=== PATIENT | male | born 1955 | race African-American/Black ===

== ENCOUNTER 2016-07-31 21:44 | Inpatient (IN) | payer OTHER, MEDICAID ==
[~2016-07-31] VITALS: Ht 175.3 cm; Wt 111.0 kg
--- NOTE | 2016-07-31 21:49 | ERA ---
ER Documentation Chief Complaint Date/Time DATE: 07/31/16 TIME: 21:49 Chief Complaint Nausea vomiting and diarrhea HPI The patient is a 60-year-old male, presenting to the ER because of nausea, vomiting, diarrhea for the last 10 days, denies abdominal pain. He denies any hematemesis or hematochezia. Denies fever, chills, neck pain, chest pain, dyspnea, abdominal pain, dyspnea, diarrhea. The EMS gave him Zofran IV for nausea then check his glucose that was only 42, he was therefore treated with glucose gel. He does not smoke, has been drinking, denies illicit drug denies recent traveling Past medical history: Hypertension, hypothyroidism Past surgical history: None ROS All systems reviewed and are negative except as per history of present illness. Allergies Allergies: Coded Allergies: No Known Drug Allergies (Verified Allergy, Unknown, 07/31/16) Physical Exam Vitals Vital Signs Date Time Temp Pulse Resp B/P Pulse Ox O2 Delivery O2 Flow Rate FiO2 08/01/16 01:29 97.4 80 18 121/60 97 Nasal Cannula 07/31/16 22:00 97.2 91 18 141/64 98 Physical Exam Const: No acute distress. Head: Atraumatic. Eyes: Normal Conjunctiva. ENT: Normal External Ears, Nose and Mouth. Neck: Full range of motion. No meningismus. Resp: Clear to auscultation bilaterally. Cardio: Regular rate and rhythm, no murmurs. Abd: Soft, non distended, normal bowel sounds, non tender. Skin: No petechiae or rashes. Back: No midline or flank tenderness. Ext: No cyanosis, or edema. Neur: Awake and alert. No focal deficit Psych: Normal Mood and Affect. Result Diagram: 07/31/16221607/31/162216 Results 24 hrs Laboratory Tests Test 07/31/16 21:50 07/31/16 22:17 07/31/16 22:22 08/01/16 00:37 Bedside Glucose 48mg/dL 142mg/dL White Blood Count 8.010^3/ul Red Blood Count 2.9910^6/ul Hemoglobin 9.9g/dl Hematocrit 31.2% Mean Corpuscular Volume 104.3fl Mean Corpuscular Hemoglobin 33.1pg Mean Corpuscular Hemoglobin Concent 31.7g/dl Red Cell Distribution Width 15.4% Platelet Count 27991^3/UL Mean Platelet Volume 10.4fl Neutrophils % 71.0% Lymphocytes % 14.7% Monocytes % 13.3% Eosinophils % 0.3% Basophils % 0.1% Nucleated Red Blood Cells % 1.3/100WBC Neutrophils # 5.710^3/ul Lymphocytes # 1.210^3/ul Monocytes # 1.110^3/ul Eosinophils # 0.010^3/ul Basophils # 0.010^3/ul Nucleated Red Blood Cells # 0.110^3/ul Prothrombin Time 15.1Sec Prothrombin Time Ratio 1.2 INR International Normalized Ratio 1.18 Activated Partial Thromboplast Time 35.1Sec Sodium Level 140mmol/L Potassium Level 3.3mmol/L Chloride Level 104mmol/L Carbon Dioxide Level < 5mmol/L Anion Gap 34 Blood Urea Nitrogen 36mg/dl Creatinine 3.56mg/dl Glucose Level 139mg/dl Calcium Level 8.3mg/dl Total Bilirubin 0.0mg/dl Direct Bilirubin 0.00mg/dl Indirect Bilirubin 0.0mg/dl Aspartate Amino Transf (AST/SGOT) 180IU/L Alanine Aminotransferase (ALT/SGPT) 61IU/L Alkaline Phosphatase 135IU/L Total Protein 9.5g/dl Albumin 4.9g/dl Globulin 4.60g/dl Albumin/Globulin Ratio 1.06 Lipase 183U/L Urine Opiates Screen NEGATIVE Urine Barbiturates NEGATIVE Urine Amphetamines Screen NEGATIVE Urine Benzodiazepines Screen NEGATIVE Urine Cocaine Screen NEGATIVE Urine Cannabinoids NEGATIVE Ethyl Alcohol Level 131.0mg/dl Bedside Urine pH (LAB) 5.0 Bedside Urine Protein (LAB) 3+ Bedside Urine Glucose (UA) Negative Bedside Urine Ketones (LAB) 1+ Bedside Urine Blood 3+ Bedside Urine Nitrite (LAB) Negative Bedside Urine Leukocyte Esterase (L Negative Test 08/01/16 01:17 Bedside Glucose 86mg/dL Current Medications Medications (Trade) Dose Ordered Sig/James Route PRN Reason Start Time Stop Time Status Last Admin Dose Admin Ondansetron HCl (Zofran Inj) 4 mg ONCE STAT IV 07/31/16 21:58 07/31/16 21:59 DC 07/31/16 22:19 Dextrose (D50w Syringe) 50 ml ONCE ONCE IV 07/31/16 22:00 07/31/16 22:01 DC 07/31/16 22:08 Acetaminophen/ Hydrocodone Bitart (Caldwell (10/325)) 1 tab ONCE ONCE PO 08/01/16 01:00 08/01/16 01:01 DC 08/01/16 01:00 Ondansetron HCl (Zofran Odt) 4 mg ONCE ONCE ODT 08/01/16 00:50 08/01/16 00:51 DC 08/01/16 01:00 Procedures/MDM EKG: Read by emergency physician Rate/Rhythm: Normal Sinus Rhythm 85 beats/min QRS, ST, T-waves: No ST elevation, no T inversion, first-degree AV block, prolonged QT, incomplete right bundle branch block, inferior ST and T abnormality Impression: Abnormal EKG MEDICAL MAKING DECISION: The patient is a 60-year-old male, presenting with acute hypoglycemia, acute vomiting diarrhea, acute hypokalemia, acute kidney injury, acute alcohol abuse . He was treated with Zofran 4 mg IV for nausea, Accu-Chek remained low in the ER at 48, he was therefore treated with 1 amp of D50 IV, Caldwell 10 mg for his discomfort with good response. The differential diagnoses considered include but are not limited to esophagitis , cholelithiasis, cholecystitis, cystitis, pancreatitis, hepatitis, gastritis, peptic ulcer disease, gastric ulcer, appendicitis, diverticulitis, cholangitis, choledocholithiasis, partial small bowel obstruction. Departure Diagnosis: Primary Impression: Hypoglycemia Additional Impressions: Vomiting and diarrhea Hypokalemia Acute kidney injury Alcohol abuse Anemia Abnormal LFTs Condition: Stable Comments I discussed the findings with the patient. I discussed the patient with the on- call hospitalist Dr. Willson at 12:40 AM who was made aware of the lab, the treatment, the patient condition. The patient is admitted to telemetry BRUCE ZUÑIGA MD July 31, 2016 21:49
[2016-07-31] MEDS ORDERED: DEXTROSE 50% 50 ML SYRINGE ONE (21:52)
[2016-07-31] MEDS ORDERED: ONDANSETRON 4 MG INJ IV STA (21:58)
[2016-07-31] MEDS ORDERED: DEXTROSE 50% 50 ML SYRINGE IV ONE (22:00)
[2016-07-31 22:31] LABS: ADD SCAN DIFF NO
[2016-07-31 22:32] LABS: BASOPHILS % 0.1 % (0.0-2.0); EOSINOPHILS % 0.3 % (0.0-7.0); HEMATOCRIT 31.2 % (42.0-52.0); HEMOGLOBIN 9.9 g/dl (14.0-18.0); LYMPHOCYTES # 1.2 10^3/ul (0.8-2.9); LYMPHOCYTES % 14.7 % (15.0-51.0); MEAN CORPUSCULAR HEMOGLOBIN 33.1 pg (29.0-33.0); MEAN CORPUSCULAR HGB CONC 31.7 g/dl (32.0-37.0); MEAN CORPUSCULAR VOLUME 104.3 fl (82.0-101.0); MEAN PLATELET VOLUME 10.4 fl (7.4-10.4); MONOCYTE # 1.1 10^3/ul (0.3-0.9); MONOCYTES % 13.3 % (0.0-11.0); NEUTROPHIL # 5.7 10^3/ul (1.6-7.5); NUCLEATED RED BLOOD CELLS # 0.1 10^3/ul (0.0-0.0); NUCLEATED RED BLOOD CELLS% 1.3 /100WBC (0.0-0.0); PLATELET COUNT 172 10^3/UL (140-415); RED BLOOD COUNT 2.99 10^6/ul (4.70-6.10); RED CELL DISTRIBUTION WIDTH 15.4 % (11.5-14.5)
[2016-07-31 22:47] LABS: INR 1.18; PROTIME 15.1 Sec (12.2-14.2); PT RATIO 1.2
[2016-07-31 22:48] LABS: PARTIAL THROMBOPLASTIN TIME 35.1 Sec (25.0-35.0)
[2016-07-31 22:57] LABS: ALBUMIN 4.9 g/dl (3.3-4.9); CHLORIDE 104 mmol/L (97-110); SODIUM 140 mmol/L (135-144)
[2016-07-31 22:58] LABS: POTASSIUM 3.3 mmol/L (3.5-5.1)
[2016-07-31 23:00] LABS: ALANINE AMINOTRANSFERASE 61 IU/L (13-69); ALBUMIN/GLOBULIN RATIO 1.06; ALKALINE PHOSPHATASE 135 IU/L (42-121); ASPARTATE AMINO TRANSFERASE 180 IU/L (15-46); BLOOD UREA NITROGEN 36 mg/dl (7-20); CREATININE 3.56 mg/dl (0.61-1.24); GLUCOSE 139 mg/dl (70-220); TOTAL PROTEIN 9.5 g/dl (6.1-8.1)
[2016-07-31 23:01] LABS: CALCIUM 8.3 mg/dl (8.4-10.2)
[2016-07-31 23:26] LABS: ANION GAP 34 (8-16)
[2016-07-31 23:28] LABS: CARBON DIOXIDE < 5 mmol/L (21-31)
[2016-08-01] VITALS (81 sets, daily range): BP systolic 67–177; BP diastolic 40–82; PULSE 44–97; RESP 14–32; TEMP 97.4; Ht 175.3 cm; Wt 111.0 kg
[2016-08-01 00:36] LABS: URINE BLOOD (Dip) POC 3+ (NEGATIVE)
[2016-08-01] MEDS ORDERED: ONDANSETRON (ODT) 4 MG TAB ODT ONE (00:50)
[2016-08-01] MEDS ORDERED: HYDROCODONE/APAP (10/325) TAB PO ONE (01:00)
[2016-08-01 01:44] LABS: BARBITURATES NEGATIVE (NEGATIVE); BENZODIAZEPINES NEGATIVE (NEGATIVE); CANNABINOIDS NEGATIVE (NEGATIVE); COCAINE NEGATIVE (NEGATIVE); OPIATES NEGATIVE (NEGATIVE)
[2016-08-01] MEDS ORDERED: ONDANSETRON 4 MG INJ IV PRN (03:00)
[2016-08-01] MEDS ORDERED: METOCLOPRAMIDE 10 MG INJ IV PRN (03:00)
[2016-08-01] MEDS ORDERED: NACL 0.9% 3 ML SYG IV SCH (03:00)
--- NOTE | 2016-08-01 03:05 | RADRPT ---
PROCEDURE: CT ABDOMEN/PELVIS WITHOUT CONTRAST CLINICAL INDICATION: 60-year-old male with abdominal pain, nausea, vomiting and diarrhea. TECHNIQUE: The study was performed utilizing a [employer]3 TV VCT 64-slice CT scanner. Direct axia l sections were obtained through the abdomen and pelvis without the use of intravenous contrast mate rial. Sagittal and coronal reformations were obtained. One or more of the following dose reduction t echniques were utilized: automated exposure control, adjustment of the mA and/or kV according to pat ient's size or use of iterative reconstruction technique. The images [facility] CTD/vol = 42.1 mGy; Total Exam DLP = 1816.3 mGy-cm. COMPARISON: None. FINDINGS: There is mild bibasilar subsegmental atelectasis. There is no evidence for significant pleural effu sheree. The liver has a normal contour with increased size having a maximal length of 29.7 cm. There is marked diffuse decreased density throughout the liver consistent with fatty infiltration but wit hout focal areas of abnormal density. No intrahepatic nor extrahepatic biliary ductal dilatation is seen. The gallbladder has diffuse increased density most likely representing sludge without evidence for calcified stones with a thickened wall measuring up to 5.8 mm but without pericholecystic fluid . The pancreas is without areas of abnormal attenuation. The spleen is identified and has a normal size without abnormal density. The adrenal glands are unremarkable. The kidneys are without abnorma l density. No hydroureteronephrosis nor nephroureterolithiasis is evident. The urinary bladder conta ins a small volume of urine with a thickened wall measuring up to 15 mm. The stomach is distended with fluid. There are mildly dilated fluid-filled loops of small bowel without transition point. T here is marked diffuse thickening of the colon without obstruction. Multiple small diverticula are seen within the descending and sigmoid colon without surrounding inflammatory changes. There is no e vidence for bowel obstruction. The appendix is visualized and is without abnormal thickening or ananya rounding inflammatory reaction. The prostate is not enlarged. There is no significant pelvic free fl uid. The aortoiliac vessels calcified but without aneurysmal dilatation. Degenerative changes are pr esent within the spine. IMPRESSION: 1. Hepatomegaly with marked fatty infiltration. 2. Sludge within the gallbladder with thickened wall. 3. Distended fluid filled stomach with mild fluid throughout the small bowel and marked thickening of the colon without obstruction suggestive of a enterocolitis. 4. Mild descending and sigmoid colon diverticulosis. 5. No CT evidence for appendicitis. 6. Vascular calcifications. 7. Degenerative changes within the spine. .Bk Krueger MD, Date Time Electronically viewed and signed by .Bk Krueger MD, on 08/01/2016 03:04 .Serjio/
[2016-08-01 03:31] LABS: ACETAMINOPHEN < 10.0 ug/ml (10.0-30.0); SALICYLATE < 1.0 mg/dl (5.0-30.0)
--- NOTE | 2016-08-01 04:02 | RADRPT ---
PROCEDURE: US Retroperitoneum. CLINICAL INDICATION: Renal failure. TECHNIQUE: Multiple sonographic images of the retroperitoneum were obtained. Evaluation of the ki dneys and bladder was performed using a curved array transducer. The images were reviewed on a PACS workstation. COMPARISON: CT from the same day FINDINGS: The right kidney measures 10 centimeters and the left kidney measures 9.7 centimeters. No hydronep hrosis or renal calculi are seen. The kidneys are normal in echogenicity. The bladder was near ly empty. IMPRESSION: Unremarkable ultrasound the kidneys and bladder.. RPTAT: HLBE Physician Klaudia Date Time Electronically viewed and signed by Physician Klaudia on 08/01/2016 04:02 KALLI/
[2016-08-01 04:10] LABS: THYROID STIMULATING HORMONE 21.7 MIU/L (0.465-4.680)
[2016-08-01 04:11] LABS: T3 UPTAKE 29.6 % (23.5-40.5)
[2016-08-01] MEDS: SOD CHLORIDE 0.9% 1,000 ML IV SCH ×2 (04:37→09:25)
--- NOTE | 2016-08-01 05:17 | HP ---
Date/Time of Note Date/Time of Note DATE: 08/01/16 TIME: 04:50 Assessment/Plan VTE Prophylaxis VTE Prophylaxis Intervention: heparin Assessment/Plan Chief Complaint/Hosp Course This is a 60-year-old male being admitted to the telemetry service for: #1 Metabolic acidosis: Gastrointestinal intestinal losses versus renal losses versus other etiology. At the current time will provide patient with IV fluid hydration with normal saline, bolus and maintenance.. Will consult nephrology for further fluid management as well as electrolyte management. Serial lactate levels. #2 acute kidney failure: Creatinine is 3.5. Patient denies any history of any kidney issues and there are no previous records available at this time. We will continue IV fluid hydration this time. We will order urine chemistry labs. Will also order renal ultrasound. Will consult nephrology. #3 hypoglycemia: Patient denies any previous history of diabetes. He was given an amp of D50 in the ER which subsequently increased his blood sugars 230. We will continue to monitor his blood sugars. Will order C-peptide and insulin levels to assess for any underlying etiology of hyper insulin secretion. In the setting of the patient having acute kidney injury as well as GI losses and not eating for the last 10 days this very well likely could be related to that. #4: Persistent diarrhea: We will continue IV fluid hydration at this time. We will check stool studies for ova and parasites and fecal occult blood. Patient denies any recent antibiotic use. However we will check a C. difficile. Fecal leukocytes: Consult GI. Consider antibiotics if indicated. #5 Macrocytic anemia: Hemoglobin right now is 9.9 with an MCV of 104. Patient does have a history of alcohol use though he states he only drinks occasionally. However on admission his alcohol level was 131. Will check a vitamin B12 and folate level. #6 Alcohol use: Patient denies that he uses excessive amounts of alcohol as he states he only drinks about 4 beers a week. On admission his blood alcohol level is 131. Right now will give patient banana bag daily. Monitor for signs of any DTs. Ativan as needed. #7 hypothyroidism: We will check a TSH level and thyroid studies. Patient currently does not recall medications he is on will confirm in the morning with the patient. #8 gout: Check uric acid level. #9 hypokalemia: Replete #10 DVT and GI prophylaxis: Heparin subcu, Protonix Problems: HPI/ROS Admit Date/Time Admit Date/Time August 01, 2016 at 00:50 Hx of Present Illness Chief complaint: Diarrhea 10 days, vomiting 1 day The patient is a 60-year-old male, presenting to the ER because of nausea, diarrhea for the last 10 days and vomiting 1 day, denies abdominal pain. He denies any hematemesis or hematochezia. Denies fever, chills, neck pain, chest pain, dyspnea, abdominal pain, dyspnea, diarrhea. The EMS gave him Zofran IV for nausea then check his glucose that was only 42, he was treated with glucose gel. He denies any recent travel or sick contacts. Allergies: NKDA Medications: Patient currently does not remember his medications. ROS Const: As per HPI Eyes : No pain discharge or redness or change in visual acuity ENT: No pain, sore throat, congestion, congestion, dysphagia or discharge Respiratory: No shortness of breath, cough, sputum, wheezing, or pleuritic pain Cardiovascular: No chest pain, palpitation, PND, or edema GI : As per HPI Genitourinary: No dysuria, hematuria, flank pain , discharge or CVA tenderness Musculoskeletal: No joint pain, back pain, neck pain, restricted range of motion in neck or joints Skin: No rash, bruising or hives Neuro: No headache, dizziness, syncope, seizure, focal weakness Endocrine: No polyuria, polydipsia, temperature intolerance Psych: No hallucination, depression, anxiety or suicidal ideation PMH/Family/Social Past Medical History Hypertension, gout, hypothyroid Past Surgical History Past Surgical Hx: no surgical history Family History Significant Family History: hypertension (Mom, dad) Social History Alcohol Use: occasionally Smoking Status: Never smoker Drug Use: none Exam/Review of Systems Vital Signs Vitals Vital Signs Date Time Temp Pulse Resp B/P Pulse Ox O2 Delivery O2 Flow Rate FiO2 08/01/16 04:33 74 19 101/62 94 08/01/16 03:26 Room Air 08/01/16 01:29 97.4 Exam Exam General: This is a 60-year-old male laying comfortably in bed he is somnolent however he is easily arousable. HEENT: Atraumatic, normocephalic. The pupils are equal, round and reactive. Extraocular motor are intact Neck: Supple with full range of motion. No rigidity or meningismus Chest: Nontender Lungs: Clear to auscultation bilaterally no crackles rales or wheezing Heart: Normal S1-S2, Regular rhythm and rate. No overt murmurs appreciated Abdomen: Soft, mild tenderness to palpation of the left upper quadrant, normal bowel sounds. Extremities: Normal to inspection, no edema no cyanosis Neurologic: Normal mental status, speech normal, cranial nerves II through XII are intact, motor and sensory are intact, no focal weakness Additional Comments EKG: Rate/Rhythm: Normal Sinus Rhythm 85 beats/min QRS, ST, T-waves: No ST elevation, no T inversion, first-degree AV block, prolonged QT, incomplete right bundle branch block, inferior ST and T abnormality As per ED physician augmentation Labs Result Diagram: 07/31/16221607/31/162216 Medications Medications Current Medications Sodium Chloride (NS) 1,000 ml @ 75 mls/hr [id number] IV Last administered on 08/01t 04:37; Admin Dose 75 MLS/HR; Start 08/01/16 at 02:41 Lorazepam (Ativan) 0.5 mg Q6H PRN IV ANXIETY; Start 08/01/16 at 03:00 Ondansetron HCl (Zofran Inj) 4 mg Q6H PRN IV NAUSEA AND/OR VOMITING; Start at 03:00 Metoclopramide HCl (Reglan) 10 mg Q6H PRN IV NAUSEA AND/OR VOMITING; Start at 03:00 Acetaminophen (Tylenol Tab) 650 mg Q6H PRN PO PAIN LEVEL 1-3 OR FEVER; Start at 03:00 Pantoprazole (Protonix Iv) 40 mg DAILY@06 IV ; Start 08/01/16 at 06:00 Heparin Sodium (Porcine) (Heparin (5000 Units/0.5 ml)) 5,000 unit Q8 SC ; Start 08/01/16 at 06:00 RIOS BERNAL August 01, 2016 05:00
--- NOTE | 2016-08-01 05:54 | EN ---
Date/Time of Note Date/Time of Note DATE: 08/01/16 TIME: 05:50 ER Progress Note CODE BLUE The patient is a 60-year-old male went to cardiac arrest. I was called to intubate the patient. His physician Dr. Willson was at the bedside On arrival, CPR was in progress. He did receive epinephrine 1 mg IV due to asystole, 1 D50 IV and 1 NaHCO3 IV with ROSC. Please see the resuscitation record for detailed information He was intubated immediately with any difficulty Endotracheal Intubation by me: Pre assessment performed. See preceding note for details. Pre-oxygenation performed with 100% oxygen RSI: Performed w/o complication or hypoxic events. Medications as ordered. Blade: [place] Scope ET Tube: 7.5 cm Depth: 23 cm at the lip Intubation confirmed by colorimetric CO2, equal breath sounds, quiet over the stomach. Chest X-ray is pending and will be reviewed by the admitting physician Dr. Willson Impression: Acute cardiac arrest Disposition: I will transfer the care back to his physician Dr. Willson who was at the bedside. BRUCE ZUÑIGA MD August 01, 2016 05:54
[2016-08-01] MEDS ORDERED: PANTOPRAZOLE 40 MG INJ IV SCH (06:00)
[2016-08-01] MEDS ORDERED: POTASSIUM CHLORIDE 250 ML IV ONE (06:30)
[2016-08-01] MEDS ORDERED: ACETAMINOPHEN 650 MG SUPP PR PRN (06:30)
--- NOTE | 2016-08-01 06:45 | RADRPT ---
PROCEDURE: XR Chest. CLINICAL INDICATION: POST INTUBATION TECHNIQUE: Single frontal view of the chest was obtained COMPARISON: None FINDINGS: An endotracheal tube and nasogastric tube are present in satisfactory position. The heart is enlarged with fullness in the superior mediastinum. This is likely exaggerated by the supine AP nature of the film. There are bilateral perihilar infiltrates. The pleural spaces are clear. IMPRESSION: 1. Endotracheal tube and nasogastric tube in satisfactory position. 2. Cardiomegaly with fullness in the superior mediastinum. This is likely exaggerated by the supin e AP nature of the film. 3. Bilateral perihilar infiltrates. RPTAT:AAJJ Physician Aiden Date Time Electronically viewed and signed by Physician Aiden on 08/01/2016 06:45 /
[2016-08-01] MEDS ORDERED: NA BICARBONATE 8.4% 50 ML SYG ONE ×2 (06:50→07:00)
[2016-08-01] MEDS: SODIUM BICARBONATE (IV ADD) 150 MEQ in DEXTROSE 5% 850 ML IV SCH ×2 (06:56→18:14)
[2016-08-01] MEDS ORDERED: ROCURONIUM 50 MG INJ ONE (07:00)
[2016-08-01] MEDS ORDERED: POTASSIUM CL ONE (07:00)
[2016-08-01] MEDS ORDERED: ETOMIDATE 20 MG INJ ONE (07:00)
[2016-08-01] MEDS ORDERED: SOD CHLORIDE 0.9% 1,000 ML IV ONE (07:00)
[2016-08-01] MEDS ORDERED: DEXTROSE 50% 50 ML SYRINGE ONE (07:00)
[2016-08-01] MEDS ORDERED: SW ONE (07:00)
[2016-08-01] MEDS ORDERED: EPINEPHrine 0.1 MG/ML SYG ONE (07:00)
[2016-08-01] MEDS ORDERED: NA BICARBONATE 8.4% 50 ML SYG IV ONE (07:00)
[2016-08-01 09:00] LABS: AADO2 Arterial 604.9 mmHg (7.0-24.0); Allen Test ACCEPTAB; Arterial Base Excess -17.6 mmol/L (-3.0-3); Arterial COHb 0.3 % (0.0-3.0); Arterial Fraction of Oxyhgb 87.8 % (93.0-99.0); Arterial MetHb 0.8 % (0.0-1.5); Arterial Total Hemglobin 10.1 g/dl (12.0-18.0); MODE VENT - AC
[2016-08-01] MEDS ORDERED: MULTIVITAMINS 10 ML, THIAMINE 100 MG, FOLIC ACID 1 MG in SOD CHLORIDE 0.9% 1,000 ML IVPB SCH (09:00)
[2016-08-01] MEDS ORDERED: NA BICARBONATE 8.4% 50 ML SYG IV STA (09:07)
[2016-08-01] MEDS: PANTOPRAZOLE 40 MG INJ IV SCH ×2 (09:18→17:36)
[2016-08-01 09:25] LABS: ADD SCAN DIFF NO
[2016-08-01 09:36] LABS: ABNORMAL IP MESSAGE 1; HEMATOCRIT 27.2 % (42.0-52.0); HEMOGLOBIN 9.1 g/dl (14.0-18.0); MEAN CORPUSCULAR HEMOGLOBIN 34.3 pg (29.0-33.0); MEAN CORPUSCULAR HGB CONC 33.5 g/dl (32.0-37.0); MEAN CORPUSCULAR VOLUME 102.6 fl (82.0-101.0); MEAN PLATELET VOLUME 10.4 fl (7.4-10.4); PLATELET COUNT 143 10^3/UL (140-415); RED BLOOD COUNT 2.65 10^6/ul (4.70-6.10); RED CELL DISTRIBUTION WIDTH 14.8 % (11.5-14.5); WHITE BLOOD COUNT 1.4 10^3/ul (4.8-10.8)
[2016-08-01 10:00] LABS: ALBUMIN 4.2 g/dl (3.3-4.9); POTASSIUM 3.3 mmol/L (3.5-5.1)
[2016-08-01] MEDS ORDERED: NORepinephrine 8MG/250 ML (PMX 250 ML IV SCH (10:00)
[2016-08-01 10:02] LABS: CREATININE 3.48 mg/dl (0.61-1.24)
[2016-08-01 10:03] LABS: ALBUMIN/GLOBULIN RATIO 1.2; BILIRUBIN,INDIRECT 0.1 mg/dl (0-1.1); BILIRUBIN,TOTAL 0.1 mg/dl (0.2-1.3); CALCIUM 7.3 mg/dl (8.4-10.2); TOTAL PROTEIN 7.7 g/dl (6.1-8.1)
[2016-08-01 10:04] LABS: CHOL/HDL RATIO 4.5 RATIO
[2016-08-01 10:05] LABS: MAGNESIUM 0.8 mg/dl (1.7-2.5)
[2016-08-01] MEDS: PROPOFOL 100 ML IV SCH ×4 (10:13→22:54)
[2016-08-01] MEDS: HEPARIN 5,000 UNIT/0.5 ML VIAL SC SCH ×3 (10:16→22:28)
--- NOTE | 2016-08-01 10:21 | OPR ---
DATE OF OPERATION: 08/01/2016 PREOPERATIVE DIAGNOSIS: Hypotension. POSTOPERATIVE DIAGNOSIS: Hypotension. OPERATION PERFORMED: Left femoral central line placement. SURGEON: Baltazar Casillas MD ANESTHESIA: Local. CONSENT: Risks, benefits, complications, alternative therapies explained to the patient and the [facility], consent obtained. OPERATIVE TECHNIQUE: The patient was placed in supine position, prepped and draped in the usual garry rile fashion. A dilator was used to dilate the subcutaneous tissues. Central line advanced over th e dilator, secured to skin using silk sutures. The patient tolerated the procedure well. Dictated By: BALTAZAR CASILLAS MD FM/NTS Conf#: [id number] DID#: [id number]
[2016-08-01] MEDS ORDERED: MAGNESIUM SULFATE 4 GM in SOD CHLORIDE 0.9% 100 ML IV ONE (10:30)
--- NOTE | 2016-08-01 10:44 | CONS ---
DATE OF ADMISSION: 08/01/2016 DATE OF CONSULTATION: 08/01/2016 TYPE OF CONSULTATION: Nephrology. REASON FOR CONSULTATION: Acute kidney injury, severe acidemia. PHYSICIAN REQUESTING CONSULT: Fco Willson MD HISTORY OF PRESENT ILLNESS: This is a 60-year-old male with a past medical history of hypertension, history of gout, hypothyroidism who presents to [facility] with nausea, vomiting and diarrhea for 10 days. The patient, in the emergency room, stated that symptoms began several da ys ago and have progressively gotten worse. The patient upon arrival in the emergency room, had ini tial laboratory data drawn, which showed sodium 140, potassium 3.3, BUN 36, creatinine 3.56. White count 8.0, hemoglobin 9.9. In the emergency room, the patient was given IV fluids, sodium bicarbona te. The patient was subsequently admitted to telemetry. However, early in the morning, the patient underwent a cardiac arrest. He was given epinephrine 1 mg with spontaneous return of circulation. The patient was subsequently intubated and transferred over to the intensive care unit. There have been no reports of hemoptysis, hematemesis or hematochezia. In terms of the patient's renal history, the patient's baseline renal function is unknown. On admis sheree, the patient had a creatinine of 3.56 mg/dL. A repeat renal panel is pending to see if there w as any significant improvement during resuscitation. The patient has minimal urinary output in his Silver catheter. There have been no reports of any rashes or frothy urine. PAST MEDICAL HISTORY: As stated above, history of hypertension, history of gout. FAMILY HISTORY: Unknown. SOCIAL HISTORY: Occasional alcohol use. ALLERGIES: NO KNOWN DRUG ALLERGIES. PAST SURGICAL HISTORY: Unknown. MEDICATIONS: None. REVIEW OF SYSTEMS: Unable to do adequate review of systems as patient is obtunded. Pertinent posit karime as obtained by reviewing medical records, speaking to hospital staff, stated in the HPI, otherw ise negative. PHYSICAL EXAMINATION: VITAL SIGNS: Blood pressure is 85/48, respirations 20, pulse 56, temperature 97.0. HEENT: Head is normocephalic. Pupils are pinpoint but reactive. NECK: Supple. HEART: Regular rate. LUNGS: Show diminished breath sounds at the bases. ABDOMEN: Soft, nontender to palpation. Positive obesity. EXTREMITIES: Negative for clubbing, cyanosis. No edema. DERMATOLOGIC: No rashes. MUSCULOSKELETAL: No joint effusions. NEUROLOGIC: The patient is obtunded. IMAGING STUDIES: Chest x-ray shows cardiomegaly with fullness superior mediastinum, perihilar infil trates. CT scan of the abdomen and pelvis shows hepatomegaly, fatty infiltration, sludge in gallbla dder, distended stomach, possible enterocolitis. Renal ultrasound shows unremarkable ultrasound of the kidneys, no hydronephrosis. LABORATORY DATA: Shows white count 8.0, hemoglobin 9.9, hematocrit 31.2, platelet count is 172. So dium 140, potassium 3.3, chloride 104, BUN 36, creatinine 3.56, bicarbonate less than 5. Urinalysis shows urine sodium less than 13, positive +3 protein. ASSESSMENT AND PLAN: This is a 60-year-old male who presents with: 1. Oliguric acute kidney injury with unknown baseline creatinine. Etiology is secondary to hemodyn amics, volume depletion, possible tubular injury. The patient's initial urinalysis showed a urine s odium of less than 13, suggestive of prerenal state. Additionally, renal ultrasound shows normal ki dneys, no evidence of obstruction. The patient did have a code arrest; therefore, tubular injury ma y also have occurred. Plan at this point is to continue the patient on aggressive IV hydration. We will continue bicarbonate drip at 125 mL/hour. We will repeat a renal panel, repeat urine electrol ytes. We will continue to monitor I's and O's closely. Otherwise, continue supportive care, renall y dose all meds, avoid nephrotoxins. No immediate need for renal replacement therapy at this time. 2. Hypokalemia. The patient is status post potassium chloride. Continue to monitor. 3. Anion gap metabolic acidosis. Etiology may be secondary to acute kidney injury. We will, [facility], check lactic acid level. Continue bicarbonate drip. We will follow up an ABG. 4. Status post code arrest, underlying etiology is unclear, if this is from electrolyte versus prim gian cardiac. We will continue current medical management. Check serial troponins, check 2D echo. Follow up with cardiology. 5. Ventilator-dependent respiratory failure. Vent settings have been reviewed. We will follow up an ABG. 6. Acute diarrhea. Etiology may be secondary to gastroenteritis. Continue to monitor. Consider G I evacuation. 7. Acute encephalopathy. Etiology is toxic metabolic. Continue to monitor. Evaluate for anoxic i njury. 8. Hypothyroidism. Follow up TSH level. Continue Synthroid. 9. History of alcohol use. Monitor closely for any signs of delirium tremens. 10. Hypoglycemia. We will continue to observe. 11. Anemia. Continue to monitor hemoglobin and hematocrit levels. 12. Mineral bone disorder. Monitor calcium and phosphorus levels. Thank you, Dr. Willson, for this interesting consultation. It will be a pleasure to follow the ezio ent with you throughout the hospital course. Dictated By: BALDOMERO TOVAR/NTS Conf#: [id number] DID#: [id number]
--- NOTE | 2016-08-01 11:39 | PN ---
Date/Time of Note Date/Time of Note DATE: 08/01/16 TIME: 11:26 Assessment/Plan VTE Prophylaxis VTE Prophylaxis Intervention: SCD's Lines/Catheters IV Catheter Type (from Nrs): Saline Lock Urinary Cath still in place: Yes Reason Cath still needed: other (indicate) Assessment/Plan Chief Complaint/Hosp Course ASSESSMENT AND PLAN: 1. Status post code arrest, underlying etiology is unclear, if this is from electrolyte versus primary cardiac. We will continue current medical management. Follow-up serial troponins, check 2D echo. Follow up with cardiology. 2. Ventilator dependent respiratory failure Likely secondary to #1, patient is intubated continue vent management cook chef been consulted 3. Acute kidney injury with unknown baseline creatinine. Likely secondary to volume depletion and possible tubular injury. The patient did have a code arrest; therefore, tubular injury may also have occurred. Continue aggressive IV hydration. Continue supportive care, renally dose all meds, avoid nephrotoxins. Nephrology has been consulted, follow-up his recommendations and follow-up renal panel in a.m. 4. Hypokalemia. Repleted with potassium chloride. Continue to monitor. 5. Anion gap metabolic acidosis. Likely secondary to acute kidney injury. Follow-up serial lactic acid level. Continue bicarbonate drip. We will follow up an ABG. Nephrology and pulmonology consulted 6. Acute diarrhea. Etiology may be secondary to gastroenteritis. Continue to monitor. Follow-up stool culture 7. Acute encephalopathy. Etiology is toxic metabolic versus alcohol intoxication. Continue to monitor. Follow-up CT of the brain when patient is more stable 8. Hypothyroidism. Follow up TSH level. Continue Synthroid. 9. History of alcohol use. Monitor closely for any signs of delirium tremens. Will start banana bag status post bicarbonate drip 10. Hypoglycemia. We will continue to observe. 11. Anemia. Continue to monitor hemoglobin and hematocrit levels. 12. Hypomagnesemia. Repleted We will continue monitor patient closely for recommendation management treatment as clinical course Condition: Guarded Second Cutter management and recommendation is appreciated Problems: Subjective 24 Hr Interval Summary Free Text/Dictation Patient is intubated and sedated Vent settin with FiO2 of 100% and PEEP of 8 Sedation of fentanyl Bilateral soft restraints Able to follow commands Exam/Review of Systems Vital Signs Vitals Vital Signs Date Time Temp Pulse Resp B/P Pulse Ox O2 Delivery O2 Flow Rate FiO2 08/01/16 10:45 76 25 120/61 91 Mechanical Ventilator 08/01/16 09:00 100 08/01/16 05:54 97.0 08/01/16 05:00 4.0 Exam General: The patient is morbidly obese, intubated HEENT: Atraumatic, normocephalic. The pupils are equal and round . Neck: Supple Chest: Normal Lungs: Decreased breath sounds bilateral lower lung field, crackles Heart: Normal S1-S2, Regular rhythm and rate. Abdomen: Soft , nontender, nondistended , bowel sounds are present. Extremities: Normal to inspection, +1 edema no cyanosis Neurologic: Sedated,The patient is awake and able to follow simple commands Results Result Diagram: 08/01/1690408/01/16904 Results 24 hrs Laboratory Tests Test 07/31/16 21:50 07/31/16 22:17 07/31/16 22:22 08/01/16 00:37 Bedside Glucose 48 *L 142 White Blood Count 8.0 Red Blood Count 2.99 L Hemoglobin 9.9 L Hematocrit 31.2 L Mean Corpuscular Volume 104.3 H Mean Corpuscular Hemoglobin 33.1 H Mean Corpuscular Hemoglobin Concent 31.7 L Red Cell Distribution Width 15.4 H Platelet Count 172 Mean Platelet Volume 10.4 Neutrophils % 71.0 Lymphocytes % 14.7 L Monocytes % 13.3 H Eosinophils % 0.3 Basophils % 0.1 Nucleated Red Blood Cells % 1.3 H Neutrophils # 5.7 Lymphocytes # 1.2 Monocytes # 1.1 H Eosinophils # 0.0 Basophils # 0.0 Nucleated Red Blood Cells # 0.1 H Prothrombin Time 15.1 H Prothrombin Time Ratio 1.2 INR International Normalized Ratio 1.18 Activated Partial Thromboplast Time 35.1 H Urine Osmolality Urine Random Sodium < 13 L Sodium Level 140 Potassium Level 3.3 L Chloride Level 104 Carbon Dioxide Level < 5 *L Anion Gap 34 H Blood Urea Nitrogen 36 H Creatinine 3.56 H Glucose Level 139 Calcium Level 8.3 L Total Bilirubin 0.0 L Direct Bilirubin 0.00 Indirect Bilirubin 0.0 Aspartate Amino Transf (AST/SGOT) 180 H Alanine Aminotransferase (ALT/SGPT) 61 Alkaline Phosphatase 135 H Total Protein 9.5 H Albumin 4.9 Globulin 4.60 H Albumin/Globulin Ratio 1.06 Lipase 183 Urine Opiates Screen NEGATIVE Urine Barbiturates NEGATIVE Urine Amphetamines Screen NEGATIVE Urine Benzodiazepines Screen NEGATIVE Urine Cocaine Screen NEGATIVE Urine Cannabinoids NEGATIVE Ethyl Alcohol Level 131.0 Bedside Urine pH (LAB) 5.0 Bedside Urine Protein (LAB) 3+ H Bedside Urine Glucose (UA) Negative Bedside Urine Ketones (LAB) 1+ H Bedside Urine Blood 3+ H Bedside Urine Nitrite (LAB) Negative Bedside Urine Leukocyte Esterase (L Negative Test 08/01/16 01:17 08/01/16 02:44 08/01/16 03:58 08/01/16 05:35 Bedside Glucose 86 81 91 Osmolality Thyroid Stimulating Hormone (TSH) 21.700 H Free Thyroxine Index 0.24 L Thyroxine (T4) 0.8 *L Triiodothyronine (T3) Uptake 29.6 Random Cortisol 41.8 Salicylates Level < 1.0 L Acetaminophen Level < 10.0 L Ethyl Alcohol Level 60.0 Test 08/01/16 08:56 08/01/16 09:05 Blood Gas Specimen Source Blood arterial Arterial Blood Date Drawn 08/01/2016 8:40:22 AM Arterial Blood pH (Temp corrected) 7.051 *L Arterial Blood pCO2 (Temp correct) 44.3 Arterial Blood pO2 (Temp corrected) 63.8 L Arterial Blood HCO3 12.0 L Arterial Blood Base Excess -17.6 L Arterial Blood Oxygen Saturation 88.8 L Stanley Test ACCEPTAB Arterial Blood Gas Puncture Site Right Radial Arterial Blood Carboxyhemoglobin 0.3 Arterial Blood Methemoglobin 0.8 Blood Gas A-a O2 Differential 604.9 H Oxyhemoglobin Percent 87.8 L Total Hemoglobin 10.1 L Blood Gas Temperature 37.0 Blood Gas Respiration Rate 20.0 Blood Gas Actual Respiration Rate 20 Blood Gas Modality VENT - AC FiO2 100.0 Blood Gas Tidal Volume 600.0 Blood Gas Low PEEP Setting 3.0 Blood Gas Critical Value Read Back E VAMSI VALDEZ Blood Gas Notified Whom YADIEL Blood Gas Notified Time 08/01/2016 9:00:28 AM White Blood Count 1.4 #L Red Blood Count 2.65 L Hemoglobin 9.1 L Hematocrit 27.2 L Mean Corpuscular Volume 102.6 H Mean Corpuscular Hemoglobin 34.3 H Mean Corpuscular Hemoglobin Concent 33.5 Red Cell Distribution Width 14.8 H Platelet Count 143 Mean Platelet Volume 10.4 Neutrophils % Lymphocytes % Monocytes % Neutrophils # Lymphocytes # Monocytes # Sodium Level 137 Potassium Level 3.3 L Chloride Level 104 Carbon Dioxide Level 12 L Anion Gap 24 #H Blood Urea Nitrogen 38 H Creatinine 3.48 H Glucose Level 196 Hemoglobin A1c 5.0 Lactic Acid Level 6.7 *H Calcium Level 7.3 L Magnesium Level 0.8 *L Total Bilirubin 0.1 L Direct Bilirubin 0.00 Indirect Bilirubin 0.1 Aspartate Amino Transf (AST/SGOT) 144 H Alanine Aminotransferase (ALT/SGPT) 62 Alkaline Phosphatase 102 Total Protein 7.7 # Albumin 4.2 Globulin 3.50 H Albumin/Globulin Ratio 1.20 Triglycerides Level 498 H Cholesterol Level 223 H LDL Cholesterol, Calculated 74 HDL Cholesterol 49 Cholesterol/HDL Ratio 4.5 Medications Medications Current Medications Lorazepam (Ativan) 0.5 mg Q6H PRN IV ANXIETY; Start 08/01/16 at 03:00 Ondansetron HCl (Zofran Inj) 4 mg Q6H PRN IV NAUSEA AND/OR VOMITING; Start at 03:00 Metoclopramide HCl (Reglan) 10 mg Q6H PRN IV NAUSEA AND/OR VOMITING; Start at 03:00 Acetaminophen (Tylenol Tab) 650 mg Q6H PRN PO PAIN LEVEL 1-3 OR FEVER; Start at 03:00 Heparin Sodium (Porcine) 5000 unit 5,000 unit Q8 SC Last administered on 10:16; Admin Dose 5,000 UNIT; Start 08/01/16 at 06:00 Sodium Bicarbonate/ Dextrose (Na Bicarb/D5W) 1,000 ml @ 100 mls/hr Q10H IV Last administered on 08/01/16 06:56; Admin Dose 100 MLS/HR; Start 08/01/16 at 07:00 Acetaminophen (Tylenol Supp) 650 mg Q4H PRN [place] PAIN LEVEL 1-3 OR FEVER; Start 08/01/16 at 06:30 Pantoprazole 40 mg 40 mg BID@06,18 IV Last administered on 08/01/16 09:18; Admin Dose 40 MG; Start 08/01/16 at 06:00 Propofol 100 ml @ 3.33 mls/hr Q12H IV Last administered on 08/01/16 10:13; Admin Dose 3.33 MLS/HR; Start 08/01/16 at 09:30 Norepinephrine 250 ml @ 1.875 mls/ hr TITRATE IV ; Start 08/01/16 at 10:00 Magnesium Sulfate (Magnesium Sulfate 4 Gm/100 ml) 100 ml @ 25 mls/hr ONCE ONCE IVPB Last administered on 08/01/16t 10:29; Admin Dose 25 MLS/HR; Start at 12:00; Stop 08/01/16 at 15:59 KAREN GOMEZ MD August 01, 2016 11:39
--- NOTE | 2016-08-01 11:54 | CONS ---
DATE OF ADMISSION: 08/01/2016 DATE OF CONSULTATION: REASON FOR CONSULT: Cardiac arrest, severe metabolic acidosis. HISTORY OF PRESENT ILLNESS: In summary, this is a 60-year-old gentleman who came into the emergency room yesterday with nausea, vomiting and diarrhea, mild abdominal discomfort, awake, alert and orie nted on admission, found to have severe metabolic acidosis, mild hypoglycemia. Following admission, patient became unresponsive, subsequently had cardiac arrest requiring resuscitation and transferre d to the intensive care unit, placed on mechanical ventilation and received aggressive volume resusc itation with intravenous bicarbonate. PAST MEDICAL HISTORY: Hypertension, hyperlipidemia, gout and hypothyroidism. MEDICATIONS: Per chart. ALLERGIES: NONE. SOCIAL HISTORY: Nonsmoker, occasional alcohol, no history of drug use. FAMILY HISTORY: Noncontributory. REVIEW SYSTEMS REVIEW: A 14-point review of systems currently unable to perform. PHYSICAL EXAMINATION: GENERAL: Moderately obese gentleman, intubated on mechanical ventilation, opening eyes, beginning t o follow commands. VITAL SIGNS: Temperature 98, pulse is 66, blood pressure 100/60, O2 sat 96%, FIO2 of 100%. NECK: Supple. No JVD or lymphadenopathy. CARDIAC: S1, S2, no added sounds or murmurs. CHEST: Diminished air entry bilaterally. ABDOMEN: Soft, nontender. No guarding, no rebound. EXTREMITIES: No cyanosis, clubbing. Edema +1. NEUROLOGIC: Generalized weakness. LABORATORY DATA: White count 1.4, hemoglobin 9.1, platelets of 143. Thyroxine level 0.8. TSH 21.7 . Arterial blood gas, pH 7.05, pCO2 of 44, pO2 of 63 and bicarb of 12. Sodium 140, potassium 3.3, BUN 33, creatinine 3.56. INR 1.8. Urinalysis unremarkable. Alcohol level was elevated at 131. IMPRESSION AND PLAN: 1. Acute renal failure with severe metabolic acidosis, etiology of which remains unclear, possible acute tubular necrosis injury versus prerenal. 2. Respiratory failure secondary to significant metabolic acidosis and subsequent cardiac arrest. Chest x-ray shows evidence of pulmonary edema, likely secondary to renal failure. 3. Severe hyperthyroidism by low TSH, slightly elevated TSH, low T4; will need endocrinology consult. 4. History of ETOH. 5. Incomplete data. PLAN: 1. Continue to correct metabolic acidosis with intravenous bicarbonate and aggressive volume resusc itation. 2. Renal consult. 3. Endocrinology consult. 4. CT head. 5. DVT and GI prophylaxis. Dictated By: NIKOLE FARFAN/CHARLES Conf#: [id number] DID#: [id number]
[2016-08-01 11:57] LABS: AADO2 Arterial 630.7 mmHg (7.0-24.0); Allen Test ACCEPTAB; Arterial Base Excess -11.2 mmol/L (-3.0-3); Arterial COHb 0.1 % (0.0-3.0); Arterial Fraction of Oxyhgb 57.7 % (93.0-99.0); Arterial HCO3 17.3 mmol/L (22.0-26.0); Arterial MetHb 0.7 % (0.0-1.5); Arterial Total Hemglobin 10.1 g/dl (12.0-18.0); MODE VENT - AC
[2016-08-01] MEDS ORDERED: MAGNESIUM SULFATE 4 GM/100 ML 100 ML IVPB ONE (12:00)
--- NOTE | 2016-08-01 12:14 | RADRPT ---
PROCEDURE: Right Upper Quadrant Ultrasound. CLINICAL INDICATION: elevated lfts, PT NPO TECHNIQUE: Multiple real-time images were acquired of the patient's right upper quadrant abdomen a nd retroperitoneum utilizing a high resolution transducer. COMPARISON: None FINDINGS: The liver measures 19.9 cm, and demonstrates increased echogenicity. The main portal vein is patent with proper directional flow. There is no intrahepatic biliary ductal dilatation. The extrahepatic c ommon bile duct measures 3 mm. There is mild ascites. There is no cholelithiasis. There is mild gallbladder wall thickening to 5 mm which is at least in part reactive to the ascites and due to underdistension. There is no pericholecystic fluid. The visualized pancreas is unremarkable. The right kidney measures 11.4 cm and demonstrates normal echotexture. There is no right renal calcu tawanda or hydronephrosis. The visualized abdominal aorta and IVC are grossly unremarkable. IMPRESSION: Hepatomegaly with moderate to severe fatty infiltration. Mild ascites. The main portal vein is patent with proper directional flow. No definite morphologic changes of cirrhosis are identified. Cholelithiasis without definite evidence of acute cholecystitis, as above. Normal CBD. RPTAT: EE Physician Ismael Date Time Electronically viewed and signed by Physician Ismael on 08/01/2016 12:13 /
--- NOTE | 2016-08-01 12:20 | RADRPT ---
PROCEDURE: XR Chest. CLINICAL INDICATION: PULMONARY EDEMA TECHNIQUE: Single frontal view of the chest was obtained. COMPARISON: None. FINDINGS: The tip of an endotracheal tube is noted 8.2 cm above the shelley. The tip of an enteric tube is noted in the stomach. The heart and mediastinum are within normal limits. There is a layering left pleural effusion and retrocardiac opacity due to atelectasis, infiltrate, a nd / or effusion. There is mild to moderate prominence of interstitial markings, likely due to pulmonary vascular mya estion. There is an opacity in the right lower lung zone which may be due to more focal congestive c hanges although an underlying infiltrate cannot be excluded. IMPRESSION: Layering left pleural effusion and retrocardiac opacity due to atelectasis, infiltrate, and / or eff usion. Mild to moderate pulmonary vascular congestion with a focal opacity in the right lower lung zone whi ch may be due to more focal congestive changes although an infiltrate cannot be excluded, possibly d ue to aspiration pneumonia. Clinical correlation is recommended. Endotracheal tube tip is at the thoracic inlet. Recommend advancement by 4 cm. An enteric tube is noted to project past the diaphragm and is likely in the stomach. These findings were discussed with the nurse taking care of the patient, Mellisa, over the phone on 07/04 at 12:19 PM. RPTAT: EE Physician Ismael Date Time Electronically viewed and signed by Physician Ismael on 08/01/2016 12:20 /
--- NOTE | 2016-08-01 13:00 | CONS ---
Date/Time of Note Date/Time of Note DATE: 08/01/16 TIME: 12:49 Assessment/Plan Assessment/Plan Chief Complaint/Hosp Course PEA cardiac arrest: secondary to severe metabolic acidosis. No VT/VF or EKG changes to suggest primary cardiac etiology at this time but the pt may have an underlying cardiomyopathy. Mg was very low but usually should cause VT/VF. QT mildly prolonged likely due to electrolyte abnormalities. Pt apparently was alert post code. Acute respiratory failure: intubated during code. Now with significant pulm edema/infiltrates worrisome for CHF and maybe even ARDS based on significant oxygenation issues Severe metabolic acidosis: pH remains very low and likely was the culprit for the arrest. Unresponsive to bicarb so will have HD Shock: ?septic +/- cardiogenic component though warm. On low dose levophed Acute renal failure: unclear etiology and will require HD Hypoglycemia Hypothyroidism Diarrhea/n/v/colitis -agree with HD for volume removal -echo -trend trops though expect to be elevated post code -vent management per pulm -HD per nephro Problems: Consultation Date/Type/Reason Admit Date/Time August 01, 2016 at 00:50 Date of Consultation: August 01, 2016 Type of Consultation: Cardiology Reason for Consultation Cardiac arrest Referring Provider: RIOS BERNAL Hx of Present Illness 60 yo M with a h/o hypothyroidism, alcohol use, who presented with 10 days of diarrhea/n/v and was found to have severe metabolic derangements including severe metabolic acidosis (bicarb <5, no PH initially) with hypoglycemia, hypothyroidism, acute renal failure. He was hydrated initially but sustained PEA arrest requiring intubation.ROSC was achieved. Post code pH was 7.0, CXR showed pulmonary edema/infiltrates. The pt's pH minimally improved on a bicarb drip but he remains oliguric and so he will be initiated on HD. Also oxygenation has been a major issue as he is currently being manually ventilated. unable to obtain Past Surgical History Past Surgical Hx: no surgical history Social History Alcohol Use: occasionally Smoking Status: Never smoker Drug Use: none Exam/Review of Systems Vital Signs Vitals Vital Signs Date Time Temp Pulse Resp B/P Pulse Ox O2 Delivery O2 Flow Rate FiO2 08/01/16 11:30 69 21 86/44 71 Mechanical Ventilator 08/01/16 09:00 100 08/01/16 05:54 97.0 08/01/16 05:00 4.0 Exam Constitutional: No alert Head: atraumatic, normocephalic ENMT: intubated Neck: No jvd (unable to assess ) Respiratory: crackles/rales, diminished breath sounds, No clear to auscultation Cardiovascular: regular rate and rhythm, No edema, No systolic murmur Gastrointestinal: soft, No distended Extremities: other (warm) Neurological: No nl mental status, No nl speech Skin: No rash or lesions Results EKG: sinus, nonspecific TW changes and nonspecific IVCD, no ST elevations Result Diagram: 08/01/1690408/01/16904 Results 24 hrs Laboratory Tests Test 07/31/16 21:50 07/31/16 22:17 07/31/16 22:22 08/01/16 00:37 Bedside Glucose 48 *L 142 White Blood Count 8.0 Red Blood Count 2.99 L Hemoglobin 9.9 L Hematocrit 31.2 L Mean Corpuscular Volume 104.3 H Mean Corpuscular Hemoglobin 33.1 H Mean Corpuscular Hemoglobin Concent 31.7 L Red Cell Distribution Width 15.4 H Platelet Count 172 Mean Platelet Volume 10.4 Neutrophils % 71.0 Lymphocytes % 14.7 L Monocytes % 13.3 H Eosinophils % 0.3 Basophils % 0.1 Nucleated Red Blood Cells % 1.3 H Neutrophils # 5.7 Lymphocytes # 1.2 Monocytes # 1.1 H Eosinophils # 0.0 Basophils # 0.0 Nucleated Red Blood Cells # 0.1 H Prothrombin Time 15.1 H Prothrombin Time Ratio 1.2 INR International Normalized Ratio 1.18 Activated Partial Thromboplast Time 35.1 H Urine Osmolality Urine Random Sodium < 13 L Sodium Level 140 Potassium Level 3.3 L Chloride Level 104 Carbon Dioxide Level < 5 *L Anion Gap 34 H Blood Urea Nitrogen 36 H Creatinine 3.56 H Glucose Level 139 Calcium Level 8.3 L Total Bilirubin 0.0 L Direct Bilirubin 0.00 Indirect Bilirubin 0.0 Aspartate Amino Transf (AST/SGOT) 180 H Alanine Aminotransferase (ALT/SGPT) 61 Alkaline Phosphatase 135 H Total Protein 9.5 H Albumin 4.9 Globulin 4.60 H Albumin/Globulin Ratio 1.06 Lipase 183 Urine Opiates Screen NEGATIVE Urine Barbiturates NEGATIVE Urine Amphetamines Screen NEGATIVE Urine Benzodiazepines Screen NEGATIVE Urine Cocaine Screen NEGATIVE Urine Cannabinoids NEGATIVE Ethyl Alcohol Level 131.0 Bedside Urine pH (LAB) 5.0 Bedside Urine Protein (LAB) 3+ H Bedside Urine Glucose (UA) Negative Bedside Urine Ketones (LAB) 1+ H Bedside Urine Blood 3+ H Bedside Urine Nitrite (LAB) Negative Bedside Urine Leukocyte Esterase (L Negative Test 08/01/16 01:17 08/01/16 02:44 08/01/16 03:58 08/01/16 05:35 Bedside Glucose 86 81 91 Osmolality Thyroid Stimulating Hormone (TSH) 21.700 H Free Thyroxine Index 0.24 L Thyroxine (T4) 0.8 *L Triiodothyronine (T3) Uptake 29.6 Random Cortisol 41.8 Salicylates Level < 1.0 L Acetaminophen Level < 10.0 L Ethyl Alcohol Level 60.0 Test 08/01/16 08:56 08/01/16 09:05 08/01/16 10:45 08/01/16 11:25 Blood Gas Specimen Source Blood arterial Blood arterial Arterial Blood Date Drawn 08/01/2016 8:40:22 AM 08/01/2016 11:40:41 AM Arterial Blood pH (Temp corrected) 7.051 *L 7.147 *L Arterial Blood pCO2 (Temp correct) 44.3 51.3 H Arterial Blood pO2 (Temp corrected) 63.8 L 31.0 *L Arterial Blood HCO3 12.0 L 17.3 L Arterial Blood Base Excess -17.6 L -11.2 L Arterial Blood Oxygen Saturation 88.8 L 58.2 L Stanley Test ACCEPTAB ACCEPTAB Arterial Blood Gas Puncture Site Right Radial Right Radial Arterial Blood Carboxyhemoglobin 0.3 0.1 Arterial Blood Methemoglobin 0.8 0.7 Blood Gas A-a O2 Differential 604.9 H 630.7 H Oxyhemoglobin Percent 87.8 L 57.7 L Total Hemoglobin 10.1 L 10.1 L Blood Gas Temperature 37.0 37.0 Blood Gas Respiration Rate 20.0 24.0 Blood Gas Actual Respiration Rate 20 25 Blood Gas Modality VENT - AC VENT - AC FiO2 100.0 100.0 Blood Gas Tidal Volume 600.0 600.0 Blood Gas Low PEEP Setting 3.0 8.0 Blood Gas Critical Value Read Back E VAMSI VALDEZ E VAMSI VALDEZ Blood Gas Notified Whom YADIEL COTTO Blood Gas Notified Time 08/01/2016 9:00:28 AM 08/01/2016 11:57:31 AM White Blood Count 1.4 #L Red Blood Count 2.65 L Hemoglobin 9.1 L Hematocrit 27.2 L Mean Corpuscular Volume 102.6 H Mean Corpuscular Hemoglobin 34.3 H Mean Corpuscular Hemoglobin Concent 33.5 Red Cell Distribution Width 14.8 H Platelet Count 143 Mean Platelet Volume 10.4 Neutrophils % Lymphocytes % Monocytes % Neutrophils # Lymphocytes # Monocytes # Sodium Level 137 Potassium Level 3.3 L Chloride Level 104 Carbon Dioxide Level 12 L Anion Gap 24 #H Blood Urea Nitrogen 38 H Creatinine 3.48 H Glucose Level 196 Hemoglobin A1c 5.0 Lactic Acid Level 6.7 *H Calcium Level 7.3 L Magnesium Level 0.8 *L Total Bilirubin 0.1 L Direct Bilirubin 0.00 Indirect Bilirubin 0.1 Aspartate Amino Transf (AST/SGOT) 144 H Alanine Aminotransferase (ALT/SGPT) 62 Alkaline Phosphatase 102 Total Protein 7.7 # Albumin 4.2 Globulin 3.50 H Albumin/Globulin Ratio 1.20 Triglycerides Level 498 H Cholesterol Level 223 H LDL Cholesterol, Calculated 74 HDL Cholesterol 49 Cholesterol/HDL Ratio 4.5 Ammonia 90 H Medications Medications Current Medications Lorazepam (Ativan) 0.5 mg Q6H PRN IV ANXIETY; Start 08/01/16 at 03:00 Ondansetron HCl (Zofran Inj) 4 mg Q6H PRN IV NAUSEA AND/OR VOMITING; Start at 03:00 Metoclopramide HCl (Reglan) 10 mg Q6H PRN IV NAUSEA AND/OR VOMITING; Start at 03:00 Acetaminophen (Tylenol Tab) 650 mg Q6H PRN PO PAIN LEVEL 1-3 OR FEVER; Start at 03:00 Heparin Sodium (Porcine) 5000 unit 5,000 unit Q8 SC Last administered on 10:16; Admin Dose 5,000 UNIT; Start 08/01/16 at 06:00 Sodium Bicarbonate/ Dextrose (Na Bicarb/D5W) 1,000 ml @ 100 mls/hr Q10H IV Last administered on 08/01/16 06:56; Admin Dose 100 MLS/HR; Start 08/01/16 at 07:00 Acetaminophen (Tylenol Supp) 650 mg Q4H PRN [place] PAIN LEVEL 1-3 OR FEVER; Start 08/01/16 at 06:30 Pantoprazole 40 mg 40 mg BID@06,18 IV Last administered on 08/01/16 09:18; Admin Dose 40 MG; Start 08/01/16 at 06:00 Propofol 100 ml @ 3.33 mls/hr Q12H IV Last administered on 08/01/16 10:13; Admin Dose 3.33 MLS/HR; Start 08/01/16 at 09:30 Norepinephrine 250 ml @ 1.875 mls/ hr TITRATE IV Last administered on 11:40; Admin Dose 9.375 MLS/HR; Start 08/01/16 at 10:00 Magnesium Sulfate (Magnesium Sulfate 4 Gm/100 ml) 100 ml @ 25 mls/hr ONCE ONCE IVPB Last administered on 08/01/16 10:29; Admin Dose 25 MLS/HR; Start at 12:00; Stop 08/01/16 at 15:59 SEPIDEH HAN August 01, 2016 13:00
--- NOTE | 2016-08-01 13:07 | RADRPT ---
PROCEDURE: XR Chest 1 View. CLINICAL INDICATION: Shortness of breath, status post intubation. TECHNIQUE: AP view of the chest was obtained. COMPARISON: August 01, 2078 11:53 a.m. FINDINGS: The cardiomediastinal silhouette is within normal limits. Endotracheal tube has been advanced. Tip is now identified approximately 6.3 cm above the shelley. Nasogastric tube has its distal end in the expected location of the stomach and appears stable. Patchy infiltrates throughout the right lung and in the left mid and lower lung are stable. Small left pleural effusion may be present. The osse ous structures are unchanged. IMPRESSION: Endotracheal tube with its tip approximately 6.3 cm above the shelley. Stable infiltrates throughout the right lung and in the left mid and lower lung, possibly combined w ith small left pleural effusion. RPTAT: AA .Pedro Ramirez MD, Date Time Electronically viewed and signed by .Pedro Ramirez MD, on 08/01/2016 13:07 .P/
[2016-08-01] MEDS ORDERED: PHENYLephrine 20MG IN 250 ML 250 ML ONE (14:03)
[2016-08-01] MEDS: PHENYLephrine 20MG IN 250 ML 250 ML IV SCH ×2 (14:18→15:54)
[2016-08-01 14:21] LABS: MONOCYTE # 0.1 10^3/ul (0.3-0.9); NEUTROPHIL # 0.3 10^3/ul (1.6-7.5)
[2016-08-01 14:22] LABS: ANISOCYTOSIS 1+; HYPOCHROMASIA 1+
[2016-08-01] MEDS ORDERED: ALBUMIN HUMAN 25% 100 ML ONE (15:19)
--- NOTE | 2016-08-01 15:22 | OPR ---
DATE OF OPERATION: 08/01/2016 PREOPERATIVE DIAGNOSIS: Renal failure. POSTOPERATIVE DIAGNOSIS: Renal failure. PROCEDURE PERFORMED: Right femoral hemodialysis catheter placement. SURGEON: Aggie Casillas MD ANESTHESIA: Local. CONSENT: Risks, benefits, complications, alternative therapies explained to the patient and the [facility] consent obtained. OPERATIVE TECHNIQUE: The patient was placed in supine position, prepped and draped in usual sterile fashion, 1% lidocaine was used throughout the operation for local anesthesia. Access was gained in the right common femoral vein. Guidewire was advanced through without any difficulty. Subcutane ous tissues were dilated. A 16 cm dialysis catheter advanced into the femoral vein, secured to skin using 2-0 silk sutures. Both ports of the catheter were aspirated and injected using saline soluti on. Patient tolerated procedure well. Dictated By: AGGIE MICHAEL/CHARLES Conf#: [id number] DID#: [id number]
[2016-08-01] MEDS ORDERED: ALBUMIN HUMAN 25% 50 ML IV PRN (15:30)
[2016-08-01] MEDS ORDERED: VANCOMYCIN IV PER PHARMACY XX SCH (16:00)
[2016-08-01 16:03] LABS: FOLATE 2.7 ng/ml (2.8-20.0)
[2016-08-01] MEDS ORDERED: NORepinephrine 8MG/250 ML (PMX 250 ML ONE (16:31)
--- NOTE | 2016-08-01 16:50 | QN ---
Documentation Comment I was called out of the emergency department to room 107 for a CODE BLUE event. The patient was receiving high-quality CPR and being bagged by respiratory therapy. I immediately took over as the CODE BLUE leader and ran the code. Please see the code sheet for full details. The patient received epinephrine 1 mg IV and 1 amp of bicarbonate. The final results of the CODE BLUE was return of spontaneous circulation. HPI: Please note the history and physical exam is limited as the patient is receiving CPR at this time. The patient is in full cardiac arrest. Physical exam: The patient is being bagged by respiratory therapy. There is no movement. GCS is 3. JOHNY LARSEN MD August 01, 2016 16:50
[2016-08-01] MEDS ORDERED: VANCOMYCIN 2 GM in SOD CHLORIDE 0.9% 500 ML IVPB SCH (17:00)
[2016-08-01] MEDS: VASOPRESSIN 60 UNIT in DEXTROSE 5% 57 ML IV SCH (17:35)
[2016-08-01] MEDS: METHYLPREDNISOLONE 125 MG INJ IV SCH (17:36)
[2016-08-01] MEDS: CEFEPIME 1GM/50 ML (PMX) 50 ML IVPB SCH (17:36)
[2016-08-01] MEDS: PHENYLephrine 40 MG in DEXTROSE 5% 496 ML IV SCH ×3 (17:50→22:27)
--- NOTE | 2016-08-01 18:49 | QN ---
Documentation Comment I was called out of the emergency department to room 107 for a second CODE BLUE event. The patient was receiving high-quality CPR and being bagged by respiratory therapy. I immediately took over as the CODE BLUE leader and ran the code. Please see the code sheet for full details. The patient received epinephrine IV. The final results of the CODE BLUE was return of spontaneous circulation. HPI: Please note the history and physical exam is limited as the patient is receiving CPR at this time. The patient is in full cardiac arrest. Physical exam: The patient is being bagged by respiratory therapy. There is no movement. GCS is 3. JOHNY LARSEN MD August 01, 2016 18:49
[2016-08-01] MEDS ORDERED: LEVOTHYROXINE 100 MCG VIAL IV ONE (19:30)
[2016-08-01] MEDS ORDERED: EPINEPHrine 4 MG in SOD CHLORIDE 0.9% 246 ML IV SCH (19:30)
--- NOTE | 2016-08-01 19:31 | CONS ---
Date/Time of Note Date/Time of Note DATE: 08/01/16 TIME: 19: Assessment/Plan Assessment/Plan Problems: (1) Hypothyroidism Status: Chronic Comment: The actual duration of his hypothyroidism is unknown. We are suffering from a deficient database. Regardless he clearly is hypothyroid and does need treatment. I will start him on IV therapy as we do not have access to his GI tract yet. Please note I do not believe that the hypothyroidism in and of itself is the cause of his systemic inflammatory response syndrome with lactic acidosis. In addition given the serum cortisol level pre-arrest while not having received steroids is suggested that his adrenal axis is intact Qualifiers: Qualified Code: E03.9 - Acquired hypothyroidism (2) Lactic acidosis Status: Acute Comment: This is a somewhat worrisome sign. Primary team is working with him. Consultation Date/Type/Reason Admit Date/Time August 01, 2016 at 00:50 Date of Consultation: August 01, 2016 Type of Consultation: Endocrinology Reason for Consultation Hypothyroidism; systemic inflammatory response syndrome with shock Referring Provider: NIKOLE KWON MD, [facility] Hx of Present Illness 60-year-old right-handed -[place] gentleman normally cared for at the [facility] system. He was admitted to the hospital but it had cardiac arrest in the hospital. Please note that his picture actually looked a bit like adrenal insufficiency except that he has a serum cortisol level of 44 prior to his arrest. He had a TSH of 21 with a low free T4 and a low T3. Patient is intubated and unable to give a history although he is able to look and follows rudimentary commands Past Medical History Possible excessive alcohol consumption's; hypothyroidism Past Surgical History Past Surgical Hx: no surgical history Family History Significant Family History: other (Not obtainable) Social History Alcohol Use: occasionally Smoking Status: Never smoker Drug Use: none Exam/Review of Systems Vital Signs Vitals Vital Signs Date Time Temp Pulse Resp B/P Pulse Ox O2 Delivery O2 Flow Rate FiO2 08/01/16 19:00 93 27 108/57 84 Mechanical Ventilator 08/01/16 17:00 100 08/01/16 15:20 96.5 08/01/16 05:00 4.0 Exam Arousable black male intubated in the intensive care unit he does look purposefully to be on either side of the bed and follows rudimentary commands such as blinking her eyes twice Head: atraumatic, normocephalic Neck: non-tender, supple Respiratory: clear to auscultation, normal air movement Cardiovascular: nl pulses, regular rate and rhythm Gastrointestinal: nl liver, spleen, non-tender, soft Results Result Diagram: 08/01/1690408/01/16904 Results 24 hrs Laboratory Tests Test 07/31/16 21:50 07/31/16 22:17 07/31/16 22:22 08/01/16 00:37 Bedside Glucose 48 *L 142 White Blood Count 8.0 Red Blood Count 2.99 L Hemoglobin 9.9 L Hematocrit 31.2 L Mean Corpuscular Volume 104.3 H Mean Corpuscular Hemoglobin 33.1 H Mean Corpuscular Hemoglobin Concent 31.7 L Red Cell Distribution Width 15.4 H Platelet Count 172 Mean Platelet Volume 10.4 Neutrophils % 71.0 Lymphocytes % 14.7 L Monocytes % 13.3 H Eosinophils % 0.3 Basophils % 0.1 Nucleated Red Blood Cells % 1.3 H Neutrophils # 5.7 Lymphocytes # 1.2 Monocytes # 1.1 H Eosinophils # 0.0 Basophils # 0.0 Nucleated Red Blood Cells # 0.1 H Prothrombin Time 15.1 H Prothrombin Time Ratio 1.2 INR International Normalized Ratio 1.18 Activated Partial Thromboplast Time 35.1 H Urine Osmolality Urine Random Sodium < 13 L Sodium Level 140 Potassium Level 3.3 L Chloride Level 104 Carbon Dioxide Level < 5 *L Anion Gap 34 H Blood Urea Nitrogen 36 H Creatinine 3.56 H Glucose Level 139 Calcium Level 8.3 L Total Bilirubin 0.0 L Direct Bilirubin 0.00 Indirect Bilirubin 0.0 Aspartate Amino Transf (AST/SGOT) 180 H Alanine Aminotransferase (ALT/SGPT) 61 Alkaline Phosphatase 135 H Total Protein 9.5 H Albumin 4.9 Globulin 4.60 H Albumin/Globulin Ratio 1.06 Lipase 183 Urine Opiates Screen NEGATIVE Urine Barbiturates NEGATIVE Urine Amphetamines Screen NEGATIVE Urine Benzodiazepines Screen NEGATIVE Urine Cocaine Screen NEGATIVE Urine Cannabinoids NEGATIVE Ethyl Alcohol Level 131.0 Bedside Urine pH (LAB) 5.0 Bedside Urine Protein (LAB) 3+ H Bedside Urine Glucose (UA) Negative Bedside Urine Ketones (LAB) 1+ H Bedside Urine Blood 3+ H Bedside Urine Nitrite (LAB) Negative Bedside Urine Leukocyte Esterase (L Negative Test 08/01/16 01:17 08/01/16 02:44 08/01/16 03:58 08/01/16 05:35 Bedside Glucose 86 81 91 Osmolality Thyroid Stimulating Hormone (TSH) 21.700 H Free Thyroxine Index 0.24 L Thyroxine (T4) 0.8 *L Triiodothyronine (T3) Uptake 29.6 Random Cortisol 41.8 Salicylates Level < 1.0 L Acetaminophen Level < 10.0 L Ethyl Alcohol Level 60.0 Test 08/01/16 08:56 08/01/16 09:05 08/01/16 10:45 08/01/16 11:25 Blood Gas Specimen Source Blood arterial Blood arterial Arterial Blood Date Drawn 08/01/2016 8:40:22 AM 08/01/2016 11:40:41 AM Arterial Blood pH (Temp corrected) 7.051 *L 7.147 *L Arterial Blood pCO2 (Temp correct) 44.3 51.3 H Arterial Blood pO2 (Temp corrected) 63.8 L 31.0 *L Arterial Blood HCO3 12.0 L 17.3 L Arterial Blood Base Excess -17.6 L -11.2 L Arterial Blood Oxygen Saturation 88.8 L 58.2 L Stanley Test ACCEPTAB ACCEPTAB Arterial Blood Gas Puncture Site Right Radial Right Radial Arterial Blood Carboxyhemoglobin 0.3 0.1 Arterial Blood Methemoglobin 0.8 0.7 Blood Gas A-a O2 Differential 604.9 H 630.7 H Oxyhemoglobin Percent 87.8 L 57.7 L Total Hemoglobin 10.1 L 10.1 L Blood Gas Temperature 37.0 37.0 Blood Gas Respiration Rate 20.0 24.0 Blood Gas Actual Respiration Rate 20 25 Blood Gas Modality VENT - AC VENT - AC FiO2 100.0 100.0 Blood Gas Tidal Volume 600.0 600.0 Blood Gas Low PEEP Setting 3.0 8.0 Blood Gas Critical Value Read Back E VAMSI RN E VAMSI VALDEZ Blood Gas Notified Whom YADIEL COTTO Blood Gas Notified Time 08/01/2016 9:00:28 AM 08/01/2016 11:57:31 AM White Blood Count 1.4 #L Red Blood Count 2.65 L Hemoglobin 9.1 L Hematocrit 27.2 L Mean Corpuscular Volume 102.6 H Mean Corpuscular Hemoglobin 34.3 H Mean Corpuscular Hemoglobin Concent 33.5 Red Cell Distribution Width 14.8 H Platelet Count 143 Mean Platelet Volume 10.4 Neutrophils % 24.0 L Lymphocytes % 70.0 H Monocytes % 6.0 Neutrophils # 0.3 L Lymphocytes # 1.0 Monocytes # 0.1 L Differential Comment Giant Platelets OCCASIONAL Hypochromasia 1+ Anisocytosis 1+ Macrocytosis 1+ Sodium Level 137 Potassium Level 3.3 L Chloride Level 104 Carbon Dioxide Level 12 L Anion Gap 24 #H Blood Urea Nitrogen 38 H Creatinine 3.48 H Glucose Level 196 Hemoglobin A1c 5.0 Lactic Acid Level 6.7 *H Calcium Level 7.3 L Magnesium Level 0.8 *L Total Bilirubin 0.1 L Direct Bilirubin 0.00 Indirect Bilirubin 0.1 Aspartate Amino Transf (AST/SGOT) 144 H Alanine Aminotransferase (ALT/SGPT) 62 Alkaline Phosphatase 102 Total Protein 7.7 # Albumin 4.2 Globulin 3.50 H Albumin/Globulin Ratio 1.20 Triglycerides Level 498 H Cholesterol Level 223 H LDL Cholesterol, Calculated 74 HDL Cholesterol 49 Cholesterol/HDL Ratio 4.5 Vitamin B12 Level 519 Folate 2.7 L Ammonia 90 H Test 08/01/16 13:48 08/01/16 16:40 08/01/16 18:10 Lactic Acid Level 7.0 *H 12.2 *H Troponin I 0.059 0.070 Bedside Glucose 166 Medications Medications Current Medications Lorazepam (Ativan) 0.5 mg Q6H PRN IV ANXIETY; Start 08/01/16 at 03:00 Ondansetron HCl (Zofran Inj) 4 mg Q6H PRN IV NAUSEA AND/OR VOMITING; Start at 03:00 Metoclopramide HCl (Reglan) 10 mg Q6H PRN IV NAUSEA AND/OR VOMITING; Start at 03:00 Acetaminophen (Tylenol Tab) 650 mg Q6H PRN PO PAIN LEVEL 1-3 OR FEVER; Start at 03:00 Heparin Sodium (Porcine) 5000 unit 5,000 unit Q8 SC Last administered on 10:16; Admin Dose 5,000 UNIT; Start 08/01/16 at 06:00 Sodium Bicarbonate/ Dextrose (Na Bicarb/D5W) 1,000 ml @ 100 mls/hr Q10H IV Last administered on 08/01/16 18:14; Admin Dose 100 MLS/HR; Start 08/01/16 at 07:00 Acetaminophen (Tylenol Supp) 650 mg Q4H PRN CA PAIN LEVEL 1-3 OR FEVER; Start 08/01/16 at 06:30 Pantoprazole 40 mg 40 mg BID@06,18 IV Last administered on 08/01/16 17:36; Admin Dose 40 MG; Start 08/01/16 at 06:00 Propofol 100 ml @ 3.33 mls/hr Q12H IV Last administered on 08/01/16 15:51; Admin Dose 33.3 MLS/HR; Start 08/01/16 at 09:30 Phenylephrine HCl 40 mg/Dextrose 500 ml @ 0 mls/hr TITRATE IV Last administered on 08/01/16 17:50; Admin Dose 225 MLS/HR; Start 08/01/16 at 16:00 Norepinephrine 16 mg/Dextrose 500 ml @ 0 mls/hr TITRATE IV ; Start 08/01/16 at 16:00 Cefepime HCl (Maxipime 1gm/50 ml (Pmx)) 50 ml @ 100 mls/hr Q24H IVPB Last administered on 08/01/16 17:36; Admin Dose 100 MLS/HR; Start 08/01/16 at 16:00 Methylprednisolone Sodium Succinate 60 mg 60 mg Q6 IV Last administered on 08/01 17:36; Admin Dose 60 MG; Start 08/01/16 at 18:00 Vancomycin HCl 2 gm/Sodium Chloride 500 ml @ 125 mls/hr ONCE IVPB Last administered on 08/01/16 18:27; Admin Dose 125 MLS/HR; Start 08/01/16 at 17:00 ; Stop 08/01/16 at 20:59 Vasopressin 60 unit/Dextrose 60 ml @ 1.2 mls/hr Q12H IV Last administered on 17:35; Admin Dose 1.2 MLS/HR; Start 08/01/16 at 17:30 Epinephrine/ Sodium Chloride (EPINEPHrine/NS) 250 ml @ 3.75 mls/hr TITRATE IV Last administered on 08/01/16 18:50; Admin Dose 3.75 MLS/HR; Start 08/01/16 at 19:30 ERIN MARTÍNEZ MD August 01, 2016 19:31
[2016-08-01 19:32] LABS: AADO2 Arterial 622.4 mmHg (7.0-24.0); Allen Test ACCEPTAB; Arterial Base Excess -12.2 mmol/L (-3.0-3); Arterial COHb 0.3 % (0.0-3.0); Arterial Fraction of Oxyhgb 83.9 % (93.0-99.0); Arterial HCO3 14.3 mmol/L (22.0-26.0); Arterial MetHb 0.8 % (0.0-1.5); Arterial Total Hemglobin 9.2 g/dl (12.0-18.0); MODE VENT - AC
[2016-08-01] MEDS ORDERED: MAGNESIUM SULFATE 2 GM/50 ML 50 ML IVPB ONE (20:30)
[2016-08-01] MEDS ORDERED: MIDAZOLAM 1 MG/ML 2 ML INJ ONE (20:39)
[2016-08-01] MEDS ORDERED: MIDAZOLAM 1 MG/ML 2 ML INJ IV ONE (21:00)
[2016-08-01 21:47] LABS: ALBUMIN 3.6 g/dl (3.3-4.9); ALBUMIN/GLOBULIN RATIO 1.16; BILIRUBIN,DIRECT 0.3 mg/dl (0.00-0.20); BILIRUBIN,INDIRECT 0.2 mg/dl (0-1.1); BILIRUBIN,TOTAL 0.5 mg/dl (0.2-1.3); CALCIUM 6.9 mg/dl (8.4-10.2); CREATININE 3.33 mg/dl (0.61-1.24); TOTAL PROTEIN 6.7 g/dl (6.1-8.1)
[2016-08-01 21:51] LABS: POTASSIUM 2.9 mmol/L (3.5-5.1)
[2016-08-01] MEDS ORDERED: POTASSIUM CHLORIDE 0 ML ONE (22:03)
[2016-08-01] MEDS: POTASSIUM CHLORIDE 250 ML IVPB SCH (22:18)
[2016-08-01] MEDS: CA CARBONATE (250 MG/ML) 5ML CUP NGT SCH (22:27)
[2016-08-02] VITALS (113 sets, daily range): BP systolic 79–178; BP diastolic 51–110; PULSE 78–98; RESP 27–30
[2016-08-02] MEDS: METHYLPREDNISOLONE 125 MG INJ IV SCH ×4 (00:18→17:06)
[2016-08-02] MEDS: PROPOFOL 100 ML IV SCH ×4 (00:49→09:30)
[2016-08-02] MEDS: PHENYLephrine 40 MG in DEXTROSE 5% 496 ML IV SCH ×2 (00:51→04:58)
[2016-08-02] MEDS ORDERED: MAGNESIUM SULFATE 2 GM/50 ML 50 ML IVPB ONE (02:30)
[2016-08-02 02:31] LABS: ADD UMIC YES; UR BILIRUBIN (Dip) 2+ (NEGATIVE); UR BLOOD (Dip) 3+ (NEGATIVE); UR CLARITY CLEAR (CLEAR); UR COLOR YELLOW (YELLOW); UR GLUCOSE (Dip) NEGATIVE (NEGATIVE); UR KETONES (Dip) TRACE (NEGATIVE); UR LEUKOCYTE ESTERASE (Dip) NEGATIVE (NEGATIVE); UR NITRITE (Dip) NEGATIVE (NEGATIVE); UR TOTAL PROTEIN (Dip) 2+ (NEGATIVE); UR UROBILINOGEN (Dip) 0.2 E.U./dL (0.1-1.0)
[2016-08-02 03:18] LABS: ICTOTEST NEGATIVE (NEGATIVE)
[2016-08-02 03:23] LABS: UR BACTERIA MANY; UR SQUAMOUS EPITHELIAL CELL FEW; URINE RBCS >200 /HPF (0)
[2016-08-02] MEDS: POTASSIUM CHLORIDE 250 ML IVPB SCH (03:28)
[2016-08-02] MEDS: SODIUM BICARBONATE (IV ADD) 150 MEQ in DEXTROSE 5% 850 ML IV SCH ×3 (04:11→15:23)
[2016-08-02] MEDS: LEVOTHYROXINE 100 MCG VIAL IV SCH (06:06)
[2016-08-02] MEDS: PANTOPRAZOLE 40 MG INJ IV SCH ×2 (06:06→17:06)
[2016-08-02] MEDS: HEPARIN 5,000 UNIT/0.5 ML VIAL SC SCH ×3 (06:10→20:51)
[2016-08-02] MEDS: VASOPRESSIN 60 UNIT in DEXTROSE 5% 57 ML IV SCH ×2 (06:13→16:30)
[2016-08-02] MEDS: CA CARBONATE (250 MG/ML) 5ML CUP NGT SCH ×3 (06:23→22:11)
[2016-08-02 06:31] LABS: ADD SCAN DIFF NO
[2016-08-02 06:42] LABS: ABNORMAL IP MESSAGE 1; HEMATOCRIT 23.9 % (42.0-52.0); HEMOGLOBIN 8.9 g/dl (14.0-18.0); MEAN CORPUSCULAR HEMOGLOBIN 36.2 pg (29.0-33.0); MEAN CORPUSCULAR HGB CONC 37.2 g/dl (32.0-37.0); MEAN CORPUSCULAR VOLUME 97.2 fl (82.0-101.0); MEAN PLATELET VOLUME 10.9 fl (7.4-10.4); PLATELET COUNT 120 10^3/UL (140-415); RED BLOOD COUNT 2.46 10^6/ul (4.70-6.10); RED CELL DISTRIBUTION WIDTH 14.6 % (11.5-14.5); WHITE BLOOD COUNT 7.5 10^3/ul (4.8-10.8)
[2016-08-02 07:06] LABS: ALBUMIN 3.5 g/dl (3.3-4.9); ALBUMIN/GLOBULIN RATIO 1.2; BILIRUBIN,DIRECT 0.2 mg/dl (0.00-0.20); BILIRUBIN,INDIRECT 0.2 mg/dl (0-1.1); BILIRUBIN,TOTAL 0.4 mg/dl (0.2-1.3); CALCIUM 6.6 mg/dl (8.4-10.2); CREATININE 3.16 mg/dl (0.61-1.24); MAGNESIUM 1.7 mg/dl (1.7-2.5); PHOSPHORUS 1.5 mg/dl (2.5-4.9); POTASSIUM 3.5 mmol/L (3.5-5.1); TOTAL PROTEIN 6.4 g/dl (6.1-8.1)
--- NOTE | 2016-08-02 07:39 | RADRPT ---
PROCEDURE: XR Chest. CLINICAL INDICATION: pna chf TECHNIQUE: Single frontal view of the chest was obtained. COMPARISON: Chest x-ray from 08/01/2016 FINDINGS: The endotracheal tube and enteric tube are unchanged in position. There is stable cardiomegaly. There is severe pulmonary vascular congestion which has increased. There is a stable small left pleural effusion and retrocardiac opacity due to atelectasis, infiltrat e, and / or effusion. IMPRESSION: Severe pulmonary vascular congestion which has increased. Stable small left pleural effusion and retrocardiac opacity. RPTAT: EE Physician Ismael Date Time Electronically viewed and signed by Ed Casiano Physician on 08/02/2016 07:39 /
--- NOTE | 2016-08-02 07:54 | CONS ---
Date/Time of Note Date/Time of Note DATE: 08/02/16 TIME: 07:51 Assessment/Plan Assessment/Plan Chief Complaint/Hosp Course PEA cardiac arrest: secondary to severe metabolic acidosis. No VT/VF or EKG changes to suggest primary cardiac etiology at this time but the pt may have an underlying cardiomyopathy.Trops unremarkable. Mg was very low but usually should cause VT/VF. QT mildly prolonged likely due to electrolyte abnormalities. Pt apparently was alert post code. Acute respiratory failure: intubated during code. Now with significant pulm edema/infiltrates worrisome for CHF and maybe even ARDS based on significant oxygenation issues Severe metabolic acidosis: likely was the culprit for the arrest. HD started Shock: ?septic +/- cardiogenic component though warm. On 4 pressors now Acute renal failure: unclear etiology and will require HD Hypoglycemia Hypothyroidism Diarrhea/n/v/colitis -wean off pressors as BP is high. Aim for SBP >90 or MAP >60 for now (wean off phenylephrine first, then epi, then vaso, then levo) -echo -vent management per pulm -HD per nephro Problems: Consultation Date/Type/Reason Admit Date/Time August 01, 2016 at 00:50 Initial Consult Date 08/01/16 Type of Consultation: Cardiology Referring Provider: NIKOLE KWON MD, [facility] 24 HR Interval Summary Free Text/Dictation Now on 4 pressors overnight. BP is 140-150s this am. On PEEP of 16, FiO2 100% Exam/Review of Systems Vital Signs Vitals Vital Signs Date Time Temp Pulse Resp B/P Pulse Ox O2 Delivery O2 Flow Rate FiO2 08/02/16 07:00 94 30 158/92 93 08/02/16 05:42 100 08/02/16 04:00 98.2 08/01/16 20:00 Mechanical Ventilator 08/01/16 05:00 4.0 Intake and Output 08/01/16 08/01/16 08/02/16 15:00 23:00 07:00 Intake Total 1250 ml 3546.90 ml 2498.85 ml Output Total 30 ml 20 ml 210 ml Balance 1220 ml 3526.90 ml 2288.85 ml Exam Constitutional: No alert Head: atraumatic, normocephalic Neck: No jvd (difficult to assess ) Respiratory: diminished breath sounds, No clear to auscultation Cardiovascular: regular rate and rhythm, No edema, No systolic murmur Gastrointestinal: soft, No distended Neurological: No nl mental status Results Result Diagram: 08/02/16 0600 08/02/16 0600 Results 24 hrs Laboratory Tests Test 08/01/16 08:56 08/01/16 09:05 08/01/16 10:45 08/01/16 11:25 Blood Gas Specimen Source Blood arterial Blood arterial Arterial Blood Date Drawn 08/01/2016 8:40:22 AM 08/01/2016 11:40:41 AM Arterial Blood pH (Temp corrected) 7.051 *L 7.147 *L Arterial Blood pCO2 (Temp correct) 44.3 51.3 H Arterial Blood pO2 (Temp corrected) 63.8 L 31.0 *L Arterial Blood HCO3 12.0 L 17.3 L Arterial Blood Base Excess -17.6 L -11.2 L Arterial Blood Oxygen Saturation 88.8 L 58.2 L Stanley Test ACCEPTAB ACCEPTAB Arterial Blood Gas Puncture Site Right Radial Right Radial Arterial Blood Carboxyhemoglobin 0.3 0.1 Arterial Blood Methemoglobin 0.8 0.7 Blood Gas A-a O2 Differential 604.9 H 630.7 H Oxyhemoglobin Percent 87.8 L 57.7 L Total Hemoglobin 10.1 L 10.1 L Blood Gas Temperature 37.0 37.0 Blood Gas Respiration Rate 20.0 24.0 Blood Gas Actual Respiration Rate 20 25 Blood Gas Modality VENT - AC VENT - AC FiO2 100.0 100.0 Blood Gas Tidal Volume 600.0 600.0 Blood Gas Low PEEP Setting 3.0 8.0 Blood Gas Critical Value Read Back E VAMSI RN E VAMSI RN Blood Gas Notified Whom YADIEL COTTO Blood Gas Notified Time 08/01/2016 9:00:28 AM 08/01/2016 11:57:31 AM White Blood Count 1.4 #L Red Blood Count 2.65 L Hemoglobin 9.1 L Hematocrit 27.2 L Mean Corpuscular Volume 102.6 H Mean Corpuscular Hemoglobin 34.3 H Mean Corpuscular Hemoglobin Concent 33.5 Red Cell Distribution Width 14.8 H Platelet Count 143 Mean Platelet Volume 10.4 Neutrophils % 24.0 L Lymphocytes % 70.0 H Monocytes % 6.0 Neutrophils # 0.3 L Lymphocytes # 1.0 Monocytes # 0.1 L Differential Comment Giant Platelets OCCASIONAL Hypochromasia 1+ Anisocytosis 1+ Macrocytosis 1+ Sodium Level 137 Potassium Level 3.3 L Chloride Level 104 Carbon Dioxide Level 12 L Anion Gap 24 #H Blood Urea Nitrogen 38 H Creatinine 3.48 H Glucose Level 196 Hemoglobin A1c 5.0 Lactic Acid Level 6.7 *H Calcium Level 7.3 L Magnesium Level 0.8 *L Total Bilirubin 0.1 L Direct Bilirubin 0.00 Indirect Bilirubin 0.1 Aspartate Amino Transf (AST/SGOT) 144 H Alanine Aminotransferase (ALT/SGPT) 62 Alkaline Phosphatase 102 Total Protein 7.7 # Albumin 4.2 Globulin 3.50 H Albumin/Globulin Ratio 1.20 Triglycerides Level 498 H Cholesterol Level 223 H LDL Cholesterol, Calculated 74 HDL Cholesterol 49 Cholesterol/HDL Ratio 4.5 Vitamin B12 Level 519 Folate 2.7 L Ammonia 90 H Test 08/01/16 13:48 08/01/16 16:40 08/01/16 18:10 08/01/16 19:20 Lactic Acid Level 7.0 *H 12.2 *H Troponin I 0.059 0.070 Bedside Glucose 166 Magnesium Level 1.5 L Blood Gas Specimen Source Blood arterial Arterial Blood Date Drawn 08/01/2016 7:20:08 PM Arterial Blood pH (Temp corrected) 7.229 *L Arterial Blood pCO2 (Temp correct) 35.1 Arterial Blood pO2 (Temp corrected) 55.5 L Arterial Blood HCO3 14.3 L Arterial Blood Base Excess -12.2 L Arterial Blood Oxygen Saturation 84.8 L Stanley Test ACCEPTAB Arterial Blood Gas Puncture Site Left Radial Arterial Blood Carboxyhemoglobin 0.3 Arterial Blood Methemoglobin 0.8 Blood Gas A-a O2 Differential 622.4 H Oxyhemoglobin Percent 83.9 L Total Hemoglobin 9.2 L Blood Gas Temperature 37.0 Blood Gas Respiration Rate 30.0 Blood Gas Actual Respiration Rate 31 Blood Gas Modality VENT - AC FiO2 100.0 Blood Gas Tidal Volume 750.0 Blood Gas Low PEEP Setting 20.0 Blood Gas Critical Value Read Back RGENTRY RN Blood Gas Notified Whom MA Blood Gas Notified Time 08/01/2016 7:30:53 PM Test 08/01/16 21:13 08/02/16 00:41 08/02/16 01:50 08/02/16 06:00 Sodium Level 138 133 L Potassium Level 2.9 *L 3.5 Chloride Level 104 99 Carbon Dioxide Level 17 L 17 L Anion Gap 20 H 21 H Blood Urea Nitrogen 30 H 30 H Creatinine 3.33 H 3.16 H Glucose Level 217 337 H Calcium Level 6.9 L 6.6 L Total Bilirubin 0.5 0.4 Direct Bilirubin 0.30 #H 0.20 Indirect Bilirubin 0.2 0.2 Aspartate Amino Transf (AST/SGOT) 229 #H 311 H Alanine Aminotransferase (ALT/SGPT) 75 H 72 H Alkaline Phosphatase 83 82 Total Protein 6.7 # 6.4 Albumin 3.6 3.5 Globulin 3.10 2.90 Albumin/Globulin Ratio 1.16 1.20 Lactic Acid Level 12.4 *H 11.4 *H Magnesium Level 1.6 L 1.7 Troponin I 0.102 Urine Color YELLOW Urine Clarity CLEAR Urine pH 5.5 Urine Specific [place] 1.020 Urine Ketones TRACE Urine Nitrite NEGATIVE Urine Bilirubin 2+ H Urine Ictotest NEGATIVE Urine Urobilinogen 0.2 E.U./dL Urine Leukocyte Esterase NEGATIVE Urine Microscopic RBC >200 Urine Microscopic WBC 0-2 Urine Squamous Epithelial Cells FEW Urine Bacteria MANY Urine Hyaline Casts FEW Urine Hemoglobin 3+ H Urine Random Creatinine 182.01 Urine Random Sodium 63 Urine Glucose NEGATIVE Urine Total Protein 112.0 H White Blood Count 7.5 # Red Blood Count 2.46 L Hemoglobin 8.9 L Hematocrit 23.9 L Mean Corpuscular Volume 97.2 Mean Corpuscular Hemoglobin 36.2 H Mean Corpuscular Hemoglobin Concent 37.2 H Red Cell Distribution Width 14.6 H Platelet Count 120 L Mean Platelet Volume 10.9 H Neutrophils % Lymphocytes % Monocytes % Eosinophils % Neutrophils # Lymphocytes # Monocytes # Eosinophils # Phosphorus Level 1.5 L Lipase 228 Medications Medications Current Medications Lorazepam (Ativan) 0.5 mg Q6H PRN IV ANXIETY; Start 08/01/16 at 03:00 Ondansetron HCl (Zofran Inj) 4 mg Q6H PRN IV NAUSEA AND/OR VOMITING; Start at 03:00 Metoclopramide HCl (Reglan) 10 mg Q6H PRN IV NAUSEA AND/OR VOMITING; Start at 03:00 Acetaminophen (Tylenol Tab) 650 mg Q6H PRN PO PAIN LEVEL 1-3 OR FEVER; Start at 03:00 Heparin Sodium (Porcine) 5000 unit 5,000 unit Q8 SC Last administered on 06:10; Admin Dose 5,000 UNIT; Start 08/01/16 at 06:00 Sodium Bicarbonate/ Dextrose (Na Bicarb/D5W) 1,000 ml @ 100 mls/hr Q10H IV Last administered on 08/02/16 04:11; Admin Dose 100 MLS/HR; Start 08/01/16 at 07 :00 Acetaminophen (Tylenol Supp) 650 mg Q4H PRN [place] PAIN LEVEL 1-3 OR FEVER; Start 08/01/16 at 06:30 Pantoprazole 40 mg 40 mg BID@06,18 IV Last administered on 08/02/16 06:06; Admin Dose 40 MG; Start 08/01/16 at 06:00 Propofol 100 ml @ 3.33 mls/hr Q12H IV Last administered on 08/02/16 06:20; Admin Dose 33.3 MLS/HR; Start 08/01/16 at 09:30 Phenylephrine HCl 40 mg/Dextrose 500 ml @ 0 mls/hr TITRATE IV Last administered on 08/02/16 04:58; Admin Dose 112.5 MLS/HR; Start 08/01/16 at 16:00 Norepinephrine 16 mg/Dextrose 500 ml @ 0 mls/hr TITRATE IV ; Start 08/01/16 at 16:00 Cefepime HCl (Maxipime 1gm/50 ml (Pmx)) 50 ml @ 100 mls/hr Q24H IVPB Last administered on 08/01/16 17:36; Admin Dose 100 MLS/HR; Start 08/01/16 at 16:00 Methylprednisolone Sodium Succinate 60 mg 60 mg Q6 IV Last administered on 06:06; Admin Dose 60 MG; Start 08/01/16 at 18:00 Vasopressin 60 unit/Dextrose 60 ml @ 1.2 mls/hr Q12H IV Last administered on 06:13; Admin Dose 2.4 MLS/HR; Start 08/01/16 at 17:30 Epinephrine/ Sodium Chloride (EPINEPHrine/NS) 250 ml @ 3.75 mls/hr TITRATE IV Last administered on 08/01/16 18:50; Admin Dose 3.75 MLS/HR; Start 08/01/16 at 19:30 Levothyroxine Sodium (Synthroid Iv) 100 mcg DAILY@06 IV Last administered on 06:06; Admin Dose 100 MCG; Start 08/02/16 at 06:00 Calcium Carbonate (Ca Carbonate) 1,250 mg Q8 NGT Last administered on 08/02/16 06:23; Admin Dose 1,250 MG; Start 08/01/16 at 22:00 Eye Lubricant (Artificial Tears Oph) 2 drop QID BOTH EYES ; Start 08/02/16 at 09: 00 SEPIDEH HAN Aug 02, 2016 07:54
[2016-08-02 07:55] LABS: AADO2 Arterial 624.4 mmHg (7.0-24.0); Allen Test ACCEPTAB; Arterial Base Excess -8.7 mmol/L (-3.0-3); Arterial COHb 0.3 % (0.0-3.0); Arterial Fraction of Oxyhgb 90.9 % (93.0-99.0); Arterial HCO3 14.7 mmol/L (22.0-26.0); Arterial MetHb 0.9 % (0.0-1.5); Arterial Total Hemglobin 9.3 g/dl (12.0-18.0); MODE VENT - AC
--- NOTE | 2016-08-02 08:29 | CONS ---
Date/Time of Note Date/Time of Note DATE: 08/02/16 TIME: 08:25 Assessment/Plan Assessment/Plan Chief Complaint/Hosp Course 60-year-old right-handed -[place] gentleman normally cared for at the [facility] system. He was admitted to the hospital but it had cardiac arrest in the hospital. Please note that his picture actually looked a bit like adrenal insufficiency except that he has a serum cortisol level of 44 prior to his arrest. He had a TSH of 21 with a low free T4 and a low T3. Patient is intubated and unable to give a history although he is able to look and follows rudimentary commands Problems: (1) Hypothyroidism Status: Chronic Comment: He is receiving the levothyroxine for this. I do not believe that this is a major player and what is going on in this gentleman. Please note he does not have adrenal insufficiency and even if he did he is on Solu-Medrol now which would be the treatment for it. Please note the Solu-Medrol is inducing hyperglycemia which will deal with Qualifiers: Hypothyroidism type: acquired Qualified Code: E03.9 - Acquired hypothyroidism (2) High anion gap metabolic acidosis Status: Acute Comment: There is a finite differential diagnosis for this. I do not believe this is consistently consistent with salicylate overdose and he has a low salicylate level. In addition while he did have alcohol intoxication I do not believe that that would be enough. There is a lactic acidosis but is not a level that would match up with the degree of metabolic acidosis or anion gap. He was not in diabetic ketoacidosis. Another consideration would be ethylene glycol poisoning which would actually fit the clinical picture. I have sent that out. Please note the treatment for this is dialysis which he is receiving. I do not believe uremia or paraldehyde intoxication would fit in this clinical picture. (3) Lactic acidosis Status: Acute Comment: Patient is on 4 pressors. Extremely critical. (4) Acute kidney injury Status: Acute Comment: As per nephrology being dialyzed. Consultation Date/Type/Reason Admit Date/Time August 01, 2016 at 00:50 Initial Consult Date 08/01/16 Type of Consultation: Endocrinology Reason for Consultation Hypothyroidism; anion gap metabolic acidosis; hypocalcemia Referring Provider: NIKOLE KWON MD, [facility] 24 HR Interval Summary Subjective hx not possible: pt non-verbal, pt critical status Exam/Review of Systems Vital Signs Vitals Vital Signs Date Time Temp Pulse Resp B/P Pulse Ox O2 Delivery O2 Flow Rate FiO2 08/02/16 08:00 100 08/02/16 07:45 97.8 93 30 144/88 93 Mechanical Ventilator 08/01/16 05:00 4.0 Intake and Output 08/01/16 08/01/16 08/02/16 15:00 23:00 07:00 Intake Total 1250 ml 3546.90 ml 2498.85 ml Output Total 30 ml 20 ml 260 ml Balance 1220 ml 3526.90 ml 2238.85 ml Exam Constitutional: non-verbal Respiratory: clear to auscultation, normal air movement Cardiovascular: nl pulses, regular rate and rhythm Gastrointestinal: nl liver, spleen, non-tender, soft Results Result Diagram: 08/02/16 0600 08/02/16 0600 Results 24 hrs Laboratory Tests Test 08/01/16 08:56 08/01/16 09:05 08/01/16 10:45 08/01/16 11:25 Blood Gas Specimen Source Blood arterial Blood arterial Arterial Blood Date Drawn 08/01/2016 8:40:22 AM 08/01/2016 11:40:41 AM Arterial Blood pH (Temp corrected) 7.051 *L 7.147 *L Arterial Blood pCO2 (Temp correct) 44.3 51.3 H Arterial Blood pO2 (Temp corrected) 63.8 L 31.0 *L Arterial Blood HCO3 12.0 L 17.3 L Arterial Blood Base Excess -17.6 L -11.2 L Arterial Blood Oxygen Saturation 88.8 L 58.2 L Stanley Test ACCEPTAB ACCEPTAB Arterial Blood Gas Puncture Site Right Radial Right Radial Arterial Blood Carboxyhemoglobin 0.3 0.1 Arterial Blood Methemoglobin 0.8 0.7 Blood Gas A-a O2 Differential 604.9 H 630.7 H Oxyhemoglobin Percent 87.8 L 57.7 L Total Hemoglobin 10.1 L 10.1 L Blood Gas Temperature 37.0 37.0 Blood Gas Respiration Rate 20.0 24.0 Blood Gas Actual Respiration Rate 20 25 Blood Gas Modality VENT - AC VENT - AC FiO2 100.0 100.0 Blood Gas Tidal Volume 600.0 600.0 Blood Gas Low PEEP Setting 3.0 8.0 Blood Gas Critical Value Read Back E VAMSI RN E VAMSI VALDEZ Blood Gas Notified Whom YADIEL COTTO Blood Gas Notified Time 08/01/2016 9:00:28 AM 08/01/2016 11:57:31 AM White Blood Count 1.4 #L Red Blood Count 2.65 L Hemoglobin 9.1 L Hematocrit 27.2 L Mean Corpuscular Volume 102.6 H Mean Corpuscular Hemoglobin 34.3 H Mean Corpuscular Hemoglobin Concent 33.5 Red Cell Distribution Width 14.8 H Platelet Count 143 Mean Platelet Volume 10.4 Neutrophils % 24.0 L Lymphocytes % 70.0 H Monocytes % 6.0 Neutrophils # 0.3 L Lymphocytes # 1.0 Monocytes # 0.1 L Differential Comment Giant Platelets OCCASIONAL Hypochromasia 1+ Anisocytosis 1+ Macrocytosis 1+ Sodium Level 137 Potassium Level 3.3 L Chloride Level 104 Carbon Dioxide Level 12 L Anion Gap 24 #H Blood Urea Nitrogen 38 H Creatinine 3.48 H Glucose Level 196 Hemoglobin A1c 5.0 Lactic Acid Level 6.7 *H Calcium Level 7.3 L Magnesium Level 0.8 *L Total Bilirubin 0.1 L Direct Bilirubin 0.00 Indirect Bilirubin 0.1 Aspartate Amino Transf (AST/SGOT) 144 H Alanine Aminotransferase (ALT/SGPT) 62 Alkaline Phosphatase 102 Total Protein 7.7 # Albumin 4.2 Globulin 3.50 H Albumin/Globulin Ratio 1.20 Triglycerides Level 498 H Cholesterol Level 223 H LDL Cholesterol, Calculated 74 HDL Cholesterol 49 Cholesterol/HDL Ratio 4.5 Vitamin B12 Level 519 Folate 2.7 L Ammonia 90 H Test 08/01/16 13:48 08/01/16 16:40 08/01/16 18:10 08/01/16 19:20 Lactic Acid Level 7.0 *H 12.2 *H Troponin I 0.059 0.070 Bedside Glucose 166 Magnesium Level 1.5 L Blood Gas Specimen Source Blood arterial Arterial Blood Date Drawn 08/01/2016 7:20:08 PM Arterial Blood pH (Temp corrected) 7.229 *L Arterial Blood pCO2 (Temp correct) 35.1 Arterial Blood pO2 (Temp corrected) 55.5 L Arterial Blood HCO3 14.3 L Arterial Blood Base Excess -12.2 L Arterial Blood Oxygen Saturation 84.8 L Stanley Test ACCEPTAB Arterial Blood Gas Puncture Site Left Radial Arterial Blood Carboxyhemoglobin 0.3 Arterial Blood Methemoglobin 0.8 Blood Gas A-a O2 Differential 622.4 H Oxyhemoglobin Percent 83.9 L Total Hemoglobin 9.2 L Blood Gas Temperature 37.0 Blood Gas Respiration Rate 30.0 Blood Gas Actual Respiration Rate 31 Blood Gas Modality VENT - AC FiO2 100.0 Blood Gas Tidal Volume 750.0 Blood Gas Low PEEP Setting 20.0 Blood Gas Critical Value Read Back RGENTRY RN Blood Gas Notified Whom JAN Blood Gas Notified Time 08/01/2016 7:30:53 PM Test 08/01/16 21:13 08/02/16 00:41 08/02/16 01:50 08/02/16 06:00 Sodium Level 138 133 L Potassium Level 2.9 *L 3.5 Chloride Level 104 99 Carbon Dioxide Level 17 L 17 L Anion Gap 20 H 21 H Blood Urea Nitrogen 30 H 30 H Creatinine 3.33 H 3.16 H Glucose Level 217 337 H Calcium Level 6.9 L 6.6 L Total Bilirubin 0.5 0.4 Direct Bilirubin 0.30 #H 0.20 Indirect Bilirubin 0.2 0.2 Aspartate Amino Transf (AST/SGOT) 229 #H 311 H Alanine Aminotransferase (ALT/SGPT) 75 H 72 H Alkaline Phosphatase 83 82 Total Protein 6.7 # 6.4 Albumin 3.6 3.5 Globulin 3.10 2.90 Albumin/Globulin Ratio 1.16 1.20 Lactic Acid Level 12.4 *H 11.4 *H Magnesium Level 1.6 L 1.7 Troponin I 0.102 Urine Color YELLOW Urine Clarity CLEAR Urine pH 5.5 Urine Specific [place] 1.020 Urine Ketones TRACE Urine Nitrite NEGATIVE Urine Bilirubin 2+ H Urine Ictotest NEGATIVE Urine Urobilinogen 0.2 E.U./dL Urine Leukocyte Esterase NEGATIVE Urine Microscopic RBC >200 Urine Microscopic WBC 0-2 Urine Squamous Epithelial Cells FEW Urine Bacteria MANY Urine Hyaline Casts FEW Urine Hemoglobin 3+ H Urine Random Creatinine 182.01 Urine Random Sodium 63 Urine Glucose NEGATIVE Urine Total Protein 112.0 H White Blood Count 7.5 # Red Blood Count 2.46 L Hemoglobin 8.9 L Hematocrit 23.9 L Mean Corpuscular Volume 97.2 Mean Corpuscular Hemoglobin 36.2 H Mean Corpuscular Hemoglobin Concent 37.2 H Red Cell Distribution Width 14.6 H Platelet Count 120 L Mean Platelet Volume 10.9 H Neutrophils % Lymphocytes % Monocytes % Eosinophils % Neutrophils # Lymphocytes # Monocytes # Eosinophils # Phosphorus Level 1.5 L Lipase 228 Test 08/02/16 07:00 Blood Gas Specimen Source Blood arterial Arterial Blood Date Drawn 08/02/2016 7:30:55 AM Arterial Blood pH (Temp corrected) 7.404 Arterial Blood pCO2 (Temp correct) 24.0 L Arterial Blood pO2 (Temp corrected) 64.6 L Arterial Blood HCO3 14.7 L Arterial Blood Base Excess -8.7 L Arterial Blood Oxygen Saturation 92.0 L Stanley Test ACCEPTAB Arterial Blood Gas Puncture Site Right Radial Arterial Blood Carboxyhemoglobin 0.3 Arterial Blood Methemoglobin 0.9 Blood Gas A-a O2 Differential 624.4 H Oxyhemoglobin Percent 90.9 L Total Hemoglobin 9.3 L Blood Gas Temperature 37.0 Blood Gas Respiration Rate 30.0 Blood Gas Actual Respiration Rate 30 Blood Gas Modality VENT - AC FiO2 100.0 Blood Gas Tidal Volume 750.0 Blood Gas Low PEEP Setting 16.0 Blood Gas Notified Whom JLD Blood Gas Notified Time 08/02/2016 7:55:42 AM Medications Medications Current Medications Lorazepam (Ativan) 0.5 mg Q6H PRN IV ANXIETY; Start 08/01/16 at 03:00 Ondansetron HCl (Zofran Inj) 4 mg Q6H PRN IV NAUSEA AND/OR VOMITING; Start at 03:00 Metoclopramide HCl (Reglan) 10 mg Q6H PRN IV NAUSEA AND/OR VOMITING; Start at 03:00 Acetaminophen (Tylenol Tab) 650 mg Q6H PRN PO PAIN LEVEL 1-3 OR FEVER; Start at 03:00 Heparin Sodium (Porcine) 5000 unit 5,000 unit Q8 SC Last administered on 06:10; Admin Dose 5,000 UNIT; Start 08/01/16 at 06:00 Sodium Bicarbonate/ Dextrose (Na Bicarb/D5W) 1,000 ml @ 100 mls/hr Q10H IV Last administered on 08/02/16 04:11; Admin Dose 100 MLS/HR; Start 08/01/16 at 07 :00 Acetaminophen (Tylenol Supp) 650 mg Q4H PRN [place] PAIN LEVEL 1-3 OR FEVER; Start 08/01/16 at 06:30 Pantoprazole 40 mg 40 mg BID@18 IV Last administered on 08/02/16 06:06; Admin Dose 40 MG; Start 08/01/16 at 06:00 Propofol 100 ml @ 3.33 mls/hr Q12H IV Last administered on 08/02/16 06:20; Admin Dose 33.3 MLS/HR; Start 08/01/16 at 09:30 Phenylephrine HCl 40 mg/Dextrose 500 ml @ 0 mls/hr TITRATE IV Last administered on 08/02/16 04:58; Admin Dose 112.5 MLS/HR; Start 08/01/16 at 16:00 Norepinephrine 16 mg/Dextrose 500 ml @ 0 mls/hr TITRATE IV Last administered on 08/02/16 08:00; Admin Dose 22.5 MLS/HR; Start 08/01/16 at 16:00 Cefepime HCl (Maxipime 1gm/50 ml (Pmx)) 50 ml @ 100 mls/hr Q24H IVPB Last administered on 08/01/16 17:36; Admin Dose 100 MLS/HR; Start 08/01/16 at 16:00 Methylprednisolone Sodium Succinate 60 mg 60 mg Q6 IV Last administered on 06:06; Admin Dose 60 MG; Start 08/01/16 at 18:00 Vasopressin 60 unit/Dextrose 60 ml @ 1.2 mls/hr Q12H IV Last administered on 06:13; Admin Dose 2.4 MLS/HR; Start 08/01/16 at 17:30 Epinephrine/ Sodium Chloride (EPINEPHrine/NS) 250 ml @ 3.75 mls/hr TITRATE IV Last administered on 08/01/16 18:50; Admin Dose 3.75 MLS/HR; Start 08/01/16 at 19:30 Levothyroxine Sodium (Synthroid Iv) 100 mcg DAILY@06 IV Last administered on 06:06; Admin Dose 100 MCG; Start 08/02/16 at 06:00 Calcium Carbonate (Ca Carbonate) 1,250 mg Q8 NGT Last administered on 08/02/16 06:23; Admin Dose 1,250 MG; Start 08/01/16 at 22:00 Eye Lubricant 2 drop 2 drop QID BOTH EYES ; Start 08/02/16 at 09:00 Potassium Phosphate/Sodium Chloride (K Phos (Meq)/NS) 254.5455 ml @ 63.636 m... ONCE ONCE IVPB ; Start 08/02/16 at 08:30; Stop 08/02/16 at 12:29; Status ERIN TILLEY MD Aug 02, 2016 08:29
[2016-08-02] MEDS ORDERED: Discontinue Glyburide, Glipizide, and/or Glimepiride prior to starting Insulin XX ONE (08:30)
[2016-08-02] MEDS ORDERED: HYPOGLYCEMIA PROTOCOL when Glucose is <70 mg/dL or symptomatic <90 mg/dL. XX ONE (08:30)
[2016-08-02] MEDS ORDERED: GLUCOSE GEL 15 GRAM TUBE PO PRN ×2 (09:00)
[2016-08-02] MEDS ORDERED: DEXTROSE 50% 50 ML SYRINGE IV PRN (09:00)
[2016-08-02] MEDS ORDERED: GLUCOSE GEL 15 GRAM TUBE BUCCAL PRN (09:00)
[2016-08-02] MEDS ORDERED: GLUCAGON 1 MG INJ IM PRN (09:00)
[2016-08-02] MEDS ORDERED: POTASSIUM PHOSPHATE 20 MEQ in SOD CHLORIDE 0.9% 250 ML IVPB ONE (09:30)
[2016-08-02 09:37] LABS: EOSINOPHILS # 0.2 10^3/ul (0.0-0.5); LYMPHOCYTES # 1.1 10^3/ul (0.8-2.9); MONOCYTE # 0.3 10^3/ul (0.3-0.9); MYELOCYTES # 0.1; NEUTROPHIL # 2.5 10^3/ul (1.6-7.5)
--- NOTE | 2016-08-02 09:41 | PN ---
DATE: 08/02/2016 SUBJECTIVE: yesterday. The patient was critically ill. Urgent hemodialysis was performed. Dialysis was complicated when the patient coded. I spoke with the dialysis nurse multiple times dur ing the course of hemodialysis. The patient further decompensated and has been placed on 4 pressors . The patient remains obtunded, on FIO2 of 100%. There have been no reports of hemoptysis, hematem esis or hematochezia. OBJECTIVE: VITAL SIGNS: Blood pressure 158/92, respirations 30, pulse 74, temperature 98.6. I's and O's: 7 liters in, 260 out. HEENT: Head is normocephalic. NECK: Supple. HEART: Regular rate. LUNGS: Showed diminished breath sounds at the base. Positive rhonchi. ABDOMEN: Soft, obese, nontender to palpation. EXTREMITIES: Negative for clubbing or cyanosis. Trace edema. DERMATOLOGIC: No rashes. MUSCULOSKELETAL: Have no joint effusion. NEUROLOGIC: The patient is obtunded. MEDICATIONS: Have been reviewed. LABORATORY DATA: Shows sodium 133, potassium 3.5, chloride 99, BUN 30, creatinine 3.16, glucose 237 . Lactic acid 11.4, phosphorus 1.5. White count 7.5, hemoglobin 8.9, hematocrit 23.9, platelet cou nt is 120. ASSESSMENT AND PLAN: 1. Anuric acute kidney injury, with an unknown baseline creatinine. Etiology is secondary to acute tubular necrosis due to shock, sepsis. The patient was initiated on urgent hemodialysis yesterday. Was unable to tolerate due to hypotension. Plan is for dialysis today for volume removal and solu te clearance, if the patient remains hemodynamically stable. Will dialyze for 3 hours, 4K bath, merry cium of 2.5. Anticipate daily dialysis for solute clearance and volume removal, as hemodynamically tolerated. 2. Hypokalemia. Improved. Continue to monitor. 3. Mixed acid base disorder. The patient has a metabolic anion gap acidosis and respiratory acidos is. The patient has a pH of 7.229, with a pCO2 of 35. The patient's pCO2 levels are inappropriatel y elevated for his level of acidemia. Plan at this point is to continue the current treatment plan, continue dialysis with a 40 bicarbonate bath, continue bicarbonate drip, and monitor serial ABGs. 4. Ventilator dependent respiratory failure. Vent settings have been reviewed. ABG has been revie wed. The patient's FIO2 levels are at 100%, with a PEEP of 16. Will continue the current vent sett ings. Follow up with pulmonary. 5. Volume overload, acute congestive heart failure, possibly diastolic and systolic. The patient i s with pulmonary congestion and is positive 7 liters. At this point will continue medical managemen t, follow up with cardiology, follow up a 2D echo. Will attempt ultrafiltration with dialysis if he modynamically stable. 6. Shock. Etiology is likely multifactorial, cardiac, possible septic. The patient currently is o n broad spectrum antibiotics, on 4 pressors. Will continue the current treatment plan, continue to wean off pressors if possible. Will follow up a 2D echo. Will continue to monitor closely. 7. Status post cardiopulmonary arrest. Etiology is likely metabolic, possible severe acidemia. Th e patient had spontaneous return of circulation. Will continue further evaluation. Cardiac workup is ongoing. Follow up with cardiology for recommendations. 8. Acute encephalopathy. Etiology is toxic metabolic, possibly anoxic injury. Continue to monitor. 9. Hypothyroidism. Continue Synthroid. 10. History of alcohol use. 11. Anemia. Continue to monitor hemoglobin and hematocrit levels. 12. Mineral bone disorder. The patient's phosphorus levels remain markedly low. Will replete with potassium phosphate. 13. Hypomagnesemia. The patient is status post magnesium sulfate. 14. Hyponatremia. Continue to monitor. 15. Lactic acidosis secondary to shock. Will continue to observe. Continue to treat underlying sh ock, as stated above. Please note, I spent over 35 minutes of critical care time with this patient. Dictated By: BALDOMERO TOVAR/CHARLES Conf#: [id number] DID#: [id number]
[2016-08-02] MEDS: INSULIN ASPART [NOVOLOG] 3 ML PEN SC SCH ×4 (09:56→20:50)
[2016-08-02] MEDS: ARTIFICIAL TEARS 15 ML OPH BOTH EYES SCH ×4 (09:57→22:17)
[2016-08-02] MEDS: MIDAZOLAM (DRIP) 50 mg/50 mL 50 ML IV SCH ×4 (09:58→23:20)
[2016-08-02] MEDS: FENTAnyl (DRIP) 1000 mcg/100mL 100 ML IV SCH ×2 (09:58→20:55)
--- NOTE | 2016-08-02 10:54 | CONS ---
Date/Time of Note Date/Time of Note DATE: 08/02/16 TIME: 10:52 Consult Date/Type/Reason Admit Date/Time August 01, 2016 at 00:50 Initial Consult Date 08/01/16 Type of Consultation: Pulmonary Ordering Provider: NIKOLE KWON MD, [facility] Subjective Patient status post cardiac arrest 2 Currently receiving hemodialysis On multiple vasopressors Objective Vital Signs Date Time Temp Pulse Resp B/P Pulse Ox O2 Delivery O2 Flow Rate FiO2 08/02/16 10:31 91 08/02/16 10:15 30 120/75 94 Mechanical Ventilator 08/02/16 08:00 100 08/02/16 07:45 97.8 08/01/16 05:00 4.0 Intake and Output 08/01/16 08/01/16 08/02/16 15:00 23:00 07:00 Intake Total 1250 ml 3546.90 ml 2498.85 ml Output Total 30 ml 20 ml 260 ml Balance 1220 ml 3526.90 ml 2238.85 ml Exam PHYSICAL EXAMINATION: GENERAL: Moderately obese gentleman, intubated on mechanical ventilation, opening eyes, VITAL SIGNS: NECK: Supple. No JVD or lymphadenopathy. CARDIAC: S1, S2, no added sounds or murmurs. CHEST: Diminished air entry bilaterally. ABDOMEN: Soft, nontender. No guarding, no rebound. EXTREMITIES: No cyanosis, clubbing. Edema +1. NEUROLOGIC: Generalized weakness. Results/Medications Result Diagram: 08/02/16 0600 08/02/16 0600 Results 24 hrs Laboratory Tests Test 08/01/16 11:25 08/01/16 13:48 08/01/16 16:40 08/01/16 18:10 Blood Gas Specimen Source Blood arterial Arterial Blood Date Drawn 08/01/2016 11:40:41 AM Arterial Blood pH (Temp corrected) 7.147 *L Arterial Blood pCO2 (Temp correct) 51.3 H Arterial Blood pO2 (Temp corrected) 31.0 *L Arterial Blood HCO3 17.3 L Arterial Blood Base Excess -11.2 L Arterial Blood Oxygen Saturation 58.2 L Stanley Test ACCEPTAB Arterial Blood Gas Puncture Site Right Radial Arterial Blood Carboxyhemoglobin 0.1 Arterial Blood Methemoglobin 0.7 Blood Gas A-a O2 Differential 630.7 H Oxyhemoglobin Percent 57.7 L Total Hemoglobin 10.1 L Blood Gas Temperature 37.0 Blood Gas Respiration Rate 24.0 Blood Gas Actual Respiration Rate 25 Blood Gas Modality VENT - AC FiO2 100.0 Blood Gas Tidal Volume 600.0 Blood Gas Low PEEP Setting 8.0 Blood Gas Critical Value Read Back Celestina AGUSTIN RN Blood Gas Notified Whom BRIGHTD Blood Gas Notified Time 08/01/2016 11:57:31 AM Lactic Acid Level 7.0 *H 12.2 *H Troponin I 0.059 0.070 Bedside Glucose 166 Magnesium Level 1.5 L Test 08/01/16 19:20 08/01/16 21:13 08/02/16 00:41 08/02/16 01:50 Blood Gas Specimen Source Blood arterial Arterial Blood Date Drawn 08/01/2016 7:20:08 PM Arterial Blood pH (Temp corrected) 7.229 *L Arterial Blood pCO2 (Temp correct) 35.1 Arterial Blood pO2 (Temp corrected) 55.5 L Arterial Blood HCO3 14.3 L Arterial Blood Base Excess -12.2 L Arterial Blood Oxygen Saturation 84.8 L Stanley Test ACCEPTAB Arterial Blood Gas Puncture Site Left Radial Arterial Blood Carboxyhemoglobin 0.3 Arterial Blood Methemoglobin 0.8 Blood Gas A-a O2 Differential 622.4 H Oxyhemoglobin Percent 83.9 L Total Hemoglobin 9.2 L Blood Gas Temperature 37.0 Blood Gas Respiration Rate 30.0 Blood Gas Actual Respiration Rate 31 Blood Gas Modality VENT - AC FiO2 100.0 Blood Gas Tidal Volume 750.0 Blood Gas Low PEEP Setting 20.0 Blood Gas Critical Value Read Back TERRIE RN Blood Gas Notified Whom JAN Blood Gas Notified Time 08/01/2016 7:30:53 PM Sodium Level 138 Potassium Level 2.9 *L Chloride Level 104 Carbon Dioxide Level 17 L Anion Gap 20 H Blood Urea Nitrogen 30 H Creatinine 3.33 H Glucose Level 217 Calcium Level 6.9 L Total Bilirubin 0.5 Direct Bilirubin 0.30 #H Indirect Bilirubin 0.2 Aspartate Amino Transf (AST/SGOT) 229 #H Alanine Aminotransferase (ALT/SGPT) 75 H Alkaline Phosphatase 83 Total Protein 6.7 # Albumin 3.6 Globulin 3.10 Albumin/Globulin Ratio 1.16 Lactic Acid Level 12.4 *H Magnesium Level 1.6 L Troponin I 0.102 Urine Color YELLOW Urine Clarity CLEAR Urine pH 5.5 Urine Specific [place] 1.020 Urine Ketones TRACE Urine Nitrite NEGATIVE Urine Bilirubin 2+ H Urine Ictotest NEGATIVE Urine Urobilinogen 0.2 E.U./dL Urine Leukocyte Esterase NEGATIVE Urine Microscopic RBC >200 Urine Microscopic WBC 0-2 Urine Squamous Epithelial Cells FEW Urine Bacteria MANY Urine Hyaline Casts FEW Urine Hemoglobin 3+ H Urine Random Creatinine 182.01 Urine Random Sodium 63 Urine Glucose NEGATIVE Urine Total Protein 112.0 H Test 08/02/16 06:00 08/02/16 07:00 08/02/16 09:53 White Blood Count 7.5 # Red Blood Count 2.46 L Hemoglobin 8.9 L Hematocrit 23.9 L Mean Corpuscular Volume 97.2 Mean Corpuscular Hemoglobin 36.2 H Mean Corpuscular Hemoglobin Concent 37.2 H Red Cell Distribution Width 14.6 H Platelet Count 120 L Mean Platelet Volume 10.9 H Neutrophils % 33.0 L Band Neutrophils % 39.0 H Lymphocytes % 14.0 L Monocytes % 4.0 Eosinophils % 3.0 Metamyelocytes % 6.0 H Myelocytes % 1.0 H Neutrophils # 2.5 Lymphocytes # 1.1 Monocytes # 0.3 Eosinophils # 0.2 Metamyelocytes # 0.5 Myelocytes # 0.1 Sodium Level 133 L Potassium Level 3.5 Chloride Level 99 Carbon Dioxide Level 17 L Anion Gap 21 H Blood Urea Nitrogen 30 H Creatinine 3.16 H Glucose Level 337 H Lactic Acid Level 11.4 *H Calcium Level 6.6 L Phosphorus Level 1.5 L Magnesium Level 1.7 Total Bilirubin 0.4 Direct Bilirubin 0.20 Indirect Bilirubin 0.2 Aspartate Amino Transf (AST/SGOT) 311 H Alanine Aminotransferase (ALT/SGPT) 72 H Alkaline Phosphatase 82 Total Protein 6.4 Albumin 3.5 Globulin 2.90 Albumin/Globulin Ratio 1.20 Lipase 228 Blood Gas Specimen Source Blood arterial Arterial Blood Date Drawn 08/02/2016 7:30:55 AM Arterial Blood pH (Temp corrected) 7.404 Arterial Blood pCO2 (Temp correct) 24.0 L Arterial Blood pO2 (Temp corrected) 64.6 L Arterial Blood HCO3 14.7 L Arterial Blood Base Excess -8.7 L Arterial Blood Oxygen Saturation 92.0 L Stanley Test ACCEPTAB Arterial Blood Gas Puncture Site Right Radial Arterial Blood Carboxyhemoglobin 0.3 Arterial Blood Methemoglobin 0.9 Blood Gas A-a O2 Differential 624.4 H Oxyhemoglobin Percent 90.9 L Total Hemoglobin 9.3 L Blood Gas Temperature 37.0 Blood Gas Respiration Rate 30.0 Blood Gas Actual Respiration Rate 30 Blood Gas Modality VENT - AC FiO2 100.0 Blood Gas Tidal Volume 750.0 Blood Gas Low PEEP Setting 16.0 Blood Gas Notified Whom JLD Blood Gas Notified Time 08/02/2016 7:55:42 AM Bedside Glucose 333 H Medications Current Medications Lorazepam (Ativan) 0.5 mg Q6H PRN IV ANXIETY; Start 08/01/16 at 03:00 Ondansetron HCl (Zofran Inj) 4 mg Q6H PRN IV NAUSEA AND/OR VOMITING; Start at 03:00 Metoclopramide HCl (Reglan) 10 mg Q6H PRN IV NAUSEA AND/OR VOMITING; Start at 03:00 Acetaminophen (Tylenol Tab) 650 mg Q6H PRN PO PAIN LEVEL 1-3 OR FEVER; Start at 03:00 Heparin Sodium (Porcine) 5000 unit 5,000 unit Q8 SC Last administered on 06:10; Admin Dose 5,000 UNIT; Start 08/01/16 at 06:00 Sodium Bicarbonate/ Dextrose (Na Bicarb/D5W) 1,000 ml @ 100 mls/hr Q10H IV Last administered on 08/02/16 04:11; Admin Dose 100 MLS/HR; Start 08/01/16 at 07 :00 Acetaminophen (Tylenol Supp) 650 mg Q4H PRN [place] PAIN LEVEL 1-3 OR FEVER; Start 08/01/16 at 06:30 Pantoprazole 40 mg 40 mg BID@06,18 IV Last administered on 08/02/16 06:06; Admin Dose 40 MG; Start 08/01/16 at 06:00 Propofol 100 ml @ 3.33 mls/hr Q12H IV Last administered on 08/02/16 09:30; Admin Dose 26.64 MLS/HR; Start 08/01/16 at 09:30 Phenylephrine HCl 40 mg/Dextrose 500 ml @ 0 mls/hr TITRATE IV Last administered on 08/02/16 04:58; Admin Dose 112.5 MLS/HR; Start 08/01/16 at 16:00 Norepinephrine 16 mg/Dextrose 500 ml @ 0 mls/hr TITRATE IV Last administered on 08/02/16 08:00; Admin Dose 22.5 MLS/HR; Start 08/01/16 at 16:00 Cefepime HCl (Maxipime 1gm/50 ml (Pmx)) 50 ml @ 100 mls/hr Q24H IVPB Last administered on 08/01/16 17:36; Admin Dose 100 MLS/HR; Start 08/01/16 at 16:00 Methylprednisolone Sodium Succinate 60 mg 60 mg Q6 IV Last administered on 06:06; Admin Dose 60 MG; Start 08/01/16 at 18:00 Vasopressin 60 unit/Dextrose 60 ml @ 1.2 mls/hr Q12H IV Last administered on 06:13; Admin Dose 2.4 MLS/HR; Start 08/01/16 at 17:30 Epinephrine/ Sodium Chloride (EPINEPHrine/NS) 250 ml @ 3.75 mls/hr TITRATE IV Last administered on 08/01/16 18:50; Admin Dose 3.75 MLS/HR; Start 08/01/16 at 19:30 Levothyroxine Sodium (Synthroid Iv) 100 mcg DAILY@06 IV Last administered on 06:06; Admin Dose 100 MCG; Start 08/02/16 at 06:00 Calcium Carbonate (Ca Carbonate) 1,250 mg Q8 NGT Last administered on 08/02/16 06:23; Admin Dose 1,250 MG; Start 08/01/16 at 22:00 Eye Lubricant 2 drop 2 drop QID BOTH EYES Last administered on 08/02/16 09:57; Admin Dose 2 DROP; Start 08/02/16 at 09:00 Potassium Phosphate/Sodium Chloride (K Phos (Meq)/NS) 254.5455 ml @ 63.636 m... ONCE ONCE IVPB Last administered on 08/02/16 09:55; Admin Dose 63.636 MLS /HR; Start 08/02/16 at 09:30; Stop 08/02/16 at 13:29 Insulin Aspart (Novolog Insulin Pen) NOVOLOG *MODERATE* ALGORI... Q4 SC Last administered on 08/02/16 09:56; Admin Dose 10 UNIT; Start 08/02/16 at 09:00 Insulin Human NPH (Humulin N) 10 unit Q6 SC ; Start 08/02/16 at 12:00 Miscellaneous Information 1 ea NOTE XX ; Start 08/02/16 at 09:00 Glucose (Glutose) 15 gm Q15M PRN PO DECREASED GLUCOSE; Start 08/02/16 at 09:00 Glucose (Glutose) 22.5 gm Q15M PRN PO DECREASED GLUCOSE; Start 08/02/16 at 09:00 Dextrose (D50w Syringe) 25 ml Q15M PRN IV DECREASED GLUCOSE; Start 08/02/16 at 09:00 Dextrose (D50w Syringe) 50 ml Q15M PRN IV DECREASED GLUCOSE; Start 08/02/16 at 09:00 Glucagon (Glucagen) 1 mg Q15M PRN IM DECREASED GLUCOSE; Start 08/02/16 at 09:00 Glucose 15 gm 15 gm Q15M PRN BUCCAL DECREASED GLUCOSE; Start 08/02/16 at 09:00 Midazolam HCl 50 ml @ 1 mls/hr TITRATE IV Last administered on 08/02/16 09:58; Admin Dose 2 MLS/HR; Start 08/02/16 at 09:30 Fentanyl (Sublimaze) 100 ml @ 2.5 mls/hr TITRATE IV Last administered on 09:58; Admin Dose 2.5 MLS/HR; Start 08/02/16 at 09:30 Assessment/Plan Chief Complaint/Hosp Course IMPRESSION AND PLAN: 1. Acute renal failure with severe metabolic acidosis, etiology of which remains unclear, possible acute tubular necrosis injury versus prerenal. 2. Respiratory failure secondary to significant metabolic acidosis and subsequent cardiac arrest. Probable ARDS 3. Severe hypothyroidism 4. History of ETOH. 5. Septic shock PLAN: 1. Continue to correct metabolic acidosis with intravenous bicarbonate and aggressive volume resuscitation. 2. Renal consult. Hemodialysis as tolerated, discussed need for CRRT 3. Endocrinology consult. Appreciated 4. Continue vasopressors decreased as tolerated 5. DVT and GI prophylaxis. 6. Continue antibiotics 7. Continue steroids Overall prognosis remains guarded Problems: NIKOLE KWON MD, [facility] Aug 02, 2016 10:54
--- NOTE | 2016-08-02 11:24 | PN ---
Date/Time of Note Date/Time of Note DATE: 08/02/16 TIME: 11:14 Assessment/Plan VTE Prophylaxis VTE Prophylaxis Intervention: SCD's Lines/Catheters IV Catheter Type (from Nrs): judd Urinary Cath still in place: Yes Reason Cath still needed: other (indicate) Assessment/Plan Chief Complaint/Hosp Course ASSESSMENT AND PLAN: 1. Status post code/cardiac arrest, underlying etiology is unclear, if this is from electrolyte versus primary cardiac. We will continue current medical management. Serial troponin mildly elevated which may be secondary to CPR, follow-up 2D echo result. Follow up with cardiology. 2. Ventilator dependent respiratory failure Likely secondary to #1, patient is intubated continue vent management criminal psychologist been consulted 3. Acute kidney injury with unknown baseline creatinine. Likely secondary to volume depletion and possible tubular injury. The patient did have a code arrest; therefore, tubular injury may also have occurred. Continue aggressive IV hydration. Continue hemodialysis as per nephrology, renally dose all meds, avoid nephrotoxins. Nephrology has been consulted, follow-up his recommendations and follow-up renal panel in a.m. 4. Hypokalemia. Repleted with potassium chloride. Continue to monitor. 5. Anion gap metabolic acidosis. Likely secondary to acute kidney injury. Follow-up serial lactic acid level. Continue bicarbonate drip. We will follow up an ABG. Nephrology and pulmonology consulted 6. Sepsis. Continue IV fluid and pressors, patient is afebrile 7. Acute encephalopathy. Etiology is toxic metabolic versus alcohol intoxication. Continue to monitor. Follow-up CT of the brain when patient is more stable 8. Hypothyroidism. Follow up TSH level. Continue Synthroid. 9. History of alcohol use. Monitor closely for any signs of delirium tremens. Will start banana bag status post bicarbonate drip 10. Hypoglycemia. At this time patient is hyperglycemic likely secondary to D5 IV fluids, continue insulin sliding scale 11. Anemia. Continue to monitor hemoglobin and hematocrit levels. 12. Hypomagnesemia. Repleted 13. Acute diarrhea. Etiology may be secondary to gastroenteritis. Continue to monitor. Follow-up stool culture We will continue monitor patient closely for recommendation management treatment as clinical course Condition: Guarded Throat Cutter management and recommendation is appreciated Problems: Subjective 24 Hr Interval Summary Free Text/Dictation Patient is status post cardiac arrest 2 Status post 1 dose of epinephrine patient regained spontaneous circulation At this time patient is on 4 pressors Intubated Sedation via propofol and fentanyl Exam/Review of Systems Vital Signs Vitals Vital Signs Date Time Temp Pulse Resp B/P Pulse Ox O2 Delivery O2 Flow Rate FiO2 08/02/16 11:11 95 08/02/16 11:00 30 114/81 96 Mechanical Ventilator 08/02/16 08:00 100 08/02/16 07:45 97.8 08/01/16 05:00 4.0 Intake and Output 08/01/16 08/01/16 08/02/16 15:00 23:00 07:00 Intake Total 1250 ml 3546.90 ml 2498.85 ml Output Total 30 ml 20 ml 260 ml Balance 1220 ml 3526.90 ml 2238.85 ml Exam General: The patient is morbidly obese, intubated HEENT: Atraumatic, normocephalic. The pupils are equal and sluggish. Neck: No JVP or lymphadenopathy Chest: Normal Lungs: Decreased breath sounds bilateral lower lung field Heart: Normal S1-S2, tachycardic Abdomen: Soft , nontender, nondistended , bowel sounds are present. Extremities: Normal to inspection, + 1 edema no cyanosis Neurologic: Normal mental status,The patient is awake, alert and oriented . Results Result Diagram: 08/02/16 0600 08/02/16 0600 Results 24 hrs Laboratory Tests Test 08/01/16 11:25 08/01/16 13:48 08/01/16 16:40 08/01/16 18:10 Blood Gas Specimen Source Blood arterial Arterial Blood Date Drawn 08/01/2016 11:40:41 AM Arterial Blood pH (Temp corrected) 7.147 *L Arterial Blood pCO2 (Temp correct) 51.3 H Arterial Blood pO2 (Temp corrected) 31.0 *L Arterial Blood HCO3 17.3 L Arterial Blood Base Excess -11.2 L Arterial Blood Oxygen Saturation 58.2 L Stanley Test ACCEPTAB Arterial Blood Gas Puncture Site Right Radial Arterial Blood Carboxyhemoglobin 0.1 Arterial Blood Methemoglobin 0.7 Blood Gas A-a O2 Differential 630.7 H Oxyhemoglobin Percent 57.7 L Total Hemoglobin 10.1 L Blood Gas Temperature 37.0 Blood Gas Respiration Rate 24.0 Blood Gas Actual Respiration Rate 25 Blood Gas Modality VENT - AC FiO2 100.0 Blood Gas Tidal Volume 600.0 Blood Gas Low PEEP Setting 8.0 Blood Gas Critical Value Read Back E VAMSI RN Blood Gas Notified Whom BRIGHTD Blood Gas Notified Time 08/01/2016 11:57:31 AM Lactic Acid Level 7.0 *H 12.2 *H Troponin I 0.059 0.070 Bedside Glucose 166 Magnesium Level 1.5 L Test 08/01/16 19:20 08/01/16 21:13 08/02/16 00:41 08/02/16 01:50 Blood Gas Specimen Source Blood arterial Arterial Blood Date Drawn 08/01/2016 7:20:08 PM Arterial Blood pH (Temp corrected) 7.229 *L Arterial Blood pCO2 (Temp correct) 35.1 Arterial Blood pO2 (Temp corrected) 55.5 L Arterial Blood HCO3 14.3 L Arterial Blood Base Excess -12.2 L Arterial Blood Oxygen Saturation 84.8 L Stanley Test ACCEPTAB Arterial Blood Gas Puncture Site Left Radial Arterial Blood Carboxyhemoglobin 0.3 Arterial Blood Methemoglobin 0.8 Blood Gas A-a O2 Differential 622.4 H Oxyhemoglobin Percent 83.9 L Total Hemoglobin 9.2 L Blood Gas Temperature 37.0 Blood Gas Respiration Rate 30.0 Blood Gas Actual Respiration Rate 31 Blood Gas Modality VENT - AC FiO2 100.0 Blood Gas Tidal Volume 750.0 Blood Gas Low PEEP Setting 20.0 Blood Gas Critical Value Read Back TERRIE RN Blood Gas Notified Whom JAN Blood Gas Notified Time 08/01/2016 7:30:53 PM Sodium Level 138 Potassium Level 2.9 *L Chloride Level 104 Carbon Dioxide Level 17 L Anion Gap 20 H Blood Urea Nitrogen 30 H Creatinine 3.33 H Glucose Level 217 Calcium Level 6.9 L Total Bilirubin 0.5 Direct Bilirubin 0.30 #H Indirect Bilirubin 0.2 Aspartate Amino Transf (AST/SGOT) 229 #H Alanine Aminotransferase (ALT/SGPT) 75 H Alkaline Phosphatase 83 Total Protein 6.7 # Albumin 3.6 Globulin 3.10 Albumin/Globulin Ratio 1.16 Lactic Acid Level 12.4 *H Magnesium Level 1.6 L Troponin I 0.102 Urine Color YELLOW Urine Clarity CLEAR Urine pH 5.5 Urine Specific [place] 1.020 Urine Ketones TRACE Urine Nitrite NEGATIVE Urine Bilirubin 2+ H Urine Ictotest NEGATIVE Urine Urobilinogen 0.2 E.U./dL Urine Leukocyte Esterase NEGATIVE Urine Microscopic RBC >200 Urine Microscopic WBC 0-2 Urine Squamous Epithelial Cells FEW Urine Bacteria MANY Urine Hyaline Casts FEW Urine Hemoglobin 3+ H Urine Random Creatinine 182.01 Urine Random Sodium 63 Urine Glucose NEGATIVE Urine Total Protein 112.0 H Test 08/02/16 06:00 08/02/16 07:00 08/02/16 09:53 White Blood Count 7.5 # Red Blood Count 2.46 L Hemoglobin 8.9 L Hematocrit 23.9 L Mean Corpuscular Volume 97.2 Mean Corpuscular Hemoglobin 36.2 H Mean Corpuscular Hemoglobin Concent 37.2 H Red Cell Distribution Width 14.6 H Platelet Count 120 L Mean Platelet Volume 10.9 H Neutrophils % 33.0 L Band Neutrophils % 39.0 H Lymphocytes % 14.0 L Monocytes % 4.0 Eosinophils % 3.0 Metamyelocytes % 6.0 H Myelocytes % 1.0 H Neutrophils # 2.5 Lymphocytes # 1.1 Monocytes # 0.3 Eosinophils # 0.2 Metamyelocytes # 0.5 Myelocytes # 0.1 Sodium Level 133 L Potassium Level 3.5 Chloride Level 99 Carbon Dioxide Level 17 L Anion Gap 21 H Blood Urea Nitrogen 30 H Creatinine 3.16 H Glucose Level 337 H Lactic Acid Level 11.4 *H Calcium Level 6.6 L Phosphorus Level 1.5 L Magnesium Level 1.7 Total Bilirubin 0.4 Direct Bilirubin 0.20 Indirect Bilirubin 0.2 Aspartate Amino Transf (AST/SGOT) 311 H Alanine Aminotransferase (ALT/SGPT) 72 H Alkaline Phosphatase 82 Total Protein 6.4 Albumin 3.5 Globulin 2.90 Albumin/Globulin Ratio 1.20 Lipase 228 Blood Gas Specimen Source Blood arterial Arterial Blood Date Drawn 08/02/2016 7:30:55 AM Arterial Blood pH (Temp corrected) 7.404 Arterial Blood pCO2 (Temp correct) 24.0 L Arterial Blood pO2 (Temp corrected) 64.6 L Arterial Blood HCO3 14.7 L Arterial Blood Base Excess -8.7 L Arterial Blood Oxygen Saturation 92.0 L Stanley Test ACCEPTAB Arterial Blood Gas Puncture Site Right Radial Arterial Blood Carboxyhemoglobin 0.3 Arterial Blood Methemoglobin 0.9 Blood Gas A-a O2 Differential 624.4 H Oxyhemoglobin Percent 90.9 L Total Hemoglobin 9.3 L Blood Gas Temperature 37.0 Blood Gas Respiration Rate 30.0 Blood Gas Actual Respiration Rate 30 Blood Gas Modality VENT - AC FiO2 100.0 Blood Gas Tidal Volume 750.0 Blood Gas Low PEEP Setting 16.0 Blood Gas Notified Whom JLD Blood Gas Notified Time 08/02/2016 7:55:42 AM Bedside Glucose 333 H Medications Medications Current Medications Lorazepam (Ativan) 0.5 mg Q6H PRN IV ANXIETY; Start 08/01/16 at 03:00 Ondansetron HCl (Zofran Inj) 4 mg Q6H PRN IV NAUSEA AND/OR VOMITING; Start at 03:00 Metoclopramide HCl (Reglan) 10 mg Q6H PRN IV NAUSEA AND/OR VOMITING; Start at 03:00 Acetaminophen (Tylenol Tab) 650 mg Q6H PRN PO PAIN LEVEL 1-3 OR FEVER; Start at 03:00 Heparin Sodium (Porcine) 5000 unit 5,000 unit Q8 SC Last administered on 06:10; Admin Dose 5,000 UNIT; Start 08/01/16 at 06:00 Sodium Bicarbonate/ Dextrose (Na Bicarb/D5W) 1,000 ml @ 100 mls/hr Q10H IV Last administered on 08/02/16 04:11; Admin Dose 100 MLS/HR; Start 08/01/16 at 07 :00 Acetaminophen (Tylenol Supp) 650 mg Q4H PRN [place] PAIN LEVEL 1-3 OR FEVER; Start 08/01/16 at 06:30 Pantoprazole 40 mg 40 mg BID@06,18 IV Last administered on 08/02/16 06:06; Admin Dose 40 MG; Start 08/01/16 at 06:00 Propofol 100 ml @ 3.33 mls/hr Q12H IV Last administered on 08/02/16 09:30; Admin Dose 26.64 MLS/HR; Start 08/01/16 at 09:30 Phenylephrine HCl 40 mg/Dextrose 500 ml @ 0 mls/hr TITRATE IV Last administered on 08/02/16 04:58; Admin Dose 112.5 MLS/HR; Start 08/01/16 at 16:00 Norepinephrine 16 mg/Dextrose 500 ml @ 0 mls/hr TITRATE IV Last administered on 08/02/16 08:00; Admin Dose 22.5 MLS/HR; Start 08/01/16 at 16:00 Cefepime HCl (Maxipime 1gm/50 ml (Pmx)) 50 ml @ 100 mls/hr Q24H IVPB Last administered on 08/01/16 17:36; Admin Dose 100 MLS/HR; Start 08/01/16 at 16:00 Methylprednisolone Sodium Succinate 60 mg 60 mg Q6 IV Last administered on 06:06; Admin Dose 60 MG; Start 08/01/16 at 18:00 Vasopressin 60 unit/Dextrose 60 ml @ 1.2 mls/hr Q12H IV Last administered on 06:13; Admin Dose 2.4 MLS/HR; Start 08/01/16 at 17:30 Epinephrine/ Sodium Chloride (EPINEPHrine/NS) 250 ml @ 3.75 mls/hr TITRATE IV Last administered on 08/01/16 18:50; Admin Dose 3.75 MLS/HR; Start 08/01/16 at 19:30 Levothyroxine Sodium (Synthroid Iv) 100 mcg DAILY@06 IV Last administered on 06:06; Admin Dose 100 MCG; Start 08/02/16 at 06:00 Calcium Carbonate (Ca Carbonate) 1,250 mg Q8 NGT Last administered on 08/02/16 06:23; Admin Dose 1,250 MG; Start 08/01/16 at 22:00 Eye Lubricant 2 drop 2 drop QID BOTH EYES Last administered on 08/02/16 09:57; Admin Dose 2 DROP; Start 08/02/16 at 09:00 Potassium Phosphate/Sodium Chloride (K Phos (Meq)/NS) 254.5455 ml @ 63.636 m... ONCE ONCE IVPB Last administered on 08/02/16 09:55; Admin Dose 63.636 MLS /HR; Start 08/02/16 at 09:30; Stop 08/02/16 at 13:29 Insulin Aspart (Novolog Insulin Pen) NOVOLOG *MODERATE* ALGORI... Q4 SC Last administered on 08/02/16 09:56; Admin Dose 10 UNIT; Start 08/02/16 at 09:00 Insulin Human NPH (Humulin N) 10 unit Q6 SC ; Start 08/02/16 at 12:00 Miscellaneous Information 1 ea NOTE XX ; Start 08/02/16 at 09:00 Glucose (Glutose) 15 gm Q15M PRN PO DECREASED GLUCOSE; Start 08/02/16 at 09:00 Glucose (Glutose) 22.5 gm Q15M PRN PO DECREASED GLUCOSE; Start 08/02/16 at 09:00 Dextrose (D50w Syringe) 25 ml Q15M PRN IV DECREASED GLUCOSE; Start 08/02/16 at 09:00 Dextrose (D50w Syringe) 50 ml Q15M PRN IV DECREASED GLUCOSE; Start 08/02/16 at 09:00 Glucagon (Glucagen) 1 mg Q15M PRN IM DECREASED GLUCOSE; Start 08/02/16 at 09:00 Glucose 15 gm 15 gm Q15M PRN BUCCAL DECREASED GLUCOSE; Start 08/02/16 at 09:00 Midazolam HCl 50 ml @ 1 mls/hr TITRATE IV Last administered on 08/02/16 09:58; Admin Dose 2 MLS/HR; Start 08/02/16 at 09:30 Fentanyl (Sublimaze) 100 ml @ 2.5 mls/hr TITRATE IV Last administered on 09:58; Admin Dose 2.5 MLS/HR; Start 08/02/16 at 09:30 KAREN GOMEZ MD Aug 02, 2016 11:24
[2016-08-02] MEDS: NPH, HUMAN INSULIN ISOPHANE 3ML VIAL SC SCH ×2 (13:13→17:07)
[2016-08-02] MEDS: CEFEPIME 1GM/50 ML (PMX) 50 ML IVPB SCH (15:29)
--- NOTE | 2016-08-02 17:12 | RADRPT ---
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 Physician: SEPIDEH PRASAD Quality: Good Procedures: Transthoracic echocardiogram with complete 2D, M-Mode, and doppler examination. Indications: Cardiac Arrest. 2D/M Mode Doppler Measurement Value Normal Ranges Measurement Value Normal Ranges LVIDd 2D 4.8 3.5 - 5.6 cm AV Peak [place] 1.5 m/sec LVIDs 2D 3.5 2.1 - 4.1 cm AV Peak PG 8.5 mmHg LVPWd 2D 1.2 0.6 - 1.1 cm LVOT Peak [place] 1.3 m/sec IVSd 2D 1.2 0.6 - 1.1 cm LVOT Peak PG 6.9 mmHg AoR Diam 2D 2.5 2.0 - 3.7 cm MV E Peak [place] 0.8 m/sec EDV 2D 106.8 cm3 MV A Peak [place] 0.5 m/sec ESV 2D 44.0 cm3 MV E/A 1.5 LA Dimen 2D 3.8 2.3 - 4.0 cm MV Decel Time 204 msec MV Decel [place] 4 MV E/A 1.5 TR Peak Charles 2.0 m/sec TR Peak PG 15.8 mmHg Findings Left Ventricle: Normal left ventricular systolic function. Normal left ventricular cavity size. Mild concentric left ventricular hypertrophy. Ejection fraction is visually estimated at 60 %. Tissue Doppler/Mitral Doppler indices are consistent with impaired relaxation (Stage I diastolic dysfunction). Right Ventricle: Normal right ventricular size. Normal right ventricular systolic function. Left Atrium: There is mild enlargement of left atrium. Right Atrium: The right atrium is normal in size. Mitral Valve: Mild mitral leaflet calcification. Trace mitral regurgitation. Aortic Valve: No significant aortic stenosis or insufficiency. Aortic valve not well visualized. Tricuspid Valve: Normal appearance and function of the tricuspid valve with trace physiologic regurgitation. Unable to obtain RVSP due to minimal presence of tricuspid regurgitation. Pulmonic Valve: Pulmonic valve not well visualized. There is trace pulmonic regurgitation. Pericardium: Normal pericardium with no significant pericardial effusion. Aorta: Normal aortic root. IVC: Inferior vena cava without respiratory collapse, however, patient on ventilator. Conclusions 1.Technically difficult study with poor endocardial visualization. 2.Normal left ventricular systolic function. Normal left ventricular cavity size. Mild concentric left ventricular hypertrophy. Ejection fraction is visually estimated at 60 %. Tissue Doppler/Mitral Doppler indices are consistent with impaired relaxation (Stage I diastolic dysfunction). 3.No significant valvular stenosis or regurgitation seen. 4.Unable to obtain RVSP due to minimal presence of tricuspid regurgitation. Inferior vena cava without respiratory collapse, however, patient on ventilator. Electronically Signed By: Sepideh Prasad 02-Aug-2016 17:11:59 -0700 Patient Name: CHARLOTTE CONTRERAS Study Date: 02-Aug-2016 [id number]
--- NOTE | 2016-08-02 17:42 | RADRPT ---
Vent Rate: 64 bpm RR Interval: 0 msec [place] Interval: 200 msec QRS Duration: 102 msec QT Interval: 520 msec QTC Interval: 536 msec P-R-T [place]: 55 - 59 - -50 degrees Sinus rhythm with occasional premature ventricular complexes Nonspecific ST and T wave abnormality Prolonged QT Abnormal ECG Electronically Signed By: Tanner Prasad [id number]
[2016-08-02] MEDS: INSULIN GLARGINE [LANtus] 3 ML PEN SC SCH (20:51)
[2016-08-03] VITALS (105 sets, daily range): BP systolic 93–155; BP diastolic 62–120; PULSE 84–99; RESP 21–31
[2016-08-03] MEDS: METHYLPREDNISOLONE 125 MG INJ IV SCH ×4 (00:31→17:19)
[2016-08-03] MEDS: INSULIN ASPART [NOVOLOG] 3 ML PEN SC SCH ×6 (00:47→20:35)
[2016-08-03] MEDS: NPH, HUMAN INSULIN ISOPHANE 3ML VIAL SC SCH ×4 (00:53→17:50)
[2016-08-03] MEDS: SODIUM BICARBONATE (IV ADD) 150 MEQ in DEXTROSE 5% 850 ML IV SCH (01:28)
[2016-08-03] MEDS ORDERED: ACCU-CHEK XX SCH (02:00)
[2016-08-03] MEDS: VASOPRESSIN 60 UNIT in DEXTROSE 5% 57 ML IV SCH ×2 (03:55→17:30)
[2016-08-03] MEDS: MIDAZOLAM (DRIP) 50 mg/50 mL 50 ML IV SCH (04:30)
[2016-08-03 05:25] LABS: ADD SCAN DIFF NO
[2016-08-03] MEDS: LEVOTHYROXINE 100 MCG VIAL IV SCH (05:41)
[2016-08-03] MEDS: PANTOPRAZOLE 40 MG INJ IV SCH ×2 (05:41→17:19)
[2016-08-03] MEDS: HEPARIN 5,000 UNIT/0.5 ML VIAL SC SCH ×3 (05:45→22:49)
[2016-08-03 05:51] LABS: ABNORMAL IP MESSAGE 1; HEMOGLOBIN 8.9 g/dl (14.0-18.0); MEAN CORPUSCULAR HEMOGLOBIN 34.8 pg (29.0-33.0); MEAN CORPUSCULAR HGB CONC 37.1 g/dl (32.0-37.0); MEAN CORPUSCULAR VOLUME 93.8 fl (82.0-101.0); MEAN PLATELET VOLUME 11.3 fl (7.4-10.4); RED BLOOD COUNT 2.56 10^6/ul (4.70-6.10); RED CELL DISTRIBUTION WIDTH 14.3 % (11.5-14.5); WHITE BLOOD COUNT 17.4 10^3/ul (4.8-10.8)
[2016-08-03 05:52] LABS: ALBUMIN 3.6 g/dl (3.3-4.9); ALBUMIN/GLOBULIN RATIO 1.12; BILIRUBIN,DIRECT 2.1 mg/dl (0.00-0.20); BILIRUBIN,INDIRECT 0.5 mg/dl (0-1.1); BILIRUBIN,TOTAL 2.6 mg/dl (0.2-1.3); CALCIUM 6.8 mg/dl (8.4-10.2); CREATININE 2.72 mg/dl (0.61-1.24); MAGNESIUM 1.3 mg/dl (1.7-2.5); PLATELET COUNT 92 10^3/UL (140-415); POTASSIUM 3.2 mmol/L (3.5-5.1); TOTAL PROTEIN 6.8 g/dl (6.1-8.1)
[2016-08-03] MEDS: CA CARBONATE (250 MG/ML) 5ML CUP NGT SCH ×5 (06:03→22:46)
[2016-08-03] MEDS ORDERED: MAGNESIUM SULFATE 2 GM/50 ML 50 ML IVPB ONE (08:00)
[2016-08-03] MEDS ORDERED: POTASSIUM CHLORIDE 250 ML IVPB ONE (08:00)
[2016-08-03] MEDS: SOD CHLORIDE 0.9% 1,000 ML IV SCH (08:08)
[2016-08-03] MEDS: ARTIFICIAL TEARS 15 ML OPH BOTH EYES SCH ×4 (08:20→20:34)
[2016-08-03] MEDS ORDERED: PIPER-TAZO 2.25 GM (PMX) 50 ML IVPB SCH (08:30)
--- NOTE | 2016-08-03 08:39 | PN ---
DATE: 08/03/2016 SUBJECTIVE: The patient remains critically ill. Remains on pressor support, although now weaned do wn from 4 to 2. The patient had hemodialysis yesterday and tolerated it well. The patient remains obtunded. No other acute events noted. No hemoptysis, hematemesis or hematochezia. OBJECTIVE: VITAL SIGNS: Blood pressure is 132/88, respirations 32, pulse 87, temperature 98.6. I's AND O'S: The patient had 4.6 liters in and 955 out, 1.8 liters out from hemodialysis. HEENT: Head is normocephalic. Pupils are reactive. NECK: Supple. HEART: Regular rate, tachycardic. LUNGS: Showed diminished breath sounds at the base. Positive rhonchi and crackles. ABDOMEN: Obese, soft, nontender to palpation. No rebound or guarding. EXTREMITIES: Negative for clubbing or cyanosis. Positive edema. DERMATOLOGIC: No rashes. MUSCULOSKELETAL: Have no joint effusion. NEUROLOGIC: No change in exam. MEDICATIONS: The patient's medications have been reviewed. LABORATORY DATA: Shows sodium 135, potassium 2.2, chloride 91, BUN 32, creatinine 2.72. Lactic aci d 11.5, calcium 6.8, ionized calcium 7.9, magnesium 1.3. White count 17.4, hemoglobin , hemat ocrit 24.0, platelet count is 92. The patient's urine cultures were positive. Blood cultures negat laquita to date. ASSESSMENT AND PLAN: 1. Nonoliguric acute kidney injury, with an unknown baseline creatinine. Etiology is secondary to acute tubular necrosis due to septic shock. The patient was initiated on urgent hemodialysis due to severe metabolic acidemia and solute clearance. The patient had hemodialysis yesterday and tolerat ed it well, with 1.5 liters removed. Anticipate daily dialysis for volume removal and solute cleara nce, as the patient tolerates. Will dialyze today for 3 hours on a 4K bath, calcium 3.0, and monito r closely. 2. Mixed acid base disorder. The patient has anion gap metabolic acidosis and metabolic alkalosis. The patient's last ABG shows a pH of 7.40 with a pCO2 of 24. Lactic acid remains elevated at 11.5 . Plan at this point is to discontinue bicarbonate drip. Will continue to monitor serial ABGs. 3. Ventilator-dependent respiratory failure. Vent settings have been reviewed. ABG has been revie wed. Continue to monitor. Follow up vent settings. Continue to titrate down FIO2 if possible. 4. Volume overload secondary to acute congestive heart failure, diastolic and systolic heart failur e. Plan is to minimize IV fluids if possible. Will continue ultrafiltration with dialysis as tolera sanju. Will follow up with cardiology, followup a 2D echo. 5. Shock. Etiology is felt to be multifactorial, cardiac and possible septic. The patient is curr ently being weaned off pressor support. Remains on broad-spectrum antibiotics. Would continue the current treatment plan, titrate off pressors if possible. Will decrease the rate of IV fluids as th e patient is markedly volume overloaded. 6. Status post cardiopulmonary arrest. Etiology may be metabolic, possibly due to severe acidemia. The patient is status post return of spontaneous circulation. Continue to monitor. Follow up wit h ongoing cardiology workup. 7. Acute encephalopathy. Etiology is toxic metabolic. Continue to monitor. 8. Hypothyroidism. Continue Synthroid. 9. Anemia. Continue to monitor hemoglobin and hematocrit levels. 10. Mineral bone disorder. The patient remains hypophosphatemic and hypocalcemic, in part due to o ngoing sepsis. Plan is to continue to replete with potassium phosphate, will continue high calcium bath with dialysis. 11. Hypomagnesemia. Replete with magnesium sulfate. 12. Hyponatremia. Resolved. 13. Lactic acidosis secondary to shock. Continue to treat underlying shock, as stated above. Please note, I spent over 35 minutes of critical care time with this patient. Dictated By: BALDOMERO TOVAR/CHARLES Conf#: [id number] DID#: [id number]
--- NOTE | 2016-08-03 08:46 | CONS ---
Date/Time of Note Date/Time of Note DATE: 08/03/16 TIME: 08:31 Assessment/Plan Assessment/Plan Chief Complaint/Hosp Course 60-year-old right-handed -[place] gentleman normally cared for at the [facility]. He was admitted to the hospital but it had cardiac arrest in the hospital. Please note that his picture actually looked a bit like adrenal insufficiency except that he has a serum cortisol level of 44 prior to his arrest. He had a TSH of 21 with a low free T4 and a low T3. Patient is intubated and unable to give a history although he is able to look and follows rudimentary commands Problems: (1) Hypocalcemia Status: Acute Comment: He has significant hypocalcemia with a low ionized calcium. We will start trying to give him his calcium through the NG tube especially given the renal dysfunction. An additional give him a dose of calcitriol and follow him along for this. I believe this is part of the sepsis picture that brought him in. Possible source for this may be the GI tract that might be C. difficile colitis. Primary team is appropriately tracing this down (2) High anion gap metabolic acidosis Status: Acute Comment: On dialysis and improving. (3) Abnormal LFTs Status: Acute Comment: Ultrasound of the abdomen showed a significantly fatty infiltration of liver. Please note given the patient's alcohol consumption this is not nonalcoholic fatty liver disease. We will have to normally watch for evidence of acute hepatitis given everything this happened but also for alcohol withdrawal (4) Alcohol abuse Status: Acute Comment: As above he has been on banana bag and has been being repleted nutritionally. He is not at the point where can start NG tube feedings given the? About the enterocolitis. C. difficile is pending. If the C. difficile is positive then that can be treated and then he can start on tube feedings. (5) Hypothyroidism Status: Chronic Comment: On treatment. Qualifiers: Hypothyroidism type: acquired Qualified Code: E03.9 - Acquired hypothyroidism Consultation Date/Type/Reason Admit Date/Time August 01, 2016 at 00:50 Initial Consult Date 08/01/16 Type of Consultation: Endocrinology Reason for Consultation Steroid-induced diabetes mellitus type 2; severe metabolic abnormalities Referring Provider: [facility]WON [facility] Interval Summary Free Text/Dictation On sedation Subjective hx not possible: pt non-verbal Exam/Review of Systems Vital Signs Vitals Vital Signs Date Time Temp Pulse Resp B/P Pulse Ox O2 Delivery O2 Flow Rate FiO2 08/03/16 06: 87 30 132/88 93 08/03/16 05:23 100 08/03/16 04:00 98.0 08/02/16 20:00 Mechanical Ventilator 08/01/16 05:00 4.0 Intake and Output 08/02/16 08/02/16 08/03/16 15:00 23:00 07:00 Intake Total 2122.23 ml 1079.20 ml 1137.2 ml Output Total 2025 ml 55 ml 165 ml Balance 97.23 ml 1024.20 ml 972.2 ml Exam Constitutional: non-verbal ENMT: intubated, other (Intubated and NG tube in place to suction) Neck: non-tender, supple Respiratory: clear to auscultation, normal air movement Cardiovascular: nl pulses, regular rate and rhythm Gastrointestinal: bowel sounds (Bowel sounds are active), nl liver, spleen, non -tender, soft Results Result Diagram: 08/03/16 0430 08/03/16 0430 Results 24 hrs Laboratory Tests Test 08/02/16 09:53 08/02/16 12:00 08/02/16 12:12 08/02/16 13:11 Bedside Glucose 333 H 293 H Stool Occult Blood POSITIVE Ionized Calcium (Measured) 0.9 L Test 08/02/16 17:06 08/02/16 20:45 08/03/16 00:40 08/03/16 04:30 Bedside Glucose 249 H 206 180 White Blood Count 17.4 #H Red Blood Count 2.56 L Hemoglobin 8.9 L Hematocrit 24.0 L Mean Corpuscular Volume 93.8 Mean Corpuscular Hemoglobin 34.8 H Mean Corpuscular Hemoglobin Concent 37.1 H Red Cell Distribution Width 14.3 Platelet Count 92 #L Mean Platelet Volume 11.3 H Neutrophils % Eosinophils % Neutrophils # Eosinophils # Sodium Level 135 Potassium Level 3.2 L Chloride Level 91 L Carbon Dioxide Level 22 Anion Gap 25 H Blood Urea Nitrogen 32 H Creatinine 2.72 H Glucose Level 197 # Lactic Acid Level 11.5 *H Calcium Level 6.8 L Phosphorus Level 1.3 L Magnesium Level 1.3 L Total Bilirubin 2.6 #H Direct Bilirubin 2.10 #H Indirect Bilirubin 0.5 Aspartate Amino Transf (AST/SGOT) 168 H Alanine Aminotransferase (ALT/SGPT) 65 Alkaline Phosphatase 87 Total Protein 6.8 Albumin 3.6 Globulin 3.20 Albumin/Globulin Ratio 1.12 Random Vancomycin Level 13.3 Test 08/03/16 05:53 08/03/16 08:24 Bedside Glucose 183 181 Medications Medications Current Medications Lorazepam (Ativan) 0.5 mg Q6H PRN IV ANXIETY; Start 08/01/16 at 03:00 Ondansetron HCl (Zofran Inj) 4 mg Q6H PRN IV NAUSEA AND/OR VOMITING; Start at 03:00 Metoclopramide HCl (Reglan) 10 mg Q6H PRN IV NAUSEA AND/OR VOMITING; Start at 03:00 Acetaminophen (Tylenol Tab) 650 mg Q6H PRN PO PAIN LEVEL 1-3 OR FEVER; Start at 03:00 Heparin Sodium (Porcine) (Heparin (5000 Units/0.5 ml)) 5,000 unit Q8 SC Last administered on 08/03/16 05:45; Admin Dose 5,000 UNIT; Start 08/01/16 at 06:00 Acetaminophen (Tylenol Supp) 650 mg Q4H PRN MI PAIN LEVEL 1-3 OR FEVER; Start 08/01/16 at 06:30 Pantoprazole 40 mg 40 mg BID@06,18 IV Last administered on 08/03/16 05:41; Admin Dose 40 MG; Start 08/01/16 at 06:00 Propofol 100 ml @ 3.33 mls/hr Q12H IV Last administered on 08/02/16 09:30; Admin Dose 26.64 MLS/HR; Start 08/01/16 at 09:30 Phenylephrine HCl 40 mg/Dextrose 500 ml @ 0 mls/hr TITRATE IV Last administered on 08/02/16 04:58; Admin Dose 112.5 MLS/HR; Start 08/01/16 at 16:00 Norepinephrine 16 mg/Dextrose 500 ml @ 0 mls/hr TITRATE IV Last administered on 08/02/16 22:17; Admin Dose 48.75 MLS/HR; Start 08/01/16 at 16:00 Cefepime HCl (Maxipime 1gm/50 ml (Pmx)) 50 ml @ 100 mls/hr Q24H IVPB Last administered on 08/02/16 15:29; Admin Dose 100 MLS/HR; Start 08/01/16 at 16:00 Methylprednisolone Sodium Succinate 60 mg 60 mg Q6 IV Last administered on 05:41; Admin Dose 60 MG; Start 08/01/16 at 18:00 Vasopressin 60 unit/Dextrose 60 ml @ 1.2 mls/hr Q12H IV Last administered on 03:55; Admin Dose 2.4 MLS/HR; Start 08/01/16 at 17:30 Epinephrine/ Sodium Chloride (EPINEPHrine/NS) 250 ml @ 3.75 mls/hr TITRATE IV Last administered on 08/01/16 18:50; Admin Dose 3.75 MLS/HR; Start 08/01/16 at 19:30 Levothyroxine Sodium (Synthroid Iv) 100 mcg DAILY@06 IV Last administered on 05:41; Admin Dose 100 MCG; Start 08/02/16 at 06:00 Calcium Carbonate (Ca Carbonate) 1,250 mg Q8 NGT Last administered on 08/03/16 06:03; Admin Dose 1,250 MG; Start 08/01/16 at 22:00 Eye Lubricant (Artificial Tears Oph) 2 drop QID BOTH EYES Last administered on 08/02/16 22:17; Admin Dose 2 DROP; Start 08/02/16 at 09:00 Insulin Aspart (Novolog Insulin Pen) NOVOLOG *MODERATE* ALGORI... Q4 SC Last administered on 08/03/16 06:01; Admin Dose 4 UNIT; Start 08/02/16 at 09:00 Insulin Human NPH (Humulin N) 10 unit Q6 SC Last administered on 08/03/16 06:06 ; Admin Dose 10 UNIT; Start 08/02/16 at 12:00 Miscellaneous Information 1 ea NOTE XX ; Start 08/02/16 at 09:00 Glucose (Glutose) 15 gm Q15M PRN PO DECREASED GLUCOSE; Start 08/02/16 at 09:00 Glucose (Glutose) 22.5 gm Q15M PRN PO DECREASED GLUCOSE; Start 08/02/16 at 09:00 Dextrose (D50w Syringe) 25 ml Q15M PRN IV DECREASED GLUCOSE; Start 08/02/16 at 09:00 Dextrose (D50w Syringe) 50 ml Q15M PRN IV DECREASED GLUCOSE; Start 08/02/16 at 09:00 Glucagon (Glucagen) 1 mg Q15M PRN IM DECREASED GLUCOSE; Start 08/02/16 at 09:00 Glucose 15 gm 15 gm Q15M PRN BUCCAL DECREASED GLUCOSE; Start 08/02/16 at 09:00 Midazolam HCl 50 ml @ 1 mls/hr TITRATE IV Last administered on 08/03/16 04:30; Admin Dose 10 MLS/HR; Start 08/02/16 at 09:30 Fentanyl (Sublimaze) 100 ml @ 2.5 mls/hr TITRATE IV Last administered on 20:55; Admin Dose 7.5 MLS/HR; Start 08/02/16 at 09:30 Insulin Glargine 5 unit 5 unit DAILY@20 SC Last administered on 08/02/16 20:51 ; Admin Dose 5 UNIT; Start 08/02/16 at 20:00 Sodium Chloride 1,000 ml @ 50 mls/hr Q20H IV Last administered on 08/03/16 08: 08; Admin Dose 50 MLS/HR; Start 08/03/16 at 08:00 Magnesium Sulfate 50 ml @ 25 mls/hr ONCE ONCE IVPB Last administered on 08:08; Admin Dose 25 MLS/HR; Start 08/03/16 at 08:00; Stop 08/03/16 at 09:59 Potassium Chloride (KCl 40 MEQ/250 ML NS) 250 ml @ 62.5 mls/hr ONCE ONCE IVPB ; Start 08/03/16 at 08:00; Stop 08/03/16 at 11:59 ERIN MARTÍNEZ MD Aug 03, 2016 08:35
[2016-08-03 08:53] LABS: AADO2 Arterial 623.1 mmHg (7.0-24.0); Arterial Base Excess -0.6 mmol/L (-3.0-3); Arterial COHb 0.2 % (0.0-3.0); Arterial Fraction of Oxyhgb 92.2 % (93.0-99.0); Arterial HCO3 20.9 mmol/L (22.0-26.0); Arterial MetHb 0.5 % (0.0-1.5); Arterial Total Hemglobin 9.8 g/dl (12.0-18.0); MODE VENT - AC
[2016-08-03] MEDS ORDERED: CALCITRIOL (1 MCG/ML PO SYG) NGT ONE (09:00)
--- NOTE | 2016-08-03 09:21 | PN ---
Date/Time of Note Date/Time of Note DATE: 08/03/16 TIME: 09:12 Assessment/Plan VTE Prophylaxis VTE Prophylaxis Intervention: SCD's Lines/Catheters IV Catheter Type (from Nrs): Deni Urinary Cath still in place: Yes Reason Cath still needed: other (indicate) Assessment/Plan Chief Complaint/Hosp Course ASSESSMENT AND PLAN: 1. Status post code/cardiac arrest, underlying etiology is unclear, if this is from electrolyte versus primary cardiac. We will continue current medical management. Serial troponin mildly elevated which may be secondary to CPR, normal ejection fraction on 2D echocardiogram. Follow up with cardiology. 2. Ventilator dependent respiratory failure Likely secondary to #1, patient is intubated continue vent management title i instructional assistant been consulted 3. Acute kidney injury with unknown baseline creatinine. Likely secondary to volume depletion and possible tubular injury. The patient did have a code arrest; therefore, tubular injury may also have occurred. Continue aggressive IV hydration. Continue hemodialysis as per nephrology, renally dose all meds, avoid nephrotoxins. Nephrology has been consulted, follow-up his recommendations and follow-up renal panel in a.m. 4. Hypokalemia. Repleted with potassium chloride. Continue to monitor. 5. Anion gap metabolic acidosis. Likely secondary to acute kidney injury. Follow-up serial lactic acid level. Continue bicarbonate drip. We will follow up an ABG. Nephrology and pulmonology consulted 6. Sepsis. Continue IV fluid and pressors, start Zosyn 7. Acute encephalopathy. Etiology is toxic metabolic versus alcohol intoxication. Continue to monitor. Follow-up CT of the brain when patient is more stable 8. Hypothyroidism. Follow up TSH level. Continue Synthroid. 9. History of alcohol use. Monitor closely for any signs of delirium tremens. Will start banana bag status post bicarbonate drip 10. Hypoglycemia. At this time patient is hyperglycemic likely secondary to D5 IV fluids, continue insulin sliding scale 11. Anemia. Continue to monitor hemoglobin and hematocrit levels. 12. Hypomagnesemia. Repleted 13. Enterocolitis. Follow-up stool culture and C. difficile, patient has been started on Flagyl We will continue monitor patient closely for recommendation management treatment as clinical course Condition: Guarded Sound Installation Worker management and recommendation is appreciated Problems: Subjective 24 Hr Interval Summary Free Text/Dictation No acute changes Intubated and sedated Sedation via fentanyl and Versed Vent settin with FiO2 of 100% and PEEP of [address] Patient's sister at the bedside all the questions were answered According to patient's sister he has had difficulty with ambulation 3-4 weeks and there may be an noncompliance with medical management Exam/Review of Systems Vital Signs Vitals Vital Signs Date Time Temp Pulse Resp B/P Pulse Ox O2 Delivery O2 Flow Rate FiO2 08/03/16 08:00 88 08/03/16 06:15 30 132/88 93 08/03/16 05:23 100 08/03/16 04:00 98.0 08/02/16 20:00 Mechanical Ventilator 08/01/16 05:00 4.0 Intake and Output 08/02/16 08/02/16 08/03/16 15:00 23:00 07:00 Intake Total 2122.23 ml 1079.20 ml 1290.85 ml Output Total 2025 ml 55 ml 165 ml Balance 97.23 ml 1024.20 ml 1125.85 ml Exam General: The patient is moderately overweight, intubated HEENT: Atraumatic, normocephalic. The pupils are equal although sluggish. NG tube in place Neck: Supple Chest: Normal Lungs: Clear to auscultation bilaterally Heart: Normal S1-S2, Regular rhythm and rate. Abdomen: Soft , nontender, nondistended , bowel sounds are present. Extremities: Normal to inspection, no edema no cyanosis Neurologic: Sedated , opens his eyes during sedation holiday, Results Result Diagram: 08/03/16 0430 08/03/16 0430 Results 24 hrs Laboratory Tests Test 08/02/16 09:53 08/02/16 12:00 08/02/16 12:12 08/02/16 13:11 Bedside Glucose 333 H 293 H Stool Occult Blood POSITIVE Ionized Calcium (Measured) 0.9 L Test 08/02/16 17:06 08/02/16 20:45 08/03/16 00:40 08/03/16 04:30 Bedside Glucose 249 H 206 180 White Blood Count 17.4 #H Red Blood Count 2.56 L Hemoglobin 8.9 L Hematocrit 24.0 L Mean Corpuscular Volume 93.8 Mean Corpuscular Hemoglobin 34.8 H Mean Corpuscular Hemoglobin Concent 37.1 H Red Cell Distribution Width 14.3 Platelet Count 92 #L Mean Platelet Volume 11.3 H Neutrophils % Eosinophils % Neutrophils # Eosinophils # Sodium Level 135 Potassium Level 3.2 L Chloride Level 91 L Carbon Dioxide Level 22 Anion Gap 25 H Blood Urea Nitrogen 32 H Creatinine 2.72 H Glucose Level 197 # Lactic Acid Level 11.5 *H Calcium Level 6.8 L Phosphorus Level 1.3 L Magnesium Level 1.3 L Total Bilirubin 2.6 #H Direct Bilirubin 2.10 #H Indirect Bilirubin 0.5 Aspartate Amino Transf (AST/SGOT) 168 H Alanine Aminotransferase (ALT/SGPT) 65 Alkaline Phosphatase 87 Total Protein 6.8 Albumin 3.6 Globulin 3.20 Albumin/Globulin Ratio 1.12 Random Vancomycin Level 13.3 Test 08/03/16 05:53 08/03/16 07:00 08/03/16 08:24 Bedside Glucose 183 181 Blood Gas Specimen Source Blood arterial Arterial Blood Date Drawn 08/03/2016 7:30:43 AM Arterial Blood pH (Temp corrected) 7.546 H Arterial Blood pCO2 (Temp correct) 24.7 L Arterial Blood pO2 (Temp corrected) 65.2 L Arterial Blood HCO3 20.9 L Arterial Blood Base Excess -0.6 Arterial Blood Oxygen Saturation 92.8 L Stanley Test N/A Arterial Blood Gas Puncture Site Right Brachial Arterial Blood Carboxyhemoglobin 0.2 Arterial Blood Methemoglobin 0.5 Blood Gas A-a O2 Differential 623.1 H Oxyhemoglobin Percent 92.2 L Total Hemoglobin 9.8 L Blood Gas Temperature 37.0 Blood Gas Respiration Rate 30.0 Blood Gas Actual Respiration Rate 30 Blood Gas Modality VENT - AC FiO2 100.0 Blood Gas Tidal Volume 750.0 Blood Gas Low PEEP Setting 13.0 Blood Gas Notified Whom [place] Blood Gas Notified Time 08/03/2016 7:50:12 AM Medications Medications Current Medications Lorazepam (Ativan) 0.5 mg Q6H PRN IV ANXIETY; Start 08/01/16 at 03:00 Ondansetron HCl (Zofran Inj) 4 mg Q6H PRN IV NAUSEA AND/OR VOMITING; Start at 03:00 Metoclopramide HCl (Reglan) 10 mg Q6H PRN IV NAUSEA AND/OR VOMITING; Start at 03:00 Acetaminophen (Tylenol Tab) 650 mg Q6H PRN PO PAIN LEVEL 1-3 OR FEVER; Start at 03:00 Heparin Sodium (Porcine) (Heparin (5000 Units/0.5 ml)) 5,000 unit Q8 SC Last administered on 08/03/16 05:45; Admin Dose 5,000 UNIT; Start 08/01/16 at 06:00 Acetaminophen (Tylenol Supp) 650 mg Q4H PRN RI PAIN LEVEL 1-3 OR FEVER; Start 08/01/16 at 06:30 Pantoprazole 40 mg 40 mg BID@06,18 IV Last administered on 08/03/16 05:41; Admin Dose 40 MG; Start 08/01/16 at 06:00 Propofol 100 ml @ 3.33 mls/hr Q12H IV Last administered on 08/02/16 09:30; Admin Dose 26.64 MLS/HR; Start 08/01/16 at 09:30 Phenylephrine HCl 40 mg/Dextrose 500 ml @ 0 mls/hr TITRATE IV Last administered on 08/02/16 04:58; Admin Dose 112.5 MLS/HR; Start 08/01/16 at 16:00 Norepinephrine 16 mg/Dextrose 500 ml @ 0 mls/hr TITRATE IV Last administered on 08/03/16 08:39; Admin Dose 26.25 MLS/HR; Start 08/01/16 at 16:00 Cefepime HCl (Maxipime 1gm/50 ml (Pmx)) 50 ml @ 100 mls/hr Q24H IVPB Last administered on 08/02/16 15:29; Admin Dose 100 MLS/HR; Start 08/01/16 at 16:00 Methylprednisolone Sodium Succinate 60 mg 60 mg Q6 IV Last administered on 05:41; Admin Dose 60 MG; Start 08/01/16 at 18:00 Vasopressin 60 unit/Dextrose 60 ml @ 1.2 mls/hr Q12H IV Last administered on 03:55; Admin Dose 2.4 MLS/HR; Start 08/01/16 at 17:30 Epinephrine/ Sodium Chloride (EPINEPHrine/NS) 250 ml @ 3.75 mls/hr TITRATE IV Last administered on 08/01/16 18:50; Admin Dose 3.75 MLS/HR; Start 08/01/16 at 19:30 Calcium Carbonate (Ca Carbonate) 1,250 mg Q8 NGT Last administered on 08/03/16 06:03; Admin Dose 1,250 MG; Start 08/01/16 at 22:00 Eye Lubricant (Artificial Tears Oph) 2 drop QID BOTH EYES Last administered on 08/03/16 08:20; Admin Dose 2 DROP; Start 08/02/16 at 09:00 Insulin Aspart (Novolog Insulin Pen) NOVOLOG *MODERATE* ALGORI... Q4 SC Last administered on 08/03/16 08:40; Admin Dose 4 UNIT; Start 08/02/16 at 09:00 Miscellaneous Information 1 ea NOTE XX ; Start 08/02/16 at 09:00 Glucose (Glutose) 15 gm Q15M PRN PO DECREASED GLUCOSE; Start 08/02/16 at 09:00 Glucose (Glutose) 22.5 gm Q15M PRN PO DECREASED GLUCOSE; Start 08/02/16 at 09:00 Dextrose (D50w Syringe) 25 ml Q15M PRN IV DECREASED GLUCOSE; Start 08/02/16 at 09:00 Dextrose (D50w Syringe) 50 ml Q15M PRN IV DECREASED GLUCOSE; Start 08/02/16 at 09:00 Glucagon (Glucagen) 1 mg Q15M PRN IM DECREASED GLUCOSE; Start 08/02/16 at 09:00 Glucose 15 gm 15 gm Q15M PRN BUCCAL DECREASED GLUCOSE; Start 08/02/16 at 09:00 Midazolam HCl 50 ml @ 1 mls/hr TITRATE IV Last administered on 08/03/16 04:30; Admin Dose 10 MLS/HR; Start 08/02/16 at 09:30 Fentanyl (Sublimaze) 100 ml @ 2.5 mls/hr TITRATE IV Last administered on 20:55; Admin Dose 7.5 MLS/HR; Start 08/02/16 at 09:30 Insulin Glargine 5 unit 5 unit DAILY@20 SC Last administered on 08/02/16 20:51 ; Admin Dose 5 UNIT; Start 08/02/16 at 20:00 Sodium Chloride 1,000 ml @ 50 mls/hr Q20H IV Last administered on 08/03/16 08: 08; Admin Dose 50 MLS/HR; Start 08/03/16 at 08:00 Magnesium Sulfate 50 ml @ 25 mls/hr ONCE ONCE IVPB Last administered on 08:08; Admin Dose 25 MLS/HR; Start 08/03/16 at 08:00; Stop 08/03/16 at 09:59 Potassium Chloride (KCl 40 MEQ/250 ML NS) 250 ml @ 62.5 mls/hr ONCE ONCE IVPB Last administered on 08/03/16 08:20; Admin Dose 62.5 MLS/HR; Start 08/03/16 at 08:00; Stop 08/03/16 at 11:59 Calcium Carbonate (Ca Carbonate) 1,250 mg Q6 NGT ; Start 08/03/16 at 12:00 Levothyroxine Sodium 100 mcg 100 mcg DAILY@06 NGT ; Start 08/04/16 at 06:00 Piperacillin Sod/ Tazobactam Sod (Zosyn 2.25gm/ 50ml (Pmx)) 50 ml @ 100 mls/hr Q6 IVPB Last administered on 08/03/16 09:06; Admin Dose 100 MLS/HR; Start at 08:30 Insulin Human NPH (Humulin N) 12 unit Q6 SC ; Start 08/03/16 at 12:00 KAREN GOMEZ MD Aug 03, 2016 09:21
[2016-08-03 09:38] LABS: EOSINOPHILS # 0.2 10^3/ul (0.0-0.5); LYMPHOCYTES # 0.2 10^3/ul (0.8-2.9); MONOCYTE # 0.5 10^3/ul (0.3-0.9); MYELOCYTES # 0.2; NEUTROPHIL # 8.2 10^3/ul (1.6-7.5)
--- NOTE | 2016-08-03 09:50 | CONS ---
Date/Time of Note Date/Time of Note DATE: 08/03/16 TIME: 09:47 Assessment/Plan Assessment/Plan Chief Complaint/Hosp Course PEA cardiac arrest: secondary to severe metabolic acidosis. No VT/VF or EKG changes to suggest primary cardiac etiology. Trops ok, EF preserved. Acute respiratory failure: intubated during code. ?ARDS as not much improvement after HD Severe metabolic acidosis: likely was the culprit for the arrest. HD started Shock: ?septic.Down to 2 pressors Acute renal failure: unclear etiology now on HD, making some urine Hypoglycemia Hypothyroidism Diarrhea/n/v/colitis -wean off pressors, goal SBP >100 or MAP >65 -vent management per pulm -HD per nephro Problems: Consultation Date/Type/Reason Admit Date/Time August 01, 2016 at 00:50 Initial Consult Date 08/01/16 Type of Consultation: Cardiology Referring Provider: NIKOLE KWON [facility] Interval Summary Free Text/Dictation Off epi and phenylephrine now. Still on 13 of PEEP and 100% FiO2. Exam/Review of Systems Vital Signs Vitals Vital Signs Date Time Temp Pulse Resp B/P Pulse Ox O2 Delivery O2 Flow Rate FiO2 08/03/16 08:00 88 08/03/16 06:15 30 132/88 93 08/03/16 05:23 100 08/03/16 04:00 98.0 08/02/16 20:00 Mechanical Ventilator 08/01/16 05:00 4.0 Intake and Output 08/02/16 08/02/16 08/03/16 15:00 23:00 07:00 Intake Total 2122.23 ml 1079.20 ml 1290.85 ml Output Total 2025 ml 55 ml 165 ml Balance 97.23 ml 1024.20 ml 1125.85 ml Exam Constitutional: No alert Head: atraumatic, normocephalic ENMT: intubated Neck: No jvd (difficult to examine ) Respiratory: diminished breath sounds, No clear to auscultation Cardiovascular: regular rate and rhythm, No edema, No systolic murmur Gastrointestinal: soft, No distended Neurological: No nl mental status, No nl speech Results Result Diagram: 08/03/16 0430 08/03/16 0430 Results 24 hrs Laboratory Tests Test 08/02/16 09:53 08/02/16 12:00 08/02/16 12:12 08/02/16 13:11 Bedside Glucose 333 H 293 H Stool Occult Blood POSITIVE Ionized Calcium (Measured) 0.9 L Test 08/02/16 17:06 08/02/16 20:45 08/03/16 00:40 08/03/16 04:30 Bedside Glucose 249 H 206 180 White Blood Count 17.4 #H Red Blood Count 2.56 L Hemoglobin 8.9 L Hematocrit 24.0 L Mean Corpuscular Volume 93.8 Mean Corpuscular Hemoglobin 34.8 H Mean Corpuscular Hemoglobin Concent 37.1 H Red Cell Distribution Width 14.3 Platelet Count 92 #L Mean Platelet Volume 11.3 H Neutrophils % 47.0 Band Neutrophils % 43.0 H Lymphocytes % 1.0 L Monocytes % 3.0 Eosinophils % 1.0 Metamyelocytes % 4.0 H Myelocytes % 1.0 H Neutrophils # 8.2 H Lymphocytes # 0.2 L Monocytes # 0.5 Eosinophils # 0.2 Metamyelocytes # 0.7 Myelocytes # 0.2 Large Platelets FEW Sodium Level 135 Potassium Level 3.2 L Chloride Level 91 L Carbon Dioxide Level 22 Anion Gap 25 H Blood Urea Nitrogen 32 H Creatinine 2.72 H Glucose Level 197 # Lactic Acid Level 11.5 *H Calcium Level 6.8 L Phosphorus Level 1.3 L Magnesium Level 1.3 L Total Bilirubin 2.6 #H Direct Bilirubin 2.10 #H Indirect Bilirubin 0.5 Aspartate Amino Transf (AST/SGOT) 168 H Alanine Aminotransferase (ALT/SGPT) 65 Alkaline Phosphatase 87 Total Protein 6.8 Albumin 3.6 Globulin 3.20 Albumin/Globulin Ratio 1.12 Random Vancomycin Level 13.3 Test 08/03/16 05:53 08/03/16 07:00 08/03/16 08:24 Bedside Glucose 183 181 Blood Gas Specimen Source Blood arterial Arterial Blood Date Drawn 08/03/2016 7:30:43 AM Arterial Blood pH (Temp corrected) 7.546 H Arterial Blood pCO2 (Temp correct) 24.7 L Arterial Blood pO2 (Temp corrected) 65.2 L Arterial Blood HCO3 20.9 L Arterial Blood Base Excess -0.6 Arterial Blood Oxygen Saturation 92.8 L Stanley Test N/A Arterial Blood Gas Puncture Site Right Brachial Arterial Blood Carboxyhemoglobin 0.2 Arterial Blood Methemoglobin 0.5 Blood Gas A-a O2 Differential 623.1 H Oxyhemoglobin Percent 92.2 L Total Hemoglobin 9.8 L Blood Gas Temperature 37.0 Blood Gas Respiration Rate 30.0 Blood Gas Actual Respiration Rate 30 Blood Gas Modality VENT - AC FiO2 100.0 Blood Gas Tidal Volume 750.0 Blood Gas Low PEEP Setting 13.0 Blood Gas Notified Whom [place] Blood Gas Notified Time 08/03/2016 7:50:12 AM Medications Medications Current Medications Lorazepam (Ativan) 0.5 mg Q6H PRN IV ANXIETY; Start 08/01/16 at 03:00 Ondansetron HCl (Zofran Inj) 4 mg Q6H PRN IV NAUSEA AND/OR VOMITING; Start at 03:00 Metoclopramide HCl (Reglan) 10 mg Q6H PRN IV NAUSEA AND/OR VOMITING; Start at 03:00 Acetaminophen (Tylenol Tab) 650 mg Q6H PRN PO PAIN LEVEL 1-3 OR FEVER; Start at 03:00 Heparin Sodium (Porcine) (Heparin (5000 Units/0.5 ml)) 5,000 unit Q8 SC Last administered on 08/03/16 05:45; Admin Dose 5,000 UNIT; Start 08/01/16 at 06:00 Acetaminophen (Tylenol Supp) 650 mg Q4H PRN [place] PAIN LEVEL 1-3 OR FEVER; Start 08/01/16 at 06:30 Pantoprazole 40 mg 40 mg BID@06,18 IV Last administered on 08/03/16 05:41; Admin Dose 40 MG; Start 08/01/16 at 06:00 Propofol 100 ml @ 3.33 mls/hr Q12H IV Last administered on 08/02/16 09:30; Admin Dose 26.64 MLS/HR; Start 08/01/16 at 09:30 Phenylephrine HCl 40 mg/Dextrose 500 ml @ 0 mls/hr TITRATE IV Last administered on 08/02/16 04:58; Admin Dose 112.5 MLS/HR; Start 08/01/16 at 16:00 Norepinephrine 16 mg/Dextrose 500 ml @ 0 mls/hr TITRATE IV Last administered on 08/03/16 08:39; Admin Dose 26.25 MLS/HR; Start 08/01/16 at 16:00 Cefepime HCl (Maxipime 1gm/50 ml (Pmx)) 50 ml @ 100 mls/hr Q24H IVPB Last administered on 08/02/16 15:29; Admin Dose 100 MLS/HR; Start 08/01/16 at 16:00 Methylprednisolone Sodium Succinate 60 mg 60 mg Q6 IV Last administered on 05:41; Admin Dose 60 MG; Start 08/01/16 at 18:00 Vasopressin 60 unit/Dextrose 60 ml @ 1.2 mls/hr Q12H IV Last administered on 03:55; Admin Dose 2.4 MLS/HR; Start 08/01/16 at 17:30 Epinephrine/ Sodium Chloride (EPINEPHrine/NS) 250 ml @ 3.75 mls/hr TITRATE IV Last administered on 08/01/16 18:50; Admin Dose 3.75 MLS/HR; Start 08/01/16 at 19:30 Calcium Carbonate (Ca Carbonate) 1,250 mg Q8 NGT Last administered on 08/03/16 06:03; Admin Dose 1,250 MG; Start 08/01/16 at 22:00 Eye Lubricant (Artificial Tears Oph) 2 drop QID BOTH EYES Last administered on 08/03/16 08:20; Admin Dose 2 DROP; Start 08/02/16 at 09:00 Insulin Aspart (Novolog Insulin Pen) NOVOLOG *MODERATE* ALGORI... Q4 SC Last administered on 08/03/16 08:40; Admin Dose 4 UNIT; Start 08/02/16 at 09:00 Miscellaneous Information 1 ea NOTE XX ; Start 08/02/16 at 09:00 Glucose (Glutose) 15 gm Q15M PRN PO DECREASED GLUCOSE; Start 08/02/16 at 09:00 Glucose (Glutose) 22.5 gm Q15M PRN PO DECREASED GLUCOSE; Start 08/02/16 at 09:00 Dextrose (D50w Syringe) 25 ml Q15M PRN IV DECREASED GLUCOSE; Start 08/02/16 at 09:00 Dextrose (D50w Syringe) 50 ml Q15M PRN IV DECREASED GLUCOSE; Start 08/02/16 at 09:00 Glucagon (Glucagen) 1 mg Q15M PRN IM DECREASED GLUCOSE; Start 08/02/16 at 09:00 Glucose 15 gm 15 gm Q15M PRN BUCCAL DECREASED GLUCOSE; Start 08/02/16 at 09:00 Midazolam HCl 50 ml @ 1 mls/hr TITRATE IV Last administered on 08/03/16 04:30; Admin Dose 10 MLS/HR; Start 08/02/16 at 09:30 Fentanyl (Sublimaze) 100 ml @ 2.5 mls/hr TITRATE IV Last administered on 20:55; Admin Dose 7.5 MLS/HR; Start 08/02/16 at 09:30 Insulin Glargine 5 unit 5 unit DAILY@20 SC Last administered on 08/02/16 20:51 ; Admin Dose 5 UNIT; Start 08/02/16 at 20:00 Sodium Chloride 1,000 ml @ 50 mls/hr Q20H IV Last administered on 08/03/16 08: 08; Admin Dose 50 MLS/HR; Start 08/03/16 at 08:00 Magnesium Sulfate 50 ml @ 25 mls/hr ONCE ONCE IVPB Last administered on 08:08; Admin Dose 25 MLS/HR; Start 08/03/16 at 08:00; Stop 08/03/16 at 09:59 Potassium Chloride (KCl 40 MEQ/250 ML NS) 250 ml @ 62.5 mls/hr ONCE ONCE IVPB Last administered on 08/03/16 08:20; Admin Dose 62.5 MLS/HR; Start 08/03/16 at 08:00; Stop 08/03/16 at 11:59 Calcium Carbonate (Ca Carbonate) 1,250 mg Q6 NGT ; Start 08/03/16 at 12:00 Levothyroxine Sodium 100 mcg 100 mcg DAILY@06 NGT ; Start 08/04/16 at 06:00 Piperacillin Sod/ Tazobactam Sod (Zosyn 2.25gm/ 50ml (Pmx)) 50 ml @ 100 mls/hr Q6 IVPB Last administered on 08/03/16 09:06; Admin Dose 100 MLS/HR; Start at 08:30 Insulin Human NPH 12 unit 12 unit Q6 SC ; Start 08/03/16 at 12:00 Metronidazole (Flagyl 500 Mg (Pmx)) 100 ml @ 100 mls/hr Q8 IVPB ; Start at 10:00 SEPIDEH HAN Aug 03, 2016 09:50
[2016-08-03] MEDS: FENTAnyl (DRIP) 1000 mcg/100mL 100 ML IV SCH ×2 (10:14→21:06)
--- NOTE | 2016-08-03 10:19 | RADRPT ---
PROCEDURE: XR Chest 1 view. CLINICAL INDICATION: Shortness of breath TECHNIQUE: AP views of the chest was obtained. COMPARISON: Yesterday FINDINGS: The heart is large. Calcified atherosclerosis is noted in the aorta. Endotracheal and nasogastric t ubes are stable and appear in grossly appropriate location. Patchy infiltrates throughout both lung s are unchanged. Elevation of the right hemidiaphragm is noted. The osseous structures are unchang ed. IMPRESSION: Cardiomegaly with calcified atherosclerosis in the aorta. Stable patchy infiltrates throughout both lungs. Stable elevation of the right hemidiaphragm. RPTAT: AA .Pedro Ramirez MD, Date Time Electronically viewed and signed by .Pedro Ramirez MD, MD on 08/03/2016 10:18 .P/
[2016-08-03] MEDS: metroNIDAZOLE 500 MG/NS (PMX) 100 ML IVPB SCH ×3 (10:29→22:45)
--- NOTE | 2016-08-03 11:26 | CONS ---
Date/Time of Note Date/Time of Note DATE: 08/03/16 TIME: 11:21 Consult Date/Type/Reason Admit Date/Time August 01, 2016 at 00:50 Initial Consult Date 08/01/16 Type of Consultation: Pulmonary ICU Ordering Provider: NIKOLE KWON MD, [facility] Subjective Patient continues with mechanical ventilation Decrease vasopressor requirements Still requiring several vasopressors Continues hemodialysis Objective Vital Signs Date Time Temp Pulse Resp B/P Pulse Ox O2 Delivery O2 Flow Rate FiO2 08/03/16 10:45 88 30 95/71 93 08/03/16 10:00 Mechanical Ventilator 08/03/16 08:00 98.3 08/03/16 05:23 100 08/01/16 05:00 4.0 Intake and Output 08/02/16 08/02/16 08/03/16 15:00 23:00 07:00 Intake Total 2122.23 ml 1079.20 ml 1290.85 ml Output Total 2025 ml 55 ml 195 ml Balance 97.23 ml 1024.20 ml 1095.85 ml Exam PHYSICAL EXAMINATION: GENERAL: Moderately obese gentleman, intubated on mechanical ventilation, VITAL SIGNS: NECK: Supple. No JVD or lymphadenopathy. CARDIAC: S1, S2, no added sounds or murmurs. CHEST: Diminished air entry bilaterally. ABDOMEN: Soft, nontender. No guarding, no rebound. EXTREMITIES: No cyanosis, clubbing. Edema +1. NEUROLOGIC: Generalized weakness. Results/Medications Result Diagram: 08/03/16 0430 08/03/16 0430 Results 24 hrs Laboratory Tests Test 08/02/16 12:00 08/02/16 12:12 08/02/16 13:11 08/02/16 17:06 Stool Occult Blood POSITIVE Ionized Calcium (Measured) 0.9 L Bedside Glucose 293 H 249 H Test 08/02/16 20:45 08/03/16 00:40 08/03/16 04:30 08/03/16 05:53 Bedside Glucose 206 180 183 White Blood Count 17.4 #H Red Blood Count 2.56 L Hemoglobin 8.9 L Hematocrit 24.0 L Mean Corpuscular Volume 93.8 Mean Corpuscular Hemoglobin 34.8 H Mean Corpuscular Hemoglobin Concent 37.1 H Red Cell Distribution Width 14.3 Platelet Count 92 #L Mean Platelet Volume 11.3 H Neutrophils % 47.0 Band Neutrophils % 43.0 H Lymphocytes % 1.0 L Monocytes % 3.0 Eosinophils % 1.0 Metamyelocytes % 4.0 H Myelocytes % 1.0 H Neutrophils # 8.2 H Lymphocytes # 0.2 L Monocytes # 0.5 Eosinophils # 0.2 Metamyelocytes # 0.7 Myelocytes # 0.2 Large Platelets FEW Sodium Level 135 Potassium Level 3.2 L Chloride Level 91 L Carbon Dioxide Level 22 Anion Gap 25 H Blood Urea Nitrogen 32 H Creatinine 2.72 H Glucose Level 197 # Lactic Acid Level 11.5 *H Calcium Level 6.8 L Phosphorus Level 1.3 L Magnesium Level 1.3 L Total Bilirubin 2.6 #H Direct Bilirubin 2.10 #H Indirect Bilirubin 0.5 Aspartate Amino Transf (AST/SGOT) 168 H Alanine Aminotransferase (ALT/SGPT) 65 Alkaline Phosphatase 87 Total Protein 6.8 Albumin 3.6 Globulin 3.20 Albumin/Globulin Ratio 1.12 Random Vancomycin Level 13.3 Test 08/03/16 07:00 08/03/16 08:24 Blood Gas Specimen Source Blood arterial Arterial Blood Date Drawn 08/03/2016 7:30:43 AM Arterial Blood pH (Temp corrected) 7.546 H Arterial Blood pCO2 (Temp correct) 24.7 L Arterial Blood pO2 (Temp corrected) 65.2 L Arterial Blood HCO3 20.9 L Arterial Blood Base Excess -0.6 Arterial Blood Oxygen Saturation 92.8 L Stanley Test N/A Arterial Blood Gas Puncture Site Right Brachial Arterial Blood Carboxyhemoglobin 0.2 Arterial Blood Methemoglobin 0.5 Blood Gas A-a O2 Differential 623.1 H Oxyhemoglobin Percent 92.2 L Total Hemoglobin 9.8 L Blood Gas Temperature 37.0 Blood Gas Respiration Rate 30.0 Blood Gas Actual Respiration Rate 30 Blood Gas Modality VENT - AC FiO2 100.0 Blood Gas Tidal Volume 750.0 Blood Gas Low PEEP Setting 13.0 Blood Gas Notified Whom [place] Blood Gas Notified Time 08/03/2016 7:50:12 AM Bedside Glucose 181 Medications Current Medications Lorazepam (Ativan) 0.5 mg Q6H PRN IV ANXIETY; Start 08/01/16 at 03:00 Ondansetron HCl (Zofran Inj) 4 mg Q6H PRN IV NAUSEA AND/OR VOMITING; Start at 03:00 Metoclopramide HCl (Reglan) 10 mg Q6H PRN IV NAUSEA AND/OR VOMITING; Start at 03:00 Acetaminophen (Tylenol Tab) 650 mg Q6H PRN PO PAIN LEVEL 1-3 OR FEVER; Start at 03:00 Heparin Sodium (Porcine) (Heparin (5000 Units/0.5 ml)) 5,000 unit Q8 SC Last administered on 08/03/16 05:45; Admin Dose 5,000 UNIT; Start 08/01/16 at 06:00 Acetaminophen (Tylenol Supp) 650 mg Q4H PRN [place] PAIN LEVEL 1-3 OR FEVER; Start 08/01/16 at 06:30 Pantoprazole 40 mg 40 mg BID@06,18 IV Last administered on 08/03/16 05:41; Admin Dose 40 MG; Start 08/01/16 at 06:00 Propofol 100 ml @ 3.33 mls/hr Q12H IV Last administered on 08/02/16 09:30; Admin Dose 26.64 MLS/HR; Start 08/01/16 at 09:30 Phenylephrine HCl 40 mg/Dextrose 500 ml @ 0 mls/hr TITRATE IV Last administered on 08/02/16 04:58; Admin Dose 112.5 MLS/HR; Start 08/01/16 at 16:00 Norepinephrine/ Dextrose (Levophed/D5W) 500 ml @ 0 mls/hr TITRATE IV Last administered on 08/03/16 08:39; Admin Dose 26.25 MLS/HR; Start 08/01/16 at 16:00 Methylprednisolone Sodium Succinate 60 mg 60 mg Q6 IV Last administered on 05:41; Admin Dose 60 MG; Start 08/01/16 at 18:00 Vasopressin 60 unit/Dextrose 60 ml @ 1.2 mls/hr Q12H IV Last administered on 03:55; Admin Dose 2.4 MLS/HR; Start 08/01/16 at 17:30 Epinephrine/ Sodium Chloride (EPINEPHrine/NS) 250 ml @ 3.75 mls/hr TITRATE IV Last administered on 08/01/16 18:50; Admin Dose 3.75 MLS/HR; Start 08/01/16 at 19:30 Calcium Carbonate (Ca Carbonate) 1,250 mg Q8 NGT Last administered on 08/03/16 06:03; Admin Dose 1,250 MG; Start 08/01/16 at 22:00 Eye Lubricant (Artificial Tears Oph) 2 drop QID BOTH EYES Last administered on 08/03/16 08:20; Admin Dose 2 DROP; Start 08/02/16 at 09:00 Insulin Aspart (Novolog Insulin Pen) NOVOLOG *MODERATE* ALGORI... Q4 SC Last administered on 08/03/16 08:40; Admin Dose 4 UNIT; Start 08/02/16 at 09:00 Miscellaneous Information 1 ea NOTE XX ; Start 08/02/16 at 09:00 Glucose (Glutose) 15 gm Q15M PRN PO DECREASED GLUCOSE; Start 08/02/16 at 09:00 Glucose (Glutose) 22.5 gm Q15M PRN PO DECREASED GLUCOSE; Start 08/02/16 at 09:00 Dextrose (D50w Syringe) 25 ml Q15M PRN IV DECREASED GLUCOSE; Start 08/02/16 at 09:00 Dextrose (D50w Syringe) 50 ml Q15M PRN IV DECREASED GLUCOSE; Start 08/02/16 at 09:00 Glucagon (Glucagen) 1 mg Q15M PRN IM DECREASED GLUCOSE; Start 08/02/16 at 09:00 Glucose 15 gm 15 gm Q15M PRN BUCCAL DECREASED GLUCOSE; Start 08/02/16 at 09:00 Midazolam HCl 50 ml @ 1 mls/hr TITRATE IV Last administered on 08/03/16 04:30; Admin Dose 10 MLS/HR; Start 08/02/16 at 09:30 Fentanyl (Sublimaze) 100 ml @ 2.5 mls/hr TITRATE IV Last administered on 10:14; Admin Dose 7.5 MLS/HR; Start 08/02/16 at 09:30 Insulin Glargine 5 unit 5 unit DAILY@20 SC Last administered on 08/02/16 20:51 ; Admin Dose 5 UNIT; Start 08/02/16 at 20:00 Sodium Chloride 1,000 ml @ 50 mls/hr Q20H IV Last administered on 08/03/16 08: 08; Admin Dose 50 MLS/HR; Start 08/03/16 at 08:00 Potassium Chloride (KCl 40 MEQ/250 ML NS) 250 ml @ 62.5 mls/hr ONCE ONCE IVPB Last administered on 08/03/16 08:20; Admin Dose 62.5 MLS/HR; Start 08/03/16 at 08:00; Stop 08/03/16 at 11:59 Calcium Carbonate (Ca Carbonate) 1,250 mg Q6 NGT ; Start 08/03/16 at 12:00 Levothyroxine Sodium 100 mcg 100 mcg DAILY@06 NGT ; Start 08/04/16 at 06:00 Piperacillin Sod/ Tazobactam Sod (Zosyn 2.25gm/ 50ml (Pmx)) 50 ml @ 100 mls/hr Q6 IVPB Last administered on 08/03/16 09:06; Admin Dose 100 MLS/HR; Start at 08:30 Insulin Human NPH 12 unit 12 unit Q6 SC ; Start 08/03/16 at 12:00 Metronidazole 100 ml @ 100 mls/hr Q8 IVPB Last administered on 08/03/16 10:29 ; Admin Dose 100 MLS/HR; Start 08/03/16 at 10:00 Vancomycin HCl/ Sodium Chloride (Vancocin/NS) 250 ml @ 83.333 mls/ hr ONCE IVPB ; Start 08/03/16 at 11:30; Stop 08/03/16 at 16:00 Assessment/Plan Chief Complaint/Hosp Course IMPRESSION 1. Acute renal failure with severe metabolic acidosis, etiology of which remains unclear, possible acute tubular necrosis injury versus prerenal. 2. Respiratory failure secondary to significant metabolic acidosis and subsequent cardiac arrest. Probable ARDS with a component of pulmonary edema 3. Severe hypothyroidism 4. History of ETOH. 5. Septic shock with severe lactic acidosis which is climbing despite improved hypotension PLAN: 1. Severe metabolic acidosis corrected with hemodialysis and bicarbonate 2. Renal consult. Continue hemodialysis as tolerated 3. Endocrinology consult. Appreciated 4. Continue vasopressors decreased as tolerated 5. DVT and GI prophylaxis. 6. Continue antibiotics 7. Continue steroids 8. Replace electrolytes Overall prognosis remains guarded Problems: NIKOLE KWON MD, [facility] Aug 03, 2016 11:26
[2016-08-03] MEDS ORDERED: VANCOMYCIN 1.5 GM in SOD CHLORIDE 0.9% 250 ML IVPB SCH (11:30)
[2016-08-03] MEDS ORDERED: PIPER-TAZO 3.375 GM IV (PMX) 100 ML IVPB SCH (14:00)
[2016-08-03] MEDS: PIPER-TAZO 3.375 GM IV (PMX) 100 ML IVPB SCH ×2 (15:01→22:45)
[2016-08-03] MEDS: INSULIN GLARGINE [LANtus] 3 ML PEN SC SCH (20:00)
[2016-08-03] MEDS: PROPOFOL 100 ML IV SCH (20:35)
[2016-08-03] MEDS: LORAZEPAM 2 MG INJ IV PRN (21:06)
[2016-08-04] VITALS (101 sets, daily range): BP systolic 72–151; BP diastolic 57–98; PULSE 82–96; RESP 23–35
[2016-08-04] MEDS: INSULIN ASPART [NOVOLOG] 3 ML PEN SC SCH ×6 (00:16→20:58)
[2016-08-04] MEDS: METHYLPREDNISOLONE 125 MG INJ IV SCH ×5 (00:28→23:48)
[2016-08-04 05:05] LABS: ADD SCAN DIFF NO
[2016-08-04] MEDS: SOD CHLORIDE 0.9% 1,000 ML IV SCH (05:06)
[2016-08-04] MEDS: PIPER-TAZO 3.375 GM IV (PMX) 100 ML IVPB SCH ×3 (05:06→23:48)
[2016-08-04] MEDS: CA CARBONATE (250 MG/ML) 5ML CUP NGT SCH ×5 (05:07→23:49)
[2016-08-04] MEDS: PANTOPRAZOLE 40 MG INJ IV SCH ×2 (05:07→18:22)
[2016-08-04] MEDS: metroNIDAZOLE 500 MG/NS (PMX) 100 ML IVPB SCH ×3 (05:07→23:48)
[2016-08-04] MEDS: HEPARIN 5,000 UNIT/0.5 ML VIAL SC SCH (05:12)
[2016-08-04 05:17] LABS: ABNORMAL IP MESSAGE 1; HEMATOCRIT 22.9 % (42.0-52.0); HEMOGLOBIN 8.4 g/dl (14.0-18.0); MEAN CORPUSCULAR HEMOGLOBIN 33.9 pg (29.0-33.0); MEAN CORPUSCULAR HGB CONC 36.7 g/dl (32.0-37.0); MEAN CORPUSCULAR VOLUME 92.3 fl (82.0-101.0); MEAN PLATELET VOLUME 11.6 fl (7.4-10.4); PLATELET COUNT 72 10^3/UL (140-415); RED BLOOD COUNT 2.48 10^6/ul (4.70-6.10); RED CELL DISTRIBUTION WIDTH 14.6 % (11.5-14.5)
[2016-08-04] MEDS: NPH, HUMAN INSULIN ISOPHANE 3ML VIAL SC SCH ×5 (05:18→23:54)
[2016-08-04] MEDS: VASOPRESSIN 60 UNIT in DEXTROSE 5% 57 ML IV SCH ×2 (05:18→17:30)
[2016-08-04 05:33] LABS: CALCIUM 7.4 mg/dl (8.4-10.2); CREATININE 2.65 mg/dl (0.61-1.24); PHOSPHORUS 2.2 mg/dl (2.5-4.9)
[2016-08-04 05:34] LABS: ALBUMIN 3.6 g/dl (3.3-4.9); BILIRUBIN,DIRECT 2.2 mg/dl (0.00-0.20); BILIRUBIN,INDIRECT 0.8 mg/dl (0-1.1); TOTAL PROTEIN 6.9 g/dl (6.1-8.1)
[2016-08-04] MEDS: LEVOTHYROXINE 100 MCG TAB NGT SCH (06:39)
[2016-08-04] MEDS: FENTAnyl (DRIP) 1000 mcg/100mL 100 ML IV SCH ×2 (06:40→18:00)
[2016-08-04 07:53] LABS: AADO2 Arterial 522.5 mmHg (7.0-24.0); Allen Test ACCEPTAB; Arterial Base Excess -5.1 mmol/L (-3.0-3); Arterial COHb 0.3 % (0.0-3.0); Arterial Fraction of Oxyhgb 98.4 % (93.0-99.0); Arterial HCO3 17.4 mmol/L (22.0-26.0); Arterial MetHb 0.3 % (0.0-1.5); Arterial Total Hemglobin 8.9 g/dl (12.0-18.0); MODE VENT-AC
[2016-08-04] MEDS: ARTIFICIAL TEARS 15 ML OPH BOTH EYES SCH ×4 (08:51→20:55)
[2016-08-04] MEDS: PROPOFOL 100 ML IV SCH ×2 (08:54→21:30)
--- NOTE | 2016-08-04 09:10 | CONS ---
Date/Time of Note Date/Time of Note DATE: 08/04/16 TIME: 09:04 Consult Date/Type/Reason Admit Date/Time August 01, 2016 at 00:50 Initial Consult Date 08/01/16 Type of Consultation: neph Ordering Provider: NIKOLE KWON MD, [facility] Subjective The patient remains critically ill. Remains on pressor support, although being weaned down. The patient is on hd today. The patient remains obtunded. No other acute events noted. No hemoptysis, hematemesis or hematochezia. poc reviewed with dr. aponte. OBJECTIVE: HEENT: Head is normocephalic. Pupils are reactive. NECK: Supple. HEART: Regular rate, tachycardic. LUNGS: Showed diminished breath sounds at the base. Positive rhonchi and crackles. ABDOMEN: Obese, soft, nontender to palpation. No rebound or guarding. EXTREMITIES: Negative for clubbing or cyanosis. Positive edema. DERMATOLOGIC: No rashes. MUSCULOSKELETAL: Have no joint effusion. NEUROLOGIC: No change in exam. MEDICATIONS: The patient's medications have been reviewed. Objective Vital Signs Date Time Temp Pulse Resp B/P Pulse Ox O2 Delivery O2 Flow Rate FiO2 08/04/16 08:08 85 08/04/16 07:00 30 119/88 97 08/04/16 05:15 100 08/04/16 04:00 98.1 08/04/16 01:15 Mechanical Ventilator 08/01/16 05:00 4.0 Intake and Output 08/03/16 08/03/16 08/04/16 15:00 23:00 07:00 Intake Total 1916.30 ml 1465.000 ml 1025.00 ml Output Total 2740 ml 125 ml 75 ml Balance -823.70 ml 1340.000 ml 950.00 ml Results/Medications Result Diagram: 08/04/16 0420 08/04/16 0420 Results 24 hrs Laboratory Tests Test 08/03/16 12:14 08/03/16 17:25 08/03/16 20:26 08/04/16 00:06 Bedside Glucose 161 107 79 99 Test 08/04/16 04:20 08/04/16 04:27 08/04/16 04:40 08/04/16 07:00 White Blood Count 18.0 H Red Blood Count 2.48 L Hemoglobin 8.4 L Hematocrit 22.9 L Mean Corpuscular Volume 92.3 Mean Corpuscular Hemoglobin 33.9 H Mean Corpuscular Hemoglobin Concent 36.7 Red Cell Distribution Width 14.6 H Platelet Count 72 #L Mean Platelet Volume 11.6 H Neutrophils % Eosinophils % Neutrophils # Eosinophils # Sodium Level 140 Potassium Level 4.0 Chloride Level 98 Carbon Dioxide Level 19 L Anion Gap 27 H Blood Urea Nitrogen 30 H Creatinine 2.65 H Glucose Level 100 # Lactic Acid Level 11.1 *H Calcium Level 7.4 L Phosphorus Level 2.2 L Total Bilirubin 3.0 H Direct Bilirubin 2.20 H Indirect Bilirubin 0.8 Aspartate Amino Transf (AST/SGOT) 116 H Alanine Aminotransferase (ALT/SGPT) 64 Alkaline Phosphatase 113 Total Protein 6.9 Albumin 3.6 Bedside Glucose 104 Magnesium Level 1.7 Blood Gas Specimen Source Blood arterial Arterial Blood Date Drawn 08/04/2016 7:40:17 AM Arterial Blood pH (Temp corrected) 7.477 H Arterial Blood pCO2 (Temp correct) 24.0 L Arterial Blood pO2 (Temp corrected) 166.5 H Arterial Blood HCO3 17.4 L Arterial Blood Base Excess -5.1 L Arterial Blood Oxygen Saturation 99.0 H Stanley Test ACCEPTAB Arterial Blood Gas Puncture Site Left Radial Arterial Blood Carboxyhemoglobin 0.3 Arterial Blood Methemoglobin 0.3 Blood Gas A-a O2 Differential 522.5 H Oxyhemoglobin Percent 98.4 Total Hemoglobin 8.9 L Blood Gas Temperature 37.0 Blood Gas Respiration Rate 30.0 Blood Gas Actual Respiration Rate 30 Blood Gas Modality VENT-AC FiO2 100.0 Blood Gas Tidal Volume 750.0 Blood Gas Low PEEP Setting 10.0 Blood Gas Inspiratory Pressure 39.0 Blood Gas Notified Whom D Blood Gas Notified Time 08/04/2016 7:53:02 AM Medications Current Medications Lorazepam (Ativan) 0.5 mg Q6H PRN IV ANXIETY Last administered on 08/03/16 21: 06; Admin Dose 0.5 MG; Start 08/01/16 at 03:00 Ondansetron HCl (Zofran Inj) 4 mg Q6H PRN IV NAUSEA AND/OR VOMITING; Start at 03:00 Metoclopramide HCl (Reglan) 10 mg Q6H PRN IV NAUSEA AND/OR VOMITING; Start at 03:00 Acetaminophen (Tylenol Tab) 650 mg Q6H PRN PO PAIN LEVEL 1-3 OR FEVER; Start at 03:00 Heparin Sodium (Porcine) (Heparin (5000 Units/0.5 ml)) 5,000 unit Q8 SC Last administered on 08/04/16 05:12; Admin Dose 5,000 UNIT; Start 08/01/16 at 06:00 Acetaminophen (Tylenol Supp) 650 mg Q4H PRN [place] PAIN LEVEL 1-3 OR FEVER; Start 08/01/16 at 06:30 Pantoprazole 40 mg 40 mg BID@06,18 IV Last administered on 08/04/16 05:07; Admin Dose 40 MG; Start 08/01/16 at 06:00 Propofol 100 ml @ 3.33 mls/hr Q12H IV Last administered on 08/02/16 09:30; Admin Dose 26.64 MLS/HR; Start 08/01/16 at 09:30 Phenylephrine HCl 40 mg/Dextrose 500 ml @ 0 mls/hr TITRATE IV Last administered on 08/02/16 04:58; Admin Dose 112.5 MLS/HR; Start 08/01/16 at 16:00 Norepinephrine/ Dextrose (Levophed/D5W) 500 ml @ 0 mls/hr TITRATE IV Last administered on 08/04/16 04:32; Admin Dose 0 MLS/HR; Start 08/01/16 at 16:00 Methylprednisolone Sodium Succinate 60 mg 60 mg Q6 IV Last administered on 05:07; Admin Dose 60 MG; Start 08/01/16 at 18:00 Vasopressin 60 unit/Dextrose 60 ml @ 1.2 mls/hr Q12H IV Last administered on 03:55; Admin Dose 2.4 MLS/HR; Start 08/01/16 at 17:30 Epinephrine/ Sodium Chloride (EPINEPHrine/NS) 250 ml @ 3.75 mls/hr TITRATE IV Last administered on 08/01/16 18:50; Admin Dose 3.75 MLS/HR; Start 08/01/16 at 19:30 Eye Lubricant (Artificial Tears Oph) 2 drop QID BOTH EYES Last administered on 08/04/16 08:51; Admin Dose 2 DROP; Start 08/02/16 at 09:00 Insulin Aspart (Novolog Insulin Pen) NOVOLOG *MODERATE* ALGORI... Q4 SC Last administered on 08/03/16 12:32; Admin Dose 2 UNIT; Start 08/02/16 at 09:00 Miscellaneous Information 1 ea NOTE XX ; Start 08/02/16 at 09:00 Glucose (Glutose) 15 gm Q15M PRN PO DECREASED GLUCOSE; Start 08/02/16 at 09:00 Glucose (Glutose) 22.5 gm Q15M PRN PO DECREASED GLUCOSE; Start 08/02/16 at 09:00 Dextrose (D50w Syringe) 25 ml Q15M PRN IV DECREASED GLUCOSE; Start 08/02/16 at 09:00 Dextrose (D50w Syringe) 50 ml Q15M PRN IV DECREASED GLUCOSE; Start 08/02/16 at 09:00 Glucagon (Glucagen) 1 mg Q15M PRN IM DECREASED GLUCOSE; Start 08/02/16 at 09:00 Glucose 15 gm 15 gm Q15M PRN BUCCAL DECREASED GLUCOSE; Start 08/02/16 at 09:00 Midazolam HCl 50 ml @ 1 mls/hr TITRATE IV Last administered on 08/03/16 04:30; Admin Dose 10 MLS/HR; Start 08/02/16 at 09:30 Fentanyl (Sublimaze) 100 ml @ 2.5 mls/hr TITRATE IV Last administered on 06:40; Admin Dose 10 MLS/HR; Start 08/02/16 at 09:30 Insulin Glargine 5 unit 5 unit DAILY@20 SC Last administered on 08/02/16 20:51 ; Admin Dose 5 UNIT; Start 08/02/16 at 20:00 Sodium Chloride (NS) 1,000 ml @ 50 mls/hr Q20H IV Last administered on 05:06; Admin Dose 50 MLS/HR; Start 08/03/16 at 08:00 Calcium Carbonate (Ca Carbonate) 1,250 mg Q6 NGT Last administered on 08/04/16 05:07; Admin Dose 1,250 MG; Start 08/03/16 at 12:00 Levothyroxine Sodium (Synthroid) 100 mcg DAILY@06 NGT Last administered on 06:39; Admin Dose 100 MCG; Start 08/04/16 at 06:00 Insulin Human NPH 12 unit 12 unit Q6 SC Last administered on 08/03/16 17:50; Admin Dose 12 UNIT; Start 08/03/16 at 12:00 Metronidazole 100 ml @ 100 mls/hr Q8 IVPB Last administered on 08/04/16 05:07 ; Admin Dose 100 MLS/HR; Start 08/03/16 at 10:00 Piperacillin Sod/ Tazobactam Sod (Zosyn 3.375gm/ 100 ml (Pmx)) 100 ml @ 200 mls /hr Q8 IVPB Last administered on 08/04/16 05:06; Admin Dose 200 MLS/HR; Start 08/03/16 at 14:00 Assessment/Plan Chief Complaint/Hosp Course 1. Nonoliguric acute kidney injury, with an unknown baseline creatinine. Etiology is secondary to acute tubular necrosis due to septic shock. The patient was initiated on urgent hemodialysis due to severe metabolic acidemia and solute clearance. The patient had hemodialysis yesterday and tolerated it well, with 1.5 liters removed. Anticipate daily dialysis for volume removal and solute clearance, as the patient tolerates. Will dialyze today for 3 hours on a 4K bath, calcium 3.0, and monitor closely. assess daily for hd needs. avoid nephrotoxins as hope for renal recovery. all meds dosed ok. 2. Mixed acid base disorder. The patient has anion gap metabolic acidosis and metabolic alkalosis. The patient's last ABG shows a pH of 7.40 with a pCO2 of 24. Lactic acid remains elevated at 11.5. Plan at this point is to discontinue bicarbonate drip. Will continue to monitor serial ABGs. 3. Ventilator-dependent respiratory failure. Vent settings have been reviewed. ABG has been reviewed. Continue to monitor. Follow up vent settings. Continue to titrate down FIO2 if possible. 4. Volume overload secondary to acute congestive heart failure, diastolic and systolic heart failure. Plan is to minimize IV fluids if possible. Will continue ultrafiltration with dialysis as tolerated. Will follow up with cardiology, followup a 2D echo. 5. Shock. Etiology is felt to be multifactorial, cardiac and possible septic. The patient is currently being weaned off pressor support. Remains on broad- spectrum antibiotics. Would continue the current treatment plan, titrate off pressors if possible. Will decrease the rate of IV fluids as the patient is markedly volume overloaded. 6. Status post cardiopulmonary arrest. Etiology may be metabolic, possibly due to severe acidemia. The patient is status post return of spontaneous circulation. Continue to monitor. Follow up with ongoing cardiology workup. 7. Acute encephalopathy. Etiology is toxic metabolic. Continue to monitor. 8. Hypothyroidism. Continue Synthroid. 9. Anemia. Continue to monitor hemoglobin and hematocrit levels. 10. Mineral bone disorder. The patient remains hypophosphatemic and hypocalcemic, in part due to ongoing sepsis. Plan is to continue to replete with potassium phosphate, will continue high calcium bath with dialysis. 11. Hypomagnesemia. Repleted with magnesium sulfate. 12. Hyponatremia. Resolved. 13. Lactic acidosis secondary to shock. Continue to treat underlying shock, as stated above. Please note, I spent over 35 minutes of critical care time with this patient. Problems: OSIEL OMALLEY MD Aug 04, 2016 09:10
[2016-08-04 09:18] LABS: BASOPHIL # 0.4 10^3/ul (0.0-0.1); LYMPHOCYTES # 0.7 10^3/ul (0.8-2.9); MONOCYTE # 0.9 10^3/ul (0.3-0.9); NEUTROPHIL # 13.9 10^3/ul (1.6-7.5)
--- NOTE | 2016-08-04 09:21 | PN ---
Date/Time of Note Date/Time of Note DATE: 08/04/16 TIME: 09:06 Assessment/Plan VTE Prophylaxis VTE Prophylaxis Intervention: SCD's VTE Contraindication Reason: thrombocytopenia Lines/Catheters IV Catheter Type (from Nrs): JOSE RAUL CATH Urinary Cath still in place: Yes Reason Cath still needed: other (indicate) Assessment/Plan Assessment/Plan This is an unfortunate 60-year-old male who presented to the emergency room with diarrhea and vomiting and was found to be in severe renal failure but suffered a cardiac arrest while in the emergency room. He is now managed as follows: 1. Status post cardiac arrest with ROSC 2/2 severe meatbolic acidosis from #4 2. Acute encephalopathy secondary to #1 [toxic metabolic] 3. Ventilator dependent respiratory failure with probable ARDS and pulmonary edema per pulmonary 4. Severe acute renal failure now on hemodialysis with unknown baseline thought to be secondary to severe ATN 5. Severe Sepsis with septic shock and lactic acidosis on multiple pressors 6. Newly diagnosed Hypothyroidism 7. Alcohol use and abuse 8. Anemia likely secondary to chronic disease but a component of malnutrition from chronic alcohol abuse 9. Enterocolitis 10. Thrombocytopenia which could be as a result of liver disease, will have to rule out heparin-induced thrombocytopenia 11. Severe fatty liver with Transaminitis and mild hyperbilirubinemia indicating a measure of chronic liver disease vs shock liver 12. Bilateral pneumonia likely aspiration 13. Coagulase neg Staph UTI 14. Hypophosphatemia 15. Steroid-induced hyperglycemia vs type 2 DM requiring low-dose Lantus and NPH 16. Positive stool occult blood on twice daily PPI PLAN: * Continue broad-spectrum antibiotics with IV vancomycin and Zosyn /. Infectious disease consult * Continue to try to wean pressors * Continue hemodialysis per nephrology * Continue vent management and weaning * Monitor and titrate insulin for good blood sugar control while on steroids * Continue serial electrolyte monitoring and replenishment * Recheck thyroid profile in 2 weeks * Continue supportive ICU care Prophylaxis : SCDS / PPI Prognosis : Guarded Subjective 24 Hr Interval Summary Free Text/Dictation Patient seen and examined. Nursing reports no acute overnight events. Intubated and sedated for comfort, still on pressor support with high vent requirements Subjective hx not possible: pt critical status Exam/Review of Systems Vital Signs Vitals Vital Signs Date Time Temp Pulse Resp B/P Pulse Ox O2 Delivery O2 Flow Rate FiO2 08/04/16 08:08 85 08/04/16 07:00 30 119/88 97 08/04/16 05:15 100 08/04/16 04:00 98.1 08/04/16 01:15 Mechanical Ventilator 08/01/16 05:00 4.0 Intake and Output 08/03/16 08/03/16 08/04/16 15:00 23:00 07:00 Intake Total 1916.30 ml 1465.000 ml 1025.00 ml Output Total 2740 ml 125 ml 75 ml Balance -823.70 ml 1340.000 ml 950.00 ml Exam General: The patient is morbidly obese, intubated HEENT: Atraumatic, normocephalic. The pupils are equal and sluggish. / Conjunctival edema Neck: No JVP or lymphadenopathy Chest: Normal Lungs: Decreased breath sounds bilateral lower lung field Heart: Normal S1-S2, Abdomen: Soft , nontender, nondistended , bowel sounds are present. Extremities: Normal to inspection, + 1 edema no cyanosis Neurologic: Results Result Diagram: 08/04/16 0420 08/04/16 0420 Results 24 hrs Laboratory Tests Test 08/03/16 12:14 08/03/16 17:25 08/03/16 20:26 08/04/16 00:06 Bedside Glucose 161 107 79 99 Test 08/04/16 04:20 08/04/16 04:27 08/04/16 04:40 08/04/16 07:00 White Blood Count 18.0 H Red Blood Count 2.48 L Hemoglobin 8.4 L Hematocrit 22.9 L Mean Corpuscular Volume 92.3 Mean Corpuscular Hemoglobin 33.9 H Mean Corpuscular Hemoglobin Concent 36.7 Red Cell Distribution Width 14.6 H Platelet Count 72 #L Mean Platelet Volume 11.6 H Neutrophils % Eosinophils % Neutrophils # Eosinophils # Sodium Level 140 Potassium Level 4.0 Chloride Level 98 Carbon Dioxide Level 19 L Anion Gap 27 H Blood Urea Nitrogen 30 H Creatinine 2.65 H Glucose Level 100 # Lactic Acid Level 11.1 *H Calcium Level 7.4 L Phosphorus Level 2.2 L Total Bilirubin 3.0 H Direct Bilirubin 2.20 H Indirect Bilirubin 0.8 Aspartate Amino Transf (AST/SGOT) 116 H Alanine Aminotransferase (ALT/SGPT) 64 Alkaline Phosphatase 113 Total Protein 6.9 Albumin 3.6 Bedside Glucose 104 Magnesium Level 1.7 Blood Gas Specimen Source Blood arterial Arterial Blood Date Drawn 08/04/2016 7:40:17 AM Arterial Blood pH (Temp corrected) 7.477 H Arterial Blood pCO2 (Temp correct) 24.0 L Arterial Blood pO2 (Temp corrected) 166.5 H Arterial Blood HCO3 17.4 L Arterial Blood Base Excess -5.1 L Arterial Blood Oxygen Saturation 99.0 H Stanley Test ACCEPTAB Arterial Blood Gas Puncture Site Left Radial Arterial Blood Carboxyhemoglobin 0.3 Arterial Blood Methemoglobin 0.3 Blood Gas A-a O2 Differential 522.5 H Oxyhemoglobin Percent 98.4 Total Hemoglobin 8.9 L Blood Gas Temperature 37.0 Blood Gas Respiration Rate 30.0 Blood Gas Actual Respiration Rate 30 Blood Gas Modality VENT-AC FiO2 100.0 Blood Gas Tidal Volume 750.0 Blood Gas Low PEEP Setting 10.0 Blood Gas Inspiratory Pressure 39.0 Blood Gas Notified Whom RAHUL Blood Gas Notified Time 08/04/2016 7:53:02 AM Medications Medications Current Medications Lorazepam (Ativan) 0.5 mg Q6H PRN IV ANXIETY Last administered on 08/03/16 21: 06; Admin Dose 0.5 MG; Start 08/01/16 at 03:00 Ondansetron HCl (Zofran Inj) 4 mg Q6H PRN IV NAUSEA AND/OR VOMITING; Start at 03:00 Metoclopramide HCl (Reglan) 10 mg Q6H PRN IV NAUSEA AND/OR VOMITING; Start at 03:00 Acetaminophen (Tylenol Tab) 650 mg Q6H PRN PO PAIN LEVEL 1-3 OR FEVER; Start at 03:00 Heparin Sodium (Porcine) (Heparin (5000 Units/0.5 ml)) 5,000 unit Q8 SC Last administered on 08/04/16 05:12; Admin Dose 5,000 UNIT; Start 08/01/16 at 06:00 Acetaminophen (Tylenol Supp) 650 mg Q4H PRN [place] PAIN LEVEL 1-3 OR FEVER; Start 08/01/16 at 06:30 Pantoprazole 40 mg 40 mg BID@06,18 IV Last administered on 08/04/16 05:07; Admin Dose 40 MG; Start 08/01/16 at 06:00 Propofol 100 ml @ 3.33 mls/hr Q12H IV Last administered on 08/02/16 09:30; Admin Dose 26.64 MLS/HR; Start 08/01/16 at 09:30 Phenylephrine HCl 40 mg/Dextrose 500 ml @ 0 mls/hr TITRATE IV Last administered on 08/02/16 04:58; Admin Dose 112.5 MLS/HR; Start 08/01/16 at 16:00 Norepinephrine/ Dextrose (Levophed/D5W) 500 ml @ 0 mls/hr TITRATE IV Last administered on 08/04/16 04:32; Admin Dose 0 MLS/HR; Start 08/01/16 at 16:00 Methylprednisolone Sodium Succinate 60 mg 60 mg Q6 IV Last administered on 05:07; Admin Dose 60 MG; Start 08/01/16 at 18:00 Vasopressin 60 unit/Dextrose 60 ml @ 1.2 mls/hr Q12H IV Last administered on 03:55; Admin Dose 2.4 MLS/HR; Start 08/01/16 at 17:30 Epinephrine/ Sodium Chloride (EPINEPHrine/NS) 250 ml @ 3.75 mls/hr TITRATE IV Last administered on 08/01/16 18:50; Admin Dose 3.75 MLS/HR; Start 08/01/16 at 19:30 Eye Lubricant (Artificial Tears Oph) 2 drop QID BOTH EYES Last administered on 08/04/16 08:51; Admin Dose 2 DROP; Start 08/02/16 at 09:00 Insulin Aspart (Novolog Insulin Pen) NOVOLOG *MODERATE* ALGORI... Q4 SC Last administered on 08/03/16 12:32; Admin Dose 2 UNIT; Start 08/02/16 at 09:00 Miscellaneous Information 1 ea NOTE XX ; Start 08/02/16 at 09:00 Glucose (Glutose) 15 gm Q15M PRN PO DECREASED GLUCOSE; Start 08/02/16 at 09:00 Glucose (Glutose) 22.5 gm Q15M PRN PO DECREASED GLUCOSE; Start 08/02/16 at 09:00 Dextrose (D50w Syringe) 25 ml Q15M PRN IV DECREASED GLUCOSE; Start 08/02/16 at 09:00 Dextrose (D50w Syringe) 50 ml Q15M PRN IV DECREASED GLUCOSE; Start 08/02/16 at 09:00 Glucagon (Glucagen) 1 mg Q15M PRN IM DECREASED GLUCOSE; Start 08/02/16 at 09:00 Glucose 15 gm 15 gm Q15M PRN BUCCAL DECREASED GLUCOSE; Start 08/02/16 at 09:00 Midazolam HCl 50 ml @ 1 mls/hr TITRATE IV Last administered on 08/03/16 04:30; Admin Dose 10 MLS/HR; Start 08/02/16 at 09:30 Fentanyl (Sublimaze) 100 ml @ 2.5 mls/hr TITRATE IV Last administered on 06:40; Admin Dose 10 MLS/HR; Start 08/02/16 at 09:30 Insulin Glargine 5 unit 5 unit DAILY@20 SC Last administered on 08/02/16 20:51 ; Admin Dose 5 UNIT; Start 08/02/16 at 20:00 Sodium Chloride (NS) 1,000 ml @ 50 mls/hr Q20H IV Last administered on 05:06; Admin Dose 50 MLS/HR; Start 08/03/16 at 08:00 Calcium Carbonate (Ca Carbonate) 1,250 mg Q6 NGT Last administered on 08/04/16 05:07; Admin Dose 1,250 MG; Start 08/03/16 at 12:00 Levothyroxine Sodium (Synthroid) 100 mcg DAILY@06 NGT Last administered on 06:39; Admin Dose 100 MCG; Start 08/04/16 at 06:00 Insulin Human NPH 12 unit 12 unit Q6 SC Last administered on 08/03/16 17:50; Admin Dose 12 UNIT; Start 08/03/16 at 12:00 Metronidazole 100 ml @ 100 mls/hr Q8 IVPB Last administered on 08/04/16 05:07 ; Admin Dose 100 MLS/HR; Start 08/03/16 at 10:00 Piperacillin Sod/ Tazobactam Sod (Zosyn 3.375gm/ 100 ml (Pmx)) 100 ml @ 200 mls /hr Q8 IVPB Last administered on 08/04/16 05:06; Admin Dose 200 MLS/HR; Start 08/03/16 at 14:00 Procedures Procedures PROCEDURE: XR Chest 1 view. CLINICAL INDICATION: Shortness of breath TECHNIQUE: AP views of the chest was obtained. COMPARISON: Yesterday FINDINGS: The heart is large. Calcified atherosclerosis is noted in the aorta. Endotracheal and nasogastric tubes are stable and appear in grossly appropriate location. Patchy infiltrates throughout both lungs are unchanged. Elevation of the right hemidiaphragm is noted. The osseous structures are unchanged. IMPRESSION: Cardiomegaly with calcified atherosclerosis in the aorta. Stable patchy infiltrates throughout both lungs. Stable elevation of the right hemidiaphragm. RPTAT: AA .Pedro Ramirez MD, MD Date Time Electronically viewed and signed by .Pedro Ramirez MD, MD on 08/03/2016 10:18 .P/ CC: NIKO[facility] KWON [facility], [facility] KOLBY ALBERT Aug 04, 2016 09:17
--- NOTE | 2016-08-04 09:28 | CONS ---
Date/Time of Note Date/Time of Note DATE: 08/04/16 TIME: 09:24 Assessment/Plan Assessment/Plan Additional Assessment/Plan Ventilator setting; AC of 30, tidal volume of 750, PEEP of 10, 100% FiO2. Patient currently on fentanyl drip 100 mics per hour, Levophed 10 mics per minute. Next Assessment recommendations; 1. Patient admitted with respiratory failure status post at least 2 CPR's. 2. Renal failure, now requiring hemodialysis. 3. Bilateral pneumonia with pulmonary edema with radiological improvement. 4. Septic shock requiring pressor support. 5. Thrombocytopenia. Likely from underlying sepsis. 6. History of diabetes and hypo-thyroidism. 7. Morbid obesity. 8. Anemia. Ventilator settings have been adjusted, tidal volume has been decreased to 575 mL and FiO2 weaned down to 50%. We will continue current antibiotics other supportive measures. Patient metabolic acidosis is improving. Degree of anoxic brain injury if any is very hard to determine at this point. Prognosis is guarded. 40 minutes of critical care time was spent evaluating the patient Consultation Date/Type/Reason Admit Date/Time August 01, 2016 at 00:50 Initial Consult Date 08/01/16 Type of Consultation: Pulmonary/critical care Referring Provider: NIKOLE KWON MD, [facility] 24 HR Interval Summary Free Text/Dictation Patient condition remains extremely critical. Still requiring full ventilator support. As well as pressor support for hypotension. Patient currently getting hemodialysis at bedside. General exam; middle-aged male, morbidly obese, orally intubated, sedated, currently in no distress. Exam/Review of Systems Vital Signs Vitals Vital Signs Date Time Temp Pulse Resp B/P Pulse Ox O2 Delivery O2 Flow Rate FiO2 08/04/16 08:08 85 08/04/16 07:00 30 119/88 97 08/04/16 05:15 100 08/04/16 04:00 98.1 08/04/16 01:15 Mechanical Ventilator 08/01/16 05:00 4.0 Intake and Output 08/03/16 08/03/16 08/04/16 15:00 23:00 07:00 Intake Total 1916.30 ml 1465.000 ml 1025.00 ml Output Total 2740 ml 125 ml 75 ml Balance -823.70 ml 1340.000 ml 950.00 ml Exam HEENT exam; orally intubated. Patient bilateral subconjunctival edema. Pupils are small bilaterally. Dentition is fair. No neck masses. No thyromegaly. Chest examination; diminished breath sounds throughout. S1-S2 audible, no murmurs. Regular rhythm. Abdomen examination; soft, protuberant. Bowel sounds audible. Umbilicus is inverted. Extremity examination; no peripheral edema. Pulses 1+ bilaterally. [employer] examination; patient is sedated. Results Result Diagram: 08/04/16 0420 08/04/16 0420 Results 24 hrs Laboratory Tests Test 08/03/16 12:14 08/03/16 17:25 08/03/16 20:26 08/04/16 00:06 Bedside Glucose 161 107 79 99 Test 08/04/16 04:20 08/04/16 04:27 08/04/16 04:40 08/04/16 07:00 White Blood Count 18.0 H Red Blood Count 2.48 L Hemoglobin 8.4 L Hematocrit 22.9 L Mean Corpuscular Volume 92.3 Mean Corpuscular Hemoglobin 33.9 H Mean Corpuscular Hemoglobin Concent 36.7 Red Cell Distribution Width 14.6 H Platelet Count 72 #L Mean Platelet Volume 11.6 H Neutrophils % 77.0 Band Neutrophils % 11.0 H Lymphocytes % 4.0 L Monocytes % 5.0 Eosinophils % Basophils % 2.0 Metamyelocytes % 1.0 H Neutrophils # 13.9 H Lymphocytes # 0.7 L Monocytes # 0.9 Eosinophils # Basophils # 0.4 H Metamyelocytes # 0.2 Differential Comment MANUAL DIFF Sodium Level 140 Potassium Level 4.0 Chloride Level 98 Carbon Dioxide Level 19 L Anion Gap 27 H Blood Urea Nitrogen 30 H Creatinine 2.65 H Glucose Level 100 # Lactic Acid Level 11.1 *H Calcium Level 7.4 L Phosphorus Level 2.2 L Total Bilirubin 3.0 H Direct Bilirubin 2.20 H Indirect Bilirubin 0.8 Aspartate Amino Transf (AST/SGOT) 116 H Alanine Aminotransferase (ALT/SGPT) 64 Alkaline Phosphatase 113 Total Protein 6.9 Albumin 3.6 Bedside Glucose 104 Magnesium Level 1.7 Blood Gas Specimen Source Blood arterial Arterial Blood Date Drawn 08/04/2016 7:40:17 AM Arterial Blood pH (Temp corrected) 7.477 H Arterial Blood pCO2 (Temp correct) 24.0 L Arterial Blood pO2 (Temp corrected) 166.5 H Arterial Blood HCO3 17.4 L Arterial Blood Base Excess -5.1 L Arterial Blood Oxygen Saturation 99.0 H Stanley Test ACCEPTAB Arterial Blood Gas Puncture Site Left Radial Arterial Blood Carboxyhemoglobin 0.3 Arterial Blood Methemoglobin 0.3 Blood Gas A-a O2 Differential 522.5 H Oxyhemoglobin Percent 98.4 Total Hemoglobin 8.9 L Blood Gas Temperature 37.0 Blood Gas Respiration Rate 30.0 Blood Gas Actual Respiration Rate 30 Blood Gas Modality VENT-AC FiO2 100.0 Blood Gas Tidal Volume 750.0 Blood Gas Low PEEP Setting 10.0 Blood Gas Inspiratory Pressure 39.0 Blood Gas Notified Whom RAHUL Blood Gas Notified Time 08/04/2016 7:53:02 AM Medications Medications Current Medications Lorazepam (Ativan) 0.5 mg Q6H PRN IV ANXIETY Last administered on 08/03/16 21: 06; Admin Dose 0.5 MG; Start 08/01/16 at 03:00 Ondansetron HCl (Zofran Inj) 4 mg Q6H PRN IV NAUSEA AND/OR VOMITING; Start at 03:00 Metoclopramide HCl (Reglan) 10 mg Q6H PRN IV NAUSEA AND/OR VOMITING; Start at 03:00 Acetaminophen (Tylenol Tab) 650 mg Q6H PRN PO PAIN LEVEL 1-3 OR FEVER; Start at 03:00 Acetaminophen (Tylenol Supp) 650 mg Q4H PRN [place] PAIN LEVEL 1-3 OR FEVER; Start 08/01/16 at 06:30 Pantoprazole 40 mg 40 mg BID@06,18 IV Last administered on 08/04/16 05:07; Admin Dose 40 MG; Start 08/01/16 at 06:00 Propofol 100 ml @ 3.33 mls/hr Q12H IV Last administered on 08/02/16 09:30; Admin Dose 26.64 MLS/HR; Start 08/01/16 at 09:30 Phenylephrine HCl 40 mg/Dextrose 500 ml @ 0 mls/hr TITRATE IV Last administered on 08/02/16 04:58; Admin Dose 112.5 MLS/HR; Start 08/01/16 at 16:00 Norepinephrine/ Dextrose (Levophed/D5W) 500 ml @ 0 mls/hr TITRATE IV Last administered on 08/04/16 04:32; Admin Dose 0 MLS/HR; Start 08/01/16 at 16:00 Methylprednisolone Sodium Succinate 60 mg 60 mg Q6 IV Last administered on 05:07; Admin Dose 60 MG; Start 08/01/16 at 18:00 Vasopressin 60 unit/Dextrose 60 ml @ 1.2 mls/hr Q12H IV Last administered on 03:55; Admin Dose 2.4 MLS/HR; Start 08/01/16 at 17:30 Epinephrine/ Sodium Chloride (EPINEPHrine/NS) 250 ml @ 3.75 mls/hr TITRATE IV Last administered on 08/01/16 18:50; Admin Dose 3.75 MLS/HR; Start 08/01/16 at 19:30 Eye Lubricant (Artificial Tears Oph) 2 drop QID BOTH EYES Last administered on 08/04/16 08:51; Admin Dose 2 DROP; Start 08/02/16 at 09:00 Insulin Aspart (Novolog Insulin Pen) NOVOLOG *MODERATE* ALGORI... Q4 SC Last administered on 08/03/16 12:32; Admin Dose 2 UNIT; Start 08/02/16 at 09:00 Miscellaneous Information 1 ea NOTE XX ; Start 08/02/16 at 09:00 Glucose (Glutose) 15 gm Q15M PRN PO DECREASED GLUCOSE; Start 08/02/16 at 09:00 Glucose (Glutose) 22.5 gm Q15M PRN PO DECREASED GLUCOSE; Start 08/02/16 at 09:00 Dextrose (D50w Syringe) 25 ml Q15M PRN IV DECREASED GLUCOSE; Start 08/02/16 at 09:00 Dextrose (D50w Syringe) 50 ml Q15M PRN IV DECREASED GLUCOSE; Start 08/02/16 at 09:00 Glucagon (Glucagen) 1 mg Q15M PRN IM DECREASED GLUCOSE; Start 08/02/16 at 09:00 Glucose 15 gm 15 gm Q15M PRN BUCCAL DECREASED GLUCOSE; Start 08/02/16 at 09:00 Midazolam HCl 50 ml @ 1 mls/hr TITRATE IV Last administered on 08/03/16 04:30; Admin Dose 10 MLS/HR; Start 08/02/16 at 09:30 Fentanyl (Sublimaze) 100 ml @ 2.5 mls/hr TITRATE IV Last administered on 06:40; Admin Dose 10 MLS/HR; Start 08/02/16 at 09:30 Insulin Glargine 5 unit 5 unit DAILY@20 SC Last administered on 08/02/16 20:51 ; Admin Dose 5 UNIT; Start 08/02/16 at 20:00 Sodium Chloride (NS) 1,000 ml @ 50 mls/hr Q20H IV Last administered on 05:06; Admin Dose 50 MLS/HR; Start 08/03/16 at 08:00 Calcium Carbonate (Ca Carbonate) 1,250 mg Q6 NGT Last administered on 08/04/16 05:07; Admin Dose 1,250 MG; Start 08/03/16 at 12:00 Levothyroxine Sodium (Synthroid) 100 mcg DAILY@06 NGT Last administered on 06:39; Admin Dose 100 MCG; Start 08/04/16 at 06:00 Insulin Human NPH 12 unit 12 unit Q6 SC Last administered on 08/03/16 17:50; Admin Dose 12 UNIT; Start 08/03/16 at 12:00 Metronidazole 100 ml @ 100 mls/hr Q8 IVPB Last administered on 08/04/16 05:07 ; Admin Dose 100 MLS/HR; Start 08/03/16 at 10:00 Piperacillin Sod/ Tazobactam Sod 100 ml @ 200 mls/hr Q8 IVPB Last administered on 08/04/16 05:06; Admin Dose 200 MLS/HR; Start 08/03/16 at 14:00 Sodium Phosphate/ Sodium Chloride (Sodium Phosphate/NS) 255 ml @ 63.75 mls/ hr ONCE ONCE IVPB ; Start 08/04/16 at 09:30; Stop 08/04/16 at 13:29; Status MIGUEL HART Aug 04, 2016 09:28
[2016-08-04] MEDS ORDERED: SODIUM PHOSPHATE 15 MMOL in SOD CHLORIDE 0.9% 250 ML IVPB ONE (10:00)
--- NOTE | 2016-08-04 12:03 | CONS ---
Date/Time of Note Date/Time of Note DATE: 08/04/16 TIME: 12:01 Assessment/Plan Assessment/Plan Chief Complaint/Hosp Course PEA cardiac arrest: secondary to severe metabolic acidosis. No VT/VF or EKG changes to suggest primary cardiac etiology. Trops ok, EF preserved. Acute respiratory failure: intubated during code. ?ARDS as not much improvement after HD. Now slowly improving Severe metabolic acidosis: likely was the culprit for the arrest. HD started Shock: ?septic.Down to 1 pressor Acute renal failure: unclear etiology now on HD, making some urine Hypoglycemia Hypothyroidism Diarrhea/n/v/colitis -wean off levophed, goal SBP >100 or MAP >65 -vent management per pulm -HD per nephro Problems: Consultation Date/Type/Reason Admit Date/Time August 01, 2016 at 00:50 Initial Consult Date 08/01/16 Type of Consultation: Cardiology Referring Provider: NIKOLE KWON MD, [facility] 24 HR Interval Summary Free Text/Dictation Down to low dose levophed. FiO2 improving. Exam/Review of Systems Vital Signs Vitals Vital Signs Date Time Temp Pulse Resp B/P Pulse Ox O2 Delivery O2 Flow Rate FiO2 08/04/16 10:21 95 08/04/16 10:20 24 08/04/16 07:00 119/88 97 08/04/16 05:15 100 08/04/16 04:00 98.1 08/04/16 01:15 Mechanical Ventilator 08/01/16 05:00 4.0 Intake and Output 08/03/16 08/03/16 08/04/16 15:00 23:00 07:00 Intake Total 1916.30 ml 1465.000 ml 1025.00 ml Output Total 2740 ml 125 ml 75 ml Balance -823.70 ml 1340.000 ml 950.00 ml Exam Constitutional: No alert, No oriented Head: atraumatic, normocephalic Neck: No jvd Respiratory: diminished breath sounds, No clear to auscultation Cardiovascular: regular rate and rhythm, No edema, No systolic murmur Gastrointestinal: non-tender, soft Neurological: No nl mental status, No nl speech Results Result Diagram: 08/04/16 0420 08/04/16 0420 Results 24 hrs Laboratory Tests Test 08/03/16 12:14 08/03/16 17:25 08/03/16 20:26 08/04/16 00:06 Bedside Glucose 161 107 79 99 Test 08/04/16 04:20 08/04/16 04:27 08/04/16 04:40 08/04/16 07:00 White Blood Count 18.0 H Red Blood Count 2.48 L Hemoglobin 8.4 L Hematocrit 22.9 L Mean Corpuscular Volume 92.3 Mean Corpuscular Hemoglobin 33.9 H Mean Corpuscular Hemoglobin Concent 36.7 Red Cell Distribution Width 14.6 H Platelet Count 72 #L Mean Platelet Volume 11.6 H Neutrophils % 77.0 Band Neutrophils % 11.0 H Lymphocytes % 4.0 L Monocytes % 5.0 Eosinophils % Basophils % 2.0 Metamyelocytes % 1.0 H Neutrophils # 13.9 H Lymphocytes # 0.7 L Monocytes # 0.9 Eosinophils # Basophils # 0.4 H Metamyelocytes # 0.2 Differential Comment MANUAL DIFF Sodium Level 140 Potassium Level 4.0 Chloride Level 98 Carbon Dioxide Level 19 L Anion Gap 27 H Blood Urea Nitrogen 30 H Creatinine 2.65 H Glucose Level 100 # Lactic Acid Level 11.1 *H Calcium Level 7.4 L Phosphorus Level 2.2 L Total Bilirubin 3.0 H Direct Bilirubin 2.20 H Indirect Bilirubin 0.8 Aspartate Amino Transf (AST/SGOT) 116 H Alanine Aminotransferase (ALT/SGPT) 64 Alkaline Phosphatase 113 Total Protein 6.9 Albumin 3.6 Bedside Glucose 104 Magnesium Level 1.7 Blood Gas Specimen Source Blood arterial Arterial Blood Date Drawn 08/04/2016 7:40:17 AM Arterial Blood pH (Temp corrected) 7.477 H Arterial Blood pCO2 (Temp correct) 24.0 L Arterial Blood pO2 (Temp corrected) 166.5 H Arterial Blood HCO3 17.4 L Arterial Blood Base Excess -5.1 L Arterial Blood Oxygen Saturation 99.0 H Stanley Test ACCEPTAB Arterial Blood Gas Puncture Site Left Radial Arterial Blood Carboxyhemoglobin 0.3 Arterial Blood Methemoglobin 0.3 Blood Gas A-a O2 Differential 522.5 H Oxyhemoglobin Percent 98.4 Total Hemoglobin 8.9 L Blood Gas Temperature 37.0 Blood Gas Respiration Rate 30.0 Blood Gas Actual Respiration Rate 30 Blood Gas Modality VENT-AC FiO2 100.0 Blood Gas Tidal Volume 750.0 Blood Gas Low PEEP Setting 10.0 Blood Gas Inspiratory Pressure 39.0 Blood Gas Notified Whom RAHUL Blood Gas Notified Time 08/04/2016 7:53:02 AM Test 08/04/16 08:53 Bedside Glucose 109 Medications Medications Current Medications Lorazepam (Ativan) 0.5 mg Q6H PRN IV ANXIETY Last administered on 08/03/16 21: 06; Admin Dose 0.5 MG; Start 08/01/16 at 03:00 Ondansetron HCl (Zofran Inj) 4 mg Q6H PRN IV NAUSEA AND/OR VOMITING; Start at 03:00 Metoclopramide HCl (Reglan) 10 mg Q6H PRN IV NAUSEA AND/OR VOMITING; Start at 03:00 Acetaminophen (Tylenol Tab) 650 mg Q6H PRN PO PAIN LEVEL 1-3 OR FEVER; Start at 03:00 Acetaminophen (Tylenol Supp) 650 mg Q4H PRN IA PAIN LEVEL 1-3 OR FEVER; Start 08/01/16 at 06:30 Pantoprazole 40 mg 40 mg BID@06,18 IV Last administered on 08/04/16 05:07; Admin Dose 40 MG; Start 08/01/16 at 06:00 Propofol 100 ml @ 3.33 mls/hr Q12H IV Last administered on 08/02/16 09:30; Admin Dose 26.64 MLS/HR; Start 08/01/16 at 09:30 Phenylephrine HCl 40 mg/Dextrose 500 ml @ 0 mls/hr TITRATE IV Last administered on 08/02/16 04:58; Admin Dose 112.5 MLS/HR; Start 08/01/16 at 16:00 Norepinephrine/ Dextrose (Levophed/D5W) 500 ml @ 0 mls/hr TITRATE IV Last administered on 08/04/16 04:32; Admin Dose 0 MLS/HR; Start 08/01/16 at 16:00 Methylprednisolone Sodium Succinate 60 mg 60 mg Q6 IV Last administered on 11:14; Admin Dose 60 MG; Start 08/01/16 at 18:00 Vasopressin 60 unit/Dextrose 60 ml @ 1.2 mls/hr Q12H IV Last administered on 03:55; Admin Dose 2.4 MLS/HR; Start 08/01/16 at 17:30 Epinephrine/ Sodium Chloride (EPINEPHrine/NS) 250 ml @ 3.75 mls/hr TITRATE IV Last administered on 08/01/16 18:50; Admin Dose 3.75 MLS/HR; Start 08/01/16 at 19:30 Eye Lubricant (Artificial Tears Oph) 2 drop QID BOTH EYES Last administered on 08/04/16 08:51; Admin Dose 2 DROP; Start 08/02/16 at 09:00 Insulin Aspart (Novolog Insulin Pen) NOVOLOG *MODERATE* ALGORI... Q4 SC Last administered on 08/03/16 12:32; Admin Dose 2 UNIT; Start 08/02/16 at 09:00 Miscellaneous Information 1 ea NOTE XX ; Start 08/02/16 at 09:00 Glucose (Glutose) 15 gm Q15M PRN PO DECREASED GLUCOSE; Start 08/02/16 at 09:00 Glucose (Glutose) 22.5 gm Q15M PRN PO DECREASED GLUCOSE; Start 08/02/16 at 09:00 Dextrose (D50w Syringe) 25 ml Q15M PRN IV DECREASED GLUCOSE; Start 08/02/16 at 09:00 Dextrose (D50w Syringe) 50 ml Q15M PRN IV DECREASED GLUCOSE; Start 08/02/16 at 09:00 Glucagon (Glucagen) 1 mg Q15M PRN IM DECREASED GLUCOSE; Start 08/02/16 at 09:00 Glucose 15 gm 15 gm Q15M PRN BUCCAL DECREASED GLUCOSE; Start 08/02/16 at 09:00 Midazolam HCl 50 ml @ 1 mls/hr TITRATE IV Last administered on 08/03/16 04:30; Admin Dose 10 MLS/HR; Start 08/02/16 at 09:30 Fentanyl (Sublimaze) 100 ml @ 2.5 mls/hr TITRATE IV Last administered on 06:40; Admin Dose 10 MLS/HR; Start 08/02/16 at 09:30 Insulin Glargine 5 unit 5 unit DAILY@20 SC Last administered on 08/02/16 20:51 ; Admin Dose 5 UNIT; Start 08/02/16 at 20:00 Sodium Chloride (NS) 1,000 ml @ 50 mls/hr Q20H IV Last administered on 05:06; Admin Dose 50 MLS/HR; Start 08/03/16 at 08:00 Calcium Carbonate (Ca Carbonate) 1,250 mg Q6 NGT Last administered on 08/04/16 11:14; Admin Dose 1,250 MG; Start 08/03/16 at 12:00 Levothyroxine Sodium (Synthroid) 100 mcg DAILY@06 NGT Last administered on 06:39; Admin Dose 100 MCG; Start 08/04/16 at 06:00 Insulin Human NPH 12 unit 12 unit Q6 SC Last administered on 08/04/16 11:16; Admin Dose 12 UNIT; Start 08/03/16 at 12:00 Metronidazole 100 ml @ 100 mls/hr Q8 IVPB Last administered on 08/04/16 05:07 ; Admin Dose 100 MLS/HR; Start 08/03/16 at 10:00 Piperacillin Sod/ Tazobactam Sod 100 ml @ 200 mls/hr Q8 IVPB Last administered on 08/04/16 05:06; Admin Dose 200 MLS/HR; Start 08/03/16 at 14:00 Sodium Phosphate/ Sodium Chloride (Sodium Phosphate/NS) 255 ml @ 63.75 mls/ hr ONCE ONCE IVPB Last administered on 08/04/16 11:13; Admin Dose 63.75 MLS/HR; Start 08/04/16 at 10:00; Stop 08/04/16 at 13:59 SEPIDEH HAN Aug 04, 2016 12:03
--- NOTE | 2016-08-04 18:59 | CONS ---
Date/Time of Note Date/Time of Note DATE: 08/04/16 TIME: 18:47 Assessment/Plan Assessment/Plan Problems: (1) Hyperglycemia Status: Acute Comment: hyperglycemia secondary to corticosteroids currently well controlled on current insulin regimen. (2) Hypocalcemia Status: Acute Comment: Receiving calcium via NGT tube. Improved levels today but still suboptimal. Will check ionized calcium in the AM. (3) Hypothyroidism Status: Chronic Comment: On thyroid replacement. Qualifiers: Hypothyroidism type: acquired Qualified Code: E03.9 - Acquired hypothyroidism (4) High anion gap metabolic acidosis Status: Acute Comment: Elevated lactic acidosis. On antibiotics. Non ketotic. Further causes being worked up. Consultation Date/Type/Reason Admit Date/Time August 01, 2016 at 00:50 Initial Consult Date 08/01/16 Type of Consultation: Endocrine Reason for Consultation Diabetes Mellitus, hypocalcemia, hypothyroidism Referring Provider: NIKOLE KWON MD, [facility] 24 HR Interval Summary Subjective hx not possible: pt non-verbal, pt critical status Exam/Review of Systems Vital Signs Vitals Vital Signs Date Time Temp Pulse Resp B/P Pulse Ox O2 Delivery O2 Flow Rate FiO2 08/04/16 18:00 85 30 105/73 92 08/04/16 17:20 65 08/04/16 17:00 Mechanical Ventilator 08/04/16 16:00 98.0 08/01/16 05:00 4.0 Intake and Output 08/03/16 08/03/16 08/04/16 15:00 23:00 07:00 Intake Total 1916.30 ml 1465.000 ml 1025.00 ml Output Total 2740 ml 125 ml 75 ml Balance -823.70 ml 1340.000 ml 950.00 ml Exam Sedated Constitutional: non-verbal ENMT: intubated Respiratory: other (coarse breath sounds) Cardiovascular: regular rate and rhythm Gastrointestinal: soft Extremities: edema (trace), normal pulses Neurological: other (non purposeful movement when off sedation) Results POC glucose and labs reviewed Result Diagram: 08/04/1641908/04/16 0420 Results 24 hrs Laboratory Tests Test 08/03/16 20:26 08/04/16 00:06 08/04/16 04:20 08/04/16 04:27 Bedside Glucose 79 99 104 White Blood Count 18.0 H Red Blood Count 2.48 L Hemoglobin 8.4 L Hematocrit 22.9 L Mean Corpuscular Volume 92.3 Mean Corpuscular Hemoglobin 33.9 H Mean Corpuscular Hemoglobin Concent 36.7 Red Cell Distribution Width 14.6 H Platelet Count 72 #L Mean Platelet Volume 11.6 H Neutrophils % 77.0 Band Neutrophils % 11.0 H Lymphocytes % 4.0 L Monocytes % 5.0 Eosinophils % Basophils % 2.0 Metamyelocytes % 1.0 H Neutrophils # 13.9 H Lymphocytes # 0.7 L Monocytes # 0.9 Eosinophils # Basophils # 0.4 H Metamyelocytes # 0.2 Differential Comment MANUAL DIFF Sodium Level 140 Potassium Level 4.0 Chloride Level 98 Carbon Dioxide Level 19 L Anion Gap 27 H Blood Urea Nitrogen 30 H Creatinine 2.65 H Glucose Level 100 # Lactic Acid Level 11.1 *H Calcium Level 7.4 L Phosphorus Level 2.2 L Total Bilirubin 3.0 H Direct Bilirubin 2.20 H Indirect Bilirubin 0.8 Aspartate Amino Transf (AST/SGOT) 116 H Alanine Aminotransferase (ALT/SGPT) 64 Alkaline Phosphatase 113 Total Protein 6.9 Albumin 3.6 Test 08/04/16 04:40 08/04/16 07:00 08/04/16 08:53 08/04/16 12:40 Magnesium Level 1.7 Blood Gas Specimen Source Blood arterial Arterial Blood Date Drawn 08/04/2016 7:40:17 AM Arterial Blood pH (Temp corrected) 7.477 H Arterial Blood pCO2 (Temp correct) 24.0 L Arterial Blood pO2 (Temp corrected) 166.5 H Arterial Blood HCO3 17.4 L Arterial Blood Base Excess -5.1 L Arterial Blood Oxygen Saturation 99.0 H Stanley Test ACCEPTAB Arterial Blood Gas Puncture Site Left Radial Arterial Blood Carboxyhemoglobin 0.3 Arterial Blood Methemoglobin 0.3 Blood Gas A-a O2 Differential 522.5 H Oxyhemoglobin Percent 98.4 Total Hemoglobin 8.9 L Blood Gas Temperature 37.0 Blood Gas Respiration Rate 30.0 Blood Gas Actual Respiration Rate 30 Blood Gas Modality VENT-AC FiO2 100.0 Blood Gas Tidal Volume 750.0 Blood Gas Low PEEP Setting 10.0 Blood Gas Inspiratory Pressure 39.0 Blood Gas Notified Whom JMD Blood Gas Notified Time 08/04/2016 7:53:02 AM Bedside Glucose 109 149 Medications Medications Current Medications Lorazepam (Ativan) 0.5 mg Q6H PRN IV ANXIETY Last administered on 08/03/16 21: 06; Admin Dose 0.5 MG; Start 08/01/16 at 03:00 Ondansetron HCl (Zofran Inj) 4 mg Q6H PRN IV NAUSEA AND/OR VOMITING; Start at 03:00 Metoclopramide HCl (Reglan) 10 mg Q6H PRN IV NAUSEA AND/OR VOMITING; Start at 03:00 Acetaminophen (Tylenol Tab) 650 mg Q6H PRN PO PAIN LEVEL 1-3 OR FEVER; Start at 03:00 Acetaminophen (Tylenol Supp) 650 mg Q4H PRN SC PAIN LEVEL 1-3 OR FEVER; Start 08/01/16 at 06:30 Pantoprazole 40 mg 40 mg BID@06,18 IV Last administered on 08/04/16 18:22; Admin Dose 40 MG; Start 08/01/16 at 06:00 Propofol 100 ml @ 3.33 mls/hr Q12H IV Last administered on 08/02/16 09:30; Admin Dose 26.64 MLS/HR; Start 08/01/16 at 09:30 Phenylephrine HCl 40 mg/Dextrose 500 ml @ 0 mls/hr TITRATE IV Last administered on 08/02/16 04:58; Admin Dose 112.5 MLS/HR; Start 08/01/16 at 16:00 Norepinephrine/ Dextrose (Levophed/D5W) 500 ml @ 0 mls/hr TITRATE IV Last administered on 08/04/16 04:32; Admin Dose 0 MLS/HR; Start 08/01/16 at 16:00 Methylprednisolone Sodium Succinate 60 mg 60 mg Q6 IV Last administered on 18:22; Admin Dose 60 MG; Start 08/01/16 at 18:00 Vasopressin 60 unit/Dextrose 60 ml @ 1.2 mls/hr Q12H IV Last administered on 03:55; Admin Dose 2.4 MLS/HR; Start 08/01/16 at 17:30 Epinephrine/ Sodium Chloride (EPINEPHrine/NS) 250 ml @ 3.75 mls/hr TITRATE IV Last administered on 08/01/16 18:50; Admin Dose 3.75 MLS/HR; Start 08/01/16 at 19:30 Eye Lubricant (Artificial Tears Oph) 2 drop QID BOTH EYES Last administered on 08/04/16 17:00; Admin Dose 2 DROP; Start 08/02/16 at 09:00 Insulin Aspart (Novolog Insulin Pen) NOVOLOG *MODERATE* ALGORI... Q4 SC Last administered on 08/04/16 13:00; Admin Dose 2 UNIT; Start 08/02/16 at 09:00 Miscellaneous Information 1 ea NOTE XX ; Start 08/02/16 at 09:00 Glucose (Glutose) 15 gm Q15M PRN PO DECREASED GLUCOSE; Start 08/02/16 at 09:00 Glucose (Glutose) 22.5 gm Q15M PRN PO DECREASED GLUCOSE; Start 08/02/16 at 09:00 Dextrose (D50w Syringe) 25 ml Q15M PRN IV DECREASED GLUCOSE; Start 08/02/16 at 09:00 Dextrose (D50w Syringe) 50 ml Q15M PRN IV DECREASED GLUCOSE; Start 08/02/16 at 09:00 Glucagon (Glucagen) 1 mg Q15M PRN IM DECREASED GLUCOSE; Start 08/02/16 at 09:00 Glucose 15 gm 15 gm Q15M PRN BUCCAL DECREASED GLUCOSE; Start 08/02/16 at 09:00 Midazolam HCl 50 ml @ 1 mls/hr TITRATE IV Last administered on 08/03/16 04:30; Admin Dose 10 MLS/HR; Start 08/02/16 at 09:30 Fentanyl 100 ml @ 2.5 mls/hr TITRATE IV Last administered on 08/04/16 06:40; Admin Dose 10 MLS/HR; Start 08/02/16 at 09:30 Sodium Chloride (NS) 1,000 ml @ 50 mls/hr Q20H IV Last administered on 05:06; Admin Dose 50 MLS/HR; Start 08/03/16 at 08:00 Calcium Carbonate (Ca Carbonate) 1,250 mg Q6 NGT Last administered on 08/04/16 18:22; Admin Dose 1,250 MG; Start 08/03/16 at 12:00 Levothyroxine Sodium (Synthroid) 100 mcg DAILY@06 NGT Last administered on 06:39; Admin Dose 100 MCG; Start 08/04/16 at 06:00 Insulin Human NPH 12 unit 12 unit Q6 SC Last administered on 08/04/16 18:38; Admin Dose 12 UNIT; Start 08/03/16 at 12:00 Metronidazole 100 ml @ 100 mls/hr Q8 IVPB Last administered on 08/04/16 14:00 ; Admin Dose 100 MLS/HR; Start 08/03/16 at 10:00 Piperacillin Sod/ Tazobactam Sod (Zosyn 3.375gm/ 100 ml (Pmx)) 100 ml @ 200 mls /hr Q8 IVPB Last administered on 08/04/16 14:00; Admin Dose 200 MLS/HR; Start 08/03/16 at 14:00 ALVAREZ VILLAFANA MD Aug 04, 2016 18:57
--- NOTE | 2016-08-04 20:51 | RADRPT ---
PROCEDURE: XR Chest. CLINICAL INDICATION: Intubated, respiratory failure TECHNIQUE: Anterior chest x-ray. COMPARISON: Chest radiograph performed the prior day. FINDINGS: There is stable and satisfactory position of the life-support lines. Bilateral perihilar interstitial and airspace opacities suggest pulmonary edema, unchanged. Retrocardiac consolidation is unchanged from previous exam. The cardiomediastinal contour is stable. There is no free air under the hemidiaphragms. The soft tissues and bony structures are unchanged. IMPRESSION: 1. Stable and satisfactory position of the life-support lines. 2. Bilateral perihilar interstitial and airspace infiltrates or pulmonary edema, unchanged. 3. Cardiomegaly. 4. Atherosclerotic calcification of the aorta. 5. Retrocardiac atelectasis versus dense infiltrate, unchanged. RPTAT: HLDM .Devang Garcia MD, Date Time Electronically viewed and signed by .Devang Garcia MD, on 08/04/2016 20:51 .M/
[2016-08-05] VITALS (108 sets, daily range): BP systolic 75–151; BP diastolic 52–118; PULSE 81–95; RESP 25–30
[2016-08-05] MEDS: SOD CHLORIDE 0.9% 1,000 ML IV SCH (00:56)
[2016-08-05] MEDS: INSULIN ASPART [NOVOLOG] 3 ML PEN SC SCH ×6 (00:58→21:08)
[2016-08-05] MEDS: FENTAnyl (DRIP) 1000 mcg/100mL 100 ML IV SCH ×3 (03:33→23:14)
[2016-08-05] MEDS: VASOPRESSIN 60 UNIT in DEXTROSE 5% 57 ML IV SCH ×2 (04:28→17:06)
[2016-08-05 04:32] LABS: ADD SCAN DIFF NO
[2016-08-05 04:37] LABS: ABNORMAL IP MESSAGE 1; BASOPHILS % 0.1 % (0.0-2.0); HEMATOCRIT 21.9 % (42.0-52.0); HEMOGLOBIN 7.9 g/dl (14.0-18.0); LYMPHOCYTES % 6.8 % (15.0-51.0); MEAN CORPUSCULAR HEMOGLOBIN 33.9 pg (29.0-33.0); MEAN CORPUSCULAR HGB CONC 36.1 g/dl (32.0-37.0); MEAN PLATELET VOLUME 11.8 fl (7.4-10.4); MONOCYTE # 0.7 10^3/ul (0.3-0.9); MONOCYTES % 4.9 % (0.0-11.0); NEUTROPHILS % 78.7 % (39.0-77.0); NUCLEATED RED BLOOD CELLS # 0.2 10^3/ul (0.0-0.0); NUCLEATED RED BLOOD CELLS% 1.6 /100WBC (0.0-0.0); PLATELET COUNT 57 10^3/UL (140-415); RED BLOOD COUNT 2.33 10^6/ul (4.70-6.10); RED CELL DISTRIBUTION WIDTH 15.7 % (11.5-14.5); WHITE BLOOD COUNT 13.9 10^3/ul (4.8-10.8)
[2016-08-05 05:03] LABS: ALBUMIN 3.5 g/dl (3.3-4.9); BILIRUBIN,DIRECT 2.5 mg/dl (0.00-0.20); BILIRUBIN,INDIRECT 0.7 mg/dl (0-1.1); BILIRUBIN,TOTAL 3.2 mg/dl (0.2-1.3); CALCIUM 7.9 mg/dl (8.4-10.2); POTASSIUM 4.1 mmol/L (3.5-5.1)
[2016-08-05 05:04] LABS: MAGNESIUM 1.8 mg/dl (1.7-2.5); PHOSPHORUS 2.7 mg/dl (2.5-4.9)
[2016-08-05] MEDS: PANTOPRAZOLE 40 MG INJ IV SCH ×2 (05:15→17:07)
[2016-08-05] MEDS: METHYLPREDNISOLONE 125 MG INJ IV SCH (05:15)
[2016-08-05] MEDS: PIPER-TAZO 3.375 GM IV (PMX) 100 ML IVPB SCH ×3 (05:15→21:03)
[2016-08-05] MEDS: CA CARBONATE (250 MG/ML) 5ML CUP NGT SCH ×3 (05:15→17:07)
[2016-08-05] MEDS: LEVOTHYROXINE 100 MCG TAB NGT SCH (05:15)
[2016-08-05 05:17] LABS: CREATININE 3.18 mg/dl (0.61-1.24)
[2016-08-05] MEDS: NPH, HUMAN INSULIN ISOPHANE 3ML VIAL SC SCH ×3 (05:24→17:08)
[2016-08-05] MEDS: metroNIDAZOLE 500 MG/NS (PMX) 100 ML IVPB SCH ×3 (05:49→21:04)
--- NOTE | 2016-08-05 06:27 | CONS ---
Date/Time of Note Date/Time of Note DATE: 08/05/16 TIME: 06:20 Consult Date/Type/Reason Admit Date/Time August 01, 2016 at 00:50 Initial Consult Date 08/01/16 Type of Consultation: neph Ordering Provider: NIKOLE KWON MD, [facility] Subjective The patient remains critically ill. Remains on pressor support, although being weaned down. The patient tolerated hd yesterday. The patient remains obtunded. No other acute events noted. No hemoptysis, hematemesis or hematochezia. poc reviewed with dr. aponte. OBJECTIVE: HEENT: Head is normocephalic. Pupils are reactive. NECK: Supple. HEART: Regular rate, tachycardic. LUNGS: Showed diminished breath sounds at the base. Positive rhonchi and crackles. ABDOMEN: Obese, soft, nontender to palpation. No rebound or guarding. EXTREMITIES: Negative for clubbing or cyanosis. Positive edema. DERMATOLOGIC: No rashes. MUSCULOSKELETAL: Have no joint effusion. NEUROLOGIC: No change in exam. MEDICATIONS: The patient's medications have been reviewed. Objective Vital Signs Date Time Temp Pulse Resp B/P Pulse Ox O2 Delivery O2 Flow Rate FiO2 08/05/16 05:16 85 30 96 60 08/05/16 04:30 80/54 Mechanical Ventilator 08/05/16 04:00 98.2 Intake and Output 08/04/16 08/04/16 08/05/16 15:00 23:00 07:00 Intake Total 710 ml 462.5 ml 698.75 ml Output Total 3500 ml Balance -2790 ml 462.5 ml 698.75 ml Results/Medications Result Diagram: 08/05/16 0400 08/05/16 0400 Results 24 hrs Laboratory Tests Test 08/04/16 07:00 08/04/16 08:53 08/04/16 12:40 08/04/16 18:27 Blood Gas Specimen Source Blood arterial Arterial Blood Date Drawn 08/04/2016 7:40:17 AM Arterial Blood pH (Temp corrected) 7.477 H Arterial Blood pCO2 (Temp correct) 24.0 L Arterial Blood pO2 (Temp corrected) 166.5 H Arterial Blood HCO3 17.4 L Arterial Blood Base Excess -5.1 L Arterial Blood Oxygen Saturation 99.0 H Stanley Test ACCEPTAB Arterial Blood Gas Puncture Site Left Radial Arterial Blood Carboxyhemoglobin 0.3 Arterial Blood Methemoglobin 0.3 Blood Gas A-a O2 Differential 522.5 H Oxyhemoglobin Percent 98.4 Total Hemoglobin 8.9 L Blood Gas Temperature 37.0 Blood Gas Respiration Rate 30.0 Blood Gas Actual Respiration Rate 30 Blood Gas Modality VENT-AC FiO2 100.0 Blood Gas Tidal Volume 750.0 Blood Gas Low PEEP Setting 10.0 Blood Gas Inspiratory Pressure 39.0 Blood Gas Notified Whom HOLLANDD Blood Gas Notified Time 08/04/2016 7:53:02 AM Bedside Glucose 109 149 145 Test 08/04/16 20:54 08/05/16 00:55 08/05/16 04:00 08/05/16 05:19 Bedside Glucose 145 154 140 White Blood Count 13.9 #H Red Blood Count 2.33 L Hemoglobin 7.9 L Hematocrit 21.9 L Mean Corpuscular Volume 94.0 Mean Corpuscular Hemoglobin 33.9 H Mean Corpuscular Hemoglobin Concent 36.1 Red Cell Distribution Width 15.7 H Platelet Count 57 #L Mean Platelet Volume 11.8 H Neutrophils % 78.7 H Lymphocytes % 6.8 L Monocytes % 4.9 Eosinophils % 0.0 Basophils % 0.1 Nucleated Red Blood Cells % 1.6 H Neutrophils # 11.0 H Lymphocytes # 1.0 Monocytes # 0.7 Eosinophils # 0.0 Basophils # 0.0 Nucleated Red Blood Cells # 0.2 H Sodium Level 142 Potassium Level 4.1 Chloride Level 102 Carbon Dioxide Level 21 Anion Gap 23 H Blood Urea Nitrogen 37 H Creatinine 3.18 H Glucose Level 128 Calcium Level 7.9 L Ionized Calcium (Measured) 1.0 L Phosphorus Level 2.7 Magnesium Level 1.8 Total Bilirubin 3.2 H Direct Bilirubin 2.50 H Indirect Bilirubin 0.7 Aspartate Amino Transf (AST/SGOT) 97 H Alanine Aminotransferase (ALT/SGPT) 66 Alkaline Phosphatase 112 Total Protein 7.0 Albumin 3.5 Globulin 3.50 H Albumin/Globulin Ratio 1.00 Medications Current Medications Lorazepam (Ativan) 0.5 mg Q6H PRN IV ANXIETY Last administered on 08/03/16 21: 06; Admin Dose 0.5 MG; Start 08/01/16 at 03:00 Ondansetron HCl (Zofran Inj) 4 mg Q6H PRN IV NAUSEA AND/OR VOMITING; Start at 03:00 Metoclopramide HCl (Reglan) 10 mg Q6H PRN IV NAUSEA AND/OR VOMITING; Start at 03:00 Acetaminophen (Tylenol Tab) 650 mg Q6H PRN PO PAIN LEVEL 1-3 OR FEVER; Start at 03:00 Acetaminophen (Tylenol Supp) 650 mg Q4H PRN CO PAIN LEVEL 1-3 OR FEVER; Start 08/01/16 at 06:30 Pantoprazole 40 mg 40 mg BID@06,18 IV Last administered on 08/05/16 05:15; Admin Dose 40 MG; Start 08/01/16 at 06:00 Propofol 100 ml @ 3.33 mls/hr Q12H IV Last administered on 08/02/16 09:30; Admin Dose 26.64 MLS/HR; Start 08/01/16 at 09:30 Phenylephrine HCl 40 mg/Dextrose 500 ml @ 0 mls/hr TITRATE IV Last administered on 08/02/16 04:58; Admin Dose 112.5 MLS/HR; Start 08/01/16 at 16:00 Norepinephrine/ Dextrose (Levophed/D5W) 500 ml @ 0 mls/hr TITRATE IV Last administered on 08/04/16 04:32; Admin Dose 0 MLS/HR; Start 08/01/16 at 16:00 Methylprednisolone Sodium Succinate 60 mg 60 mg Q6 IV Last administered on 05:15; Admin Dose 60 MG; Start 08/01/16 at 18:00 Vasopressin 60 unit/Dextrose 60 ml @ 1.2 mls/hr Q12H IV Last administered on 03:55; Admin Dose 2.4 MLS/HR; Start 08/01/16 at 17:30 Epinephrine/ Sodium Chloride (EPINEPHrine/NS) 250 ml @ 3.75 mls/hr TITRATE IV Last administered on 08/01/16 18:50; Admin Dose 3.75 MLS/HR; Start 08/01/16 at 19:30 Eye Lubricant (Artificial Tears Oph) 2 drop QID BOTH EYES Last administered on 08/04/16 20:55; Admin Dose 2 DROP; Start 08/02/16 at 09:00 Insulin Aspart (Novolog Insulin Pen) NOVOLOG *MODERATE* ALGORI... Q4 SC Last administered on 08/05/16 00:58; Admin Dose 2 UNIT; Start 08/02/16 at 09:00 Miscellaneous Information 1 ea NOTE XX ; Start 08/02/16 at 09:00 Glucose (Glutose) 15 gm Q15M PRN PO DECREASED GLUCOSE; Start 08/02/16 at 09:00 Glucose (Glutose) 22.5 gm Q15M PRN PO DECREASED GLUCOSE; Start 08/02/16 at 09:00 Dextrose (D50w Syringe) 25 ml Q15M PRN IV DECREASED GLUCOSE; Start 08/02/16 at 09:00 Dextrose (D50w Syringe) 50 ml Q15M PRN IV DECREASED GLUCOSE; Start 08/02/16 at 09:00 Glucagon (Glucagen) 1 mg Q15M PRN IM DECREASED GLUCOSE; Start 08/02/16 at 09:00 Glucose 15 gm 15 gm Q15M PRN BUCCAL DECREASED GLUCOSE; Start 08/02/16 at 09:00 Midazolam HCl 50 ml @ 1 mls/hr TITRATE IV Last administered on 08/03/16 04:30; Admin Dose 10 MLS/HR; Start 08/02/16 at 09:30 Fentanyl 100 ml @ 2.5 mls/hr TITRATE IV Last administered on 08/05/16 03:33; Admin Dose 10 MLS/HR; Start 08/02/16 at 09:30 Sodium Chloride (NS) 1,000 ml @ 50 mls/hr Q20H IV Last administered on 00:56; Admin Dose 50 MLS/HR; Start 08/03/16 at 08:00 Calcium Carbonate (Ca Carbonate) 1,250 mg Q6 NGT Last administered on 08/05/16 05:15; Admin Dose 1,250 MG; Start 08/03/16 at 12:00 Levothyroxine Sodium (Synthroid) 100 mcg DAILY@06 NGT Last administered on 05:15; Admin Dose 100 MCG; Start 08/04/16 at 06:00 Insulin Human NPH 12 unit 12 unit Q6 SC Last administered on 08/05/16 05:24; Admin Dose 12 UNIT; Start 08/03/16 at 12:00 Metronidazole 100 ml @ 100 mls/hr Q8 IVPB Last administered on 08/05/16 05:49 ; Admin Dose 100 MLS/HR; Start 08/03/16 at 10:00 Piperacillin Sod/ Tazobactam Sod (Zosyn 3.375gm/ 100 ml (Pmx)) 100 ml @ 200 mls /hr Q8 IVPB Last administered on 08/05/16 05:15; Admin Dose 200 MLS/HR; Start 08/03/16 at 14:00 Assessment/Plan Chief Complaint/Hosp Course 1. Nonoliguric acute kidney injury, with an unknown baseline creatinine. Etiology is secondary to acute tubular necrosis due to septic shock. The patient was initiated on urgent hemodialysis due to severe metabolic acidemia and solute clearance. The patient had hemodialysis yesterday and tolerated it well. No hd today. Anticipate daily dialysis for volume removal and solute clearance, as the patient tolerates. assess daily for hd needs. avoid nephrotoxins as hope for renal recovery. all meds dosed ok. 2. Mixed acid base disorder. The patient has anion gap metabolic acidosis and metabolic alkalosis. sp bicarb drip. Will continue to monitor serial ABGs. 3. Ventilator-dependent respiratory failure. Vent settings have been reviewed. ABG has been reviewed. Continue to monitor. Follow up vent settings. Continue to titrate down FIO2 if possible. 4. Volume overload secondary to acute congestive heart failure, diastolic and systolic heart failure. Plan is to minimize IV fluids if possible. Will continue ultrafiltration with dialysis as tolerated. 5. Shock. Etiology is felt to be multifactorial, cardiac and possible septic. The patient is currently being weaned off pressor support. Remains on broad- spectrum antibiotics. Would continue the current treatment plan, titrate off pressors if possible. Will decrease the rate of IV fluids as the patient is markedly volume overloaded. 6. Status post cardiopulmonary arrest. Etiology may be metabolic, possibly due to severe acidemia. The patient is status post return of spontaneous circulation. Continue to monitor. Follow up with ongoing cardiology workup. 7. Acute encephalopathy. Etiology is toxic metabolic. Continue to monitor. 8. Hypothyroidism. Continue Synthroid. 9. Anemia. Continue to monitor hemoglobin and hematocrit levels. 10. Mineral bone disorder. The patient remains hypophosphatemic and hypocalcemic, in part due to ongoing sepsis. Plan is to continue to replete with potassium phosphate, will continue high calcium bath with dialysis. 11. Hypomagnesemia. Repleted with magnesium sulfate. 12. Hyponatremia. Resolved. 13. Lactic acidosis secondary to shock. Continue to treat underlying shock, as stated above. Please note, I spent over 35 minutes of critical care time with this patient. Problems: OSIEL OMALLEY MD Aug 05, 2016 06:27
[2016-08-05] MEDS: ARTIFICIAL TEARS 15 ML OPH BOTH EYES SCH ×4 (08:57→21:03)
[2016-08-05 09:03] LABS: AADO2 Arterial 323.7 mmHg (7.0-24.0); Allen Test ACCEPTAB; Arterial Base Excess -0.7 mmol/L (-3.0-3); Arterial COHb 0.1 % (0.0-3.0); Arterial Fraction of Oxyhgb 91.5 % (93.0-99.0); Arterial MetHb 0.3 % (0.0-1.5); Arterial Total Hemglobin 8.8 g/dl (12.0-18.0); MODE VENT-AC
[2016-08-05] MEDS: PROPOFOL 100 ML IV SCH ×2 (09:30→20:47)
--- NOTE | 2016-08-05 10:31 | RADRPT ---
PROCEDURE: XR Chest. CLINICAL INDICATION: Congestive heart failure TECHNIQUE: Single frontal chest x-ray. COMPARISON: 06:21 a.m. FINDINGS: Endotracheal tube, nasogastric tube are in place unchanged. . Bilateral perihilar alveolar edema or infiltrates are unchanged.. There is stable mild cardiomegaly. Left lower lobe retrocardiac conso lidation is unchanged.. The osseous structures are intact. IMPRESSION: Tubes and lines unchanged. Bilateral perihilar alveolar edema or infiltrates and left basilar consolidation is stable.. RPTAT: QQ .Juanito Evans MD, MD Date Time Electronically viewed and signed by .Juanito Evans MD, MD on 08/05/2016 10:30 .L/
--- NOTE | 2016-08-05 10:32 | RADRPT ---
PROCEDURE: XR Chest. CLINICAL INDICATION: Congestive heart failure. Follow-up. TECHNIQUE: Single frontal chest x-ray. COMPARISON: 08/04/2016 FINDINGS: Endotracheal tube, nasogastric tube in place unchanged. Bilateral perihilar alveolar edema or infil trates with left basilar consolidation is unchanged. . Low lung volumes are present.. Cardiomegaly with calcific atherosclerosis of the aorta is seen.. The osseous structures are intact. IMPRESSION: Bilateral perihilar edema or infiltrates with left basilar consolidation are unchanged. Tubes and lines unchanged.. RPTAT: QQ .Juanito Evans MD, MD Date Time Electronically viewed and signed by .Juanito Evans MD, MD on 08/05/2016 10:31 .L/
--- NOTE | 2016-08-05 10:38 | PN ---
Date/Time of Note Date/Time of Note DATE: 08/05/16 TIME: 10:35 Assessment/Plan VTE Prophylaxis VTE Prophylaxis Intervention: SCD's VTE Contraindication Reason: thrombocytopenia Lines/Catheters IV Catheter Type (from Nrs): JOSE RAUL CATH Urinary Cath still in place: Yes Reason Cath still needed: other (indicate) Assessment/Plan Assessment/Plan This is an unfortunate 60-year-old male who presented to the emergency room with diarrhea and vomiting and was found to be in severe renal failure but suffered a cardiac arrest while in the emergency room. He is now managed as follows: 1. Status post cardiac arrest with ROSC 2/2 severe meatbolic acidosis from #4 2. Acute encephalopathy secondary to #1 [toxic metabolic] 3. Ventilator dependent respiratory failure with probable ARDS and pulmonary edema per pulmonary 4. Severe acute renal failure now on hemodialysis with unknown baseline thought to be secondary to severe ATN 5. Severe Sepsis with septic shock and lactic acidosis on pressors 6. Newly diagnosed Hypothyroidism 7. Chronic Alcohol use and abuse 8. Anemia likely secondary to chronic disease but a component of malnutrition from chronic alcohol abuse 9. Enterocolitis 10. Thrombocytopenia which could be as a result of liver disease, will have to rule out heparin-induced thrombocytopenia 11. Severe fatty liver with Transaminitis and mild hyperbilirubinemia indicating a measure of chronic liver disease vs shock liver 12. Bilateral pneumonia likely aspiration 13. Coagulase neg Staph UTI 14. Hypophosphatemia 15. Steroid-induced hyperglycemia vs type 2 DM requiring low-dose Lantus and NPH 16. Positive stool occult blood on twice daily PPI PLAN: * Continue broad-spectrum antibiotics with IV vancomycin and Zosyn /. Infectious disease consult * Continue to try to wean pressors * Continue hemodialysis per nephrology * Continue vent management and weaning * Endocrinology managing sugars and thyroid profile * Continue serial electrolyte monitoring and replenishment * Continue supportive ICU care Prophylaxis : SCDS / PPI Prognosis : Guarded Subjective 24 Hr Interval Summary Free Text/Dictation Patient seen and examined. Nursing reports no acute overnight events. Intubated and sedated for comfort, still on pressor support with high vent requirements Subjective hx not possible: pt critical status Exam/Review of Systems Vital Signs Vitals Vital Signs Date Time Temp Pulse Resp B/P Pulse Ox O2 Delivery O2 Flow Rate FiO2 08/05/16 08:08 83 08/05/16 06:45 30 120/84 91 08/05/16 06:15 Mechanical Ventilator 08/05/16 05:16 60 08/05/16 04:00 98.2 Intake and Output 08/04/16 08/04/16 08/05/16 15:00 23:00 07:00 Intake Total 710 ml 462.5 ml 975.00 ml Output Total 3500 ml Balance -2790 ml 462.5 ml 975.00 ml Exam General: The patient is morbidly obese, intubated HEENT: Atraumatic, normocephalic. The pupils are equal and sluggish. / Conjunctival edema Neck: No JVP or lymphadenopathy Chest: Normal Lungs: Decreased breath sounds bilateral lower lung field Heart: Normal S1-S2, Abdomen: Soft , nontender, nondistended , bowel sounds are present. Extremities: Normal to inspection, + 1 edema no cyanosis Neurologic: Sedated / requiring restraints Results Result Diagram: 08/05/16 0400 08/05/16 0400 Results 24 hrs Laboratory Tests Test 08/04/16 12:40 08/04/16 18:27 08/04/16 20:54 08/05/16 00:55 Bedside Glucose 149 145 145 154 Test 08/05/16 04:00 08/05/16 05:19 08/05/16 07:00 08/05/16 08:46 White Blood Count 13.9 #H Red Blood Count 2.33 L Hemoglobin 7.9 L Hematocrit 21.9 L Mean Corpuscular Volume 94.0 Mean Corpuscular Hemoglobin 33.9 H Mean Corpuscular Hemoglobin Concent 36.1 Red Cell Distribution Width 15.7 H Platelet Count 57 #L Mean Platelet Volume 11.8 H Neutrophils % 78.7 H Lymphocytes % 6.8 L Monocytes % 4.9 Eosinophils % 0.0 Basophils % 0.1 Nucleated Red Blood Cells % 1.6 H Neutrophils # 11.0 H Lymphocytes # 1.0 Monocytes # 0.7 Eosinophils # 0.0 Basophils # 0.0 Nucleated Red Blood Cells # 0.2 H Sodium Level 142 Potassium Level 4.1 Chloride Level 102 Carbon Dioxide Level 21 Anion Gap 23 H Blood Urea Nitrogen 37 H Creatinine 3.18 H Glucose Level 128 Calcium Level 7.9 L Ionized Calcium (Measured) 1.0 L Phosphorus Level 2.7 Magnesium Level 1.8 Total Bilirubin 3.2 H Direct Bilirubin 2.50 H Indirect Bilirubin 0.7 Aspartate Amino Transf (AST/SGOT) 97 H Alanine Aminotransferase (ALT/SGPT) 66 Alkaline Phosphatase 112 Total Protein 7.0 Albumin 3.5 Globulin 3.50 H Albumin/Globulin Ratio 1.00 Bedside Glucose 140 149 Blood Gas Specimen Source Blood arterial Arterial Blood Date Drawn 08/05/2016 8:50:08 AM Arterial Blood pH (Temp corrected) 7.449 Arterial Blood pCO2 (Temp correct) 34.0 L Arterial Blood pO2 (Temp corrected) 66.7 L Arterial Blood HCO3 23.0 Arterial Blood Base Excess -0.7 Arterial Blood Oxygen Saturation 91.9 L Stanley Test ACCEPTAB Arterial Blood Gas Puncture Site Right Radial Arterial Blood Carboxyhemoglobin 0.1 Arterial Blood Methemoglobin 0.3 Blood Gas A-a O2 Differential 323.7 H Oxyhemoglobin Percent 91.5 L Total Hemoglobin 8.8 L Blood Gas Temperature 37.0 Blood Gas Respiration Rate 30.0 Blood Gas Actual Respiration Rate 30 Blood Gas Modality VENT-AC FiO2 60.0 Blood Gas Inspiratory Time 0.8 Blood Gas Tidal Volume 570.0 Blood Gas Low PEEP Setting 8.0 Blood Gas Inspiratory Pressure 31.0 Blood Gas Notified Whom JMD Blood Gas Notified Time 08/05/2016 9:02:51 AM Medications Medications Current Medications Lorazepam (Ativan) 0.5 mg Q6H PRN IV ANXIETY Last administered on 08/03/16 21: 06; Admin Dose 0.5 MG; Start 08/01/16 at 03:00 Ondansetron HCl (Zofran Inj) 4 mg Q6H PRN IV NAUSEA AND/OR VOMITING; Start at 03:00 Metoclopramide HCl (Reglan) 10 mg Q6H PRN IV NAUSEA AND/OR VOMITING; Start at 03:00 Acetaminophen (Tylenol Tab) 650 mg Q6H PRN PO PAIN LEVEL 1-3 OR FEVER; Start at 03:00 Acetaminophen (Tylenol Supp) 650 mg Q4H PRN SD PAIN LEVEL 1-3 OR FEVER; Start 08/01/16 at 06:30 Pantoprazole 40 mg 40 mg BID@06,18 IV Last administered on 08/05/16 05:15; Admin Dose 40 MG; Start 08/01/16 at 06:00 Propofol 100 ml @ 3.33 mls/hr Q12H IV Last administered on 08/02/16 09:30; Admin Dose 26.64 MLS/HR; Start 08/01/16 at 09:30 Phenylephrine HCl 40 mg/Dextrose 500 ml @ 0 mls/hr TITRATE IV Last administered on 08/02/16 04:58; Admin Dose 112.5 MLS/HR; Start 08/01/16 at 16:00 Norepinephrine/ Dextrose (Levophed/D5W) 500 ml @ 0 mls/hr TITRATE IV Last administered on 08/04/16 04:32; Admin Dose 0 MLS/HR; Start 08/01/16 at 16:00 Methylprednisolone Sodium Succinate 60 mg 60 mg Q6 IV Last administered on 05:15; Admin Dose 60 MG; Start 08/01/16 at 18:00 Vasopressin 60 unit/Dextrose 60 ml @ 1.2 mls/hr Q12H IV Last administered on 03:55; Admin Dose 2.4 MLS/HR; Start 08/01/16 at 17:30 Epinephrine/ Sodium Chloride (EPINEPHrine/NS) 250 ml @ 3.75 mls/hr TITRATE IV Last administered on 08/01/16 18:50; Admin Dose 3.75 MLS/HR; Start 08/01/16 at 19:30 Eye Lubricant (Artificial Tears Oph) 2 drop QID BOTH EYES Last administered on 08/05/16 08:57; Admin Dose 2 DROP; Start 08/02/16 at 09:00 Insulin Aspart (Novolog Insulin Pen) NOVOLOG *MODERATE* ALGORI... Q4 SC Last administered on 08/05/16 09:00; Admin Dose 2 UNIT; Start 08/02/16 at 09:00 Miscellaneous Information 1 ea NOTE XX ; Start 08/02/16 at 09:00 Glucose (Glutose) 15 gm Q15M PRN PO DECREASED GLUCOSE; Start 08/02/16 at 09:00 Glucose (Glutose) 22.5 gm Q15M PRN PO DECREASED GLUCOSE; Start 08/02/16 at 09:00 Dextrose (D50w Syringe) 25 ml Q15M PRN IV DECREASED GLUCOSE; Start 08/02/16 at 09:00 Dextrose (D50w Syringe) 50 ml Q15M PRN IV DECREASED GLUCOSE; Start 08/02/16 at 09:00 Glucagon (Glucagen) 1 mg Q15M PRN IM DECREASED GLUCOSE; Start 08/02/16 at 09:00 Glucose 15 gm 15 gm Q15M PRN BUCCAL DECREASED GLUCOSE; Start 08/02/16 at 09:00 Midazolam HCl 50 ml @ 1 mls/hr TITRATE IV Last administered on 08/03/16 04:30; Admin Dose 10 MLS/HR; Start 08/02/16 at 09:30 Fentanyl (Sublimaze) 100 ml @ 2.5 mls/hr TITRATE IV Last administered on 03:33; Admin Dose 10 MLS/HR; Start 08/02/16 at 09:30 Calcium Carbonate (Ca Carbonate) 1,250 mg Q6 NGT Last administered on 08/05/16 05:15; Admin Dose 1,250 MG; Start 08/03/16 at 12:00 Levothyroxine Sodium (Synthroid) 100 mcg DAILY@06 NGT Last administered on 05:15; Admin Dose 100 MCG; Start 08/04/16 at 06:00 Insulin Human NPH 12 unit 12 unit Q6 SC Last administered on 08/05/16 05:24; Admin Dose 12 UNIT; Start 08/03/16 at 12:00 Metronidazole 100 ml @ 100 mls/hr Q8 IVPB Last administered on 08/05/16 05:49 ; Admin Dose 100 MLS/HR; Start 08/03/16 at 10:00 Piperacillin Sod/ Tazobactam Sod (Zosyn 3.375gm/ 100 ml (Pmx)) 100 ml @ 200 mls /hr Q8 IVPB Last administered on 08/05/16 05:15; Admin Dose 200 MLS/HR; Start 08/03/16 at 14:00 KOLBY ALBERT Aug 05, 2016 10:38
--- NOTE | 2016-08-05 10:49 | CONS ---
Date/Time of Note Date/Time of Note DATE: 08/05/16 TIME: 10:46 Assessment/Plan Assessment/Plan Additional Assessment/Plan Chest x-ray was reviewed from today which is again showing bilateral pneumonia without any interval improvement. Endotracheal tube is at an adequate level. Current ventilator setting; AC of 30, tidal volume 570, PEEP of 8, 60% FiO2. Patient currently on Levophed at 6 mics per minute. ABG was reviewed. Assessment recommendations; next 1. Patient admitted with respiratory failure due to bilateral pneumonia status post CPR's. 2. Persistent hypotension, although patient on a tapering dose of Levophed. 3. Renal failure, now on hemodialysis. 4. Thrombocytopenia. 5. Anemia. 6. History of diabetes and hypo-thyroidism. 7. Sepsis with hypotension. 8. Underlying morbid obesity. Continue current treatment. Increase PEEP to 10. Decrease Solu-Medrol to 40 mg IV every 8 hours. Prognosis is guarded. 35 minutes of critical care time was spent evaluating the patient. Consultation Date/Type/Reason Admit Date/Time August 01, 2016 at 00:50 Initial Consult Date 08/01/16 Type of Consultation: Pulmonary/critical care Referring Provider: NIKOLE KWON MD, [facility] 24 HR Interval Summary Free Text/Dictation Patient condition remains critical. Still requiring full ventilator support as well as pressor support for blood pressure maintenance. General exam; elderly male, morbidly obese, orally intubated, sedated. Currently in no distress. Exam/Review of Systems Vital Signs Vitals Vital Signs Date Time Temp Pulse Resp B/P Pulse Ox O2 Delivery O2 Flow Rate FiO2 08/05/16 08:08 83 08/05/16 06:45 30 120/84 91 08/05/16 06:15 Mechanical Ventilator 08/05/16 05:16 60 08/05/16 04:00 98.2 Intake and Output 08/04/16 08/04/16 08/05/16 14:59 22:59 06:59 Intake Total 778.75 ml 405.0 ml 1042.50 ml Output Total 3510 ml Balance -2731.25 ml 405.0 ml 1042.50 ml Exam HEENT exam; supple neck, JVD difficult to see because of short neck. There is bilateral subconjunctival edema. Pupils are small. Patient is orally intubated. No neck masses, no thyromegaly. No lymphadenopathy. Dentition is fair. Chest examined; diminished breath sounds bilaterally. No additional. S1-S2 audible, no murmurs. Regular rhythm. Abdomen examination; soft, protuberant. No organomegaly. Bowel sounds audible. Extremity exam; no peripheral edema. Pulses 1+ bilaterally. ACCOUNT MANAGEMENT ASSISTANT examination; patient is sedated. Results Result Diagram: 08/05/16 0400 08/05/16 0400 Results 24 hrs Laboratory Tests Test 08/04/16 12:40 08/04/16 18:27 08/04/16 20:54 08/05/16 00:55 Bedside Glucose 149 145 145 154 Test 08/05/16 04:00 08/05/16 05:19 08/05/16 07:00 08/05/16 08:46 White Blood Count 13.9 #H Red Blood Count 2.33 L Hemoglobin 7.9 L Hematocrit 21.9 L Mean Corpuscular Volume 94.0 Mean Corpuscular Hemoglobin 33.9 H Mean Corpuscular Hemoglobin Concent 36.1 Red Cell Distribution Width 15.7 H Platelet Count 57 #L Mean Platelet Volume 11.8 H Neutrophils % 78.7 H Lymphocytes % 6.8 L Monocytes % 4.9 Eosinophils % 0.0 Basophils % 0.1 Nucleated Red Blood Cells % 1.6 H Neutrophils # 11.0 H Lymphocytes # 1.0 Monocytes # 0.7 Eosinophils # 0.0 Basophils # 0.0 Nucleated Red Blood Cells # 0.2 H Sodium Level 142 Potassium Level 4.1 Chloride Level 102 Carbon Dioxide Level 21 Anion Gap 23 H Blood Urea Nitrogen 37 H Creatinine 3.18 H Glucose Level 128 Calcium Level 7.9 L Ionized Calcium (Measured) 1.0 L Phosphorus Level 2.7 Magnesium Level 1.8 Total Bilirubin 3.2 H Direct Bilirubin 2.50 H Indirect Bilirubin 0.7 Aspartate Amino Transf (AST/SGOT) 97 H Alanine Aminotransferase (ALT/SGPT) 66 Alkaline Phosphatase 112 Total Protein 7.0 Albumin 3.5 Globulin 3.50 H Albumin/Globulin Ratio 1.00 Bedside Glucose 140 149 Blood Gas Specimen Source Blood arterial Arterial Blood Date Drawn 08/05/2016 8:50:08 AM Arterial Blood pH (Temp corrected) 7.449 Arterial Blood pCO2 (Temp correct) 34.0 L Arterial Blood pO2 (Temp corrected) 66.7 L Arterial Blood HCO3 23.0 Arterial Blood Base Excess -0.7 Arterial Blood Oxygen Saturation 91.9 L Stanley Test ACCEPTAB Arterial Blood Gas Puncture Site Right Radial Arterial Blood Carboxyhemoglobin 0.1 Arterial Blood Methemoglobin 0.3 Blood Gas A-a O2 Differential 323.7 H Oxyhemoglobin Percent 91.5 L Total Hemoglobin 8.8 L Blood Gas Temperature 37.0 Blood Gas Respiration Rate 30.0 Blood Gas Actual Respiration Rate 30 Blood Gas Modality VENT-AC FiO2 60.0 Blood Gas Inspiratory Time 0.8 Blood Gas Tidal Volume 570.0 Blood Gas Low PEEP Setting 8.0 Blood Gas Inspiratory Pressure 31.0 Blood Gas Notified Whom RAHUL Blood Gas Notified Time 08/05/2016 9:02:51 AM Medications Medications Current Medications Lorazepam (Ativan) 0.5 mg Q6H PRN IV ANXIETY Last administered on 08/03/16 21: 06; Admin Dose 0.5 MG; Start 08/01/16 at 03:00 Ondansetron HCl (Zofran Inj) 4 mg Q6H PRN IV NAUSEA AND/OR VOMITING; Start at 03:00 Metoclopramide HCl (Reglan) 10 mg Q6H PRN IV NAUSEA AND/OR VOMITING; Start at 03:00 Acetaminophen (Tylenol Tab) 650 mg Q6H PRN PO PAIN LEVEL 1-3 OR FEVER; Start at 03:00 Acetaminophen (Tylenol Supp) 650 mg Q4H PRN [place] PAIN LEVEL 1-3 OR FEVER; Start 08/01/16 at 06:30 Pantoprazole 40 mg 40 mg BID@06,18 IV Last administered on 08/05/16 05:15; Admin Dose 40 MG; Start 08/01/16 at 06:00 Propofol 100 ml @ 3.33 mls/hr Q12H IV Last administered on 08/02/16 09:30; Admin Dose 26.64 MLS/HR; Start 08/01/16 at 09:30 Phenylephrine HCl 40 mg/Dextrose 500 ml @ 0 mls/hr TITRATE IV Last administered on 08/02/16 04:58; Admin Dose 112.5 MLS/HR; Start 08/01/16 at 16:00 Norepinephrine 16 mg/Dextrose 500 ml @ 0 mls/hr TITRATE IV Last administered on 08/04/16 04:32; Admin Dose 0 MLS/HR; Start 08/01/16 at 16:00 Vasopressin 60 unit/Dextrose 60 ml @ 1.2 mls/hr Q12H IV Last administered on 03:55; Admin Dose 2.4 MLS/HR; Start 08/01/16 at 17:30 Epinephrine/ Sodium Chloride (EPINEPHrine/NS) 250 ml @ 3.75 mls/hr TITRATE IV Last administered on 08/01/16 18:50; Admin Dose 3.75 MLS/HR; Start 08/01/16 at 19:30 Eye Lubricant (Artificial Tears Oph) 2 drop QID BOTH EYES Last administered on 08/05/16 08:57; Admin Dose 2 DROP; Start 08/02/16 at 09:00 Insulin Aspart (Novolog Insulin Pen) NOVOLOG *MODERATE* ALGORI... Q4 SC Last administered on 08/05/16 09:00; Admin Dose 2 UNIT; Start 08/02/16 at 09:00 Miscellaneous Information 1 ea NOTE XX ; Start 08/02/16 at 09:00 Glucose (Glutose) 15 gm Q15M PRN PO DECREASED GLUCOSE; Start 08/02/16 at 09:00 Glucose (Glutose) 22.5 gm Q15M PRN PO DECREASED GLUCOSE; Start 08/02/16 at 09:00 Dextrose (D50w Syringe) 25 ml Q15M PRN IV DECREASED GLUCOSE; Start 08/02/16 at 09:00 Dextrose (D50w Syringe) 50 ml Q15M PRN IV DECREASED GLUCOSE; Start 08/02/16 at 09:00 Glucagon (Glucagen) 1 mg Q15M PRN IM DECREASED GLUCOSE; Start 08/02/16 at 09:00 Glucose 15 gm 15 gm Q15M PRN BUCCAL DECREASED GLUCOSE; Start 08/02/16 at 09:00 Midazolam HCl 50 ml @ 1 mls/hr TITRATE IV Last administered on 08/03/16 04:30; Admin Dose 10 MLS/HR; Start 08/02/16 at 09:30 Fentanyl (Sublimaze) 100 ml @ 2.5 mls/hr TITRATE IV Last administered on 03:33; Admin Dose 10 MLS/HR; Start 08/02/16 at 09:30 Calcium Carbonate (Ca Carbonate) 1,250 mg Q6 NGT Last administered on 08/05/16 05:15; Admin Dose 1,250 MG; Start 08/03/16 at 12:00 Levothyroxine Sodium (Synthroid) 100 mcg DAILY@06 NGT Last administered on 05:15; Admin Dose 100 MCG; Start 08/04/16 at 06:00 Insulin Human NPH 12 unit 12 unit Q6 SC Last administered on 08/05/16 05:24; Admin Dose 12 UNIT; Start 08/03/16 at 12:00 Metronidazole 100 ml @ 100 mls/hr Q8 IVPB Last administered on 08/05/16 05:49 ; Admin Dose 100 MLS/HR; Start 08/03/16 at 10:00 Piperacillin Sod/ Tazobactam Sod (Zosyn 3.375gm/ 100 ml (Pmx)) 100 ml @ 200 mls /hr Q8 IVPB Last administered on 08/05/16 05:15; Admin Dose 200 MLS/HR; Start 08/03/16 at 14:00 MIGUEL CHINCHILLA Aug 05, 2016 10:49
--- NOTE | 2016-08-05 11:15 | CONS ---
Date/Time of Note Date/Time of Note DATE: 08/05/16 TIME: 11:14 Assessment/Plan Assessment/Plan Chief Complaint/Hosp Course PEA cardiac arrest: secondary to severe metabolic acidosis. No VT/VF or EKG changes to suggest primary cardiac etiology. Trops ok, EF preserved. Acute respiratory failure: intubated during code. ?ARDS as not much improvement after HD. Now slowly improving Severe metabolic acidosis: likely was the culprit for the arrest. HD started Shock: ?septic.Still on low dose levophed Acute renal failure: unclear etiology now on HD, making some urine Hypoglycemia Hypothyroidism Diarrhea/n/v/colitis -wean off levophed, goal SBP >100 or MAP >65 -vent management per pulm -HD per nephro Problems: Consultation Date/Type/Reason Admit Date/Time August 01, 2016 at 00:50 Initial Consult Date 08/01/16 Type of Consultation: Cardiology Referring Provider: NIKOLE KWON MD, [facility] 24 HR Interval Summary Free Text/Dictation Levophed is at 6mcg. FiO2 at 60%, PEEP 10. Still requiring HD. Exam/Review of Systems Vital Signs Vitals Vital Signs Date Time Temp Pulse Resp B/P Pulse Ox O2 Delivery O2 Flow Rate FiO2 08/05/16 08:08 83 08/05/16 06:45 30 120/84 91 08/05/16 06:15 Mechanical Ventilator 08/05/16 05:16 60 08/05/16 04:00 98.2 Intake and Output 08/04/16 08/04/16 08/05/16 15:00 23:00 07:00 Intake Total 710 ml 462.5 ml 975.00 ml Output Total 3500 ml Balance -2790 ml 462.5 ml 975.00 ml Exam Constitutional: No alert, No oriented Head: atraumatic, normocephalic ENMT: intubated Neck: No jvd (difficult to examine ) Respiratory: diminished breath sounds, No clear to auscultation Cardiovascular: regular rate and rhythm, No edema, No systolic murmur Gastrointestinal: non-tender, soft Neurological: No nl mental status Results Result Diagram: 08/05/16 0400 08/05/16 0400 Results 24 hrs Laboratory Tests Test 08/04/16 12:40 08/04/16 18:27 08/04/16 20:54 08/05/16 00:55 Bedside Glucose 149 145 145 154 Test 08/05/16 04:00 08/05/16 05:19 08/05/16 07:00 08/05/16 08:46 White Blood Count 13.9 #H Red Blood Count 2.33 L Hemoglobin 7.9 L Hematocrit 21.9 L Mean Corpuscular Volume 94.0 Mean Corpuscular Hemoglobin 33.9 H Mean Corpuscular Hemoglobin Concent 36.1 Red Cell Distribution Width 15.7 H Platelet Count 57 #L Mean Platelet Volume 11.8 H Neutrophils % 78.7 H Lymphocytes % 6.8 L Monocytes % 4.9 Eosinophils % 0.0 Basophils % 0.1 Nucleated Red Blood Cells % 1.6 H Neutrophils # 11.0 H Lymphocytes # 1.0 Monocytes # 0.7 Eosinophils # 0.0 Basophils # 0.0 Nucleated Red Blood Cells # 0.2 H Sodium Level 142 Potassium Level 4.1 Chloride Level 102 Carbon Dioxide Level 21 Anion Gap 23 H Blood Urea Nitrogen 37 H Creatinine 3.18 H Glucose Level 128 Calcium Level 7.9 L Ionized Calcium (Measured) 1.0 L Phosphorus Level 2.7 Magnesium Level 1.8 Total Bilirubin 3.2 H Direct Bilirubin 2.50 H Indirect Bilirubin 0.7 Aspartate Amino Transf (AST/SGOT) 97 H Alanine Aminotransferase (ALT/SGPT) 66 Alkaline Phosphatase 112 Total Protein 7.0 Albumin 3.5 Globulin 3.50 H Albumin/Globulin Ratio 1.00 Bedside Glucose 140 149 Blood Gas Specimen Source Blood arterial Arterial Blood Date Drawn 08/05/2016 8:50:08 AM Arterial Blood pH (Temp corrected) 7.449 Arterial Blood pCO2 (Temp correct) 34.0 L Arterial Blood pO2 (Temp corrected) 66.7 L Arterial Blood HCO3 23.0 Arterial Blood Base Excess -0.7 Arterial Blood Oxygen Saturation 91.9 L Stanley Test ACCEPTAB Arterial Blood Gas Puncture Site Right Radial Arterial Blood Carboxyhemoglobin 0.1 Arterial Blood Methemoglobin 0.3 Blood Gas A-a O2 Differential 323.7 H Oxyhemoglobin Percent 91.5 L Total Hemoglobin 8.8 L Blood Gas Temperature 37.0 Blood Gas Respiration Rate 30.0 Blood Gas Actual Respiration Rate 30 Blood Gas Modality VENT-AC FiO2 60.0 Blood Gas Inspiratory Time 0.8 Blood Gas Tidal Volume 570.0 Blood Gas Low PEEP Setting 8.0 Blood Gas Inspiratory Pressure 31.0 Blood Gas Notified Whom RAHUL Blood Gas Notified Time 08/05/2016 9:02:51 AM Medications Medications Current Medications Lorazepam (Ativan) 0.5 mg Q6H PRN IV ANXIETY Last administered on 08/03/16 21: 06; Admin Dose 0.5 MG; Start 08/01/16 at 03:00 Ondansetron HCl (Zofran Inj) 4 mg Q6H PRN IV NAUSEA AND/OR VOMITING; Start at 03:00 Metoclopramide HCl (Reglan) 10 mg Q6H PRN IV NAUSEA AND/OR VOMITING; Start at 03:00 Acetaminophen (Tylenol Tab) 650 mg Q6H PRN PO PAIN LEVEL 1-3 OR FEVER; Start at 03:00 Acetaminophen (Tylenol Supp) 650 mg Q4H PRN [place] PAIN LEVEL 1-3 OR FEVER; Start 08/01/16 at 06:30 Pantoprazole 40 mg 40 mg BID@06,18 IV Last administered on 08/05/16 05:15; Admin Dose 40 MG; Start 08/01/16 at 06:00 Propofol 100 ml @ 3.33 mls/hr Q12H IV Last administered on 08/02/16 09:30; Admin Dose 26.64 MLS/HR; Start 08/01/16 at 09:30 Phenylephrine HCl 40 mg/Dextrose 500 ml @ 0 mls/hr TITRATE IV Last administered on 08/02/16 04:58; Admin Dose 112.5 MLS/HR; Start 08/01/16 at 16:00 Norepinephrine 16 mg/Dextrose 500 ml @ 0 mls/hr TITRATE IV Last administered on 08/04/16 04:32; Admin Dose 0 MLS/HR; Start 08/01/16 at 16:00 Vasopressin 60 unit/Dextrose 60 ml @ 1.2 mls/hr Q12H IV Last administered on 03:55; Admin Dose 2.4 MLS/HR; Start 08/01/16 at 17:30 Epinephrine/ Sodium Chloride (EPINEPHrine/NS) 250 ml @ 3.75 mls/hr TITRATE IV Last administered on 08/01/16 18:50; Admin Dose 3.75 MLS/HR; Start 08/01/16 at 19:30 Eye Lubricant (Artificial Tears Oph) 2 drop QID BOTH EYES Last administered on 08/05/16 08:57; Admin Dose 2 DROP; Start 08/02/16 at 09:00 Insulin Aspart (Novolog Insulin Pen) NOVOLOG *MODERATE* ALGORI... Q4 SC Last administered on 08/05/16 09:00; Admin Dose 2 UNIT; Start 08/02/16 at 09:00 Miscellaneous Information 1 ea NOTE XX ; Start 08/02/16 at 09:00 Glucose (Glutose) 15 gm Q15M PRN PO DECREASED GLUCOSE; Start 08/02/16 at 09:00 Glucose (Glutose) 22.5 gm Q15M PRN PO DECREASED GLUCOSE; Start 08/02/16 at 09:00 Dextrose (D50w Syringe) 25 ml Q15M PRN IV DECREASED GLUCOSE; Start 08/02/16 at 09:00 Dextrose (D50w Syringe) 50 ml Q15M PRN IV DECREASED GLUCOSE; Start 08/02/16 at 09:00 Glucagon (Glucagen) 1 mg Q15M PRN IM DECREASED GLUCOSE; Start 08/02/16 at 09:00 Glucose 15 gm 15 gm Q15M PRN BUCCAL DECREASED GLUCOSE; Start 08/02/16 at 09:00 Midazolam HCl 50 ml @ 1 mls/hr TITRATE IV Last administered on 08/03/16 04:30; Admin Dose 10 MLS/HR; Start 08/02/16 at 09:30 Fentanyl (Sublimaze) 100 ml @ 2.5 mls/hr TITRATE IV Last administered on 03:33; Admin Dose 10 MLS/HR; Start 08/02/16 at 09:30 Calcium Carbonate (Ca Carbonate) 1,250 mg Q6 NGT Last administered on 08/05/16 05:15; Admin Dose 1,250 MG; Start 08/03/16 at 12:00 Levothyroxine Sodium (Synthroid) 100 mcg DAILY@06 NGT Last administered on 05:15; Admin Dose 100 MCG; Start 08/04/16 at 06:00 Insulin Human NPH 12 unit 12 unit Q6 SC Last administered on 08/05/16 05:24; Admin Dose 12 UNIT; Start 08/03/16 at 12:00 Metronidazole 100 ml @ 100 mls/hr Q8 IVPB Last administered on 08/05/16 05:49 ; Admin Dose 100 MLS/HR; Start 08/03/16 at 10:00 Piperacillin Sod/ Tazobactam Sod (Zosyn 3.375gm/ 100 ml (Pmx)) 100 ml @ 200 mls /hr Q8 IVPB Last administered on 08/05/16 05:15; Admin Dose 200 MLS/HR; Start 08/03/16 at 14:00 Methylprednisolone Sodium Succinate (Solu-Medrol) 40 mg Q12 IV ; Start 08/05/16 at 21:00 SEPIDEH HAN Aug 05, 2016 11:15
--- NOTE | 2016-08-05 12:48 | CONS ---
Date/Time of Note Date/Time of Note DATE: 08/05/16 TIME: 12:43 Assessment/Plan Assessment/Plan Problems: (1) Hypocalcemia Status: Acute Comment: Slow improvement of hypocalcemia. Will give 1gm IV calcium gluconate today (2) Hypothyroidism Status: Chronic Comment: Continues on replacement therapy. Qualifiers: Hypothyroidism type: acquired Qualified Code: E03.9 - Acquired hypothyroidism (3) Hyperglycemia Status: Acute Comment: Good glycemic control on current regimen. (4) High anion gap metabolic acidosis Status: Acute Comment: Ethylene glycol levels still pending Consultation Date/Type/Reason Admit Date/Time August 01, 2016 at 00:50 Initial Consult Date 08/01/16 Type of Consultation: Endocrine Reason for Consultation DM Type 2, Hypocalcemia, Hypothyroidism Referring Provider: NIKOLE KWON MD, [facility] 24 HR Interval Summary Subjective hx not possible: pt critical status Exam/Review of Systems Vital Signs Vitals Vital Signs Date Time Temp Pulse Resp B/P Pulse Ox O2 Delivery O2 Flow Rate FiO2 08/05/16 08:08 83 08/05/16 06:45 30 120/84 91 08/05/16 06:15 Mechanical Ventilator 08/05/16 05:16 60 08/05/16 04:00 98.2 Intake and Output 08/04/16 08/04/16 08/05/16 15:00 23:00 07:00 Intake Total 710 ml 462.5 ml 975.00 ml Output Total 3500 ml Balance -2790 ml 462.5 ml 975.00 ml Exam Sedated Constitutional: non-verbal ENMT: intubated Respiratory: clear to auscultation Cardiovascular: regular rate and rhythm Gastrointestinal: soft Extremities: edema Neurological: other Results POC glucose and labs reviewed Result Diagram: 08/05/16 0400 08/05/16 0400 Results 24 hrs Laboratory Tests Test 08/04/16 18:27 08/04/16 20:54 08/05/16 00:55 08/05/16 04:00 Bedside Glucose 145 145 154 White Blood Count 13.9 #H Red Blood Count 2.33 L Hemoglobin 7.9 L Hematocrit 21.9 L Mean Corpuscular Volume 94.0 Mean Corpuscular Hemoglobin 33.9 H Mean Corpuscular Hemoglobin Concent 36.1 Red Cell Distribution Width 15.7 H Platelet Count 57 #L Mean Platelet Volume 11.8 H Neutrophils % 78.7 H Lymphocytes % 6.8 L Monocytes % 4.9 Eosinophils % 0.0 Basophils % 0.1 Nucleated Red Blood Cells % 1.6 H Neutrophils # 11.0 H Lymphocytes # 1.0 Monocytes # 0.7 Eosinophils # 0.0 Basophils # 0.0 Nucleated Red Blood Cells # 0.2 H Sodium Level 142 Potassium Level 4.1 Chloride Level 102 Carbon Dioxide Level 21 Anion Gap 23 H Blood Urea Nitrogen 37 H Creatinine 3.18 H Glucose Level 128 Calcium Level 7.9 L Ionized Calcium (Measured) 1.0 L Phosphorus Level 2.7 Magnesium Level 1.8 Total Bilirubin 3.2 H Direct Bilirubin 2.50 H Indirect Bilirubin 0.7 Aspartate Amino Transf (AST/SGOT) 97 H Alanine Aminotransferase (ALT/SGPT) 66 Alkaline Phosphatase 112 Total Protein 7.0 Albumin 3.5 Globulin 3.50 H Albumin/Globulin Ratio 1.00 Test 08/05/16 05:19 08/05/16 07:00 08/05/16 08:46 08/05/16 12:05 Bedside Glucose 140 149 145 Blood Gas Specimen Source Blood arterial Arterial Blood Date Drawn 08/05/2016 8:50:08 AM Arterial Blood pH (Temp corrected) 7.449 Arterial Blood pCO2 (Temp correct) 34.0 L Arterial Blood pO2 (Temp corrected) 66.7 L Arterial Blood HCO3 23.0 Arterial Blood Base Excess -0.7 Arterial Blood Oxygen Saturation 91.9 L Stanley Test ACCEPTAB Arterial Blood Gas Puncture Site Right Radial Arterial Blood Carboxyhemoglobin 0.1 Arterial Blood Methemoglobin 0.3 Blood Gas A-a O2 Differential 323.7 H Oxyhemoglobin Percent 91.5 L Total Hemoglobin 8.8 L Blood Gas Temperature 37.0 Blood Gas Respiration Rate 30.0 Blood Gas Actual Respiration Rate 30 Blood Gas Modality VENT-AC FiO2 60.0 Blood Gas Inspiratory Time 0.8 Blood Gas Tidal Volume 570.0 Blood Gas Low PEEP Setting 8.0 Blood Gas Inspiratory Pressure 31.0 Blood Gas Notified Whom HOLLANDD Blood Gas Notified Time 08/05/2016 9:02:51 AM Medications Medications Current Medications Lorazepam (Ativan) 0.5 mg Q6H PRN IV ANXIETY Last administered on 08/03/16t 21: 06; Admin Dose 0.5 MG; Start 08/01/16 at 03:00 Ondansetron HCl (Zofran Inj) 4 mg Q6H PRN IV NAUSEA AND/OR VOMITING; Start at 03:00 Metoclopramide HCl (Reglan) 10 mg Q6H PRN IV NAUSEA AND/OR VOMITING; Start at 03:00 Acetaminophen (Tylenol Tab) 650 mg Q6H PRN PO PAIN LEVEL 1-3 OR FEVER; Start at 03:00 Acetaminophen (Tylenol Supp) 650 mg Q4H PRN [place] PAIN LEVEL 1-3 OR FEVER; Start 08/01/16 at 06:30 Pantoprazole 40 mg 40 mg BID@06,18 IV Last administered on 08/05/16 05:15; Admin Dose 40 MG; Start 08/01/16 at 06:00 Propofol 100 ml @ 3.33 mls/hr Q12H IV Last administered on 08/02/16 09:30; Admin Dose 26.64 MLS/HR; Start 08/01/16 at 09:30 Phenylephrine HCl 40 mg/Dextrose 500 ml @ 0 mls/hr TITRATE IV Last administered on 08/02/16 04:58; Admin Dose 112.5 MLS/HR; Start 08/01/16 at 16:00 Norepinephrine 16 mg/Dextrose 500 ml @ 0 mls/hr TITRATE IV Last administered on 08/04/16 04:32; Admin Dose 0 MLS/HR; Start 08/01/16 at 16:00 Vasopressin 60 unit/Dextrose 60 ml @ 1.2 mls/hr Q12H IV Last administered on 03:55; Admin Dose 2.4 MLS/HR; Start 08/01/16 at 17:30 Epinephrine/ Sodium Chloride (EPINEPHrine/NS) 250 ml @ 3.75 mls/hr TITRATE IV Last administered on 08/01/16 18:50; Admin Dose 3.75 MLS/HR; Start 08/01/16 at 19:30 Eye Lubricant (Artificial Tears Oph) 2 drop QID BOTH EYES Last administered on 08/05/16 08:57; Admin Dose 2 DROP; Start 08/02/16 at 09:00 Insulin Aspart (Novolog Insulin Pen) NOVOLOG *MODERATE* ALGORI... Q4 SC Last administered on 08/05/16 12:07; Admin Dose 2 UNIT; Start 08/02/16 at 09:00 Miscellaneous Information 1 ea NOTE XX ; Start 08/02/16 at 09:00 Glucose (Glutose) 15 gm Q15M PRN PO DECREASED GLUCOSE; Start 08/02/16 at 09:00 Glucose (Glutose) 22.5 gm Q15M PRN PO DECREASED GLUCOSE; Start 08/02/16 at 09:00 Dextrose (D50w Syringe) 25 ml Q15M PRN IV DECREASED GLUCOSE; Start 08/02/16 at 09:00 Dextrose (D50w Syringe) 50 ml Q15M PRN IV DECREASED GLUCOSE; Start 08/02/16 at 09:00 Glucagon (Glucagen) 1 mg Q15M PRN IM DECREASED GLUCOSE; Start 08/02/16 at 09:00 Glucose 15 gm 15 gm Q15M PRN BUCCAL DECREASED GLUCOSE; Start 08/02/16 at 09:00 Midazolam HCl 50 ml @ 1 mls/hr TITRATE IV Last administered on 08/03/16 04:30; Admin Dose 10 MLS/HR; Start 08/02/16 at 09:30 Fentanyl (Sublimaze) 100 ml @ 2.5 mls/hr TITRATE IV Last administered on 03:33; Admin Dose 10 MLS/HR; Start 08/02/16 at 09:30 Calcium Carbonate (Ca Carbonate) 1,250 mg Q6 NGT Last administered on 08/05/16 12:02; Admin Dose 1,250 MG; Start 08/03/16 at 12:00 Levothyroxine Sodium (Synthroid) 100 mcg DAILY@06 NGT Last administered on 05:15; Admin Dose 100 MCG; Start 08/04/16 at 06:00 Insulin Human NPH 12 unit 12 unit Q6 SC Last administered on 08/05/16 12:04; Admin Dose 12 UNIT; Start 08/03/16 at 12:00 Metronidazole 100 ml @ 100 mls/hr Q8 IVPB Last administered on 08/05/16 05:49 ; Admin Dose 100 MLS/HR; Start 08/03/16 at 10:00 Piperacillin Sod/ Tazobactam Sod (Zosyn 3.375gm/ 100 ml (Pmx)) 100 ml @ 200 mls /hr Q8 IVPB Last administered on 6/4/17at 05:15; Admin Dose 200 MLS/HR; Start 08/03/16 at 14:00 Methylprednisolone Sodium Succinate (Solu-Medrol) 40 mg Q12 IV ; Start 08/05/16 at 21:00 ALVAREZ VILLAFANA MD Aug 05, 2016 12:48
[2016-08-05] MEDS ORDERED: CALCIUM GLUCONATE 10% 1 GM in SOD CHLORIDE 0.9% 100 ML IVPB ONE (14:00)
[2016-08-05] MEDS: METHYLPREDNISOLONE 40 MG INJ IV SCH (21:03)
[2016-08-06] VITALS (97 sets, daily range): BP systolic 82–158; BP diastolic 56–108; PULSE 75–96; RESP 0–30
[2016-08-06] MEDS: NPH, HUMAN INSULIN ISOPHANE 3ML VIAL SC SCH ×4 (00:13→17:33)
[2016-08-06] MEDS: INSULIN ASPART [NOVOLOG] 3 ML PEN SC SCH ×6 (00:15→20:55)
[2016-08-06] MEDS: CA CARBONATE (250 MG/ML) 5ML CUP NGT SCH ×4 (00:15→17:31)
[2016-08-06 04:52] LABS: ADD SCAN DIFF NO
[2016-08-06 04:55] LABS: ABNORMAL IP MESSAGE 1; HEMATOCRIT 21.5 % (42.0-52.0); HEMOGLOBIN 7.8 g/dl (14.0-18.0); MEAN CORPUSCULAR HEMOGLOBIN 33.8 pg (29.0-33.0); MEAN CORPUSCULAR HGB CONC 36.3 g/dl (32.0-37.0); MEAN CORPUSCULAR VOLUME 93.1 fl (82.0-101.0); PLATELET COUNT 47 10^3/UL (140-415); RED BLOOD COUNT 2.31 10^6/ul (4.70-6.10); RED CELL DISTRIBUTION WIDTH 15.6 % (11.5-14.5); WHITE BLOOD COUNT 14.9 10^3/ul (4.8-10.8)
[2016-08-06 05:12] LABS: ALBUMIN 3.5 g/dl (3.3-4.9); ALBUMIN/GLOBULIN RATIO 1.02; BILIRUBIN,INDIRECT 0.7 mg/dl (0-1.1); BILIRUBIN,TOTAL 2.7 mg/dl (0.2-1.3); CALCIUM 8.5 mg/dl (8.4-10.2); POTASSIUM 3.7 mmol/L (3.5-5.1); TOTAL PROTEIN 6.9 g/dl (6.1-8.1)
[2016-08-06 05:17] LABS: MAGNESIUM 1.9 mg/dl (1.7-2.5); PHOSPHORUS 1.7 mg/dl (2.5-4.9)
[2016-08-06] MEDS: VASOPRESSIN 60 UNIT in DEXTROSE 5% 57 ML IV SCH ×2 (05:30→17:29)
[2016-08-06 05:42] LABS: CREATININE 3.58 mg/dl (0.61-1.24)
[2016-08-06] MEDS: PIPER-TAZO 3.375 GM IV (PMX) 100 ML IVPB SCH ×3 (05:44→21:10)
[2016-08-06] MEDS: metroNIDAZOLE 500 MG/NS (PMX) 100 ML IVPB SCH ×3 (05:44→21:10)
[2016-08-06] MEDS: PANTOPRAZOLE 40 MG INJ IV SCH ×2 (05:44→17:36)
[2016-08-06] MEDS: LEVOTHYROXINE 100 MCG TAB NGT SCH (05:45)
[2016-08-06] MEDS ORDERED: MAGNESIUM SULFATE 1 GM/D5W 100 ML IVPB ONE (08:00)
[2016-08-06] MEDS: ARTIFICIAL TEARS 15 ML OPH BOTH EYES SCH ×4 (08:01→21:11)
[2016-08-06] MEDS: METHYLPREDNISOLONE 40 MG INJ IV SCH ×2 (08:01→21:10)
[2016-08-06 08:04] LABS: AADO2 Arterial 380.3 mmHg (7.0-24.0); Allen Test ACCEPTAB; Arterial Base Excess 0.7 mmol/L (-3.0-3); Arterial COHb 0.3 % (0.0-3.0); Arterial Fraction of Oxyhgb 94.7 % (93.0-99.0); Arterial HCO3 23.8 mmol/L (22.0-26.0); Arterial MetHb 0.4 % (0.0-1.5); Arterial Total Hemglobin 8.5 g/dl (12.0-18.0); MODE VENT - AC
[2016-08-06] MEDS: PROPOFOL 100 ML IV SCH ×2 (08:10→20:31)
--- NOTE | 2016-08-06 08:11 | RADRPT ---
PROCEDURE: XR Chest. CLINICAL INDICATION: EVAL TECHNIQUE: Single frontal view of the chest was obtained. COMPARISON: Chest X-ray from 08/05/2016 FINDINGS: The endotracheal tube and enteric tube are unchanged in position. There are low lung volumes and stable cardiomegaly with increased prominence of interstitial marking s and patchy opacities consistent with worsening congestive changes and / or infiltrates. There is a stable retrocardiac opacity due to atelectasis, infiltrate, and / or effusion. The aortic arch is calcified. IMPRESSION: Increased prominence of interstitial markings and patchy opacities consistent with worsening congest laquita changes and / or infiltrates. Stable retrocardiac opacity due to atelectasis, infiltrate, and / or effusion. Stable cardiomegaly and low lung volumes. Lines and support tubes are unchanged. Aortic atherosclerosis. RPTAT: EE Physician Ismael Date Time Electronically viewed and signed by Physician Ismael on 08/06/2016 08:10 /
--- NOTE | 2016-08-06 08:35 | CONS ---
Date/Time of Note Date/Time of Note DATE: 08/06/16 TIME: 08:32 Assessment/Plan Assessment/Plan Chief Complaint/Hosp Course 60-year-old right-handed -[place] gentleman normally cared for at the [facility]. He was admitted to the hospital but it had cardiac arrest in the hospital. Please note that his picture actually looked a bit like adrenal insufficiency except that he has a serum cortisol level of 44 prior to his arrest. He had a TSH of 21 with a low free T4 and a low T3. Patient is intubated and unable to give a history although he is able to look and follows rudimentary commands. At this time many of his metabolic abnormalities have improved. Problems: (1) Alcohol abuse Status: Chronic Comment: He is past the point where we expect DTs. His sedation that was used for this can be tapered off and will see how he does. (2) Acute kidney injury Status: Acute Comment: He is going to be dialyzed today. (3) Lactic acidosis Status: Resolved Comment: Resolved. Some labs are still pending but either way the treatments that have been undertaken have been successful and effective (4) High anion gap metabolic acidosis Status: Resolved Comment: As above. (5) Hyperglycemia Status: Acute Comment: This was induced by the steroids. 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 For now continue his NPH which is linked to the Solu-Medrol. Please note of the Solu- Medrol is decreased or stopped the NPH needs to be decreased or stopped respectively. This is in the order set. (6) Hypocalcemia Status: Acute Comment: This is normalizing after enteral and parenteral supplementation. (7) Hypothyroidism Status: Chronic Comment: On replacement therapy. Qualifiers: Hypothyroidism type: acquired Qualified Code: E03.9 - Acquired hypothyroidism Consultation Date/Type/Reason Admit Date/Time August 01, 2016 at 00:50 Initial Consult Date 08/01/16 Type of Consultation: Endocrine Reason for Consultation Hypothyroidism; steroid-induced diabetes mellitus type 2; high anion gap acidosis; hypocalcemia Referring Provider: NIKOLE KWON MD, [facility] 24 HR Interval Summary Free Text/Dictation Patient remains on a fentanyl drip and is marginally responsive. Subjective hx not possible: pt non-verbal Exam/Review of Systems Vital Signs Vitals Vital Signs Date Time Temp Pulse Resp B/P Pulse Ox O2 Delivery O2 Flow Rate FiO2 6/5/17 07:38 90 30 96 70 08/06/16 06:00 113/82 Mechanical Ventilator 08/06/16 04:00 97.6 Intake and Output 08/05/16 08/05/16 08/06/16 15:00 23:00 07:00 Intake Total 308.5 ml 214.50 ml 468.75 ml Output Total 50 ml Balance 308.5 ml 214.50 ml 418.75 ml Exam Intubated Constitutional: non-verbal Head: atraumatic, normocephalic ENMT: intubated Neck: non-tender, other (Intubated), supple Respiratory: clear to auscultation, normal air movement Cardiovascular: nl pulses, regular rate and rhythm (Frequent PACs) Gastrointestinal: nl liver, spleen, non-tender, soft Results Result Diagram: 08/06/16 0400 08/06/16 0400 Results 24 hrs Laboratory Tests Test 08/05/16 08:46 08/05/16 12:05 08/05/16 13:14 08/05/16 13:17 Bedside Glucose 149 145 Lab Scanned Report REFERENCE LAB REFERENCE LAB Test 08/05/16 13:19 08/05/16 21:02 08/06/16 00:14 08/06/16 04:00 Lab Scanned Report REFERENCE LAB Bedside Glucose 142 139 White Blood Count 14.9 H Red Blood Count 2.31 L Hemoglobin 7.8 L Hematocrit 21.5 L Mean Corpuscular Volume 93.1 Mean Corpuscular Hemoglobin 33.8 H Mean Corpuscular Hemoglobin Concent 36.3 Red Cell Distribution Width 15.6 H Platelet Count 47 L Mean Platelet Volume 13.0 H Neutrophils % Lymphocytes % Monocytes % Eosinophils % Neutrophils # Lymphocytes # Monocytes # Eosinophils # Sodium Level 140 Potassium Level 3.7 Chloride Level 101 Carbon Dioxide Level 26 Anion Gap 17 H Blood Urea Nitrogen 57 H Creatinine 3.58 H Glucose Level 128 Calcium Level 8.5 Phosphorus Level 1.7 #L Magnesium Level 1.9 Total Bilirubin 2.7 H Direct Bilirubin 2.00 #H Indirect Bilirubin 0.7 Aspartate Amino Transf (AST/SGOT) 102 H Alanine Aminotransferase (ALT/SGPT) 55 Alkaline Phosphatase 173 #H Total Protein 6.9 Albumin 3.5 Globulin 3.40 H Albumin/Globulin Ratio 1.02 Vancomycin Level Trough 14.9 Test 08/06/16 05:43 08/06/16 07:00 08/06/16 08:09 Bedside Glucose 142 126 Blood Gas Specimen Source Blood arterial Arterial Blood Date Drawn 08/06/2016 7:30:54 AM Arterial Blood pH (Temp corrected) 7.492 H Arterial Blood pCO2 (Temp correct) 31.8 L Arterial Blood pO2 (Temp corrected) 84.6 Arterial Blood HCO3 23.8 Arterial Blood Base Excess 0.7 Arterial Blood Oxygen Saturation 95.4 Stanley Test ACCEPTAB Arterial Blood Gas Puncture Site Right Radial Arterial Blood Carboxyhemoglobin 0.3 Arterial Blood Methemoglobin 0.4 Blood Gas A-a O2 Differential 380.3 H Oxyhemoglobin Percent 94.7 Total Hemoglobin 8.5 L Blood Gas Temperature 37.0 Blood Gas Respiration Rate 30.0 Blood Gas Actual Respiration Rate 30 Blood Gas Modality VENT - AC FiO2 70.0 Blood Gas Tidal Volume 570.0 Blood Gas Low PEEP Setting 12.0 Blood Gas Notified Whom JLD Blood Gas Notified Time 08/06/2016 8:04:41 AM Medications Medications Current Medications Lorazepam (Ativan) 0.5 mg Q6H PRN IV ANXIETY Last administered on 08/03/16 21: 06; Admin Dose 0.5 MG; Start 08/01/16 at 03:00 Ondansetron HCl (Zofran Inj) 4 mg Q6H PRN IV NAUSEA AND/OR VOMITING; Start at 03:00 Metoclopramide HCl (Reglan) 10 mg Q6H PRN IV NAUSEA AND/OR VOMITING; Start at 03:00 Acetaminophen (Tylenol Tab) 650 mg Q6H PRN PO PAIN LEVEL 1-3 OR FEVER; Start at 03:00 Acetaminophen (Tylenol Supp) 650 mg Q4H PRN IN PAIN LEVEL 1-3 OR FEVER; Start 08/01/16 at 06:30 Pantoprazole 40 mg 40 mg BID@06,18 IV Last administered on 08/06/16 05:44; Admin Dose 40 MG; Start 08/01/16 at 06:00 Propofol 100 ml @ 3.33 mls/hr Q12H IV Last administered on 08/02/16 09:30; Admin Dose 26.64 MLS/HR; Start 08/01/16 at 09:30 Phenylephrine HCl 40 mg/Dextrose 500 ml @ 0 mls/hr TITRATE IV Last administered on 08/02/16 04:58; Admin Dose 112.5 MLS/HR; Start 08/01/16 at 16:00 Norepinephrine 16 mg/Dextrose 500 ml @ 0 mls/hr TITRATE IV Last administered on 08/06/16 00:10; Admin Dose 30 MLS/HR; Start 08/01/16 at 16:00 Vasopressin 60 unit/Dextrose 60 ml @ 1.2 mls/hr Q12H IV Last administered on 03:55; Admin Dose 2.4 MLS/HR; Start 08/01/16 at 17:30 Epinephrine/ Sodium Chloride (EPINEPHrine/NS) 250 ml @ 3.75 mls/hr TITRATE IV Last administered on 08/01/16 18:50; Admin Dose 3.75 MLS/HR; Start 08/01/16 at 19:30 Eye Lubricant (Artificial Tears Oph) 2 drop QID BOTH EYES Last administered on 08/06/16 08:01; Admin Dose 2 DROP; Start 08/02/16 at 09:00 Insulin Aspart (Novolog Insulin Pen) NOVOLOG *MODERATE* ALGORI... Q4 SC Last administered on 08/06/16 05:48; Admin Dose 2 UNIT; Start 08/02/16 at 09:00 Miscellaneous Information 1 ea NOTE XX ; Start 08/02/16 at 09:00 Glucose (Glutose) 15 gm Q15M PRN PO DECREASED GLUCOSE; Start 08/02/16 at 09:00 Glucose (Glutose) 22.5 gm Q15M PRN PO DECREASED GLUCOSE; Start 08/02/16 at 09:00 Dextrose (D50w Syringe) 25 ml Q15M PRN IV DECREASED GLUCOSE; Start 08/02/16 at 09:00 Dextrose (D50w Syringe) 50 ml Q15M PRN IV DECREASED GLUCOSE; Start 08/02/16 at 09:00 Glucagon (Glucagen) 1 mg Q15M PRN IM DECREASED GLUCOSE; Start 08/02/16 at 09:00 Glucose 15 gm 15 gm Q15M PRN BUCCAL DECREASED GLUCOSE; Start 08/02/16 at 09:00 Midazolam HCl 50 ml @ 1 mls/hr TITRATE IV Last administered on 08/03/16 04:30; Admin Dose 10 MLS/HR; Start 08/02/16 at 09:30 Fentanyl (Sublimaze) 100 ml @ 2.5 mls/hr TITRATE IV Last administered on 23:14; Admin Dose 10 MLS/HR; Start 08/02/16 at 09:30 Calcium Carbonate (Ca Carbonate) 1,250 mg Q6 NGT Last administered on 08/06/16 05:45; Admin Dose 1,250 MG; Start 08/03/16 at 12:00 Levothyroxine Sodium (Synthroid) 100 mcg DAILY@06 NGT Last administered on 05:45; Admin Dose 100 MCG; Start 08/04/16 at 06:00 Insulin Human NPH 12 unit 12 unit Q6 SC Last administered on 08/06/16 05:47; Admin Dose 12 UNIT; Start 08/03/16 at 12:00 Metronidazole 100 ml @ 100 mls/hr Q8 IVPB Last administered on 08/06/16 05:44 ; Admin Dose 100 MLS/HR; Start 08/03/16 at 10:00 Piperacillin Sod/ Tazobactam Sod (Zosyn 3.375gm/ 100 ml (Pmx)) 100 ml @ 200 mls /hr Q8 IVPB Last administered on 08/06/16 05:44; Admin Dose 200 MLS/HR; Start 08/03/16 at 14:00 Methylprednisolone Sodium Succinate 40 mg 40 mg Q12 IV Last administered on 08/06 08:01; Admin Dose 40 MG; Start 08/05/16 at 21:00 Potassium Phosphate 30 mm/ Sodium Chloride 260 ml @ 65 mls/hr ONCE ONCE IVPB ; Start 08/06/16 at 09:00; Stop 08/06/16 at 12:59 Magnesium Sulfate/ Dextrose (Magnesium Sulfate 1 Gm/D5W) 100 ml @ 100 mls/hr ONCE ONCE IVPB Last administered on 08/06/16 08:01; Admin Dose 100 MLS/HR; Start 08/06/16 at 08:00; Stop 08/06/16 at 08:59 ERIN MARTÍNEZ MD Aug 06, 2016 08:35
[2016-08-06] MEDS ORDERED: POTASSIUM PHOSPHATE 30 MM in SOD CHLORIDE 0.9% 250 ML IVPB ONE (09:00)
--- NOTE | 2016-08-06 09:12 | PN ---
DATE: 08/06/2016 SUBJECTIVE: The patient remains critically ill on pressor support. The patient's FIO2 was weaned d own. The patient remains anuric with a urine output of 5 to 10 mL an hour. No other acute events n oted. No hemoptysis, hematemesis, or hematochezia. OBJECTIVE: VITAL SIGNS: Blood pressure is ____, respirations 30, pulse 89, temperature 98.2. HEENT: Head is normocephalic. NECK: Supple. HEART: Regular rate. LUNGS: Show diminished breath sounds at the base. ABDOMEN: Soft, nontender to palpation. No rebound or guarding. EXTREMITIES: Negative for clubbing, cyanosis, positive edema. DERMATOLOGIC: No rashes. MUSCULOSKELETAL: No joint effusions. NEUROLOGIC: No change in exam. MEDICATIONS: The patient's medications have been reviewed. LABORATORY DATA: Shows sodium 140, potassium 3.7, chloride 101, BUN 57, creatinine 3.58, white coun t 14.9, hemoglobin 7.8, hematocrit 21.5, platelet count is 47. ABG shows pH 7.49, pCO2 of 34. Toxi cology was reviewed. The patient's phosphorus 1.7. IMAGING STUDIES: Reviewed. Cultures have been reviewed. ASSESSMENT AND PLAN: 1. Oliguric acute kidney injury with unknown baseline creatinine. Etiology is secondary to acute t ubular necrosis due to septic shock. The patient is currently dialysis dependent. Will continue to monitor for any signs of renal recovery. Plan for dialysis today for 3 hours on 3 K bath, calcium 2.5, will ultrafiltrate as tolerated. 2. Respiratory alkalosis. The patient's ABG is reviewed. Continue to monitor. No need for bicarb jacquie therapy. 3. Anemia. Continue to monitor hemoglobin and hematocrit levels. Will transfuse 1 unit of PRBCs w ith hemodialysis. 4. Mineral bone disorder. The patient is hypophosphatemic. We will replete with potassium phospha te 30 mEq IV x1. Continue to observe. The patient also is hypocalcemic. Will continue dialysis on a 3 calcium bath. We will follow up PTH level. 5. Volume overload secondary to acute congestive heart failure, IV fluids. Will continue ultrafilt ration with hemodialysis if hemodynamically stable. 6. Ventilator-dependent respiratory failure. Vent settings have been reviewed. ABG has been revie wed. Continue to monitor. Follow up with pulmonary. 7. Shock, etiology is likely septic. We will continue broad-spectrum antibiotics, continue pressor support. Continue to wean off as tolerated. We will monitor hemodialysis closely with ultrafiltra tion with dialysis. 8. Status post cardiopulmonary arrest. We will continue to monitor. Follow up with cardiology. C ontinue workup. 9. Acute encephalopathy, etiology is toxic metabolic. 10. Hypothyroidism. Continue Synthroid. 11. Hypomagnesemia. Continue to monitor and replete. 12. Hyponatremia, resolved. 13. Lactic acidosis secondary to shock. Will repeat a lactic acid level. Continue to treat underl kota sepsis as stated above. Please note I spent over 35 minutes of critical care time with this patient. Dictated By: BALDOMERO TOVAR/CHARLES Conf#: [id number] DID#: [id number]
--- NOTE | 2016-08-06 10:13 | CONS ---
Date/Time of Note Date/Time of Note DATE: 08/06/16 TIME: 10:12 Assessment/Plan Assessment/Plan Chief Complaint/Hosp Course PEA cardiac arrest: secondary to severe metabolic acidosis. No VT/VF or EKG changes to suggest primary cardiac etiology. Trops ok, EF preserved. Acute respiratory failure: intubated during code. ?ARDS as not much improvement after HD. Now slowly improving Severe metabolic acidosis: likely was the culprit for the arrest. HD started Shock: ?septic.Still on low dose levophed Acute renal failure: unclear etiology now on HD, making some urine Hypoglycemia Hypothyroidism Diarrhea/n/v/colitis -wean off levophed, goal SBP >100 or MAP >65 -vent management per pulm -HD per nephro Problems: Consultation Date/Type/Reason Admit Date/Time August 01, 2016 at 00:50 Initial Consult Date 08/01/16 Type of Consultation: Cardiology Referring Provider: NIKOLE KWON MD, [facility] 24 HR Interval Summary Free Text/Dictation On slightly higher O2 but levophed almost off. Exam/Review of Systems Vital Signs Vitals Vital Signs Date Time Temp Pulse Resp B/P Pulse Ox O2 Delivery O2 Flow Rate FiO2 08/06/16 10:00 87 30 119/89 93 Mechanical Ventilator 08/06/16 08:00 98.8 08/06/16 07:38 70 Intake and Output 08/05/16 08/05/16 08/06/16 15:00 23:00 07:00 Intake Total 308.5 ml 214.50 ml 478.75 ml Output Total 50 ml Balance 308.5 ml 214.50 ml 428.75 ml Exam Constitutional: No alert Head: atraumatic, normocephalic Neck: No jvd (difficult to examine ) Respiratory: diminished breath sounds, No clear to auscultation, No crackles/rales Cardiovascular: edema (1+), regular rate and rhythm Gastrointestinal: non-tender, soft Neurological: No nl mental status Results Result Diagram: 08/06/16 0400 08/06/16 0400 Results 24 hrs Laboratory Tests Test 08/05/16 12:05 08/05/16 13:14 08/05/16 13:17 08/05/16 13:19 Bedside Glucose 145 Lab Scanned Report REFERENCE LAB REFERENCE LAB REFERENCE LAB Test 08/05/16 21:02 08/06/16 00:14 08/06/16 04:00 08/06/16 05:43 Bedside Glucose 142 139 142 White Blood Count 14.9 H Red Blood Count 2.31 L Hemoglobin 7.8 L Hematocrit 21.5 L Mean Corpuscular Volume 93.1 Mean Corpuscular Hemoglobin 33.8 H Mean Corpuscular Hemoglobin Concent 36.3 Red Cell Distribution Width 15.6 H Platelet Count 47 L Mean Platelet Volume 13.0 H Neutrophils % Lymphocytes % Monocytes % Eosinophils % Neutrophils # Lymphocytes # Monocytes # Eosinophils # Sodium Level 140 Potassium Level 3.7 Chloride Level 101 Carbon Dioxide Level 26 Anion Gap 17 H Blood Urea Nitrogen 57 H Creatinine 3.58 H Glucose Level 128 Calcium Level 8.5 Phosphorus Level 1.7 #L Magnesium Level 1.9 Total Bilirubin 2.7 H Direct Bilirubin 2.00 #H Indirect Bilirubin 0.7 Aspartate Amino Transf (AST/SGOT) 102 H Alanine Aminotransferase (ALT/SGPT) 55 Alkaline Phosphatase 173 #H Total Protein 6.9 Albumin 3.5 Globulin 3.40 H Albumin/Globulin Ratio 1.02 Vancomycin Level Trough 14.9 Test 08/06/16 07:00 08/06/16 08:09 Blood Gas Specimen Source Blood arterial Arterial Blood Date Drawn 08/06/2016 7:30:54 AM Arterial Blood pH (Temp corrected) 7.492 H Arterial Blood pCO2 (Temp correct) 31.8 L Arterial Blood pO2 (Temp corrected) 84.6 Arterial Blood HCO3 23.8 Arterial Blood Base Excess 0.7 Arterial Blood Oxygen Saturation 95.4 Stanley Test ACCEPTAB Arterial Blood Gas Puncture Site Right Radial Arterial Blood Carboxyhemoglobin 0.3 Arterial Blood Methemoglobin 0.4 Blood Gas A-a O2 Differential 380.3 H Oxyhemoglobin Percent 94.7 Total Hemoglobin 8.5 L Blood Gas Temperature 37.0 Blood Gas Respiration Rate 30.0 Blood Gas Actual Respiration Rate 30 Blood Gas Modality VENT - AC FiO2 70.0 Blood Gas Tidal Volume 570.0 Blood Gas Low PEEP Setting 12.0 Blood Gas Notified Whom JLD Blood Gas Notified Time 08/06/2016 8:04:41 AM Bedside Glucose 126 Medications Medications Current Medications Lorazepam (Ativan) 0.5 mg Q6H PRN IV ANXIETY Last administered on 08/03/16t 21: 06; Admin Dose 0.5 MG; Start 08/01/16 at 03:00 Ondansetron HCl (Zofran Inj) 4 mg Q6H PRN IV NAUSEA AND/OR VOMITING; Start at 03:00 Metoclopramide HCl (Reglan) 10 mg Q6H PRN IV NAUSEA AND/OR VOMITING; Start at 03:00 Acetaminophen (Tylenol Tab) 650 mg Q6H PRN PO PAIN LEVEL 1-3 OR FEVER; Start at 03:00 Acetaminophen (Tylenol Supp) 650 mg Q4H PRN NC PAIN LEVEL 1-3 OR FEVER; Start 08/01/16 at 06:30 Pantoprazole 40 mg 40 mg BID@06,18 IV Last administered on 08/06/16 05:44; Admin Dose 40 MG; Start 08/01/16 at 06:00 Propofol 100 ml @ 3.33 mls/hr Q12H IV Last administered on 08/02/16 09:30; Admin Dose 26.64 MLS/HR; Start 08/01/16 at 09:30 Phenylephrine HCl 40 mg/Dextrose 500 ml @ 0 mls/hr TITRATE IV Last administered on 08/02/16 04:58; Admin Dose 112.5 MLS/HR; Start 08/01/16 at 16:00 Norepinephrine 16 mg/Dextrose 500 ml @ 0 mls/hr TITRATE IV Last administered on 08/06/16 00:10; Admin Dose 30 MLS/HR; Start 08/01/16 at 16:00 Vasopressin 60 unit/Dextrose 60 ml @ 1.2 mls/hr Q12H IV Last administered on 03:55; Admin Dose 2.4 MLS/HR; Start 08/01/16 at 17:30 Epinephrine/ Sodium Chloride (EPINEPHrine/NS) 250 ml @ 3.75 mls/hr TITRATE IV Last administered on 08/01/16 18:50; Admin Dose 3.75 MLS/HR; Start 08/01/16 at 19:30 Eye Lubricant (Artificial Tears Oph) 2 drop QID BOTH EYES Last administered on 08/06/16 08:01; Admin Dose 2 DROP; Start 08/02/16 at 09:00 Insulin Aspart (Novolog Insulin Pen) NOVOLOG *MODERATE* ALGORI... Q4 SC Last administered on 08/06/16 05:48; Admin Dose 2 UNIT; Start 08/02/16 at 09:00 Miscellaneous Information 1 ea NOTE XX ; Start 08/02/16 at 09:00 Glucose (Glutose) 15 gm Q15M PRN PO DECREASED GLUCOSE; Start 08/02/16 at 09:00 Glucose (Glutose) 22.5 gm Q15M PRN PO DECREASED GLUCOSE; Start 08/02/16 at 09:00 Dextrose (D50w Syringe) 25 ml Q15M PRN IV DECREASED GLUCOSE; Start 08/02/16 at 09:00 Dextrose (D50w Syringe) 50 ml Q15M PRN IV DECREASED GLUCOSE; Start 08/02/16 at 09:00 Glucagon (Glucagen) 1 mg Q15M PRN IM DECREASED GLUCOSE; Start 08/02/16 at 09:00 Glucose 15 gm 15 gm Q15M PRN BUCCAL DECREASED GLUCOSE; Start 08/02/16 at 09:00 Midazolam HCl 50 ml @ 1 mls/hr TITRATE IV Last administered on 08/03/16 04:30; Admin Dose 10 MLS/HR; Start 08/02/16 at 09:30 Fentanyl (Sublimaze) 100 ml @ 2.5 mls/hr TITRATE IV Last administered on 23:14; Admin Dose 10 MLS/HR; Start 08/02/16 at 09:30 Calcium Carbonate (Ca Carbonate) 1,250 mg Q6 NGT Last administered on 08/06/16 05:45; Admin Dose 1,250 MG; Start 08/03/16 at 12:00 Levothyroxine Sodium (Synthroid) 100 mcg DAILY@06 NGT Last administered on 05:45; Admin Dose 100 MCG; Start 08/04/16 at 06:00 Insulin Human NPH 12 unit 12 unit Q6 SC Last administered on 08/06/16 05:47; Admin Dose 12 UNIT; Start 08/03/16 at 12:00 Metronidazole 100 ml @ 100 mls/hr Q8 IVPB Last administered on 08/06/16 05:44 ; Admin Dose 100 MLS/HR; Start 08/03/16 at 10:00 Piperacillin Sod/ Tazobactam Sod (Zosyn 3.375gm/ 100 ml (Pmx)) 100 ml @ 200 mls /hr Q8 IVPB Last administered on 08/06/16 05:44; Admin Dose 200 MLS/HR; Start 08/03/16 at 14:00 Methylprednisolone Sodium Succinate 40 mg 40 mg Q12 IV Last administered on 08/06 08:01; Admin Dose 40 MG; Start 08/05/16 at 21:00 Potassium Phosphate/Sodium Chloride (K Phos (Mm)/NS) 260 ml @ 65 mls/hr ONCE ONCE IVPB Last administered on 08/06/16 09:13; Admin Dose 65 MLS/HR; Start 08/06 at 09:00; Stop 08/06/16 at 12:59 SEPIDEH HAN Aug 06, 2016 10:13
[2016-08-06 11:10] LABS: LYMPHOCYTES # 1.9 10^3/ul (0.8-2.9); MONOCYTE # 0.6 10^3/ul (0.3-0.9); NEUTROPHIL # 8.3 10^3/ul (1.6-7.5)
--- NOTE | 2016-08-06 12:45 | CONS ---
Date/Time of Note Date/Time of Note DATE: 08/06/16 TIME: 12:44 Consult Date/Type/Reason Admit Date/Time August 01, 2016 at 00:50 Initial Consult Date 08/01/16 Type of Consultation: Pulmonary Ordering Provider: NIKOLE KWON MD, [facility] Subjective Patient continues mechanical ventilation. Some spontaneous movement but not following commands off sedation. Continues vasopressor support. Continues IV fluids. Objective Vital Signs Date Time Temp Pulse Resp B/P Pulse Ox O2 Delivery O2 Flow Rate FiO2 08/06/16 12:00 87 08/06/16 10:00 30 119/89 93 Mechanical Ventilator 08/06/16 08:00 98.8 08/06/16 07:38 70 Intake and Output 08/05/16 08/05/16 08/06/16 15:00 23:00 07:00 Intake Total 308.5 ml 214.50 ml 478.75 ml Output Total 50 ml Balance 308.5 ml 214.50 ml 428.75 ml Exam PHYSICAL EXAMINATION: GENERAL: Moderately obese gentleman, intubated on mechanical ventilation, VITAL SIGNS: NECK: Supple. No JVD or lymphadenopathy. CARDIAC: S1, S2, no added sounds or murmurs. CHEST: Diminished air entry bilaterally. ABDOMEN: Soft, nontender. No guarding, no rebound. EXTREMITIES: No cyanosis, clubbing. Edema +1. NEUROLOGIC: Generalized weakness. Results/Medications Result Diagram: 08/06/16 0400 08/06/16 0400 Results 24 hrs Laboratory Tests Test 08/05/16 13:14 08/05/16 13:17 08/05/16 13:19 08/05/16 21:02 Lab Scanned Report REFERENCE LAB REFERENCE LAB REFERENCE LAB Bedside Glucose 142 Test 08/06/16 00:14 08/06/16 04:00 08/06/16 05:43 08/06/16 07:00 Bedside Glucose 139 142 White Blood Count 14.9 H Red Blood Count 2.31 L Hemoglobin 7.8 L Hematocrit 21.5 L Mean Corpuscular Volume 93.1 Mean Corpuscular Hemoglobin 33.8 H Mean Corpuscular Hemoglobin Concent 36.3 Red Cell Distribution Width 15.6 H Platelet Count 47 L Mean Platelet Volume 13.0 H Neutrophils % 56.0 Band Neutrophils % 26.0 H Lymphocytes % 13.0 L Monocytes % 4.0 Eosinophils % Metamyelocytes % 1.0 H Neutrophils # 8.3 H Lymphocytes # 1.9 Monocytes # 0.6 Eosinophils # Metamyelocytes # 0.1 Sodium Level 140 Potassium Level 3.7 Chloride Level 101 Carbon Dioxide Level 26 Anion Gap 17 H Blood Urea Nitrogen 57 H Creatinine 3.58 H Glucose Level 128 Calcium Level 8.5 Phosphorus Level 1.7 #L Magnesium Level 1.9 Total Bilirubin 2.7 H Direct Bilirubin 2.00 #H Indirect Bilirubin 0.7 Aspartate Amino Transf (AST/SGOT) 102 H Alanine Aminotransferase (ALT/SGPT) 55 Alkaline Phosphatase 173 #H Total Protein 6.9 Albumin 3.5 Globulin 3.40 H Albumin/Globulin Ratio 1.02 Vancomycin Level Trough 14.9 Blood Gas Specimen Source Blood arterial Arterial Blood Date Drawn 08/06/2016 7:30:54 AM Arterial Blood pH (Temp corrected) 7.492 H Arterial Blood pCO2 (Temp correct) 31.8 L Arterial Blood pO2 (Temp corrected) 84.6 Arterial Blood HCO3 23.8 Arterial Blood Base Excess 0.7 Arterial Blood Oxygen Saturation 95.4 Stanley Test ACCEPTAB Arterial Blood Gas Puncture Site Right Radial Arterial Blood Carboxyhemoglobin 0.3 Arterial Blood Methemoglobin 0.4 Blood Gas A-a O2 Differential 380.3 H Oxyhemoglobin Percent 94.7 Total Hemoglobin 8.5 L Blood Gas Temperature 37.0 Blood Gas Respiration Rate 30.0 Blood Gas Actual Respiration Rate 30 Blood Gas Modality VENT - AC FiO2 70.0 Blood Gas Tidal Volume 570.0 Blood Gas Low PEEP Setting 12.0 Blood Gas Notified Whom JLD Blood Gas Notified Time 08/06/2016 8:04:41 AM Test 08/06/16 08:09 08/06/16 11:43 Bedside Glucose 126 115 Medications Current Medications Lorazepam (Ativan) 0.5 mg Q6H PRN IV ANXIETY Last administered on 08/03/16t 21: 06; Admin Dose 0.5 MG; Start 08/01/16 at 03:00 Ondansetron HCl (Zofran Inj) 4 mg Q6H PRN IV NAUSEA AND/OR VOMITING; Start at 03:00 Metoclopramide HCl (Reglan) 10 mg Q6H PRN IV NAUSEA AND/OR VOMITING; Start at 03:00 Acetaminophen (Tylenol Tab) 650 mg Q6H PRN PO PAIN LEVEL 1-3 OR FEVER; Start at 03:00 Acetaminophen (Tylenol Supp) 650 mg Q4H PRN NV PAIN LEVEL 1-3 OR FEVER; Start 08/01/16 at 06:30 Pantoprazole 40 mg 40 mg BID@06,18 IV Last administered on 08/06/16 05:44; Admin Dose 40 MG; Start 08/01/16 at 06:00 Propofol 100 ml @ 3.33 mls/hr Q12H IV Last administered on 08/02/16 09:30; Admin Dose 26.64 MLS/HR; Start 08/01/16 at 09:30 Phenylephrine HCl 40 mg/Dextrose 500 ml @ 0 mls/hr TITRATE IV Last administered on 08/02/16 04:58; Admin Dose 112.5 MLS/HR; Start 08/01/16 at 16:00 Norepinephrine 16 mg/Dextrose 500 ml @ 0 mls/hr TITRATE IV Last administered on 08/06/16 00:10; Admin Dose 30 MLS/HR; Start 08/01/16 at 16:00 Vasopressin 60 unit/Dextrose 60 ml @ 1.2 mls/hr Q12H IV Last administered on 03:55; Admin Dose 2.4 MLS/HR; Start 08/01/16 at 17:30 Epinephrine/ Sodium Chloride (EPINEPHrine/NS) 250 ml @ 3.75 mls/hr TITRATE IV Last administered on 08/01/16 18:50; Admin Dose 3.75 MLS/HR; Start 08/01/16 at 19:30 Eye Lubricant (Artificial Tears Oph) 2 drop QID BOTH EYES Last administered on 08/06/16 12:00; Admin Dose 2 DROP; Start 08/02/16 at 09:00 Insulin Aspart (Novolog Insulin Pen) NOVOLOG *MODERATE* ALGORI... Q4 SC Last administered on 08/06/16 05:48; Admin Dose 2 UNIT; Start 08/02/16 at 09:00 Miscellaneous Information 1 ea NOTE XX ; Start 08/02/16 at 09:00 Glucose (Glutose) 15 gm Q15M PRN PO DECREASED GLUCOSE; Start 08/02/16 at 09:00 Glucose (Glutose) 22.5 gm Q15M PRN PO DECREASED GLUCOSE; Start 08/02/16 at 09:00 Dextrose (D50w Syringe) 25 ml Q15M PRN IV DECREASED GLUCOSE; Start 08/02/16 at 09:00 Dextrose (D50w Syringe) 50 ml Q15M PRN IV DECREASED GLUCOSE; Start 08/02/16 at 09:00 Glucagon (Glucagen) 1 mg Q15M PRN IM DECREASED GLUCOSE; Start 08/02/16 at 09:00 Glucose 15 gm 15 gm Q15M PRN BUCCAL DECREASED GLUCOSE; Start 08/02/16 at 09:00 Midazolam HCl 50 ml @ 1 mls/hr TITRATE IV Last administered on 08/03/16 04:30; Admin Dose 10 MLS/HR; Start 08/02/16 at 09:30 Fentanyl (Sublimaze) 100 ml @ 2.5 mls/hr TITRATE IV Last administered on 23:14; Admin Dose 10 MLS/HR; Start 08/02/16 at 09:30 Calcium Carbonate (Ca Carbonate) 1,250 mg Q6 NGT Last administered on 08/06/16 11:48; Admin Dose 1,250 MG; Start 08/03/16 at 12:00 Levothyroxine Sodium (Synthroid) 100 mcg DAILY@06 NGT Last administered on 05:45; Admin Dose 100 MCG; Start 08/04/16 at 06:00 Insulin Human NPH 12 unit 12 unit Q6 SC Last administered on 08/06/16 11:56; Admin Dose 12 UNIT; Start 08/03/16 at 12:00 Metronidazole 100 ml @ 100 mls/hr Q8 IVPB Last administered on 08/06/16 05:44 ; Admin Dose 100 MLS/HR; Start 08/03/16 at 10:00 Piperacillin Sod/ Tazobactam Sod (Zosyn 3.375gm/ 100 ml (Pmx)) 100 ml @ 200 mls /hr Q8 IVPB Last administered on 08/06/16 05:44; Admin Dose 200 MLS/HR; Start 08/03/16 at 14:00 Methylprednisolone Sodium Succinate 40 mg 40 mg Q12 IV Last administered on 08/06 08:01; Admin Dose 40 MG; Start 08/05/16 at 21:00 Potassium Phosphate/Sodium Chloride (K Phos (Mm)/NS) 260 ml @ 65 mls/hr ONCE ONCE IVPB Last administered on 08/06/16t 09:13; Admin Dose 65 MLS/HR; Start 08/06 at 09:00; Stop 08/06/16 at 12:59 Assessment/Plan Chief Complaint/Hosp Course IMPRESSION 1. Acute renal failure with severe metabolic acidosis, etiology of which remains unclear, possible acute tubular necrosis injury versus prerenal. 2. Respiratory failure secondary to significant metabolic acidosis and subsequent cardiac arrest. ARDS radiographically. 3. Severe hypothyroidism 4. History of ETOH. 5. Septic shock requiring vasopressors. Transfuse packed red blood cells with hemodialysis PLAN: 1. Severe metabolic acidosis corrected with hemodialysis and bicarbonate 2. Renal consult. Continue hemodialysis as tolerated 3. Endocrinology consult. Appreciated 4. Continue vasopressors decreased as tolerated 5. DVT and GI prophylaxis. 6. Continue antibiotics 7. Continue steroids 8. Packed red cell transfusion Overall prognosis remains guarded Problems: NIKOLE [facility]WON MD, [facility] Aug 06, 2016 12:45
[2016-08-06] MEDS: VANCOMYCIN 1.25 GM in SOD CHLORIDE 0.9% 250 ML IVPB SCH (16:00)
--- NOTE | 2016-08-06 16:03 | PN ---
Date/Time of Note Date/Time of Note DATE: 08/06/16 TIME: 16:01 Assessment/Plan VTE Prophylaxis VTE Prophylaxis Intervention: SCD's Assessment/Plan Chief Complaint/Hosp Course 1. Status post cardiac arrest with ROSC 2/2 severe meatbolic acidosis from #4 2. Acute encephalopathy secondary to #1 [toxic metabolic] 3. Ventilator dependent respiratory failure with probable ARDS and pulmonary edema per pulmonary 4. Severe acute renal failure now on hemodialysis with unknown baseline thought to be secondary to severe ATN 5. Severe Sepsis with septic shock and lactic acidosis on pressors 6. Newly diagnosed Hypothyroidism 7. Chronic Alcohol use and abuse 8. Anemia likely secondary to chronic disease but a component of malnutrition from chronic alcohol abuse 9. Enterocolitis 10. Thrombocytopenia which could be as a result of liver disease, will have to rule out heparin-induced thrombocytopenia 11. Severe fatty liver with Transaminitis and mild hyperbilirubinemia indicating a measure of chronic liver disease vs shock liver 12. Bilateral pneumonia likely aspiration 13. Coagulase neg Staph UTI 14. Hypophosphatemia 15. Steroid-induced hyperglycemia vs type 2 DM requiring low-dose Lantus and NPH 16. Positive stool occult blood on twice daily PPI PLAN: Continue broad-spectrum antibiotics with IV vancomycin and Zosyn, cultures are insignificant at this time Continue to wean pressors Continue hemodialysis per nephrology Continue vent management and weaning Endocrinology managing sugars and thyroid profile Continue serial electrolyte monitoring and replenishment Continue supportive ICU care Prophylaxis : SCDS / PPI Problems: Subjective 24 Hr Interval Summary Subjective hx not possible: pt non-verbal Exam/Review of Systems Vital Signs Vitals Vital Signs Date Time Temp Pulse Resp B/P Pulse Ox O2 Delivery O2 Flow Rate FiO2 08/06/16 14:00 90 22 08/06/16 13:39 96 70 08/06/16 10:00 119/89 Mechanical Ventilator 08/06/16 08:00 98.8 Intake and Output 08/05/16 08/05/16 08/06/16 15:00 23:00 07:00 Intake Total 308.5 ml 214.50 ml 478.75 ml Output Total 50 ml Balance 308.5 ml 214.50 ml 428.75 ml Exam Constitutional: non-verbal ENMT: intubated Respiratory: clear to auscultation Cardiovascular: regular rate and rhythm Gastrointestinal: soft, No distended Musculoskeletal: nl extremities to inspection Results Result Diagram: 08/06/16 0400 08/06/160 Results 24 hrs Laboratory Tests Test 08/05/16 21:02 08/06/16 00:14 08/06/16 04:00 08/06/16 05:43 Bedside Glucose 142 139 142 White Blood Count 14.9 H Red Blood Count 2.31 L Hemoglobin 7.8 L Hematocrit 21.5 L Mean Corpuscular Volume 93.1 Mean Corpuscular Hemoglobin 33.8 H Mean Corpuscular Hemoglobin Concent 36.3 Red Cell Distribution Width 15.6 H Platelet Count 47 L Mean Platelet Volume 13.0 H Neutrophils % 56.0 Band Neutrophils % 26.0 H Lymphocytes % 13.0 L Monocytes % 4.0 Eosinophils % Metamyelocytes % 1.0 H Neutrophils # 8.3 H Lymphocytes # 1.9 Monocytes # 0.6 Eosinophils # Metamyelocytes # 0.1 Sodium Level 140 Potassium Level 3.7 Chloride Level 101 Carbon Dioxide Level 26 Anion Gap 17 H Blood Urea Nitrogen 57 H Creatinine 3.58 H Glucose Level 128 Calcium Level 8.5 Phosphorus Level 1.7 #L Magnesium Level 1.9 Total Bilirubin 2.7 H Direct Bilirubin 2.00 #H Indirect Bilirubin 0.7 Aspartate Amino Transf (AST/SGOT) 102 H Alanine Aminotransferase (ALT/SGPT) 55 Alkaline Phosphatase 173 #H Total Protein 6.9 Albumin 3.5 Globulin 3.40 H Albumin/Globulin Ratio 1.02 Vancomycin Level Trough 14.9 Test 08/06/16 07:00 08/06/16 08:09 08/06/16 11:43 Blood Gas Specimen Source Blood arterial Arterial Blood Date Drawn 08/06/2016 7:30:54 AM Arterial Blood pH (Temp corrected) 7.492 H Arterial Blood pCO2 (Temp correct) 31.8 L Arterial Blood pO2 (Temp corrected) 84.6 Arterial Blood HCO3 23.8 Arterial Blood Base Excess 0.7 Arterial Blood Oxygen Saturation 95.4 Stanley Test ACCEPTAB Arterial Blood Gas Puncture Site Right Radial Arterial Blood Carboxyhemoglobin 0.3 Arterial Blood Methemoglobin 0.4 Blood Gas A-a O2 Differential 380.3 H Oxyhemoglobin Percent 94.7 Total Hemoglobin 8.5 L Blood Gas Temperature 37.0 Blood Gas Respiration Rate 30.0 Blood Gas Actual Respiration Rate 30 Blood Gas Modality VENT - AC FiO2 70.0 Blood Gas Tidal Volume 570.0 Blood Gas Low PEEP Setting 12.0 Blood Gas Notified Whom BRIGHTD Blood Gas Notified Time 08/06/2016 8:04:41 AM Bedside Glucose 126 115 Medications Medications Current Medications Lorazepam (Ativan) 0.5 mg Q6H PRN IV ANXIETY Last administered on 08/03/16 21: 06; Admin Dose 0.5 MG; Start 08/01/16 at 03:00 Ondansetron HCl (Zofran Inj) 4 mg Q6H PRN IV NAUSEA AND/OR VOMITING; Start at 03:00 Metoclopramide HCl (Reglan) 10 mg Q6H PRN IV NAUSEA AND/OR VOMITING; Start at 03:00 Acetaminophen (Tylenol Tab) 650 mg Q6H PRN PO PAIN LEVEL 1-3 OR FEVER; Start at 03:00 Acetaminophen (Tylenol Supp) [address] PAIN LEVEL 1-3 OR FEVER; Start 08/01/16 at 06:30 Pantoprazole 40 mg 40 mg BID@06,18 IV Last administered on 08/06/16 05:44; Admin Dose 40 MG; Start 08/01/16 at 06:00 Propofol 100 ml @ 3.33 mls/hr Q12H IV Last administered on 08/02/16 09:30; Admin Dose 26.64 MLS/HR; Start 08/01/16 at 09:30 Phenylephrine HCl 40 mg/Dextrose 500 ml @ 0 mls/hr TITRATE IV Last administered on 08/02/16 04:58; Admin Dose 112.5 MLS/HR; Start 08/01/16 at 16:00 Norepinephrine 16 mg/Dextrose 500 ml @ 0 mls/hr TITRATE IV Last administered on 08/06/16 00:10; Admin Dose 30 MLS/HR; Start 08/01/16 at 16:00 Vasopressin 60 unit/Dextrose 60 ml @ 1.2 mls/hr Q12H IV Last administered on 03:55; Admin Dose 2.4 MLS/HR; Start 08/01/16 at 17:30 Epinephrine/ Sodium Chloride (EPINEPHrine/NS) 250 ml @ 3.75 mls/hr TITRATE IV Last administered on 08/01/16 18:50; Admin Dose 3.75 MLS/HR; Start 08/01/16 at 19:30 Eye Lubricant (Artificial Tears Oph) 2 drop QID BOTH EYES Last administered on 08/06/16 12:00; Admin Dose 2 DROP; Start 08/02/16 at 09:00 Insulin Aspart (Novolog Insulin Pen) NOVOLOG *MODERATE* ALGORI... Q4 SC Last administered on 08/06/16 05:48; Admin Dose 2 UNIT; Start 08/02/16 at 09:00 Miscellaneous Information 1 ea NOTE XX ; Start 08/02/16 at 09:00 Glucose (Glutose) 15 gm Q15M PRN PO DECREASED GLUCOSE; Start 08/02/16 at 09:00 Glucose (Glutose) 22.5 gm Q15M PRN PO DECREASED GLUCOSE; Start 08/02/16 at 09:00 Dextrose (D50w Syringe) 25 ml Q15M PRN IV DECREASED GLUCOSE; Start 08/02/16 at 09:00 Dextrose (D50w Syringe) 50 ml Q15M PRN IV DECREASED GLUCOSE; Start 08/02/16 at 09:00 Glucagon (Glucagen) 1 mg Q15M PRN IM DECREASED GLUCOSE; Start 08/02/16 at 09:00 Glucose 15 gm 15 gm Q15M PRN BUCCAL DECREASED GLUCOSE; Start 08/02/16 at 09:00 Midazolam HCl 50 ml @ 1 mls/hr TITRATE IV Last administered on 08/03/16 04:30; Admin Dose 10 MLS/HR; Start 08/02/16 at 09:30 Fentanyl (Sublimaze) 100 ml @ 2.5 mls/hr TITRATE IV Last administered on 23:14; Admin Dose 10 MLS/HR; Start 08/02/16 at 09:30 Calcium Carbonate (Ca Carbonate) 1,250 mg Q6 NGT Last administered on 08/06/16 11:48; Admin Dose 1,250 MG; Start 08/03/16 at 12:00 Levothyroxine Sodium (Synthroid) 100 mcg DAILY@06 NGT Last administered on 05:45; Admin Dose 100 MCG; Start 08/04/16 at 06:00 Insulin Human NPH 12 unit 12 unit Q6 SC Last administered on 08/06/16 11:56; Admin Dose 12 UNIT; Start 08/03/16 at 12:00 Metronidazole 100 ml @ 100 mls/hr Q8 IVPB Last administered on 08/06/16 14:00 ; Admin Dose 100 MLS/HR; Start 08/03/16 at 10:00 Piperacillin Sod/ Tazobactam Sod (Zosyn 3.375gm/ 100 ml (Pmx)) 100 ml @ 200 mls /hr Q8 IVPB Last administered on 08/06/16 14:00; Admin Dose 200 MLS/HR; Start 08/03/16 at 14:00 Methylprednisolone Sodium Succinate 40 mg 40 mg Q12 IV Last administered on 08/06 08:01; Admin Dose 40 MG; Start 08/05/16 at 21:00 Vancomycin HCl/ Sodium Chloride (Vancocin/NS) 250 ml @ 83.333 mls/ hr Q96H IVPB ; Start 08/06/16 at 16:00 SANYA SMILEY Aug 06, 2016 16:03
[2016-08-06] MEDS: FENTAnyl (DRIP) 1000 mcg/100mL 100 ML IV SCH (20:50)
[2016-08-07] VITALS (64 sets, daily range): BP systolic 100–162; BP diastolic 75–114; PULSE 71–91; RESP 20–33
[2016-08-07] MEDS: CA CARBONATE (250 MG/ML) 5ML CUP NGT SCH ×4 (00:15→17:34)
[2016-08-07] MEDS: INSULIN ASPART [NOVOLOG] 3 ML PEN SC SCH ×6 (00:16→21:00)
[2016-08-07] MEDS: NPH, HUMAN INSULIN ISOPHANE 3ML VIAL SC SCH ×4 (00:19→17:33)
[2016-08-07] MEDS: VASOPRESSIN 60 UNIT in DEXTROSE 5% 57 ML IV SCH ×2 (04:45→16:53)
[2016-08-07] MEDS: FENTAnyl (DRIP) 1000 mcg/100mL 100 ML IV SCH (04:45)
[2016-08-07] MEDS: LEVOTHYROXINE 100 MCG TAB NGT SCH (05:08)
[2016-08-07] MEDS: PANTOPRAZOLE 40 MG INJ IV SCH ×2 (05:08→17:34)
[2016-08-07] MEDS: PIPER-TAZO 3.375 GM IV (PMX) 100 ML IVPB SCH ×3 (05:08→21:37)
[2016-08-07] MEDS: metroNIDAZOLE 500 MG/NS (PMX) 100 ML IVPB SCH ×3 (05:08→21:37)
[2016-08-07 06:06] LABS: ABNORMAL IP MESSAGE 1; ADD SCAN DIFF NO; HEMATOCRIT 25.9 % (42.0-52.0); HEMOGLOBIN 9.3 g/dl (14.0-18.0); MEAN CORPUSCULAR HGB CONC 35.9 g/dl (32.0-37.0); MEAN CORPUSCULAR VOLUME 91.8 fl (82.0-101.0); MEAN PLATELET VOLUME 11.7 fl (7.4-10.4); PLATELET COUNT 36 10^3/UL (140-415); RED BLOOD COUNT 2.82 10^6/ul (4.70-6.10); RED CELL DISTRIBUTION WIDTH 15.9 % (11.5-14.5); WHITE BLOOD COUNT 22.1 10^3/ul (4.8-10.8)
[2016-08-07 06:32] LABS: CALCIUM 9.1 mg/dl (8.4-10.2); MAGNESIUM 2.2 mg/dl (1.7-2.5); PHOSPHORUS 3.3 mg/dl (2.5-4.9); POTASSIUM 3.9 mmol/L (3.5-5.1)
[2016-08-07 07:07] LABS: CREATININE 3.37 mg/dl (0.61-1.24)
--- NOTE | 2016-08-07 07:19 | RADRPT ---
PROCEDURE: XR Chest. CLINICAL INDICATION: pain TECHNIQUE: Single portable view of the chest was obtained COMPARISON: Yesterday FINDINGS: There is mild cardiomegaly with slightly decreased pulmonary vascular congestion. There are decreas ed bilateral upper lobe and lower lobe infiltrates.. The heart, lungs and mediastinum are otherwise unchanged. There is an endotracheal tube, nasogastric tube in appropriate position.. RPTAT: AA IMPRESSION: Mild cardiomegaly with decreased pulmonary vascular congestion. Decreased bilateral upper lobe and lower lobe infiltrates. No other significant change. .Ryan Fu MD, MD Date Time Electronically viewed and signed by .Ryan Fu MD, MD on 08/07/2016 07:19 .S/
[2016-08-07 07:57] LABS: AADO2 Arterial 469.1 mmHg (7.0-24.0); Allen Test ACCEPTAB; Arterial Base Excess -4.4 mmol/L (-3.0-3); Arterial COHb 0.3 % (0.0-3.0); Arterial Fraction of Oxyhgb 91.6 % (93.0-99.0); Arterial HCO3 19.1 mmol/L (22.0-26.0); Arterial MetHb 0.2 % (0.0-1.5); Arterial Total Hemglobin 10.2 g/dl (12.0-18.0); MODE VENT - AC
[2016-08-07] MEDS: PROPOFOL 100 ML IV SCH ×2 (08:24→21:09)
--- NOTE | 2016-08-07 08:44 | PN ---
DATE: 08/07/2016 SUBJECTIVE: The patient remains critically ill on pressor support, although being weaned off. The patient remains on ventilatory support. The patient is becoming more alert, opening eyes. Urinary output is mildly improving. No other events noted. OBJECTIVE: VITAL SIGNS: Blood pressure is 128/100, respirations 30, pulse 77, temperature 98.6. HEENT: Head is normocephalic. Pupils are reactive to light. NECK: Supple. HEART: Regular rate. LUNGS: Show diminished breath sounds at base. Positive rhonchi and crackles. ABDOMEN: Soft, obese, nontender to palpation. EXTREMITIES: Negative for clubbing, cyanosis. Positive edema. DERMATOLOGIC: No rashes. MUSCULOSKELETAL: No joint effusions. NEUROLOGIC: No change in exam. MEDICATIONS: The patient's medications have been reviewed. LABORATORY DATA: Shows sodium 141, potassium , chloride 102, BUN 59, creatinine 3.37. White c ount 22, hemoglobin 9.3, hematocrit 25.9, platelet count is 36. IMAGING: Chest x-ray shows decreased pulmonary vascular congestion and decreased upper and lower lo be infiltrates, no other significant change. Cultures have been reviewed. C. diff was negative. ASSESSMENT AND PLAN: 1. Oliguric acute kidney injury with unknown baseline creatinine. Etiology secondary to acute tubu lar necrosis due to septic shock. The patient is currently dialysis dependent. Will continue to mo nitor for signs of renal recovery. Plan for dialysis today for solute clearance and volume removal. Will dialyze for 3 hours, 4K bath, calcium 2.5, ultrafiltrate as tolerated. 2. Respiratory alkalosis. The patient's ABG is reviewed. Continue to observe. No need for interv ention. 3. Anemia. Continue to monitor H and H levels. The patient is status post 2 units of PRBC with he modialysis. We will give Epogen as needed. 4. Mineral bone disorder. The patient is currently normophosphatemic. Calcium levels have also no rmalized. Continue to monitor. 5. Volume overload secondary to congestive heart failure. The patient is near euvolemic status. C ontinue ultrafiltration dialysis. 6. Respiratory failure. Vent settings have been reviewed. ABG is reviewed. The patient may have underlying ARDS. Continue to monitor. Follow up with pulmonary. 7. Septic shock. The patient remains on broad spectrum antibiotics, on pressors, is being weaned o ff slowly. Continue to monitor. Monitor ultrafiltration with dialysis closely. 8. Status post cardiopulmonary arrest. Continue medical management. 9. Acute encephalopathy, etiology is toxic metabolic. 10. Hypothyroidism. Continue Synthroid. 11. Hypomagnesemia, improved. Continue to observe and replete as needed. 12. Hyponatremia, resolved. Lactic acidosis secondary to shock, will repeat a lactic acid level. Dictated By: BALDOMERO HARRINGTON DO NR/NTS Conf#: [id number] DID#: [id number]
--- NOTE | 2016-08-07 09:46 | CONS ---
Date/Time of Note Date/Time of Note DATE: 08/07/16 TIME: 09:43 Assessment/Plan Assessment/Plan Chief Complaint/Hosp Course PEA cardiac arrest: secondary to severe metabolic acidosis. No VT/VF or EKG changes to suggest primary cardiac etiology. Trops ok, EF preserved. Acute respiratory failure: intubated during code.Likely ARDS. Not much improvement so fr Severe metabolic acidosis: likely was the culprit for the arrest. HD started Shock: ?septic.Off pressors Acute renal failure: unclear etiology now on HD, making some urine Hypoglycemia Hypothyroidism Diarrhea/n/v/colitis -vent management per pulm -HD per nephro Problems: Consultation Date/Type/Reason Admit Date/Time August 01, 2016 at 00:50 Initial Consult Date 08/01/16 Type of Consultation: Cardiology Referring Provider: NIKOLE KWON MD, [facility] 24 HR Interval Summary Free Text/Dictation Off levophed. FiO2 increased to 80%, PEEP 12. Opens eyes and follows commands Exam/Review of Systems Vital Signs Vitals Vital Signs Date Time Temp Pulse Resp B/P Pulse Ox O2 Delivery O2 Flow Rate FiO2 08/07/16 06:30 77 30 128/100 93 08/07/16 06:15 Mechanical Ventilator 08/07/16 05:18 80 08/07/16 04:00 98.0 Intake and Output 08/06/16 08/06/16 08/07/16 15:00 23:00 07:00 Intake Total 845.0 ml 797.2 ml 389.9 ml Output Total 35 ml 3610 ml 30 ml Balance 810.0 ml -2812.8 ml 359.9 ml Exam Constitutional: No alert (sedated but responsive ) Head: atraumatic, normocephalic Neck: No jvd (cant examine) Respiratory: diminished breath sounds, No clear to auscultation Cardiovascular: edema (1+), regular rate and rhythm Gastrointestinal: non-tender, soft Extremities: normal pulses Neurological: No nl mental status Results Result Diagram: 08/07/16 0400 08/07/16 0400 Results 24 hrs Laboratory Tests Test 08/06/16 11:43 08/06/16 20:50 08/07/16 00:16 08/07/16 04:00 Bedside Glucose 115 134 135 White Blood Count 22.1 #H Red Blood Count 2.82 #L Hemoglobin 9.3 L Hematocrit 25.9 #L Mean Corpuscular Volume 91.8 Mean Corpuscular Hemoglobin 33.0 Mean Corpuscular Hemoglobin Concent 35.9 Red Cell Distribution Width 15.9 H Platelet Count 36 #L Mean Platelet Volume 11.7 H Neutrophils % Lymphocytes % Monocytes % Eosinophils % Neutrophils # Lymphocytes # Monocytes # Eosinophils # Sodium Level 141 Potassium Level 3.9 Chloride Level 102 Carbon Dioxide Level 23 Anion Gap 20 H Blood Urea Nitrogen 59 H Creatinine 3.37 H Glucose Level 101 Calcium Level 9.1 Phosphorus Level 3.3 Magnesium Level 2.2 Free Thyroxine 0.34 L Test 08/07/16 04:44 08/07/16 04:59 08/07/16 07:00 08/07/16 08:13 Bedside Glucose 110 119 Lab Scanned Report BLOOD TRANSFUSION Blood Gas Specimen Source Blood arterial Arterial Blood Date Drawn 08/07/2016 7:30:33 AM Arterial Blood pH (Temp corrected) 7.426 Arterial Blood pCO2 (Temp correct) 29.7 L Arterial Blood pO2 (Temp corrected) 70.1 L Arterial Blood HCO3 19.1 L Arterial Blood Base Excess -4.4 L Arterial Blood Oxygen Saturation 92.1 L Stanley Test ACCEPTAB Arterial Blood Gas Puncture Site Right Radial Arterial Blood Carboxyhemoglobin 0.3 Arterial Blood Methemoglobin 0.2 Blood Gas A-a O2 Differential 469.1 H Oxyhemoglobin Percent 91.6 L Total Hemoglobin 10.2 L Blood Gas Temperature 37.0 Blood Gas Respiration Rate 30.0 Blood Gas Actual Respiration Rate 30 Blood Gas Modality VENT - AC FiO2 80.0 Blood Gas Tidal Volume 570.0 Blood Gas Low PEEP Setting 12.0 Blood Gas Notified Whom JLD Blood Gas Notified Time 08/07/2016 7:57:15 AM Medications Medications Current Medications Lorazepam (Ativan) 0.5 mg Q6H PRN IV ANXIETY Last administered on 08/03/16t 21: 06; Admin Dose 0.5 MG; Start 08/01/16 at 03:00 Ondansetron HCl (Zofran Inj) 4 mg Q6H PRN IV NAUSEA AND/OR VOMITING; Start at 03:00 Metoclopramide HCl (Reglan) 10 mg Q6H PRN IV NAUSEA AND/OR VOMITING; Start at 03:00 Acetaminophen (Tylenol Tab) 650 mg Q6H PRN PO PAIN LEVEL 1-3 OR FEVER; Start at 03:00 Acetaminophen (Tylenol Supp) 650 mg Q4H PRN IN PAIN LEVEL 1-3 OR FEVER; Start 08/01/16 at 06:30 Pantoprazole 40 mg 40 mg BID@06,18 IV Last administered on 08/07/16 05:08; Admin Dose 40 MG; Start 08/01/16 at 06:00 Propofol 100 ml @ 3.33 mls/hr Q12H IV Last administered on 08/02/16 09:30; Admin Dose 26.64 MLS/HR; Start 08/01/16 at 09:30 Phenylephrine HCl 40 mg/Dextrose 500 ml @ 0 mls/hr TITRATE IV Last administered on 08/02/16 04:58; Admin Dose 112.5 MLS/HR; Start 08/01/16 at 16:00 Norepinephrine 16 mg/Dextrose 500 ml @ 0 mls/hr TITRATE IV Last administered on 08/06/16 00:10; Admin Dose 30 MLS/HR; Start 08/01/16 at 16:00 Vasopressin 60 unit/Dextrose 60 ml @ 1.2 mls/hr Q12H IV Last administered on 03:55; Admin Dose 2.4 MLS/HR; Start 08/01/16 at 17:30 Epinephrine/ Sodium Chloride (EPINEPHrine/NS) 250 ml @ 3.75 mls/hr TITRATE IV Last administered on 08/01/16 18:50; Admin Dose 3.75 MLS/HR; Start 08/01/16 at 19:30 Eye Lubricant (Artificial Tears Oph) 2 drop QID BOTH EYES Last administered on 08/06/16 21:11; Admin Dose 2 DROP; Start 08/02/16 at 09:00 Insulin Aspart (Novolog Insulin Pen) NOVOLOG *MODERATE* ALGORI... Q4 SC Last administered on 08/06/16 05:48; Admin Dose 2 UNIT; Start 08/02/16 at 09:00 Miscellaneous Information 1 ea NOTE XX ; Start 08/02/16 at 09:00 Glucose (Glutose) 15 gm Q15M PRN PO DECREASED GLUCOSE; Start 08/02/16 at 09:00 Glucose (Glutose) 22.5 gm Q15M PRN PO DECREASED GLUCOSE; Start 08/02/16 at 09:00 Dextrose (D50w Syringe) 25 ml Q15M PRN IV DECREASED GLUCOSE; Start 08/02/16 at 09:00 Dextrose (D50w Syringe) 50 ml Q15M PRN IV DECREASED GLUCOSE; Start 08/02/16 at 09:00 Glucagon (Glucagen) 1 mg Q15M PRN IM DECREASED GLUCOSE; Start 08/02/16 at 09:00 Glucose 15 gm 15 gm Q15M PRN BUCCAL DECREASED GLUCOSE; Start 08/02/16 at 09:00 Midazolam HCl 50 ml @ 1 mls/hr TITRATE IV Last administered on 08/03/16 04:30; Admin Dose 10 MLS/HR; Start 08/02/16 at 09:30 Fentanyl (Sublimaze) 100 ml @ 2.5 mls/hr TITRATE IV Last administered on 04:45; Admin Dose 10 MLS/HR; Start 08/02/16 at 09:30 Calcium Carbonate (Ca Carbonate) 1,250 mg Q6 NGT Last administered on 08/07/16 05:19; Admin Dose 1,250 MG; Start 08/03/16 at 12:00 Levothyroxine Sodium (Synthroid) 100 mcg DAILY@06 NGT Last administered on 05:08; Admin Dose 100 MCG; Start 08/04/16 at 06:00 Insulin Human NPH 12 unit 12 unit Q6 SC Last administered on 08/07/16 05:12; Admin Dose 12 UNIT; Start 08/03/16 at 12:00 Metronidazole 100 ml @ 100 mls/hr Q8 IVPB Last administered on 08/07/16 05:08 ; Admin Dose 100 MLS/HR; Start 08/03/16 at 10:00 Piperacillin Sod/ Tazobactam Sod (Zosyn 3.375gm/ 100 ml (Pmx)) 100 ml @ 200 mls /hr Q8 IVPB Last administered on 08/07/16 05:08; Admin Dose 200 MLS/HR; Start 08/03/16 at 14:00 Methylprednisolone Sodium Succinate 40 mg 40 mg Q12 IV Last administered on 08/06 21:10; Admin Dose 40 MG; Start 08/05/16 at 21:00 Vancomycin HCl/ Sodium Chloride (Vancocin/NS) 250 ml @ 83.333 mls/ hr Q96H IVPB Last administered on 08/06/16t 16:00; Admin Dose 83.333 MLS/HR; Start at 16:00 SEPIDEH HAN Aug 07, 2016 09:46
--- NOTE | 2016-08-07 09:48 | CONS ---
Date/Time of Note Date/Time of Note DATE: 08/07/16 TIME: 09:43 Consult Date/Type/Reason Admit Date/Time August 01, 2016 at 00:50 Initial Consult Date 08/01/16 Type of Consultation: Pulmonary Ordering Provider: NIKOLE KWON MD, [facility] Subjective off Vasopressors Continues mechanical ventilation, FiO2 of 80% with a PEEP of 12 Pending hemodialysis Opens eyes follows simple commands. Objective Vital Signs Date Time Temp Pulse Resp B/P Pulse Ox O2 Delivery O2 Flow Rate FiO2 08/07/16 06:30 77 30 128/100 93 08/07/16 06:15 Mechanical Ventilator 08/07/16 05:18 80 08/07/16 04:00 98.0 Intake and Output 08/06/16 08/06/16 08/07/16 15:00 23:00 07:00 Intake Total 845.0 ml 797.2 ml 389.9 ml Output Total 35 ml 3610 ml 30 ml Balance 810.0 ml -2812.8 ml 359.9 ml Exam PHYSICAL EXAMINATION: GENERAL: Moderately obese gentleman, intubated on mechanical ventilation, VITAL SIGNS: NECK: Supple. No JVD or lymphadenopathy. Conjunctival edema CARDIAC: S1, S2, no added sounds or murmurs. CHEST: Diminished air entry bilaterally. ABDOMEN: Soft, nontender. No guarding, no rebound. EXTREMITIES: No cyanosis, clubbing. Edema +1. NEUROLOGIC: Generalized weakness. Periorbital edema Results/Medications Result Diagram: 08/07/16 0400 08/07/16 0400 Results 24 hrs Chest x-ray Bilateral infiltrates consistent with ARDS Laboratory Tests Test 08/06/16 11:43 08/06/16 20:50 08/07/16 00:16 08/07/16 04:00 Bedside Glucose 115 134 135 White Blood Count 22.1 #H Red Blood Count 2.82 #L Hemoglobin 9.3 L Hematocrit 25.9 #L Mean Corpuscular Volume 91.8 Mean Corpuscular Hemoglobin 33.0 Mean Corpuscular Hemoglobin Concent 35.9 Red Cell Distribution Width 15.9 H Platelet Count 36 #L Mean Platelet Volume 11.7 H Neutrophils % Lymphocytes % Monocytes % Eosinophils % Neutrophils # Lymphocytes # Monocytes # Eosinophils # Sodium Level 141 Potassium Level 3.9 Chloride Level 102 Carbon Dioxide Level 23 Anion Gap 20 H Blood Urea Nitrogen 59 H Creatinine 3.37 H Glucose Level 101 Calcium Level 9.1 Phosphorus Level 3.3 Magnesium Level 2.2 Free Thyroxine 0.34 L Test 08/07/16 04:44 08/07/16 04:59 08/07/16 07:00 08/07/16 08:13 Bedside Glucose 110 119 Lab Scanned Report BLOOD TRANSFUSION Blood Gas Specimen Source Blood arterial Arterial Blood Date Drawn 08/07/2016 7:30:33 AM Arterial Blood pH (Temp corrected) 7.426 Arterial Blood pCO2 (Temp correct) 29.7 L Arterial Blood pO2 (Temp corrected) 70.1 L Arterial Blood HCO3 19.1 L Arterial Blood Base Excess -4.4 L Arterial Blood Oxygen Saturation 92.1 L Stanley Test ACCEPTAB Arterial Blood Gas Puncture Site Right Radial Arterial Blood Carboxyhemoglobin 0.3 Arterial Blood Methemoglobin 0.2 Blood Gas A-a O2 Differential 469.1 H Oxyhemoglobin Percent 91.6 L Total Hemoglobin 10.2 L Blood Gas Temperature 37.0 Blood Gas Respiration Rate 30.0 Blood Gas Actual Respiration Rate 30 Blood Gas Modality VENT - AC FiO2 80.0 Blood Gas Tidal Volume 570.0 Blood Gas Low PEEP Setting 12.0 Blood Gas Notified Whom JLD Blood Gas Notified Time 08/07/2016 7:57:15 AM Medications Current Medications Lorazepam (Ativan) 0.5 mg Q6H PRN IV ANXIETY Last administered on 08/03/16 21: 06; Admin Dose 0.5 MG; Start 08/01/16 at 03:00 Ondansetron HCl (Zofran Inj) 4 mg Q6H PRN IV NAUSEA AND/OR VOMITING; Start at 03:00 Metoclopramide HCl (Reglan) 10 mg Q6H PRN IV NAUSEA AND/OR VOMITING; Start at 03:00 Acetaminophen (Tylenol Tab) 650 mg Q6H PRN PO PAIN LEVEL 1-3 OR FEVER; Start at 03:00 Acetaminophen (Tylenol Supp) 650 mg Q4H PRN [place] PAIN LEVEL 1-3 OR FEVER; Start 08/01/16 at 06:30 Pantoprazole 40 mg 40 mg BID@06,18 IV Last administered on 08/07/16 05:08; Admin Dose 40 MG; Start 08/01/16 at 06:00 Propofol 100 ml @ 3.33 mls/hr Q12H IV Last administered on 08/02/16 09:30; Admin Dose 26.64 MLS/HR; Start 08/01/16 at 09:30 Phenylephrine HCl 40 mg/Dextrose 500 ml @ 0 mls/hr TITRATE IV Last administered on 08/02/16 04:58; Admin Dose 112.5 MLS/HR; Start 08/01/16 at 16:00 Norepinephrine 16 mg/Dextrose 500 ml @ 0 mls/hr TITRATE IV Last administered on 08/06/16 00:10; Admin Dose 30 MLS/HR; Start 08/01/16 at 16:00 Vasopressin 60 unit/Dextrose 60 ml @ 1.2 mls/hr Q12H IV Last administered on 03:55; Admin Dose 2.4 MLS/HR; Start 08/01/16 at 17:30 Epinephrine/ Sodium Chloride (EPINEPHrine/NS) 250 ml @ 3.75 mls/hr TITRATE IV Last administered on 08/01/16 18:50; Admin Dose 3.75 MLS/HR; Start 08/01/16 at 19:30 Eye Lubricant (Artificial Tears Oph) 2 drop QID BOTH EYES Last administered on 08/06/16 21:11; Admin Dose 2 DROP; Start 08/02/16 at 09:00 Insulin Aspart (Novolog Insulin Pen) NOVOLOG *MODERATE* ALGORI... Q4 SC Last administered on 08/06/16 05:48; Admin Dose 2 UNIT; Start 08/02/16 at 09:00 Miscellaneous Information 1 ea NOTE XX ; Start 08/02/16 at 09:00 Glucose (Glutose) 15 gm Q15M PRN PO DECREASED GLUCOSE; Start 08/02/16 at 09:00 Glucose (Glutose) 22.5 gm Q15M PRN PO DECREASED GLUCOSE; Start 08/02/16 at 09:00 Dextrose (D50w Syringe) 25 ml Q15M PRN IV DECREASED GLUCOSE; Start 08/02/16 at 09:00 Dextrose (D50w Syringe) 50 ml Q15M PRN IV DECREASED GLUCOSE; Start 08/02/16 at 09:00 Glucagon (Glucagen) 1 mg Q15M PRN IM DECREASED GLUCOSE; Start 08/02/16 at 09:00 Glucose 15 gm 15 gm Q15M PRN BUCCAL DECREASED GLUCOSE; Start 08/02/16 at 09:00 Midazolam HCl 50 ml @ 1 mls/hr TITRATE IV Last administered on 08/03/16 04:30; Admin Dose 10 MLS/HR; Start 08/02/16 at 09:30 Fentanyl (Sublimaze) 100 ml @ 2.5 mls/hr TITRATE IV Last administered on 04:45; Admin Dose 10 MLS/HR; Start 08/02/16 at 09:30 Calcium Carbonate (Ca Carbonate) 1,250 mg Q6 NGT Last administered on 08/07/16 05:19; Admin Dose 1,250 MG; Start 08/03/16 at 12:00 Levothyroxine Sodium (Synthroid) 100 mcg DAILY@06 NGT Last administered on 05:08; Admin Dose 100 MCG; Start 08/04/16 at 06:00 Insulin Human NPH 12 unit 12 unit Q6 SC Last administered on 08/07/16 05:12; Admin Dose 12 UNIT; Start 08/03/16 at 12:00 Metronidazole 100 ml @ 100 mls/hr Q8 IVPB Last administered on 08/07/16 05:08 ; Admin Dose 100 MLS/HR; Start 08/03/16 at 10:00 Piperacillin Sod/ Tazobactam Sod (Zosyn 3.375gm/ 100 ml (Pmx)) 100 ml @ 200 mls /hr Q8 IVPB Last administered on 08/07/16 05:08; Admin Dose 200 MLS/HR; Start 08/03/16 at 14:00 Methylprednisolone Sodium Succinate 40 mg 40 mg Q12 IV Last administered on 08/06 21:10; Admin Dose 40 MG; Start 08/05/16 at 21:00 Vancomycin HCl/ Sodium Chloride (Vancocin/NS) 250 ml @ 83.333 mls/ hr Q96H IVPB Last administered on 08/06/16 16:00; Admin Dose 83.333 MLS/HR; Start at 16:00 Assessment/Plan Chief Complaint/Hosp Course IMPRESSION 1. Acute renal failure with severe metabolic acidosis, etiology of which remains unclear, possible acute tubular necrosis injury versus prerenal. 2. Respiratory failure secondary to significant metabolic acidosis and subsequent cardiac arrest. ARDS radiographically. 3. Severe hypothyroidism 4. History of ETOH. 5. Septic shock requiring vasopressors. Transfuse packed red blood cells with hemodialysis 6. Acute anemia possibly underlying GI bleed status post packed red cell transfusion 7. Insulin-dependent diabetes 8. Dysphagia secondary to above PLAN: 1. Severe metabolic acidosis corrected with hemodialysis and bicarbonate 2. Renal consult. Continue hemodialysis as tolerated 3. Endocrinology consult. Appreciated 4. Continue vasopressors decreased as tolerated 5. DVT and GI prophylaxis. 6. Continue antibiotics 7. Continue decreased steroids 8. Continue insulin will need adjustment given decrease in steroid dose 9. Continue nasogastric tube feeding as tolerated Overall prognosis remains guarded Problems: NIKOLE KWON MD, [facility] Aug 07, 2016 09:48
[2016-08-07 10:24] LABS: LYMPHOCYTES # 2.7 10^3/ul (0.8-2.9); MONOCYTE # 0.9 10^3/ul (0.3-0.9); MYELOCYTES # 0.2; NEUTROPHIL # 14.4 10^3/ul (1.6-7.5); PLATELET ESTIMATE PLT APPEAR DECREASED
[2016-08-07] MEDS ORDERED: HEPARIN 1000 UNITS/ML 10 ML INJ CATHETER SCH (11:00)
[2016-08-07] MEDS: ARTIFICIAL TEARS 15 ML OPH BOTH EYES SCH ×3 (13:00→21:03)
--- NOTE | 2016-08-07 14:27 | PN ---
Date/Time of Note Date/Time of Note DATE: 08/07/16 TIME: 14:26 Assessment/Plan VTE Prophylaxis VTE Prophylaxis Intervention: SCD's Assessment/Plan Chief Complaint/Hosp Course 1. Status post cardiac arrest with ROSC 2/2 severe meatbolic acidosis from #4 2. Acute encephalopathy secondary to #1 [toxic metabolic] 3. Ventilator dependent respiratory failure with probable ARDS and pulmonary edema per pulmonary 4. Severe acute renal failure now on hemodialysis with unknown baseline thought to be secondary to severe ATN 5. Severe Sepsis with septic shock and lactic acidosis on pressors 6. Newly diagnosed Hypothyroidism 7. Chronic Alcohol use and abuse 8. Anemia likely secondary to chronic disease but a component of malnutrition from chronic alcohol abuse 9. Enterocolitis 10. Thrombocytopenia which could be as a result of liver disease, will have to rule out heparin-induced thrombocytopenia 11. Severe fatty liver with Transaminitis and mild hyperbilirubinemia indicating a measure of chronic liver disease vs shock liver 12. Bilateral pneumonia likely aspiration 13. Coagulase neg Staph UTI 14. Hypophosphatemia 15. Steroid-induced hyperglycemia vs type 2 DM requiring low-dose Lantus and NPH 16. Positive stool occult blood on twice daily PPI PLAN: Continue broad-spectrum antibiotics with IV vancomycin and Zosyn, cultures are insignificant at this time Continue to wean pressors Continue hemodialysis per nephrology Continue vent management and weaning Endocrinology managing sugars and thyroid profile Continue serial electrolyte monitoring and replenishment Continue supportive ICU care Prophylaxis : SCDS / PPI Problems: Subjective 24 Hr Interval Summary Subjective hx not possible: pt non-verbal Exam/Review of Systems Vital Signs Vitals Vital Signs Date Time Temp Pulse Resp B/P Pulse Ox O2 Delivery O2 Flow Rate FiO2 08/07/16 14:00 80 30 106/81 94 Mechanical Ventilator 08/07/16 12:00 99.0 08/07/16 05:18 80 Intake and Output 08/06/16 08/06/16 08/07/16 15:00 23:00 07:00 Intake Total 845.0 ml 797.2 ml 399.9 ml Output Total 35 ml 3610 ml 30 ml Balance 810.0 ml -2812.8 ml 369.9 ml Exam Constitutional: non-verbal Respiratory: clear to auscultation Cardiovascular: regular rate and rhythm Gastrointestinal: soft, No distended Musculoskeletal: nl extremities to inspection Results Result Diagram: 08/07/16 0400 08/07/16 0400 Results 24 hrs Laboratory Tests Test 08/06/16 20:50 08/07/16 00:16 08/07/16 04:00 08/07/16 04:44 Bedside Glucose 134 135 110 White Blood Count 22.1 #H Red Blood Count 2.82 #L Hemoglobin 9.3 L Hematocrit 25.9 #L Mean Corpuscular Volume 91.8 Mean Corpuscular Hemoglobin 33.0 Mean Corpuscular Hemoglobin Concent 35.9 Red Cell Distribution Width 15.9 H Platelet Count 36 #L Mean Platelet Volume 11.7 H Neutrophils % 65.0 Band Neutrophils % 14.0 H Lymphocytes % 12.0 L Monocytes % 4.0 Eosinophils % Metamyelocytes % 4.0 H Myelocytes % 1.0 H Nucleated Red Blood Cells % 5.0 H Neutrophils # 14.4 H Lymphocytes # 2.7 Monocytes # 0.9 Eosinophils # Metamyelocytes # 0.9 Myelocytes # 0.2 Platelet Estimate PLT APPEAR DECREASED Sodium Level 141 Potassium Level 3.9 Chloride Level 102 Carbon Dioxide Level 23 Anion Gap 20 H Blood Urea Nitrogen 59 H Creatinine 3.37 H Glucose Level 101 Calcium Level 9.1 Phosphorus Level 3.3 Magnesium Level 2.2 Free Thyroxine 0.34 L Test 08/07/16 04:59 08/07/16 07:00 08/07/16 08:13 08/07/16 09:20 Lab Scanned Report BLOOD TRANSFUSION Blood Gas Specimen Source Blood arterial Arterial Blood Date Drawn 08/07/2016 7:30:33 AM Arterial Blood pH (Temp corrected) 7.426 Arterial Blood pCO2 (Temp correct) 29.7 L Arterial Blood pO2 (Temp corrected) 70.1 L Arterial Blood HCO3 19.1 L Arterial Blood Base Excess -4.4 L Arterial Blood Oxygen Saturation 92.1 L Stanley Test ACCEPTAB Arterial Blood Gas Puncture Site Right Radial Arterial Blood Carboxyhemoglobin 0.3 Arterial Blood Methemoglobin 0.2 Blood Gas A-a O2 Differential 469.1 H Oxyhemoglobin Percent 91.6 L Total Hemoglobin 10.2 L Blood Gas Temperature 37.0 Blood Gas Respiration Rate 30.0 Blood Gas Actual Respiration Rate 30 Blood Gas Modality VENT - AC FiO2 80.0 Blood Gas Tidal Volume 570.0 Blood Gas Low PEEP Setting 12.0 Blood Gas Notified Whom BRIGHTD Blood Gas Notified Time 08/07/2016 7:57:15 AM Bedside Glucose 119 Lactic Acid Level 2.4 H Medications Medications Current Medications Lorazepam (Ativan) 0.5 mg Q6H PRN IV ANXIETY Last administered on 08/03/16 21: 06; Admin Dose 0.5 MG; Start 08/01/16 at 03:00 Ondansetron HCl (Zofran Inj) 4 mg Q6H PRN IV NAUSEA AND/OR VOMITING; Start at 03:00 Metoclopramide HCl (Reglan) 10 mg Q6H PRN IV NAUSEA AND/OR VOMITING; Start at 03:00 Acetaminophen (Tylenol Tab) 650 mg Q6H PRN PO PAIN LEVEL 1-3 OR FEVER; Start at 03:00 Acetaminophen (Tylenol Supp) 650 mg Q4H PRN [place] PAIN LEVEL 1-3 OR FEVER; Start 08/01/16 at 06:30 Pantoprazole 40 mg 40 mg BID@06,18 IV Last administered on 08/07/16 05:08; Admin Dose 40 MG; Start 08/01/16 at 06:00 Propofol 100 ml @ 3.33 mls/hr Q12H IV Last administered on 08/02/16 09:30; Admin Dose 26.64 MLS/HR; Start 08/01/16 at 09:30 Phenylephrine HCl 40 mg/Dextrose 500 ml @ 0 mls/hr TITRATE IV Last administered on 08/02/16 04:58; Admin Dose 112.5 MLS/HR; Start 08/01/16 at 16:00 Norepinephrine 16 mg/Dextrose 500 ml @ 0 mls/hr TITRATE IV Last administered on 08/06/16 00:10; Admin Dose 30 MLS/HR; Start 08/01/16 at 16:00 Vasopressin 60 unit/Dextrose 60 ml @ 1.2 mls/hr Q12H IV Last administered on 03:55; Admin Dose 2.4 MLS/HR; Start 08/01/16 at 17:30 Epinephrine/ Sodium Chloride (EPINEPHrine/NS) 250 ml @ 3.75 mls/hr TITRATE IV Last administered on 08/01/16 18:50; Admin Dose 3.75 MLS/HR; Start 08/01/16 at 19:30 Eye Lubricant (Artificial Tears Oph) 2 drop QID BOTH EYES Last administered on 08/07/16 13:00; Admin Dose 2 DROP; Start 08/02/16 at 09:00 Insulin Aspart (Novolog Insulin Pen) NOVOLOG *MODERATE* ALGORI... Q4 SC Last administered on 08/06/16 05:48; Admin Dose 2 UNIT; Start 08/02/16 at 09:00 Miscellaneous Information 1 ea NOTE XX ; Start 08/02/16 at 09:00 Glucose (Glutose) 15 gm Q15M PRN PO DECREASED GLUCOSE; Start 08/02/16 at 09:00 Glucose (Glutose) 22.5 gm Q15M PRN PO DECREASED GLUCOSE; Start 08/02/16 at 09:00 Dextrose (D50w Syringe) 25 ml Q15M PRN IV DECREASED GLUCOSE; Start 08/02/16 at 09:00 Dextrose (D50w Syringe) 50 ml Q15M PRN IV DECREASED GLUCOSE; Start 08/02/16 at 09:00 Glucagon (Glucagen) 1 mg Q15M PRN IM DECREASED GLUCOSE; Start 08/02/16 at 09:00 Glucose 15 gm 15 gm Q15M PRN BUCCAL DECREASED GLUCOSE; Start 08/02/16 at 09:00 Midazolam HCl 50 ml @ 1 mls/hr TITRATE IV Last administered on 08/03/16 04:30; Admin Dose 10 MLS/HR; Start 08/02/16 at 09:30 Fentanyl (Sublimaze) 100 ml @ 2.5 mls/hr TITRATE IV Last administered on 04:45; Admin Dose 10 MLS/HR; Start 08/02/16 at 09:30 Calcium Carbonate (Ca Carbonate) 1,250 mg Q6 NGT Last administered on 08/07/16 12:00; Admin Dose 1,250 MG; Start 08/03/16 at 12:00 Levothyroxine Sodium (Synthroid) 100 mcg DAILY@06 NGT Last administered on 05:08; Admin Dose 100 MCG; Start 08/04/16 at 06:00 Insulin Human NPH 12 unit 12 unit Q6 SC Last administered on 08/07/16 14:15; Admin Dose 12 UNIT; Start 08/03/16 at 12:00 Metronidazole 100 ml @ 100 mls/hr Q8 IVPB Last administered on 08/07/16 14:16 ; Admin Dose 100 MLS/HR; Start 08/03/16 at 10:00 Piperacillin Sod/ Tazobactam Sod 100 ml @ 200 mls/hr Q8 IVPB Last administered on 08/07/16 14:16; Admin Dose 200 MLS/HR; Start 08/03/16 at 14:00 Vancomycin HCl/ Sodium Chloride (Vancocin/NS) 250 ml @ 83.333 mls/ hr Q96H IVPB Last administered on 08/06/16 16:00; Admin Dose 83.333 MLS/HR; Start at 16:00 Methylprednisolone Sodium Succinate (Solu-Medrol) 40 mg DAILY IV ; Start at 09:00 Heparin Sodium (Porcine) (Heparin (1000 Units/ml)) 4,000 unit ONCE CATHETER ; Start 08/07/16 at 11:00; Stop 08/08/16 at 10:59 SANYA SMILEY Aug 07, 2016 14:27
--- NOTE | 2016-08-07 17:03 | CONS ---
Date/Time of Note Date/Time of Note DATE: 08/07/16 TIME: 17:01 Assessment/Plan Assessment/Plan Chief Complaint/Hosp Course 60-year-old right-handed -[place] gentleman normally cared for at the [facility] system. He was admitted to the hospital but it had cardiac arrest in the hospital. Please note that his picture actually looked a bit like adrenal insufficiency except that he has a serum cortisol level of 44 prior to his arrest. He had a TSH of 21 with a low free T4 and a low T3. Patient is intubated and unable to give a history although he is able to look and follows rudimentary commands. At this time many of his metabolic abnormalities have improved. Problems: (1) Hypothyroidism Status: Chronic Comment: His free T4 is still pretty low. I do not believe this is due to a low protein state. We will increase his dosage of levothyroxine replacement therapy. Qualifiers: Hypothyroidism type: acquired Qualified Code: E03.9 - Acquired hypothyroidism (2) Hypocalcemia Status: Resolved Comment: Resolved although he remains on calcium supplementation enterally (3) Hyperglycemia Status: Acute Comment: Well-controlled with current regimen. Please see my notes from prior days (4) High anion gap metabolic acidosis Status: Resolved Comment: Resolved. (5) Acute kidney injury Status: Acute Comment: Remains on hemodialysis. Consultation Date/Type/Reason Admit Date/Time August 01, 2016 at 00:50 Initial Consult Date 08/01/16 Type of Consultation: Endocrinology Reason for Consultation Hypothyroidism; hypocalcemia; high anion gap metabolic acidosis now resolved Referring Provider: NIKOLE KWON MD, [facility] 24 HR Interval Summary Free Text/Dictation Intubated Subjective hx not possible: pt critical status Exam/Review of Systems Vital Signs Vitals Vital Signs Date Time Temp Pulse Resp B/P Pulse Ox O2 Delivery O2 Flow Rate FiO2 08/07/16 16:00 78 08/07/16 15:28 30 94 80 08/07/16 14:00 106/81 Mechanical Ventilator 08/07/16 12:00 99.0 Intake and Output 08/06/16 08/06/16 08/07/16 15:00 23:00 07:00 Intake Total 845.0 ml 797.2 ml 399.9 ml Output Total 35 ml 3610 ml 30 ml Balance 810.0 ml -2812.8 ml 369.9 ml Exam Patient responds to spoken words follows commands poorly. He however is clearly more awake than he was yesterday Respiratory: clear to auscultation, normal air movement Cardiovascular: nl pulses, regular rate and rhythm Gastrointestinal: nl liver, spleen, non-tender, soft Results Result Diagram: 08/07/16 0400 08/07/16 0400 Results 24 hrs Laboratory Tests Test 08/06/16 20:50 08/07/16 00:16 08/07/16 04:00 08/07/16 04:44 Bedside Glucose 134 135 110 White Blood Count 22.1 #H Red Blood Count 2.82 #L Hemoglobin 9.3 L Hematocrit 25.9 #L Mean Corpuscular Volume 91.8 Mean Corpuscular Hemoglobin 33.0 Mean Corpuscular Hemoglobin Concent 35.9 Red Cell Distribution Width 15.9 H Platelet Count 36 #L Mean Platelet Volume 11.7 H Neutrophils % 65.0 Band Neutrophils % 14.0 H Lymphocytes % 12.0 L Monocytes % 4.0 Eosinophils % Metamyelocytes % 4.0 H Myelocytes % 1.0 H Nucleated Red Blood Cells % 5.0 H Neutrophils # 14.4 H Lymphocytes # 2.7 Monocytes # 0.9 Eosinophils # Metamyelocytes # 0.9 Myelocytes # 0.2 Platelet Estimate PLT APPEAR DECREASED Sodium Level 141 Potassium Level 3.9 Chloride Level 102 Carbon Dioxide Level 23 Anion Gap 20 H Blood Urea Nitrogen 59 H Creatinine 3.37 H Glucose Level 101 Calcium Level 9.1 Phosphorus Level 3.3 Magnesium Level 2.2 Free Thyroxine 0.34 L Test 08/07/16 04:59 08/07/16 07:00 08/07/16 08:13 08/07/16 09:20 Lab Scanned Report BLOOD TRANSFUSION Blood Gas Specimen Source Blood arterial Arterial Blood Date Drawn 08/07/2016 7:30:33 AM Arterial Blood pH (Temp corrected) 7.426 Arterial Blood pCO2 (Temp correct) 29.7 L Arterial Blood pO2 (Temp corrected) 70.1 L Arterial Blood HCO3 19.1 L Arterial Blood Base Excess -4.4 L Arterial Blood Oxygen Saturation 92.1 L Stanley Test ACCEPTAB Arterial Blood Gas Puncture Site Right Radial Arterial Blood Carboxyhemoglobin 0.3 Arterial Blood Methemoglobin 0.2 Blood Gas A-a O2 Differential 469.1 H Oxyhemoglobin Percent 91.6 L Total Hemoglobin 10.2 L Blood Gas Temperature 37.0 Blood Gas Respiration Rate 30.0 Blood Gas Actual Respiration Rate 30 Blood Gas Modality VENT - AC FiO2 80.0 Blood Gas Tidal Volume 570.0 Blood Gas Low PEEP Setting 12.0 Blood Gas Notified Whom JLD Blood Gas Notified Time 08/07/2016 7:57:15 AM Bedside Glucose 119 Lactic Acid Level 2.4 H Medications Medications Current Medications Lorazepam (Ativan) 0.5 mg Q6H PRN IV ANXIETY Last administered on 08/03/16 21: 06; Admin Dose 0.5 MG; Start 08/01/16 at 03:00 Ondansetron HCl (Zofran Inj) 4 mg Q6H PRN IV NAUSEA AND/OR VOMITING; Start at 03:00 Metoclopramide HCl (Reglan) 10 mg Q6H PRN IV NAUSEA AND/OR VOMITING; Start at 03:00 Acetaminophen (Tylenol Tab) 650 mg Q6H PRN PO PAIN LEVEL 1-3 OR FEVER; Start at 03:00 Acetaminophen (Tylenol Supp) 650 mg Q4H PRN MA PAIN LEVEL 1-3 OR FEVER; Start 08/01/16 at 06:30 Pantoprazole 40 mg 40 mg BID@06,18 IV Last administered on 08/07/16 05:08; Admin Dose 40 MG; Start 08/01/16 at 06:00 Propofol 100 ml @ 3.33 mls/hr Q12H IV Last administered on 08/02/16 09:30; Admin Dose 26.64 MLS/HR; Start 08/01/16 at 09:30 Phenylephrine HCl 40 mg/Dextrose 500 ml @ 0 mls/hr TITRATE IV Last administered on 08/02/16 04:58; Admin Dose 112.5 MLS/HR; Start 08/01/16 at 16:00 Norepinephrine 16 mg/Dextrose 500 ml @ 0 mls/hr TITRATE IV Last administered on 08/06/16 00:10; Admin Dose 30 MLS/HR; Start 08/01/16 at 16:00 Vasopressin 60 unit/Dextrose 60 ml @ 1.2 mls/hr Q12H IV Last administered on 03:55; Admin Dose 2.4 MLS/HR; Start 08/01/16 at 17:30 Epinephrine/ Sodium Chloride (EPINEPHrine/NS) 250 ml @ 3.75 mls/hr TITRATE IV Last administered on 08/01/16 18:50; Admin Dose 3.75 MLS/HR; Start 08/01/16 at 19:30 Eye Lubricant (Artificial Tears Oph) 2 drop QID BOTH EYES Last administered on 08/07/16 13:00; Admin Dose 2 DROP; Start 08/02/16 at 09:00 Insulin Aspart (Novolog Insulin Pen) NOVOLOG *MODERATE* ALGORI... Q4 SC Last administered on 08/06/16 05:48; Admin Dose 2 UNIT; Start 08/02/16 at 09:00 Miscellaneous Information 1 ea NOTE XX ; Start 08/02/16 at 09:00 Glucose (Glutose) 15 gm Q15M PRN PO DECREASED GLUCOSE; Start 08/02/16 at 09:00 Glucose (Glutose) 22.5 gm Q15M PRN PO DECREASED GLUCOSE; Start 08/02/16 at 09:00 Dextrose (D50w Syringe) 25 ml Q15M PRN IV DECREASED GLUCOSE; Start 08/02/16 at 09:00 Dextrose (D50w Syringe) 50 ml Q15M PRN IV DECREASED GLUCOSE; Start 08/02/16 at 09:00 Glucagon (Glucagen) 1 mg Q15M PRN IM DECREASED GLUCOSE; Start 08/02/16 at 09:00 Glucose 15 gm 15 gm Q15M PRN BUCCAL DECREASED GLUCOSE; Start 08/02/16 at 09:00 Midazolam HCl 50 ml @ 1 mls/hr TITRATE IV Last administered on 08/03/16 04:30; Admin Dose 10 MLS/HR; Start 08/02/16 at 09:30 Fentanyl (Sublimaze) 100 ml @ 2.5 mls/hr TITRATE IV Last administered on 04:45; Admin Dose 10 MLS/HR; Start 08/02/16 at 09:30 Calcium Carbonate (Ca Carbonate) 1,250 mg Q6 NGT Last administered on 08/07/16 12:00; Admin Dose 1,250 MG; Start 08/03/16 at 12:00 Insulin Human NPH 12 unit 12 unit Q6 SC Last administered on 08/07/16 14:15; Admin Dose 12 UNIT; Start 08/03/16 at 12:00 Metronidazole 100 ml @ 100 mls/hr Q8 IVPB Last administered on 08/07/16 14:16 ; Admin Dose 100 MLS/HR; Start 08/03/16 at 10:00 Piperacillin Sod/ Tazobactam Sod 100 ml @ 200 mls/hr Q8 IVPB Last administered on 08/07/16 14:16; Admin Dose 200 MLS/HR; Start 08/03/16 at 14:00 Vancomycin HCl/ Sodium Chloride (Vancocin/NS) 250 ml @ 83.333 mls/ hr Q96H IVPB Last administered on 08/06/16 16:00; Admin Dose 83.333 MLS/HR; Start at 16:00 Methylprednisolone Sodium Succinate (Solu-Medrol) 40 mg DAILY IV ; Start at 09:00 Heparin Sodium (Porcine) (Heparin (1000 Units/ml)) 4,000 unit ONCE CATHETER ; Start 08/07/16 at 11:00; Stop 08/08/16 at 10:59 Levothyroxine Sodium (Synthroid) 125 mcg DAILY@06 NGT ; Start 08/08/16 at 06:00; Status ERIN TILLEY MD Aug 07, 2016 17:03
[2016-08-07] MEDS: LORAZEPAM 2 MG INJ IV PRN (23:23)
[2016-08-07 23:39] LABS: HEPARIN INDUCED PLATELET AB NEGATIVE (NEGATIVE)
[2016-08-08] VITALS (46 sets, daily range): BP systolic 97–168; BP diastolic 75–121; PULSE 68–90; RESP 14–30
[2016-08-08] MEDS: INSULIN ASPART [NOVOLOG] 3 ML PEN SC SCH ×6 (00:28→21:00)
[2016-08-08] MEDS: CA CARBONATE (250 MG/ML) 5ML CUP NGT SCH ×4 (00:29→17:58)
[2016-08-08] MEDS: FENTAnyl (DRIP) 1000 mcg/100mL 100 ML IV SCH ×3 (00:52→19:54)
[2016-08-08 03:45] LABS: ADD UMIC YES; UR BILIRUBIN (Dip) 2+ (NEGATIVE); UR BLOOD (Dip) 3+ (NEGATIVE); UR COLOR AMBER (YELLOW); UR GLUCOSE (Dip) NEGATIVE (NEGATIVE); UR KETONES (Dip) TRACE (NEGATIVE); UR LEUKOCYTE ESTERASE (Dip) TRACE (NEGATIVE); UR NITRITE (Dip) POSITIVE (NEGATIVE); UR TOTAL PROTEIN (Dip) 2+ (NEGATIVE); UR UROBILINOGEN (Dip) 1.0 E.U./dL (0.1-1.0)
[2016-08-08 03:46] LABS: UR CLARITY CLOUDY (CLEAR)
[2016-08-08 04:13] LABS: ICTOTEST NEGATIVE (NEGATIVE)
[2016-08-08 04:14] LABS: UR BACTERIA MANY; UR SQUAMOUS EPITHELIAL CELL FEW; URINE RBCS >200 /HPF (0)
[2016-08-08] MEDS: VASOPRESSIN 60 UNIT in DEXTROSE 5% 57 ML IV SCH ×2 (05:30→16:38)
[2016-08-08] MEDS: PANTOPRAZOLE 40 MG INJ IV SCH ×2 (05:38→17:58)
[2016-08-08] MEDS: PIPER-TAZO 3.375 GM IV (PMX) 100 ML IVPB SCH ×3 (05:38→21:16)
[2016-08-08] MEDS: metroNIDAZOLE 500 MG/NS (PMX) 100 ML IVPB SCH ×3 (05:39→21:17)
[2016-08-08] MEDS: LEVOTHYROXINE 125 MCG TAB NGT SCH (05:39)
[2016-08-08] MEDS: NPH, HUMAN INSULIN ISOPHANE 3ML VIAL SC SCH ×2 (06:00)
[2016-08-08 06:04] LABS: ADD SCAN DIFF NO
[2016-08-08 06:12] LABS: ABNORMAL IP MESSAGE 1; HEMOGLOBIN 9.4 g/dl (14.0-18.0); MEAN CORPUSCULAR HEMOGLOBIN 33.2 pg (29.0-33.0); MEAN CORPUSCULAR HGB CONC 36.2 g/dl (32.0-37.0); MEAN CORPUSCULAR VOLUME 91.9 fl (82.0-101.0); PLATELET COUNT 54 10^3/UL (140-415); RED BLOOD COUNT 2.83 10^6/ul (4.70-6.10); RED CELL DISTRIBUTION WIDTH 16.1 % (11.5-14.5); WHITE BLOOD COUNT 30.8 10^3/ul (4.8-10.8)
[2016-08-08 06:32] LABS: CALCIUM 9.8 mg/dl (8.4-10.2); MAGNESIUM 2.1 mg/dl (1.7-2.5); PHOSPHORUS 3.8 mg/dl (2.5-4.9); POTASSIUM 3.9 mmol/L (3.5-5.1)
[2016-08-08 06:40] LABS: CREATININE 3.56 mg/dl (0.61-1.24)
--- NOTE | 2016-08-08 07:56 | RADRPT ---
PROCEDURE: XR Chest. CLINICAL INDICATION: pna chf TECHNIQUE: Single frontal view of the chest was obtained. COMPARISON: Chest x-ray from 08/07/2016 FINDINGS: The endotracheal tube and enteric tube are unchanged in position. There is stable cardiomegaly and retrocardiac opacity due to atelectasis, infiltrate, and / or effus ion. Patchy and confluent opacities diffusely in the right lung are likely not significantly changed on a background of mildly increased pulmonary vascular congestion IMPRESSION: Patchy opacities in the right lung, likely due to multifocal pneumonia, are not significantly change d site background of mildly increased pulmonary vascular congestion. Stable retrocardiac opacity due to atelectasis, infiltrate, and / or effusion. Stable mild cardiomegaly. Lines and support tubes are unchanged. RPTAT: EE Physician Ismael Date Time Electronically viewed and signed by Ed Casiano Physician on 08/08/2016 07:55 /
[2016-08-08 08:07] LABS: LYMPHOCYTES # 1.5 10^3/ul (0.8-2.9); MONOCYTE # 2.2 10^3/ul (0.3-0.9); NEUTROPHIL # 26.5 10^3/ul (1.6-7.5)
[2016-08-08 08:08] LABS: TARGET CELLS 1+
--- NOTE | 2016-08-08 08:08 | CONS ---
Date/Time of Note Date/Time of Note DATE: 08/08/16 TIME: 08:06 Assessment/Plan Assessment/Plan Chief Complaint/Hosp Course PEA cardiac arrest: secondary to severe metabolic acidosis. No VT/VF or EKG changes to suggest primary cardiac etiology. Trops ok, EF preserved. Acute respiratory failure: intubated during code.Likely ARDS. Not much improvement so far Severe metabolic acidosis: likely was the culprit for the arrest. HD started Shock: ?septic.Off pressors Acute renal failure: unclear etiology now on HD, making some urine Hypoglycemia Hypothyroidism Diarrhea/n/v/colitis -vent management per pulm -HD per nephro (needs volume removal) Problems: Consultation Date/Type/Reason Admit Date/Time August 01, 2016 at 00:50 Initial Consult Date 08/01/16 Type of Consultation: Cardiology Referring Provider: NIKOLE KWON MD, [facility] 24 HR Interval Summary Free Text/Dictation No o/n events. Arousable and responsive. FiO2 still at 80% Exam/Review of Systems Vital Signs Vitals Vital Signs Date Time Temp Pulse Resp B/P Pulse Ox O2 Delivery O2 Flow Rate FiO2 08/08/16 06:00 90 14 165/92 98 Mechanical Ventilator 08/08/16 05:12 80 08/08/16 00:00 96.5 Intake and Output 08/07/16 08/07/16 08/08/16 15:00 23:00 07:00 Intake Total 480 ml 330 ml 270 ml Output Total 3825 ml 10 ml Balance -3345 ml 320 ml 270 ml Exam Constitutional: alert Head: atraumatic, normocephalic Neck: No jvd (difficult ) Respiratory: diminished breath sounds, No clear to auscultation Cardiovascular: edema (1+), regular rate and rhythm, No systolic murmur Gastrointestinal: non-tender, soft Results Result Diagram: 08/08/16 0530 08/08/16 0530 Results 24 hrs Laboratory Tests Test 08/07/16 08:13 08/07/16 09:20 08/07/16 17:02 08/07/16 21:02 Bedside Glucose 119 90 84 Lactic Acid Level 2.4 H Test 08/08/16 00:14 08/08/16 02:00 08/08/16 05:30 08/08/16 05:37 Bedside Glucose 89 73 Urine Color NIC Urine Clarity CLOUDY H Urine pH 5.0 Urine Specific [place] 1.025 Urine Ketones TRACE Urine Nitrite POSITIVE H Urine Bilirubin 2+ H Urine Ictotest NEGATIVE Urine Urobilinogen 1.0 E.U./dL Urine Leukocyte Esterase TRACE H Urine Microscopic RBC >200 Urine Microscopic WBC 2-5 Urine Squamous Epithelial Cells FEW Urine Bacteria MANY Urine Hemoglobin 3+ H Urine Glucose NEGATIVE Urine Total Protein 2+ H White Blood Count 30.8 #H Red Blood Count 2.83 L Hemoglobin 9.4 L Hematocrit 26.0 L Mean Corpuscular Volume 91.9 Mean Corpuscular Hemoglobin 33.2 H Mean Corpuscular Hemoglobin Concent 36.2 Red Cell Distribution Width 16.1 H Platelet Count 54 #L Mean Platelet Volume Neutrophils % Eosinophils % Neutrophils # Eosinophils # Sodium Level 141 Potassium Level 3.9 Chloride Level 101 Carbon Dioxide Level 25 Anion Gap 19 H Blood Urea Nitrogen 69 H Creatinine 3.56 H Glucose Level 73 Calcium Level 9.8 Phosphorus Level 3.8 Magnesium Level 2.1 Medications Medications Current Medications Lorazepam (Ativan) 0.5 mg Q6H PRN IV ANXIETY Last administered on 08/07/16 23: 23; Admin Dose 0.5 MG; Start 08/01/16 at 03:00 Ondansetron HCl (Zofran Inj) 4 mg Q6H PRN IV NAUSEA AND/OR VOMITING; Start at 03:00 Metoclopramide HCl (Reglan) 10 mg Q6H PRN IV NAUSEA AND/OR VOMITING; Start at 03:00 Acetaminophen (Tylenol Tab) 650 mg Q6H PRN PO PAIN LEVEL 1-3 OR FEVER; Start at 03:00 Acetaminophen (Tylenol Supp) 650 mg Q4H PRN [place] PAIN LEVEL 1-3 OR FEVER; Start 08/01/16 at 06:30 Pantoprazole 40 mg 40 mg BID@06,18 IV Last administered on 08/08/16 05:38; Admin Dose 40 MG; Start 08/01/16 at 06:00 Propofol 100 ml @ 3.33 mls/hr Q12H IV Last administered on 08/02/16 09:30; Admin Dose 26.64 MLS/HR; Start 08/01/16 at 09:30 Phenylephrine HCl 40 mg/Dextrose 500 ml @ 0 mls/hr TITRATE IV Last administered on 08/02/16 04:58; Admin Dose 112.5 MLS/HR; Start 08/01/16 at 16:00 Norepinephrine 16 mg/Dextrose 500 ml @ 0 mls/hr TITRATE IV Last administered on 08/06/16 00:10; Admin Dose 30 MLS/HR; Start 08/01/16 at 16:00 Vasopressin 60 unit/Dextrose 60 ml @ 1.2 mls/hr Q12H IV Last administered on 03:55; Admin Dose 2.4 MLS/HR; Start 08/01/16 at 17:30 Epinephrine/ Sodium Chloride (EPINEPHrine/NS) 250 ml @ 3.75 mls/hr TITRATE IV Last administered on 08/01/16 18:50; Admin Dose 3.75 MLS/HR; Start 08/01/16 at 19:30 Eye Lubricant (Artificial Tears Oph) 2 drop QID BOTH EYES Last administered on 08/07/16 21:03; Admin Dose 2 DROP; Start 08/02/16 at 09:00 Insulin Aspart (Novolog Insulin Pen) NOVOLOG *MODERATE* ALGORI... Q4 SC Last administered on 08/06/16 05:48; Admin Dose 2 UNIT; Start 08/02/16 at 09:00 Miscellaneous Information 1 ea NOTE XX ; Start 08/02/16 at 09:00 Glucose (Glutose) 15 gm Q15M PRN PO DECREASED GLUCOSE; Start 08/02/16 at 09:00 Glucose (Glutose) 22.5 gm Q15M PRN PO DECREASED GLUCOSE; Start 08/02/16 at 09:00 Dextrose (D50w Syringe) 25 ml Q15M PRN IV DECREASED GLUCOSE; Start 08/02/16 at 09:00 Dextrose (D50w Syringe) 50 ml Q15M PRN IV DECREASED GLUCOSE; Start 08/02/16 at 09:00 Glucagon (Glucagen) 1 mg Q15M PRN IM DECREASED GLUCOSE; Start 08/02/16 at 09:00 Glucose 15 gm 15 gm Q15M PRN BUCCAL DECREASED GLUCOSE; Start 08/02/16 at 09:00 Midazolam HCl 50 ml @ 1 mls/hr TITRATE IV Last administered on 08/03/16 04:30; Admin Dose 10 MLS/HR; Start 08/02/16 at 09:30 Fentanyl (Sublimaze) 100 ml @ 2.5 mls/hr TITRATE IV Last administered on 00:52; Admin Dose 10 MLS/HR; Start 08/02/16 at 09:30 Calcium Carbonate 1250 mg 1,250 mg Q6 NGT Last administered on 08/08/16 05:38; Admin Dose 1,250 MG; Start 08/03/16 at 12:00 Metronidazole 100 ml @ 100 mls/hr Q8 IVPB Last administered on 08/08/16 05:39 ; Admin Dose 100 MLS/HR; Start 08/03/16 at 10:00 Piperacillin Sod/ Tazobactam Sod 100 ml @ 200 mls/hr Q8 IVPB Last administered on 08/08/16 05:38; Admin Dose 200 MLS/HR; Start 08/03/16 at 14:00 Vancomycin HCl/ Sodium Chloride (Vancocin/NS) 250 ml @ 83.333 mls/ hr Q96H IVPB Last administered on 08/06/16 16:00; Admin Dose 83.333 MLS/HR; Start at 16:00 Methylprednisolone Sodium Succinate (Solu-Medrol) 40 mg DAILY IV ; Start at 09:00 Heparin Sodium (Porcine) (Heparin (1000 Units/ml)) 4,000 unit ONCE CATHETER ; Start 08/07/16 at 11:00; Stop 08/08/16 at 10:59 Levothyroxine Sodium (Synthroid) 125 mcg DAILY@06 NGT Last administered on 05:39; Admin Dose 125 MCG; Start 08/08/16 at 06:00 Insulin Human NPH (Humulin N) 12 unit DAILY SC ; Start 08/08/16 at 09:00 Epoetin Goran (Epogen (Non Esrd/Non Oncology)) 10,000 units MoWeFr@17 SC ; Start 08/08/16 at 17:00 SEPIDEH HAN Aug 08, 2016 08:08
[2016-08-08] MEDS: DEXTROSE 50% 50 ML SYRINGE IV PRN (08:46)
[2016-08-08] MEDS: PROPOFOL 100 ML IV SCH ×2 (08:47→21:17)
[2016-08-08] MEDS: ARTIFICIAL TEARS 15 ML OPH BOTH EYES SCH ×4 (08:47→21:16)
[2016-08-08] MEDS: MIDAZOLAM (DRIP) 50 mg/50 mL 50 ML IV SCH ×2 (08:53→16:00)
[2016-08-08] MEDS ORDERED: METHYLPREDNISOLONE 40 MG INJ IV SCH (09:00)
[2016-08-08] MEDS ORDERED: NPH, HUMAN INSULIN ISOPHANE 3ML VIAL SC SCH (09:00)
[2016-08-08 09:11] LABS: AADO2 Arterial 384.6 mmHg (7.0-24.0); Allen Test ACCEPTAB; Arterial Base Excess -4.2 mmol/L (-3.0-3); Arterial COHb 0.3 % (0.0-3.0); Arterial Fraction of Oxyhgb 93.5 % (93.0-99.0); Arterial HCO3 19.5 mmol/L (22.0-26.0); Arterial MetHb 0.3 % (0.0-1.5); Arterial Total Hemglobin 10.5 g/dl (12.0-18.0); MODE VENT - AC
--- NOTE | 2016-08-08 09:20 | PN ---
DATE: 08/08/2016 SUBJECTIVE: The patient remains critically ill, although clinically improving. Currently is being weaned off pressor support. Remains on full ventilatory support. No other acute events noted. No hemoptysis, hematemesis or hematochezia. OBJECTIVE: VITAL SIGNS: Blood pressure is 131/75, respirations 30, pulse 92, temperature 98.6. I's and O's milton ve been reviewed. The patient had 2 liters in with 3.5 removed with hemodialysis. HEENT: Head is normocephalic. Pupils are reactive to light. NECK: Supple. HEART: Regular rate. LUNGS: Show diminished breath sounds at the bases. ABDOMEN: Soft, nontender to palpation. No rebound or guarding. EXTREMITIES: Negative for clubbing, cyanosis. Positive edema +3. DERMATOLOGIC: No rashes. MUSCULOSKELETAL: No joint effusions. NEUROLOGIC: No change in exam. MEDICATIONS: The patient's medications have been reviewed. LABORATORY DATA: Shows a sodium 141, potassium 3.9, chloride 101, BUN 69, creatinine 3.56. White c ount 13.8, hemoglobin 9.4, hematocrit 26.0, platelet count 54. The patient's repeat urinalysis show s positive nitrites, greater than 200 RBCs, 2 to 5 WBCs, many bacteria. The patient's protein-creat inine ratio is approximately 800 mg per gram of creatinine and a microalbumin-creatinine ratio of 15 1 mg per gram of creatinine. ASSESSMENT AND PLAN: 1. Nonoliguric acute kidney injury with unknown baseline creatinine. Etiology is felt to be second gian to acute tubular necrosis due to septic shock. The patient is currently dialysis dependent. Th ere is no evidence yet of renal recovery. Continue daily dialysis for solute clearance and volume r emoval. Please note patient's repeat urinalysis continues to show hematuria. This is likely from F oley trauma. We will reevaluate the urine under microscopy to see if there is any evidence of dysmo rphic red blood cells. 2. Anemia. Continue to monitor hemoglobin and hematocrit levels. The patient is status post blood transfusion. Will give Epogen with hemodialysis. 3. Mineral bone disorder. Continue to monitor calcium and phosphorus levels. No need for phosphat e binders. 4. Volume overload secondary to acute kidney injury failure, congestive heart failure. The patient remains volume overload. Continue ultrafiltration with hemodialysis. 5. Ventilatory-dependent respiratory failure. Vent settings reviewed. ABG is reviewed. The patie nt may have underlying ARDS. Continue current medical management. Follow up with pulmonary. 6. Sepsis, status post shock. The patient is currently off pressor support. Continue broad-spectr um antibiotics. Repeat cultures have been reviewed. 7. Acute encephalopathy. Etiology is toxic metabolic. Continue to monitor. 8. Dysphagia. The patient is currently on tube feeding, we will continue 9. Hypothyroidism. Continue Synthroid. 10. Status post cardiopulmonary arrest. Continue medical management. 11. Lactic acidosis, improving. 12. History of ETOH abuse. We will continue to monitor. Continue supportive care. 13. Diabetes. Continue Accu-Cheks and insulin sliding scale. 14. Enterocolitis. Continue current medical management. Continue supportive care. 15. Status post hyponatremia. 16. Status post metabolic acidosis. Please note I spent over 30 minutes of critical care time with this patient. Dictated By: BALDOMERO TOVAR/CHARLES Conf#: [id number] DID#: [id number]
--- NOTE | 2016-08-08 11:15 | CONS ---
Date/Time of Note Date/Time of Note DATE: 08/08/16 TIME: 11:11 Consult Date/Type/Reason Admit Date/Time August 01, 2016 at 00:50 Initial Consult Date 08/01/16 Type of Consultation: Pulmonary ICU Ordering Provider: NIKOLE KWON MD, [facility] Subjective Patient more alert this morning opens eyes follows some commands, intermittent agitation, off vasopressors. Objective Vital Signs Date Time Temp Pulse Resp B/P Pulse Ox O2 Delivery O2 Flow Rate FiO2 08/08/16 10:40 76 22 08/08/16 08:10 70 08/08/16 06:00 165/92 98 Mechanical Ventilator 08/08/16 00:00 96.5 Intake and Output 08/07/16 08/07/16 08/08/16 14:59 22:59 06:59 Intake Total 480 ml 230 ml 380 ml Output Total 3825 ml 10 ml Balance -3345 ml 220 ml 380 ml Exam PHYSICAL EXAMINATION: GENERAL: Moderately obese gentleman, intubated on mechanical ventilation, VITAL SIGNS: NECK: Supple. No JVD or lymphadenopathy. Conjunctival edema CARDIAC: S1, S2, no added sounds or murmurs. CHEST: Diminished air entry bilaterally. ABDOMEN: Soft, nontender. No guarding, no rebound. EXTREMITIES: No cyanosis, clubbing. Edema +1. NEUROLOGIC: Generalized weakness. Periorbital edema Results/Medications Result Diagram: 08/08/16 0530 08/08/16 0530 Results 24 hrs Laboratory Tests Test 08/07/16 17:02 08/07/16 21:02 08/08/16 00:14 08/08/16 02:00 Bedside Glucose 90 84 89 Urine Color NIC Urine Clarity CLOUDY H Urine pH 5.0 Urine Specific Uvalda 1.025 Urine Ketones TRACE Urine Nitrite POSITIVE H Urine Bilirubin 2+ H Urine Ictotest NEGATIVE Urine Urobilinogen 1.0 E.U./dL Urine Leukocyte Esterase TRACE H Urine Microscopic RBC >200 Urine Microscopic WBC 2-5 Urine Squamous Epithelial Cells FEW Urine Bacteria MANY Urine Hemoglobin 3+ H Urine Glucose NEGATIVE Urine Total Protein 2+ H Test 08/08/16 05:30 08/08/16 05:37 08/08/16 07:00 08/08/16 08:40 White Blood Count 30.8 #H Red Blood Count 2.83 L Hemoglobin 9.4 L Hematocrit 26.0 L Mean Corpuscular Volume 91.9 Mean Corpuscular Hemoglobin 33.2 H Mean Corpuscular Hemoglobin Concent 36.2 Red Cell Distribution Width 16.1 H Platelet Count 54 #L Mean Platelet Volume Neutrophils % 86.0 H Band Neutrophils % 2.0 Lymphocytes % 5.0 L Monocytes % 7.0 Eosinophils % Nucleated Red Blood Cells % 8.0 H Neutrophils # 26.5 H Lymphocytes # 1.5 Monocytes # 2.2 H Eosinophils # Target Cells 1+ Sodium Level 141 Potassium Level 3.9 Chloride Level 101 Carbon Dioxide Level 25 Anion Gap 19 H Blood Urea Nitrogen 69 H Creatinine 3.56 H Glucose Level 73 Calcium Level 9.8 Phosphorus Level 3.8 Magnesium Level 2.1 Bedside Glucose 73 64 L Blood Gas Specimen Source Blood arterial Arterial Blood Date Drawn 08/08/2016 8:40:46 AM Arterial Blood pH (Temp corrected) 7.417 Arterial Blood pCO2 (Temp correct) 31.0 L Arterial Blood pO2 (Temp corrected) 81.2 Arterial Blood HCO3 19.5 L Arterial Blood Base Excess -4.2 L Arterial Blood Oxygen Saturation 94.1 L Stanley Test ACCEPTAB Arterial Blood Gas Puncture Site Left Radial Arterial Blood Carboxyhemoglobin 0.3 Arterial Blood Methemoglobin 0.3 Blood Gas A-a O2 Differential 384.6 H Oxyhemoglobin Percent 93.5 Total Hemoglobin 10.5 L Blood Gas Temperature 37.0 Blood Gas Respiration Rate 30.0 Blood Gas Actual Respiration Rate 30 Blood Gas Modality VENT - AC FiO2 70.0 Blood Gas Tidal Volume 570.0 Blood Gas Low PEEP Setting 12.0 Blood Gas Notified Whom JLD Blood Gas Notified Time 08/08/2016 9:11:43 AM Test 08/08/16 09:15 08/08/16 09:33 Bedside Glucose 95 93 Medications Current Medications Lorazepam (Ativan) 0.5 mg Q6H PRN IV ANXIETY Last administered on 08/07/16t 23: 23; Admin Dose 0.5 MG; Start 08/01/16 at 03:00 Ondansetron HCl (Zofran Inj) 4 mg Q6H PRN IV NAUSEA AND/OR VOMITING; Start at 03:00 Metoclopramide HCl (Reglan) 10 mg Q6H PRN IV NAUSEA AND/OR VOMITING; Start at 03:00 Acetaminophen (Tylenol Tab) 650 mg Q6H PRN PO PAIN LEVEL 1-3 OR FEVER; Start at 03:00 Acetaminophen (Tylenol Supp) 650 mg Q4H PRN NM PAIN LEVEL 1-3 OR FEVER; Start 08/01/16 at 06:30 Pantoprazole 40 mg 40 mg BID@06,18 IV Last administered on 08/08/16 05:38; Admin Dose 40 MG; Start 08/01/16 at 06:00 Propofol 100 ml @ 3.33 mls/hr Q12H IV Last administered on 08/02/16 09:30; Admin Dose 26.64 MLS/HR; Start 08/01/16 at 09:30 Phenylephrine HCl 40 mg/Dextrose 500 ml @ 0 mls/hr TITRATE IV Last administered on 08/02/16 04:58; Admin Dose 112.5 MLS/HR; Start 08/01/16 at 16:00 Norepinephrine 16 mg/Dextrose 500 ml @ 0 mls/hr TITRATE IV Last administered on 08/06/16 00:10; Admin Dose 30 MLS/HR; Start 08/01/16 at 16:00 Vasopressin 60 unit/Dextrose 60 ml @ 1.2 mls/hr Q12H IV Last administered on 03:55; Admin Dose 2.4 MLS/HR; Start 08/01/16 at 17:30 Epinephrine/ Sodium Chloride (EPINEPHrine/NS) 250 ml @ 3.75 mls/hr TITRATE IV Last administered on 08/01/16 18:50; Admin Dose 3.75 MLS/HR; Start 08/01/16 at 19:30 Eye Lubricant (Artificial Tears Oph) 2 drop QID BOTH EYES Last administered on 08/08/16 08:47; Admin Dose 2 DROP; Start 08/02/16 at 09:00 Insulin Aspart (Novolog Insulin Pen) NOVOLOG *MODERATE* ALGORI... Q4 SC Last administered on 08/06/16 05:48; Admin Dose 2 UNIT; Start 08/02/16 at 09:00 Miscellaneous Information 1 ea NOTE XX ; Start 08/02/16 at 09:00 Glucose (Glutose) 15 gm Q15M PRN PO DECREASED GLUCOSE; Start 08/02/16 at 09:00 Glucose (Glutose) 22.5 gm Q15M PRN PO DECREASED GLUCOSE; Start 08/02/16 at 09:00 Dextrose (D50w Syringe) 25 ml Q15M PRN IV DECREASED GLUCOSE Last administered on 08/08/16 08:46; Admin Dose 25 ML; Start 08/02/16 at 09:00 Dextrose (D50w Syringe) 50 ml Q15M PRN IV DECREASED GLUCOSE; Start 08/02/16 at 09:00 Glucagon (Glucagen) 1 mg Q15M PRN IM DECREASED GLUCOSE; Start 08/02/16 at 09:00 Glucose 15 gm 15 gm Q15M PRN BUCCAL DECREASED GLUCOSE; Start 08/02/16 at 09:00 Midazolam HCl 50 ml @ 1 mls/hr TITRATE IV Last administered on 08/08/16 08:53; Admin Dose 3 MLS/HR; Start 08/02/16 at 09:30 Fentanyl (Sublimaze) 100 ml @ 2.5 mls/hr TITRATE IV Last administered on 09:52; Admin Dose 10 MLS/HR; Start 08/02/16 at 09:30 Calcium Carbonate 1250 mg 1,250 mg Q6 NGT Last administered on 08/08/16 05:38; Admin Dose 1,250 MG; Start 08/03/16 at 12:00 Metronidazole 100 ml @ 100 mls/hr Q8 IVPB Last administered on 08/08/16 05:39 ; Admin Dose 100 MLS/HR; Start 08/03/16 at 10:00 Piperacillin Sod/ Tazobactam Sod 100 ml @ 200 mls/hr Q8 IVPB Last administered on 08/08/16 05:38; Admin Dose 200 MLS/HR; Start 08/03/16 at 14:00 Vancomycin HCl/ Sodium Chloride (Vancocin/NS) 250 ml @ 83.333 mls/ hr Q96H IVPB Last administered on 08/06/16 16:00; Admin Dose 83.333 MLS/HR; Start at 16:00 Methylprednisolone Sodium Succinate (Solu-Medrol) 40 mg DAILY IV Last administered on 08/08/16 08:46; Admin Dose 40 MG; Start 08/08/16 at 09:00 Levothyroxine Sodium (Synthroid) 125 mcg DAILY@06 NGT Last administered on 05:39; Admin Dose 125 MCG; Start 08/08/16 at 06:00 Insulin Human NPH (Humulin N) 12 unit DAILY SC ; Start 08/08/16 at 09:00 Epoetin Goran (Epogen (Non Esrd/Non Oncology)) 10,000 units MoWeFr@17 SC ; Start 08/08/16 at 17:00 Assessment/Plan Chief Complaint/Hosp Course IMPRESSION 1. Acute renal failure with severe metabolic acidosis, etiology of which remains unclear, possible acute tubular necrosis injury versus prerenal. 2. Respiratory failure secondary to significant metabolic acidosis and subsequent cardiac arrest. ARDS radiographically. 3. Severe hypothyroidism 4. History of ETOH. 5. Status post septic shock requiring vasopressors. Persistent leukocytosis despite decreasing steroids 6. Acute anemia possibly underlying GI bleed status post packed red cell transfusion 7. Insulin-dependent diabetes 8. Dysphagia secondary to above PLAN: 1. Improved metabolic acidosis DC bicarbonate 2. Renal consult. Continue hemodialysis as tolerated 3. Endocrinology consult. Appreciated 4. Vasopressors if needed 5. DVT and GI prophylaxis. 6. Continue antibiotics ID consult 7. Continue decreased steroids 8. Continue insulin will need adjustment given decrease in steroid dose 9. Continue nasogastric tube feeding as tolerated Overall prognosis remains guarded Problems: NIKOLE KWON MD, [facility] Aug 08, 2016 11:15
--- NOTE | 2016-08-08 13:58 | CONS ---
DATE OF ADMISSION: 08/01/2016 DATE OF CONSULTATION: 08/08/2016 PALLIATIVE CARE CONSULTATION HISTORY OF PRESENT ILLNESS: This is a 60-year-old gentleman who was admitted to [facility] on 08/01/2016. At that time while being worked up in the emergency room for acute abdomin al discomfort, was found to have metabolic acidosis, renal failure, fluid and electrolyte abnormalit ies. He arrested. The patient required intubation at that time and was transferred to the intensiv e care unit. The patient was admitted to telemetry. The following morning, the patient had a cardi ac arrest. He has been in the intensive care unit and has required reintubation on 3 occasions thus far. He is still critically ill at this time, still on broad-spectrum antibiotic coverage. He has failed weaning attempts, he is on 70% FIO2 with 12 of PEEP. He is being dialyzed. Multiple subspe cialty consultations are involved with his care at this point. According to nursing staff, when he undergoes sedation vacation, he does respond to simple commands appropriately. I am asked to be inv olved with his care, contact family members. This gentleman is a FULL CODE. MEDICATIONS: Please refer to reconciliation sheet. ALLERGIES: NO KNOWN DRUG ALLERGIES. MAJOR MEDICAL PROBLEMS IN THE PAST: All of this information obtained from the patient's medical rec ords on hospitalization, is only per history of present illness that is known at this time. SOCIAL HISTORY: Unknown. REVIEW OF SYSTEMS: Cannot be obtained. PHYSICAL EXAMINATION: GENERAL: Shows an intubated gentleman who is obese, sedated. VITAL SIGNS: Blood pressure 139/98, pulse is 75 and regular, respirations of 30, temperature 95.8 d egrees, 98% saturation on 70% FIO2 and 12 PEEP. HEENT: He is normocephalic and atraumatic. Anicteric, acyanotic. CHEST: Distant clear breath sounds throughout both lung virk. CORONARY: S1, S2 without S3, S4, murmur, gallop, rub. Normal rate, normal rhythm. ABDOMEN: Active bowel sounds. LABORATORY: White blood cell count of 30.8, hemoglobin 9.4, hematocrit of 26.0, MCV of 91.9, platel et count of 54,000. Chemistries: Serum sodium 141, potassium 3.9, chloride 101, bicarbonate of 25, BUN of 69, creatinine 0.56. ASSESSMENT AND PLAN: This is a critically ill 52-year-old gentleman in the intensive care unit at [facility], septic with ARDS. The patient has been reintubated 3 times already. Candelario jain still has septic laboratory tests with a white blood cell count which is extremely at this time. Other diagnoses include a metabolic acidosis, renal failure on hemodialysis, persistent fluid and el ectrolyte abnormalities, are being attended to by the patient's primary care hospitalist teams and s ubspecialists involved with his care issues. The patient is a FULL CODE, although he is young, I wi ll contact family members and introduce myself and discuss his overall clinical course. I will stay away from prognosis at this time and because he is relatively new, just being admitted on August 01, I will not address his code status and not alarm family at this time. I will explore issues with f amily members such as his background, if there is any detailed discussion in the past of whether or not he would want to continue in a prolonged state with a trach and a PEG, which is a consideration since patient has been intubated some 3 times. I want to find out their hopes, understanding of acc eptable quality of life that they feel the patient would want to have, if there are any cultural iss ues, communication issues that have occurred thus far with his care, and goals of care. Prognosis w ill not be addressed. Palliative care issues will not be addressed other than assisting with his ov erall pain or symptom management, which I do not believe there are issues with that so far, but he i s still sedated with Versed and fentanyl. Psychosocial issues will be addressed with family members , and I will explore who is the decision maker on the patient's behalf at this time, and establish s ome kind rapport with that family member. Thank you very much for this consultation. Dictated By: ARMIN ELIZABETH MD, LP/CHARLES Conf#: [id number] DID#: [id number]
[2016-08-08] MEDS: EPOETIN 10000 UNITS/ML (NON ESRD/NON ONCOLOGY) SC SCH (16:03)
--- NOTE | 2016-08-08 16:22 | CONS ---
DATE OF ADMISSION: 08/01/2016 DATE OF CONSULTATION: 08/08/2016 TYPE OF CONSULTATION: Infectious Disease. REASON FOR CONSULTATION: Antibiotic management. HISTORY OF PRESENT ILLNESS: Zev Dick is a 60-year-old black male who was admitted on 7 with nausea, diarrhea for the past 10 days and vomiting. He denies any hematemesis or hematochezi a. He denies fever or chills. His initial workup found him to have metabolic acidosis with a GI in testinal loss versus renal loss. Nephrology was consulted. He had acute renal failure with a creati nine of 3.5 and hypoglycemia. He has no past medical history of diabetes, persistent diarrhea. GI c onsult was called and a check for C. difficile leukocytes was made. Patient also had macrocytic ane nir. He has a history of alcohol use, although he states he only drinks occasionally. On admission , his alcohol level was 131. He has excessive amounts of alcohol use, though he states he only drin ks 4 beers a week. On admission, he has a history of hypertension, gout, and hypothyroidism. His w bobby count was 8000, H and H 9.9 and 31.2, platelet count 172,000. BUN and creatinine 36/3.56. The patient had coagulase negative staph in his urine on 07/31/2016, blood cultures were negative. He had coliforms in his stool. His C. difficile was negative on 08/02/2016, his urine cultures negati ve today. IMAGING: He has an ET tube, an NG tube, a Silver catheter and triple lumen catheter in the right dara in. He has patchy opacities in the right lung, likely due to multifocal pneumonia, not significantl y changed, mildly increased pulmonary vascular congestion, stable retrocardiac opacity, either atele ctasis, infiltrates and/or effusions, stable mild cardiomegaly. Lines and support tubes are unchang ed. Decreased bilateral upper lobe and lower lobe infiltrates from 07/07/2016. On 08/01/2016, look ing back, he had bilateral perihilar infiltrates. Today, patient remains critically ill, weaned off pressor support. PAST MEDICAL HISTORY: Operations as outlined. FAMILY HISTORY: Noncontributory. SOCIAL HISTORY: Does not smoke. He does drink significantly, he does not abuse drugs. ALLERGIES: NONE TO PENICILLIN, SULFA OR FOODS. MEDICATIONS: Per chart. REVIEW OF SYSTEMS: As per HPI. PHYSICAL EXAMINATION: GENERAL: The patient is a well-developed, well-nourished -Indian male who is lethargic, ba rely arousable. He has an ET tube, an NG tube, a Silver catheter and a central line in the right dara in. SKIN: Without generalized rash. HEENT: Within normal limits. NECK: Supple. LYMPH NODES: None palpable. CHEST: Decreased breath sounds at the bases. HEART: Without murmur or gallop. ABDOMEN: Soft, nontender, without organosplenomegaly or masses. EXTREMITIES: Without cyanosis or clubbing. He has 3+ edema. RECTAL AND GENITAL: Deferred. NEUROLOGIC: No focal neurological abnormalities. LABORATORY DATA: Today's BUN and creatinine 69/3.56. White count 13.8, H and H 9.4 and 26, platele t count is 54. Urinalysis shows positive nitrites, greater than 200 RBCs and 2 to 5 WBCs per high p ower field with many bacteria. IMPRESSION AND PLAN: His situation is that he has sepsis status post shock. Off pressors, source p robably from his lungs, possible aspiration. The patient is currently on methylprednisolone. He is on vancomycin and Zosyn as well as Flagyl. His Clostridium difficile was negative. I am not sure that he needs the Flagyl, but we will continue him on current therapy. I will dictate my findings t o the hospitalist and to the various consultants. Dictated By: BLANCA CORDERO MD, JD/CHARLES Conf#: [id number] DID#: [id number]
--- NOTE | 2016-08-08 17:13 | PN ---
Date/Time of Note Date/Time of Note DATE: 08/08/16 TIME: 17:11 Assessment/Plan VTE Prophylaxis VTE Prophylaxis Intervention: SCD's Assessment/Plan Chief Complaint/Hosp Course 1. Status post cardiac arrest with ROSC 2/2 severe metabolic acidosis from #4 2. Acute encephalopathy secondary to #1 [toxic metabolic] 3. Ventilator dependent respiratory failure with probable ARDS and pulmonary edema per pulmonary 4. Severe acute renal failure now on hemodialysis with unknown baseline thought to be secondary to severe ATN 5. Severe Sepsis with septic shock and lactic acidosis on pressors 6. Newly diagnosed Hypothyroidism 7. Chronic Alcohol use and abuse 8. Anemia likely secondary to chronic disease but a component of malnutrition from chronic alcohol abuse 9. Enterocolitis 10. Thrombocytopenia which could be as a result of liver disease, will have to rule out heparin-induced thrombocytopenia 11. Severe fatty liver with Transaminitis and mild hyperbilirubinemia indicating a measure of chronic liver disease vs shock liver 12. Bilateral pneumonia likely aspiration 13. Coagulase neg Staph UTI 14. Hypophosphatemia 15. Steroid-induced hyperglycemia vs type 2 DM requiring low-dose Lantus and NPH 16. Positive stool occult blood on twice daily PPI PLAN: Continue broad-spectrum antibiotics with IV vancomycin and Zosyn, cultures are insignificant at this time Continue to wean pressors Continue hemodialysis per nephrology Continue vent management and weaning Endocrinology managing sugars and thyroid profile Continue serial electrolyte monitoring and replenishment Continue supportive ICU care, palliative care is following Prophylaxis : SCDS / PPI Problems: Subjective 24 Hr Interval Summary Subjective hx not possible: pt non-verbal Exam/Review of Systems Vital Signs Vitals Vital Signs Date Time Temp Pulse Resp B/P Pulse Ox O2 Delivery O2 Flow Rate FiO2 08/08/16 16:00 80 08/08/16 15:15 30 95 60 08/08/16 12:00 95.8 139/98 Mechanical Ventilator Intake and Output 08/07/16 08/07/16 08/08/16 15:00 23:00 07:00 Intake Total 480 ml 330 ml 280 ml Output Total 3825 ml 10 ml Balance -3345 ml 320 ml 280 ml Exam Constitutional: non-verbal Respiratory: clear to auscultation Cardiovascular: regular rate and rhythm Gastrointestinal: soft, No distended Musculoskeletal: nl extremities to inspection Results Result Diagram: 08/08/16 0530 08/08/16 0530 Results 24 hrs Laboratory Tests Test 08/07/16 21:02 08/08/16 00:14 08/08/16 02:00 08/08/16 05:30 Bedside Glucose 84 89 Urine Color NIC Urine Clarity CLOUDY H Urine pH 5.0 Urine Specific [place] 1.025 Urine Ketones TRACE Urine Nitrite POSITIVE H Urine Bilirubin 2+ H Urine Ictotest NEGATIVE Urine Urobilinogen 1.0 E.U./dL Urine Leukocyte Esterase TRACE H Urine Microscopic RBC >200 Urine Microscopic WBC 2-5 Urine Squamous Epithelial Cells FEW Urine Bacteria MANY Urine Hemoglobin 3+ H Urine Glucose NEGATIVE Urine Total Protein 2+ H White Blood Count 30.8 #H Red Blood Count 2.83 L Hemoglobin 9.4 L Hematocrit 26.0 L Mean Corpuscular Volume 91.9 Mean Corpuscular Hemoglobin 33.2 H Mean Corpuscular Hemoglobin Concent 36.2 Red Cell Distribution Width 16.1 H Platelet Count 54 #L Mean Platelet Volume Neutrophils % 86.0 H Band Neutrophils % 2.0 Lymphocytes % 5.0 L Monocytes % 7.0 Eosinophils % Nucleated Red Blood Cells % 8.0 H Neutrophils # 26.5 H Lymphocytes # 1.5 Monocytes # 2.2 H Eosinophils # Target Cells 1+ Sodium Level 141 Potassium Level 3.9 Chloride Level 101 Carbon Dioxide Level 25 Anion Gap 19 H Blood Urea Nitrogen 69 H Creatinine 3.56 H Glucose Level 73 Calcium Level 9.8 Phosphorus Level 3.8 Magnesium Level 2.1 Test 08/08/16 05:37 08/08/16 07:00 08/08/16 08:40 08/08/16 09:15 Bedside Glucose 73 64 L 95 Blood Gas Specimen Source Blood arterial Arterial Blood Date Drawn 08/08/2016 8:40:46 AM Arterial Blood pH (Temp corrected) 7.417 Arterial Blood pCO2 (Temp correct) 31.0 L Arterial Blood pO2 (Temp corrected) 81.2 Arterial Blood HCO3 19.5 L Arterial Blood Base Excess -4.2 L Arterial Blood Oxygen Saturation 94.1 L Stanley Test ACCEPTAB Arterial Blood Gas Puncture Site Left Radial Arterial Blood Carboxyhemoglobin 0.3 Arterial Blood Methemoglobin 0.3 Blood Gas A-a O2 Differential 384.6 H Oxyhemoglobin Percent 93.5 Total Hemoglobin 10.5 L Blood Gas Temperature 37.0 Blood Gas Respiration Rate 30.0 Blood Gas Actual Respiration Rate 30 Blood Gas Modality VENT - AC FiO2 70.0 Blood Gas Tidal Volume 570.0 Blood Gas Low PEEP Setting 12.0 Blood Gas Notified Whom JLD Blood Gas Notified Time 08/08/2016 9:11:43 AM Test 08/08/16 09:33 08/08/16 12:00 08/08/16 16:02 Bedside Glucose 93 94 93 Medications Medications Current Medications Lorazepam (Ativan) 0.5 mg Q6H PRN IV ANXIETY Last administered on 08/07/16 23: 23; Admin Dose 0.5 MG; Start 08/01/16 at 03:00 Ondansetron HCl (Zofran Inj) 4 mg Q6H PRN IV NAUSEA AND/OR VOMITING; Start at 03:00 Metoclopramide HCl (Reglan) 10 mg Q6H PRN IV NAUSEA AND/OR VOMITING; Start at 03:00 Acetaminophen (Tylenol Tab) 650 mg Q6H PRN PO PAIN LEVEL 1-3 OR FEVER; Start at 03:00 Acetaminophen (Tylenol Supp) 650 mg Q4H PRN [place] PAIN LEVEL 1-3 OR FEVER; Start 08/01/16 at 06:30 Pantoprazole 40 mg 40 mg BID@06,18 IV Last administered on 08/08/16 05:38; Admin Dose 40 MG; Start 08/01/16 at 06:00 Propofol 100 ml @ 3.33 mls/hr Q12H IV Last administered on 08/02/16 09:30; Admin Dose 26.64 MLS/HR; Start 08/01/16 at 09:30 Phenylephrine HCl 40 mg/Dextrose 500 ml @ 0 mls/hr TITRATE IV Last administered on 08/02/16 04:58; Admin Dose 112.5 MLS/HR; Start 08/01/16 at 16:00 Norepinephrine 16 mg/Dextrose 500 ml @ 0 mls/hr TITRATE IV Last administered on 08/06/16 00:10; Admin Dose 30 MLS/HR; Start 08/01/16 at 16:00 Vasopressin 60 unit/Dextrose 60 ml @ 1.2 mls/hr Q12H IV Last administered on 03:55; Admin Dose 2.4 MLS/HR; Start 08/01/16 at 17:30 Epinephrine/ Sodium Chloride (EPINEPHrine/NS) 250 ml @ 3.75 mls/hr TITRATE IV Last administered on 08/01/16 18:50; Admin Dose 3.75 MLS/HR; Start 08/01/16 at 19:30 Eye Lubricant (Artificial Tears Oph) 2 drop QID BOTH EYES Last administered on 08/08/16 16:00; Admin Dose 2 DROP; Start 08/02/16 at 09:00 Insulin Aspart (Novolog Insulin Pen) NOVOLOG *MODERATE* ALGORI... Q4 SC Last administered on 08/06/16 05:48; Admin Dose 2 UNIT; Start 08/02/16 at 09:00 Miscellaneous Information 1 ea NOTE XX ; Start 08/02/16 at 09:00 Glucose (Glutose) 15 gm Q15M PRN PO DECREASED GLUCOSE; Start 08/02/16 at 09:00 Glucose (Glutose) 22.5 gm Q15M PRN PO DECREASED GLUCOSE; Start 08/02/16 at 09:00 Dextrose (D50w Syringe) 25 ml Q15M PRN IV DECREASED GLUCOSE Last administered on 08/08/16 08:46; Admin Dose 25 ML; Start 08/02/16 at 09:00 Dextrose (D50w Syringe) 50 ml Q15M PRN IV DECREASED GLUCOSE; Start 08/02/16 at 09:00 Glucagon (Glucagen) 1 mg Q15M PRN IM DECREASED GLUCOSE; Start 08/02/16 at 09:00 Glucose 15 gm 15 gm Q15M PRN BUCCAL DECREASED GLUCOSE; Start 08/02/16 at 09:00 Midazolam HCl 50 ml @ 1 mls/hr TITRATE IV Last administered on 08/08/16 16:00; Admin Dose 3 MLS/HR; Start 08/02/16 at 09:30 Fentanyl (Sublimaze) 100 ml @ 2.5 mls/hr TITRATE IV Last administered on 09:52; Admin Dose 10 MLS/HR; Start 08/02/16 at 09:30 Calcium Carbonate 1250 mg 1,250 mg Q6 NGT Last administered on 08/08/16 12:06; Admin Dose 1,250 MG; Start 08/03/16 at 12:00 Metronidazole 100 ml @ 100 mls/hr Q8 IVPB Last administered on 08/08/16 13:29 ; Admin Dose 100 MLS/HR; Start 08/03/16 at 10:00 Piperacillin Sod/ Tazobactam Sod 100 ml @ 200 mls/hr Q8 IVPB Last administered on 08/08/16 13:29; Admin Dose 200 MLS/HR; Start 08/03/16 at 14:00 Vancomycin HCl/ Sodium Chloride (Vancocin/NS) 250 ml @ 83.333 mls/ hr Q96H IVPB Last administered on 08/06/16 16:00; Admin Dose 83.333 MLS/HR; Start at 16:00 Methylprednisolone Sodium Succinate (Solu-Medrol) 40 mg DAILY IV Last administered on 08/08/16 08:46; Admin Dose 40 MG; Start 08/08/16 at 09:00 Levothyroxine Sodium (Synthroid) 125 mcg DAILY@06 NGT Last administered on 05:39; Admin Dose 125 MCG; Start 08/08/16 at 06:00 Insulin Human NPH (Humulin N) 12 unit DAILY SC ; Start 08/08/16 at 09:00 Epoetin Goran (Epogen (Non Esrd/Non Oncology)) 10,000 units MoWeFr@17 SC Last administered on 08/08/16 16:03; Admin Dose 10,000 UNITS; Start 08/08/16 at 17:00 SANYA SMILEY Aug 08, 2016 17:13
--- NOTE | 2016-08-08 18:50 | CONS ---
Date/Time of Note Date/Time of Note DATE: 08/08/16 TIME: 18:49 Assessment/Plan Assessment/Plan Chief Complaint/Hosp Course 60-year-old right-handed -[place] gentleman normally cared for at the [facility] system. He was admitted to the hospital but it had cardiac arrest in the hospital. Please note that his picture actually looked a bit like adrenal insufficiency except that he has a serum cortisol level of 44 prior to his arrest. He had a TSH of 21 with a low free T4 and a low T3. Patient is intubated and unable to give a history although he is able to look and follows rudimentary commands. At this time many of his metabolic abnormalities have improved. Problems: (1) Onychomycosis Status: Chronic Comment: Pulse therapy (2) Hypothyroidism Status: Chronic Comment: On replacement treatment. Qualifiers: Hypothyroidism type: acquired Qualified Code: E03.9 - Acquired hypothyroidism Consultation Date/Type/Reason Admit Date/Time August 01, 2016 at 00:50 Initial Consult Date 08/01/16 Type of Consultation: Endocrinology Reason for Consultation Hypothyroidism; multiple metabolic disturbances Referring Provider: NIKOLE KWON MD, [facility] 24 HR Interval Summary Subjective hx not possible: pt non-verbal, pt critical status Exam/Review of Systems Vital Signs Vitals Vital Signs Date Time Temp Pulse Resp B/P Pulse Ox O2 Delivery O2 Flow Rate FiO2 08/08/16 18:00 74 30 143/104 98 Mechanical Ventilator 08/08/16 17:45 60 08/08/16 16:00 97.8 Intake and Output 08/07/16 08/07/16 08/08/16 15:00 23:00 07:00 Intake Total 480 ml 330 ml 280 ml Output Total 3825 ml 10 ml Balance -3345 ml 320 ml 280 ml Exam Intubated Neck: non-tender, supple Respiratory: clear to auscultation, normal air movement Extremities: other (Onychomycosis) Results Result Diagram: 08/08/16 0530 08/08/16 0530 Results 24 hrs Laboratory Tests Test 08/07/16 21:02 08/08/16 00:14 08/08/16 02:00 08/08/16 05:30 Bedside Glucose 84 89 Urine Color NIC Urine Clarity CLOUDY H Urine pH 5.0 Urine Specific [place] 1.025 Urine Ketones TRACE Urine Nitrite POSITIVE H Urine Bilirubin 2+ H Urine Ictotest NEGATIVE Urine Urobilinogen 1.0 E.U./dL Urine Leukocyte Esterase TRACE H Urine Microscopic RBC >200 Urine Microscopic WBC 2-5 Urine Squamous Epithelial Cells FEW Urine Bacteria MANY Urine Hemoglobin 3+ H Urine Glucose NEGATIVE Urine Total Protein 2+ H White Blood Count 30.8 #H Red Blood Count 2.83 L Hemoglobin 9.4 L Hematocrit 26.0 L Mean Corpuscular Volume 91.9 Mean Corpuscular Hemoglobin 33.2 H Mean Corpuscular Hemoglobin Concent 36.2 Red Cell Distribution Width 16.1 H Platelet Count 54 #L Mean Platelet Volume Neutrophils % 86.0 H Band Neutrophils % 2.0 Lymphocytes % 5.0 L Monocytes % 7.0 Eosinophils % Nucleated Red Blood Cells % 8.0 H Neutrophils # 26.5 H Lymphocytes # 1.5 Monocytes # 2.2 H Eosinophils # Target Cells 1+ Sodium Level 141 Potassium Level 3.9 Chloride Level 101 Carbon Dioxide Level 25 Anion Gap 19 H Blood Urea Nitrogen 69 H Creatinine 3.56 H Glucose Level 73 Calcium Level 9.8 Phosphorus Level 3.8 Magnesium Level 2.1 Test 08/08/16 05:37 08/08/16 07:00 08/08/16 08:40 08/08/16 09:15 Bedside Glucose 73 64 L 95 Blood Gas Specimen Source Blood arterial Arterial Blood Date Drawn 08/08/2016 8:40:46 AM Arterial Blood pH (Temp corrected) 7.417 Arterial Blood pCO2 (Temp correct) 31.0 L Arterial Blood pO2 (Temp corrected) 81.2 Arterial Blood HCO3 19.5 L Arterial Blood Base Excess -4.2 L Arterial Blood Oxygen Saturation 94.1 L Stanley Test ACCEPTAB Arterial Blood Gas Puncture Site Left Radial Arterial Blood Carboxyhemoglobin 0.3 Arterial Blood Methemoglobin 0.3 Blood Gas A-a O2 Differential 384.6 H Oxyhemoglobin Percent 93.5 Total Hemoglobin 10.5 L Blood Gas Temperature 37.0 Blood Gas Respiration Rate 30.0 Blood Gas Actual Respiration Rate 30 Blood Gas Modality VENT - AC FiO2 70.0 Blood Gas Tidal Volume 570.0 Blood Gas Low PEEP Setting 12.0 Blood Gas Notified Whom JLD Blood Gas Notified Time 08/08/2016 9:11:43 AM Test 08/08/16 09:33 08/08/16 12:00 08/08/16 16:02 Bedside Glucose 93 94 93 Medications Medications Current Medications Lorazepam (Ativan) 0.5 mg Q6H PRN IV ANXIETY Last administered on 08/07/16 23: 23; Admin Dose 0.5 MG; Start 08/01/16 at 03:00 Ondansetron HCl (Zofran Inj) 4 mg Q6H PRN IV NAUSEA AND/OR VOMITING; Start at 03:00 Metoclopramide HCl (Reglan) 10 mg Q6H PRN IV NAUSEA AND/OR VOMITING; Start at 03:00 Acetaminophen (Tylenol Tab) 650 mg Q6H PRN PO PAIN LEVEL 1-3 OR FEVER; Start at 03:00 Acetaminophen (Tylenol Supp) 650 mg Q4H PRN [place] PAIN LEVEL 1-3 OR FEVER; Start 08/01/16 at 06:30 Pantoprazole 40 mg 40 mg BID@06,18 IV Last administered on 08/08/16 17:58; Admin Dose 40 MG; Start 08/01/16 at 06:00 Propofol 100 ml @ 3.33 mls/hr Q12H IV Last administered on 08/02/16 09:30; Admin Dose 26.64 MLS/HR; Start 08/01/16 at 09:30 Phenylephrine HCl 40 mg/Dextrose 500 ml @ 0 mls/hr TITRATE IV Last administered on 08/02/16 04:58; Admin Dose 112.5 MLS/HR; Start 08/01/16 at 16:00 Norepinephrine 16 mg/Dextrose 500 ml @ 0 mls/hr TITRATE IV Last administered on 08/06/16 00:10; Admin Dose 30 MLS/HR; Start 08/01/16 at 16:00 Vasopressin 60 unit/Dextrose 60 ml @ 1.2 mls/hr Q12H IV Last administered on 03:55; Admin Dose 2.4 MLS/HR; Start 08/01/16 at 17:30 Epinephrine/ Sodium Chloride (EPINEPHrine/NS) 250 ml @ 3.75 mls/hr TITRATE IV Last administered on 08/01/16 18:50; Admin Dose 3.75 MLS/HR; Start 08/01/16 at 19:30 Eye Lubricant (Artificial Tears Oph) 2 drop QID BOTH EYES Last administered on 08/08/16 16:00; Admin Dose 2 DROP; Start 08/02/16 at 09:00 Insulin Aspart (Novolog Insulin Pen) NOVOLOG *MODERATE* ALGORI... Q4 SC Last administered on 08/06/16 05:48; Admin Dose 2 UNIT; Start 08/02/16 at 09:00 Miscellaneous Information 1 ea NOTE XX ; Start 08/02/16 at 09:00 Glucose (Glutose) 15 gm Q15M PRN PO DECREASED GLUCOSE; Start 08/02/16 at 09:00 Glucose (Glutose) 22.5 gm Q15M PRN PO DECREASED GLUCOSE; Start 08/02/16 at 09:00 Dextrose (D50w Syringe) 25 ml Q15M PRN IV DECREASED GLUCOSE Last administered on 08/08/16 08:46; Admin Dose 25 ML; Start 08/02/16 at 09:00 Dextrose (D50w Syringe) 50 ml Q15M PRN IV DECREASED GLUCOSE; Start 08/02/16 at 09:00 Glucagon (Glucagen) 1 mg Q15M PRN IM DECREASED GLUCOSE; Start 08/02/16 at 09:00 Glucose 15 gm 15 gm Q15M PRN BUCCAL DECREASED GLUCOSE; Start 08/02/16 at 09:00 Midazolam HCl 50 ml @ 1 mls/hr TITRATE IV Last administered on 08/08/16 16:00; Admin Dose 3 MLS/HR; Start 08/02/16 at 09:30 Fentanyl (Sublimaze) 100 ml @ 2.5 mls/hr TITRATE IV Last administered on 09:52; Admin Dose 10 MLS/HR; Start 08/02/16 at 09:30 Calcium Carbonate 1250 mg 1,250 mg Q6 NGT Last administered on 08/08/16 17:58; Admin Dose 1,250 MG; Start 08/03/16 at 12:00 Metronidazole 100 ml @ 100 mls/hr Q8 IVPB Last administered on 08/08/16 13:29 ; Admin Dose 100 MLS/HR; Start 08/03/16 at 10:00 Piperacillin Sod/ Tazobactam Sod 100 ml @ 200 mls/hr Q8 IVPB Last administered on 08/08/16 13:29; Admin Dose 200 MLS/HR; Start 08/03/16 at 14:00 Vancomycin HCl/ Sodium Chloride (Vancocin/NS) 250 ml @ 83.333 mls/ hr Q96H IVPB Last administered on 08/06/16 16:00; Admin Dose 83.333 MLS/HR; Start at 16:00 Methylprednisolone Sodium Succinate (Solu-Medrol) 40 mg DAILY IV Last administered on 08/08/16 08:46; Admin Dose 40 MG; Start 08/08/16 at 09:00 Levothyroxine Sodium (Synthroid) 125 mcg DAILY@06 NGT Last administered on 05:39; Admin Dose 125 MCG; Start 08/08/16 at 06:00 Insulin Human NPH (Humulin N) 12 unit DAILY SC ; Start 08/08/16 at 09:00 Epoetin Goran (Epogen (Non Esrd/Non Oncology)) 10,000 units MoWeFr@17 SC Last administered on 08/08/16 16:03; Admin Dose 10,000 UNITS; Start 08/08/16 at 17:00 ERIN MARTÍNEZ MD Aug 08, 2016 18:50
[2016-08-08] MEDS: TERBINAFINE 250 MG TAB NGT SCH (21:16)
[2016-08-09] VITALS (43 sets, daily range): BP systolic 93–160; BP diastolic 62–109; PULSE 69–87; RESP 22–30
[2016-08-09] MEDS: CA CARBONATE (250 MG/ML) 5ML CUP NGT SCH ×4 (00:10→18:33)
[2016-08-09] MEDS: INSULIN ASPART [NOVOLOG] 3 ML PEN SC SCH ×6 (00:12→21:00)
[2016-08-09] MEDS: MIDAZOLAM (DRIP) 50 mg/50 mL 50 ML IV SCH ×3 (02:27→23:22)
[2016-08-09] MEDS: PIPER-TAZO 3.375 GM IV (PMX) 100 ML IVPB SCH ×3 (05:13→23:17)
[2016-08-09] MEDS: metroNIDAZOLE 500 MG/NS (PMX) 100 ML IVPB SCH ×3 (05:13→21:48)
[2016-08-09] MEDS: LEVOTHYROXINE 125 MCG TAB NGT SCH (05:14)
[2016-08-09] MEDS: PANTOPRAZOLE 40 MG INJ IV SCH ×2 (05:14→18:33)
[2016-08-09] MEDS: FENTAnyl (DRIP) 1000 mcg/100mL 100 ML IV SCH ×3 (05:18→23:21)
[2016-08-09] MEDS: VASOPRESSIN 60 UNIT in DEXTROSE 5% 57 ML IV SCH ×2 (05:30→17:30)
[2016-08-09 06:44] LABS: ADD SCAN DIFF NO
[2016-08-09 06:59] LABS: ABNORMAL IP MESSAGE 1; HEMATOCRIT 26.1 % (42.0-52.0); HEMOGLOBIN 9.5 g/dl (14.0-18.0); MEAN CORPUSCULAR HGB CONC 36.4 g/dl (32.0-37.0); MEAN CORPUSCULAR VOLUME 90.6 fl (82.0-101.0); PLATELET COUNT 73 10^3/UL (140-415); RED BLOOD COUNT 2.88 10^6/ul (4.70-6.10); RED CELL DISTRIBUTION WIDTH 15.8 % (11.5-14.5); WHITE BLOOD COUNT 27.6 10^3/ul (4.8-10.8)
[2016-08-09 07:24] LABS: CALCIUM 9.9 mg/dl (8.4-10.2); MAGNESIUM 2.1 mg/dl (1.7-2.5); PHOSPHORUS 3.6 mg/dl (2.5-4.9); POTASSIUM 3.6 mmol/L (3.5-5.1)
[2016-08-09 07:32] LABS: CREATININE 3.01 mg/dl (0.61-1.24)
--- NOTE | 2016-08-09 08:03 | CONS ---
Date/Time of Note Date/Time of Note DATE: 08/09/16 TIME: 07:57 Assessment/Plan Assessment/Plan Chief Complaint/Hosp Course 60-year-old right-handed -[place] gentleman normally cared for at the [facility] system. He was admitted to the hospital but it had cardiac arrest in the hospital. Please note that his picture actually looked a bit like adrenal insufficiency except that he has a serum cortisol level of 44 prior to his arrest. He had a TSH of 21 with a low free T4 and a low T3. Patient is intubated and unable to give a history although he is able to look and follows rudimentary commands. At this time many of his metabolic abnormalities have improved. Problems: (1) Diabetes mellitus type 2 in obese Status: Chronic Comment: When not on steroids as patient's sugars generally well controlled. The dosage of the steroid can be tapered down as clinically he is improving nicely. I will of course also decrease the dosage on the insulin. Continued observation. Please note the patient still critically ill (2) Onychomycosis Status: Chronic Comment: He has initiated on appropriate pulse therapy for this. It would be an appropriate consideration to consider having treatment/debridement of his nails. He would be best to do this while he is still sedated so it will be if it is most comfortable. Defer to primary team (3) High anion gap metabolic acidosis Status: Resolved Comment: This is resolved. Please note he is still being over driven by the ventilator. If pulmonary based on his oxygenation status feels that they can back off on the ventilator rate from 30 down to a more typical rate this would be appropriate at this time. For this indication (4) Hematuria of undiagnosed cause Status: Acute Comment: He has persistent hematuria without jacklyn evidence of infection. Will defer off on this to nephrology however is status post for an interesting differential diagnosis. (5) Alcohol abuse Status: Chronic Comment: He is far enough into the hospitalization that the risk of DTs has cleared. He remains on appropriate supportive nutritional therapy. Please note he is receiving NG tube feedings. (6) Hypocalcemia Status: Resolved Comment: This is resolved nicely. (7) Hypothyroidism Status: Chronic Comment: He is on replacement therapy will titrate to effect. Qualifiers: Hypothyroidism type: acquired Qualified Code: E03.9 - Acquired hypothyroidism (8) Acute kidney injury Status: Acute Comment: He is been dialyzed frequently although is trying to produce urine. As per nephrology. (9) Anemia Status: Acute Comment: In addition of the critically ill status he is also had heme positive stools. Will defer to the primary team on this but he is on proton pump inhibitor therapy. Consultation Date/Type/Reason Admit Date/Time August 01, 2016 at 00:50 Initial Consult Date 08/01/16 Type of Consultation: Endocrinology Reason for Consultation Diabetes mellitus type 2; hypothyroidism; high anion gap metabolic acidosis/ resolved; hypocalcemia resolved; Referring Provider: NIKOLE KWON MD, [facility] 24 HR Interval Summary Free Text/Dictation Remains intubated however he does open his eyes and attempts to the speaker in the room Subjective hx not possible: pt critical status Exam/Review of Systems Vital Signs Vitals Vital Signs Date Time Temp Pulse Resp B/P Pulse Ox O2 Delivery O2 Flow Rate FiO2 08/09/16 05:27 77 30 94 55 08/09/16 05:03 135/82 Mechanical Ventilator 08/09/16 04:00 96.8 Intake and Output 08/08/16 08/08/16 08/09/16 15:00 23:00 07:00 Intake Total 1041 ml 430 ml 405 ml Output Total 3570 ml 135 ml 1155 ml Balance -2529 ml 295 ml -750 ml Exam Arousable intubated nonverbal Respiratory: clear to auscultation, normal air movement Cardiovascular: nl pulses, regular rate and rhythm Gastrointestinal: nl liver, spleen, non-tender, soft Results Result Diagram: 08/09/16 0552 08/09/16 0552 Results 24 hrs Laboratory Tests Test 08/08/16 08:40 08/08/16 09:15 08/08/16 09:33 08/08/16 12:00 Bedside Glucose 64 L 95 93 94 Test 08/08/16 16:02 08/08/16 21:13 08/09/16 00:11 08/09/16 05:23 Bedside Glucose 93 75 83 80 Test 08/09/16 05:52 White Blood Count 27.6 H Red Blood Count 2.88 L Hemoglobin 9.5 L Hematocrit 26.1 L Mean Corpuscular Volume 90.6 Mean Corpuscular Hemoglobin 33.0 Mean Corpuscular Hemoglobin Concent 36.4 Red Cell Distribution Width 15.8 H Platelet Count 73 #L Mean Platelet Volume Neutrophils % Lymphocytes % Monocytes % Eosinophils % Neutrophils # Lymphocytes # Monocytes # Eosinophils # Sodium Level 142 Potassium Level 3.6 Chloride Level 106 Carbon Dioxide Level 24 Anion Gap 16 Blood Urea Nitrogen 68 H Creatinine 3.01 H Glucose Level 102 Calcium Level 9.9 Phosphorus Level 3.6 Magnesium Level 2.1 Medications Medications Current Medications Lorazepam (Ativan) 0.5 mg Q6H PRN IV ANXIETY Last administered on 08/07/16 23: 23; Admin Dose 0.5 MG; Start 08/01/16 at 03:00 Ondansetron HCl (Zofran Inj) 4 mg Q6H PRN IV NAUSEA AND/OR VOMITING; Start at 03:00 Metoclopramide HCl (Reglan) 10 mg Q6H PRN IV NAUSEA AND/OR VOMITING; Start at 03:00 Acetaminophen (Tylenol Tab) 650 mg Q6H PRN PO PAIN LEVEL 1-3 OR FEVER; Start at 03:00 Acetaminophen (Tylenol Supp) 650 mg Q4H PRN [place] PAIN LEVEL 1-3 OR FEVER; Start 08/01/16 at 06:30 Pantoprazole 40 mg 40 mg BID@06,18 IV Last administered on 08/09/16 05:14; Admin Dose 40 MG; Start 08/01/16 at 06:00 Propofol 100 ml @ 3.33 mls/hr Q12H IV Last administered on 08/02/16 09:30; Admin Dose 26.64 MLS/HR; Start 08/01/16 at 09:30 Phenylephrine HCl 40 mg/Dextrose 500 ml @ 0 mls/hr TITRATE IV Last administered on 08/02/16 04:58; Admin Dose 112.5 MLS/HR; Start 08/01/16 at 16:00 Norepinephrine 16 mg/Dextrose 500 ml @ 0 mls/hr TITRATE IV Last administered on 08/06/16 00:10; Admin Dose 30 MLS/HR; Start 08/01/16 at 16:00 Vasopressin 60 unit/Dextrose 60 ml @ 1.2 mls/hr Q12H IV Last administered on 03:55; Admin Dose 2.4 MLS/HR; Start 08/01/16 at 17:30 Epinephrine/ Sodium Chloride (EPINEPHrine/NS) 250 ml @ 3.75 mls/hr TITRATE IV Last administered on 08/01/16 18:50; Admin Dose 3.75 MLS/HR; Start 08/01/16 at 19:30 Eye Lubricant (Artificial Tears Oph) 2 drop QID BOTH EYES Last administered on 08/08/16 21:16; Admin Dose 2 DROP; Start 08/02/16 at 09:00 Insulin Aspart (Novolog Insulin Pen) NOVOLOG *MODERATE* ALGORI... Q4 SC Last administered on 08/06/16 05:48; Admin Dose 2 UNIT; Start 08/02/16 at 09:00 Miscellaneous Information 1 ea NOTE XX ; Start 08/02/16 at 09:00 Glucose (Glutose) 15 gm Q15M PRN PO DECREASED GLUCOSE; Start 08/02/16 at 09:00 Glucose (Glutose) 22.5 gm Q15M PRN PO DECREASED GLUCOSE; Start 08/02/16 at 09:00 Dextrose (D50w Syringe) 25 ml Q15M PRN IV DECREASED GLUCOSE Last administered on 08/08/16 08:46; Admin Dose 25 ML; Start 08/02/16 at 09:00 Dextrose (D50w Syringe) 50 ml Q15M PRN IV DECREASED GLUCOSE; Start 08/02/16 at 09:00 Glucagon (Glucagen) 1 mg Q15M PRN IM DECREASED GLUCOSE; Start 08/02/16 at 09:00 Glucose 15 gm 15 gm Q15M PRN BUCCAL DECREASED GLUCOSE; Start 08/02/16 at 09:00 Midazolam HCl 50 ml @ 1 mls/hr TITRATE IV Last administered on 08/09/16 02:27; Admin Dose 5 MLS/HR; Start 08/02/16 at 09:30 Fentanyl (Sublimaze) 100 ml @ 2.5 mls/hr TITRATE IV Last administered on 05:18; Admin Dose 10 MLS/HR; Start 08/02/16 at 09:30 Calcium Carbonate 1250 mg 1,250 mg Q6 NGT Last administered on 08/09/16 05:14; Admin Dose 1,250 MG; Start 08/03/16 at 12:00 Metronidazole 100 ml @ 100 mls/hr Q8 IVPB Last administered on 08/09/16 05:13 ; Admin Dose 100 MLS/HR; Start 08/03/16 at 10:00 Piperacillin Sod/ Tazobactam Sod 100 ml @ 200 mls/hr Q8 IVPB Last administered on 08/09/16 05:13; Admin Dose 200 MLS/HR; Start 08/03/16 at 14:00 Vancomycin HCl/ Sodium Chloride (Vancocin/NS) 250 ml @ 83.333 mls/ hr Q96H IVPB Last administered on 08/06/16 16:00; Admin Dose 83.333 MLS/HR; Start at 16:00 Methylprednisolone Sodium Succinate (Solu-Medrol) 40 mg DAILY IV Last administered on 08/08/16 08:46; Admin Dose 40 MG; Start 08/08/16 at 09:00 Levothyroxine Sodium (Synthroid) 125 mcg DAILY@06 NGT Last administered on 05:14; Admin Dose 125 MCG; Start 08/08/16 at 06:00 Insulin Human NPH (Humulin N) 12 unit DAILY SC ; Start 08/08/16 at 09:00 Epoetin Goran (Epogen (Non Esrd/Non Oncology)) 10,000 units MoWeFr@17 SC Last administered on 08/08/16 16:03; Admin Dose 10,000 UNITS; Start 08/08/16 at 17:00 Terbinafine HCl (Lamisil) 250 mg BID NGT Last administered on 08/08/16 21:16; Admin Dose 250 MG; Start 08/08/16 at 21:00; Stop 08/15/16 at 20:59 ERIN MARTÍNEZ MD Aug 09, 2016 08:03
--- NOTE | 2016-08-09 08:16 | CONS ---
Date/Time of Note Date/Time of Note DATE: 08/09/16 TIME: 08:14 Assessment/Plan Assessment/Plan Chief Complaint/Hosp Course PEA cardiac arrest: secondary to severe metabolic acidosis. No VT/VF or EKG changes to suggest primary cardiac etiology. Trops ok, EF preserved. Acute respiratory failure: intubated during code.Likely ARDS. Starting to improve Severe metabolic acidosis: likely was the culprit for the arrest. HD started Shock: ?septic.Off pressors Acute renal failure: unclear etiology now on HD, making some urine Hypoglycemia Hypothyroidism Diarrhea/n/v/colitis HTN: now elevated -vent management per pulm -HD per nephro -possibly will start antihypertensives tomorrow Problems: Consultation Date/Type/Reason Admit Date/Time August 01, 2016 at 00:50 Initial Consult Date 08/01/16 Type of Consultation: Cardiology Referring Provider: NIKOLE KWON MD, [facility] 24 HR Interval Summary Free Text/Dictation Oxygenation improving. Otherwise stable Exam/Review of Systems Vital Signs Vitals Vital Signs Date Time Temp Pulse Resp B/P Pulse Ox O2 Delivery O2 Flow Rate FiO2 08/09/16 08:10 87 08/09/16 05:27 30 94 55 08/09/16 05:03 135/82 Mechanical Ventilator 08/09/16 04:00 96.8 Intake and Output 08/08/16 08/08/16 08/09/16 15:00 23:00 07:00 Intake Total 1041 ml 430 ml 405 ml Output Total 3570 ml 135 ml 1155 ml Balance -2529 ml 295 ml -750 ml Exam Constitutional: alert Head: atraumatic, normocephalic Neck: No jvd (cant examine ) Respiratory: diminished breath sounds, No clear to auscultation Cardiovascular: edema (1+), regular rate and rhythm, No systolic murmur Gastrointestinal: non-tender, soft Skin: No rash or lesions Results Result Diagram: 08/09/16 0552 08/09/16 0552 Results 24 hrs Laboratory Tests Test 08/08/16 08:40 08/08/16 09:15 08/08/16 09:33 08/08/16 12:00 Bedside Glucose 64 L 95 93 94 Test 08/08/16 16:02 08/08/16 21:13 08/09/16 00:11 08/09/16 05:23 Bedside Glucose 93 75 83 80 Test 08/09/16 05:52 White Blood Count 27.6 H Red Blood Count 2.88 L Hemoglobin 9.5 L Hematocrit 26.1 L Mean Corpuscular Volume 90.6 Mean Corpuscular Hemoglobin 33.0 Mean Corpuscular Hemoglobin Concent 36.4 Red Cell Distribution Width 15.8 H Platelet Count 73 #L Mean Platelet Volume Neutrophils % Lymphocytes % Monocytes % Eosinophils % Neutrophils # Lymphocytes # Monocytes # Eosinophils # Sodium Level 142 Potassium Level 3.6 Chloride Level 106 Carbon Dioxide Level 24 Anion Gap 16 Blood Urea Nitrogen 68 H Creatinine 3.01 H Glucose Level 102 Calcium Level 9.9 Phosphorus Level 3.6 Magnesium Level 2.1 Medications Medications Current Medications Lorazepam (Ativan) 0.5 mg Q6H PRN IV ANXIETY Last administered on 08/07/16 23: 23; Admin Dose 0.5 MG; Start 08/01/16 at 03:00 Ondansetron HCl (Zofran Inj) 4 mg Q6H PRN IV NAUSEA AND/OR VOMITING; Start at 03:00 Metoclopramide HCl (Reglan) 10 mg Q6H PRN IV NAUSEA AND/OR VOMITING; Start at 03:00 Acetaminophen (Tylenol Tab) 650 mg Q6H PRN PO PAIN LEVEL 1-3 OR FEVER; Start at 03:00 Acetaminophen (Tylenol Supp) 650 mg Q4H PRN [place] PAIN LEVEL 1-3 OR FEVER; Start 08/01/16 at 06:30 Pantoprazole 40 mg 40 mg BID@06,18 IV Last administered on 08/09/16 05:14; Admin Dose 40 MG; Start 08/01/16 at 06:00 Propofol 100 ml @ 3.33 mls/hr Q12H IV Last administered on 08/02/16 09:30; Admin Dose 26.64 MLS/HR; Start 08/01/16 at 09:30 Phenylephrine HCl 40 mg/Dextrose 500 ml @ 0 mls/hr TITRATE IV Last administered on 08/02/16 04:58; Admin Dose 112.5 MLS/HR; Start 08/01/16 at 16:00 Norepinephrine 16 mg/Dextrose 500 ml @ 0 mls/hr TITRATE IV Last administered on 08/06/16 00:10; Admin Dose 30 MLS/HR; Start 08/01/16 at 16:00 Vasopressin 60 unit/Dextrose 60 ml @ 1.2 mls/hr Q12H IV Last administered on 03:55; Admin Dose 2.4 MLS/HR; Start 08/01/16 at 17:30 Epinephrine/ Sodium Chloride (EPINEPHrine/NS) 250 ml @ 3.75 mls/hr TITRATE IV Last administered on 08/01/16 18:50; Admin Dose 3.75 MLS/HR; Start 08/01/16 at 19:30 Eye Lubricant (Artificial Tears Oph) 2 drop QID BOTH EYES Last administered on 08/08/16 21:16; Admin Dose 2 DROP; Start 08/02/16 at 09:00 Insulin Aspart (Novolog Insulin Pen) NOVOLOG *MODERATE* ALGORI... Q4 SC Last administered on 08/06/16 05:48; Admin Dose 2 UNIT; Start 08/02/16 at 09:00 Miscellaneous Information 1 ea NOTE XX ; Start 08/02/16 at 09:00 Glucose (Glutose) 15 gm Q15M PRN PO DECREASED GLUCOSE; Start 08/02/16 at 09:00 Glucose (Glutose) 22.5 gm Q15M PRN PO DECREASED GLUCOSE; Start 08/02/16 at 09:00 Dextrose (D50w Syringe) 25 ml Q15M PRN IV DECREASED GLUCOSE Last administered on 08/08/16 08:46; Admin Dose 25 ML; Start 08/02/16 at 09:00 Dextrose (D50w Syringe) 50 ml Q15M PRN IV DECREASED GLUCOSE; Start 08/02/16 at 09:00 Glucagon (Glucagen) 1 mg Q15M PRN IM DECREASED GLUCOSE; Start 08/02/16 at 09:00 Glucose 15 gm 15 gm Q15M PRN BUCCAL DECREASED GLUCOSE; Start 08/02/16 at 09:00 Midazolam HCl 50 ml @ 1 mls/hr TITRATE IV Last administered on 08/09/16 02:27; Admin Dose 5 MLS/HR; Start 08/02/16 at 09:30 Fentanyl (Sublimaze) 100 ml @ 2.5 mls/hr TITRATE IV Last administered on 05:18; Admin Dose 10 MLS/HR; Start 08/02/16 at 09:30 Calcium Carbonate 1250 mg 1,250 mg Q6 NGT Last administered on 08/09/16 05:14; Admin Dose 1,250 MG; Start 08/03/16 at 12:00 Metronidazole 100 ml @ 100 mls/hr Q8 IVPB Last administered on 08/09/16 05:13 ; Admin Dose 100 MLS/HR; Start 08/03/16 at 10:00 Piperacillin Sod/ Tazobactam Sod 100 ml @ 200 mls/hr Q8 IVPB Last administered on 08/09/16 05:13; Admin Dose 200 MLS/HR; Start 08/03/16 at 14:00 Vancomycin HCl/ Sodium Chloride (Vancocin/NS) 250 ml @ 83.333 mls/ hr Q96H IVPB Last administered on 08/06/16 16:00; Admin Dose 83.333 MLS/HR; Start at 16:00 Levothyroxine Sodium (Synthroid) 125 mcg DAILY@06 NGT Last administered on 05:14; Admin Dose 125 MCG; Start 08/08/16 at 06:00 Epoetin Goran (Epogen (Non Esrd/Non Oncology)) 10,000 units MoWeFr@17 SC Last administered on 08/08/16 16:03; Admin Dose 10,000 UNITS; Start 08/08/16 at 17:00 Terbinafine HCl (Lamisil) 250 mg BID NGT Last administered on 08/08/16 21:16; Admin Dose 250 MG; Start 08/08/16 at 21:00; Stop 08/15/16 at 20:59 Methylprednisolone Sodium Succinate (Solu-Medrol) 20 mg DAILY IV ; Start at 09:00 Insulin Human NPH (Humulin N) 6 unit DAILY SC ; Start 08/09/16 at 09:00 SEPIDEH HAN Aug 09, 2016 08:16
--- NOTE | 2016-08-09 08:19 | PN ---
DATE: 08/09/2016 SUBJECTIVE: The patient remains critically ill, but stable. The patient yesterday had hemodialysis again for solute clearance and volume removal, tolerated it well. No other acute events noted. No hemoptysis, hematemesis, hematochezia. The patient's urinary output is marginally improving, curre ntly at 15 to 20 mL an hour. OBJECTIVE: VITAL SIGNS: Blood pressure 135/82, respirations 30, pulse 77, temperature 96.8. HEENT: Head is normocephalic. NECK: Supple. HEART: Regular rate. LUNGS: Show diminished breath sounds at the base. ABDOMEN: Soft, nontender to palpation. No rebound or guarding. EXTREMITIES: Negative for clubbing, cyanosis. Positive edema, improved. DERMATOLOGIC: No rashes. MUSCULOSKELETAL: No joint effusions. NEUROLOGIC: No change in exam. MEDICATIONS: The patient's medications have been reviewed. LABORATORY DATA: From August 09 is pending. IMAGING: Chest x-ray shows patchy opacities, likely multifocal pneumonia, no significant change wit h increased vascular congestion. ASSESSMENT AND PLAN: 1. Nonoliguric acute kidney injury with unknown baseline creatinine. Etiology is felt to be second gian to acute tubular necrosis due to septic shock. The patient is currently dialysis-dependent. Th ere is mild renal recovery. His urinary output has slowly been improving. We will order dialysis a gain today for solute clearance and volume removal as the patient continues to have edema and vascul ar congestion. The patient's urine was evaluated under microscopy. The patient noted to have monom orphic RBCs, no dysmorphic RBCs noted. Otherwise, continue supportive care, renally dose all medica tions, avoid nephrotoxins. 2. Anemia, status post blood transfusion. Continue to monitor hemoglobin and hematocrit levels. C ontinue Epogen. 3. Mineral bone disorder. Continue to monitor calcium and phosphorus levels. No need for phosphat e binders. 4. Volume overload secondary to acute kidney injury, congestive heart failure. The patient is clin ically improving, nearing euvolemic status. 5. Ventilator dependent respiratory failure. Vent settings have been reviewed. ABG has been revie wed. The patient has underlying adult respiratory distress syndrome. Continue medical management. 6. Sepsis, status post shock. The patient is currently off pressors. Continue antibiotic therapy. 7. Acute encephalopathy, etiology is toxic-metabolic. Continue to monitor. 8. Dysphagia, status post percutaneous endoscopic gastrostomy. Continue tube feeding. 9. Hypothyroidism. Continue Synthroid. 10. Status post cardiopulmonary arrest. 11. History of ETOH abuse, continue to monitor. Continue supportive care. 12. Diabetes. Continue Accu-Cheks and insulin sliding scale. 13. Enterocolitis. Continue medical management. 14. Status post metabolic acidosis. Please note I spent over 30 minutes of critical care time with this patient. Dictated By: BALDOMERO TOVAR/CHARLES Conf#: [id number] DID#: [id number]
--- NOTE | 2016-08-09 08:53 | RADRPT ---
PROCEDURE: Chest 1 views. CLINICAL INDICATION: Shortness of breath TECHNIQUE: AP views of the chest was obtained. COMPARISON: Yesterday FINDINGS: The heart is large. Endotracheal and nasogastric tubes are stable and appear in grossly appropriate location. Central pulmonary vascular congestion and interstitial prominence in both lungs is unchan ged. Patchy infiltrates throughout both lungs are stable. The lungs are hypoinflated. Osseous struc tures are unchanged. IMPRESSION: Cardiomegaly . Stable central pulmonary vascular congestion and interstitial prominence in both lungs. Stable patchy infiltrates throughout both lungs. Hypoinflated lungs. RPTAT: AA .Pedro Ramirez MD, MD Date Time Electronically viewed and signed by .Pedro Ramirez MD, MD on 08/09/2016 08:53 .P/
[2016-08-09 08:55] LABS: AADO2 Arterial 294.1 mmHg (7.0-24.0); Allen Test ACCEPTAB; Arterial Base Excess 0.3 mmol/L (-3.0-3); Arterial COHb 0.3 % (0.0-3.0); Arterial Fraction of Oxyhgb 90.3 % (93.0-99.0); Arterial MetHb 0.3 % (0.0-1.5); Arterial Total Hemglobin 10.3 g/dl (12.0-18.0); MODE VENT - AC
[2016-08-09] MEDS ORDERED: ALTEPLASE (CATHFLO) 2 MG INJ CATHETER PRN (09:00)
[2016-08-09] MEDS: PROPOFOL 100 ML IV SCH ×2 (09:30→21:30)
[2016-08-09] MEDS ORDERED: HEPARIN 1000 UNITS/ML 10 ML INJ CATHETER SCH (09:30)
[2016-08-09] MEDS ORDERED: LIDOCAINE 1% (MPF) 5 ML VIAL SC ONE (09:30)
[2016-08-09] MEDS: METHYLPREDNISOLONE 40 MG INJ IV SCH (10:44)
[2016-08-09] MEDS: ARTIFICIAL TEARS 15 ML OPH BOTH EYES SCH ×4 (10:44→20:59)
[2016-08-09] MEDS: NPH, HUMAN INSULIN ISOPHANE 3ML VIAL SC SCH (10:49)
[2016-08-09] MEDS: TERBINAFINE 250 MG TAB NGT SCH ×2 (10:59→20:59)
--- NOTE | 2016-08-09 11:15 | CONS ---
Date/Time of Note Date/Time of Note DATE: 08/09/16 TIME: 11:14 Consult Date/Type/Reason Admit Date/Time August 01, 2016 at 00:50 Initial Consult Date 08/01/16 Type of Consultation: Pulmonary ICU Ordering Provider: NIKOLE KWON MD, [facility] Subjective Patient opens eyes follows simple commands Remains stable off vasopressors Having hemodialysis this morning Decrease oxygen requirement FiO2 55% with a PEEP of 8. Objective Vital Signs Date Time Temp Pulse Resp B/P Pulse Ox O2 Delivery O2 Flow Rate FiO2 08/09/16 10:13 82 30 08/09/16 05:27 94 55 08/09/16 05:03 135/82 Mechanical Ventilator 08/09/16 04:00 96.8 Intake and Output 08/08/16 08/08/16 08/09/16 14:59 22:59 06:59 Intake Total 808 ml 618 ml 460 ml Output Total 3560 ml 125 ml 1175 ml Balance -2752 ml 493 ml -715 ml Exam PHYSICAL EXAMINATION: GENERAL: Well-nourished well-developed gentleman on mechanical ventilation VITAL SIGNS: HEENT: Dry mucous membranes. Pupils minimally responsive CARDIAC: S1, S2, no added sounds or murmurs. CHEST: Diminished air entry bilaterally with rales. ABDOMEN: Soft, nontender. No guarding or rebound. EXTREMITIES: No cyanosis, clubbing or edema. NEUROLOGIC: Generalized weakness. Unable to assess. Results/Medications Result Diagram: 08/09/16 0552 08/09/16 0552 Results 24 hrs Laboratory Tests Test 08/08/16 12:00 08/08/16 16:02 08/08/16 21:13 08/09/16 00:11 Bedside Glucose 94 93 75 83 Test 08/09/16 05:23 08/09/16 05:52 08/09/16 07:00 08/09/16 09:38 Bedside Glucose 80 135 White Blood Count 27.6 H Red Blood Count 2.88 L Hemoglobin 9.5 L Hematocrit 26.1 L Mean Corpuscular Volume 90.6 Mean Corpuscular Hemoglobin 33.0 Mean Corpuscular Hemoglobin Concent 36.4 Red Cell Distribution Width 15.8 H Platelet Count 73 #L Mean Platelet Volume Neutrophils % Lymphocytes % Monocytes % Eosinophils % Neutrophils # Lymphocytes # Monocytes # Eosinophils # Sodium Level 142 Potassium Level 3.6 Chloride Level 106 Carbon Dioxide Level 24 Anion Gap 16 Blood Urea Nitrogen 68 H Creatinine 3.01 H Glucose Level 102 Calcium Level 9.9 Phosphorus Level 3.6 Magnesium Level 2.1 Blood Gas Specimen Source Blood arterial Arterial Blood Date Drawn 08/09/2016 7:30:35 AM Arterial Blood pH (Temp corrected) 7.493 H Arterial Blood pCO2 (Temp correct) 30.7 L Arterial Blood pO2 (Temp corrected) 63.9 L Arterial Blood HCO3 23.0 Arterial Blood Base Excess 0.3 Arterial Blood Oxygen Saturation 90.8 L Stanley Test ACCEPTAB Arterial Blood Gas Puncture Site Left Radial Arterial Blood Carboxyhemoglobin 0.3 Arterial Blood Methemoglobin 0.3 Blood Gas A-a O2 Differential 294.1 H Oxyhemoglobin Percent 90.3 L Total Hemoglobin 10.3 L Blood Gas Temperature 37.0 Blood Gas Respiration Rate 30.0 Blood Gas Actual Respiration Rate 30 Blood Gas Modality VENT - AC FiO2 55.0 Blood Gas Tidal Volume 570.0 Blood Gas Low PEEP Setting 8.0 Blood Gas Notified Whom JLD Blood Gas Notified Time 08/09/2016 8:10:15 AM Medications Current Medications Lorazepam (Ativan) 0.5 mg Q6H PRN IV ANXIETY Last administered on 08/07/16 23: 23; Admin Dose 0.5 MG; Start 08/01/16 at 03:00 Ondansetron HCl (Zofran Inj) 4 mg Q6H PRN IV NAUSEA AND/OR VOMITING; Start at 03:00 Metoclopramide HCl (Reglan) 10 mg Q6H PRN IV NAUSEA AND/OR VOMITING; Start at 03:00 Acetaminophen (Tylenol Tab) 650 mg Q6H PRN PO PAIN LEVEL 1-3 OR FEVER; Start at 03:00 Acetaminophen (Tylenol Supp) 650 mg Q4H PRN ID PAIN LEVEL 1-3 OR FEVER; Start 08/01/16 at 06:30 Pantoprazole 40 mg 40 mg BID@06,18 IV Last administered on 08/09/16 05:14; Admin Dose 40 MG; Start 08/01/16 at 06:00 Propofol 100 ml @ 3.33 mls/hr Q12H IV Last administered on 08/02/16 09:30; Admin Dose 26.64 MLS/HR; Start 08/01/16 at 09:30 Phenylephrine HCl 40 mg/Dextrose 500 ml @ 0 mls/hr TITRATE IV Last administered on 08/02/16 04:58; Admin Dose 112.5 MLS/HR; Start 08/01/16 at 16:00 Norepinephrine 16 mg/Dextrose 500 ml @ 0 mls/hr TITRATE IV Last administered on 08/06/16 00:10; Admin Dose 30 MLS/HR; Start 08/01/16 at 16:00 Vasopressin 60 unit/Dextrose 60 ml @ 1.2 mls/hr Q12H IV Last administered on 03:55; Admin Dose 2.4 MLS/HR; Start 08/01/16 at 17:30 Epinephrine/ Sodium Chloride (EPINEPHrine/NS) 250 ml @ 3.75 mls/hr TITRATE IV Last administered on 08/01/16 18:50; Admin Dose 3.75 MLS/HR; Start 08/01/16 at 19:30 Eye Lubricant (Artificial Tears Oph) 2 drop QID BOTH EYES Last administered on 08/09/16 10:44; Admin Dose 2 DROP; Start 08/02/16 at 09:00 Insulin Aspart (Novolog Insulin Pen) NOVOLOG *MODERATE* ALGORI... Q4 SC Last administered on 08/06/16 05:48; Admin Dose 2 UNIT; Start 08/02/16 at 09:00 Miscellaneous Information 1 ea NOTE XX ; Start 08/02/16 at 09:00 Glucose (Glutose) 15 gm Q15M PRN PO DECREASED GLUCOSE; Start 08/02/16 at 09:00 Glucose (Glutose) 22.5 gm Q15M PRN PO DECREASED GLUCOSE; Start 08/02/16 at 09:00 Dextrose (D50w Syringe) 25 ml Q15M PRN IV DECREASED GLUCOSE Last administered on 08/08/16 08:46; Admin Dose 25 ML; Start 08/02/16 at 09:00 Dextrose (D50w Syringe) 50 ml Q15M PRN IV DECREASED GLUCOSE; Start 08/02/16 at 09:00 Glucagon (Glucagen) 1 mg Q15M PRN IM DECREASED GLUCOSE; Start 08/02/16 at 09:00 Glucose 15 gm 15 gm Q15M PRN BUCCAL DECREASED GLUCOSE; Start 08/02/16 at 09:00 Midazolam HCl 50 ml @ 1 mls/hr TITRATE IV Last administered on 08/09/16 02:27; Admin Dose 5 MLS/HR; Start 08/02/16 at 09:30 Fentanyl (Sublimaze) 100 ml @ 2.5 mls/hr TITRATE IV Last administered on 05:18; Admin Dose 10 MLS/HR; Start 08/02/16 at 09:30 Calcium Carbonate 1250 mg 1,250 mg Q6 NGT Last administered on 08/09/16 05:14; Admin Dose 1,250 MG; Start 08/03/16 at 12:00 Metronidazole 100 ml @ 100 mls/hr Q8 IVPB Last administered on 08/09/16 05:13 ; Admin Dose 100 MLS/HR; Start 08/03/16 at 10:00 Piperacillin Sod/ Tazobactam Sod 100 ml @ 200 mls/hr Q8 IVPB Last administered on 08/09/16 05:13; Admin Dose 200 MLS/HR; Start 08/03/16 at 14:00 Vancomycin HCl/ Sodium Chloride (Vancocin/NS) 250 ml @ 83.333 mls/ hr Q96H IVPB Last administered on 08/06/16 16:00; Admin Dose 83.333 MLS/HR; Start at 16:00 Levothyroxine Sodium (Synthroid) 125 mcg DAILY@06 NGT Last administered on 05:14; Admin Dose 125 MCG; Start 08/08/16 at 06:00 Epoetin Goran (Epogen (Non Esrd/Non Oncology)) 10,000 units MoWeFr@17 SC Last administered on 08/08/16 16:03; Admin Dose 10,000 UNITS; Start 08/08/16 at 17:00 Terbinafine HCl (Lamisil) 250 mg BID NGT Last administered on 08/09/16 10:59; Admin Dose 250 MG; Start 08/08/16 at 21:00; Stop 08/15/16 at 20:59 Methylprednisolone Sodium Succinate (Solu-Medrol) 20 mg DAILY IV Last administered on 08/09/16 10:44; Admin Dose 20 MG; Start 08/09/16 at 09:00 Insulin Human NPH (Humulin N) 6 unit DAILY SC Last administered on 6/8/17at 10: 49; Admin Dose 6 UNIT; Start 08/09/16 at 09:00 Heparin Sodium (Porcine) (Heparin (1000 Units/ml)) 4,000 unit ONCE CATHETER ; Start 08/09/16 at 09:30; Stop 08/10/16 at 09:29 Assessment/Plan Chief Complaint/Hosp Course IMPRESSION 1. Acute renal failure with severe metabolic acidosis, etiology of which remains unclear, possible acute tubular necrosis injury versus prerenal. 2. Respiratory failure secondary to significant metabolic acidosis and subsequent cardiac arrest. ARDS radiographically. Improved oxygenation 3. Severe hypothyroidism 4. History of ETOH. 5. Status post septic shock requiring vasopressors. Persistent leukocytosis despite decreasing steroids. Possible line sepsis will DC central line placed PICC line. Consider removal of Deni catheter in the groin 6. Acute anemia possibly underlying GI bleed status post packed red cell transfusion 7. Insulin-dependent diabetes 8. Dysphagia secondary to above PLAN: 1. Improved metabolic acidosis DC bicarbonate 2. Renal consult. Continue hemodialysis as tolerated 3. Endocrinology consult. Appreciated 4. Vasopressors if needed 5. DVT and GI prophylaxis. 6. Continue antibiotics ID consult, consider removal of central lines in groin 7. Continue decreased steroids 8. Continue insulin will need adjustment given decrease in steroid dose 9. Continue nasogastric tube feeding as tolerated Overall prognosis remains guarded Problems: NIKOLE KWON MD, [facility] Aug 09, 2016 11:15
[2016-08-09 11:20] LABS: LYMPHOCYTES # 1.7 10^3/ul (0.8-2.9); MONOCYTE # 1.1 10^3/ul (0.3-0.9); NEUTROPHIL # 22.9 10^3/ul (1.6-7.5); PLATELET ESTIMATE PLT APPEAR DECREASED
--- NOTE | 2016-08-09 13:36 | PN ---
Date/Time of Note Date/Time of Note DATE: 08/09/16 TIME: 13:32 Assessment/Plan VTE Prophylaxis VTE Prophylaxis Intervention: SCD's Assessment/Plan Chief Complaint/Hosp Course 1. Status post cardiac arrest with ROSC 2/2 severe metabolic acidosis from #4 2. Acute encephalopathy secondary to #1 [toxic metabolic] 3. Ventilator dependent respiratory failure with probable ARDS and pulmonary edema per pulmonary 4. Severe acute renal failure now on hemodialysis with unknown baseline thought to be secondary to severe ATN 5. Severe Sepsis with septic shock and lactic acidosis on pressors 6. Newly diagnosed Hypothyroidism 7. Chronic Alcohol use and abuse 8. Anemia likely secondary to chronic disease but a component of malnutrition from chronic alcohol abuse 9. Enterocolitis 10. Thrombocytopenia which could be as a result of liver disease, will have to rule out heparin-induced thrombocytopenia 11. Severe fatty liver with Transaminitis and mild hyperbilirubinemia indicating a measure of chronic liver disease vs shock liver 12. Bilateral pneumonia likely aspiration 13. Coagulase neg Staph UTI 14. Hypophosphatemia 15. Steroid-induced hyperglycemia vs type 2 DM requiring low-dose Lantus and NPH 16. Positive stool occult blood on twice daily PPI PLAN: Continue broad-spectrum antibiotics with IV vancomycin and Zosyn, cultures are insignificant at this time Continue to wean pressors Continue hemodialysis per nephrology Continue vent management and weaning, patient may need trach if unable to wean off vent Endocrinology managing sugars and thyroid profile Continue serial electrolyte monitoring and replenishment Continue supportive ICU care, palliative care is following Prophylaxis : SCDS / PPI Problems: Subjective 24 Hr Interval Summary Subjective hx not possible: pt non-verbal Exam/Review of Systems Vital Signs Vitals Vital Signs Date Time Temp Pulse Resp B/P Pulse Ox O2 Delivery O2 Flow Rate FiO2 08/09/16 12:00 76 08/09/16 11:20 30 98 55 08/09/16 05:03 135/82 Mechanical Ventilator 08/09/16 04:00 96.8 Intake and Output 08/08/16 08/08/16 08/09/16 15:00 23:00 07:00 Intake Total 1041 ml 430 ml 405 ml Output Total 3570 ml 135 ml 1155 ml Balance -2529 ml 295 ml -750 ml Exam Constitutional: non-verbal Respiratory: clear to auscultation Cardiovascular: regular rate and rhythm Gastrointestinal: soft, No distended Musculoskeletal: nl extremities to inspection Results Result Diagram: 08/09/16 0552 08/09/16 0552 Results 24 hrs Laboratory Tests Test 08/08/16 16:02 08/08/16 21:13 08/09/16 00:11 08/09/16 05:23 Bedside Glucose 93 75 83 80 Test 08/09/16 05:52 08/09/16 07:00 08/09/16 09:38 08/09/16 12:51 White Blood Count 27.6 H Red Blood Count 2.88 L Hemoglobin 9.5 L Hematocrit 26.1 L Mean Corpuscular Volume 90.6 Mean Corpuscular Hemoglobin 33.0 Mean Corpuscular Hemoglobin Concent 36.4 Red Cell Distribution Width 15.8 H Platelet Count 73 #L Mean Platelet Volume Neutrophils % 83.0 H Band Neutrophils % 4.0 Lymphocytes % 6.0 L Monocytes % 4.0 Eosinophils % Metamyelocytes % 2.0 H Promyelocytes % 1.0 H Nucleated Red Blood Cells % 13.0 H Neutrophils # 22.9 H Lymphocytes # 1.7 Monocytes # 1.1 H Eosinophils # Metamyelocytes # 0.6 Promyelocytes # 0.3 Platelet Estimate PLT APPEAR DECREASED Large Platelets OCCASIONAL Sodium Level 142 Potassium Level 3.6 Chloride Level 106 Carbon Dioxide Level 24 Anion Gap 16 Blood Urea Nitrogen 68 H Creatinine 3.01 H Glucose Level 102 Calcium Level 9.9 Phosphorus Level 3.6 Magnesium Level 2.1 Blood Gas Specimen Source Blood arterial Arterial Blood Date Drawn 08/09/2016 7:30:35 AM Arterial Blood pH (Temp corrected) 7.493 H Arterial Blood pCO2 (Temp correct) 30.7 L Arterial Blood pO2 (Temp corrected) 63.9 L Arterial Blood HCO3 23.0 Arterial Blood Base Excess 0.3 Arterial Blood Oxygen Saturation 90.8 L Stanley Test ACCEPTAB Arterial Blood Gas Puncture Site Left Radial Arterial Blood Carboxyhemoglobin 0.3 Arterial Blood Methemoglobin 0.3 Blood Gas A-a O2 Differential 294.1 H Oxyhemoglobin Percent 90.3 L Total Hemoglobin 10.3 L Blood Gas Temperature 37.0 Blood Gas Respiration Rate 30.0 Blood Gas Actual Respiration Rate 30 Blood Gas Modality VENT - AC FiO2 55.0 Blood Gas Tidal Volume 570.0 Blood Gas Low PEEP Setting 8.0 Blood Gas Notified Whom JLD Blood Gas Notified Time 08/09/2016 8:10:15 AM Bedside Glucose 135 123 Medications Medications Current Medications Lorazepam (Ativan) 0.5 mg Q6H PRN IV ANXIETY Last administered on 08/07/16 23: 23; Admin Dose 0.5 MG; Start 08/01/16 at 03:00 Ondansetron HCl (Zofran Inj) 4 mg Q6H PRN IV NAUSEA AND/OR VOMITING; Start at 03:00 Metoclopramide HCl (Reglan) 10 mg Q6H PRN IV NAUSEA AND/OR VOMITING; Start at 03:00 Acetaminophen (Tylenol Tab) 650 mg Q6H PRN PO PAIN LEVEL 1-3 OR FEVER; Start at 03:00 Acetaminophen (Tylenol Supp) 650 mg Q4H PRN ND PAIN LEVEL 1-3 OR FEVER; Start 08/01/16 at 06:30 Pantoprazole 40 mg 40 mg BID@06,18 IV Last administered on 08/09/16 05:14; Admin Dose 40 MG; Start 08/01/16 at 06:00 Propofol 100 ml @ 3.33 mls/hr Q12H IV Last administered on 08/02/16 09:30; Admin Dose 26.64 MLS/HR; Start 08/01/16 at 09:30 Phenylephrine HCl 40 mg/Dextrose 500 ml @ 0 mls/hr TITRATE IV Last administered on 08/02/16 04:58; Admin Dose 112.5 MLS/HR; Start 08/01/16 at 16:00 Norepinephrine 16 mg/Dextrose 500 ml @ 0 mls/hr TITRATE IV Last administered on 08/06/16 00:10; Admin Dose 30 MLS/HR; Start 08/01/16 at 16:00 Vasopressin 60 unit/Dextrose 60 ml @ 1.2 mls/hr Q12H IV Last administered on 03:55; Admin Dose 2.4 MLS/HR; Start 08/01/16 at 17:30 Epinephrine/ Sodium Chloride (EPINEPHrine/NS) 250 ml @ 3.75 mls/hr TITRATE IV Last administered on 08/01/16 18:50; Admin Dose 3.75 MLS/HR; Start 08/01/16 at 19:30 Eye Lubricant (Artificial Tears Oph) 2 drop QID BOTH EYES Last administered on 08/09/16 12:52; Admin Dose 2 DROP; Start 08/02/16 at 09:00 Insulin Aspart (Novolog Insulin Pen) NOVOLOG *MODERATE* ALGORI... Q4 SC Last administered on 08/06/16 05:48; Admin Dose 2 UNIT; Start 08/02/16 at 09:00 Miscellaneous Information 1 ea NOTE XX ; Start 08/02/16 at 09:00 Glucose (Glutose) 15 gm Q15M PRN PO DECREASED GLUCOSE; Start 08/02/16 at 09:00 Glucose (Glutose) 22.5 gm Q15M PRN PO DECREASED GLUCOSE; Start 08/02/16 at 09:00 Dextrose (D50w Syringe) 25 ml Q15M PRN IV DECREASED GLUCOSE Last administered on 08/08/16 08:46; Admin Dose 25 ML; Start 08/02/16 at 09:00 Dextrose (D50w Syringe) 50 ml Q15M PRN IV DECREASED GLUCOSE; Start 08/02/16 at 09:00 Glucagon (Glucagen) 1 mg Q15M PRN IM DECREASED GLUCOSE; Start 08/02/16 at 09:00 Glucose 15 gm 15 gm Q15M PRN BUCCAL DECREASED GLUCOSE; Start 08/02/16 at 09:00 Midazolam HCl 50 ml @ 1 mls/hr TITRATE IV Last administered on 08/09/16 02:27; Admin Dose 5 MLS/HR; Start 08/02/16 at 09:30 Fentanyl (Sublimaze) 100 ml @ 2.5 mls/hr TITRATE IV Last administered on 05:18; Admin Dose 10 MLS/HR; Start 08/02/16 at 09:30 Calcium Carbonate 1250 mg 1,250 mg Q6 NGT Last administered on 08/09/16 12:52; Admin Dose 1,250 MG; Start 08/03/16 at 12:00 Metronidazole 100 ml @ 100 mls/hr Q8 IVPB Last administered on 08/09/16 05:13 ; Admin Dose 100 MLS/HR; Start 08/03/16 at 10:00 Piperacillin Sod/ Tazobactam Sod 100 ml @ 200 mls/hr Q8 IVPB Last administered on 08/09/16 05:13; Admin Dose 200 MLS/HR; Start 08/03/16 at 14:00 Vancomycin HCl/ Sodium Chloride (Vancocin/NS) 250 ml @ 83.333 mls/ hr Q96H IVPB Last administered on 08/06/16 16:00; Admin Dose 83.333 MLS/HR; Start at 16:00 Levothyroxine Sodium (Synthroid) 125 mcg DAILY@06 NGT Last administered on 05:14; Admin Dose 125 MCG; Start 08/08/16 at 06:00 Epoetin Goran (Epogen (Non Esrd/Non Oncology)) 10,000 units MoWeFr@17 SC Last administered on 08/08/16 16:03; Admin Dose 10,000 UNITS; Start 08/08/16 at 17:00 Terbinafine HCl (Lamisil) 250 mg BID NGT Last administered on 08/09/16 10:59; Admin Dose 250 MG; Start 08/08/16 at 21:00; Stop 08/15/16 at 20:59 Methylprednisolone Sodium Succinate (Solu-Medrol) 20 mg DAILY IV Last administered on 08/09/16 10:44; Admin Dose 20 MG; Start 08/09/16 at 09:00 Insulin Human NPH (Humulin N) 6 unit DAILY SC Last administered on 08/09/16 10: 49; Admin Dose 6 UNIT; Start 08/09/16 at 09:00 Heparin Sodium (Porcine) (Heparin (1000 Units/ml)) 4,000 unit ONCE CATHETER ; Start 08/09/16 at 09:30; Stop 08/10/16 at 09:29 SANYA SMILEY Aug 09, 2016 13:36
--- NOTE | 2016-08-09 16:07 | PN ---
DATE: 08/09/2016 INFECTIOUS DISEASE PROGRESS NOTE SUBJECTIVE: No events. The patient is intubated and sedated, looks comfortable , no fevers. Actually seems more like hypothermic. VITAL SIGNS: Pulse 86, respirations 30, blood pressure 135/82, saturation 95 on FIO2 of 55: WBC 27.6, H and H 9.5 and 26.1, platelets 73, neutrophils 83, bands 4, lymphs 6, monos 4. BUN 68, creatinine 3.01. DIAGNOSTICS: Chest x-ray this morning revealed stable congestion and patchy infiltrates. INDWELLINGS: Endotracheal tube, left femoral triple lumen catheter, right femoral Dein catheter. ANTIMICROBIALS: The patient is on: 1. Vancomycin. 2. Zosyn. 3. Flagyl. 4. He is also on steroids. MICROBIOLOGY: Blood cultures have been negative. Urine culture negative. Stool for C. diff also came back negative. PHYSICAL EXAMINATION: GENERAL: Chronically ill-appearing, middle-aged man who is intubated and sedated, in no distress. HEENT: Head atraumatic, normocephalic. Sclerae anicteric. Buccal mucosa dry. NECK: Supple, trachea midline. CHEST: Rise symmetrical. Breath sounds diminished to bases. HEART: S1, S2. ABDOMEN: Distended, soft. Bowel tones hypoactive. EXTREMITIES: Bilateral edema. ASSESSMENT: 1. Sepsis with persistent leukocytosis, status post vasopressive support. So far cultures have been negative. 2. Acute respiratory failure. 3. Acute kidney injury, started on hemodialysis. 4. Status post cardiopulmonary arrest. 5. Encephalopathy. 6. History of ETOH abuse. 7. Diarrhea. PLAN: The patient remains stable off pressors. He is also on steroids that could account for his leukocytosis; however, those are being titrated down, now on 20 mg Solu-Medrol daily. We are going to repeat blood cultures today. We will send sputum for culture. Continue him on current regimen for now and follow recommendations of consultants. Dictated By: RADHA ESCALANTE OIL WINTERIZER for BLANCA SHELTON/CHARLES Conf#: [id number] DID#: [id number] JOCELYN
[2016-08-09] MEDS ORDERED: NACL 3% FOR INHALATION 15 ML NEBU NEB ONE (16:30)
[2016-08-10] VITALS (39 sets, daily range): BP systolic 85–172; BP diastolic 63–107; PULSE 70–96; RESP 21–38
[2016-08-10] MEDS: CA CARBONATE (250 MG/ML) 5ML CUP NGT SCH ×5 (00:58→23:46)
[2016-08-10] MEDS: INSULIN ASPART [NOVOLOG] 3 ML PEN SC SCH ×6 (01:00→21:00)
[2016-08-10] MEDS: LEVOTHYROXINE 125 MCG TAB NGT SCH (05:26)
[2016-08-10] MEDS: PANTOPRAZOLE 40 MG INJ IV SCH ×2 (05:26→17:32)
[2016-08-10] MEDS: PIPER-TAZO 3.375 GM IV (PMX) 100 ML IVPB SCH ×3 (05:26→21:11)
[2016-08-10] MEDS: VASOPRESSIN 60 UNIT in DEXTROSE 5% 57 ML IV SCH ×2 (05:30→17:30)
[2016-08-10] MEDS: metroNIDAZOLE 500 MG/NS (PMX) 100 ML IVPB SCH ×3 (06:00→21:11)
[2016-08-10] MEDS: MIDAZOLAM (DRIP) 50 mg/50 mL 50 ML IV SCH ×3 (06:48→23:46)
[2016-08-10 07:02] LABS: ADD SCAN DIFF NO
[2016-08-10 07:06] LABS: ABNORMAL IP MESSAGE 1; BASOPHILS % 0.2 % (0.0-2.0); EOSINOPHILS % 0.1 % (0.0-7.0); HEMATOCRIT 27.7 % (42.0-52.0); HEMOGLOBIN 9.9 g/dl (14.0-18.0); LYMPHOCYTES # 1.7 10^3/ul (0.8-2.9); MEAN CORPUSCULAR HEMOGLOBIN 32.8 pg (29.0-33.0); MEAN CORPUSCULAR HGB CONC 35.7 g/dl (32.0-37.0); MEAN CORPUSCULAR VOLUME 91.7 fl (82.0-101.0); MONOCYTE # 1.6 10^3/ul (0.3-0.9); MONOCYTES % 6.6 % (0.0-11.0); NEUTROPHIL # 18.4 10^3/ul (1.6-7.5); NEUTROPHILS % 74.8 % (39.0-77.0); NUCLEATED RED BLOOD CELLS% 8.3 /100WBC (0.0-0.0); PLATELET COUNT 73 10^3/UL (140-415); RED BLOOD COUNT 3.02 10^6/ul (4.70-6.10); RED CELL DISTRIBUTION WIDTH 15.9 % (11.5-14.5); WHITE BLOOD COUNT 24.6 10^3/ul (4.8-10.8)
--- NOTE | 2016-08-10 07:23 | PN ---
DATE: 08/10/2016 SUBJECTIVE: The patient remains critically ill, on full ventilatory support. The patient had hemod ialysis yesterday, tolerated well. No other events noted. The patient's urinary output is improvin g, about 30 mL an hour. OBJECTIVE: VITAL SIGNS: Blood pressure 129/93, respiration 30, pulse 82, temperature 98.4. HEENT: Head is normocephalic. NECK: Supple. HEART: Regular rate. LUNGS: Show diminished breath sounds at base. ABDOMEN: Soft, nontender to palpation without rebound or guarding. EXTREMITIES: Negative for clubbing, cyanosis. Positive edema. DERMATOLOGIC: No rashes. MUSCULOSKELETAL: No joint effusions. NEUROLOGIC: No change in exam. MEDICATIONS: The patient's medications have been reviewed. LABORATORY DATA: Shows sodium 142, potassium 2.6, chloride 106, BUN 68, creatinine 3.0. White coun t is 27, hemoglobin 9.5, hematocrit 26.1, platelet count is 73. The patient's cultures have been re viewed. X-ray was reviewed. ASSESSMENT AND PLAN: 1. Nonoliguric acute kidney injury with unknown baseline creatinine. Etiology secondary to acute t ubular necrosis due to septic shock. The patient is currently dialysis dependent. The patient's ur inary output has been improving. Plan is to hold dialysis today and observe renal recovery. We wou ld anticipate hemodialysis tomorrow. Otherwise, continue supportive care, renally dose all meds, av oid nephrotoxins. 2. Hematuria. Etiology is likely traumatic. The patient's urinalysis was reviewed under microscop y. No evidence of dysmorphic cells. We will continue to monitor and repeat a urinalysis. 3. Anemia, status post blood transfusion. Continue to monitor hemoglobin and hematocrit levels. C ontinue Epogen. 4. Mineral bone disorder. Continue to monitor calcium and phosphorus levels. No need for phosphat e binders. 5. Volume overload secondary to acute kidney injury on chronic kidney disease. The patient is clin ically improving. We will continue ultrafiltration with hemodialysis. We will consider starting di uretics. 6. Ventilatory dependent respiratory distress. Vent settings have been reviewed. ABG is reviewed. Continue to monitor. Follow up with pulmonary. 7. Sepsis, status post shock. The patient is currently off pressors. Continue antibiotic regimen. 8. Acute encephalopathy, etiology is toxic metabolic. Continue to monitor. 9. Dysphagia status post PEG. Continue tube feeding. 10. Hypothyroidism. Continue Synthroid. 11. History of ETOH abuse. Continue to monitor. 12. Diabetes. Continue current insulin regimen. 13. Enterocolitis. Continue medical management. 14. Status post cardiopulmonary arrest. Please note I spent over 30 minutes of critical care time with this patient. Dictated By: BALDOMERO TOVAR/CHARLES Conf#: [id number] DID#: [id number]
[2016-08-10 07:35] LABS: CALCIUM 9.7 mg/dl (8.4-10.2); CREATININE 2.48 mg/dl (0.61-1.24); MAGNESIUM 2.1 mg/dl (1.7-2.5); PHOSPHORUS 3.4 mg/dl (2.5-4.9); POTASSIUM 3.7 mmol/L (3.5-5.1)
--- NOTE | 2016-08-10 08:33 | CONS ---
Date/Time of Note Date/Time of Note DATE: 08/10/16 TIME: 08:30 Assessment/Plan Assessment/Plan Chief Complaint/Hosp Course 60-year-old right-handed -[place]iquais gentleman normally cared for at the [facility] system. He was admitted to the hospital but it had cardiac arrest in the hospital. Please note that his picture actually looked a bit like adrenal insufficiency except that he has a serum cortisol level of 44 prior to his arrest. He had a TSH of 21 with a low free T4 and a low T3. Patient is intubated and unable to give a history although he is able to look and follows rudimentary commands. At this time many of his metabolic abnormalities have improved. Problems: (1) Abnormal LFTs Status: Acute Comment: I have gone ahead and sent hepatitis serologies. Most likely this is alcoholic fatty liver disease in combination with shock liver. He is clear (2) Acute kidney injury Status: Acute Comment: This is improving steadily but slowly. Hematuria still is present (3) Hypothyroidism Status: Chronic Comment: Remains on treatment. Qualifiers: Hypothyroidism type: acquired Qualified Code: E03.9 - Acquired hypothyroidism (4) Diabetes mellitus type 2 in obese Status: Chronic Comment: Sugars well controlled. Discontinuation of the steroids as per the pulmonary team (5) Hematuria of undiagnosed cause Status: Acute Comment: As per nephrology. (6) High anion gap metabolic acidosis Status: Resolved Comment: Still do not have the formal diagnosis on the some labs are still pending. Consultation Date/Type/Reason Admit Date/Time August 01, 2016 at 00:50 Initial Consult Date 08/01/16 Type of Consultation: Endocrinology Reason for Consultation Hypothyroidism; steroid-induced hyperglycemia; acute kidney injury; acute respiratory failure; high anion gap metabolic acidosis; hypocalcemia. Referring Provider: NIKOLE KWON MD, [facility] 24 HR Interval Summary Free Text/Dictation Patient is on IV sedation is more sedated today than he was yesterday Subjective hx not possible: pt non-verbal, pt critical status Exam/Review of Systems Vital Signs Vitals Vital Signs Date Time Temp Pulse Resp B/P Pulse Ox O2 Delivery O2 Flow Rate FiO2 08/10/16 07:00 81 30 158/84 Mechanical Ventilator 08/10/16 06:00 96 08/10/16 05:08 50 08/10/16 04:00 98.4 Intake and Output 08/09/16 08/09/16 08/10/16 15:00 23:00 07:00 Intake Total 860 ml 754 ml 509 ml Output Total 2960 ml 225 ml 250 ml Balance -2100 ml 529 ml 259 ml Exam Sedated nonresponsive today Neck: non-tender, supple Respiratory: clear to auscultation, normal air movement Cardiovascular: nl pulses, regular rate and rhythm Results Result Diagram: 08/10/16 0550 08/10/16 0550 Results 24 hrs Laboratory Tests Test 08/09/16 09:38 08/09/16 12:51 08/09/16 18:31 08/09/16 21:03 Bedside Glucose 135 123 127 103 Test 08/10/16 01:02 08/10/16 05:24 08/10/16 05:50 Bedside Glucose 94 100 White Blood Count 24.6 H Red Blood Count 3.02 L Hemoglobin 9.9 L Hematocrit 27.7 L Mean Corpuscular Volume 91.7 Mean Corpuscular Hemoglobin 32.8 Mean Corpuscular Hemoglobin Concent 35.7 Red Cell Distribution Width 15.9 H Platelet Count 73 L Mean Platelet Volume Neutrophils % 74.8 Lymphocytes % 7.0 L Monocytes % 6.6 Eosinophils % 0.1 Basophils % 0.2 Nucleated Red Blood Cells % 8.3 H Neutrophils # 18.4 H Lymphocytes # 1.7 Monocytes # 1.6 H Eosinophils # 0.0 Basophils # 0.0 Nucleated Red Blood Cells # 2.0 H Sodium Level 142 Potassium Level 3.7 Chloride Level 106 Carbon Dioxide Level 29 Anion Gap 11 Blood Urea Nitrogen 62 H Creatinine 2.48 H Glucose Level 94 Calcium Level 9.7 Phosphorus Level 3.4 Magnesium Level 2.1 Medications Medications Current Medications Lorazepam (Ativan) 0.5 mg Q6H PRN IV ANXIETY Last administered on 08/07/16t 23: 23; Admin Dose 0.5 MG; Start 08/01/16 at 03:00 Ondansetron HCl (Zofran Inj) 4 mg Q6H PRN IV NAUSEA AND/OR VOMITING; Start at 03:00 Metoclopramide HCl (Reglan) 10 mg Q6H PRN IV NAUSEA AND/OR VOMITING; Start at 03:00 Acetaminophen (Tylenol Tab) 650 mg Q6H PRN PO PAIN LEVEL 1-3 OR FEVER; Start at 03:00 Acetaminophen (Tylenol Supp) 650 mg Q4H PRN [place] PAIN LEVEL 1-3 OR FEVER; Start 08/01/16 at 06:30 Pantoprazole 40 mg 40 mg BID@06,18 IV Last administered on 08/10/16 05:26; Admin Dose 40 MG; Start 08/01/16 at 06:00 Propofol 100 ml @ 3.33 mls/hr Q12H IV Last administered on 08/02/16 09:30; Admin Dose 26.64 MLS/HR; Start 08/01/16 at 09:30 Phenylephrine HCl 40 mg/Dextrose 500 ml @ 0 mls/hr TITRATE IV Last administered on 08/02/16 04:58; Admin Dose 112.5 MLS/HR; Start 08/01/16 at 16:00 Norepinephrine 16 mg/Dextrose 500 ml @ 0 mls/hr TITRATE IV Last administered on 08/06/16 00:10; Admin Dose 30 MLS/HR; Start 08/01/16 at 16:00 Vasopressin 60 unit/Dextrose 60 ml @ 1.2 mls/hr Q12H IV Last administered on 03:55; Admin Dose 2.4 MLS/HR; Start 08/01/16 at 17:30 Epinephrine/ Sodium Chloride (EPINEPHrine/NS) 250 ml @ 3.75 mls/hr TITRATE IV Last administered on 08/01/16 18:50; Admin Dose 3.75 MLS/HR; Start 08/01/16 at 19:30 Eye Lubricant (Artificial Tears Oph) 2 drop QID BOTH EYES Last administered on 08/09/16 20:59; Admin Dose 2 DROP; Start 08/02/16 at 09:00 Insulin Aspart (Novolog Insulin Pen) NOVOLOG *MODERATE* ALGORI... Q4 SC Last administered on 08/06/16 05:48; Admin Dose 2 UNIT; Start 08/02/16 at 09:00 Miscellaneous Information 1 ea NOTE XX ; Start 08/02/16 at 09:00 Glucose (Glutose) 15 gm Q15M PRN PO DECREASED GLUCOSE; Start 08/02/16 at 09:00 Glucose (Glutose) 22.5 gm Q15M PRN PO DECREASED GLUCOSE; Start 08/02/16 at 09:00 Dextrose (D50w Syringe) 25 ml Q15M PRN IV DECREASED GLUCOSE Last administered on 08/08/16 08:46; Admin Dose 25 ML; Start 08/02/16 at 09:00 Dextrose (D50w Syringe) 50 ml Q15M PRN IV DECREASED GLUCOSE; Start 08/02/16 at 09:00 Glucagon (Glucagen) 1 mg Q15M PRN IM DECREASED GLUCOSE; Start 08/02/16 at 09:00 Glucose 15 gm 15 gm Q15M PRN BUCCAL DECREASED GLUCOSE; Start 08/02/16 at 09:00 Midazolam HCl 50 ml @ 1 mls/hr TITRATE IV Last administered on 08/10/16 06:48; Admin Dose 7 MLS/HR; Start 08/02/16 at 09:30 Fentanyl (Sublimaze) 100 ml @ 2.5 mls/hr TITRATE IV Last administered on 23:21; Admin Dose 10 MLS/HR; Start 08/02/16 at 09:30 Calcium Carbonate 1250 mg 1,250 mg Q6 NGT Last administered on 08/10/16 05:26; Admin Dose 1,250 MG; Start 08/03/16 at 12:00 Metronidazole 100 ml @ 100 mls/hr Q8 IVPB Last administered on 08/10/16 06:00 ; Admin Dose 100 MLS/HR; Start 08/03/16 at 10:00 Piperacillin Sod/ Tazobactam Sod 100 ml @ 200 mls/hr Q8 IVPB Last administered on 08/10/16 05:26; Admin Dose 200 MLS/HR; Start 08/03/16 at 14:00 Vancomycin HCl/ Sodium Chloride (Vancocin/NS) 250 ml @ 83.333 mls/ hr Q96H IVPB Last administered on 08/06/16 16:00; Admin Dose 83.333 MLS/HR; Start at 16:00 Levothyroxine Sodium (Synthroid) 125 mcg DAILY@06 NGT Last administered on 05:26; Admin Dose 125 MCG; Start 08/08/16 at 06:00 Epoetin Goran (Epogen (Non Esrd/Non Oncology)) 10,000 units MoWeFr@17 SC Last administered on 08/08/16 16:03; Admin Dose 10,000 UNITS; Start 08/08/16 at 17:00 Terbinafine HCl (Lamisil) 250 mg BID NGT Last administered on 08/09/16 20:59; Admin Dose 250 MG; Start 08/08/16 at 21:00; Stop 08/15/16 at 20:59 Methylprednisolone Sodium Succinate (Solu-Medrol) 20 mg DAILY IV Last administered on 08/09/16 10:44; Admin Dose 20 MG; Start 08/09/16 at 09:00 Insulin Human NPH (Humulin N) 6 unit DAILY SC Last administered on 08/09/16 10: 49; Admin Dose 6 UNIT; Start 08/09/16 at 09:00 Heparin Sodium (Porcine) (Heparin (1000 Units/ml)) 4,000 unit ONCE CATHETER ; Start 08/09/16 at 09:30; Stop 08/10/16 at 09:29 ERIN MARTÍNEZ MD Aug 10, 2016 08:33
[2016-08-10] MEDS: ARTIFICIAL TEARS 15 ML OPH BOTH EYES SCH ×4 (08:50→21:12)
[2016-08-10] MEDS: METHYLPREDNISOLONE 40 MG INJ IV SCH (08:50)
[2016-08-10] MEDS: TERBINAFINE 250 MG TAB NGT SCH ×2 (08:50→21:11)
[2016-08-10] MEDS: NPH, HUMAN INSULIN ISOPHANE 3ML VIAL SC SCH (08:54)
[2016-08-10] MEDS: PROPOFOL 100 ML IV SCH ×2 (09:30→21:30)
[2016-08-10 10:15] LABS: PLATELET ESTIMATE PLT APPEAR DECREASED
[2016-08-10] MEDS: FENTAnyl (DRIP) 1000 mcg/100mL 100 ML IV SCH (10:25)
--- NOTE | 2016-08-10 10:28 | CONS ---
Date/Time of Note Date/Time of Note DATE: 08/10/16 TIME: 10:24 Consult Date/Type/Reason Admit Date/Time August 01, 2016 at 00:50 Initial Consult Date 08/01/16 Type of Consultation: Pulmonary ICU Ordering Provider: NIKOLE WKON MD, [facility] Subjective Awake alert on mechanical ventilation follow simple commands. FiO2 at 50%. PEEP of 6. Objective Vital Signs Date Time Temp Pulse Resp B/P Pulse Ox O2 Delivery O2 Flow Rate FiO2 08/10/16 08:40 82 08/10/16 07:00 30 158/84 Mechanical Ventilator 08/10/16 06:00 96 08/10/16 05:08 50 08/10/16 04:00 98.4 Intake and Output 08/09/16 08/09/16 08/10/16 15:00 23:00 07:00 Intake Total 860 ml 754 ml 509 ml Output Total 2960 ml 225 ml 250 ml Balance -2100 ml 529 ml 259 ml Exam PHYSICAL EXAMINATION: GENERAL: Well-nourished well-developed gentleman on mechanical ventilation VITAL SIGNS: HEENT: Dry mucous membranes. Pupils minimally responsive CARDIAC: S1, S2, no added sounds or murmurs. CHEST: Diminished air entry bilaterally with rales. ABDOMEN: Soft, nontender. No guarding or rebound. EXTREMITIES: No cyanosis, clubbing or edema. NEUROLOGIC: Generalized weakness. Unable to assess. Results/Medications Result Diagram: 08/10/16 0550 08/10/16 0550 Results 24 hrs Chest x-ray Diffuse bilateral alveolar infiltrates Laboratory Tests Test 08/09/16 12:51 08/09/16 18:31 08/09/16 21:03 08/10/16 01:02 Bedside Glucose 123 127 103 94 Test 08/10/16 05:24 08/10/16 05:50 08/10/16 08:48 Bedside Glucose 100 107 White Blood Count 24.6 H Red Blood Count 3.02 L Hemoglobin 9.9 L Hematocrit 27.7 L Mean Corpuscular Volume 91.7 Mean Corpuscular Hemoglobin 32.8 Mean Corpuscular Hemoglobin Concent 35.7 Red Cell Distribution Width 15.9 H Platelet Count 73 L Mean Platelet Volume Neutrophils % 74.8 Lymphocytes % 7.0 L Monocytes % 6.6 Eosinophils % 0.1 Basophils % 0.2 Nucleated Red Blood Cells % 8.3 H Neutrophils # 18.4 H Lymphocytes # 1.7 Monocytes # 1.6 H Eosinophils # 0.0 Basophils # 0.0 Nucleated Red Blood Cells # 2.0 H Platelet Estimate PLT APPEAR DECREASED Sodium Level 142 Potassium Level 3.7 Chloride Level 106 Carbon Dioxide Level 29 Anion Gap 11 Blood Urea Nitrogen 62 H Creatinine 2.48 H Glucose Level 94 Calcium Level 9.7 Phosphorus Level 3.4 Magnesium Level 2.1 Medications Current Medications Lorazepam (Ativan) 0.5 mg Q6H PRN IV ANXIETY Last administered on 08/07/16 23: 23; Admin Dose 0.5 MG; Start 08/01/16 at 03:00 Ondansetron HCl (Zofran Inj) 4 mg Q6H PRN IV NAUSEA AND/OR VOMITING; Start at 03:00 Metoclopramide HCl (Reglan) 10 mg Q6H PRN IV NAUSEA AND/OR VOMITING; Start at 03:00 Acetaminophen (Tylenol Tab) 650 mg Q6H PRN PO PAIN LEVEL 1-3 OR FEVER; Start at 03:00 Acetaminophen (Tylenol Supp) 650 mg Q4H PRN [place] PAIN LEVEL 1-3 OR FEVER; Start 08/01/16 at 06:30 Pantoprazole 40 mg 40 mg BID@06,18 IV Last administered on 08/10/16 05:26; Admin Dose 40 MG; Start 08/01/16 at 06:00 Propofol 100 ml @ 3.33 mls/hr Q12H IV Last administered on 08/02/16 09:30; Admin Dose 26.64 MLS/HR; Start 08/01/16 at 09:30 Phenylephrine HCl 40 mg/Dextrose 500 ml @ 0 mls/hr TITRATE IV Last administered on 08/02/16 04:58; Admin Dose 112.5 MLS/HR; Start 08/01/16 at 16:00 Norepinephrine 16 mg/Dextrose 500 ml @ 0 mls/hr TITRATE IV Last administered on 08/06/16 00:10; Admin Dose 30 MLS/HR; Start 08/01/16 at 16:00 Vasopressin 60 unit/Dextrose 60 ml @ 1.2 mls/hr Q12H IV Last administered on 03:55; Admin Dose 2.4 MLS/HR; Start 08/01/16 at 17:30 Epinephrine/ Sodium Chloride (EPINEPHrine/NS) 250 ml @ 3.75 mls/hr TITRATE IV Last administered on 08/01/16 18:50; Admin Dose 3.75 MLS/HR; Start 08/01/16 at 19:30 Eye Lubricant (Artificial Tears Oph) 2 drop QID BOTH EYES Last administered on 08/10/16 08:50; Admin Dose 2 DROP; Start 08/02/16 at 09:00 Insulin Aspart (Novolog Insulin Pen) NOVOLOG *MODERATE* ALGORI... Q4 SC Last administered on 08/06/16 05:48; Admin Dose 2 UNIT; Start 08/02/16 at 09:00 Miscellaneous Information 1 ea NOTE XX ; Start 08/02/16 at 09:00 Glucose (Glutose) 15 gm Q15M PRN PO DECREASED GLUCOSE; Start 08/02/16 at 09:00 Glucose (Glutose) 22.5 gm Q15M PRN PO DECREASED GLUCOSE; Start 08/02/16 at 09:00 Dextrose (D50w Syringe) 25 ml Q15M PRN IV DECREASED GLUCOSE Last administered on 08/08/16 08:46; Admin Dose 25 ML; Start 08/02/16 at 09:00 Dextrose (D50w Syringe) 50 ml Q15M PRN IV DECREASED GLUCOSE; Start 08/02/16 at 09:00 Glucagon (Glucagen) 1 mg Q15M PRN IM DECREASED GLUCOSE; Start 08/02/16 at 09:00 Glucose 15 gm 15 gm Q15M PRN BUCCAL DECREASED GLUCOSE; Start 08/02/16 at 09:00 Midazolam HCl 50 ml @ 1 mls/hr TITRATE IV Last administered on 08/10/16 06:48; Admin Dose 7 MLS/HR; Start 08/02/16 at 09:30 Fentanyl (Sublimaze) 100 ml @ 2.5 mls/hr TITRATE IV Last administered on 23:21; Admin Dose 10 MLS/HR; Start 08/02/16 at 09:30 Calcium Carbonate 1250 mg 1,250 mg Q6 NGT Last administered on 08/10/16 05:26; Admin Dose 1,250 MG; Start 08/03/16 at 12:00 Metronidazole 100 ml @ 100 mls/hr Q8 IVPB Last administered on 08/10/16 06:00 ; Admin Dose 100 MLS/HR; Start 08/03/16 at 10:00 Piperacillin Sod/ Tazobactam Sod 100 ml @ 200 mls/hr Q8 IVPB Last administered on 08/10/16 05:26; Admin Dose 200 MLS/HR; Start 08/03/16 at 14:00 Vancomycin HCl/ Sodium Chloride (Vancocin/NS) 250 ml @ 83.333 mls/ hr Q96H IVPB Last administered on 08/06/16 16:00; Admin Dose 83.333 MLS/HR; Start at 16:00 Levothyroxine Sodium (Synthroid) 125 mcg DAILY@06 NGT Last administered on 05:26; Admin Dose 125 MCG; Start 08/08/16 at 06:00 Epoetin Goran (Epogen (Non Esrd/Non Oncology)) 10,000 units MoWeFr@17 SC Last administered on 08/08/16 16:03; Admin Dose 10,000 UNITS; Start 08/08/16 at 17:00 Terbinafine HCl (Lamisil) 250 mg BID NGT Last administered on 08/10/16 08:50; Admin Dose 250 MG; Start 08/08/16 at 21:00; Stop 08/15/16 at 20:59 Methylprednisolone Sodium Succinate (Solu-Medrol) 20 mg DAILY IV Last administered on 08/10/16 08:50; Admin Dose 20 MG; Start 08/09/16 at 09:00 Insulin Human NPH (Humulin N) 6 unit DAILY SC Last administered on 08/10/16 08: 54; Admin Dose 6 UNIT; Start 08/09/16 at 09:00 Assessment/Plan Chief Complaint/Hosp Course IMPRESSION 1. Acute renal failure with severe metabolic acidosis, clinically improved hemodialysis 2. Respiratory failure secondary to significant metabolic acidosis and subsequent cardiac arrest. ARDS radiographically. Improved oxygenation 3. Severe hypothyroidism 4. History of ETOH. 5. Status post septic shock requiring vasopressors. Persistent leukocytosis despite decreasing steroids. Possible line sepsis. Consider removal of Deni catheter in the groin. Will discuss with nephrology 6. Acute anemia possibly underlying GI bleed status post packed red cell transfusion 7. Insulin-dependent diabetes 8. Dysphagia secondary to above PLAN: 1 renal recommendations continue hemodialysis 2. Continue endocrinology recommendations regarding hypothyroidism 3. Status post septic shock vasopressors as needed 4. CPAP weaning trial now hypoxemia improving 5. DVT GI prophylaxis 6. Possible removal of Deni catheter as a source of of infection 7. Speech therapy evaluation once extubated 9. PT eval once extubated Disposition Continue ICU care Problems: NIKOLE KWON MD, [facility] Aug 10, 2016 10:27
[2016-08-10 12:39] LABS: AADO2 Arterial 170.1 mmHg (7.0-24.0); Allen Test ACCEPTAB; Arterial Base Excess -1.1 mmol/L (-3.0-3); Arterial COHb 0.3 % (0.0-3.0); Arterial Fraction of Oxyhgb 85.3 % (93.0-99.0); Arterial HCO3 24.8 mmol/L (22.0-26.0); Arterial MetHb 0.5 % (0.0-1.5); Arterial Total Hemglobin 11.2 g/dl (12.0-18.0); Blood Gas PS 10; MODE VENT - CPAP
--- NOTE | 2016-08-10 14:05 | CONS ---
Date/Time of Note Date/Time of Note DATE: 08/10/16 TIME: 14:03 Assessment/Plan Assessment/Plan Chief Complaint/Hosp Course SUBJECTIVE: No events. The patient is intubated and sedated, looks comfortable , no fevers. INDWELLINGS: Endotracheal tube, left femoral triple lumen catheter, right femoral Deni catheter. ANTIMICROBIALS: 1. Vancomycin. 2. Zosyn. 3. Flagyl. MICROBIOLOGY: Blood cultures have been negative. Urine culture negative. Stool for C. diff also came back negative. PHYSICAL EXAMINATION: GENERAL: Chronically ill-appearing, middle-aged man who is intubated and sedated, in no distress. HEENT: Head atraumatic, normocephalic. Sclerae anicteric. Buccal mucosa dry. NECK: Supple, trachea midline. CHEST: Rise symmetrical. Breath sounds diminished to bases. HEART: S1, S2. ABDOMEN: Distended, soft. Bowel tones hypoactive. EXTREMITIES: Bilateral edema. ASSESSMENT: 1. Sepsis with persistent leukocytosis, status post shock. So far cultures have been negative. 2. Acute respiratory failure. 3. Acute kidney injury, started on hemodialysis. 4. Status post cardiopulmonary arrest. 5. Encephalopathy. 6. History of ETOH abuse. 7. Diarrhea. PLAN: The patient remains stable, continue abx, follow recommendations of consultants. DW staff Problems: Consultation Date/Type/Reason Admit Date/Time August 01, 2016 at 00:50 Initial Consult Date 08/01/16 Type of Consultation: ID Referring Provider: NIKOLE KWON MD, [facility] Exam/Review of Systems Vital Signs Vitals Vital Signs Date Time Temp Pulse Resp B/P Pulse Ox O2 Delivery O2 Flow Rate FiO2 08/10/16 13:00 85 30 92/69 92 Mechanical Ventilator 08/10/16 12:00 98.6 08/10/16 11:20 40 Intake and Output 08/09/16 08/09/16 08/10/16 15:00 23:00 07:00 Intake Total 860 ml 754 ml 509 ml Output Total 2960 ml 225 ml 250 ml Balance -2100 ml 529 ml 259 ml Results Result Diagram: 08/10/16 0550 08/10/16 0550 Results 24 hrs Laboratory Tests Test 08/09/16 18:31 08/09/16 21:03 08/10/16 01:02 08/10/16 05:24 Bedside Glucose 127 103 94 100 Test 08/10/16 05:50 08/10/16 08:48 08/10/16 12:23 08/10/16 13:20 White Blood Count 24.6 H Red Blood Count 3.02 L Hemoglobin 9.9 L Hematocrit 27.7 L Mean Corpuscular Volume 91.7 Mean Corpuscular Hemoglobin 32.8 Mean Corpuscular Hemoglobin Concent 35.7 Red Cell Distribution Width 15.9 H Platelet Count 73 L Mean Platelet Volume Neutrophils % 74.8 Lymphocytes % 7.0 L Monocytes % 6.6 Eosinophils % 0.1 Basophils % 0.2 Nucleated Red Blood Cells % 8.3 H Neutrophils # 18.4 H Lymphocytes # 1.7 Monocytes # 1.6 H Eosinophils # 0.0 Basophils # 0.0 Nucleated Red Blood Cells # 2.0 H Platelet Estimate PLT APPEAR DECREASED Sodium Level 142 Potassium Level 3.7 Chloride Level 106 Carbon Dioxide Level 29 Anion Gap 11 Blood Urea Nitrogen 62 H Creatinine 2.48 H Glucose Level 94 Calcium Level 9.7 Phosphorus Level 3.4 Magnesium Level 2.1 Hepatitis B Surface Antigen NEGATIVE Hepatitis C Antibody Pending Bedside Glucose 107 Blood Gas Specimen Source Blood arterial Arterial Blood Date Drawn 08/10/2016 12:25:00 PM Arterial Blood pH (Temp corrected) 7.347 L Arterial Blood pCO2 (Temp correct) 46.2 H Arterial Blood pO2 (Temp corrected) 62.0 L Arterial Blood HCO3 24.8 Arterial Blood Base Excess -1.1 Arterial Blood Oxygen Saturation 86.0 L Stanley Test ACCEPTAB Arterial Blood Gas Puncture Site Right Radial Arterial Blood Carboxyhemoglobin 0.3 Arterial Blood Methemoglobin 0.5 Blood Gas A-a O2 Differential 170.1 H Oxyhemoglobin Percent 85.3 L Total Hemoglobin 11.2 L Blood Gas Temperature 37.0 Blood Gas Actual Respiration Rate 38 Blood Gas Modality VENT - CPAP FiO2 40.0 Blood Gas Tidal Volume 350.0 Blood Gas Low PEEP Setting 5.0 Blood Gas Pressure Support 10 Blood Gas Critical Value Read Back Magalis WYNN RN Blood Gas Notified Whom RDIX Blood Gas Notified Time 08/10/2016 12:39:22 PM Lab Scanned Report REFERENCE LAB Test 08/10/16 13:32 Bedside Glucose 93 Medications Medications Current Medications Lorazepam (Ativan) 0.5 mg Q6H PRN IV ANXIETY Last administered on 08/07/16 23: 23; Admin Dose 0.5 MG; Start 08/01/16 at 03:00 Ondansetron HCl (Zofran Inj) 4 mg Q6H PRN IV NAUSEA AND/OR VOMITING; Start at 03:00 Metoclopramide HCl (Reglan) 10 mg Q6H PRN IV NAUSEA AND/OR VOMITING; Start at 03:00 Acetaminophen (Tylenol Tab) 650 mg Q6H PRN PO PAIN LEVEL 1-3 OR FEVER; Start at 03:00 Acetaminophen (Tylenol Supp) 650 mg Q4H PRN [place] PAIN LEVEL 1-3 OR FEVER; Start 08/01/16 at 06:30 Pantoprazole 40 mg 40 mg BID@06,18 IV Last administered on 08/10/16 05:26; Admin Dose 40 MG; Start 08/01/16 at 06:00 Propofol 100 ml @ 3.33 mls/hr Q12H IV Last administered on 08/02/16 09:30; Admin Dose 26.64 MLS/HR; Start 08/01/16 at 09:30 Phenylephrine HCl 40 mg/Dextrose 500 ml @ 0 mls/hr TITRATE IV Last administered on 08/02/16 04:58; Admin Dose 112.5 MLS/HR; Start 08/01/16 at 16:00 Norepinephrine 16 mg/Dextrose 500 ml @ 0 mls/hr TITRATE IV Last administered on 08/06/16 00:10; Admin Dose 30 MLS/HR; Start 08/01/16 at 16:00 Vasopressin 60 unit/Dextrose 60 ml @ 1.2 mls/hr Q12H IV Last administered on 03:55; Admin Dose 2.4 MLS/HR; Start 08/01/16 at 17:30 Epinephrine/ Sodium Chloride (EPINEPHrine/NS) 250 ml @ 3.75 mls/hr TITRATE IV Last administered on 08/01/16 18:50; Admin Dose 3.75 MLS/HR; Start 08/01/16 at 19:30 Eye Lubricant (Artificial Tears Oph) 2 drop QID BOTH EYES Last administered on 08/10/16 13:33; Admin Dose 2 DROP; Start 08/02/16 at 09:00 Insulin Aspart (Novolog Insulin Pen) NOVOLOG *MODERATE* ALGORI... Q4 SC Last administered on 08/06/16 05:48; Admin Dose 2 UNIT; Start 08/02/16 at 09:00 Miscellaneous Information 1 ea NOTE XX ; Start 08/02/16 at 09:00 Glucose (Glutose) 15 gm Q15M PRN PO DECREASED GLUCOSE; Start 08/02/16 at 09:00 Glucose (Glutose) 22.5 gm Q15M PRN PO DECREASED GLUCOSE; Start 08/02/16 at 09:00 Dextrose (D50w Syringe) 25 ml Q15M PRN IV DECREASED GLUCOSE Last administered on 08/08/16 08:46; Admin Dose 25 ML; Start 08/02/16 at 09:00 Dextrose (D50w Syringe) 50 ml Q15M PRN IV DECREASED GLUCOSE; Start 08/02/16 at 09:00 Glucagon (Glucagen) 1 mg Q15M PRN IM DECREASED GLUCOSE; Start 08/02/16 at 09:00 Glucose 15 gm 15 gm Q15M PRN BUCCAL DECREASED GLUCOSE; Start 08/02/16 at 09:00 Midazolam HCl 50 ml @ 1 mls/hr TITRATE IV Last administered on 08/10/16 06:48; Admin Dose 7 MLS/HR; Start 08/02/16 at 09:30 Fentanyl (Sublimaze) 100 ml @ 2.5 mls/hr TITRATE IV Last administered on 10:25; Admin Dose 10 MLS/HR; Start 08/02/16 at 09:30 Calcium Carbonate 1250 mg 1,250 mg Q6 NGT Last administered on 08/10/16 12:32; Admin Dose 1,250 MG; Start 08/03/16 at 12:00 Metronidazole 100 ml @ 100 mls/hr Q8 IVPB Last administered on 08/10/16 13:33 ; Admin Dose 100 MLS/HR; Start 08/03/16 at 10:00 Piperacillin Sod/ Tazobactam Sod 100 ml @ 200 mls/hr Q8 IVPB Last administered on 08/10/16 13:33; Admin Dose 200 MLS/HR; Start 08/03/16 at 14:00 Vancomycin HCl/ Sodium Chloride (Vancocin/NS) 250 ml @ 83.333 mls/ hr Q96H IVPB Last administered on 08/06/16 16:00; Admin Dose 83.333 MLS/HR; Start at 16:00 Levothyroxine Sodium (Synthroid) 125 mcg DAILY@06 NGT Last administered on 05:26; Admin Dose 125 MCG; Start 08/08/16 at 06:00 Epoetin Goran (Epogen (Non Esrd/Non Oncology)) 10,000 units MoWeFr@17 SC Last administered on 08/08/16 16:03; Admin Dose 10,000 UNITS; Start 08/08/16 at 17:00 Terbinafine HCl (Lamisil) 250 mg BID NGT Last administered on 08/10/16 08:50; Admin Dose 250 MG; Start 08/08/16 at 21:00; Stop 08/15/16 at 20:59 Methylprednisolone Sodium Succinate (Solu-Medrol) 20 mg DAILY IV Last administered on 08/10/16 08:50; Admin Dose 20 MG; Start 08/09/16 at 09:00 Insulin Human NPH (Humulin N) 6 unit DAILY SC Last administered on 08/10/16 08: 54; Admin Dose 6 UNIT; Start 08/09/16 at 09:00 RADHA ESCALANTE NP Aug 10, 2016 14:05
--- NOTE | 2016-08-10 15:08 | PN ---
Date/Time of Note Date/Time of Note DATE: 08/10/16 TIME: 15:05 Assessment/Plan VTE Prophylaxis VTE Prophylaxis Intervention: SCD's Lines/Catheters IV Catheter Type (from [facility], [place]): Deni Cath Assessment/Plan Chief Complaint/Hosp Course 1. Status post cardiac arrest with ROSC 2/2 severe metabolic acidosis from #4 2. Acute encephalopathy secondary to #1 [toxic metabolic] 3. Ventilator dependent respiratory failure with probable ARDS and pulmonary edema per pulmonary 4. Severe acute renal failure now on hemodialysis with unknown baseline thought to be secondary to severe ATN 5. Severe Sepsis with septic shock and lactic acidosis on pressors 6. Newly diagnosed Hypothyroidism 7. Chronic Alcohol use and abuse 8. Anemia likely secondary to chronic disease but a component of malnutrition from chronic alcohol abuse 9. Enterocolitis 10. Thrombocytopenia which could be as a result of liver disease, will have to rule out heparin-induced thrombocytopenia 11. Severe fatty liver with Transaminitis and mild hyperbilirubinemia indicating a measure of chronic liver disease vs shock liver 12. Bilateral pneumonia likely aspiration 13. Coagulase neg Staph UTI 14. Hypophosphatemia 15. Steroid-induced hyperglycemia vs type 2 DM requiring low-dose Lantus and NPH 16. Positive stool occult blood on twice daily PPI PLAN: Continue broad-spectrum antibiotics with IV vancomycin and Zosyn, cultures are insignificant at this time Continue to wean pressors Continue hemodialysis per nephrology Continue vent management and weaning, patient may need trach if unable to wean off vent, CPAP trials today Endocrinology managing sugars and thyroid profile Continue serial electrolyte monitoring and replenishment Continue supportive ICU care, palliative care is following Prophylaxis : SCDS / PPI Problems: Subjective 24 Hr Interval Summary Subjective hx not possible: pt non-verbal Exam/Review of Systems Vital Signs Vitals Vital Signs Date Time Temp Pulse Resp B/P Pulse Ox O2 Delivery O2 Flow Rate FiO2 08/10/16 13:00 85 30 92/69 92 Mechanical Ventilator 08/10/16 12:00 98.6 08/10/16 11:20 40 Intake and Output 08/09/16 08/09/16 08/10/16 15:00 23:00 07:00 Intake Total 860 ml 754 ml 509 ml Output Total 2960 ml 225 ml 250 ml Balance -2100 ml 529 ml 259 ml Exam Constitutional: non-verbal ENMT: intubated Respiratory: clear to auscultation Cardiovascular: regular rate and rhythm Gastrointestinal: soft, No distended Musculoskeletal: nl extremities to inspection Results Result Diagram: 08/10/16 0550 08/10/16 0550 Results 24 hrs Laboratory Tests Test 08/09/16 18:31 08/09/16 21:03 08/10/16 01:02 08/10/16 05:24 Bedside Glucose 127 103 94 100 Test 08/10/16 05:50 08/10/16 08:48 08/10/16 12:23 08/10/16 13:20 White Blood Count 24.6 H Red Blood Count 3.02 L Hemoglobin 9.9 L Hematocrit 27.7 L Mean Corpuscular Volume 91.7 Mean Corpuscular Hemoglobin 32.8 Mean Corpuscular Hemoglobin Concent 35.7 Red Cell Distribution Width 15.9 H Platelet Count 73 L Mean Platelet Volume Neutrophils % 74.8 Lymphocytes % 7.0 L Monocytes % 6.6 Eosinophils % 0.1 Basophils % 0.2 Nucleated Red Blood Cells % 8.3 H Neutrophils # 18.4 H Lymphocytes # 1.7 Monocytes # 1.6 H Eosinophils # 0.0 Basophils # 0.0 Nucleated Red Blood Cells # 2.0 H Platelet Estimate PLT APPEAR DECREASED Sodium Level 142 Potassium Level 3.7 Chloride Level 106 Carbon Dioxide Level 29 Anion Gap 11 Blood Urea Nitrogen 62 H Creatinine 2.48 H Glucose Level 94 Calcium Level 9.7 Phosphorus Level 3.4 Magnesium Level 2.1 Hepatitis B Surface Antigen NEGATIVE Hepatitis C Antibody Pending Bedside Glucose 107 Blood Gas Specimen Source Blood arterial Arterial Blood Date Drawn 08/10/2016 12:25:00 PM Arterial Blood pH (Temp corrected) 7.347 L Arterial Blood pCO2 (Temp correct) 46.2 H Arterial Blood pO2 (Temp corrected) 62.0 L Arterial Blood HCO3 24.8 Arterial Blood Base Excess -1.1 Arterial Blood Oxygen Saturation 86.0 L Stanley Test ACCEPTAB Arterial Blood Gas Puncture Site Right Radial Arterial Blood Carboxyhemoglobin 0.3 Arterial Blood Methemoglobin 0.5 Blood Gas A-a O2 Differential 170.1 H Oxyhemoglobin Percent 85.3 L Total Hemoglobin 11.2 L Blood Gas Temperature 37.0 Blood Gas Actual Respiration Rate 38 Blood Gas Modality VENT - CPAP FiO2 40.0 Blood Gas Tidal Volume 350.0 Blood Gas Low PEEP Setting 5.0 Blood Gas Pressure Support 10 Blood Gas Critical Value Read Back Magalis WYNN RN Blood Gas Notified Whom RDIX Blood Gas Notified Time 08/10/2016 12:39:22 PM Lab Scanned Report REFERENCE LAB Test 08/10/16 13:32 Bedside Glucose 93 Medications Medications Current Medications Lorazepam (Ativan) 0.5 mg Q6H PRN IV ANXIETY Last administered on 08/07/16 23: 23; Admin Dose 0.5 MG; Start 08/01/16 at 03:00 Ondansetron HCl (Zofran Inj) 4 mg Q6H PRN IV NAUSEA AND/OR VOMITING; Start at 03:00 Metoclopramide HCl (Reglan) 10 mg Q6H PRN IV NAUSEA AND/OR VOMITING; Start at 03:00 Acetaminophen (Tylenol Tab) 650 mg Q6H PRN PO PAIN LEVEL 1-3 OR FEVER; Start at 03:00 Acetaminophen (Tylenol Supp) 650 mg Q4H PRN ND PAIN LEVEL 1-3 OR FEVER; Start 08/01/16 at 06:30 Pantoprazole 40 mg 40 mg BID@06,18 IV Last administered on 08/10/16 05:26; Admin Dose 40 MG; Start 08/01/16 at 06:00 Propofol 100 ml @ 3.33 mls/hr Q12H IV Last administered on 08/02/16 09:30; Admin Dose 26.64 MLS/HR; Start 08/01/16 at 09:30 Phenylephrine HCl 40 mg/Dextrose 500 ml @ 0 mls/hr TITRATE IV Last administered on 08/02/16 04:58; Admin Dose 112.5 MLS/HR; Start 08/01/16 at 16:00 Norepinephrine 16 mg/Dextrose 500 ml @ 0 mls/hr TITRATE IV Last administered on 08/06/16 00:10; Admin Dose 30 MLS/HR; Start 08/01/16 at 16:00 Vasopressin 60 unit/Dextrose 60 ml @ 1.2 mls/hr Q12H IV Last administered on 03:55; Admin Dose 2.4 MLS/HR; Start 08/01/16 at 17:30 Epinephrine/ Sodium Chloride (EPINEPHrine/NS) 250 ml @ 3.75 mls/hr TITRATE IV Last administered on 08/01/16 18:50; Admin Dose 3.75 MLS/HR; Start 08/01/16 at 19:30 Eye Lubricant (Artificial Tears Oph) 2 drop QID BOTH EYES Last administered on 08/10/16 13:33; Admin Dose 2 DROP; Start 08/02/16 at 09:00 Insulin Aspart (Novolog Insulin Pen) NOVOLOG *MODERATE* ALGORI... Q4 SC Last administered on 08/06/16 05:48; Admin Dose 2 UNIT; Start 08/02/16 at 09:00 Miscellaneous Information 1 ea NOTE XX ; Start 08/02/16 at 09:00 Glucose (Glutose) 15 gm Q15M PRN PO DECREASED GLUCOSE; Start 08/02/16 at 09:00 Glucose (Glutose) 22.5 gm Q15M PRN PO DECREASED GLUCOSE; Start 08/02/16 at 09:00 Dextrose (D50w Syringe) 25 ml Q15M PRN IV DECREASED GLUCOSE Last administered on 08/08/16 08:46; Admin Dose 25 ML; Start 08/02/16 at 09:00 Dextrose (D50w Syringe) 50 ml Q15M PRN IV DECREASED GLUCOSE; Start 08/02/16 at 09:00 Glucagon (Glucagen) 1 mg Q15M PRN IM DECREASED GLUCOSE; Start 08/02/16 at 09:00 Glucose 15 gm 15 gm Q15M PRN BUCCAL DECREASED GLUCOSE; Start 08/02/16 at 09:00 Midazolam HCl 50 ml @ 1 mls/hr TITRATE IV Last administered on 08/10/16 14:23; Admin Dose 7 MLS/HR; Start 08/02/16 at 09:30 Fentanyl (Sublimaze) 100 ml @ 2.5 mls/hr TITRATE IV Last administered on 10:25; Admin Dose 10 MLS/HR; Start 08/02/16 at 09:30 Calcium Carbonate 1250 mg 1,250 mg Q6 NGT Last administered on 08/10/16 12:32; Admin Dose 1,250 MG; Start 08/03/16 at 12:00 Metronidazole 100 ml @ 100 mls/hr Q8 IVPB Last administered on 08/10/16 13:33 ; Admin Dose 100 MLS/HR; Start 08/03/16 at 10:00 Piperacillin Sod/ Tazobactam Sod 100 ml @ 200 mls/hr Q8 IVPB Last administered on 08/10/16 13:33; Admin Dose 200 MLS/HR; Start 08/03/16 at 14:00 Vancomycin HCl/ Sodium Chloride (Vancocin/NS) 250 ml @ 83.333 mls/ hr Q96H IVPB Last administered on 08/06/16 16:00; Admin Dose 83.333 MLS/HR; Start at 16:00 Levothyroxine Sodium (Synthroid) 125 mcg DAILY@06 NGT Last administered on 05:26; Admin Dose 125 MCG; Start 08/08/16 at 06:00 Epoetin Goran (Epogen (Non Esrd/Non Oncology)) 10,000 units MoWeFr@17 SC Last administered on 08/08/16 16:03; Admin Dose 10,000 UNITS; Start 08/08/16 at 17:00 Terbinafine HCl (Lamisil) 250 mg BID NGT Last administered on 08/10/16 08:50; Admin Dose 250 MG; Start 08/08/16 at 21:00; Stop 08/15/16 at 20:59 Methylprednisolone Sodium Succinate (Solu-Medrol) 20 mg DAILY IV Last administered on 08/10/16 08:50; Admin Dose 20 MG; Start 08/09/16 at 09:00 Insulin Human NPH (Humulin N) 6 unit DAILY SC Last administered on 08/10/16 08: 54; Admin Dose 6 UNIT; Start 08/09/16 at 09:00 SANYA SMILEY Aug 10, 2016 15:08
[2016-08-10] MEDS: VANCOMYCIN 1.25 GM in SOD CHLORIDE 0.9% 250 ML IVPB SCH (16:19)
[2016-08-10] MEDS: EPOETIN 10000 UNITS/ML (NON ESRD/NON ONCOLOGY) SC SCH (17:34)
[2016-08-11] VITALS (58 sets, daily range): BP systolic 105–177; BP diastolic 66–111; PULSE 73–97; RESP 13–30
[2016-08-11] MEDS: INSULIN ASPART [NOVOLOG] 3 ML PEN SC SCH ×6 (01:00→20:15)
[2016-08-11] MEDS: VASOPRESSIN 60 UNIT in DEXTROSE 5% 57 ML IV SCH ×2 (05:30→17:30)
[2016-08-11] MEDS: LEVOTHYROXINE 125 MCG TAB NGT SCH (05:58)
[2016-08-11] MEDS: CA CARBONATE (250 MG/ML) 5ML CUP NGT SCH ×3 (05:58→20:14)
[2016-08-11] MEDS: PIPER-TAZO 3.375 GM IV (PMX) 100 ML IVPB SCH ×3 (05:58→21:34)
[2016-08-11] MEDS: PANTOPRAZOLE 40 MG INJ IV SCH ×2 (05:58→17:47)
[2016-08-11] MEDS: FENTAnyl (DRIP) 1000 mcg/100mL 100 ML IV SCH ×3 (05:59→22:33)
[2016-08-11] MEDS: metroNIDAZOLE 500 MG/NS (PMX) 100 ML IVPB SCH ×3 (05:59→22:07)
[2016-08-11 06:31] LABS: ADD SCAN DIFF NO
[2016-08-11 06:34] LABS: ABNORMAL IP MESSAGE 1; BASOPHIL # 0.1 10^3/ul (0.0-0.1); BASOPHILS % 0.3 % (0.0-2.0); EOSINOPHILS % 0.1 % (0.0-7.0); HEMATOCRIT 29.4 % (42.0-52.0); HEMOGLOBIN 10.2 g/dl (14.0-18.0); LYMPHOCYTES # 1.4 10^3/ul (0.8-2.9); LYMPHOCYTES % 7.6 % (15.0-51.0); MEAN CORPUSCULAR HEMOGLOBIN 31.9 pg (29.0-33.0); MEAN CORPUSCULAR HGB CONC 34.7 g/dl (32.0-37.0); MEAN CORPUSCULAR VOLUME 91.9 fl (82.0-101.0); MONOCYTES % 5.5 % (0.0-11.0); NUCLEATED RED BLOOD CELLS # 0.5 10^3/ul (0.0-0.0); NUCLEATED RED BLOOD CELLS% 2.8 /100WBC (0.0-0.0); PLATELET COUNT 95 10^3/UL (140-415); RED CELL DISTRIBUTION WIDTH 16.4 % (11.5-14.5); WHITE BLOOD COUNT 17.9 10^3/ul (4.8-10.8)
[2016-08-11 06:58] LABS: CALCIUM 10.5 mg/dl (8.4-10.2); CREATININE 2.14 mg/dl (0.61-1.24); POTASSIUM 3.9 mmol/L (3.5-5.1)
[2016-08-11] MEDS: MIDAZOLAM (DRIP) 50 mg/50 mL 50 ML IV SCH ×3 (07:43→20:24)
[2016-08-11] MEDS: TERBINAFINE 250 MG TAB NGT SCH ×2 (08:12→20:14)
[2016-08-11] MEDS: ARTIFICIAL TEARS 15 ML OPH BOTH EYES SCH ×4 (08:12→20:14)
[2016-08-11] MEDS: FUROSEMIDE 40 MG INJ IV SCH ×2 (08:12→17:47)
--- NOTE | 2016-08-11 08:19 | CONS ---
Date/Time of Note Date/Time of Note DATE: 08/11/16 TIME: 08:16 Assessment/Plan Assessment/Plan Chief Complaint/Hosp Course 60-year-old right-handed -[place] gentleman normally cared for at the [facility]. He was admitted to the hospital but it had cardiac arrest in the hospital. Please note that his picture actually looked a bit like adrenal insufficiency except that he has a serum cortisol level of 44 prior to his arrest. He had a TSH of 21 with a low free T4 and a low T3. Patient is intubated and unable to give a history although he is able to look and follows rudimentary commands. At this time many of his metabolic abnormalities have improved. Problems: (1) Diabetes mellitus type 2 in obese Status: Chronic Comment: At this time discontinue the Solu-Medrol and the NPH insulin. There is no medical indication to continue Solu-Medrol and the insulin is unnecessary without the Solu-Medrol on board. (2) Onychomycosis Status: Chronic Comment: He is receiving pulse therapy. He should have his nails trimmed at some point. (3) Hypothyroidism Status: Chronic Comment: He is on treatment. We will be rechecking his levels in a day or 2 at which point we will make further adjustments Qualifiers: Hypothyroidism type: acquired Qualified Code: E03.9 - Acquired hypothyroidism (4) Acute kidney injury Status: Acute Comment: Clearing slowly. Please note that the patient's calcium disturbance has now gone in the opposite direction without the usage of vitamin D or calcitriol. We will decrease the oral calcium intake. Consultation Date/Type/Reason Admit Date/Time August 01, 2016 at 00:50 Initial Consult Date 08/01/16 Type of Consultation: Endocrinology Reason for Consultation Hypothyroidism; steroid-induced hyperglycemia; hypocalcemianow hypercalcemic Referring Provider: NIKOLE KWON MD, [facility] 24 HR Interval Summary Free Text/Dictation Patient remains intubated. Can follow simple commands. Exam/Review of Systems Vital Signs Vitals Vital Signs Date Time Temp Pulse Resp B/P Pulse Ox O2 Delivery O2 Flow Rate FiO2 08/11/16 07:12 81 30 172/99 96 Mechanical Ventilator 08/11/16 05:20 40 08/11/16 04:00 97.8 Intake and Output 08/10/16 08/10/16 08/11/16 15:00 23:00 07:00 Intake Total 776 ml 836.00 ml 499 ml Output Total 480 ml 330 ml 350 ml Balance 296 ml 506.00 ml 149 ml Exam No changes. Results Result Diagram: 08/11/16 0544 08/11/16 0544 Results 24 hrs Laboratory Tests Test 08/10/16 08:48 08/10/16 12:23 08/10/16 13:20 08/10/16 13:32 Bedside Glucose 107 93 Blood Gas Specimen Source Blood arterial Arterial Blood Date Drawn 08/10/2016 12:25:00 PM Arterial Blood pH (Temp corrected) 7.347 L Arterial Blood pCO2 (Temp correct) 46.2 H Arterial Blood pO2 (Temp corrected) 62.0 L Arterial Blood HCO3 24.8 Arterial Blood Base Excess -1.1 Arterial Blood Oxygen Saturation 86.0 L Stanley Test ACCEPTAB Arterial Blood Gas Puncture Site Right Radial Arterial Blood Carboxyhemoglobin 0.3 Arterial Blood Methemoglobin 0.5 Blood Gas A-a O2 Differential 170.1 H Oxyhemoglobin Percent 85.3 L Total Hemoglobin 11.2 L Blood Gas Temperature 37.0 Blood Gas Actual Respiration Rate 38 Blood Gas Modality VENT - CPAP FiO2 40.0 Blood Gas Tidal Volume 350.0 Blood Gas Low PEEP Setting 5.0 Blood Gas Pressure Support 10 Blood Gas Critical Value Read Back Magalis WYNN RN Blood Gas Notified Whom RDIX Blood Gas Notified Time 08/10/2016 12:39:22 PM Lab Scanned Report REFERENCE LAB Test 08/10/16 17:21 08/10/16 20:56 08/11/16 01:13 08/11/16 04:55 Bedside Glucose 74 100 77 79 Test 08/11/16 05:44 White Blood Count 17.9 #H Red Blood Count 3.20 L Hemoglobin 10.2 L Hematocrit 29.4 L Mean Corpuscular Volume 91.9 Mean Corpuscular Hemoglobin 31.9 Mean Corpuscular Hemoglobin Concent 34.7 Red Cell Distribution Width 16.4 H Platelet Count 95 #L Mean Platelet Volume Neutrophils % 78.0 H Lymphocytes % 7.6 L Monocytes % 5.5 Eosinophils % 0.1 Basophils % 0.3 Nucleated Red Blood Cells % 2.8 H Neutrophils # 14.0 H Lymphocytes # 1.4 Monocytes # 1.0 H Eosinophils # 0.0 Basophils # 0.1 Nucleated Red Blood Cells # 0.5 H Sodium Level 143 Potassium Level 3.9 Chloride Level 107 Carbon Dioxide Level 26 Anion Gap 14 Blood Urea Nitrogen 64 H Creatinine 2.14 H Glucose Level 93 Calcium Level 10.5 H Medications Medications Current Medications Lorazepam (Ativan) 0.5 mg Q6H PRN IV ANXIETY Last administered on 08/07/16 23: 23; Admin Dose 0.5 MG; Start 08/01/16 at 03:00 Ondansetron HCl (Zofran Inj) 4 mg Q6H PRN IV NAUSEA AND/OR VOMITING; Start at 03:00 Metoclopramide HCl (Reglan) 10 mg Q6H PRN IV NAUSEA AND/OR VOMITING; Start at 03:00 Acetaminophen (Tylenol Tab) 650 mg Q6H PRN PO PAIN LEVEL 1-3 OR FEVER; Start at 03:00 Acetaminophen (Tylenol Supp) 650 mg Q4H PRN VA PAIN LEVEL 1-3 OR FEVER; Start 08/01/16 at 06:30 Pantoprazole 40 mg 40 mg BID@06,18 IV Last administered on 08/11/16 05:58; Admin Dose 40 MG; Start 08/01/16 at 06:00 Propofol 100 ml @ 3.33 mls/hr Q12H IV Last administered on 08/02/16 09:30; Admin Dose 26.64 MLS/HR; Start 08/01/16 at 09:30 Phenylephrine HCl 40 mg/Dextrose 500 ml @ 0 mls/hr TITRATE IV Last administered on 08/02/16 04:58; Admin Dose 112.5 MLS/HR; Start 08/01/16 at 16:00 Norepinephrine 16 mg/Dextrose 500 ml @ 0 mls/hr TITRATE IV Last administered on 08/06/16 00:10; Admin Dose 30 MLS/HR; Start 08/01/16 at 16:00 Vasopressin 60 unit/Dextrose 60 ml @ 1.2 mls/hr Q12H IV Last administered on 03:55; Admin Dose 2.4 MLS/HR; Start 08/01/16 at 17:30 Epinephrine/ Sodium Chloride (EPINEPHrine/NS) 250 ml @ 3.75 mls/hr TITRATE IV Last administered on 08/01/16 18:50; Admin Dose 3.75 MLS/HR; Start 08/01/16 at 19:30 Eye Lubricant (Artificial Tears Oph) 2 drop QID BOTH EYES Last administered on 08/10/16 21:12; Admin Dose 2 DROP; Start 08/02/16 at 09:00 Insulin Aspart (Novolog Insulin Pen) NOVOLOG *MODERATE* ALGORI... Q4 SC Last administered on 08/06/16 05:48; Admin Dose 2 UNIT; Start 08/02/16 at 09:00 Miscellaneous Information 1 ea NOTE XX ; Start 08/02/16 at 09:00 Glucose (Glutose) 15 gm Q15M PRN PO DECREASED GLUCOSE; Start 08/02/16 at 09:00 Glucose (Glutose) 22.5 gm Q15M PRN PO DECREASED GLUCOSE; Start 08/02/16 at 09:00 Dextrose (D50w Syringe) 25 ml Q15M PRN IV DECREASED GLUCOSE Last administered on 08/08/16 08:46; Admin Dose 25 ML; Start 08/02/16 at 09:00 Dextrose (D50w Syringe) 50 ml Q15M PRN IV DECREASED GLUCOSE; Start 08/02/16 at 09:00 Glucagon (Glucagen) 1 mg Q15M PRN IM DECREASED GLUCOSE; Start 08/02/16 at 09:00 Glucose 15 gm 15 gm Q15M PRN BUCCAL DECREASED GLUCOSE; Start 08/02/16 at 09:00 Midazolam HCl 50 ml @ 1 mls/hr TITRATE IV Last administered on 08/11/16 07:43 ; Admin Dose 9 MLS/HR; Start 08/02/16 at 09:30 Fentanyl 100 ml @ 2.5 mls/hr TITRATE IV Last administered on 08/11/16 05:59; Admin Dose 10 MLS/HR; Start 08/02/16 at 09:30 Metronidazole 100 ml @ 100 mls/hr Q8 IVPB Last administered on 08/11/16 05:59 ; Admin Dose 100 MLS/HR; Start 08/03/16 at 10:00 Piperacillin Sod/ Tazobactam Sod 100 ml @ 200 mls/hr Q8 IVPB Last administered on 08/11/16 05:58; Admin Dose 200 MLS/HR; Start 08/03/16 at 14:00 Vancomycin HCl/ Sodium Chloride (Vancocin/NS) 250 ml @ 83.333 mls/ hr Q96H IVPB Last administered on 08/10/16 16:19; Admin Dose 83.333 MLS/HR; Start at 16:00 Levothyroxine Sodium (Synthroid) 125 mcg DAILY@06 NGT Last administered on 08/11 05:58; Admin Dose 125 MCG; Start 08/08/16 at 06:00 Epoetin Goran (Epogen (Non Esrd/Non Oncology)) 10,000 units MoWeFr@17 SC Last administered on 08/10/16 17:34; Admin Dose 10,000 UNITS; Start 08/08/16 at 17:00 Terbinafine HCl (Lamisil) 250 mg BID NGT Last administered on 08/10/16 21:11; Admin Dose 250 MG; Start 08/08/16 at 21:00; Stop 08/15/16 at 20:59 Calcium Carbonate (Ca Carbonate) 1,250 mg Q12 NGT ; Start 08/11/16 at 09:00 ERIN MARTÍNEZ MD Aug 11, 2016 08:19
[2016-08-11 08:50] LABS: AADO2 Arterial 181.3 mmHg (7.0-24.0); Allen Test ACCEPTAB; Arterial Base Excess 0.7 mmol/L (-3.0-3); Arterial COHb 0.2 % (0.0-3.0); Arterial Fraction of Oxyhgb 92.6 % (93.0-99.0); Arterial MetHb 0.4 % (0.0-1.5); Arterial Total Hemglobin 11.6 g/dl (12.0-18.0); MODE VENT - AC
[2016-08-11] MEDS: PROPOFOL 100 ML IV SCH ×2 (09:30→21:30)
--- NOTE | 2016-08-11 09:31 | PN ---
DATE: 08/11/2016 SUBJECTIVE: The patient remains critical, but stable. Urinary output has increased, approximately 30 to 35 mL an hour. No other acute events noted. OBJECTIVE: VITAL SIGNS: Blood pressure 163/103, respirations 30, pulse 84, temperature 97.6. I's AND O'S: The patient had 2 liters in, 1 liter out. HEENT: Head is normocephalic. NECK: Supple. HEART: Regular rate. LUNGS: Showed diminished breath sounds at the base. ABDOMEN: Soft, nontender to palpation. No rebound or guarding. EXTREMITIES: Negative for clubbing or cyanosis. Positive edema. DERMATOLOGIC: No rashes. MUSCULOSKELETAL: Have no joint effusion. NEUROLOGIC: No change in exam. MEDICATIONS: The patient's medications have been reviewed. LABORATORY DATA: From 08/10/2016 shows a white count of 24.6, hemoglobin 9.9, hematocrit 27.7, plat elet count of 73. Sodium 142, potassium 3.7, BUN 62, creatinine 2.48. BMP for pending. The patient's chest x-ray and cultures are reviewed. ASSESSMENT AND PLAN: 1. Nonoliguric acute kidney injury, with unknown baseline creatinine. Etiology is secondary to acu te tubular necrosis due to septic shock. The patient has been dialysis dependent. The patient's ur inary output has been improving and the patient may be showing renal recovery. At this point, will follow up a renal panel this morning. If renal function continues to improve, will hold hemodialysi s. Otherwise, would anticipate dialysis today for solute clearance and volume removal. 2. Hematuria. Likely traumatic. Will repeat a UA with microanalysis and monitor closely. 3. Anemia. Status post blood transfusion. Continue to monitor H and H levels. Will give Epogen. 4. Mineral bone disorder. Continue to monitor calcium and phos levels. No need for phos binders. 5. Volume overload secondary to acute kidney injury failure and CHF. The patient is clinically impr oving. Continue ultrafiltration dialysis, consider a diuretic challenge. 6. Ventilator-dependent respiratory failure. Vent settings have been reviewed. ABG has been revie wed. Continue to monitor. Follow up with pulmonary. 7. Sepsis. Status post shock. The patient is currently off pressors. Continue the current antibi otic regimen. 8. Acute encephalopathy. Etiology is toxic metabolic. Continue to monitor. 9. Dysphagia. Status post PEG. Continue tube feeding. 10. Hypothyroidism. Continue Synthroid. 11. History of ETOH abuse. 12. Diabetes. Continue Accu-Cheks and insulin sliding scale. 13. Enterocolitis. 14. Status post cardiopulmonary arrest. Please note, I spent over 30 minutes of critical care time with this patient. Dictated By: BALDOMERO TOVAR/CHARLES Conf#: [id number] DID#: [id number]
--- NOTE | 2016-08-11 10:31 | RADRPT ---
PROCEDURE: XR Chest. CLINICAL INDICATION: Congestive heart failure TECHNIQUE: Single frontal chest x-ray. COMPARISON: 08/09/2016 FINDINGS: Endotracheal tube, nasogastric tube in place unchanged. . There is cardiomegaly with hilar vascular congestion and mild perihilar edema improved since previous examination. Low volumes with bibasila r atelectasis is present. Small left pleural effusion cannot be excluded.. Multiple artifacts over lie the chest limit evaluation.. The osseous structures are intact. IMPRESSION: Tubes and lines unchanged. Cardiomegaly with decreased hilar congestion and perihilar edema. Low lung volumes with persistent bibasilar atelectasis and possible small left pleural effusion. RPTAT: QQ .Juanito Evans MD, MD Date Time Electronically viewed and signed by .Juanito Evans MD, on 08/11/2016 10:31 .L/
[2016-08-11] MEDS ORDERED: LIDOCAINE 1% (MPF) 5 ML VIAL SC SCH (11:00)
--- NOTE | 2016-08-11 15:20 | RADRPT ---
PROCEDURE: Ultrasound guidance for PICC line placement by PICC line nurse. CLINICAL INDICATION: Central IV access TECHNIQUE: Ultrasound guidance was provided to PICC line nurse. Limited scanning of the upper ext remity veins is performed. COMPARISON: None FINDINGS: Limited scans of the upper extremity shows patent upper extremity veins. IMPRESSION: Ultrasound guidance provided to PICC line nurse for PICC line placement. RPTAT: QQ .Juanito Evans MD, Date Time Electronically viewed and signed by .Juanito Evans MD, on 08/11/2016 15:20 .L/
--- NOTE | 2016-08-11 15:37 | CONS ---
Date/Time of Note Date/Time of Note DATE: 08/11/16 TIME: 15:34 Consult Date/Type/Reason Admit Date/Time August 01, 2016 at 00:50 Initial Consult Date 08/01/16 Type of Consultation: Pulm/CCM Ordering Provider: NIKOLE KWON [facility], [facility] Subjective Remains sedated on mech vent. s/p PICC placement and HD Objective Vital Signs Date Time Temp Pulse Resp B/P Pulse Ox O2 Delivery O2 Flow Rate FiO2 08/11/16 12:45 85 30 132/80 96 Mechanical Ventilator 08/11/16 12:00 98.0 08/11/16 08:05 40 Intake and Output 08/10/16 08/10/16 08/11/16 15:00 23:00 07:00 Intake Total 776 ml 836.00 ml 549 ml Output Total 480 ml 330 ml 370 ml Balance 296 ml 506.00 ml 179 ml Exam HEENT: Dry mucous membranes. Pupils minimally responsive CARDIAC: S1, S2, no added sounds or murmurs. CHEST: Diminished air entry bilaterally with rales. ABDOMEN: Soft, nontender. No guarding or rebound. EXTREMITIES: No cyanosis, clubbing or edema. Results/Medications Result Diagram: 08/11/16 0544 08/11/16 0544 Results 24 hrs Laboratory Tests Test 08/10/16 17:21 08/10/16 20:56 08/11/16 01:13 08/11/16 04:55 Bedside Glucose 74 100 77 79 Test 08/11/16 05:44 08/11/16 07:00 08/11/16 08:22 08/11/16 14:04 White Blood Count 17.9 #H Red Blood Count 3.20 L Hemoglobin 10.2 L Hematocrit 29.4 L Mean Corpuscular Volume 91.9 Mean Corpuscular Hemoglobin 31.9 Mean Corpuscular Hemoglobin Concent 34.7 Red Cell Distribution Width 16.4 H Platelet Count 95 #L Mean Platelet Volume Neutrophils % 78.0 H Lymphocytes % 7.6 L Monocytes % 5.5 Eosinophils % 0.1 Basophils % 0.3 Nucleated Red Blood Cells % 2.8 H Neutrophils # 14.0 H Lymphocytes # 1.4 Monocytes # 1.0 H Eosinophils # 0.0 Basophils # 0.1 Nucleated Red Blood Cells # 0.5 H Sodium Level 143 Potassium Level 3.9 Chloride Level 107 Carbon Dioxide Level 26 Anion Gap 14 Blood Urea Nitrogen 64 H Creatinine 2.14 H Glucose Level 93 Calcium Level 10.5 H Blood Gas Specimen Source Blood arterial Arterial Blood Date Drawn 08/11/2016 8:30:29 AM Arterial Blood pH (Temp corrected) 7.512 H Arterial Blood pCO2 (Temp correct) 29.3 L Arterial Blood pO2 (Temp corrected) 70.2 L Arterial Blood HCO3 23.0 Arterial Blood Base Excess 0.7 Arterial Blood Oxygen Saturation 93.2 L Stanley Test ACCEPTAB Arterial Blood Gas Puncture Site Right Radial Arterial Blood Carboxyhemoglobin 0.2 Arterial Blood Methemoglobin 0.4 Blood Gas A-a O2 Differential 181.3 H Oxyhemoglobin Percent 92.6 L Total Hemoglobin 11.6 L Blood Gas Temperature 37.0 Blood Gas Respiration Rate 30.0 Blood Gas Actual Respiration Rate 30 Blood Gas Modality VENT - AC FiO2 40.0 Blood Gas Tidal Volume 570.0 Blood Gas Low PEEP Setting 5.0 Blood Gas Notified Whom Gemma ROSS Blood Gas Notified Time 08/11/2016 8:50:12 AM Bedside Glucose 98 125 Medications Current Medications Lorazepam (Ativan) 0.5 mg Q6H PRN IV ANXIETY Last administered on 08/07/16 23: 23; Admin Dose 0.5 MG; Start 08/01/16 at 03:00 Ondansetron HCl (Zofran Inj) 4 mg Q6H PRN IV NAUSEA AND/OR VOMITING; Start at 03:00 Metoclopramide HCl (Reglan) 10 mg Q6H PRN IV NAUSEA AND/OR VOMITING; Start at 03:00 Acetaminophen (Tylenol Tab) 650 mg Q6H PRN PO PAIN LEVEL 1-3 OR FEVER; Start at 03:00 Acetaminophen (Tylenol Supp) 650 mg Q4H PRN [place] PAIN LEVEL 1-3 OR FEVER; Start 08/01/16 at 06:30 Pantoprazole 40 mg 40 mg BID@06,18 IV Last administered on 08/11/16 05:58; Admin Dose 40 MG; Start 08/01/16 at 06:00 Propofol 100 ml @ 3.33 mls/hr Q12H IV Last administered on 08/02/16 09:30; Admin Dose 26.64 MLS/HR; Start 08/01/16 at 09:30 Phenylephrine HCl 40 mg/Dextrose 500 ml @ 0 mls/hr TITRATE IV Last administered on 08/02/16 04:58; Admin Dose 112.5 MLS/HR; Start 08/01/16 at 16:00 Norepinephrine 16 mg/Dextrose 500 ml @ 0 mls/hr TITRATE IV Last administered on 08/06/16 00:10; Admin Dose 30 MLS/HR; Start 08/01/16 at 16:00 Vasopressin 60 unit/Dextrose 60 ml @ 1.2 mls/hr Q12H IV Last administered on 03:55; Admin Dose 2.4 MLS/HR; Start 08/01/16 at 17:30 Epinephrine/ Sodium Chloride (EPINEPHrine/NS) 250 ml @ 3.75 mls/hr TITRATE IV Last administered on 08/01/16 18:50; Admin Dose 3.75 MLS/HR; Start 08/01/16 at 19:30 Eye Lubricant (Artificial Tears Oph) 2 drop QID BOTH EYES Last administered on 08/11/16 14:01; Admin Dose 2 DROP; Start 08/02/16 at 09:00 Insulin Aspart (Novolog Insulin Pen) NOVOLOG *MODERATE* ALGORI... Q4 SC Last administered on 08/06/16 05:48; Admin Dose 2 UNIT; Start 08/02/16 at 09:00 Miscellaneous Information 1 ea NOTE XX ; Start 08/02/16 at 09:00 Glucose (Glutose) 15 gm Q15M PRN PO DECREASED GLUCOSE; Start 08/02/16 at 09:00 Glucose (Glutose) 22.5 gm Q15M PRN PO DECREASED GLUCOSE; Start 08/02/16 at 09:00 Dextrose (D50w Syringe) 25 ml Q15M PRN IV DECREASED GLUCOSE Last administered on 08/08/16 08:46; Admin Dose 25 ML; Start 08/02/16 at 09:00 Dextrose (D50w Syringe) 50 ml Q15M PRN IV DECREASED GLUCOSE; Start 08/02/16 at 09:00 Glucagon (Glucagen) 1 mg Q15M PRN IM DECREASED GLUCOSE; Start 08/02/16 at 09:00 Glucose 15 gm 15 gm Q15M PRN BUCCAL DECREASED GLUCOSE; Start 08/02/16 at 09:00 Midazolam HCl 50 ml @ 1 mls/hr TITRATE IV Last administered on 08/11/16 15:06 ; Admin Dose 9 MLS/HR; Start 08/02/16 at 09:30 Fentanyl 100 ml @ 2.5 mls/hr TITRATE IV Last administered on 08/11/16 14:02; Admin Dose 10 MLS/HR; Start 08/02/16 at 09:30 Metronidazole 100 ml @ 100 mls/hr Q8 IVPB Last administered on 08/11/16 14:01 ; Admin Dose 100 MLS/HR; Start 08/03/16 at 10:00 Piperacillin Sod/ Tazobactam Sod 100 ml @ 200 mls/hr Q8 IVPB Last administered on 08/11/16 14:00; Admin Dose 200 MLS/HR; Start 08/03/16 at 14:00 Vancomycin HCl/ Sodium Chloride (Vancocin/NS) 250 ml @ 83.333 mls/ hr Q96H IVPB Last administered on 08/10/16 16:19; Admin Dose 83.333 MLS/HR; Start at 16:00 Levothyroxine Sodium (Synthroid) 125 mcg DAILY@06 NGT Last administered on 08/11 05:58; Admin Dose 125 MCG; Start 08/08/16 at 06:00 Epoetin Goran (Epogen (Non Esrd/Non Oncology)) 10,000 units MoWeFr@17 SC Last administered on 08/10/16 17:34; Admin Dose 10,000 UNITS; Start 08/08/16 at 17:00 Terbinafine HCl (Lamisil) 250 mg BID NGT Last administered on 08/11/16 08:12; Admin Dose 250 MG; Start 08/08/16 at 21:00; Stop 08/15/16 at 20:59 Calcium Carbonate (Ca Carbonate) 1,250 mg Q12 NGT Last administered on 08:21; Admin Dose 1,250 MG; Start 08/11/16 at 09:00 Lidocaine (Xylocaine 1% (Mpf)) 5 ml ONCE SC ; Start 08/11/16 at 11:00; Stop 01/18 at 10:59 Assessment/Plan Additional Assessment/Plan IMPRESSION 1. Acute renal failure 2. Respiratory failure/Hypoxemic in origin 3. Severe hypothyroidism 4. History of ETOH. 5. Status post septic shock requiring vasopressors. 6. Anemia 7. Insulin-dependent diabetes 8. FEN RECS: 1 HD/UF 2. Maintain MAP > 65 mm Hg 3. May try CPAP with PS in am 4. Titrate FiO2 5. DVT GI prophylaxis 6. Speech therapy evaluation once extubated 35 min CC time RODRIGUE ASTUDILLO MD Aug 11, 2016 15:37
--- NOTE | 2016-08-11 15:40 | RADRPT ---
PROCEDURE: XR Chest. CLINICAL INDICATION: PICC line placement TECHNIQUE: PA and lateral chest x-ray. COMPARISON: 08/11/2016 08:28 a.m. FINDINGS: There is a new left arm PICC line in place with tip coiled at the superior vena cava in the level of the azygos vein.. Cardiomegaly with hilar vascular congestion and perihilar edema is unchanged. Bi lateral basilar atelectasis and small left pleural effusion is unchanged. Endotracheal tube and renata ogastric tube in place unchanged.. The osseous structures are unremarkable. IMPRESSION: 1. Left arm PICC line in place with tip coiled at the level of the azygos vein and superior vena ca va junction. Recommend repositioning. 2. Hilar congestion with perihilar edema and left pleural effusion unchanged. Call report: A call report of the findings was made to PICC line nurse on 08/11/2016 3:40:07 PM.. RPTAT: QQ .Juanito Evans MD, MD Date Time Electronically viewed and signed by .Juanito Evans MD, on 08/11/2016 15:40 .L/
--- NOTE | 2016-08-11 15:49 | RADRPT ---
PROCEDURE: XR Chest. CLINICAL INDICATION: Repositioning of PICC line TECHNIQUE: Single frontal chest x-ray. COMPARISON: 03:25 p.m. FINDINGS: The left arm PICC line has been repositioned with tip extending to the cavoatrial junction. Endotra cheal tube and nasogastric tube in place unchanged. . Bilateral perihilar infiltrates or edema and small left pleural effusion are unchanged.. The cardiomediastinal silhouette is unremarkable. The o sseous structures are intact. IMPRESSION: Repositioning of left arm PICC line with tip at the cavoatrial junction. Otherwise no change. Call report: A call report of the findings was made to PICC line nurse on 08/11/2016 345 PM. RPTAT: QQ .Juanito Evans MD, Date Time Electronically viewed and signed by .Juanito Evans MD, on 08/11/2016 15:48 .L/
--- NOTE | 2016-08-11 17:36 | PN ---
Date/Time of Note Date/Time of Note DATE: 08/11/16 TIME: 17:35 Assessment/Plan VTE Prophylaxis VTE Prophylaxis Intervention: SCD's Lines/Catheters IV [facility]ter [facility]from [facility]): JOSE RAUL CATH Assessment/Plan Chief Complaint/Hosp Course 1. Status post cardiac arrest with ROSC 2/2 severe metabolic acidosis from #4 2. Acute encephalopathy secondary to #1 [toxic metabolic] 3. Ventilator dependent respiratory failure with probable ARDS and pulmonary edema per pulmonary 4. Severe acute renal failure now on hemodialysis with unknown baseline thought to be secondary to severe ATN 5. Severe Sepsis with septic shock and lactic acidosis on pressors 6. Newly diagnosed Hypothyroidism 7. Chronic Alcohol use and abuse 8. Anemia likely secondary to chronic disease but a component of malnutrition from chronic alcohol abuse 9. Enterocolitis 10. Thrombocytopenia which could be as a result of liver disease, will have to rule out heparin-induced thrombocytopenia 11. Severe fatty liver with Transaminitis and mild hyperbilirubinemia indicating a measure of chronic liver disease vs shock liver 12. Bilateral pneumonia likely aspiration 13. Coagulase neg Staph UTI 14. Hypophosphatemia 15. Steroid-induced hyperglycemia vs type 2 DM requiring low-dose Lantus and NPH 16. Positive stool occult blood on twice daily PPI PLAN: Continue broad-spectrum antibiotics with IV vancomycin and Zosyn, cultures are insignificant at this time Continue to wean pressors Continue hemodialysis per nephrology Continue vent management and weaning, patient may need trach if unable to wean off vent, CPAP trials today Endocrinology managing sugars and thyroid profile Continue serial electrolyte monitoring and replenishment Continue supportive ICU care, palliative care is following Prophylaxis : SCDS / PPI Problems: Subjective 24 Hr Interval Summary Subjective hx not possible: pt non-verbal Exam/Review of Systems Vital Signs Vitals Vital Signs Date Time Temp Pulse Resp B/P Pulse Ox O2 Delivery O2 Flow Rate FiO2 08/11/16 16:00 84 08/11/16 15:35 30 96 40 08/11/16 15:30 113/86 Mechanical Ventilator 08/11/16 12:00 98.0 Intake and Output 08/10/16 08/10/16 08/11/16 15:00 23:00 07:00 Intake Total 776 ml 836.00 ml 549 ml Output Total 480 ml 330 ml 370 ml Balance 296 ml 506.00 ml 179 ml Exam Constitutional: non-verbal Respiratory: clear to auscultation Cardiovascular: regular rate and rhythm Gastrointestinal: soft, No distended Musculoskeletal: nl extremities to inspection Results Result Diagram: 08/11/16 0544 08/11/16 0544 Results 24 hrs Laboratory Tests Test 08/10/16 20:56 08/11/16 01:13 08/11/16 04:55 08/11/16 05:44 Bedside Glucose 100 77 79 White Blood Count 17.9 #H Red Blood Count 3.20 L Hemoglobin 10.2 L Hematocrit 29.4 L Mean Corpuscular Volume 91.9 Mean Corpuscular Hemoglobin 31.9 Mean Corpuscular Hemoglobin Concent 34.7 Red Cell Distribution Width 16.4 H Platelet Count 95 #L Mean Platelet Volume Neutrophils % 78.0 H Lymphocytes % 7.6 L Monocytes % 5.5 Eosinophils % 0.1 Basophils % 0.3 Nucleated Red Blood Cells % 2.8 H Neutrophils # 14.0 H Lymphocytes # 1.4 Monocytes # 1.0 H Eosinophils # 0.0 Basophils # 0.1 Nucleated Red Blood Cells # 0.5 H Sodium Level 143 Potassium Level 3.9 Chloride Level 107 Carbon Dioxide Level 26 Anion Gap 14 Blood Urea Nitrogen 64 H Creatinine 2.14 H Glucose Level 93 Calcium Level 10.5 H Test 08/11/16 07:00 08/11/16 08:22 08/11/16 14:04 Blood Gas Specimen Source Blood arterial Arterial Blood Date Drawn 08/11/2016 8:30:29 AM Arterial Blood pH (Temp corrected) 7.512 H Arterial Blood pCO2 (Temp correct) 29.3 L Arterial Blood pO2 (Temp corrected) 70.2 L Arterial Blood HCO3 23.0 Arterial Blood Base Excess 0.7 Arterial Blood Oxygen Saturation 93.2 L Stanley Test ACCEPTAB Arterial Blood Gas Puncture Site Right Radial Arterial Blood Carboxyhemoglobin 0.2 Arterial Blood Methemoglobin 0.4 Blood Gas A-a O2 Differential 181.3 H Oxyhemoglobin Percent 92.6 L Total Hemoglobin 11.6 L Blood Gas Temperature 37.0 Blood Gas Respiration Rate 30.0 Blood Gas Actual Respiration Rate 30 Blood Gas Modality VENT - AC FiO2 40.0 Blood Gas Tidal Volume 570.0 Blood Gas Low PEEP Setting 5.0 Blood Gas Notified Whom Gemma ROSS Blood Gas Notified Time 08/11/2016 8:50:12 AM Bedside Glucose 98 125 Medications Medications Current Medications Lorazepam (Ativan) 0.5 mg Q6H PRN IV ANXIETY Last administered on 08/07/16 23: 23; Admin Dose 0.5 MG; Start 08/01/16 at 03:00 Ondansetron HCl (Zofran Inj) 4 mg Q6H PRN IV NAUSEA AND/OR VOMITING; Start at 03:00 Metoclopramide HCl (Reglan) 10 mg Q6H PRN IV NAUSEA AND/OR VOMITING; Start at 03:00 Acetaminophen (Tylenol Tab) 650 mg Q6H PRN PO PAIN LEVEL 1-3 OR FEVER; Start at 03:00 Acetaminophen (Tylenol Supp) 650 mg Q4H PRN [place] PAIN LEVEL 1-3 OR FEVER; Start 08/01/16 at 06:30 Pantoprazole 40 mg 40 mg BID@06,18 IV Last administered on 08/11/16 05:58; Admin Dose 40 MG; Start 08/01/16 at 06:00 Propofol 100 ml @ 3.33 mls/hr Q12H IV Last administered on 08/02/16 09:30; Admin Dose 26.64 MLS/HR; Start 08/01/16 at 09:30 Phenylephrine HCl 40 mg/Dextrose 500 ml @ 0 mls/hr TITRATE IV Last administered on 08/02/16 04:58; Admin Dose 112.5 MLS/HR; Start 08/01/16 at 16:00 Norepinephrine 16 mg/Dextrose 500 ml @ 0 mls/hr TITRATE IV Last administered on 08/06/16 00:10; Admin Dose 30 MLS/HR; Start 08/01/16 at 16:00 Vasopressin 60 unit/Dextrose 60 ml @ 1.2 mls/hr Q12H IV Last administered on 03:55; Admin Dose 2.4 MLS/HR; Start 08/01/16 at 17:30 Epinephrine/ Sodium Chloride (EPINEPHrine/NS) 250 ml @ 3.75 mls/hr TITRATE IV Last administered on 08/01/16 18:50; Admin Dose 3.75 MLS/HR; Start 08/01/16 at 19:30 Eye Lubricant (Artificial Tears Oph) 2 drop QID BOTH EYES Last administered on 08/11/16 14:01; Admin Dose 2 DROP; Start 08/02/16 at 09:00 Insulin Aspart (Novolog Insulin Pen) NOVOLOG *MODERATE* ALGORI... Q4 SC Last administered on 08/06/16 05:48; Admin Dose 2 UNIT; Start 08/02/16 at 09:00 Miscellaneous Information 1 ea NOTE XX ; Start 08/02/16 at 09:00 Glucose (Glutose) 15 gm Q15M PRN PO DECREASED GLUCOSE; Start 08/02/16 at 09:00 Glucose (Glutose) 22.5 gm Q15M PRN PO DECREASED GLUCOSE; Start 08/02/16 at 09:00 Dextrose (D50w Syringe) 25 ml Q15M PRN IV DECREASED GLUCOSE Last administered on 08/08/16 08:46; Admin Dose 25 ML; Start 08/02/16 at 09:00 Dextrose (D50w Syringe) 50 ml Q15M PRN IV DECREASED GLUCOSE; Start 08/02/16 at 09:00 Glucagon (Glucagen) 1 mg Q15M PRN IM DECREASED GLUCOSE; Start 08/02/16 at 09:00 Glucose 15 gm 15 gm Q15M PRN BUCCAL DECREASED GLUCOSE; Start 08/02/16 at 09:00 Midazolam HCl 50 ml @ 1 mls/hr TITRATE IV Last administered on 08/11/16 15:06 ; Admin Dose 9 MLS/HR; Start 08/02/16 at 09:30 Fentanyl 100 ml @ 2.5 mls/hr TITRATE IV Last administered on 08/11/16 14:02; Admin Dose 10 MLS/HR; Start 08/02/16 at 09:30 Metronidazole 100 ml @ 100 mls/hr Q8 IVPB Last administered on 08/11/16 14:01 ; Admin Dose 100 MLS/HR; Start 08/03/16 at 10:00 Piperacillin Sod/ Tazobactam Sod 100 ml @ 200 mls/hr Q8 IVPB Last administered on 08/11/16 14:00; Admin Dose 200 MLS/HR; Start 08/03/16 at 14:00 Vancomycin HCl/ Sodium Chloride (Vancocin/NS) 250 ml @ 83.333 mls/ hr Q96H IVPB Last administered on 08/10/16 16:19; Admin Dose 83.333 MLS/HR; Start at 16:00 Levothyroxine Sodium (Synthroid) 125 mcg DAILY@06 NGT Last administered on 08/11 05:58; Admin Dose 125 MCG; Start 08/08/16 at 06:00 Epoetin Goran (Epogen (Non Esrd/Non Oncology)) 10,000 units MoWeFr@17 SC Last administered on 08/10/16 17:34; Admin Dose 10,000 UNITS; Start 08/08/16 at 17:00 Terbinafine HCl (Lamisil) 250 mg BID NGT Last administered on 08/11/16 08:12; Admin Dose 250 MG; Start 08/08/16 at 21:00; Stop 08/15/16 at 20:59 Calcium Carbonate (Ca Carbonate) 1,250 mg Q12 NGT Last administered on 08:21; Admin Dose 1,250 MG; Start 08/11/16 at 09:00 Lidocaine (Xylocaine 1% (Mpf)) 5 ml ONCE SC ; Start 08/11/16 at 11:00; Stop 01/18 at 10:59 SANYA SMILEY Aug 11, 2016 17:35
--- NOTE | 2016-08-11 18:45 | CONS ---
Date/Time of Note Date/Time of Note DATE: 08/11/16 TIME: 18:45 Assessment/Plan Assessment/Plan Chief Complaint/Hosp Course SUBJECTIVE: No events. The patient is intubated, more awake, looks comfortable , no fevers. INDWELLINGS: Endotracheal tube, left femoral triple lumen catheter, right femoral Deni catheter. ANTIMICROBIALS: 1. Vancomycin. 2. Zosyn. 3. Flagyl. MICROBIOLOGY: Blood cultures have been negative. Urine culture negative. Stool for C. diff also came back negative. PHYSICAL EXAMINATION: GENERAL: Chronically ill-appearing, middle-aged man who is intubated and sedated, in no distress. HEENT: Head atraumatic, normocephalic. Sclerae anicteric. Buccal mucosa dry. NECK: Supple, trachea midline. CHEST: Rise symmetrical. Breath sounds diminished to bases. HEART: S1, S2. ABDOMEN: Distended, soft. Bowel tones hypoactive. EXTREMITIES: Bilateral edema. ASSESSMENT: 1. Sepsis with persistent leukocytosis, status post shock. So far cultures have been negative. 2. Acute respiratory failure. 3. Acute kidney injury, started on hemodialysis. 4. Status post cardiopulmonary arrest. 5. Encephalopathy. 6. History of ETOH abuse. 7. Diarrhea. PLAN: The patient remains stable, wbc decreasing, continue abx, follow recommendations of consultants. DW staff Problems: Consultation Date/Type/Reason Admit Date/Time August 01, 2016 at 00:50 Initial Consult Date 08/01/16 Type of Consultation: ID Referring Provider: [facility]WON [facility] Exam/Review of Systems Vital Signs Vitals Vital Signs Date Time Temp Pulse Resp B/P Pulse Ox O2 Delivery O2 Flow Rate FiO2 08/11/16 17:05 93 30 95 40 08/11/16 15:30 113/86 Mechanical Ventilator 08/11/16 12:00 98.0 Intake and Output 08/10/16 08/10/16 08/11/16 15:00 23:00 07:00 Intake Total 776 ml 836.00 ml 549 ml Output Total 480 ml 330 ml 370 ml Balance 296 ml 506.00 ml 179 ml Results Result Diagram: 08/11/16 0544 08/11/16 0544 Results 24 hrs Laboratory Tests Test 08/10/16 20:56 08/11/16 01:13 08/11/16 04:55 08/11/16 05:44 Bedside Glucose 100 77 79 White Blood Count 17.9 #H Red Blood Count 3.20 L Hemoglobin 10.2 L Hematocrit 29.4 L Mean Corpuscular Volume 91.9 Mean Corpuscular Hemoglobin 31.9 Mean Corpuscular Hemoglobin Concent 34.7 Red Cell Distribution Width 16.4 H Platelet Count 95 #L Mean Platelet Volume Neutrophils % 78.0 H Lymphocytes % 7.6 L Monocytes % 5.5 Eosinophils % 0.1 Basophils % 0.3 Nucleated Red Blood Cells % 2.8 H Neutrophils # 14.0 H Lymphocytes # 1.4 Monocytes # 1.0 H Eosinophils # 0.0 Basophils # 0.1 Nucleated Red Blood Cells # 0.5 H Sodium Level 143 Potassium Level 3.9 Chloride Level 107 Carbon Dioxide Level 26 Anion Gap 14 Blood Urea Nitrogen 64 H Creatinine 2.14 H Glucose Level 93 Calcium Level 10.5 H Test 08/11/16 07:00 08/11/16 08:22 08/11/16 14:04 08/11/16 17:46 Blood Gas Specimen Source Blood arterial Arterial Blood Date Drawn 08/11/2016 8:30:29 AM Arterial Blood pH (Temp corrected) 7.512 H Arterial Blood pCO2 (Temp correct) 29.3 L Arterial Blood pO2 (Temp corrected) 70.2 L Arterial Blood HCO3 23.0 Arterial Blood Base Excess 0.7 Arterial Blood Oxygen Saturation 93.2 L Stanley Test ACCEPTAB Arterial Blood Gas Puncture Site Right Radial Arterial Blood Carboxyhemoglobin 0.2 Arterial Blood Methemoglobin 0.4 Blood Gas A-a O2 Differential 181.3 H Oxyhemoglobin Percent 92.6 L Total Hemoglobin 11.6 L Blood Gas Temperature 37.0 Blood Gas Respiration Rate 30.0 Blood Gas Actual Respiration Rate 30 Blood Gas Modality VENT - AC FiO2 40.0 Blood Gas Tidal Volume 570.0 Blood Gas Low PEEP Setting 5.0 Blood Gas Notified Whom Gemma ROSS Blood Gas Notified Time 08/11/2016 8:50:12 AM Bedside Glucose 98 125 104 Medications Medications Current Medications Lorazepam (Ativan) 0.5 mg Q6H PRN IV ANXIETY Last administered on 08/07/16t 23: 23; Admin Dose 0.5 MG; Start 08/01/16 at 03:00 Ondansetron HCl (Zofran Inj) 4 mg Q6H PRN IV NAUSEA AND/OR VOMITING; Start at 03:00 Metoclopramide HCl (Reglan) 10 mg Q6H PRN IV NAUSEA AND/OR VOMITING; Start at 03:00 Acetaminophen (Tylenol Tab) 650 mg Q6H PRN PO PAIN LEVEL 1-3 OR FEVER; Start at 03:00 Acetaminophen (Tylenol Supp) 650 mg Q4H PRN [place] PAIN LEVEL 1-3 OR FEVER; Start 08/01/16 at 06:30 Pantoprazole 40 mg 40 mg BID@06,18 IV Last administered on 08/11/16 17:47; Admin Dose 40 MG; Start 08/01/16 at 06:00 Propofol 100 ml @ 3.33 mls/hr Q12H IV Last administered on 08/02/16 09:30; Admin Dose 26.64 MLS/HR; Start 08/01/16 at 09:30 Phenylephrine HCl 40 mg/Dextrose 500 ml @ 0 mls/hr TITRATE IV Last administered on 08/02/16 04:58; Admin Dose 112.5 MLS/HR; Start 08/01/16 at 16:00 Norepinephrine 16 mg/Dextrose 500 ml @ 0 mls/hr TITRATE IV Last administered on 08/06/16 00:10; Admin Dose 30 MLS/HR; Start 08/01/16 at 16:00 Vasopressin 60 unit/Dextrose 60 ml @ 1.2 mls/hr Q12H IV Last administered on 03:55; Admin Dose 2.4 MLS/HR; Start 08/01/16 at 17:30 Epinephrine/ Sodium Chloride (EPINEPHrine/NS) 250 ml @ 3.75 mls/hr TITRATE IV Last administered on 08/01/16 18:50; Admin Dose 3.75 MLS/HR; Start 08/01/16 at 19:30 Eye Lubricant (Artificial Tears Oph) 2 drop QID BOTH EYES Last administered on 08/11/16 17:48; Admin Dose 2 DROP; Start 08/02/16 at 09:00 Insulin Aspart (Novolog Insulin Pen) NOVOLOG *MODERATE* ALGORI... Q4 SC Last administered on 08/06/16 05:48; Admin Dose 2 UNIT; Start 08/02/16 at 09:00 Miscellaneous Information 1 ea NOTE XX ; Start 08/02/16 at 09:00 Glucose (Glutose) 15 gm Q15M PRN PO DECREASED GLUCOSE; Start 08/02/16 at 09:00 Glucose (Glutose) 22.5 gm Q15M PRN PO DECREASED GLUCOSE; Start 08/02/16 at 09:00 Dextrose (D50w Syringe) 25 ml Q15M PRN IV DECREASED GLUCOSE Last administered on 08/08/16 08:46; Admin Dose 25 ML; Start 08/02/16 at 09:00 Dextrose (D50w Syringe) 50 ml Q15M PRN IV DECREASED GLUCOSE; Start 08/02/16 at 09:00 Glucagon (Glucagen) 1 mg Q15M PRN IM DECREASED GLUCOSE; Start 08/02/16 at 09:00 Glucose 15 gm 15 gm Q15M PRN BUCCAL DECREASED GLUCOSE; Start 08/02/16 at 09:00 Midazolam HCl 50 ml @ 1 mls/hr TITRATE IV Last administered on 08/11/16 15:06 ; Admin Dose 9 MLS/HR; Start 08/02/16 at 09:30 Fentanyl 100 ml @ 2.5 mls/hr TITRATE IV Last administered on 08/11/16 14:02; Admin Dose 10 MLS/HR; Start 08/02/16 at 09:30 Metronidazole 100 ml @ 100 mls/hr Q8 IVPB Last administered on 08/11/16 14:01 ; Admin Dose 100 MLS/HR; Start 08/03/16 at 10:00 Piperacillin Sod/ Tazobactam Sod 100 ml @ 200 mls/hr Q8 IVPB Last administered on 08/11/16 14:00; Admin Dose 200 MLS/HR; Start 08/03/16 at 14:00 Vancomycin HCl/ Sodium Chloride (Vancocin/NS) 250 ml @ 83.333 mls/ hr Q96H IVPB Last administered on 08/10/16 16:19; Admin Dose 83.333 MLS/HR; Start at 16:00 Levothyroxine Sodium (Synthroid) 125 mcg DAILY@06 NGT Last administered on 08/11 05:58; Admin Dose 125 MCG; Start 08/08/16 at 06:00 Epoetin Goran (Epogen (Non Esrd/Non Oncology)) 10,000 units MoWeFr@17 SC Last administered on 08/10/16 17:34; Admin Dose 10,000 UNITS; Start 08/08/16 at 17:00 Terbinafine HCl (Lamisil) 250 mg BID NGT Last administered on 08/11/16 08:12; Admin Dose 250 MG; Start 08/08/16 at 21:00; Stop 08/15/16 at 20:59 Calcium Carbonate (Ca Carbonate) 1,250 mg Q12 NGT Last administered on 08:21; Admin Dose 1,250 MG; Start 08/11/16 at 09:00 Lidocaine (Xylocaine 1% (Mpf)) 5 ml ONCE SC ; Start 08/11/16 at 11:00; Stop 01/18 at 10:59 RADHA ESCALANTE NP Aug 11, 2016 18:45
[2016-08-12] VITALS (39 sets, daily range): BP systolic 102–173; BP diastolic 64–157; PULSE 76–108; RESP 21–38
[2016-08-12] MEDS: INSULIN ASPART [NOVOLOG] 3 ML PEN SC SCH ×6 (00:42→20:34)
[2016-08-12] MEDS: MIDAZOLAM (DRIP) 50 mg/50 mL 50 ML IV SCH ×2 (01:23→12:06)
[2016-08-12 04:35] LABS: ADD SCAN DIFF NO
[2016-08-12 04:51] LABS: ABNORMAL IP MESSAGE 1; BASOPHILS % 0.1 % (0.0-2.0); HEMATOCRIT 29.6 % (42.0-52.0); HEMOGLOBIN 10.1 g/dl (14.0-18.0); LYMPHOCYTES # 1.3 10^3/ul (0.8-2.9); LYMPHOCYTES % 8.5 % (15.0-51.0); MEAN CORPUSCULAR HEMOGLOBIN 32.1 pg (29.0-33.0); MEAN CORPUSCULAR HGB CONC 34.1 g/dl (32.0-37.0); MONOCYTE # 0.9 10^3/ul (0.3-0.9); MONOCYTES % 5.6 % (0.0-11.0); NEUTROPHIL # 12.4 10^3/ul (1.6-7.5); NEUTROPHILS % 80.2 % (39.0-77.0); NUCLEATED RED BLOOD CELLS # 0.3 10^3/ul (0.0-0.0); NUCLEATED RED BLOOD CELLS% 1.8 /100WBC (0.0-0.0); PLATELET COUNT 92 10^3/UL (140-415); RED BLOOD COUNT 3.15 10^6/ul (4.70-6.10); RED CELL DISTRIBUTION WIDTH 17.7 % (11.5-14.5); WHITE BLOOD COUNT 15.4 10^3/ul (4.8-10.8)
[2016-08-12 05:07] LABS: CREATININE 1.79 mg/dl (0.61-1.24); MAGNESIUM 1.9 mg/dl (1.7-2.5); PHOSPHORUS 3.7 mg/dl (2.5-4.9); POTASSIUM 3.7 mmol/L (3.5-5.1)
[2016-08-12] MEDS: VASOPRESSIN 60 UNIT in DEXTROSE 5% 57 ML IV SCH ×2 (05:30→17:30)
[2016-08-12] MEDS: PIPER-TAZO 3.375 GM IV (PMX) 100 ML IVPB SCH ×3 (05:34→21:37)
[2016-08-12] MEDS: FUROSEMIDE 40 MG INJ IV SCH ×2 (05:39→17:55)
[2016-08-12] MEDS: PANTOPRAZOLE 40 MG INJ IV SCH ×2 (05:39→17:54)
[2016-08-12] MEDS: LEVOTHYROXINE 125 MCG TAB NGT SCH (05:39)
[2016-08-12] MEDS: metroNIDAZOLE 500 MG/NS (PMX) 100 ML IVPB SCH ×3 (06:14→22:14)
--- NOTE | 2016-08-12 07:04 | CONS ---
Date/Time of Note Date/Time of Note DATE: 08/12/16 TIME: 06:58 Assessment/Plan Assessment/Plan Chief Complaint/Hosp Course 60-year-old right-handed -[place] gentleman normally cared for at the [facility] system. He was admitted to the hospital but it had cardiac arrest in the hospital. Please note that his picture actually looked a bit like adrenal insufficiency except that he has a serum cortisol level of 44 prior to his arrest. He had a TSH of 21 with a low free T4 and a low T3. Patient is intubated and unable to give a history although he is able to look and follows rudimentary commands. At this time many of his metabolic abnormalities have improved. Problems: (1) Sepsis syndrome Status: Acute Comment: We never cultured a specific culprit organism. Regardless he has responded well to aggressive therapies including antibiotics. It appears that he may be turning the corner. Continue supportive care antibiotics etc. as white count is decreasing his vital signs are normalizing. (2) Hematuria of undiagnosed cause Status: Acute Comment: Resolving. (3) Alcohol abuse Status: Chronic Comment: Past the point to expect DTs (4) Hypothyroidism Status: Chronic Comment: On replacement therapy Qualifiers: Hypothyroidism type: acquired Qualified Code: E03.9 - Acquired hypothyroidism (5) Hyperglycemia Status: Acute Comment: Resolved with removal of the steroids. Please note that he does have the genetics for diabetes. He will of loss of weight which will of course correct some of these. (6) Acute kidney injury Status: Acute Comment: Resolving slowly Consultation Date/Type/Reason Admit Date/Time August 01, 2016 at 00:50 Initial Consult Date 08/01/16 Type of Consultation: Endocrinology Reason for Consultation Hypothyroidism; steroid-induced hyperglycemia; calcium disturbance; Referring Provider: NIKOLE KWON MD, [facility] 24 HR Interval Summary Free Text/Dictation Presently on midazolam and fentanyl drips those are being turned off for CPAP trial today Subjective hx not possible: pt non-verbal Exam/Review of Systems Vital Signs Vitals Vital Signs Date Time Temp Pulse Resp B/P Pulse Ox O2 Delivery O2 Flow Rate FiO2 08/12/16 06:00 85 30 130/83 99 Mechanical Ventilator 08/12/16 05:25 40 08/12/16 04:00 97.4 Intake and Output 08/11/16 08/11/16 08/12/16 15:00 23:00 07:00 Intake Total 1344 ml 725 ml 350 ml Output Total 2820 ml 1240 ml 725 ml Balance -1476 ml -515 ml -375 ml Exam Constitutional: non-verbal Neck: non-tender, supple Respiratory: clear to auscultation, normal air movement Cardiovascular: nl pulses, regular rate and rhythm Results Result Diagram: 08/12/16 0325 08/12/16 0325 Results 24 hrs Laboratory Tests Test 08/11/16 07:00 08/11/16 08:22 08/11/16 14:04 08/11/16 17:46 Blood Gas Specimen Source Blood arterial Arterial Blood Date Drawn 08/11/2016 8:30:29 AM Arterial Blood pH (Temp corrected) 7.512 H Arterial Blood pCO2 (Temp correct) 29.3 L Arterial Blood pO2 (Temp corrected) 70.2 L Arterial Blood HCO3 23.0 Arterial Blood Base Excess 0.7 Arterial Blood Oxygen Saturation 93.2 L Stanley Test ACCEPTAB Arterial Blood Gas Puncture Site Right Radial Arterial Blood Carboxyhemoglobin 0.2 Arterial Blood Methemoglobin 0.4 Blood Gas A-a O2 Differential 181.3 H Oxyhemoglobin Percent 92.6 L Total Hemoglobin 11.6 L Blood Gas Temperature 37.0 Blood Gas Respiration Rate 30.0 Blood Gas Actual Respiration Rate 30 Blood Gas Modality VENT - AC FiO2 40.0 Blood Gas Tidal Volume 570.0 Blood Gas Low PEEP Setting 5.0 Blood Gas Notified Whom Gemma ROSS Blood Gas Notified Time 08/11/2016 8:50:12 AM Bedside Glucose 98 125 104 Test 08/11/16 20:13 08/12/16 00:31 08/12/16 03:25 08/12/16 05:38 Bedside Glucose 82 99 80 White Blood Count 15.4 H Red Blood Count 3.15 L Hemoglobin 10.1 L Hematocrit 29.6 L Mean Corpuscular Volume 94.0 Mean Corpuscular Hemoglobin 32.1 Mean Corpuscular Hemoglobin Concent 34.1 Red Cell Distribution Width 17.7 H Platelet Count 92 L Mean Platelet Volume Neutrophils % 80.2 H Lymphocytes % 8.5 L Monocytes % 5.6 Eosinophils % 0.0 Basophils % 0.1 Nucleated Red Blood Cells % 1.8 H Neutrophils # 12.4 H Lymphocytes # 1.3 Monocytes # 0.9 Eosinophils # 0.0 Basophils # 0.0 Nucleated Red Blood Cells # 0.3 H Sodium Level 141 Potassium Level 3.7 Chloride Level 104 Carbon Dioxide Level 27 Anion Gap 14 Blood Urea Nitrogen 52 H Creatinine 1.79 H Glucose Level 100 Lactic Acid Level 1.1 Calcium Level 10.0 Phosphorus Level 3.7 Magnesium Level 1.9 Medications Medications Current Medications Lorazepam (Ativan) 0.5 mg Q6H PRN IV ANXIETY Last administered on 08/07/16 23: 23; Admin Dose 0.5 MG; Start 08/01/16 at 03:00 Ondansetron HCl (Zofran Inj) 4 mg Q6H PRN IV NAUSEA AND/OR VOMITING; Start at 03:00 Metoclopramide HCl (Reglan) 10 mg Q6H PRN IV NAUSEA AND/OR VOMITING; Start at 03:00 Acetaminophen (Tylenol Tab) 650 mg Q6H PRN PO PAIN LEVEL 1-3 OR FEVER; Start at 03:00 Acetaminophen (Tylenol Supp) 650 mg Q4H PRN [place] PAIN LEVEL 1-3 OR FEVER; Start 08/01/16 at 06:30 Pantoprazole 40 mg 40 mg BID@06,18 IV Last administered on 08/12/16 05:39; Admin Dose 40 MG; Start 08/01/16 at 06:00 Propofol 100 ml @ 3.33 mls/hr Q12H IV Last administered on 08/02/16 09:30; Admin Dose 26.64 MLS/HR; Start 08/01/16 at 09:30 Phenylephrine HCl 40 mg/Dextrose 500 ml @ 0 mls/hr TITRATE IV Last administered on 08/02/16 04:58; Admin Dose 112.5 MLS/HR; Start 08/01/16 at 16:00 Norepinephrine 16 mg/Dextrose 500 ml @ 0 mls/hr TITRATE IV Last administered on 08/06/16 00:10; Admin Dose 30 MLS/HR; Start 08/01/16 at 16:00 Vasopressin 60 unit/Dextrose 60 ml @ 1.2 mls/hr Q12H IV Last administered on 03:55; Admin Dose 2.4 MLS/HR; Start 08/01/16 at 17:30 Epinephrine/ Sodium Chloride (EPINEPHrine/NS) 250 ml @ 3.75 mls/hr TITRATE IV Last administered on 08/01/16 18:50; Admin Dose 3.75 MLS/HR; Start 08/01/16 at 19:30 Eye Lubricant (Artificial Tears Oph) 2 drop QID BOTH EYES Last administered on 08/11/16 20:14; Admin Dose 2 DROP; Start 08/02/16 at 09:00 Insulin Aspart (Novolog Insulin Pen) NOVOLOG *MODERATE* ALGORI... Q4 SC Last administered on 08/06/16 05:48; Admin Dose 2 UNIT; Start 08/02/16 at 09:00 Miscellaneous Information 1 ea NOTE XX ; Start 08/02/16 at 09:00 Glucose (Glutose) 15 gm Q15M PRN PO DECREASED GLUCOSE; Start 08/02/16 at 09:00 Glucose (Glutose) 22.5 gm Q15M PRN PO DECREASED GLUCOSE; Start 08/02/16 at 09:00 Dextrose (D50w Syringe) 25 ml Q15M PRN IV DECREASED GLUCOSE Last administered on 08/08/16 08:46; Admin Dose 25 ML; Start 08/02/16 at 09:00 Dextrose (D50w Syringe) 50 ml Q15M PRN IV DECREASED GLUCOSE; Start 08/02/16 at 09:00 Glucagon (Glucagen) 1 mg Q15M PRN IM DECREASED GLUCOSE; Start 08/02/16 at 09:00 Glucose 15 gm 15 gm Q15M PRN BUCCAL DECREASED GLUCOSE; Start 08/02/16 at 09:00 Midazolam HCl 50 ml @ 1 mls/hr TITRATE IV Last administered on 08/12/16 01:23 ; Admin Dose 10 MLS/HR; Start 08/02/16 at 09:30 Fentanyl 100 ml @ 2.5 mls/hr TITRATE IV Last administered on 08/11/16 22:33; Admin Dose 10 MLS/HR; Start 08/02/16 at 09:30 Metronidazole 100 ml @ 100 mls/hr Q8 IVPB Last administered on 08/12/16 06:14 ; Admin Dose 100 MLS/HR; Start 08/03/16 at 10:00 Piperacillin Sod/ Tazobactam Sod 100 ml @ 200 mls/hr Q8 IVPB Last administered on 08/12/16 05:34; Admin Dose 200 MLS/HR; Start 08/03/16 at 14:00 Vancomycin HCl/ Sodium Chloride (Vancocin/NS) 250 ml @ 83.333 mls/ hr Q96H IVPB Last administered on 08/10/16 16:19; Admin Dose 83.333 MLS/HR; Start at 16:00 Levothyroxine Sodium (Synthroid) 125 mcg DAILY@06 NGT Last administered on 08/12 05:39; Admin Dose 125 MCG; Start 08/08/16 at 06:00 Epoetin Goran (Epogen (Non Esrd/Non Oncology)) 10,000 units MoWeFr@17 SC Last administered on 08/10/16 17:34; Admin Dose 10,000 UNITS; Start 08/08/16 at 17:00 Terbinafine HCl (Lamisil) 250 mg BID NGT Last administered on 08/11/16 20:14; Admin Dose 250 MG; Start 08/08/16 at 21:00; Stop 08/15/16 at 20:59 Calcium Carbonate (Ca Carbonate) 1,250 mg Q12 NGT Last administered on 20:14; Admin Dose 1,250 MG; Start 08/11/16 at 09:00 Lidocaine (Xylocaine 1% (Mpf)) 5 ml ONCE SC ; Start 08/11/16 at 11:00; Stop 01/18 at 10:59 IV Flush (NS 10 ml) 10 ml PRN PRN IV FLUSH LINE; Start 08/11/16 at 20:00 ERIN MARTÍNEZ MD Aug 12, 2016 07:04
[2016-08-12] MEDS: TERBINAFINE 250 MG TAB NGT SCH ×2 (08:46→20:29)
[2016-08-12] MEDS: CA CARBONATE (250 MG/ML) 5ML CUP NGT SCH ×2 (08:46→20:29)
[2016-08-12] MEDS: ARTIFICIAL TEARS 15 ML OPH BOTH EYES SCH ×4 (08:46→20:29)
[2016-08-12] MEDS: PROPOFOL 100 ML IV SCH ×3 (09:30→20:36)
--- NOTE | 2016-08-12 09:36 | RADRPT ---
PROCEDURE: XR Chest. CLINICAL INDICATION: Assess ventilator patient. TECHNIQUE: Single frontal view of the chest was obtained. COMPARISON: Chest x-ray 08/11/2016. FINDINGS: An NG tube is positioned distal to the GE junction. Monitoring electrodes are draped across the maye st. PICC line catheter enters the left arm with its tip in the right atrial superior vena cava junc tion area. The endotracheal tube is well-positioned 4.8 cm superior to the shelley. The bony elemen ts are normal. The left ventricle is enlarged. The cardiomediastinal silhouette and hilar structur es are normal. The pulmonary vasculature is increase. There are atherosclerotic calcifications in t he aortic arch. There are bilateral perihilar and basilar infiltrates which are more confluent in th e left lower lobe silhouetting the left diaphragm. There are plate-like densities in the right lowe r lung field. The left pleural effusion is not excluded. The right costophrenic angle is normal. IMPRESSION: 1. Satisfactory positioning of the endotracheal tube and nasogastric tube. 2. Worsening perihilar and basilar infiltrates with plate-like atelectasis in the right lower lobe. 3. Left ventricular enlargement. RPTAT:AAJJ Physician Rubén Date Time Electronically viewed and signed by Michael Saba Physician on 08/12/2016 09:35 HOLLAND/
--- NOTE | 2016-08-12 10:30 | PN ---
Date/Time of Note Date/Time of Note DATE: 08/12/16 TIME: 10:29 Assessment/Plan VTE Prophylaxis VTE Prophylaxis Intervention: SCD's Assessment/Plan Chief Complaint/Hosp Course 1. Status post cardiac arrest with ROSC 2/2 severe metabolic acidosis from #4 2. Acute encephalopathy secondary to #1 [toxic metabolic] 3. Ventilator dependent respiratory failure with probable ARDS and pulmonary edema per pulmonary 4. Severe acute renal failure now on hemodialysis with unknown baseline thought to be secondary to severe ATN 5. Severe Sepsis with septic shock and lactic acidosis on pressors 6. Newly diagnosed Hypothyroidism 7. Chronic Alcohol use and abuse 8. Anemia likely secondary to chronic disease but a component of malnutrition from chronic alcohol abuse 9. Enterocolitis 10. Thrombocytopenia which could be as a result of liver disease, will have to rule out heparin-induced thrombocytopenia 11. Severe fatty liver with Transaminitis and mild hyperbilirubinemia indicating a measure of chronic liver disease vs shock liver 12. Bilateral pneumonia likely aspiration 13. Coagulase neg Staph UTI 14. Hypophosphatemia 15. Steroid-induced hyperglycemia vs type 2 DM requiring low-dose Lantus and NPH 16. Positive stool occult blood on twice daily PPI PLAN: Continue broad-spectrum antibiotics with IV vancomycin and Zosyn, cultures are insignificant at this time Continue to wean pressors Continue hemodialysis per nephrology Continue vent management and weaning, patient may need trach if unable to wean off vent, CPAP trials today Endocrinology managing sugars and thyroid profile Continue serial electrolyte monitoring and replenishment Continue supportive ICU care, palliative care is following Prophylaxis : SCDS / PPI Problems: Subjective 24 Hr Interval Summary Subjective hx not possible: pt non-verbal Exam/Review of Systems Vital Signs Vitals Vital Signs Date Time Temp Pulse Resp B/P Pulse Ox O2 Delivery O2 Flow Rate FiO2 08/12/16 09:00 87 30 138/90 93 Mechanical Ventilator 08/12/16 08:00 40 08/12/16 08:00 97.6 Intake and Output 08/11/16 08/11/16 08/12/16 15:00 23:00 07:00 Intake Total 1344 ml 725 ml 490 ml Output Total 2820 ml 1240 ml 975 ml Balance -1476 ml -515 ml -485 ml Exam Constitutional: non-verbal ENMT: intubated Respiratory: clear to auscultation Cardiovascular: regular rate and rhythm Gastrointestinal: soft, No distended Musculoskeletal: nl extremities to inspection Results Result Diagram: 08/12/16 0325 08/12/16 0325 Results 24 hrs Laboratory Tests Test 08/11/16 14:04 08/11/16 17:46 08/11/16 20:13 08/12/16 00:31 Bedside Glucose 125 104 82 99 Test 08/12/16 03:25 08/12/16 05:38 08/12/16 08:45 White Blood Count 15.4 H Red Blood Count 3.15 L Hemoglobin 10.1 L Hematocrit 29.6 L Mean Corpuscular Volume 94.0 Mean Corpuscular Hemoglobin 32.1 Mean Corpuscular Hemoglobin Concent 34.1 Red Cell Distribution Width 17.7 H Platelet Count 92 L Mean Platelet Volume Neutrophils % 80.2 H Lymphocytes % 8.5 L Monocytes % 5.6 Eosinophils % 0.0 Basophils % 0.1 Nucleated Red Blood Cells % 1.8 H Neutrophils # 12.4 H Lymphocytes # 1.3 Monocytes # 0.9 Eosinophils # 0.0 Basophils # 0.0 Nucleated Red Blood Cells # 0.3 H Sodium Level 141 Potassium Level 3.7 Chloride Level 104 Carbon Dioxide Level 27 Anion Gap 14 Blood Urea Nitrogen 52 H Creatinine 1.79 H Glucose Level 100 Lactic Acid Level 1.1 Calcium Level 10.0 Phosphorus Level 3.7 Magnesium Level 1.9 Bedside Glucose 80 91 Medications Medications Current Medications Lorazepam (Ativan) 0.5 mg Q6H PRN IV ANXIETY Last administered on 08/07/16 23: 23; Admin Dose 0.5 MG; Start 08/01/16 at 03:00 Ondansetron HCl (Zofran Inj) 4 mg Q6H PRN IV NAUSEA AND/OR VOMITING; Start at 03:00 Metoclopramide HCl (Reglan) 10 mg Q6H PRN IV NAUSEA AND/OR VOMITING; Start at 03:00 Acetaminophen (Tylenol Tab) 650 mg Q6H PRN PO PAIN LEVEL 1-3 OR FEVER; Start at 03:00 Acetaminophen (Tylenol Supp) 650 mg Q4H PRN [place] PAIN LEVEL 1-3 OR FEVER; Start 08/01/16 at 06:30 Pantoprazole 40 mg 40 mg BID@,18 IV Last administered on 08/12/16 05:39; Admin Dose 40 MG; Start 08/01/16 at 06:00 Propofol 100 ml @ 3.33 mls/hr Q12H IV Last administered on 08/02/16 09:30; Admin Dose 26.64 MLS/HR; Start 08/01/16 at 09:30 Phenylephrine HCl 40 mg/Dextrose 500 ml @ 0 mls/hr TITRATE IV Last administered on 08/02/16 04:58; Admin Dose 112.5 MLS/HR; Start 08/01/16 at 16:00 Norepinephrine 16 mg/Dextrose 500 ml @ 0 mls/hr TITRATE IV Last administered on 08/06/16 00:10; Admin Dose 30 MLS/HR; Start 08/01/16 at 16:00 Vasopressin 60 unit/Dextrose 60 ml @ 1.2 mls/hr Q12H IV Last administered on 03:55; Admin Dose 2.4 MLS/HR; Start 08/01/16 at 17:30 Epinephrine/ Sodium Chloride (EPINEPHrine/NS) 250 ml @ 3.75 mls/hr TITRATE IV Last administered on 08/01/16 18:50; Admin Dose 3.75 MLS/HR; Start 08/01/16 at 19:30 Eye Lubricant (Artificial Tears Oph) 2 drop QID BOTH EYES Last administered on 08/12/16 08:46; Admin Dose 2 DROP; Start 08/02/16 at 09:00 Insulin Aspart (Novolog Insulin Pen) NOVOLOG *MODERATE* ALGORI... Q4 SC Last administered on 08/06/16 05:48; Admin Dose 2 UNIT; Start 08/02/16 at 09:00 Miscellaneous Information 1 ea NOTE XX ; Start 08/02/16 at 09:00 Glucose (Glutose) 15 gm Q15M PRN PO DECREASED GLUCOSE; Start 08/02/16 at 09:00 Glucose (Glutose) 22.5 gm Q15M PRN PO DECREASED GLUCOSE; Start 08/02/16 at 09:00 Dextrose (D50w Syringe) 25 ml Q15M PRN IV DECREASED GLUCOSE Last administered on 08/08/16 08:46; Admin Dose 25 ML; Start 08/02/16 at 09:00 Dextrose (D50w Syringe) 50 ml Q15M PRN IV DECREASED GLUCOSE; Start 08/02/16 at 09:00 Glucagon (Glucagen) 1 mg Q15M PRN IM DECREASED GLUCOSE; Start 08/02/16 at 09:00 Glucose 15 gm 15 gm Q15M PRN BUCCAL DECREASED GLUCOSE; Start 08/02/16 at 09:00 Midazolam HCl 50 ml @ 1 mls/hr TITRATE IV Last administered on 08/12/16 01:23 ; Admin Dose 10 MLS/HR; Start 08/02/16 at 09:30 Fentanyl 100 ml @ 2.5 mls/hr TITRATE IV Last administered on 08/11/16 22:33; Admin Dose 10 MLS/HR; Start 08/02/16 at 09:30 Metronidazole 100 ml @ 100 mls/hr Q8 IVPB Last administered on 08/12/16 06:14 ; Admin Dose 100 MLS/HR; Start 08/03/16 at 10:00 Piperacillin Sod/ Tazobactam Sod 100 ml @ 200 mls/hr Q8 IVPB Last administered on 08/12/16 05:34; Admin Dose 200 MLS/HR; Start 08/03/16 at 14:00 Vancomycin HCl/ Sodium Chloride (Vancocin/NS) 250 ml @ 83.333 mls/ hr Q96H IVPB Last administered on 08/10/16 16:19; Admin Dose 83.333 MLS/HR; Start at 16:00 Levothyroxine Sodium (Synthroid) 125 mcg DAILY@06 NGT Last administered on 08/12 05:39; Admin Dose 125 MCG; Start 08/08/16 at 06:00 Terbinafine HCl (Lamisil) 250 mg BID NGT Last administered on 08/12/16 08:46; Admin Dose 250 MG; Start 08/08/16 at 21:00; Stop 08/15/16 at 20:59 Calcium Carbonate (Ca Carbonate) 1,250 mg Q12 NGT Last administered on 08:46; Admin Dose 1,250 MG; Start 08/11/16 at 09:00 Lidocaine (Xylocaine 1% (Mpf)) 5 ml ONCE SC ; Start 08/11/16 at 11:00; Stop 01/18 at 10:59 IV Flush (NS 10 ml) 10 ml PRN PRN IV FLUSH LINE; Start 6/10/17 at 20:00 SANYA SMILEY Aug 12, 2016 10:30
[2016-08-12] MEDS: FENTAnyl (DRIP) 1000 mcg/100mL 100 ML IV SCH (12:06)
--- NOTE | 2016-08-12 14:35 | CONS ---
Date/Time of Note Date/Time of Note DATE: 08/12/16 TIME: 14:31 Consult Date/Type/Reason Admit Date/Time August 01, 2016 at 00:50 Initial Consult Date 08/01/16 Type of Consultation: Pulm/CCM Ordering Provider: NIKOLE KWON MD, [facility] Subjective Tolerated CPAP for 1 hour, then developed increased RR and HR. Objective Vital Signs Date Time Temp Pulse Resp B/P Pulse Ox O2 Delivery O2 Flow Rate FiO2 08/12/16 12:30 94 30 131/90 99 Mechanical Ventilator 08/12/16 12:00 97.4 08/12/16 11:30 40 Intake and Output 08/11/16 08/11/16 08/12/16 15:00 23:00 07:00 Intake Total 1344 ml 725 ml 490 ml Output Total 2820 ml 1240 ml 975 ml Balance -1476 ml -515 ml -485 ml Exam HEENT: Neck supple; no JVD; no LAD; + ET Tube CVS: RRR, S1 and S2 CHEST: Coarse BS ABD: Distended, NT, + BS EXT: No c/c/ + edema Results/Medications Result Diagram: 08/12/16 0325 08/12/16 0325 Results 24 hrs Laboratory Tests Test 08/11/16 17:46 08/11/16 20:13 08/12/16 00:31 08/12/16 03:25 Bedside Glucose 104 82 99 White Blood Count 15.4 H Red Blood Count 3.15 L Hemoglobin 10.1 L Hematocrit 29.6 L Mean Corpuscular Volume 94.0 Mean Corpuscular Hemoglobin 32.1 Mean Corpuscular Hemoglobin Concent 34.1 Red Cell Distribution Width 17.7 H Platelet Count 92 L Mean Platelet Volume Neutrophils % 80.2 H Lymphocytes % 8.5 L Monocytes % 5.6 Eosinophils % 0.0 Basophils % 0.1 Nucleated Red Blood Cells % 1.8 H Neutrophils # 12.4 H Lymphocytes # 1.3 Monocytes # 0.9 Eosinophils # 0.0 Basophils # 0.0 Nucleated Red Blood Cells # 0.3 H Sodium Level 141 Potassium Level 3.7 Chloride Level 104 Carbon Dioxide Level 27 Anion Gap 14 Blood Urea Nitrogen 52 H Creatinine 1.79 H Glucose Level 100 Lactic Acid Level 1.1 Calcium Level 10.0 Phosphorus Level 3.7 Magnesium Level 1.9 Test 08/12/16 05:38 08/12/16 08:45 08/12/16 12:41 Bedside Glucose 80 91 95 Medications Current Medications Lorazepam (Ativan) 0.5 mg Q6H PRN IV ANXIETY Last administered on 08/07/16 23: 23; Admin Dose 0.5 MG; Start 08/01/16 at 03:00 Ondansetron HCl (Zofran Inj) 4 mg Q6H PRN IV NAUSEA AND/OR VOMITING; Start at 03:00 Metoclopramide HCl (Reglan) 10 mg Q6H PRN IV NAUSEA AND/OR VOMITING; Start at 03:00 Acetaminophen (Tylenol Tab) 650 mg Q6H PRN PO PAIN LEVEL 1-3 OR FEVER; Start at 03:00 Acetaminophen (Tylenol Supp) 650 mg Q4H PRN [place] PAIN LEVEL 1-3 OR FEVER; Start 08/01/16 at 06:30 Pantoprazole 40 mg 40 mg BID@06,18 IV Last administered on 08/12/16 05:39; Admin Dose 40 MG; Start 08/01/16 at 06:00 Propofol 100 ml @ 3.33 mls/hr Q12H IV Last administered on 08/02/16 09:30; Admin Dose 26.64 MLS/HR; Start 08/01/16 at 09:30 Phenylephrine HCl 40 mg/Dextrose 500 ml @ 0 mls/hr TITRATE IV Last administered on 08/02/16 04:58; Admin Dose 112.5 MLS/HR; Start 08/01/16 at 16:00 Norepinephrine 16 mg/Dextrose 500 ml @ 0 mls/hr TITRATE IV Last administered on 08/06/16 00:10; Admin Dose 30 MLS/HR; Start 08/01/16 at 16:00 Vasopressin 60 unit/Dextrose 60 ml @ 1.2 mls/hr Q12H IV Last administered on 03:55; Admin Dose 2.4 MLS/HR; Start 08/01/16 at 17:30 Epinephrine/ Sodium Chloride (EPINEPHrine/NS) 250 ml @ 3.75 mls/hr TITRATE IV Last administered on 08/01/16 18:50; Admin Dose 3.75 MLS/HR; Start 08/01/16 at 19:30 Eye Lubricant (Artificial Tears Oph) 2 drop QID BOTH EYES Last administered on 08/12/16 13:49; Admin Dose 2 DROP; Start 08/02/16 at 09:00 Insulin Aspart (Novolog Insulin Pen) NOVOLOG *MODERATE* ALGORI... Q4 SC Last administered on 08/06/16 05:48; Admin Dose 2 UNIT; Start 08/02/16 at 09:00 Miscellaneous Information 1 ea NOTE XX ; Start 08/02/16 at 09:00 Glucose (Glutose) 15 gm Q15M PRN PO DECREASED GLUCOSE; Start 08/02/16 at 09:00 Glucose (Glutose) 22.5 gm Q15M PRN PO DECREASED GLUCOSE; Start 08/02/16 at 09:00 Dextrose (D50w Syringe) 25 ml Q15M PRN IV DECREASED GLUCOSE Last administered on 08/08/16 08:46; Admin Dose 25 ML; Start 08/02/16 at 09:00 Dextrose (D50w Syringe) 50 ml Q15M PRN IV DECREASED GLUCOSE; Start 08/02/16 at 09:00 Glucagon (Glucagen) 1 mg Q15M PRN IM DECREASED GLUCOSE; Start 08/02/16 at 09:00 Glucose 15 gm 15 gm Q15M PRN BUCCAL DECREASED GLUCOSE; Start 08/02/16 at 09:00 Midazolam HCl 50 ml @ 1 mls/hr TITRATE IV Last administered on 08/12/16 12:06 ; Admin Dose 5 MLS/HR; Start 08/02/16 at 09:30 Fentanyl 100 ml @ 2.5 mls/hr TITRATE IV Last administered on 08/12/16 12:06; Admin Dose 5 MLS/HR; Start 08/02/16 at 09:30 Metronidazole 100 ml @ 100 mls/hr Q8 IVPB Last administered on 08/12/16 13:49 ; Admin Dose 100 MLS/HR; Start 08/03/16 at 10:00 Piperacillin Sod/ Tazobactam Sod 100 ml @ 200 mls/hr Q8 IVPB Last administered on 08/12/16 13:49; Admin Dose 200 MLS/HR; Start 08/03/16 at 14:00 Vancomycin HCl/ Sodium Chloride (Vancocin/NS) 250 ml @ 83.333 mls/ hr Q96H IVPB Last administered on 08/10/16 16:19; Admin Dose 83.333 MLS/HR; Start at 16:00 Levothyroxine Sodium (Synthroid) 125 mcg DAILY@06 NGT Last administered on 08/12 05:39; Admin Dose 125 MCG; Start 08/08/16 at 06:00 Terbinafine HCl (Lamisil) 250 mg BID NGT Last administered on 08/12/16 08:46; Admin Dose 250 MG; Start 08/08/16 at 21:00; Stop 08/15/16 at 20:59 Calcium Carbonate (Ca Carbonate) 1,250 mg Q12 NGT Last administered on 08:46; Admin Dose 1,250 MG; Start 08/11/16 at 09:00 IV Flush (NS 10 ml) 10 ml PRN PRN IV FLUSH LINE; Start 08/11/16 at 20:00 Assessment/Plan Additional Assessment/Plan IMPRESSION: 1. Acute renal failure 2. Respiratory failure/Hypoxemic 3. Severe hypothyroidism 4. History of ETOH 5. Status post septic shock requiring vasopressors. 6. Anemia 7. Insulin-dependent diabetes 8. FEN RECS: 1 Change vent setting to VC+ rate 24; PEEP 8; FiO2 40; Vt 550 2. Retry CPAP/PS in am 3. D/C versed gtt 4. Propofol gtt and fentanyl gtt with sedation vacations daily 5. Maintain negative I/O 35 min cc time RODRIGUE ASTUDILLO MD Aug 12, 2016 14:35
--- NOTE | 2016-08-12 20:19 | CONS ---
Date/Time of Note Date/Time of Note DATE: 08/12/16 TIME: 20:15 Assessment/Plan Assessment/Plan Chief Complaint/Hosp Course SUBJECTIVE: No events. Failed weaning. NAD, no fevers. INDWELLINGS: Endotracheal tube, PICC, right femoral Deni catheter, NGT, Silver. ANTIMICROBIALS: 1. Vancomycin. 2. Zosyn. 3. Flagyl. MICROBIOLOGY: Blood cultures have been negative. Urine culture negative. Stool for C. diff negative. PHYSICAL EXAMINATION: GENERAL: Chronically ill-appearing, middle-aged man who is intubated and sedated, in no distress. HEENT: Head atraumatic, normocephalic. Sclerae anicteric. Buccal mucosa dry. NECK: Supple, trachea midline. CHEST: Rise symmetrical. Breath sounds diminished to bases. HEART: S1, S2. ABDOMEN: Distended, soft. Bowel tones hypoactive. EXTREMITIES: Bilateral edema. ASSESSMENT: 1. S/p sepsis with shock 2. Acute respiratory failure. 3. Acute kidney injury, started on hemodialysis. 4. Status post cardiopulmonary arrest. 5. Encephalopathy. 6. History of ETOH abuse. 7. Diarrhea===> emp Flagyl 8. Leukocytosis===> resolving, off steroids PLAN: The patient remains stable, completing abx, follow recommendations of consultants. DW staff Problems: Consultation Date/Type/Reason Admit Date/Time August 01, 2016 at 00:50 Initial Consult Date 08/01/16 Type of Consultation: ID Referring Provider: NIKOLE KWON MD, [facility] Exam/Review of Systems Vital Signs Vitals Vital Signs Date Time Temp Pulse Resp B/P Pulse Ox O2 Delivery O2 Flow Rate FiO2 08/12/16 19:00 87 24 108/70 100 Mechanical Ventilator 08/12/16 17:40 40 08/12/16 16:00 97.8 Intake and Output 08/11/16 08/11/16 08/12/16 15:00 23:00 07:00 Intake Total 1344 ml 725 ml 490 ml Output Total 2820 ml 1240 ml 975 ml Balance -1476 ml -515 ml -485 ml Results Result Diagram: 08/12/16 0325 08/12/16 0325 Results 24 hrs Laboratory Tests Test 08/12/16 00:31 08/12/16 03:25 08/12/16 05:38 08/12/16 08:45 Bedside Glucose 99 80 91 White Blood Count 15.4 H Red Blood Count 3.15 L Hemoglobin 10.1 L Hematocrit 29.6 L Mean Corpuscular Volume 94.0 Mean Corpuscular Hemoglobin 32.1 Mean Corpuscular Hemoglobin Concent 34.1 Red Cell Distribution Width 17.7 H Platelet Count 92 L Mean Platelet Volume Neutrophils % 80.2 H Lymphocytes % 8.5 L Monocytes % 5.6 Eosinophils % 0.0 Basophils % 0.1 Nucleated Red Blood Cells % 1.8 H Neutrophils # 12.4 H Lymphocytes # 1.3 Monocytes # 0.9 Eosinophils # 0.0 Basophils # 0.0 Nucleated Red Blood Cells # 0.3 H Sodium Level 141 Potassium Level 3.7 Chloride Level 104 Carbon Dioxide Level 27 Anion Gap 14 Blood Urea Nitrogen 52 H Creatinine 1.79 H Glucose Level 100 Lactic Acid Level 1.1 Calcium Level 10.0 Phosphorus Level 3.7 Magnesium Level 1.9 Test 08/12/16 12:41 08/12/16 17:54 Bedside Glucose 95 105 Medications Medications Current Medications Lorazepam (Ativan) 0.5 mg Q6H PRN IV ANXIETY Last administered on 08/07/16 23: 23; Admin Dose 0.5 MG; Start 08/01/16 at 03:00 Ondansetron HCl (Zofran Inj) 4 mg Q6H PRN IV NAUSEA AND/OR VOMITING; Start at 03:00 Metoclopramide HCl (Reglan) 10 mg Q6H PRN IV NAUSEA AND/OR VOMITING; Start at 03:00 Acetaminophen (Tylenol Tab) 650 mg Q6H PRN PO PAIN LEVEL 1-3 OR FEVER; Start at 03:00 Acetaminophen (Tylenol Supp) 650 mg Q4H PRN [place] PAIN LEVEL 1-3 OR FEVER; Start 08/01/16 at 06:30 Pantoprazole 40 mg 40 mg BID@06,18 IV Last administered on 08/12/16 17:54; Admin Dose 40 MG; Start 08/01/16 at 06:00 Propofol 100 ml @ 3.33 mls/hr Q12H IV Last administered on 08/12/16 14:44; Admin Dose 3.33 MLS/HR; Start 08/01/16 at 09:30 Phenylephrine HCl 40 mg/Dextrose 500 ml @ 0 mls/hr TITRATE IV Last administered on 08/02/16 04:58; Admin Dose 112.5 MLS/HR; Start 08/01/16 at 16:00 Norepinephrine 16 mg/Dextrose 500 ml @ 0 mls/hr TITRATE IV Last administered on 08/06/16 00:10; Admin Dose 30 MLS/HR; Start 08/01/16 at 16:00 Vasopressin 60 unit/Dextrose 60 ml @ 1.2 mls/hr Q12H IV Last administered on 03:55; Admin Dose 2.4 MLS/HR; Start 08/01/16 at 17:30 Epinephrine/ Sodium Chloride (EPINEPHrine/NS) 250 ml @ 3.75 mls/hr TITRATE IV Last administered on 08/01/16 18:50; Admin Dose 3.75 MLS/HR; Start 08/01/16 at 19:30 Eye Lubricant (Artificial Tears Oph) 2 drop QID BOTH EYES Last administered on 08/12/16 17:54; Admin Dose 2 DROP; Start 08/02/16 at 09:00 Insulin Aspart (Novolog Insulin Pen) NOVOLOG *MODERATE* ALGORI... Q4 SC Last administered on 08/06/16 05:48; Admin Dose 2 UNIT; Start 08/02/16 at 09:00 Miscellaneous Information 1 ea NOTE XX ; Start 08/02/16 at 09:00 Glucose (Glutose) 15 gm Q15M PRN PO DECREASED GLUCOSE; Start 08/02/16 at 09:00 Glucose (Glutose) 22.5 gm Q15M PRN PO DECREASED GLUCOSE; Start 08/02/16 at 09:00 Dextrose (D50w Syringe) 25 ml Q15M PRN IV DECREASED GLUCOSE Last administered on 08/08/16 08:46; Admin Dose 25 ML; Start 08/02/16 at 09:00 Dextrose (D50w Syringe) 50 ml Q15M PRN IV DECREASED GLUCOSE; Start 08/02/16 at 09:00 Glucagon (Glucagen) 1 mg Q15M PRN IM DECREASED GLUCOSE; Start 08/02/16 at 09:00 Glucose 15 gm 15 gm Q15M PRN BUCCAL DECREASED GLUCOSE; Start 08/02/16 at 09:00 Midazolam HCl 50 ml @ 1 mls/hr TITRATE IV Last administered on 08/12/16 12:06 ; Admin Dose 5 MLS/HR; Start 08/02/16 at 09:30 Fentanyl 100 ml @ 2.5 mls/hr TITRATE IV Last administered on 08/12/16 12:06; Admin Dose 5 MLS/HR; Start 08/02/16 at 09:30 Metronidazole 100 ml @ 100 mls/hr Q8 IVPB Last administered on 08/12/16 13:49 ; Admin Dose 100 MLS/HR; Start 08/03/16 at 10:00 Piperacillin Sod/ Tazobactam Sod 100 ml @ 200 mls/hr Q8 IVPB Last administered on 08/12/16 13:49; Admin Dose 200 MLS/HR; Start 08/03/16 at 14:00 Vancomycin HCl/ Sodium Chloride (Vancocin/NS) 250 ml @ 83.333 mls/ hr Q96H IVPB Last administered on 08/10/16 16:19; Admin Dose 83.333 MLS/HR; Start at 16:00 Levothyroxine Sodium (Synthroid) 125 mcg DAILY@06 NGT Last administered on 08/12 05:39; Admin Dose 125 MCG; Start 08/08/16 at 06:00 Terbinafine HCl (Lamisil) 250 mg BID NGT Last administered on 08/12/16 08:46; Admin Dose 250 MG; Start 08/08/16 at 21:00; Stop 08/15/16 at 20:59 Calcium Carbonate (Ca Carbonate) 1,250 mg Q12 NGT Last administered on 08:46; Admin Dose 1,250 MG; Start 08/11/16 at 09:00 IV Flush (NS 10 ml) 10 ml PRN PRN IV FLUSH LINE; Start 08/11/16 at 20:00 RADHA ESCALANTE NP Aug 12, 2016 20:19
[2016-08-13] VITALS (46 sets, daily range): BP systolic 110–174; BP diastolic 66–95; PULSE 74–94; RESP 18–40
[2016-08-13] MEDS: INSULIN ASPART [NOVOLOG] 3 ML PEN SC SCH ×5 (01:00→21:08)
[2016-08-13] MEDS: hydrALAzine 20 MG INJ IV PRN (03:16)
[2016-08-13 04:53] LABS: ADD SCAN DIFF NO
[2016-08-13 05:09] LABS: ABNORMAL IP MESSAGE 1; BASOPHILS % 0.1 % (0.0-2.0); EOSINOPHILS % 0.3 % (0.0-7.0); HEMOGLOBIN 9.4 g/dl (14.0-18.0); LYMPHOCYTES # 1.4 10^3/ul (0.8-2.9); LYMPHOCYTES % 9.5 % (15.0-51.0); MEAN CORPUSCULAR HEMOGLOBIN 32.2 pg (29.0-33.0); MEAN CORPUSCULAR HGB CONC 33.6 g/dl (32.0-37.0); MEAN CORPUSCULAR VOLUME 95.9 fl (82.0-101.0); MONOCYTE # 0.9 10^3/ul (0.3-0.9); MONOCYTES % 6.1 % (0.0-11.0); NEUTROPHIL # 12.2 10^3/ul (1.6-7.5); NEUTROPHILS % 81.7 % (39.0-77.0); NUCLEATED RED BLOOD CELLS # 0.1 10^3/ul (0.0-0.0); NUCLEATED RED BLOOD CELLS% 0.9 /100WBC (0.0-0.0); PLATELET COUNT 101 10^3/UL (140-415); RED BLOOD COUNT 2.92 10^6/ul (4.70-6.10); RED CELL DISTRIBUTION WIDTH 17.9 % (11.5-14.5); WHITE BLOOD COUNT 14.9 10^3/ul (4.8-10.8)
[2016-08-13 05:16] LABS: MEAN PLATELET VOLUME 14.2 fl (7.4-10.4)
[2016-08-13 05:17] LABS: CALCIUM 9.1 mg/dl (8.4-10.2); CREATININE 1.97 mg/dl (0.61-1.24); PHOSPHORUS 5.1 mg/dl (2.5-4.9); POTASSIUM 3.6 mmol/L (3.5-5.1)
[2016-08-13] MEDS: PROPOFOL 100 ML IV SCH ×4 (05:23→22:29)
[2016-08-13] MEDS: VASOPRESSIN 60 UNIT in DEXTROSE 5% 57 ML IV SCH ×2 (05:30→17:11)
[2016-08-13] MEDS: PIPER-TAZO 3.375 GM IV (PMX) 100 ML IVPB SCH (05:31)
[2016-08-13] MEDS: LEVOTHYROXINE 125 MCG TAB NGT SCH (05:34)
[2016-08-13] MEDS: FUROSEMIDE 40 MG INJ IV SCH ×2 (05:34→17:32)
[2016-08-13] MEDS: PANTOPRAZOLE 40 MG INJ IV SCH ×2 (05:34→17:29)
[2016-08-13] MEDS: FENTAnyl (DRIP) 1000 mcg/100mL 100 ML IV SCH (06:08)
[2016-08-13] MEDS: metroNIDAZOLE 500 MG/NS (PMX) 100 ML IVPB SCH (06:08)
--- NOTE | 2016-08-13 07:31 | CONS ---
Date/Time of Note Date/Time of Note DATE: 08/13/16 TIME: 07:29 Assessment/Plan Assessment/Plan Chief Complaint/Hosp Course PEA cardiac arrest: secondary to severe metabolic acidosis. No VT/VF or EKG changes to suggest primary cardiac etiology. Trops ok, EF preserved. Acute respiratory failure: intubated during code.Likely ARDS and some component of fluid overload Currently being weaned Severe metabolic acidosis: likely was the culprit for the arrest. Resolved Shock: ?septic.Off pressors Acute renal failure: unclear etiology now on HD. Good UOP Hypoglycemia Hypothyroidism Diarrhea/n/v/colitis HTN: now elevated -start amlodipine 5mg -vent management per pulm -HD per nephro Problems: Consultation Date/Type/Reason Admit Date/Time August 01, 2016 at 00:50 Initial Consult Date 08/01/16 Type of Consultation: Cardiology Referring Provider: NIKOLE KWON MD, [facility] 24 HR Interval Summary Free Text/Dictation BP has been high overnight. Failed weaning yesterday. Will try again this am per notes. Exam/Review of Systems Vital Signs Vitals Vital Signs Date Time Temp Pulse Resp B/P Pulse Ox O2 Delivery O2 Flow Rate FiO2 08/13/16 06:00 87 24 125/69 100 Mechanical Ventilator 08/13/16 05:21 35 08/13/16 04:00 97.5 Intake and Output 08/12/16 08/12/16 08/13/16 15:00 23:00 07:00 Intake Total 641.5 ml 648.46 ml 441.60 ml Output Total 1180 ml 610 ml 590 ml Balance -538.5 ml 38.46 ml -148.40 ml Exam Constitutional: No alert Head: atraumatic, normocephalic Neck: No jvd (difficult to examine ) Respiratory: diminished breath sounds, No clear to auscultation Cardiovascular: edema (1+), regular rate and rhythm Gastrointestinal: non-tender, soft, No distended Neurological: No nl mental status Results Result Diagram: 08/13/16 0350 08/13/16 0350 Results 24 hrs Laboratory Tests Test 08/12/16 08:45 08/12/16 12:41 08/12/16 17:54 08/12/16 20:33 Bedside Glucose 91 95 105 93 Test 08/13/16 00:44 08/13/16 03:50 08/13/16 05:22 08/13/16 07:23 Bedside Glucose 90 102 104 White Blood Count 14.9 H Red Blood Count 2.92 L Hemoglobin 9.4 L Hematocrit 28.0 L Mean Corpuscular Volume 95.9 Mean Corpuscular Hemoglobin 32.2 Mean Corpuscular Hemoglobin Concent 33.6 Red Cell Distribution Width 17.9 H Platelet Count 101 L Mean Platelet Volume 14.2 #H Neutrophils % 81.7 H Lymphocytes % 9.5 L Monocytes % 6.1 Eosinophils % 0.3 Basophils % 0.1 Nucleated Red Blood Cells % 0.9 H Neutrophils # 12.2 H Lymphocytes # 1.4 Monocytes # 0.9 Eosinophils # 0.0 Basophils # 0.0 Nucleated Red Blood Cells # 0.1 H Sodium Level 139 Potassium Level 3.6 Chloride Level 105 Carbon Dioxide Level 28 Anion Gap 10 Blood Urea Nitrogen 57 H Creatinine 1.97 H Glucose Level 103 Calcium Level 9.1 Phosphorus Level 5.1 H Magnesium Level 2.0 Medications Medications Current Medications Lorazepam (Ativan) 0.5 mg Q6H PRN IV ANXIETY Last administered on 08/07/16 23: 23; Admin Dose 0.5 MG; Start 08/01/16 at 03:00 Ondansetron HCl (Zofran Inj) 4 mg Q6H PRN IV NAUSEA AND/OR VOMITING; Start at 03:00 Metoclopramide HCl (Reglan) 10 mg Q6H PRN IV NAUSEA AND/OR VOMITING; Start at 03:00 Acetaminophen (Tylenol Tab) 650 mg Q6H PRN PO PAIN LEVEL 1-3 OR FEVER; Start at 03:00 Acetaminophen (Tylenol Supp) 650 mg Q4H PRN [place] PAIN LEVEL 1-3 OR FEVER; Start 08/01/16 at 06:30 Pantoprazole 40 mg 40 mg BID@06,18 IV Last administered on 08/13/16 05:34; Admin Dose 40 MG; Start 08/01/16 at 06:00 Propofol 100 ml @ 3.33 mls/hr Q12H IV Last administered on 08/13/16 05:23; Admin Dose 15.984 MLS/HR; Start 08/01/16 at 09:30 Phenylephrine HCl 40 mg/Dextrose 500 ml @ 0 mls/hr TITRATE IV Last administered on 08/02/16 04:58; Admin Dose 112.5 MLS/HR; Start 08/01/16 at 16:00 Norepinephrine 16 mg/Dextrose 500 ml @ 0 mls/hr TITRATE IV Last administered on 08/06/16 00:10; Admin Dose 30 MLS/HR; Start 08/01/16 at 16:00 Vasopressin 60 unit/Dextrose 60 ml @ 1.2 mls/hr Q12H IV Last administered on 03:55; Admin Dose 2.4 MLS/HR; Start 08/01/16 at 17:30 Epinephrine/ Sodium Chloride (EPINEPHrine/NS) 250 ml @ 3.75 mls/hr TITRATE IV Last administered on 08/01/16 18:50; Admin Dose 3.75 MLS/HR; Start 08/01/16 at 19:30 Eye Lubricant (Artificial Tears Oph) 2 drop QID BOTH EYES Last administered on 08/12/16 20:29; Admin Dose 2 DROP; Start 08/02/16 at 09:00 Insulin Aspart (Novolog Insulin Pen) NOVOLOG *MODERATE* ALGORI... Q4 SC Last administered on 08/06/16 05:48; Admin Dose 2 UNIT; Start 08/02/16 at 09:00 Miscellaneous Information 1 ea NOTE XX ; Start 08/02/16 at 09:00 Glucose (Glutose) 15 gm Q15M PRN PO DECREASED GLUCOSE; Start 08/02/16 at 09:00 Glucose (Glutose) 22.5 gm Q15M PRN PO DECREASED GLUCOSE; Start 08/02/16 at 09:00 Dextrose (D50w Syringe) 25 ml Q15M PRN IV DECREASED GLUCOSE Last administered on 08/08/16 08:46; Admin Dose 25 ML; Start 08/02/16 at 09:00 Dextrose (D50w Syringe) 50 ml Q15M PRN IV DECREASED GLUCOSE; Start 08/02/16 at 09:00 Glucagon (Glucagen) 1 mg Q15M PRN IM DECREASED GLUCOSE; Start 08/02/16 at 09:00 Glucose 15 gm 15 gm Q15M PRN BUCCAL DECREASED GLUCOSE; Start 08/02/16 at 09:00 Midazolam HCl 50 ml @ 1 mls/hr TITRATE IV Last administered on 08/12/16 12:06 ; Admin Dose 5 MLS/HR; Start 08/02/16 at 09:30 Fentanyl 100 ml @ 2.5 mls/hr TITRATE IV Last administered on 08/13/16 06:08; Admin Dose 5 MLS/HR; Start 08/02/16 at 09:30 Metronidazole 100 ml @ 100 mls/hr Q8 IVPB Last administered on 08/13/16 06:08 ; Admin Dose 100 MLS/HR; Start 08/03/16 at 10:00 Piperacillin Sod/ Tazobactam Sod 100 ml @ 200 mls/hr Q8 IVPB Last administered on 08/13/16 05:31; Admin Dose 200 MLS/HR; Start 08/03/16 at 14:00 Vancomycin HCl/ Sodium Chloride (Vancocin/NS) 250 ml @ 83.333 mls/ hr Q96H IVPB Last administered on 08/10/16 16:19; Admin Dose 83.333 MLS/HR; Start at 16:00 Levothyroxine Sodium (Synthroid) 125 mcg DAILY@06 NGT Last administered on 08/13 05:34; Admin Dose 125 MCG; Start 08/08/16 at 06:00 Terbinafine HCl (Lamisil) 250 mg BID NGT Last administered on 08/12/16 20:29; Admin Dose 250 MG; Start 08/08/16 at 21:00; Stop 08/15/16 at 20:59 Calcium Carbonate (Ca Carbonate) 1,250 mg Q12 NGT Last administered on 20:29; Admin Dose 1,250 MG; Start 08/11/16 at 09:00 IV Flush (NS 10 ml) 10 ml PRN PRN IV FLUSH LINE; Start 08/11/16 at 20:00 Hydralazine HCl (Apresoline) 10 mg Q4H PRN IV SBP >160 Last administered on 03:16; Admin Dose 10 MG; Start 08/13/16 at 03:30 Amlodipine Besylate (Norvasc) 5 mg DAILY PO ; Start 08/13/16 at 09:00 SEPIDEH HAN Aug 13, 2016 07:31
[2016-08-13 07:36] LABS: AADO2 Arterial 116.7 mmHg (7.0-24.0); Allen Test ACCEPTAB; Arterial Base Excess 2.7 mmol/L (-3.0-3); Arterial COHb 0 % (0.0-3.0); Arterial Fraction of Oxyhgb 95.5 % (93.0-99.0); Arterial HCO3 26.5 mmol/L (22.0-26.0); Arterial MetHb 0.4 % (0.0-1.5); Arterial Total Hemglobin 10.6 g/dl (12.0-18.0); MODE VENT - AC
[2016-08-13] MEDS: TERBINAFINE 250 MG TAB NGT SCH ×2 (08:04→21:06)
[2016-08-13] MEDS: CA CARBONATE (250 MG/ML) 5ML CUP NGT SCH ×2 (08:04→21:06)
[2016-08-13] MEDS: ARTIFICIAL TEARS 15 ML OPH BOTH EYES SCH ×4 (08:05→21:06)
[2016-08-13] MEDS: AMLODIPINE 5 MG TAB PO SCH (08:05)
--- NOTE | 2016-08-13 08:23 | PN ---
DATE: 08/13/2016 SUBJECTIVE: The patient remains critically ill, but stable. The patient has been undergoing weanin g trials. The patient has been able to follow commands off sedation. Urinary output has been adequ ate. No other acute events noted. OBJECTIVE: VITAL SIGNS: Blood pressure 125/69, respirations 24, pulse 86, temperature 97.5. I's and O's 1.7 L in, 2.6 L out. HEENT: Head is normocephalic. Pupils are reactive to light. NECK: Supple. HEART: Regular rate. LUNGS: Show diminished breath sounds at the base. ABDOMEN: Soft, nontender to palpation, no rebound or guarding. EXTREMITIES: Negative for clubbing, cyanosis. Trace edema. DERMATOLOGIC: No rashes. MUSCULOSKELETAL: No joint effusions. NEUROLOGIC: No change in exam. MEDICATIONS: The patient's medications have been reviewed. LABORATORY DATA: Shows white count 14.9, hemoglobin 9.4, hematocrit 28.0, platelet count is 111. S odium 139, potassium 3.6, chloride 105, BUN 57, creatinine 1.97, phosphorus 5.1. IMAGING STUDIES: Reviewed. ASSESSMENT AND PLAN: 1. Nonoliguric acute kidney injury with unknown baseline creatinine. Etiology secondary to acute t ubular acute tubular necrosis due to septic shock. The patient is status post hemodialysis. Last d ialysis was 2 days ago. The patient is showing excellent renal recovery. Plan at this point is to hold hemodialysis. We will continue to monitor renal function closely. Continue supportive care, r enally dose all meds, avoid nephrotoxins. Will monitor electrolytes. 2. Anemia. Continue to monitor H and H levels. Epogen was discontinued. 3. Mineral bone disorder. The patient has mild hyperphosphatemia secondary to acute kidney injury. Continue to observe. No need for phosphate binders. 4. Volume overload secondary to acute kidney injury, congestive heart failure. The patient is clin ically improving. Continue diuretic therapy, monitor I's and O's. 5. Ventilator-dependent respiratory failure. Vent settings have been reviewed. ABG has been revie sat. Continue to monitor. Follow up with pulmonary. 6. Sepsis, status post shock, currently off pressors. Continue current antibiotic regimen. Follow up with infectious disease. Cultures have been reviewed. 7. Acute encephalopathy, etiology is toxic metabolic. The patient's mental status is improving. 8. Dysphagia. Continue tube feeding. 9. Hypothyroidism. Continue Synthroid. 10. Diabetes, continue Accu-Cheks and insulin sliding scale. 11. Enterocolitis continue to monitor. 12. History of ETOH abuse. 13. Status post cardiopulmonary arrest. Dictated By: BALDOMERO TOVAR/CHARLES Conf#: [id number] DID#: [id number]
--- NOTE | 2016-08-13 09:38 | RADRPT ---
PROCEDURE: XR Chest. CLINICAL INDICATION: Respiratory failure TECHNIQUE: An AP view of the chest was obtained. COMPARISON: Chest X-ray dated 08/12/2016 FINDINGS: The endotracheal tube tip is approximately 5.4 cm above the shelley. The tip of the enteric tube ex tends below the left diaphragm. There is a left upper extremity PICC line with tip obscured by over lying monitor leads. There is prominence of the interstitial markings bibasilar interstitial opacities and small left pl eural effusion. No pneumothorax is seen. The cardiomediastinal silhouette is mildly enlarged . C alcifications are seen within the aortic arch. The osseous structures demonstrate senescent changes . IMPRESSION: 1. Findings suggestive of interstitial edema. Lung aeration is improved when compared to the prior examination. 2. Small left pleural effusion with bibasilar interstitial opacities which may also reflect edema, atelectasis, pneumonia. This is also improved from prior examination. 3. Mild cardiomegaly and aortic atherosclerosis. 4. Tubes and lines, as described above. RPTAT: HH .Nicolle Curry MD, MD Date Time Electronically viewed and signed by .Nicolle Curry MD, MD on 08/13/2016 09:38 .G/
--- NOTE | 2016-08-13 09:54 | CONS ---
Date/Time of Note Date/Time of Note DATE: 08/13/16 TIME: 09:52 Consult Date/Type/Reason Admit Date/Time August 01, 2016 at 00:50 Initial Consult Date 08/01/16 Type of Consultation: Pulmonary ICU Ordering Provider: NIKOLE KWON MD, [facility] Subjective Patient awake alert this morning failed CPAP trial 20 minutes into weaning process. Remains hemodynamically stable FiO2 decreased to 35% Objective Vital Signs Date Time Temp Pulse Resp B/P Pulse Ox O2 Delivery O2 Flow Rate FiO2 08/13/16 09:00 35 08/13/16 09:00 94 30 173/94 100 Mechanical Ventilator 08/13/16 07:00 97.7 Intake and Output 08/12/16 08/12/16 08/13/16 14:59 22:59 06:59 Intake Total 615.0 ml 636.64 ml 540.572 ml Output Total 1350 ml 640 ml 640 ml Balance -735.0 ml -3.36 ml -99.428 ml Exam PHYSICAL EXAMINATION GENERAL: Well-nourished well-developed gentleman intubated in ventilation appears comfortable at rest VITAL SIGNS: see below. HEENT: Pupils equal, round, and reactive to light. Tracheostomy site clean and intact. CARDIAC: S1, S2, 1/6 systolic ejection murmur CHEST: Diminished air entry bilaterally. ABDOMEN: Mildly distended. Bowel sounds present no guarding or rebound EXTREMITIES: No cyanosis, clubbing edema +1 NEUROLOGIC: Generalized weakness Results/Medications Result Diagram: 08/13/16 0350 08/13/16 0350 Results 24 hrs Chest x-ray Slowly improving bilateral infiltrates Right lower lobe atelectasis Laboratory Tests Test 08/12/16 12:41 08/12/16 17:54 08/12/16 20:33 08/13/16 00:44 Bedside Glucose 95 105 93 90 Test 08/13/16 03:50 08/13/16 05:22 08/13/16 07:23 08/13/16 09:00 White Blood Count 14.9 H Red Blood Count 2.92 L Hemoglobin 9.4 L Hematocrit 28.0 L Mean Corpuscular Volume 95.9 Mean Corpuscular Hemoglobin 32.2 Mean Corpuscular Hemoglobin Concent 33.6 Red Cell Distribution Width 17.9 H Platelet Count 101 L Mean Platelet Volume 14.2 #H Neutrophils % 81.7 H Lymphocytes % 9.5 L Monocytes % 6.1 Eosinophils % 0.3 Basophils % 0.1 Nucleated Red Blood Cells % 0.9 H Neutrophils # 12.2 H Lymphocytes # 1.4 Monocytes # 0.9 Eosinophils # 0.0 Basophils # 0.0 Nucleated Red Blood Cells # 0.1 H Sodium Level 139 Potassium Level 3.6 Chloride Level 105 Carbon Dioxide Level 28 Anion Gap 10 Blood Urea Nitrogen 57 H Creatinine 1.97 H Glucose Level 103 Calcium Level 9.1 Phosphorus Level 5.1 H Magnesium Level 2.0 Bedside Glucose 102 104 Blood Gas Specimen Source Blood arterial Arterial Blood Date Drawn 08/13/2016 7:20:17 AM Arterial Blood pH (Temp corrected) 7.464 H Arterial Blood pCO2 (Temp correct) 37.8 Arterial Blood pO2 (Temp corrected) 88.9 Arterial Blood HCO3 26.5 H Arterial Blood Base Excess 2.7 Arterial Blood Oxygen Saturation 95.9 Stanley Test ACCEPTAB Arterial Blood Gas Puncture Site Left Radial Arterial Blood Carboxyhemoglobin 0 Arterial Blood Methemoglobin 0.4 Blood Gas A-a O2 Differential 116.7 H Oxyhemoglobin Percent 95.5 Total Hemoglobin 10.6 L Blood Gas Temperature 37.0 Blood Gas Respiration Rate 24.0 Blood Gas Actual Respiration Rate 24 Blood Gas Modality VENT - AC FiO2 35.0 Blood Gas Tidal Volume 500.0 Blood Gas Low PEEP Setting 8.0 Blood Gas Notified Whom JLD Blood Gas Notified Time 08/13/2016 7:36:06 AM Medications Current Medications Lorazepam (Ativan) 0.5 mg Q6H PRN IV ANXIETY Last administered on 08/07/16t 23: 23; Admin Dose 0.5 MG; Start 08/01/16 at 03:00 Ondansetron HCl (Zofran Inj) 4 mg Q6H PRN IV NAUSEA AND/OR VOMITING; Start at 03:00 Metoclopramide HCl (Reglan) 10 mg Q6H PRN IV NAUSEA AND/OR VOMITING; Start at 03:00 Acetaminophen (Tylenol Tab) 650 mg Q6H PRN PO PAIN LEVEL 1-3 OR FEVER; Start at 03:00 Acetaminophen (Tylenol Supp) 650 mg Q4H PRN [place] PAIN LEVEL 1-3 OR FEVER; Start 08/01/16 at 06:30 Pantoprazole 40 mg 40 mg BID@06,18 IV Last administered on 08/13/16 05:34; Admin Dose 40 MG; Start 08/01/16 at 06:00 Propofol 100 ml @ 3.33 mls/hr Q12H IV Last administered on 08/13/16 05:23; Admin Dose 15.984 MLS/HR; Start 08/01/16 at 09:30 Phenylephrine HCl 40 mg/Dextrose 500 ml @ 0 mls/hr TITRATE IV Last administered on 08/02/16 04:58; Admin Dose 112.5 MLS/HR; Start 08/01/16 at 16:00 Norepinephrine 16 mg/Dextrose 500 ml @ 0 mls/hr TITRATE IV Last administered on 08/06/16 00:10; Admin Dose 30 MLS/HR; Start 08/01/16 at 16:00 Vasopressin 60 unit/Dextrose 60 ml @ 1.2 mls/hr Q12H IV Last administered on 03:55; Admin Dose 2.4 MLS/HR; Start 08/01/16 at 17:30 Epinephrine/ Sodium Chloride (EPINEPHrine/NS) 250 ml @ 3.75 mls/hr TITRATE IV Last administered on 08/01/16 18:50; Admin Dose 3.75 MLS/HR; Start 08/01/16 at 19:30 Eye Lubricant (Artificial Tears Oph) 2 drop QID BOTH EYES Last administered on 08/13/16 08:05; Admin Dose 2 DROP; Start 08/02/16 at 09:00 Insulin Aspart (Novolog Insulin Pen) NOVOLOG *MODERATE* ALGORI... Q4 SC Last administered on 08/06/16 05:48; Admin Dose 2 UNIT; Start 08/02/16 at 09:00 Miscellaneous Information 1 ea NOTE XX ; Start 08/02/16 at 09:00 Glucose (Glutose) 15 gm Q15M PRN PO DECREASED GLUCOSE; Start 08/02/16 at 09:00 Glucose (Glutose) 22.5 gm Q15M PRN PO DECREASED GLUCOSE; Start 08/02/16 at 09:00 Dextrose (D50w Syringe) 25 ml Q15M PRN IV DECREASED GLUCOSE Last administered on 08/08/16 08:46; Admin Dose 25 ML; Start 08/02/16 at 09:00 Dextrose (D50w Syringe) 50 ml Q15M PRN IV DECREASED GLUCOSE; Start 08/02/16 at 09:00 Glucagon (Glucagen) 1 mg Q15M PRN IM DECREASED GLUCOSE; Start 08/02/16 at 09:00 Glucose 15 gm 15 gm Q15M PRN BUCCAL DECREASED GLUCOSE; Start 08/02/16 at 09:00 Midazolam HCl 50 ml @ 1 mls/hr TITRATE IV Last administered on 08/12/16 12:06 ; Admin Dose 5 MLS/HR; Start 08/02/16 at 09:30 Fentanyl 100 ml @ 2.5 mls/hr TITRATE IV Last administered on 08/13/16 06:08; Admin Dose 5 MLS/HR; Start 08/02/16 at 09:30 Metronidazole 100 ml @ 100 mls/hr Q8 IVPB Last administered on 08/13/16 06:08 ; Admin Dose 100 MLS/HR; Start 08/03/16 at 10:00 Piperacillin Sod/ Tazobactam Sod 100 ml @ 200 mls/hr Q8 IVPB Last administered on 08/13/16 05:31; Admin Dose 200 MLS/HR; Start 08/03/16 at 14:00 Vancomycin HCl/ Sodium Chloride (Vancocin/NS) 250 ml @ 83.333 mls/ hr Q96H IVPB Last administered on 08/10/16 16:19; Admin Dose 83.333 MLS/HR; Start at 16:00 Levothyroxine Sodium (Synthroid) 125 mcg DAILY@06 NGT Last administered on 08/13 05:34; Admin Dose 125 MCG; Start 08/08/16 at 06:00 Terbinafine HCl (Lamisil) 250 mg BID NGT Last administered on 08/13/16 08:04; Admin Dose 250 MG; Start 08/08/16 at 21:00; Stop 08/15/16 at 20:59 Calcium Carbonate (Ca Carbonate) 1,250 mg Q12 NGT Last administered on 08:04; Admin Dose 1,250 MG; Start 08/11/16 at 09:00 IV Flush (NS 10 ml) 10 ml PRN PRN IV FLUSH LINE; Start 08/11/16 at 20:00 Hydralazine HCl (Apresoline) 10 mg Q4H PRN IV SBP >160 Last administered on 03:16; Admin Dose 10 MG; Start 08/13/16 at 03:30 Amlodipine Besylate (Norvasc) 5 mg DAILY PO Last administered on 08/13/16 08: 05; Admin Dose 5 MG; Start 08/13/16 at 09:00 Assessment/Plan Chief Complaint/Hosp Course IMPRESSION: 1. Acute renal failure hemodialysis currently on hold trial of Lasix 2. Respiratory failure/Hypoxemic, slowly improving hypoxemia failed several CPAP trials 3. Severe hypothyroidism 4. History of ETOH 5. Status post septic shock requiring vasopressors. 6. Anemia 7. Insulin-dependent diabetes RECS: 1 continue current ventilator settings 2. Retry CPAP/PS in am 3. D/C versed gtt 4. Propofol gtt and fentanyl gtt with sedation vacations daily 5. Maintain negative I/O 35 min cc time Problems: NIKOLE KWON MD, [facility] Aug 13, 2016 09:54
--- NOTE | 2016-08-13 10:33 | CONS ---
Date/Time of Note Date/Time of Note DATE: 08/13/16 TIME: 10:30 Assessment/Plan Assessment/Plan Additional Assessment/Plan This is a critically ill 52-year-old gentleman in the intensive care unit at [facility], septic with ARDS. The patient has been reintubated 3 times already. He still has septic laboratory tests with a white blood cell count which is extremely at this time. Other diagnoses include a metabolic acidosis, renal failure on hemodialysis, persistent fluid and electrolyte abnormalities, are being attended to by the patient's primary care hospitalist teams and subspecialists involved with his care issues. The patient is a FULL CODE, although he is young, I will contact family members and introduce myself and discuss his overall clinical course. Mr. Dick seems to be improving per my discussion with nursing staff. Goals of care are to continue with aggressive intervention. I've had a brief conversation with family members but I'll contact patient sister. Consultation Date/Type/Reason Admit Date/Time August 01, 2016 at 00:50 Initial Consult Date 08/01/16 Type of Consultation: Pulmonary ICU Referring Provider: NIKOLE KWON MD, [facility] Exam/Review of Systems Vital Signs Vitals Vital Signs Date Time Temp Pulse Resp B/P Pulse Ox O2 Delivery O2 Flow Rate FiO2 08/13/16 09:00 35 08/13/16 09:00 94 30 173/94 100 Mechanical Ventilator 08/13/16 07:00 97.7 Intake and Output 08/12/16 08/12/16 08/13/16 15:00 23:00 07:00 Intake Total 641.5 ml 648.46 ml 503.252 ml Output Total 1180 ml 610 ml 760 ml Balance -538.5 ml 38.46 ml -256.748 ml Results Result Diagram: 08/13/16 0350 08/13/16 0350 Results 24 hrs Laboratory Tests Test 08/12/16 12:41 08/12/16 17:54 08/12/16 20:33 08/13/16 00:44 Bedside Glucose 95 105 93 90 Test 08/13/16 03:50 08/13/16 05:22 08/13/16 07:23 08/13/16 09:00 White Blood Count 14.9 H Red Blood Count 2.92 L Hemoglobin 9.4 L Hematocrit 28.0 L Mean Corpuscular Volume 95.9 Mean Corpuscular Hemoglobin 32.2 Mean Corpuscular Hemoglobin Concent 33.6 Red Cell Distribution Width 17.9 H Platelet Count 101 L Mean Platelet Volume 14.2 #H Neutrophils % 81.7 H Lymphocytes % 9.5 L Monocytes % 6.1 Eosinophils % 0.3 Basophils % 0.1 Nucleated Red Blood Cells % 0.9 H Neutrophils # 12.2 H Lymphocytes # 1.4 Monocytes # 0.9 Eosinophils # 0.0 Basophils # 0.0 Nucleated Red Blood Cells # 0.1 H Sodium Level 139 Potassium Level 3.6 Chloride Level 105 Carbon Dioxide Level 28 Anion Gap 10 Blood Urea Nitrogen 57 H Creatinine 1.97 H Glucose Level 103 Calcium Level 9.1 Phosphorus Level 5.1 H Magnesium Level 2.0 Bedside Glucose 102 104 Blood Gas Specimen Source Blood arterial Arterial Blood Date Drawn 08/13/2016 7:20:17 AM Arterial Blood pH (Temp corrected) 7.464 H Arterial Blood pCO2 (Temp correct) 37.8 Arterial Blood pO2 (Temp corrected) 88.9 Arterial Blood HCO3 26.5 H Arterial Blood Base Excess 2.7 Arterial Blood Oxygen Saturation 95.9 Stanley Test ACCEPTAB Arterial Blood Gas Puncture Site Left Radial Arterial Blood Carboxyhemoglobin 0 Arterial Blood Methemoglobin 0.4 Blood Gas A-a O2 Differential 116.7 H Oxyhemoglobin Percent 95.5 Total Hemoglobin 10.6 L Blood Gas Temperature 37.0 Blood Gas Respiration Rate 24.0 Blood Gas Actual Respiration Rate 24 Blood Gas Modality VENT - AC FiO2 35.0 Blood Gas Tidal Volume 500.0 Blood Gas Low PEEP Setting 8.0 Blood Gas Notified Whom JLD Blood Gas Notified Time 08/13/2016 7:36:06 AM Medications Medications Current Medications Lorazepam (Ativan) 0.5 mg Q6H PRN IV ANXIETY Last administered on 08/07/16t 23: 23; Admin Dose 0.5 MG; Start 08/01/16 at 03:00 Ondansetron HCl (Zofran Inj) 4 mg Q6H PRN IV NAUSEA AND/OR VOMITING; Start at 03:00 Metoclopramide HCl (Reglan) 10 mg Q6H PRN IV NAUSEA AND/OR VOMITING; Start at 03:00 Acetaminophen (Tylenol Tab) 650 mg Q6H PRN PO PAIN LEVEL 1-3 OR FEVER; Start at 03:00 Acetaminophen (Tylenol Supp) 650 mg Q4H PRN [place] PAIN LEVEL 1-3 OR FEVER; Start 08/01/16 at 06:30 Pantoprazole 40 mg 40 mg BID@06,18 IV Last administered on 08/13/16 05:34; Admin Dose 40 MG; Start 08/01/16 at 06:00 Propofol 100 ml @ 3.33 mls/hr Q12H IV Last administered on 08/13/16 05:23; Admin Dose 15.984 MLS/HR; Start 08/01/16 at 09:30 Phenylephrine HCl 40 mg/Dextrose 500 ml @ 0 mls/hr TITRATE IV Last administered on 08/02/16 04:58; Admin Dose 112.5 MLS/HR; Start 08/01/16 at 16:00 Norepinephrine 16 mg/Dextrose 500 ml @ 0 mls/hr TITRATE IV Last administered on 08/06/16 00:10; Admin Dose 30 MLS/HR; Start 08/01/16 at 16:00 Vasopressin 60 unit/Dextrose 60 ml @ 1.2 mls/hr Q12H IV Last administered on 03:55; Admin Dose 2.4 MLS/HR; Start 08/01/16 at 17:30 Epinephrine/ Sodium Chloride (EPINEPHrine/NS) 250 ml @ 3.75 mls/hr TITRATE IV Last administered on 08/01/16 18:50; Admin Dose 3.75 MLS/HR; Start 08/01/16 at 19:30 Eye Lubricant (Artificial Tears Oph) 2 drop QID BOTH EYES Last administered on 08/13/16 08:05; Admin Dose 2 DROP; Start 08/02/16 at 09:00 Insulin Aspart (Novolog Insulin Pen) NOVOLOG *MODERATE* ALGORI... Q4 SC Last administered on 08/06/16 05:48; Admin Dose 2 UNIT; Start 08/02/16 at 09:00 Miscellaneous Information 1 ea NOTE XX ; Start 08/02/16 at 09:00 Glucose (Glutose) 15 gm Q15M PRN PO DECREASED GLUCOSE; Start 08/02/16 at 09:00 Glucose (Glutose) 22.5 gm Q15M PRN PO DECREASED GLUCOSE; Start 08/02/16 at 09:00 Dextrose (D50w Syringe) 25 ml Q15M PRN IV DECREASED GLUCOSE Last administered on 08/08/16 08:46; Admin Dose 25 ML; Start 08/02/16 at 09:00 Dextrose (D50w Syringe) 50 ml Q15M PRN IV DECREASED GLUCOSE; Start 08/02/16 at 09:00 Glucagon (Glucagen) 1 mg Q15M PRN IM DECREASED GLUCOSE; Start 08/02/16 at 09:00 Glucose 15 gm 15 gm Q15M PRN BUCCAL DECREASED GLUCOSE; Start 08/02/16 at 09:00 Midazolam HCl 50 ml @ 1 mls/hr TITRATE IV Last administered on 08/12/16 12:06 ; Admin Dose 5 MLS/HR; Start 08/02/16 at 09:30 Fentanyl 100 ml @ 2.5 mls/hr TITRATE IV Last administered on 08/13/16 06:08; Admin Dose 5 MLS/HR; Start 08/02/16 at 09:30 Metronidazole 100 ml @ 100 mls/hr Q8 IVPB Last administered on 08/13/16 06:08 ; Admin Dose 100 MLS/HR; Start 08/03/16 at 10:00 Piperacillin Sod/ Tazobactam Sod 100 ml @ 200 mls/hr Q8 IVPB Last administered on 08/13/16 05:31; Admin Dose 200 MLS/HR; Start 08/03/16 at 14:00 Vancomycin HCl/ Sodium Chloride (Vancocin/NS) 250 ml @ 83.333 mls/ hr Q96H IVPB Last administered on 08/10/16 16:19; Admin Dose 83.333 MLS/HR; Start at 16:00 Levothyroxine Sodium (Synthroid) 125 mcg DAILY@06 NGT Last administered on 08/13 05:34; Admin Dose 125 MCG; Start 08/08/16 at 06:00 Terbinafine HCl (Lamisil) 250 mg BID NGT Last administered on 08/13/16 08:04; Admin Dose 250 MG; Start 08/08/16 at 21:00; Stop 08/15/16 at 20:59 Calcium Carbonate (Ca Carbonate) 1,250 mg Q12 NGT Last administered on 08:04; Admin Dose 1,250 MG; Start 08/11/16 at 09:00 IV Flush (NS 10 ml) 10 ml PRN PRN IV FLUSH LINE; Start 08/11/16 at 20:00 Hydralazine HCl (Apresoline) 10 mg Q4H PRN IV SBP >160 Last administered on 03:16; Admin Dose 10 MG; Start 08/13/16 at 03:30 Amlodipine Besylate (Norvasc) 5 mg DAILY PO Last administered on 08/13/16 08: 05; Admin Dose 5 MG; Start 08/13/16 at 09:00 ARMIN ELIZABETH Aug 13, 2016 10:33
--- NOTE | 2016-08-13 11:56 | PN ---
Date/Time of Note Date/Time of Note DATE: 08/13/16 TIME: 11:47 Assessment/Plan VTE Prophylaxis VTE Prophylaxis Intervention: heparin Lines/Catheters IV Catheter Type (from Nrs): PICC Line Central line still needed: Yes Urinary Cath still in place: Yes Reason Cath still needed: other (indicate) Assessment/Plan Chief Complaint/Hosp Course ASSESSMENT AND PLAN: 1. Status post code/cardiac arrest, underlying etiology is unclear, if this is from electrolyte versus primary cardiac. Normal sinus rhythm, we will continue current medical management. Serial troponin mildly elevated which may be secondary to CPR, normal ejection fraction on 2D echocardiogram. Cardiology recommendation appreciated 2. Ventilator dependent respiratory failure Likely secondary to #1, patient is intubated continue vent management Intubated day #12, physical aerodynamicist management and recommendation is appreciated Trial of CPAP tomorrow if tolerated 3. Acute kidney injury Likely secondary to volume depletion and possible tubular injury. Likely secondary to code arrest; Continue hemodialysis as per nephrology, renally dose all meds, avoid nephrotoxins. Nephrology has been consulted, follow-up his recommendations and follow-up renal panel in a.m. 4. Hypokalemia. Repleted with potassium chloride. Continue to monitor. 5. Anion gap metabolic acidosis. Likely secondary to acute kidney injury. Resolved Nephrology and pulmonology consulted 6. Sepsis. Status post pressors and IV antibiotics/Zosyn 7. Acute encephalopathy. Etiology is toxic metabolic versus alcohol intoxication. Continue to monitor. Follow-up CT of the brain when patient is more stable 8. Hypothyroidism. Continue Synthroid. 9. History of alcohol use. Monitor closely for any signs of delirium tremens. Continue medical management 10. Hypoglycemia. With episodes of hyperglycemia at this time patient is blood glucose is better controlled, continue insulin sliding scale 11. Anemia. Continue to monitor hemoglobin and hematocrit levels. 12. Hypomagnesemia. Repleted 13. Enterocolitis. Status post Flagyl We will continue monitor patient closely for recommendation management treatment as clinical course Condition: Guarded Front Clerk management and recommendation is appreciated Problems: Subjective 24 Hr Interval Summary Free Text/Dictation Patient was not able to tolerate CPAP During sedation holiday patient wakes up and is able to follow simple commands No other acute event Intubated and sedated Exam/Review of Systems Vital Signs Vitals Vital Signs Date Time Temp Pulse Resp B/P Pulse Ox O2 Delivery O2 Flow Rate FiO2 08/13/16 11:13 80 24 96 35 08/13/16 10:30 127/70 08/13/16 10:00 Mechanical Ventilator 08/13/16 07:00 97.7 Intake and Output 08/12/16 08/12/16 08/13/16 15:00 23:00 07:00 Intake Total 641.5 ml 648.46 ml 503.252 ml Output Total 1180 ml 610 ml 760 ml Balance -538.5 ml 38.46 ml -256.748 ml Exam General: The patient is intubated, sedated, OG tube in place HEENT: Atraumatic, normocephalic. The pupils are equal and symmetric Neck: Supple Chest: Normal Lungs: Decreased breath sounds bilateral lower lung field, rales bilaterally Heart: Normal S1-S2, Abdomen: Soft , nontender, nondistended , bowel sounds are present. Extremities: Normal to inspection, +1 edema no cyanosis Neurologic: Patient is sedated, responds to verbal stimuli Results Result Diagram: 08/13/16 0350 08/13/16 0350 Results 24 hrs Laboratory Tests Test 08/12/16 12:41 08/12/16 17:54 08/12/16 20:33 08/13/16 00:44 Bedside Glucose 95 105 93 90 Test 08/13/16 03:50 08/13/16 05:22 08/13/16 07:23 08/13/16 09:00 White Blood Count 14.9 H Red Blood Count 2.92 L Hemoglobin 9.4 L Hematocrit 28.0 L Mean Corpuscular Volume 95.9 Mean Corpuscular Hemoglobin 32.2 Mean Corpuscular Hemoglobin Concent 33.6 Red Cell Distribution Width 17.9 H Platelet Count 101 L Mean Platelet Volume 14.2 #H Neutrophils % 81.7 H Lymphocytes % 9.5 L Monocytes % 6.1 Eosinophils % 0.3 Basophils % 0.1 Nucleated Red Blood Cells % 0.9 H Neutrophils # 12.2 H Lymphocytes # 1.4 Monocytes # 0.9 Eosinophils # 0.0 Basophils # 0.0 Nucleated Red Blood Cells # 0.1 H Sodium Level 139 Potassium Level 3.6 Chloride Level 105 Carbon Dioxide Level 28 Anion Gap 10 Blood Urea Nitrogen 57 H Creatinine 1.97 H Glucose Level 103 Calcium Level 9.1 Phosphorus Level 5.1 H Magnesium Level 2.0 Bedside Glucose 102 104 Blood Gas Specimen Source Blood arterial Arterial Blood Date Drawn 08/13/2016 7:20:17 AM Arterial Blood pH (Temp corrected) 7.464 H Arterial Blood pCO2 (Temp correct) 37.8 Arterial Blood pO2 (Temp corrected) 88.9 Arterial Blood HCO3 26.5 H Arterial Blood Base Excess 2.7 Arterial Blood Oxygen Saturation 95.9 Stanley Test ACCEPTAB Arterial Blood Gas Puncture Site Left Radial Arterial Blood Carboxyhemoglobin 0 Arterial Blood Methemoglobin 0.4 Blood Gas A-a O2 Differential 116.7 H Oxyhemoglobin Percent 95.5 Total Hemoglobin 10.6 L Blood Gas Temperature 37.0 Blood Gas Respiration Rate 24.0 Blood Gas Actual Respiration Rate 24 Blood Gas Modality VENT - AC FiO2 35.0 Blood Gas Tidal Volume 500.0 Blood Gas Low PEEP Setting 8.0 Blood Gas Notified Whom JLD Blood Gas Notified Time 08/13/2016 7:36:06 AM Medications Medications Current Medications Lorazepam (Ativan) 0.5 mg Q6H PRN IV ANXIETY Last administered on 08/07/16 23: 23; Admin Dose 0.5 MG; Start 08/01/16 at 03:00 Ondansetron HCl (Zofran Inj) 4 mg Q6H PRN IV NAUSEA AND/OR VOMITING; Start at 03:00 Metoclopramide HCl (Reglan) 10 mg Q6H PRN IV NAUSEA AND/OR VOMITING; Start at 03:00 Acetaminophen (Tylenol Tab) 650 mg Q6H PRN PO PAIN LEVEL 1-3 OR FEVER; Start at 03:00 Acetaminophen (Tylenol Supp) 650 mg Q4H PRN [place] PAIN LEVEL 1-3 OR FEVER; Start 08/01/16 at 06:30 Pantoprazole 40 mg 40 mg BID@06,18 IV Last administered on 08/13/16 05:34; Admin Dose 40 MG; Start 08/01/16 at 06:00 Propofol 100 ml @ 3.33 mls/hr Q12H IV Last administered on 08/13/16 05:23; Admin Dose 15.984 MLS/HR; Start 08/01/16 at 09:30 Phenylephrine HCl 40 mg/Dextrose 500 ml @ 0 mls/hr TITRATE IV Last administered on 08/02/16 04:58; Admin Dose 112.5 MLS/HR; Start 08/01/16 at 16:00 Norepinephrine 16 mg/Dextrose 500 ml @ 0 mls/hr TITRATE IV Last administered on 08/06/16 00:10; Admin Dose 30 MLS/HR; Start 08/01/16 at 16:00 Vasopressin 60 unit/Dextrose 60 ml @ 1.2 mls/hr Q12H IV Last administered on 03:55; Admin Dose 2.4 MLS/HR; Start 08/01/16 at 17:30 Epinephrine/ Sodium Chloride (EPINEPHrine/NS) 250 ml @ 3.75 mls/hr TITRATE IV Last administered on 08/01/16 18:50; Admin Dose 3.75 MLS/HR; Start 08/01/16 at 19:30 Eye Lubricant (Artificial Tears Oph) 2 drop QID BOTH EYES Last administered on 08/13/16 08:05; Admin Dose 2 DROP; Start 08/02/16 at 09:00 Miscellaneous Information 1 ea NOTE XX ; Start 08/02/16 at 09:00 Glucose (Glutose) 15 gm Q15M PRN PO DECREASED GLUCOSE; Start 08/02/16 at 09:00 Glucose (Glutose) 22.5 gm Q15M PRN PO DECREASED GLUCOSE; Start 08/02/16 at 09:00 Dextrose (D50w Syringe) 25 ml Q15M PRN IV DECREASED GLUCOSE Last administered on 08/08/16 08:46; Admin Dose 25 ML; Start 08/02/16 at 09:00 Dextrose (D50w Syringe) 50 ml Q15M PRN IV DECREASED GLUCOSE; Start 08/02/16 at 09:00 Glucagon (Glucagen) 1 mg Q15M PRN IM DECREASED GLUCOSE; Start 08/02/16 at 09:00 Glucose 15 gm 15 gm Q15M PRN BUCCAL DECREASED GLUCOSE; Start 08/02/16 at 09:00 Midazolam HCl 50 ml @ 1 mls/hr TITRATE IV Last administered on 08/12/16 12:06 ; Admin Dose 5 MLS/HR; Start 08/02/16 at 09:30 Fentanyl 100 ml @ 2.5 mls/hr TITRATE IV Last administered on 08/13/16 06:08; Admin Dose 5 MLS/HR; Start 08/02/16 at 09:30 Metronidazole 100 ml @ 100 mls/hr Q8 IVPB Last administered on 08/13/16 06:08 ; Admin Dose 100 MLS/HR; Start 08/03/16 at 10:00 Piperacillin Sod/ Tazobactam Sod 100 ml @ 200 mls/hr Q8 IVPB Last administered on 08/13/16 05:31; Admin Dose 200 MLS/HR; Start 08/03/16 at 14:00 Vancomycin HCl/ Sodium Chloride (Vancocin/NS) 250 ml @ 83.333 mls/ hr Q96H IVPB Last administered on 08/10/16 16:19; Admin Dose 83.333 MLS/HR; Start at 16:00 Levothyroxine Sodium (Synthroid) 125 mcg DAILY@06 NGT Last administered on 08/13 05:34; Admin Dose 125 MCG; Start 08/08/16 at 06:00 Terbinafine HCl (Lamisil) 250 mg BID NGT Last administered on 08/13/16 08:04; Admin Dose 250 MG; Start 08/08/16 at 21:00; Stop 08/15/16 at 20:59 Calcium Carbonate (Ca Carbonate) 1,250 mg Q12 NGT Last administered on 08:04; Admin Dose 1,250 MG; Start 08/11/16 at 09:00 IV Flush (NS 10 ml) 10 ml PRN PRN IV FLUSH LINE; Start 08/11/16 at 20:00 Hydralazine HCl (Apresoline) 10 mg Q4H PRN IV SBP >160 Last administered on 03:16; Admin Dose 10 MG; Start 08/13/16 at 03:30 Amlodipine Besylate (Norvasc) 5 mg DAILY PO Last administered on 08/13/16 08: 05; Admin Dose 5 MG; Start 08/13/16 at 09:00 Insulin Aspart (Novolog Insulin Pen) NOVOLOG *MODERATE* ALGORI... Q8 SC ; Start 08/13/16 at 14:00 KAREN GOMEZ MD Aug 13, 2016 11:56
--- NOTE | 2016-08-13 13:13 | CONS ---
Date/Time of Note Date/Time of Note DATE: 08/13/16 TIME: 13:12 Assessment/Plan Assessment/Plan Chief Complaint/Hosp Course SUBJECTIVE: No events. NAD, no fevers. INDWELLINGS: Endotracheal tube, PICC, right femoral Deni catheter, NGT, Silver. ANTIMICROBIALS: 1. Vancomycin. 2. Zosyn. 3. Flagyl. MICROBIOLOGY: Blood cultures have been negative. Urine culture negative. Stool for C. diff negative. PHYSICAL EXAMINATION: GENERAL: Chronically ill-appearing, middle-aged man who is intubated and sedated, in no distress. HEENT: Head atraumatic, normocephalic. Sclerae anicteric. Buccal mucosa dry. NECK: Supple, trachea midline. CHEST: Rise symmetrical. Breath sounds diminished to bases. HEART: S1, S2. ABDOMEN: Distended, soft. Bowel tones hypoactive. EXTREMITIES: Bilateral edema. ASSESSMENT: 1. S/p sepsis with shock 2. Acute respiratory failure. 3. Acute kidney injury, started on hemodialysis. 4. Status post cardiopulmonary arrest. 5. Encephalopathy. 6. History of ETOH abuse. 7. Diarrhea===> emp Flagyl 8. Leukocytosis===> resolving, off steroids PLAN: The patient remains stable, will continue Flagyl, dc other abx, follow recommendations of consultants and reculture prn. DW staff Problems: Consultation Date/Type/Reason Admit Date/Time August 01, 2016 at 00:50 Initial Consult Date 08/01/16 Type of Consultation: ID Referring Provider: NIKOLE KWON MD, [facility] Exam/Review of Systems Vital Signs Vitals Vital Signs Date Time Temp Pulse Resp B/P Pulse Ox O2 Delivery O2 Flow Rate FiO2 08/13/16 11:30 97.9 79 24 134/71 100 08/13/16 11:13 35 08/13/16 11:00 Mechanical Ventilator Intake and Output 08/12/16 08/12/16 08/13/16 15:00 23:00 07:00 Intake Total 641.5 ml 648.46 ml 503.252 ml Output Total 1180 ml 610 ml 760 ml Balance -538.5 ml 38.46 ml -256.748 ml Results Result Diagram: 08/13/16 0350 08/13/16 0350 Results 24 hrs Laboratory Tests Test 08/12/16 17:54 08/12/16 20:33 08/13/16 00:44 08/13/16 03:50 Bedside Glucose 105 93 90 White Blood Count 14.9 H Red Blood Count 2.92 L Hemoglobin 9.4 L Hematocrit 28.0 L Mean Corpuscular Volume 95.9 Mean Corpuscular Hemoglobin 32.2 Mean Corpuscular Hemoglobin Concent 33.6 Red Cell Distribution Width 17.9 H Platelet Count 101 L Mean Platelet Volume 14.2 #H Neutrophils % 81.7 H Lymphocytes % 9.5 L Monocytes % 6.1 Eosinophils % 0.3 Basophils % 0.1 Nucleated Red Blood Cells % 0.9 H Neutrophils # 12.2 H Lymphocytes # 1.4 Monocytes # 0.9 Eosinophils # 0.0 Basophils # 0.0 Nucleated Red Blood Cells # 0.1 H Sodium Level 139 Potassium Level 3.6 Chloride Level 105 Carbon Dioxide Level 28 Anion Gap 10 Blood Urea Nitrogen 57 H Creatinine 1.97 H Glucose Level 103 Calcium Level 9.1 Phosphorus Level 5.1 H Magnesium Level 2.0 Test 08/13/16 05:22 08/13/16 07:23 08/13/16 09:00 08/13/16 12:26 Bedside Glucose 102 104 Blood Gas Specimen Source Blood arterial Arterial Blood Date Drawn 08/13/2016 7:20:17 AM Arterial Blood pH (Temp corrected) 7.464 H Arterial Blood pCO2 (Temp correct) 37.8 Arterial Blood pO2 (Temp corrected) 88.9 Arterial Blood HCO3 26.5 H Arterial Blood Base Excess 2.7 Arterial Blood Oxygen Saturation 95.9 Stanley Test ACCEPTAB Arterial Blood Gas Puncture Site Left Radial Arterial Blood Carboxyhemoglobin 0 Arterial Blood Methemoglobin 0.4 Blood Gas A-a O2 Differential 116.7 H Oxyhemoglobin Percent 95.5 Total Hemoglobin 10.6 L Blood Gas Temperature 37.0 Blood Gas Respiration Rate 24.0 Blood Gas Actual Respiration Rate 24 Blood Gas Modality VENT - AC FiO2 35.0 Blood Gas Tidal Volume 500.0 Blood Gas Low PEEP Setting 8.0 Blood Gas Notified Whom JLD Blood Gas Notified Time 08/13/2016 7:36:06 AM Lab Scanned Report REFERENCE LAB Medications Medications Current Medications Lorazepam (Ativan) 0.5 mg Q6H PRN IV ANXIETY Last administered on 08/07/16t 23: 23; Admin Dose 0.5 MG; Start 08/01/16 at 03:00 Ondansetron HCl (Zofran Inj) 4 mg Q6H PRN IV NAUSEA AND/OR VOMITING; Start at 03:00 Metoclopramide HCl (Reglan) 10 mg Q6H PRN IV NAUSEA AND/OR VOMITING; Start at 03:00 Acetaminophen (Tylenol Tab) 650 mg Q6H PRN PO PAIN LEVEL 1-3 OR FEVER; Start at 03:00 Acetaminophen (Tylenol Supp) 650 mg Q4H PRN [place] PAIN LEVEL 1-3 OR FEVER; Start 08/01/16 at 06:30 Pantoprazole 40 mg 40 mg BID@06,18 IV Last administered on 08/13/16 05:34; Admin Dose 40 MG; Start 08/01/16 at 06:00 Propofol 100 ml @ 3.33 mls/hr Q12H IV Last administered on 08/13/16 12:37; Admin Dose 13.32 MLS/HR; Start 08/01/16 at 09:30 Phenylephrine HCl 40 mg/Dextrose 500 ml @ 0 mls/hr TITRATE IV Last administered on 08/02/16 04:58; Admin Dose 112.5 MLS/HR; Start 08/01/16 at 16:00 Norepinephrine 16 mg/Dextrose 500 ml @ 0 mls/hr TITRATE IV Last administered on 08/06/16 00:10; Admin Dose 30 MLS/HR; Start 08/01/16 at 16:00 Vasopressin 60 unit/Dextrose 60 ml @ 1.2 mls/hr Q12H IV Last administered on 03:55; Admin Dose 2.4 MLS/HR; Start 08/01/16 at 17:30 Epinephrine/ Sodium Chloride (EPINEPHrine/NS) 250 ml @ 3.75 mls/hr TITRATE IV Last administered on 08/01/16 18:50; Admin Dose 3.75 MLS/HR; Start 08/01/16 at 19:30 Eye Lubricant (Artificial Tears Oph) 2 drop QID BOTH EYES Last administered on 08/13/16 12:37; Admin Dose 2 DROP; Start 08/02/16 at 09:00 Miscellaneous Information 1 ea NOTE XX ; Start 08/02/16 at 09:00 Glucose (Glutose) 15 gm Q15M PRN PO DECREASED GLUCOSE; Start 08/02/16 at 09:00 Glucose (Glutose) 22.5 gm Q15M PRN PO DECREASED GLUCOSE; Start 08/02/16 at 09:00 Dextrose (D50w Syringe) 25 ml Q15M PRN IV DECREASED GLUCOSE Last administered on 08/08/16 08:46; Admin Dose 25 ML; Start 08/02/16 at 09:00 Dextrose (D50w Syringe) 50 ml Q15M PRN IV DECREASED GLUCOSE; Start 08/02/16 at 09:00 Glucagon (Glucagen) 1 mg Q15M PRN IM DECREASED GLUCOSE; Start 08/02/16 at 09:00 Glucose 15 gm 15 gm Q15M PRN BUCCAL DECREASED GLUCOSE; Start 08/02/16 at 09:00 Midazolam HCl 50 ml @ 1 mls/hr TITRATE IV Last administered on 08/12/16 12:06 ; Admin Dose 5 MLS/HR; Start 08/02/16 at 09:30 Fentanyl 100 ml @ 2.5 mls/hr TITRATE IV Last administered on 08/13/16 06:08; Admin Dose 5 MLS/HR; Start 08/02/16 at 09:30 Metronidazole 100 ml @ 100 mls/hr Q8 IVPB Last administered on 08/13/16 06:08 ; Admin Dose 100 MLS/HR; Start 08/03/16 at 10:00 Piperacillin Sod/ Tazobactam Sod 100 ml @ 200 mls/hr Q8 IVPB Last administered on 08/13/16 05:31; Admin Dose 200 MLS/HR; Start 08/03/16 at 14:00 Vancomycin HCl/ Sodium Chloride (Vancocin/NS) 250 ml @ 83.333 mls/ hr Q96H IVPB Last administered on 08/10/16 16:19; Admin Dose 83.333 MLS/HR; Start at 16:00 Levothyroxine Sodium (Synthroid) 125 mcg DAILY@06 NGT Last administered on 08/13 05:34; Admin Dose 125 MCG; Start 08/08/16 at 06:00 Terbinafine HCl (Lamisil) 250 mg BID NGT Last administered on 08/13/16 08:04; Admin Dose 250 MG; Start 08/08/16 at 21:00; Stop 08/15/16 at 20:59 Calcium Carbonate (Ca Carbonate) 1,250 mg Q12 NGT Last administered on 08:04; Admin Dose 1,250 MG; Start 08/11/16 at 09:00 IV Flush (NS 10 ml) 10 ml PRN PRN IV FLUSH LINE; Start 08/11/16 at 20:00 Hydralazine HCl (Apresoline) 10 mg Q4H PRN IV SBP >160 Last administered on 03:16; Admin Dose 10 MG; Start 08/13/16 at 03:30 Amlodipine Besylate (Norvasc) 5 mg DAILY PO Last administered on 08/13/16 08: 05; Admin Dose 5 MG; Start 08/13/16 at 09:00 Insulin Aspart (Novolog Insulin Pen) NOVOLOG *MODERATE* ALGORI... Q8 SC ; Start 08/13/16 at 14:00 RADHA ESCALANTE NP Aug 13, 2016 13:13
[2016-08-13] MEDS: metroNIDAZOLE 500 MG TAB NGT SCH ×2 (14:51→21:06)
--- NOTE | 2016-08-13 18:57 | CONS ---
Date/Time of Note Date/Time of Note DATE: 08/13/16 TIME: 18:54 Assessment/Plan Assessment/Plan Chief Complaint/Hosp Course 60-year-old right-handed -[place] gentleman normally cared for at the [facility]. He was admitted to the hospital but it had cardiac arrest in the hospital. Please note that his picture actually looked a bit like adrenal insufficiency except that he has a serum cortisol level of 44 prior to his arrest. He had a TSH of 21 with a low free T4 and a low T3. Patient is intubated and unable to give a history although he is able to look and follows rudimentary commands. At this time many of his metabolic abnormalities have improved. Problems: (1) Respiratory failure requiring intubation Status: Acute Comment: Ventilator day #12. Pulmonary is working with the patient and her trying to find a way to get him well enough for extubation. Is my opinion that he has a component of adult respiratory distress syndrome. With any luck this should clear up enough that he can survive the CPAP trial however we may end up being forced to do a trach. If we need a trach then we are definitely going to need a PEG tube. (2) Onychomycosis Status: Chronic Comment: On pulse therapy (3) Hyperglycemia Status: Acute Comment: Resolved with discontinuation of the steroids (4) Hypothyroidism Status: Chronic Comment: On levothyroxine. Will check labs in the next few days and titrate to effect Qualifiers: Hypothyroidism type: acquired Qualified Code: E03.9 - Acquired hypothyroidism (5) Acute kidney injury Status: Acute Comment: He is improving and looks like where the a and a post ATN diuresis phase (6) Sepsis syndrome Status: Acute Comment: Improved. We never had a specific organism. C. difficile study was sent out on August 02 which may have been after he got treated. Regardless the C. difficile studies have a specific high false negative rate. It would be consistent with the entire picture if this was a C. difficile colitis that he gotten out of hand. Regardless he is improved nicely Consultation Date/Type/Reason Admit Date/Time August 01, 2016 at 00:50 Initial Consult Date 08/01/16 Type of Consultation: Endocrinology Reason for Consultation Hypothyroidism; steroid-induced hyperglycemia; multiple medical problems Referring Provider: NIKOLE KWON MD, [facility] HR Interval Summary Subjective hx not possible: pt non-verbal, pt critical status Exam/Review of Systems Vital Signs Vitals Vital Signs Date Time Temp Pulse Resp B/P Pulse Ox O2 Delivery O2 Flow Rate FiO2 08/13/16 18:00 82 24 118/68 99 Mechanical Ventilator 08/13/16 17:10 35 08/13/16 15:30 97.9 Intake and Output 08/12/16 08/12/16 08/13/16 15:00 23:00 07:00 Intake Total 641.5 ml 648.46 ml 503.252 ml Output Total 1180 ml 610 ml 760 ml Balance -538.5 ml 38.46 ml -256.748 ml Exam Sedated on propofol and midazolam ENMT: intubated Neck: non-tender, supple Respiratory: clear to auscultation, normal air movement Cardiovascular: nl pulses, regular rate and rhythm Gastrointestinal: nl liver, spleen, non-tender, soft Extremities: other (Onychomycosis) Results Result Diagram: 08/13/16 0350 08/13/16 0350 Results 24 hrs Laboratory Tests Test 08/12/16 20:33 08/13/16 00:44 08/13/16 03:50 08/13/16 05:22 Bedside Glucose 93 90 102 White Blood Count 14.9 H Red Blood Count 2.92 L Hemoglobin 9.4 L Hematocrit 28.0 L Mean Corpuscular Volume 95.9 Mean Corpuscular Hemoglobin 32.2 Mean Corpuscular Hemoglobin Concent 33.6 Red Cell Distribution Width 17.9 H Platelet Count 101 L Mean Platelet Volume 14.2 #H Neutrophils % 81.7 H Lymphocytes % 9.5 L Monocytes % 6.1 Eosinophils % 0.3 Basophils % 0.1 Nucleated Red Blood Cells % 0.9 H Neutrophils # 12.2 H Lymphocytes # 1.4 Monocytes # 0.9 Eosinophils # 0.0 Basophils # 0.0 Nucleated Red Blood Cells # 0.1 H Sodium Level 139 Potassium Level 3.6 Chloride Level 105 Carbon Dioxide Level 28 Anion Gap 10 Blood Urea Nitrogen 57 H Creatinine 1.97 H Glucose Level 103 Calcium Level 9.1 Phosphorus Level 5.1 H Magnesium Level 2.0 Test 08/13/16 07:23 08/13/16 09:00 08/13/16 12:26 08/13/16 14:56 Bedside Glucose 104 102 Blood Gas Specimen Source Blood arterial Arterial Blood Date Drawn 08/13/2016 7:20:17 AM Arterial Blood pH (Temp corrected) 7.464 H Arterial Blood pCO2 (Temp correct) 37.8 Arterial Blood pO2 (Temp corrected) 88.9 Arterial Blood HCO3 26.5 H Arterial Blood Base Excess 2.7 Arterial Blood Oxygen Saturation 95.9 Stanley Test ACCEPTAB Arterial Blood Gas Puncture Site Left Radial Arterial Blood Carboxyhemoglobin 0 Arterial Blood Methemoglobin 0.4 Blood Gas A-a O2 Differential 116.7 H Oxyhemoglobin Percent 95.5 Total Hemoglobin 10.6 L Blood Gas Temperature 37.0 Blood Gas Respiration Rate 24.0 Blood Gas Actual Respiration Rate 24 Blood Gas Modality VENT - AC FiO2 35.0 Blood Gas Tidal Volume 500.0 Blood Gas Low PEEP Setting 8.0 Blood Gas Notified Whom JLD Blood Gas Notified Time 08/13/2016 7:36:06 AM Lab Scanned Report REFERENCE LAB Medications Medications Current Medications Lorazepam (Ativan) 0.5 mg Q6H PRN IV ANXIETY Last administered on 08/07/16 23: 23; Admin Dose 0.5 MG; Start 08/01/16 at 03:00 Ondansetron HCl (Zofran Inj) 4 mg Q6H PRN IV NAUSEA AND/OR VOMITING; Start at 03:00 Metoclopramide HCl (Reglan) 10 mg Q6H PRN IV NAUSEA AND/OR VOMITING; Start at 03:00 Acetaminophen (Tylenol Tab) 650 mg Q6H PRN PO PAIN LEVEL 1-3 OR FEVER; Start at 03:00 Acetaminophen (Tylenol Supp) 650 mg Q4H PRN SD PAIN LEVEL 1-3 OR FEVER; Start 08/01/16 at 06:30 Pantoprazole 40 mg 40 mg BID@06,18 IV Last administered on 08/13/16 17:29; Admin Dose 40 MG; Start 08/01/16 at 06:00 Propofol 100 ml @ 3.33 mls/hr Q12H IV Last administered on 08/13/16 17:28; Admin Dose 16.65 MLS/HR; Start 08/01/16 at 09:30 Phenylephrine HCl 40 mg/Dextrose 500 ml @ 0 mls/hr TITRATE IV Last administered on 08/02/16 04:58; Admin Dose 112.5 MLS/HR; Start 08/01/16 at 16:00 Norepinephrine 16 mg/Dextrose 500 ml @ 0 mls/hr TITRATE IV Last administered on 08/06/16 00:10; Admin Dose 30 MLS/HR; Start 08/01/16 at 16:00 Vasopressin 60 unit/Dextrose 60 ml @ 1.2 mls/hr Q12H IV Last administered on 03:55; Admin Dose 2.4 MLS/HR; Start 08/01/16 at 17:30 Epinephrine/ Sodium Chloride (EPINEPHrine/NS) 250 ml @ 3.75 mls/hr TITRATE IV Last administered on 08/01/16 18:50; Admin Dose 3.75 MLS/HR; Start 08/01/16 at 19:30 Eye Lubricant (Artificial Tears Oph) 2 drop QID BOTH EYES Last administered on 08/13/16 17:12; Admin Dose 2 DROP; Start 08/02/16 at 09:00 Miscellaneous Information 1 ea NOTE XX ; Start 08/02/16 at 09:00 Glucose (Glutose) 15 gm Q15M PRN PO DECREASED GLUCOSE; Start 08/02/16 at 09:00 Glucose (Glutose) 22.5 gm Q15M PRN PO DECREASED GLUCOSE; Start 08/02/16 at 09:00 Dextrose (D50w Syringe) 25 ml Q15M PRN IV DECREASED GLUCOSE Last administered on 08/08/16 08:46; Admin Dose 25 ML; Start 08/02/16 at 09:00 Dextrose (D50w Syringe) 50 ml Q15M PRN IV DECREASED GLUCOSE; Start 08/02/16 at 09:00 Glucagon (Glucagen) 1 mg Q15M PRN IM DECREASED GLUCOSE; Start 08/02/16 at 09:00 Glucose 15 gm 15 gm Q15M PRN BUCCAL DECREASED GLUCOSE; Start 08/02/16 at 09:00 Midazolam HCl 50 ml @ 1 mls/hr TITRATE IV Last administered on 08/12/16 12:06 ; Admin Dose 5 MLS/HR; Start 08/02/16 at 09:30 Fentanyl (Sublimaze) 100 ml @ 2.5 mls/hr TITRATE IV Last administered on 06:08; Admin Dose 5 MLS/HR; Start 08/02/16 at 09:30 Levothyroxine Sodium (Synthroid) 125 mcg DAILY@06 NGT Last administered on 08/13 05:34; Admin Dose 125 MCG; Start 08/08/16 at 06:00 Terbinafine HCl (Lamisil) 250 mg BID NGT Last administered on 08/13/16 08:04; Admin Dose 250 MG; Start 08/08/16 at 21:00; Stop 08/15/16 at 20:59 Calcium Carbonate (Ca Carbonate) 1,250 mg Q12 NGT Last administered on 08:04; Admin Dose 1,250 MG; Start 08/11/16 at 09:00 IV Flush (NS 10 ml) 10 ml PRN PRN IV FLUSH LINE; Start 08/11/16 at 20:00 Hydralazine HCl (Apresoline) 10 mg Q4H PRN IV SBP >160 Last administered on 03:16; Admin Dose 10 MG; Start 08/13/16 at 03:30 Amlodipine Besylate (Norvasc) 5 mg DAILY PO Last administered on 08/13/16 08: 05; Admin Dose 5 MG; Start 08/13/16 at 09:00 Insulin Aspart (Novolog Insulin Pen) NOVOLOG *MODERATE* ALGORI... Q8 SC ; Start 08/13/16 at 14:00 Metronidazole (Flagyl) 500 mg Q8 NGT Last administered on 08/13/16 14:51; Admin Dose 500 MG; Start 08/13/16 at 14:00 ERIN MARTÍNEZ MD Aug 13, 2016 18:57
[2016-08-14] VITALS (56 sets, daily range): BP systolic 104–167; BP diastolic 58–99; PULSE 68–93; RESP 21–36
[2016-08-14] MEDS: FENTAnyl (DRIP) 1000 mcg/100mL 100 ML IV SCH ×2 (03:13→18:01)
[2016-08-14] MEDS: PROPOFOL 100 ML IV SCH ×5 (03:14→22:14)
[2016-08-14] MEDS: VASOPRESSIN 60 UNIT in DEXTROSE 5% 57 ML IV SCH ×3 (05:30→23:42)
[2016-08-14] MEDS: INSULIN ASPART [NOVOLOG] 3 ML PEN SC SCH ×3 (05:32→21:33)
[2016-08-14] MEDS: PANTOPRAZOLE 40 MG INJ IV SCH ×2 (06:25→17:20)
[2016-08-14] MEDS: LEVOTHYROXINE 125 MCG TAB NGT SCH (06:26)
[2016-08-14] MEDS: FUROSEMIDE 40 MG INJ IV SCH ×2 (06:26→17:20)
[2016-08-14] MEDS: metroNIDAZOLE 500 MG TAB NGT SCH ×3 (06:26→21:31)
[2016-08-14 06:41] LABS: ADD SCAN DIFF NO
[2016-08-14 06:54] LABS: ABNORMAL IP MESSAGE 1; BASOPHILS % 0.1 % (0.0-2.0); EOSINOPHILS % 0.2 % (0.0-7.0); HEMATOCRIT 27.2 % (42.0-52.0); HEMOGLOBIN 9.1 g/dl (14.0-18.0); LYMPHOCYTES # 1.3 10^3/ul (0.8-2.9); LYMPHOCYTES % 9.7 % (15.0-51.0); MEAN CORPUSCULAR HEMOGLOBIN 32.3 pg (29.0-33.0); MEAN CORPUSCULAR HGB CONC 33.5 g/dl (32.0-37.0); MEAN CORPUSCULAR VOLUME 96.5 fl (82.0-101.0); MEAN PLATELET VOLUME 13.9 fl (7.4-10.4); MONOCYTE # 0.9 10^3/ul (0.3-0.9); MONOCYTES % 6.7 % (0.0-11.0); NEUTROPHIL # 10.8 10^3/ul (1.6-7.5); NEUTROPHILS % 81.7 % (39.0-77.0); NUCLEATED RED BLOOD CELLS% 0.2 /100WBC (0.0-0.0); PLATELET COUNT 116 10^3/UL (140-415); RED BLOOD COUNT 2.82 10^6/ul (4.70-6.10); RED CELL DISTRIBUTION WIDTH 18.2 % (11.5-14.5); WHITE BLOOD COUNT 13.2 10^3/ul (4.8-10.8)
[2016-08-14 07:19] LABS: CALCIUM 8.8 mg/dl (8.4-10.2); CREATININE 1.85 mg/dl (0.61-1.24); MAGNESIUM 1.9 mg/dl (1.7-2.5); POTASSIUM 3.5 mmol/L (3.5-5.1)
--- NOTE | 2016-08-14 08:16 | RADRPT ---
PROCEDURE: Chest Radiograph. CLINICAL INDICATION: Pneumonia. CHF. TECHNIQUE: Single frontal chest radiograph. COMPARISON: Chest radiograph 08/13/2016 FINDINGS: Study is mildly under penetrated. An endotracheal tube, nasogastric tube, left upper extremity PICC remain in stable and radiographically appropriate position. Heart size is poorly evaluated but elba ears mildly enlarged. Atherosclerotic calcifications are present. There is a stable small left ple ural effusion with adjacent atelectasis/infiltrate. Interstitial opacities are grossly unchanged in distribution and extent. Patchy areas of atelectasis are stable. The bones are intact. IMPRESSION: 1. Stable radiographic appearance of chest compared to 08/13/2016. RPTAT: KK .Gonsalo Dunne MD, MD Date Time Electronically viewed and signed by .Gonsalo Dunne MD, MD on 08/14/2016 08:15 .B/
[2016-08-14] MEDS ORDERED: MAGNESIUM SULFATE 2 GM/50 ML 50 ML IVPB ONE (08:30)
[2016-08-14] MEDS ORDERED: POTASSIUM CHLORIDE 20 MEQ POWDER FOR ORAL SOLN PO ONE (08:30)
[2016-08-14] MEDS: ARTIFICIAL TEARS 15 ML OPH BOTH EYES SCH ×4 (08:46→21:31)
[2016-08-14] MEDS: AMLODIPINE 5 MG TAB PO SCH (08:46)
[2016-08-14] MEDS: TERBINAFINE 250 MG TAB NGT SCH ×2 (08:46→21:31)
[2016-08-14] MEDS: CA CARBONATE (250 MG/ML) 5ML CUP NGT SCH ×2 (08:46→21:31)
--- NOTE | 2016-08-14 09:22 | CONS ---
Date/Time of Note Date/Time of Note DATE: 08/14/16 TIME: 09:20 Assessment/Plan Assessment/Plan Chief Complaint/Hosp Course PEA cardiac arrest: secondary to severe metabolic acidosis. No VT/VF or EKG changes to suggest primary cardiac etiology. Trops ok, EF preserved. Acute respiratory failure: intubated during code.Likely ARDS and some component of fluid overload Currently being weaned Severe metabolic acidosis: likely was the culprit for the arrest. Resolved Shock: ?septic.Off pressors Acute renal failure: unclear etiology now on intermittent HD. Good UOP so may not need further HD Hypoglycemia Hypothyroidism Diarrhea/n/v/colitis HTN: now elevated -amlodipine 5mg -vent management per pulm Problems: Consultation Date/Type/Reason Admit Date/Time August 01, 2016 at 00:50 Initial Consult Date 08/01/16 Type of Consultation: Cardiology Referring Provider: NIKOLE KWON MD, [facility] 24 HR Interval Summary Free Text/Dictation No o/n events. Awake and responsive. Weaning in process. Good UOP. Exam/Review of Systems Vital Signs Vitals Vital Signs Date Time Temp Pulse Resp B/P Pulse Ox O2 Delivery O2 Flow Rate FiO2 08/14/16 08:00 30 08/14/16 08:00 97.7 86 24 153/79 100 Mechanical Ventilator Intake and Output 08/13/16 08/13/16 08/14/16 15:00 23:00 07:00 Intake Total 740.65 ml 573.35 ml 587 ml Output Total 845 ml 880 ml 905 ml Balance -104.35 ml -306.65 ml -318 ml Exam Constitutional: alert Head: atraumatic, normocephalic ENMT: intubated Neck: No jvd Respiratory: crackles/rales, No clear to auscultation Cardiovascular: edema (1+), regular rate and rhythm, No systolic murmur Gastrointestinal: non-tender, soft Results Result Diagram: 08/14/16 0530 08/14/16 0530 Results 24 hrs Laboratory Tests Test 08/13/16 12:26 08/13/16 14:56 08/13/16 21:08 08/14/16 05:20 Lab Scanned Report REFERENCE LAB Bedside Glucose 102 96 120 Test 08/14/16 05:30 White Blood Count 13.2 H Red Blood Count 2.82 L Hemoglobin 9.1 L Hematocrit 27.2 L Mean Corpuscular Volume 96.5 Mean Corpuscular Hemoglobin 32.3 Mean Corpuscular Hemoglobin Concent 33.5 Red Cell Distribution Width 18.2 H Platelet Count 116 L Mean Platelet Volume 13.9 H Neutrophils % 81.7 H Lymphocytes % 9.7 L Monocytes % 6.7 Eosinophils % 0.2 Basophils % 0.1 Nucleated Red Blood Cells % 0.2 H Neutrophils # 10.8 H Lymphocytes # 1.3 Monocytes # 0.9 Eosinophils # 0.0 Basophils # 0.0 Nucleated Red Blood Cells # 0.0 Sodium Level 140 Potassium Level 3.5 Chloride Level 104 Carbon Dioxide Level 28 Anion Gap 12 Blood Urea Nitrogen 58 H Creatinine 1.85 H Glucose Level 121 Calcium Level 8.8 Phosphorus Level 5.0 H Magnesium Level 1.9 Medications Medications Current Medications Lorazepam (Ativan) 0.5 mg Q6H PRN IV ANXIETY Last administered on 08/07/16 23: 23; Admin Dose 0.5 MG; Start 08/01/16 at 03:00 Ondansetron HCl (Zofran Inj) 4 mg Q6H PRN IV NAUSEA AND/OR VOMITING; Start at 03:00 Metoclopramide HCl (Reglan) 10 mg Q6H PRN IV NAUSEA AND/OR VOMITING; Start at 03:00 Acetaminophen (Tylenol Tab) 650 mg Q6H PRN PO PAIN LEVEL 1-3 OR FEVER; Start at 03:00 Acetaminophen (Tylenol Supp) 650 mg Q4H PRN [place] PAIN LEVEL 1-3 OR FEVER; Start 08/01/16 at 06:30 Pantoprazole 40 mg 40 mg BID@06,18 IV Last administered on 08/14/16 06:25; Admin Dose 40 MG; Start 08/01/16 at 06:00 Propofol 100 ml @ 3.33 mls/hr Q12H IV Last administered on 08/14/16 03:14; Admin Dose 16.65 MLS/HR; Start 08/01/16 at 09:30 Phenylephrine HCl 40 mg/Dextrose 500 ml @ 0 mls/hr TITRATE IV Last administered on 08/02/16 04:58; Admin Dose 112.5 MLS/HR; Start 08/01/16 at 16:00 Norepinephrine 16 mg/Dextrose 500 ml @ 0 mls/hr TITRATE IV Last administered on 08/06/16 00:10; Admin Dose 30 MLS/HR; Start 08/01/16 at 16:00 Vasopressin 60 unit/Dextrose 60 ml @ 1.2 mls/hr Q12H IV Last administered on 03:55; Admin Dose 2.4 MLS/HR; Start 08/01/16 at 17:30 Epinephrine/ Sodium Chloride (EPINEPHrine/NS) 250 ml @ 3.75 mls/hr TITRATE IV Last administered on 08/01/16 18:50; Admin Dose 3.75 MLS/HR; Start 08/01/16 at 19:30 Eye Lubricant (Artificial Tears Oph) 2 drop QID BOTH EYES Last administered on 08/14/16 08:46; Admin Dose 2 DROP; Start 08/02/16 at 09:00 Miscellaneous Information 1 ea NOTE XX ; Start 08/02/16 at 09:00 Glucose (Glutose) 15 gm Q15M PRN PO DECREASED GLUCOSE; Start 08/02/16 at 09:00 Glucose (Glutose) 22.5 gm Q15M PRN PO DECREASED GLUCOSE; Start 08/02/16 at 09:00 Dextrose (D50w Syringe) 25 ml Q15M PRN IV DECREASED GLUCOSE Last administered on 08/08/16 08:46; Admin Dose 25 ML; Start 08/02/16 at 09:00 Dextrose (D50w Syringe) 50 ml Q15M PRN IV DECREASED GLUCOSE; Start 08/02/16 at 09:00 Glucagon (Glucagen) 1 mg Q15M PRN IM DECREASED GLUCOSE; Start 08/02/16 at 09:00 Glucose 15 gm 15 gm Q15M PRN BUCCAL DECREASED GLUCOSE; Start 08/02/16 at 09:00 Midazolam HCl 50 ml @ 1 mls/hr TITRATE IV Last administered on 08/12/16 12:06 ; Admin Dose 5 MLS/HR; Start 08/02/16 at 09:30 Fentanyl (Sublimaze) 100 ml @ 2.5 mls/hr TITRATE IV Last administered on 03:13; Admin Dose 5 MLS/HR; Start 08/02/16 at 09:30 Levothyroxine Sodium (Synthroid) 125 mcg DAILY@06 NGT Last administered on 08/14 06:26; Admin Dose 125 MCG; Start 08/08/16 at 06:00 Terbinafine HCl (Lamisil) 250 mg BID NGT Last administered on 08/14/16 08:46; Admin Dose 250 MG; Start 08/08/16 at 21:00; Stop 08/15/16 at 20:59 Calcium Carbonate (Ca Carbonate) 1,250 mg Q12 NGT Last administered on 08:46; Admin Dose 1,250 MG; Start 08/11/16 at 09:00 IV Flush (NS 10 ml) 10 ml PRN PRN IV FLUSH LINE; Start 08/11/16 at 20:00 Hydralazine HCl (Apresoline) 10 mg Q4H PRN IV SBP >160 Last administered on 03:16; Admin Dose 10 MG; Start 08/13/16 at 03:30 Amlodipine Besylate (Norvasc) 5 mg DAILY PO Last administered on 08/14/16 08: 46; Admin Dose 5 MG; Start 08/13/16 at 09:00 Insulin Aspart (Novolog Insulin Pen) NOVOLOG *MODERATE* ALGORI... Q8 SC ; Start 08/13/16 at 14:00 Metronidazole 500 mg 500 mg Q8 NGT Last administered on 08/14/16 06:26; Admin Dose 500 MG; Start 08/13/16 at 14:00 Magnesium Sulfate (Magnesium Sulfate 2 Gm/50 ml) 50 ml @ 25 mls/hr ONCE ONCE IVPB Last administered on 08/14/16 08:46; Admin Dose 25 MLS/HR; Start at 08:30; Stop 08/14/16 at 10:29 SEPIDEH HAN Aug 14, 2016 09:22
--- NOTE | 2016-08-14 09:34 | PN ---
DATE: 08/14/2016 SUBJECTIVE: The patient remains critically ill, but stable. No acute events overnight. No hemoptysis, hematemesis or hematochezia. OBJECTIVE: VITAL SIGNS: Blood pressure is 128/92, respirations 24, pulse 75, temperature 98.6 INTAKE AND OUTPUT: 1.9 liters in, 2.5 liters out. HEENT: Head is normocephalic. NECK: Supple. HEART: Regular rate. LUNGS: Show diminished breath sounds at the base. ABDOMEN: Soft, nontender to palpation without rebound or guarding. EXTREMITIES: Negative for clubbing, cyanosis, no edema. DERMATOLOGIC: No rashes. MUSCULOSKELETAL: No joint effusion. NEUROLOGIC: No change in exam. MEDICATIONS: The patient's medication reviewed. LABORATORY DATA: Shows sodium 140, potassium 3.5, chloride 104,phosphorus 5.0, white count 13.2, hemoglobin 9 hematocrit 27.2, platelet count is 115. ASSESSMENT AND PLAN: 1. non-oliguric acute kidney injury with unknown baseline creatinine. Etiology is secondary to acute tubular necrosis due to septic shock. The patient is status post hemodialysis. The patient is showing signs of renal recovery. Urinary output has been excellent. At this point continue current treatment plan, supportive care, renally dose all medications. s/p removing Deni catheter. 2. Anemia. Continue to monitor H and H levels. 3. Mineral bone disorder. Continue to monitor calcium and phosphorous levels. 4. Volume overload secondary to acute kidney injury and congestive heart failure. The patient is clinically improving. Continue diuretic therapy. Anticipate deescalating in the next 1 to 2 days. 5. Ventilator dependent respiratory failure. Vent settings have been reviewed. ABG is reviewed. Continue to monitor. Follow up with pulmonary. 6. Sepsis, status post shock, currently off pressors. Continue current antibiotic regimen. Follow up with infectious disease. 7. Acute encephalopathy, etiology is toxic metabolic. Continue to monitor. 8. Dysphagia. Status post PEG, continue tube feeding. 9. Hypothyroidism. Continue Synthroid. 10. Diabetes. Continue Accu-Cheks and sliding scale. 11. History of ethyl alcohol abuse. 12. Status post cardiopulmonary arrest. Dictated By: BALDOMERO TOVAR/CHARLES Conf#: [id number] DID#: [id number]
[2016-08-14 10:00] LABS: AADO2 Arterial 100.1 mmHg (7.0-24.0); Allen Test ACCEPTAB; Arterial Base Excess -2.4 mmol/L (-3.0-3); Arterial COHb 0.3 % (0.0-3.0); Arterial Fraction of Oxyhgb 92.3 % (93.0-99.0); Arterial HCO3 21.3 mmol/L (22.0-26.0); Arterial MetHb 0.4 % (0.0-1.5); Arterial Total Hemglobin 10.6 g/dl (12.0-18.0); Blood Gas PS 10; MODE VENT - CPAP
--- NOTE | 2016-08-14 10:03 | PN ---
Date/Time of Note Date/Time of Note DATE: 08/14/16 TIME: 09:50 Assessment/Plan VTE Prophylaxis VTE Prophylaxis Intervention: SCD's Lines/Catheters IV [facility]ter Type (from [facility]): PICC Line Central line still needed: Yes Urinary Cath still in place: Yes Reason Cath still needed: other (indicate) Assessment/Plan Chief Complaint/Hosp Course ASSESSMENT AND PLAN: 1. Status post code/cardiac arrest, Normal sinus rhythm, we will continue current medical management. Serial troponin mildly elevated which may be secondary to CPR, normal ejection fraction on 2D echocardiogram. Cardiology recommendation appreciated 2. Ventilator dependent respiratory failure Likely secondary to #1, patient is intubated continue vent management Intubated day #12, plant operator helper management and recommendation is appreciated Trial of CPAP today and if tolerated proceed with extubation recommended by plant operator helper 3. Acute kidney injury Likely secondary to volume depletion and possible tubular injury. Likely secondary to code arrest; Continue hemodialysis as per nephrology, renally dose all meds, avoid nephrotoxins. Nephrology has been consulted, follow-up his recommendations and follow-up renal panel in a.m. 4. Hypokalemia. Repleted with potassium chloride. Continue to monitor. 5. Anion gap metabolic acidosis. Likely secondary to acute kidney injury. Resolved Nephrology and pulmonology consulted 6. Sepsis. Status post pressors and IV antibiotics/Zosyn 7. Acute encephalopathy. Etiology is toxic metabolic versus alcohol intoxication. Continue to monitor. Follow-up CT of the brain when patient is more stable 8. Hypothyroidism. Continue Synthroid. 9. History of alcohol use. Monitor closely for any signs of delirium tremens. Continue medical management 10. Hypoglycemia. With episodes of hyperglycemia at this time patient is blood glucose is better controlled, continue insulin sliding scale 11. Anemia. Continue to monitor hemoglobin and hematocrit levels. 12. Hypomagnesemia. Repleted 13. Enterocolitis. Status post Flagyl We will continue monitor patient closely for recommendation management treatment as clinical course Condition: Guarded Emotional Disabilities Teacher management and recommendation is appreciated Problems: Subjective 24 Hr Interval Summary Free Text/Dictation Patient is off sedation, he is awake alert able to follow simple commands Vent setting has been transitioned to CPAP and patient has been able to tolerate this setting Vent settin FiO2 of 30% with PEEP of 5 Tolerating tube feeding Exam/Review of Systems Vital Signs Vitals Vital Signs Date Time Temp Pulse Resp B/P Pulse Ox O2 Delivery O2 Flow Rate FiO2 08/14/16 09:15 90 34 152/94 100 08/14/16 09:00 Mechanical Ventilator 08/14/16 08:00 30 08/14/16 08:00 97.7 Intake and Output 08/13/16 08/13/16 08/14/16 15:00 23:00 07:00 Intake Total 740.65 ml 573.35 ml 587 ml Output Total 845 ml 880 ml 905 ml Balance -104.35 ml -306.65 ml -318 ml Exam General: Morbidly obese, the patient is intubated, Not in acute distress. HEENT: Atraumatic, normocephalic. The pupils are equal and symmetric Neck: Supple Chest: Normal expansion of the thorax during inspiration Lungs: Decreased breath sounds bilateral lower lung field, positive crackles Heart: Normal S1-S2, Regular rhythm and rate. Abdomen: Soft , nontender, nondistended , bowel sounds are present. Extremities: Normal to inspection, +1 edema no cyanosis Neurologic: The patient is awake, alert able to follow simple commands Results Result Diagram: 08/14/16 0530 08/14/16 0530 Results 24 hrs Laboratory Tests Test 08/13/16 12:26 08/13/16 14:56 08/13/16 21:08 08/14/16 05:20 Lab Scanned Report REFERENCE LAB Bedside Glucose 102 96 120 Test 08/14/16 05:30 White Blood Count 13.2 H Red Blood Count 2.82 L Hemoglobin 9.1 L Hematocrit 27.2 L Mean Corpuscular Volume 96.5 Mean Corpuscular Hemoglobin 32.3 Mean Corpuscular Hemoglobin Concent 33.5 Red Cell Distribution Width 18.2 H Platelet Count 116 L Mean Platelet Volume 13.9 H Neutrophils % 81.7 H Lymphocytes % 9.7 L Monocytes % 6.7 Eosinophils % 0.2 Basophils % 0.1 Nucleated Red Blood Cells % 0.2 H Neutrophils # 10.8 H Lymphocytes # 1.3 Monocytes # 0.9 Eosinophils # 0.0 Basophils # 0.0 Nucleated Red Blood Cells # 0.0 Sodium Level 140 Potassium Level 3.5 Chloride Level 104 Carbon Dioxide Level 28 Anion Gap 12 Blood Urea Nitrogen 58 H Creatinine 1.85 H Glucose Level 121 Calcium Level 8.8 Phosphorus Level 5.0 H Magnesium Level 1.9 Medications Medications Current Medications Lorazepam (Ativan) 0.5 mg Q6H PRN IV ANXIETY Last administered on 08/07/16 23: 23; Admin Dose 0.5 MG; Start 08/01/16 at 03:00 Ondansetron HCl (Zofran Inj) 4 mg Q6H PRN IV NAUSEA AND/OR VOMITING; Start at 03:00 Metoclopramide HCl (Reglan) 10 mg Q6H PRN IV NAUSEA AND/OR VOMITING; Start at 03:00 Acetaminophen (Tylenol Tab) 650 mg Q6H PRN PO PAIN LEVEL 1-3 OR FEVER; Start at 03:00 Acetaminophen (Tylenol Supp) 650 mg Q4H PRN [place] PAIN LEVEL 1-3 OR FEVER; Start 08/01/16 at 06:30 Pantoprazole 40 mg 40 mg BID@06,18 IV Last administered on 08/14/16 06:25; Admin Dose 40 MG; Start 08/01/16 at 06:00 Propofol 100 ml @ 3.33 mls/hr Q12H IV Last administered on 08/14/16 03:14; Admin Dose 16.65 MLS/HR; Start 08/01/16 at 09:30 Phenylephrine HCl 40 mg/Dextrose 500 ml @ 0 mls/hr TITRATE IV Last administered on 08/02/16 04:58; Admin Dose 112.5 MLS/HR; Start 08/01/16 at 16:00 Norepinephrine 16 mg/Dextrose 500 ml @ 0 mls/hr TITRATE IV Last administered on 08/06/16 00:10; Admin Dose 30 MLS/HR; Start 08/01/16 at 16:00 Vasopressin 60 unit/Dextrose 60 ml @ 1.2 mls/hr Q12H IV Last administered on 03:55; Admin Dose 2.4 MLS/HR; Start 08/01/16 at 17:30 Epinephrine/ Sodium Chloride (EPINEPHrine/NS) 250 ml @ 3.75 mls/hr TITRATE IV Last administered on 08/01/16 18:50; Admin Dose 3.75 MLS/HR; Start 08/01/16 at 19:30 Eye Lubricant (Artificial Tears Oph) 2 drop QID BOTH EYES Last administered on 08/14/16 08:46; Admin Dose 2 DROP; Start 08/02/16 at 09:00 Miscellaneous Information 1 ea NOTE XX ; Start 08/02/16 at 09:00 Glucose (Glutose) 15 gm Q15M PRN PO DECREASED GLUCOSE; Start 08/02/16 at 09:00 Glucose (Glutose) 22.5 gm Q15M PRN PO DECREASED GLUCOSE; Start 08/02/16 at 09:00 Dextrose (D50w Syringe) 25 ml Q15M PRN IV DECREASED GLUCOSE Last administered on 08/08/16 08:46; Admin Dose 25 ML; Start 08/02/16 at 09:00 Dextrose (D50w Syringe) 50 ml Q15M PRN IV DECREASED GLUCOSE; Start 08/02/16 at 09:00 Glucagon (Glucagen) 1 mg Q15M PRN IM DECREASED GLUCOSE; Start 08/02/16 at 09:00 Glucose 15 gm 15 gm Q15M PRN BUCCAL DECREASED GLUCOSE; Start 08/02/16 at 09:00 Midazolam HCl 50 ml @ 1 mls/hr TITRATE IV Last administered on 08/12/16 12:06 ; Admin Dose 5 MLS/HR; Start 08/02/16 at 09:30 Fentanyl (Sublimaze) 100 ml @ 2.5 mls/hr TITRATE IV Last administered on 03:13; Admin Dose 5 MLS/HR; Start 08/02/16 at 09:30 Levothyroxine Sodium (Synthroid) 125 mcg DAILY@06 NGT Last administered on 08/14 06:26; Admin Dose 125 MCG; Start 08/08/16 at 06:00 Terbinafine HCl (Lamisil) 250 mg BID NGT Last administered on 08/14/16 08:46; Admin Dose 250 MG; Start 08/08/16 at 21:00; Stop 08/15/16 at 20:59 Calcium Carbonate (Ca Carbonate) 1,250 mg Q12 NGT Last administered on 08:46; Admin Dose 1,250 MG; Start 08/11/16 at 09:00 IV Flush (NS 10 ml) 10 ml PRN PRN IV FLUSH LINE; Start 08/11/16 at 20:00 Hydralazine HCl (Apresoline) 10 mg Q4H PRN IV SBP >160 Last administered on 03:16; Admin Dose 10 MG; Start 08/13/16 at 03:30 Amlodipine Besylate (Norvasc) 5 mg DAILY PO Last administered on 08/14/16 08: 46; Admin Dose 5 MG; Start 08/13/16 at 09:00 Insulin Aspart (Novolog Insulin Pen) NOVOLOG *MODERATE* ALGORI... Q8 SC ; Start 08/13/16 at 14:00 Metronidazole 500 mg 500 mg Q8 NGT Last administered on 08/14/16 06:26; Admin Dose 500 MG; Start 08/13/16 at 14:00 Magnesium Sulfate (Magnesium Sulfate 2 Gm/50 ml) 50 ml @ 25 mls/hr ONCE ONCE IVPB Last administered on 08/14/16 08:46; Admin Dose 25 MLS/HR; Start at 08:30; Stop 08/14/16 at 10:29 KAREN GOMEZ MD Aug 14, 2016 09:59
--- NOTE | 2016-08-14 11:05 | CONS ---
Date/Time of Note Date/Time of Note DATE: 08/14/16 TIME: 11:03 Consultation Date/Type/Reason Admit Date/Time August 01, 2016 at 00:50 Initial Consult Date 08/01/16 Type of Consultation: Pulmonary/critical care Referring Provider: NIKOLE KWON MD, [facility] 24 HR Interval Summary Free Text/Dictation Patient condition remains critical. Failed a weaning trial from ventilator yesterday. Patient also is failing another weaning trial on CPAP mode this morning. Becoming extremely tachypneic. Patient however has remained hemodynamically stable. Remains awake and alert. General exam; middle-aged male, morbidly obese, currently in no distress. Awake. Orally intubated. Exam/Review of Systems Vital Signs Vitals Vital Signs Date Time Temp Pulse Resp B/P Pulse Ox O2 Delivery O2 Flow Rate FiO2 08/14/16 10:45 88 24 131/79 100 08/14/16 10:00 Mechanical Ventilator 08/14/16 08:00 30 08/14/16 08:00 97.7 Intake and Output 08/13/16 08/13/16 08/14/16 15:00 23:00 07:00 Intake Total 740.65 ml 573.35 ml 587 ml Output Total 845 ml 880 ml 905 ml Balance -104.35 ml -306.65 ml -318 ml Exam HEENT exam; supple neck, JVD difficult to see because of short neck. Orally intubated. No neck masses. Bilateral subconjunctival edema is present. Pupils are small bilaterally. No neck masses. No lymphadenopathy. No thyromegaly. Dentition is fair. Pupils are reactive to light bilaterally and equally. Chest examination; diminished but clear vessel. S1-S2 audible, no murmurs. Regular rhythm. Abdomen examination; soft, no organomegaly. Protuberant. Bowel sounds audible. Extremity exam; no peripheral edema. RESEARCH STUDY ASSISTANT examination; patient is awake follows commands and moves all 4 extremities. Results Result Diagram: 08/14/16 0530 08/14/16 0530 Results 24 hrs Laboratory Tests Test 08/13/16 12:26 08/13/16 14:56 08/13/16 21:08 08/14/16 05:20 Lab Scanned Report REFERENCE LAB Bedside Glucose 102 96 120 Test 08/14/16 05:30 08/14/16 10:00 White Blood Count 13.2 H Red Blood Count 2.82 L Hemoglobin 9.1 L Hematocrit 27.2 L Mean Corpuscular Volume 96.5 Mean Corpuscular Hemoglobin 32.3 Mean Corpuscular Hemoglobin Concent 33.5 Red Cell Distribution Width 18.2 H Platelet Count 116 L Mean Platelet Volume 13.9 H Neutrophils % 81.7 H Lymphocytes % 9.7 L Monocytes % 6.7 Eosinophils % 0.2 Basophils % 0.1 Nucleated Red Blood Cells % 0.2 H Neutrophils # 10.8 H Lymphocytes # 1.3 Monocytes # 0.9 Eosinophils # 0.0 Basophils # 0.0 Nucleated Red Blood Cells # 0.0 Sodium Level 140 Potassium Level 3.5 Chloride Level 104 Carbon Dioxide Level 28 Anion Gap 12 Blood Urea Nitrogen 58 H Creatinine 1.85 H Glucose Level 121 Calcium Level 8.8 Phosphorus Level 5.0 H Magnesium Level 1.9 Blood Gas Specimen Source Blood arterial Arterial Blood Date Drawn 08/14/2016 9:50:58 AM Arterial Blood pH (Temp corrected) 7.426 Arterial Blood pCO2 (Temp correct) 33.2 L Arterial Blood pO2 (Temp corrected) 74.8 L Arterial Blood HCO3 21.3 L Arterial Blood Base Excess -2.4 Arterial Blood Oxygen Saturation 93.0 L Stanley Test ACCEPTAB Arterial Blood Gas Puncture Site Left Radial Arterial Blood Carboxyhemoglobin 0.3 Arterial Blood Methemoglobin 0.4 Blood Gas A-a O2 Differential 100.1 H Oxyhemoglobin Percent 92.3 L Total Hemoglobin 10.6 L Blood Gas Temperature 37.0 Blood Gas Actual Respiration Rate 36 Blood Gas Modality VENT - CPAP FiO2 30.0 Blood Gas Low PEEP Setting 5.0 Blood Gas Pressure Support 10 Blood Gas Notified Whom JLD Blood Gas Notified Time 08/14/2016 9:58:39 AM Medications Medications Current Medications Lorazepam (Ativan) 0.5 mg Q6H PRN IV ANXIETY Last administered on 08/07/16t 23: 23; Admin Dose 0.5 MG; Start 08/01/16 at 03:00 Ondansetron HCl (Zofran Inj) 4 mg Q6H PRN IV NAUSEA AND/OR VOMITING; Start at 03:00 Metoclopramide HCl (Reglan) 10 mg Q6H PRN IV NAUSEA AND/OR VOMITING; Start at 03:00 Acetaminophen (Tylenol Tab) 650 mg Q6H PRN PO PAIN LEVEL 1-3 OR FEVER; Start at 03:00 Acetaminophen (Tylenol Supp) 650 mg Q4H PRN [place] PAIN LEVEL 1-3 OR FEVER; Start 08/01/16 at 06:30 Pantoprazole 40 mg 40 mg BID@06,18 IV Last administered on 08/14/16 06:25; Admin Dose 40 MG; Start 08/01/16 at 06:00 Propofol 100 ml @ 3.33 mls/hr Q12H IV Last administered on 08/14/16 10:11; Admin Dose 13.32 MLS/HR; Start 08/01/16 at 09:30 Phenylephrine HCl 40 mg/Dextrose 500 ml @ 0 mls/hr TITRATE IV Last administered on 08/02/16 04:58; Admin Dose 112.5 MLS/HR; Start 08/01/16 at 16:00 Norepinephrine 16 mg/Dextrose 500 ml @ 0 mls/hr TITRATE IV Last administered on 08/06/16 00:10; Admin Dose 30 MLS/HR; Start 08/01/16 at 16:00 Vasopressin 60 unit/Dextrose 60 ml @ 1.2 mls/hr Q12H IV Last administered on 03:55; Admin Dose 2.4 MLS/HR; Start 08/01/16 at 17:30 Epinephrine/ Sodium Chloride (EPINEPHrine/NS) 250 ml @ 3.75 mls/hr TITRATE IV Last administered on 08/01/16 18:50; Admin Dose 3.75 MLS/HR; Start 08/01/16 at 19:30 Eye Lubricant (Artificial Tears Oph) 2 drop QID BOTH EYES Last administered on 08/14/16 08:46; Admin Dose 2 DROP; Start 08/02/16 at 09:00 Miscellaneous Information 1 ea NOTE XX ; Start 08/02/16 at 09:00 Glucose (Glutose) 15 gm Q15M PRN PO DECREASED GLUCOSE; Start 08/02/16 at 09:00 Glucose (Glutose) 22.5 gm Q15M PRN PO DECREASED GLUCOSE; Start 08/02/16 at 09:00 Dextrose (D50w Syringe) 25 ml Q15M PRN IV DECREASED GLUCOSE Last administered on 08/08/16 08:46; Admin Dose 25 ML; Start 08/02/16 at 09:00 Dextrose (D50w Syringe) 50 ml Q15M PRN IV DECREASED GLUCOSE; Start 08/02/16 at 09:00 Glucagon (Glucagen) 1 mg Q15M PRN IM DECREASED GLUCOSE; Start 08/02/16 at 09:00 Glucose 15 gm 15 gm Q15M PRN BUCCAL DECREASED GLUCOSE; Start 08/02/16 at 09:00 Midazolam HCl 50 ml @ 1 mls/hr TITRATE IV Last administered on 08/12/16 12:06 ; Admin Dose 5 MLS/HR; Start 08/02/16 at 09:30 Fentanyl (Sublimaze) 100 ml @ 2.5 mls/hr TITRATE IV Last administered on 03:13; Admin Dose 5 MLS/HR; Start 08/02/16 at 09:30 Levothyroxine Sodium (Synthroid) 125 mcg DAILY@06 NGT Last administered on 08/14 06:26; Admin Dose 125 MCG; Start 08/08/16 at 06:00 Terbinafine HCl (Lamisil) 250 mg BID NGT Last administered on 08/14/16 08:46; Admin Dose 250 MG; Start 08/08/16 at 21:00; Stop 08/15/16 at 20:59 Calcium Carbonate (Ca Carbonate) 1,250 mg Q12 NGT Last administered on 08:46; Admin Dose 1,250 MG; Start 08/11/16 at 09:00 IV Flush (NS 10 ml) 10 ml PRN PRN IV FLUSH LINE; Start 08/11/16 at 20:00 Hydralazine HCl (Apresoline) 10 mg Q4H PRN IV SBP >160 Last administered on 03:16; Admin Dose 10 MG; Start 08/13/16 at 03:30 Amlodipine Besylate (Norvasc) 5 mg DAILY PO Last administered on 08/14/16 08: 46; Admin Dose 5 MG; Start 08/13/16 at 09:00 Insulin Aspart (Novolog Insulin Pen) NOVOLOG *MODERATE* ALGORI... Q8 SC ; Start 08/13/16 at 14:00 Metronidazole (Flagyl) 500 mg Q8 NGT Last administered on 08/14/16 06:26; Admin Dose 500 MG; Start 08/13/16 at 14:00 MIGUEL CHINCHILLA Aug 14, 2016 11:05
--- NOTE | 2016-08-14 12:03 | CONS ---
Date/Time of Note Date/Time of Note DATE: 08/14/16 TIME: 12:01 Assessment/Plan Assessment/Plan Chief Complaint/Hosp Course SUBJECTIVE: No events. On Cpap, awake, looks comfortable, no fevers. INDWELLINGS: Endotracheal tube, PICC, right femoral Deni catheter, NGT, Silver. ANTIMICROBIALS: Flagyl. MICROBIOLOGY: Blood cultures have been negative. Urine culture negative. Stool for C. diff negative. PHYSICAL EXAMINATION: GENERAL: Chronically ill-appearing, middle-aged man who is intubated and sedated, in no distress. HEENT: Head atraumatic, normocephalic. Sclerae anicteric. Buccal mucosa dry. NECK: Supple, trachea midline. CHEST: Rise symmetrical. Breath sounds diminished to bases. HEART: S1, S2. ABDOMEN: Distended, soft. Bowel tones hypoactive. EXTREMITIES: Bilateral edema. ASSESSMENT: 1. S/p sepsis with shock 2. Acute respiratory failure. 3. Acute kidney injury, started on hemodialysis. 4. Status post cardiopulmonary arrest. 5. Encephalopathy. 6. History of ETOH abuse. 7. Diarrhea===> emp Flagyl 8. Leukocytosis===> resolving, off steroids PLAN: The patient remains stable, still with loos stools, continue Flagyl, follow recommendations of consultants and reculture prn. DW staff Problems: Consultation Date/Type/Reason Admit Date/Time August 01, 2016 at 00:50 Initial Consult Date 08/01/16 Type of Consultation: id Referring Provider: NIKOLE KWON [facility], [facility] Exam/Review of Systems Vital Signs Vitals Vital Signs Date Time Temp Pulse Resp B/P Pulse Ox O2 Delivery O2 Flow Rate FiO2 08/14/16 11:30 97.6 84 24 117/85 100 08/14/16 11:00 Mechanical Ventilator 08/14/16 10:00 30 Intake and Output 08/13/16 08/13/16 08/14/16 15:00 23:00 07:00 Intake Total 740.65 ml 573.35 ml 587 ml Output Total 845 ml 880 ml 905 ml Balance -104.35 ml -306.65 ml -318 ml Results Result Diagram: 08/14/16 0530 08/14/16 0530 Results 24 hrs Laboratory Tests Test 08/13/16 12:26 08/13/16 14:56 08/13/16 21:08 08/14/16 05:20 Lab Scanned Report REFERENCE LAB Bedside Glucose 102 96 120 Test 08/14/16 05:30 08/14/16 10:00 White Blood Count 13.2 H Red Blood Count 2.82 L Hemoglobin 9.1 L Hematocrit 27.2 L Mean Corpuscular Volume 96.5 Mean Corpuscular Hemoglobin 32.3 Mean Corpuscular Hemoglobin Concent 33.5 Red Cell Distribution Width 18.2 H Platelet Count 116 L Mean Platelet Volume 13.9 H Neutrophils % 81.7 H Lymphocytes % 9.7 L Monocytes % 6.7 Eosinophils % 0.2 Basophils % 0.1 Nucleated Red Blood Cells % 0.2 H Neutrophils # 10.8 H Lymphocytes # 1.3 Monocytes # 0.9 Eosinophils # 0.0 Basophils # 0.0 Nucleated Red Blood Cells # 0.0 Sodium Level 140 Potassium Level 3.5 Chloride Level 104 Carbon Dioxide Level 28 Anion Gap 12 Blood Urea Nitrogen 58 H Creatinine 1.85 H Glucose Level 121 Calcium Level 8.8 Phosphorus Level 5.0 H Magnesium Level 1.9 Blood Gas Specimen Source Blood arterial Arterial Blood Date Drawn 08/14/2016 9:50:58 AM Arterial Blood pH (Temp corrected) 7.426 Arterial Blood pCO2 (Temp correct) 33.2 L Arterial Blood pO2 (Temp corrected) 74.8 L Arterial Blood HCO3 21.3 L Arterial Blood Base Excess -2.4 Arterial Blood Oxygen Saturation 93.0 L Stanley Test ACCEPTAB Arterial Blood Gas Puncture Site Left Radial Arterial Blood Carboxyhemoglobin 0.3 Arterial Blood Methemoglobin 0.4 Blood Gas A-a O2 Differential 100.1 H Oxyhemoglobin Percent 92.3 L Total Hemoglobin 10.6 L Blood Gas Temperature 37.0 Blood Gas Actual Respiration Rate 36 Blood Gas Modality VENT - CPAP FiO2 30.0 Blood Gas Low PEEP Setting 5.0 Blood Gas Pressure Support 10 Blood Gas Notified Whom JLD Blood Gas Notified Time 08/14/2016 9:58:39 AM Medications Medications Current Medications Lorazepam (Ativan) 0.5 mg Q6H PRN IV ANXIETY Last administered on 08/07/16t 23: 23; Admin Dose 0.5 MG; Start 08/01/16 at 03:00 Ondansetron HCl (Zofran Inj) 4 mg Q6H PRN IV NAUSEA AND/OR VOMITING; Start at 03:00 Metoclopramide HCl (Reglan) 10 mg Q6H PRN IV NAUSEA AND/OR VOMITING; Start at 03:00 Acetaminophen (Tylenol Tab) 650 mg Q6H PRN PO PAIN LEVEL 1-3 OR FEVER; Start at 03:00 Acetaminophen (Tylenol Supp) 650 mg Q4H PRN [place] PAIN LEVEL 1-3 OR FEVER; Start 08/01/16 at 06:30 Pantoprazole 40 mg 40 mg BID@06,18 IV Last administered on 08/14/16 06:25; Admin Dose 40 MG; Start 08/01/16 at 06:00 Propofol 100 ml @ 3.33 mls/hr Q12H IV Last administered on 08/14/16 10:11; Admin Dose 13.32 MLS/HR; Start 08/01/16 at 09:30 Phenylephrine HCl 40 mg/Dextrose 500 ml @ 0 mls/hr TITRATE IV Last administered on 08/02/16 04:58; Admin Dose 112.5 MLS/HR; Start 08/01/16 at 16:00 Norepinephrine 16 mg/Dextrose 500 ml @ 0 mls/hr TITRATE IV Last administered on 08/06/16 00:10; Admin Dose 30 MLS/HR; Start 08/01/16 at 16:00 Vasopressin 60 unit/Dextrose 60 ml @ 1.2 mls/hr Q12H IV Last administered on 03:55; Admin Dose 2.4 MLS/HR; Start 08/01/16 at 17:30 Epinephrine/ Sodium Chloride (EPINEPHrine/NS) 250 ml @ 3.75 mls/hr TITRATE IV Last administered on 08/01/16 18:50; Admin Dose 3.75 MLS/HR; Start 08/01/16 at 19:30 Eye Lubricant (Artificial Tears Oph) 2 drop QID BOTH EYES Last administered on 08/14/16 08:46; Admin Dose 2 DROP; Start 08/02/16 at 09:00 Miscellaneous Information 1 ea NOTE XX ; Start 08/02/16 at 09:00 Glucose (Glutose) 15 gm Q15M PRN PO DECREASED GLUCOSE; Start 08/02/16 at 09:00 Glucose (Glutose) 22.5 gm Q15M PRN PO DECREASED GLUCOSE; Start 08/02/16 at 09:00 Dextrose (D50w Syringe) 25 ml Q15M PRN IV DECREASED GLUCOSE Last administered on 08/08/16 08:46; Admin Dose 25 ML; Start 08/02/16 at 09:00 Dextrose (D50w Syringe) 50 ml Q15M PRN IV DECREASED GLUCOSE; Start 08/02/16 at 09:00 Glucagon (Glucagen) 1 mg Q15M PRN IM DECREASED GLUCOSE; Start 08/02/16 at 09:00 Glucose 15 gm 15 gm Q15M PRN BUCCAL DECREASED GLUCOSE; Start 08/02/16 at 09:00 Midazolam HCl 50 ml @ 1 mls/hr TITRATE IV Last administered on 08/12/16 12:06 ; Admin Dose 5 MLS/HR; Start 08/02/16 at 09:30 Fentanyl (Sublimaze) 100 ml @ 2.5 mls/hr TITRATE IV Last administered on 03:13; Admin Dose 5 MLS/HR; Start 08/02/16 at 09:30 Levothyroxine Sodium (Synthroid) 125 mcg DAILY@06 NGT Last administered on 08/14 06:26; Admin Dose 125 MCG; Start 08/08/16 at 06:00 Terbinafine HCl (Lamisil) 250 mg BID NGT Last administered on 08/14/16 08:46; Admin Dose 250 MG; Start 08/08/16 at 21:00; Stop 08/15/16 at 20:59 Calcium Carbonate (Ca Carbonate) 1,250 mg Q12 NGT Last administered on 08:46; Admin Dose 1,250 MG; Start 08/11/16 at 09:00 IV Flush (NS 10 ml) 10 ml PRN PRN IV FLUSH LINE; Start 08/11/16 at 20:00 Hydralazine HCl (Apresoline) 10 mg Q4H PRN IV SBP >160 Last administered on 03:16; Admin Dose 10 MG; Start 08/13/16 at 03:30 Amlodipine Besylate (Norvasc) 5 mg DAILY PO Last administered on 08/14/16 08: 46; Admin Dose 5 MG; Start 08/13/16 at 09:00 Insulin Aspart (Novolog Insulin Pen) NOVOLOG *MODERATE* ALGORI... Q8 SC ; Start 08/13/16 at 14:00 Metronidazole (Flagyl) 500 mg Q8 NGT Last administered on 08/14/16t 06:26; Admin Dose 500 MG; Start 08/13/16 at 14:00 RADHA ESCALANTE NP Aug 14, 2016 12:02
--- NOTE | 2016-08-14 13:00 | CONS ---
Date/Time of Note Date/Time of Note DATE: 08/14/16 TIME: 12:59 Assessment/Plan Assessment/Plan Chief Complaint/Hosp Course 60-year-old right-handed -[place] gentleman normally cared for at the [facility]. He was admitted to the hospital but it had cardiac arrest in the hospital. Please note that his picture actually looked a bit like adrenal insufficiency except that he has a serum cortisol level of 44 prior to his arrest. He had a TSH of 21 with a low free T4 and a low T3. Patient is intubated and unable to give a history although he is able to look and follows rudimentary commands. At this time many of his metabolic abnormalities have improved. Problems: (1) Hypothyroidism Status: Chronic Comment: On replacement dosing labs tomorrow Qualifiers: Hypothyroidism type: acquired Qualified Code: E03.9 - Acquired hypothyroidism (2) Hyperglycemia Status: Acute Comment: Resolved. Continue observation. (3) Vomiting and diarrhea Status: Acute Comment: As per infectious disease. Consultation Date/Type/Reason Admit Date/Time August 01, 2016 at 00:50 Initial Consult Date 08/01/16 Type of Consultation: Endocrinology Reason for Consultation Hypothyroidism; steroid-induced hyperglycemia; severe sepsis; calcium disturbance Referring Provider: NIKOLE KWON MD, [facility] 24 HR Interval Summary Free Text/Dictation Patient is sedated after CPAP trial earlier today. Subjective hx not possible: pt non-verbal Exam/Review of Systems Vital Signs Vitals Vital Signs Date Time Temp Pulse Resp B/P Pulse Ox O2 Delivery O2 Flow Rate FiO2 08/14/16 12:00 82 08/14/16 11:30 97.6 24 117/85 100 08/14/16 11:20 30 08/14/16 11:00 Mechanical Ventilator Intake and Output 08/13/16 08/13/16 08/14/16 15:00 23:00 07:00 Intake Total 740.65 ml 573.35 ml 587 ml Output Total 845 ml 880 ml 905 ml Balance -104.35 ml -306.65 ml -318 ml Exam Constitutional: non-verbal ENMT: intubated Neck: non-tender, supple Respiratory: clear to auscultation, normal air movement Cardiovascular: nl pulses, regular rate and rhythm Results Result Diagram: 08/14/1630 08/14/1630 Results 24 hrs Laboratory Tests Test 08/13/16 14:56 08/13/16 21:08 08/14/16 05:20 08/14/16 05:30 Bedside Glucose 102 96 120 White Blood Count 13.2 H Red Blood Count 2.82 L Hemoglobin 9.1 L Hematocrit 27.2 L Mean Corpuscular Volume 96.5 Mean Corpuscular Hemoglobin 32.3 Mean Corpuscular Hemoglobin Concent 33.5 Red Cell Distribution Width 18.2 H Platelet Count 116 L Mean Platelet Volume 13.9 H Neutrophils % 81.7 H Lymphocytes % 9.7 L Monocytes % 6.7 Eosinophils % 0.2 Basophils % 0.1 Nucleated Red Blood Cells % 0.2 H Neutrophils # 10.8 H Lymphocytes # 1.3 Monocytes # 0.9 Eosinophils # 0.0 Basophils # 0.0 Nucleated Red Blood Cells # 0.0 Sodium Level 140 Potassium Level 3.5 Chloride Level 104 Carbon Dioxide Level 28 Anion Gap 12 Blood Urea Nitrogen 58 H Creatinine 1.85 H Glucose Level 121 Calcium Level 8.8 Phosphorus Level 5.0 H Magnesium Level 1.9 Test 08/14/16 10:00 Blood Gas Specimen Source Blood arterial Arterial Blood Date Drawn 08/14/2016 9:50:58 AM Arterial Blood pH (Temp corrected) 7.426 Arterial Blood pCO2 (Temp correct) 33.2 L Arterial Blood pO2 (Temp corrected) 74.8 L Arterial Blood HCO3 21.3 L Arterial Blood Base Excess -2.4 Arterial Blood Oxygen Saturation 93.0 L Stanley Test ACCEPTAB Arterial Blood Gas Puncture Site Left Radial Arterial Blood Carboxyhemoglobin 0.3 Arterial Blood Methemoglobin 0.4 Blood Gas A-a O2 Differential 100.1 H Oxyhemoglobin Percent 92.3 L Total Hemoglobin 10.6 L Blood Gas Temperature 37.0 Blood Gas Actual Respiration Rate 36 Blood Gas Modality VENT - CPAP FiO2 30.0 Blood Gas Low PEEP Setting 5.0 Blood Gas Pressure Support 10 Blood Gas Notified Whom JLD Blood Gas Notified Time 08/14/2016 9:58:39 AM Medications Medications Current Medications Lorazepam (Ativan) 0.5 mg Q6H PRN IV ANXIETY Last administered on 08/07/16t 23: 23; Admin Dose 0.5 MG; Start 08/01/16 at 03:00 Ondansetron HCl (Zofran Inj) 4 mg Q6H PRN IV NAUSEA AND/OR VOMITING; Start at 03:00 Metoclopramide HCl (Reglan) 10 mg Q6H PRN IV NAUSEA AND/OR VOMITING; Start at 03:00 Acetaminophen (Tylenol Tab) 650 mg Q6H PRN PO PAIN LEVEL 1-3 OR FEVER; Start at 03:00 Acetaminophen (Tylenol Supp) 650 mg Q4H PRN [place] PAIN LEVEL 1-3 OR FEVER; Start 08/01/16 at 06:30 Pantoprazole 40 mg 40 mg BID@06,18 IV Last administered on 08/14/16 06:25; Admin Dose 40 MG; Start 08/01/16 at 06:00 Propofol 100 ml @ 3.33 mls/hr Q12H IV Last administered on 08/14/16 10:11; Admin Dose 13.32 MLS/HR; Start 08/01/16 at 09:30 Phenylephrine HCl 40 mg/Dextrose 500 ml @ 0 mls/hr TITRATE IV Last administered on 08/02/16 04:58; Admin Dose 112.5 MLS/HR; Start 08/01/16 at 16:00 Norepinephrine 16 mg/Dextrose 500 ml @ 0 mls/hr TITRATE IV Last administered on 08/06/16 00:10; Admin Dose 30 MLS/HR; Start 08/01/16 at 16:00 Vasopressin 60 unit/Dextrose 60 ml @ 1.2 mls/hr Q12H IV Last administered on 03:55; Admin Dose 2.4 MLS/HR; Start 08/01/16 at 17:30 Epinephrine/ Sodium Chloride (EPINEPHrine/NS) 250 ml @ 3.75 mls/hr TITRATE IV Last administered on 08/01/16 18:50; Admin Dose 3.75 MLS/HR; Start 08/01/16 at 19:30 Eye Lubricant (Artificial Tears Oph) 2 drop QID BOTH EYES Last administered on 08/14/16 08:46; Admin Dose 2 DROP; Start 08/02/16 at 09:00 Miscellaneous Information 1 ea NOTE XX ; Start 08/02/16 at 09:00 Glucose (Glutose) 15 gm Q15M PRN PO DECREASED GLUCOSE; Start 08/02/16 at 09:00 Glucose (Glutose) 22.5 gm Q15M PRN PO DECREASED GLUCOSE; Start 08/02/16 at 09:00 Dextrose (D50w Syringe) 25 ml Q15M PRN IV DECREASED GLUCOSE Last administered on 08/08/16 08:46; Admin Dose 25 ML; Start 08/02/16 at 09:00 Dextrose (D50w Syringe) 50 ml Q15M PRN IV DECREASED GLUCOSE; Start 08/02/16 at 09:00 Glucagon (Glucagen) 1 mg Q15M PRN IM DECREASED GLUCOSE; Start 08/02/16 at 09:00 Glucose 15 gm 15 gm Q15M PRN BUCCAL DECREASED GLUCOSE; Start 08/02/16 at 09:00 Midazolam HCl 50 ml @ 1 mls/hr TITRATE IV Last administered on 08/12/16 12:06 ; Admin Dose 5 MLS/HR; Start 08/02/16 at 09:30 Fentanyl (Sublimaze) 100 ml @ 2.5 mls/hr TITRATE IV Last administered on 03:13; Admin Dose 5 MLS/HR; Start 08/02/16 at 09:30 Levothyroxine Sodium (Synthroid) 125 mcg DAILY@06 NGT Last administered on 08/14 06:26; Admin Dose 125 MCG; Start 08/08/16 at 06:00 Terbinafine HCl (Lamisil) 250 mg BID NGT Last administered on 08/14/16 08:46; Admin Dose 250 MG; Start 08/08/16 at 21:00; Stop 08/15/16 at 20:59 Calcium Carbonate (Ca Carbonate) 1,250 mg Q12 NGT Last administered on 08:46; Admin Dose 1,250 MG; Start 08/11/16 at 09:00 IV Flush (NS 10 ml) 10 ml PRN PRN IV FLUSH LINE; Start 08/11/16 at 20:00 Hydralazine HCl (Apresoline) 10 mg Q4H PRN IV SBP >160 Last administered on 03:16; Admin Dose 10 MG; Start 08/13/16 at 03:30 Amlodipine Besylate (Norvasc) 5 mg DAILY PO Last administered on 08/14/16 08: 46; Admin Dose 5 MG; Start 08/13/16 at 09:00 Insulin Aspart (Novolog Insulin Pen) NOVOLOG *MODERATE* ALGORI... Q8 SC ; Start 08/13/16 at 14:00 Metronidazole (Flagyl) 500 mg Q8 NGT Last administered on 08/14/16t 06:26; Admin Dose 500 MG; Start 08/13/16 at 14:00 ERIN MARTÍNEZ MD Aug 14, 2016 13:00
[2016-08-15] VITALS (39 sets, daily range): BP systolic 116–168; BP diastolic 66–106; PULSE 55–93; RESP 16–39
[2016-08-15] MEDS: PROPOFOL 100 ML IV SCH ×2 (02:34→05:57)
[2016-08-15] MEDS: LEVOTHYROXINE 125 MCG TAB NGT SCH (05:34)
[2016-08-15] MEDS: metroNIDAZOLE 500 MG TAB NGT SCH ×2 (05:34→13:05)
[2016-08-15] MEDS: FUROSEMIDE 40 MG INJ IV SCH ×2 (05:34→17:07)
[2016-08-15] MEDS: PANTOPRAZOLE 40 MG INJ IV SCH (05:34)
[2016-08-15] MEDS: INSULIN ASPART [NOVOLOG] 3 ML PEN SC SCH ×3 (05:41→22:00)
[2016-08-15 06:16] LABS: ADD SCAN DIFF NO
[2016-08-15] MEDS: FENTAnyl (DRIP) 1000 mcg/100mL 100 ML IV SCH (06:26)
[2016-08-15 06:31] LABS: ABNORMAL IP MESSAGE 1; BASOPHILS % 0.1 % (0.0-2.0); EOSINOPHILS % 0.2 % (0.0-7.0); HEMATOCRIT 27.8 % (42.0-52.0); HEMOGLOBIN 9.2 g/dl (14.0-18.0); LYMPHOCYTES # 1.4 10^3/ul (0.8-2.9); LYMPHOCYTES % 12.5 % (15.0-51.0); MEAN CORPUSCULAR HEMOGLOBIN 32.1 pg (29.0-33.0); MEAN CORPUSCULAR HGB CONC 33.1 g/dl (32.0-37.0); MEAN CORPUSCULAR VOLUME 96.9 fl (82.0-101.0); MEAN PLATELET VOLUME 13.4 fl (7.4-10.4); MONOCYTE # 0.9 10^3/ul (0.3-0.9); MONOCYTES % 7.8 % (0.0-11.0); NEUTROPHILS % 78.2 % (39.0-77.0); NUCLEATED RED BLOOD CELLS% 0.2 /100WBC (0.0-0.0); PLATELET COUNT 138 10^3/UL (140-415); RED BLOOD COUNT 2.87 10^6/ul (4.70-6.10); WHITE BLOOD COUNT 11.5 10^3/ul (4.8-10.8)
[2016-08-15 07:22] LABS: CALCIUM 9.3 mg/dl (8.4-10.2); CREATININE 1.73 mg/dl (0.61-1.24); MAGNESIUM 2.3 mg/dl (1.7-2.5); PHOSPHORUS 4.9 mg/dl (2.5-4.9); POTASSIUM 3.7 mmol/L (3.5-5.1)
[2016-08-15] MEDS: CA CARBONATE (250 MG/ML) 5ML CUP NGT SCH ×2 (08:26→21:05)
[2016-08-15] MEDS: TERBINAFINE 250 MG TAB NGT SCH (08:26)
[2016-08-15] MEDS: AMLODIPINE 5 MG TAB PO SCH (08:27)
--- NOTE | 2016-08-15 08:27 | CONS ---
Date/Time of Note Date/Time of Note DATE: 08/15/16 TIME: 08:25 Assessment/Plan Assessment/Plan Chief Complaint/Hosp Course PEA cardiac arrest: secondary to severe metabolic acidosis. No VT/VF or EKG changes to suggest primary cardiac etiology. Trops ok, EF preserved. Acute respiratory failure: intubated during code.Likely ARDS and some component of fluid overload Currently being weaned Severe metabolic acidosis: likely was the culprit for the arrest. Resolved Shock: ?septic.Off pressors Acute renal failure: unclear etiology. Was on intermittent HD. Good UOP. HD stopped Hypoglycemia Hypothyroidism Diarrhea/n/v/colitis HTN: resolved -amlodipine 5mg -vent management per pulm Problems: Consultation Date/Type/Reason Admit Date/Time August 01, 2016 at 00:50 Initial Consult Date 08/01/16 Type of Consultation: Cardiology Referring Provider: NIKOLE KWON MD, [facility] 24 HR Interval Summary Free Text/Dictation Failed weaning again. Will retry today. Good UOP. Cr improving. HD stopped. Exam/Review of Systems Vital Signs Vitals Vital Signs Date Time Temp Pulse Resp B/P Pulse Ox O2 Delivery O2 Flow Rate FiO2 08/15/16 08:00 97.7 70 24 134/80 96 Mechanical Ventilator 08/15/16 08:00 30 Intake and Output 08/14/16 08/14/16 08/15/16 15:00 23:00 07:00 Intake Total 606.00 ml 655.5 ml 520.52 ml Output Total 1210 ml 750 ml 600 ml Balance -604.00 ml -94.5 ml -79.48 ml Exam Constitutional: No alert (sedated) Head: atraumatic, normocephalic ENMT: intubated Neck: No jvd (difficult ) Respiratory: diminished breath sounds, No clear to auscultation Cardiovascular: edema (1+), regular rate and rhythm, No systolic murmur Gastrointestinal: non-tender, soft Neurological: No nl mental status Results Result Diagram: 08/15/16 0400 08/15/16 0400 Results 24 hrs Laboratory Tests Test 08/14/16 10:00 08/14/16 13:19 08/14/16 21:32 08/15/16 04:00 Blood Gas Specimen Source Blood arterial Arterial Blood Date Drawn 08/14/2016 9:50:58 AM Arterial Blood pH (Temp corrected) 7.426 Arterial Blood pCO2 (Temp correct) 33.2 L Arterial Blood pO2 (Temp corrected) 74.8 L Arterial Blood HCO3 21.3 L Arterial Blood Base Excess -2.4 Arterial Blood Oxygen Saturation 93.0 L Stanley Test ACCEPTAB Arterial Blood Gas Puncture Site Left Radial Arterial Blood Carboxyhemoglobin 0.3 Arterial Blood Methemoglobin 0.4 Blood Gas A-a O2 Differential 100.1 H Oxyhemoglobin Percent 92.3 L Total Hemoglobin 10.6 L Blood Gas Temperature 37.0 Blood Gas Actual Respiration Rate 36 Blood Gas Modality VENT - CPAP FiO2 30.0 Blood Gas Low PEEP Setting 5.0 Blood Gas Pressure Support 10 Blood Gas Notified Whom JLD Blood Gas Notified Time 08/14/2016 9:58:39 AM Bedside Glucose 88 96 White Blood Count 11.5 H Red Blood Count 2.87 L Hemoglobin 9.2 L Hematocrit 27.8 L Mean Corpuscular Volume 96.9 Mean Corpuscular Hemoglobin 32.1 Mean Corpuscular Hemoglobin Concent 33.1 Red Cell Distribution Width 18.0 H Platelet Count 138 L Mean Platelet Volume 13.4 H Neutrophils % 78.2 H Lymphocytes % 12.5 L Monocytes % 7.8 Eosinophils % 0.2 Basophils % 0.1 Nucleated Red Blood Cells % 0.2 H Neutrophils # 9.0 H Lymphocytes # 1.4 Monocytes # 0.9 Eosinophils # 0.0 Basophils # 0.0 Nucleated Red Blood Cells # 0.0 Sodium Level 141 Potassium Level 3.7 Chloride Level 105 Carbon Dioxide Level 29 Anion Gap 11 Blood Urea Nitrogen 52 H Creatinine 1.73 H Glucose Level 92 Calcium Level 9.3 Phosphorus Level 4.9 Magnesium Level 2.3 Test 08/15/16 05:37 Bedside Glucose 104 Medications Medications Current Medications Lorazepam (Ativan) 0.5 mg Q6H PRN IV ANXIETY Last administered on 08/07/16t 23: 23; Admin Dose 0.5 MG; Start 08/01/16 at 03:00 Ondansetron HCl (Zofran Inj) 4 mg Q6H PRN IV NAUSEA AND/OR VOMITING; Start at 03:00 Metoclopramide HCl (Reglan) 10 mg Q6H PRN IV NAUSEA AND/OR VOMITING; Start at 03:00 Acetaminophen (Tylenol Tab) 650 mg Q6H PRN PO PAIN LEVEL 1-3 OR FEVER; Start at 03:00 Acetaminophen (Tylenol Supp) 650 mg Q4H PRN [place] PAIN LEVEL 1-3 OR FEVER; Start 08/01/16 at 06:30 Pantoprazole 40 mg 40 mg BID@06,18 IV Last administered on 08/15/16 05:34; Admin Dose 40 MG; Start 08/01/16 at 06:00 Propofol 100 ml @ 3.33 mls/hr Q12H IV Last administered on 08/15/16 05:57; Admin Dose 23.31 MLS/HR; Start 08/01/16 at 09:30 Phenylephrine HCl 40 mg/Dextrose 500 ml @ 0 mls/hr TITRATE IV Last administered on 08/02/16 04:58; Admin Dose 112.5 MLS/HR; Start 08/01/16 at 16:00 Norepinephrine 16 mg/Dextrose 500 ml @ 0 mls/hr TITRATE IV Last administered on 08/06/16 00:10; Admin Dose 30 MLS/HR; Start 08/01/16 at 16:00 Vasopressin 60 unit/Dextrose 60 ml @ 1.2 mls/hr Q12H IV Last administered on 03:55; Admin Dose 2.4 MLS/HR; Start 08/01/16 at 17:30 Epinephrine/ Sodium Chloride (EPINEPHrine/NS) 250 ml @ 3.75 mls/hr TITRATE IV Last administered on 08/01/16 18:50; Admin Dose 3.75 MLS/HR; Start 08/01/16 at 19:30 Eye Lubricant (Artificial Tears Oph) 2 drop QID BOTH EYES Last administered on 08/14/16 21:31; Admin Dose 2 DROP; Start 08/02/16 at 09:00 Miscellaneous Information 1 ea NOTE XX ; Start 08/02/16 at 09:00 Glucose (Glutose) 15 gm Q15M PRN PO DECREASED GLUCOSE; Start 08/02/16 at 09:00 Glucose (Glutose) 22.5 gm Q15M PRN PO DECREASED GLUCOSE; Start 08/02/16 at 09:00 Dextrose (D50w Syringe) 25 ml Q15M PRN IV DECREASED GLUCOSE Last administered on 08/08/16 08:46; Admin Dose 25 ML; Start 08/02/16 at 09:00 Dextrose (D50w Syringe) 50 ml Q15M PRN IV DECREASED GLUCOSE; Start 08/02/16 at 09:00 Glucagon (Glucagen) 1 mg Q15M PRN IM DECREASED GLUCOSE; Start 08/02/16 at 09:00 Glucose 15 gm 15 gm Q15M PRN BUCCAL DECREASED GLUCOSE; Start 08/02/16 at 09:00 Midazolam HCl 50 ml @ 1 mls/hr TITRATE IV Last administered on 08/12/16 12:06 ; Admin Dose 5 MLS/HR; Start 08/02/16 at 09:30 Fentanyl (Sublimaze) 100 ml @ 2.5 mls/hr TITRATE IV Last administered on 06:26; Admin Dose 7.5 MLS/HR; Start 08/02/16 at 09:30 Levothyroxine Sodium (Synthroid) 125 mcg DAILY@06 NGT Last administered on 08/15 05:34; Admin Dose 125 MCG; Start 08/08/16 at 06:00 Terbinafine HCl (Lamisil) 250 mg BID NGT Last administered on 08/14/16 21:31; Admin Dose 250 MG; Start 08/08/16 at 21:00; Stop 08/15/16 at 20:59 Calcium Carbonate (Ca Carbonate) 1,250 mg Q12 NGT Last administered on 21:31; Admin Dose 1,250 MG; Start 08/11/16 at 09:00 IV Flush (NS 10 ml) 10 ml PRN PRN IV FLUSH LINE; Start 08/11/16 at 20:00 Hydralazine HCl (Apresoline) 10 mg Q4H PRN IV SBP >160 Last administered on 03:16; Admin Dose 10 MG; Start 08/13/16 at 03:30 Amlodipine Besylate (Norvasc) 5 mg DAILY PO Last administered on 08/14/16 08: 46; Admin Dose 5 MG; Start 08/13/16 at 09:00 Insulin Aspart (Novolog Insulin Pen) NOVOLOG *MODERATE* ALGORI... Q8 SC ; Start 08/13/16 at 14:00 Metronidazole (Flagyl) 500 mg Q8 NGT Last administered on 08/15/16 05:34; Admin Dose 500 MG; Start 08/13/16 at 14:00 SEPIDEH HAN Aug 15, 2016 08:27
[2016-08-15] MEDS: ARTIFICIAL TEARS 15 ML OPH BOTH EYES SCH ×4 (08:58→21:05)
--- NOTE | 2016-08-15 09:53 | PN ---
Date/Time of Note Date/Time of Note DATE: 08/15/16 TIME: 09:41 Assessment/Plan VTE Prophylaxis VTE Prophylaxis Intervention: heparin Lines/Catheters IV [facility] PICC Line Central line still needed: Yes Urinary Cath still in place: Yes Reason Cath still needed: other (indicate) Assessment/Plan Assessment/Plan 60-year-old male who had presented to the emergency room with diarrhea and vomiting and was found to be in severe renal failure but suffered a cardiac arrest while in the emergency room. He is now managed as follows: 1. Status post cardiac arrest with ROSC 2/2 severe metabolic acidosis from #4 2. Acute encephalopathy secondary to #1 [toxic metabolic]: improved 3. Ventilator dependent respiratory failure with probable ARDS and pulmonary edema per pulmonary: improving 4. Severe acute renal failure that required HD / now off HD with good UOP > Stable CKD 5. S/p Severe Sepsis with septic shock and lactic acidosis now off pressors 6. Newly diagnosed Hypothyroidism 7. Chronic Alcohol use and abuse 8. Anemia likely secondary to chronic disease but a component of malnutrition from chronic alcohol abuse 9. Enterocolitis: resolved 10. Thrombocytopenia 2/2 Sepsis: resolved 11. Severe fatty liver: transaminitis ahd hyperbilirubinemia resolved 12. s/p Bilateral pneumonia likely aspiration 13. S/p Oagulase neg Staph UTI 14. Positive stool occult blood on twice daily PPI 15. S/p Steroid-induced hyperglycemia: resolved ? 16. Hypertension: still with suboptimal control PLAN: * Possible extubation today * Continue tube feeds * Resume Heparin and hold for platelet count 100 or less * Continue all other current supportive care / serial lab monitoring Prophylaxis : Heparin / PPI Prognosis : Guarded CC time : 40mins Subjective 24 Hr Interval Summary Free Text/Dictation Patient unless and lethargic. Seems communicative. Currently on CPAP and is doing well per respiratory therapy report. Staff hopeful for extubation today. No overnight issues. Exam/Review of Systems Vital Signs Vitals Vital Signs Date Time Temp Pulse Resp B/P Pulse Ox O2 Delivery O2 Flow Rate FiO2 08/15/16 09:00 75 24 158/86 100 Mechanical Ventilator 08/15/16 08:53 30 08/15/16 08:00 97.7 Intake and Output 08/14/16 08/14/16 08/15/16 15:00 23:00 07:00 Intake Total 606.00 ml 655.5 ml 520.52 ml Output Total 1210 ml 750 ml 600 ml Balance -604.00 ml -94.5 ml -79.48 ml Exam General: Morbidly obese, the patient is intubated, Not in acute distress. alert off sedation, moves all extremities per report HEENT: Atraumatic, normocephalic. The pupils are equal and symmetric Neck: Supple Chest: Normal expansion of the thorax during inspiration Lungs: Decreased breath sounds bilateral lower lung field, positive crackles Heart: Normal S1-S2, Regular rhythm and rate. Abdomen: Soft , nontender, nondistended , bowel sounds are present. Extremities: Normal to inspection, +1 edema no cyanosis, poor foot and nail condition Neurologic: The patient is awake, alert able to follow simple commands Results Result Diagram: 08/15/16 0400 08/15/16 0400 Results 24 hrs Laboratory Tests Test 08/14/16 10:00 08/14/16 13:19 08/14/16 21:32 08/15/16 04:00 Blood Gas Specimen Source Blood arterial Arterial Blood Date Drawn 08/14/2016 9:50:58 AM Arterial Blood pH (Temp corrected) 7.426 Arterial Blood pCO2 (Temp correct) 33.2 L Arterial Blood pO2 (Temp corrected) 74.8 L Arterial Blood HCO3 21.3 L Arterial Blood Base Excess -2.4 Arterial Blood Oxygen Saturation 93.0 L Stanley Test ACCEPTAB Arterial Blood Gas Puncture Site Left Radial Arterial Blood Carboxyhemoglobin 0.3 Arterial Blood Methemoglobin 0.4 Blood Gas A-a O2 Differential 100.1 H Oxyhemoglobin Percent 92.3 L Total Hemoglobin 10.6 L Blood Gas Temperature 37.0 Blood Gas Actual Respiration Rate 36 Blood Gas Modality VENT - CPAP FiO2 30.0 Blood Gas Low PEEP Setting 5.0 Blood Gas Pressure Support 10 Blood Gas Notified Whom JLD Blood Gas Notified Time 08/14/2016 9:58:39 AM Bedside Glucose 88 96 White Blood Count 11.5 H Red Blood Count 2.87 L Hemoglobin 9.2 L Hematocrit 27.8 L Mean Corpuscular Volume 96.9 Mean Corpuscular Hemoglobin 32.1 Mean Corpuscular Hemoglobin Concent 33.1 Red Cell Distribution Width 18.0 H Platelet Count 138 L Mean Platelet Volume 13.4 H Neutrophils % 78.2 H Lymphocytes % 12.5 L Monocytes % 7.8 Eosinophils % 0.2 Basophils % 0.1 Nucleated Red Blood Cells % 0.2 H Neutrophils # 9.0 H Lymphocytes # 1.4 Monocytes # 0.9 Eosinophils # 0.0 Basophils # 0.0 Nucleated Red Blood Cells # 0.0 Sodium Level 141 Potassium Level 3.7 Chloride Level 105 Carbon Dioxide Level 29 Anion Gap 11 Blood Urea Nitrogen 52 H Creatinine 1.73 H Glucose Level 92 Calcium Level 9.3 Phosphorus Level 4.9 Magnesium Level 2.3 Test 08/15/16 05:37 Bedside Glucose 104 Medications Medications Current Medications Lorazepam (Ativan) 0.5 mg Q6H PRN IV ANXIETY Last administered on 08/07/16 23: 23; Admin Dose 0.5 MG; Start 08/01/16 at 03:00 Ondansetron HCl (Zofran Inj) 4 mg Q6H PRN IV NAUSEA AND/OR VOMITING; Start at 03:00 Metoclopramide HCl (Reglan) 10 mg Q6H PRN IV NAUSEA AND/OR VOMITING; Start at 03:00 Acetaminophen (Tylenol Tab) 650 mg Q6H PRN PO PAIN LEVEL 1-3 OR FEVER; Start at 03:00 Acetaminophen (Tylenol Supp) 650 mg Q4H PRN [place] PAIN LEVEL 1-3 OR FEVER; Start 08/01/16 at 06:30 Pantoprazole 40 mg 40 mg BID@06,18 IV Last administered on 08/15/16 05:34; Admin Dose 40 MG; Start 08/01/16 at 06:00 Propofol 100 ml @ 3.33 mls/hr Q12H IV Last administered on 08/15/16 05:57; Admin Dose 23.31 MLS/HR; Start 08/01/16 at 09:30 Phenylephrine HCl 40 mg/Dextrose 500 ml @ 0 mls/hr TITRATE IV Last administered on 08/02/16 04:58; Admin Dose 112.5 MLS/HR; Start 08/01/16 at 16:00 Norepinephrine 16 mg/Dextrose 500 ml @ 0 mls/hr TITRATE IV Last administered on 08/06/16 00:10; Admin Dose 30 MLS/HR; Start 08/01/16 at 16:00 Vasopressin 60 unit/Dextrose 60 ml @ 1.2 mls/hr Q12H IV Last administered on 03:55; Admin Dose 2.4 MLS/HR; Start 08/01/16 at 17:30 Epinephrine/ Sodium Chloride (EPINEPHrine/NS) 250 ml @ 3.75 mls/hr TITRATE IV Last administered on 08/01/16 18:50; Admin Dose 3.75 MLS/HR; Start 08/01/16 at 19:30 Eye Lubricant (Artificial Tears Oph) 2 drop QID BOTH EYES Last administered on 08/15/16 08:58; Admin Dose 2 DROP; Start 08/02/16 at 09:00 Miscellaneous Information 1 ea NOTE XX ; Start 08/02/16 at 09:00 Glucose (Glutose) 15 gm Q15M PRN PO DECREASED GLUCOSE; Start 08/02/16 at 09:00 Glucose (Glutose) 22.5 gm Q15M PRN PO DECREASED GLUCOSE; Start 08/02/16 at 09:00 Dextrose (D50w Syringe) 25 ml Q15M PRN IV DECREASED GLUCOSE Last administered on 08/08/16 08:46; Admin Dose 25 ML; Start 08/02/16 at 09:00 Dextrose (D50w Syringe) 50 ml Q15M PRN IV DECREASED GLUCOSE; Start 08/02/16 at 09:00 Glucagon (Glucagen) 1 mg Q15M PRN IM DECREASED GLUCOSE; Start 08/02/16 at 09:00 Glucose 15 gm 15 gm Q15M PRN BUCCAL DECREASED GLUCOSE; Start 08/02/16 at 09:00 Midazolam HCl 50 ml @ 1 mls/hr TITRATE IV Last administered on 08/12/16 12:06 ; Admin Dose 5 MLS/HR; Start 08/02/16 at 09:30 Fentanyl (Sublimaze) 100 ml @ 2.5 mls/hr TITRATE IV Last administered on 06:26; Admin Dose 7.5 MLS/HR; Start 08/02/16 at 09:30 Levothyroxine Sodium (Synthroid) 125 mcg DAILY@06 NGT Last administered on 08/15 05:34; Admin Dose 125 MCG; Start 08/08/16 at 06:00 Terbinafine HCl (Lamisil) 250 mg BID NGT Last administered on 08/15/16 08:26; Admin Dose 250 MG; Start 08/08/16 at 21:00; Stop 08/15/16 at 20:59 Calcium Carbonate (Ca Carbonate) 1,250 mg Q12 NGT Last administered on 08:26; Admin Dose 1,250 MG; Start 08/11/16 at 09:00 IV Flush (NS 10 ml) 10 ml PRN PRN IV FLUSH LINE; Start 08/11/16 at 20:00 Hydralazine HCl (Apresoline) 10 mg Q4H PRN IV SBP >160 Last administered on 03:16; Admin Dose 10 MG; Start 08/13/16 at 03:30 Amlodipine Besylate (Norvasc) 5 mg DAILY PO Last administered on 08/15/16 08: 27; Admin Dose 5 MG; Start 08/13/16 at 09:00 Insulin Aspart (Novolog Insulin Pen) NOVOLOG *MODERATE* ALGORI... Q8 SC ; Start 08/13/16 at 14:00 Metronidazole (Flagyl) 500 mg Q8 NGT Last administered on 08/15/16 05:34; Admin Dose 500 MG; Start 08/13/16 at 14:00 Heparin Sodium (Porcine) (Heparin (5000 Units/0.5 ml)) 5,000 unit BID SC ; Start 08/15/16 at 09:00; Status UNV Procedures Procedures PROCEDURE: Chest Radiograph. CLINICAL INDICATION: Pneumonia. CHF. TECHNIQUE: Single frontal chest radiograph. COMPARISON: Chest radiograph 08/13/2016 FINDINGS: Study is mildly under penetrated. An endotracheal tube, nasogastric tube, left upper extremity PICC remain in stable and radiographically appropriate position. Heart size is poorly evaluated but appears mildly enlarged. Atherosclerotic calcifications are present. There is a stable small left pleural effusion with adjacent atelectasis/infiltrate. Interstitial opacities are grossly unchanged in distribution and extent. Patchy areas of atelectasis are stable. The bones are intact. IMPRESSION: 1. Stable radiographic appearance of chest compared to 08/13/2016. RPTAT: KK .Gonsalo Dunne MD, MD Date Time Electronically viewed and signed by .Gonsalo Dunne MD, MD on 2016 08:15 .B/ CC: [facility]WON [facility], [facility] KOLBY ALBERT Aug 15, 2016 09:52
--- NOTE | 2016-08-15 10:02 | PN ---
DATE: 08/15/2016 SUBJECTIVE: The patient remains critical, but stable on ventilatory support. CPAP trials. N o other acute events noted. No hemoptysis, hematemesis or hematochezia. OBJECTIVE: VITAL SIGNS: Blood pressure is 123/73, respirations . I's and O's reviewed. The patient had 1.8 L in, 2.6 L out. HEENT: Head is normocephalic. NECK: Supple. HEART: Regular rate. LUNGS: Show diminished breath sounds at the bases.. ABDOMEN: Soft, nontender to palpation. No rebound or guarding. EXTREMITIES: Negative for clubbing, cyanosis. Trace edema. DERMATOLOGIC: No rashes. MUSCULOSKELETAL: No joint effusions. NEUROLOGIC: No change in exam. MEDICATIONS: The patient's medications have been reviewed. LABORATORY DATA: Shows a white count of 11.5, hemoglobin 9.2, hematocrit 27.8, platelet count is 13 8. Sodium 141, potassium 3.7, chloride 105, BUN 52, creatinine 0.73. ASSESSMENT AND PLAN: 1. Nonoliguric acute kidney injury with unknown baseline creatinine. Etiology secondary to acute t ubular necrosis due to septic shock, ischemic hypoperfusion. The patient is status post hemodialysi s. The patient showing excellent renal recovery. The patient's Deni catheter was discontinued y . At this point, continue current treatment plan, supportive care, renally dose all meds. 2. Anemia. Continue to monitor hemoglobin and hematocrit levels. 3. Mineral bone disease. Continue to monitor calcium and phosphorus levels. No need for phosphate binders. 4. Volume overload secondary to acute kidney injury and congestive heart failure. The patient is n ear euvolemic status. Continue current diuretic regimen, anticipate deescalating. 5. Ventilator-dependent respiratory failure. Vent settings have been reviewed. ABG has been revie wed. Continue to monitor. Follow up with pulmonary. 6. Sepsis, status post shock, currently on pressors. Continue current antibiotic regimen. Follow up with infectious disease. 7. Acute encephalopathy. Etiology is toxic metabolic. Continue to monitor. 8. Dysphagia, status post percutaneous endoscopic gastrostomy. Continue tube feeding. 9. Hypothyroidism. Continue Synthroid. 10. Diabetes. Continue Accu-Cheks with insulin sliding scale. 11. History of alcohol abuse. 12. Status post cardiopulmonary arrest. Dictated By: BALDOMERO TOVAR/CHARLES Conf#: [id number] DID#: [id number]
[2016-08-15] MEDS: HEPARIN 5,000 UNIT/0.5 ML VIAL SC SCH ×2 (10:30→21:09)
[2016-08-15 11:11] LABS: AADO2 Arterial 93.4 mmHg (7.0-24.0); Allen Test ACCEPTAB; Arterial Base Excess -1.5 mmol/L (-3.0-3); Arterial COHb 0.3 % (0.0-3.0); Arterial Fraction of Oxyhgb 93.2 % (93.0-99.0); Arterial HCO3 22.7 mmol/L (22.0-26.0); Arterial MetHb 0.4 % (0.0-1.5); Blood Gas PS 10; MODE VENT - CPAP
--- NOTE | 2016-08-15 11:27 | CONS ---
Date/Time of Note Date/Time of Note DATE: 08/15/16 TIME: 11:22 Assessment/Plan Assessment/Plan Additional Assessment/Plan This is a 60-year-old gentleman who was admitted to [facility] on 08/01/2016. At that time while being worked up in the emergency room for acute abdominal discomfort, was found to have metabolic acidosis, renal failure, fluid and electrolyte abnormalities. He arrested. The patient required intubation at that time and was transferred to the intensive care unit. The patient was admitted to telemetry. The following morning, the patient had a cardiac arrest. He has been in the intensive care unit and has required reintubation on 3 occasions thus far. He is still critically ill at this time, still on broad-spectrum antibiotic coverage. He has failed weaning attempts, he is on 70% FIO2 with 12 of PEEP. He is being dialyzed. Multiple subspecialty consultations are involved with his care at this point. According to nursing staff, when he undergoes sedation vacation, he does respond to simple commands appropriately. I am asked to be involved with his care, contact family members. This gentleman is a FULL CODE. Will contact pts sister today.... Issues to be discussed include If sister is the only member of the family making decisions and patient's behalf Acceptable quality of life Realistic expectations for recovery Past experiences with his mental illness Caregiver concerns Goals of care Estimated prognosis There are no obvious pain issues Social spiritual and psychological issues will be addressed with sister CODE STATUS Consultation Date/Type/Reason Admit Date/Time August 01, 2016 at 00:50 Initial Consult Date 08/01/16 Type of Consultation: Cardiology Referring Provider: NIKOLE KWON [facility] Exam/Review of Systems Vital Signs Vitals Vital Signs Date Time Temp Pulse Resp B/P Pulse Ox O2 Delivery O2 Flow Rate FiO2 08/15/16 11:18 84 17 97 30 08/15/16 11:00 158/93 Mechanical Ventilator 08/15/16 08:00 97.7 Intake and Output 08/14/16 08/14/16 08/15/16 15:00 23:00 07:00 Intake Total 606.00 ml 655.5 ml 520.52 ml Output Total 1210 ml 750 ml 600 ml Balance -604.00 ml -94.5 ml -79.48 ml Exam Respiratory: crackles/rales, diminished breath sounds Cardiovascular: nl pulses, regular rate and rhythm Results Result Diagram: 08/15/16 0400 08/15/16 0400 Results 24 hrs Laboratory Tests Test 08/14/16 13:19 08/14/16 21:32 08/15/16 04:00 08/15/16 05:37 Bedside Glucose 88 96 104 White Blood Count 11.5 H Red Blood Count 2.87 L Hemoglobin 9.2 L Hematocrit 27.8 L Mean Corpuscular Volume 96.9 Mean Corpuscular Hemoglobin 32.1 Mean Corpuscular Hemoglobin Concent 33.1 Red Cell Distribution Width 18.0 H Platelet Count 138 L Mean Platelet Volume 13.4 H Neutrophils % 78.2 H Lymphocytes % 12.5 L Monocytes % 7.8 Eosinophils % 0.2 Basophils % 0.1 Nucleated Red Blood Cells % 0.2 H Neutrophils # 9.0 H Lymphocytes # 1.4 Monocytes # 0.9 Eosinophils # 0.0 Basophils # 0.0 Nucleated Red Blood Cells # 0.0 Sodium Level 141 Potassium Level 3.7 Chloride Level 105 Carbon Dioxide Level 29 Anion Gap 11 Blood Urea Nitrogen 52 H Creatinine 1.73 H Glucose Level 92 Calcium Level 9.3 Phosphorus Level 4.9 Magnesium Level 2.3 Test 08/15/16 11:00 Blood Gas Specimen Source Blood arterial Arterial Blood Date Drawn 08/15/2016 10:55:21 AM Arterial Blood pH (Temp corrected) 7.412 Arterial Blood pCO2 (Temp correct) 36.5 Arterial Blood pO2 (Temp corrected) 77.6 L Arterial Blood HCO3 22.7 Arterial Blood Base Excess -1.5 Arterial Blood Oxygen Saturation 93.9 L Stanley Test ACCEPTAB Arterial Blood Gas Puncture Site Right Radial Arterial Blood Carboxyhemoglobin 0.3 Arterial Blood Methemoglobin 0.4 Blood Gas A-a O2 Differential 93.4 H Oxyhemoglobin Percent 93.2 Total Hemoglobin 11.0 L Blood Gas Temperature 37.0 Blood Gas Actual Respiration Rate 28 Blood Gas Modality VENT - CPAP FiO2 30.0 Blood Gas Low PEEP Setting 5.0 Blood Gas Pressure Support 10 Blood Gas Notified Whom JLD Blood Gas Notified Time 08/15/2016 11:10:59 AM Medications Medications Current Medications Lorazepam (Ativan) 0.5 mg Q6H PRN IV ANXIETY Last administered on 08/07/16t 23: 23; Admin Dose 0.5 MG; Start 08/01/16 at 03:00 Ondansetron HCl (Zofran Inj) 4 mg Q6H PRN IV NAUSEA AND/OR VOMITING; Start at 03:00 Metoclopramide HCl (Reglan) 10 mg Q6H PRN IV NAUSEA AND/OR VOMITING; Start at 03:00 Acetaminophen (Tylenol Tab) 650 mg Q6H PRN PO PAIN LEVEL 1-3 OR FEVER; Start at 03:00 Acetaminophen 650 mg 650 mg Q4H PRN [place] PAIN LEVEL 1-3 OR FEVER; Start 08/01/16 at 06:30 Propofol 100 ml @ 3.33 mls/hr Q12H IV Last administered on 08/15/16 05:57; Admin Dose 23.31 MLS/HR; Start 08/01/16 at 09:30 Phenylephrine HCl 40 mg/Dextrose 500 ml @ 0 mls/hr TITRATE IV Last administered on 08/02/16 04:58; Admin Dose 112.5 MLS/HR; Start 08/01/16 at 16:00 Norepinephrine 16 mg/Dextrose 500 ml @ 0 mls/hr TITRATE IV Last administered on 08/06/16 00:10; Admin Dose 30 MLS/HR; Start 08/01/16 at 16:00 Vasopressin 60 unit/Dextrose 60 ml @ 1.2 mls/hr Q12H IV Last administered on 03:55; Admin Dose 2.4 MLS/HR; Start 08/01/16 at 17:30 Epinephrine/ Sodium Chloride (EPINEPHrine/NS) 250 ml @ 3.75 mls/hr TITRATE IV Last administered on 08/01/16 18:50; Admin Dose 3.75 MLS/HR; Start 08/01/16 at 19:30 Eye Lubricant (Artificial Tears Oph) 2 drop QID BOTH EYES Last administered on 08/15/16 08:58; Admin Dose 2 DROP; Start 08/02/16 at 09:00 Miscellaneous Information 1 ea NOTE XX ; Start 08/02/16 at 09:00 Glucose (Glutose) 15 gm Q15M PRN PO DECREASED GLUCOSE; Start 08/02/16 at 09:00 Glucose (Glutose) 22.5 gm Q15M PRN PO DECREASED GLUCOSE; Start 08/02/16 at 09:00 Dextrose (D50w Syringe) 25 ml Q15M PRN IV DECREASED GLUCOSE Last administered on 08/08/16 08:46; Admin Dose 25 ML; Start 08/02/16 at 09:00 Dextrose (D50w Syringe) 50 ml Q15M PRN IV DECREASED GLUCOSE; Start 08/02/16 at 09:00 Glucagon (Glucagen) 1 mg Q15M PRN IM DECREASED GLUCOSE; Start 08/02/16 at 09:00 Glucose 15 gm 15 gm Q15M PRN BUCCAL DECREASED GLUCOSE; Start 08/02/16 at 09:00 Midazolam HCl 50 ml @ 1 mls/hr TITRATE IV Last administered on 08/12/16 12:06 ; Admin Dose 5 MLS/HR; Start 08/02/16 at 09:30 Fentanyl (Sublimaze) 100 ml @ 2.5 mls/hr TITRATE IV Last administered on 06:26; Admin Dose 7.5 MLS/HR; Start 08/02/16 at 09:30 Levothyroxine Sodium (Synthroid) 125 mcg DAILY@06 NGT Last administered on 08/15 05:34; Admin Dose 125 MCG; Start 08/08/16 at 06:00 Terbinafine HCl (Lamisil) 250 mg BID NGT Last administered on 08/15/16 08:26; Admin Dose 250 MG; Start 08/08/16 at 21:00; Stop 08/15/16 at 20:59 Calcium Carbonate (Ca Carbonate) 1,250 mg Q12 NGT Last administered on 08:26; Admin Dose 1,250 MG; Start 08/11/16 at 09:00 IV Flush (NS 10 ml) 10 ml PRN PRN IV FLUSH LINE; Start 08/11/16 at 20:00 Hydralazine HCl (Apresoline) 10 mg Q4H PRN IV SBP >160 Last administered on 03:16; Admin Dose 10 MG; Start 08/13/16 at 03:30 Amlodipine Besylate (Norvasc) 5 mg DAILY PO Last administered on 08/15/16 08: 27; Admin Dose 5 MG; Start 08/13/16 at 09:00 Insulin Aspart (Novolog Insulin Pen) NOVOLOG *MODERATE* ALGORI... Q8 SC ; Start 08/13/16 at 14:00 Metronidazole (Flagyl) 500 mg Q8 NGT Last administered on 08/15/16 05:34; Admin Dose 500 MG; Start 08/13/16 at 14:00 Heparin Sodium (Porcine) (Heparin (5000 Units/0.5 ml)) 5,000 unit BID SC Last administered on 08/15/16 10:30; Admin Dose 5,000 UNIT; Start 08/15/16 at 09:00 Pantoprazole (Protonix Iv) 40 mg DAILY IV ; Start 08/16/16 at 09:00 ARMIN ELIZABETH Aug 15, 2016 11:27
--- NOTE | 2016-08-15 11:39 | PN ---
DATE: 08/15/2016 SUBJECTIVE: The patient, Zev Dick, remains on mechanical ventilation. Eyes open, follows simp le commands. Currently hemodynamically stable. Will be placed on CPAP weaning trial this morning PHYSICAL EXAMINATION: VITAL SIGNS: Temperature 98, pulse 84, blood pressure 158/93, O2 sat 96 on FIO2 of 30%, orally intu bated. HEENT: Dry mucous membranes. Pupils equal and reactive to light. Cardiac exam S1, S2. No added s ounds or murmurs. CHEST: Diminished air entry bilaterally. ABDOMEN: Soft, nontender, no guarding or rebound. EXTREMITIES: No cyanosis, clubbing, edema. NEUROLOGIC: Generalized weakness. LABORATORY DATA: White count 11.5, hemoglobin 9.2, platelets of 138, BUN 52, creatinine 1.73. ABG: pH 7.41, pCO2 of 36, pO2 of 77 on CPAP trial. Chest x-ray was reviewed, shows patchy bilateral infiltrates, small left pleural effusions. ASSESSMENT AND PLAN: 1. Status post hypoxemic respiratory failure with ARDS clinically improving. Will hopefully be ext ubated today. 2. Normal oliguric renal failure, now improving in the absence of hemodialysis. 3. Anemia, likely a combination of severe sepsis and chronic disease, currently stable. 4. Status post cardiopulmonary arrest with now return of circulation, underlying probable coronary artery disease. 5. History of chronic ETOH abuse. PLAN 1. CPAP trial, hopefully extubate. 2. Continue tube feedings. 3. Speech therapy evaluated in the a.m. 4. Physical therapy evaluation. 5. Deep vein thrombosis and GI prophylaxis. Dictated By: DAYA ROSE/CHARLES Conf#: [id number] DID#: [id number]
--- NOTE | 2016-08-15 12:34 | CONS ---
Date/Time of Note Date/Time of Note DATE: 08/15/16 TIME: 12:32 Assessment/Plan Assessment/Plan Chief Complaint/Hosp Course 60-year-old right-handed -[place] gentleman normally cared for at the [facility]. He was admitted to the hospital but it had cardiac arrest in the hospital. Please note that his picture actually looked a bit like adrenal insufficiency except that he has a serum cortisol level of 44 prior to his arrest. He had a TSH of 21 with a low free T4 and a low T3. Patient is intubated and unable to give a history although he is able to look and follows rudimentary commands. At this time many of his metabolic abnormalities have improved. Problems: (1) Hypothyroidism Status: Chronic Comment: Patient reports he did not fact have a long history of hypothyroidism and was off of his pills in the recent past. He was on an orange tablet. Please note this is actually rather strong dose of levothyroxine if he is correct. It is a plus minus at this point about whether he remembers clearly. Will titrate to effect with his medicine Qualifiers: Hypothyroidism type: acquired Qualified Code: E03.9 - Acquired hypothyroidism (2) Hyperglycemia Status: Acute Comment: Holding well off of steroids (3) Acute kidney injury Status: Acute Comment: He is slowly but steadily improving in serum creatinine. (4) Onychomycosis Status: Chronic Comment: Consider treating this Consultation Date/Type/Reason Admit Date/Time August 01, 2016 at 00:50 Initial Consult Date 08/01/16 Type of Consultation: Endocrinology Reason for Consultation Primary hypothyroidism; multiple metabolic abnormalities. Referring Provider: NIKOLE KWON MD, [facility] 24 HR Interval Summary Free Text/Dictation Patient was extubated successfully this morning. He is able to interact with me and has barely a voice to speak but was able to communicate Exam/Review of Systems Vital Signs Vitals Vital Signs Date Time Temp Pulse Resp B/P Pulse Ox O2 Delivery O2 Flow Rate FiO2 08/15/16 12:00 Nasal Cannula 6.0 08/15/16 12:00 97.8 86 26 159/95 99 08/15/16 11:18 30 Intake and Output 08/14/16 08/14/16 08/15/16 15:00 23:00 07:00 Intake Total 606.00 ml 655.5 ml 520.52 ml Output Total 1210 ml 750 ml 600 ml Balance -604.00 ml -94.5 ml -79.48 ml Exam Constitutional: alert, oriented Respiratory: clear to auscultation, normal air movement Results Result Diagram: 08/15/16 0400 08/15/16 0400 Results 24 hrs Laboratory Tests Test 08/14/16 13:19 08/14/16 21:32 08/15/16 04:00 08/15/16 05:37 Bedside Glucose 88 96 104 White Blood Count 11.5 H Red Blood Count 2.87 L Hemoglobin 9.2 L Hematocrit 27.8 L Mean Corpuscular Volume 96.9 Mean Corpuscular Hemoglobin 32.1 Mean Corpuscular Hemoglobin Concent 33.1 Red Cell Distribution Width 18.0 H Platelet Count 138 L Mean Platelet Volume 13.4 H Neutrophils % 78.2 H Lymphocytes % 12.5 L Monocytes % 7.8 Eosinophils % 0.2 Basophils % 0.1 Nucleated Red Blood Cells % 0.2 H Neutrophils # 9.0 H Lymphocytes # 1.4 Monocytes # 0.9 Eosinophils # 0.0 Basophils # 0.0 Nucleated Red Blood Cells # 0.0 Sodium Level 141 Potassium Level 3.7 Chloride Level 105 Carbon Dioxide Level 29 Anion Gap 11 Blood Urea Nitrogen 52 H Creatinine 1.73 H Glucose Level 92 Calcium Level 9.3 Phosphorus Level 4.9 Magnesium Level 2.3 Test 08/15/16 11:00 Blood Gas Specimen Source Blood arterial Arterial Blood Date Drawn 08/15/2016 10:55:21 AM Arterial Blood pH (Temp corrected) 7.412 Arterial Blood pCO2 (Temp correct) 36.5 Arterial Blood pO2 (Temp corrected) 77.6 L Arterial Blood HCO3 22.7 Arterial Blood Base Excess -1.5 Arterial Blood Oxygen Saturation 93.9 L Stanley Test ACCEPTAB Arterial Blood Gas Puncture Site Right Radial Arterial Blood Carboxyhemoglobin 0.3 Arterial Blood Methemoglobin 0.4 Blood Gas A-a O2 Differential 93.4 H Oxyhemoglobin Percent 93.2 Total Hemoglobin 11.0 L Blood Gas Temperature 37.0 Blood Gas Actual Respiration Rate 28 Blood Gas Modality VENT - CPAP FiO2 30.0 Blood Gas Low PEEP Setting 5.0 Blood Gas Pressure Support 10 Blood Gas Notified Whom JLD Blood Gas Notified Time 08/15/2016 11:10:59 AM Medications Medications Current Medications Lorazepam (Ativan) 0.5 mg Q6H PRN IV ANXIETY Last administered on 08/07/16 23: 23; Admin Dose 0.5 MG; Start 08/01/16 at 03:00 Ondansetron HCl (Zofran Inj) 4 mg Q6H PRN IV NAUSEA AND/OR VOMITING; Start at 03:00 Metoclopramide HCl (Reglan) 10 mg Q6H PRN IV NAUSEA AND/OR VOMITING; Start at 03:00 Acetaminophen (Tylenol Tab) 650 mg Q6H PRN PO PAIN LEVEL 1-3 OR FEVER; Start at 03:00 Acetaminophen 650 mg 650 mg Q4H PRN [place] PAIN LEVEL 1-3 OR FEVER; Start 08/01/16 at 06:30 Propofol 100 ml @ 3.33 mls/hr Q12H IV Last administered on 08/15/16 05:57; Admin Dose 23.31 MLS/HR; Start 08/01/16 at 09:30 Phenylephrine HCl 40 mg/Dextrose 500 ml @ 0 mls/hr TITRATE IV Last administered on 08/02/16 04:58; Admin Dose 112.5 MLS/HR; Start 08/01/16 at 16:00 Norepinephrine 16 mg/Dextrose 500 ml @ 0 mls/hr TITRATE IV Last administered on 08/06/16 00:10; Admin Dose 30 MLS/HR; Start 08/01/16 at 16:00 Vasopressin 60 unit/Dextrose 60 ml @ 1.2 mls/hr Q12H IV Last administered on 03:55; Admin Dose 2.4 MLS/HR; Start 08/01/16 at 17:30 Epinephrine/ Sodium Chloride (EPINEPHrine/NS) 250 ml @ 3.75 mls/hr TITRATE IV Last administered on 08/01/16 18:50; Admin Dose 3.75 MLS/HR; Start 08/01/16 at 19:30 Eye Lubricant (Artificial Tears Oph) 2 drop QID BOTH EYES Last administered on 08/15/16 08:58; Admin Dose 2 DROP; Start 08/02/16 at 09:00 Miscellaneous Information 1 ea NOTE XX ; Start 08/02/16 at 09:00 Glucose (Glutose) 15 gm Q15M PRN PO DECREASED GLUCOSE; Start 08/02/16 at 09:00 Glucose (Glutose) 22.5 gm Q15M PRN PO DECREASED GLUCOSE; Start 08/02/16 at 09:00 Dextrose (D50w Syringe) 25 ml Q15M PRN IV DECREASED GLUCOSE Last administered on 08/08/16 08:46; Admin Dose 25 ML; Start 08/02/16 at 09:00 Dextrose (D50w Syringe) 50 ml Q15M PRN IV DECREASED GLUCOSE; Start 08/02/16 at 09:00 Glucagon (Glucagen) 1 mg Q15M PRN IM DECREASED GLUCOSE; Start 08/02/16 at 09:00 Glucose 15 gm 15 gm Q15M PRN BUCCAL DECREASED GLUCOSE; Start 08/02/16 at 09:00 Midazolam HCl 50 ml @ 1 mls/hr TITRATE IV Last administered on 08/12/16 12:06 ; Admin Dose 5 MLS/HR; Start 08/02/16 at 09:30 Fentanyl (Sublimaze) 100 ml @ 2.5 mls/hr TITRATE IV Last administered on 06:26; Admin Dose 7.5 MLS/HR; Start 08/02/16 at 09:30 Levothyroxine Sodium (Synthroid) 125 mcg DAILY@06 NGT Last administered on 08/15 05:34; Admin Dose 125 MCG; Start 08/08/16 at 06:00 Terbinafine HCl (Lamisil) 250 mg BID NGT Last administered on 08/15/16 08:26; Admin Dose 250 MG; Start 08/08/16 at 21:00; Stop 08/15/16 at 20:59 Calcium Carbonate (Ca Carbonate) 1,250 mg Q12 NGT Last administered on 08:26; Admin Dose 1,250 MG; Start 08/11/16 at 09:00 IV Flush (NS 10 ml) 10 ml PRN PRN IV FLUSH LINE; Start 08/11/16 at 20:00 Hydralazine HCl (Apresoline) 10 mg Q4H PRN IV SBP >160 Last administered on 03:16; Admin Dose 10 MG; Start 08/13/16 at 03:30 Amlodipine Besylate (Norvasc) 5 mg DAILY PO Last administered on 08/15/16 08: 27; Admin Dose 5 MG; Start 08/13/16 at 09:00 Insulin Aspart (Novolog Insulin Pen) NOVOLOG *MODERATE* ALGORI... Q8 SC ; Start 08/13/16 at 14:00 Metronidazole (Flagyl) 500 mg Q8 NGT Last administered on 08/15/16 05:34; Admin Dose 500 MG; Start 08/13/16 at 14:00 Heparin Sodium (Porcine) (Heparin (5000 Units/0.5 ml)) 5,000 unit BID SC Last administered on 08/15/16 10:30; Admin Dose 5,000 UNIT; Start 08/15/16 at 09:00 Pantoprazole (Protonix Iv) 40 mg DAILY IV ; Start 08/16/16 at 09:00 ERIN MARTÍNEZ MD Aug 15, 2016 12:34
[2016-08-15] MEDS: hydrALAzine 20 MG INJ IV PRN (13:06)
--- NOTE | 2016-08-15 13:46 | CONS ---
Date/Time of Note Date/Time of Note DATE: 08/15/16 TIME: 13:45 Assessment/Plan Assessment/Plan Chief Complaint/Hosp Course SUBJECTIVE: No events. On Cpap, awake, looks comfortable, no fevers. INDWELLINGS: Endotracheal tube, PICC, right femoral Deni catheter, NGT, Silver. ANTIMICROBIALS: Flagyl. MICROBIOLOGY: Blood cultures have been negative. Urine culture negative. Stool for C. diff negative. PHYSICAL EXAMINATION: GENERAL: Chronically ill-appearing, middle-aged man who is intubated and sedated, in no distress. HEENT: Head atraumatic, normocephalic. Sclerae anicteric. Buccal mucosa dry. NECK: Supple, trachea midline. CHEST: Rise symmetrical. Breath sounds diminished to bases. HEART: S1, S2. ABDOMEN: Distended, soft. Bowel tones hypoactive. EXTREMITIES: Bilateral edema. ASSESSMENT: 1. S/p sepsis with shock 2. Acute respiratory failure. 3. Acute kidney injury, started on hemodialysis. 4. Status post cardiopulmonary arrest. 5. Encephalopathy. 6. History of ETOH abuse. 7. Diarrhea===> emp Flagyl 8. Leukocytosis===> resolving, off steroids PLAN: The patient remains stable, repeat stool neg for C dif, will dc Flagyl and reculture prn. DW staff Problems: Consultation Date/Type/Reason Admit Date/Time August 01, 2016 at 00:50 Initial Consult Date 08/01/16 Type of Consultation: id Referring Provider: NIKOLE KWON MD, [facility] Exam/Review of Systems Vital Signs Vitals Vital Signs Date Time Temp Pulse Resp B/P Pulse Ox O2 Delivery O2 Flow Rate FiO2 08/15/16 12:00 Nasal Cannula 6.0 08/15/16 12:00 97.8 86 26 159/95 99 08/15/16 11:18 30 Intake and Output 08/14/16 08/14/16 08/15/16 15:00 23:00 07:00 Intake Total 606.00 ml 655.5 ml 520.52 ml Output Total 1210 ml 750 ml 600 ml Balance -604.00 ml -94.5 ml -79.48 ml Results Result Diagram: 08/15/16 0400 08/15/16 0400 Results 24 hrs Laboratory Tests Test 08/14/16 21:32 08/15/16 04:00 08/15/16 05:37 08/15/16 11:00 Bedside Glucose 96 104 White Blood Count 11.5 H Red Blood Count 2.87 L Hemoglobin 9.2 L Hematocrit 27.8 L Mean Corpuscular Volume 96.9 Mean Corpuscular Hemoglobin 32.1 Mean Corpuscular Hemoglobin Concent 33.1 Red Cell Distribution Width 18.0 H Platelet Count 138 L Mean Platelet Volume 13.4 H Neutrophils % 78.2 H Lymphocytes % 12.5 L Monocytes % 7.8 Eosinophils % 0.2 Basophils % 0.1 Nucleated Red Blood Cells % 0.2 H Neutrophils # 9.0 H Lymphocytes # 1.4 Monocytes # 0.9 Eosinophils # 0.0 Basophils # 0.0 Nucleated Red Blood Cells # 0.0 Sodium Level 141 Potassium Level 3.7 Chloride Level 105 Carbon Dioxide Level 29 Anion Gap 11 Blood Urea Nitrogen 52 H Creatinine 1.73 H Glucose Level 92 Calcium Level 9.3 Phosphorus Level 4.9 Magnesium Level 2.3 Blood Gas Specimen Source Blood arterial Arterial Blood Date Drawn 08/15/2016 10:55:21 AM Arterial Blood pH (Temp corrected) 7.412 Arterial Blood pCO2 (Temp correct) 36.5 Arterial Blood pO2 (Temp corrected) 77.6 L Arterial Blood HCO3 22.7 Arterial Blood Base Excess -1.5 Arterial Blood Oxygen Saturation 93.9 L Stanley Test ACCEPTAB Arterial Blood Gas Puncture Site Right Radial Arterial Blood Carboxyhemoglobin 0.3 Arterial Blood Methemoglobin 0.4 Blood Gas A-a O2 Differential 93.4 H Oxyhemoglobin Percent 93.2 Total Hemoglobin 11.0 L Blood Gas Temperature 37.0 Blood Gas Actual Respiration Rate 28 Blood Gas Modality VENT - CPAP FiO2 30.0 Blood Gas Low PEEP Setting 5.0 Blood Gas Pressure Support 10 Blood Gas Notified Whom JLD Blood Gas Notified Time 08/15/2016 11:10:59 AM Test 08/15/16 13:17 Bedside Glucose 72 Medications Medications Current Medications Lorazepam (Ativan) 0.5 mg Q6H PRN IV ANXIETY Last administered on 08/07/16t 23: 23; Admin Dose 0.5 MG; Start 08/01/16 at 03:00 Ondansetron HCl (Zofran Inj) 4 mg Q6H PRN IV NAUSEA AND/OR VOMITING; Start at 03:00 Metoclopramide HCl (Reglan) 10 mg Q6H PRN IV NAUSEA AND/OR VOMITING; Start at 03:00 Acetaminophen (Tylenol Tab) 650 mg Q6H PRN PO PAIN LEVEL 1-3 OR FEVER; Start at 03:00 Acetaminophen 650 mg 650 mg Q4H PRN NE PAIN LEVEL 1-3 OR FEVER; Start 08/01/16 at 06:30 Propofol 100 ml @ 3.33 mls/hr Q12H IV Last administered on 08/15/16 05:57; Admin Dose 23.31 MLS/HR; Start 08/01/16 at 09:30 Phenylephrine HCl 40 mg/Dextrose 500 ml @ 0 mls/hr TITRATE IV Last administered on 08/02/16 04:58; Admin Dose 112.5 MLS/HR; Start 08/01/16 at 16:00 Norepinephrine 16 mg/Dextrose 500 ml @ 0 mls/hr TITRATE IV Last administered on 08/06/16 00:10; Admin Dose 30 MLS/HR; Start 08/01/16 at 16:00 Vasopressin 60 unit/Dextrose 60 ml @ 1.2 mls/hr Q12H IV Last administered on 03:55; Admin Dose 2.4 MLS/HR; Start 08/01/16 at 17:30 Epinephrine/ Sodium Chloride (EPINEPHrine/NS) 250 ml @ 3.75 mls/hr TITRATE IV Last administered on 08/01/16 18:50; Admin Dose 3.75 MLS/HR; Start 08/01/16 at 19:30 Eye Lubricant (Artificial Tears Oph) 2 drop QID BOTH EYES Last administered on 08/15/16 08:58; Admin Dose 2 DROP; Start 08/02/16 at 09:00 Miscellaneous Information 1 ea NOTE XX ; Start 08/02/16 at 09:00 Glucose (Glutose) 15 gm Q15M PRN PO DECREASED GLUCOSE; Start 08/02/16 at 09:00 Glucose (Glutose) 22.5 gm Q15M PRN PO DECREASED GLUCOSE; Start 08/02/16 at 09:00 Dextrose (D50w Syringe) 25 ml Q15M PRN IV DECREASED GLUCOSE Last administered on 08/08/16 08:46; Admin Dose 25 ML; Start 08/02/16 at 09:00 Dextrose (D50w Syringe) 50 ml Q15M PRN IV DECREASED GLUCOSE; Start 08/02/16 at 09:00 Glucagon (Glucagen) 1 mg Q15M PRN IM DECREASED GLUCOSE; Start 08/02/16 at 09:00 Glucose 15 gm 15 gm Q15M PRN BUCCAL DECREASED GLUCOSE; Start 08/02/16 at 09:00 Midazolam HCl 50 ml @ 1 mls/hr TITRATE IV Last administered on 08/12/16 12:06 ; Admin Dose 5 MLS/HR; Start 08/02/16 at 09:30 Fentanyl (Sublimaze) 100 ml @ 2.5 mls/hr TITRATE IV Last administered on 06:26; Admin Dose 7.5 MLS/HR; Start 08/02/16 at 09:30 Levothyroxine Sodium (Synthroid) 125 mcg DAILY@06 NGT Last administered on 08/15 05:34; Admin Dose 125 MCG; Start 08/08/16 at 06:00 Terbinafine HCl (Lamisil) 250 mg BID NGT Last administered on 08/15/16 08:26; Admin Dose 250 MG; Start 08/08/16 at 21:00; Stop 08/15/16 at 20:59 Calcium Carbonate (Ca Carbonate) 1,250 mg Q12 NGT Last administered on 08:26; Admin Dose 1,250 MG; Start 08/11/16 at 09:00 IV Flush (NS 10 ml) 10 ml PRN PRN IV FLUSH LINE; Start 08/11/16 at 20:00 Hydralazine HCl (Apresoline) 10 mg Q4H PRN IV SBP >160 Last administered on 13:06; Admin Dose 10 MG; Start 08/13/16 at 03:30 Amlodipine Besylate (Norvasc) 5 mg DAILY PO Last administered on 08/15/16 08: 27; Admin Dose 5 MG; Start 08/13/16 at 09:00 Insulin Aspart (Novolog Insulin Pen) NOVOLOG *MODERATE* ALGORI... Q8 SC ; Start 08/13/16 at 14:00 Metronidazole (Flagyl) 500 mg Q8 NGT Last administered on 08/15/16 13:05; Admin Dose 500 MG; Start 08/13/16 at 14:00 Heparin Sodium (Porcine) (Heparin (5000 Units/0.5 ml)) 5,000 unit BID SC Last administered on 08/15/16t 10:30; Admin Dose 5,000 UNIT; Start 08/15/16 at 09:00 Pantoprazole (Protonix Iv) 40 mg DAILY IV ; Start 08/16/16 at 09:00 RADHA ESCALANTE NP Aug 15, 2016 13:46
--- NOTE | 2016-08-15 14:16 | RADRPT ---
PROCEDURE: XR Chest. CLINICAL INDICATION: Respiratory failure. TECHNIQUE: Chest x-ray, single view. COMPARISON: 08/14/2016. FINDINGS: The cardiac silhouette is magnified and unchanged in size and configuration. Aortic arch atheroscle rotic calcification is present. The endotracheal tube terminates within the mid trachea. The enter ic tube enters the stomach. Low lung volumes are observed. Patchy parenchymal opacification is see n bilaterally and is unchanged. There is no evidence of pneumothorax or pneumomediastinum. A left u pper extremity PICC terminates at the SVC/right atrial junction. IMPRESSION: Low lung volumes with patchy parenchymal opacification, unchanged. RPTAT: HLST .Diana Escalera MD, MD Date Time Electronically viewed and signed by .Diana Escalera MD, on 08/15/2016 14:15 .T/
[2016-08-15] MEDS: ALBUTEROL/IPRATROPIUM (NEB) 3 ML AMP HHN SCH ×2 (14:30→20:05)
[2016-08-15] MEDS: VASOPRESSIN 60 UNIT in DEXTROSE 5% 57 ML IV SCH (17:08)
[2016-08-15] MEDS: ACETAMINOPHEN 325 MG TAB PO PRN (21:05)
[2016-08-16] VITALS (24 sets, daily range): BP systolic 132–175; BP diastolic 73–109; PULSE 77–95; RESP 17–42
[2016-08-16] MEDS: VASOPRESSIN 60 UNIT in DEXTROSE 5% 57 ML IV SCH (05:30)
[2016-08-16] MEDS: INSULIN ASPART [NOVOLOG] 3 ML PEN SC SCH ×3 (06:00→20:24)
[2016-08-16] MEDS: LEVOTHYROXINE 125 MCG TAB NGT SCH (06:13)
[2016-08-16] MEDS: FUROSEMIDE 40 MG INJ IV SCH ×2 (06:13→17:43)
[2016-08-16 06:27] LABS: ADD SCAN DIFF NO
[2016-08-16] MEDS: DEXTROSE 50% 50 ML SYRINGE IV PRN (06:30)
[2016-08-16 06:38] LABS: BASOPHILS % 0.2 % (0.0-2.0); EOSINOPHILS % 0.2 % (0.0-7.0); HEMATOCRIT 30.2 % (42.0-52.0); HEMOGLOBIN 9.7 g/dl (14.0-18.0); LYMPHOCYTES # 1.5 10^3/ul (0.8-2.9); LYMPHOCYTES % 12.8 % (15.0-51.0); MEAN CORPUSCULAR HEMOGLOBIN 31.6 pg (29.0-33.0); MEAN CORPUSCULAR HGB CONC 32.1 g/dl (32.0-37.0); MEAN CORPUSCULAR VOLUME 98.4 fl (82.0-101.0); MEAN PLATELET VOLUME 12.9 fl (7.4-10.4); MONOCYTE # 1.1 10^3/ul (0.3-0.9); MONOCYTES % 9.2 % (0.0-11.0); NEUTROPHILS % 76.7 % (39.0-77.0); NUCLEATED RED BLOOD CELLS% 0.2 /100WBC (0.0-0.0); PLATELET COUNT 177 10^3/UL (140-415); RED BLOOD COUNT 3.07 10^6/ul (4.70-6.10); RED CELL DISTRIBUTION WIDTH 17.7 % (11.5-14.5); WHITE BLOOD COUNT 11.7 10^3/ul (4.8-10.8)
[2016-08-16 07:21] LABS: CALCIUM 9.8 mg/dl (8.4-10.2); CREATININE 1.55 mg/dl (0.61-1.24); MAGNESIUM 2.2 mg/dl (1.7-2.5); PHOSPHORUS 5.6 mg/dl (2.5-4.9)
[2016-08-16] MEDS: ALBUTEROL/IPRATROPIUM (NEB) 3 ML AMP HHN SCH ×3 (07:43→20:49)
--- NOTE | 2016-08-16 07:43 | PN ---
DATE: 08/16/2016 SUBJECTIVE: The patient was extubated yesterday and is clinically improved, able to answer some que stions, in no acute distress. No other events noted. OBJECTIVE: VITAL SIGNS: Blood pressure 154/76, respirations 26, pulse 78, temperature 98.3. HEENT: Head is normocephalic. Pupils are reactive to light. NECK: Supple. HEART: Regular rate. LUNGS: Showed diminished breath sounds at the base. ABDOMEN: Soft, nontender to palpation. No rebound or guarding. EXTREMITIES: Negative for clubbing or cyanosis. No edema. DERMATOLOGIC: No rashes. MUSCULOSKELETAL: Have no joint effusion. NEUROLOGIC: No change in exam. MEDICATION: The patient's medications were reviewed. LABORATORY DATA: Shows white count 11.7, hemoglobin 9.7, hematocrit 38.2, platelet count is 177. B MP is currently pending. X-ray was reviewed. ASSESSMENT AND PLAN: 1. Nonoliguric acute kidney injury, with unknown baseline creatinine. Etiology is secondary to acu te tubular necrosis due to septic shock and ischemic hypoperfusion. The patient is status post hemo dialysis, has shown excellent renal recovery. At this point, will continue the current treatment pl an, supportive care, renally dose all meds. 2. Anemia. Continue to monitor H and H levels. 3. Mineral bone disorder. Continue to monitor calcium and phosphorus levels. No need for phosphat e binders. 4. Volume overload secondary to acute kidney injury and CHF. The patient is near euvolemic status. Will deescalate Lasix 20 mg daily and monitor. 5. Respiratory failure. The patient is status post extubation. Currently stable. Continue supplem ental oxygen and nebulizers. 6. Sepsis. Status post shock. Continue the current antibiotic regimen. 7. Dysphagia. The patient is on tube feedings. Consider a modified diet, speech therapy. 8. Hypothyroidism. Will continue Synthroid. 9. Diabetes. Continue Accu-Cheks and insulin sliding scale. 10. History of alcohol abuse. 11. Status post cardiopulmonary arrest. Dictated By: BALDOMERO TOVAR/CHARLES Conf#: [id number] DID#: [id number]
--- NOTE | 2016-08-16 08:08 | CONS ---
Date/Time of Note Date/Time of Note DATE: 08/16/16 TIME: 08:05 Assessment/Plan Assessment/Plan Chief Complaint/Hosp Course PEA cardiac arrest: secondary to severe metabolic acidosis. No VT/VF or EKG changes to suggest primary cardiac etiology. Trops ok, EF preserved. Acute respiratory failure: intubated during code.Likely ARDS and some component of fluid overload. Now extubated 08/15 Severe metabolic acidosis: likely was the culprit for the arrest. Resolved Shock: ?septic.Off pressors Acute renal failure: unclear etiology. Was on intermittent HD. Good UOP. HD stopped Hypoglycemia Hypothyroidism Diarrhea/n/v/colitis HTN: high again -increase to amlodipine 10mg -agree with decreasing lasix Problems: Consultation Date/Type/Reason Admit Date/Time August 01, 2016 at 00:50 Initial Consult Date 08/01/16 Type of Consultation: Cardiology Referring Provider: NIKOLE KWON MD, [facility] 24 HR Interval Summary Free Text/Dictation Extubated yesterday. Doing well overall. able to communicate without issues. BP running high Exam/Review of Systems Vital Signs Vitals Vital Signs Date Time Temp Pulse Resp B/P Pulse Ox O2 Delivery O2 Flow Rate FiO2 08/16/16 07:44 95 6.0 08/16/16 07:44 84 30 Nasal Cannula 08/16/16 06:00 154/76 08/16/16 05:00 98.3 08/15/16 11:18 30 Intake and Output 08/15/16 08/15/16 08/16/16 15:00 23:00 07:00 Intake Total 151.62 ml 80 ml 80 ml Output Total 710 ml 1800 ml 685 ml Balance -558.38 ml -1720 ml -605 ml Exam Constitutional: alert, oriented Psych: no complaints Head: normocephalic Neck: jvd (7cm) Respiratory: diminished breath sounds, No clear to auscultation Cardiovascular: edema (trce), regular rate and rhythm, No systolic murmur Gastrointestinal: non-tender, soft Neurological: nl mental status, nl speech Results Result Diagram: 08/16/16 0500 08/16/16 0500 Results 24 hrs Laboratory Tests Test 08/15/16 11:00 08/15/16 13:17 08/15/16 22:04 08/16/16 05:00 Blood Gas Specimen Source Blood arterial Arterial Blood Date Drawn 08/15/2016 10:55:21 AM Arterial Blood pH (Temp corrected) 7.412 Arterial Blood pCO2 (Temp correct) 36.5 Arterial Blood pO2 (Temp corrected) 77.6 L Arterial Blood HCO3 22.7 Arterial Blood Base Excess -1.5 Arterial Blood Oxygen Saturation 93.9 L Stanley Test ACCEPTAB Arterial Blood Gas Puncture Site Right Radial Arterial Blood Carboxyhemoglobin 0.3 Arterial Blood Methemoglobin 0.4 Blood Gas A-a O2 Differential 93.4 H Oxyhemoglobin Percent 93.2 Total Hemoglobin 11.0 L Blood Gas Temperature 37.0 Blood Gas Actual Respiration Rate 28 Blood Gas Modality VENT - CPAP FiO2 30.0 Blood Gas Low PEEP Setting 5.0 Blood Gas Pressure Support 10 Blood Gas Notified Whom BRIGHTD Blood Gas Notified Time 08/15/2016 11:10:59 AM Bedside Glucose 72 81 White Blood Count 11.7 H Red Blood Count 3.07 L Hemoglobin 9.7 L Hematocrit 30.2 L Mean Corpuscular Volume 98.4 Mean Corpuscular Hemoglobin 31.6 Mean Corpuscular Hemoglobin Concent 32.1 Red Cell Distribution Width 17.7 H Platelet Count 177 # Mean Platelet Volume 12.9 H Neutrophils % 76.7 Lymphocytes % 12.8 L Monocytes % 9.2 Eosinophils % 0.2 Basophils % 0.2 Nucleated Red Blood Cells % 0.2 H Neutrophils # 9.0 H Lymphocytes # 1.5 Monocytes # 1.1 H Eosinophils # 0.0 Basophils # 0.0 Nucleated Red Blood Cells # 0.0 Sodium Level 143 Potassium Level 4.0 Chloride Level 107 Carbon Dioxide Level 28 Anion Gap 12 Blood Urea Nitrogen 42 H Creatinine 1.55 H Glucose Level 70 Calcium Level 9.8 Phosphorus Level 5.6 H Magnesium Level 2.2 Test 08/16/16 06:14 08/16/16 06:44 Bedside Glucose 64 L 91 Medications Medications Current Medications Lorazepam (Ativan) 0.5 mg Q6H PRN IV ANXIETY Last administered on 08/07/16t 23: 23; Admin Dose 0.5 MG; Start 08/01/16 at 03:00 Ondansetron HCl (Zofran Inj) 4 mg Q6H PRN IV NAUSEA AND/OR VOMITING; Start at 03:00 Metoclopramide HCl (Reglan) 10 mg Q6H PRN IV NAUSEA AND/OR VOMITING; Start at 03:00 Acetaminophen (Tylenol Tab) 650 mg Q6H PRN PO PAIN LEVEL 1-3 OR FEVER Last administered on 08/15/16 21:05; Admin Dose 650 MG; Start 08/01/16 at 03:00 Acetaminophen 650 mg 650 mg Q4H PRN [place] PAIN LEVEL 1-3 OR FEVER; Start 08/01/16 at 06:30 Propofol 100 ml @ 3.33 mls/hr Q12H IV Last administered on 08/15/16 05:57; Admin Dose 23.31 MLS/HR; Start 08/01/16 at 09:30 Phenylephrine HCl 40 mg/Dextrose 500 ml @ 0 mls/hr TITRATE IV Last administered on 08/02/16 04:58; Admin Dose 112.5 MLS/HR; Start 08/01/16 at 16:00 Norepinephrine 16 mg/Dextrose 500 ml @ 0 mls/hr TITRATE IV Last administered on 08/06/16 00:10; Admin Dose 30 MLS/HR; Start 08/01/16 at 16:00 Vasopressin 60 unit/Dextrose 60 ml @ 1.2 mls/hr Q12H IV Last administered on 03:55; Admin Dose 2.4 MLS/HR; Start 08/01/16 at 17:30 Epinephrine/ Sodium Chloride (EPINEPHrine/NS) 250 ml @ 3.75 mls/hr TITRATE IV Last administered on 08/01/16 18:50; Admin Dose 3.75 MLS/HR; Start 08/01/16 at 19:30 Eye Lubricant (Artificial Tears Oph) 2 drop QID BOTH EYES Last administered on 08/15/16 21:05; Admin Dose 2 DROP; Start 08/02/16 at 09:00 Miscellaneous Information 1 ea NOTE XX ; Start 08/02/16 at 09:00 Glucose (Glutose) 15 gm Q15M PRN PO DECREASED GLUCOSE; Start 08/02/16 at 09:00 Glucose (Glutose) 22.5 gm Q15M PRN PO DECREASED GLUCOSE; Start 08/02/16 at 09:00 Dextrose (D50w Syringe) 25 ml Q15M PRN IV DECREASED GLUCOSE Last administered on 08/16/16 06:30; Admin Dose 25 ML; Start 08/02/16 at 09:00 Dextrose (D50w Syringe) 50 ml Q15M PRN IV DECREASED GLUCOSE; Start 08/02/16 at 09:00 Glucagon (Glucagen) 1 mg Q15M PRN IM DECREASED GLUCOSE; Start 08/02/16 at 09:00 Glucose 15 gm 15 gm Q15M PRN BUCCAL DECREASED GLUCOSE; Start 08/02/16 at 09:00 Midazolam HCl 50 ml @ 1 mls/hr TITRATE IV Last administered on 08/12/16 12:06 ; Admin Dose 5 MLS/HR; Start 08/02/16 at 09:30 Fentanyl (Sublimaze) 100 ml @ 2.5 mls/hr TITRATE IV Last administered on 06:26; Admin Dose 7.5 MLS/HR; Start 08/02/16 at 09:30 Levothyroxine Sodium (Synthroid) 125 mcg DAILY@06 NGT Last administered on 08/16 06:13; Admin Dose 125 MCG; Start 08/08/16 at 06:00 Calcium Carbonate (Ca Carbonate) 1,250 mg Q12 NGT Last administered on 21:05; Admin Dose 1,250 MG; Start 08/11/16 at 09:00 IV Flush (NS 10 ml) 10 ml PRN PRN IV FLUSH LINE; Start 08/11/16 at 20:00 Hydralazine HCl (Apresoline) 10 mg Q4H PRN IV SBP >160 Last administered on 13:06; Admin Dose 10 MG; Start 08/13/16 at 03:30 Insulin Aspart (Novolog Insulin Pen) NOVOLOG *MODERATE* ALGORI... Q8 SC ; Start 08/13/16 at 14:00 Heparin Sodium (Porcine) (Heparin (5000 Units/0.5 ml)) 5,000 unit BID SC Last administered on 08/15/16 21:09; Admin Dose 5,000 UNIT; Start 08/15/16 at 09:00 Pantoprazole (Protonix Iv) 40 mg DAILY IV ; Start 08/16/16 at 09:00 Furosemide (Lasix) 20 mg DAILY IV ; Start 08/17/16 at 09:00 Amlodipine Besylate (Norvasc) 10 mg DAILY PO ; Start 08/16/16 at 09:00 SEPIDEH HAN Aug 16, 2016 08:08
[2016-08-16] MEDS: CA CARBONATE (250 MG/ML) 5ML CUP NGT SCH ×2 (08:28→20:25)
[2016-08-16] MEDS: HYDROmorphONE 1 MG/ML SYG IV PRN ×2 (08:29→20:26)
[2016-08-16] MEDS: PANTOPRAZOLE 40 MG INJ IV SCH (08:29)
[2016-08-16] MEDS: AMLODIPINE 10 MG TAB PO SCH (08:29)
[2016-08-16] MEDS: ARTIFICIAL TEARS 15 ML OPH BOTH EYES SCH (08:30)
[2016-08-16 08:32] LABS: AADO2 Arterial 159.5 mmHg (7.0-24.0); Allen Test ACCEPTAB; Arterial Base Excess 1.8 mmol/L (-3.0-3); Arterial COHb 0.5 % (0.0-3.0); Arterial Fraction of Oxyhgb 93.4 % (93.0-99.0); Arterial HCO3 25.6 mmol/L (22.0-26.0); Arterial MetHb 0.4 % (0.0-1.5); Arterial Total Hemglobin 11.6 g/dl (12.0-18.0); MODE NASAL CANNULA
[2016-08-16] MEDS: HEPARIN 5,000 UNIT/0.5 ML VIAL SC SCH (08:32)
[2016-08-16] MEDS: ACETAMINOPHEN 325 MG TAB PO PRN (08:33)
--- NOTE | 2016-08-16 08:55 | CONS ---
Date/Time of Note Date/Time of Note DATE: 08/16/16 TIME: 08:52 Assessment/Plan Assessment/Plan Chief Complaint/Hosp Course 60-year-old right-handed -[place] gentleman normally cared for at the [facility] system. He was admitted to the hospital but it had cardiac arrest in the hospital. Please note that his picture actually looked a bit like adrenal insufficiency except that he has a serum cortisol level of 44 prior to his arrest. He had a TSH of 21 with a low free T4 and a low T3. Patient is intubated and unable to give a history although he is able to look and follows rudimentary commands. At this time many of his metabolic abnormalities have improved. Problems: (1) Hypothyroidism Status: Chronic Comment: Continue replacement and I will get the labs to check. At this time patient is stable for transfer out of the ICU and possibly transfer over to the facility where he is normally treated Qualifiers: Hypothyroidism type: acquired Qualified Code: E03.9 - Acquired hypothyroidism Consultation Date/Type/Reason Admit Date/Time August 01, 2016 at 00:50 Initial Consult Date 08/01/16 Type of Consultation: Endocrinology Reason for Consultation Hypothyroidism; multiple metabolic disturbances. Referring Provider: NIKOLE KWON MD, [facility] 24 HR Interval Summary Free Text/Dictation Patient is able to converse minimally. Exam/Review of Systems Vital Signs Vitals Vital Signs Date Time Temp Pulse Resp B/P Pulse Ox O2 Delivery O2 Flow Rate FiO2 08/16/16 07:44 95 6.0 08/16/16 07:44 84 30 Nasal Cannula 08/16/16 06:00 154/76 08/16/16 05:00 98.3 08/15/16 11:18 30 Intake and Output 08/15/16 08/15/16 08/16/16 14:59 22:59 06:59 Intake Total 151.62 ml 80 ml 80 ml Output Total 860 ml 1725 ml 510 ml Balance -708.38 ml -1645 ml -430 ml Exam Constitutional: alert Neck: non-tender, supple Respiratory: clear to auscultation, normal air movement Cardiovascular: nl pulses, regular rate and rhythm Gastrointestinal: nl liver, spleen, non-tender, soft Results Result Diagram: 08/16/16 0500 08/16/16 0500 Results 24 hrs Laboratory Tests Test 08/15/16 11:00 08/15/16 13:17 08/15/16 22:04 08/16/16 05:00 Blood Gas Specimen Source Blood arterial Arterial Blood Date Drawn 08/15/2016 10:55:21 AM Arterial Blood pH (Temp corrected) 7.412 Arterial Blood pCO2 (Temp correct) 36.5 Arterial Blood pO2 (Temp corrected) 77.6 L Arterial Blood HCO3 22.7 Arterial Blood Base Excess -1.5 Arterial Blood Oxygen Saturation 93.9 L Stanley Test ACCEPTAB Arterial Blood Gas Puncture Site Right Radial Arterial Blood Carboxyhemoglobin 0.3 Arterial Blood Methemoglobin 0.4 Blood Gas A-a O2 Differential 93.4 H Oxyhemoglobin Percent 93.2 Total Hemoglobin 11.0 L Blood Gas Temperature 37.0 Blood Gas Actual Respiration Rate 28 Blood Gas Modality VENT - CPAP FiO2 30.0 Blood Gas Low PEEP Setting 5.0 Blood Gas Pressure Support 10 Blood Gas Notified Whom JLD Blood Gas Notified Time 08/15/2016 11:10:59 AM Bedside Glucose 72 81 White Blood Count 11.7 H Red Blood Count 3.07 L Hemoglobin 9.7 L Hematocrit 30.2 L Mean Corpuscular Volume 98.4 Mean Corpuscular Hemoglobin 31.6 Mean Corpuscular Hemoglobin Concent 32.1 Red Cell Distribution Width 17.7 H Platelet Count 177 # Mean Platelet Volume 12.9 H Neutrophils % 76.7 Lymphocytes % 12.8 L Monocytes % 9.2 Eosinophils % 0.2 Basophils % 0.2 Nucleated Red Blood Cells % 0.2 H Neutrophils # 9.0 H Lymphocytes # 1.5 Monocytes # 1.1 H Eosinophils # 0.0 Basophils # 0.0 Nucleated Red Blood Cells # 0.0 Sodium Level 143 Potassium Level 4.0 Chloride Level 107 Carbon Dioxide Level 28 Anion Gap 12 Blood Urea Nitrogen 42 H Creatinine 1.55 H Glucose Level 70 Calcium Level 9.8 Phosphorus Level 5.6 H Magnesium Level 2.2 Test 08/16/16 06:14 08/16/16 06:44 08/16/16 07:00 Bedside Glucose 64 L 91 Blood Gas Specimen Source Blood arterial Arterial Blood Date Drawn 08/16/2016 7:42:09 AM Arterial Blood pH (Temp corrected) 7.454 H Arterial Blood pCO2 (Temp correct) 37.4 Arterial Blood pO2 (Temp corrected) 75.5 L Arterial Blood HCO3 25.6 Arterial Blood Base Excess 1.8 Arterial Blood Oxygen Saturation 94.2 L Stanley Test ACCEPTAB Arterial Blood Gas Puncture Site Right Radial Arterial Blood Carboxyhemoglobin 0.5 Arterial Blood Methemoglobin 0.4 Blood Gas A-a O2 Differential 159.5 H Oxyhemoglobin Percent 93.4 Total Hemoglobin 11.6 L Blood Gas Temperature 37.0 Blood Gas Modality NASAL CANNULA FiO2 39.0 Blood Gas Notified Whom JLD Blood Gas Notified Time 08/16/2016 8:31:53 AM Medications Medications Current Medications Lorazepam (Ativan) 0.5 mg Q6H PRN IV ANXIETY Last administered on 08/07/16 23: 23; Admin Dose 0.5 MG; Start 08/01/16 at 03:00 Ondansetron HCl (Zofran Inj) 4 mg Q6H PRN IV NAUSEA AND/OR VOMITING; Start at 03:00 Metoclopramide HCl (Reglan) 10 mg Q6H PRN IV NAUSEA AND/OR VOMITING; Start at 03:00 Acetaminophen (Tylenol Tab) 650 mg Q6H PRN PO PAIN LEVEL 1-3 OR FEVER Last administered on 08/16/16 08:33; Admin Dose 650 MG; Start 08/01/16 at 03:00 Acetaminophen 650 mg 650 mg Q4H PRN PA PAIN LEVEL 1-3 OR FEVER; Start 08/01/16 at 06:30 Propofol 100 ml @ 3.33 mls/hr Q12H IV Last administered on 08/15/16 05:57; Admin Dose 23.31 MLS/HR; Start 08/01/16 at 09:30 Phenylephrine HCl 40 mg/Dextrose 500 ml @ 0 mls/hr TITRATE IV Last administered on 08/02/16 04:58; Admin Dose 112.5 MLS/HR; Start 08/01/16 at 16:00 Norepinephrine 16 mg/Dextrose 500 ml @ 0 mls/hr TITRATE IV Last administered on 08/06/16 00:10; Admin Dose 30 MLS/HR; Start 08/01/16 at 16:00 Vasopressin 60 unit/Dextrose 60 ml @ 1.2 mls/hr Q12H IV Last administered on 03:55; Admin Dose 2.4 MLS/HR; Start 08/01/16 at 17:30 Epinephrine/ Sodium Chloride (EPINEPHrine/NS) 250 ml @ 3.75 mls/hr TITRATE IV Last administered on 08/01/16 18:50; Admin Dose 3.75 MLS/HR; Start 08/01/16 at 19:30 Eye Lubricant (Artificial Tears Oph) 2 drop QID BOTH EYES Last administered on 08/16/16 08:30; Admin Dose 2 DROP; Start 08/02/16 at 09:00 Miscellaneous Information 1 ea NOTE XX ; Start 08/02/16 at 09:00 Glucose (Glutose) 15 gm Q15M PRN PO DECREASED GLUCOSE; Start 08/02/16 at 09:00 Glucose (Glutose) 22.5 gm Q15M PRN PO DECREASED GLUCOSE; Start 08/02/16 at 09:00 Dextrose (D50w Syringe) 25 ml Q15M PRN IV DECREASED GLUCOSE Last administered on 08/16/16 06:30; Admin Dose 25 ML; Start 08/02/16 at 09:00 Dextrose (D50w Syringe) 50 ml Q15M PRN IV DECREASED GLUCOSE; Start 08/02/16 at 09:00 Glucagon (Glucagen) 1 mg Q15M PRN IM DECREASED GLUCOSE; Start 08/02/16 at 09:00 Glucose 15 gm 15 gm Q15M PRN BUCCAL DECREASED GLUCOSE; Start 08/02/16 at 09:00 Midazolam HCl 50 ml @ 1 mls/hr TITRATE IV Last administered on 08/12/16 12:06 ; Admin Dose 5 MLS/HR; Start 08/02/16 at 09:30 Fentanyl (Sublimaze) 100 ml @ 2.5 mls/hr TITRATE IV Last administered on 06:26; Admin Dose 7.5 MLS/HR; Start 08/02/16 at 09:30 Levothyroxine Sodium (Synthroid) 125 mcg DAILY@06 NGT Last administered on 08/16 06:13; Admin Dose 125 MCG; Start 08/08/16 at 06:00 Calcium Carbonate (Ca Carbonate) 1,250 mg Q12 NGT Last administered on 08:28; Admin Dose 1,250 MG; Start 08/11/16 at 09:00 IV Flush (NS 10 ml) 10 ml PRN PRN IV FLUSH LINE; Start 6/10/17 at 20:00 Hydralazine HCl (Apresoline) 10 mg Q4H PRN IV SBP >160 Last administered on 13:06; Admin Dose 10 MG; Start 08/13/16 at 03:30 Insulin Aspart (Novolog Insulin Pen) NOVOLOG *MODERATE* ALGORI... Q8 SC ; Start 08/13/16 at 14:00 Heparin Sodium (Porcine) (Heparin (5000 Units/0.5 ml)) 5,000 unit BID SC Last administered on 08/16/16 08:32; Admin Dose 5,000 UNIT; Start 08/15/16 at 09:00 Pantoprazole (Protonix Iv) 40 mg DAILY IV Last administered on 08/16/16 08:29 ; Admin Dose 40 MG; Start 08/16/16 at 09:00 Furosemide (Lasix) 20 mg DAILY IV ; Start 08/17/16 at 09:00 Amlodipine Besylate (Norvasc) 10 mg DAILY PO Last administered on 08/16/16 08: 29; Admin Dose 10 MG; Start 08/16/16 at 09:00 Hydromorphone HCl (Dilaudid) 1 mg Q4H PRN IV PAIN Last administered on 08:29; Admin Dose 1 MG; Start 08/16/16 at 08:30 ERIN MARTÍNEZ MD Aug 16, 2016 08:55
[2016-08-16] MEDS: PROPOFOL 100 ML IV SCH (09:30)
--- NOTE | 2016-08-16 10:12 | RADRPT ---
PROCEDURE: US upper extremity Venous. CLINICAL INDICATION: Left arm swelling TECHNIQUE: Multiple sonographic images of the left upper extremity venous system was obtained util izing grayscale, color-flow, compressive sonography and doppler imaging with augmentation. The imag es were reviewed on a PACS workstation. COMPARISON: None. FINDINGS: There is no flow and abnormal compressibility of the left cephalic vein in the upper arm consistent with occlusive thrombosis. There is normal compressibility and flow within the left internal jugular vein, subclavian vein, axi llary vein, brachial, basilic, radial and ulnar veins. RPTAT: AA IMPRESSION: No DVT in the left upper extremity. Occlusive thrombosis of the left cephalic vein in the upper arm. Physician Ismael Date Time Electronically viewed and signed by Physician Ismael on 08/16/2016 10:12 RA/
--- NOTE | 2016-08-16 10:13 | RADRPT ---
PROCEDURE: XR Chest. CLINICAL INDICATION: pna chf TECHNIQUE: Single frontal view of the chest was obtained. COMPARISON: Chest x-ray from 08/15/2016 FINDINGS: There has been interval extubation. An enteric tube is again noted in the stomach. There is stable mild cardiomegaly with moderate to severe pulmonary vascular congestion which has in creased. There is a stable retrocardiac opacity due to atelectasis, infiltrate, and / or effusion. A left-sided PICC line is unchanged in position. IMPRESSION: Moderate to severe pulmonary vascular congestion which has increased. Underlying infiltrates cannot be excluded. Interval extubation. Stable retrocardiac opacity due to atelectasis, infiltrate, and / or effusion. Left-sided PICC line. RPTAT: EE Physician Ismael Date Time Electronically viewed and signed by Ed Casiano Physician on 08/16/2016 10:13 /
--- NOTE | 2016-08-16 10:46 | PN ---
DATE: 08/16/2016 PULMONARY FOLLOWUP SUBJECTIVE: The patient Kapil was extubated yesterday. He is awake, alert, and oriented this morn ing. Nasogastric tube in place. Remains hemodynamically stable. PHYSICAL EXAMINATION: VITAL SIGNS: Temperature 98, pulse 78, blood pressure 154/76, O2 saturation 96%, FIO2 of 6 liters. NECK: Supple. No JVD or lymphadenopathy. CARDIAC: S1, S2, no added sounds or murmurs. CHEST: Diminished air entry bilaterally. ABDOMEN: Soft, nontender. No guarding or rebound. EXTREMITIES: No cyanosis, clubbing, edema. NEUROLOGIC: Generalized weakness, but no focal deficits. LABORATORY DATA: White count 11.7, hemoglobin 9.7, platelets 177. BUN 42, creatinine 1.55. ABG: pH of 7.45, pCO2 of 37, PaO2 of 75 on 35% FIO2. IMPRESSION: 1. Acute hypoxemic respiratory failure with ARDS and volume overload, now improving with extubation yesterday. 2. Acute kidney injury with now resolving BUN and creatinine, off hemodialysis for the past few day s. 3. Hypothyroidism. Continue thyroid replacement. 4. History of cardiopulmonary arrest with return of circulation. 5. History of ETOH abuse. PLAN: 1. Continue supplemental O2. 2. Continue pulmonary toilet. 3. I would consider increasing diuresis as there is evidence of worsening pulmonary edema and hypox emia. 4. Continue DVT and GI prophylaxis. 5. Speech therapy evaluation. 6. PT evaluation, encourage ambulation. Dictated By: NIKOLE FARFAN/CHARLES Conf#: [id number] DID#: [id number]
--- NOTE | 2016-08-16 11:16 | PN ---
Date/Time of Note Date/Time of Note DATE: 08/16/16 TIME: 11:14 Assessment/Plan VTE Prophylaxis VTE Prophylaxis Intervention: heparin Lines/Catheters IV Catheter Type (from Nrs): PICC Line Central line still needed: Yes Urinary Cath still in place: Yes Reason Cath still needed: other (indicate) Assessment/Plan Assessment/Plan 60-year-old male who had presented to the emergency room with diarrhea and vomiting and was found to be in severe renal failure but suffered a cardiac arrest while in the emergency room. He is now managed as follows: 1. Status post cardiac arrest with ROSC 2/2 severe metabolic acidosis from #4 2. Acute encephalopathy secondary to #1 [toxic metabolic]: improved 3. Acute Respiratory failure with probable ARDS and pulmonary edema per pulmonary: improving / now off vent 4. Severe acute renal failure that required HD / now off HD with good UOP > Stable CKD 5. S/p Severe Sepsis with septic shock and lactic acidosis now off pressors 6. Newly diagnosed Hypothyroidism 7. Chronic Alcohol use and abuse 8. Anemia likely secondary to chronic disease but a component of malnutrition from chronic alcohol abuse 9. Enterocolitis: resolved 10. Thrombocytopenia 2/2 Sepsis: resolved 11. Severe fatty liver: transaminitis ahd hyperbilirubinemia resolved 12. s/p Bilateral pneumonia likely aspiration 13. S/p Coagulase neg Staph UTI 14. Positive stool occult blood on twice daily PPI 15. S/p Steroid-induced hyperglycemia: resolved ? 16. Hypertension: still with suboptimal control 17. LUE DVT PLAN: * Swallow eval * Tele transfer if ok with pulm * Patient stable for Transfer to [place] * PT eval * We will maintain PICC for now as it's still functioning and not infected / commence treatment dose anticoagulation and monitor closely * Continue all other current supportive care / serial lab monitoring Prophylaxis : Heparin / PPI CC time : 40mins Subjective 24 Hr Interval Summary Free Text/Dictation Patient remains stable after extubation. Plan for swallow eval today. Patient seems somewhat confused but he still able to respond appropriately. Complains of left upper extremity pain in the hands and wrists. Exam/Review of Systems Vital Signs Vitals Vital Signs Date Time Temp Pulse Resp B/P Pulse Ox O2 Delivery O2 Flow Rate FiO2 08/16/16 10:00 94 36 136/89 95 Nasal Cannula 08/16/16 08:00 98.6 08/16/16 07:44 6.0 6/14/17 11:18 30 Intake and Output 08/15/16 08/15/16 08/16/16 15:00 23:00 07:00 Intake Total 151.62 ml 80 ml 80 ml Output Total 710 ml 1800 ml 685 ml Balance -558.38 ml -1720 ml -605 ml Exam Constitutional: alert, obese, oriented (To self and place), No distress Psych: other Head: atraumatic, normocephalic Eyes: PERRL, No nl conjunctiva (Mild bilateral) ENMT: No mucosa pink and moist (Dry) Respiratory: diminished breath sounds, No crackles/rales, No wheezing Cardiovascular: regular rate and rhythm, No murmurs/extra sounds Gastrointestinal: bowel sounds, non-tender, soft Extremities: other (Left upper extremity swollen at the hand and proximal one third of the forearm) Neurological: confused (Mildly), lethargic Results Result Diagram: 08/16/16 0500 08/16/16 0500 Results 24 hrs Laboratory Tests Test 08/15/16 13:17 08/15/16 22:04 08/16/16 05:00 08/16/16 06:14 Bedside Glucose 72 81 64 L White Blood Count 11.7 H Red Blood Count 3.07 L Hemoglobin 9.7 L Hematocrit 30.2 L Mean Corpuscular Volume 98.4 Mean Corpuscular Hemoglobin 31.6 Mean Corpuscular Hemoglobin Concent 32.1 Red Cell Distribution Width 17.7 H Platelet Count 177 # Mean Platelet Volume 12.9 H Neutrophils % 76.7 Lymphocytes % 12.8 L Monocytes % 9.2 Eosinophils % 0.2 Basophils % 0.2 Nucleated Red Blood Cells % 0.2 H Neutrophils # 9.0 H Lymphocytes # 1.5 Monocytes # 1.1 H Eosinophils # 0.0 Basophils # 0.0 Nucleated Red Blood Cells # 0.0 Sodium Level 143 Potassium Level 4.0 Chloride Level 107 Carbon Dioxide Level 28 Anion Gap 12 Blood Urea Nitrogen 42 H Creatinine 1.55 H Glucose Level 70 Calcium Level 9.8 Phosphorus Level 5.6 H Magnesium Level 2.2 Test 08/16/16 06:44 08/16/16 07:00 Bedside Glucose 91 Blood Gas Specimen Source Blood arterial Arterial Blood Date Drawn 08/16/2016 7:42:09 AM Arterial Blood pH (Temp corrected) 7.454 H Arterial Blood pCO2 (Temp correct) 37.4 Arterial Blood pO2 (Temp corrected) 75.5 L Arterial Blood HCO3 25.6 Arterial Blood Base Excess 1.8 Arterial Blood Oxygen Saturation 94.2 L Stanley Test ACCEPTAB Arterial Blood Gas Puncture Site Right Radial Arterial Blood Carboxyhemoglobin 0.5 Arterial Blood Methemoglobin 0.4 Blood Gas A-a O2 Differential 159.5 H Oxyhemoglobin Percent 93.4 Total Hemoglobin 11.6 L Blood Gas Temperature 37.0 Blood Gas Modality NASAL CANNULA FiO2 39.0 Blood Gas Notified Whom JLD Blood Gas Notified Time 08/16/2016 8:31:53 AM Medications Medications Current Medications Lorazepam (Ativan) 0.5 mg Q6H PRN IV ANXIETY Last administered on 08/07/16 23: 23; Admin Dose 0.5 MG; Start 08/01/16 at 03:00 Ondansetron HCl (Zofran Inj) 4 mg Q6H PRN IV NAUSEA AND/OR VOMITING; Start at 03:00 Metoclopramide HCl (Reglan) 10 mg Q6H PRN IV NAUSEA AND/OR VOMITING; Start at 03:00 Acetaminophen (Tylenol Tab) 650 mg Q6H PRN PO PAIN LEVEL 1-3 OR FEVER Last administered on 08/16/16 08:33; Admin Dose 650 MG; Start 08/01/16 at 03:00 Acetaminophen 650 mg 650 mg Q4H PRN OR PAIN LEVEL 1-3 OR FEVER; Start 08/01/16 at 06:30 Propofol 100 ml @ 3.33 mls/hr Q12H IV Last administered on 08/15/16 05:57; Admin Dose 23.31 MLS/HR; Start 08/01/16 at 09:30 Phenylephrine HCl 40 mg/Dextrose 500 ml @ 0 mls/hr TITRATE IV Last administered on 08/02/16 04:58; Admin Dose 112.5 MLS/HR; Start 08/01/16 at 16:00 Norepinephrine 16 mg/Dextrose 500 ml @ 0 mls/hr TITRATE IV Last administered on 08/06/16 00:10; Admin Dose 30 MLS/HR; Start 08/01/16 at 16:00 Vasopressin 60 unit/Dextrose 60 ml @ 1.2 mls/hr Q12H IV Last administered on 03:55; Admin Dose 2.4 MLS/HR; Start 08/01/16 at 17:30 Epinephrine/ Sodium Chloride (EPINEPHrine/NS) 250 ml @ 3.75 mls/hr TITRATE IV Last administered on 08/01/16 18:50; Admin Dose 3.75 MLS/HR; Start 08/01/16 at 19:30 Eye Lubricant (Artificial Tears Oph) 2 drop QID BOTH EYES Last administered on 08/16/16 08:30; Admin Dose 2 DROP; Start 08/02/16 at 09:00 Miscellaneous Information 1 ea NOTE XX ; Start 08/02/16 at 09:00 Glucose (Glutose) 15 gm Q15M PRN PO DECREASED GLUCOSE; Start 08/02/16 at 09:00 Glucose (Glutose) 22.5 gm Q15M PRN PO DECREASED GLUCOSE; Start 08/02/16 at 09:00 Dextrose (D50w Syringe) 25 ml Q15M PRN IV DECREASED GLUCOSE Last administered on 08/16/16 06:30; Admin Dose 25 ML; Start 08/02/16 at 09:00 Dextrose (D50w Syringe) 50 ml Q15M PRN IV DECREASED GLUCOSE; Start 08/02/16 at 09:00 Glucagon (Glucagen) 1 mg Q15M PRN IM DECREASED GLUCOSE; Start 08/02/16 at 09:00 Glucose 15 gm 15 gm Q15M PRN BUCCAL DECREASED GLUCOSE; Start 08/02/16 at 09:00 Midazolam HCl 50 ml @ 1 mls/hr TITRATE IV Last administered on 08/12/16 12:06 ; Admin Dose 5 MLS/HR; Start 08/02/16 at 09:30 Fentanyl (Sublimaze) 100 ml @ 2.5 mls/hr TITRATE IV Last administered on 06:26; Admin Dose 7.5 MLS/HR; Start 08/02/16 at 09:30 Levothyroxine Sodium (Synthroid) 125 mcg DAILY@06 NGT Last administered on 08/16 06:13; Admin Dose 125 MCG; Start 08/08/16 at 06:00 Calcium Carbonate (Ca Carbonate) 1,250 mg Q12 NGT Last administered on 08:28; Admin Dose 1,250 MG; Start 08/11/16 at 09:00 IV Flush (NS 10 ml) 10 ml PRN PRN IV FLUSH LINE; Start 08/11/16 at 20:00 Hydralazine HCl (Apresoline) 10 mg Q4H PRN IV SBP >160 Last administered on 13:06; Admin Dose 10 MG; Start 08/13/16 at 03:30 Insulin Aspart (Novolog Insulin Pen) NOVOLOG *MODERATE* ALGORI... Q8 SC ; Start 08/13/16 at 14:00 Pantoprazole (Protonix Iv) 40 mg DAILY IV Last administered on 08/16/16 08:29 ; Admin Dose 40 MG; Start 08/16/16 at 09:00 Amlodipine Besylate (Norvasc) 10 mg DAILY PO Last administered on 08/16/16 08: 29; Admin Dose 10 MG; Start 08/16/16 at 09:00 Hydromorphone HCl (Dilaudid) 1 mg Q4H PRN IV PAIN Last administered on 08:29; Admin Dose 1 MG; Start 08/16/16 at 08:30 Enoxaparin Sodium (Lovenox) 110 mg Q12 SC ; Start 08/16/16 at 13:00 Procedures Procedures PROCEDURE: US upper extremity Venous. CLINICAL INDICATION: Left arm swelling TECHNIQUE: Multiple sonographic images of the left upper extremity venous system was obtained utilizing grayscale, color-flow, compressive sonography and doppler imaging with augmentation. The images were reviewed on a PACS workstation. COMPARISON: None. FINDINGS: There is no flow and abnormal compressibility of the left cephalic vein in the upper arm consistent with occlusive thrombosis. There is normal compressibility and flow within the left internal jugular vein, subclavian vein, axillary vein, brachial, basilic, radial and ulnar veins. RPTAT: AA IMPRESSION: No DVT in the left upper extremity. Occlusive thrombosis of the left cephalic vein in the upper arm. Ed Casiano Physician Date Time Electronically viewed and signed by Ed Casiano Physician on 08/16/2016 10:12 RA/ CC: KOLBY ALBERT BOLATITO M. Aug 16, 2016 11:16
--- NOTE | 2016-08-16 12:55 | CONS ---
Date/Time of Note Date/Time of Note DATE: 08/16/16 TIME: 12:54 Assessment/Plan Assessment/Plan Chief Complaint/Hosp Course SUBJECTIVE: S/p extubated, awake, looks comfortable, no fevers. INDWELLINGS: PICC, right femoral Deni catheter, Silver. MICROBIOLOGY: Blood cultures have been negative. Urine culture negative. Stool for C. diff negative. PHYSICAL EXAMINATION: GENERAL: Chronically ill-appearing, middle-aged man who is intubated and sedated, in no distress. HEENT: Head atraumatic, normocephalic. Sclerae anicteric. Buccal mucosa dry. NECK: Supple, trachea midline. CHEST: Rise symmetrical. Breath sounds diminished to bases. HEART: S1, S2. ABDOMEN: Distended, soft. Bowel tones hypoactive. EXTREMITIES: Bilateral edema. ASSESSMENT: 1. S/p sepsis with shock 2. Acute respiratory failure. 3. Acute kidney injury, started on hemodialysis. 4. Status post cardiopulmonary arrest. 5. Encephalopathy. 6. History of ETOH abuse. 7. Diarrhea===> neg C dif 8. Leukocytosis===> resolving, off steroids PLAN: The patient remains stable post extubation, completed abx, continue present care and reculture prn. DW staff Problems: Consultation Date/Type/Reason Admit Date/Time August 01, 2016 at 00:50 Initial Consult Date 08/01/16 Type of Consultation: ID Referring Provider: NIKOLE KWON MD, [facility] Exam/Review of Systems Vital Signs Vitals Vital Signs Date Time Temp Pulse Resp B/P Pulse Ox O2 Delivery O2 Flow Rate FiO2 08/16/16 12:04 Nasal Cannula 5.0 08/16/16 12:00 81 32 139/80 96 08/16/16 08:00 98.6 08/15/16 11:18 30 Intake and Output 08/15/16 08/15/16 08/16/16 15:00 23:00 07:00 Intake Total 151.62 ml 80 ml 80 ml Output Total 710 ml 1800 ml 685 ml Balance -558.38 ml -1720 ml -605 ml Results Result Diagram: 08/16/16 0500 08/16/16 0500 Results 24 hrs Laboratory Tests Test 08/15/16 13:17 08/15/16 22:04 08/16/16 05:00 08/16/16 06:14 Bedside Glucose 72 81 64 L White Blood Count 11.7 H Red Blood Count 3.07 L Hemoglobin 9.7 L Hematocrit 30.2 L Mean Corpuscular Volume 98.4 Mean Corpuscular Hemoglobin 31.6 Mean Corpuscular Hemoglobin Concent 32.1 Red Cell Distribution Width 17.7 H Platelet Count 177 # Mean Platelet Volume 12.9 H Neutrophils % 76.7 Lymphocytes % 12.8 L Monocytes % 9.2 Eosinophils % 0.2 Basophils % 0.2 Nucleated Red Blood Cells % 0.2 H Neutrophils # 9.0 H Lymphocytes # 1.5 Monocytes # 1.1 H Eosinophils # 0.0 Basophils # 0.0 Nucleated Red Blood Cells # 0.0 Sodium Level 143 Potassium Level 4.0 Chloride Level 107 Carbon Dioxide Level 28 Anion Gap 12 Blood Urea Nitrogen 42 H Creatinine 1.55 H Glucose Level 70 Calcium Level 9.8 Phosphorus Level 5.6 H Magnesium Level 2.2 Test 08/16/16 06:44 08/16/16 07:00 Bedside Glucose 91 Blood Gas Specimen Source Blood arterial Arterial Blood Date Drawn 08/16/2016 7:42:09 AM Arterial Blood pH (Temp corrected) 7.454 H Arterial Blood pCO2 (Temp correct) 37.4 Arterial Blood pO2 (Temp corrected) 75.5 L Arterial Blood HCO3 25.6 Arterial Blood Base Excess 1.8 Arterial Blood Oxygen Saturation 94.2 L Stanley Test ACCEPTAB Arterial Blood Gas Puncture Site Right Radial Arterial Blood Carboxyhemoglobin 0.5 Arterial Blood Methemoglobin 0.4 Blood Gas A-a O2 Differential 159.5 H Oxyhemoglobin Percent 93.4 Total Hemoglobin 11.6 L Blood Gas Temperature 37.0 Blood Gas Modality NASAL CANNULA FiO2 39.0 Blood Gas Notified Whom JLD Blood Gas Notified Time 08/16/2016 8:31:53 AM Medications Medications Current Medications Lorazepam (Ativan) 0.5 mg Q6H PRN IV ANXIETY Last administered on 08/07/16t 23: 23; Admin Dose 0.5 MG; Start 08/01/16 at 03:00 Ondansetron HCl (Zofran Inj) 4 mg Q6H PRN IV NAUSEA AND/OR VOMITING; Start at 03:00 Metoclopramide HCl (Reglan) 10 mg Q6H PRN IV NAUSEA AND/OR VOMITING; Start at 03:00 Acetaminophen (Tylenol Tab) 650 mg Q6H PRN PO PAIN LEVEL 1-3 OR FEVER Last administered on 08/16/16 08:33; Admin Dose 650 MG; Start 08/01/16 at 03:00 Acetaminophen 650 mg 650 mg Q4H PRN PA PAIN LEVEL 1-3 OR FEVER; Start 08/01/16 at 06:30 Propofol 100 ml @ 3.33 mls/hr Q12H IV Last administered on 08/15/16 05:57; Admin Dose 23.31 MLS/HR; Start 08/01/16 at 09:30 Phenylephrine HCl 40 mg/Dextrose 500 ml @ 0 mls/hr TITRATE IV Last administered on 08/02/16 04:58; Admin Dose 112.5 MLS/HR; Start 08/01/16 at 16:00 Norepinephrine 16 mg/Dextrose 500 ml @ 0 mls/hr TITRATE IV Last administered on 08/06/16 00:10; Admin Dose 30 MLS/HR; Start 08/01/16 at 16:00 Vasopressin 60 unit/Dextrose 60 ml @ 1.2 mls/hr Q12H IV Last administered on 03:55; Admin Dose 2.4 MLS/HR; Start 08/01/16 at 17:30 Epinephrine/ Sodium Chloride (EPINEPHrine/NS) 250 ml @ 3.75 mls/hr TITRATE IV Last administered on 08/01/16 18:50; Admin Dose 3.75 MLS/HR; Start 08/01/16 at 19:30 Eye Lubricant (Artificial Tears Oph) 2 drop QID BOTH EYES Last administered on 08/16/16 08:30; Admin Dose 2 DROP; Start 08/02/16 at 09:00 Miscellaneous Information 1 ea NOTE XX ; Start 08/02/16 at 09:00 Glucose (Glutose) 15 gm Q15M PRN PO DECREASED GLUCOSE; Start 08/02/16 at 09:00 Glucose (Glutose) 22.5 gm Q15M PRN PO DECREASED GLUCOSE; Start 08/02/16 at 09:00 Dextrose (D50w Syringe) 25 ml Q15M PRN IV DECREASED GLUCOSE Last administered on 08/16/16 06:30; Admin Dose 25 ML; Start 08/02/16 at 09:00 Dextrose (D50w Syringe) 50 ml Q15M PRN IV DECREASED GLUCOSE; Start 08/02/16 at 09:00 Glucagon (Glucagen) 1 mg Q15M PRN IM DECREASED GLUCOSE; Start 08/02/16 at 09:00 Glucose 15 gm 15 gm Q15M PRN BUCCAL DECREASED GLUCOSE; Start 08/02/16 at 09:00 Midazolam HCl 50 ml @ 1 mls/hr TITRATE IV Last administered on 08/12/16 12:06 ; Admin Dose 5 MLS/HR; Start 08/02/16 at 09:30 Fentanyl (Sublimaze) 100 ml @ 2.5 mls/hr TITRATE IV Last administered on 06:26; Admin Dose 7.5 MLS/HR; Start 08/02/16 at 09:30 Levothyroxine Sodium (Synthroid) 125 mcg DAILY@06 NGT Last administered on 08/16 06:13; Admin Dose 125 MCG; Start 08/08/16 at 06:00 Calcium Carbonate (Ca Carbonate) 1,250 mg Q12 NGT Last administered on 08:28; Admin Dose 1,250 MG; Start 08/11/16 at 09:00 IV Flush (NS 10 ml) 10 ml PRN PRN IV FLUSH LINE; Start 08/11/16 at 20:00 Hydralazine HCl (Apresoline) 10 mg Q4H PRN IV SBP >160 Last administered on 13:06; Admin Dose 10 MG; Start 08/13/16 at 03:30 Insulin Aspart (Novolog Insulin Pen) NOVOLOG *MODERATE* ALGORI... Q8 SC ; Start 08/13/16 at 14:00 Pantoprazole (Protonix Iv) 40 mg DAILY IV Last administered on 08/16/16 08:29 ; Admin Dose 40 MG; Start 08/16/16 at 09:00 Amlodipine Besylate (Norvasc) 10 mg DAILY PO Last administered on 08/16/16 08: 29; Admin Dose 10 MG; Start 08/16/16 at 09:00 Hydromorphone HCl (Dilaudid) 1 mg Q4H PRN IV PAIN Last administered on 08:29; Admin Dose 1 MG; Start 08/16/16 at 08:30 Enoxaparin Sodium (Lovenox) 110 mg Q12 SC ; Start 08/16/16 at 13:00 RADHA ESCALANTE NP Aug 16, 2016 12:55
[2016-08-16 13:00] LABS: T3 UPTAKE 37.3 % (23.5-40.5)
[2016-08-16] MEDS: ENOXAPARIN 100 MG/ML SYG SC SCH ×2 (13:13→20:32)
[2016-08-16 13:18] LABS: THYROID STIMULATING HORMONE 24.5 MIU/L (0.465-4.680)
[2016-08-16] MEDS: hydrALAzine 20 MG INJ IV PRN (18:43)
[2016-08-17] VITALS (12 sets, daily range): BP systolic 124–175; BP diastolic 72–89; PULSE 89–101; RESP 17–18
[2016-08-17] MEDS: ACCU-CHEK XX SCH (01:22)
[2016-08-17] MEDS: LEVOTHYROXINE 125 MCG TAB NGT SCH (05:32)
[2016-08-17] MEDS: FUROSEMIDE 40 MG INJ IV SCH ×2 (05:32→17:28)
--- NOTE | 2016-08-17 07:47 | CONS ---
Date/Time of Note Date/Time of Note DATE: 08/17/16 TIME: 07:46 Assessment/Plan Assessment/Plan Chief Complaint/Hosp Course PEA cardiac arrest: secondary to severe metabolic acidosis. No VT/VF or EKG changes to suggest primary cardiac etiology. Trops ok, EF preserved. Acute respiratory failure: intubated during code.Likely ARDS and some component of fluid overload. Now extubated 08/15 Severe metabolic acidosis: likely was the culprit for the arrest. Resolved Shock: ?septic.Off pressors Acute renal failure: unclear etiology. Was on intermittent HD. Good UOP. HD stopped Hypoglycemia Hypothyroidism Diarrhea/n/v/colitis HTN: high again -amlodipine 10mg -add hydralazine 25mg TID, if renal function ok can switch to ACEI/ARB -lasix has been increased Problems: Consultation Date/Type/Reason Admit Date/Time August 01, 2016 at 00:50 Initial Consult Date 08/01/16 Type of Consultation: Cardiology Referring Provider: NIKOLE KWON MD, [facility] 24 HR Interval Summary Free Text/Dictation No o/n events. BP remains elevated. Exam/Review of Systems Vital Signs Vitals Vital Signs Date Time Temp Pulse Resp B/P Pulse Ox O2 Delivery O2 Flow Rate FiO2 08/17/16 04:48 97 08/17/16 04:23 98.4 17 162/89 08/17/16 00:29 5.0 08/17/16 00:00 98 08/16/16 20:50 Nasal Cannula 08/15/16 11:18 30 Intake and Output 08/16/16 08/16/16 08/17/16 15:00 23:00 07:00 Intake Total 100 ml 480 ml 650 ml Output Total 1050 ml 400 ml 1850 ml Balance -950 ml 80 ml -1200 ml Exam Constitutional: alert, oriented Neck: No jvd (difficult to examine ) Respiratory: diminished breath sounds, No clear to auscultation Cardiovascular: regular rate and rhythm, No edema Gastrointestinal: non-tender, soft Neurological: nl mental status, nl speech Results Result Diagram: 08/16/16 0500 08/16/16 0500 Results 24 hrs Laboratory Tests Test 08/16/16 17:11 08/16/16 20:23 Bedside Glucose 95 79 Medications Medications Current Medications Lorazepam (Ativan) 0.5 mg Q6H PRN IV ANXIETY Last administered on 08/07/16 23: 23; Admin Dose 0.5 MG; Start 08/01/16 at 03:00 Ondansetron HCl (Zofran Inj) 4 mg Q6H PRN IV NAUSEA AND/OR VOMITING; Start at 03:00 Metoclopramide HCl (Reglan) 10 mg Q6H PRN IV NAUSEA AND/OR VOMITING; Start at 03:00 Acetaminophen (Tylenol Tab) 650 mg Q6H PRN PO PAIN LEVEL 1-3 OR FEVER Last administered on 08/16/16 08:33; Admin Dose 650 MG; Start 08/01/16 at 03:00 Acetaminophen (Tylenol Supp) 650 mg Q4H PRN RI PAIN LEVEL 1-3 OR FEVER; Start 08/01/16 at 06:30 Miscellaneous Information 1 ea NOTE XX ; Start 08/02/16 at 09:00 Glucose (Glutose) 15 gm Q15M PRN PO DECREASED GLUCOSE; Start 08/02/16 at 09:00 Glucose (Glutose) 22.5 gm Q15M PRN PO DECREASED GLUCOSE; Start 08/02/16 at 09:00 Dextrose (D50w Syringe) 25 ml Q15M PRN IV DECREASED GLUCOSE Last administered on 08/16/16 06:30; Admin Dose 25 ML; Start 08/02/16 at 09:00 Dextrose (D50w Syringe) 50 ml Q15M PRN IV DECREASED GLUCOSE; Start 08/02/16 at 09:00 Glucagon (Glucagen) 1 mg Q15M PRN IM DECREASED GLUCOSE; Start 08/02/16 at 09:00 Glucose (Glutose) 15 gm Q15M PRN BUCCAL DECREASED GLUCOSE; Start 08/02/16 at 09: 00 Levothyroxine Sodium (Synthroid) 125 mcg DAILY@06 NGT Last administered on 08/17 05:32; Admin Dose 125 MCG; Start 08/08/16 at 06:00 Calcium Carbonate (Ca Carbonate) 1,250 mg Q12 NGT Last administered on 20:25; Admin Dose 1,250 MG; Start 08/11/16 at 09:00 IV Flush (NS 10 ml) 10 ml PRN PRN IV FLUSH LINE; Start 08/11/16 at 20:00 Hydralazine HCl (Apresoline) 10 mg Q4H PRN IV SBP >160 Last administered on 18:43; Admin Dose 10 MG; Start 08/13/16 at 03:30 Pantoprazole (Protonix Iv) 40 mg DAILY IV Last administered on 08/16/16 08:29 ; Admin Dose 40 MG; Start 08/16/16 at 09:00 Amlodipine Besylate (Norvasc) 10 mg DAILY PO Last administered on 08/16/16 08: 29; Admin Dose 10 MG; Start 08/16/16 at 09:00 Hydromorphone HCl (Dilaudid) 1 mg Q4H PRN IV PAIN Last administered on 20:26; Admin Dose 1 MG; Start 08/16/16 at 08:30 Enoxaparin Sodium (Lovenox) 110 mg Q12 SC Last administered on 08/16/16 20:32 ; Admin Dose 110 MG; Start 08/16/16 at 13:00 Diagnostic Test (Pha) (Accu-Chek) 1 ea 02 XX ; Start 08/17/16 at 02:00 Hydralazine HCl (Apresoline) 25 mg TID PO ; Start 08/17/16 at 09:00 SEPIDEH HAN Aug 17, 2016 07:47
[2016-08-17] MEDS: INSULIN ASPART [NOVOLOG] 3 ML PEN SC SCH ×4 (08:00→20:39)
[2016-08-17] MEDS: ALBUTEROL/IPRATROPIUM (NEB) 3 ML AMP HHN SCH ×3 (08:00→19:55)
[2016-08-17] MEDS: PANTOPRAZOLE 40 MG INJ IV SCH (08:19)
[2016-08-17] MEDS: CA CARBONATE (250 MG/ML) 5ML CUP NGT SCH ×2 (08:20→20:34)
[2016-08-17] MEDS: AMLODIPINE 10 MG TAB PO SCH (08:20)
[2016-08-17] MEDS: ENOXAPARIN 100 MG/ML SYG SC SCH (08:23)
[2016-08-17 08:32] LABS: CALCIUM 10.5 mg/dl (8.4-10.2); CREATININE 1.44 mg/dl (0.61-1.24); MAGNESIUM 2.1 mg/dl (1.7-2.5); PHOSPHORUS 4.8 mg/dl (2.5-4.9)
[2016-08-17] MEDS ORDERED: FUROSEMIDE 20 MG INJ IV SCH (09:00)
--- NOTE | 2016-08-17 10:34 | PN ---
DATE: 08/17/2016 SUBJECTIVE: The patient was transferred from intensive care unit to telemetry. The patient current ly is on 4 liters nasal cannula, but stable. No other events noted. OBJECTIVE: VITAL SIGNS: Blood pressure 162/80, respirations 18, pulse 87, temperature 98.0. HEENT: Head is normocephalic. NECK: Supple. HEART: Regular rate. LUNGS: Show diminished breath sounds at the bases. ABDOMEN: Soft, nontender to palpation. No rebound or guarding. EXTREMITIES: Negative for clubbing, cyanosis. No edema. DERMATOLOGIC: No rashes. MUSCULOSKELETAL: No joint effusions. NEUROLOGIC: No change in exam. MEDICATIONS: The patient's medications have been reviewed. LABORATORY DATA: Shows sodium 141, potassium 4.4, BUN 37, creatinine 1.44. White count 11.7, hemog lobin 9.7, platelet count is 177. ASSESSMENT AND PLAN: 1. Nonoliguric acute kidney injury with unknown baseline creatinine. Etiology is secondary to acut e tubular necrosis due to septic shock, ischemic hypoperfusion. The patient is status post hemodial ysis. The patient has shown excellent recovery. Continue current treatment plan, supportive care, renally dose all meds. 2. Volume overload secondary to acute kidney disease, congestive heart failure. The patient's last chest x-ray shows worsening congestion. Continue Lasix at 40 mg IV b.i.d. Repeat x-ray shows impr ovement. Continue to monitor. 3. Mineral bone disease. Continue to monitor calcium and phosphorus levels. 4. Anemia. Continue to monitor hemoglobin and hematocrit levels. 5. Respiratory failure, status post extubation. Currently stable on 4 liters nasal cannula, contin ue. Follow up with pulmonary. 6. Sepsis, status post shock. Continue current antibiotic regimen. 7. Dysphagia, tolerating modified diet, continue. 8. Hypothyroidism. Continue Synthroid. 9. Diabetes. Continue Accu-Cheks and insulin sliding scale. 10. History of ETOH abuse. 11. History of cardiopulmonary arrest. Dictated By: BALDOMERO TOVAR/CHARLES Conf#: [id number] DID#: [id number]
--- NOTE | 2016-08-17 10:49 | PN ---
Date/Time of Note Date/Time of Note DATE: 08/17/16 TIME: 10:42 Assessment/Plan VTE Prophylaxis VTE Prophylaxis Intervention: LMWH Lines/Catheters IV Catheter Type (from Nrs): PICC Line Central line still needed: Yes Urinary Cath still in place: Yes Reason Cath still needed: other (indicate) Assessment/Plan Assessment/Plan 60-year-old male who had presented to the emergency room with diarrhea and vomiting and was found to be in severe renal failure but suffered a cardiac arrest while in the emergency room. He is now managed as follows: 1. Status post cardiac arrest with ROSC 2/2 severe metabolic acidosis from #4 2. Acute encephalopathy secondary to #1 [toxic metabolic]: improved 3. Acute Respiratory failure with probable ARDS and pulmonary edema per pulmonary: improving / now off vent 4. Severe acute renal failure that required HD / now off HD with good UOP > Stable CKD 5. S/p Severe Sepsis with septic shock and lactic acidosis now off pressors 6. Newly diagnosed Hypothyroidism 7. Chronic Alcohol use and abuse 8. Anemia likely secondary to chronic disease but a component of malnutrition from chronic alcohol abuse 9. Enterocolitis: resolved 10. Thrombocytopenia 2/2 Sepsis: resolved 11. Severe fatty liver: transaminitis ahd hyperbilirubinemia resolved 12. s/p Bilateral pneumonia likely aspiration 13. S/p Coagulase neg Staph UTI 14. Positive stool occult blood on twice daily PPI 15. S/p Steroid-induced hyperglycemia: resolved ? 16. Hypertension: still with suboptimal control 17. LUE DVT PLAN: * Patient still requiring 5L O2 with vasc congestion on CXR / continue IV lasix 40BID / Abx / Serial CXR / Continue Tele * Swallow eval done per ST : cleared for diet * PT eval pending / encourage as much ambulation as tolerated * Patient stable for Transfer to DC * We will maintain PICC for now as it's still functioning and not infected / commence treatment dose anticoagulation and monitor closely * Continue all other current supportive care / serial lab monitoring Prophylaxis : Heparin / PPI Exam/Review of Systems Vital Signs Vitals Vital Signs Date Time Temp Pulse Resp B/P Pulse Ox O2 Delivery O2 Flow Rate FiO2 08/17/16 08:03 90 08/17/16 08:02 98.0 18 162/80 98 08/17/16 00:29 5.0 08/16/16 20:50 Nasal Cannula 08/15/16 11:18 30 Intake and Output 08/16/16 08/16/16 08/17/16 15:00 23:00 07:00 Intake Total 100 ml 480 ml 650 ml Output Total 1050 ml 400 ml 1850 ml Balance -950 ml 80 ml -1200 ml Exam Constitutional: alert, obese, oriented (To self and place), No distress Psych: other Head: atraumatic, normocephalic Eyes: PERRL, No nl conjunctiva (Mild bilateral) ENMT: No mucosa pink and moist (Dry) Respiratory: diminished breath sounds, No crackles/rales, No wheezing Cardiovascular: regular rate and rhythm, No murmurs/extra sounds Gastrointestinal: bowel sounds, non-tender, soft Extremities: other (Left upper extremity swollen at the hand and proximal one third of the forearm) Neurological: confused (Mildly), lethargic Results Result Diagram: 08/16/16 0500 08/17/16 0701 Results 24 hrs Laboratory Tests Test 08/16/16 17:11 08/16/16 20:23 08/17/16 07:01 08/17/16 08:10 Bedside Glucose 95 79 81 Sodium Level 141 Potassium Level 4.0 Chloride Level 102 Carbon Dioxide Level 29 Anion Gap 14 Blood Urea Nitrogen 37 H Creatinine 1.44 H Glucose Level 95 Calcium Level 10.5 H Phosphorus Level 4.8 Magnesium Level 2.1 Medications Medications Current Medications Lorazepam (Ativan) 0.5 mg Q6H PRN IV ANXIETY Last administered on 08/07/16 23: 23; Admin Dose 0.5 MG; Start 08/01/16 at 03:00 Ondansetron HCl (Zofran Inj) 4 mg Q6H PRN IV NAUSEA AND/OR VOMITING; Start at 03:00 Metoclopramide HCl (Reglan) 10 mg Q6H PRN IV NAUSEA AND/OR VOMITING; Start at 03:00 Acetaminophen (Tylenol Tab) 650 mg Q6H PRN PO PAIN LEVEL 1-3 OR FEVER Last administered on 08/16/16 08:33; Admin Dose 650 MG; Start 08/01/16 at 03:00 Acetaminophen (Tylenol Supp) 650 mg Q4H PRN MS PAIN LEVEL 1-3 OR FEVER; Start 08/01/16 at 06:30 Miscellaneous Information 1 ea NOTE XX ; Start 08/02/16 at 09:00 Glucose (Glutose) 15 gm Q15M PRN PO DECREASED GLUCOSE; Start 08/02/16 at 09:00 Glucose (Glutose) 22.5 gm Q15M PRN PO DECREASED GLUCOSE; Start 08/02/16 at 09:00 Dextrose (D50w Syringe) 25 ml Q15M PRN IV DECREASED GLUCOSE Last administered on 08/16/16 06:30; Admin Dose 25 ML; Start 08/02/16 at 09:00 Dextrose (D50w Syringe) 50 ml Q15M PRN IV DECREASED GLUCOSE; Start 08/02/16 at 09:00 Glucagon (Glucagen) 1 mg Q15M PRN IM DECREASED GLUCOSE; Start 08/02/16 at 09:00 Glucose (Glutose) 15 gm Q15M PRN BUCCAL DECREASED GLUCOSE; Start 08/02/16 at 09: 00 Levothyroxine Sodium (Synthroid) 125 mcg DAILY@06 NGT Last administered on 08/17 05:32; Admin Dose 125 MCG; Start 08/08/16 at 06:00 Calcium Carbonate (Ca Carbonate) 1,250 mg Q12 NGT Last administered on 08:20; Admin Dose 1,250 MG; Start 08/11/16 at 09:00 IV Flush (NS 10 ml) 10 ml PRN PRN IV FLUSH LINE; Start 08/11/16 at 20:00 Hydralazine HCl (Apresoline) 10 mg Q4H PRN IV SBP >160 Last administered on 18:43; Admin Dose 10 MG; Start 08/13/16 at 03:30 Pantoprazole (Protonix Iv) 40 mg DAILY IV Last administered on 08/17/16 08:19 ; Admin Dose 40 MG; Start 08/16/16 at 09:00 Amlodipine Besylate (Norvasc) 10 mg DAILY PO Last administered on 08/17/16 08: 20; Admin Dose 10 MG; Start 08/16/16 at 09:00 Hydromorphone HCl (Dilaudid) 1 mg Q4H PRN IV PAIN Last administered on 20:26; Admin Dose 1 MG; Start 08/16/16 at 08:30 Enoxaparin Sodium (Lovenox) 110 mg Q12 SC Last administered on 08/17/16 08:23 ; Admin Dose 110 MG; Start 08/16/16 at 13:00 Diagnostic Test (Pha) (Accu-Chek) XX ; Start 08/17/16 at 02:00 Hydralazine HCl (Apresoline) 25 mg TID PO Last administered on 08/17/16 08:21 ; Admin Dose 25 MG; Start 08/17/16 at 09:00 KOLBY ALBERT Aug 17, 2016 10:49
--- NOTE | 2016-08-17 11:19 | CONS ---
Date/Time of Note Date/Time of Note DATE: 08/17/16 TIME: 11:16 Consultation Date/Type/Reason Admit Date/Time August 01, 2016 at 00:50 Initial Consult Date 08/01/16 Type of Consultation: Palliative Care Referring Provider: NIKOLE KWON MD, [facility] 24 HR Interval Summary Free Text/Dictation Post dated note for visit 08/16..Awake alert and extubated , he has given me permission to contact his sister. Subjective hx not possible: pt critical Constitutional: improved Exam/Review of Systems Vital Signs Vitals Vital Signs Date Time Temp Pulse Resp B/P Pulse Ox O2 Delivery O2 Flow Rate FiO2 08/17/16 08:21 Nasal Cannula 5.0 08/17/16 08:03 90 08/17/16 08:02 98.0 18 162/80 98 08/15/16 11:18 30 Intake and Output 08/16/16 08/16/16 08/17/16 15:00 23:00 07:00 Intake Total 100 ml 480 ml 650 ml Output Total 1050 ml 400 ml 1850 ml Balance -950 ml 80 ml -1200 ml Results Result Diagram: 08/16/16 0500 08/17/16 0701 Results 24 hrs Laboratory Tests Test 08/16/16 17:11 08/16/16 20:23 08/17/16 07:01 08/17/16 08:10 Bedside Glucose 95 79 81 Sodium Level 141 Potassium Level 4.0 Chloride Level 102 Carbon Dioxide Level 29 Anion Gap 14 Blood Urea Nitrogen 37 H Creatinine 1.44 H Glucose Level 95 Calcium Level 10.5 H Phosphorus Level 4.8 Magnesium Level 2.1 Medications Medications Current Medications Lorazepam (Ativan) 0.5 mg Q6H PRN IV ANXIETY Last administered on 08/07/16 23: 23; Admin Dose 0.5 MG; Start 08/01/16 at 03:00 Ondansetron HCl (Zofran Inj) 4 mg Q6H PRN IV NAUSEA AND/OR VOMITING; Start at 03:00 Metoclopramide HCl (Reglan) 10 mg Q6H PRN IV NAUSEA AND/OR VOMITING; Start at 03:00 Acetaminophen (Tylenol Tab) 650 mg Q6H PRN PO PAIN LEVEL 1-3 OR FEVER Last administered on 08/16/16 08:33; Admin Dose 650 MG; Start 08/01/16 at 03:00 Acetaminophen (Tylenol Supp) 650 mg Q4H PRN OR PAIN LEVEL 1-3 OR FEVER; Start 08/01/16 at 06:30 Miscellaneous Information 1 ea NOTE XX ; Start 08/02/16 at 09:00 Glucose (Glutose) 15 gm Q15M PRN PO DECREASED GLUCOSE; Start 08/02/16 at 09:00 Glucose (Glutose) 22.5 gm Q15M PRN PO DECREASED GLUCOSE; Start 08/02/16 at 09:00 Dextrose (D50w Syringe) 25 ml Q15M PRN IV DECREASED GLUCOSE Last administered on 08/16/16 06:30; Admin Dose 25 ML; Start 08/02/16 at 09:00 Dextrose (D50w Syringe) 50 ml Q15M PRN IV DECREASED GLUCOSE; Start 08/02/16 at 09:00 Glucagon (Glucagen) 1 mg Q15M PRN IM DECREASED GLUCOSE; Start 08/02/16 at 09:00 Glucose (Glutose) 15 gm Q15M PRN BUCCAL DECREASED GLUCOSE; Start 08/02/16 at 09: 00 Levothyroxine Sodium (Synthroid) 125 mcg DAILY@06 NGT Last administered on 08/17 05:32; Admin Dose 125 MCG; Start 08/08/16 at 06:00 Calcium Carbonate (Ca Carbonate) 1,250 mg Q12 NGT Last administered on 08:20; Admin Dose 1,250 MG; Start 08/11/16 at 09:00 IV Flush (NS 10 ml) 10 ml PRN PRN IV FLUSH LINE; Start 08/11/16 at 20:00 Hydralazine HCl (Apresoline) 10 mg Q4H PRN IV SBP >160 Last administered on 18:43; Admin Dose 10 MG; Start 08/13/16 at 03:30 Pantoprazole (Protonix Iv) 40 mg DAILY IV Last administered on 08/17/16 08:19 ; Admin Dose 40 MG; Start 08/16/16 at 09:00 Amlodipine Besylate (Norvasc) 10 mg DAILY PO Last administered on 08/17/16 08: 20; Admin Dose 10 MG; Start 08/16/16 at 09:00 Hydromorphone HCl (Dilaudid) 1 mg Q4H PRN IV PAIN Last administered on 20:26; Admin Dose 1 MG; Start 08/16/16 at 08:30 Enoxaparin Sodium (Lovenox) 110 mg Q12 SC Last administered on 08/17/16 08:23 ; Admin Dose 110 MG; Start 08/16/16 at 13:00 Diagnostic Test (Pha) (Accu-Chek) 1 XX ; Start 08/17/16 at 02:00 Hydralazine HCl (Apresoline) 25 mg TID PO Last administered on 08/17/16 08:21 ; Admin Dose 25 MG; Start 08/17/16 at 09:00 ARMIN ELIZABETH Aug 17, 2016 11:19
--- NOTE | 2016-08-17 11:21 | RADRPT ---
PROCEDURE: XR Chest 1 view. CLINICAL INDICATION: Shortness of breath TECHNIQUE: AP views of the chest was obtained. COMPARISON: Yesterday FINDINGS: The heart is large. Calcified atherosclerosis is noted in the aorta. Left-sided PICC line is stable . Nasogastric tube has been removed. Central pulmonary vascular congestion and interstitial promine nce continues to be identified in both lungs. Perihilar infiltrates in both lungs have mildly decre ased. Retrocardiac opacity is stable. The osseous structures are unchanged. IMPRESSION: Cardiomegaly with calcified atherosclerosis in the aorta. Central pulmonary vascular congestion and interstitial prominence in both lungs. Mild interval decrease in perihilar infiltrates in both lungs. Significant residual remains. Stable retrocardiac opacity that may reflect left lower lobe atelectasis or infiltrate combined with small pleural effusion. RPTAT: AA .Pedro Ramirez MD, Date Time Electronically viewed and signed by .Pedro Ramirez MD, MD on 08/17/2016 11:21 .P/
--- NOTE | 2016-08-17 11:49 | CONS ---
Date/Time of Note Date/Time of Note DATE: 08/17/16 TIME: 11:47 Assessment/Plan Assessment/Plan Additional Assessment/Plan Chest x-ray was reviewed from today which is essentially unremarkable. Assessment recommendations; 1. Patient admitted for sepsis and pneumonia with respiratory failure, successfully extubated 2 days ago and transferred to medical floor with continually improving clinical status. 2. Underlying obesity. 3. Likely underlying sleep apnea. 4. Acute renal failure, patient off hemodialysis now. Continue current supportive care. Patient will need to have a sleep study done on outpatient basis. Consultation Date/Type/Reason Admit Date/Time August 01, 2016 at 00:50 Initial Consult Date 08/01/16 Type of Consultation: Pulmonary Referring Provider: NIKOLE KWON MD, [facility] 24 HR Interval Summary Free Text/Dictation Patient condition is stable. Denies any shortness of breath, chest pain, wheezing, cough or sputum production. General exam; middle-aged male, morbidly obese, awake alert currently in no distress. Exam/Review of Systems Vital Signs Vitals Vital Signs Date Time Temp Pulse Resp B/P Pulse Ox O2 Delivery O2 Flow Rate FiO2 08/17/16 08:21 Nasal Cannula 5.0 08/17/16 08:03 90 08/17/16 08:02 98.0 18 162/80 98 08/15/16 11:18 30 Intake and Output 08/16/16 08/16/16 08/17/16 15:00 23:00 07:00 Intake Total 100 ml 480 ml 650 ml Output Total 1050 ml 400 ml 1850 ml Balance -950 ml 80 ml -1200 ml Exam HEENT exam is; supple neck, JVD difficult to see because of short neck. Patient has fair dentition. Pupils are midsize and reactive to light. No thyromegaly. No lymphadenopathy. Chest examination; diminished but clear vessel. S1-S2 audible, no murmurs. Regular rhythm. Abdomen examination; soft, no distention. Bowel sounds audible. Extremity exam; no peripheral edema. Pulses 1+ bilaterally. No clubbing. CLINIC ADMINISTRATOR examination; no focal deficit. Results Result Diagram: 08/16/16 0500 08/17/16 0701 Results 24 hrs Laboratory Tests Test 08/16/16 17:11 08/16/16 20:23 08/17/16 07:01 08/17/16 08:10 Bedside Glucose 95 79 81 Sodium Level 141 Potassium Level 4.0 Chloride Level 102 Carbon Dioxide Level 29 Anion Gap 14 Blood Urea Nitrogen 37 H Creatinine 1.44 H Glucose Level 95 Calcium Level 10.5 H Phosphorus Level 4.8 Magnesium Level 2.1 Test 08/17/16 11:17 Bedside Glucose 175 Medications Medications Current Medications Lorazepam (Ativan) 0.5 mg Q6H PRN IV ANXIETY Last administered on 08/07/16 23: 23; Admin Dose 0.5 MG; Start 08/01/16 at 03:00 Ondansetron HCl (Zofran Inj) 4 mg Q6H PRN IV NAUSEA AND/OR VOMITING; Start at 03:00 Metoclopramide HCl (Reglan) 10 mg Q6H PRN IV NAUSEA AND/OR VOMITING; Start at 03:00 Acetaminophen (Tylenol Tab) 650 mg Q6H PRN PO PAIN LEVEL 1-3 OR FEVER Last administered on 08/16/16 08:33; Admin Dose 650 MG; Start 08/01/16 at 03:00 Acetaminophen (Tylenol Supp) 650 mg Q4H PRN [place] PAIN LEVEL 1-3 OR FEVER; Start 08/01/16 at 06:30 Miscellaneous Information 1 ea NOTE XX ; Start 08/02/16 at 09:00 Glucose (Glutose) 15 gm Q15M PRN PO DECREASED GLUCOSE; Start 08/02/16 at 09:00 Glucose (Glutose) 22.5 gm Q15M PRN PO DECREASED GLUCOSE; Start 08/02/16 at 09:00 Dextrose (D50w Syringe) 25 ml Q15M PRN IV DECREASED GLUCOSE Last administered on 08/16/16 06:30; Admin Dose 25 ML; Start 08/02/16 at 09:00 Dextrose (D50w Syringe) 50 ml Q15M PRN IV DECREASED GLUCOSE; Start 08/02/16 at 09:00 Glucagon (Glucagen) 1 mg Q15M PRN IM DECREASED GLUCOSE; Start 08/02/16 at 09:00 Glucose (Glutose) 15 gm Q15M PRN BUCCAL DECREASED GLUCOSE; Start 08/02/16 at 09: 00 Levothyroxine Sodium (Synthroid) 125 mcg DAILY@06 NGT Last administered on 08/17 05:32; Admin Dose 125 MCG; Start 08/08/16 at 06:00 Calcium Carbonate (Ca Carbonate) 1,250 mg Q12 NGT Last administered on 08:20; Admin Dose 1,250 MG; Start 08/11/16 at 09:00 IV Flush (NS 10 ml) 10 ml PRN PRN IV FLUSH LINE; Start 08/11/16 at 20:00 Hydralazine HCl (Apresoline) 10 mg Q4H PRN IV SBP >160 Last administered on 18:43; Admin Dose 10 MG; Start 08/13/16 at 03:30 Pantoprazole (Protonix Iv) 40 mg DAILY IV Last administered on 08/17/16 08:19 ; Admin Dose 40 MG; Start 08/16/16 at 09:00 Amlodipine Besylate (Norvasc) 10 mg DAILY PO Last administered on 08/17/16 08: 20; Admin Dose 10 MG; Start 08/16/16 at 09:00 Hydromorphone HCl (Dilaudid) 1 mg Q4H PRN IV PAIN Last administered on 20:26; Admin Dose 1 MG; Start 08/16/16 at 08:30 Enoxaparin Sodium (Lovenox) 110 mg Q12 SC Last administered on 08/17/16 08:23 ; Admin Dose 110 MG; Start 08/16/16 at 13:00 Diagnostic Test (Pha) (Accu-Chek) 1 ea 02 XX ; Start 08/17/16 at 02:00 Hydralazine HCl (Apresoline) 25 mg TID PO Last administered on 08/17/16 08:21 ; Admin Dose 25 MG; Start 08/17/16 at 09:00 MIGUEL CHINCHILLA Aug 17, 2016 11:49
--- NOTE | 2016-08-17 13:45 | CONS ---
Date/Time of Note Date/Time of Note DATE: 08/17/16 TIME: 13:43 Assessment/Plan Assessment/Plan Chief Complaint/Hosp Course 60-year-old right-handed -[place] Citizen gentleman normally cared for at the [facility] system. He was admitted to the hospital but it had cardiac arrest in the hospital. Please note that his picture actually looked a bit like adrenal insufficiency except that he has a serum cortisol level of 44 prior to his arrest. He had a TSH of 21 with a low free T4 and a low T3. Patient is intubated and unable to give a history although he is able to look and follows rudimentary commands. At this time many of his metabolic abnormalities have improved. Problems: (1) Hypothyroidism Status: Chronic Comment: The present dosage of levothyroxine is not what his outpatient dosage was. Now we have some ability to get that information I am increasing his dosage from 125 mcg a day to 175 mcg a day. He will need his thyroid function tests repeated in roughly 5 weeks. As he is stable from an endocrine standpoint at this point time I will sign off the case. Thank you very much for the opportunity work with you. Qualifiers: Hypothyroidism type: acquired Qualified Code: E03.9 - Acquired hypothyroidism Consultation Date/Type/Reason Admit Date/Time August 01, 2016 at 00:50 Initial Consult Date 08/01/16 Type of Consultation: Endocrinology Reason for Consultation Chronic primary hypothyroidism; metabolic syndrome Referring Provider: NIKOLE KWON MD, [facility] 24 HR Interval Summary Free Text/Dictation Patient steadily more conversant. He has been on thyroid at home but he has been off of it for some time it turns out. Exam/Review of Systems Vital Signs Vitals Vital Signs Date Time Temp Pulse Resp B/P Pulse Ox O2 Delivery O2 Flow Rate FiO2 08/17/16 12:10 98.0 87 18 124/75 98 08/17/16 08:21 Nasal Cannula 5.0 08/15/16 11:18 30 Intake and Output 08/16/16 08/16/16 08/17/16 14:59 22:59 06:59 Intake Total 100 ml 480 ml 650 ml Output Total 1300 ml 400 ml 1850 ml Balance -1200 ml 80 ml -1200 ml Exam No changes Results Result Diagram: 08/16/16 0500 08/17/16 0701 Results 24 hrs Laboratory Tests Test 08/16/16 17:11 6/15/17 20:23 08/17/16 07:01 08/17/16 08:10 Bedside Glucose 95 79 81 Sodium Level 141 Potassium Level 4.0 Chloride Level 102 Carbon Dioxide Level 29 Anion Gap 14 Blood Urea Nitrogen 37 H Creatinine 1.44 H Glucose Level 95 Calcium Level 10.5 H Phosphorus Level 4.8 Magnesium Level 2.1 Test 08/17/16 11:17 Bedside Glucose 175 Medications Medications Current Medications Lorazepam (Ativan) 0.5 mg Q6H PRN IV ANXIETY Last administered on 08/07/16 23: 23; Admin Dose 0.5 MG; Start 08/01/16 at 03:00 Ondansetron HCl (Zofran Inj) 4 mg Q6H PRN IV NAUSEA AND/OR VOMITING; Start at 03:00 Metoclopramide HCl (Reglan) 10 mg Q6H PRN IV NAUSEA AND/OR VOMITING; Start at 03:00 Acetaminophen (Tylenol Tab) 650 mg Q6H PRN PO PAIN LEVEL 1-3 OR FEVER Last administered on 08/16/16 08:33; Admin Dose 650 MG; Start 08/01/16 at 03:00 Acetaminophen (Tylenol Supp) 650 mg Q4H PRN [place] PAIN LEVEL 1-3 OR FEVER; Start 08/01/16 at 06:30 Miscellaneous Information 1 ea NOTE XX ; Start 08/02/16 at 09:00 Glucose (Glutose) 15 gm Q15M PRN PO DECREASED GLUCOSE; Start 08/02/16 at 09:00 Glucose (Glutose) 22.5 gm Q15M PRN PO DECREASED GLUCOSE; Start 08/02/16 at 09:00 Dextrose (D50w Syringe) 25 ml Q15M PRN IV DECREASED GLUCOSE Last administered on 08/16/16 06:30; Admin Dose 25 ML; Start 08/02/16 at 09:00 Dextrose (D50w Syringe) 50 ml Q15M PRN IV DECREASED GLUCOSE; Start 08/02/16 at 09:00 Glucagon (Glucagen) 1 mg Q15M PRN IM DECREASED GLUCOSE; Start 08/02/16 at 09:00 Glucose (Glutose) 15 gm Q15M PRN BUCCAL DECREASED GLUCOSE; Start 08/02/16 at 09: 00 Levothyroxine Sodium (Synthroid) 125 mcg DAILY@06 NGT Last administered on 08/17 05:32; Admin Dose 125 MCG; Start 08/08/16 at 06:00 Calcium Carbonate (Ca Carbonate) 1,250 mg Q12 NGT Last administered on 08:20; Admin Dose 1,250 MG; Start 08/11/16 at 09:00 IV Flush (NS 10 ml) 10 ml PRN PRN IV FLUSH LINE; Start 08/11/16 at 20:00 Hydralazine HCl (Apresoline) 10 mg Q4H PRN IV SBP >160 Last administered on 18:43; Admin Dose 10 MG; Start 08/13/16 at 03:30 Pantoprazole (Protonix Iv) 40 mg DAILY IV Last administered on 08/17/16 08:19 ; Admin Dose 40 MG; Start 08/16/16 at 09:00 Amlodipine Besylate (Norvasc) 10 mg DAILY PO Last administered on 08/17/16 08: 20; Admin Dose 10 MG; Start 08/16/16 at 09:00 Hydromorphone HCl (Dilaudid) 1 mg Q4H PRN IV PAIN Last administered on 20:26; Admin Dose 1 MG; Start 08/16/16 at 08:30 Enoxaparin Sodium (Lovenox) 110 mg Q12 SC Last administered on 08/17/16 08:23 ; Admin Dose 110 MG; Start 08/16/16 at 13:00 Diagnostic Test (Pha) (Accu-Chek) 1 ea 02 XX ; Start 08/17/16 at 02:00 Hydralazine HCl (Apresoline) 25 mg TID PO Last administered on 08/17/16 13:28 ; Admin Dose 25 MG; Start 08/17/16 at 09:00 ERIN MARTÍNEZ MD Aug 17, 2016 13:45
[2016-08-17] MEDS: hydrALAzine 20 MG INJ IV PRN (17:21)
[2016-08-17] MEDS: ENOXAPARIN 60 MG/0.6 ML SYG SC SCH (20:47)
--- NOTE | 2016-08-17 21:41 | CONS ---
Date/Time of Note Date/Time of Note DATE: 08/17/16 TIME: 21:39 Assessment/Plan Assessment/Plan Chief Complaint/Hosp Course SUBJECTIVE: Tx to tele, awake, looks comfortable, no fevers. INDWELLINGS: PICC, right femoral Deni catheter, Silver. MICROBIOLOGY: Blood cultures have been negative. Urine culture negative. Stool for C. diff negative. PHYSICAL EXAMINATION: GENERAL: Chronically ill-appearing, middle-aged man who is intubated and sedated, in no distress. HEENT: Head atraumatic, normocephalic. Sclerae anicteric. Buccal mucosa dry. NECK: Supple, trachea midline. CHEST: Rise symmetrical. Breath sounds diminished to bases. HEART: S1, S2. ABDOMEN: Distended, soft. Bowel tones hypoactive. EXTREMITIES: Bilateral edema. ASSESSMENT: 1. S/p sepsis with shock 2. S/p acute respiratory failure. 3. Acute kidney injury 4. Status post cardiopulmonary arrest. 5. Encephalopathy===> resolving. 6. History of ETOH abuse. 7. Diarrhea===> neg C dif 8. Leukocytosis===> resolving, off steroids PLAN: The patient remains stable, completed abx, continue present care and reculture prn. DW staff Problems: Consultation Date/Type/Reason Admit Date/Time August 01, 2016 at 00:50 Initial Consult Date 08/01/16 Type of Consultation: id Referring Provider: NIKOLE KWON MD, [facility] Exam/Review of Systems Vital Signs Vitals Vital Signs Date Time Temp Pulse Resp B/P Pulse Ox O2 Delivery O2 Flow Rate FiO2 08/17/16 20:55 101 08/17/16 19:59 98.4 18 144/72 96 08/17/16 19:55 5.0 08/17/16 19:55 Nasal Cannula 08/15/16 11:18 30 Intake and Output 08/16/16 08/16/16 08/17/16 15:00 23:00 07:00 Intake Total 100 ml 480 ml 650 ml Output Total 1050 ml 400 ml 1850 ml Balance -950 ml 80 ml -1200 ml Results Result Diagram: 08/16/16 0500 08/17/16 0701 Results 24 hrs Laboratory Tests Test 08/17/16 07:01 08/17/16 08:10 08/17/16 11:17 08/17/16 17:28 Sodium Level 141 Potassium Level 4.0 Chloride Level 102 Carbon Dioxide Level 29 Anion Gap 14 Blood Urea Nitrogen 37 H Creatinine 1.44 H Glucose Level 95 Calcium Level 10.5 H Phosphorus Level 4.8 Magnesium Level 2.1 Bedside Glucose 81 175 85 Test 08/17/16 20:36 Bedside Glucose 95 Medications Medications Current Medications Lorazepam (Ativan) 0.5 mg Q6H PRN IV ANXIETY Last administered on 08/07/16 23: 23; Admin Dose 0.5 MG; Start 08/01/16 at 03:00 Ondansetron HCl (Zofran Inj) 4 mg Q6H PRN IV NAUSEA AND/OR VOMITING; Start at 03:00 Metoclopramide HCl (Reglan) 10 mg Q6H PRN IV NAUSEA AND/OR VOMITING; Start at 03:00 Acetaminophen (Tylenol Tab) 650 mg Q6H PRN PO PAIN LEVEL 1-3 OR FEVER Last administered on 08/16/16 08:33; Admin Dose 650 MG; Start 08/01/16 at 03:00 Acetaminophen (Tylenol Supp) 650 mg Q4H PRN [place] PAIN LEVEL 1-3 OR FEVER; Start 08/01/16 at 06:30 Miscellaneous Information 1 ea NOTE XX ; Start 08/02/16 at 09:00 Glucose (Glutose) 15 gm Q15M PRN PO DECREASED GLUCOSE; Start 08/02/16 at 09:00 Glucose (Glutose) 22.5 gm Q15M PRN PO DECREASED GLUCOSE; Start 08/02/16 at 09:00 Dextrose (D50w Syringe) 25 ml Q15M PRN IV DECREASED GLUCOSE Last administered on 08/16/16 06:30; Admin Dose 25 ML; Start 08/02/16 at 09:00 Dextrose (D50w Syringe) 50 ml Q15M PRN IV DECREASED GLUCOSE; Start 08/02/16 at 09:00 Glucagon (Glucagen) 1 mg Q15M PRN IM DECREASED GLUCOSE; Start 08/02/16 at 09:00 Glucose (Glutose) 15 gm Q15M PRN BUCCAL DECREASED GLUCOSE; Start 08/02/16 at 09: 00 Calcium Carbonate (Ca Carbonate) 1,250 mg Q12 NGT Last administered on 20:34; Admin Dose 1,250 MG; Start 08/11/16 at 09:00 IV Flush (NS 10 ml) 10 ml PRN PRN IV FLUSH LINE; Start 08/11/16 at 20:00 Hydralazine HCl (Apresoline) 10 mg Q4H PRN IV SBP >160 Last administered on 17:21; Admin Dose 10 MG; Start 08/13/16 at 03:30 Amlodipine Besylate (Norvasc) 10 mg DAILY PO Last administered on 08/17/16 08: 20; Admin Dose 10 MG; Start 08/16/16 at 09:00 Hydromorphone HCl (Dilaudid) 1 mg Q4H PRN IV PAIN Last administered on 20:26; Admin Dose 1 MG; Start 08/16/16 at 08:30 Diagnostic Test (Pha) (Accu-Chek) 1 ea 02 XX ; Start 08/17/16 at 02:00 Hydralazine HCl (Apresoline) 25 mg TID PO Last administered on 08/17/16 20:34 ; Admin Dose 25 MG; Start 08/17/16 at 09:00 Levothyroxine Sodium (Synthroid) 175 mcg DAILY@06 PO ; Start 08/18/16 at 06:00 Pantoprazole (Protonix Tab) 40 mg DAILY@06 PO ; Start 08/18/16 at 06:00 Enoxaparin Sodium (Lovenox) 110 mg Q12 SC Last administered on 08/17/16 20:47 ; Admin Dose 110 MG; Start 08/17/16 at 21:00 RADHA ESCALANTE NP Aug 17, 2016 21:41
[2016-08-18] VITALS (12 sets, daily range): BP systolic 136–162; BP diastolic 73–90; PULSE 91–102; RESP 18–20
[2016-08-18] MEDS: ACCU-CHEK XX SCH (01:31)
[2016-08-18] MEDS: PANTOPRAZOLE (EC) 40 MG TAB PO SCH (05:06)
[2016-08-18] MEDS: FUROSEMIDE 40 MG INJ IV SCH ×2 (05:06→17:35)
[2016-08-18] MEDS: LEVOTHYROXINE 175 MCG TAB PO SCH (05:06)
[2016-08-18] MEDS: ALBUTEROL/IPRATROPIUM (NEB) 3 ML AMP HHN SCH ×3 (07:23→19:21)
[2016-08-18] MEDS: INSULIN ASPART [NOVOLOG] 3 ML PEN SC SCH ×4 (08:00→20:22)
[2016-08-18 08:03] LABS: ADD SCAN DIFF NO
[2016-08-18 08:12] LABS: ABNORMAL IP MESSAGE 1; BASOPHILS % 0.2 % (0.0-2.0); EOSINOPHILS # 0.1 10^3/ul (0.0-0.5); EOSINOPHILS % 0.5 % (0.0-7.0); HEMATOCRIT 31.2 % (42.0-52.0); HEMOGLOBIN 10.2 g/dl (14.0-18.0); LYMPHOCYTES # 1.9 10^3/ul (0.8-2.9); LYMPHOCYTES % 14.8 % (15.0-51.0); MEAN CORPUSCULAR HEMOGLOBIN 32.3 pg (29.0-33.0); MEAN CORPUSCULAR HGB CONC 32.7 g/dl (32.0-37.0); MEAN CORPUSCULAR VOLUME 98.7 fl (82.0-101.0); MONOCYTE # 1.8 10^3/ul (0.3-0.9); MONOCYTES % 14.3 % (0.0-11.0); NEUTROPHIL # 8.8 10^3/ul (1.6-7.5); NEUTROPHILS % 69.5 % (39.0-77.0); PLATELET COUNT 194 10^3/UL (140-415); RED BLOOD COUNT 3.16 10^6/ul (4.70-6.10); WHITE BLOOD COUNT 12.6 10^3/ul (4.8-10.8)
--- NOTE | 2016-08-18 08:42 | CONS ---
Date/Time of Note Date/Time of Note DATE: 08/18/16 TIME: 08:31 Consult Date/Type/Reason Admit Date/Time August 01, 2016 at 00:50 Initial Consult Date 08/01/16 Type of Consultation: med Ordering Provider: NIKOLE KWON [facility], [facility] Subjective The patient was transferred from intensive care unit to telemetry. The patient currently is on 4 liters nasal cannula, but stable. No other events noted. OBJECTIVE: HEENT: Head is normocephalic. NECK: Supple. HEART: Regular rate. LUNGS: Show diminished breath sounds at the bases. ABDOMEN: Soft, nontender to palpation. No rebound or guarding. EXTREMITIES: Negative for clubbing, cyanosis. No edema. DERMATOLOGIC: No rashes. MUSCULOSKELETAL: No joint effusions. NEUROLOGIC: No change in exam. Objective Vital Signs Date Time Temp Pulse Resp B/P Pulse Ox O2 Delivery O2 Flow Rate FiO2 08/18/16 08:08 91 08/18/16 07:26 20 97 Nasal Cannula 5.0 08/18/16 07:25 98.8 162/80 08/15/16 11:18 30 Intake and Output 08/17/16 08/17/16 08/18/16 15:00 23:00 07:00 Intake Total 700 ml 600 ml Output Total 1200 ml 1300 ml Balance -500 ml -700 ml Results/Medications Result Diagram: 08/18/16 0705 08/17/16 0701 Results 24 hrs Laboratory Tests Test 08/17/16 11:17 08/17/16 17:28 08/17/16 20:36 08/18/16 07:05 Bedside Glucose 175 85 95 White Blood Count 12.6 H Red Blood Count 3.16 L Hemoglobin 10.2 L Hematocrit 31.2 L Mean Corpuscular Volume 98.7 Mean Corpuscular Hemoglobin 32.3 Mean Corpuscular Hemoglobin Concent 32.7 Red Cell Distribution Width 17.0 H Platelet Count 194 Mean Platelet Volume 12.0 H Neutrophils % 69.5 Lymphocytes % 14.8 L Monocytes % 14.3 H Eosinophils % 0.5 Basophils % 0.2 Nucleated Red Blood Cells % 0.0 Neutrophils # 8.8 H Lymphocytes # 1.9 Monocytes # 1.8 H Eosinophils # 0.1 Basophils # 0.0 Nucleated Red Blood Cells # 0.0 Test 08/18/16 08:21 Bedside Glucose 78 Medications Current Medications Lorazepam (Ativan) 0.5 mg Q6H PRN IV ANXIETY Last administered on 08/07/16 23: 23; Admin Dose 0.5 MG; Start 08/01/16 at 03:00 Ondansetron HCl (Zofran Inj) 4 mg Q6H PRN IV NAUSEA AND/OR VOMITING; Start at 03:00 Metoclopramide HCl (Reglan) 10 mg Q6H PRN IV NAUSEA AND/OR VOMITING; Start at 03:00 Acetaminophen (Tylenol Tab) 650 mg Q6H PRN PO PAIN LEVEL 1-3 OR FEVER Last administered on 08/16/16 08:33; Admin Dose 650 MG; Start 08/01/16 at 03:00 Acetaminophen (Tylenol Supp) 650 mg Q4H PRN [place] PAIN LEVEL 1-3 OR FEVER; Start 08/01/16 at 06:30 Miscellaneous Information 1 ea NOTE XX ; Start 08/02/16 at 09:00 Glucose (Glutose) 15 gm Q15M PRN PO DECREASED GLUCOSE; Start 08/02/16 at 09:00 Glucose (Glutose) 22.5 gm Q15M PRN PO DECREASED GLUCOSE; Start 08/02/16 at 09:00 Dextrose (D50w Syringe) 25 ml Q15M PRN IV DECREASED GLUCOSE Last administered on 08/16/16 06:30; Admin Dose 25 ML; Start 08/02/16 at 09:00 Dextrose (D50w Syringe) 50 ml Q15M PRN IV DECREASED GLUCOSE; Start 08/02/16 at 09:00 Glucagon (Glucagen) 1 mg Q15M PRN IM DECREASED GLUCOSE; Start 08/02/16 at 09:00 Glucose (Glutose) 15 gm Q15M PRN BUCCAL DECREASED GLUCOSE; Start 08/02/16 at 09: 00 Calcium Carbonate (Ca Carbonate) 1,250 mg Q12 NGT Last administered on 20:34; Admin Dose 1,250 MG; Start 08/11/16 at 09:00 IV Flush (NS 10 ml) 10 ml PRN PRN IV FLUSH LINE; Start 08/11/16 at 20:00 Hydralazine HCl (Apresoline) 10 mg Q4H PRN IV SBP >160 Last administered on 17:21; Admin Dose 10 MG; Start 08/13/16 at 03:30 Amlodipine Besylate (Norvasc) 10 mg DAILY PO Last administered on 08/17/16 08: 20; Admin Dose 10 MG; Start 08/16/16 at 09:00 Hydromorphone HCl (Dilaudid) 1 mg Q4H PRN IV PAIN Last administered on 20:26; Admin Dose 1 MG; Start 08/16/16 at 08:30 Diagnostic Test (Pha) (Accu-Chek) 1 ea 02 XX ; Start 08/17/16 at 02:00 Hydralazine HCl (Apresoline) 25 mg TID PO Last administered on 08/17/16 20:34 ; Admin Dose 25 MG; Start 08/17/16 at 09:00 Levothyroxine Sodium (Synthroid) 175 mcg DAILY@06 PO Last administered on 05:06; Admin Dose 175 MCG; Start 08/18/16 at 06:00 Pantoprazole (Protonix Tab) 40 mg DAILY@06 PO Last administered on 08/18/16 05 :06; Admin Dose 40 MG; Start 08/18/16 at 06:00 Enoxaparin Sodium (Lovenox) 110 mg Q12 SC Last administered on 08/17/16 20:47 ; Admin Dose 110 MG; Start 08/17/16 at 21:00 Assessment/Plan Chief Complaint/Hosp Course 1. Nonoliguric acute kidney injury with unknown baseline creatinine. Etiology is secondary to acute tubular necrosis due to septic shock, ischemic hypoperfusion. The patient is status post hemodialysis. The patient has shown excellent recovery. Continue current treatment plan, supportive care, renally dose all meds. monitor labs. avoid nephrotoxins. 2. Volume overload secondary to acute kidney disease, congestive heart failure. The patient's last chest x-ray shows worsening congestion. Continue Lasix at 40 mg IV b.i.d. Repeat x-ray shows improvement. Continue to monitor. 3. Mineral bone disease. Continue to monitor calcium and phosphorus levels. 4. Anemia. Continue to monitor hemoglobin and hematocrit levels. 5. Respiratory failure, status post extubation. Currently stable on 4 liters nasal cannula, continue. Follow up with pulmonary. 6. Sepsis, status post shock. Continue current antibiotic regimen. 7. Dysphagia, tolerating modified diet, continue. 8. Hypothyroidism. Continue Synthroid. 9. Diabetes. Continue Accu-Cheks and insulin sliding scale. 10. History of ETOH abuse. 11. History of cardiopulmonary arrest. Problems: OSIEL OMALLEY MD Aug 18, 2016 08:41
[2016-08-18] MEDS: AMLODIPINE 10 MG TAB PO SCH (09:13)
[2016-08-18] MEDS: CA CARBONATE (250 MG/ML) 5ML CUP NGT SCH ×2 (09:13→20:23)
[2016-08-18] MEDS: ENOXAPARIN 60 MG/0.6 ML SYG SC SCH ×2 (09:15→20:30)
--- NOTE | 2016-08-18 09:34 | CONS ---
Date/Time of Note Date/Time of Note DATE: 08/18/16 TIME: 09:32 Assessment/Plan Assessment/Plan Additional Assessment/Plan Assessment and recommendations; 1. Patient admitted for respiratory failure due to severe sepsis no extubated several days ago with continually improving clinical status. Etiology of sepsis unclear. 2. Acute renal failure, patient required 2 hemodialysis sessions. 3. Obesity. 4. Likely underlying sleep apnea. 5. Mild CHF. Continue current treatment. Consultation Date/Type/Reason Admit Date/Time August 01, 2016 at 00:50 Initial Consult Date 08/01/16 Type of Consultation: Pulmonary Referring Provider: NIKOLE KWON MD, [facility] 24 HR Interval Summary Free Text/Dictation Patient condition is stable. Remains awake alert. Denies any shortness of breath, chest pain, wheezing cough or sputum production. General examination; middle-aged male, morbidly obese, awake alert. Currently in no distress. Exam/Review of Systems Vital Signs Vitals Vital Signs Date Time Temp Pulse Resp B/P Pulse Ox O2 Delivery O2 Flow Rate FiO2 08/18/16 08:08 91 08/18/16 07:26 20 97 Nasal Cannula 5.0 08/18/16 07:25 98.8 162/80 08/15/16 11:18 30 Intake and Output 08/17/16 08/17/16 08/18/16 15:00 23:00 07:00 Intake Total 700 ml 600 ml Output Total 1200 ml 1300 ml Balance -500 ml -700 ml Exam HEENT examination; supple neck, JVD difficult to see because of thick neck. Pharynx is clear. Patient has fair dentition. Pupils are midsize and reactive to light. Chest examination; diminished but clear vessel. S1-S2 audible, no murmurs. Regular rhythm. Abdomen examination; soft, no organomegaly. Nontender. Protuberant. Bowel sounds audible. Extremity examination; no peripheral edema. 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 Results Result Diagram: 08/18/16 0705 08/17/16 07 Results 24 hrs Laboratory Tests Test 08/17/16 11:17 08/17/16 17:28 08/17/16 20:36 08/18/16 07:05 Bedside Glucose 175 85 95 White Blood Count 12.6 H Red Blood Count 3.16 L Hemoglobin 10.2 L Hematocrit 31.2 L Mean Corpuscular Volume 98.7 Mean Corpuscular Hemoglobin 32.3 Mean Corpuscular Hemoglobin Concent 32.7 Red Cell Distribution Width 17.0 H Platelet Count 194 Mean Platelet Volume 12.0 H Neutrophils % 69.5 Lymphocytes % 14.8 L Monocytes % 14.3 H Eosinophils % 0.5 Basophils % 0.2 Nucleated Red Blood Cells % 0.0 Neutrophils # 8.8 H Lymphocytes # 1.9 Monocytes # 1.8 H Eosinophils # 0.1 Basophils # 0.0 Nucleated Red Blood Cells # 0.0 Test 08/18/16 08:21 Bedside Glucose 78 Medications Medications Current Medications Lorazepam (Ativan) 0.5 mg Q6H PRN IV ANXIETY Last administered on 08/07/16 23: 23; Admin Dose 0.5 MG; Start 08/01/16 at 03:00 Ondansetron HCl (Zofran Inj) 4 mg Q6H PRN IV NAUSEA AND/OR VOMITING; Start at 03:00 Metoclopramide HCl (Reglan) 10 mg Q6H PRN IV NAUSEA AND/OR VOMITING; Start at 03:00 Acetaminophen (Tylenol Tab) 650 mg Q6H PRN PO PAIN LEVEL 1-3 OR FEVER Last administered on 08/16/16 08:33; Admin Dose 650 MG; Start 08/01/16 at 03:00 Acetaminophen (Tylenol Supp) 650 mg Q4H PRN DC PAIN LEVEL 1-3 OR FEVER; Start 08/01/16 at 06:30 Miscellaneous Information 1 ea NOTE XX ; Start 08/02/16 at 09:00 Glucose (Glutose) 15 gm Q15M PRN PO DECREASED GLUCOSE; Start 08/02/16 at 09:00 Glucose (Glutose) 22.5 gm Q15M PRN PO DECREASED GLUCOSE; Start 08/02/16 at 09:00 Dextrose (D50w Syringe) 25 ml Q15M PRN IV DECREASED GLUCOSE Last administered on 08/16/16 06:30; Admin Dose 25 ML; Start 08/02/16 at 09:00 Dextrose (D50w Syringe) 50 ml Q15M PRN IV DECREASED GLUCOSE; Start 08/02/16 at 09:00 Glucagon (Glucagen) 1 mg Q15M PRN IM DECREASED GLUCOSE; Start 08/02/16 at 09:00 Glucose (Glutose) 15 gm Q15M PRN BUCCAL DECREASED GLUCOSE; Start 08/02/16 at 09: 00 Calcium Carbonate (Ca Carbonate) 1,250 mg Q12 NGT Last administered on 09:13; Admin Dose 1,250 MG; Start 08/11/16 at 09:00 IV Flush (NS 10 ml) 10 ml PRN PRN IV FLUSH LINE; Start 08/11/16 at 20:00 Hydralazine HCl (Apresoline) 10 mg Q4H PRN IV SBP >160 Last administered on 17:21; Admin Dose 10 MG; Start 08/13/16 at 03:30 Amlodipine Besylate (Norvasc) 10 mg DAILY PO Last administered on 08/18/16 09: 13; Admin Dose 10 MG; Start 08/16/16 at 09:00 Hydromorphone HCl (Dilaudid) 1 mg Q4H PRN IV PAIN Last administered on 20:26; Admin Dose 1 MG; Start 08/16/16 at 08:30 Diagnostic Test (Pha) (Accu-Chek) 1 ea 02 XX ; Start 08/17/16 at 02:00 Hydralazine HCl (Apresoline) 25 mg TID PO Last administered on 08/18/16 09:13 ; Admin Dose 25 MG; Start 08/17/16 at 09:00 Levothyroxine Sodium (Synthroid) 175 mcg DAILY@06 PO Last administered on 05:06; Admin Dose 175 MCG; Start 08/18/16 at 06:00 Pantoprazole (Protonix Tab) 40 mg DAILY@06 PO Last administered on 08/18/16 05 :06; Admin Dose 40 MG; Start 08/18/16 at 06:00 Enoxaparin Sodium (Lovenox) 110 mg Q12 SC Last administered on 08/18/16 09:15 ; Admin Dose 110 MG; Start 08/17/16 at 21:00 MIGUEL CHINCHILLA 17, 2017 09:34
[2016-08-18 09:47] LABS: ALBUMIN 3.5 g/dl (3.3-4.9); ALBUMIN/GLOBULIN RATIO 0.74; BILIRUBIN,INDIRECT 0.3 mg/dl (0-1.1); BILIRUBIN,TOTAL 0.3 mg/dl (0.2-1.3); CALCIUM 10.1 mg/dl (8.4-10.2); CREATININE 1.48 mg/dl (0.61-1.24); MAGNESIUM 1.9 mg/dl (1.7-2.5); POTASSIUM 3.7 mmol/L (3.5-5.1); TOTAL PROTEIN 8.2 g/dl (6.1-8.1)
--- NOTE | 2016-08-18 10:30 | RADRPT ---
PROCEDURE: XR, Chest. CLINICAL INDICATION: Follow up for respiratory distress. TECHNIQUE: AP chest. COMPARISON: Chest, 08/17/2016. FINDINGS: There is partial atelectasis of the left lower lobe. There is mild left pleural effusion. The hear t is somewhat enlarged with mild pulmonary venous congestion. IMPRESSION: 1. Partial atelectasis of the left lower lobe, unchanged. Mild left pleural effusion, unchanged. 2. Cardiomegaly with mild mild pulmonary venous congestion, unchanged. RPTAT: GG .Jimmy David MD, MD Date Time Electronically viewed and signed by .Jimmy David MD, MD on 08/18/2016 10:29 .Y/
--- NOTE | 2016-08-18 13:12 | PN ---
Date/Time of Note Date/Time of Note DATE: 08/18/16 TIME: 13:08 Assessment/Plan VTE Prophylaxis VTE Prophylaxis Intervention: LMWH Lines/Catheters IV [facility]ter Type (from [facility]): PICC Line Central line still needed: No Urinary Cath still in place: Yes Reason Cath still needed: other (indicate) (Initiating bladder retraining.) Assessment/Plan Chief Complaint/Hosp Course 60-year-old right-handed -[place] gentleman normally cared for at the [facility] system. He was admitted to the hospital but it had cardiac arrest in the hospital. Problems: (1) Hyperglycemia Status: Acute Comment: Resolved with discontinuation of the steroids. He has insulin resistance syndrome as such I will need to be respected. (2) Hypothyroidism Status: Chronic Comment: Continues on replacement therapy. He is at a dose more consistent what he was taking as an outpatient when he had access to his medications. Qualifiers: Hypothyroidism type: acquired Qualified Code: E03.9 - Acquired hypothyroidism (3) Acute kidney injury Status: Acute Comment: This is steadily improving. After careful not to make him intravascularly depleted which will also reflect on that. For now however he is improving. Please note with indwelling Silver we do not have a concern for an obstructive uropathy from an overgrown prostate. However we will need to begin bladder retraining and watch for evidence of BPH. (4) Onychomycosis Status: Chronic Comment: He has had pulse therapy. (5) Alcohol abuse Status: Chronic Comment: He is past the point where he would worry about DTs or withdrawal. (6) Sepsis syndrome Status: Resolved Comment: This is fully resolved. (7) Respiratory failure requiring intubation Status: Resolved Comment: Resolved. He still has need for supplemental oxygenation. However as this improves we can look at transferring him off of telemetry to regular floor bed. At that point he would be stable transfer to the MD system Subjective 24 Hr Interval Summary Free Text/Dictation Patient is steadily more awake and alert. He reports he does not recall the sequence of events that led to the hospitalization. Constitutional: no complaints Respiratory: no complaints Cardiovascular: no complaints Gastrointestinal: no complaints Genitourinary: other (Has indwelling catheter) Exam/Review of Systems Vital Signs Vitals Vital Signs Date Time Temp Pulse Resp B/P Pulse Ox O2 Delivery O2 Flow Rate FiO2 08/18/16 12:08 95 08/18/16 11:26 99.1 20 136/79 98 08/18/16 08:20 Nasal Cannula 5.0 08/15/16 11:18 30 Intake and Output 08/17/16 08/17/16 08/18/16 15:00 23:00 07:00 Intake Total 700 ml 600 ml Output Total 1200 ml 1300 ml Balance -500 ml -700 ml Exam Constitutional: alert, oriented Neck: non-tender, supple Respiratory: clear to auscultation, normal air movement Cardiovascular: nl pulses, regular rate and rhythm Gastrointestinal: nl liver, spleen, non-tender, soft Results Result Diagram: 08/18/16 0705 08/18/16 0706 Results 24 hrs Laboratory Tests Test 08/17/16 17:28 08/17/16 20:36 08/18/16 07:05 08/18/16 07:06 Bedside Glucose 85 95 White Blood Count 12.6 H Red Blood Count 3.16 L Hemoglobin 10.2 L Hematocrit 31.2 L Mean Corpuscular Volume 98.7 Mean Corpuscular Hemoglobin 32.3 Mean Corpuscular Hemoglobin Concent 32.7 Red Cell Distribution Width 17.0 H Platelet Count 194 Mean Platelet Volume 12.0 H Neutrophils % 69.5 Lymphocytes % 14.8 L Monocytes % 14.3 H Eosinophils % 0.5 Basophils % 0.2 Nucleated Red Blood Cells % 0.0 Neutrophils # 8.8 H Lymphocytes # 1.9 Monocytes # 1.8 H Eosinophils # 0.1 Basophils # 0.0 Nucleated Red Blood Cells # 0.0 Sodium Level 137 Potassium Level 3.7 Chloride Level 101 Carbon Dioxide Level 28 Anion Gap 12 Blood Urea Nitrogen 34 H Creatinine 1.48 H Glucose Level 86 Calcium Level 10.1 Magnesium Level 1.9 Total Bilirubin 0.3 Direct Bilirubin 0.00 Indirect Bilirubin 0.3 Aspartate Amino Transf (AST/SGOT) 37 Alanine Aminotransferase (ALT/SGPT) 22 Alkaline Phosphatase 197 H Total Protein 8.2 H Albumin 3.5 Globulin 4.70 H Albumin/Globulin Ratio 0.74 Test 08/18/16 08:21 08/18/16 12:15 Bedside Glucose 78 96 Medications Medications Current Medications Lorazepam (Ativan) 0.5 mg Q6H PRN IV ANXIETY Last administered on 08/07/16t 23: 23; Admin Dose 0.5 MG; Start 08/01/16 at 03:00 Ondansetron HCl (Zofran Inj) 4 mg Q6H PRN IV NAUSEA AND/OR VOMITING; Start at 03:00 Metoclopramide HCl (Reglan) 10 mg Q6H PRN IV NAUSEA AND/OR VOMITING; Start at 03:00 Acetaminophen (Tylenol Tab) 650 mg Q6H PRN PO PAIN LEVEL 1-3 OR FEVER Last administered on 08/16/16 08:33; Admin Dose 650 MG; Start 08/01/16 at 03:00 Acetaminophen (Tylenol Supp) 650 mg Q4H PRN DC PAIN LEVEL 1-3 OR FEVER; Start 08/01/16 at 06:30 Miscellaneous Information 1 ea NOTE XX ; Start 08/02/16 at 09:00 Glucose (Glutose) 15 gm Q15M PRN PO DECREASED GLUCOSE; Start 08/02/16 at 09:00 Glucose (Glutose) 22.5 gm Q15M PRN PO DECREASED GLUCOSE; Start 08/02/16 at 09:00 Dextrose (D50w Syringe) 25 ml Q15M PRN IV DECREASED GLUCOSE Last administered on 08/16/16 06:30; Admin Dose 25 ML; Start 08/02/16 at 09:00 Dextrose (D50w Syringe) 50 ml Q15M PRN IV DECREASED GLUCOSE; Start 08/02/16 at 09:00 Glucagon (Glucagen) 1 mg Q15M PRN IM DECREASED GLUCOSE; Start 08/02/16 at 09:00 Glucose (Glutose) 15 gm Q15M PRN BUCCAL DECREASED GLUCOSE; Start 08/02/16 at 09: 00 Calcium Carbonate (Ca Carbonate) 1,250 mg Q12 NGT Last administered on 09:13; Admin Dose 1,250 MG; Start 08/11/16 at 09:00 IV Flush (NS 10 ml) 10 ml PRN PRN IV FLUSH LINE; Start 08/11/16 at 20:00 Hydralazine HCl (Apresoline) 10 mg Q4H PRN IV SBP >160 Last administered on 17:21; Admin Dose 10 MG; Start 08/13/16 at 03:30 Amlodipine Besylate (Norvasc) 10 mg DAILY PO Last administered on 08/18/16 09: 13; Admin Dose 10 MG; Start 08/16/16 at 09:00 Hydromorphone HCl (Dilaudid) 1 mg Q4H PRN IV PAIN Last administered on 20:26; Admin Dose 1 MG; Start 08/16/16 at 08:30 Diagnostic Test (Pha) (Accu-Chek) 1 ea 02 XX ; Start 08/17/16 at 02:00 Levothyroxine Sodium (Synthroid) 175 mcg DAILY@06 PO Last administered on 05:06; Admin Dose 175 MCG; Start 08/18/16 at 06:00 Pantoprazole (Protonix Tab) 40 mg DAILY@06 PO Last administered on 08/18/16 05 :06; Admin Dose 40 MG; Start 08/18/16 at 06:00 Enoxaparin Sodium (Lovenox) 110 mg Q12 SC Last administered on 08/18/16 09:15 ; Admin Dose 110 MG; Start 08/17/16 at 21:00 Doxazosin Mesylate (Cardura) 2 mg HS PO ; Start 08/18/16 at 21:00; Status ERIN TILLEY MD Aug 18, 2016 13:11
[2016-08-18] MEDS ORDERED: LORAZEPAM 0.5 MG TAB PO PRN (14:30)
[2016-08-18] MEDS ORDERED: DOXAZOSIN 2 MG TAB PO SCH (21:00)
[2016-08-19] VITALS (11 sets, daily range): BP systolic 126–163; BP diastolic 63–87; PULSE 72–92; RESP 19–22
[2016-08-19] MEDS: ACCU-CHEK XX SCH (01:21)
[2016-08-19] MEDS: PANTOPRAZOLE (EC) 40 MG TAB PO SCH (05:31)
[2016-08-19] MEDS: LEVOTHYROXINE 175 MCG TAB PO SCH (05:31)
[2016-08-19] MEDS: FUROSEMIDE 40 MG INJ IV SCH (05:32)
[2016-08-19 06:42] LABS: ADD SCAN DIFF NO
[2016-08-19 07:02] LABS: ABNORMAL IP MESSAGE 1; BASOPHILS % 0.2 % (0.0-2.0); EOSINOPHILS # 0.1 10^3/ul (0.0-0.5); EOSINOPHILS % 0.8 % (0.0-7.0); HEMATOCRIT 27.7 % (42.0-52.0); HEMOGLOBIN 9.3 g/dl (14.0-18.0); LYMPHOCYTES % 18.8 % (15.0-51.0); MEAN CORPUSCULAR HGB CONC 33.6 g/dl (32.0-37.0); MEAN CORPUSCULAR VOLUME 98.2 fl (82.0-101.0); MONOCYTE # 1.6 10^3/ul (0.3-0.9); MONOCYTES % 14.7 % (0.0-11.0); NEUTROPHIL # 7.1 10^3/ul (1.6-7.5); NEUTROPHILS % 64.8 % (39.0-77.0); PLATELET COUNT 205 10^3/UL (140-415); RED BLOOD COUNT 2.82 10^6/ul (4.70-6.10); RED CELL DISTRIBUTION WIDTH 16.6 % (11.5-14.5); WHITE BLOOD COUNT 10.9 10^3/ul (4.8-10.8)
[2016-08-19 07:14] LABS: ALBUMIN 3.4 g/dl (3.3-4.9); ALBUMIN/GLOBULIN RATIO 0.77; BILIRUBIN,INDIRECT 0.3 mg/dl (0-1.1); BILIRUBIN,TOTAL 0.3 mg/dl (0.2-1.3); CALCIUM 9.5 mg/dl (8.4-10.2); CREATININE 1.47 mg/dl (0.61-1.24); POTASSIUM 3.6 mmol/L (3.5-5.1); TOTAL PROTEIN 7.8 g/dl (6.1-8.1)
[2016-08-19 07:25] LABS: MAGNESIUM 1.8 mg/dl (1.7-2.5); PHOSPHORUS 4.8 mg/dl (2.5-4.9)
--- NOTE | 2016-08-19 07:54 | CONS ---
Date/Time of Note Date/Time of Note DATE: 08/19/16 TIME: 07:52 Assessment/Plan Assessment/Plan Chief Complaint/Hosp Course PEA cardiac arrest: secondary to severe metabolic acidosis. No VT/VF or EKG changes to suggest primary cardiac etiology. Trops ok, EF preserved. Consider stress testing prior to d/c Acute respiratory failure: intubated during code.Likely ARDS and some component of fluid overload. Now extubated 08/15 Acute diastolic heart failure: improving with diuresis. CXR better Severe metabolic acidosis: likely was the culprit for the arrest. Resolved Shock: ?septic.Off pressors Acute renal failure: unclear etiology. Was on intermittent HD. Good UOP. HD stopped Hypoglycemia Hypothyroidism Diarrhea/n/v/colitis HTN: uncontrolled at times -amlodipine 10mg -add cozaar 25mg -decrease lasix to 20mg IV BID Problems: Consultation Date/Type/Reason Admit Date/Time August 01, 2016 at 00:50 Initial Consult Date 08/01/16 Type of Consultation: Cardiology Referring Provider: NIKOLE KWON [facility], [facility] HR Interval Summary Free Text/Dictation No o/n events. Breathing ok. Exam/Review of Systems Vital Signs Vitals Vital Signs Date Time Temp Pulse Resp B/P Pulse Ox O2 Delivery O2 Flow Rate FiO2 08/19/16 04:55 80 08/19/16 03:44 98.8 20 148/78 96 08/18/16 19:35 Nasal Cannula 4.0 08/15/16 11:18 30 Intake and Output 08/18/16 08/18/16 08/19/16 15:00 23:00 07:00 Intake Total 720 ml 650 ml Output Total 900 ml 800 ml Balance -180 ml -150 ml Exam Constitutional: alert, oriented Head: atraumatic, normocephalic Neck: No jvd (difficult) Respiratory: diminished breath sounds, No clear to auscultation Cardiovascular: regular rate and rhythm, No edema, No systolic murmur Gastrointestinal: non-tender, soft Neurological: nl mental status, nl speech Results Result Diagram: 08/19/16 0540 08/19/16 0540 Results 24 hrs Laboratory Tests Test 08/18/16 08:21 08/18/16 12:15 08/18/16 20:22 08/19/16 05:40 Bedside Glucose 78 96 142 White Blood Count 10.9 H Red Blood Count 2.82 L Hemoglobin 9.3 L Hematocrit 27.7 L Mean Corpuscular Volume 98.2 Mean Corpuscular Hemoglobin 33.0 Mean Corpuscular Hemoglobin Concent 33.6 Red Cell Distribution Width 16.6 H Platelet Count 205 Mean Platelet Volume 12.0 H Neutrophils % 64.8 Lymphocytes % 18.8 Monocytes % 14.7 H Eosinophils % 0.8 Basophils % 0.2 Nucleated Red Blood Cells % 0.0 Neutrophils # 7.1 Lymphocytes # 2.0 Monocytes # 1.6 H Eosinophils # 0.1 Basophils # 0.0 Nucleated Red Blood Cells # 0.0 Sodium Level 136 Potassium Level 3.6 Chloride Level 99 Carbon Dioxide Level 31 Anion Gap 10 Blood Urea Nitrogen 31 H Creatinine 1.47 H Glucose Level 78 Calcium Level 9.5 Phosphorus Level 4.8 Magnesium Level 1.8 Total Bilirubin 0.3 Direct Bilirubin 0.00 Indirect Bilirubin 0.3 Aspartate Amino Transf (AST/SGOT) 25 Alanine Aminotransferase (ALT/SGPT) 26 Alkaline Phosphatase 171 H Total Protein 7.8 Albumin 3.4 Globulin 4.40 H Albumin/Globulin Ratio 0.77 Medications Medications Current Medications Ondansetron HCl (Zofran Inj) 4 mg Q6H PRN IV NAUSEA AND/OR VOMITING; Start at 03:00 Metoclopramide HCl (Reglan) 10 mg Q6H PRN IV NAUSEA AND/OR VOMITING; Start at 03:00 Acetaminophen (Tylenol Tab) 650 mg Q6H PRN PO PAIN LEVEL 1-3 OR FEVER Last administered on 08/16/16 08:33; Admin Dose 650 MG; Start 08/01/16 at 03:00 Acetaminophen (Tylenol Supp) 650 mg Q4H PRN [place] PAIN LEVEL 1-3 OR FEVER; Start 08/01/16 at 06:30 Miscellaneous Information 1 ea NOTE XX ; Start 08/02/16 at 09:00 Glucose (Glutose) 15 gm Q15M PRN PO DECREASED GLUCOSE; Start 08/02/16 at 09:00 Glucose (Glutose) 22.5 gm Q15M PRN PO DECREASED GLUCOSE; Start 08/02/16 at 09:00 Dextrose (D50w Syringe) 25 ml Q15M PRN IV DECREASED GLUCOSE Last administered on 6/15/17at 06:30; Admin Dose 25 ML; Start 08/02/16 at 09:00 Dextrose (D50w Syringe) 50 ml Q15M PRN IV DECREASED GLUCOSE; Start 08/02/16 at 09:00 Glucagon (Glucagen) 1 mg Q15M PRN IM DECREASED GLUCOSE; Start 08/02/16 at 09:00 Glucose (Glutose) 15 gm Q15M PRN BUCCAL DECREASED GLUCOSE; Start 08/02/16 at 09: 00 Calcium Carbonate (Ca Carbonate) 1,250 mg Q12 NGT Last administered on 20:23; Admin Dose 1,250 MG; Start 08/11/16 at 09:00 IV Flush (NS 10 ml) 10 ml PRN PRN IV FLUSH LINE; Start 08/11/16 at 20:00 Hydralazine HCl (Apresoline) 10 mg Q4H PRN IV SBP >160 Last administered on 17:21; Admin Dose 10 MG; Start 08/13/16 at 03:30 Amlodipine Besylate (Norvasc) 10 mg DAILY PO Last administered on 08/18/16 09: 13; Admin Dose 10 MG; Start 08/16/16 at 09:00 Hydromorphone HCl (Dilaudid) 1 mg Q4H PRN IV PAIN Last administered on 20:26; Admin Dose 1 MG; Start 08/16/16 at 08:30 Diagnostic Test (Pha) (Accu-Chek) 1 ea 02 XX ; Start 08/17/16 at 02:00 Levothyroxine Sodium (Synthroid) 175 mcg DAILY@06 PO Last administered on 05:31; Admin Dose 175 MCG; Start 08/18/16 at 06:00 Pantoprazole (Protonix Tab) 40 mg DAILY@06 PO Last administered on 08/19/16 05 :31; Admin Dose 40 MG; Start 08/18/16 at 06:00 Enoxaparin Sodium (Lovenox) 110 mg Q12 SC Last administered on 08/18/16 20:30 ; Admin Dose 110 MG; Start 08/17/16 at 21:00 Doxazosin Mesylate (Cardura) 2 mg HS PO Last administered on 08/18/16 20:23; Admin Dose 2 MG; Start 08/18/16 at 21:00 Lorazepam (Ativan) 0.5 mg Q6H PRN PO ANXIETY; Start 08/18/16 at 14:30 SEPIDEH HAN Aug 19, 2016 07:54
--- NOTE | 2016-08-19 07:59 | CONS ---
Date/Time of Note Date/Time of Note DATE: 08/19/16 TIME: 07:57 Consult Date/Type/Reason Admit Date/Time August 01, 2016 at 00:50 Initial Consult Date 08/01/16 Type of Consultation: neph Ordering Provider: [facility]WON [facility], [facility] Subjective The patient was transferred from intensive care unit to telemetry. The patient currently is on nasal cannula, but stable. No other events noted. continues good uo. poc reviewed with dr. aponte OBJECTIVE: HEENT: Head is normocephalic. NECK: Supple. HEART: Regular rate. LUNGS: Show diminished breath sounds at the bases. ABDOMEN: Soft, nontender to palpation. No rebound or guarding. EXTREMITIES: Negative for clubbing, cyanosis. No edema. DERMATOLOGIC: No rashes. MUSCULOSKELETAL: No joint effusions. NEUROLOGIC: No change in exam. Objective Vital Signs Date Time Temp Pulse Resp B/P Pulse Ox O2 Delivery O2 Flow Rate FiO2 08/19/16 04:55 80 08/19/16 03:44 98.8 20 148/78 96 08/18/16 19:35 Nasal Cannula 4.0 08/15/16 11:18 30 Intake and Output 08/18/16 08/18/16 08/19/16 15:00 23:00 07:00 Intake Total 720 ml 650 ml Output Total 900 ml 800 ml Balance -180 ml -150 ml Results/Medications Result Diagram: 08/19/16 0540 08/19/16 0540 Results 24 hrs Laboratory Tests Test 08/18/16 08:21 08/18/16 12:15 08/18/16 20:22 08/19/16 05:40 Bedside Glucose 78 96 142 White Blood Count 10.9 H Red Blood Count 2.82 L Hemoglobin 9.3 L Hematocrit 27.7 L Mean Corpuscular Volume 98.2 Mean Corpuscular Hemoglobin 33.0 Mean Corpuscular Hemoglobin Concent 33.6 Red Cell Distribution Width 16.6 H Platelet Count 205 Mean Platelet Volume 12.0 H Neutrophils % 64.8 Lymphocytes % 18.8 Monocytes % 14.7 H Eosinophils % 0.8 Basophils % 0.2 Nucleated Red Blood Cells % 0.0 Neutrophils # 7.1 Lymphocytes # 2.0 Monocytes # 1.6 H Eosinophils # 0.1 Basophils # 0.0 Nucleated Red Blood Cells # 0.0 Sodium Level 136 Potassium Level 3.6 Chloride Level 99 Carbon Dioxide Level 31 Anion Gap 10 Blood Urea Nitrogen 31 H Creatinine 1.47 H Glucose Level 78 Calcium Level 9.5 Phosphorus Level 4.8 Magnesium Level 1.8 Total Bilirubin 0.3 Direct Bilirubin 0.00 Indirect Bilirubin 0.3 Aspartate Amino Transf (AST/SGOT) 25 Alanine Aminotransferase (ALT/SGPT) 26 Alkaline Phosphatase 171 H Total Protein 7.8 Albumin 3.4 Globulin 4.40 H Albumin/Globulin Ratio 0.77 Medications Current Medications Ondansetron HCl (Zofran Inj) 4 mg Q6H PRN IV NAUSEA AND/OR VOMITING; Start at 03:00 Metoclopramide HCl (Reglan) 10 mg Q6H PRN IV NAUSEA AND/OR VOMITING; Start at 03:00 Acetaminophen (Tylenol Tab) 650 mg Q6H PRN PO PAIN LEVEL 1-3 OR FEVER Last administered on 08/16/16 08:33; Admin Dose 650 MG; Start 08/01/16 at 03:00 Acetaminophen (Tylenol Supp) 650 mg Q4H PRN [place] PAIN LEVEL 1-3 OR FEVER; Start 08/01/16 at 06:30 Miscellaneous Information 1 ea NOTE XX ; Start 08/02/16 at 09:00 Glucose (Glutose) 15 gm Q15M PRN PO DECREASED GLUCOSE; Start 08/02/16 at 09:00 Glucose (Glutose) 22.5 gm Q15M PRN PO DECREASED GLUCOSE; Start 08/02/16 at 09:00 Dextrose (D50w Syringe) 25 ml Q15M PRN IV DECREASED GLUCOSE Last administered on 08/16/16 06:30; Admin Dose 25 ML; Start 08/02/16 at 09:00 Dextrose (D50w Syringe) 50 ml Q15M PRN IV DECREASED GLUCOSE; Start 08/02/16 at 09:00 Glucagon (Glucagen) 1 mg Q15M PRN IM DECREASED GLUCOSE; Start 08/02/16 at 09:00 Glucose (Glutose) 15 gm Q15M PRN BUCCAL DECREASED GLUCOSE; Start 08/02/16 at 09: 00 Calcium Carbonate (Ca Carbonate) 1,250 mg Q12 NGT Last administered on 20:23; Admin Dose 1,250 MG; Start 08/11/16 at 09:00 IV Flush (NS 10 ml) 10 ml PRN PRN IV FLUSH LINE; Start 08/11/16 at 20:00 Hydralazine HCl (Apresoline) 10 mg Q4H PRN IV SBP >160 Last administered on 17:21; Admin Dose 10 MG; Start 08/13/16 at 03:30 Amlodipine Besylate (Norvasc) 10 mg DAILY PO Last administered on 08/18/16 09: 13; Admin Dose 10 MG; Start 08/16/16 at 09:00 Hydromorphone HCl (Dilaudid) 1 mg Q4H PRN IV PAIN Last administered on 20:26; Admin Dose 1 MG; Start 08/16/16 at 08:30 Diagnostic Test (Pha) (Accu-Chek) 1 ea 02 XX ; Start 08/17/16 at 02:00 Levothyroxine Sodium (Synthroid) 175 mcg DAILY@06 PO Last administered on 05:31; Admin Dose 175 MCG; Start 08/18/16 at 06:00 Pantoprazole (Protonix Tab) 40 mg DAILY@06 PO Last administered on 08/19/16 05 :31; Admin Dose 40 MG; Start 08/18/16 at 06:00 Enoxaparin Sodium (Lovenox) 110 mg Q12 SC Last administered on 08/18/16 20:30 ; Admin Dose 110 MG; Start 08/17/16 at 21:00 Doxazosin Mesylate (Cardura) 2 mg HS PO Last administered on 08/18/16 20:23; Admin Dose 2 MG; Start 08/18/16 at 21:00 Lorazepam (Ativan) 0.5 mg Q6H PRN PO ANXIETY; Start 08/18/16 at 14:30 Assessment/Plan Chief Complaint/Hosp Course 1. Nonoliguric acute kidney injury with unknown baseline creatinine. Etiology is secondary to acute tubular necrosis due to septic shock, ischemic hypoperfusion. The patient is status post hemodialysis. The patient has shown excellent recovery. Continue current treatment plan, supportive care, renally dose all meds. monitor labs. avoid nephrotoxins. 2. Volume overload secondary to acute kidney disease, congestive heart failure. The patient's last chest x-ray shows worsening congestion. Continue Lasix at 40 mg IV b.i.d. Repeat x-ray shows improvement. Continue to monitor. 3. Mineral bone disease. Continue to monitor calcium and phosphorus levels. 4. Anemia. Continue to monitor hemoglobin and hematocrit levels. 5. Respiratory failure, status post extubation. Currently stable on 4 liters nasal cannula, continue. Follow up with pulmonary. 6. Sepsis, status post shock. Continue current antibiotic regimen. 7. Dysphagia, tolerating modified diet, continue. 8. Hypothyroidism. Continue Synthroid. 9. Diabetes. Continue Accu-Cheks and insulin sliding scale. 10. History of ETOH abuse. 11. History of cardiopulmonary arrest. Problems: OSIEL OMALLEY MD Aug 19, 2016 07:59
[2016-08-19] MEDS: INSULIN ASPART [NOVOLOG] 3 ML PEN SC SCH ×4 (08:00→22:19)
[2016-08-19] MEDS: ALBUTEROL/IPRATROPIUM (NEB) 3 ML AMP HHN SCH ×3 (08:34→22:28)
[2016-08-19] MEDS ORDERED: LOSARTAN 25 MG TAB PO SCH (09:00)
[2016-08-19] MEDS: AMLODIPINE 10 MG TAB PO SCH (09:06)
[2016-08-19] MEDS: CA CARBONATE (250 MG/ML) 5ML CUP NGT SCH ×2 (09:06→22:17)
[2016-08-19] MEDS: ENOXAPARIN 60 MG/0.6 ML SYG SC SCH ×2 (09:08→22:17)
--- NOTE | 2016-08-19 11:51 | PN ---
Date/Time of Note Date/Time of Note DATE: 08/19/16 TIME: 11:47 Assessment/Plan VTE Prophylaxis VTE Prophylaxis Intervention: heparin Lines/Catheters IV [facility] Type (from [facility]): PICC Line Central line still needed: Yes Urinary Cath still in place: Yes Reason Cath still needed: urinary retention (Undergoing bladder retraining at this time. Goal to DC Silver in the next 48 hours) Assessment/Plan Chief Complaint/Hosp Course 60-year-old right-handed -Chinese gentleman normally cared for at the [facility]. He was admitted to the hospital but it had cardiac arrest in the hospital. Problems: (1) Metabolic syndrome Status: Chronic Comment: He has had this for some time. When he was on steroids at unmask this. Off the steroids his sugars are perfectly normal. (2) Acute kidney injury Status: Acute Comment: This is improved significantly in nicely. We have no idea what his baseline is due to his charts being at the [facility]. However is improved and well (3) Vomiting and diarrhea Status: Resolved Comment: He has improved. Is quite likely that he had some type of significant enteritis that brought him in the hospital combined with his alcoholism. This led to the high anion gap state which then caused due to the acidosis the aggressive cardiac dysrhythmia. He is now stabilized (4) Hypothyroidism Status: Chronic Comment: He is on medication and will be titrated to effect. Qualifiers: Hypothyroidism type: acquired Qualified Code: E03.9 - Acquired hypothyroidism (5) Hyperglycemia Status: Resolved Comment: Resolved (6) Lactic acidosis Status: Resolved Comment: Resolved early in hospital course. (7) Alcohol abuse Status: Chronic Comment: We are well past the point of DTs or formalized withdrawal. He has his care through the [place] [facility] where he can be referred for rehabilitative care for this. He however needs physical therapy rehabilitative care for approximately 1 month recover from this episode (8) Onychomycosis Status: Chronic Comment: He has received pulse therapy (9) High anion gap metabolic acidosis Status: Resolved (10) Hematuria of undiagnosed cause Status: Acute Assessment/Plan Overall after the cardiac arrest shortly after admission he has done quite nicely. He will need placement into a facility for long-term rehabilitative care. At this time he can be downgraded from telemetry to regular [facility] floor beds and probably to an outpatient or correction to an ECF in the next 24- 48 hours Subjective 24 Hr Interval Summary Free Text/Dictation Patient much more awake and alert and able answer questions. Constitutional: no complaints Respiratory: no complaints Cardiovascular: no complaints Gastrointestinal: no complaints Genitourinary: no complaints Musculoskeletal: no complaints Exam/Review of Systems Vital Signs Vitals Vital Signs Date Time Temp Pulse Resp B/P Pulse Ox O2 Delivery O2 Flow Rate FiO2 08/19/16 08:36 84 22 96 Nasal Cannula 4.0 08/19/16 08:04 98.5 138/63 08/15/16 11:18 30 Intake and Output 08/18/16 08/18/16 08/19/16 15:00 23:00 07:00 Intake Total 720 ml 650 ml Output Total 900 ml 800 ml Balance -180 ml -150 ml Exam Constitutional: alert, oriented Neck: non-tender, supple Respiratory: clear to auscultation, normal air movement Cardiovascular: nl pulses, regular rate and rhythm Gastrointestinal: nl liver, spleen, non-tender, soft Results Result Diagram: 08/19/16 0540 08/19/16 0540 Results 24 hrs Laboratory Tests Test 08/18/16 12:15 08/18/16 20:22 08/19/16 05:40 08/19/16 07:56 Bedside Glucose 96 142 77 White Blood Count 10.9 H Red Blood Count 2.82 L Hemoglobin 9.3 L Hematocrit 27.7 L Mean Corpuscular Volume 98.2 Mean Corpuscular Hemoglobin 33.0 Mean Corpuscular Hemoglobin Concent 33.6 Red Cell Distribution Width 16.6 H Platelet Count 205 Mean Platelet Volume 12.0 H Neutrophils % 64.8 Lymphocytes % 18.8 Monocytes % 14.7 H Eosinophils % 0.8 Basophils % 0.2 Nucleated Red Blood Cells % 0.0 Neutrophils # 7.1 Lymphocytes # 2.0 Monocytes # 1.6 H Eosinophils # 0.1 Basophils # 0.0 Nucleated Red Blood Cells # 0.0 Sodium Level 136 Potassium Level 3.6 Chloride Level 99 Carbon Dioxide Level 31 Anion Gap 10 Blood Urea Nitrogen 31 H Creatinine 1.47 H Glucose Level 78 Calcium Level 9.5 Phosphorus Level 4.8 Magnesium Level 1.8 Total Bilirubin 0.3 Direct Bilirubin 0.00 Indirect Bilirubin 0.3 Aspartate Amino Transf (AST/SGOT) 25 Alanine Aminotransferase (ALT/SGPT) 26 Alkaline Phosphatase 171 H Total Protein 7.8 Albumin 3.4 Globulin 4.40 H Albumin/Globulin Ratio 0.77 Medications Medications Current Medications Ondansetron HCl (Zofran Inj) 4 mg Q6H PRN IV NAUSEA AND/OR VOMITING; Start at 03:00 Metoclopramide HCl (Reglan) 10 mg Q6H PRN IV NAUSEA AND/OR VOMITING; Start at 03:00 Acetaminophen (Tylenol Tab) 650 mg Q6H PRN PO PAIN LEVEL 1-3 OR FEVER Last administered on 08/16/16 08:33; Admin Dose 650 MG; Start 08/01/16 at 03:00 Acetaminophen (Tylenol Supp) 650 mg Q4H PRN [place] PAIN LEVEL 1-3 OR FEVER; Start 08/01/16 at 06:30 Miscellaneous Information 1 ea NOTE XX ; Start 08/02/16 at 09:00 Glucose (Glutose) 15 gm Q15M PRN PO DECREASED GLUCOSE; Start 08/02/16 at 09:00 Glucose (Glutose) 22.5 gm Q15M PRN PO DECREASED GLUCOSE; Start 08/02/16 at 09:00 Dextrose (D50w Syringe) 25 ml Q15M PRN IV DECREASED GLUCOSE Last administered on 08/16/16 06:30; Admin Dose 25 ML; Start 08/02/16 at 09:00 Dextrose (D50w Syringe) 50 ml Q15M PRN IV DECREASED GLUCOSE; Start 08/02/16 at 09:00 Glucagon (Glucagen) 1 mg Q15M PRN IM DECREASED GLUCOSE; Start 08/02/16 at 09:00 Glucose (Glutose) 15 gm Q15M PRN BUCCAL DECREASED GLUCOSE; Start 08/02/16 at 09: 00 Calcium Carbonate (Ca Carbonate) 1,250 mg Q12 NGT Last administered on 09:06; Admin Dose 1,250 MG; Start 08/11/16 at 09:00 IV Flush (NS 10 ml) 10 ml PRN PRN IV FLUSH LINE; Start 08/11/16 at 20:00 Hydralazine HCl (Apresoline) 10 mg Q4H PRN IV SBP >160 Last administered on 17:21; Admin Dose 10 MG; Start 08/13/16 at 03:30 Amlodipine Besylate (Norvasc) 10 mg DAILY PO Last administered on 08/19/16 09: 06; Admin Dose 10 MG; Start 08/16/16 at 09:00 Hydromorphone HCl (Dilaudid) 1 mg Q4H PRN IV PAIN Last administered on 20:26; Admin Dose 1 MG; Start 08/16/16 at 08:30 Diagnostic Test (Pha) (Accu-Chek) 1 ea 02 XX ; Start 08/17/16 at 02:00 Levothyroxine Sodium (Synthroid) 175 mcg DAILY@06 PO Last administered on 05:31; Admin Dose 175 MCG; Start 08/18/16 at 06:00 Pantoprazole (Protonix Tab) 40 mg DAILY@06 PO Last administered on 08/19/16 05 :31; Admin Dose 40 MG; Start 08/18/16 at 06:00 Enoxaparin Sodium (Lovenox) 110 mg Q12 SC Last administered on 08/19/16 09:08 ; Admin Dose 110 MG; Start 08/17/16 at 21:00 Doxazosin Mesylate (Cardura) 2 mg HS PO Last administered on 08/18/16 20:23; Admin Dose 2 MG; Start 08/18/16 at 21:00 Lorazepam (Ativan) 0.5 mg Q6H PRN PO ANXIETY; Start 08/18/16 at 14:30 Losartan Potassium (Cozaar) 25 mg DAILY PO Last administered on 08/19/16 09:06 ; Admin Dose 25 MG; Start 08/19/16 at 09:00 ERIN MARTÍNEZ MD Aug 19, 2016 11:51
--- NOTE | 2016-08-19 12:24 | CONS ---
Date/Time of Note Date/Time of Note DATE: 08/19/16 TIME: 12:23 Assessment/Plan Assessment/Plan Chief Complaint/Hosp Course SUBJECTIVE: No acute changed, awake, looks comfortable, no fevers. INDWELLINGS: PICC, right femoral Deni catheter, Silver. PHYSICAL EXAMINATION: GENERAL: Chronically ill-appearing, middle-aged man in no distress. HEENT: Head atraumatic, normocephalic. Sclerae anicteric. Buccal mucosa dry. NECK: Supple, trachea midline. CHEST: Rise symmetrical. Breath sounds diminished to bases. HEART: S1, S2. ABDOMEN: Distended, soft. Bowel tones hypoactive. EXTREMITIES: Bilateral edema. ASSESSMENT: 1. S/p sepsis with shock 2. S/p acute respiratory failure. 3. Acute kidney injury 4. Status post cardiopulmonary arrest. 5. Encephalopathy===> resolving. 6. History of ETOH abuse. 7. Diarrhea===> neg C dif 8. Leukocytosis===> resolving, off steroids PLAN: The patient remains stable, completed abx, continue present care and reculture prn. DW staff Problems: Consultation Date/Type/Reason Admit Date/Time August 01, 2016 at 00:50 Initial Consult Date 08/01/16 Type of Consultation: id Referring Provider: NIKOLE KWON MD, [facility] Exam/Review of Systems Vital Signs Vitals Vital Signs Date Time Temp Pulse Resp B/P Pulse Ox O2 Delivery O2 Flow Rate FiO2 08/19/16 12:03 85 08/19/16 11:59 98.3 20 163/77 98 08/19/16 08:36 Nasal Cannula 4.0 08/15/16 11:18 30 Intake and Output 08/18/16 08/18/16 08/19/16 15:00 23:00 07:00 Intake Total 720 ml 650 ml Output Total 900 ml 800 ml Balance -180 ml -150 ml Results Result Diagram: 08/19/16 0540 08/19/16 0540 Results 24 hrs Laboratory Tests Test 08/18/16 20:22 08/19/16 05:40 08/19/16 07:56 08/19/16 11:59 Bedside Glucose 142 77 93 White Blood Count 10.9 H Red Blood Count 2.82 L Hemoglobin 9.3 L Hematocrit 27.7 L Mean Corpuscular Volume 98.2 Mean Corpuscular Hemoglobin 33.0 Mean Corpuscular Hemoglobin Concent 33.6 Red Cell Distribution Width 16.6 H Platelet Count 205 Mean Platelet Volume 12.0 H Neutrophils % 64.8 Lymphocytes % 18.8 Monocytes % 14.7 H Eosinophils % 0.8 Basophils % 0.2 Nucleated Red Blood Cells % 0.0 Neutrophils # 7.1 Lymphocytes # 2.0 Monocytes # 1.6 H Eosinophils # 0.1 Basophils # 0.0 Nucleated Red Blood Cells # 0.0 Sodium Level 136 Potassium Level 3.6 Chloride Level 99 Carbon Dioxide Level 31 Anion Gap 10 Blood Urea Nitrogen 31 H Creatinine 1.47 H Glucose Level 78 Calcium Level 9.5 Phosphorus Level 4.8 Magnesium Level 1.8 Total Bilirubin 0.3 Direct Bilirubin 0.00 Indirect Bilirubin 0.3 Aspartate Amino Transf (AST/SGOT) 25 Alanine Aminotransferase (ALT/SGPT) 26 Alkaline Phosphatase 171 H Total Protein 7.8 Albumin 3.4 Globulin 4.40 H Albumin/Globulin Ratio 0.77 Medications Medications Current Medications Ondansetron HCl (Zofran Inj) 4 mg Q6H PRN IV NAUSEA AND/OR VOMITING; Start at 03:00 Metoclopramide HCl (Reglan) 10 mg Q6H PRN IV NAUSEA AND/OR VOMITING; Start at 03:00 Acetaminophen (Tylenol Tab) 650 mg Q6H PRN PO PAIN LEVEL 1-3 OR FEVER Last administered on 08/16/16 08:33; Admin Dose 650 MG; Start 08/01/16 at 03:00 Acetaminophen (Tylenol Supp) [address] PAIN LEVEL 1-3 OR FEVER; Start 08/01/16 at 06:30 Miscellaneous Information 1 ea NOTE XX ; Start 08/02/16 at 09:00 Glucose (Glutose) 15 gm Q15M PRN PO DECREASED GLUCOSE; Start 08/02/16 at 09:00 Glucose (Glutose) 22.5 gm Q15M PRN PO DECREASED GLUCOSE; Start 08/02/16 at 09:00 Dextrose (D50w Syringe) 25 ml Q15M PRN IV DECREASED GLUCOSE Last administered on 08/16/16 06:30; Admin Dose 25 ML; Start 08/02/16 at 09:00 Dextrose (D50w Syringe) 50 ml Q15M PRN IV DECREASED GLUCOSE; Start 08/02/16 at 09:00 Glucagon (Glucagen) 1 mg Q15M PRN IM DECREASED GLUCOSE; Start 08/02/16 at 09:00 Glucose (Glutose) 15 gm Q15M PRN BUCCAL DECREASED GLUCOSE; Start 08/02/16 at 09: 00 Calcium Carbonate (Ca Carbonate) 1,250 mg Q12 NGT Last administered on 09:06; Admin Dose 1,250 MG; Start 08/11/16 at 09:00 IV Flush (NS 10 ml) 10 ml PRN PRN IV FLUSH LINE; Start 08/11/16 at 20:00 Hydralazine HCl (Apresoline) 10 mg Q4H PRN IV SBP >160 Last administered on 17:21; Admin Dose 10 MG; Start 08/13/16 at 03:30 Hydromorphone HCl (Dilaudid) 1 mg Q4H PRN IV PAIN Last administered on 20:26; Admin Dose 1 MG; Start 08/16/16 at 08:30 Levothyroxine Sodium (Synthroid) 175 mcg DAILY@06 PO Last administered on 05:31; Admin Dose 175 MCG; Start 08/18/16 at 06:00 Pantoprazole (Protonix Tab) 40 mg DAILY@06 PO Last administered on 08/19/16 05 :31; Admin Dose 40 MG; Start 08/18/16 at 06:00 Enoxaparin Sodium (Lovenox) 110 mg Q12 SC Last administered on 08/19/16 09:08 ; Admin Dose 110 MG; Start 08/17/16 at 21:00 Amlodipine Besylate (Norvasc) 5 mg DAILY PO ; Start 08/20/16 at 09:00 Doxazosin Mesylate (Cardura) 4 mg HS PO ; Start 08/19/16 at 21:00 Lorazepam (Ativan) 0.5 mg Q8H PRN PO ANXIETY; Start 08/19/16 at 14:00 Losartan Potassium (Cozaar) 50 mg DAILY PO ; Start 08/20/16 at 09:00 RADHA ESCALANTE NP Aug 19, 2016 12:24
--- NOTE | 2016-08-19 13:20 | CONS ---
Date/Time of Note Date/Time of Note DATE: 08/19/16 TIME: 13:18 Assessment/Plan Assessment/Plan Additional Assessment/Plan Assessment and recommendations; 1. Patient admitted with septic shock and respiratory failure with marked overall clinical improvement. Off antibiotics now. 2. Acute renal failure, patient required only 2 hemodialysis sessions. 3. Generalized deconditioning. 4. Morbid obesity, likely underlying sleep apnea as well. Continue current supportive care. Initiate physical therapy. Consultation Date/Type/Reason Admit Date/Time August 01, 2016 at 00:50 Initial Consult Date 08/01/16 Type of Consultation: Pulmonary Referring Provider: NIKOLE KWON MD, [facility] 24 HR Interval Summary Free Text/Dictation Patient condition stable. Denies any shortness breath, chest pain, wheezing cough or sputum production. She complains of mild generalized weakness. Don; middle-aged male, morbidly obese, awake and alert. Currently in no distress. Exam/Review of Systems Vital Signs Vitals Vital Signs Date Time Temp Pulse Resp B/P Pulse Ox O2 Delivery O2 Flow Rate FiO2 08/19/16 13:14 72 148/72 08/19/16 11:59 98.3 20 98 08/19/16 08:36 Nasal Cannula 4.0 08/15/16 11:18 30 Intake and Output 08/18/16 08/18/16 08/19/16 15:00 23:00 07:00 Intake Total 720 ml 650 ml Output Total 900 ml 800 ml Balance -180 ml -150 ml Exam HEENT exam is; supple neck, no JVD. No lymphadenopathy midline trachea. No thyromegaly. Patient has fair dentition. Pupils are midsize and reactive to light bilaterally. Chest examination; diminished but clear vessel. S1-S2 audible, no murmurs. Regular rhythm. Abdomen examination; soft, protuberant. No organomegaly. Bowel sounds audible. Extremity exam; no peripheral edema. Pulses 1+ bilaterally. CROWN BUFFER examination; no focal deficit. Results Result Diagram: 08/19/16 0540 08/19/16 0540 Results 24 hrs Laboratory Tests Test 08/18/16 20:22 08/19/16 05:40 08/19/16 07:56 08/19/16 11:59 Bedside Glucose 142 77 93 White Blood Count 10.9 H Red Blood Count 2.82 L Hemoglobin 9.3 L Hematocrit 27.7 L Mean Corpuscular Volume 98.2 Mean Corpuscular Hemoglobin 33.0 Mean Corpuscular Hemoglobin Concent 33.6 Red Cell Distribution Width 16.6 H Platelet Count 205 Mean Platelet Volume 12.0 H Neutrophils % 64.8 Lymphocytes % 18.8 Monocytes % 14.7 H Eosinophils % 0.8 Basophils % 0.2 Nucleated Red Blood Cells % 0.0 Neutrophils # 7.1 Lymphocytes # 2.0 Monocytes # 1.6 H Eosinophils # 0.1 Basophils # 0.0 Nucleated Red Blood Cells # 0.0 Sodium Level 136 Potassium Level 3.6 Chloride Level 99 Carbon Dioxide Level 31 Anion Gap 10 Blood Urea Nitrogen 31 H Creatinine 1.47 H Glucose Level 78 Calcium Level 9.5 Phosphorus Level 4.8 Magnesium Level 1.8 Total Bilirubin 0.3 Direct Bilirubin 0.00 Indirect Bilirubin 0.3 Aspartate Amino Transf (AST/SGOT) 25 Alanine Aminotransferase (ALT/SGPT) 26 Alkaline Phosphatase 171 H Total Protein 7.8 Albumin 3.4 Globulin 4.40 H Albumin/Globulin Ratio 0.77 Medications Medications Current Medications Ondansetron HCl (Zofran Inj) 4 mg Q6H PRN IV NAUSEA AND/OR VOMITING; Start at 03:00 Metoclopramide HCl (Reglan) 10 mg Q6H PRN IV NAUSEA AND/OR VOMITING; Start at 03:00 Acetaminophen (Tylenol Tab) 650 mg Q6H PRN PO PAIN LEVEL 1-3 OR FEVER Last administered on 08/16/16 08:33; Admin Dose 650 MG; Start 08/01/16 at 03:00 Acetaminophen (Tylenol Supp) 650 mg Q4H PRN [place] PAIN LEVEL 1-3 OR FEVER; Start 08/01/16 at 06:30 Miscellaneous Information 1 ea NOTE XX ; Start 08/02/16 at 09:00 Glucose (Glutose) 15 gm Q15M PRN PO DECREASED GLUCOSE; Start 08/02/16 at 09:00 Glucose (Glutose) 22.5 gm Q15M PRN PO DECREASED GLUCOSE; Start 08/02/16 at 09:00 Dextrose (D50w Syringe) 25 ml Q15M PRN IV DECREASED GLUCOSE Last administered on 08/16/16 06:30; Admin Dose 25 ML; Start 08/02/16 at 09:00 Dextrose (D50w Syringe) 50 ml Q15M PRN IV DECREASED GLUCOSE; Start 08/02/16 at 09:00 Glucagon (Glucagen) 1 mg Q15M PRN IM DECREASED GLUCOSE; Start 08/02/16 at 09:00 Glucose (Glutose) 15 gm Q15M PRN BUCCAL DECREASED GLUCOSE; Start 08/02/16 at 09: 00 Calcium Carbonate (Ca Carbonate) 1,250 mg Q12 NGT Last administered on 09:06; Admin Dose 1,250 MG; Start 08/11/16 at 09:00 IV Flush (NS 10 ml) 10 ml PRN PRN IV FLUSH LINE; Start 08/11/16 at 20:00 Hydralazine HCl (Apresoline) 10 mg Q4H PRN IV SBP >160 Last administered on 17:21; Admin Dose 10 MG; Start 08/13/16 at 03:30 Hydromorphone HCl (Dilaudid) 1 mg Q4H PRN IV PAIN Last administered on 20:26; Admin Dose 1 MG; Start 08/16/16 at 08:30 Levothyroxine Sodium (Synthroid) 175 mcg DAILY@06 PO Last administered on 05:31; Admin Dose 175 MCG; Start 08/18/16 at 06:00 Pantoprazole (Protonix Tab) 40 mg DAILY@06 PO Last administered on 08/19/16 05 :31; Admin Dose 40 MG; Start 08/18/16 at 06:00 Enoxaparin Sodium (Lovenox) 110 mg Q12 SC Last administered on 08/19/16 09:08 ; Admin Dose 110 MG; Start 08/17/16 at 21:00 Amlodipine Besylate (Norvasc) 5 mg DAILY PO ; Start 08/20/16 at 09:00 Doxazosin Mesylate (Cardura) 4 mg HS PO ; Start 08/19/16 at 21:00 Lorazepam (Ativan) 0.5 mg Q8H PRN PO ANXIETY; Start 08/19/16 at 14:00 Losartan Potassium (Cozaar) 50 mg DAILY PO ; Start 08/20/16 at 09:00 MIGUEL CHINCHILLA Aug 19, 2016 13:20
[2016-08-19] MEDS ORDERED: LORAZEPAM 0.5 MG TAB PO PRN (14:00)
[2016-08-19] MEDS: FUROSEMIDE 20 MG INJ IV SCH (18:04)
[2016-08-19] MEDS: DOXAZOSIN 4 MG TAB PO SCH (22:19)
[2016-08-20 06:37] LABS: ADD SCAN DIFF NO
[2016-08-20 06:41] LABS: BASOPHILS % 0.3 % (0.0-2.0); EOSINOPHILS # 0.1 10^3/ul (0.0-0.5); EOSINOPHILS % 1.3 % (0.0-7.0); HEMATOCRIT 31.2 % (42.0-52.0); HEMOGLOBIN 10.3 g/dl (14.0-18.0); LYMPHOCYTES # 1.5 10^3/ul (0.8-2.9); LYMPHOCYTES % 14.2 % (15.0-51.0); MEAN CORPUSCULAR HEMOGLOBIN 33.2 pg (29.0-33.0); MEAN CORPUSCULAR VOLUME 100.6 fl (82.0-101.0); MEAN PLATELET VOLUME 12.4 fl (7.4-10.4); MONOCYTE # 1.2 10^3/ul (0.3-0.9); MONOCYTES % 11.5 % (0.0-11.0); NEUTROPHIL # 7.8 10^3/ul (1.6-7.5); NEUTROPHILS % 72.1 % (39.0-77.0); RED CELL DISTRIBUTION WIDTH 16.5 % (11.5-14.5); WHITE BLOOD COUNT 10.7 10^3/ul (4.8-10.8)
[2016-08-20] MEDS: FUROSEMIDE 20 MG INJ IV SCH (06:45)
[2016-08-20] MEDS: LEVOTHYROXINE 175 MCG TAB PO SCH (06:46)
[2016-08-20] MEDS: PANTOPRAZOLE (EC) 40 MG TAB PO SCH (06:46)
[2016-08-20 06:51] LABS: PLATELET COUNT 251 10^3/UL (140-415)
[2016-08-20 07:35] LABS: CALCIUM 9.6 mg/dl (8.4-10.2); CREATININE 1.17 mg/dl (0.61-1.24); MAGNESIUM 1.8 mg/dl (1.7-2.5); PHOSPHORUS 4.5 mg/dl (2.5-4.9); POTASSIUM 4.5 mmol/L (3.5-5.1)
[2016-08-20 07:37] VITALS: BP 157/82; RESP 20
[2016-08-20] MEDS: INSULIN ASPART [NOVOLOG] 3 ML PEN SC SCH ×4 (08:15→21:00)
[2016-08-20] MEDS: AMLODIPINE 5 MG TAB PO SCH (08:36)
[2016-08-20] MEDS: CA CARBONATE (250 MG/ML) 5ML CUP NGT SCH ×2 (08:36→20:37)
[2016-08-20] MEDS: LOSARTAN 50 MG TAB PO SCH (08:36)
[2016-08-20] MEDS: ENOXAPARIN 60 MG/0.6 ML SYG SC SCH ×2 (08:47→20:47)
[2016-08-20] MEDS: ALBUTEROL/IPRATROPIUM (NEB) 3 ML AMP HHN SCH ×3 (09:00→20:21)
--- NOTE | 2016-08-20 12:20 | CONS ---
Date/Time of Note Date/Time of Note DATE: 08/20/16 TIME: 12:18 Assessment/Plan Assessment/Plan Chief Complaint/Hosp Course PEA cardiac arrest: secondary to severe metabolic acidosis. No VT/VF or EKG changes to suggest primary cardiac etiology. Trops ok, EF preserved. Consider stress testing prior to d/c or as outpt Acute respiratory failure: intubated during code.Likely ARDS and some component of fluid overload. Now extubated 08/15 Acute diastolic heart failure: improving with diuresis. CXR improving Severe metabolic acidosis: likely was the culprit for the arrest. Resolved Shock: ?septic.Off pressors Acute renal failure: unclear etiology. Was on intermittent HD. Good UOP. HD stopped. Now resolved Hypoglycemia Hypothyroidism Diarrhea/n/v/colitis HTN: uncontrolled at times but better -amlodipine 5mg -agree with cozaar 50mg -decrease to lasix 20mg daily Problems: Consultation Date/Type/Reason Admit Date/Time August 01, 2016 at 00:50 Initial Consult Date 08/01/16 Type of Consultation: Cardiology Referring Provider: NIKOLE KWON MD, [facility] 24 HR Interval Summary Free Text/Dictation No o/n events. BP better Exam/Review of Systems Vital Signs Vitals Vital Signs Date Time Temp Pulse Resp B/P Pulse Ox O2 Delivery O2 Flow Rate FiO2 08/20/16 09:00 3.0 08/20/16 09:00 80 22 97 Nasal Cannula 08/20/16 07:37 98.9 157/82 Intake and Output 08/19/16 08/19/16 08/20/16 15:00 23:00 07:00 Intake Total 800 ml 520 ml Output Total 1200 ml 900 ml Balance -400 ml -380 ml Exam Constitutional: alert, oriented Psych: no complaints Head: atraumatic, normocephalic Neck: No jvd Respiratory: clear to auscultation, No crackles/rales Cardiovascular: regular rate and rhythm, No edema Gastrointestinal: non-tender, soft Neurological: nl mental status, nl speech Results Result Diagram: 08/20/1628 08/20/1628 Results 24 hrs Laboratory Tests Test 08/19/16 17:58 08/19/16 22:16 08/20/16 05:28 08/20/16 07:58 Bedside Glucose 74 98 74 White Blood Count 10.7 Red Blood Count 3.10 L Hemoglobin 10.3 L Hematocrit 31.2 L Mean Corpuscular Volume 100.6 Mean Corpuscular Hemoglobin 33.2 H Mean Corpuscular Hemoglobin Concent 33.0 Red Cell Distribution Width 16.5 H Platelet Count 251 # Mean Platelet Volume 12.4 H Neutrophils % 72.1 Lymphocytes % 14.2 L Monocytes % 11.5 H Eosinophils % 1.3 Basophils % 0.3 Nucleated Red Blood Cells % 0.0 Neutrophils # 7.8 H Lymphocytes # 1.5 Monocytes # 1.2 H Eosinophils # 0.1 Basophils # 0.0 Nucleated Red Blood Cells # 0.0 Sodium Level 134 L Potassium Level 4.5 Chloride Level 99 Carbon Dioxide Level 29 Anion Gap 11 Blood Urea Nitrogen 32 H Creatinine 1.17 Glucose Level 73 Calcium Level 9.6 Phosphorus Level 4.5 Magnesium Level 1.8 Test 08/20/16 11:53 Bedside Glucose 115 Medications Medications Current Medications Ondansetron HCl (Zofran Inj) 4 mg Q6H PRN IV NAUSEA AND/OR VOMITING; Start at 03:00 Metoclopramide HCl (Reglan) 10 mg Q6H PRN IV NAUSEA AND/OR VOMITING; Start at 03:00 Acetaminophen (Tylenol Tab) 650 mg Q6H PRN PO PAIN LEVEL 1-3 OR FEVER Last administered on 08/16/16 08:33; Admin Dose 650 MG; Start 08/01/16 at 03:00 Acetaminophen (Tylenol Supp) 650 mg Q4H PRN [place] PAIN LEVEL 1-3 OR FEVER; Start 08/01/16 at 06:30 Miscellaneous Information 1 ea NOTE XX ; Start 08/02/16 at 09:00 Glucose (Glutose) 15 gm Q15M PRN PO DECREASED GLUCOSE; Start 08/02/16 at 09:00 Glucose (Glutose) 22.5 gm Q15M PRN PO DECREASED GLUCOSE; Start 08/02/16 at 09:00 Dextrose (D50w Syringe) 25 ml Q15M PRN IV DECREASED GLUCOSE Last administered on 08/16/16 06:30; Admin Dose 25 ML; Start 08/02/16 at 09:00 Dextrose (D50w Syringe) 50 ml Q15M PRN IV DECREASED GLUCOSE; Start 08/02/16 at 09:00 Glucagon (Glucagen) 1 mg Q15M PRN IM DECREASED GLUCOSE; Start 08/02/16 at 09:00 Glucose (Glutose) 15 gm Q15M PRN BUCCAL DECREASED GLUCOSE; Start 08/02/16 at 09: 00 Calcium Carbonate (Ca Carbonate) 1,250 mg Q12 NGT Last administered on 08:36; Admin Dose 1,250 MG; Start 08/11/16 at 09:00 IV Flush (NS 10 ml) 10 ml PRN PRN IV FLUSH LINE; Start 08/11/16 at 20:00 Hydralazine HCl (Apresoline) 10 mg Q4H PRN IV SBP >160 Last administered on 17:21; Admin Dose 10 MG; Start 08/13/16 at 03:30 Hydromorphone HCl (Dilaudid) 1 mg Q4H PRN IV PAIN Last administered on 20:26; Admin Dose 1 MG; Start 08/16/16 at 08:30 Levothyroxine Sodium (Synthroid) 175 mcg DAILY@06 PO Last administered on 06:46; Admin Dose 175 MCG; Start 08/18/16 at 06:00 Pantoprazole (Protonix Tab) 40 mg DAILY@06 PO Last administered on 08/20/16 06 :46; Admin Dose 40 MG; Start 08/18/16 at 06:00 Enoxaparin Sodium (Lovenox) 110 mg Q12 SC Last administered on 08/20/16 08:47 ; Admin Dose 110 MG; Start 08/17/16 at 21:00 Amlodipine Besylate (Norvasc) 5 mg DAILY PO Last administered on 08/20/16 08: 36; Admin Dose 5 MG; Start 08/20/16 at 09:00 Doxazosin Mesylate (Cardura) 4 mg HS PO Last administered on 08/19/16 22:19; Admin Dose 4 MG; Start 08/19/16 at 21:00 Lorazepam (Ativan) 0.5 mg Q8H PRN PO ANXIETY; Start 08/19/16 at 14:00 Losartan Potassium (Cozaar) 50 mg DAILY PO Last administered on 08/20/16 08:36 ; Admin Dose 50 MG; Start 08/20/16 at 09:00 SEPIDEH HAN Aug 20, 2016 12:20
--- NOTE | 2016-08-20 13:17 | PN ---
DATE: 08/20/2016 SUBJECTIVE: The patient is stable, no acute events overnight. The patient is stable on nasal cannu la. OBJECTIVE: VITAL SIGNS: Blood pressure 157/82, respirations 20, pulse 86, temperature 98.9. I'S AND O'S: Reviewed. HEENT: Head is normocephalic. NECK: Supple. HEART: Regular rate. LUNGS: Show diminished breath sounds at the base. Positive rhonchi and crackles. ABDOMEN: Soft, nontender to palpation. No rebound or guarding. EXTREMITIES: Negative for clubbing, cyanosis, no edema. DERMATOLOGIC: No rashes. MUSCULOSKELETAL: No joint effusions. NEUROLOGIC: No change in exam. MEDICATIONS: The patient's medications have been reviewed. LABORATORY DATA: Shows sodium 134, potassium 4.5, chloride 99, BUN 32, creatinine 1.17. White coun t 10.7, hemoglobin 10.3, hematocrit 31.2, platelet count is 251. ASSESSMENT AND PLAN: 1. Nonoliguric acute kidney injury with unknown baseline creatinine. Etiology secondary to acute t ubular necrosis due to septic shock. The patient is status post hemodialysis. The patient has show n excellent renal recovery. At this point, continue current treatment plan, supportive care, renall y dose all meds. 2. Volume overload secondary to acute kidney injury and congestive heart failure. The patient's ch est x-ray continues to show pulmonary congestion. Continue current diuretic regimen. utility repairer eat x-ray. Adjust diuretics as needed. 3. Mineral bone disorder. Continue to monitor calcium and phosphorus levels. 4. Anemia. Continue to monitor hemoglobin and hematocrit levels. 5. Respiratory failure, status post extubation. The patient is currently stable on 3 L nasal cannu la. Continue current medical management. Follow up with pulmonary. 6. Sepsis, status post shock. Continue current antibiotic regimen. 7. Dysphagia. The patient is tolerating p.o.'s, continue. 8. Hypothyroidism. Continue Synthroid. 9. Diabetes, continue Accu-Cheks and insulin sliding scale. 10. History of ETOH abuse. 11. Status post cardiopulmonary arrest. Dictated By: BALDOMERO HARRINGTON DO NR/NTS Conf#: [id number] DID#: [id number]
--- NOTE | 2016-08-20 14:20 | CONS ---
Date/Time of Note Date/Time of Note DATE: 08/20/16 TIME: 14:18 Assessment/Plan Assessment/Plan Additional Assessment/Plan Assessment recommendations; next 1. Patient admitted with septic shock with significant clinical improvement. 2. Generalized deconditioning. 3. Acute renal failure, patient required 2 hemodialysis sessions. 4. Likely underlying sleep apnea. Continue current supportive care. Patient will benefit from transfer to a rehab center. Consultation Date/Type/Reason Admit Date/Time August 01, 2016 at 00:50 Initial Consult Date 08/01/16 Type of Consultation: Pulmonary Referring Provider: NIKOLE KWON MD, [facility] 24 HR Interval Summary Free Text/Dictation Patient condition is stable. Denies any shortness breath, chest pain, wheezing. Denies any abdominal pain, nausea vomiting. Patient is eating well. Still complains of generalized weakness though. More pronounced in lower extremities. General exam; middle-aged male, awake alert currently in no distress. Exam/Review of Systems Vital Signs Vitals Vital Signs Date Time Temp Pulse Resp B/P Pulse Ox O2 Delivery O2 Flow Rate FiO2 08/20/16 13:21 77 20 98 Nasal Cannula 3.0 08/20/16 07:37 98.9 157/82 Intake and Output 08/19/16 08/19/16 08/20/16 15:00 23:00 07:00 Intake Total 800 ml 520 ml Output Total 1200 ml 900 ml Balance -400 ml -380 ml Exam HEENT examination; supple neck, no JVD. No lymphadenopathy. Midline trachea. No thyromegaly. Patient has fair dentition. Chest examination; clear to ulceration. S1-S2 audible, no murmurs. Regular rhythm. Abdomen examination; soft, protuberant. Nontender. Bowel sounds audible. Extremity examination; no peripheral edema. Pulses 1+ bilaterally. CURRICULUM AND ASSESSMENT COORDINATOR exam is; patient is awake alert follows commands with all 4 extremities has significant weakness in both lower extremities. Results Result Diagram: 08/20/1628 08/20/16527 Results 24 hrs Laboratory Tests Test 08/19/16 17:58 08/19/16 22:16 08/20/16 05:28 08/20/16 07:58 Bedside Glucose 74 98 74 White Blood Count 10.7 Red Blood Count 3.10 L Hemoglobin 10.3 L Hematocrit 31.2 L Mean Corpuscular Volume 100.6 Mean Corpuscular Hemoglobin 33.2 H Mean Corpuscular Hemoglobin Concent 33.0 Red Cell Distribution Width 16.5 H Platelet Count 251 # Mean Platelet Volume 12.4 H Neutrophils % 72.1 Lymphocytes % 14.2 L Monocytes % 11.5 H Eosinophils % 1.3 Basophils % 0.3 Nucleated Red Blood Cells % 0.0 Neutrophils # 7.8 H Lymphocytes # 1.5 Monocytes # 1.2 H Eosinophils # 0.1 Basophils # 0.0 Nucleated Red Blood Cells # 0.0 Sodium Level 134 L Potassium Level 4.5 Chloride Level 99 Carbon Dioxide Level 29 Anion Gap 11 Blood Urea Nitrogen 32 H Creatinine 1.17 Glucose Level 73 Calcium Level 9.6 Phosphorus Level 4.5 Magnesium Level 1.8 Test 08/20/16 11:53 Bedside Glucose 115 Medications Medications Current Medications Ondansetron HCl (Zofran Inj) 4 mg Q6H PRN IV NAUSEA AND/OR VOMITING; Start at 03:00 Metoclopramide HCl (Reglan) 10 mg Q6H PRN IV NAUSEA AND/OR VOMITING; Start at 03:00 Acetaminophen (Tylenol Tab) 650 mg Q6H PRN PO PAIN LEVEL 1-3 OR FEVER Last administered on 08/16/16 08:33; Admin Dose 650 MG; Start 08/01/16 at 03:00 Acetaminophen (Tylenol Supp) 650 mg Q4H PRN [place] PAIN LEVEL 1-3 OR FEVER; Start 08/01/16 at 06:30 Miscellaneous Information 1 ea NOTE XX ; Start 08/02/16 at 09:00 Glucose (Glutose) 15 gm Q15M PRN PO DECREASED GLUCOSE; Start 08/02/16 at 09:00 Glucose (Glutose) 22.5 gm Q15M PRN PO DECREASED GLUCOSE; Start 08/02/16 at 09:00 Dextrose (D50w Syringe) 25 ml Q15M PRN IV DECREASED GLUCOSE Last administered on 08/16/16 06:30; Admin Dose 25 ML; Start 08/02/16 at 09:00 Dextrose (D50w Syringe) 50 ml Q15M PRN IV DECREASED GLUCOSE; Start 08/02/16 at 09:00 Glucagon (Glucagen) 1 mg Q15M PRN IM DECREASED GLUCOSE; Start 08/02/16 at 09:00 Glucose (Glutose) 15 gm Q15M PRN BUCCAL DECREASED GLUCOSE; Start 08/02/16 at 09: 00 Calcium Carbonate (Ca Carbonate) 1,250 mg Q12 NGT Last administered on 08:36; Admin Dose 1,250 MG; Start 08/11/16 at 09:00 IV Flush (NS 10 ml) 10 ml PRN PRN IV FLUSH LINE; Start 08/11/16 at 20:00 Hydralazine HCl (Apresoline) 10 mg Q4H PRN IV SBP >160 Last administered on 17:21; Admin Dose 10 MG; Start 08/13/16 at 03:30 Hydromorphone HCl (Dilaudid) 1 mg Q4H PRN IV PAIN Last administered on 20:26; Admin Dose 1 MG; Start 08/16/16 at 08:30 Levothyroxine Sodium (Synthroid) 175 mcg DAILY@06 PO Last administered on 06:46; Admin Dose 175 MCG; Start 08/18/16 at 06:00 Pantoprazole (Protonix Tab) 40 mg DAILY@06 PO Last administered on 08/20/16 06 :46; Admin Dose 40 MG; Start 08/18/16 at 06:00 Enoxaparin Sodium (Lovenox) 110 mg Q12 SC Last administered on 08/20/16 08:47 ; Admin Dose 110 MG; Start 08/17/16 at 21:00 Amlodipine Besylate (Norvasc) 5 mg DAILY PO Last administered on 08/20/16 08: 36; Admin Dose 5 MG; Start 08/20/16 at 09:00 Doxazosin Mesylate (Cardura) 4 mg HS PO Last administered on 08/19/16 22:19; Admin Dose 4 MG; Start 08/19/16 at 21:00 Lorazepam (Ativan) 0.5 mg Q8H PRN PO ANXIETY; Start 08/19/16 at 14:00 Losartan Potassium (Cozaar) 50 mg DAILY PO Last administered on 08/20/16 08:36 ; Admin Dose 50 MG; Start 08/20/16 at 09:00 Furosemide (Lasix) 20 mg DAILY PO ; Start 08/21/16 at 09:00 MIGUEL CHINCHILLA 19, 2017 14:20
--- NOTE | 2016-08-20 16:10 | PN ---
Date/Time of Note Date/Time of Note DATE: 08/20/16 TIME: 16:05 Assessment/Plan VTE Prophylaxis VTE Prophylaxis Intervention: LMWH Lines/Catheters IV Catheter Type (from Nrs): PICC Line Central line still needed: Yes Urinary Cath still in place: Yes Reason Cath still needed: other (indicate) (monitor I&O) Assessment/Plan Chief Complaint/Hosp Course Assessment and plan 1. Status post cardiac arrest with return of spontaneous circulation from severe metabolic acidosis. Improved at this time. Horticultural Farm Manager following. Continue the recommendations. Patient noted with preserved EF. 2. Acute encephalopathy secondary to 1. Improved at present. Will monitor. 3. Acute respiratory failure with suspected ARDS and pulmonary edema. Patient has been off ventilator. Titrate off O2 as tolerated. Continue with teacher ballet recommendations 4. Severe acute renal failure status post HD. Monitor renal function. Stable at present. Continue with duck operator recommendations 5. Status post severe sepsis likely from bilateral pneumonia (likely aspiration ) as well as staph UTI. Off vasopressors. Continue with ID recommendations. No antibiotics on at this time 6. Reported history of alcohol use and abuse. Patient was educated about cessation of this 7. Essential hypertension. Continue antihypertensives and adjust needed 8. Diabetes. Continue insulin regimen. To be adjusted as needed 9. Hypothyroidism. Continue Synthroid Disposition and plan: We will get physical therapy to evaluate the patient. Titrate off O2 as tolerated. [facility] Discussed plan of care with Dr. Markham Problems: Subjective 24 Hr Interval Summary Free Text/Dictation Resting at this time. No apparent distress seen at this time Exam/Review of Systems Vital Signs Vitals Vital Signs Date Time Temp Pulse Resp B/P Pulse Ox O2 Delivery O2 Flow Rate FiO2 08/20/16 13:21 77 20 98 Nasal Cannula 3.0 08/20/16 07:37 98.9 157/82 Intake and Output 08/19/16 08/19/16 08/20/16 15:00 23:00 07:00 Intake Total 800 ml 520 ml Output Total 1200 ml 900 ml Balance -400 ml -380 ml Exam Constitutional: alert, oriented Psych: nl mood/affect Head: normocephalic Neck: No jvd Respiratory: normal air movement Cardiovascular: other (Regular rate) Gastrointestinal: non-tender, soft Musculoskeletal: swelling (Bilateral lower extremity) Neurological: INSURANCE SALES SUPERVISOR II-XII intact, nl mental status, nl speech Results Result Diagram: 08/20/16 0528 08/20/16 0528 Results 24 hrs Laboratory Tests Test 08/19/16 17:58 08/19/16 22:16 08/20/16 05:28 08/20/16 07:58 Bedside Glucose 74 98 74 White Blood Count 10.7 Red Blood Count 3.10 L Hemoglobin 10.3 L Hematocrit 31.2 L Mean Corpuscular Volume 100.6 Mean Corpuscular Hemoglobin 33.2 H Mean Corpuscular Hemoglobin Concent 33.0 Red Cell Distribution Width 16.5 H Platelet Count 251 # Mean Platelet Volume 12.4 H Neutrophils % 72.1 Lymphocytes % 14.2 L Monocytes % 11.5 H Eosinophils % 1.3 Basophils % 0.3 Nucleated Red Blood Cells % 0.0 Neutrophils # 7.8 H Lymphocytes # 1.5 Monocytes # 1.2 H Eosinophils # 0.1 Basophils # 0.0 Nucleated Red Blood Cells # 0.0 Sodium Level 134 L Potassium Level 4.5 Chloride Level 99 Carbon Dioxide Level 29 Anion Gap 11 Blood Urea Nitrogen 32 H Creatinine 1.17 Glucose Level 73 Calcium Level 9.6 Phosphorus Level 4.5 Magnesium Level 1.8 Test 08/20/16 11:53 Bedside Glucose 115 Medications Medications Current Medications Ondansetron HCl (Zofran Inj) 4 mg Q6H PRN IV NAUSEA AND/OR VOMITING; Start at 03:00 Metoclopramide HCl (Reglan) 10 mg Q6H PRN IV NAUSEA AND/OR VOMITING; Start at 03:00 Acetaminophen (Tylenol Tab) 650 mg Q6H PRN PO PAIN LEVEL 1-3 OR FEVER Last administered on 08/16/16t 08:33; Admin Dose 650 MG; Start 08/01/16 at 03:00 Acetaminophen (Tylenol Supp) 650 mg Q4H PRN [place] PAIN LEVEL 1-3 OR FEVER; Start 08/01/16 at 06:30 Miscellaneous Information 1 ea NOTE XX ; Start 08/02/16 at 09:00 Glucose (Glutose) 15 gm Q15M PRN PO DECREASED GLUCOSE; Start 08/02/16 at 09:00 Glucose (Glutose) 22.5 gm Q15M PRN PO DECREASED GLUCOSE; Start 08/02/16 at 09:00 Dextrose (D50w Syringe) 25 ml Q15M PRN IV DECREASED GLUCOSE Last administered on 08/16/16 06:30; Admin Dose 25 ML; Start 08/02/16 at 09:00 Dextrose (D50w Syringe) 50 ml Q15M PRN IV DECREASED GLUCOSE; Start 08/02/16 at 09:00 Glucagon (Glucagen) 1 mg Q15M PRN IM DECREASED GLUCOSE; Start 08/02/16 at 09:00 Glucose (Glutose) 15 gm Q15M PRN BUCCAL DECREASED GLUCOSE; Start 08/02/16 at 09: 00 Calcium Carbonate (Ca Carbonate) 1,250 mg Q12 NGT Last administered on 08:36; Admin Dose 1,250 MG; Start 08/11/16 at 09:00 IV Flush (NS 10 ml) 10 ml PRN PRN IV FLUSH LINE; Start 08/11/16 at 20:00 Hydralazine HCl (Apresoline) 10 mg Q4H PRN IV SBP >160 Last administered on 17:21; Admin Dose 10 MG; Start 08/13/16 at 03:30 Hydromorphone HCl (Dilaudid) 1 mg Q4H PRN IV PAIN Last administered on 20:26; Admin Dose 1 MG; Start 08/16/16 at 08:30 Levothyroxine Sodium (Synthroid) 175 mcg DAILY@06 PO Last administered on 06:46; Admin Dose 175 MCG; Start 08/18/16 at 06:00 Pantoprazole (Protonix Tab) 40 mg DAILY@06 PO Last administered on 08/20/16 06 :46; Admin Dose 40 MG; Start 08/18/16 at 06:00 Enoxaparin Sodium (Lovenox) 110 mg Q12 SC Last administered on 08/20/16 08:47 ; Admin Dose 110 MG; Start 08/17/16 at 21:00 Amlodipine Besylate (Norvasc) 5 mg DAILY PO Last administered on 08/20/16 08: 36; Admin Dose 5 MG; Start 08/20/16 at 09:00 Doxazosin Mesylate (Cardura) 4 mg HS PO Last administered on 08/19/16 22:19; Admin Dose 4 MG; Start 08/19/16 at 21:00 Lorazepam (Ativan) 0.5 mg Q8H PRN PO ANXIETY; Start 08/19/16 at 14:00 Losartan Potassium (Cozaar) 50 mg DAILY PO Last administered on 08/20/16t 08:36 ; Admin Dose 50 MG; Start 08/20/16 at 09:00 Furosemide (Lasix) 20 mg DAILY PO ; Start 08/21/16 at 09:00 TIMOTHY MEADOWS Aug 20, 2016 16:10
[2016-08-20 19:20] VITALS: BP_SYST 132; BP_SYST 166; BP_DIAS 75; BP_DIAS 80; RESP 20
[2016-08-20] MEDS: DOXAZOSIN 4 MG TAB PO SCH (20:37)
[2016-08-21] MEDS: LEVOTHYROXINE 175 MCG TAB PO SCH (06:02)
[2016-08-21] MEDS: PANTOPRAZOLE (EC) 40 MG TAB PO SCH (06:02)
[2016-08-21 06:16] LABS: ADD SCAN DIFF NO
[2016-08-21 06:31] LABS: BASOPHILS % 0.3 % (0.0-2.0); EOSINOPHILS # 0.2 10^3/ul (0.0-0.5); EOSINOPHILS % 1.7 % (0.0-7.0); HEMATOCRIT 27.3 % (42.0-52.0); HEMOGLOBIN 9.2 g/dl (14.0-18.0); LYMPHOCYTES # 1.8 10^3/ul (0.8-2.9); LYMPHOCYTES % 17.4 % (15.0-51.0); MEAN CORPUSCULAR HEMOGLOBIN 33.3 pg (29.0-33.0); MEAN CORPUSCULAR HGB CONC 33.7 g/dl (32.0-37.0); MEAN CORPUSCULAR VOLUME 98.9 fl (82.0-101.0); MEAN PLATELET VOLUME 11.3 fl (7.4-10.4); MONOCYTES % 9.5 % (0.0-11.0); NEUTROPHIL # 7.5 10^3/ul (1.6-7.5); NEUTROPHILS % 70.6 % (39.0-77.0); PLATELET COUNT 230 10^3/UL (140-415); RED BLOOD COUNT 2.76 10^6/ul (4.70-6.10); RED CELL DISTRIBUTION WIDTH 15.9 % (11.5-14.5); WHITE BLOOD COUNT 10.6 10^3/ul (4.8-10.8)
[2016-08-21 06:59] LABS: CALCIUM 9.9 mg/dl (8.4-10.2); CREATININE 1.18 mg/dl (0.61-1.24); MAGNESIUM 1.9 mg/dl (1.7-2.5); PHOSPHORUS 4.2 mg/dl (2.5-4.9); POTASSIUM 3.8 mmol/L (3.5-5.1)
[2016-08-21 07:34] VITALS: BP 131/75; RESP 20
[2016-08-21] MEDS: ALBUTEROL/IPRATROPIUM (NEB) 3 ML AMP HHN SCH ×3 (07:39→20:32)
[2016-08-21] MEDS: INSULIN ASPART [NOVOLOG] 3 ML PEN SC SCH ×4 (08:15→20:22)
[2016-08-21] MEDS: CA CARBONATE (250 MG/ML) 5ML CUP NGT SCH ×2 (08:23→20:09)
[2016-08-21] MEDS: FUROSEMIDE 20 MG TAB PO SCH (08:24)
[2016-08-21] MEDS: AMLODIPINE 5 MG TAB PO SCH (08:25)
[2016-08-21] MEDS: LOSARTAN 50 MG TAB PO SCH (08:25)
[2016-08-21] MEDS: ENOXAPARIN 60 MG/0.6 ML SYG SC SCH ×2 (08:29→20:09)
--- NOTE | 2016-08-21 10:56 | PN ---
DATE: 08/21/2016 SUBJECTIVE: The patient is stable, no acute events overnight. No fevers, chills, nausea, vomiting. No other events noted. OBJECTIVE: VITAL SIGNS: Blood pressure 131/75, respirations 20, pulse 95, temperature 98.7. HEENT: Head is normocephalic. NECK: Supple. HEART: Regular rate. LUNGS: Show diminished breath sounds at the bases. ABDOMEN: Soft, nontender to palpation. No rebound or guarding. EXTREMITIES: Negative for clubbing, cyanosis. No edema. DERMATOLOGIC: No rashes. MUSCULOSKELETAL: No joint effusions. NEUROLOGIC: No change in exam. MEDICATIONS: The patient's medications have been reviewed. LABORATORY DATA: Shows white count 10.6, hemoglobin 9.2, hematocrit 27.3, platelet count is 230. S odium 136, potassium 3.8, chloride 101, BUN 28 creatinine 1.18. ASSESSMENT AND PLAN: 1. Nonoliguric acute kidney injury with unknown baseline creatinine. Etiology secondary to acute t ubular necrosis, septic shock. The patient is status post hemodialysis. The patient has shown exce llent renal recovery. At this point, continue current treatment plan, supportive care, renally dose all meds. 2. Volume overload secondary to acute kidney injury, congestive heart failure. The patient current ly on diuretic therapy, tolerating well. We will continue to monitor. Follow up repeat x-ray. 3. Mineral bone disorder. Continue to monitor calcium and phosphorus levels. 4. Anemia. Continue to monitor hemoglobin and hematocrit levels. 5. Hypoxemic respiratory failure secondary to pneumonia, congestive heart failure. The patient is clinically improving. Continue current medical management. Follow up with pulmonary. 6. Sepsis, status post shock. The patient is completing antibiotic course. 7. Dysphagia, tolerating p.o. 8. Hypothyroidism. Continue Synthroid. 9. Diabetes. Continue Accu-Cheks and insulin sliding scale. 10. History of ETOH abuse. 11. Status post cardiopulmonary arrest. Dictated By: BALDOMERO TOVAR/CHARLES Conf#: [id number] DID#: [id number]
--- NOTE | 2016-08-21 12:01 | CONS ---
Date/Time of Note Date/Time of Note DATE: 08/21/16 TIME: 11:59 Assessment/Plan Assessment/Plan Additional Assessment/Plan Assessment recommendations; 1. Patient admitted for septic shock and respiratory failure with marked interval improvement. 2. CHF. 3. Likely underlying sleep apnea. 4. Generalized deconditioning. 5. Diabetes. 6. Acute renal failure, however patient only required 2 hemodialysis sessions with normalization of serum creatinine. Continue current treatment. Patient may benefit from transfer to a rehab center. Consultation Date/Type/Reason Admit Date/Time August 01, 2016 at 00:50 Initial Consult Date 08/01/16 Type of Consultation: Pulmonary Referring Provider: NIKOLE KWON MD, [facility] 24 HR Interval Summary Free Text/Dictation Patient condition is stable. Denies any shortness of breath, chest pain, wheezing or sputum production. She complains of weakness. Patient however has been getting out of bed. General exam; middle-aged male, morbidly abuse, awake alert currently in no distress. Exam/Review of Systems Vital Signs Vitals Vital Signs Date Time Temp Pulse Resp B/P Pulse Ox O2 Delivery O2 Flow Rate FiO2 08/21/16 07:39 90 22 97 Nasal Cannula 21 08/21/16 07:34 98.7 131/75 08/20/16 20:32 3.0 Intake and Output 08/20/16 08/20/16 08/21/16 15:00 23:00 07:00 Intake Total 1000 ml 900 ml Output Total 900 ml 700 ml Balance 100 ml 200 ml Exam HEENT examination; supple neck, no JVD. No lymphadenopathy. Midline trachea. No thyromegaly. Patient has fair dentition. Chest examination; diminished but clear breath sounds. S1-S2 audible, no murmurs. Regular rhythm. Abdomen examination; soft, protuberant. Nontender. No organomegaly. Bowel sounds audible. Extremity exam; no peripheral edema. Pulses 2+ bilaterally. STERILE PROCESS COORDINATOR exam is; patient is awake alert follows commands moves all 4 extremities but has lower extremity weakness. Results Result Diagram: 08/21/16 0558 08/21/16 0558 Results 24 hrs Laboratory Tests Test 08/20/16 17:21 08/20/16 21:12 08/21/16 05:58 08/21/16 08:22 Bedside Glucose 75 105 77 White Blood Count 10.6 Red Blood Count 2.76 L Hemoglobin 9.2 L Hematocrit 27.3 L Mean Corpuscular Volume 98.9 Mean Corpuscular Hemoglobin 33.3 H Mean Corpuscular Hemoglobin Concent 33.7 Red Cell Distribution Width 15.9 H Platelet Count 230 Mean Platelet Volume 11.3 H Neutrophils % 70.6 Lymphocytes % 17.4 Monocytes % 9.5 Eosinophils % 1.7 Basophils % 0.3 Nucleated Red Blood Cells % 0.0 Neutrophils # 7.5 Lymphocytes # 1.8 Monocytes # 1.0 H Eosinophils # 0.2 Basophils # 0.0 Nucleated Red Blood Cells # 0.0 Sodium Level 136 Potassium Level 3.8 Chloride Level 101 Carbon Dioxide Level 29 Anion Gap 10 Blood Urea Nitrogen 28 H Creatinine 1.18 Glucose Level 82 Calcium Level 9.9 Phosphorus Level 4.2 Magnesium Level 1.9 Medications Medications Current Medications Ondansetron HCl (Zofran Inj) 4 mg Q6H PRN IV NAUSEA AND/OR VOMITING; Start at 03:00 Metoclopramide HCl (Reglan) 10 mg Q6H PRN IV NAUSEA AND/OR VOMITING; Start at 03:00 Acetaminophen (Tylenol Tab) 650 mg Q6H PRN PO PAIN LEVEL 1-3 OR FEVER Last administered on 08/16/16 08:33; Admin Dose 650 MG; Start 08/01/16 at 03:00 Acetaminophen (Tylenol Supp) 650 mg Q4H PRN [place] PAIN LEVEL 1-3 OR FEVER; Start 08/01/16 at 06:30 Miscellaneous Information 1 ea NOTE XX ; Start 08/02/16 at 09:00 Glucose (Glutose) 15 gm Q15M PRN PO DECREASED GLUCOSE; Start 08/02/16 at 09:00 Glucose (Glutose) 22.5 gm Q15M PRN PO DECREASED GLUCOSE; Start 08/02/16 at 09:00 Dextrose (D50w Syringe) 25 ml Q15M PRN IV DECREASED GLUCOSE Last administered on 08/16/16 06:30; Admin Dose 25 ML; Start 08/02/16 at 09:00 Dextrose (D50w Syringe) 50 ml Q15M PRN IV DECREASED GLUCOSE; Start 08/02/16 at 09:00 Glucagon (Glucagen) 1 mg Q15M PRN IM DECREASED GLUCOSE; Start 08/02/16 at 09:00 Glucose (Glutose) 15 gm Q15M PRN BUCCAL DECREASED GLUCOSE; Start 08/02/16 at 09: 00 Calcium Carbonate (Ca Carbonate) 1,250 mg Q12 NGT Last administered on 08:23; Admin Dose 1,250 MG; Start 08/11/16 at 09:00 IV Flush (NS 10 ml) 10 ml PRN PRN IV FLUSH LINE; Start 08/11/16 at 20:00 Hydralazine HCl (Apresoline) 10 mg Q4H PRN IV SBP >160 Last administered on 17:21; Admin Dose 10 MG; Start 08/13/16 at 03:30 Hydromorphone HCl (Dilaudid) 1 mg Q4H PRN IV PAIN Last administered on 20:26; Admin Dose 1 MG; Start 08/16/16 at 08:30 Levothyroxine Sodium (Synthroid) 175 mcg DAILY@06 PO Last administered on 06:02; Admin Dose 175 MCG; Start 08/18/16 at 06:00 Pantoprazole (Protonix Tab) 40 mg DAILY@06 PO Last administered on 08/21/16 06 :02; Admin Dose 40 MG; Start 08/18/16 at 06:00 Enoxaparin Sodium (Lovenox) 110 mg Q12 SC Last administered on 08/21/16 08:29 ; Admin Dose 110 MG; Start 08/17/16 at 21:00 Amlodipine Besylate (Norvasc) 5 mg DAILY PO Last administered on 08/21/16 08: 25; Admin Dose 5 MG; Start 08/20/16 at 09:00 Doxazosin Mesylate (Cardura) 4 mg HS PO Last administered on 08/20/16 20:37; Admin Dose 4 MG; Start 08/19/16 at 21:00 Lorazepam (Ativan) 0.5 mg Q8H PRN PO ANXIETY; Start 08/19/16 at 14:00 Losartan Potassium (Cozaar) 50 mg DAILY PO Last administered on 08/21/16 08:25 ; Admin Dose 50 MG; Start 08/20/16 at 09:00 Furosemide (Lasix) 20 mg DAILY PO Last administered on 08/21/16 08:24; Admin Dose 20 MG; Start 08/21/16 at 09:00 MIGUEL CHINCHILLA Aug 21, 2016 12:01
--- NOTE | 2016-08-21 15:30 | PN ---
Date/Time of Note Date/Time of Note DATE: 08/21/16 TIME: 15:24 Assessment/Plan VTE Prophylaxis VTE Prophylaxis Intervention: LMWH Lines/Catheters IV Catheter Type (from Nrs): PICC Line Central line still needed: Yes Urinary Cath still in place: Yes Reason Cath still needed: other (indicate) (montior I&O) Assessment/Plan Chief Complaint/Hosp Course Assessment and plan 1. Status post cardiac arrest with return of spontaneous circulation from severe metabolic acidosis. Improved at this time. Wedding Designer following. Continue the recommendations. Patient noted with preserved EF. 2. Acute encephalopathy secondary to 1. Improved at present. Will monitor. 3. Acute respiratory failure with suspected ARDS and pulmonary edema. Patient has been off ventilator. Continue to titrate down O2 as tolerated. Continue with string winding machine operator recommendations 4. Severe acute renal failure status post HD. Monitor renal function. Stable at present. Continue with activity aide recommendations 5. Status post severe sepsis likely from bilateral pneumonia (likely aspiration ) as well as staph UTI. Off vasopressors. Continue with ID recommendations. No antibiotics on at this time 6. Reported history of alcohol use and abuse. Patient was educated about cessation of this 7. Essential hypertension. Continue antihypertensives and adjust needed 8. Diabetes. Continue insulin regimen. To be adjusted as needed 9. Hypothyroidism. Continue Synthroid Disposition and plan: Continue with physical therapy. Awaiting bed availability at [place] facility Discussed plan of care with Dr. Markham Problems: Subjective 24 Hr Interval Summary Free Text/Dictation Comfortable at present. No apparent distress. No specific complaints Exam/Review of Systems Vital Signs Vitals Vital Signs Date Time Temp Pulse Resp B/P Pulse Ox O2 Delivery O2 Flow Rate FiO2 08/21/16 13:36 3.0 08/21/16 13:34 88 20 98 Nasal Cannula 28 08/21/16 07:34 98.7 131/75 Intake and Output 08/20/16 08/20/16 08/21/16 15:00 23:00 07:00 Intake Total 1000 ml 900 ml Output Total 900 ml 700 ml Balance 100 ml 200 ml Exam Constitutional: alert, oriented, comfortable at present Psych: nl mood/affect Head: normocephalic Neck: No jvd Respiratory: normal air movement Cardiovascular: other (Regular rate) Gastrointestinal: non-tender, soft Musculoskeletal: swelling (Bilateral lower extremity) Neurological: WOMEN NURSE II-XII intact, nl mental status, nl speech Results Result Diagram: 08/21/16 0558 08/21/16 0558 Results 24 hrs Laboratory Tests Test 08/20/16 17:21 08/20/16 21:12 08/21/16 05:58 08/21/16 08:22 Bedside Glucose 75 105 77 White Blood Count 10.6 Red Blood Count 2.76 L Hemoglobin 9.2 L Hematocrit 27.3 L Mean Corpuscular Volume 98.9 Mean Corpuscular Hemoglobin 33.3 H Mean Corpuscular Hemoglobin Concent 33.7 Red Cell Distribution Width 15.9 H Platelet Count 230 Mean Platelet Volume 11.3 H Neutrophils % 70.6 Lymphocytes % 17.4 Monocytes % 9.5 Eosinophils % 1.7 Basophils % 0.3 Nucleated Red Blood Cells % 0.0 Neutrophils # 7.5 Lymphocytes # 1.8 Monocytes # 1.0 H Eosinophils # 0.2 Basophils # 0.0 Nucleated Red Blood Cells # 0.0 Sodium Level 136 Potassium Level 3.8 Chloride Level 101 Carbon Dioxide Level 29 Anion Gap 10 Blood Urea Nitrogen 28 H Creatinine 1.18 Glucose Level 82 Calcium Level 9.9 Phosphorus Level 4.2 Magnesium Level 1.9 Test 08/21/16 11:59 Bedside Glucose 111 Medications Medications Current Medications Ondansetron HCl (Zofran Inj) 4 mg Q6H PRN IV NAUSEA AND/OR VOMITING; Start at 03:00 Metoclopramide HCl (Reglan) 10 mg Q6H PRN IV NAUSEA AND/OR VOMITING; Start at 03:00 Acetaminophen (Tylenol Tab) 650 mg Q6H PRN PO PAIN LEVEL 1-3 OR FEVER Last administered on 08/16/16t 08:33; Admin Dose 650 MG; Start 08/01/16 at 03:00 Acetaminophen (Tylenol Supp) 650 mg Q4H PRN [place] PAIN LEVEL 1-3 OR FEVER; Start 08/01/16 at 06:30 Miscellaneous Information 1 ea NOTE XX ; Start 08/02/16 at 09:00 Glucose (Glutose) 15 gm Q15M PRN PO DECREASED GLUCOSE; Start 08/02/16 at 09:00 Glucose (Glutose) 22.5 gm Q15M PRN PO DECREASED GLUCOSE; Start 08/02/16 at 09:00 Dextrose (D50w Syringe) 25 ml Q15M PRN IV DECREASED GLUCOSE Last administered on 08/16/16 06:30; Admin Dose 25 ML; Start 08/02/16 at 09:00 Dextrose (D50w Syringe) 50 ml Q15M PRN IV DECREASED GLUCOSE; Start 08/02/16 at 09:00 Glucagon (Glucagen) 1 mg Q15M PRN IM DECREASED GLUCOSE; Start 08/02/16 at 09:00 Glucose (Glutose) 15 gm Q15M PRN BUCCAL DECREASED GLUCOSE; Start 08/02/16 at 09: 00 Calcium Carbonate (Ca Carbonate) 1,250 mg Q12 NGT Last administered on 08:23; Admin Dose 1,250 MG; Start 08/11/16 at 09:00 IV Flush (NS 10 ml) 10 ml PRN PRN IV FLUSH LINE; Start 08/11/16 at 20:00 Hydralazine HCl (Apresoline) 10 mg Q4H PRN IV SBP >160 Last administered on 17:21; Admin Dose 10 MG; Start 08/13/16 at 03:30 Hydromorphone HCl (Dilaudid) 1 mg Q4H PRN IV PAIN Last administered on 20:26; Admin Dose 1 MG; Start 08/16/16 at 08:30 Levothyroxine Sodium (Synthroid) 175 mcg DAILY@06 PO Last administered on 06:02; Admin Dose 175 MCG; Start 08/18/16 at 06:00 Pantoprazole (Protonix Tab) 40 mg DAILY@06 PO Last administered on 08/21/16 06 :02; Admin Dose 40 MG; Start 08/18/16 at 06:00 Enoxaparin Sodium (Lovenox) 110 mg Q12 SC Last administered on 08/21/16 08:29 ; Admin Dose 110 MG; Start 08/17/16 at 21:00 Amlodipine Besylate (Norvasc) 5 mg DAILY PO Last administered on 08/21/16 08: 25; Admin Dose 5 MG; Start 08/20/16 at 09:00 Doxazosin Mesylate (Cardura) 4 mg HS PO Last administered on 08/20/16 20:37; Admin Dose 4 MG; Start 08/19/16 at 21:00 Lorazepam (Ativan) 0.5 mg Q8H PRN PO ANXIETY; Start 08/19/16 at 14:00 Losartan Potassium (Cozaar) 50 mg DAILY PO Last administered on 08/21/16 08:25 ; Admin Dose 50 MG; Start 08/20/16 at 09:00 Furosemide (Lasix) 20 mg DAILY PO Last administered on 08/21/16 08:24; Admin Dose 20 MG; Start 08/21/16 at 09:00 TIMOTHY MEADOWS Aug 21, 2016 15:30
--- NOTE | 2016-08-21 19:20 | CONS ---
Date/Time of Note Date/Time of Note DATE: 08/21/16 TIME: : Assessment/Plan Assessment/Plan Chief Complaint/Hosp Course Status post PEA cardiac arrest: secondary to severe metabolic acidosis. No VT/ VF or EKG changes to suggest primary cardiac etiology. Trops ok, EF preserved. Consider stress testing as outpatient Status post acute respiratory failure: intubated during code. Likely ARDS and some component of fluid overload. Now extubated 08/15 Acute diastolic heart failure: improved with diuresis Severe metabolic acidosis: likely was the culprit for the arrest. Resolved Status post septic shock: Off pressors Acute renal failure: unclear etiology. Was on intermittent HD. Good UOP. HD stopped. Now resolved Hypoglycemia Hypothyroidism Diarrhea/n/v/colitis HTN -continue amlodipine 5mg daily and losartan 50mg daily -continue Lasix 20mg PO daily Problems: Consultation Date/Type/Reason Admit Date/Time August 01, 2016 at 00:50 Initial Consult Date 08/01/16 Type of Consultation: Cardiology 24 HR Interval Summary Free Text/Dictation No acute events. Denies chest pain or shortness of breath. Detailed Summary Additional Comments 14 point review of systems without changes. Exam/Review of Systems Vital Signs Vitals Vital Signs Date Time Temp Pulse Resp B/P Pulse Ox O2 Delivery O2 Flow Rate FiO2 08/21/16 13:36 3.0 08/21/16 13:34 88 20 98 Nasal Cannula 28 08/21/16 07:34 98.7 131/75 Intake and Output 08/20/16 08/20/16 08/21/16 15:00 23:00 07:00 Intake Total 1000 ml 900 ml Output Total 900 ml 700 ml Balance 100 ml 200 ml Exam Constitutional: alert, oriented Psych: no complaints Head: atraumatic, normocephalic Neck: No jvd Respiratory: clear to auscultation, No crackles/rales Cardiovascular: regular rate and rhythm, No edema Gastrointestinal: non-tender, soft Neurological: nl mental status, nl speech Results Result Diagram: 08/21/16 0558 08/21/16 0558 Results 24 hrs Laboratory Tests Test 08/20/16 21:12 08/21/16 05:58 08/21/16 08:22 08/21/16 11:59 Bedside Glucose 105 77 111 White Blood Count 10.6 Red Blood Count 2.76 L Hemoglobin 9.2 L Hematocrit 27.3 L Mean Corpuscular Volume 98.9 Mean Corpuscular Hemoglobin 33.3 H Mean Corpuscular Hemoglobin Concent 33.7 Red Cell Distribution Width 15.9 H Platelet Count 230 Mean Platelet Volume 11.3 H Neutrophils % 70.6 Lymphocytes % 17.4 Monocytes % 9.5 Eosinophils % 1.7 Basophils % 0.3 Nucleated Red Blood Cells % 0.0 Neutrophils # 7.5 Lymphocytes # 1.8 Monocytes # 1.0 H Eosinophils # 0.2 Basophils # 0.0 Nucleated Red Blood Cells # 0.0 Sodium Level 136 Potassium Level 3.8 Chloride Level 101 Carbon Dioxide Level 29 Anion Gap 10 Blood Urea Nitrogen 28 H Creatinine 1.18 Glucose Level 82 Calcium Level 9.9 Phosphorus Level 4.2 Magnesium Level 1.9 Test 08/21/16 17:22 Bedside Glucose 90 Medications Medications Current Medications Ondansetron HCl (Zofran Inj) 4 mg Q6H PRN IV NAUSEA AND/OR VOMITING; Start at 03:00 Metoclopramide HCl (Reglan) 10 mg Q6H PRN IV NAUSEA AND/OR VOMITING; Start at 03:00 Acetaminophen (Tylenol Tab) 650 mg Q6H PRN PO PAIN LEVEL 1-3 OR FEVER Last administered on 08/16/16 08:33; Admin Dose 650 MG; Start 08/01/16 at 03:00 Acetaminophen (Tylenol Supp) 650 mg Q4H PRN [place] PAIN LEVEL 1-3 OR FEVER; Start 08/01/16 at 06:30 Miscellaneous Information 1 ea NOTE XX ; Start 08/02/16 at 09:00 Glucose (Glutose) 15 gm Q15M PRN PO DECREASED GLUCOSE; Start 08/02/16 at 09:00 Glucose (Glutose) 22.5 gm Q15M PRN PO DECREASED GLUCOSE; Start 08/02/16 at 09:00 Dextrose (D50w Syringe) 25 ml Q15M PRN IV DECREASED GLUCOSE Last administered on 08/16/16 06:30; Admin Dose 25 ML; Start 08/02/16 at 09:00 Dextrose (D50w Syringe) 50 ml Q15M PRN IV DECREASED GLUCOSE; Start 08/02/16 at 09:00 Glucagon (Glucagen) 1 mg Q15M PRN IM DECREASED GLUCOSE; Start 08/02/16 at 09:00 Glucose (Glutose) 15 gm Q15M PRN BUCCAL DECREASED GLUCOSE; Start 08/02/16 at 09: 00 Calcium Carbonate (Ca Carbonate) 1,250 mg Q12 NGT Last administered on 08:23; Admin Dose 1,250 MG; Start 08/11/16 at 09:00 IV Flush (NS 10 ml) 10 ml PRN PRN IV FLUSH LINE; Start 08/11/16 at 20:00 Hydralazine HCl (Apresoline) 10 mg Q4H PRN IV SBP >160 Last administered on 17:21; Admin Dose 10 MG; Start 08/13/16 at 03:30 Hydromorphone HCl (Dilaudid) 1 mg Q4H PRN IV PAIN Last administered on 20:26; Admin Dose 1 MG; Start 08/16/16 at 08:30 Levothyroxine Sodium (Synthroid) 175 mcg DAILY@06 PO Last administered on 06:02; Admin Dose 175 MCG; Start 08/18/16 at 06:00 Pantoprazole (Protonix Tab) 40 mg DAILY@06 PO Last administered on 08/21/16 06 :02; Admin Dose 40 MG; Start 08/18/16 at 06:00 Enoxaparin Sodium (Lovenox) 110 mg Q12 SC Last administered on 08/21/16 08:29 ; Admin Dose 110 MG; Start 08/17/16 at 21:00 Amlodipine Besylate (Norvasc) 5 mg DAILY PO Last administered on 08/21/16 08: 25; Admin Dose 5 MG; Start 08/20/16 at 09:00 Doxazosin Mesylate (Cardura) 4 mg HS PO Last administered on 08/20/16 20:37; Admin Dose 4 MG; Start 08/19/16 at 21:00 Lorazepam (Ativan) 0.5 mg Q8H PRN PO ANXIETY; Start 08/19/16 at 14:00 Losartan Potassium (Cozaar) 50 mg DAILY PO Last administered on 08/21/16 08:25 ; Admin Dose 50 MG; Start 08/20/16 at 09:00 Furosemide (Lasix) 20 mg DAILY PO Last administered on 08/21/16 08:24; Admin Dose 20 MG; Start 08/21/16 at 09:00 SHEYLA HDZ MD Aug 21, 2016 19:20
[2016-08-21 19:43] VITALS: BP 169/77; RESP 18
[2016-08-21] MEDS: DOXAZOSIN 4 MG TAB PO SCH (20:10)
[2016-08-21 21:15] VITALS: BP 141/75; PULSE 83
[2016-08-22 03:30] VITALS: BP 128/68; PULSE 96
[2016-08-22] MEDS: PANTOPRAZOLE (EC) 40 MG TAB PO SCH (06:02)
[2016-08-22] MEDS: LEVOTHYROXINE 175 MCG TAB PO SCH (06:02)
[2016-08-22 06:39] LABS: CALCIUM 9.7 mg/dl (8.4-10.2); CREATININE 1.12 mg/dl (0.61-1.24); MAGNESIUM 1.9 mg/dl (1.7-2.5); PHOSPHORUS 4.4 mg/dl (2.5-4.9)
[2016-08-22] MEDS: ALBUTEROL/IPRATROPIUM (NEB) 3 ML AMP HHN SCH ×3 (08:01→21:48)
[2016-08-22] MEDS: INSULIN ASPART [NOVOLOG] 3 ML PEN SC SCH ×4 (08:10→20:33)
[2016-08-22 08:20] VITALS: BP 132/64; RESP 18
[2016-08-22] MEDS: LOSARTAN 50 MG TAB PO SCH (09:19)
[2016-08-22] MEDS: CA CARBONATE (250 MG/ML) 5ML CUP NGT SCH ×2 (09:19→20:32)
[2016-08-22] MEDS: AMLODIPINE 5 MG TAB PO SCH (09:20)
[2016-08-22] MEDS: FUROSEMIDE 20 MG TAB PO SCH (09:20)
[2016-08-22] MEDS: ENOXAPARIN 60 MG/0.6 ML SYG SC SCH ×2 (09:33→20:42)
--- NOTE | 2016-08-22 10:05 | PN ---
DATE: 08/22/2016 SUBJECTIVE: The patient is stable, no acute events overnight. No fevers, chills, nausea, vomiting. OBJECTIVE: VITAL SIGNS: Blood pressure 132/64, respiration 18, pulse 87, temperature 98.5. I's AND O'S: The patient had 2 liters in, 1.9 liters out. HEENT: Head is normocephalic. NECK: Supple. HEART: Regular rate. LUNGS: Show diminished breath sounds at the base. ABDOMEN: Soft, nontender to palpation. No rebound or guarding. EXTREMITIES: Negative for clubbing, cyanosis, no edema. DERMATOLOGIC: No rashes. MUSCULOSKELETAL: No joint effusions. NEUROLOGIC: No change in exam. MEDICATIONS: The patient's medications have been reviewed. LABORATORY DATA: Shows a sodium 137, potassium 4.0, BUN 26, creatinine 1.12. ASSESSMENT AND PLAN: 1. Nonoliguric acute kidney injury with unknown baseline creatinine. Etiology secondary to acute t ubular necrosis. the patient is status post hemodialysis. The patient has had excellent renal michael very. At this point, continue current treatment plan, supportive care, renally dose all meds. 2. Volume overload secondary to acute kidney injury, congestive heart failure. The patient is clin ically improving. Continue current diuretic regimen. Follow up with Cardiology for recommendations . 3. Mineral bone disorder. Continue to monitor calcium and phosphorus levels. 4. Anemia. Continue to monitor hemoglobin and hematocrit levels. 5. Hypoxemic respiratory failure secondary to pneumonia, congestive heart failure. The patient is clinically improving. Continue current medical management. 6. Sepsis, status post shock. The patient is completing antibiotic course. 7. Hypothyroidism. Continue Synthroid. 8. Diabetes. Continue Accu-Cheks, insulin sliding scale. 9. History of ETOH abuse. 10. Status post cardiopulmonary arrest. Dictated By: BALDOMERO TOVAR/CHARLES Conf#: [id number] DID#: [id number]
--- NOTE | 2016-08-22 15:19 | PN ---
Date/Time of Note Date/Time of Note DATE: 08/22/16 TIME: 15:14 Assessment/Plan VTE Prophylaxis VTE Prophylaxis Intervention: LMWH Lines/Catheters IV [facility] Type (from [facility] Saline Lock Urinary Cath still in place: Yes Reason Cath still needed: other (indicate) (montior I&O) Assessment/Plan Chief Complaint/Hosp Course Assessment and plan 1. Status post cardiac arrest with return of spontaneous circulation from severe metabolic acidosis. Improved at this time. Mat Maker following. Continue the recommendations. Patient noted with preserved EF. 2. Acute encephalopathy secondary to 1. Improved at present. Will monitor. 3. Acute respiratory failure with suspected ARDS and pulmonary edema. Patient has been off ventilator. Continue to titrate down O2 as tolerated. Continue with visual aid expert recommendations. stable 4. Severe acute renal failure status post HD. Monitor renal function. Stable at present. Continue with jointer machine operator recommendations 5. Status post severe sepsis likely from bilateral pneumonia (likely aspiration ) as well as staph UTI. Off vasopressors. Continue with ID recommendations. No antibiotics on at this time 6. Reported history of alcohol use and abuse. Patient was educated about cessation of this 7. Essential hypertension. Continue antihypertensives and adjust needed 8. Diabetes. Continue insulin regimen. To be adjusted as needed 9. Hypothyroidism. Continue Synthroid Disposition and plan: Continue with physical therapy. Awaiting bed availability at [place] facility. titrate off o2 Discussed plan of care with Dr. Markham Problems: Subjective 24 Hr Interval Summary Free Text/Dictation No apparent distress seen at this time. Reports better breathing. Physical therapy at bedside Exam/Review of Systems Vital Signs Vitals Vital Signs Date Time Temp Pulse Resp B/P Pulse Ox O2 Delivery O2 Flow Rate FiO2 08/22/16 08:20 98.5 87 18 132/64 95 08/22/16 08:04 3.0 08/22/16 08:02 Nasal Cannula 32 Intake and Output 08/21/16 08/21/16 08/22/16 15:00 23:00 07:00 Intake Total 1440 ml 600 ml Output Total 1050 ml 850 ml Balance 390 ml -250 ml Exam Constitutional: alert, oriented Psych: nl mood/affect Head: normocephalic Eyes: nl conjunctiva Neck: supple, No jvd Respiratory: diminished breath sounds (Minimal bilateral lower lung bases) Cardiovascular: other (regular rate) Gastrointestinal: soft Extremities: edema Neurological: CHAIR PAD MAKER II-XII intact, nl mental status, nl speech Results Result Diagram: 08/21/16 0558 08/22/16 0519 Results 24 hrs Laboratory Tests Test 08/21/16 17:22 08/21/16 20:21 08/22/16 05:19 08/22/16 08:09 Bedside Glucose 90 114 78 Sodium Level 137 Potassium Level 4.0 Chloride Level 102 Carbon Dioxide Level 28 Anion Gap 11 Blood Urea Nitrogen 26 H Creatinine 1.12 Glucose Level 79 Calcium Level 9.7 Phosphorus Level 4.4 Magnesium Level 1.9 Test 08/22/16 12:12 Bedside Glucose 113 Medications Medications Current Medications Ondansetron HCl (Zofran Inj) 4 mg Q6H PRN IV NAUSEA AND/OR VOMITING; Start at 03:00 Metoclopramide HCl (Reglan) 10 mg Q6H PRN IV NAUSEA AND/OR VOMITING; Start at 03:00 Acetaminophen (Tylenol Tab) 650 mg Q6H PRN PO PAIN LEVEL 1-3 OR FEVER Last administered on 08/16/16 08:33; Admin Dose 650 MG; Start 08/01/16 at 03:00 Acetaminophen (Tylenol Supp) 650 mg Q4H PRN [place] PAIN LEVEL 1-3 OR FEVER; Start 08/01/16 at 06:30 Miscellaneous Information 1 ea NOTE XX ; Start 08/02/16 at 09:00 Glucose (Glutose) 15 gm Q15M PRN PO DECREASED GLUCOSE; Start 08/02/16 at 09:00 Glucose (Glutose) 22.5 gm Q15M PRN PO DECREASED GLUCOSE; Start 08/02/16 at 09:00 Dextrose (D50w Syringe) 25 ml Q15M PRN IV DECREASED GLUCOSE Last administered on 08/16/16 06:30; Admin Dose 25 ML; Start 08/02/16 at 09:00 Dextrose (D50w Syringe) 50 ml Q15M PRN IV DECREASED GLUCOSE; Start 08/02/16 at 09:00 Glucagon (Glucagen) 1 mg Q15M PRN IM DECREASED GLUCOSE; Start 08/02/16 at 09:00 Glucose (Glutose) 15 gm Q15M PRN BUCCAL DECREASED GLUCOSE; Start 08/02/16 at 09: 00 Calcium Carbonate (Ca Carbonate) 1,250 mg Q12 NGT Last administered on 09:19; Admin Dose 1,250 MG; Start 08/11/16 at 09:00 IV Flush (NS 10 ml) 10 ml PRN PRN IV FLUSH LINE; Start 08/11/16 at 20:00 Hydralazine HCl (Apresoline) 10 mg Q4H PRN IV SBP >160 Last administered on 17:21; Admin Dose 10 MG; Start 08/13/16 at 03:30 Hydromorphone HCl (Dilaudid) 1 mg Q4H PRN IV PAIN Last administered on 20:26; Admin Dose 1 MG; Start 08/16/16 at 08:30 Levothyroxine Sodium (Synthroid) 175 mcg DAILY@06 PO Last administered on 06:02; Admin Dose 175 MCG; Start 08/18/16 at 06:00 Pantoprazole (Protonix Tab) 40 mg DAILY@06 PO Last administered on 08/22/16 06 :02; Admin Dose 40 MG; Start 08/18/16 at 06:00 Enoxaparin Sodium (Lovenox) 110 mg Q12 SC Last administered on 08/22/16 09:33 ; Admin Dose 110 MG; Start 08/17/16 at 21:00 Amlodipine Besylate (Norvasc) 5 mg DAILY PO Last administered on 08/22/16 09: 20; Admin Dose 5 MG; Start 08/20/16 at 09:00 Doxazosin Mesylate (Cardura) 4 mg HS PO Last administered on 08/21/16 20:10; Admin Dose 4 MG; Start 08/19/16 at 21:00 Lorazepam (Ativan) 0.5 mg Q8H PRN PO ANXIETY; Start 08/19/16 at 14:00 Losartan Potassium (Cozaar) 50 mg DAILY PO Last administered on 08/22/16 09:19 ; Admin Dose 50 MG; Start 08/20/16 at 09:00 Furosemide (Lasix) 20 mg DAILY PO Last administered on 08/22/16 09:20; Admin Dose 20 MG; Start 08/21/16 at 09:00 TIMOTHY MEADOWS Aug 22, 2016 15:19
[2016-08-22 19:53] VITALS: BP 169/82; RESP 18
[2016-08-22] MEDS: DOXAZOSIN 4 MG TAB PO SCH (20:32)
[2016-08-22 20:59] VITALS: BP 122/65; PULSE 89
[2016-08-23] MEDS: LEVOTHYROXINE 175 MCG TAB PO SCH (05:57)
[2016-08-23] MEDS: PANTOPRAZOLE (EC) 40 MG TAB PO SCH (05:57)
[2016-08-23] MEDS: ALBUTEROL/IPRATROPIUM (NEB) 3 ML AMP HHN SCH ×3 (07:55→19:31)
[2016-08-23] MEDS: INSULIN ASPART [NOVOLOG] 3 ML PEN SC SCH ×4 (08:03→21:00)
[2016-08-23 08:11] VITALS: BP 156/84; RESP 20
[2016-08-23] MEDS: CA CARBONATE (250 MG/ML) 5ML CUP NGT SCH ×2 (08:53→20:26)
[2016-08-23] MEDS: AMLODIPINE 5 MG TAB PO SCH ×2 (08:54→20:27)
[2016-08-23] MEDS: FUROSEMIDE 20 MG TAB PO SCH (08:54)
[2016-08-23] MEDS: LOSARTAN 50 MG TAB PO SCH (08:54)
[2016-08-23] MEDS: ENOXAPARIN 60 MG/0.6 ML SYG SC SCH ×2 (09:23→20:30)
--- NOTE | 2016-08-23 09:48 | PN ---
DATE: 08/23/2016 SUBJECTIVE: The patient is stable, no acute events overnight. No fevers, chills, nausea, vomiting. OBJECTIVE: VITAL SIGNS: Blood pressure is 156/84, respirations 20, pulse 99, temperature is 98.8. HEENT: Head is normocephalic. NECK: Supple. HEART: Regular rate. LUNGS: Show diminished breath sounds at the bases. ABDOMEN: Soft, nontender to palpation. No rebound or guarding. EXTREMITIES: Negative for clubbing, cyanosis. No edema. DERMATOLOGIC: No rashes. MUSCULOSKELETAL: No joint effusions. NEUROLOGIC: No change in exam. MEDICATIONS: The patient's medications have been reviewed. LABORATORY DATA: Has been reviewed. No new labs. ASSESSMENT AND PLAN: 1. Nonoliguric acute kidney injury with unknown baseline creatinine. Etiology is secondary to acut e tubular necrosis. The patient is status post hemodialysis. The patient has had excellent renal r ecovery. At this point, continue current treatment plan, supportive care, renally dose all meds. 2. Volume overload secondary to acute kidney injury, congestive heart failure. The patient is clin ically improving. Continue current medical management. 3. Mineral bone disorder. Continue to monitor calcium and phosphorus levels. 4. Anemia. Continue to monitor hemoglobin and hematocrit levels. 5. Hypoxemic respiratory failure secondary to pneumonia and congestive heart failure, clinically im proving. Continue current treatment plan. 6. Sepsis, status post shock. The patient completing antibiotic course. 7. Hypothyroidism. Continue Synthroid. 8. Diabetes. Continue Accu-Cheks and insulin sliding scale. 9. History of ETOH abuse. 10. Status post cardiopulmonary arrest. Dictated By: BALDOMERO TOVAR/CHARLES Conf#: [id number] DID#: [id number]
--- NOTE | 2016-08-23 14:51 | CONS ---
Date/Time of Note Date/Time of Note DATE: 08/23/16 TIME: 14:51 Assessment/Plan Assessment/Plan Chief Complaint/Hosp Course Status post PEA cardiac arrest: secondary to severe metabolic acidosis. No VT/ VF or EKG changes to suggest primary cardiac etiology. Trops ok, EF preserved. Consider stress testing as outpatient Status post acute respiratory failure: intubated during code. Likely ARDS and some component of fluid overload. Now extubated 08/15 Acute diastolic heart failure: improved with diuresis Severe metabolic acidosis: likely was the culprit for the arrest. Resolved Status post septic shock: Off pressors Acute renal failure: unclear etiology. Was on intermittent HD. Good UOP. HD stopped. Now resolved Hypoglycemia Hypothyroidism Diarrhea/n/v/colitis HTN -increase amlodipine to 5mg BID -continue losartan 50mg daily -continue Lasix 20mg PO daily Problems: Consultation Date/Type/Reason Admit Date/Time August 01, 2016 at 00:50 Initial Consult Date 08/01/16 Type of Consultation: Cardiology 24 HR Interval Summary Free Text/Dictation No acute events. Blood pressures elevated. Detailed Summary Additional Comments 14 point review of systems without changes. Exam/Review of Systems Vital Signs Vitals Vital Signs Date Time Temp Pulse Resp B/P Pulse Ox O2 Delivery O2 Flow Rate FiO2 08/23/16 14:26 63 18 96 Nasal Cannula 3.0 08/23/16 08:11 98.8 156/84 08/22/16 21:49 32 Intake and Output 08/22/16 08/22/16 08/23/16 15:00 23:00 07:00 Intake Total 1080 ml Output Total 950 ml Balance 130 ml Exam Constitutional: alert, oriented Psych: no complaints Head: atraumatic, normocephalic Neck: No jvd Respiratory: clear to auscultation, No crackles/rales Cardiovascular: regular rate and rhythm, No edema Gastrointestinal: non-tender, soft Neurological: nl mental status, nl speech Results Result Diagram: 08/21/16 0558 08/22/16 0519 Results 24 hrs Laboratory Tests Test 08/22/16 17:32 08/22/16 20:29 08/23/16 08:01 08/23/16 11:57 Bedside Glucose 98 121 81 95 Medications Medications Current Medications Ondansetron HCl (Zofran Inj) 4 mg Q6H PRN IV NAUSEA AND/OR VOMITING; Start 5/ 31/17 at 03:00 Metoclopramide HCl (Reglan) 10 mg Q6H PRN IV NAUSEA AND/OR VOMITING; Start at 03:00 Acetaminophen (Tylenol Tab) 650 mg Q6H PRN PO PAIN LEVEL 1-3 OR FEVER Last administered on 08/16/16 08:33; Admin Dose 650 MG; Start 08/01/16 at 03:00 Acetaminophen (Tylenol Supp) 650 mg Q4H PRN IN PAIN LEVEL 1-3 OR FEVER; Start 08/01/16 at 06:30 Miscellaneous Information 1 ea NOTE XX ; Start 08/02/16 at 09:00 Glucose (Glutose) 15 gm Q15M PRN PO DECREASED GLUCOSE; Start 08/02/16 at 09:00 Glucose (Glutose) 22.5 gm Q15M PRN PO DECREASED GLUCOSE; Start 08/02/16 at 09:00 Dextrose (D50w Syringe) 25 ml Q15M PRN IV DECREASED GLUCOSE Last administered on 08/16/16 06:30; Admin Dose 25 ML; Start 08/02/16 at 09:00 Dextrose (D50w Syringe) 50 ml Q15M PRN IV DECREASED GLUCOSE; Start 08/02/16 at 09:00 Glucagon (Glucagen) 1 mg Q15M PRN IM DECREASED GLUCOSE; Start 08/02/16 at 09:00 Glucose (Glutose) 15 gm Q15M PRN BUCCAL DECREASED GLUCOSE; Start 08/02/16 at 09: 00 Calcium Carbonate (Ca Carbonate) 1,250 mg Q12 NGT Last administered on 08:53; Admin Dose 1,250 MG; Start 08/11/16 at 09:00 IV Flush (NS 10 ml) 10 ml PRN PRN IV FLUSH LINE; Start 08/11/16 at 20:00 Hydralazine HCl (Apresoline) 10 mg Q4H PRN IV SBP >160 Last administered on 17:21; Admin Dose 10 MG; Start 08/13/16 at 03:30 Hydromorphone HCl (Dilaudid) 1 mg Q4H PRN IV PAIN Last administered on 20:26; Admin Dose 1 MG; Start 08/16/16 at 08:30 Levothyroxine Sodium (Synthroid) 175 mcg DAILY@06 PO Last administered on 05:57; Admin Dose 175 MCG; Start 08/18/16 at 06:00 Pantoprazole (Protonix Tab) 40 mg DAILY@06 PO Last administered on 08/23/16 05 :57; Admin Dose 40 MG; Start 08/18/16 at 06:00 Enoxaparin Sodium (Lovenox) 110 mg Q12 SC Last administered on 08/23/16 09:23 ; Admin Dose 110 MG; Start 08/17/16 at 21:00 Amlodipine Besylate (Norvasc) 5 mg DAILY PO Last administered on 08/23/16 08: 54; Admin Dose 5 MG; Start 08/20/16 at 09:00 Doxazosin Mesylate (Cardura) 4 mg HS PO Last administered on 08/22/16 20:32; Admin Dose 4 MG; Start 08/19/16 at 21:00 Lorazepam (Ativan) 0.5 mg Q8H PRN PO ANXIETY; Start 08/19/16 at 14:00 Losartan Potassium (Cozaar) 50 mg DAILY PO Last administered on 08/23/16 08:54 ; Admin Dose 50 MG; Start 08/20/16 at 09:00 Furosemide (Lasix) 20 mg DAILY PO Last administered on 08/23/16 08:54; Admin Dose 20 MG; Start 08/21/16 at 09:00 SHEYLA HDZ MD Aug 23, 2016 14:51
--- NOTE | 2016-08-23 16:23 | PN ---
Date/Time of Note Date/Time of Note DATE: 08/23/16 TIME: 16:22 Assessment/Plan VTE Prophylaxis VTE Prophylaxis Intervention: LMWH Lines/Catheters IV Catheter Type (from [facility]): Saline Lock Urinary Cath still in place: Yes Reason Cath still needed: other (indicate) (montior I&O) Assessment/Plan Chief Complaint/Hosp Course Assessment and plan 1. Status post cardiac arrest with return of spontaneous circulation from severe metabolic acidosis. Improved at this time. Pet Counselor following. Continue the recommendations. Patient noted with preserved EF. Stable. 2. Acute encephalopathy secondary to 1. Improved at present. Will monitor. Stable 3. Acute respiratory failure with suspected ARDS and pulmonary edema. Patient has been off ventilator. Continue to titrate down O2 as tolerated. Continue with senior program planner recommendations. stable 4. Severe acute renal failure status post HD. Monitor renal function. Stable at present. Continue with medical information specialist recommendations 5. Status post severe sepsis likely from bilateral pneumonia (likely aspiration ) as well as staph UTI. Off vasopressors. Continue with ID recommendations. No antibiotics on at this time stable 6. Reported history of alcohol use and abuse. Patient was educated about cessation of this 7. Essential hypertension. Continue antihypertensives and adjust needed 8. Diabetes. Continue insulin regimen. To be adjusted as needed 9. Hypothyroidism. Continue Synthroid Disposition and plan: Continue with physical therapy. Still awaiting bed availability. Not able to tolerate titration off O2 at this time. Continue trials. Discussed plan of care with Dr. Markham Problems: Subjective 24 Hr Interval Summary Free Text/Dictation Comfortable at present. No specific complaint Exam/Review of Systems Vital Signs Vitals Vital Signs Date Time Temp Pulse Resp B/P Pulse Ox O2 Delivery O2 Flow Rate FiO2 08/23/16 14:26 63 18 96 Nasal Cannula 3.0 08/23/16 08:11 98.8 156/84 08/22/16 21:49 32 Intake and Output 08/22/16 08/22/16 08/23/16 14:59 22:59 06:59 Intake Total 1080 ml Output Total 950 ml Balance 130 ml Exam Constitutional: alert, oriented Psych: nl mood/affect Head: normocephalic Eyes: nl conjunctiva Neck: supple, No jvd Respiratory: diminished breath sounds (Minimal bilateral lower lung bases) Cardiovascular: other (regular rate) Gastrointestinal: soft Extremities: edema Neurological: BLASTING ENTRYMAN II-XII intact, nl mental status, nl speech Results Result Diagram: 08/21/16 0558 08/22/16 0519 Results 24 hrs Laboratory Tests Test 08/22/16 17:32 08/22/16 20:29 08/23/16 08:01 08/23/16 11:57 Bedside Glucose 98 121 81 95 Medications Medications Current Medications Ondansetron HCl (Zofran Inj) 4 mg Q6H PRN IV NAUSEA AND/OR VOMITING; Start at 03:00 Metoclopramide HCl (Reglan) 10 mg Q6H PRN IV NAUSEA AND/OR VOMITING; Start at 03:00 Acetaminophen (Tylenol Tab) 650 mg Q6H PRN PO PAIN LEVEL 1-3 OR FEVER Last administered on 08/16/16 08:33; Admin Dose 650 MG; Start 08/01/16 at 03:00 Acetaminophen (Tylenol Supp) 650 mg Q4H PRN [place] PAIN LEVEL 1-3 OR FEVER; Start 08/01/16 at 06:30 Miscellaneous Information 1 ea NOTE XX ; Start 08/02/16 at 09:00 Glucose (Glutose) 15 gm Q15M PRN PO DECREASED GLUCOSE; Start 08/02/16 at 09:00 Glucose (Glutose) 22.5 gm Q15M PRN PO DECREASED GLUCOSE; Start 08/02/16 at 09:00 Dextrose (D50w Syringe) 25 ml Q15M PRN IV DECREASED GLUCOSE Last administered on 08/16/16 06:30; Admin Dose 25 ML; Start 08/02/16 at 09:00 Dextrose (D50w Syringe) 50 ml Q15M PRN IV DECREASED GLUCOSE; Start 08/02/16 at 09:00 Glucagon (Glucagen) 1 mg Q15M PRN IM DECREASED GLUCOSE; Start 08/02/16 at 09:00 Glucose (Glutose) 15 gm Q15M PRN BUCCAL DECREASED GLUCOSE; Start 08/02/16 at 09: 00 Calcium Carbonate (Ca Carbonate) 1,250 mg Q12 NGT Last administered on 08:53; Admin Dose 1,250 MG; Start 08/11/16 at 09:00 IV Flush (NS 10 ml) 10 ml PRN PRN IV FLUSH LINE; Start 08/11/16 at 20:00 Hydralazine HCl (Apresoline) 10 mg Q4H PRN IV SBP >160 Last administered on 17:21; Admin Dose 10 MG; Start 08/13/16 at 03:30 Hydromorphone HCl (Dilaudid) 1 mg Q4H PRN IV PAIN Last administered on 20:26; Admin Dose 1 MG; Start 08/16/16 at 08:30 Levothyroxine Sodium (Synthroid) 175 mcg DAILY@06 PO Last administered on 05:57; Admin Dose 175 MCG; Start 08/18/16 at 06:00 Pantoprazole (Protonix Tab) 40 mg DAILY@06 PO Last administered on 08/23/16 05 :57; Admin Dose 40 MG; Start 08/18/16 at 06:00 Enoxaparin Sodium (Lovenox) 110 mg Q12 SC Last administered on 08/23/16 09:23 ; Admin Dose 110 MG; Start 08/17/16 at 21:00 Doxazosin Mesylate (Cardura) 4 mg HS PO Last administered on 08/22/16 20:32; Admin Dose 4 MG; Start 08/19/16 at 21:00 Lorazepam (Ativan) 0.5 mg Q8H PRN PO ANXIETY; Start 08/19/16 at 14:00 Losartan Potassium (Cozaar) 50 mg DAILY PO Last administered on 08/23/16 08:54 ; Admin Dose 50 MG; Start 08/20/16 at 09:00 Furosemide (Lasix) 20 mg DAILY PO Last administered on 08/23/16 08:54; Admin Dose 20 MG; Start 08/21/16 at 09:00 Amlodipine Besylate (Norvasc) 5 mg BID PO ; Start 08/23/16 at 21:00 TIMOTHY MEADOWS Aug 23, 2016 16:23
--- NOTE | 2016-08-23 17:46 | CONS ---
Date/Time of Note Date/Time of Note DATE: 08/23/16 TIME: 17:45 Consultation Date/Type/Reason Admit Date/Time August 01, 2016 at 00:50 Initial Consult Date 08/01/16 Type of Consultation: palliative 24 HR Interval Summary Free Text/Dictation Has been moved out of the intensive care unit and is doing very well. I will sign off for now Exam/Review of Systems Vital Signs Vitals Vital Signs Date Time Temp Pulse Resp B/P Pulse Ox O2 Delivery O2 Flow Rate FiO2 08/23/16 14:26 63 18 96 Nasal Cannula 3.0 08/23/16 08:11 98.8 156/84 08/22/16 21:49 32 Intake and Output 08/22/16 08/22/16 08/23/16 15:00 23:00 07:00 Intake Total 1080 ml Output Total 950 ml Balance 130 ml Results Result Diagram: 08/21/16 0558 08/22/16 0519 Results 24 hrs Laboratory Tests Test 08/22/16 20:29 08/23/16 08:01 08/23/16 11:57 08/23/16 17:20 Bedside Glucose 121 81 95 90 Medications Medications Current Medications Ondansetron HCl (Zofran Inj) 4 mg Q6H PRN IV NAUSEA AND/OR VOMITING; Start at 03:00 Metoclopramide HCl (Reglan) 10 mg Q6H PRN IV NAUSEA AND/OR VOMITING; Start at 03:00 Acetaminophen (Tylenol Tab) 650 mg Q6H PRN PO PAIN LEVEL 1-3 OR FEVER Last administered on 08/16/16 08:33; Admin Dose 650 MG; Start 08/01/16 at 03:00 Acetaminophen (Tylenol Supp) 650 mg Q4H PRN [place] PAIN LEVEL 1-3 OR FEVER; Start 08/01/16 at 06:30 Miscellaneous Information 1 ea NOTE XX ; Start 08/02/16 at 09:00 Glucose (Glutose) 15 gm Q15M PRN PO DECREASED GLUCOSE; Start 08/02/16 at 09:00 Glucose (Glutose) 22.5 gm Q15M PRN PO DECREASED GLUCOSE; Start 08/02/16 at 09:00 Dextrose (D50w Syringe) 25 ml Q15M PRN IV DECREASED GLUCOSE Last administered on 08/16/16 06:30; Admin Dose 25 ML; Start 08/02/16 at 09:00 Dextrose (D50w Syringe) 50 ml Q15M PRN IV DECREASED GLUCOSE; Start 08/02/16 at 09:00 Glucagon (Glucagen) 1 mg Q15M PRN IM DECREASED GLUCOSE; Start 08/02/16 at 09:00 Glucose (Glutose) 15 gm Q15M PRN BUCCAL DECREASED GLUCOSE; Start 08/02/16 at 09: 00 Calcium Carbonate (Ca Carbonate) 1,250 mg Q12 NGT Last administered on 08:53; Admin Dose 1,250 MG; Start 08/11/16 at 09:00 IV Flush (NS 10 ml) 10 ml PRN PRN IV FLUSH LINE; Start 08/11/16 at 20:00 Hydralazine HCl (Apresoline) 10 mg Q4H PRN IV SBP >160 Last administered on 17:21; Admin Dose 10 MG; Start 08/13/16 at 03:30 Hydromorphone HCl (Dilaudid) 1 mg Q4H PRN IV PAIN Last administered on 20:26; Admin Dose 1 MG; Start 08/16/16 at 08:30 Levothyroxine Sodium (Synthroid) 175 mcg DAILY@06 PO Last administered on 05:57; Admin Dose 175 MCG; Start 08/18/16 at 06:00 Pantoprazole (Protonix Tab) 40 mg DAILY@06 PO Last administered on 08/23/16 05 :57; Admin Dose 40 MG; Start 08/18/16 at 06:00 Enoxaparin Sodium (Lovenox) 110 mg Q12 SC Last administered on 08/23/16 09:23 ; Admin Dose 110 MG; Start 08/17/16 at 21:00 Doxazosin Mesylate (Cardura) 4 mg HS PO Last administered on 08/22/16 20:32; Admin Dose 4 MG; Start 08/19/16 at 21:00 Lorazepam (Ativan) 0.5 mg Q8H PRN PO ANXIETY; Start 08/19/16 at 14:00 Losartan Potassium (Cozaar) 50 mg DAILY PO Last administered on 08/23/16 08:54 ; Admin Dose 50 MG; Start 08/20/16 at 09:00 Furosemide (Lasix) 20 mg DAILY PO Last administered on 08/23/16t 08:54; Admin Dose 20 MG; Start 08/21/16 at 09:00 Amlodipine Besylate (Norvasc) 5 mg BID PO ; Start 08/23/16 at 21:00 ARMIN ELIZABETH Aug 23, 2016 17:46
[2016-08-23 19:58] VITALS: BP 175/90; RESP 20
[2016-08-23] MEDS: DOXAZOSIN 4 MG TAB PO SCH (20:29)
[2016-08-24] VITALS (8 sets, daily range): BP systolic 145–186; BP diastolic 65–94; PULSE 78–82; RESP 18–28
[2016-08-24] MEDS: LEVOTHYROXINE 175 MCG TAB PO SCH (05:43)
[2016-08-24] MEDS: PANTOPRAZOLE (EC) 40 MG TAB PO SCH (05:43)
[2016-08-24 06:57] LABS: CALCIUM 9.4 mg/dl (8.4-10.2); CREATININE 1.01 mg/dl (0.61-1.24); PHOSPHORUS 4.4 mg/dl (2.5-4.9)
[2016-08-24] MEDS: INSULIN ASPART [NOVOLOG] 3 ML PEN SC SCH ×4 (08:15→20:12)
[2016-08-24] MEDS: HYDROmorphONE 1 MG/ML SYG IV PRN ×4 (08:15→18:47)
[2016-08-24] MEDS: ALBUTEROL/IPRATROPIUM (NEB) 3 ML AMP HHN SCH ×3 (08:37→20:02)
[2016-08-24] MEDS: LOSARTAN 50 MG TAB PO SCH (09:14)
[2016-08-24] MEDS: FUROSEMIDE 20 MG TAB PO SCH (09:14)
[2016-08-24] MEDS: AMLODIPINE 5 MG TAB PO SCH ×2 (09:15→20:08)
[2016-08-24] MEDS: ENOXAPARIN 60 MG/0.6 ML SYG SC SCH ×2 (09:18→20:10)
--- NOTE | 2016-08-24 10:45 | PN ---
DATE: 08/24/2016 SUBJECTIVE: The patient is stable. No acute events overnight. No hemoptysis, hematemesis or hemat ochezia. The patient remains on supplemental oxygen. No other events noted. OBJECTIVE: VITAL SIGNS: Blood pressure 162/88, respirations 28, pulse 86, temperature 98.6. HEENT: Head is normocephalic. NECK: Supple. HEART: Regular rate. LUNGS: Show diminished breath sounds at the base. ABDOMEN: Soft, nontender to palpation. No rebound or guarding. EXTREMITIES: Negative for clubbing or cyanosis. No edema. DERMATOLOGIC: No rashes. MUSCULOSKELETAL: Have no joint effusion. NEUROLOGIC: No change in exam. MEDICATIONS: The patient's medications were reviewed. LABORATORY DATA: Shows sodium 134, potassium 4.0, chloride 102, BUN 21, creatinine 1.01. ASSESSMENT AND PLAN: 1. Nonoliguric acute kidney injury, with unknown baseline creatinine. Etiology is secondary to acu te tubular necrosis. The patient is status post hemodialysis. The patient's renal function has rec overed. Continue the current treatment plan, supportive care, renally dose all meds. 2. Volume overload secondary to acute kidney injury and congestive heart failure. The patient is c linically improving. Continue the current medical management. 3. Mineral bone disorder. Continue to monitor calcium and phosphorus levels. 4. Anemia. Continue to monitor hemoglobin and hematocrit levels. 5. Hypoxemic respiratory failure secondary to pneumonia and congestive heart failure. The patient is clinically improving. Continue the current medical management. 6. Sepsis, status post shock. The patient is completing an antibiotic course. 7. Hypothyroidism. Continue Synthroid. 8. Diabetes. Continue Accu-Cheks and insulin sliding scale. 9. History of ETOH abuse. 10. Status post cardiopulmonary arrest. Dictated By: BALDOMEOR TOVAR/NTS Conf#: [id number] DID#: [id number]
[2016-08-24] MEDS: CA CARBONATE (250 MG/ML) 5ML CUP NGT SCH ×2 (10:55→20:08)
--- NOTE | 2016-08-24 11:36 | RADRPT ---
PROCEDURE: XR Chest. CLINICAL INDICATION: Shortness of breath. TECHNIQUE: Single frontal view. COMPARISON: 08/18/2016. FINDINGS: There is left basilar atelectasis, unchanged. Mild pulmonary edema is slightly worse than seen prev iously. The heart is mildly enlarged. There is calcification in the aorta consistent with atherosclerosis. There is no pleural effusion. There is no pneumothorax. IMPRESSION: 1. Slightly worse pulmonary edema. 2. No other change from 08/18/2016. RPTAT: QQ .Chalo Tapia MD, MD Date Time Electronically viewed and signed by .Chalo Tapia MD, MD on 08/24/2016 11:35 .R/
--- NOTE | 2016-08-24 11:43 | CONS ---
Date/Time of Note Date/Time of Note DATE: 08/24/16 TIME: 11:40 Assessment/Plan Assessment/Plan Additional Assessment/Plan Chest x-ray was reviewed from today which is essentially clear. Assessment recommendations; 1. Patient admitted with septic shock and respiratory failure with marked overall clinical improvement. 2. Likely critical illness myopathy. 3. Acute renal failure status post hemodialysis 2 with normalization of renal function. Patient not requiring any further hemodialysis. 4. Likely underlying sleep apnea. 5. Hypertension. Continue current treatment. Patient will benefit from transfer to rehab center. Consultation Date/Type/Reason Admit Date/Time August 01, 2016 at 00:50 Initial Consult Date 08/01/16 Type of Consultation: Pulmonary 24 HR Interval Summary Free Text/Dictation Patient condition is stable. Denies any shortness or, chest pain, patient eating well. She complains of mild generalized weakness. More pronounced in lower extremities. Patient has remained hemodynamically stable. General exam; elderly male, awake alert currently in no distress. Exam/Review of Systems Vital Signs Vitals Vital Signs Date Time Temp Pulse Resp B/P Pulse Ox O2 Delivery O2 Flow Rate FiO2 08/24/16 08:37 95 2.0 08/24/16 08:37 90 26 Nasal Cannula 08/24/16 08:07 162/88 08/24/16 08:06 98.6 08/22/16 21:49 32 Intake and Output 08/23/16 08/23/16 08/24/16 15:00 23:00 07:00 Intake Total 920 ml 840 ml Output Total 1000 ml 900 ml Balance -80 ml -60 ml Exam HEENT exam; supple neck, no JVD. No lymphadenopathy. Midline trachea. No thyromegaly. Pharynx is clear. Patient has good dentition. Pupils are midsize and reactive to light. Chest examination; clear to ulceration. S1-S2 audible, no murmurs. Regular rhythm. Abdomen examination; soft, protuberant. Nontender. No organomegaly. Bowel sounds audible. Extremity examination; no peripheral edema. Pulses 2+ bilaterally. No clubbing. DIRECTOR OF ONLINE MERCHANDISING examination; no focal motor deficit. Patient still has generalized weakness more pronounced in lower extremities bilaterally. Results Result Diagram: 08/21/16 0558 08/24/16 0530 Results 24 hrs Laboratory Tests Test 08/23/16 11:57 08/23/16 17:20 08/23/16 21:20 08/24/16 05:30 Bedside Glucose 95 90 95 Sodium Level 134 L Potassium Level 4.0 Chloride Level 102 Carbon Dioxide Level 27 Anion Gap 9 Blood Urea Nitrogen 21 H Creatinine 1.01 Glucose Level 72 Calcium Level 9.4 Phosphorus Level 4.4 Magnesium Level 2.0 Test 08/24/16 08:14 Bedside Glucose 79 Medications Medications Current Medications Ondansetron HCl (Zofran Inj) 4 mg Q6H PRN IV NAUSEA AND/OR VOMITING; Start at 03:00 Metoclopramide HCl (Reglan) 10 mg Q6H PRN IV NAUSEA AND/OR VOMITING; Start at 03:00 Acetaminophen (Tylenol Tab) 650 mg Q6H PRN PO PAIN LEVEL 1-3 OR FEVER Last administered on 08/16/16 08:33; Admin Dose 650 MG; Start 08/01/16 at 03:00 Acetaminophen (Tylenol Supp) 650 mg Q4H PRN [place] PAIN LEVEL 1-3 OR FEVER; Start 08/01/16 at 06:30 Miscellaneous Information 1 ea NOTE XX ; Start 08/02/16 at 09:00 Glucose (Glutose) 15 gm Q15M PRN PO DECREASED GLUCOSE; Start 08/02/16 at 09:00 Glucose (Glutose) 22.5 gm Q15M PRN PO DECREASED GLUCOSE; Start 08/02/16 at 09:00 Dextrose (D50w Syringe) 25 ml Q15M PRN IV DECREASED GLUCOSE Last administered on 08/16/16 06:30; Admin Dose 25 ML; Start 08/02/16 at 09:00 Dextrose (D50w Syringe) 50 ml Q15M PRN IV DECREASED GLUCOSE; Start 08/02/16 at 09:00 Glucagon (Glucagen) 1 mg Q15M PRN IM DECREASED GLUCOSE; Start 08/02/16 at 09:00 Glucose (Glutose) 15 gm Q15M PRN BUCCAL DECREASED GLUCOSE; Start 08/02/16 at 09: 00 Calcium Carbonate (Ca Carbonate) 1,250 mg Q12 NGT Last administered on 10:55; Admin Dose 1,250 MG; Start 08/11/16 at 09:00 IV Flush (NS 10 ml) 10 ml PRN PRN IV FLUSH LINE; Start 08/11/16 at 20:00 Hydralazine HCl (Apresoline) 10 mg Q4H PRN IV SBP >160 Last administered on 17:21; Admin Dose 10 MG; Start 08/13/16 at 03:30 Hydromorphone HCl (Dilaudid) 1 mg Q4H PRN IV PAIN Last administered on 10:53; Admin Dose 1 MG; Start 08/16/16 at 08:30 Levothyroxine Sodium (Synthroid) 175 mcg DAILY@06 PO Last administered on 05:43; Admin Dose 175 MCG; Start 08/18/16 at 06:00 Pantoprazole (Protonix Tab) 40 mg DAILY@06 PO Last administered on 08/24/16 05 :43; Admin Dose 40 MG; Start 08/18/16 at 06:00 Enoxaparin Sodium (Lovenox) 110 mg Q12 SC Last administered on 08/24/16 09:18 ; Admin Dose 110 MG; Start 08/17/16 at 21:00 Doxazosin Mesylate (Cardura) 4 mg HS PO Last administered on 08/23/16 20:29; Admin Dose 4 MG; Start 08/19/16 at 21:00 Lorazepam (Ativan) 0.5 mg Q8H PRN PO ANXIETY; Start 08/19/16 at 14:00 Losartan Potassium (Cozaar) 50 mg DAILY PO Last administered on 08/24/16 09:14 ; Admin Dose 50 MG; Start 08/20/16 at 09:00 Furosemide (Lasix) 20 mg DAILY PO Last administered on 08/24/16 09:14; Admin Dose 20 MG; Start 08/21/16 at 09:00 Amlodipine Besylate (Norvasc) 5 mg BID PO Last administered on 08/24/16 09:15 ; Admin Dose 5 MG; Start 08/23/16 at 21:00 MIGUEL CHINCHILLA Aug 24, 2016 11:42
--- NOTE | 2016-08-24 15:01 | CONS ---
Date/Time of Note Date/Time of Note DATE: 08/24/16 TIME: 14:56 Assessment/Plan Assessment/Plan Chief Complaint/Hosp Course Assessment: Status post PEA cardiac arrest - secondary to severe metabolic acidosis, no ventricular arrhythmia or EKG changes to suggest primary cardiac etiology Acute on chronic diastolic heart failure - improved with diuresis Acute hypoxic respiratory failure - improved and extubated 08/15/2016 Status post septic shock - resolved Status post cute kidney injury - status post intermittent hemodialysis, renal function now back to normal Hypertension Hypothyroidism Recommendations: -echocardiogram showed LVEF 60%, grade 1 diastolic dysfunction -continue amlodipine 5mg BID and losartan 50mg daily -continue Lasix 20mg PO daily -consider cardiac stress testing as outpatient Problems: Consultation Date/Type/Reason Admit Date/Time August 01, 2016 at 00:50 Initial Consult Date 08/01/16 Type of Consultation: Cardiology 24 HR Interval Summary Free Text/Dictation No acute events. Detailed Summary Additional Comments 14 point review of systems without changes. Exam/Review of Systems Vital Signs Vitals Vital Signs Date Time Temp Pulse Resp B/P Pulse Ox O2 Delivery O2 Flow Rate FiO2 08/24/16 08:37 95 2.0 08/24/16 08:37 90 26 Nasal Cannula 08/24/16 08:07 162/88 08/24/16 08:06 98.6 08/22/16 21:49 32 Intake and Output 08/23/16 08/23/16 08/24/16 15:00 23:00 07:00 Intake Total 920 ml 840 ml Output Total 1000 ml 900 ml Balance -80 ml -60 ml Exam Constitutional: alert, oriented Psych: no complaints Head: atraumatic, normocephalic Neck: No jvd Respiratory: clear to auscultation, No crackles/rales Cardiovascular: regular rate and rhythm, No edema Gastrointestinal: non-tender, soft Neurological: nl mental status, nl speech Results Result Diagram: 08/21/16 0558 08/24/16 0530 Results 24 hrs Laboratory Tests Test 08/23/16 17:20 08/23/16 21:20 08/24/16 05:30 08/24/16 08:14 Bedside Glucose 90 95 79 Sodium Level 134 L Potassium Level 4.0 Chloride Level 102 Carbon Dioxide Level 27 Anion Gap 9 Blood Urea Nitrogen 21 H Creatinine 1.01 Glucose Level 72 Calcium Level 9.4 Phosphorus Level 4.4 Magnesium Level 2.0 Test 08/24/16 12:10 Bedside Glucose 101 Medications Medications Current Medications Ondansetron HCl (Zofran Inj) 4 mg Q6H PRN IV NAUSEA AND/OR VOMITING; Start at 03:00 Metoclopramide HCl (Reglan) 10 mg Q6H PRN IV NAUSEA AND/OR VOMITING; Start at 03:00 Acetaminophen (Tylenol Tab) 650 mg Q6H PRN PO PAIN LEVEL 1-3 OR FEVER Last administered on 08/16/16 08:33; Admin Dose 650 MG; Start 08/01/16 at 03:00 Acetaminophen (Tylenol Supp) 650 mg Q4H PRN [place] PAIN LEVEL 1-3 OR FEVER; Start 08/01/16 at 06:30 Miscellaneous Information 1 ea NOTE XX ; Start 08/02/16 at 09:00 Glucose (Glutose) 15 gm Q15M PRN PO DECREASED GLUCOSE; Start 08/02/16 at 09:00 Glucose (Glutose) 22.5 gm Q15M PRN PO DECREASED GLUCOSE; Start 08/02/16 at 09:00 Dextrose (D50w Syringe) 25 ml Q15M PRN IV DECREASED GLUCOSE Last administered on 08/16/16 06:30; Admin Dose 25 ML; Start 08/02/16 at 09:00 Dextrose (D50w Syringe) 50 ml Q15M PRN IV DECREASED GLUCOSE; Start 08/02/16 at 09:00 Glucagon (Glucagen) 1 mg Q15M PRN IM DECREASED GLUCOSE; Start 08/02/16 at 09:00 Glucose (Glutose) 15 gm Q15M PRN BUCCAL DECREASED GLUCOSE; Start 08/02/16 at 09: 00 Calcium Carbonate (Ca Carbonate) 1,250 mg Q12 NGT Last administered on 10:55; Admin Dose 1,250 MG; Start 08/11/16 at 09:00 IV Flush (NS 10 ml) 10 ml PRN PRN IV FLUSH LINE; Start 08/11/16 at 20:00 Hydralazine HCl (Apresoline) 10 mg Q4H PRN IV SBP >160 Last administered on 17:21; Admin Dose 10 MG; Start 08/13/16 at 03:30 Hydromorphone HCl (Dilaudid) 1 mg Q4H PRN IV PAIN Last administered on 10:53; Admin Dose 1 MG; Start 08/16/16 at 08:30 Levothyroxine Sodium (Synthroid) 175 mcg DAILY@06 PO Last administered on 05:43; Admin Dose 175 MCG; Start 08/18/16 at 06:00 Pantoprazole (Protonix Tab) 40 mg DAILY@06 PO Last administered on 08/24/16 05 :43; Admin Dose 40 MG; Start 08/18/16 at 06:00 Enoxaparin Sodium (Lovenox) 110 mg Q12 SC Last administered on 08/24/16 09:18 ; Admin Dose 110 MG; Start 08/17/16 at 21:00 Doxazosin Mesylate (Cardura) 4 mg HS PO Last administered on 08/23/16 20:29; Admin Dose 4 MG; Start 08/19/16 at 21:00 Lorazepam (Ativan) 0.5 mg Q8H PRN PO ANXIETY; Start 08/19/16 at 14:00 Losartan Potassium (Cozaar) 50 mg DAILY PO Last administered on 08/24/16 09:14 ; Admin Dose 50 MG; Start 08/20/16 at 09:00 Furosemide (Lasix) 20 mg DAILY PO Last administered on 08/24/16 09:14; Admin Dose 20 MG; Start 08/21/16 at 09:00 Amlodipine Besylate (Norvasc) 5 mg BID PO Last administered on 08/24/16 09:15 ; Admin Dose 5 MG; Start 08/23/16 at 21:00 SHEYLA HDZ MD Aug 24, 2016 15:01
--- NOTE | 2016-08-24 16:33 | PN ---
Date/Time of Note Date/Time of Note DATE: 08/24/16 TIME: 16:30 Assessment/Plan VTE Prophylaxis VTE Prophylaxis Intervention: LMWH Lines/Catheters IV Catheter Type (from Nrs): Saline Lock Urinary Cath still in place: Yes Reason Cath still needed: other (indicate) (montior I&O) Assessment/Plan Chief Complaint/Hosp Course Assessment and plan 1. Status post cardiac arrest with return of spontaneous circulation from severe metabolic acidosis. Improved at this time. Imaging Engineer following. Continue the recommendations. Patient noted with preserved EF. Stable. 2. Acute encephalopathy secondary to 1. Improved at present. Will monitor. Stable 3. Acute respiratory failure with suspected ARDS and pulmonary edema. Patient has been off ventilator. Continue to titrate down O2 as tolerated. Continue with warranty administrator recommendations. stable 4. Severe acute renal failure status post HD. Monitor renal function. Stable at present. Continue with vp human resources recommendations 5. Status post severe sepsis likely from bilateral pneumonia (likely aspiration ) as well as staph UTI. Off vasopressors. Continue with ID recommendations. No antibiotics on at this time stable 6. Reported history of alcohol use and abuse. Patient was educated about cessation of this 7. Essential hypertension. Continue antihypertensives and adjust needed 8. Diabetes. Continue insulin regimen. To be adjusted as needed 9. Hypothyroidism. Continue Synthroid Disposition and plan: with some shortness of breath, but overall stable chest xray with some pulm edema. cont on diuretic. awaiting bed placement at [facility] Discussed plan of care with Dr. Markham Problems: Subjective 24 Hr Interval Summary Free Text/Dictation resting at this time. no s/s of distress Exam/Review of Systems Vital Signs Vitals Vital Signs Date Time Temp Pulse Resp B/P Pulse Ox O2 Delivery O2 Flow Rate FiO2 08/24/16 08:37 95 2.0 08/24/16 08:37 90 26 Nasal Cannula 08/24/16 08:07 162/88 08/24/16 08:06 98.6 08/22/16 21:49 32 Intake and Output 08/23/16 08/23/16 08/24/16 15:00 23:00 07:00 Intake Total 920 ml 840 ml Output Total 1000 ml 900 ml Balance -80 ml -60 ml Exam Constitutional: alert, oriented Psych: nl mood/affect Head: normocephalic Neck: supple, No jvd Respiratory: clear to auscultation, normal air movement Cardiovascular: regular rate and rhythm Gastrointestinal: non-tender, soft Musculoskeletal: nl extremities to inspection Extremities: normal pulses Neurological: SENIOR NET PROGRAMMER II-XII intact, nl mental status, nl speech Skin: nl turgor Results Result Diagram: 08/21/16 0558 08/24/16 0530 Results 24 hrs Laboratory Tests Test 08/23/16 17:20 08/23/16 21:20 08/24/16 05:30 08/24/16 08:14 Bedside Glucose 90 95 79 Sodium Level 134 L Potassium Level 4.0 Chloride Level 102 Carbon Dioxide Level 27 Anion Gap 9 Blood Urea Nitrogen 21 H Creatinine 1.01 Glucose Level 72 Calcium Level 9.4 Phosphorus Level 4.4 Magnesium Level 2.0 Test 08/24/16 12:10 Bedside Glucose 101 Medications Medications Current Medications Ondansetron HCl (Zofran Inj) 4 mg Q6H PRN IV NAUSEA AND/OR VOMITING; Start at 03:00 Metoclopramide HCl (Reglan) 10 mg Q6H PRN IV NAUSEA AND/OR VOMITING; Start at 03:00 Acetaminophen (Tylenol Tab) 650 mg Q6H PRN PO PAIN LEVEL 1-3 OR FEVER Last administered on 08/16/16 08:33; Admin Dose 650 MG; Start 08/01/16 at 03:00 Acetaminophen (Tylenol Supp) 650 mg Q4H PRN [place] PAIN LEVEL 1-3 OR FEVER; Start 08/01/16 at 06:30 Miscellaneous Information 1 ea NOTE XX ; Start 08/02/16 at 09:00 Glucose (Glutose) 15 gm Q15M PRN PO DECREASED GLUCOSE; Start 08/02/16 at 09:00 Glucose (Glutose) 22.5 gm Q15M PRN PO DECREASED GLUCOSE; Start 08/02/16 at 09:00 Dextrose (D50w Syringe) 25 ml Q15M PRN IV DECREASED GLUCOSE Last administered on 08/16/16 06:30; Admin Dose 25 ML; Start 08/02/16 at 09:00 Dextrose (D50w Syringe) 50 ml Q15M PRN IV DECREASED GLUCOSE; Start 08/02/16 at 09:00 Glucagon (Glucagen) 1 mg Q15M PRN IM DECREASED GLUCOSE; Start 08/02/16 at 09:00 Glucose (Glutose) 15 gm Q15M PRN BUCCAL DECREASED GLUCOSE; Start 08/02/16 at 09: 00 Calcium Carbonate (Ca Carbonate) 1,250 mg Q12 NGT Last administered on 10:55; Admin Dose 1,250 MG; Start 08/11/16 at 09:00 IV Flush (NS 10 ml) 10 ml PRN PRN IV FLUSH LINE; Start 08/11/16 at 20:00 Hydralazine HCl (Apresoline) 10 mg Q4H PRN IV SBP >160 Last administered on 17:21; Admin Dose 10 MG; Start 08/13/16 at 03:30 Hydromorphone HCl (Dilaudid) 1 mg Q4H PRN IV PAIN Last administered on 15:28; Admin Dose 1 MG; Start 08/16/16 at 08:30 Levothyroxine Sodium (Synthroid) 175 mcg DAILY@06 PO Last administered on 05:43; Admin Dose 175 MCG; Start 08/18/16 at 06:00 Pantoprazole (Protonix Tab) 40 mg DAILY@06 PO Last administered on 08/24/16 05 :43; Admin Dose 40 MG; Start 08/18/16 at 06:00 Enoxaparin Sodium (Lovenox) 110 mg Q12 SC Last administered on 08/24/16 09:18 ; Admin Dose 110 MG; Start 08/17/16 at 21:00 Doxazosin Mesylate (Cardura) 4 mg HS PO Last administered on 08/23/16 20:29; Admin Dose 4 MG; Start 08/19/16 at 21:00 Lorazepam (Ativan) 0.5 mg Q8H PRN PO ANXIETY; Start 08/19/16 at 14:00 Losartan Potassium (Cozaar) 50 mg DAILY PO Last administered on 08/24/16 09:14 ; Admin Dose 50 MG; Start 08/20/16 at 09:00 Furosemide (Lasix) 20 mg DAILY PO Last administered on 08/24/16 09:14; Admin Dose 20 MG; Start 08/21/16 at 09:00 Amlodipine Besylate (Norvasc) 5 mg BID PO Last administered on 08/24/16 09:15 ; Admin Dose 5 MG; Start 08/23/16 at 21:00 TIMOTHY MEADOWS Aug 24, 2016 16:33
[2016-08-24] MEDS: DOXAZOSIN 4 MG TAB PO SCH (20:07)
[2016-08-24] MEDS: hydrALAzine 20 MG INJ IV PRN (23:33)
[2016-08-25 00:40] VITALS: BP 126/69; PULSE 80
[2016-08-25] MEDS: PANTOPRAZOLE (EC) 40 MG TAB PO SCH (06:16)
[2016-08-25] MEDS: LEVOTHYROXINE 175 MCG TAB PO SCH (06:16)
[2016-08-25] MEDS: INSULIN ASPART [NOVOLOG] 3 ML PEN SC SCH ×4 (07:54→20:48)
[2016-08-25 08:07] VITALS: BP 143/85; RESP 20
[2016-08-25] MEDS: LOSARTAN 50 MG TAB PO SCH (08:48)
[2016-08-25] MEDS: CA CARBONATE (250 MG/ML) 5ML CUP NGT SCH ×2 (08:48→20:39)
[2016-08-25] MEDS: AMLODIPINE 5 MG TAB PO SCH ×2 (08:49→20:39)
[2016-08-25] MEDS: FUROSEMIDE 40 MG TAB PO SCH ×2 (09:00→20:39)
[2016-08-25] MEDS: ENOXAPARIN 60 MG/0.6 ML SYG SC SCH ×2 (09:05→20:45)
[2016-08-25] MEDS: ALBUTEROL/IPRATROPIUM (NEB) 3 ML AMP HHN SCH ×3 (09:40→19:49)
--- NOTE | 2016-08-25 10:49 | PN ---
DATE: 08/25/2016 SUBJECTIVE: Chart reviewed. The patient is lying in bed comfortably, on 2 liters nasal cannula, sa turating 98% and does not appear in acute distress. Continues to have some lower extremity weakness , otherwise no shortness of breath. PHYSICAL EXAMINATION: VITAL SIGNS: Blood pressure 143/85, pulse 91, respiration 20, temperature 99.2. HEENT: Pupils are equal and react to light. NECK: Supple, no JVD noted, no cervical adenopathy, no carotid bruits heard. LUNGS: Fair breath sounds bilaterally. CARDIOVASCULAR: S1, S2 normal. ABDOMEN: Soft, nontender. No organomegaly or masses noted. EXTREMITIES: No clubbing or cyanosis noted. NEUROLOGIC: Lower extremity weakness. LABORATORY DATA: No labs today. IMPRESSION: 1. Status post septic shock. 2. Status post respiratory failure. 3. Critical illness myopathy. 4. Status post acute renal failure requiring hemodialysis briefly; however, now no longer on hemodi alysis. 5. Likely underlying sleep apnea. 6. History of hypertension. RECOMMENDATIONS: 1. Continue current treatment. 2. Will need acute rehabilitation. 3. Complete antibiotics. Dictated By: REAL COTTON MD, MA/CHARLES Conf#: [id number] DID#: [id number]
--- NOTE | 2016-08-25 15:55 | PN ---
Date/Time of Note Date/Time of Note DATE: 08/25/16 TIME: 15:52 Assessment/Plan VTE Prophylaxis VTE Prophylaxis Intervention: LMWH Lines/Catheters [facility]from [facility] Saline Lock Urinary Cath still in place: Yes Reason Cath still needed: other (indicate) (montior I&O) Assessment/Plan Chief Complaint/Hosp Course Assessment and plan 1. Status post cardiac arrest with return of spontaneous circulation from severe metabolic acidosis. Improved at this time. Head Housekeeper following. Continue the recommendations. Patient noted with preserved EF. Stable. 2. Acute encephalopathy secondary to 1. Improved at present. Will monitor. Stable 3. Acute respiratory failure with suspected ARDS and pulmonary edema. Patient has been off ventilator. Continue to titrate down O2 as tolerated. Continue with interventional radiology tech recommendations. stable 4. Severe acute renal failure status post HD. Monitor renal function. Stable at present. Continue with sailmaker recommendations 5. Status post severe sepsis likely from bilateral pneumonia (likely aspiration ) as well as staph UTI. Off vasopressors. Continue with ID recommendations. No antibiotics on at this time stable 6. Reported history of alcohol use and abuse. Patient was educated about cessation of this 7. Essential hypertension. Continue antihypertensives and adjust needed 8. Diabetes. Continue insulin regimen. To be adjusted as needed 9. Hypothyroidism. Continue Synthroid Disposition and plan: continue on diuretic. no s/s of distress. [facility] Discussed plan of care with Dr. Markham Problems: Subjective 24 Hr Interval Summary Free Text/Dictation Comfortable at present. No specific complaints Exam/Review of Systems Vital Signs Vitals Vital Signs Date Time Temp Pulse Resp B/P Pulse Ox O2 Delivery O2 Flow Rate FiO2 08/25/16 14:55 88 20 97 Nasal Cannula 2.0 08/25/16 08:07 99.2 143/85 08/22/16 21:49 32 Intake and Output 08/24/16 08/24/16 08/25/16 15:00 23:00 07:00 Intake Total 480 ml 400 ml Output Total 500 ml 1100 ml Balance -20 ml -700 ml Exam Constitutional: alert, oriented Psych: nl mood/affect Head: normocephalic Neck: supple, No jvd Respiratory: clear to auscultation, normal air movement Cardiovascular: regular rate and rhythm Gastrointestinal: non-tender, soft Musculoskeletal: nl extremities to inspection Extremities: normal pulses Neurological: TRUCKING SUPERVISOR II-XII intact, nl mental status, nl speech Skin: nl turgor Results Result Diagram: 08/21/16 0558 08/24/16 0530 Results 24 hrs Laboratory Tests Test 08/24/16 17:37 08/24/16 20:03 08/25/16 07:48 08/25/16 11:59 Bedside Glucose 91 128 74 105 Medications Medications Current Medications Ondansetron HCl (Zofran Inj) 4 mg Q6H PRN IV NAUSEA AND/OR VOMITING; Start at 03:00 Metoclopramide HCl (Reglan) 10 mg Q6H PRN IV NAUSEA AND/OR VOMITING; Start at 03:00 Acetaminophen (Tylenol Tab) 650 mg Q6H PRN PO PAIN LEVEL 1-3 OR FEVER Last administered on 08/16/16 08:33; Admin Dose 650 MG; Start 08/01/16 at 03:00 Acetaminophen (Tylenol Supp) 650 mg Q4H PRN [place] PAIN LEVEL 1-3 OR FEVER; Start 08/01/16 at 06:30 Miscellaneous Information 1 ea NOTE XX ; Start 08/02/16 at 09:00 Glucose (Glutose) 15 gm Q15M PRN PO DECREASED GLUCOSE; Start 08/02/16 at 09:00 Glucose (Glutose) 22.5 gm Q15M PRN PO DECREASED GLUCOSE; Start 08/02/16 at 09:00 Dextrose (D50w Syringe) 25 ml Q15M PRN IV DECREASED GLUCOSE Last administered on 08/16/16 06:30; Admin Dose 25 ML; Start 08/02/16 at 09:00 Dextrose (D50w Syringe) 50 ml Q15M PRN IV DECREASED GLUCOSE; Start 08/02/16 at 09:00 Glucagon (Glucagen) 1 mg Q15M PRN IM DECREASED GLUCOSE; Start 08/02/16 at 09:00 Glucose (Glutose) 15 gm Q15M PRN BUCCAL DECREASED GLUCOSE; Start 08/02/16 at 09: 00 Calcium Carbonate (Ca Carbonate) 1,250 mg Q12 NGT Last administered on 08:48; Admin Dose 1,250 MG; Start 08/11/16 at 09:00 IV Flush (NS 10 ml) 10 ml PRN PRN IV FLUSH LINE; Start 08/11/16 at 20:00 Hydralazine HCl (Apresoline) 10 mg Q4H PRN IV SBP >160 Last administered on 23:33; Admin Dose 10 MG; Start 08/13/16 at 03:30 Hydromorphone HCl (Dilaudid) 1 mg Q4H PRN IV PAIN Last administered on 18:47; Admin Dose 1 MG; Start 08/16/16 at 08:30 Levothyroxine Sodium (Synthroid) 175 mcg DAILY@06 PO Last administered on 06:16; Admin Dose 175 MCG; Start 08/18/16 at 06:00 Pantoprazole (Protonix Tab) 40 mg DAILY@06 PO Last administered on 08/25/16 06 :16; Admin Dose 40 MG; Start 08/18/16 at 06:00 Enoxaparin Sodium (Lovenox) 110 mg Q12 SC Last administered on 08/25/16 09:05 ; Admin Dose 110 MG; Start 08/17/16 at 21:00 Doxazosin Mesylate (Cardura) 4 mg HS PO Last administered on 08/24/16 20:07; Admin Dose 4 MG; Start 08/19/16 at 21:00 Lorazepam (Ativan) 0.5 mg Q8H PRN PO ANXIETY; Start 08/19/16 at 14:00 Losartan Potassium (Cozaar) 50 mg DAILY PO Last administered on 08/25/16 08:48 ; Admin Dose 50 MG; Start 08/20/16 at 09:00 Amlodipine Besylate (Norvasc) 5 mg BID PO Last administered on 08/25/16 08:49 ; Admin Dose 5 MG; Start 08/23/16 at 21:00 Furosemide (Lasix) 40 mg BID PO ; Start 08/25/16 at 09:00 TIMOTHY MEADOWS Aug 25, 2016 15:55
[2016-08-25 19:33] VITALS: BP 152/84; RESP 20
[2016-08-25] MEDS: DOXAZOSIN 4 MG TAB PO SCH (20:40)
[2016-08-26] MEDS: PANTOPRAZOLE (EC) 40 MG TAB PO SCH (05:20)
[2016-08-26] MEDS: LEVOTHYROXINE 175 MCG TAB PO SCH (05:21)
[2016-08-26 05:41] LABS: ADD SCAN DIFF NO
[2016-08-26 05:55] LABS: BASOPHILS % 0.4 % (0.0-2.0); EOSINOPHILS # 0.7 10^3/ul (0.0-0.5); EOSINOPHILS % 8.3 % (0.0-7.0); HEMATOCRIT 26.6 % (42.0-52.0); HEMOGLOBIN 8.5 g/dl (14.0-18.0); LYMPHOCYTES # 1.8 10^3/ul (0.8-2.9); LYMPHOCYTES % 21.9 % (15.0-51.0); MEAN CORPUSCULAR HEMOGLOBIN 31.8 pg (29.0-33.0); MEAN CORPUSCULAR VOLUME 99.6 fl (82.0-101.0); MONOCYTE # 0.9 10^3/ul (0.3-0.9); MONOCYTES % 11.1 % (0.0-11.0); NEUTROPHIL # 4.7 10^3/ul (1.6-7.5); NEUTROPHILS % 57.9 % (39.0-77.0); PLATELET COUNT 377 10^3/UL (140-415); RED BLOOD COUNT 2.67 10^6/ul (4.70-6.10); RED CELL DISTRIBUTION WIDTH 14.9 % (11.5-14.5); WHITE BLOOD COUNT 8.1 10^3/ul (4.8-10.8)
[2016-08-26 06:29] LABS: CALCIUM 10.1 mg/dl (8.4-10.2); CREATININE 1.08 mg/dl (0.61-1.24); MAGNESIUM 1.8 mg/dl (1.7-2.5); PHOSPHORUS 4.6 mg/dl (2.5-4.9); POTASSIUM 3.8 mmol/L (3.5-5.1)
[2016-08-26 07:51] VITALS: BP 132/79; RESP 21
[2016-08-26] MEDS: ALBUTEROL/IPRATROPIUM (NEB) 3 ML AMP HHN SCH ×3 (07:57→19:45)
[2016-08-26] MEDS ORDERED: BISACODYL (EC) 5 MG TAB PO PRN (08:00)
[2016-08-26] MEDS: INSULIN ASPART [NOVOLOG] 3 ML PEN SC SCH ×4 (08:15→21:00)
[2016-08-26] MEDS: CA CARBONATE (250 MG/ML) 5ML CUP NGT SCH ×2 (08:31→22:00)
[2016-08-26] MEDS: LOSARTAN 50 MG TAB PO SCH (08:32)
[2016-08-26] MEDS: FUROSEMIDE 40 MG TAB PO SCH ×2 (08:32→22:01)
[2016-08-26] MEDS: POLYETHYLENE GLYCOL 17 GM PACKET PO SCH ×2 (08:32→22:01)
[2016-08-26] MEDS: AMLODIPINE 5 MG TAB PO SCH ×2 (08:33→22:01)
[2016-08-26] MEDS: ENOXAPARIN 60 MG/0.6 ML SYG SC SCH ×2 (08:35→22:09)
--- NOTE | 2016-08-26 13:10 | PN ---
DATE: 08/26/2016 SUBJECTIVE DATA: The patient's vital signs remains stable. OBJECTIVE DATA: VITAL SIGNS: Temperature 98.1, pulse rate 82, respiratory rate 16, blood pressure 132/70, oxygen saturation 98% on low flow O2. GENERAL: This is an obese male lying in bed in no apparent distress. HEENT: Head normocephalic and atraumatic. Eyes: Anicteric sclerae. Conjunctivae clear. ENT: Nasal septum is midline. Oral mucosa is dry. NECK: Supple. No JVD noticed. RESPIRATORY: Bilaterally diminished breath sounds. No adventitious breath sounds. No use of accessory muscles of respiration. CARDIAC: Regular rate and rhythm. S1 and S2 heard. ABDOMEN: Soft, nontender and nondistended. Bowel sounds positive in all 4 quadrants. GENITOURINARY: Deferred. EXTREMITIES: No cyanosis, no clubbing. Bilateral lower extremity 1 to 2+ pitting edema. Peripheral pulses are diminished. NEUROLOGIC: The patient is awake and alert, and oriented . LABORATORY AND DIAGNOSTIC DATA: WBC 8.1, hemoglobin 8.5, hematocrit 26.6, platelet count 377. Sodium 136, potassium 3.9, chloride 102, carbon dioxide 30 , anion gap 8, BUN 19, creatinine 1.0, glucose 80, calcium 10.1, phosphorus 4.6 , magnesium 1.8. ASSESSMENT AND PLAN: 1. Status post PEA cardiac arrest secondary to severe metabolic acidosis. The patient is being followed by Cardiology. As per Cardiology, there is no cardiac etiology to suggest the cardiac arrest. 2. Acute on chronic diastolic heart faded. Improving with diuresis. 3. Acute kidney injury that required temporary hemodialysis. Currently, off hemodialysis. Being followed by Nephrology. 4. Essential hypertension. Continue antihypertensives. 5. Acute encephalopathy secondary to #1, improving. 6. Acute respiratory failure with ARDS and pulmonary edema, status post mechanical ventilation. Currently extubated. 7. Status post sepsis, probably secondary to underlying aspiration pneumonia. 8. Hypothyroidism, severe. Continue Synthroid. 9. Debility. Status post evaluation by physical therapy. Physical therapy is recommending fdc facility versus acute rehabilitation unit for further rehabilitation. 10. Normocytic normochromic anemia. Continue to monitor H and H closely. 11. Diabetes mellitus. Hemoglobin A1c 5.0. Continue sliding scale insulin. 12. Occlusive thrombosis of the left cephalic vein, on therapeutic anticoagulation. 13. Fluid, electrolytes, and nutrition. Mechanical soft diet. 14. DVT prophylaxis. Subcutaneous Lovenox. 15. Gastrointestinal prophylaxis. Proton pump inhibitors. PLAN: Await placement to a fdc facility. The case was discussed with Dr. Brooke. SRINIVASA BROOKE MD, AM/CHARLES Conf#: [id number] DID#: [id number] MTDD
--- NOTE | 2016-08-26 13:54 | PN ---
DATE: 08/26/2016 SUBJECTIVE: The patient is clinically stable, remains on 3 liters nasal cannula. No other events n oted. OBJECTIVE: VITAL SIGNS: Blood pressure 132/79, respiration 21, pulse 86, temperature 98.1. HEENT: Head is normocephalic. NECK: Supple. HEART: Regular rate. LUNGS: Show diminished breath sounds at base. ABDOMEN: Soft, nontender to palpation without rebound or guarding. EXTREMITIES: Negative for clubbing, cyanosis, no edema. DERMATOLOGIC: No rashes. MUSCULOSKELETAL: No joint effusions. NEUROLOGIC: No change in exam. MEDICATIONS: The patient's medications have been reviewed. LABORATORY DATA: BMP within normal limits. White count 8.1, hemoglobin 8.5, hematocrit 26.6, plate let count is 377. ASSESSMENT AND PLAN: 1. Nonoliguric acute kidney injury with unknown baseline creatinine. Etiology is secondary to acut e tubular necrosis. The patient is status post hemodialysis. Renal function is improved. Continue current treatment plan, supportive care, renally dose all medicines. 2. Volume overload secondary to acute kidney injury, congestive heart failure. The patient's chest x-ray shows increased pulmonary edema. The patient's diuretic therapy was escalated to 40 mg b.i.d . We will continue. We will monitor electrolytes and renal function closely. 3. Mineral bone disorder. Continue to monitor calcium and phosphorus levels. 4. Anemia. Continue to monitor hemoglobin and hematocrit levels. 5. Hypoxemic respiratory failure secondary to pneumonia and congestive heart failure. The patient is clinically improving. Continue to monitor. 6. Sepsis, status post shock. The patient is completing antibiotic course. 7. Hypothyroidism. Continue Synthroid. 8. Diabetes. Continue Accu-Cheks and sliding scale. 9. History of ETOH abuse. 10. Status post cardiopulmonary arrest. Dictated By: BALDOMERO TOVAR/CHARLES Conf#: [id number] DID#: [id number]
--- NOTE | 2016-08-26 15:27 | PN ---
DATE: 08/26/2016 SUBJECTIVE: Chart reviewed. No significant events noted. The patient on 3 liters O2 nasal cannula , saturating 98%. OBJECTIVE: VITAL SIGNS: Blood pressure 132/79, pulse 86, respirations 21, temperature 98.1. HEENT: Pupils are equal and react to light. NECK: Supple, no JVD noted, no cervical adenopathy, no carotid bruits heard. LUNGS: Fair breath sounds bilaterally. CARDIOVASCULAR: S1, S2 normal. ABDOMEN: Soft, nontender. No organomegaly or masses noted. EXTREMITIES: No clubbing or cyanosis noted. NEUROLOGICAL: Awake. LABORATORY DATA: WBC 8.1, hemoglobin 8.5, hematocrit 26.6, platelets 377. Sodium 136, potassium 3. 8, chloride 102, CO2 of 30, BUN 19, creatinine 1.08, glucose 80. IMPRESSION: 1. Status post septic shock. 2. Status post respiratory failure. 3. Critical illness myopathy. 4. Status post acute renal failure requiring hemodialysis; however, now off of hemodialysis. 5. Likely underlying sleep apnea. 6. History of hypertension. RECOMMENDATIONS: 1. Continue current treatment. 2. Continue physical therapy, continue. Dictated By: REAL COTTON MD, MA/CHARLES Conf#: [id number] DID#: [id number]
[2016-08-26] MEDS: ACETAMINOPHEN 325 MG TAB PO PRN (16:27)
--- NOTE | 2016-08-26 17:46 | CONS ---
Date/Time of Note Date/Time of Note DATE: 08/26/16 TIME: 17:45 Assessment/Plan Assessment/Plan Chief Complaint/Hosp Course Assessment: Status post PEA cardiac arrest - secondary to severe metabolic acidosis, no ventricular arrhythmia or EKG changes to suggest primary cardiac etiology Acute on chronic diastolic heart failure - improved with diuresis Acute hypoxic respiratory failure - improved and extubated 08/15/2016 Status post septic shock - resolved Status post cute kidney injury - status post intermittent hemodialysis, renal function now back to normal Hypertension Hypothyroidism Recommendations: -echocardiogram showed LVEF 60%, grade 1 diastolic dysfunction -continue amlodipine 5mg BID and losartan 50mg daily -continue Lasix 40mg PO BID -consider cardiac stress testing as outpatient Problems: Consultation Date/Type/Reason Admit Date/Time August 01, 2016 at 00:50 Initial Consult Date 08/01/16 Type of Consultation: Cardiology 24 HR Interval Summary Free Text/Dictation No acute events. Denies chest pain or shortness of breath. Detailed Summary Additional Comments 14 point review of systems without changes. Exam/Review of Systems Vital Signs Vitals Vital Signs Date Time Temp Pulse Resp B/P Pulse Ox O2 Delivery O2 Flow Rate FiO2 08/26/16 14:46 87 18 98 Nasal Cannula 2.0 08/26/16 07:51 98.1 132/79 08/22/16 21:49 32 Intake and Output 08/25/16 08/25/16 08/26/16 15:00 23:00 07:00 Intake Total 1320 ml 600 ml Output Total 1100 ml 2100 ml Balance 220 ml -1500 ml Exam Constitutional: alert, oriented Psych: no complaints Head: atraumatic, normocephalic Neck: No jvd Respiratory: clear to auscultation, No crackles/rales Cardiovascular: regular rate and rhythm, No edema Gastrointestinal: non-tender, soft Neurological: nl mental status, nl speech Results Result Diagram: 08/26/16 0510 08/26/16 0510 Results 24 hrs Laboratory Tests Test 08/25/16 20:43 08/26/16 05:10 08/26/16 08:27 08/26/16 12:49 Bedside Glucose 91 85 97 White Blood Count 8.1 # Red Blood Count 2.67 L Hemoglobin 8.5 L Hematocrit 26.6 L Mean Corpuscular Volume 99.6 Mean Corpuscular Hemoglobin 31.8 Mean Corpuscular Hemoglobin Concent 32.0 Red Cell Distribution Width 14.9 H Platelet Count 377 # Mean Platelet Volume 11.0 H Neutrophils % 57.9 Lymphocytes % 21.9 Monocytes % 11.1 H Eosinophils % 8.3 H Basophils % 0.4 Nucleated Red Blood Cells % 0.0 Neutrophils # 4.7 Lymphocytes # 1.8 Monocytes # 0.9 Eosinophils # 0.7 H Basophils # 0.0 Nucleated Red Blood Cells # 0.0 Sodium Level 136 Potassium Level 3.8 Chloride Level 102 Carbon Dioxide Level 30 Anion Gap 8 Blood Urea Nitrogen 19 Creatinine 1.08 Glucose Level 80 Calcium Level 10.1 Phosphorus Level 4.6 Magnesium Level 1.8 Medications Medications Current Medications Ondansetron HCl (Zofran Inj) 4 mg Q6H PRN IV NAUSEA AND/OR VOMITING; Start at 03:00 Metoclopramide HCl (Reglan) 10 mg Q6H PRN IV NAUSEA AND/OR VOMITING; Start at 03:00 Acetaminophen (Tylenol Tab) 650 mg Q6H PRN PO PAIN LEVEL 1-3 OR FEVER Last administered on 08/26/16 16:27; Admin Dose 650 MG; Start 08/01/16 at 03:00 Acetaminophen (Tylenol Supp) 650 mg Q4H PRN [place] PAIN LEVEL 1-3 OR FEVER; Start 08/01/16 at 06:30 Miscellaneous Information 1 ea NOTE XX ; Start 08/02/16 at 09:00 Glucose (Glutose) 15 gm Q15M PRN PO DECREASED GLUCOSE; Start 08/02/16 at 09:00 Glucose (Glutose) 22.5 gm Q15M PRN PO DECREASED GLUCOSE; Start 08/02/16 at 09:00 Dextrose (D50w Syringe) 25 ml Q15M PRN IV DECREASED GLUCOSE Last administered on 08/16/16 06:30; Admin Dose 25 ML; Start 08/02/16 at 09:00 Dextrose (D50w Syringe) 50 ml Q15M PRN IV DECREASED GLUCOSE; Start 08/02/16 at 09:00 Glucagon (Glucagen) 1 mg Q15M PRN IM DECREASED GLUCOSE; Start 08/02/16 at 09:00 Glucose (Glutose) 15 gm Q15M PRN BUCCAL DECREASED GLUCOSE; Start 08/02/16 at 09: 00 Calcium Carbonate (Ca Carbonate) 1,250 mg Q12 NGT Last administered on 08:31; Admin Dose 1,250 MG; Start 08/11/16 at 09:00 IV Flush (NS 10 ml) 10 ml PRN PRN IV FLUSH LINE; Start 08/11/16 at 20:00 Hydralazine HCl (Apresoline) 10 mg Q4H PRN IV SBP >160 Last administered on 23:33; Admin Dose 10 MG; Start 08/13/16 at 03:30 Hydromorphone HCl (Dilaudid) 1 mg Q4H PRN IV PAIN Last administered on 18:47; Admin Dose 1 MG; Start 08/16/16 at 08:30 Levothyroxine Sodium (Synthroid) 175 mcg DAILY@06 PO Last administered on 05:21; Admin Dose 175 MCG; Start 08/18/16 at 06:00 Pantoprazole (Protonix Tab) 40 mg DAILY@06 PO Last administered on 08/26/16 05 :20; Admin Dose 40 MG; Start 08/18/16 at 06:00 Enoxaparin Sodium (Lovenox) 110 mg Q12 SC Last administered on 08/26/16 08:35 ; Admin Dose 110 MG; Start 08/17/16 at 21:00 Doxazosin Mesylate (Cardura) 4 mg HS PO Last administered on 08/25/16 20:40; Admin Dose 4 MG; Start 08/19/16 at 21:00 Lorazepam (Ativan) 0.5 mg Q8H PRN PO ANXIETY; Start 08/19/16 at 14:00 Losartan Potassium (Cozaar) 50 mg DAILY PO Last administered on 08/26/16 08:32 ; Admin Dose 50 MG; Start 08/20/16 at 09:00 Amlodipine Besylate (Norvasc) 5 mg BID PO Last administered on 08/26/16 08:33 ; Admin Dose 5 MG; Start 08/23/16 at 21:00 Furosemide (Lasix) 40 mg BID PO Last administered on 08/26/16 08:32; Admin Dose 40 MG; Start 08/25/16 at 09:00 Polyethylene Glycol (Miralax) 17 gm BID PO Last administered on 08/26/16 08:32 ; Admin Dose 17 GM; Start 08/26/16 at 09:00 Bisacodyl (Dulcolax) 10 mg DAILY PRN PO CONSTIPATION Last administered on t 16:27; Admin Dose 10 MG; Start 08/26/16 at 08:00 SHEYLA HDZ MD Aug 26, 2016 17:46
[2016-08-26 19:48] VITALS: BP 131/67; RESP 18
[2016-08-26] MEDS: DOXAZOSIN 4 MG TAB PO SCH (22:01)
[2016-08-27] MEDS: PANTOPRAZOLE (EC) 40 MG TAB PO SCH (06:00)
[2016-08-27] MEDS: LEVOTHYROXINE 175 MCG TAB PO SCH (06:00)
[2016-08-27 06:34] LABS: CALCIUM 10.4 mg/dl (8.4-10.2); CREATININE 1.05 mg/dl (0.61-1.24); MAGNESIUM 1.8 mg/dl (1.7-2.5); PHOSPHORUS 4.3 mg/dl (2.5-4.9)
[2016-08-27 07:43] VITALS: BP 155/91; RESP 18
[2016-08-27] MEDS: INSULIN ASPART [NOVOLOG] 3 ML PEN SC SCH ×4 (08:15→21:00)
[2016-08-27] MEDS: CA CARBONATE (250 MG/ML) 5ML CUP NGT SCH ×2 (08:15→21:29)
[2016-08-27] MEDS: POLYETHYLENE GLYCOL 17 GM PACKET PO SCH ×2 (08:16→21:29)
[2016-08-27] MEDS: FUROSEMIDE 40 MG TAB PO SCH ×2 (08:16→21:30)
[2016-08-27] MEDS: LOSARTAN 50 MG TAB PO SCH (08:17)
[2016-08-27] MEDS: AMLODIPINE 5 MG TAB PO SCH ×2 (08:17→21:30)
[2016-08-27] MEDS: ENOXAPARIN 60 MG/0.6 ML SYG SC SCH ×2 (08:21→21:36)
--- NOTE | 2016-08-27 08:21 | PN ---
DATE: 08/25/2016 SUBJECTIVE: The patient is stable. No acute events overnight. No fevers, chills, nausea or vomiti ng. No shortness of breath. The patient remains on 2 liters nasal cannula. No other events noted. OBJECTIVE: VITAL SIGNS: Blood pressure 143/85, respirations 20, pulse 91, temperature 99.2. HEENT: Head is normocephalic. NECK: Supple. HEART: Regular rate. LUNGS: Showed diminished breath sounds at the base. ABDOMEN: Soft, nontender to palpation. No rebound or guarding. EXTREMITIES: Negative for clubbing or cyanosis. No edema. DERMATOLOGIC: No rashes. MUSCULOSKELETAL: Have no joint effusion. NEUROLOGIC: No change in exam. MEDICATIONS: The patient's medications have been reviewed. LABORATORY DATA: Currently pending. IMAGING: Chest x-ray on 08/24/2016 shows slightly worse pulmonary edema. ASSESSMENT AND PLAN: 1. Nonoliguric acute kidney injury, with unknown baseline creatinine. Etiology is secondary to acu te tubular necrosis. The patient is status post hemodialysis. Renal function is improved. Continu e the current treatment plan, supportive care, renally dose all medications. 2. Acute congestive heart failure exacerbation. The patient's repeat chest x-ray shows worsening p ulmonary edema. Will increase Lasix to 40 mg b.i.d. and monitor renal function closely. 3. Mineral bone disorder. Continue to monitor calcium and phos levels. 4. Anemia. Continue to monitor H and H levels. 5. Acute hypoxemic respiratory failure secondary to pneumonia and congestive heart failure. The pa tient is clinically improving. Continue medical management. 6. Sepsis. Status post shock. The patient is completing an antibiotic course. 7. Hypothyroidism. Continue Synthroid. 8. Diabetes. Continue Accu-Cheks and insulin sliding scale. 9. History of ETOH abuse. 10. Status post cardiopulmonary arrest. Dictated By: BALDOMERO TOVAR/NTS Conf#: [id number] DID#: [id number]
[2016-08-27] MEDS: ALBUTEROL/IPRATROPIUM (NEB) 3 ML AMP HHN SCH ×3 (08:25→20:00)
--- NOTE | 2016-08-27 08:28 | CONS ---
Date/Time of Note Date/Time of Note DATE: 08/27/16 TIME: 08:26 Consultation Date/Type/Reason Admit Date/Time August 01, 2016 at 00:50 Initial Consult Date 08/01/16 Type of Consultation: Pain control 24 HR Interval Summary Free Text/Dictation Postdated note for August 25 . Doing well out of the intensive care unit very good support system from family and friends. Constitutional: improved, no complaints Exam/Review of Systems Vital Signs Vitals Vital Signs Date Time Temp Pulse Resp B/P Pulse Ox O2 Delivery O2 Flow Rate FiO2 08/27/16 07:43 98.8 79 18 155/91 98 08/27/16 02:00 2.0 08/26/16 21:00 Nasal Cannula Intake and Output 08/26/16 08/26/16 08/27/16 15:00 23:00 07:00 Intake Total 300 ml 400 ml Output Total 800 ml 1100 ml Balance -500 ml -700 ml Results Result Diagram: 08/26/16 0510 08/27/16 0512 Results 24 hrs Laboratory Tests Test 08/26/16 08:27 08/26/16 12:49 08/26/16 17:51 08/26/16 22:06 Bedside Glucose 85 97 90 93 Test 08/27/16 05:12 Sodium Level 138 Potassium Level 4.0 Chloride Level 103 Carbon Dioxide Level 27 Anion Gap 12 Blood Urea Nitrogen 19 Creatinine 1.05 Glucose Level 79 Calcium Level 10.4 H Phosphorus Level 4.3 Magnesium Level 1.8 Medications Medications Current Medications Ondansetron HCl (Zofran Inj) 4 mg Q6H PRN IV NAUSEA AND/OR VOMITING; Start at 03:00 Metoclopramide HCl (Reglan) 10 mg Q6H PRN IV NAUSEA AND/OR VOMITING; Start at 03:00 Acetaminophen (Tylenol Tab) 650 mg Q6H PRN PO PAIN LEVEL 1-3 OR FEVER Last administered on 08/26/16t 16:27; Admin Dose 650 MG; Start 08/01/16 at 03:00 Acetaminophen (Tylenol Supp) 650 mg Q4H PRN [place] PAIN LEVEL 1-3 OR FEVER; Start 08/01/16 at 06:30 Miscellaneous Information 1 ea NOTE XX ; Start 08/02/16 at 09:00 Glucose (Glutose) 15 gm Q15M PRN PO DECREASED GLUCOSE; Start 08/02/16 at 09:00 Glucose (Glutose) 22.5 gm Q15M PRN PO DECREASED GLUCOSE; Start 08/02/16 at 09:00 Dextrose (D50w Syringe) 25 ml Q15M PRN IV DECREASED GLUCOSE Last administered on 08/16/16 06:30; Admin Dose 25 ML; Start 08/02/16 at 09:00 Dextrose (D50w Syringe) 50 ml Q15M PRN IV DECREASED GLUCOSE; Start 08/02/16 at 09:00 Glucagon (Glucagen) 1 mg Q15M PRN IM DECREASED GLUCOSE; Start 08/02/16 at 09:00 Glucose (Glutose) 15 gm Q15M PRN BUCCAL DECREASED GLUCOSE; Start 08/02/16 at 09: 00 Calcium Carbonate (Ca Carbonate) 1,250 mg Q12 NGT Last administered on 08:15; Admin Dose 1,250 MG; Start 08/11/16 at 09:00 IV Flush (NS 10 ml) 10 ml PRN PRN IV FLUSH LINE; Start 08/11/16 at 20:00 Hydralazine HCl (Apresoline) 10 mg Q4H PRN IV SBP >160 Last administered on 23:33; Admin Dose 10 MG; Start 08/13/16 at 03:30 Hydromorphone HCl (Dilaudid) 1 mg Q4H PRN IV PAIN Last administered on 18:47; Admin Dose 1 MG; Start 08/16/16 at 08:30 Levothyroxine Sodium (Synthroid) 175 mcg DAILY@06 PO Last administered on 06:00; Admin Dose 175 MCG; Start 08/18/16 at 06:00 Pantoprazole (Protonix Tab) 40 mg DAILY@06 PO Last administered on 08/27/16 06 :00; Admin Dose 40 MG; Start 08/18/16 at 06:00 Enoxaparin Sodium (Lovenox) 110 mg Q12 SC Last administered on 08/27/16 08:21 ; Admin Dose 110 MG; Start 08/17/16 at 21:00 Doxazosin Mesylate (Cardura) 4 mg HS PO Last administered on 08/26/16 22:01; Admin Dose 4 MG; Start 08/19/16 at 21:00 Lorazepam (Ativan) 0.5 mg Q8H PRN PO ANXIETY; Start 08/19/16 at 14:00 Losartan Potassium (Cozaar) 50 mg DAILY PO Last administered on 08/27/16 08:17 ; Admin Dose 50 MG; Start 08/20/16 at 09:00 Amlodipine Besylate (Norvasc) 5 mg BID PO Last administered on 08/27/16 08:17 ; Admin Dose 5 MG; Start 08/23/16 at 21:00 Furosemide (Lasix) 40 mg BID PO Last administered on 08/27/16 08:16; Admin Dose 40 MG; Start 08/25/16 at 09:00 Polyethylene Glycol (Miralax) 17 gm BID PO Last administered on 08/27/16 08:16 ; Admin Dose 17 GM; Start 08/26/16 at 09:00 Bisacodyl (Dulcolax) 10 mg DAILY PRN PO CONSTIPATION Last administered on 16:27; Admin Dose 10 MG; Start 08/26/16 at 08:00 ARMIN ELIZABETH Aug 27, 2016 08:28
--- NOTE | 2016-08-27 10:10 | PN ---
Date/Time of Note Date/Time of Note DATE: 08/27/16 TIME: 10:10 Assessment/Plan VTE Prophylaxis VTE Prophylaxis Intervention: LMWH Lines/Catheters IV [facility] Type [facility]from [facility] Urinary Cath still in place: Yes Reason Cath still needed: other (indicate) Assessment/Plan Chief Complaint/Hosp Course 1. Status post PEA cardiac arrest secondary to severe metabolic acidosis. The patient is being followed by Cardiology. As per Cardiology, there is no cardiac etiology to suggest the cardiac arrest. 2. Acute on chronic diastolic heart faded. Improving with diuresis. 3. Acute kidney injury that required temporary hemodialysis. Currently, off hemodialysis. Being followed by Nephrology. 4. Essential hypertension. Continue antihypertensives. 5. Acute encephalopathy secondary to #1, improving. 6. Acute respiratory failure with ARDS and pulmonary edema, status post mechanical ventilation, currently extubated. 7. Status post sepsis, probably secondary to underlying aspiration pneumonia. 8. Hypothyroidism, severe. Continue Synthroid. 9. Debility. Status post evaluation by physical therapy. Physical therapy is recommending [facility] facility versus acute rehabilitation unit for further rehabilitation. 10. Normocytic normochromic anemia. Continue to monitor H and H closely. 11. Diabetes mellitus. Hemoglobin A1c 5.0. Continue sliding scale insulin. 12. Occlusive thrombosis of the left cephalic vein. On therapeutic anticoagulation. 13. Fluid, electrolytes, and nutrition. Mechanical soft diet. Aspiration precautions. 14. DVT prophylaxis. Subcutaneous Lovenox. 15. Gastrointestinal prophylaxis. Proton pump inhibitors. Plan. Await placement. Continue current management. Case discussed with Dr. Tello. Problems: Subjective 24 Hr Interval Summary Free Text/Dictation Denies any pain. Exam/Review of Systems Vital Signs Vitals Vital Signs Date Time Temp Pulse Resp B/P Pulse Ox O2 Delivery O2 Flow Rate FiO2 08/27/16 08:26 92 17 93 Nasal Cannula 2.0 08/27/16 07:43 98.8 155/91 Intake and Output 08/26/16 08/26/16 08/27/16 15:00 23:00 07:00 Intake Total 300 ml 400 ml Output Total 800 ml 1100 ml Balance -500 ml -700 ml Exam GENERAL: This is an obese male lying in bed in no apparent distress. HEENT: Head normocephalic and atraumatic. Eyes: Anicteric sclerae. Conjunctivae clear. ENT: Nasal septum is midline. Oral mucosa is dry. NECK: Supple. No JVD noticed. RESPIRATORY: Bilaterally diminished breath sounds. No adventitious breath sounds. No use of accessory muscles of respiration. CARDIAC: Regular rate and rhythm. S1 and S2 heard. ABDOMEN: Soft, nontender and nondistended. Bowel sounds positive in all 4 quadrants. GENITOURINARY: Deferred. EXTREMITIES: No cyanosis, no clubbing. Bilateral lower extremity 1 to 2+ pitting edema. Peripheral pulses are diminished. NEUROLOGIC: The patient is awake, alert, and oriented. Results Result Diagram: 08/26/16 0510 08/27/16 0512 Results 24 hrs Laboratory Tests Test 08/26/16 12:49 08/26/16 17:51 08/26/16 22:06 08/27/16 05:12 Bedside Glucose 97 90 93 Sodium Level 138 Potassium Level 4.0 Chloride Level 103 Carbon Dioxide Level 27 Anion Gap 12 Blood Urea Nitrogen 19 Creatinine 1.05 Glucose Level 79 Calcium Level 10.4 H Phosphorus Level 4.3 Magnesium Level 1.8 Test 08/27/16 08:27 Bedside Glucose 79 Medications Medications Current Medications Ondansetron HCl (Zofran Inj) 4 mg Q6H PRN IV NAUSEA AND/OR VOMITING; Start at 03:00 Metoclopramide HCl (Reglan) 10 mg Q6H PRN IV NAUSEA AND/OR VOMITING; Start at 03:00 Acetaminophen (Tylenol Tab) 650 mg Q6H PRN PO PAIN LEVEL 1-3 OR FEVER Last administered on 08/26/16 16:27; Admin Dose 650 MG; Start 08/01/16 at 03:00 Acetaminophen (Tylenol Supp) 650 mg Q4H PRN [place] PAIN LEVEL 1-3 OR FEVER; Start 08/01/16 at 06:30 Miscellaneous Information 1 ea NOTE XX ; Start 08/02/16 at 09:00 Glucose (Glutose) 15 gm Q15M PRN PO DECREASED GLUCOSE; Start 08/02/16 at 09:00 Glucose (Glutose) 22.5 gm Q15M PRN PO DECREASED GLUCOSE; Start 08/02/16 at 09:00 Dextrose (D50w Syringe) 25 ml Q15M PRN IV DECREASED GLUCOSE Last administered on 08/16/16 06:30; Admin Dose 25 ML; Start 08/02/16 at 09:00 Dextrose (D50w Syringe) 50 ml Q15M PRN IV DECREASED GLUCOSE; Start 08/02/16 at 09:00 Glucagon (Glucagen) 1 mg Q15M PRN IM DECREASED GLUCOSE; Start 08/02/16 at 09:00 Glucose (Glutose) 15 gm Q15M PRN BUCCAL DECREASED GLUCOSE; Start 08/02/16 at 09: 00 Calcium Carbonate (Ca Carbonate) 1,250 mg Q12 NGT Last administered on 08:15; Admin Dose 1,250 MG; Start 08/11/16 at 09:00 IV Flush (NS 10 ml) 10 ml PRN PRN IV FLUSH LINE; Start 08/11/16 at 20:00 Hydralazine HCl (Apresoline) 10 mg Q4H PRN IV SBP >160 Last administered on 23:33; Admin Dose 10 MG; Start 08/13/16 at 03:30 Hydromorphone HCl (Dilaudid) 1 mg Q4H PRN IV PAIN Last administered on 18:47; Admin Dose 1 MG; Start 08/16/16 at 08:30 Levothyroxine Sodium (Synthroid) 175 mcg DAILY@06 PO Last administered on 06:00; Admin Dose 175 MCG; Start 08/18/16 at 06:00 Pantoprazole (Protonix Tab) 40 mg DAILY@06 PO Last administered on 08/27/16 06 :00; Admin Dose 40 MG; Start 08/18/16 at 06:00 Enoxaparin Sodium (Lovenox) 110 mg Q12 SC Last administered on 08/27/16 08:21 ; Admin Dose 110 MG; Start 08/17/16 at 21:00 Doxazosin Mesylate (Cardura) 4 mg HS PO Last administered on 08/26/16 22:01; Admin Dose 4 MG; Start 08/19/16 at 21:00 Lorazepam (Ativan) 0.5 mg Q8H PRN PO ANXIETY; Start 08/19/16 at 14:00 Losartan Potassium (Cozaar) 50 mg DAILY PO Last administered on 08/27/16 08:17 ; Admin Dose 50 MG; Start 08/20/16 at 09:00 Amlodipine Besylate (Norvasc) 5 mg BID PO Last administered on 08/27/16 08:17 ; Admin Dose 5 MG; Start 08/23/16 at 21:00 Furosemide (Lasix) 40 mg BID PO Last administered on 08/27/16 08:16; Admin Dose 40 MG; Start 08/25/16 at 09:00 Polyethylene Glycol (Miralax) 17 gm BID PO Last administered on 08/27/16 08:16 ; Admin Dose 17 GM; Start 08/26/16 at 09:00 Bisacodyl (Dulcolax) 10 mg DAILY PRN PO CONSTIPATION Last administered on 16:27; Admin Dose 10 MG; Start 08/26/16 at 08:00 SRINIVASA HUNT NP Aug 27, 2016 10:10
--- NOTE | 2016-08-27 13:09 | PN ---
DATE: 08/27/2016 SUBJECTIVE: The patient is stable. No events overnight. No fevers, chills, nausea, vomiting, no s hortness of breath. OBJECTIVE: VITAL SIGNS: Blood pressure is 155/91, respirations 18, pulse 79, temperature 98.8. HEENT: Head is normocephalic. NECK: Supple. HEART: Regular rate. LUNGS: Show diminished breath sounds at base. ABDOMEN: Soft, nontender to palpation. No rebound or guarding. EXTREMITIES: Negative for clubbing, cyanosis, no edema. DERMATOLOGIC: No rashes. MUSCULOSKELETAL: No joint effusions. NEUROLOGIC: No change in exam. MEDICATIONS: The patient's medications have been reviewed. LABORATORY DATA: Shows a BMP within normal limits. Calcium 10.5. White count 8.1, hemoglobin 8.5, hematocrit 26.6, platelet count 377. ASSESSMENT AND PLAN: 1. Nonoliguric acute kidney injury with unknown baseline creatinine. Etiology secondary to acute t ubular necrosis. The patient is status post hemodialysis. Patient's renal function has improved. Continue current treatment plan, supportive care, renally dose medications. 2. Acute congestive heart failure exacerbation. The patient is clinically improving. Continue cur rent diuretic regimen. Follow up with cardiology. 3. Mineral bone disorder. Continue to monitor calcium and phosphorus levels. 4. Anemia. Continue to monitor hemoglobin and hematocrit levels. 5. Acute hypoxemic respiratory failure secondary to pneumonia and congestive heart failure. The pa tient clinically improving. Continue medical management. Continue supplemental oxygen. 6. Sepsis, status post shock. Continue current antibiotic course. 7. Hypothyroidism. Continue Synthroid. 8. Diabetes, continue Accu-Cheks and sliding scale. 9. History of ETOH abuse. 10. Status post cardiopulmonary arrest. Dictated By: BALDOMERO TOVAR/NTS Conf#: [id number] DID#: [id number]
--- NOTE | 2016-08-27 17:00 | CONS ---
Date/Time of Note Date/Time of Note DATE: 08/27/16 TIME: 16:59 Assessment/Plan Assessment/Plan Chief Complaint/Hosp Course Assessment: Status post PEA cardiac arrest - secondary to severe metabolic acidosis, no ventricular arrhythmia or EKG changes to suggest primary cardiac etiology Acute on chronic diastolic heart failure - improved with diuresis Acute hypoxic respiratory failure - improved and extubated 08/15/2016 Status post septic shock - resolved Status post cute kidney injury - status post intermittent hemodialysis, renal function now back to normal Hypertension Hypothyroidism Recommendations: -echocardiogram showed LVEF 60%, grade 1 diastolic dysfunction -continue amlodipine 5mg BID and losartan 50mg daily -continue Lasix 40mg PO BID -consider cardiac stress testing as outpatient Problems: Consultation Date/Type/Reason Admit Date/Time August 01, 2016 at 00:50 Initial Consult Date 08/01/16 Type of Consultation: Cardiology 24 HR Interval Summary Free Text/Dictation No acute events. Denies chest pain or shortness of breath. Detailed Summary Additional Comments 14 point review of systems without changes. Exam/Review of Systems Vital Signs Vitals Vital Signs Date Time Temp Pulse Resp B/P Pulse Ox O2 Delivery O2 Flow Rate FiO2 08/27/16 14:12 9 18 94 Nasal Cannula 2.0 08/27/16 07:43 98.8 155/91 Intake and Output 08/26/16 08/26/16 08/27/16 15:00 23:00 07:00 Intake Total 300 ml 400 ml Output Total 800 ml 1100 ml Balance -500 ml -700 ml Exam Constitutional: alert, oriented Psych: no complaints Head: atraumatic, normocephalic Neck: No jvd Respiratory: clear to auscultation, No crackles/rales Cardiovascular: regular rate and rhythm, No edema Gastrointestinal: non-tender, soft Neurological: nl mental status, nl speech Results Result Diagram: 08/26/16 0510 08/27/16 0512 Results 24 hrs Laboratory Tests Test 08/26/16 17:51 08/26/16 22:06 08/27/16 05:12 08/27/16 08:27 Bedside Glucose 90 93 79 Sodium Level 138 Potassium Level 4.0 Chloride Level 103 Carbon Dioxide Level 27 Anion Gap 12 Blood Urea Nitrogen 19 Creatinine 1.05 Glucose Level 79 Calcium Level 10.4 H Phosphorus Level 4.3 Magnesium Level 1.8 Test 08/27/16 12:34 Bedside Glucose 91 Medications Medications Current Medications Ondansetron HCl (Zofran Inj) 4 mg Q6H PRN IV NAUSEA AND/OR VOMITING; Start at 03:00 Metoclopramide HCl (Reglan) 10 mg Q6H PRN IV NAUSEA AND/OR VOMITING; Start at 03:00 Acetaminophen (Tylenol Tab) 650 mg Q6H PRN PO PAIN LEVEL 1-3 OR FEVER Last administered on 08/26/16 16:27; Admin Dose 650 MG; Start 08/01/16 at 03:00 Acetaminophen (Tylenol Supp) 650 mg Q4H PRN [place] PAIN LEVEL 1-3 OR FEVER; Start 08/01/16 at 06:30 Miscellaneous Information 1 ea NOTE XX ; Start 08/02/16 at 09:00 Glucose (Glutose) 15 gm Q15M PRN PO DECREASED GLUCOSE; Start 08/02/16 at 09:00 Glucose (Glutose) 22.5 gm Q15M PRN PO DECREASED GLUCOSE; Start 08/02/16 at 09:00 Dextrose (D50w Syringe) 25 ml Q15M PRN IV DECREASED GLUCOSE Last administered on 08/16/16 06:30; Admin Dose 25 ML; Start 08/02/16 at 09:00 Dextrose (D50w Syringe) 50 ml Q15M PRN IV DECREASED GLUCOSE; Start 08/02/16 at 09:00 Glucagon (Glucagen) 1 mg Q15M PRN IM DECREASED GLUCOSE; Start 08/02/16 at 09:00 Glucose (Glutose) 15 gm Q15M PRN BUCCAL DECREASED GLUCOSE; Start 08/02/16 at 09: 00 Calcium Carbonate (Ca Carbonate) 1,250 mg Q12 NGT Last administered on 08:15; Admin Dose 1,250 MG; Start 08/11/16 at 09:00 IV Flush (NS 10 ml) 10 ml PRN PRN IV FLUSH LINE; Start 08/11/16 at 20:00 Hydralazine HCl (Apresoline) 10 mg Q4H PRN IV SBP >160 Last administered on 23:33; Admin Dose 10 MG; Start 08/13/16 at 03:30 Hydromorphone HCl (Dilaudid) 1 mg Q4H PRN IV PAIN Last administered on 18:47; Admin Dose 1 MG; Start 08/16/16 at 08:30 Levothyroxine Sodium (Synthroid) 175 mcg DAILY@06 PO Last administered on 06:00; Admin Dose 175 MCG; Start 08/18/16 at 06:00 Pantoprazole (Protonix Tab) 40 mg DAILY@06 PO Last administered on 08/27/16 06 :00; Admin Dose 40 MG; Start 08/18/16 at 06:00 Enoxaparin Sodium (Lovenox) 110 mg Q12 SC Last administered on 08/27/16 08:21 ; Admin Dose 110 MG; Start 08/17/16 at 21:00 Doxazosin Mesylate (Cardura) 4 mg HS PO Last administered on 08/26/16 22:01; Admin Dose 4 MG; Start 08/19/16 at 21:00 Lorazepam (Ativan) 0.5 mg Q8H PRN PO ANXIETY; Start 08/19/16 at 14:00 Losartan Potassium (Cozaar) 50 mg DAILY PO Last administered on 08/27/16 08:17 ; Admin Dose 50 MG; Start 08/20/16 at 09:00 Amlodipine Besylate (Norvasc) 5 mg BID PO Last administered on 08/27/16 08:17 ; Admin Dose 5 MG; Start 08/23/16 at 21:00 Furosemide (Lasix) 40 mg BID PO Last administered on 08/27/16 08:16; Admin Dose 40 MG; Start 08/25/16 at 09:00 Polyethylene Glycol (Miralax) 17 gm BID PO Last administered on 08/27/16 08:16 ; Admin Dose 17 GM; Start 08/26/16 at 09:00 Bisacodyl (Dulcolax) 10 mg DAILY PRN PO CONSTIPATION Last administered on 16:27; Admin Dose 10 MG; Start 08/26/16 at 08:00 SHEYLA HDZ MD Aug 27, 2016 16:59
[2016-08-27 19:51] VITALS: BP 145/82; RESP 18
[2016-08-27] MEDS: DOXAZOSIN 4 MG TAB PO SCH (21:31)
[2016-08-28 05:20] LABS: ADD SCAN DIFF NO
[2016-08-28 05:24] LABS: BASOPHILS % 0.4 % (0.0-2.0); EOSINOPHILS # 0.6 10^3/ul (0.0-0.5); HEMOGLOBIN 8.5 g/dl (14.0-18.0); LYMPHOCYTES # 2.1 10^3/ul (0.8-2.9); LYMPHOCYTES % 27.1 % (15.0-51.0); MEAN CORPUSCULAR HEMOGLOBIN 32.2 pg (29.0-33.0); MEAN CORPUSCULAR HGB CONC 32.7 g/dl (32.0-37.0); MEAN CORPUSCULAR VOLUME 98.5 fl (82.0-101.0); MEAN PLATELET VOLUME 10.3 fl (7.4-10.4); MONOCYTES % 13.2 % (0.0-11.0); NEUTROPHIL # 3.9 10^3/ul (1.6-7.5); NEUTROPHILS % 50.8 % (39.0-77.0); PLATELET COUNT 474 10^3/UL (140-415); RED BLOOD COUNT 2.64 10^6/ul (4.70-6.10); RED CELL DISTRIBUTION WIDTH 14.9 % (11.5-14.5); WHITE BLOOD COUNT 7.6 10^3/ul (4.8-10.8)
[2016-08-28] MEDS: LEVOTHYROXINE 175 MCG TAB PO SCH (05:38)
[2016-08-28] MEDS: PANTOPRAZOLE (EC) 40 MG TAB PO SCH (05:38)
[2016-08-28 05:56] LABS: CALCIUM 10.1 mg/dl (8.4-10.2); CREATININE 1.05 mg/dl (0.61-1.24); POTASSIUM 4.1 mmol/L (3.5-5.1)
--- NOTE | 2016-08-28 07:27 | PN ---
Date/Time of Note Date/Time of Note DATE: 08/28/16 TIME: 07:26 Assessment/Plan VTE Prophylaxis VTE Prophylaxis Intervention: LMWH Lines/Catheters [facility] Saline Lock Urinary Cath still in place: Yes Reason Cath still needed: other (indicate) Assessment/Plan Chief Complaint/Hosp Course 1. Status post PEA cardiac arrest secondary to severe metabolic acidosis. The patient is being followed by Cardiology. As per Cardiology, there is no cardiac etiology to suggest the cardiac arrest. 2. Acute on chronic diastolic heart faded. Improving with diuresis. 3. Acute kidney injury that required temporary hemodialysis. Currently, off hemodialysis. Being followed by Nephrology. 4. Essential hypertension. Continue antihypertensives. 5. Acute encephalopathy secondary to #1, improving. 6. Acute respiratory failure with ARDS and pulmonary edema, status post mechanical ventilation, currently extubated. 7. Status post sepsis, probably secondary to underlying aspiration pneumonia. 8. Hypothyroidism, severe. Continue Synthroid. 9. Debility. Status post evaluation by physical therapy. Physical therapy is [facility] versus acute rehabilitation unit for further rehabilitation. 10. Normocytic normochromic anemia. Continue to monitor H and H closely. 11. Diabetes mellitus. Hemoglobin A1c 5.0. Continue sliding scale insulin. 12. Occlusive thrombosis of the left cephalic vein. On therapeutic anticoagulation. 13. Fluid, electrolytes, and nutrition. Mechanical soft diet. Aspiration precautions. 14. DVT prophylaxis. Subcutaneous Lovenox. 15. Gastrointestinal prophylaxis. Proton pump inhibitors. Plan. Await placement. Continue current management. Case discussed with Dr. Tello. Problems: Subjective 24 Hr Interval Summary Free Text/Dictation Vital signs stable. Exam/Review of Systems Vital Signs Vitals Vital Signs Date Time Temp Pulse Resp B/P Pulse Ox O2 Delivery O2 Flow Rate FiO2 08/28/16 02:21 99 2.0 08/27/16 23:47 Nasal Cannula 08/27/16 22:26 85 17 08/27/16 19:51 99.0 145/82 Intake and Output 08/27/16 08/27/16 08/28/16 15:00 23:00 07:00 Intake Total 1080 ml Output Total 1300 ml Balance -220 ml Exam GENERAL: This is an obese male lying in bed in no apparent distress. HEENT: Head normocephalic and atraumatic. Eyes: Anicteric sclerae. Conjunctivae clear. ENT: Nasal septum is midline. Oral mucosa is dry. NECK: Supple. No JVD noticed. RESPIRATORY: Bilaterally diminished breath sounds. No adventitious breath sounds. No use of accessory muscles of respiration. CARDIAC: Regular rate and rhythm. S1 and S2 heard. ABDOMEN: Soft, nontender and nondistended. Bowel sounds positive in all 4 quadrants. GENITOURINARY: Deferred. EXTREMITIES: No cyanosis, no clubbing. Bilateral lower extremity 1 to 2+ pitting edema. Peripheral pulses are diminished. NEUROLOGIC: The patient is awake, alert, and oriented. Results Result Diagram: 08/28/16 0505 08/28/16 0500 Results 24 hrs Laboratory Tests Test 08/27/16 08:27 08/27/16 12:34 08/27/16 17:35 08/27/16 21:20 Bedside Glucose 79 91 81 87 Test 08/28/16 05:00 08/28/16 05:05 Sodium Level 134 L Potassium Level 4.1 Chloride Level 100 Carbon Dioxide Level 29 Anion Gap 9 Blood Urea Nitrogen 17 Creatinine 1.05 Glucose Level 83 Calcium Level 10.1 White Blood Count 7.6 Red Blood Count 2.64 L Hemoglobin 8.5 L Hematocrit 26.0 L Mean Corpuscular Volume 98.5 Mean Corpuscular Hemoglobin 32.2 Mean Corpuscular Hemoglobin Concent 32.7 Red Cell Distribution Width 14.9 H Platelet Count 474 #H Mean Platelet Volume 10.3 Neutrophils % 50.8 Lymphocytes % 27.1 Monocytes % 13.2 H Eosinophils % 8.0 H Basophils % 0.4 Nucleated Red Blood Cells % 0.0 Neutrophils # 3.9 Lymphocytes # 2.1 Monocytes # 1.0 H Eosinophils # 0.6 H Basophils # 0.0 Nucleated Red Blood Cells # 0.0 Medications Medications Current Medications Ondansetron HCl (Zofran Inj) 4 mg Q6H PRN IV NAUSEA AND/OR VOMITING; Start at 03:00 Metoclopramide HCl (Reglan) 10 mg Q6H PRN IV NAUSEA AND/OR VOMITING; Start at 03:00 Acetaminophen (Tylenol Tab) 650 mg Q6H PRN PO PAIN LEVEL 1-3 OR FEVER Last administered on 08/26/16t 16:27; Admin Dose 650 MG; Start 08/01/16 at 03:00 Acetaminophen (Tylenol Supp) 650 mg Q4H PRN [place] PAIN LEVEL 1-3 OR FEVER; Start 08/01/16 at 06:30 Miscellaneous Information 1 ea NOTE XX ; Start 08/02/16 at 09:00 Glucose (Glutose) 15 gm Q15M PRN PO DECREASED GLUCOSE; Start 08/02/16 at 09:00 Glucose (Glutose) 22.5 gm Q15M PRN PO DECREASED GLUCOSE; Start 08/02/16 at 09:00 Dextrose (D50w Syringe) 25 ml Q15M PRN IV DECREASED GLUCOSE Last administered on 08/16/16 06:30; Admin Dose 25 ML; Start 08/02/16 at 09:00 Dextrose (D50w Syringe) 50 ml Q15M PRN IV DECREASED GLUCOSE; Start 08/02/16 at 09:00 Glucagon (Glucagen) 1 mg Q15M PRN IM DECREASED GLUCOSE; Start 08/02/16 at 09:00 Glucose (Glutose) 15 gm Q15M PRN BUCCAL DECREASED GLUCOSE; Start 08/02/16 at 09: 00 Calcium Carbonate (Ca Carbonate) 1,250 mg Q12 NGT Last administered on 21:29; Admin Dose 1,250 MG; Start 08/11/16 at 09:00 IV Flush (NS 10 ml) 10 ml PRN PRN IV FLUSH LINE; Start 08/11/16 at 20:00 Hydralazine HCl (Apresoline) 10 mg Q4H PRN IV SBP >160 Last administered on 23:33; Admin Dose 10 MG; Start 08/13/16 at 03:30 Hydromorphone HCl (Dilaudid) 1 mg Q4H PRN IV PAIN Last administered on 18:47; Admin Dose 1 MG; Start 08/16/16 at 08:30 Levothyroxine Sodium (Synthroid) 175 mcg DAILY@06 PO Last administered on 05:38; Admin Dose 175 MCG; Start 08/18/16 at 06:00 Pantoprazole (Protonix Tab) 40 mg DAILY@06 PO Last administered on 08/28/16 05 :38; Admin Dose 40 MG; Start 08/18/16 at 06:00 Enoxaparin Sodium (Lovenox) 110 mg Q12 SC Last administered on 08/27/16 21:36 ; Admin Dose 110 MG; Start 08/17/16 at 21:00 Doxazosin Mesylate (Cardura) 4 mg HS PO Last administered on 08/27/16 21:31; Admin Dose 4 MG; Start 08/19/16 at 21:00 Lorazepam (Ativan) 0.5 mg Q8H PRN PO ANXIETY; Start 08/19/16 at 14:00 Losartan Potassium (Cozaar) 50 mg DAILY PO Last administered on 08/27/16 08:17 ; Admin Dose 50 MG; Start 08/20/16 at 09:00 Amlodipine Besylate (Norvasc) 5 mg BID PO Last administered on 08/27/16 21:30 ; Admin Dose 5 MG; Start 08/23/16 at 21:00 Furosemide (Lasix) 40 mg BID PO Last administered on 08/27/16 21:30; Admin Dose 40 MG; Start 08/25/16 at 09:00 Polyethylene Glycol (Miralax) 17 gm BID PO Last administered on 08/27/16 21:29 ; Admin Dose 17 GM; Start 08/26/16 at 09:00 Bisacodyl (Dulcolax) 10 mg DAILY PRN PO CONSTIPATION Last administered on 16:27; Admin Dose 10 MG; Start 08/26/16 at 08:00 SRINIVASA HUNT NP Aug 28, 2016 07:27
[2016-08-28 07:47] LABS: MAGNESIUM 1.8 mg/dl (1.7-2.5); PHOSPHORUS 4.1 mg/dl (2.5-4.9)
[2016-08-28 08:02] VITALS: BP 127/83; RESP 18
[2016-08-28] MEDS: INSULIN ASPART [NOVOLOG] 3 ML PEN SC SCH ×4 (08:15→20:53)
[2016-08-28] MEDS: LOSARTAN 50 MG TAB PO SCH (08:17)
[2016-08-28] MEDS: CA CARBONATE (250 MG/ML) 5ML CUP NGT SCH ×2 (08:17→20:52)
[2016-08-28] MEDS: FUROSEMIDE 40 MG TAB PO SCH ×2 (08:17→20:53)
[2016-08-28] MEDS: POLYETHYLENE GLYCOL 17 GM PACKET PO SCH ×2 (08:17→20:52)
[2016-08-28] MEDS: AMLODIPINE 5 MG TAB PO SCH ×2 (08:17→20:53)
[2016-08-28] MEDS: ENOXAPARIN 60 MG/0.6 ML SYG SC SCH ×2 (08:34→20:57)
[2016-08-28] MEDS: ALBUTEROL/IPRATROPIUM (NEB) 3 ML AMP HHN SCH ×3 (08:57→20:05)
--- NOTE | 2016-08-28 14:09 | RADRPT ---
PROCEDURE: XR Chest. CLINICAL INDICATION: CHF TECHNIQUE: An AP view of the chest was obtained. COMPARISON: Chest x-ray dated 08/24/2016 FINDINGS: Lung volumes are low. There is prominence of the interstitial and central pulmonary vascular andrez ngs with small left pleural effusion. No focal airspace opacification or pneumothorax is seen. Th e cardiomediastinal silhouette is mildly enlarged . Calcifications are seen within the aortic arch. The osseous structures demonstrate senescent changes. IMPRESSION: 1. Findings suggestive of pulmonary vascular congestion/interstitial edema with small left pleural effusion. No significant interval change. 2. Mild cardiomegaly and aortic atherosclerosis. RPTAT: HH .Nicolle Curry MD, MD Date Time Electronically viewed and signed by .Nicolle Curry MD, on 08/28/2016 14:09 .G/
--- NOTE | 2016-08-28 16:05 | PN ---
Date/Time of Note Date/Time of Note DATE: 08/28/16 TIME: 16:03 Assessment/Plan VTE Prophylaxis VTE Prophylaxis Intervention: ambulation Lines/Catheters IV [facility]from [facility] Saline Lock Urinary Cath still in place: Yes Reason Cath still needed: urinary retention Assessment/Plan Assessment/Plan 1. Nonoliguric acute kidney injury with unknown baseline creatinine. Etiology secondary to acute tubular necrosis. The patient is status post hemodialysis. Patient's renal function has improved. Continue current treatment plan, supportive care, renally dose medications. 2. Acute congestive heart failure exacerbation. The patient is clinically improving. Continue current diuretic regimen. Follow up with cardiology. 3. Mineral bone disorder. Continue to monitor calcium and phosphorus levels. 4. Anemia. Continue to monitor hemoglobin and hematocrit levels. 5. Acute hypoxemic respiratory failure secondary to pneumonia and congestive heart failure. The patient clinically improving. Continue medical management. Continue supplemental oxygen. 6. Sepsis, status post shock. Continue current antibiotic course. 7. Hypothyroidism. Continue Synthroid. 8. Diabetes, continue Accu-Cheks and sliding scale. 9. History of ETOH abuse. 10. Status post cardiopulmonary arrest. Subjective 24 Hr Interval Summary Free Text/Dictation Patient stable no acute events overnight Exam/Review of Systems Vital Signs Vitals Vital Signs Date Time Temp Pulse Resp B/P Pulse Ox O2 Delivery O2 Flow Rate FiO2 08/28/16 13:16 90 16 96 Nasal Cannula 2.0 08/28/16 08:02 99.0 127/83 Intake and Output 08/27/16 08/27/16 08/28/16 15:00 23:00 07:00 Intake Total 1080 ml 580 ml Output Total 1300 ml 800 ml Balance -220 ml -220 ml Exam HEENT: Head is normocephalic. NECK: Supple. HEART: Regular rate. LUNGS: Show diminished breath sounds at base. ABDOMEN: Soft, nontender to palpation. No rebound or guarding. EXTREMITIES: Negative for clubbing, cyanosis, no edema. DERMATOLOGIC: No rashes. MUSCULOSKELETAL: No joint effusions. NEUROLOGIC: No change in exam. Results Result Diagram: 08/28/16 0505 08/28/16 0500 Results 24 hrs Laboratory Tests Test 08/27/16 17:35 08/27/16 21:20 08/28/16 05:00 08/28/16 05:05 Bedside Glucose 81 87 Sodium Level 134 L Potassium Level 4.1 Chloride Level 100 Carbon Dioxide Level 29 Anion Gap 9 Blood Urea Nitrogen 17 Creatinine 1.05 Glucose Level 83 Calcium Level 10.1 Phosphorus Level 4.1 Magnesium Level 1.8 White Blood Count 7.6 Red Blood Count 2.64 L Hemoglobin 8.5 L Hematocrit 26.0 L Mean Corpuscular Volume 98.5 Mean Corpuscular Hemoglobin 32.2 Mean Corpuscular Hemoglobin Concent 32.7 Red Cell Distribution Width 14.9 H Platelet Count 474 #H Mean Platelet Volume 10.3 Neutrophils % 50.8 Lymphocytes % 27.1 Monocytes % 13.2 H Eosinophils % 8.0 H Basophils % 0.4 Nucleated Red Blood Cells % 0.0 Neutrophils # 3.9 Lymphocytes # 2.1 Monocytes # 1.0 H Eosinophils # 0.6 H Basophils # 0.0 Nucleated Red Blood Cells # 0.0 Test 08/28/16 08:14 08/28/16 12:24 Bedside Glucose 85 95 Medications Medications Current Medications Ondansetron HCl (Zofran Inj) 4 mg Q6H PRN IV NAUSEA AND/OR VOMITING; Start at 03:00 Metoclopramide HCl (Reglan) 10 mg Q6H PRN IV NAUSEA AND/OR VOMITING; Start at 03:00 Acetaminophen (Tylenol Tab) 650 mg Q6H PRN PO PAIN LEVEL 1-3 OR FEVER Last administered on 08/26/16 16:27; Admin Dose 650 MG; Start 08/01/16 at 03:00 Acetaminophen (Tylenol Supp) 650 mg Q4H PRN [place] PAIN LEVEL 1-3 OR FEVER; Start 08/01/16 at 06:30 Miscellaneous Information 1 ea NOTE XX ; Start 08/02/16 at 09:00 Glucose (Glutose) 15 gm Q15M PRN PO DECREASED GLUCOSE; Start 08/02/16 at 09:00 Glucose (Glutose) 22.5 gm Q15M PRN PO DECREASED GLUCOSE; Start 08/02/16 at 09:00 Dextrose (D50w Syringe) 25 ml Q15M PRN IV DECREASED GLUCOSE Last administered on 08/16/16 06:30; Admin Dose 25 ML; Start 08/02/16 at 09:00 Dextrose (D50w Syringe) 50 ml Q15M PRN IV DECREASED GLUCOSE; Start 08/02/16 at 09:00 Glucagon (Glucagen) 1 mg Q15M PRN IM DECREASED GLUCOSE; Start 08/02/16 at 09:00 Glucose (Glutose) 15 gm Q15M PRN BUCCAL DECREASED GLUCOSE; Start 08/02/16 at 09: 00 Calcium Carbonate (Ca Carbonate) 1,250 mg Q12 NGT Last administered on 08:17; Admin Dose 1,250 MG; Start 08/11/16 at 09:00 IV Flush (NS 10 ml) 10 ml PRN PRN IV FLUSH LINE; Start 08/11/16 at 20:00 Hydralazine HCl (Apresoline) 10 mg Q4H PRN IV SBP >160 Last administered on 23:33; Admin Dose 10 MG; Start 08/13/16 at 03:30 Hydromorphone HCl (Dilaudid) 1 mg Q4H PRN IV PAIN Last administered on 18:47; Admin Dose 1 MG; Start 08/16/16 at 08:30 Levothyroxine Sodium (Synthroid) 175 mcg DAILY@06 PO Last administered on 05:38; Admin Dose 175 MCG; Start 08/18/16 at 06:00 Pantoprazole (Protonix Tab) 40 mg DAILY@06 PO Last administered on 08/28/16 05 :38; Admin Dose 40 MG; Start 08/18/16 at 06:00 Enoxaparin Sodium (Lovenox) 110 mg Q12 SC Last administered on 08/28/16 08:34 ; Admin Dose 110 MG; Start 08/17/16 at 21:00 Doxazosin Mesylate (Cardura) 4 mg HS PO Last administered on 08/27/16 21:31; Admin Dose 4 MG; Start 08/19/16 at 21:00 Lorazepam (Ativan) 0.5 mg Q8H PRN PO ANXIETY; Start 08/19/16 at 14:00 Losartan Potassium (Cozaar) 50 mg DAILY PO Last administered on 08/28/16 08:17 ; Admin Dose 50 MG; Start 08/20/16 at 09:00 Amlodipine Besylate (Norvasc) 5 mg BID PO Last administered on 08/28/16 08:17 ; Admin Dose 5 MG; Start 08/23/16 at 21:00 Furosemide (Lasix) 40 mg BID PO Last administered on 08/28/16 08:17; Admin Dose 40 MG; Start 08/25/16 at 09:00 Polyethylene Glycol (Miralax) 17 gm BID PO Last administered on 08/28/16 08:17 ; Admin Dose 17 GM; Start 08/26/16 at 09:00 Bisacodyl (Dulcolax) 10 mg DAILY PRN PO CONSTIPATION Last administered on 16:27; Admin Dose 10 MG; Start 08/26/16 at 08:00 BALDOMERO HARRINGTON DO Aug 28, 2016 16:05
[2016-08-28 19:34] VITALS: BP 129/82; RESP 18
[2016-08-28] MEDS: DOXAZOSIN 4 MG TAB PO SCH (20:52)
[2016-08-29] MEDS: PANTOPRAZOLE (EC) 40 MG TAB PO SCH (05:50)
[2016-08-29] MEDS: LEVOTHYROXINE 175 MCG TAB PO SCH (05:50)
[2016-08-29 07:13] LABS: CALCIUM 10.6 mg/dl (8.4-10.2); CREATININE 1.16 mg/dl (0.61-1.24); MAGNESIUM 1.8 mg/dl (1.7-2.5); PHOSPHORUS 4.4 mg/dl (2.5-4.9)
[2016-08-29 07:51] VITALS: BP 131/72; RESP 20
[2016-08-29] MEDS: INSULIN ASPART [NOVOLOG] 3 ML PEN SC SCH ×4 (08:15→21:00)
[2016-08-29] MEDS: ALBUTEROL/IPRATROPIUM (NEB) 3 ML AMP HHN SCH ×3 (08:35→20:30)
[2016-08-29] MEDS: AMLODIPINE 5 MG TAB PO SCH ×2 (08:43→21:14)
[2016-08-29] MEDS: POLYETHYLENE GLYCOL 17 GM PACKET PO SCH ×2 (08:43→21:13)
[2016-08-29] MEDS: CA CARBONATE (250 MG/ML) 5ML CUP NGT SCH ×2 (08:43→21:13)
[2016-08-29] MEDS: FUROSEMIDE 40 MG TAB PO SCH ×2 (08:44→21:14)
[2016-08-29] MEDS: LOSARTAN 50 MG TAB PO SCH (08:44)
[2016-08-29] MEDS: ENOXAPARIN 60 MG/0.6 ML SYG SC SCH ×2 (08:49→21:23)
--- NOTE | 2016-08-29 09:39 | PN ---
Date/Time of Note Date/Time of Note DATE: 08/29/16 TIME: 09:37 Assessment/Plan VTE Prophylaxis VTE Prophylaxis Intervention: ambulation Lines/Catheters IV [facility] Type [facility] Saline Lock Urinary Cath still in place: Yes Reason Cath still needed: other (indicate) Assessment/Plan Chief Complaint/Hosp Course 1. Nonoliguric acute kidney injury with unknown baseline creatinine. Etiology secondary to acute tubular necrosis. The patient is status post hemodialysis. Patient's renal function has improved. Continue current treatment plan, supportive care, renally dose medications. 2. Acute congestive heart failure exacerbation. The patient is clinically improving. Continue current diuretic regimen. Follow up with cardiology. 3. Mineral bone disorder. Continue to monitor calcium and phosphorus levels. 4. Anemia. Continue to monitor hemoglobin and hematocrit levels. 5. Acute hypoxemic respiratory failure secondary to pneumonia and congestive heart failure. The patient clinically improving. Continue medical management. Continue supplemental oxygen. 6. Sepsis, status post shock. Continue current antibiotic course. 7. Hypothyroidism. Continue Synthroid. 8. Diabetes, continue Accu-Cheks and sliding scale. 9. History of ETOH abuse. 10. Status post cardiopulmonary arrest. Problems: Subjective 24 Hr Interval Summary Free Text/Dictation Patient stable no acute events overnight Exam/Review of Systems Vital Signs Vitals Vital Signs Date Time Temp Pulse Resp B/P Pulse Ox O2 Delivery O2 Flow Rate FiO2 08/29/16 08:35 101 18 94 Nasal Cannula 2.0 08/29/16 07:51 98.2 131/72 Intake and Output 08/28/16 08/28/16 08/29/16 15:00 23:00 07:00 Intake Total 840 ml Output Total 1350 ml Balance -510 ml Exam HEENT: Head is normocephalic. NECK: Supple. HEART: Regular rate. LUNGS: Show diminished breath sounds at base. ABDOMEN: Soft, nontender to palpation. No rebound or guarding. EXTREMITIES: Negative for clubbing, cyanosis, no edema. DERMATOLOGIC: No rashes. MUSCULOSKELETAL: No joint effusions. NEUROLOGIC: No change in exam. Results Result Diagram: 08/28/16 0505 08/29/16 0052 Results 24 hrs Laboratory Tests Test 08/28/16 12:24 08/28/16 17:43 08/28/16 20:52 08/29/16 00:52 Bedside Glucose 95 97 105 Sodium Level 137 Potassium Level 4.0 Chloride Level 102 Carbon Dioxide Level 28 Anion Gap 11 Blood Urea Nitrogen 18 Creatinine 1.16 Glucose Level 81 Calcium Level 10.6 H Phosphorus Level 4.4 Magnesium Level 1.8 Test 08/29/16 08:02 Bedside Glucose 77 Medications Medications Current Medications Ondansetron HCl (Zofran Inj) 4 mg Q6H PRN IV NAUSEA AND/OR VOMITING; Start at 03:00 Metoclopramide HCl (Reglan) 10 mg Q6H PRN IV NAUSEA AND/OR VOMITING; Start at 03:00 Acetaminophen (Tylenol Tab) 650 mg Q6H PRN PO PAIN LEVEL 1-3 OR FEVER Last administered on 08/26/16 16:27; Admin Dose 650 MG; Start 08/01/16 at 03:00 Acetaminophen (Tylenol Supp) 650 mg Q4H PRN [place] PAIN LEVEL 1-3 OR FEVER; Start 08/01/16 at 06:30 Miscellaneous Information 1 ea NOTE XX ; Start 08/02/16 at 09:00 Glucose (Glutose) 15 gm Q15M PRN PO DECREASED GLUCOSE; Start 08/02/16 at 09:00 Glucose (Glutose) 22.5 gm Q15M PRN PO DECREASED GLUCOSE; Start 08/02/16 at 09:00 Dextrose (D50w Syringe) 25 ml Q15M PRN IV DECREASED GLUCOSE Last administered on 08/16/16 06:30; Admin Dose 25 ML; Start 08/02/16 at 09:00 Dextrose (D50w Syringe) 50 ml Q15M PRN IV DECREASED GLUCOSE; Start 08/02/16 at 09:00 Glucagon (Glucagen) 1 mg Q15M PRN IM DECREASED GLUCOSE; Start 08/02/16 at 09:00 Glucose (Glutose) 15 gm Q15M PRN BUCCAL DECREASED GLUCOSE; Start 08/02/16 at 09: 00 Calcium Carbonate (Ca Carbonate) 1,250 mg Q12 NGT Last administered on 08:43; Admin Dose 1,250 MG; Start 08/11/16 at 09:00 IV Flush (NS 10 ml) 10 ml PRN PRN IV FLUSH LINE; Start 08/11/16 at 20:00 Hydralazine HCl (Apresoline) 10 mg Q4H PRN IV SBP >160 Last administered on 23:33; Admin Dose 10 MG; Start 08/13/16 at 03:30 Hydromorphone HCl (Dilaudid) 1 mg Q4H PRN IV PAIN Last administered on 18:47; Admin Dose 1 MG; Start 08/16/16 at 08:30 Levothyroxine Sodium (Synthroid) 175 mcg DAILY@06 PO Last administered on 05:50; Admin Dose 175 MCG; Start 08/18/16 at 06:00 Pantoprazole (Protonix Tab) 40 mg DAILY@06 PO Last administered on 08/29/16 05 :50; Admin Dose 40 MG; Start 08/18/16 at 06:00 Enoxaparin Sodium (Lovenox) 110 mg Q12 SC Last administered on 08/29/16 08:49 ; Admin Dose 110 MG; Start 08/17/16 at 21:00 Doxazosin Mesylate (Cardura) 4 mg HS PO Last administered on 08/28/16 20:52; Admin Dose 4 MG; Start 08/19/16 at 21:00 Lorazepam (Ativan) 0.5 mg Q8H PRN PO ANXIETY; Start 08/19/16 at 14:00 Losartan Potassium (Cozaar) 50 mg DAILY PO Last administered on 08/29/16 08:44 ; Admin Dose 50 MG; Start 08/20/16 at 09:00 Amlodipine Besylate (Norvasc) 5 mg BID PO Last administered on 08/29/16 08:43 ; Admin Dose 5 MG; Start 08/23/16 at 21:00 Furosemide (Lasix) 40 mg BID PO Last administered on 08/29/16 08:44; Admin Dose 40 MG; Start 08/25/16 at 09:00 Polyethylene Glycol (Miralax) 17 gm BID PO Last administered on 08/29/16 08:43 ; Admin Dose 17 GM; Start 08/26/16 at 09:00 Bisacodyl (Dulcolax) 10 mg DAILY PRN PO CONSTIPATION Last administered on 16:27; Admin Dose 10 MG; Start 08/26/16 at 08:00 BALDOMERO HARRINGTON DO Aug 29, 2016 09:39
--- NOTE | 2016-08-29 14:05 | CONS ---
Date/Time of Note Date/Time of Note DATE: 08/29/16 TIME: 14:04 Assessment/Plan Assessment/Plan Chief Complaint/Hosp Course Assessment: Status post PEA cardiac arrest - secondary to severe metabolic acidosis, no ventricular arrhythmia or EKG changes to suggest primary cardiac etiology Acute on chronic diastolic heart failure - improved with diuresis Acute hypoxic respiratory failure - improved and extubated 08/15/2016 Status post septic shock - resolved Status post cute kidney injury - status post intermittent hemodialysis, renal function now back to normal Hypertension Hypothyroidism Recommendations: -echocardiogram showed LVEF 60%, grade 1 diastolic dysfunction -continue amlodipine 5mg BID and losartan 50mg daily -continue Lasix 40mg PO BID -consider cardiac stress testing as outpatient Problems: Consultation Date/Type/Reason Admit Date/Time August 01, 2016 at 00:50 Initial Consult Date 08/01/16 Type of Consultation: Cardiology 24 HR Interval Summary Free Text/Dictation No acute events. Detailed Summary Additional Comments 14 point review of systems without changes. Exam/Review of Systems Vital Signs Vitals Vital Signs Date Time Temp Pulse Resp B/P Pulse Ox O2 Delivery O2 Flow Rate FiO2 08/29/16 13:21 2.0 08/29/16 13:21 99 20 95 Nasal Cannula 08/29/16 07:51 98.2 131/72 Intake and Output 08/28/16 08/28/16 08/29/16 15:00 23:00 07:00 Intake Total 840 ml Output Total 1350 ml Balance -510 ml Exam Constitutional: alert, oriented Psych: no complaints Head: atraumatic, normocephalic Neck: No jvd Respiratory: clear to auscultation, No crackles/rales Cardiovascular: regular rate and rhythm, No edema Gastrointestinal: non-tender, soft Neurological: nl mental status, nl speech Results Result Diagram: 08/28/16 0505 08/29/16 0052 Results 24 hrs Laboratory Tests Test 08/28/16 17:43 08/28/16 20:52 08/29/16 00:52 08/29/16 08:02 Bedside Glucose 97 105 77 Sodium Level 137 Potassium Level 4.0 Chloride Level 102 Carbon Dioxide Level 28 Anion Gap 11 Blood Urea Nitrogen 18 Creatinine 1.16 Glucose Level 81 Calcium Level 10.6 H Phosphorus Level 4.4 Magnesium Level 1.8 Test 08/29/16 12:04 Bedside Glucose 97 Medications Medications Current Medications Ondansetron HCl (Zofran Inj) 4 mg Q6H PRN IV NAUSEA AND/OR VOMITING; Start at 03:00 Metoclopramide HCl (Reglan) 10 mg Q6H PRN IV NAUSEA AND/OR VOMITING; Start at 03:00 Acetaminophen (Tylenol Tab) 650 mg Q6H PRN PO PAIN LEVEL 1-3 OR FEVER Last administered on 08/26/16 16:27; Admin Dose 650 MG; Start 08/01/16 at 03:00 Acetaminophen (Tylenol Supp) 650 mg Q4H PRN [place] PAIN LEVEL 1-3 OR FEVER; Start 08/01/16 at 06:30 Miscellaneous Information 1 ea NOTE XX ; Start 08/02/16 at 09:00 Glucose (Glutose) 15 gm Q15M PRN PO DECREASED GLUCOSE; Start 08/02/16 at 09:00 Glucose (Glutose) 22.5 gm Q15M PRN PO DECREASED GLUCOSE; Start 08/02/16 at 09:00 Dextrose (D50w Syringe) 25 ml Q15M PRN IV DECREASED GLUCOSE Last administered on 08/16/16 06:30; Admin Dose 25 ML; Start 08/02/16 at 09:00 Dextrose (D50w Syringe) 50 ml Q15M PRN IV DECREASED GLUCOSE; Start 08/02/16 at 09:00 Glucagon (Glucagen) 1 mg Q15M PRN IM DECREASED GLUCOSE; Start 08/02/16 at 09:00 Glucose (Glutose) 15 gm Q15M PRN BUCCAL DECREASED GLUCOSE; Start 08/02/16 at 09: 00 Calcium Carbonate (Ca Carbonate) 1,250 mg Q12 NGT Last administered on 08:43; Admin Dose 1,250 MG; Start 08/11/16 at 09:00 IV Flush (NS 10 ml) 10 ml PRN PRN IV FLUSH LINE; Start 08/11/16 at 20:00 Hydralazine HCl (Apresoline) 10 mg Q4H PRN IV SBP >160 Last administered on 23:33; Admin Dose 10 MG; Start 08/13/16 at 03:30 Hydromorphone HCl (Dilaudid) 1 mg Q4H PRN IV PAIN Last administered on 18:47; Admin Dose 1 MG; Start 08/16/16 at 08:30 Levothyroxine Sodium (Synthroid) 175 mcg DAILY@06 PO Last administered on 05:50; Admin Dose 175 MCG; Start 08/18/16 at 06:00 Pantoprazole (Protonix Tab) 40 mg DAILY@06 PO Last administered on 08/29/16 05 :50; Admin Dose 40 MG; Start 08/18/16 at 06:00 Enoxaparin Sodium (Lovenox) 110 mg Q12 SC Last administered on 08/29/16 08:49 ; Admin Dose 110 MG; Start 08/17/16 at 21:00 Doxazosin Mesylate (Cardura) 4 mg HS PO Last administered on 08/28/16 20:52; Admin Dose 4 MG; Start 08/19/16 at 21:00 Lorazepam (Ativan) 0.5 mg Q8H PRN PO ANXIETY; Start 08/19/16 at 14:00 Losartan Potassium (Cozaar) 50 mg DAILY PO Last administered on 08/29/16 08:44 ; Admin Dose 50 MG; Start 08/20/16 at 09:00 Amlodipine Besylate (Norvasc) 5 mg BID PO Last administered on 08/29/16 08:43 ; Admin Dose 5 MG; Start 08/23/16 at 21:00 Furosemide (Lasix) 40 mg BID PO Last administered on 08/29/16 08:44; Admin Dose 40 MG; Start 08/25/16 at 09:00 Polyethylene Glycol (Miralax) 17 gm BID PO Last administered on 08/29/16 08:43 ; Admin Dose 17 GM; Start 08/26/16 at 09:00 Bisacodyl (Dulcolax) 10 mg DAILY PRN PO CONSTIPATION Last administered on 16:27; Admin Dose 10 MG; Start 08/26/16 at 08:00 SHEYLA HDZ MD Aug 29, 2016 14:05
--- NOTE | 2016-08-29 14:57 | PN ---
Date/Time of Note Date/Time of Note DATE: 08/29/16 TIME: 14:55 Assessment/Plan VTE Prophylaxis VTE Prophylaxis Intervention: LMWH Lines/Catheters [facility] Saline Lock Urinary Cath still in place: Yes Reason Cath still needed: other (indicate) Assessment/Plan Chief Complaint/Hosp Course 1. Status post PEA cardiac arrest secondary to severe metabolic acidosis. The patient is being followed by Cardiology. As per Cardiology, there is no cardiac etiology to suggest the cardiac arrest. 2. Acute on chronic diastolic heart faded. Improving with diuresis. 3. Acute kidney injury that required temporary hemodialysis. Currently, off hemodialysis. Being followed by Nephrology. 4. Essential hypertension. Continue antihypertensives. 5. Acute encephalopathy secondary to #1, improving. 6. Acute respiratory failure with ARDS and pulmonary edema, status post mechanical ventilation, currently extubated. 7. Status post sepsis, probably secondary to underlying aspiration pneumonia. 8. Hypothyroidism, severe. Continue Synthroid. 9. Debility. Status post evaluation by physical therapy. Physical therapy is recommending [facility] facility versus acute rehabilitation unit for further rehabilitation. 10. Normocytic normochromic anemia. Continue to monitor H and H closely. 11. Diabetes mellitus. Hemoglobin A1c 5.0. Continue sliding scale insulin. 12. Occlusive thrombosis of the left cephalic vein. On therapeutic anticoagulation. 13. Fluid, electrolytes, and nutrition. Mechanical soft diet. Aspiration precautions. 14. DVT prophylaxis. Subcutaneous Lovenox. 15. Gastrointestinal prophylaxis. Proton pump inhibitors. Plan. Await placement. Continue current management. Case discussed with Dr. Tello. Problems: Subjective 24 Hr Interval Summary Free Text/Dictation Vital signs stable. Exam/Review of Systems Vital Signs Vitals Vital Signs Date Time Temp Pulse Resp B/P Pulse Ox O2 Delivery O2 Flow Rate FiO2 08/29/16 13:21 2.0 08/29/16 13:21 99 20 95 Nasal Cannula 08/29/16 07:51 98.2 131/72 Intake and Output 08/28/16 08/28/16 08/29/16 14:59 22:59 06:59 Intake Total 840 ml Output Total 1350 ml Balance -510 ml Exam GENERAL: This is an obese male lying in bed in no apparent distress. HEENT: Head normocephalic and atraumatic. Eyes: Anicteric sclerae. Conjunctivae clear. ENT: Nasal septum is midline. Oral mucosa is dry. NECK: Supple. No JVD noticed. RESPIRATORY: Bilaterally diminished breath sounds. No adventitious breath sounds. No use of accessory muscles of respiration. CARDIAC: Regular rate and rhythm. S1 and S2 heard. ABDOMEN: Soft, nontender and nondistended. Bowel sounds positive in all 4 quadrants. GENITOURINARY: Deferred. EXTREMITIES: No cyanosis, no clubbing. Bilateral lower extremity 1 to 2+ pitting edema. Peripheral pulses are diminished. NEUROLOGIC: The patient is awake, alert, and oriented. Results Result Diagram: 08/28/16 0505 08/29/16 0052 Results 24 hrs Laboratory Tests Test 08/28/16 17:43 08/28/16 20:52 08/29/16 00:52 08/29/16 08:02 Bedside Glucose 97 105 77 Sodium Level 137 Potassium Level 4.0 Chloride Level 102 Carbon Dioxide Level 28 Anion Gap 11 Blood Urea Nitrogen 18 Creatinine 1.16 Glucose Level 81 Calcium Level 10.6 H Phosphorus Level 4.4 Magnesium Level 1.8 Test 08/29/16 12:04 Bedside Glucose 97 Medications Medications Current Medications Ondansetron HCl (Zofran Inj) 4 mg Q6H PRN IV NAUSEA AND/OR VOMITING; Start at 03:00 Metoclopramide HCl (Reglan) 10 mg Q6H PRN IV NAUSEA AND/OR VOMITING; Start at 03:00 Acetaminophen (Tylenol Tab) 650 mg Q6H PRN PO PAIN LEVEL 1-3 OR FEVER Last administered on 08/26/16 16:27; Admin Dose 650 MG; Start 08/01/16 at 03:00 Acetaminophen (Tylenol Supp) 650 mg Q4H PRN [place] PAIN LEVEL 1-3 OR FEVER; Start 08/01/16 at 06:30 Miscellaneous Information 1 ea NOTE XX ; Start 08/02/16 at 09:00 Glucose (Glutose) 15 gm Q15M PRN PO DECREASED GLUCOSE; Start 08/02/16 at 09:00 Glucose (Glutose) 22.5 gm Q15M PRN PO DECREASED GLUCOSE; Start 08/02/16 at 09:00 Dextrose (D50w Syringe) 25 ml Q15M PRN IV DECREASED GLUCOSE Last administered on 08/16/16 06:30; Admin Dose 25 ML; Start 08/02/16 at 09:00 Dextrose (D50w Syringe) 50 ml Q15M PRN IV DECREASED GLUCOSE; Start 08/02/16 at 09:00 Glucagon (Glucagen) 1 mg Q15M PRN IM DECREASED GLUCOSE; Start 08/02/16 at 09:00 Glucose (Glutose) 15 gm Q15M PRN BUCCAL DECREASED GLUCOSE; Start 08/02/16 at 09: 00 Calcium Carbonate (Ca Carbonate) 1,250 mg Q12 NGT Last administered on 08:43; Admin Dose 1,250 MG; Start 08/11/16 at 09:00 IV Flush (NS 10 ml) 10 ml PRN PRN IV FLUSH LINE; Start 08/11/16 at 20:00 Hydralazine HCl (Apresoline) 10 mg Q4H PRN IV SBP >160 Last administered on 23:33; Admin Dose 10 MG; Start 08/13/16 at 03:30 Hydromorphone HCl (Dilaudid) 1 mg Q4H PRN IV PAIN Last administered on 18:47; Admin Dose 1 MG; Start 08/16/16 at 08:30 Levothyroxine Sodium (Synthroid) 175 mcg DAILY@06 PO Last administered on 05:50; Admin Dose 175 MCG; Start 08/18/16 at 06:00 Pantoprazole (Protonix Tab) 40 mg DAILY@06 PO Last administered on 08/29/16 05 :50; Admin Dose 40 MG; Start 08/18/16 at 06:00 Enoxaparin Sodium (Lovenox) 110 mg Q12 SC Last administered on 08/29/16 08:49 ; Admin Dose 110 MG; Start 08/17/16 at 21:00 Doxazosin Mesylate (Cardura) 4 mg HS PO Last administered on 08/28/16 20:52; Admin Dose 4 MG; Start 08/19/16 at 21:00 Lorazepam (Ativan) 0.5 mg Q8H PRN PO ANXIETY; Start 08/19/16 at 14:00 Losartan Potassium (Cozaar) 50 mg DAILY PO Last administered on 08/29/16 08:44 ; Admin Dose 50 MG; Start 08/20/16 at 09:00 Amlodipine Besylate (Norvasc) 5 mg BID PO Last administered on 08/29/16 08:43 ; Admin Dose 5 MG; Start 08/23/16 at 21:00 Furosemide (Lasix) 40 mg BID PO Last administered on 08/29/16 08:44; Admin Dose 40 MG; Start 08/25/16 at 09:00 Polyethylene Glycol (Miralax) 17 gm BID PO Last administered on 08/29/16 08:43 ; Admin Dose 17 GM; Start 08/26/16 at 09:00 Bisacodyl (Dulcolax) 10 mg DAILY PRN PO CONSTIPATION Last administered on 16:27; Admin Dose 10 MG; Start 08/26/16 at 08:00 SRINIVASA HUNT NP Aug 29, 2016 14:56
[2016-08-29 19:32] VITALS: BP 132/76; RESP 20
[2016-08-29] MEDS: DOXAZOSIN 4 MG TAB PO SCH (21:14)
[2016-08-30] MEDS: LEVOTHYROXINE 175 MCG TAB PO SCH (05:34)
[2016-08-30] MEDS: PANTOPRAZOLE (EC) 40 MG TAB PO SCH (05:34)
[2016-08-30 07:38] VITALS: BP 133/82; RESP 18
[2016-08-30] MEDS: INSULIN ASPART [NOVOLOG] 3 ML PEN SC SCH ×4 (08:15→21:00)
[2016-08-30] MEDS: ALBUTEROL/IPRATROPIUM (NEB) 3 ML AMP HHN SCH ×3 (08:37→20:25)
[2016-08-30] MEDS: POLYETHYLENE GLYCOL 17 GM PACKET PO SCH ×2 (08:49→21:12)
[2016-08-30] MEDS: AMLODIPINE 5 MG TAB PO SCH ×2 (08:49→21:13)
[2016-08-30] MEDS: CA CARBONATE (250 MG/ML) 5ML CUP NGT SCH ×2 (08:49→21:12)
[2016-08-30] MEDS: LOSARTAN 50 MG TAB PO SCH (08:50)
[2016-08-30] MEDS: FUROSEMIDE 40 MG TAB PO SCH ×2 (08:50→21:13)
[2016-08-30] MEDS: ENOXAPARIN 60 MG/0.6 ML SYG SC SCH (08:56)
--- NOTE | 2016-08-30 10:22 | PN ---
Date/Time of Note Date/Time of Note DATE: 08/30/16 TIME: 10:21 Assessment/Plan VTE Prophylaxis VTE Prophylaxis Intervention: LMWH Lines/Catheters [facility] Saline Lock Urinary Cath still in place: Yes Reason Cath still needed: other (indicate) Assessment/Plan Chief Complaint/Hosp Course 1. Status post PEA cardiac arrest secondary to severe metabolic acidosis. The patient is being followed by Cardiology. As per Cardiology, there is no cardiac etiology to suggest the cardiac arrest. 2. Acute on chronic diastolic heart faded. Improving with diuresis. 3. Acute kidney injury that required temporary hemodialysis. Currently, off hemodialysis. Being followed by Nephrology. 4. Essential hypertension. Continue antihypertensives. 5. Acute encephalopathy secondary to #1, improving. 6. Acute respiratory failure with ARDS and pulmonary edema, status post mechanical ventilation, currently extubated. 7. Status post sepsis, probably secondary to underlying aspiration pneumonia. 8. Hypothyroidism, severe. Continue Synthroid. 9. Debility. Status post evaluation by physical therapy. Physical therapy is recommending [facility] facility versus acute rehabilitation unit for further rehabilitation. 10. Normocytic normochromic anemia. Continue to monitor H and H closely. 11. Diabetes mellitus. Hemoglobin A1c 5.0. Continue sliding scale insulin. 12. Occlusive thrombosis of the left cephalic vein. On therapeutic anticoagulation. Will discontinue therapeutic anticoagulation since the cephalic vein is a superficial vein. 13. Fluid, electrolytes, and nutrition. Mechanical soft diet. Aspiration precautions. 14. DVT prophylaxis. Subcutaneous Lovenox. 15. Gastrointestinal prophylaxis. Proton pump inhibitors. Plan. Await placement. Continue current management. Obtain bilateral lower extremity venous Doppler. Case discussed with Dr. Tello. Problems: Subjective 24 Hr Interval Summary Free Text/Dictation Awaiting placement. Complains of right lower extremity pain. Exam/Review of Systems Vital Signs Vitals Vital Signs Date Time Temp Pulse Resp B/P Pulse Ox O2 Delivery O2 Flow Rate FiO2 08/30/16 08:37 106 18 96 Nasal Cannula 1.5 08/30/16 07:38 99.3 133/82 Intake and Output 08/29/16 08/29/16 08/30/16 15:00 23:00 07:00 Intake Total 360 ml 920 ml 600 ml Output Total 700 ml 600 ml 1200 ml Balance -340 ml 320 ml -600 ml Exam GENERAL: This is an obese male lying in bed in no apparent distress. HEENT: Head normocephalic and atraumatic. Eyes: Anicteric sclerae. Conjunctivae clear. ENT: Nasal septum is midline. Oral mucosa is dry. NECK: Supple. No JVD noticed. RESPIRATORY: Bilaterally diminished breath sounds. No adventitious breath sounds. No use of accessory muscles of respiration. CARDIAC: Regular rate and rhythm. S1 and S2 heard. ABDOMEN: Soft, nontender and nondistended. Bowel sounds positive in all 4 quadrants. GENITOURINARY: Deferred. EXTREMITIES: No cyanosis, no clubbing. Bilateral lower extremity 1 to 2+ pitting edema. Peripheral pulses are diminished. NEUROLOGIC: The patient is awake, alert, and oriented. Results Result Diagram: 08/28/16 0505 08/29/16 0052 Results 24 hrs Laboratory Tests Test 08/29/16 12:04 08/29/16 21:12 08/30/16 08:15 Bedside Glucose 97 108 81 Medications Medications Current Medications Ondansetron HCl (Zofran Inj) 4 mg Q6H PRN IV NAUSEA AND/OR VOMITING; Start at 03:00 Metoclopramide HCl (Reglan) 10 mg Q6H PRN IV NAUSEA AND/OR VOMITING; Start at 03:00 Acetaminophen (Tylenol Tab) 650 mg Q6H PRN PO PAIN LEVEL 1-3 OR FEVER Last administered on 08/26/16 16:27; Admin Dose 650 MG; Start 08/01/16 at 03:00 Acetaminophen (Tylenol Supp) 650 mg Q4H PRN [place] PAIN LEVEL 1-3 OR FEVER; Start 08/01/16 at 06:30 Miscellaneous Information 1 ea NOTE XX ; Start 08/02/16 at 09:00 Glucose (Glutose) 15 gm Q15M PRN PO DECREASED GLUCOSE; Start 08/02/16 at 09:00 Glucose (Glutose) 22.5 gm Q15M PRN PO DECREASED GLUCOSE; Start 08/02/16 at 09:00 Dextrose (D50w Syringe) 25 ml Q15M PRN IV DECREASED GLUCOSE Last administered on 08/16/16 06:30; Admin Dose 25 ML; Start 08/02/16 at 09:00 Dextrose (D50w Syringe) 50 ml Q15M PRN IV DECREASED GLUCOSE; Start 08/02/16 at 09:00 Glucagon (Glucagen) 1 mg Q15M PRN IM DECREASED GLUCOSE; Start 08/02/16 at 09:00 Glucose (Glutose) 15 gm Q15M PRN BUCCAL DECREASED GLUCOSE; Start 08/02/16 at 09: 00 Calcium Carbonate (Ca Carbonate) 1,250 mg Q12 NGT Last administered on 08:49; Admin Dose 1,250 MG; Start 08/11/16 at 09:00 IV Flush (NS 10 ml) 10 ml PRN PRN IV FLUSH LINE; Start 08/11/16 at 20:00 Hydralazine HCl (Apresoline) 10 mg Q4H PRN IV SBP >160 Last administered on 23:33; Admin Dose 10 MG; Start 08/13/16 at 03:30 Hydromorphone HCl (Dilaudid) 1 mg Q4H PRN IV PAIN Last administered on 18:47; Admin Dose 1 MG; Start 08/16/16 at 08:30 Levothyroxine Sodium (Synthroid) 175 mcg DAILY@06 PO Last administered on 05:34; Admin Dose 175 MCG; Start 08/18/16 at 06:00 Pantoprazole (Protonix Tab) 40 mg DAILY@06 PO Last administered on 08/30/16 05 :34; Admin Dose 40 MG; Start 08/18/16 at 06:00 Enoxaparin Sodium (Lovenox) 110 mg Q12 SC Last administered on 08/30/16 08:56 ; Admin Dose 110 MG; Start 08/17/16 at 21:00 Doxazosin Mesylate (Cardura) 4 mg HS PO Last administered on 08/29/16 21:14; Admin Dose 4 MG; Start 08/19/16 at 21:00 Lorazepam (Ativan) 0.5 mg Q8H PRN PO ANXIETY; Start 08/19/16 at 14:00 Losartan Potassium (Cozaar) 50 mg DAILY PO Last administered on 08/30/16 08:50 ; Admin Dose 50 MG; Start 08/20/16 at 09:00 Amlodipine Besylate (Norvasc) 5 mg BID PO Last administered on 08/30/16 08:49 ; Admin Dose 5 MG; Start 08/23/16 at 21:00 Furosemide (Lasix) 40 mg BID PO Last administered on 08/30/16 08:50; Admin Dose 40 MG; Start 08/25/16 at 09:00 Polyethylene Glycol (Miralax) 17 gm BID PO Last administered on 08/30/16 08:49 ; Admin Dose 17 GM; Start 08/26/16 at 09:00 Bisacodyl (Dulcolax) 10 mg DAILY PRN PO CONSTIPATION Last administered on 16:27; Admin Dose 10 MG; Start 08/26/16 at 08:00 SRINIVASA HUNT NP Aug 30, 2016 10:22
--- NOTE | 2016-08-30 10:54 | PN ---
Date/Time of Note Date/Time of Note DATE: 08/30/16 TIME: 10:52 Assessment/Plan VTE Prophylaxis VTE Prophylaxis Intervention: ambulation Lines/Catheters IV [facility] Type (from [facility] Saline Lock Urinary Cath still in place: Yes Reason Cath still needed: urinary retention Assessment/Plan Chief Complaint/Hosp Course 1. Nonoliguric acute kidney injury with unknown baseline creatinine. Etiology secondary to acute tubular necrosis. The patient is status post hemodialysis. Patient's renal function has improved. Continue current treatment plan, supportive care, renally dose medications. 2. Acute congestive heart failure exacerbation. The patient is clinically improving. Continue current diuretic regimen. Follow up with cardiology. 3. Mineral bone disorder. Continue to monitor calcium and phosphorus levels. 4. Anemia. Continue to monitor hemoglobin and hematocrit levels. 5. Acute hypoxemic respiratory failure secondary to pneumonia and congestive heart failure. The patient clinically improving. Continue medical management. Continue supplemental oxygen. 6. Sepsis, status post shock. Continue current antibiotic course. 7. Hypothyroidism. Continue Synthroid. 8. Diabetes, continue Accu-Cheks and sliding scale. 9. History of ETOH abuse. 10. Status post cardiopulmonary arrest. Problems: Subjective 24 Hr Interval Summary Free Text/Dictation Patient stable no acute events overnight Exam/Review of Systems Vital Signs Vitals Vital Signs Date Time Temp Pulse Resp B/P Pulse Ox O2 Delivery O2 Flow Rate FiO2 08/30/16 08:37 106 18 96 Nasal Cannula 1.5 08/30/16 07:38 99.3 133/82 Intake and Output 08/29/16 08/29/16 08/30/16 15:00 23:00 07:00 Intake Total 360 ml 920 ml 600 ml Output Total 700 ml 600 ml 1200 ml Balance -340 ml 320 ml -600 ml Exam HEENT: Head is normocephalic. NECK: Supple. HEART: Regular rate. LUNGS: Show diminished breath sounds at base. ABDOMEN: Soft, nontender to palpation. No rebound or guarding. EXTREMITIES: Negative for clubbing, cyanosis, no edema. DERMATOLOGIC: No rashes. MUSCULOSKELETAL: No joint effusions. NEUROLOGIC: No change in exam. Results Result Diagram: 08/28/16 0505 08/29/16 0052 Results 24 hrs Laboratory Tests Test 08/29/16 12:04 08/29/16 21:12 08/30/16 08:15 Bedside Glucose 97 108 81 Medications Medications Current Medications Ondansetron HCl (Zofran Inj) 4 mg Q6H PRN IV NAUSEA AND/OR VOMITING; Start at 03:00 Metoclopramide HCl (Reglan) 10 mg Q6H PRN IV NAUSEA AND/OR VOMITING; Start at 03:00 Acetaminophen (Tylenol Tab) 650 mg Q6H PRN PO PAIN LEVEL 1-3 OR FEVER Last administered on 08/26/16 16:27; Admin Dose 650 MG; Start 08/01/16 at 03:00 Acetaminophen (Tylenol Supp) 650 mg Q4H PRN [place] PAIN LEVEL 1-3 OR FEVER; Start 08/01/16 at 06:30 Miscellaneous Information 1 ea NOTE XX ; Start 08/02/16 at 09:00 Glucose (Glutose) 15 gm Q15M PRN PO DECREASED GLUCOSE; Start 08/02/16 at 09:00 Glucose (Glutose) 22.5 gm Q15M PRN PO DECREASED GLUCOSE; Start 08/02/16 at 09:00 Dextrose (D50w Syringe) 25 ml Q15M PRN IV DECREASED GLUCOSE Last administered on 08/16/16 06:30; Admin Dose 25 ML; Start 08/02/16 at 09:00 Dextrose (D50w Syringe) 50 ml Q15M PRN IV DECREASED GLUCOSE; Start 08/02/16 at 09:00 Glucagon (Glucagen) 1 mg Q15M PRN IM DECREASED GLUCOSE; Start 08/02/16 at 09:00 Glucose (Glutose) 15 gm Q15M PRN BUCCAL DECREASED GLUCOSE; Start 08/02/16 at 09: 00 Calcium Carbonate (Ca Carbonate) 1,250 mg Q12 NGT Last administered on 08:49; Admin Dose 1,250 MG; Start 08/11/16 at 09:00 IV Flush (NS 10 ml) 10 ml PRN PRN IV FLUSH LINE; Start 08/11/16 at 20:00 Hydralazine HCl (Apresoline) 10 mg Q4H PRN IV SBP >160 Last administered on 23:33; Admin Dose 10 MG; Start 08/13/16 at 03:30 Hydromorphone HCl (Dilaudid) 1 mg Q4H PRN IV PAIN Last administered on 18:47; Admin Dose 1 MG; Start 08/16/16 at 08:30 Levothyroxine Sodium (Synthroid) 175 mcg DAILY@06 PO Last administered on 05:34; Admin Dose 175 MCG; Start 08/18/16 at 06:00 Pantoprazole (Protonix Tab) 40 mg DAILY@06 PO Last administered on 08/30/16 05 :34; Admin Dose 40 MG; Start 08/18/16 at 06:00 Enoxaparin Sodium (Lovenox) 110 mg Q12 SC Last administered on 08/30/16 08:56 ; Admin Dose 110 MG; Start 08/17/16 at 21:00 Doxazosin Mesylate (Cardura) 4 mg HS PO Last administered on 08/29/16 21:14; Admin Dose 4 MG; Start 08/19/16 at 21:00 Lorazepam (Ativan) 0.5 mg Q8H PRN PO ANXIETY; Start 08/19/16 at 14:00 Losartan Potassium (Cozaar) 50 mg DAILY PO Last administered on 08/30/16 08:50 ; Admin Dose 50 MG; Start 08/20/16 at 09:00 Amlodipine Besylate (Norvasc) 5 mg BID PO Last administered on 08/30/16 08:49 ; Admin Dose 5 MG; Start 08/23/16 at 21:00 Furosemide (Lasix) 40 mg BID PO Last administered on 08/30/16 08:50; Admin Dose 40 MG; Start 08/25/16 at 09:00 Polyethylene Glycol (Miralax) 17 gm BID PO Last administered on 08/30/16 08:49 ; Admin Dose 17 GM; Start 08/26/16 at 09:00 Bisacodyl (Dulcolax) 10 mg DAILY PRN PO CONSTIPATION Last administered on 16:27; Admin Dose 10 MG; Start 08/26/16 at 08:00 BALDOMERO HARRINGTON DO Aug 30, 2016 10:53
--- NOTE | 2016-08-30 12:11 | RADRPT ---
PROCEDURE: US bilateral lower extremity veins. CLINICAL INDICATION: Bilateral leg pain and swelling. TECHNIQUE: Multiple longitudinal and transverse images of the bilateral lower extremity veins were obtained with nascimento scale and color Doppler imaging. The common femoral vein, femoral vein, and popl iteal vein were evaluated. 2D grayscale measurements with compression sonography, color Doppler, and pulsed Doppler with augmentation. COMPARISON: No prior studies are available for comparison. FINDINGS: The bilateral common femoral, femoral and popliteal veins are normally compressible throughout. Col or flow demonstrates normal filling of the vessels. Normal waveforms are visualized and there is no rmal response to augmentation. There is a right popliteal fossa Valdez's cyst measuring 2.7 x 1.5 x 3.0 cm. IMPRESSION: 1. No evidence of deep vein thrombosis involving either lower extremity. 2. Right popliteal fossa Valdez's cyst measuring 2.7 x 1.5 x 3.0 cm. RPTAT: QQ .Chalo Tapia MD, MD Date Time Electronically viewed and signed by .Chalo Tapia MD, on 08/30/2016 12:10 .R/
[2016-08-30 20:41] VITALS: BP 146/83; RESP 20
[2016-08-30] MEDS: DOXAZOSIN 4 MG TAB PO SCH (21:13)
[2016-08-31] MEDS: PANTOPRAZOLE (EC) 40 MG TAB PO SCH (05:29)
[2016-08-31] MEDS: LEVOTHYROXINE 175 MCG TAB PO SCH (05:29)
[2016-08-31 07:45] VITALS: BP 134/78; RESP 20
[2016-08-31] MEDS: ALBUTEROL/IPRATROPIUM (NEB) 3 ML AMP HHN SCH ×3 (07:49→20:20)
[2016-08-31] MEDS: INSULIN ASPART [NOVOLOG] 3 ML PEN SC SCH ×4 (08:15→20:39)
[2016-08-31] MEDS: POLYETHYLENE GLYCOL 17 GM PACKET PO SCH ×2 (09:08→20:38)
[2016-08-31] MEDS: CA CARBONATE (250 MG/ML) 5ML CUP NGT SCH ×2 (09:08→20:38)
[2016-08-31] MEDS: FUROSEMIDE 40 MG TAB PO SCH ×2 (09:09→20:39)
[2016-08-31] MEDS: AMLODIPINE 5 MG TAB PO SCH ×2 (09:09→20:39)
[2016-08-31] MEDS: LOSARTAN 50 MG TAB PO SCH (09:09)
--- NOTE | 2016-08-31 09:17 | PN ---
Date/Time of Note Date/Time of Note DATE: 08/31/16 TIME: 09:16 Assessment/Plan VTE Prophylaxis VTE Prophylaxis Intervention: other Lines/Catheters IV [facility] Type (from [facility]): Saline Lock Urinary Cath still in place: Yes Reason Cath still needed: other (indicate) Assessment/Plan Chief Complaint/Hosp Course 1. Nonoliguric acute kidney injury with unknown baseline creatinine. Etiology secondary to acute tubular necrosis. The patient is status post hemodialysis. Patient's renal function has improved. Continue current treatment plan, supportive care, renally dose medications. 2. Acute congestive heart failure exacerbation. The patient is clinically improving. Continue current diuretic regimen. Follow up with cardiology. 3. Mineral bone disorder. Continue to monitor calcium and phosphorus levels. 4. Anemia. Continue to monitor hemoglobin and hematocrit levels. 5. Acute hypoxemic respiratory failure secondary to pneumonia and congestive heart failure. The patient clinically improving. Continue medical management. Continue supplemental oxygen. 6. Sepsis, status post shock. Continue current antibiotic course. 7. Hypothyroidism. Continue Synthroid. 8. Diabetes, continue Accu-Cheks and sliding scale. 9. History of ETOH abuse. 10. Status post cardiopulmonary arrest. Problems: Subjective 24 Hr Interval Summary Free Text/Dictation Patient clinically stable no acute overnight Exam/Review of Systems Vital Signs Vitals Vital Signs Date Time Temp Pulse Resp B/P Pulse Ox O2 Delivery O2 Flow Rate FiO2 08/31/16 07:51 95 20 98 21 08/31/16 07:45 98.0 134/78 08/30/16 08:37 Nasal Cannula 1.5 Intake and Output 08/30/16 08/30/16 08/31/16 15:00 23:00 07:00 Intake Total 1080 ml 500 ml Output Total 1000 ml 1100 ml Balance 80 ml -600 ml Exam HEENT: Head is normocephalic. NECK: Supple. HEART: Regular rate. LUNGS: Show diminished breath sounds at base. ABDOMEN: Soft, nontender to palpation. No rebound or guarding. EXTREMITIES: Negative for clubbing, cyanosis, no edema. DERMATOLOGIC: No rashes. MUSCULOSKELETAL: No joint effusions. NEUROLOGIC: No change in exam. Results Result Diagram: 08/28/16 0505 08/29/16 0052 Results 24 hrs Laboratory Tests Test 08/30/16 12:15 08/30/16 17:36 08/30/16 21:18 08/31/16 05:05 Bedside Glucose 95 111 101 Thyroid Stimulating Hormone (TSH) 19.200 H Test 08/31/16 08:13 Bedside Glucose 82 Medications Medications Current Medications Ondansetron HCl (Zofran Inj) 4 mg Q6H PRN IV NAUSEA AND/OR VOMITING; Start at 03:00 Metoclopramide HCl (Reglan) 10 mg Q6H PRN IV NAUSEA AND/OR VOMITING; Start at 03:00 Acetaminophen (Tylenol Tab) 650 mg Q6H PRN PO PAIN LEVEL 1-3 OR FEVER Last administered on 08/26/16 16:27; Admin Dose 650 MG; Start 08/01/16 at 03:00 Acetaminophen (Tylenol Supp) 650 mg Q4H PRN [place] PAIN LEVEL 1-3 OR FEVER; Start 08/01/16 at 06:30 Miscellaneous Information 1 ea NOTE XX ; Start 08/02/16 at 09:00 Glucose (Glutose) 15 gm Q15M PRN PO DECREASED GLUCOSE; Start 08/02/16 at 09:00 Glucose (Glutose) 22.5 gm Q15M PRN PO DECREASED GLUCOSE; Start 08/02/16 at 09:00 Dextrose (D50w Syringe) 25 ml Q15M PRN IV DECREASED GLUCOSE Last administered on 08/16/16 06:30; Admin Dose 25 ML; Start 08/02/16 at 09:00 Dextrose (D50w Syringe) 50 ml Q15M PRN IV DECREASED GLUCOSE; Start 08/02/16 at 09:00 Glucagon (Glucagen) 1 mg Q15M PRN IM DECREASED GLUCOSE; Start 08/02/16 at 09:00 Glucose (Glutose) 15 gm Q15M PRN BUCCAL DECREASED GLUCOSE; Start 08/02/16 at 09: 00 Calcium Carbonate (Ca Carbonate) 1,250 mg Q12 NGT Last administered on 21:12; Admin Dose 1,250 MG; Start 08/11/16 at 09:00 IV Flush (NS 10 ml) 10 ml PRN PRN IV FLUSH LINE; Start 08/11/16 at 20:00 Hydralazine HCl (Apresoline) 10 mg Q4H PRN IV SBP >160 Last administered on 23:33; Admin Dose 10 MG; Start 08/13/16 at 03:30 Hydromorphone HCl (Dilaudid) 1 mg Q4H PRN IV PAIN Last administered on 18:47; Admin Dose 1 MG; Start 08/16/16 at 08:30 Levothyroxine Sodium (Synthroid) 175 mcg DAILY@06 PO Last administered on 05:29; Admin Dose 175 MCG; Start 08/18/16 at 06:00 Pantoprazole (Protonix Tab) 40 mg DAILY@06 PO Last administered on 08/31/16 05 :29; Admin Dose 40 MG; Start 08/18/16 at 06:00 Doxazosin Mesylate (Cardura) 4 mg HS PO Last administered on 08/30/16 21:13; Admin Dose 4 MG; Start 08/19/16 at 21:00 Lorazepam (Ativan) 0.5 mg Q8H PRN PO ANXIETY; Start 08/19/16 at 14:00 Losartan Potassium (Cozaar) 50 mg DAILY PO Last administered on 08/30/16 08:50 ; Admin Dose 50 MG; Start 08/20/16 at 09:00 Amlodipine Besylate (Norvasc) 5 mg BID PO Last administered on 08/30/16 21:13 ; Admin Dose 5 MG; Start 08/23/16 at 21:00 Furosemide (Lasix) 40 mg BID PO Last administered on 08/30/16 21:13; Admin Dose 40 MG; Start 08/25/16 at 09:00 Polyethylene Glycol (Miralax) 17 gm BID PO Last administered on 08/30/16 21:12 ; Admin Dose 17 GM; Start 08/26/16 at 09:00 Bisacodyl (Dulcolax) 10 mg DAILY PRN PO CONSTIPATION Last administered on 16:27; Admin Dose 10 MG; Start 08/26/16 at 08:00 Enoxaparin Sodium (Lovenox) 40 mg DAILY SC ; Start 08/31/16 at 09:00 BALDOMERO HARRINGTON DO Aug 31, 2016 09:17
[2016-08-31] MEDS: ENOXAPARIN 40 MG/0.4 ML SYG SC SCH (09:45)
--- NOTE | 2016-08-31 10:08 | PN ---
Date/Time of Note Date/Time of Note DATE: 08/31/16 TIME: 10:04 Assessment/Plan VTE Prophylaxis VTE Prophylaxis Intervention: LMWH Lines/Catheters IV C[facility] Type (from [facility]): Saline Lock Urinary Cath still in place: Yes Reason Cath still needed: urinary retention Assessment/Plan Chief Complaint/Hosp Course A/P: 60 M with: 1. Status post PEA cardiac arrest secondary to severe metabolic acidosis. The patient is being followed by Cardiology. As per Cardiology, there is no cardiac etiology to suggest the cardiac arrest. - monitor 2. Acute on chronic diastolic heart faded. Improving with diuresis. 3. Acute kidney injury that required temporary hemodialysis. Currently, off hemodialysis. Being followed by Nephrology. 4. Essential hypertension. Continue antihypertensives. 5. Acute encephalopathy secondary to #1, improving. 6. Acute respiratory failure with ARDS and pulmonary edema, status post mechanical ventilation, currently extubated. 7. Status post sepsis, probably secondary to underlying aspiration pneumonia. 8. Hypothyroidism, severe. Continue Synthroid. 9. Debility. Status post evaluation by physical therapy. Physical therapy is recommending shelter facility versus acute rehabilitation unit for further rehabilitation. 10. Normocytic normochromic anemia. Continue to monitor H and H closely. 11. Diabetes mellitus. Hemoglobin A1c 5.0. Continue sliding scale insulin. 12. Occlusive thrombosis of the left cephalic vein - off anticoagulation for DVT tx - monitor, warm compresses prn 13. Fluid, electrolytes, and nutrition. Mechanical soft diet. Aspiration precautions. 14. DVT prophylaxis. Subcutaneous Lovenox. 15. Gastrointestinal prophylaxis. Proton pump inhibitors. Plan. Await placement. Continue current management. Problems: Subjective 24 Hr Interval Summary Free Text/Dictation No acute events overnight. Seen by renal team this AM. Exam/Review of Systems Vital Signs Vitals Vital Signs Date Time Temp Pulse Resp B/P Pulse Ox O2 Delivery O2 Flow Rate FiO2 08/31/16 07:51 95 20 98 21 08/31/16 07:45 98.0 134/78 08/30/16 08:37 Nasal Cannula 1.5 Intake and Output 08/30/16 08/30/16 08/31/16 15:00 23:00 07:00 Intake Total 1080 ml 500 ml Output Total 1000 ml 1100 ml Balance 80 ml -600 ml Exam GENERAL: obese male lying in bed in no apparent distress. HEENT: Head normocephalic and atraumatic. Eyes: Anicteric sclerae. Conjunctivae clear. ENT: Nasal septum is midline. Oral mucosa is dry. NECK: Supple. No JVD noticed. RESPIRATORY: less bilaterally diminished breath sounds. No use of accessory muscles of respiration. CARDIAC: Regular rate and rhythm. S1 and S2 heard. ABDOMEN: Soft, nontender and nondistended. Bowel sounds positive in all 4 quadrants. EXTREMITIES: No cyanosis, no clubbing. Bilateral lower extremity 1 + pitting edema. Peripheral pulses are diminished. NEUROLOGIC: The patient is awake, alert, and oriented. Results Result Diagram: 08/28/16 0505 08/29/16 0052 Results 24 hrs Laboratory Tests Test 08/30/16 12:15 08/30/16 17:36 08/30/16 21:18 08/31/16 05:05 Bedside Glucose 95 111 101 Thyroid Stimulating Hormone (TSH) 19.200 H Test 08/31/16 08:13 Bedside Glucose 82 Medications Medications Current Medications Ondansetron HCl (Zofran Inj) 4 mg Q6H PRN IV NAUSEA AND/OR VOMITING; Start at 03:00 Metoclopramide HCl (Reglan) 10 mg Q6H PRN IV NAUSEA AND/OR VOMITING; Start at 03:00 Acetaminophen (Tylenol Tab) 650 mg Q6H PRN PO PAIN LEVEL 1-3 OR FEVER Last administered on 08/26/16 16:27; Admin Dose 650 MG; Start 08/01/16 at 03:00 Acetaminophen (Tylenol Supp) 650 mg Q4H PRN [place] PAIN LEVEL 1-3 OR FEVER; Start 08/01/16 at 06:30 Miscellaneous Information 1 ea NOTE XX ; Start 08/02/16 at 09:00 Glucose (Glutose) 15 gm Q15M PRN PO DECREASED GLUCOSE; Start 08/02/16 at 09:00 Glucose (Glutose) 22.5 gm Q15M PRN PO DECREASED GLUCOSE; Start 08/02/16 at 09:00 Dextrose (D50w Syringe) 25 ml Q15M PRN IV DECREASED GLUCOSE Last administered on 08/16/16 06:30; Admin Dose 25 ML; Start 08/02/16 at 09:00 Dextrose (D50w Syringe) 50 ml Q15M PRN IV DECREASED GLUCOSE; Start 08/02/16 at 09:00 Glucagon (Glucagen) 1 mg Q15M PRN IM DECREASED GLUCOSE; Start 08/02/16 at 09:00 Glucose (Glutose) 15 gm Q15M PRN BUCCAL DECREASED GLUCOSE; Start 08/02/16 at 09: 00 Calcium Carbonate (Ca Carbonate) 1,250 mg Q12 NGT Last administered on 09:08; Admin Dose 1,250 MG; Start 08/11/16 at 09:00 IV Flush (NS 10 ml) 10 ml PRN PRN IV FLUSH LINE; Start 08/11/16 at 20:00 Hydralazine HCl (Apresoline) 10 mg Q4H PRN IV SBP >160 Last administered on 23:33; Admin Dose 10 MG; Start 08/13/16 at 03:30 Hydromorphone HCl (Dilaudid) 1 mg Q4H PRN IV PAIN Last administered on 18:47; Admin Dose 1 MG; Start 08/16/16 at 08:30 Levothyroxine Sodium (Synthroid) 175 mcg DAILY@06 PO Last administered on 05:29; Admin Dose 175 MCG; Start 08/18/16 at 06:00 Pantoprazole (Protonix Tab) 40 mg DAILY@06 PO Last administered on 08/31/16 05 :29; Admin Dose 40 MG; Start 08/18/16 at 06:00 Doxazosin Mesylate (Cardura) 4 mg HS PO Last administered on 08/30/16 21:13; Admin Dose 4 MG; Start 08/19/16 at 21:00 Lorazepam (Ativan) 0.5 mg Q8H PRN PO ANXIETY; Start 08/19/16 at 14:00 Losartan Potassium (Cozaar) 50 mg DAILY PO Last administered on 08/31/16 09:09 ; Admin Dose 50 MG; Start 08/20/16 at 09:00 Amlodipine Besylate (Norvasc) 5 mg BID PO Last administered on 08/31/16 09:09 ; Admin Dose 5 MG; Start 08/23/16 at 21:00 Furosemide (Lasix) 40 mg BID PO Last administered on 08/31/16 09:09; Admin Dose 40 MG; Start 08/25/16 at 09:00 Polyethylene Glycol (Miralax) 17 gm BID PO Last administered on 08/31/16 09:08 ; Admin Dose 17 GM; Start 08/26/16 at 09:00 Bisacodyl (Dulcolax) 10 mg DAILY PRN PO CONSTIPATION Last administered on 16:27; Admin Dose 10 MG; Start 08/26/16 at 08:00 Enoxaparin Sodium (Lovenox) 40 mg DAILY SC Last administered on 08/31/16 09:45 ; Admin Dose 40 MG; Start 08/31/16 at 09:00 CAM CLOON Aug 31, 2016 10:08
[2016-08-31 19:51] VITALS: BP 125/70; RESP 20
[2016-08-31] MEDS: DOXAZOSIN 4 MG TAB PO SCH (20:39)
[2016-09-01] MEDS: PANTOPRAZOLE (EC) 40 MG TAB PO SCH (06:07)
[2016-09-01] MEDS: LEVOTHYROXINE 175 MCG TAB PO SCH (06:07)
[2016-09-01 07:28] VITALS: BP 151/77; RESP 20
[2016-09-01] MEDS: ALBUTEROL/IPRATROPIUM (NEB) 3 ML AMP HHN SCH ×3 (07:31→20:24)
[2016-09-01] MEDS: INSULIN ASPART [NOVOLOG] 3 ML PEN SC SCH ×4 (08:15→20:53)
[2016-09-01] MEDS: FUROSEMIDE 40 MG TAB PO SCH ×2 (08:47→20:49)
[2016-09-01] MEDS: CA CARBONATE (250 MG/ML) 5ML CUP NGT SCH ×2 (08:47→20:48)
[2016-09-01] MEDS: LOSARTAN 50 MG TAB PO SCH (08:47)
[2016-09-01] MEDS: AMLODIPINE 5 MG TAB PO SCH ×2 (08:47→20:49)
[2016-09-01] MEDS: POLYETHYLENE GLYCOL 17 GM PACKET PO SCH ×2 (08:50→20:48)
[2016-09-01] MEDS: ENOXAPARIN 40 MG/0.4 ML SYG SC SCH (09:00)
--- NOTE | 2016-09-01 09:04 | PN ---
Date/Time of Note Date/Time of Note DATE: 09/01/16 TIME: 09:03 Assessment/Plan VTE Prophylaxis VTE Prophylaxis Intervention: ambulation Lines/Catheters IV [facility] Type [facility]from [facility] Saline Lock Urinary Cath still in place: Yes Reason Cath still needed: urinary retention Assessment/Plan Chief Complaint/Hosp Course 1. Nonoliguric acute kidney injury with unknown baseline creatinine. Etiology secondary to acute tubular necrosis. The patient is status post hemodialysis. Patient's renal function has improved. Continue current treatment plan, supportive care, renally dose medications. 2. Acute congestive heart failure exacerbation. The patient is clinically improving. Continue current diuretic regimen. Follow up with cardiology. 3. Mineral bone disorder. Continue to monitor calcium and phosphorus levels. 4. Anemia. Continue to monitor hemoglobin and hematocrit levels. 5. Acute hypoxemic respiratory failure secondary to pneumonia and congestive heart failure. The patient clinically improving. Continue medical management. Continue supplemental oxygen. 6. Sepsis, status post shock. Continue current antibiotic course. 7. Hypothyroidism. Continue Synthroid. 8. Diabetes, continue Accu-Cheks and sliding scale. 9. History of ETOH abuse. 10. Status post cardiopulmonary arrest. Problems: Subjective 24 Hr Interval Summary Free Text/Dictation Patient stable no acute events Exam/Review of Systems Vital Signs Vitals Vital Signs Date Time Temp Pulse Resp B/P Pulse Ox O2 Delivery O2 Flow Rate FiO2 09/01/16 07:31 96 21 09/01/16 07:31 16 09/01/16 07:28 98.1 86 151/77 09/01/16 01:54 1.0 08/30/16 08:37 Nasal Cannula Intake and Output 08/31/16 08/31/16 09/01/16 15:00 23:00 07:00 Intake Total 720 ml 300 ml Output Total 700 ml 1000 ml Balance 20 ml -700 ml Exam HEENT: Head is normocephalic. NECK: Supple. HEART: Regular rate. LUNGS: Show diminished breath sounds at base. ABDOMEN: Soft, nontender to palpation. No rebound or guarding. EXTREMITIES: Negative for clubbing, cyanosis, no edema. DERMATOLOGIC: No rashes. MUSCULOSKELETAL: No joint effusions. NEUROLOGIC: No change in exam. Results Result Diagram: 08/28/16 0505 08/29/16 0052 Results 24 hrs Laboratory Tests Test 08/31/16 12:14 08/31/16 18:05 08/31/16 20:36 09/01/16 07:55 Bedside Glucose 113 107 118 92 Medications Medications Current Medications Ondansetron HCl (Zofran Inj) 4 mg Q6H PRN IV NAUSEA AND/OR VOMITING; Start at 03:00 Metoclopramide HCl (Reglan) 10 mg Q6H PRN IV NAUSEA AND/OR VOMITING; Start at 03:00 Acetaminophen (Tylenol Tab) 650 mg Q6H PRN PO PAIN LEVEL 1-3 OR FEVER Last administered on 08/26/16 16:27; Admin Dose 650 MG; Start 08/01/16 at 03:00 Acetaminophen (Tylenol Supp) 650 mg Q4H PRN [place] PAIN LEVEL 1-3 OR FEVER; Start 08/01/16 at 06:30 Miscellaneous Information 1 ea NOTE XX ; Start 08/02/16 at 09:00 Glucose (Glutose) 15 gm Q15M PRN PO DECREASED GLUCOSE; Start 08/02/16 at 09:00 Glucose (Glutose) 22.5 gm Q15M PRN PO DECREASED GLUCOSE; Start 08/02/16 at 09:00 Dextrose (D50w Syringe) 25 ml Q15M PRN IV DECREASED GLUCOSE Last administered on 08/16/16 06:30; Admin Dose 25 ML; Start 08/02/16 at 09:00 Dextrose (D50w Syringe) 50 ml Q15M PRN IV DECREASED GLUCOSE; Start 08/02/16 at 09:00 Glucagon (Glucagen) 1 mg Q15M PRN IM DECREASED GLUCOSE; Start 08/02/16 at 09:00 Glucose (Glutose) 15 gm Q15M PRN BUCCAL DECREASED GLUCOSE; Start 08/02/16 at 09: 00 Calcium Carbonate (Ca Carbonate) 1,250 mg Q12 NGT Last administered on 08:47; Admin Dose 1,250 MG; Start 08/11/16 at 09:00 IV Flush (NS 10 ml) 10 ml PRN PRN IV FLUSH LINE; Start 08/11/16 at 20:00 Hydralazine HCl (Apresoline) 10 mg Q4H PRN IV SBP >160 Last administered on 23:33; Admin Dose 10 MG; Start 08/13/16 at 03:30 Hydromorphone HCl (Dilaudid) 1 mg Q4H PRN IV PAIN Last administered on 18:47; Admin Dose 1 MG; Start 08/16/16 at 08:30 Levothyroxine Sodium (Synthroid) 175 mcg DAILY@06 PO Last administered on 06:07; Admin Dose 175 MCG; Start 08/18/16 at 06:00 Pantoprazole (Protonix Tab) 40 mg DAILY@06 PO Last administered on 09/01/16 06: 07; Admin Dose 40 MG; Start 08/18/16 at 06:00 Doxazosin Mesylate (Cardura) 4 mg HS PO Last administered on 08/31/16 20:39; Admin Dose 4 MG; Start 08/19/16 at 21:00 Lorazepam (Ativan) 0.5 mg Q8H PRN PO ANXIETY; Start 08/19/16 at 14:00 Losartan Potassium (Cozaar) 50 mg DAILY PO Last administered on 09/01/16 08:47 ; Admin Dose 50 MG; Start 08/20/16 at 09:00 Amlodipine Besylate (Norvasc) 5 mg BID PO Last administered on 09/01/16 08:47; Admin Dose 5 MG; Start 08/23/16 at 21:00 Furosemide (Lasix) 40 mg BID PO Last administered on 09/01/16 08:47; Admin Dose 40 MG; Start 08/25/16 at 09:00 Polyethylene Glycol (Miralax) 17 gm BID PO Last administered on 09/01/16 08:50 ; Admin Dose 17 GM; Start 08/26/16 at 09:00 Bisacodyl (Dulcolax) 10 mg DAILY PRN PO CONSTIPATION Last administered on 16:27; Admin Dose 10 MG; Start 08/26/16 at 08:00 Enoxaparin Sodium (Lovenox) 40 mg DAILY SC Last administered on 09/01/16 09:00 ; Admin Dose 40 MG; Start 08/31/16 at 09:00 BALDOMERO HARRINGTON DO Sep 01, 2016 09:04
--- NOTE | 2016-09-01 14:28 | PN ---
Date/Time of Note Date/Time of Note DATE: 09/01/16 TIME: 14:26 Assessment/Plan VTE Prophylaxis VTE Prophylaxis Intervention: LMWH Lines/Catheters IV Catheter Type (from [facility]): Saline Lock Urinary Cath still in place: Yes Reason Cath still needed: other (indicate) Assessment/Plan Chief Complaint/Hosp Course 1. Status post PEA cardiac arrest secondary to severe metabolic acidosis. The patient is being followed by Cardiology. As per Cardiology, there is no cardiac etiology to suggest the cardiac arrest. 2. Acute on chronic diastolic heart faded. Improving with diuresis. 3. Acute kidney injury that required temporary hemodialysis. Currently, off hemodialysis. Being followed by Nephrology. 4. Essential hypertension. Continue antihypertensives. 5. Acute encephalopathy secondary to #1, improving. 6. Acute respiratory failure with ARDS and pulmonary edema, status post mechanical ventilation, currently extubated. 7. Status post sepsis, probably secondary to underlying aspiration pneumonia. 8. Hypothyroidism, severe. Continue Synthroid. 9. Debility. Status post evaluation by physical therapy. Physical therapy is recommending [facility] versus acute rehabilitation unit for further rehabilitation. 10. Normocytic normochromic anemia. Continue to monitor H and H closely. 11. Diabetes mellitus. Hemoglobin A1c 5.0. Continue sliding scale insulin. 12. Occlusive thrombosis of the left cephalic vein. Continue routine anticoagulation. 13. Fluid, electrolytes, and nutrition. Mechanical soft diet. Aspiration precautions. 14. DVT prophylaxis. Subcutaneous Lovenox. 15. Gastrointestinal prophylaxis. Proton pump inhibitors. Plan. Await placement. Continue current management. Case discussed with Dr. Tello. Problems: Subjective 24 Hr Interval Summary Free Text/Dictation No changes in status. Awaiting placement. Exam/Review of Systems Vital Signs Vitals Vital Signs Date Time Temp Pulse Resp B/P Pulse Ox O2 Delivery O2 Flow Rate FiO2 09/01/16 13:38 99 16 95 21 09/01/16 07:28 98.1 151/77 09/01/16 01:54 1.0 08/30/16 08:37 Nasal Cannula Intake and Output 08/31/16 08/31/16 09/01/16 15:00 23:00 07:00 Intake Total 720 ml 300 ml Output Total 700 ml 1000 ml Balance 20 ml -700 ml Exam GENERAL: This is an obese male lying in bed in no apparent distress. HEENT: Head normocephalic and atraumatic. Eyes: Anicteric sclerae. Conjunctivae clear. ENT: Nasal septum is midline. Oral mucosa is dry. NECK: Supple. No JVD noticed. RESPIRATORY: Bilaterally diminished breath sounds. No adventitious breath sounds. No use of accessory muscles of respiration. CARDIAC: Regular rate and rhythm. S1 and S2 heard. ABDOMEN: Soft, nontender and nondistended. Bowel sounds positive in all 4 quadrants. GENITOURINARY: Deferred. EXTREMITIES: No cyanosis, no clubbing. Bilateral lower extremity 1 to 2+ pitting edema. Peripheral pulses are diminished. NEUROLOGIC: The patient is awake, alert, and oriented. Results Result Diagram: 08/28/16 0505 08/29/16 0052 Results 24 hrs Laboratory Tests Test 08/31/16 18:05 08/31/16 20:36 09/01/16 07:55 09/01/16 11:51 Bedside Glucose 107 118 92 108 Medications Medications Current Medications Ondansetron HCl (Zofran Inj) 4 mg Q6H PRN IV NAUSEA AND/OR VOMITING; Start at 03:00 Metoclopramide HCl (Reglan) 10 mg Q6H PRN IV NAUSEA AND/OR VOMITING; Start at 03:00 Acetaminophen (Tylenol Tab) 650 mg Q6H PRN PO PAIN LEVEL 1-3 OR FEVER Last administered on 08/26/16 16:27; Admin Dose 650 MG; Start 08/01/16 at 03:00 Acetaminophen (Tylenol Supp) 650 mg Q4H PRN [place] PAIN LEVEL 1-3 OR FEVER; Start 08/01/16 at 06:30 Miscellaneous Information 1 ea NOTE XX ; Start 08/02/16 at 09:00 Glucose (Glutose) 15 gm Q15M PRN PO DECREASED GLUCOSE; Start 08/02/16 at 09:00 Glucose (Glutose) 22.5 gm Q15M PRN PO DECREASED GLUCOSE; Start 08/02/16 at 09:00 Dextrose (D50w Syringe) 25 ml Q15M PRN IV DECREASED GLUCOSE Last administered on 08/16/16 06:30; Admin Dose 25 ML; Start 08/02/16 at 09:00 Dextrose (D50w Syringe) 50 ml Q15M PRN IV DECREASED GLUCOSE; Start 08/02/16 at 09:00 Glucagon (Glucagen) 1 mg Q15M PRN IM DECREASED GLUCOSE; Start 08/02/16 at 09:00 Glucose (Glutose) 15 gm Q15M PRN BUCCAL DECREASED GLUCOSE; Start 08/02/16 at 09: 00 Calcium Carbonate (Ca Carbonate) 1,250 mg Q12 NGT Last administered on 08:47; Admin Dose 1,250 MG; Start 08/11/16 at 09:00 IV Flush (NS 10 ml) 10 ml PRN PRN IV FLUSH LINE; Start 08/11/16 at 20:00 Hydralazine HCl (Apresoline) 10 mg Q4H PRN IV SBP >160 Last administered on 23:33; Admin Dose 10 MG; Start 08/13/16 at 03:30 Hydromorphone HCl (Dilaudid) 1 mg Q4H PRN IV PAIN Last administered on 18:47; Admin Dose 1 MG; Start 08/16/16 at 08:30 Levothyroxine Sodium (Synthroid) 175 mcg DAILY@06 PO Last administered on 06:07; Admin Dose 175 MCG; Start 08/18/16 at 06:00 Pantoprazole (Protonix Tab) 40 mg DAILY@06 PO Last administered on 09/01/16 06: 07; Admin Dose 40 MG; Start 08/18/16 at 06:00 Doxazosin Mesylate (Cardura) 4 mg HS PO Last administered on 08/31/16 20:39; Admin Dose 4 MG; Start 08/19/16 at 21:00 Lorazepam (Ativan) 0.5 mg Q8H PRN PO ANXIETY; Start 08/19/16 at 14:00 Losartan Potassium (Cozaar) 50 mg DAILY PO Last administered on 09/01/16 08:47 ; Admin Dose 50 MG; Start 08/20/16 at 09:00 Amlodipine Besylate (Norvasc) 5 mg BID PO Last administered on 09/01/16 08:47; Admin Dose 5 MG; Start 08/23/16 at 21:00 Furosemide (Lasix) 40 mg BID PO Last administered on 09/01/16 08:47; Admin Dose 40 MG; Start 08/25/16 at 09:00 Polyethylene Glycol (Miralax) 17 gm BID PO Last administered on 09/01/16 08:50 ; Admin Dose 17 GM; Start 08/26/16 at 09:00 Bisacodyl (Dulcolax) 10 mg DAILY PRN PO CONSTIPATION Last administered on 16:27; Admin Dose 10 MG; Start 08/26/16 at 08:00 Enoxaparin Sodium (Lovenox) 40 mg DAILY SC Last administered on 09/01/16 09:00 ; Admin Dose 40 MG; Start 08/31/16 at 09:00 SRINIVASA HUNT NP Sep 01, 2016 14:27
[2016-09-01 19:18] VITALS: BP 132/73; RESP 18
[2016-09-01] MEDS: DOXAZOSIN 4 MG TAB PO SCH (20:48)
[2016-09-02] MEDS: LEVOTHYROXINE 175 MCG TAB PO SCH (06:05)
[2016-09-02] MEDS: PANTOPRAZOLE (EC) 40 MG TAB PO SCH (06:05)
[2016-09-02 07:44] VITALS: BP 131/80; RESP 16
[2016-09-02] MEDS: INSULIN ASPART [NOVOLOG] 3 ML PEN SC SCH ×4 (08:15→20:47)
[2016-09-02] MEDS: CA CARBONATE (250 MG/ML) 5ML CUP NGT SCH ×2 (08:34→20:43)
[2016-09-02] MEDS: FUROSEMIDE 40 MG TAB PO SCH ×2 (08:34→21:03)
[2016-09-02] MEDS: POLYETHYLENE GLYCOL 17 GM PACKET PO SCH ×2 (08:35→21:03)
[2016-09-02] MEDS: AMLODIPINE 5 MG TAB PO SCH ×2 (08:35→21:03)
[2016-09-02] MEDS: LOSARTAN 50 MG TAB PO SCH (08:35)
[2016-09-02] MEDS: ENOXAPARIN 40 MG/0.4 ML SYG SC SCH (08:38)
[2016-09-02] MEDS: ALBUTEROL/IPRATROPIUM (NEB) 3 ML AMP HHN SCH ×3 (08:40→20:34)
--- NOTE | 2016-09-02 09:25 | PN ---
Date/Time of Note Date/Time of Note DATE: 09/02/16 TIME: 09:24 Assessment/Plan VTE Prophylaxis VTE Prophylaxis Intervention: other Lines/Catheters [facility] Saline Lock Urinary Cath still in place: Yes Reason Cath still needed: other (indicate) Assessment/Plan Chief Complaint/Hosp Course 1. Nonoliguric acute kidney injury with unknown baseline creatinine. Etiology secondary to acute tubular necrosis. The patient is status post hemodialysis. Patient's renal function has improved. Continue current treatment plan, supportive care, renally dose medications. 2. Acute congestive heart failure exacerbation. The patient is clinically improving. Continue current diuretic regimen. Follow up with cardiology. 3. Mineral bone disorder. Continue to monitor calcium and phosphorus levels. 4. Anemia. Continue to monitor hemoglobin and hematocrit levels. 5. Acute hypoxemic respiratory failure secondary to pneumonia and congestive heart failure. The patient clinically improving. Continue medical management. Continue supplemental oxygen. 6. Sepsis, status post shock. Continue current antibiotic course. 7. Hypothyroidism. Continue Synthroid. 8. Diabetes, continue Accu-Cheks and sliding scale. 9. History of ETOH abuse. 10. Status post cardiopulmonary arrest. Problems: Subjective 24 Hr Interval Summary Free Text/Dictation Patient stable no events overnight Exam/Review of Systems Vital Signs Vitals Vital Signs Date Time Temp Pulse Resp B/P Pulse Ox O2 Delivery O2 Flow Rate FiO2 09/02/16 08:41 101 18 96 21 09/02/16 07:44 98.7 131/80 09/01/16 01:54 1.0 08/30/16 08:37 Nasal Cannula Intake and Output 09/01/16 09/01/16 09/02/16 15:00 23:00 07:00 Intake Total 880 ml 480 ml Output Total 600 ml 1000 ml Balance 280 ml -520 ml Exam HEENT: Head is normocephalic. NECK: Supple. HEART: Regular rate. LUNGS: Show diminished breath sounds at base. ABDOMEN: Soft, nontender to palpation. No rebound or guarding. EXTREMITIES: Negative for clubbing, cyanosis, no edema. DERMATOLOGIC: No rashes. MUSCULOSKELETAL: No joint effusions. NEUROLOGIC: No change in exam. Results Result Diagram: 08/29/16 0052 Results 24 hrs Laboratory Tests Test 09/01/16 11:51 09/01/16 17:36 09/01/16 20:52 09/02/16 08:21 Bedside Glucose 108 96 115 79 Medications Medications Current Medications Ondansetron HCl (Zofran Inj) 4 mg Q6H PRN IV NAUSEA AND/OR VOMITING; Start at 03:00 Metoclopramide HCl (Reglan) 10 mg Q6H PRN IV NAUSEA AND/OR VOMITING; Start at 03:00 Acetaminophen (Tylenol Tab) 650 mg Q6H PRN PO PAIN LEVEL 1-3 OR FEVER Last administered on 08/26/16 16:27; Admin Dose 650 MG; Start 08/01/16 at 03:00 Acetaminophen (Tylenol Supp) 650 mg Q4H PRN [place] PAIN LEVEL 1-3 OR FEVER; Start 08/01/16 at 06:30 Miscellaneous Information 1 ea NOTE XX ; Start 08/02/16 at 09:00 Glucose (Glutose) 15 gm Q15M PRN PO DECREASED GLUCOSE; Start 08/02/16 at 09:00 Glucose (Glutose) 22.5 gm Q15M PRN PO DECREASED GLUCOSE; Start 08/02/16 at 09:00 Dextrose (D50w Syringe) 25 ml Q15M PRN IV DECREASED GLUCOSE Last administered on 08/16/16 06:30; Admin Dose 25 ML; Start 08/02/16 at 09:00 Dextrose (D50w Syringe) 50 ml Q15M PRN IV DECREASED GLUCOSE; Start 08/02/16 at 09:00 Glucagon (Glucagen) 1 mg Q15M PRN IM DECREASED GLUCOSE; Start 08/02/16 at 09:00 Glucose (Glutose) 15 gm Q15M PRN BUCCAL DECREASED GLUCOSE; Start 08/02/16 at 09: 00 Calcium Carbonate (Ca Carbonate) 1,250 mg Q12 NGT Last administered on 08:34; Admin Dose 1,250 MG; Start 08/11/16 at 09:00 IV Flush (NS 10 ml) 10 ml PRN PRN IV FLUSH LINE; Start 08/11/16 at 20:00 Hydralazine HCl (Apresoline) 10 mg Q4H PRN IV SBP >160 Last administered on 23:33; Admin Dose 10 MG; Start 08/13/16 at 03:30 Hydromorphone HCl (Dilaudid) 1 mg Q4H PRN IV PAIN Last administered on 18:47; Admin Dose 1 MG; Start 08/16/16 at 08:30 Levothyroxine Sodium (Synthroid) 175 mcg DAILY@06 PO Last administered on 06:05; Admin Dose 175 MCG; Start 08/18/16 at 06:00 Pantoprazole (Protonix Tab) 40 mg DAILY@06 PO Last administered on 09/02/16 06: 05; Admin Dose 40 MG; Start 08/18/16 at 06:00 Doxazosin Mesylate (Cardura) 4 mg HS PO Last administered on 09/01/16 20:48; Admin Dose 4 MG; Start 08/19/16 at 21:00 Lorazepam (Ativan) 0.5 mg Q8H PRN PO ANXIETY; Start 08/19/16 at 14:00 Losartan Potassium (Cozaar) 50 mg DAILY PO Last administered on 09/02/16 08:35 ; Admin Dose 50 MG; Start 08/20/16 at 09:00 Amlodipine Besylate (Norvasc) 5 mg BID PO Last administered on 09/02/16 08:35; Admin Dose 5 MG; Start 08/23/16 at 21:00 Furosemide (Lasix) 40 mg BID PO Last administered on 09/02/16 08:34; Admin Dose 40 MG; Start 08/25/16 at 09:00 Polyethylene Glycol (Miralax) 17 gm BID PO Last administered on 09/01/16 20:48 ; Admin Dose 17 GM; Start 08/26/16 at 09:00 Bisacodyl (Dulcolax) 10 mg DAILY PRN PO CONSTIPATION Last administered on 16:27; Admin Dose 10 MG; Start 08/26/16 at 08:00 Enoxaparin Sodium (Lovenox) 40 mg DAILY SC Last administered on 09/02/16 08:38 ; Admin Dose 40 MG; Start 08/31/16 at 09:00 BALDOMERO HARRINGTON DO Sep 02, 2016 09:25
--- NOTE | 2016-09-02 11:28 | PN ---
Date/Time of Note Date/Time of Note DATE: 09/02/16 TIME: 11:27 Assessment/Plan VTE Prophylaxis VTE Prophylaxis Intervention: LMWH Lines/Catheters IV Catheter Type (from [facility]): Saline Lock Urinary Cath still in place: Yes Reason Cath still needed: other (indicate) Assessment/Plan Chief Complaint/Hosp Course 1. Status post PEA cardiac arrest secondary to severe metabolic acidosis. The patient is being followed by Cardiology. As per Cardiology, there is no cardiac etiology to suggest the cardiac arrest. 2. Acute on chronic diastolic heart faded. Improving with diuresis. 3. Acute kidney injury that required temporary hemodialysis. Currently, off hemodialysis. Being followed by Nephrology. 4. Essential hypertension. Continue antihypertensives. 5. Acute encephalopathy secondary to #1, improving. 6. Acute respiratory failure with ARDS and pulmonary edema, status post mechanical ventilation, currently extubated. 7. Status post sepsis, probably secondary to underlying aspiration pneumonia. 8. Hypothyroidism, severe. Continue Synthroid. 9. Debility. Status post evaluation by physical therapy. Physical therapy is recommending [facility] versus acute rehabilitation unit for further rehabilitation. 10. Normocytic normochromic anemia. Continue to monitor H and H closely. 11. Diabetes mellitus. Hemoglobin A1c 5.0. Continue sliding scale insulin. 12. Occlusive thrombosis of the left cephalic vein. Continue routine anticoagulation. 13. Fluid, electrolytes, and nutrition. Mechanical soft diet. Aspiration precautions. 14. DVT prophylaxis. Subcutaneous Lovenox. 15. Gastrointestinal prophylaxis. Proton pump inhibitors. Plan. Await placement. Continue current management. Case discussed with Dr. Tello. Problems: Subjective 24 Hr Interval Summary Free Text/Dictation Vital signs stable. Await placement. Exam/Review of Systems Vital Signs Vitals Vital Signs Date Time Temp Pulse Resp B/P Pulse Ox O2 Delivery O2 Flow Rate FiO2 09/02/16 08:41 101 18 96 21 09/02/16 07:44 98.7 131/80 09/01/16 01:54 1.0 08/30/16 08:37 Nasal Cannula Intake and Output 09/01/16 09/01/16 09/02/16 15:00 23:00 07:00 Intake Total 880 ml 480 ml Output Total 600 ml 1000 ml Balance 280 ml -520 ml Exam GENERAL: This is an obese male lying in bed in no apparent distress. HEENT: Head normocephalic and atraumatic. Eyes: Anicteric sclerae. Conjunctivae clear. ENT: Nasal septum is midline. Oral mucosa is dry. NECK: Supple. No JVD noticed. RESPIRATORY: Bilaterally diminished breath sounds. No adventitious breath sounds. No use of accessory muscles of respiration. CARDIAC: Regular rate and rhythm. S1 and S2 heard. ABDOMEN: Soft, nontender and nondistended. Bowel sounds positive in all 4 quadrants. GENITOURINARY: Deferred. EXTREMITIES: No cyanosis, no clubbing. Bilateral lower extremity 1 to 2+ pitting edema. Peripheral pulses are diminished. NEUROLOGIC: The patient is awake, alert, and oriented. Results Result Diagram: 08/29/16 0052 Results 24 hrs Laboratory Tests Test 09/01/16 11:51 09/01/16 17:36 09/01/16 20:52 09/02/16 08:21 Bedside Glucose 108 96 115 79 Medications Medications Current Medications Ondansetron HCl (Zofran Inj) 4 mg Q6H PRN IV NAUSEA AND/OR VOMITING; Start at 03:00 Metoclopramide HCl (Reglan) 10 mg Q6H PRN IV NAUSEA AND/OR VOMITING; Start at 03:00 Acetaminophen (Tylenol Tab) 650 mg Q6H PRN PO PAIN LEVEL 1-3 OR FEVER Last administered on 08/26/16 16:27; Admin Dose 650 MG; Start 08/01/16 at 03:00 Acetaminophen (Tylenol Supp) 650 mg Q4H PRN [place] PAIN LEVEL 1-3 OR FEVER; Start 08/01/16 at 06:30 Miscellaneous Information 1 ea NOTE XX ; Start 08/02/16 at 09:00 Glucose (Glutose) 15 gm Q15M PRN PO DECREASED GLUCOSE; Start 08/02/16 at 09:00 Glucose (Glutose) 22.5 gm Q15M PRN PO DECREASED GLUCOSE; Start 08/02/16 at 09:00 Dextrose (D50w Syringe) 25 ml Q15M PRN IV DECREASED GLUCOSE Last administered on 08/16/16 06:30; Admin Dose 25 ML; Start 08/02/16 at 09:00 Dextrose (D50w Syringe) 50 ml Q15M PRN IV DECREASED GLUCOSE; Start 08/02/16 at 09:00 Glucagon (Glucagen) 1 mg Q15M PRN IM DECREASED GLUCOSE; Start 08/02/16 at 09:00 Glucose (Glutose) 15 gm Q15M PRN BUCCAL DECREASED GLUCOSE; Start 08/02/16 at 09: 00 Calcium Carbonate (Ca Carbonate) 1,250 mg Q12 NGT Last administered on 08:34; Admin Dose 1,250 MG; Start 08/11/16 at 09:00 IV Flush (NS 10 ml) 10 ml PRN PRN IV FLUSH LINE; Start 08/11/16 at 20:00 Hydralazine HCl (Apresoline) 10 mg Q4H PRN IV SBP >160 Last administered on 23:33; Admin Dose 10 MG; Start 08/13/16 at 03:30 Hydromorphone HCl (Dilaudid) 1 mg Q4H PRN IV PAIN Last administered on 18:47; Admin Dose 1 MG; Start 08/16/16 at 08:30 Levothyroxine Sodium (Synthroid) 175 mcg DAILY@06 PO Last administered on 06:05; Admin Dose 175 MCG; Start 08/18/16 at 06:00 Pantoprazole (Protonix Tab) 40 mg DAILY@06 PO Last administered on 09/02/16 06: 05; Admin Dose 40 MG; Start 08/18/16 at 06:00 Doxazosin Mesylate (Cardura) 4 mg HS PO Last administered on 09/01/16 20:48; Admin Dose 4 MG; Start 08/19/16 at 21:00 Lorazepam (Ativan) 0.5 mg Q8H PRN PO ANXIETY; Start 08/19/16 at 14:00 Losartan Potassium (Cozaar) 50 mg DAILY PO Last administered on 09/02/16 08:35 ; Admin Dose 50 MG; Start 08/20/16 at 09:00 Amlodipine Besylate (Norvasc) 5 mg BID PO Last administered on 09/02/16 08:35; Admin Dose 5 MG; Start 08/23/16 at 21:00 Furosemide (Lasix) 40 mg BID PO Last administered on 09/02/16 08:34; Admin Dose 40 MG; Start 08/25/16 at 09:00 Polyethylene Glycol (Miralax) 17 gm BID PO Last administered on 09/01/16 20:48 ; Admin Dose 17 GM; Start 08/26/16 at 09:00 Bisacodyl (Dulcolax) 10 mg DAILY PRN PO CONSTIPATION Last administered on 16:27; Admin Dose 10 MG; Start 08/26/16 at 08:00 Enoxaparin Sodium (Lovenox) 40 mg DAILY SC Last administered on 09/02/16 08:38 ; Admin Dose 40 MG; Start 08/31/16 at 09:00 SRINIVASA HUNT NP Sep 02, 2016 11:28
[2016-09-02 20:51] VITALS: BP 126/77; RESP 18
[2016-09-02] MEDS: DOXAZOSIN 4 MG TAB PO SCH (21:03)
[2016-09-03] MEDS: LEVOTHYROXINE 175 MCG TAB PO SCH (05:33)
[2016-09-03] MEDS: PANTOPRAZOLE (EC) 40 MG TAB PO SCH (05:33)
[2016-09-03 08:09] VITALS: BP 127/83; RESP 16
[2016-09-03] MEDS: ALBUTEROL/IPRATROPIUM (NEB) 3 ML AMP HHN SCH ×3 (08:11→20:26)
[2016-09-03] MEDS: INSULIN ASPART [NOVOLOG] 3 ML PEN SC SCH ×4 (08:14→21:00)
--- NOTE | 2016-09-03 09:30 | PN ---
Date/Time of Note Date/Time of Note DATE: 09/03/16 TIME: 09:28 Assessment/Plan VTE Prophylaxis VTE Prophylaxis Intervention: other Lines/Catheters IV Catheter Type (from [facility]): Saline Lock Urinary Cath still in place: Yes Reason Cath still needed: urinary retention Assessment/Plan Chief Complaint/Hosp Course 1. Nonoliguric acute kidney injury with unknown baseline creatinine. Etiology secondary to acute tubular necrosis. The patient is status post hemodialysis. Patient's renal function has improved. Continue current treatment plan, supportive care, renally dose medications. 2. Acute congestive heart failure exacerbation. The patient is clinically improving. Continue current diuretic regimen. Follow up with cardiology. 3. Mineral bone disorder. Continue to monitor calcium and phosphorus levels. 4. Anemia. Continue to monitor hemoglobin and hematocrit levels. 5. Acute hypoxemic respiratory failure secondary to pneumonia and congestive heart failure. The patient clinically improving. Continue medical management. Continue supplemental oxygen. 6. Sepsis, status post shock. Continue current antibiotic course. 7. Hypothyroidism. Continue Synthroid. 8. Diabetes, continue Accu-Cheks and sliding scale. 9. History of ETOH abuse. 10. Status post cardiopulmonary arrest. Problems: Subjective 24 Hr Interval Summary Free Text/Dictation Patient stable no events overnight Exam/Review of Systems Vital Signs Vitals Vital Signs Date Time Temp Pulse Resp B/P Pulse Ox O2 Delivery O2 Flow Rate FiO2 09/03/16 08:10 101 16 93 21 09/03/16 08:09 98.7 127/83 09/01/16 01:54 1.0 08/30/16 08:37 Nasal Cannula Intake and Output 09/02/16 09/02/16 09/03/16 15:00 23:00 07:00 Intake Total 1080 ml 480 ml Output Total 500 ml 700 ml Balance 580 ml -220 ml Exam HEENT: Head is normocephalic. NECK: Supple. HEART: Regular rate. LUNGS: Show diminished breath sounds at base. ABDOMEN: Soft, nontender to palpation. No rebound or guarding. EXTREMITIES: Negative for clubbing, cyanosis, no edema. DERMATOLOGIC: No rashes. MUSCULOSKELETAL: No joint effusions. NEUROLOGIC: No change in exam. Results Results 24 hrs Laboratory Tests Test 09/02/16 12:08 09/02/16 17:18 09/02/16 20:42 09/03/16 05:00 Bedside Glucose 97 98 110 Thyroid Stimulating Hormone (TSH) 17.000 H Free Thyroxine Index 2.16 Thyroxine (T4) 6.0 Triiodothyronine (T3) Uptake 36.0 Test 09/03/16 08:13 Bedside Glucose 96 Medications Medications Current Medications Ondansetron HCl (Zofran Inj) 4 mg Q6H PRN IV NAUSEA AND/OR VOMITING; Start at 03:00 Metoclopramide HCl (Reglan) 10 mg Q6H PRN IV NAUSEA AND/OR VOMITING; Start at 03:00 Acetaminophen (Tylenol Tab) 650 mg Q6H PRN PO PAIN LEVEL 1-3 OR FEVER Last administered on 08/26/16 16:27; Admin Dose 650 MG; Start 08/01/16 at 03:00 Acetaminophen (Tylenol Supp) 650 mg Q4H PRN [place] PAIN LEVEL 1-3 OR FEVER; Start 08/01/16 at 06:30 Miscellaneous Information 1 ea NOTE XX ; Start 08/02/16 at 09:00 Glucose (Glutose) 15 gm Q15M PRN PO DECREASED GLUCOSE; Start 08/02/16 at 09:00 Glucose (Glutose) 22.5 gm Q15M PRN PO DECREASED GLUCOSE; Start 08/02/16 at 09:00 Dextrose (D50w Syringe) 25 ml Q15M PRN IV DECREASED GLUCOSE Last administered on 08/16/16 06:30; Admin Dose 25 ML; Start 08/02/16 at 09:00 Dextrose (D50w Syringe) 50 ml Q15M PRN IV DECREASED GLUCOSE; Start 08/02/16 at 09:00 Glucagon (Glucagen) 1 mg Q15M PRN IM DECREASED GLUCOSE; Start 08/02/16 at 09:00 Glucose (Glutose) 15 gm Q15M PRN BUCCAL DECREASED GLUCOSE; Start 08/02/16 at 09: 00 Calcium Carbonate (Ca Carbonate) 1,250 mg Q12 NGT Last administered on 20:43; Admin Dose 1,250 MG; Start 08/11/16 at 09:00 IV Flush (NS 10 ml) 10 ml PRN PRN IV FLUSH LINE; Start 08/11/16 at 20:00 Hydralazine HCl (Apresoline) 10 mg Q4H PRN IV SBP >160 Last administered on 23:33; Admin Dose 10 MG; Start 08/13/16 at 03:30 Hydromorphone HCl (Dilaudid) 1 mg Q4H PRN IV PAIN Last administered on 18:47; Admin Dose 1 MG; Start 08/16/16 at 08:30 Levothyroxine Sodium (Synthroid) 175 mcg DAILY@06 PO Last administered on 05:33; Admin Dose 175 MCG; Start 08/18/16 at 06:00 Pantoprazole (Protonix Tab) 40 mg DAILY@06 PO Last administered on 09/03/16 05: 33; Admin Dose 40 MG; Start 08/18/16 at 06:00 Doxazosin Mesylate (Cardura) 4 mg HS PO Last administered on 09/02/16 21:03; Admin Dose 4 MG; Start 08/19/16 at 21:00 Lorazepam (Ativan) 0.5 mg Q8H PRN PO ANXIETY; Start 08/19/16 at 14:00 Losartan Potassium (Cozaar) 50 mg DAILY PO Last administered on 09/02/16 08:35 ; Admin Dose 50 MG; Start 08/20/16 at 09:00 Amlodipine Besylate (Norvasc) 5 mg BID PO Last administered on 09/02/16 21:03; Admin Dose 5 MG; Start 08/23/16 at 21:00 Furosemide (Lasix) 40 mg BID PO Last administered on 09/02/16 21:03; Admin Dose 40 MG; Start 08/25/16 at 09:00 Polyethylene Glycol (Miralax) 17 gm BID PO Last administered on 09/02/16 21:03 ; Admin Dose 17 GM; Start 08/26/16 at 09:00 Bisacodyl (Dulcolax) 10 mg DAILY PRN PO CONSTIPATION Last administered on 16:27; Admin Dose 10 MG; Start 08/26/16 at 08:00 Enoxaparin Sodium (Lovenox) 40 mg DAILY SC Last administered on 09/02/16 08:38 ; Admin Dose 40 MG; Start 08/31/16 at 09:00 BALDOMERO HARRINGTON DO Sep 03, 2016 09:30
[2016-09-03] MEDS: POLYETHYLENE GLYCOL 17 GM PACKET PO SCH ×2 (09:37→21:00)
[2016-09-03] MEDS: CA CARBONATE (250 MG/ML) 5ML CUP NGT SCH ×2 (09:38→21:06)
[2016-09-03] MEDS: LOSARTAN 50 MG TAB PO SCH (09:39)
[2016-09-03] MEDS: FUROSEMIDE 40 MG TAB PO SCH ×2 (09:39→21:06)
[2016-09-03] MEDS: AMLODIPINE 5 MG TAB PO SCH ×2 (09:39→21:06)
[2016-09-03] MEDS: ENOXAPARIN 40 MG/0.4 ML SYG SC SCH (09:43)
--- NOTE | 2016-09-03 13:39 | PN ---
Date/Time of Note Date/Time of Note DATE: 09/03/16 TIME: 13:37 Assessment/Plan VTE Prophylaxis VTE Prophylaxis Intervention: LMWH Lines/Catheters IV C[facility]ter Type (from [facility]): Saline Lock Urinary Cath still in place: Yes Reason Cath still needed: urinary retention Assessment/Plan Chief Complaint/Hosp Course A/P: 60 M with: 1. Status post PEA cardiac arrest secondary to severe metabolic acidosis. The patient is being followed by Cardiology. As per Cardiology, there is no cardiac etiology to suggest the cardiac arrest. - monitor 2. Acute on chronic diastolic heart faded. Improving with diuresis. 3. Acute kidney injury that required temporary hemodialysis. Currently, off hemodialysis. Being followed by Nephrology. 4. Essential hypertension. Continue antihypertensives. 5. Acute encephalopathy secondary to #1, improving. 6. Acute respiratory failure with ARDS and pulmonary edema, status post mechanical ventilation, currently extubated. 7. Status post sepsis, probably secondary to underlying aspiration pneumonia. 8. Hypothyroidism, severe. Continue Synthroid. 9. Debility. Status post evaluation by physical therapy. Physical therapy is [facility] acute rehabilitation unit for further rehabilitation. 10. Normocytic normochromic anemia. Continue to monitor H and H closely. 11. Diabetes mellitus. Hemoglobin A1c 5.0. Continue sliding scale insulin. 12. Occlusive thrombosis of the left cephalic vein - off anticoagulation for DVT tx - monitor, warm compresses prn 13. Fluid, electrolytes, and nutrition. Mechanical soft diet. Aspiration precautions. 14. DVT prophylaxis. Subcutaneous Lovenox. 15. Gastrointestinal prophylaxis. Proton pump inhibitors. Plan. Await placement. Continue current management. Problems: Subjective 24 Hr Interval Summary Free Text/Dictation No acute events overnight. Exam/Review of Systems Vital Signs Vitals Vital Signs Date Time Temp Pulse Resp B/P Pulse Ox O2 Delivery O2 Flow Rate FiO2 09/03/16 08:10 101 16 93 21 09/03/16 08:09 98.7 127/83 09/01/16 01:54 1.0 08/30/16 08:37 Nasal Cannula Intake and Output 09/02/16 09/02/16 09/03/16 14:59 22:59 06:59 Intake Total 1080 ml 480 ml Output Total 500 ml 700 ml Balance 580 ml -220 ml Exam GENERAL: This is an obese male lying in bed in no apparent distress. HEENT: Head normocephalic and atraumatic. Eyes: Anicteric sclerae. Conjunctivae clear. ENT: Nasal septum is midline. Oral mucosa is dry. NECK: Supple. No JVD noticed. RESPIRATORY: less bilaterally diminished breath sounds. No adventitious breath sounds. No use of accessory muscles of respiration. CARDIAC: Regular rate and rhythm. S1 and S2 heard. ABDOMEN: Soft, nontender and nondistended. Bowel sounds positive in all 4 quadrants. EXTREMITIES: No cyanosis, no clubbing. Bilateral lower extremity 1 to 2+ pitting edema. Peripheral pulses are diminished. NEUROLOGIC: The patient is awake, alert, and oriented. Results Results 24 hrs Laboratory Tests Test 09/02/16 17:18 09/02/16 20:42 09/03/16 05:00 09/03/16 08:13 Bedside Glucose 98 110 96 Thyroid Stimulating Hormone (TSH) 17.000 H Free Thyroxine Index 2.16 Thyroxine (T4) 6.0 Triiodothyronine (T3) Uptake 36.0 Test 09/03/16 12:09 Bedside Glucose 95 Medications Medications Current Medications Ondansetron HCl (Zofran Inj) 4 mg Q6H PRN IV NAUSEA AND/OR VOMITING; Start at 03:00 Metoclopramide HCl (Reglan) 10 mg Q6H PRN IV NAUSEA AND/OR VOMITING; Start at 03:00 Acetaminophen (Tylenol Tab) 650 mg Q6H PRN PO PAIN LEVEL 1-3 OR FEVER Last administered on 08/26/16 16:27; Admin Dose 650 MG; Start 08/01/16 at 03:00 Acetaminophen (Tylenol Supp) 650 mg Q4H PRN [place] PAIN LEVEL 1-3 OR FEVER; Start 08/01/16 at 06:30 Miscellaneous Information 1 ea NOTE XX ; Start 08/02/16 at 09:00 Glucose (Glutose) 15 gm Q15M PRN PO DECREASED GLUCOSE; Start 08/02/16 at 09:00 Glucose (Glutose) 22.5 gm Q15M PRN PO DECREASED GLUCOSE; Start 08/02/16 at 09:00 Dextrose (D50w Syringe) 25 ml Q15M PRN IV DECREASED GLUCOSE Last administered on 08/16/16 06:30; Admin Dose 25 ML; Start 08/02/16 at 09:00 Dextrose (D50w Syringe) 50 ml Q15M PRN IV DECREASED GLUCOSE; Start 08/02/16 at 09:00 Glucagon (Glucagen) 1 mg Q15M PRN IM DECREASED GLUCOSE; Start 08/02/16 at 09:00 Glucose (Glutose) 15 gm Q15M PRN BUCCAL DECREASED GLUCOSE; Start 08/02/16 at 09: 00 Calcium Carbonate (Ca Carbonate) 1,250 mg Q12 NGT Last administered on 09:38; Admin Dose 1,250 MG; Start 08/11/16 at 09:00 IV Flush (NS 10 ml) 10 ml PRN PRN IV FLUSH LINE; Start 08/11/16 at 20:00 Hydralazine HCl (Apresoline) 10 mg Q4H PRN IV SBP >160 Last administered on 23:33; Admin Dose 10 MG; Start 08/13/16 at 03:30 Hydromorphone HCl (Dilaudid) 1 mg Q4H PRN IV PAIN Last administered on 18:47; Admin Dose 1 MG; Start 08/16/16 at 08:30 Levothyroxine Sodium (Synthroid) 175 mcg DAILY@06 PO Last administered on 05:33; Admin Dose 175 MCG; Start 08/18/16 at 06:00 Pantoprazole (Protonix Tab) 40 mg DAILY@06 PO Last administered on 09/03/16 05: 33; Admin Dose 40 MG; Start 08/18/16 at 06:00 Doxazosin Mesylate (Cardura) 4 mg HS PO Last administered on 09/02/16 21:03; Admin Dose 4 MG; Start 08/19/16 at 21:00 Lorazepam (Ativan) 0.5 mg Q8H PRN PO ANXIETY; Start 08/19/16 at 14:00 Losartan Potassium (Cozaar) 50 mg DAILY PO Last administered on 09/03/16 09:39 ; Admin Dose 50 MG; Start 08/20/16 at 09:00 Amlodipine Besylate (Norvasc) 5 mg BID PO Last administered on 09/03/16 09:39; Admin Dose 5 MG; Start 08/23/16 at 21:00 Furosemide (Lasix) 40 mg BID PO Last administered on 09/03/16 09:39; Admin Dose 40 MG; Start 08/25/16 at 09:00 Polyethylene Glycol (Miralax) 17 gm BID PO Last administered on 09/03/16 09:37 ; Admin Dose 17 GM; Start 08/26/16 at 09:00 Bisacodyl (Dulcolax) 10 mg DAILY PRN PO CONSTIPATION Last administered on 16:27; Admin Dose 10 MG; Start 08/26/16 at 08:00 Enoxaparin Sodium (Lovenox) 40 mg DAILY SC Last administered on 09/03/16 09:43 ; Admin Dose 40 MG; Start 08/31/16 at 09:00 CAM COLON Sep 03, 2016 13:38
[2016-09-03 19:58] VITALS: BP 165/83; RESP 16
[2016-09-03] MEDS: DOXAZOSIN 4 MG TAB PO SCH (21:06)
[2016-09-04] MEDS: PANTOPRAZOLE (EC) 40 MG TAB PO SCH (06:14)
[2016-09-04] MEDS: LEVOTHYROXINE 175 MCG TAB PO SCH (06:14)
[2016-09-04 06:41] LABS: CALCIUM 10.7 mg/dl (8.4-10.2); CREATININE 1.13 mg/dl (0.61-1.24); MAGNESIUM 1.7 mg/dl (1.7-2.5); PHOSPHORUS 4.8 mg/dl (2.5-4.9); POTASSIUM 3.9 mmol/L (3.5-5.1)
[2016-09-04] MEDS: INSULIN ASPART [NOVOLOG] 3 ML PEN SC SCH ×4 (08:04→20:43)
[2016-09-04 08:05] VITALS: BP 119/79; RESP 16
--- NOTE | 2016-09-04 09:11 | PN ---
Date/Time of Note Date/Time of Note DATE: 09/04/16 TIME: 09:10 Assessment/Plan VTE Prophylaxis VTE Prophylaxis Intervention: other Lines/Catheters IV Catheter Type (from [facility]): Saline Lock Urinary Cath still in place: Yes Reason Cath still needed: other (indicate) Assessment/Plan Chief Complaint/Hosp Course 1. Nonoliguric acute kidney injury with unknown baseline creatinine. Etiology secondary to acute tubular necrosis. The patient is status post hemodialysis. Patient's renal function has improved. Continue current treatment plan, supportive care, renally dose medications. 2. Acute congestive heart failure exacerbation. The patient is clinically improving. Continue current diuretic regimen. Follow up with cardiology. 3. Mineral bone disorder. Continue to monitor calcium and phosphorus levels. 4. Anemia. Continue to monitor hemoglobin and hematocrit levels. 5. Acute hypoxemic respiratory failure secondary to pneumonia and congestive heart failure. The patient clinically improving. Continue medical management. Continue supplemental oxygen. 6. Sepsis, status post shock. Continue current antibiotic course. 7. Hypothyroidism. Continue Synthroid. 8. Diabetes, continue Accu-Cheks and sliding scale. 9. History of ETOH abuse. 10. Status post cardiopulmonary arrest. Problems: Subjective 24 Hr Interval Summary Free Text/Dictation Patient stable no event Exam/Review of Systems Vital Signs Vitals Vital Signs Date Time Temp Pulse Resp B/P Pulse Ox O2 Delivery O2 Flow Rate FiO2 09/04/16 08:05 98.8 110 16 119/79 95 09/03/16 20:27 21 09/01/16 01:54 1.0 Intake and Output 09/03/16 09/03/16 09/04/16 15:00 23:00 07:00 Intake Total 1420 ml 480 ml Output Total 700 ml 1200 ml Balance 720 ml -720 ml Exam HEENT: Head is normocephalic. NECK: Supple. HEART: Regular rate. LUNGS: Show diminished breath sounds at base. ABDOMEN: Soft, nontender to palpation without rebound or guarding. EXTREMITIES: Negative for clubbing, cyanosis. Positive edema, improving. DERMATOLOGIC: No rashes. MUSCULOSKELETAL: No joint effusions. NEUROLOGIC: No change in exam. Results Result Diagram: 09/04/16 0535 Results 24 hrs Laboratory Tests Test 09/03/16 12:09 09/03/16 17:39 09/03/16 21:05 09/04/16 05:35 Bedside Glucose 95 92 107 Sodium Level 140 Potassium Level 3.9 Chloride Level 100 Carbon Dioxide Level 27 Anion Gap 17 H Blood Urea Nitrogen 23 H Creatinine 1.13 Glucose Level 86 Calcium Level 10.7 H Phosphorus Level 4.8 Magnesium Level 1.7 Test 09/04/16 07:47 Bedside Glucose 83 Medications Medications Current Medications Ondansetron HCl (Zofran Inj) 4 mg Q6H PRN IV NAUSEA AND/OR VOMITING; Start at 03:00 Metoclopramide HCl (Reglan) 10 mg Q6H PRN IV NAUSEA AND/OR VOMITING; Start at 03:00 Acetaminophen (Tylenol Tab) 650 mg Q6H PRN PO PAIN LEVEL 1-3 OR FEVER Last administered on 08/26/16 16:27; Admin Dose 650 MG; Start 08/01/16 at 03:00 Acetaminophen (Tylenol Supp) 650 mg Q4H PRN [place] PAIN LEVEL 1-3 OR FEVER; Start 08/01/16 at 06:30 Miscellaneous Information 1 ea NOTE XX ; Start 08/02/16 at 09:00 Glucose (Glutose) 15 gm Q15M PRN PO DECREASED GLUCOSE; Start 08/02/16 at 09:00 Glucose (Glutose) 22.5 gm Q15M PRN PO DECREASED GLUCOSE; Start 08/02/16 at 09:00 Dextrose (D50w Syringe) 25 ml Q15M PRN IV DECREASED GLUCOSE Last administered on 08/16/16 06:30; Admin Dose 25 ML; Start 08/02/16 at 09:00 Dextrose (D50w Syringe) 50 ml Q15M PRN IV DECREASED GLUCOSE; Start 08/02/16 at 09:00 Glucagon (Glucagen) 1 mg Q15M PRN IM DECREASED GLUCOSE; Start 08/02/16 at 09:00 Glucose (Glutose) 15 gm Q15M PRN BUCCAL DECREASED GLUCOSE; Start 08/02/16 at 09: 00 Calcium Carbonate (Ca Carbonate) 1,250 mg Q12 NGT Last administered on 21:06; Admin Dose 1,250 MG; Start 08/11/16 at 09:00 IV Flush (NS 10 ml) 10 ml PRN PRN IV FLUSH LINE; Start 08/11/16 at 20:00 Hydralazine HCl (Apresoline) 10 mg Q4H PRN IV SBP >160 Last administered on 23:33; Admin Dose 10 MG; Start 08/13/16 at 03:30 Hydromorphone HCl (Dilaudid) 1 mg Q4H PRN IV PAIN Last administered on 18:47; Admin Dose 1 MG; Start 08/16/16 at 08:30 Levothyroxine Sodium (Synthroid) 175 mcg DAILY@06 PO Last administered on 06:14; Admin Dose 175 MCG; Start 08/18/16 at 06:00 Pantoprazole (Protonix Tab) 40 mg DAILY@06 PO Last administered on 09/04/16 06: 14; Admin Dose 40 MG; Start 08/18/16 at 06:00 Doxazosin Mesylate (Cardura) 4 mg HS PO Last administered on 09/03/16 21:06; Admin Dose 4 MG; Start 08/19/16 at 21:00 Lorazepam (Ativan) 0.5 mg Q8H PRN PO ANXIETY; Start 08/19/16 at 14:00 Losartan Potassium (Cozaar) 50 mg DAILY PO Last administered on 09/03/16 09:39 ; Admin Dose 50 MG; Start 08/20/16 at 09:00 Amlodipine Besylate (Norvasc) 5 mg BID PO Last administered on 09/03/16 21:06; Admin Dose 5 MG; Start 08/23/16 at 21:00 Furosemide (Lasix) 40 mg BID PO Last administered on 09/03/16 21:06; Admin Dose 40 MG; Start 08/25/16 at 09:00 Polyethylene Glycol (Miralax) 17 gm BID PO Last administered on 09/03/16 09:37 ; Admin Dose 17 GM; Start 08/26/16 at 09:00 Bisacodyl (Dulcolax) 10 mg DAILY PRN PO CONSTIPATION Last administered on 16:27; Admin Dose 10 MG; Start 08/26/16 at 08:00 Enoxaparin Sodium (Lovenox) 40 mg DAILY SC Last administered on 09/03/16 09:43 ; Admin Dose 40 MG; Start 08/31/16 at 09:00 BALDOMERO HARRINGTON DO Sep 04, 2016 09:10
[2016-09-04] MEDS: ALBUTEROL/IPRATROPIUM (NEB) 3 ML AMP HHN SCH ×3 (09:22→21:20)
[2016-09-04] MEDS: ENOXAPARIN 40 MG/0.4 ML SYG SC SCH (10:12)
[2016-09-04] MEDS: CA CARBONATE (250 MG/ML) 5ML CUP NGT SCH ×2 (10:12→20:40)
[2016-09-04] MEDS: AMLODIPINE 5 MG TAB PO SCH ×2 (10:13→20:39)
[2016-09-04] MEDS: FUROSEMIDE 40 MG TAB PO SCH ×2 (10:13→20:39)
[2016-09-04] MEDS: POLYETHYLENE GLYCOL 17 GM PACKET PO SCH ×2 (10:14→20:36)
[2016-09-04] MEDS: LOSARTAN 50 MG TAB PO SCH (10:14)
--- NOTE | 2016-09-04 11:34 | PN ---
Date/Time of Note Date/Time of Note DATE: 09/04/16 TIME: 11:32 Assessment/Plan VTE Prophylaxis VTE Prophylaxis Intervention: LMWH Lines/Catheters IV C[facility]ter Type (from [facility]): Saline Lock Urinary Cath still in place: Yes Reason Cath still needed: urinary retention Assessment/Plan Chief Complaint/Hosp Course A/P: 60 M with: 1. Status post PEA cardiac arrest secondary to severe metabolic acidosis. The patient is being followed by Cardiology. As per Cardiology, there is no cardiac etiology to suggest the cardiac arrest. - monitor 2. Acute on chronic diastolic heart faded. Improving with diuresis. 3. Acute kidney injury that required temporary hemodialysis. Currently, off hemodialysis. Being followed by Nephrology. 4. Essential hypertension. Continue antihypertensives. 5. Acute encephalopathy secondary to #1, improving. 6. Acute respiratory failure with ARDS and pulmonary edema, status post mechanical ventilation, currently extubated. 7. Status post sepsis, probably secondary to underlying aspiration pneumonia. 8. Hypothyroidism, severe. Continue Synthroid. 9. Debility. Status post evaluation by physical therapy. Physical therapy is recommending snf facility versus acute rehabilitation unit for further rehabilitation. 10. Normocytic normochromic anemia. Continue to monitor H and H closely. 11. Diabetes mellitus. Hemoglobin A1c 5.0. Continue sliding scale insulin. 12. Occlusive thrombosis of the left cephalic vein - off anticoagulation for DVT tx - monitor, warm compresses prn 13. Fluid, electrolytes, and nutrition. Mechanical soft diet. Aspiration precautions. 14. DVT prophylaxis. Subcutaneous Lovenox. 15. Gastrointestinal prophylaxis. Proton pump inhibitors. Plan. Await placement. Continue current management. Problems: Subjective 24 Hr Interval Summary Free Text/Dictation Pt had no acute events overnight. Exam/Review of Systems Vital Signs Vitals Vital Signs Date Time Temp Pulse Resp B/P Pulse Ox O2 Delivery O2 Flow Rate FiO2 09/04/16 09:23 96 18 95 21 09/04/16 08:05 98.8 119/79 09/01/16 01:54 1.0 Intake and Output 09/03/16 09/03/16 09/04/16 15:00 23:00 07:00 Intake Total 1420 ml 480 ml Output Total 700 ml 1200 ml Balance 720 ml -720 ml Exam GENERAL: This is an obese male lying in bed in no apparent distress. HEENT: Head normocephalic and atraumatic. Eyes: Anicteric sclerae. Conjunctivae clear. ENT: Nasal septum is midline. Oral mucosa is dry. NECK: Supple. No JVD noticed. RESPIRATORY: less bilaterally diminished breath sounds. No adventitious breath sounds. No use of accessory muscles of respiration. CARDIAC: Regular rate and rhythm. S1 and S2 heard. ABDOMEN: Soft, nontender and nondistended. Bowel sounds positive in all 4 quadrants. EXTREMITIES: No cyanosis, no clubbing. Bilateral lower extremity 1 to 2+ pitting edema. Peripheral pulses are diminished. NEUROLOGIC: The patient is awake, alert, and oriented. Results Result Diagram: 09/04/16 0535 Results 24 hrs Laboratory Tests Test 09/03/16 12:09 09/03/16 17:39 09/03/16 21:05 09/04/16 05:35 Bedside Glucose 95 92 107 Sodium Level 140 Potassium Level 3.9 Chloride Level 100 Carbon Dioxide Level 27 Anion Gap 17 H Blood Urea Nitrogen 23 H Creatinine 1.13 Glucose Level 86 Calcium Level 10.7 H Phosphorus Level 4.8 Magnesium Level 1.7 Test 09/04/16 07:47 Bedside Glucose 83 Medications Medications Current Medications Ondansetron HCl (Zofran Inj) 4 mg Q6H PRN IV NAUSEA AND/OR VOMITING; Start at 03:00 Metoclopramide HCl (Reglan) 10 mg Q6H PRN IV NAUSEA AND/OR VOMITING; Start at 03:00 Acetaminophen (Tylenol Tab) 650 mg Q6H PRN PO PAIN LEVEL 1-3 OR FEVER Last administered on 08/26/16 16:27; Admin Dose 650 MG; Start 08/01/16 at 03:00 Acetaminophen (Tylenol Supp) 650 mg Q4H PRN [place] PAIN LEVEL 1-3 OR FEVER; Start 08/01/16 at 06:30 Miscellaneous Information 1 ea NOTE XX ; Start 08/02/16 at 09:00 Glucose (Glutose) 15 gm Q15M PRN PO DECREASED GLUCOSE; Start 08/02/16 at 09:00 Glucose (Glutose) 22.5 gm Q15M PRN PO DECREASED GLUCOSE; Start 08/02/16 at 09:00 Dextrose (D50w Syringe) 25 ml Q15M PRN IV DECREASED GLUCOSE Last administered on 08/16/16 06:30; Admin Dose 25 ML; Start 08/02/16 at 09:00 Dextrose (D50w Syringe) 50 ml Q15M PRN IV DECREASED GLUCOSE; Start 08/02/16 at 09:00 Glucagon (Glucagen) 1 mg Q15M PRN IM DECREASED GLUCOSE; Start 08/02/16 at 09:00 Glucose (Glutose) 15 gm Q15M PRN BUCCAL DECREASED GLUCOSE; Start 08/02/16 at 09: 00 Calcium Carbonate (Ca Carbonate) 1,250 mg Q12 NGT Last administered on 10:12; Admin Dose 1,250 MG; Start 08/11/16 at 09:00 IV Flush (NS 10 ml) 10 ml PRN PRN IV FLUSH LINE; Start 08/11/16 at 20:00 Hydralazine HCl (Apresoline) 10 mg Q4H PRN IV SBP >160 Last administered on 23:33; Admin Dose 10 MG; Start 08/13/16 at 03:30 Hydromorphone HCl (Dilaudid) 1 mg Q4H PRN IV PAIN Last administered on 18:47; Admin Dose 1 MG; Start 08/16/16 at 08:30 Levothyroxine Sodium (Synthroid) 175 mcg DAILY@06 PO Last administered on 06:14; Admin Dose 175 MCG; Start 08/18/16 at 06:00 Pantoprazole (Protonix Tab) 40 mg DAILY@06 PO Last administered on 09/04/16 06: 14; Admin Dose 40 MG; Start 08/18/16 at 06:00 Doxazosin Mesylate (Cardura) 4 mg HS PO Last administered on 09/03/16 21:06; Admin Dose 4 MG; Start 08/19/16 at 21:00 Lorazepam (Ativan) 0.5 mg Q8H PRN PO ANXIETY; Start 08/19/16 at 14:00 Losartan Potassium (Cozaar) 50 mg DAILY PO Last administered on 09/04/16 10:14 ; Admin Dose 50 MG; Start 08/20/16 at 09:00 Amlodipine Besylate (Norvasc) 5 mg BID PO Last administered on 09/04/16 10:13; Admin Dose 5 MG; Start 08/23/16 at 21:00 Furosemide (Lasix) 40 mg BID PO Last administered on 09/04/16 10:13; Admin Dose 40 MG; Start 08/25/16 at 09:00 Polyethylene Glycol (Miralax) 17 gm BID PO Last administered on 09/04/16 10:14 ; Admin Dose 17 GM; Start 08/26/16 at 09:00 Bisacodyl (Dulcolax) 10 mg DAILY PRN PO CONSTIPATION Last administered on 16:27; Admin Dose 10 MG; Start 08/26/16 at 08:00 Enoxaparin Sodium (Lovenox) 40 mg DAILY SC Last administered on 09/04/16 10:12 ; Admin Dose 40 MG; Start 08/31/16 at 09:00 CAM COLON Sep 04, 2016 11:33
[2016-09-04 19:20] VITALS: BP 131/79; RESP 18
[2016-09-04 20:35] VITALS: BP 139/89; PULSE 89
[2016-09-04] MEDS: DOXAZOSIN 4 MG TAB PO SCH (20:38)
[2016-09-05] MEDS: LEVOTHYROXINE 175 MCG TAB PO SCH (06:11)
[2016-09-05] MEDS: PANTOPRAZOLE (EC) 40 MG TAB PO SCH (06:11)
[2016-09-05 07:36] VITALS: BP 132/75; RESP 20
[2016-09-05] MEDS: INSULIN ASPART [NOVOLOG] 3 ML PEN SC SCH ×4 (07:53→21:00)
[2016-09-05] MEDS: ALBUTEROL/IPRATROPIUM (NEB) 3 ML AMP HHN SCH ×3 (07:57→19:29)
[2016-09-05] MEDS: CA CARBONATE (250 MG/ML) 5ML CUP NGT SCH ×2 (08:38→21:26)
[2016-09-05] MEDS: LOSARTAN 50 MG TAB PO SCH (08:39)
[2016-09-05] MEDS: AMLODIPINE 5 MG TAB PO SCH ×2 (08:39→21:27)
[2016-09-05] MEDS: FUROSEMIDE 40 MG TAB PO SCH ×2 (08:40→21:29)
[2016-09-05] MEDS: ENOXAPARIN 40 MG/0.4 ML SYG SC SCH (08:44)
[2016-09-05] MEDS: POLYETHYLENE GLYCOL 17 GM PACKET PO SCH ×2 (08:45→21:00)
--- NOTE | 2016-09-05 09:23 | PN ---
Date/Time of Note Date/Time of Note DATE: 09/05/16 TIME: 09:22 Assessment/Plan VTE Prophylaxis VTE Prophylaxis Intervention: other Lines/Catheters IV Catheter Type (from [facility]): Saline Lock Urinary Cath still in place: Yes Reason Cath still needed: other (indicate) Assessment/Plan Chief Complaint/Hosp Course 1. Nonoliguric acute kidney injury with unknown baseline creatinine. Etiology secondary to acute tubular necrosis. The patient is status post hemodialysis. Patient's renal function has improved. Continue current treatment plan, supportive care, renally dose medications. 2. Acute congestive heart failure exacerbation. The patient is clinically improving. Continue current diuretic regimen. Follow up with cardiology. 3. Mineral bone disorder. Continue to monitor calcium and phosphorus levels. 4. Anemia. Continue to monitor hemoglobin and hematocrit levels. 5. Acute hypoxemic respiratory failure secondary to pneumonia and congestive heart failure. The patient clinically improving. Continue medical management. Continue supplemental oxygen. 6. Sepsis, status post shock. Continue current antibiotic course. 7. Hypothyroidism. Continue Synthroid. 8. Diabetes, continue Accu-Cheks and sliding scale. 9. History of ETOH abuse. 10. Status post cardiopulmonary arrest. Problems: Subjective 24 Hr Interval Summary Free Text/Dictation Patient seen and examined no events overnight Exam/Review of Systems Vital Signs Vitals Vital Signs Date Time Temp Pulse Resp B/P Pulse Ox O2 Delivery O2 Flow Rate FiO2 09/05/16 07:57 99 18 97 21 09/05/16 07:36 98.7 132/75 Intake and Output 09/04/16 09/04/16 09/05/16 15:00 23:00 07:00 Intake Total 1240 ml 480 ml Output Total 1200 ml 1000 ml Balance 40 ml -520 ml Exam HEENT: Head is normocephalic. NECK: Supple. HEART: Regular rate. LUNGS: Show diminished breath sounds at base. ABDOMEN: Soft, nontender to palpation without rebound or guarding. EXTREMITIES: Negative for clubbing, cyanosis, edema. DERMATOLOGIC: No rashes. MUSCULOSKELETAL: The patient has no joint effusions. NEUROLOGIC: No change in exam. Results Result Diagram: 09/04/16 0535 Results 24 hrs Laboratory Tests Test 09/04/16 12:08 09/04/16 17:06 09/04/16 20:42 09/05/16 07:52 Bedside Glucose 89 89 101 84 Medications Medications Current Medications Ondansetron HCl (Zofran Inj) 4 mg Q6H PRN IV NAUSEA AND/OR VOMITING; Start at 03:00 Metoclopramide HCl (Reglan) 10 mg Q6H PRN IV NAUSEA AND/OR VOMITING; Start at 03:00 Acetaminophen (Tylenol Tab) 650 mg Q6H PRN PO PAIN LEVEL 1-3 OR FEVER Last administered on 08/26/16 16:27; Admin Dose 650 MG; Start 08/01/16 at 03:00 Acetaminophen (Tylenol Supp) 650 mg Q4H PRN [place] PAIN LEVEL 1-3 OR FEVER; Start 08/01/16 at 06:30 Miscellaneous Information 1 ea NOTE XX ; Start 08/02/16 at 09:00 Glucose (Glutose) 15 gm Q15M PRN PO DECREASED GLUCOSE; Start 08/02/16 at 09:00 Glucose (Glutose) 22.5 gm Q15M PRN PO DECREASED GLUCOSE; Start 08/02/16 at 09:00 Dextrose (D50w Syringe) 25 ml Q15M PRN IV DECREASED GLUCOSE Last administered on 08/16/16 06:30; Admin Dose 25 ML; Start 08/02/16 at 09:00 Dextrose (D50w Syringe) 50 ml Q15M PRN IV DECREASED GLUCOSE; Start 08/02/16 at 09:00 Glucagon (Glucagen) 1 mg Q15M PRN IM DECREASED GLUCOSE; Start 08/02/16 at 09:00 Glucose (Glutose) 15 gm Q15M PRN BUCCAL DECREASED GLUCOSE; Start 08/02/16 at 09: 00 Calcium Carbonate (Ca Carbonate) 1,250 mg Q12 NGT Last administered on 08:38; Admin Dose 1,250 MG; Start 08/11/16 at 09:00 IV Flush (NS 10 ml) 10 ml PRN PRN IV FLUSH LINE; Start 08/11/16 at 20:00 Hydralazine HCl (Apresoline) 10 mg Q4H PRN IV SBP >160 Last administered on 23:33; Admin Dose 10 MG; Start 08/13/16 at 03:30 Hydromorphone HCl (Dilaudid) 1 mg Q4H PRN IV PAIN Last administered on 18:47; Admin Dose 1 MG; Start 08/16/16 at 08:30 Levothyroxine Sodium (Synthroid) 175 mcg DAILY@06 PO Last administered on 06:11; Admin Dose 175 MCG; Start 08/18/16 at 06:00 Pantoprazole (Protonix Tab) 40 mg DAILY@06 PO Last administered on 09/05/16 06: 11; Admin Dose 40 MG; Start 08/18/16 at 06:00 Doxazosin Mesylate (Cardura) 4 mg HS PO Last administered on 09/04/16 20:38; Admin Dose 4 MG; Start 08/19/16 at 21:00 Lorazepam (Ativan) 0.5 mg Q8H PRN PO ANXIETY; Start 08/19/16 at 14:00 Losartan Potassium (Cozaar) 50 mg DAILY PO Last administered on 09/05/16 08:39 ; Admin Dose 50 MG; Start 08/20/16 at 09:00 Amlodipine Besylate (Norvasc) 5 mg BID PO Last administered on 09/05/16 08:39; Admin Dose 5 MG; Start 08/23/16 at 21:00 Furosemide (Lasix) 40 mg BID PO Last administered on 09/05/16 08:40; Admin Dose 40 MG; Start 08/25/16 at 09:00 Polyethylene Glycol (Miralax) 17 gm BID PO Last administered on 09/04/16 20:36 ; Admin Dose 17 GM; Start 08/26/16 at 09:00 Bisacodyl (Dulcolax) 10 mg DAILY PRN PO CONSTIPATION Last administered on 16:27; Admin Dose 10 MG; Start 08/26/16 at 08:00 Enoxaparin Sodium (Lovenox) 40 mg DAILY SC Last administered on 09/05/16 08:44 ; Admin Dose 40 MG; Start 08/31/16 at 09:00 BALDOMERO HARRINGTON DO Sep 05, 2016 09:23
--- NOTE | 2016-09-05 11:06 | PN ---
Date/Time of Note Date/Time of Note DATE: 09/05/16 TIME: 11:04 Assessment/Plan VTE Prophylaxis VTE Prophylaxis Intervention: LMWH Lines/Catheters IV Catheter Type (from [facility]): Saline Lock Urinary Cath still in place: Yes Reason Cath still needed: urinary retention Assessment/Plan Chief Complaint/Hosp Course A/P: 60 M with: 1. Status post PEA cardiac arrest secondary to severe metabolic acidosis. The patient is being followed by Cardiology. As per Cardiology, there is no cardiac etiology to suggest the cardiac arrest. - monitor 2. Acute on chronic diastolic heart faded. Improving with diuresis. 3. Acute kidney injury that required temporary hemodialysis. Currently, off hemodialysis. Being followed by Nephrology. 4. Essential hypertension. Continue antihypertensives. 5. Acute encephalopathy secondary to #1, improving. 6. Acute respiratory failure with ARDS and pulmonary edema, status post mechanical ventilation, currently extubated. 7. Status post sepsis, probably secondary to underlying aspiration pneumonia. 8. Hypothyroidism, severe. Continue Synthroid. 9. Debility. Status post evaluation by physical therapy. Physical therapy is recommending nursing home facility versus acute rehabilitation unit for further rehabilitation. 10. Normocytic normochromic anemia. Continue to monitor H and H closely. 11. Diabetes mellitus. Hemoglobin A1c 5.0. Continue sliding scale insulin. 12. Occlusive thrombosis of the left cephalic vein - off anticoagulation for DVT tx - monitor, warm compresses prn 13. Fluid, electrolytes, and nutrition. Mechanical soft diet. Aspiration precautions. 14. DVT prophylaxis. Subcutaneous Lovenox. 15. Gastrointestinal prophylaxis. Proton pump inhibitors. Plan. Await placement - f/u with CM. Continue current management. Problems: Subjective 24 Hr Interval Summary Free Text/Dictation Pt has no acute events overnight. Exam/Review of Systems Vital Signs Vitals Vital Signs Date Time Temp Pulse Resp B/P Pulse Ox O2 Delivery O2 Flow Rate FiO2 09/05/16 07:57 99 18 97 21 09/05/16 07:36 98.7 132/75 Intake and Output 09/04/16 09/04/16 09/05/16 15:00 23:00 07:00 Intake Total 1240 ml 480 ml Output Total 1200 ml 1000 ml Balance 40 ml -520 ml Exam GENERAL: This is an obese male lying in bed in no apparent distress, more alert today HEENT: Head normocephalic and atraumatic. Eyes: Anicteric sclerae. Conjunctivae clear. ENT: Nasal septum is midline. Oral mucosa is dry. NECK: Supple. No JVD noticed. RESPIRATORY: less bilaterally diminished breath sounds. No adventitious breath sounds. No use of accessory muscles of respiration. CARDIAC: Regular rate and rhythm. S1 and S2 heard. ABDOMEN: Soft, nontender and nondistended. Bowel sounds positive in all 4 quadrants. EXTREMITIES: No cyanosis, no clubbing. Bilateral lower extremity 1 to 2+ pitting edema. NEUROLOGIC: The patient is awake, alert, and oriented. Results Result Diagram: 09/04/16 0535 Results 24 hrs Laboratory Tests Test 09/04/16 12:08 09/04/16 17:06 09/04/16 20:42 09/05/16 07:52 Bedside Glucose 89 89 101 84 Medications Medications Current Medications Ondansetron HCl (Zofran Inj) 4 mg Q6H PRN IV NAUSEA AND/OR VOMITING; Start at 03:00 Metoclopramide HCl (Reglan) 10 mg Q6H PRN IV NAUSEA AND/OR VOMITING; Start at 03:00 Acetaminophen (Tylenol Tab) 650 mg Q6H PRN PO PAIN LEVEL 1-3 OR FEVER Last administered on 08/26/16 16:27; Admin Dose 650 MG; Start 08/01/16 at 03:00 Acetaminophen (Tylenol Supp) 650 mg Q4H PRN [place] PAIN LEVEL 1-3 OR FEVER; Start 08/01/16 at 06:30 Miscellaneous Information 1 ea NOTE XX ; Start 08/02/16 at 09:00 Glucose (Glutose) 15 gm Q15M PRN PO DECREASED GLUCOSE; Start 08/02/16 at 09:00 Glucose (Glutose) 22.5 gm Q15M PRN PO DECREASED GLUCOSE; Start 08/02/16 at 09:00 Dextrose (D50w Syringe) 25 ml Q15M PRN IV DECREASED GLUCOSE Last administered on 08/16/16 06:30; Admin Dose 25 ML; Start 08/02/16 at 09:00 Dextrose (D50w Syringe) 50 ml Q15M PRN IV DECREASED GLUCOSE; Start 08/02/16 at 09:00 Glucagon (Glucagen) 1 mg Q15M PRN IM DECREASED GLUCOSE; Start 08/02/16 at 09:00 Glucose (Glutose) 15 gm Q15M PRN BUCCAL DECREASED GLUCOSE; Start 08/02/16 at 09: 00 Calcium Carbonate (Ca Carbonate) 1,250 mg Q12 NGT Last administered on 08:38; Admin Dose 1,250 MG; Start 08/11/16 at 09:00 IV Flush (NS 10 ml) 10 ml PRN PRN IV FLUSH LINE; Start 08/11/16 at 20:00 Hydralazine HCl (Apresoline) 10 mg Q4H PRN IV SBP >160 Last administered on 23:33; Admin Dose 10 MG; Start 08/13/16 at 03:30 Hydromorphone HCl (Dilaudid) 1 mg Q4H PRN IV PAIN Last administered on 18:47; Admin Dose 1 MG; Start 08/16/16 at 08:30 Levothyroxine Sodium (Synthroid) 175 mcg DAILY@06 PO Last administered on 06:11; Admin Dose 175 MCG; Start 08/18/16 at 06:00 Pantoprazole (Protonix Tab) 40 mg DAILY@06 PO Last administered on 09/05/16 06: 11; Admin Dose 40 MG; Start 08/18/16 at 06:00 Doxazosin Mesylate (Cardura) 4 mg HS PO Last administered on 09/04/16 20:38; Admin Dose 4 MG; Start 08/19/16 at 21:00 Lorazepam (Ativan) 0.5 mg Q8H PRN PO ANXIETY; Start 08/19/16 at 14:00 Losartan Potassium (Cozaar) 50 mg DAILY PO Last administered on 09/05/16 08:39 ; Admin Dose 50 MG; Start 08/20/16 at 09:00 Amlodipine Besylate (Norvasc) 5 mg BID PO Last administered on 09/05/16 08:39; Admin Dose 5 MG; Start 08/23/16 at 21:00 Furosemide (Lasix) 40 mg BID PO Last administered on 09/05/16 08:40; Admin Dose 40 MG; Start 08/25/16 at 09:00 Polyethylene Glycol (Miralax) 17 gm BID PO Last administered on 09/04/16 20:36 ; Admin Dose 17 GM; Start 08/26/16 at 09:00 Bisacodyl (Dulcolax) 10 mg DAILY PRN PO CONSTIPATION Last administered on 16:27; Admin Dose 10 MG; Start 08/26/16 at 08:00 Enoxaparin Sodium (Lovenox) 40 mg DAILY SC Last administered on 09/05/16 08:44 ; Admin Dose 40 MG; Start 08/31/16 at 09:00 CAM COLON Sep 05, 2016 11:05
[2016-09-05 19:28] VITALS: BP 120/79; RESP 20
[2016-09-05] MEDS: DOXAZOSIN 4 MG TAB PO SCH (21:27)
[2016-09-06] MEDS: PANTOPRAZOLE (EC) 40 MG TAB PO SCH (05:54)
[2016-09-06] MEDS: LEVOTHYROXINE 175 MCG TAB PO SCH (05:54)
[2016-09-06 07:49] VITALS: BP 122/77; RESP 20
[2016-09-06] MEDS: INSULIN ASPART [NOVOLOG] 3 ML PEN SC SCH ×4 (07:57→21:00)
[2016-09-06] MEDS: ALBUTEROL/IPRATROPIUM (NEB) 3 ML AMP HHN SCH ×3 (08:18→19:40)
[2016-09-06] MEDS: CA CARBONATE (250 MG/ML) 5ML CUP NGT SCH ×2 (08:38→21:20)
[2016-09-06] MEDS: POLYETHYLENE GLYCOL 17 GM PACKET PO SCH ×2 (08:38→21:00)
[2016-09-06] MEDS: AMLODIPINE 5 MG TAB PO SCH ×2 (08:38→21:20)
[2016-09-06] MEDS: LOSARTAN 50 MG TAB PO SCH (08:39)
[2016-09-06] MEDS: FUROSEMIDE 40 MG TAB PO SCH ×2 (08:39→21:20)
[2016-09-06] MEDS: ENOXAPARIN 40 MG/0.4 ML SYG SC SCH (08:46)
--- NOTE | 2016-09-06 10:56 | PN ---
Date/Time of Note Date/Time of Note DATE: 09/06/16 TIME: 10:55 Assessment/Plan VTE Prophylaxis VTE Prophylaxis Intervention: LMWH Lines/Catheters [facility] Urinary Cath still in place: Yes Reason Cath still needed: urinary retention Assessment/Plan Chief Complaint/Hosp Course A/P: 60 M with: 1. Status post PEA cardiac arrest secondary to severe metabolic acidosis. The patient is being followed by Cardiology. As per Cardiology, there is no cardiac etiology to suggest the cardiac arrest. - monitor 2. Acute on chronic diastolic heart faded. Improving with diuresis. 3. Acute kidney injury that required temporary hemodialysis. Currently, off hemodialysis. Being followed by Nephrology. 4. Essential hypertension. Continue antihypertensives. 5. Acute encephalopathy secondary to #1, improving. 6. Acute respiratory failure with ARDS and pulmonary edema, status post mechanical ventilation, currently extubated. 7. Status post sepsis, probably secondary to underlying aspiration pneumonia. 8. Hypothyroidism, severe. Continue Synthroid. 9. Debility. Status post evaluation by physical therapy. Physical therapy is recommending [facility] facility versus acute rehabilitation unit for further rehabilitation. 10. Normocytic normochromic anemia. Continue to monitor H and H closely. 11. Diabetes mellitus. Hemoglobin A1c 5.0. Continue sliding scale insulin. 12. Occlusive thrombosis of the left cephalic vein - off anticoagulation for DVT tx - monitor, warm compresses prn 13. Fluid, electrolytes, and nutrition. Mechanical soft diet. Aspiration precautions. 14. DVT prophylaxis. Subcutaneous Lovenox. 15. Gastrointestinal prophylaxis. Proton pump inhibitors. Plan. Await placement - f/u with CM -they are actively looking for placement; continue current management. Problems: Subjective 24 Hr Interval Summary Free Text/Dictation No acute events overnight. Exam/Review of Systems Vital Signs Vitals Vital Signs Date Time Temp Pulse Resp B/P Pulse Ox O2 Delivery O2 Flow Rate FiO2 09/06/16 08:19 100 18 93 21 09/06/16 07:49 97.9 122/77 Intake and Output 09/05/16 09/05/16 09/06/16 15:00 23:00 07:00 Intake Total 1260 ml 800 ml Output Total 1200 ml 1500 ml Balance 60 ml -700 ml Exam GENERAL: This is an obese male lying in bed in no apparent distress, more alert today HEENT: Head normocephalic and atraumatic. Eyes: Anicteric sclerae. Conjunctivae clear. ENT: Nasal septum is midline. Oral mucosa is dry. NECK: Supple. No JVD noticed. RESPIRATORY: less bilaterally diminished breath sounds. No adventitious breath sounds. No use of accessory muscles of respiration. CARDIAC: Regular rate and rhythm. S1 and S2 heard. ABDOMEN: Soft, nontender and nondistended. Bowel sounds positive in all 4 quadrants. EXTREMITIES: No cyanosis, no clubbing. Bilateral lower extremity 1 to 2+ pitting edema. NEUROLOGIC: The patient is awake, alert, and oriented. Results Result Diagram: 09/04/16 0535 Results 24 hrs Laboratory Tests Test 09/05/16 11:51 09/05/16 17:07 09/05/16 21:22 09/06/16 07:56 Bedside Glucose 91 96 97 88 Medications Medications Current Medications Ondansetron HCl (Zofran Inj) 4 mg Q6H PRN IV NAUSEA AND/OR VOMITING; Start at 03:00 Metoclopramide HCl (Reglan) 10 mg Q6H PRN IV NAUSEA AND/OR VOMITING; Start at 03:00 Acetaminophen (Tylenol Tab) 650 mg Q6H PRN PO PAIN LEVEL 1-3 OR FEVER Last administered on 08/26/16 16:27; Admin Dose 650 MG; Start 08/01/16 at 03:00 Acetaminophen (Tylenol Supp) 650 mg Q4H PRN [place] PAIN LEVEL 1-3 OR FEVER; Start 08/01/16 at 06:30 Miscellaneous Information 1 ea NOTE XX ; Start 08/02/16 at 09:00 Glucose (Glutose) 15 gm Q15M PRN PO DECREASED GLUCOSE; Start 08/02/16 at 09:00 Glucose (Glutose) 22.5 gm Q15M PRN PO DECREASED GLUCOSE; Start 08/02/16 at 09:00 Dextrose (D50w Syringe) 25 ml Q15M PRN IV DECREASED GLUCOSE Last administered on 08/16/16 06:30; Admin Dose 25 ML; Start 08/02/16 at 09:00 Dextrose (D50w Syringe) 50 ml Q15M PRN IV DECREASED GLUCOSE; Start 08/02/16 at 09:00 Glucagon (Glucagen) 1 mg Q15M PRN IM DECREASED GLUCOSE; Start 08/02/16 at 09:00 Glucose (Glutose) 15 gm Q15M PRN BUCCAL DECREASED GLUCOSE; Start 08/02/16 at 09: 00 Calcium Carbonate (Ca Carbonate) 1,250 mg Q12 NGT Last administered on 08:38; Admin Dose 1,250 MG; Start 08/11/16 at 09:00 IV Flush (NS 10 ml) 10 ml PRN PRN IV FLUSH LINE; Start 08/11/16 at 20:00 Hydralazine HCl (Apresoline) 10 mg Q4H PRN IV SBP >160 Last administered on 23:33; Admin Dose 10 MG; Start 08/13/16 at 03:30 Hydromorphone HCl (Dilaudid) 1 mg Q4H PRN IV PAIN Last administered on 18:47; Admin Dose 1 MG; Start 08/16/16 at 08:30 Levothyroxine Sodium (Synthroid) 175 mcg DAILY@06 PO Last administered on 05:54; Admin Dose 175 MCG; Start 08/18/16 at 06:00 Pantoprazole (Protonix Tab) 40 mg DAILY@06 PO Last administered on 09/06/16 05: 54; Admin Dose 40 MG; Start 08/18/16 at 06:00 Doxazosin Mesylate (Cardura) 4 mg HS PO Last administered on 09/05/16 21:27; Admin Dose 4 MG; Start 08/19/16 at 21:00 Lorazepam (Ativan) 0.5 mg Q8H PRN PO ANXIETY; Start 08/19/16 at 14:00 Losartan Potassium (Cozaar) 50 mg DAILY PO Last administered on 09/06/16 08:39 ; Admin Dose 50 MG; Start 08/20/16 at 09:00 Amlodipine Besylate (Norvasc) 5 mg BID PO Last administered on 09/06/16 08:38; Admin Dose 5 MG; Start 08/23/16 at 21:00 Furosemide (Lasix) 40 mg BID PO Last administered on 09/06/16 08:39; Admin Dose 40 MG; Start 08/25/16 at 09:00 Polyethylene Glycol (Miralax) 17 gm BID PO Last administered on 09/06/16 08:38 ; Admin Dose 17 GM; Start 08/26/16 at 09:00 Bisacodyl (Dulcolax) 10 mg DAILY PRN PO CONSTIPATION Last administered on 16:27; Admin Dose 10 MG; Start 08/26/16 at 08:00 Enoxaparin Sodium (Lovenox) 40 mg DAILY SC Last administered on 09/06/16 08:46 ; Admin Dose 40 MG; Start 08/31/16 at 09:00 CAM COLON Sep 06, 2016 10:56
[2016-09-06 19:48] VITALS: BP 122/75; RESP 20
[2016-09-06] MEDS: DOXAZOSIN 4 MG TAB PO SCH (21:20)
[2016-09-07 02:00] VITALS: BP 121/75; RESP 20
[2016-09-07] MEDS: PANTOPRAZOLE (EC) 40 MG TAB PO SCH (06:04)
[2016-09-07] MEDS: LEVOTHYROXINE 175 MCG TAB PO SCH (06:04)
[2016-09-07 07:23] VITALS: BP 131/66; RESP 18
[2016-09-07] MEDS: INSULIN ASPART [NOVOLOG] 3 ML PEN SC SCH ×4 (07:53→20:36)
[2016-09-07] MEDS: LOSARTAN 50 MG TAB PO SCH (08:25)
[2016-09-07] MEDS: POLYETHYLENE GLYCOL 17 GM PACKET PO SCH ×2 (08:25→20:51)
[2016-09-07] MEDS: CA CARBONATE (250 MG/ML) 5ML CUP NGT SCH ×2 (08:25→20:51)
[2016-09-07] MEDS: AMLODIPINE 5 MG TAB PO SCH ×2 (08:26→20:52)
[2016-09-07] MEDS: FUROSEMIDE 40 MG TAB PO SCH ×2 (08:26→20:52)
[2016-09-07] MEDS: ENOXAPARIN 40 MG/0.4 ML SYG SC SCH (08:34)
[2016-09-07] MEDS: ALBUTEROL/IPRATROPIUM (NEB) 3 ML AMP HHN SCH ×3 (08:43→19:55)
--- NOTE | 2016-09-07 09:52 | PN ---
Date/Time of Note Date/Time of Note DATE: 09/07/16 TIME: 09:49 Assessment/Plan VTE Prophylaxis VTE Prophylaxis Intervention: other Lines/Catheters [facility] Type [facility] Saline Lock Urinary Cath still in place: Yes Reason Cath still needed: other (indicate) Assessment/Plan Chief Complaint/Hosp Course 1. Nonoliguric acute kidney injury with unknown baseline creatinine. Etiology secondary to acute tubular necrosis. The patient is status post hemodialysis. Patient's renal function has improved. Continue current treatment plan, supportive care, renally dose medications. 2. Acute congestive heart failure exacerbation. The patient is clinically improving. Continue current diuretic regimen. Follow up with cardiology. 3. Mineral bone disorder. Continue to monitor calcium and phosphorus levels. 4. Anemia. Continue to monitor hemoglobin and hematocrit levels. 5. Acute hypoxemic respiratory failure secondary to pneumonia and congestive heart failure. The patient clinically improving. Continue medical management. Continue supplemental oxygen. 6. Sepsis, status post shock. Continue current antibiotic course. 7. Hypothyroidism. Continue Synthroid. 8. Diabetes, continue Accu-Cheks and sliding scale. Disposition. Patient awaiting placed 9. History of ETOH abuse. 10. Status post cardiopulmonary arrest. Disposition patient is waiting placement Problems: Subjective 24 Hr Interval Summary Free Text/Dictation Patient stable no acute distress Exam/Review of Systems Vital Signs Vitals Vital Signs Date Time Temp Pulse Resp B/P Pulse Ox O2 Delivery O2 Flow Rate FiO2 09/07/16 08:46 101 20 92 21 09/07/16 07:23 98.7 131/66 Intake and Output 09/06/16 09/06/16 09/07/16 15:00 23:00 07:00 Intake Total 1040 ml 600 ml Output Total 350 ml 750 ml Balance 690 ml -150 ml Exam HEENT: Head is normocephalic. Pupils are reactive to light. NECK: Supple. HEART: Regular rate. LUNGS: Show diminished breath sounds at base. ABDOMEN: Soft, nontender to palpation. No rebound or guarding. EXTREMITIES: Negative for clubbing, cyanosis, no edema. DERMATOLOGIC: No rashes. MUSCULOSKELETAL: No joint effusions. NEUROLOGIC: No change in exam. Results Result Diagram: 09/04/16 0535 Results 24 hrs Laboratory Tests Test 09/06/16 11:53 09/06/16 16:58 09/06/16 21:19 09/07/16 07:43 Bedside Glucose 97 93 124 83 Medications Medications Current Medications Ondansetron HCl (Zofran Inj) 4 mg Q6H PRN IV NAUSEA AND/OR VOMITING; Start at 03:00 Metoclopramide HCl (Reglan) 10 mg Q6H PRN IV NAUSEA AND/OR VOMITING; Start at 03:00 Acetaminophen (Tylenol Tab) 650 mg Q6H PRN PO PAIN LEVEL 1-3 OR FEVER Last administered on 08/26/16 16:27; Admin Dose 650 MG; Start 08/01/16 at 03:00 Acetaminophen (Tylenol Supp) 650 mg Q4H PRN [place] PAIN LEVEL 1-3 OR FEVER; Start 08/01/16 at 06:30 Miscellaneous Information 1 ea NOTE XX ; Start 08/02/16 at 09:00 Glucose (Glutose) 15 gm Q15M PRN PO DECREASED GLUCOSE; Start 08/02/16 at 09:00 Glucose (Glutose) 22.5 gm Q15M PRN PO DECREASED GLUCOSE; Start 08/02/16 at 09:00 Dextrose (D50w Syringe) 25 ml Q15M PRN IV DECREASED GLUCOSE Last administered on 08/16/16 06:30; Admin Dose 25 ML; Start 08/02/16 at 09:00 Dextrose (D50w Syringe) 50 ml Q15M PRN IV DECREASED GLUCOSE; Start 08/02/16 at 09:00 Glucagon (Glucagen) 1 mg Q15M PRN IM DECREASED GLUCOSE; Start 08/02/16 at 09:00 Glucose (Glutose) 15 gm Q15M PRN BUCCAL DECREASED GLUCOSE; Start 08/02/16 at 09: 00 Calcium Carbonate (Ca Carbonate) 1,250 mg Q12 NGT Last administered on 08:25; Admin Dose 1,250 MG; Start 08/11/16 at 09:00 IV Flush (NS 10 ml) 10 ml PRN PRN IV FLUSH LINE; Start 08/11/16 at 20:00 Hydralazine HCl (Apresoline) 10 mg Q4H PRN IV SBP >160 Last administered on 23:33; Admin Dose 10 MG; Start 08/13/16 at 03:30 Hydromorphone HCl (Dilaudid) 1 mg Q4H PRN IV PAIN Last administered on 18:47; Admin Dose 1 MG; Start 08/16/16 at 08:30 Levothyroxine Sodium (Synthroid) 175 mcg DAILY@06 PO Last administered on 06:04; Admin Dose 175 MCG; Start 08/18/16 at 06:00 Pantoprazole (Protonix Tab) 40 mg DAILY@06 PO Last administered on 09/07/16 06: 04; Admin Dose 40 MG; Start 08/18/16 at 06:00 Doxazosin Mesylate (Cardura) 4 mg HS PO Last administered on 09/06/16 21:20; Admin Dose 4 MG; Start 08/19/16 at 21:00 Lorazepam (Ativan) 0.5 mg Q8H PRN PO ANXIETY; Start 08/19/16 at 14:00 Losartan Potassium (Cozaar) 50 mg DAILY PO Last administered on 09/07/16 08:25 ; Admin Dose 50 MG; Start 08/20/16 at 09:00 Amlodipine Besylate (Norvasc) 5 mg BID PO Last administered on 09/07/16 08:26; Admin Dose 5 MG; Start 08/23/16 at 21:00 Furosemide (Lasix) 40 mg BID PO Last administered on 09/07/16 08:26; Admin Dose 40 MG; Start 08/25/16 at 09:00 Polyethylene Glycol (Miralax) 17 gm BID PO Last administered on 09/06/16 08:38 ; Admin Dose 17 GM; Start 08/26/16 at 09:00 Bisacodyl (Dulcolax) 10 mg DAILY PRN PO CONSTIPATION Last administered on 16:27; Admin Dose 10 MG; Start 08/26/16 at 08:00 Enoxaparin Sodium (Lovenox) 40 mg DAILY SC Last administered on 09/07/16 08:34 ; Admin Dose 40 MG; Start 08/31/16 at 09:00 BALDOMERO HARRINGTON DO Sep 07, 2016 09:52
--- NOTE | 2016-09-07 10:36 | PN ---
Date/Time of Note Date/Time of Note DATE: 09/07/16 TIME: 10:36 Assessment/Plan VTE Prophylaxis VTE Prophylaxis Intervention: LMWH Lines/Catheters [facility]from [facility] Saline Lock Urinary Cath still in place: Yes Reason Cath still needed: urinary retention Assessment/Plan Chief Complaint/Hosp Course A/P: 60 M with: 1. Status post PEA cardiac arrest secondary to severe metabolic acidosis. The patient is being followed by Cardiology. As per Cardiology, there is no cardiac etiology to suggest the cardiac arrest. - monitor 2. Acute on chronic diastolic heart faded. Improving with diuresis. 3. Acute kidney injury that required temporary hemodialysis. Currently, off hemodialysis. Being followed by Nephrology. 4. Essential hypertension. Continue antihypertensives. 5. Acute encephalopathy secondary to #1, improving. 6. Acute respiratory failure with ARDS and pulmonary edema, status post mechanical ventilation, currently extubated. 7. Status post sepsis, probably secondary to underlying aspiration pneumonia. 8. Hypothyroidism, severe. Continue Synthroid. 9. Debility. Status post evaluation by physical therapy. Physical therapy is recommending longterm facility versus acute rehabilitation unit for further rehabilitation. 10. Normocytic normochromic anemia. Continue to monitor H and H closely. 11. Diabetes mellitus. Hemoglobin A1c 5.0. Continue sliding scale insulin. 12. Occlusive thrombosis of the left cephalic vein - off anticoagulation for DVT tx - monitor, warm compresses prn 13. Fluid, electrolytes, and nutrition. Mechanical soft diet. Aspiration precautions. 14. DVT prophylaxis. Subcutaneous Lovenox. 15. Gastrointestinal prophylaxis. Proton pump inhibitors. Plan. Await placement - f/u with [facility] -they are actively looking for placement; continue current management. Problems: Subjective 24 Hr Interval Summary Free Text/Dictation No acute events overnight. Seen by renal team this morning. Awaiting PT. Exam/Review of Systems Vital Signs Vitals Vital Signs Date Time Temp Pulse Resp B/P Pulse Ox O2 Delivery O2 Flow Rate FiO2 09/07/16 08:46 101 20 92 21 09/07/16 07:23 98.7 131/66 Intake and Output 09/06/16 09/06/16 09/07/16 15:00 23:00 07:00 Intake Total 1040 ml 600 ml Output Total 350 ml 750 ml Balance 690 ml -150 ml Exam GENERAL: This is an obese male lying in bed in no apparent distress, more alert today HEENT: Head normocephalic and atraumatic. Eyes: Anicteric sclerae. Conjunctivae clear. ENT: Nasal septum is midline. Oral mucosa is dry. NECK: Supple. No JVD noticed. RESPIRATORY: less bilaterally diminished breath sounds. No adventitious breath sounds. No use of accessory muscles of respiration. CARDIAC: Regular rate and rhythm. S1 and S2 heard. ABDOMEN: Soft, nontender and nondistended. Bowel sounds positive in all 4 quadrants. EXTREMITIES: No cyanosis, no clubbing. Bilateral lower extremity 1 to 2+ pitting edema. NEUROLOGIC: The patient is awake, alert, and oriented. Results Result Diagram: 09/04/16 0535 Results 24 hrs Laboratory Tests Test 09/06/16 11:53 09/06/16 16:58 09/06/16 21:19 09/07/16 07:43 Bedside Glucose 97 93 124 83 Medications Medications Current Medications Ondansetron HCl (Zofran Inj) 4 mg Q6H PRN IV NAUSEA AND/OR VOMITING; Start at 03:00 Metoclopramide HCl (Reglan) 10 mg Q6H PRN IV NAUSEA AND/OR VOMITING; Start at 03:00 Acetaminophen (Tylenol Tab) 650 mg Q6H PRN PO PAIN LEVEL 1-3 OR FEVER Last administered on 08/26/16 16:27; Admin Dose 650 MG; Start 08/01/16 at 03:00 Acetaminophen (Tylenol Supp) 650 mg Q4H PRN [place] PAIN LEVEL 1-3 OR FEVER; Start 08/01/16 at 06:30 Miscellaneous Information 1 ea NOTE XX ; Start 08/02/16 at 09:00 Glucose (Glutose) 15 gm Q15M PRN PO DECREASED GLUCOSE; Start 08/02/16 at 09:00 Glucose (Glutose) 22.5 gm Q15M PRN PO DECREASED GLUCOSE; Start 08/02/16 at 09:00 Dextrose (D50w Syringe) 25 ml Q15M PRN IV DECREASED GLUCOSE Last administered on 08/16/16 06:30; Admin Dose 25 ML; Start 08/02/16 at 09:00 Dextrose (D50w Syringe) 50 ml Q15M PRN IV DECREASED GLUCOSE; Start 08/02/16 at 09:00 Glucagon (Glucagen) 1 mg Q15M PRN IM DECREASED GLUCOSE; Start 08/02/16 at 09:00 Glucose (Glutose) 15 gm Q15M PRN BUCCAL DECREASED GLUCOSE; Start 08/02/16 at 09: 00 Calcium Carbonate (Ca Carbonate) 1,250 mg Q12 NGT Last administered on 08:25; Admin Dose 1,250 MG; Start 08/11/16 at 09:00 IV Flush (NS 10 ml) 10 ml PRN PRN IV FLUSH LINE; Start 08/11/16 at 20:00 Hydralazine HCl (Apresoline) 10 mg Q4H PRN IV SBP >160 Last administered on 23:33; Admin Dose 10 MG; Start 08/13/16 at 03:30 Hydromorphone HCl (Dilaudid) 1 mg Q4H PRN IV PAIN Last administered on 18:47; Admin Dose 1 MG; Start 08/16/16 at 08:30 Levothyroxine Sodium (Synthroid) 175 mcg DAILY@06 PO Last administered on 06:04; Admin Dose 175 MCG; Start 08/18/16 at 06:00 Pantoprazole (Protonix Tab) 40 mg DAILY@06 PO Last administered on 09/07/16 06: 04; Admin Dose 40 MG; Start 08/18/16 at 06:00 Doxazosin Mesylate (Cardura) 4 mg HS PO Last administered on 09/06/16 21:20; Admin Dose 4 MG; Start 08/19/16 at 21:00 Lorazepam (Ativan) 0.5 mg Q8H PRN PO ANXIETY; Start 08/19/16 at 14:00 Losartan Potassium (Cozaar) 50 mg DAILY PO Last administered on 09/07/16 08:25 ; Admin Dose 50 MG; Start 08/20/16 at 09:00 Amlodipine Besylate (Norvasc) 5 mg BID PO Last administered on 09/07/16 08:26; Admin Dose 5 MG; Start 08/23/16 at 21:00 Furosemide (Lasix) 40 mg BID PO Last administered on 09/07/16 08:26; Admin Dose 40 MG; Start 08/25/16 at 09:00 Polyethylene Glycol (Miralax) 17 gm BID PO Last administered on 09/06/16 08:38 ; Admin Dose 17 GM; Start 08/26/16 at 09:00 Bisacodyl (Dulcolax) 10 mg DAILY PRN PO CONSTIPATION Last administered on 16:27; Admin Dose 10 MG; Start 08/26/16 at 08:00 Enoxaparin Sodium (Lovenox) 40 mg DAILY SC Last administered on 09/07/16 08:34 ; Admin Dose 40 MG; Start 08/31/16 at 09:00 CAM COLON Sep 07, 2016 10:36
[2016-09-07 19:23] VITALS: BP 140/73; RESP 20
[2016-09-07] MEDS: DOXAZOSIN 4 MG TAB PO SCH (20:52)
[2016-09-08 01:45] VITALS: BP 135/78; RESP 20
[2016-09-08] MEDS: LEVOTHYROXINE 175 MCG TAB PO SCH (05:43)
[2016-09-08] MEDS: PANTOPRAZOLE (EC) 40 MG TAB PO SCH (05:43)
[2016-09-08 06:24] LABS: ADD SCAN DIFF NO
[2016-09-08 06:43] LABS: BASOPHIL # 0.1 10^3/ul (0.0-0.1); BASOPHILS % 0.6 % (0.0-2.0); EOSINOPHILS # 0.5 10^3/ul (0.0-0.5); EOSINOPHILS % 3.7 % (0.0-7.0); HEMATOCRIT 26.5 % (42.0-52.0); HEMOGLOBIN 8.6 g/dl (14.0-18.0); LYMPHOCYTES # 3.2 10^3/ul (0.8-2.9); LYMPHOCYTES % 24.8 % (15.0-51.0); MEAN CORPUSCULAR HEMOGLOBIN 31.5 pg (29.0-33.0); MEAN CORPUSCULAR HGB CONC 32.5 g/dl (32.0-37.0); MEAN CORPUSCULAR VOLUME 97.1 fl (82.0-101.0); MEAN PLATELET VOLUME 10.4 fl (7.4-10.4); MONOCYTE # 1.5 10^3/ul (0.3-0.9); MONOCYTES % 11.7 % (0.0-11.0); NEUTROPHIL # 7.5 10^3/ul (1.6-7.5); NEUTROPHILS % 58.7 % (39.0-77.0); PLATELET COUNT 516 10^3/UL (140-415); RED BLOOD COUNT 2.73 10^6/ul (4.70-6.10); RED CELL DISTRIBUTION WIDTH 14.9 % (11.5-14.5); WHITE BLOOD COUNT 12.8 10^3/ul (4.8-10.8)
[2016-09-08 07:14] LABS: CREATININE 1.25 mg/dl (0.61-1.24)
[2016-09-08] MEDS: INSULIN ASPART [NOVOLOG] 3 ML PEN SC SCH ×4 (07:54→20:13)
[2016-09-08 07:59] VITALS: BP 134/79; RESP 18
[2016-09-08] MEDS: ALBUTEROL/IPRATROPIUM (NEB) 3 ML AMP HHN SCH ×3 (08:36→20:25)
[2016-09-08] MEDS: LOSARTAN 50 MG TAB PO SCH (08:41)
[2016-09-08] MEDS: CA CARBONATE (250 MG/ML) 5ML CUP NGT SCH ×2 (08:42→20:51)
[2016-09-08] MEDS: POLYETHYLENE GLYCOL 17 GM PACKET PO SCH ×2 (08:42→20:51)
[2016-09-08] MEDS: AMLODIPINE 5 MG TAB PO SCH ×2 (08:42→20:52)
[2016-09-08] MEDS: FUROSEMIDE 40 MG TAB PO SCH ×2 (08:42→20:52)
[2016-09-08] MEDS: ENOXAPARIN 40 MG/0.4 ML SYG SC SCH (09:23)
--- NOTE | 2016-09-08 10:10 | CONS ---
Date/Time of Note Date/Time of Note DATE: 09/08/16 TIME: 10:08 Consult Date/Type/Reason Admit Date/Time August 01, 2016 at 00:50 Initial Consult Date 08/01/16 Type of Consultation: neph Subjective continues good uo. poc reviewed with dr. aponte. Exam HEENT: Head is normocephalic. Pupils are reactive to light. NECK: Supple. HEART: Regular rate. LUNGS: Show diminished breath sounds at base. ABDOMEN: Soft, nontender to palpation. No rebound or guarding. EXTREMITIES: Negative for clubbing, cyanosis, no edema. DERMATOLOGIC: No rashes. MUSCULOSKELETAL: No joint effusions. NEUROLOGIC: No change in exam. Objective Vital Signs Date Time Temp Pulse Resp B/P Pulse Ox O2 Delivery O2 Flow Rate FiO2 09/08/16 08:36 99 20 94 21 09/08/16 07:59 98.0 134/79 Intake and Output 09/07/16 09/07/16 09/08/16 15:00 23:00 07:00 Intake Total 1080 ml 480 ml Output Total 1100 ml 1000 ml Balance -20 ml -520 ml Results/Medications Result Diagram: 09/08/16 0527 09/08/16 0527 Results 24 hrs Laboratory Tests Test 09/07/16 11:54 09/07/16 17:46 09/07/16 20:36 09/08/16 05:27 Bedside Glucose 96 81 115 White Blood Count 12.8 #H Red Blood Count 2.73 L Hemoglobin 8.6 L Hematocrit 26.5 L Mean Corpuscular Volume 97.1 Mean Corpuscular Hemoglobin 31.5 Mean Corpuscular Hemoglobin Concent 32.5 Red Cell Distribution Width 14.9 H Platelet Count 516 H Mean Platelet Volume 10.4 Neutrophils % 58.7 Lymphocytes % 24.8 Monocytes % 11.7 H Eosinophils % 3.7 Basophils % 0.6 Nucleated Red Blood Cells % 0.0 Neutrophils # 7.5 Lymphocytes # 3.2 H Monocytes # 1.5 H Eosinophils # 0.5 Basophils # 0.1 Nucleated Red Blood Cells # 0.0 Blood Urea Nitrogen 29 H Creatinine 1.25 H Test 09/08/16 07:53 Bedside Glucose 83 Medications Current Medications Ondansetron HCl (Zofran Inj) 4 mg Q6H PRN IV NAUSEA AND/OR VOMITING; Start at 03:00 Metoclopramide HCl (Reglan) 10 mg Q6H PRN IV NAUSEA AND/OR VOMITING; Start at 03:00 Acetaminophen (Tylenol Tab) 650 mg Q6H PRN PO PAIN LEVEL 1-3 OR FEVER Last administered on 08/26/16 16:27; Admin Dose 650 MG; Start 08/01/16 at 03:00 Acetaminophen (Tylenol Supp) 650 mg Q4H PRN [place] PAIN LEVEL 1-3 OR FEVER; Start 08/01/16 at 06:30 Miscellaneous Information 1 ea NOTE XX ; Start 08/02/16 at 09:00 Glucose (Glutose) 15 gm Q15M PRN PO DECREASED GLUCOSE; Start 08/02/16 at 09:00 Glucose (Glutose) 22.5 gm Q15M PRN PO DECREASED GLUCOSE; Start 08/02/16 at 09:00 Dextrose (D50w Syringe) 25 ml Q15M PRN IV DECREASED GLUCOSE Last administered on 08/16/16 06:30; Admin Dose 25 ML; Start 08/02/16 at 09:00 Dextrose (D50w Syringe) 50 ml Q15M PRN IV DECREASED GLUCOSE; Start 08/02/16 at 09:00 Glucagon (Glucagen) 1 mg Q15M PRN IM DECREASED GLUCOSE; Start 08/02/16 at 09:00 Glucose (Glutose) 15 gm Q15M PRN BUCCAL DECREASED GLUCOSE; Start 08/02/16 at 09: 00 Calcium Carbonate (Ca Carbonate) 1,250 mg Q12 NGT Last administered on 08:42; Admin Dose 1,250 MG; Start 08/11/16 at 09:00 IV Flush (NS 10 ml) 10 ml PRN PRN IV FLUSH LINE; Start 08/11/16 at 20:00 Hydralazine HCl (Apresoline) 10 mg Q4H PRN IV SBP >160 Last administered on 23:33; Admin Dose 10 MG; Start 08/13/16 at 03:30 Hydromorphone HCl (Dilaudid) 1 mg Q4H PRN IV PAIN Last administered on 18:47; Admin Dose 1 MG; Start 08/16/16 at 08:30 Pantoprazole (Protonix Tab) 40 mg DAILY@06 PO Last administered on 09/08/16 05: 43; Admin Dose 40 MG; Start 08/18/16 at 06:00 Doxazosin Mesylate (Cardura) 4 mg HS PO Last administered on 09/07/16 20:52; Admin Dose 4 MG; Start 08/19/16 at 21:00 Lorazepam (Ativan) 0.5 mg Q8H PRN PO ANXIETY; Start 08/19/16 at 14:00 Losartan Potassium (Cozaar) 50 mg DAILY PO Last administered on 09/08/16 08:41 ; Admin Dose 50 MG; Start 08/20/16 at 09:00 Amlodipine Besylate (Norvasc) 5 mg BID PO Last administered on 09/08/16 08:42; Admin Dose 5 MG; Start 08/23/16 at 21:00 Furosemide (Lasix) 40 mg BID PO Last administered on 09/08/16 08:42; Admin Dose 40 MG; Start 08/25/16 at 09:00 Polyethylene Glycol (Miralax) 17 gm BID PO Last administered on 09/08/16 08:42 ; Admin Dose 17 GM; Start 08/26/16 at 09:00 Bisacodyl (Dulcolax) 10 mg DAILY PRN PO CONSTIPATION Last administered on 16:27; Admin Dose 10 MG; Start 08/26/16 at 08:00 Enoxaparin Sodium (Lovenox) 40 mg DAILY SC Last administered on 09/08/16 09:23 ; Admin Dose 40 MG; Start 08/31/16 at 09:00 Levothyroxine Sodium (Synthroid) 200 mcg DAILY@06 PO ; Start 09/09/16 at 06:00 Liothyronine Sodium (Cytomel) 5 mcg DAILY PO ; Start 09/08/16 at 09:00 Assessment/Plan Chief Complaint/Hosp Course 1. Nonoliguric acute kidney injury with unknown baseline creatinine. Etiology secondary to acute tubular necrosis. The patient is status post hemodialysis. Patient's renal function has improved. Continue current treatment plan, supportive care, renally dose medications. 2. Acute congestive heart failure exacerbation. The patient is clinically improving. Continue current diuretic regimen. Follow up with cardiology. 3. Mineral bone disorder. Continue to monitor calcium and phosphorus levels. 4. Anemia. Continue to monitor hemoglobin and hematocrit levels. 5. Acute hypoxemic respiratory failure secondary to pneumonia and congestive heart failure. The patient clinically improving. Continue medical management. Continue supplemental oxygen. 6. Sepsis, status post shock. Continue current antibiotic course. 7. Hypothyroidism. Continue Synthroid. 8. Diabetes, continue Accu-Cheks and sliding scale. Disposition. Patient awaiting placed 9. History of ETOH abuse. 10. Status post cardiopulmonary arrest. Disposition patient is waiting placement will see prn. thanks. Problems: OSIEL OMALLEY MD Sep 08, 2016 10:10
--- NOTE | 2016-09-08 12:03 | PN ---
Date/Time of Note Date/Time of Note DATE: 09/08/16 TIME: 12:00 Assessment/Plan VTE Prophylaxis VTE Prophylaxis Intervention: LMWH Lines/Catheters [facility]from [facility] Saline Lock Urinary Cath still in place: Yes Assessment/Plan Chief Complaint/Hosp Course A/P: 60 M with: 1. Status post PEA cardiac arrest secondary to severe metabolic acidosis. The patient is being followed by Cardiology. As per Cardiology, there is no cardiac etiology to suggest the cardiac arrest. - monitor 2. Acute on chronic diastolic heart faded. Improving with diuresis. 3. Acute kidney injury that required temporary hemodialysis. Currently, off hemodialysis. Being followed by Nephrology. 4. Essential hypertension. Continue antihypertensives. 5. Acute encephalopathy secondary to #1, improving. 6. Acute respiratory failure with ARDS and pulmonary edema, status post mechanical ventilation, currently extubated. 7. Status post sepsis, probably secondary to underlying aspiration pneumonia. 8. Hypothyroidism, severe. Continue Synthroid. 9. Debility. Status post evaluation by physical therapy. Physical therapy is recommending [facility] facility versus acute rehabilitation unit for further rehabilitation. 10. Normocytic normochromic anemia. Continue to monitor H and H closely. 11. Diabetes mellitus. Hemoglobin A1c 5.0. Continue sliding scale insulin. 12. Occlusive thrombosis of the left cephalic vein - off anticoagulation for DVT tx - monitor, warm compresses prn 13. Fluid, electrolytes, and nutrition. Mechanical soft diet. Aspiration precautions. 14. DVT prophylaxis. Subcutaneous Lovenox. 15. Gastrointestinal prophylaxis. Proton pump inhibitors. Plan. Await placement - f/u with CM -they are actively looking for placement; continue current management. Problems: Subjective 24 Hr Interval Summary Free Text/Dictation No acute events overnight. Exam/Review of Systems Vital Signs Vitals Vital Signs Date Time Temp Pulse Resp B/P Pulse Ox O2 Delivery O2 Flow Rate FiO2 09/08/16 08:36 99 20 94 21 09/08/16 07:59 98.0 134/79 Intake and Output 09/07/16 09/07/16 09/08/16 15:00 23:00 07:00 Intake Total 1080 ml 480 ml Output Total 1100 ml 1000 ml Balance -20 ml -520 ml Results Result Diagram: 09/08/16 0527 09/08/16 0527 Results 24 hrs Laboratory Tests Test 09/07/16 17:46 09/07/16 20:36 09/08/16 05:27 09/08/16 07:53 Bedside Glucose 81 115 83 White Blood Count 12.8 #H Red Blood Count 2.73 L Hemoglobin 8.6 L Hematocrit 26.5 L Mean Corpuscular Volume 97.1 Mean Corpuscular Hemoglobin 31.5 Mean Corpuscular Hemoglobin Concent 32.5 Red Cell Distribution Width 14.9 H Platelet Count 516 H Mean Platelet Volume 10.4 Neutrophils % 58.7 Lymphocytes % 24.8 Monocytes % 11.7 H Eosinophils % 3.7 Basophils % 0.6 Nucleated Red Blood Cells % 0.0 Neutrophils # 7.5 Lymphocytes # 3.2 H Monocytes # 1.5 H Eosinophils # 0.5 Basophils # 0.1 Nucleated Red Blood Cells # 0.0 Blood Urea Nitrogen 29 H Creatinine 1.25 H Medications Medications Current Medications Ondansetron HCl (Zofran Inj) 4 mg Q6H PRN IV NAUSEA AND/OR VOMITING; Start at 03:00 Metoclopramide HCl (Reglan) 10 mg Q6H PRN IV NAUSEA AND/OR VOMITING; Start at 03:00 Acetaminophen (Tylenol Tab) 650 mg Q6H PRN PO PAIN LEVEL 1-3 OR FEVER Last administered on 08/26/16 16:27; Admin Dose 650 MG; Start 08/01/16 at 03:00 Acetaminophen (Tylenol Supp) 650 mg Q4H PRN [place] PAIN LEVEL 1-3 OR FEVER; Start 08/01/16 at 06:30 Miscellaneous Information 1 ea NOTE XX ; Start 08/02/16 at 09:00 Glucose (Glutose) 15 gm Q15M PRN PO DECREASED GLUCOSE; Start 08/02/16 at 09:00 Glucose (Glutose) 22.5 gm Q15M PRN PO DECREASED GLUCOSE; Start 08/02/16 at 09:00 Dextrose (D50w Syringe) 25 ml Q15M PRN IV DECREASED GLUCOSE Last administered on 08/16/16 06:30; Admin Dose 25 ML; Start 08/02/16 at 09:00 Dextrose (D50w Syringe) 50 ml Q15M PRN IV DECREASED GLUCOSE; Start 08/02/16 at 09:00 Glucagon (Glucagen) 1 mg Q15M PRN IM DECREASED GLUCOSE; Start 08/02/16 at 09:00 Glucose (Glutose) 15 gm Q15M PRN BUCCAL DECREASED GLUCOSE; Start 08/02/16 at 09: 00 Calcium Carbonate (Ca Carbonate) 1,250 mg Q12 NGT Last administered on 08:42; Admin Dose 1,250 MG; Start 08/11/16 at 09:00 IV Flush (NS 10 ml) 10 ml PRN PRN IV FLUSH LINE; Start 08/11/16 at 20:00 Hydralazine HCl (Apresoline) 10 mg Q4H PRN IV SBP >160 Last administered on 23:33; Admin Dose 10 MG; Start 08/13/16 at 03:30 Hydromorphone HCl (Dilaudid) 1 mg Q4H PRN IV PAIN Last administered on 18:47; Admin Dose 1 MG; Start 08/16/16 at 08:30 Pantoprazole (Protonix Tab) 40 mg DAILY@06 PO Last administered on 09/08/16 05: 43; Admin Dose 40 MG; Start 08/18/16 at 06:00 Doxazosin Mesylate (Cardura) 4 mg HS PO Last administered on 09/07/16 20:52; Admin Dose 4 MG; Start 08/19/16 at 21:00 Lorazepam (Ativan) 0.5 mg Q8H PRN PO ANXIETY; Start 08/19/16 at 14:00 Losartan Potassium (Cozaar) 50 mg DAILY PO Last administered on 09/08/16 08:41 ; Admin Dose 50 MG; Start 08/20/16 at 09:00 Amlodipine Besylate (Norvasc) 5 mg BID PO Last administered on 09/08/16 08:42; Admin Dose 5 MG; Start 08/23/16 at 21:00 Furosemide (Lasix) 40 mg BID PO Last administered on 09/08/16 08:42; Admin Dose 40 MG; Start 08/25/16 at 09:00 Polyethylene Glycol (Miralax) 17 gm BID PO Last administered on 09/08/16 08:42 ; Admin Dose 17 GM; Start 08/26/16 at 09:00 Bisacodyl (Dulcolax) 10 mg DAILY PRN PO CONSTIPATION Last administered on 16:27; Admin Dose 10 MG; Start 08/26/16 at 08:00 Enoxaparin Sodium (Lovenox) 40 mg DAILY SC Last administered on 09/08/16 09:23 ; Admin Dose 40 MG; Start 08/31/16 at 09:00 Levothyroxine Sodium (Synthroid) 200 mcg DAILY@06 PO ; Start 09/09/16 at 06:00 Liothyronine Sodium (Cytomel) 5 mcg DAILY PO ; Start 09/08/16 at 09:00 CAM COLON Sep 08, 2016 12:03
[2016-09-08] MEDS: LIOTHYRONINE 5 MCG TAB PO SCH (12:25)
[2016-09-08 19:17] VITALS: BP 130/83; RESP 20
[2016-09-08] MEDS: DOXAZOSIN 4 MG TAB PO SCH (20:52)
[2016-09-09 02:00] VITALS: BP 109/73; RESP 20
[2016-09-09] MEDS: PANTOPRAZOLE (EC) 40 MG TAB PO SCH (06:36)
[2016-09-09] MEDS: LEVOTHYROXINE 100 MCG TAB PO SCH (06:36)
[2016-09-09] MEDS: ALBUTEROL/IPRATROPIUM (NEB) 3 ML AMP HHN SCH ×3 (08:00→20:29)
[2016-09-09 08:12] VITALS: BP 109/62; RESP 18
[2016-09-09] MEDS: LIOTHYRONINE 5 MCG TAB PO SCH (08:15)
[2016-09-09] MEDS: AMLODIPINE 5 MG TAB PO SCH ×2 (08:15→21:40)
[2016-09-09] MEDS: FUROSEMIDE 40 MG TAB PO SCH ×2 (08:15→21:39)
[2016-09-09] MEDS: POLYETHYLENE GLYCOL 17 GM PACKET PO SCH ×2 (08:15→21:39)
[2016-09-09] MEDS: CA CARBONATE (250 MG/ML) 5ML CUP NGT SCH ×2 (08:15→21:39)
[2016-09-09] MEDS: INSULIN ASPART [NOVOLOG] 3 ML PEN SC SCH ×4 (08:15→21:00)
[2016-09-09] MEDS: LOSARTAN 50 MG TAB PO SCH (08:16)
[2016-09-09] MEDS: ENOXAPARIN 40 MG/0.4 ML SYG SC SCH (08:21)
--- NOTE | 2016-09-09 10:01 | PN ---
Date/Time of Note Date/Time of Note DATE: 09/09/16 TIME: 10:00 Assessment/Plan VTE Prophylaxis VTE Prophylaxis Intervention: LMWH Lines/Catheters IV [facility] Type (from [facility] Saline Lock Urinary Cath still in place: Yes Reason Cath still needed: urinary retention Assessment/Plan Chief Complaint/Hosp Course A/P: 60 M with: 1. Status post PEA cardiac arrest secondary to severe metabolic acidosis. The patient is being followed by Cardiology. As per Cardiology, there is no cardiac etiology to suggest the cardiac arrest. - monitor 2. Acute on chronic diastolic heart faded. Improving with diuresis. 3. Acute kidney injury that required temporary hemodialysis. Currently, off hemodialysis. Being followed by Nephrology. 4. Essential hypertension. Continue antihypertensives. 5. Acute encephalopathy secondary to #1, improving. 6. Acute respiratory failure with ARDS and pulmonary edema, status post mechanical ventilation, currently extubated. 7. Status post sepsis, probably secondary to underlying aspiration pneumonia. 8. Hypothyroidism, severe. Continue Synthroid. 9. Debility. Status post evaluation by physical therapy. [facility] for further rehabilitation. 10. Normocytic normochromic anemia. Continue to monitor H and H closely. 11. Diabetes mellitus. Hemoglobin A1c 5.0. Continue sliding scale insulin. 12. Occlusive thrombosis of the left cephalic vein - off anticoagulation for DVT tx - monitor, warm compresses prn 13. Fluid, electrolytes, and nutrition. Mechanical soft diet. Aspiration precautions. 14. DVT prophylaxis. Subcutaneous Lovenox. 15. Gastrointestinal prophylaxis. Proton pump inhibitors. Plan. Await placement - f/u with CM -they are actively looking for placement; continue current management. Problems: Subjective 24 Hr Interval Summary Free Text/Dictation No acute events overnight. Exam/Review of Systems Vital Signs Vitals Vital Signs Date Time Temp Pulse Resp B/P Pulse Ox O2 Delivery O2 Flow Rate FiO2 09/09/16 08:12 98.8 103 18 109/62 93 09/08/16 20:28 21 Intake and Output 09/08/16 09/08/16 09/09/16 15:00 23:00 07:00 Intake Total 1080 ml Output Total 800 ml Balance 280 ml Exam GENERAL: This is an obese male lying in bed in no apparent distress, more alert today HEENT: Head normocephalic and atraumatic. Eyes: Anicteric sclerae. Conjunctivae clear. ENT: Nasal septum is midline. Oral mucosa is dry. NECK: Supple. No JVD noticed. RESPIRATORY: less bilaterally diminished breath sounds. No adventitious breath sounds. No use of accessory muscles of respiration. CARDIAC: Regular rate and rhythm. S1 and S2 heard. ABDOMEN: Soft, nontender and nondistended. Bowel sounds positive in all 4 quadrants. EXTREMITIES: No cyanosis, no clubbing. Bilateral lower extremity 1 to 2+ pitting edema. NEUROLOGIC: The patient is awake, alert, and oriented. Results Result Diagram: 09/08/1652609/08/16526 Results 24 hrs Laboratory Tests Test 09/08/16 12:01 09/08/16 17:23 09/08/16 20:12 09/09/16 08:17 Bedside Glucose 96 134 105 116 Medications Medications Current Medications Ondansetron HCl (Zofran Inj) 4 mg Q6H PRN IV NAUSEA AND/OR VOMITING; Start at 03:00 Metoclopramide HCl (Reglan) 10 mg Q6H PRN IV NAUSEA AND/OR VOMITING; Start at 03:00 Acetaminophen (Tylenol Tab) 650 mg Q6H PRN PO PAIN LEVEL 1-3 OR FEVER Last administered on 08/26/16 16:27; Admin Dose 650 MG; Start 08/01/16 at 03:00 Acetaminophen (Tylenol Supp) 650 mg Q4H PRN [place] PAIN LEVEL 1-3 OR FEVER; Start 08/01/16 at 06:30 Miscellaneous Information 1 ea NOTE XX ; Start 08/02/16 at 09:00 Glucose (Glutose) 15 gm Q15M PRN PO DECREASED GLUCOSE; Start 08/02/16 at 09:00 Glucose (Glutose) 22.5 gm Q15M PRN PO DECREASED GLUCOSE; Start 08/02/16 at 09:00 Dextrose (D50w Syringe) 25 ml Q15M PRN IV DECREASED GLUCOSE Last administered on 08/16/16 06:30; Admin Dose 25 ML; Start 08/02/16 at 09:00 Dextrose (D50w Syringe) 50 ml Q15M PRN IV DECREASED GLUCOSE; Start 08/02/16 at 09:00 Glucagon (Glucagen) 1 mg Q15M PRN IM DECREASED GLUCOSE; Start 08/02/16 at 09:00 Glucose (Glutose) 15 gm Q15M PRN BUCCAL DECREASED GLUCOSE; Start 08/02/16 at 09: 00 Calcium Carbonate (Ca Carbonate) 1,250 mg Q12 NGT Last administered on 08:15; Admin Dose 1,250 MG; Start 08/11/16 at 09:00 IV Flush (NS 10 ml) 10 ml PRN PRN IV FLUSH LINE; Start 08/11/16 at 20:00 Hydralazine HCl (Apresoline) 10 mg Q4H PRN IV SBP >160 Last administered on 23:33; Admin Dose 10 MG; Start 08/13/16 at 03:30 Hydromorphone HCl (Dilaudid) 1 mg Q4H PRN IV PAIN Last administered on 18:47; Admin Dose 1 MG; Start 08/16/16 at 08:30 Pantoprazole (Protonix Tab) 40 mg DAILY@06 PO Last administered on 09/09/16 06: 36; Admin Dose 40 MG; Start 08/18/16 at 06:00 Doxazosin Mesylate (Cardura) 4 mg HS PO Last administered on 09/08/16 20:52; Admin Dose 4 MG; Start 08/19/16 at 21:00 Lorazepam (Ativan) 0.5 mg Q8H PRN PO ANXIETY; Start 08/19/16 at 14:00 Losartan Potassium (Cozaar) 50 mg DAILY PO Last administered on 09/09/16 08:16 ; Admin Dose 50 MG; Start 08/20/16 at 09:00 Amlodipine Besylate (Norvasc) 5 mg BID PO Last administered on 09/09/16 08:15; Admin Dose 5 MG; Start 08/23/16 at 21:00 Furosemide (Lasix) 40 mg BID PO Last administered on 09/09/16 08:15; Admin Dose 40 MG; Start 08/25/16 at 09:00 Polyethylene Glycol (Miralax) 17 gm BID PO Last administered on 09/09/16 08:15 ; Admin Dose 17 GM; Start 08/26/16 at 09:00 Bisacodyl (Dulcolax) 10 mg DAILY PRN PO CONSTIPATION Last administered on 16:27; Admin Dose 10 MG; Start 08/26/16 at 08:00 Enoxaparin Sodium (Lovenox) 40 mg DAILY SC Last administered on 09/09/16 08:21 ; Admin Dose 40 MG; Start 08/31/16 at 09:00 Levothyroxine Sodium (Synthroid) 200 mcg DAILY@06 PO Last administered on 06:36; Admin Dose 200 MCG; Start 09/09/16 at 06:00 Liothyronine Sodium (Cytomel) 5 mcg DAILY PO Last administered on 09/09/16 08: 15; Admin Dose 5 MCG; Start 09/08/16 at 09:00 CAM COLON Sep 09, 2016 10:01
[2016-09-09 20:00] VITALS: BP 128/72; RESP 20
[2016-09-09] MEDS: DOXAZOSIN 4 MG TAB PO SCH (21:40)
[2016-09-10 02:00] VITALS: BP 109/60; RESP 18
[2016-09-10] MEDS: LEVOTHYROXINE 100 MCG TAB PO SCH (05:41)
[2016-09-10] MEDS: PANTOPRAZOLE (EC) 40 MG TAB PO SCH (05:41)
[2016-09-10] MEDS: INSULIN ASPART [NOVOLOG] 3 ML PEN SC SCH ×4 (08:10→21:00)
[2016-09-10 08:13] VITALS: BP 116/72; RESP 20
[2016-09-10] MEDS: POLYETHYLENE GLYCOL 17 GM PACKET PO SCH ×2 (09:00→21:09)
[2016-09-10] MEDS: AMLODIPINE 5 MG TAB PO SCH ×2 (09:05→21:00)
[2016-09-10] MEDS: LIOTHYRONINE 5 MCG TAB PO SCH (09:06)
[2016-09-10] MEDS: CA CARBONATE (250 MG/ML) 5ML CUP NGT SCH ×2 (09:06→21:09)
[2016-09-10] MEDS: FUROSEMIDE 40 MG TAB PO SCH ×2 (09:06→21:00)
[2016-09-10] MEDS: ENOXAPARIN 40 MG/0.4 ML SYG SC SCH (09:11)
[2016-09-10] MEDS: ALBUTEROL/IPRATROPIUM (NEB) 3 ML AMP HHN SCH ×3 (09:16→19:39)
[2016-09-10 10:06] VITALS: BP 104/66; PULSE 106
[2016-09-10] MEDS: LOSARTAN 50 MG TAB PO SCH (10:06)
--- NOTE | 2016-09-10 13:34 | PN ---
Date/Time of Note Date/Time of Note DATE: 09/10/16 TIME: 13:33 Assessment/Plan VTE Prophylaxis VTE Prophylaxis Intervention: SCD's Lines/Catheters [facility] Saline Lock Urinary Cath still in place: Yes Reason Cath still needed: other (indicate) (will dc) Assessment/Plan Assessment/Plan 60 M admitted in PEA arrest 2/2 severe metabolic acidosis with ROSC following CPR. Etiology of metabolic acidosis possibly from septic shock/lactic acidosis? Metabolic acidosis resolved following temporary HD. 1. Status post PEA cardiac arrest secondary to severe metabolic acidosis. The patient is being followed by Cardiology. As per Cardiology, there is no cardiac etiology to suggest the cardiac arrest. - monitor 2. Acute on chronic diastolic heart faded. Improving with diuresis. 3. Acute kidney injury that required temporary hemodialysis. Currently, off hemodialysis. Being followed by Nephrology. 4. Essential hypertension. Continue antihypertensives. 5. Acute encephalopathy secondary to #1, RESOLVED 6. Acute respiratory failure with ARDS and pulmonary edema, status post mechanical ventilation, SP EXTUBATION 7. Status post sepsis, probably secondary to underlying aspiration pneumonia. RESOLVED 8. Hypothyroidism, severe. Continue Synthroid. 9. Debility. Physical therapy is recommending [facility] facility versus acute rehabilitation unit for further rehabilitation. 10. Normocytic normochromic anemia. Continue to monitor H and H closely. 11. Elevated BGs. Hemoglobin A1c 5.0. Continue sliding scale insulin. 12. Occlusive thrombosis of the left cephalic vein - off anticoagulation for DVT tx - monitor, warm compresses prn 13. Fluid, electrolytes, and nutrition. Mechanical soft diet. Aspiration precautions. 14. DVT prophylaxis. Subcutaneous Lovenox. Plan. Await placement - f/u with CM -they are actively looking for placement; continue current management. Subjective 24 Hr Interval Summary Free Text/Dictation No complaints. Wants to know when he'll get to go home. Exam/Review of Systems Vital Signs Vitals Vital Signs Date Time Temp Pulse Resp B/P Pulse Ox O2 Delivery O2 Flow Rate FiO2 09/10/16 10:06 106 104/66 09/10/16 09:17 20 93 21 09/10/16 08:13 98.6 Intake and Output 09/09/16 09/09/16 09/10/16 15:00 23:00 07:00 Intake Total 800 ml 480 ml 840 ml Output Total 900 ml 700 ml 1400 ml Balance -100 ml -220 ml -560 ml Exam nad, laying in bed no mrg lungs clear abd soft no rashes Results Result Diagram: 09/08/1652609/08/16526 Results 24 hrs Laboratory Tests Test 09/09/16 17:18 09/09/16 21:08 09/10/16 08:09 09/10/16 12:22 Bedside Glucose 106 104 84 98 Medications Medications Current Medications Ondansetron HCl (Zofran Inj) 4 mg Q6H PRN IV NAUSEA AND/OR VOMITING; Start at 03:00 Metoclopramide HCl (Reglan) 10 mg Q6H PRN IV NAUSEA AND/OR VOMITING; Start at 03:00 Acetaminophen (Tylenol Tab) 650 mg Q6H PRN PO PAIN LEVEL 1-3 OR FEVER Last administered on 08/26/16 16:27; Admin Dose 650 MG; Start 08/01/16 at 03:00 Acetaminophen (Tylenol Supp) 650 mg Q4H PRN [place] PAIN LEVEL 1-3 OR FEVER; Start 08/01/16 at 06:30 Miscellaneous Information 1 ea NOTE XX ; Start 08/02/16 at 09:00 Glucose (Glutose) 15 gm Q15M PRN PO DECREASED GLUCOSE; Start 08/02/16 at 09:00 Glucose (Glutose) 22.5 gm Q15M PRN PO DECREASED GLUCOSE; Start 08/02/16 at 09:00 Dextrose (D50w Syringe) 25 ml Q15M PRN IV DECREASED GLUCOSE Last administered on 08/16/16 06:30; Admin Dose 25 ML; Start 08/02/16 at 09:00 Dextrose (D50w Syringe) 50 ml Q15M PRN IV DECREASED GLUCOSE; Start 08/02/16 at 09:00 Glucagon (Glucagen) 1 mg Q15M PRN IM DECREASED GLUCOSE; Start 08/02/16 at 09:00 Glucose (Glutose) 15 gm Q15M PRN BUCCAL DECREASED GLUCOSE; Start 08/02/16 at 09: 00 Calcium Carbonate (Ca Carbonate) 1,250 mg Q12 NGT Last administered on 09:06; Admin Dose 1,250 MG; Start 08/11/16 at 09:00 IV Flush (NS 10 ml) 10 ml PRN PRN IV FLUSH LINE; Start 08/11/16 at 20:00 Pantoprazole (Protonix Tab) 40 mg DAILY@06 PO Last administered on 09/10/16 05 :41; Admin Dose 40 MG; Start 08/18/16 at 06:00 Doxazosin Mesylate (Cardura) 4 mg HS PO Last administered on 09/09/16 21:40; Admin Dose 4 MG; Start 08/19/16 at 21:00 Lorazepam (Ativan) 0.5 mg Q8H PRN PO ANXIETY; Start 08/19/16 at 14:00 Losartan Potassium (Cozaar) 50 mg DAILY PO Last administered on 09/10/16 10:06 ; Admin Dose 50 MG; Start 08/20/16 at 09:00 Amlodipine Besylate (Norvasc) 5 mg BID PO Last administered on 09/10/16 09:05 ; Admin Dose 5 MG; Start 08/23/16 at 21:00 Furosemide (Lasix) 40 mg BID PO Last administered on 09/10/16 09:06; Admin Dose 40 MG; Start 08/25/16 at 09:00 Polyethylene Glycol (Miralax) 17 gm BID PO Last administered on 09/09/16 21:39 ; Admin Dose 17 GM; Start 08/26/16 at 09:00 Bisacodyl (Dulcolax) 10 mg DAILY PRN PO CONSTIPATION Last administered on 16:27; Admin Dose 10 MG; Start 08/26/16 at 08:00 Enoxaparin Sodium (Lovenox) 40 mg DAILY SC Last administered on 09/10/16 09:11 ; Admin Dose 40 MG; Start 08/31/16 at 09:00 Levothyroxine Sodium (Synthroid) 200 mcg DAILY@06 PO Last administered on 05:41; Admin Dose 200 MCG; Start 09/09/16 at 06:00 Liothyronine Sodium (Cytomel) 5 mcg DAILY PO Last administered on 09/10/16 09: 06; Admin Dose 5 MCG; Start 09/08/16 at 09:00 GABRIELA GONZALEZ MD Sep 10, 2016 13:34
[2016-09-10 14:48] VITALS: BP 136/72; PULSE 91; RESP 18
[2016-09-10 20:35] VITALS: BP 105/57; RESP 20
[2016-09-10] MEDS: DOXAZOSIN 4 MG TAB PO SCH (21:00)
[2016-09-11 02:41] VITALS: BP 119/72; RESP 18
[2016-09-11] MEDS: PANTOPRAZOLE (EC) 40 MG TAB PO SCH (05:24)
[2016-09-11] MEDS: LEVOTHYROXINE 100 MCG TAB PO SCH (05:24)
[2016-09-11] MEDS: ALBUTEROL/IPRATROPIUM (NEB) 3 ML AMP HHN SCH ×3 (07:17→20:05)
[2016-09-11] MEDS: INSULIN ASPART [NOVOLOG] 3 ML PEN SC SCH ×4 (07:55→20:16)
[2016-09-11 08:03] VITALS: BP 133/74; RESP 18
[2016-09-11] MEDS: CA CARBONATE (250 MG/ML) 5ML CUP NGT SCH ×2 (08:41→20:13)
[2016-09-11] MEDS: FUROSEMIDE 40 MG TAB PO SCH ×2 (08:41→20:20)
[2016-09-11] MEDS: LIOTHYRONINE 5 MCG TAB PO SCH (08:42)
[2016-09-11] MEDS: AMLODIPINE 5 MG TAB PO SCH ×2 (08:42→20:13)
[2016-09-11] MEDS: LOSARTAN 50 MG TAB PO SCH (08:42)
[2016-09-11] MEDS: POLYETHYLENE GLYCOL 17 GM PACKET PO SCH ×2 (08:43→20:05)
[2016-09-11] MEDS: ENOXAPARIN 40 MG/0.4 ML SYG SC SCH (08:45)
--- NOTE | 2016-09-11 15:40 | PN ---
Date/Time of Note Date/Time of Note DATE: 09/11/16 TIME: 15:39 Assessment/Plan VTE Prophylaxis VTE Prophylaxis Intervention: SCD's Lines/Catheters IV C[facility]ter Type (from [facility]): Saline Lock Urinary Cath still in place: No Assessment/Plan Assessment/Plan 60 M admitted in PEA arrest 2/2 severe metabolic acidosis with ROSC following CPR. Etiology of metabolic acidosis possibly from septic shock/lactic acidosis? from aspiration pna? Metabolic acidosis resolved following temporary HD. 1. Status post PEA cardiac arrest secondary to severe metabolic acidosis. The patient is being followed by Cardiology. As per Cardiology, there is no cardiac etiology to suggest the cardiac arrest. - monitor 2. Acute on chronic diastolic heart failure. Improving with diuresis. 3. Acute kidney injury that required temporary hemodialysis. sp HD 4. Essential hypertension. Continue antihypertensives. 5. Acute encephalopathy secondary to #1, RESOLVED 6. Acute respiratory failure with ARDS and pulmonary edema, status post mechanical ventilation, SP EXTUBATION 7. Status post sepsis, probably secondary to underlying aspiration pneumonia. RESOLVED 8. Hypothyroidism, severe. Continue Synthroid. 9. Debility. Physical therapy is recommending [facility] facility versus acute rehabilitation unit for further rehabilitation. 10. Normocytic normochromic anemia. Continue to monitor H and H closely. 11. Elevated BGs. Hemoglobin A1c 5.0. Continue sliding scale insulin. 12. Occlusive thrombosis of the left cephalic vein - off anticoagulation for DVT tx - monitor, warm compresses prn 13. Fluid, electrolytes, and nutrition. regular diet 14. DVT prophylaxis. Subcutaneous Lovenox. Plan. Await placement - f/u with CM -they are actively looking for placement; continue current management. Subjective 24 Hr Interval Summary Free Text/Dictation Pt feeling well. Anxious to finally leave the hospital. Exam/Review of Systems Vital Signs Vitals Vital Signs Date Time Temp Pulse Resp B/P Pulse Ox O2 Delivery O2 Flow Rate FiO2 09/11/16 13:20 80 21 93 21 09/11/16 08:03 98.3 133/74 09/10/16 14:48 Room Air 09/10/16 14:20 1.0 Intake and Output 09/10/16 09/10/16 09/11/16 15:00 23:00 07:00 Intake Total 1560 ml 940 ml Output Total 800 ml 1150 ml 1140 ml Balance -800 ml 410 ml -200 ml Exam nad, laying in bed no mrg lungs clear abd soft no rashes Results Result Diagram: 09/08/1627 09/08/16526 Results 24 hrs Laboratory Tests Test 09/10/16 17:26 09/10/16 21:12 09/11/16 07:54 09/11/16 11:59 Bedside Glucose 97 110 92 109 Medications Medications Current Medications Ondansetron HCl (Zofran Inj) 4 mg Q6H PRN IV NAUSEA AND/OR VOMITING; Start at 03:00 Metoclopramide HCl (Reglan) 10 mg Q6H PRN IV NAUSEA AND/OR VOMITING; Start at 03:00 Acetaminophen (Tylenol Tab) 650 mg Q6H PRN PO PAIN LEVEL 1-3 OR FEVER Last administered on 08/26/16 16:27; Admin Dose 650 MG; Start 08/01/16 at 03:00 Acetaminophen (Tylenol Supp) 650 mg Q4H PRN [place] PAIN LEVEL 1-3 OR FEVER; Start 08/01/16 at 06:30 Miscellaneous Information 1 ea NOTE XX ; Start 08/02/16 at 09:00 Glucose (Glutose) 15 gm Q15M PRN PO DECREASED GLUCOSE; Start 08/02/16 at 09:00 Glucose (Glutose) 22.5 gm Q15M PRN PO DECREASED GLUCOSE; Start 08/02/16 at 09:00 Dextrose (D50w Syringe) 25 ml Q15M PRN IV DECREASED GLUCOSE Last administered on 08/16/16 06:30; Admin Dose 25 ML; Start 08/02/16 at 09:00 Dextrose (D50w Syringe) 50 ml Q15M PRN IV DECREASED GLUCOSE; Start 08/02/16 at 09:00 Glucagon (Glucagen) 1 mg Q15M PRN IM DECREASED GLUCOSE; Start 08/02/16 at 09:00 Glucose (Glutose) 15 gm Q15M PRN BUCCAL DECREASED GLUCOSE; Start 08/02/16 at 09: 00 Calcium Carbonate (Ca Carbonate) 1,250 mg Q12 NGT Last administered on 08:41; Admin Dose 1,250 MG; Start 08/11/16 at 09:00 IV Flush (NS 10 ml) 10 ml PRN PRN IV FLUSH LINE; Start 08/11/16 at 20:00 Pantoprazole (Protonix Tab) 40 mg DAILY@06 PO Last administered on 09/11/16 05 :24; Admin Dose 40 MG; Start 08/18/16 at 06:00 Doxazosin Mesylate (Cardura) 4 mg HS PO Last administered on 09/09/16 21:40; Admin Dose 4 MG; Start 08/19/16 at 21:00 Lorazepam (Ativan) 0.5 mg Q8H PRN PO ANXIETY; Start 08/19/16 at 14:00 Losartan Potassium (Cozaar) 50 mg DAILY PO Last administered on 09/11/16 08:42 ; Admin Dose 50 MG; Start 08/20/16 at 09:00 Amlodipine Besylate (Norvasc) 5 mg BID PO Last administered on 09/11/16 08:42 ; Admin Dose 5 MG; Start 08/23/16 at 21:00 Furosemide (Lasix) 40 mg BID PO Last administered on 09/11/16 08:41; Admin Dose 40 MG; Start 08/25/16 at 09:00 Polyethylene Glycol (Miralax) 17 gm BID PO Last administered on 09/10/16 21:09 ; Admin Dose 17 GM; Start 08/26/16 at 09:00 Bisacodyl (Dulcolax) 10 mg DAILY PRN PO CONSTIPATION Last administered on 16:27; Admin Dose 10 MG; Start 08/26/16 at 08:00 Enoxaparin Sodium (Lovenox) 40 mg DAILY SC Last administered on 09/11/16 08:45 ; Admin Dose 40 MG; Start 08/31/16 at 09:00 Levothyroxine Sodium (Synthroid) 200 mcg DAILY@06 PO Last administered on 05:24; Admin Dose 200 MCG; Start 09/09/16 at 06:00 Liothyronine Sodium (Cytomel) 5 mcg DAILY PO Last administered on 09/11/16 08: 42; Admin Dose 5 MCG; Start 09/08/16 at 09:00 GABRIELA GONZALEZ MD Sep 11, 2016 15:40
[2016-09-11 19:36] VITALS: BP 129/79; RESP 18
[2016-09-11] MEDS: DOXAZOSIN 4 MG TAB PO SCH (20:14)
[2016-09-12] MEDS: PANTOPRAZOLE (EC) 40 MG TAB PO SCH (05:28)
[2016-09-12] MEDS: LEVOTHYROXINE 100 MCG TAB PO SCH (05:28)
[2016-09-12 07:41] VITALS: BP 130/73; RESP 18
[2016-09-12] MEDS: INSULIN ASPART [NOVOLOG] 3 ML PEN SC SCH ×4 (08:06→21:00)
[2016-09-12] MEDS: LIOTHYRONINE 5 MCG TAB PO SCH (08:41)
[2016-09-12] MEDS: CA CARBONATE (250 MG/ML) 5ML CUP NGT SCH ×2 (08:42→21:52)
[2016-09-12] MEDS: FUROSEMIDE 40 MG TAB PO SCH ×2 (08:42→21:52)
[2016-09-12] MEDS: LOSARTAN 50 MG TAB PO SCH (08:42)
[2016-09-12] MEDS: POLYETHYLENE GLYCOL 17 GM PACKET PO SCH ×2 (08:42→21:00)
[2016-09-12] MEDS: AMLODIPINE 5 MG TAB PO SCH ×2 (08:42→21:00)
[2016-09-12] MEDS: ENOXAPARIN 40 MG/0.4 ML SYG SC SCH (09:19)
[2016-09-12] MEDS: ALBUTEROL/IPRATROPIUM (NEB) 3 ML AMP HHN SCH ×3 (09:22→19:09)
--- NOTE | 2016-09-12 13:32 | PN ---
Date/Time of Note Date/Time of Note DATE: 09/12/16 TIME: 13:30 Assessment/Plan VTE Prophylaxis VTE Prophylaxis Intervention: SCD's Lines/Catheters IV [facility]ter [facility]from [facility] [place] [facility] Urinary Cath still in place: No Assessment/Plan Assessment/Plan 60 M admitted in PEA arrest 2/2 severe metabolic acidosis with ROSC following CPR. Etiology of metabolic acidosis possibly from septic shock/lactic acidosis? from aspiration pna? Metabolic acidosis resolved following temporary HD. 1. Status post PEA cardiac arrest secondary to severe metabolic acidosis. The patient is being followed by Cardiology. As per Cardiology, there is no cardiac etiology to suggest the cardiac arrest. - monitor 2. Acute on chronic diastolic heart failure. Improving with diuresis. 3. Acute kidney injury that required temporary hemodialysis. sp HD 4. Essential hypertension. Continue antihypertensives. 5. Acute encephalopathy secondary to #1, RESOLVED 6. Acute respiratory failure with ARDS and pulmonary edema, status post mechanical ventilation, SP EXTUBATION 7. Status post sepsis, probably secondary to underlying aspiration pneumonia. RESOLVED 8. Hypothyroidism, severe. Continue Synthroid. 9. Debility. Physical therapy is recommending nursing home facility versus acute rehabilitation unit for further rehabilitation. 10. Normocytic normochromic anemia. Continue to monitor H and H closely. 11. Elevated BGs. Hemoglobin A1c 5.0. Continue sliding scale insulin. 12. Occlusive thrombosis of the left cephalic vein - off anticoagulation for DVT tx - monitor, warm compresses prn 13. Fluid, electrolytes, and nutrition. regular diet 14. DVT prophylaxis. Subcutaneous Lovenox. Plan. Await placement - f/u with CM -they are actively looking for placement; continue current management. Subjective 24 Hr Interval Summary Free Text/Dictation receiving a bed bath at time of my attempted evaluation Exam/Review of Systems Vital Signs Vitals Vital Signs Date Time Temp Pulse Resp B/P Pulse Ox O2 Delivery O2 Flow Rate FiO2 09/12/16 09:23 106 20 96 21 09/12/16 07:41 98.8 130/73 09/10/16 14:48 Room Air 09/10/16 14:20 1.0 Intake and Output 09/11/16 09/11/16 09/12/16 15:00 23:00 07:00 Intake Total 1060 ml 600 ml Output Total 400 ml 300 ml Balance 660 ml 300 ml Exam nad resp nonlabored no rashes no le edema appropriately interactive with care team Results Result Diagram: 09/08/16 0527 09/08/16 0527 Results 24 hrs Laboratory Tests Test 09/11/16 17:21 09/11/16 20:15 09/12/16 07:50 09/12/16 11:45 Bedside Glucose 112 111 90 128 Medications Medications Current Medications Ondansetron HCl (Zofran Inj) 4 mg Q6H PRN IV NAUSEA AND/OR VOMITING; Start at 03:00 Metoclopramide HCl (Reglan) 10 mg Q6H PRN IV NAUSEA AND/OR VOMITING; Start at 03:00 Acetaminophen (Tylenol Tab) 650 mg Q6H PRN PO PAIN LEVEL 1-3 OR FEVER Last administered on 08/26/16 16:27; Admin Dose 650 MG; Start 08/01/16 at 03:00 Acetaminophen (Tylenol Supp) 650 mg Q4H PRN [place] PAIN LEVEL 1-3 OR FEVER; Start 08/01/16 at 06:30 Miscellaneous Information 1 ea NOTE XX ; Start 08/02/16 at 09:00 Glucose (Glutose) 15 gm Q15M PRN PO DECREASED GLUCOSE; Start 08/02/16 at 09:00 Glucose (Glutose) 22.5 gm Q15M PRN PO DECREASED GLUCOSE; Start 08/02/16 at 09:00 Dextrose (D50w Syringe) 25 ml Q15M PRN IV DECREASED GLUCOSE Last administered on 08/16/16 06:30; Admin Dose 25 ML; Start 08/02/16 at 09:00 Dextrose (D50w Syringe) 50 ml Q15M PRN IV DECREASED GLUCOSE; Start 08/02/16 at 09:00 Glucagon (Glucagen) 1 mg Q15M PRN IM DECREASED GLUCOSE; Start 08/02/16 at 09:00 Glucose (Glutose) 15 gm Q15M PRN BUCCAL DECREASED GLUCOSE; Start 08/02/16 at 09: 00 Calcium Carbonate (Ca Carbonate) 1,250 mg Q12 NGT Last administered on 08:42; Admin Dose 1,250 MG; Start 08/11/16 at 09:00 IV Flush (NS 10 ml) 10 ml PRN PRN IV FLUSH LINE; Start 08/11/16 at 20:00 Pantoprazole (Protonix Tab) 40 mg DAILY@06 PO Last administered on 09/12/16 05 :28; Admin Dose 40 MG; Start 08/18/16 at 06:00 Doxazosin Mesylate (Cardura) 4 mg HS PO Last administered on 09/11/16 20:14; Admin Dose 4 MG; Start 08/19/16 at 21:00 Lorazepam (Ativan) 0.5 mg Q8H PRN PO ANXIETY; Start 08/19/16 at 14:00 Losartan Potassium (Cozaar) 50 mg DAILY PO Last administered on 09/12/16 08:42 ; Admin Dose 50 MG; Start 08/20/16 at 09:00 Amlodipine Besylate (Norvasc) 5 mg BID PO Last administered on 09/12/16 08:42 ; Admin Dose 5 MG; Start 08/23/16 at 21:00 Furosemide (Lasix) 40 mg BID PO Last administered on 09/12/16 08:42; Admin Dose 40 MG; Start 08/25/16 at 09:00 Polyethylene Glycol (Miralax) 17 gm BID PO Last administered on 09/12/16 08:42 ; Admin Dose 17 GM; Start 08/26/16 at 09:00 Bisacodyl (Dulcolax) 10 mg DAILY PRN PO CONSTIPATION Last administered on 16:27; Admin Dose 10 MG; Start 08/26/16 at 08:00 Enoxaparin Sodium (Lovenox) 40 mg DAILY SC Last administered on 09/12/16 09:19 ; Admin Dose 40 MG; Start 08/31/16 at 09:00 Levothyroxine Sodium (Synthroid) 200 mcg DAILY@06 PO Last administered on 05:28; Admin Dose 200 MCG; Start 09/09/16 at 06:00 Liothyronine Sodium (Cytomel) 5 mcg DAILY PO Last administered on 09/12/16 08: 41; Admin Dose 5 MCG; Start 09/08/16 at 09:00 GABRIELA GONZALEZ MD Sep 12, 2016 13:31
[2016-09-12 20:16] VITALS: BP 135/67; PULSE 137; RESP 18
[2016-09-12] MEDS: ACETAMINOPHEN 325 MG TAB PO PRN (20:26)
[2016-09-12] MEDS ORDERED: SOD CHLORIDE 0.9% 500 ML IV ONE (20:30)
[2016-09-12 20:39] LABS: ADD SCAN DIFF NO
[2016-09-12 20:40] LABS: ABNORMAL IP MESSAGE 1; HEMATOCRIT 27.5 % (42.0-52.0); HEMOGLOBIN 8.6 g/dl (14.0-18.0); MEAN CORPUSCULAR HEMOGLOBIN 30.5 pg (29.0-33.0); MEAN CORPUSCULAR HGB CONC 31.3 g/dl (32.0-37.0); MEAN CORPUSCULAR VOLUME 97.5 fl (82.0-101.0); PLATELET COUNT 460 10^3/UL (140-415); RED BLOOD COUNT 2.82 10^6/ul (4.70-6.10); RED CELL DISTRIBUTION WIDTH 15.3 % (11.5-14.5); WHITE BLOOD COUNT 17.1 10^3/ul (4.8-10.8)
[2016-09-12 20:59] LABS: CALCIUM 10.7 mg/dl (8.4-10.2); CREATININE 1.23 mg/dl (0.61-1.24); POTASSIUM 3.9 mmol/L (3.5-5.1)
[2016-09-12] MEDS: DOXAZOSIN 4 MG TAB PO SCH (21:00)
[2016-09-12 21:06] LABS: BASOPHIL # 0.2 10^3/ul (0.0-0.1); EOSINOPHILS # 0.2 10^3/ul (0.0-0.5); LYMPHOCYTES # 0.5 10^3/ul (0.8-2.9); NEUTROPHIL # 15.6 10^3/ul (1.6-7.5); PLATELET ESTIMATE PLT APPEAR INCREASED
[2016-09-12 21:49] VITALS: BP 114/59; PULSE 136; RESP 20
--- NOTE | 2016-09-12 22:02 | RADRPT ---
PROCEDURE: Chest. CLINICAL INDICATION: Fever. TECHNIQUE: Single frontal view of the chest was obtained. COMPARISON: 08/28/2016. FINDINGS: The cardiac silhouette is magnified. The aortic arch is calcified. There are increased interstitia l markings bilaterally. There is no focal consolidation or pleural effusion. There is no pneumotho rax. IMPRESSION: Bilateral increased interstitial markings could represent interstitial edema or chronic lung changes , decreased compared with the prior study. Aortic atherosclerosis. .Mikel Weiner MD, Date Time Electronically viewed and signed by .Mikel Weiner MD, on 09/12/2016 22:02 .T/
[2016-09-12 22:35] VITALS: BP 113/65; PULSE 126
[2016-09-13] VITALS: BP 102/60; PULSE 114; RESP 20
[2016-09-13 00:10] LABS: ADD UMIC YES; UR AMORPHOUS CRYSTAL FEW /HPF (NONE SEEN); UR ASCORBIC ACID NEGATIVE (NEGATIVE); UR BACTERIA MODERATE /HPF (NONE SEEN); UR BILIRUBIN (Dip) NEGATIVE (NEGATIVE); UR BLOOD (Dip) 3+ mg/dL (NEGATIVE); UR CLARITY SLIGHTLY CLOUDY (CLEAR); UR COLOR YELLOW (YELLOW); UR GLUCOSE (Dip) NEGATIVE (NEGATIVE); UR KETONES (Dip) NEGATIVE (NEGATIVE); UR LEUKOCYTE ESTERASE (Dip) 3+ Leu/ul (NEGATIVE); UR NITRITE (Dip) POSITIVE (NEGATIVE); UR RBC 19 /HPF (0-5); UR SPECIFIC GRAVITY (Dip) 1.015 (1.003-1.030); UR TOTAL PROTEIN (Dip) 1+ mg/dl (NEGATIVE); UR UROBILINOGEN (Dip) NEGATIVE (NEGATIVE)
[2016-09-13] MEDS ORDERED: SOD CHLORIDE 0.9% 500 ML IV ONE (01:00)
[2016-09-13] MEDS: CEFTRIAXONE 1 GM/50 ML (PMX) 50 ML IVPB SCH (01:21)
[2016-09-13 02:59] VITALS: BP 113/62; RESP 18
[2016-09-13] MEDS: LEVOTHYROXINE 100 MCG TAB PO SCH (05:44)
[2016-09-13] MEDS: PANTOPRAZOLE (EC) 40 MG TAB PO SCH (05:44)
[2016-09-13 08:02] VITALS: BP 121/68; RESP 18
[2016-09-13] MEDS: INSULIN ASPART [NOVOLOG] 3 ML PEN SC SCH ×4 (08:15→21:00)
[2016-09-13] MEDS: ALBUTEROL/IPRATROPIUM (NEB) 3 ML AMP HHN SCH ×3 (08:17→20:39)
[2016-09-13] MEDS: ENOXAPARIN 40 MG/0.4 ML SYG SC SCH (08:31)
[2016-09-13] MEDS: LIOTHYRONINE 5 MCG TAB PO SCH (08:32)
[2016-09-13] MEDS: CA CARBONATE (250 MG/ML) 5ML CUP NGT SCH ×2 (08:33→21:14)
[2016-09-13] MEDS: AMLODIPINE 5 MG TAB PO SCH ×2 (08:33→21:15)
[2016-09-13] MEDS: LOSARTAN 50 MG TAB PO SCH (08:33)
[2016-09-13] MEDS: FUROSEMIDE 40 MG TAB PO SCH ×2 (08:33→21:15)
[2016-09-13] MEDS: POLYETHYLENE GLYCOL 17 GM PACKET PO SCH ×2 (09:00→21:00)
--- NOTE | 2016-09-13 11:03 | PN ---
Date/Time of Note Date/Time of Note DATE: 09/13/16 TIME: 11:01 Assessment/Plan VTE Prophylaxis VTE Prophylaxis Intervention: SCD's Lines/Catheters IV Catheter Type (from [facility]rs): Peripheral IV Urinary Cath still in place: No Assessment/Plan Assessment/Plan 60 M admitted in PEA arrest 2/2 severe metabolic acidosis with ROSC following CPR. Etiology of metabolic acidosis possibly from septic shock/lactic acidosis? from aspiration pna? Metabolic acidosis resolved following temporary HD. had fever overnight 7.12, suspect 2/2 UTI given UA with pyuria and + LE. 0. fever, likely UTI: cont empiric ceftriaxone pending further culture data. anticipate 7 days of abx 1. sp PEA cardiac arrest 2/2 severe metabolic acidosis. The patient is being followed by Cardiology. As per Cardiology, there is no cardiac etiology to suggest the cardiac arrest. - monitor 2. Acute on chronic diastolic heart failure. Improved with diuresis. 3. Acute kidney injury that required temporary hemodialysis. sp HD 4. Essential hypertension. Continue antihypertensives. 5. Acute encephalopathy secondary to #1, RESOLVED 6. Acute respiratory failure with ARDS and pulmonary edema, status post mechanical ventilation, SP EXTUBATION 7. Status post sepsis, probably secondary to underlying aspiration pneumonia. RESOLVED 8. Hypothyroidism, severe. Continue Synthroid. 9. Debility. Physical therapy is recommending [facility] facility versus acute rehabilitation unit for further rehabilitation. 10. Normocytic normochromic anemia. monitor 11. Elevated BGs. Hemoglobin A1c 5.0. Continue sliding scale insulin. 12. Occlusive thrombosis of the left cephalic vein - off anticoagulation for DVT tx - monitor, warm compresses prn regular diet DVT prophylaxis. Subcutaneous Lovenox. Plan. Await placement - f/u with CM -they are actively looking for placement; continue current management. Disability paperwork also completed Subjective 24 Hr Interval Summary Free Text/Dictation Pt with fever overnight. Sleeping this AM Exam/Review of Systems Vital Signs Vitals Vital Signs Date Time Temp Pulse Resp B/P Pulse Ox O2 Delivery O2 Flow Rate FiO2 09/13/16 08:18 104 20 97 21 09/13/16 08:02 98.7 121/68 09/13/16 00:00 Nasal Cannula 3.0 Intake and Output 09/12/16 09/12/16 09/13/16 15:00 23:00 07:00 Intake Total 2020 ml 1050 ml Output Total 750 ml 600 ml Balance 1270 ml 450 ml Exam NAD, laying in bed no mrg lungs clear abd soft no rashes UA from overnight noted Results Result Diagram: 09/12/16201909/12/162019 Results 24 hrs Laboratory Tests Test 09/12/16 11:45 09/12/16 17:11 09/12/16 20:20 09/12/16 22:33 Bedside Glucose 128 98 119 White Blood Count 17.1 #H Red Blood Count 2.82 L Hemoglobin 8.6 L Hematocrit 27.5 L Mean Corpuscular Volume 97.5 Mean Corpuscular Hemoglobin 30.5 Mean Corpuscular Hemoglobin Concent 31.3 L Red Cell Distribution Width 15.3 H Platelet Count 460 H Mean Platelet Volume 10.0 Neutrophils % 91.0 H Band Neutrophils % 4.0 Lymphocytes % 3.0 L Eosinophils % 1.0 Basophils % 1.0 Neutrophils # 15.6 H Lymphocytes # 0.5 L Eosinophils # 0.2 Basophils # 0.2 H Platelet Estimate PLT APPEAR INCREASED Sodium Level 134 L Potassium Level 3.9 Chloride Level 104 Carbon Dioxide Level 22 Anion Gap 12 Blood Urea Nitrogen 38 H Creatinine 1.23 Glucose Level 107 Lactic Acid Level 1.7 Calcium Level 10.7 H Test 09/12/16 22:40 09/13/16 07:51 Urine Color YELLOW Urine Clarity SLIGHTLY CLOUDY A Urine pH 8.0 Urine Specific [place] 1.015 Urine Ketones NEGATIVE Urine Nitrite POSITIVE A Urine Bilirubin NEGATIVE Urine Urobilinogen NEGATIVE Urine Leukocyte Esterase 3+ H Urine Microscopic RBC 19 H Urine Microscopic WBC 116 H Urine Amorphous Crystals FEW A Urine Bacteria MODERATE Urine Hemoglobin 3+ H Urine Glucose NEGATIVE Urine Total Protein 1+ H Bedside Glucose 86 Medications Medications Current Medications Ondansetron HCl (Zofran Inj) 4 mg Q6H PRN IV NAUSEA AND/OR VOMITING; Start at 03:00 Metoclopramide HCl (Reglan) 10 mg Q6H PRN IV NAUSEA AND/OR VOMITING; Start at 03:00 Acetaminophen (Tylenol Tab) 650 mg Q6H PRN PO PAIN LEVEL 1-3 OR FEVER Last administered on 09/12/16t 20:26; Admin Dose 650 MG; Start 08/01/16 at 03:00 Acetaminophen (Tylenol Supp) 650 mg Q4H PRN [place] PAIN LEVEL 1-3 OR FEVER; Start 08/01/16 at 06:30 Miscellaneous Information 1 ea NOTE XX ; Start 08/02/16 at 09:00 Glucose (Glutose) 15 gm Q15M PRN PO DECREASED GLUCOSE; Start 08/02/16 at 09:00 Glucose (Glutose) 22.5 gm Q15M PRN PO DECREASED GLUCOSE; Start 08/02/16 at 09:00 Dextrose (D50w Syringe) 25 ml Q15M PRN IV DECREASED GLUCOSE Last administered on 08/16/16 06:30; Admin Dose 25 ML; Start 08/02/16 at 09:00 Dextrose (D50w Syringe) 50 ml Q15M PRN IV DECREASED GLUCOSE; Start 08/02/16 at 09:00 Glucagon (Glucagen) 1 mg Q15M PRN IM DECREASED GLUCOSE; Start 08/02/16 at 09:00 Glucose (Glutose) 15 gm Q15M PRN BUCCAL DECREASED GLUCOSE; Start 08/02/16 at 09: 00 Calcium Carbonate (Ca Carbonate) 1,250 mg Q12 NGT Last administered on 08:33; Admin Dose 1,250 MG; Start 08/11/16 at 09:00 IV Flush (NS 10 ml) 10 ml PRN PRN IV FLUSH LINE; Start 08/11/16 at 20:00 Pantoprazole (Protonix Tab) 40 mg DAILY@06 PO Last administered on 09/13/16 05 :44; Admin Dose 40 MG; Start 08/18/16 at 06:00 Doxazosin Mesylate (Cardura) 4 mg HS PO Last administered on 09/11/16 20:14; Admin Dose 4 MG; Start 08/19/16 at 21:00 Lorazepam (Ativan) 0.5 mg Q8H PRN PO ANXIETY; Start 08/19/16 at 14:00 Losartan Potassium (Cozaar) 50 mg DAILY PO Last administered on 09/13/16 08:33 ; Admin Dose 50 MG; Start 08/20/16 at 09:00 Amlodipine Besylate (Norvasc) 5 mg BID PO Last administered on 09/13/16 08:33 ; Admin Dose 5 MG; Start 08/23/16 at 21:00 Furosemide (Lasix) 40 mg BID PO Last administered on 09/13/16 08:33; Admin Dose 40 MG; Start 08/25/16 at 09:00 Polyethylene Glycol (Miralax) 17 gm BID PO Last administered on 09/12/16 08:42 ; Admin Dose 17 GM; Start 08/26/16 at 09:00 Bisacodyl (Dulcolax) 10 mg DAILY PRN PO CONSTIPATION Last administered on 16:27; Admin Dose 10 MG; Start 08/26/16 at 08:00 Enoxaparin Sodium (Lovenox) 40 mg DAILY SC Last administered on 09/13/16 08:31 ; Admin Dose 40 MG; Start 08/31/16 at 09:00 Levothyroxine Sodium (Synthroid) 200 mcg DAILY@06 PO Last administered on 05:44; Admin Dose 200 MCG; Start 09/09/16 at 06:00 Liothyronine Sodium 5 mcg 5 mcg DAILY PO Last administered on 09/13/16 08:32; Admin Dose 5 MCG; Start 09/08/16 at 09:00 Ceftriaxone Sodium (Rocephin) 50 ml @ 100 mls/hr Q24H IVPB Last administered on 09/13/16 01:21; Admin Dose 100 MLS/HR; Start 09/13/16 at 01:00 GABRIELA GONZALEZ MD Sep 13, 2016 11:02
[2016-09-13] MEDS: ACETAMINOPHEN 325 MG TAB PO PRN ×2 (11:28→22:22)
--- NOTE | 2016-09-13 12:56 | PN ---
PROGRESS NOTE DATE: 09/07/2016 SUBJECTIVE DATA: The patient is stable. No events at night. No fevers, chills, nausea, or vomiting. OBJECTIVE DATA: VITAL SIGNS: Blood pressure 122/77, respirations 20, pulse 97, temperature 97.9. HEENT: Head is normocephalic. Pupils are reactive to light. NECK: Supple. HEART: Regular rate. LUNGS: Diminished breath sounds at the base. ABDOMEN: Soft, nontender to palpation, no guarding. EXTREMITIES: No clubbing or cyanosis, no edema. DERMATOLOGIC: No rashes. MUSCULOSKELETAL: No joint effusion. NEUROLOGIC: No change in exam. MEDICATIONS: Patient's medications were reviewed. LABORATORY DATA: Laboratory data is reviewed. ASSESSMENT AND PLAN: 1. Nonoliguric acute kidney injury with unknown baseline creatinine, etiology secondary to acute tubular necrosis. Patient is status post hemodialysis. Currently off dialysis. Renal function has been stable. Continue supportive care and , avoid nephrotoxins. 2. Acute congestive heart failure exacerbation. Patient clinically improving. Continue current medical management. 3. Mineral bone disorder. Continue to monitor calcium and phosphorus levels. 4. Anemia. Continue to monitor H and H levels. 5. Sepsis status post shock. Patient completed antibiotic course. 6. Hypothyroidism. Treat with Synthroid. 7. Diabetes. Continue Accu-Chek and sliding scale. 8. History of cardiopulmonary arrest and cyanosis with status post respiratory failure. Dictated By: Carl Baxter DO /destin/silverio /Document#: [id number] Conf#:[id number] DID#: [id number]
[2016-09-13 14:08] VITALS: BP 119/72; RESP 20
[2016-09-13 19:53] VITALS: BP 127/68; RESP 18
[2016-09-13] MEDS: DOXAZOSIN 4 MG TAB PO SCH (21:14)
[2016-09-14] MEDS: CEFTRIAXONE 1 GM/50 ML (PMX) 50 ML IVPB SCH (00:15)
[2016-09-14 02:00] VITALS: BP 117/65; RESP 18
[2016-09-14] MEDS: LEVOTHYROXINE 100 MCG TAB PO SCH (06:05)
[2016-09-14] MEDS: PANTOPRAZOLE (EC) 40 MG TAB PO SCH (06:05)
[2016-09-14 07:51] VITALS: BP 134/79; RESP 18
[2016-09-14] MEDS: INSULIN ASPART [NOVOLOG] 3 ML PEN SC SCH ×4 (08:15→20:25)
[2016-09-14] MEDS: ALBUTEROL/IPRATROPIUM (NEB) 3 ML AMP HHN SCH ×3 (08:29→19:33)
[2016-09-14] MEDS: POLYETHYLENE GLYCOL 17 GM PACKET PO SCH ×2 (09:00→20:25)
[2016-09-14] MEDS: LIOTHYRONINE 5 MCG TAB PO SCH (09:03)
[2016-09-14] MEDS: AMLODIPINE 5 MG TAB PO SCH ×2 (09:03→21:52)
[2016-09-14] MEDS: FUROSEMIDE 40 MG TAB PO SCH ×2 (09:04→20:18)
[2016-09-14] MEDS: CA CARBONATE (250 MG/ML) 5ML CUP NGT SCH ×2 (09:04→20:17)
[2016-09-14] MEDS: LOSARTAN 50 MG TAB PO SCH (09:04)
[2016-09-14] MEDS: ENOXAPARIN 40 MG/0.4 ML SYG SC SCH (09:20)
--- NOTE | 2016-09-14 13:37 | PN ---
Date/Time of Note Date/Time of Note DATE: 09/14/16 TIME: 13:35 Assessment/Plan VTE Prophylaxis VTE Prophylaxis Intervention: SCD's Lines/Catheters IV C[facility]ter Type (from [facility]): Peripheral IV Urinary Cath still in place: No Assessment/Plan Assessment/Plan 60 M admitted in PEA arrest 2/2 severe metabolic acidosis with ROSC following CPR. Etiology of metabolic acidosis possibly from septic shock/lactic acidosis? from aspiration pna? Metabolic acidosis resolved following temporary HD. had fever overnight 7.12, suspect 2/2 UTI with hematologic spread. 0. bacteremia: likely source. await blood/urine culture data. cont empiric ceftriaxone. plan on 14 total days of abx 1. sp PEA cardiac arrest 2/2 severe metabolic acidosis. The patient is being followed by Cardiology. As per Cardiology, there is no cardiac etiology to suggest the cardiac arrest. - monitor 2. Acute on chronic diastolic heart failure. Improved with diuresis. 3. Acute kidney injury that required temporary hemodialysis. sp HD 4. Essential hypertension. Continue antihypertensives. 5. Acute encephalopathy secondary to #1, RESOLVED 6. Acute respiratory failure with ARDS and pulmonary edema, status post mechanical ventilation, SP EXTUBATION 7. Status post sepsis, probably secondary to underlying aspiration pneumonia. RESOLVED 8. Hypothyroidism, severe. Continue Synthroid. 9. Debility. Physical therapy is recommending correction facility versus acute rehabilitation unit for further rehabilitation. 10. Normocytic normochromic anemia. monitor 11. Elevated BGs. Hemoglobin A1c 5.0. Continue sliding scale insulin. 12. Occlusive thrombosis of the left cephalic vein - off anticoagulation for DVT tx - monitor, warm compresses prn regular diet DVT prophylaxis. Subcutaneous Lovenox. Plan. Await placement - f/u with [facility] -they are actively looking for placement; continue current management. Disability paperwork also completed Subjective 24 Hr Interval Summary Free Text/Dictation Bored, Would very much like to be discharged to SNF Exam/Review of Systems Vital Signs Vitals Vital Signs Date Time Temp Pulse Resp B/P Pulse Ox O2 Delivery O2 Flow Rate FiO2 09/14/16 08:30 104 18 93 21 09/14/16 07:51 98.3 134/79 09/13/16 12:48 1.0 09/13/16 00:00 Nasal Cannula Intake and Output 09/13/16 09/13/16 09/14/16 15:00 23:00 07:00 Intake Total 840 ml 460 ml Output Total 550 ml 620 ml Balance 290 ml -160 ml Exam nad laying flat no mrg lungs clear abd soft no rashes blood and urine cultures 09/12 still only read as GNRs Results Result Diagram: 09/12/16201909/12/162019 Results 24 hrs Laboratory Tests Test 09/13/16 17:09 09/13/16 21:13 09/14/16 05:26 09/14/16 08:08 Bedside Glucose 106 112 90 Thyroid Stimulating Hormone (TSH) 12.300 H Test 09/14/16 11:50 Bedside Glucose 99 Medications Medications Current Medications Ondansetron HCl (Zofran Inj) 4 mg Q6H PRN IV NAUSEA AND/OR VOMITING; Start at 03:00 Metoclopramide HCl (Reglan) 10 mg Q6H PRN IV NAUSEA AND/OR VOMITING; Start at 03:00 Acetaminophen (Tylenol Tab) 650 mg Q6H PRN PO PAIN LEVEL 1-3 OR FEVER Last administered on 09/13/16 22:22; Admin Dose 650 MG; Start 08/01/16 at 03:00 Acetaminophen (Tylenol Supp) 650 mg Q4H PRN [place] PAIN LEVEL 1-3 OR FEVER; Start 08/01/16 at 06:30 Miscellaneous Information 1 ea NOTE XX ; Start 08/02/16 at 09:00 Glucose (Glutose) 15 gm Q15M PRN PO DECREASED GLUCOSE; Start 08/02/16 at 09:00 Glucose (Glutose) 22.5 gm Q15M PRN PO DECREASED GLUCOSE; Start 08/02/16 at 09:00 Dextrose (D50w Syringe) 25 ml Q15M PRN IV DECREASED GLUCOSE Last administered on 08/16/16 06:30; Admin Dose 25 ML; Start 08/02/16 at 09:00 Dextrose (D50w Syringe) 50 ml Q15M PRN IV DECREASED GLUCOSE; Start 08/02/16 at 09:00 Glucagon (Glucagen) 1 mg Q15M PRN IM DECREASED GLUCOSE; Start 08/02/16 at 09:00 Glucose (Glutose) 15 gm Q15M PRN BUCCAL DECREASED GLUCOSE; Start 08/02/16 at 09: 00 Calcium Carbonate (Ca Carbonate) 1,250 mg Q12 NGT Last administered on 09:04; Admin Dose 1,250 MG; Start 08/11/16 at 09:00 IV Flush (NS 10 ml) 10 ml PRN PRN IV FLUSH LINE; Start 08/11/16 at 20:00 Pantoprazole (Protonix Tab) 40 mg DAILY@06 PO Last administered on 09/14/16 06 :05; Admin Dose 40 MG; Start 08/18/16 at 06:00 Doxazosin Mesylate (Cardura) 4 mg HS PO Last administered on 09/13/16 21:14; Admin Dose 4 MG; Start 08/19/16 at 21:00 Lorazepam (Ativan) 0.5 mg Q8H PRN PO ANXIETY; Start 08/19/16 at 14:00 Losartan Potassium (Cozaar) 50 mg DAILY PO Last administered on 09/14/16 09:04 ; Admin Dose 50 MG; Start 08/20/16 at 09:00 Amlodipine Besylate (Norvasc) 5 mg BID PO Last administered on 09/14/16 09:03 ; Admin Dose 5 MG; Start 08/23/16 at 21:00 Furosemide (Lasix) 40 mg BID PO Last administered on 09/14/16 09:04; Admin Dose 40 MG; Start 08/25/16 at 09:00 Polyethylene Glycol (Miralax) 17 gm BID PO Last administered on 09/12/16 08:42 ; Admin Dose 17 GM; Start 08/26/16 at 09:00 Bisacodyl (Dulcolax) 10 mg DAILY PRN PO CONSTIPATION Last administered on 16:27; Admin Dose 10 MG; Start 08/26/16 at 08:00 Enoxaparin Sodium (Lovenox) 40 mg DAILY SC Last administered on 09/14/16 09:20 ; Admin Dose 40 MG; Start 08/31/16 at 09:00 Levothyroxine Sodium (Synthroid) 200 mcg DAILY@06 PO Last administered on 06:05; Admin Dose 200 MCG; Start 09/09/16 at 06:00 Liothyronine Sodium 5 mcg 5 mcg DAILY PO Last administered on 09/14/16 09:03; Admin Dose 5 MCG; Start 09/08/16 at 09:00 Ceftriaxone Sodium (Rocephin) 50 ml @ 100 mls/hr Q24H IVPB Last administered on 09/14/16t 00:15; Admin Dose 100 MLS/HR; Start 09/13/16 at 01:00 GABRIELA GONZALEZ MD Sep 14, 2016 13:37
[2016-09-14 14:06] VITALS: BP 123/71; RESP 18
--- NOTE | 2016-09-14 14:58 | CONS ---
Date/Time of Note Date/Time of Note DATE: 09/14/16 TIME: 14:55 Assessment/Plan Assessment/Plan Chief Complaint/Hosp Course No acute changes, patient is alert, looks comfortable, denies pain discomfort no fevers WBC on September 12 17.1 platelets 460 neutrophils 91 bands 4 BUN 38 creatinine 1.23 Antimicrobials: Rocephin started yesterday Diagnostics: Chest x-ray on September 12 revealed increased interstitial markings. Microbiology: Blood and urine culture on September 12 growing gram-negative rods PHYSICAL EXAMINATION: GENERAL: Obese, well-developed middle-aged man in no distress. HEENT: Head atraumatic, normocephalic. Sclerae anicteric. Buccal mucosa dry. NECK: Supple, trachea midline. CHEST: Rise symmetrical. Breath sounds diminished to bases. HEART: S1, S2. ABDOMEN: Soft. Bowel tones active EXTREMITIES: Bilateral edema. ASSESSMENT: 1. Gram-negative fanta UTI with bacteremia 2. S/p acute respiratory failure and septic shock. 3. Acute kidney injury 4. Status post cardiopulmonary arrest. 5. History of ETOH abuse. 7. Morbid obesity PLAN: The patient remains stable, pending final cultures, will repeat blood cultures today, follow labs in a.m., continue antibiotics [facility] staff Problems: Consultation Date/Type/Reason Admit Date/Time August 01, 2016 at 00:50 Initial Consult Date 08/01/16 Type of Consultation: ID Exam/Review of Systems Vital Signs Vitals Vital Signs Date Time Temp Pulse Resp B/P Pulse Ox O2 Delivery O2 Flow Rate FiO2 09/14/16 14:06 98.1 102 18 123/71 96 09/14/16 08:30 21 09/13/16 12:48 1.0 09/13/16 00:00 Nasal Cannula Intake and Output 09/13/16 09/13/16 09/14/16 15:00 23:00 07:00 Intake Total 840 ml 460 ml Output Total 550 ml 620 ml Balance 290 ml -160 ml Results Result Diagram: 09/12/16201909/12/162019 Results 24 hrs Laboratory Tests Test 09/13/16 17:09 09/13/16 21:13 09/14/16 05:26 09/14/16 08:08 Bedside Glucose 106 112 90 Thyroid Stimulating Hormone (TSH) 12.300 H Test 09/14/16 11:50 Bedside Glucose 99 Medications Medications Current Medications Ondansetron HCl (Zofran Inj) 4 mg Q6H PRN IV NAUSEA AND/OR VOMITING; Start at 03:00 Metoclopramide HCl (Reglan) 10 mg Q6H PRN IV NAUSEA AND/OR VOMITING; Start at 03:00 Acetaminophen (Tylenol Tab) 650 mg Q6H PRN PO PAIN LEVEL 1-3 OR FEVER Last administered on 09/13/16 22:22; Admin Dose 650 MG; Start 08/01/16 at 03:00 Acetaminophen (Tylenol Supp) 650 mg Q4H PRN [place] PAIN LEVEL 1-3 OR FEVER; Start 08/01/16 at 06:30 Miscellaneous Information 1 ea NOTE XX ; Start 08/02/16 at 09:00 Glucose (Glutose) 15 gm Q15M PRN PO DECREASED GLUCOSE; Start 08/02/16 at 09:00 Glucose (Glutose) 22.5 gm Q15M PRN PO DECREASED GLUCOSE; Start 08/02/16 at 09:00 Dextrose (D50w Syringe) 25 ml Q15M PRN IV DECREASED GLUCOSE Last administered on 08/16/16 06:30; Admin Dose 25 ML; Start 08/02/16 at 09:00 Dextrose (D50w Syringe) 50 ml Q15M PRN IV DECREASED GLUCOSE; Start 08/02/16 at 09:00 Glucagon (Glucagen) 1 mg Q15M PRN IM DECREASED GLUCOSE; Start 08/02/16 at 09:00 Glucose (Glutose) 15 gm Q15M PRN BUCCAL DECREASED GLUCOSE; Start 08/02/16 at 09: 00 Calcium Carbonate (Ca Carbonate) 1,250 mg Q12 NGT Last administered on 09:04; Admin Dose 1,250 MG; Start 08/11/16 at 09:00 IV Flush (NS 10 ml) 10 ml PRN PRN IV FLUSH LINE; Start 08/11/16 at 20:00 Pantoprazole (Protonix Tab) 40 mg DAILY@06 PO Last administered on 09/14/16 06 :05; Admin Dose 40 MG; Start 08/18/16 at 06:00 Doxazosin Mesylate (Cardura) 4 mg HS PO Last administered on 09/13/16 21:14; Admin Dose 4 MG; Start 08/19/16 at 21:00 Lorazepam (Ativan) 0.5 mg Q8H PRN PO ANXIETY; Start 08/19/16 at 14:00 Losartan Potassium (Cozaar) 50 mg DAILY PO Last administered on 09/14/16 09:04 ; Admin Dose 50 MG; Start 08/20/16 at 09:00 Amlodipine Besylate (Norvasc) 5 mg BID PO Last administered on 09/14/16 09:03 ; Admin Dose 5 MG; Start 08/23/16 at 21:00 Furosemide (Lasix) 40 mg BID PO Last administered on 09/14/16 09:04; Admin Dose 40 MG; Start 08/25/16 at 09:00 Polyethylene Glycol (Miralax) 17 gm BID PO Last administered on 09/12/16 08:42 ; Admin Dose 17 GM; Start 08/26/16 at 09:00 Bisacodyl (Dulcolax) 10 mg DAILY PRN PO CONSTIPATION Last administered on 16:27; Admin Dose 10 MG; Start 08/26/16 at 08:00 Enoxaparin Sodium (Lovenox) 40 mg DAILY SC Last administered on 09/14/16 09:20 ; Admin Dose 40 MG; Start 08/31/16 at 09:00 Levothyroxine Sodium (Synthroid) 200 mcg DAILY@06 PO Last administered on 06:05; Admin Dose 200 MCG; Start 09/09/16 at 06:00 Liothyronine Sodium 5 mcg 5 mcg DAILY PO Last administered on 09/14/16 09:03; Admin Dose 5 MCG; Start 09/08/16 at 09:00 Ceftriaxone Sodium (Rocephin) 50 ml @ 100 mls/hr Q24H IVPB Last administered on 09/14/16 00:15; Admin Dose 100 MLS/HR; Start 09/13/16 at 01:00 RADHA ESCALANTE NP Sep 14, 2016 14:58
[2016-09-14] MEDS: DOXAZOSIN 4 MG TAB PO SCH (20:17)
[2016-09-14 20:43] VITALS: BP 123/69; RESP 18
[2016-09-15] MEDS: CEFTRIAXONE 1 GM/50 ML (PMX) 50 ML IVPB SCH (01:23)
[2016-09-15 02:02] VITALS: BP 119/69; RESP 18
[2016-09-15] MEDS: LEVOTHYROXINE 100 MCG TAB PO SCH (05:31)
[2016-09-15] MEDS: PANTOPRAZOLE (EC) 40 MG TAB PO SCH (05:31)
[2016-09-15 05:50] LABS: ADD SCAN DIFF NO
[2016-09-15 05:55] LABS: BASOPHIL # 0.1 10^3/ul (0.0-0.1); BASOPHILS % 0.7 % (0.0-2.0); EOSINOPHILS # 0.9 10^3/ul (0.0-0.5); EOSINOPHILS % 7.7 % (0.0-7.0); HEMATOCRIT 26.3 % (42.0-52.0); HEMOGLOBIN 8.3 g/dl (14.0-18.0); LYMPHOCYTES # 2.8 10^3/ul (0.8-2.9); LYMPHOCYTES % 25.4 % (15.0-51.0); MEAN CORPUSCULAR HEMOGLOBIN 30.4 pg (29.0-33.0); MEAN CORPUSCULAR HGB CONC 31.6 g/dl (32.0-37.0); MEAN CORPUSCULAR VOLUME 96.3 fl (82.0-101.0); MEAN PLATELET VOLUME 10.6 fl (7.4-10.4); MONOCYTE # 1.2 10^3/ul (0.3-0.9); NEUTROPHIL # 6.1 10^3/ul (1.6-7.5); NEUTROPHILS % 54.8 % (39.0-77.0); PLATELET COUNT 395 10^3/UL (140-415); RED BLOOD COUNT 2.73 10^6/ul (4.70-6.10); RED CELL DISTRIBUTION WIDTH 15.2 % (11.5-14.5); WHITE BLOOD COUNT 11.1 10^3/ul (4.8-10.8)
[2016-09-15] MEDS: INSULIN ASPART [NOVOLOG] 3 ML PEN SC SCH ×4 (08:02→21:00)
[2016-09-15] MEDS: ENOXAPARIN 40 MG/0.4 ML SYG SC SCH (08:05)
[2016-09-15 08:16] VITALS: BP 114/83; RESP 18
[2016-09-15] MEDS: CA CARBONATE (250 MG/ML) 5ML CUP NGT SCH ×2 (08:19→22:01)
[2016-09-15] MEDS: POLYETHYLENE GLYCOL 17 GM PACKET PO SCH ×2 (08:19→21:00)
[2016-09-15] MEDS: LIOTHYRONINE 5 MCG TAB PO SCH (08:19)
[2016-09-15] MEDS: AMLODIPINE 5 MG TAB PO SCH ×2 (08:20→22:02)
[2016-09-15] MEDS: FUROSEMIDE 40 MG TAB PO SCH ×2 (08:20→22:02)
[2016-09-15] MEDS: LOSARTAN 50 MG TAB PO SCH (08:20)
[2016-09-15] MEDS: ALBUTEROL/IPRATROPIUM (NEB) 3 ML AMP HHN SCH ×3 (08:36→20:32)
--- NOTE | 2016-09-15 12:11 | CONS ---
Date/Time of Note Date/Time of Note DATE: 09/15/16 TIME: 12:11 Assessment/Plan Assessment/Plan Chief Complaint/Hosp Course ID PROGRESS NOTE TOTAL ABX DAY #3 => Ceftriaxone 24H INTERVAL SUMMARY * Patient is sleeping - arousable w/no complaints offered, VSS, no fevers, voiding OK urinal, chart reviewed * MICRO: (+)GNR UTI w/(+)BCx = urosepsis Organism 1 PROTEUS MIRABILIs P. MIRAB M.I.C. RX --------- --- AMPICILLIN <=2 S CEFAZOLIN <=4 S CEFEPIME <=1 S CEFOTAXIME S CIPROFLOXACIN <=0.25 S GENTAMICIN <=1 S LEVOFLOXACIN <=0.12 S TOBRAMYCIN <=1 S TRIMETHOPRIM/SULFAMETHOXAZOLE <=20 S PHYSICAL EXAMINATION: GENERAL: VSS, NAD, no fevers HEENT: Unremarkable, NECK: Supple, CHEST: Equal chest rise bilaterally, without dyspnea on observation HEART: Pulse RRR ABDOMEN: Soft EXTREMITIES: Warm SKIN: Warm, dry ID ASSESSMENT: 61 yo M admitted with: 1. Gram-negative fanta UTI with bacteremia = urosepsis Organism 1 PROTEUS MIRABILIS P. MIRAB M.I.C. RX --------- --- AMPICILLIN <=2 S CEFAZOLIN <=4 S CEFEPIME <=1 S CEFOTAXIME S CIPROFLOXACIN <=0.25 S GENTAMICIN <=1 S LEVOFLOXACIN <=0.12 S TOBRAMYCIN <=1 S TRIMETHOPRIM/SULFAMETHOXAZOLE <=20 S 2. S/p acute respiratory failure and septic shock. 3. Acute kidney injury 4. Status post cardiopulmonary arrest. 5. History of ETOH abuse. 7. Morbid obesity INVASIVES: * PIV ABX ALLERGIES: AZITH CURRENT ABX: DAY #3 => Ceftriaxone ID RECOMMENDATIONS: 1. Ceftriaxone 2GM IV prefer 5 days total IV (last day Saturday) prior to PO Switch to Cipro 500mg PO BID to complete 14 day course to cover (+)GNR Bacteremia 2. Cipro 500mg po Q12H on order for Saturday #6 to complete 14 days. 3. TNS to SNF vs DC on PO ABX approved from [facility] [employer] when cleared by primary . . . . Problems: Consultation Date/Type/Reason Admit Date/Time August 01, 2016 at 00:50 Initial Consult Date 08/01/16 Type of Consultation: ID Exam/Review of Systems Vital Signs Vitals Vital Signs Date Time Temp Pulse Resp B/P Pulse Ox O2 Delivery O2 Flow Rate FiO2 09/15/16 08:37 92 18 97 21 09/15/16 08:16 98.0 114/83 09/13/16 12:48 1.0 09/13/16 00:00 Nasal Cannula Intake and Output 09/14/16 09/14/16 09/15/16 15:00 23:00 07:00 Intake Total 1080 ml 470 ml Output Total 700 ml 950 ml Balance 380 ml -480 ml Results Result Diagram: 09/15/1651509/12/162019 Results 24 hrs Laboratory Tests Test 09/14/16 17:28 09/14/16 20:20 09/15/16 05:16 09/15/16 08:00 Bedside Glucose 93 126 85 White Blood Count 11.1 #H Red Blood Count 2.73 L Hemoglobin 8.3 L Hematocrit 26.3 L Mean Corpuscular Volume 96.3 Mean Corpuscular Hemoglobin 30.4 Mean Corpuscular Hemoglobin Concent 31.6 L Red Cell Distribution Width 15.2 H Platelet Count 395 Mean Platelet Volume 10.6 H Neutrophils % 54.8 Lymphocytes % 25.4 Monocytes % 11.0 Eosinophils % 7.7 H Basophils % 0.7 Nucleated Red Blood Cells % 0.0 Neutrophils # 6.1 Lymphocytes # 2.8 Monocytes # 1.2 H Eosinophils # 0.9 H Basophils # 0.1 Nucleated Red Blood Cells # 0.0 Medications Medications Current Medications Ondansetron HCl (Zofran Inj) 4 mg Q6H PRN IV NAUSEA AND/OR VOMITING; Start at 03:00 Metoclopramide HCl (Reglan) 10 mg Q6H PRN IV NAUSEA AND/OR VOMITING; Start at 03:00 Acetaminophen (Tylenol Tab) 650 mg Q6H PRN PO PAIN LEVEL 1-3 OR FEVER Last administered on 09/13/16 22:22; Admin Dose 650 MG; Start 08/01/16 at 03:00 Acetaminophen (Tylenol Supp) 650 mg Q4H PRN [place] PAIN LEVEL 1-3 OR FEVER; Start 08/01/16 at 06:30 Miscellaneous Information 1 ea NOTE XX ; Start 08/02/16 at 09:00 Glucose (Glutose) 15 gm Q15M PRN PO DECREASED GLUCOSE; Start 08/02/16 at 09:00 Glucose (Glutose) 22.5 gm Q15M PRN PO DECREASED GLUCOSE; Start 08/02/16 at 09:00 Dextrose (D50w Syringe) 25 ml Q15M PRN IV DECREASED GLUCOSE Last administered on 08/16/16 06:30; Admin Dose 25 ML; Start 08/02/16 at 09:00 Dextrose (D50w Syringe) 50 ml Q15M PRN IV DECREASED GLUCOSE; Start 08/02/16 at 09:00 Glucagon (Glucagen) 1 mg Q15M PRN IM DECREASED GLUCOSE; Start 08/02/16 at 09:00 Glucose (Glutose) 15 gm Q15M PRN BUCCAL DECREASED GLUCOSE; Start 08/02/16 at 09: 00 Calcium Carbonate (Ca Carbonate) 1,250 mg Q12 NGT Last administered on 08:19; Admin Dose 1,250 MG; Start 08/11/16 at 09:00 IV Flush (NS 10 ml) 10 ml PRN PRN IV FLUSH LINE; Start 08/11/16 at 20:00 Pantoprazole (Protonix Tab) 40 mg DAILY@06 PO Last administered on 09/15/16 05 :31; Admin Dose 40 MG; Start 08/18/16 at 06:00 Lorazepam (Ativan) 0.5 mg Q8H PRN PO ANXIETY; Start 08/19/16 at 14:00 Losartan Potassium (Cozaar) 50 mg DAILY PO Last administered on 09/15/16 08:20 ; Admin Dose 50 MG; Start 08/20/16 at 09:00 Amlodipine Besylate (Norvasc) 5 mg BID PO Last administered on 09/15/16 08:20 ; Admin Dose 5 MG; Start 08/23/16 at 21:00 Furosemide (Lasix) 40 mg BID PO Last administered on 09/15/16 08:20; Admin Dose 40 MG; Start 08/25/16 at 09:00 Polyethylene Glycol (Miralax) 17 gm BID PO Last administered on 09/15/16 08:19 ; Admin Dose 17 GM; Start 08/26/16 at 09:00 Bisacodyl (Dulcolax) 10 mg DAILY PRN PO CONSTIPATION Last administered on 16:27; Admin Dose 10 MG; Start 08/26/16 at 08:00 Enoxaparin Sodium (Lovenox) 40 mg DAILY SC Last administered on 09/15/16 08:05 ; Admin Dose 40 MG; Start 08/31/16 at 09:00 Levothyroxine Sodium (Synthroid) 200 mcg DAILY@06 PO Last administered on 05:31; Admin Dose 200 MCG; Start 09/09/16 at 06:00 Liothyronine Sodium 5 mcg 5 mcg DAILY PO Last administered on 09/15/16 08:19; Admin Dose 5 MCG; Start 09/08/16 at 09:00 Ceftriaxone Sodium (Rocephin) 50 ml @ 100 mls/hr Q24H IVPB Last administered on 09/15/16 01:23; Admin Dose 100 MLS/HR; Start 09/13/16 at 01:00 LUCY BRANDON NP Sep 15, 2016 12:11
--- NOTE | 2016-09-15 13:35 | PN ---
Date/Time of Note Date/Time of Note DATE: 09/15/16 TIME: 13:33 Assessment/Plan VTE Prophylaxis VTE Prophylaxis Intervention: SCD's Lines/Catheters IV Catheter Type (from Nrs): Peripheral IV Urinary Cath still in place: No Assessment/Plan Assessment/Plan 60 M admitted in PEA arrest 2/2 severe metabolic acidosis with ROSC following CPR. Etiology of metabolic acidosis possibly from septic shock/lactic acidosis? from aspiration pna? Metabolic acidosis resolved following temporary HD. had fever overnight 7.12, suspect 2/2 proteus UTI with hematologic spread. 0. proteus bacteremia: likely source. await blood/urine culture data. change ceftriaxone to ampicillin. plan on 7-14 days of abx. ID following 1. sp PEA cardiac arrest 2/2 severe metabolic acidosis. The patient is being followed by Cardiology. As per Cardiology, there is no cardiac etiology to suggest the cardiac arrest. - monitor 2. Acute on chronic diastolic heart failure. Improved with diuresis. 3. Acute kidney injury that required temporary hemodialysis. sp HD 4. Essential hypertension. Continue antihypertensives. 5. Acute encephalopathy secondary to #1, RESOLVED 6. Acute respiratory failure with ARDS and pulmonary edema, status post mechanical ventilation, SP EXTUBATION 7. Status post sepsis, probably secondary to underlying aspiration pneumonia. RESOLVED 8. Hypothyroidism, severe. Continue Synthroid. 9. Debility. Physical therapy is recommending senior care facility versus acute rehabilitation unit for further rehabilitation. 10. Normocytic normochromic anemia. monitor 11. Elevated BGs. Hemoglobin A1c 5.0. Continue sliding scale insulin. 12. Occlusive thrombosis of the left cephalic vein - off anticoagulation for DVT tx - monitor, warm compresses prn regular diet DVT prophylaxis. Subcutaneous Lovenox. Plan. Await placement - f/u with CM -they are actively looking for placement; continue current management. Disability paperwork also completed Talked to pt's sister on the phone. She wants to know if CM can call the [place] and see if they'll pay for pt to be transferred to [facility]. CM cs placed Subjective 24 Hr Interval Summary Free Text/Dictation pt sleeping at time of my eval this AM. Exam/Review of Systems Vital Signs Vitals Vital Signs Date Time Temp Pulse Resp B/P Pulse Ox O2 Delivery O2 Flow Rate FiO2 09/15/16 08:37 92 18 97 21 09/15/16 08:16 98.0 114/83 09/13/16 12:48 1.0 09/13/16 00:00 Nasal Cannula Intake and Output 09/14/16 09/14/16 09/15/16 15:00 23:00 07:00 Intake Total 1080 ml 470 ml Output Total 700 ml 950 ml Balance 380 ml -480 ml Exam nad, laying flat no mrg lungs clear abd soft no rashes urine and blood cultures with proteus S to ampicillin Results Result Diagram: 09/15/16 0516 09/12/16 2020 Results 24 hrs Laboratory Tests Test 09/14/16 17:28 09/14/16 20:20 09/15/16 05:16 09/15/16 08:00 Bedside Glucose 93 126 85 White Blood Count 11.1 #H Red Blood Count 2.73 L Hemoglobin 8.3 L Hematocrit 26.3 L Mean Corpuscular Volume 96.3 Mean Corpuscular Hemoglobin 30.4 Mean Corpuscular Hemoglobin Concent 31.6 L Red Cell Distribution Width 15.2 H Platelet Count 395 Mean Platelet Volume 10.6 H Neutrophils % 54.8 Lymphocytes % 25.4 Monocytes % 11.0 Eosinophils % 7.7 H Basophils % 0.7 Nucleated Red Blood Cells % 0.0 Neutrophils # 6.1 Lymphocytes # 2.8 Monocytes # 1.2 H Eosinophils # 0.9 H Basophils # 0.1 Nucleated Red Blood Cells # 0.0 Test 09/15/16 12:11 Bedside Glucose 112 Medications Medications Current Medications Ondansetron HCl (Zofran Inj) 4 mg Q6H PRN IV NAUSEA AND/OR VOMITING; Start at 03:00 Metoclopramide HCl (Reglan) 10 mg Q6H PRN IV NAUSEA AND/OR VOMITING; Start at 03:00 Acetaminophen (Tylenol Tab) 650 mg Q6H PRN PO PAIN LEVEL 1-3 OR FEVER Last administered on 09/13/16t 22:22; Admin Dose 650 MG; Start 08/01/16 at 03:00 Acetaminophen (Tylenol Supp) 650 mg Q4H PRN [place] PAIN LEVEL 1-3 OR FEVER; Start 08/01/16 at 06:30 Miscellaneous Information 1 ea NOTE XX ; Start 08/02/16 at 09:00 Glucose (Glutose) 15 gm Q15M PRN PO DECREASED GLUCOSE; Start 08/02/16 at 09:00 Glucose (Glutose) 22.5 gm Q15M PRN PO DECREASED GLUCOSE; Start 08/02/16 at 09:00 Dextrose (D50w Syringe) 25 ml Q15M PRN IV DECREASED GLUCOSE Last administered on 08/16/16 06:30; Admin Dose 25 ML; Start 08/02/16 at 09:00 Dextrose (D50w Syringe) 50 ml Q15M PRN IV DECREASED GLUCOSE; Start 08/02/16 at 09:00 Glucagon (Glucagen) 1 mg Q15M PRN IM DECREASED GLUCOSE; Start 08/02/16 at 09:00 Glucose (Glutose) 15 gm Q15M PRN BUCCAL DECREASED GLUCOSE; Start 08/02/16 at 09: 00 Calcium Carbonate (Ca Carbonate) 1,250 mg Q12 NGT Last administered on 08:19; Admin Dose 1,250 MG; Start 08/11/16 at 09:00 IV Flush (NS 10 ml) 10 ml PRN PRN IV FLUSH LINE; Start 08/11/16 at 20:00 Pantoprazole (Protonix Tab) 40 mg DAILY@06 PO Last administered on 09/15/16 05 :31; Admin Dose 40 MG; Start 08/18/16 at 06:00 Lorazepam (Ativan) 0.5 mg Q8H PRN PO ANXIETY; Start 08/19/16 at 14:00 Losartan Potassium (Cozaar) 50 mg DAILY PO Last administered on 09/15/16 08:20 ; Admin Dose 50 MG; Start 08/20/16 at 09:00 Amlodipine Besylate (Norvasc) 5 mg BID PO Last administered on 09/15/16 08:20 ; Admin Dose 5 MG; Start 08/23/16 at 21:00 Furosemide (Lasix) 40 mg BID PO Last administered on 09/15/16 08:20; Admin Dose 40 MG; Start 08/25/16 at 09:00 Polyethylene Glycol (Miralax) 17 gm BID PO Last administered on 09/15/16 08:19 ; Admin Dose 17 GM; Start 08/26/16 at 09:00 Bisacodyl (Dulcolax) 10 mg DAILY PRN PO CONSTIPATION Last administered on 16:27; Admin Dose 10 MG; Start 08/26/16 at 08:00 Enoxaparin Sodium (Lovenox) 40 mg DAILY SC Last administered on 09/15/16 08:05 ; Admin Dose 40 MG; Start 08/31/16 at 09:00 Levothyroxine Sodium (Synthroid) 200 mcg DAILY@06 PO Last administered on 05:31; Admin Dose 200 MCG; Start 09/09/16 at 06:00 Liothyronine Sodium 5 mcg 5 mcg DAILY PO Last administered on 09/15/16 08:19; Admin Dose 5 MCG; Start 09/08/16 at 09:00 Ceftriaxone Sodium (Rocephin) 50 ml @ 100 mls/hr Q24H IVPB Last administered on 09/15/16 01:23; Admin Dose 100 MLS/HR; Start 09/13/16 at 01:00 GABRIELA GONZALEZ MD Sep 15, 2016 13:35
[2016-09-15] MEDS ORDERED: CEFTRIAXONE 1 GM/50 ML (PMX) 50 ML IVPB ONE (14:30)
[2016-09-15] MEDS ORDERED: AMPICILLIN 500 MG CAP PO SCH (18:00)
[2016-09-15 19:50] VITALS: BP 134/78; RESP 20
[2016-09-15 22:06] VITALS: BP 130/75; PULSE 100
[2016-09-16 02:00] VITALS: BP 129/82; RESP 20
[2016-09-16] MEDS: LEVOTHYROXINE 100 MCG TAB PO SCH (06:17)
[2016-09-16] MEDS: PANTOPRAZOLE (EC) 40 MG TAB PO SCH (06:18)
[2016-09-16 07:51] VITALS: BP 134/75; RESP 19
[2016-09-16] MEDS: INSULIN ASPART [NOVOLOG] 3 ML PEN SC SCH ×4 (08:15→20:46)
[2016-09-16] MEDS: ALBUTEROL/IPRATROPIUM (NEB) 3 ML AMP HHN SCH ×3 (08:34→19:46)
[2016-09-16] MEDS: CA CARBONATE (250 MG/ML) 5ML CUP NGT SCH ×2 (08:50→20:45)
[2016-09-16] MEDS: LIOTHYRONINE 5 MCG TAB PO SCH ×2 (08:50→20:45)
[2016-09-16] MEDS: POLYETHYLENE GLYCOL 17 GM PACKET PO SCH ×2 (08:50→20:46)
[2016-09-16] MEDS: AMLODIPINE 5 MG TAB PO SCH ×2 (08:51→20:45)
[2016-09-16] MEDS: LOSARTAN 50 MG TAB PO SCH (08:51)
[2016-09-16] MEDS: FUROSEMIDE 40 MG TAB PO SCH ×2 (08:51→20:46)
[2016-09-16] MEDS: ENOXAPARIN 40 MG/0.4 ML SYG SC SCH (08:55)
--- NOTE | 2016-09-16 14:04 | CONS ---
Date/Time of Note Date/Time of Note DATE: 09/16/16 TIME: 13:59 Assessment/Plan Assessment/Plan Chief Complaint/Hosp Course Assessment/Plan Chief Complaint/Hosp Course ID PROGRESS NOTE TOTAL ABX DAY #3 => Ceftriaxone 24H INTERVAL SUMMARY 1. Awake. Alert. Denies Pain. No Acute Distress. 2. MICRO: (+)GNR UTI w/(+)BCx = urosepsis Organism 1 PROTEUS MIRABILIs P. MIRAB M.I.C. RX --------- --- AMPICILLIN <=2 S CEFAZOLIN <=4 S CEFEPIME <=1 S CEFOTAXIME S CIPROFLOXACIN <=0.25 S GENTAMICIN <=1 S LEVOFLOXACIN <=0.12 S TOBRAMYCIN <=1 S TRIMETHOPRIM/SULFAMETHOXAZOLE <=20 S PHYSICAL EXAMINATION: GENERAL: VSS, NAD, no fevers HEENT: Unremarkable, NECK: Supple, CHEST: Equal chest rise bilaterally, without dyspnea on observation HEART: Pulse RRR ABDOMEN: Soft EXTREMITIES: Warm SKIN: Warm, dry ID ASSESSMENT: 61 yo M admitted with: 1. Gram-negative fanta UTI with bacteremia = urosepsis Organism 1 PROTEUS MIRABILIS P. MIRAB M.I.C. RX --------- --- AMPICILLIN <=2 S CEFAZOLIN <=4 S CEFEPIME <=1 S CEFOTAXIME S CIPROFLOXACIN <=0.25 S GENTAMICIN <=1 S LEVOFLOXACIN <=0.12 S TOBRAMYCIN <=1 S TRIMETHOPRIM/SULFAMETHOXAZOLE <=20 S 2. S/p acute respiratory failure and septic shock. 3. Acute kidney injury 4. Status post cardiopulmonary arrest. 5. History of ETOH abuse. 7. Morbid obesity 8. Dry Skin of Bilateral Feet INVASIVES: * PIV ABX ALLERGIES: AZITH CURRENT ABX: DAY #3 => Ceftriaxone ID RECOMMENDATIONS: 1. Ceftriaxone 2GM IV prefer 5 days total IV (last day Saturday) prior to PO Switch to Cipro 500mg PO BID to complete 14 day course to cover (+)GNR Bacteremia 2. Cipro 500mg po Q12H on order for Saturday Day #6 to complete 14 days. 3. TNS to SNF vs DC on PO ABX approved from [facility] [employer] when cleared by primary 4. Skin Care of Bilateral Feet. Monitor Labs. D/W Staff. Problems: Consultation Date/Type/Reason Admit Date/Time August 01, 2016 at 00:50 Initial Consult Date 08/01/16 Type of Consultation: ID Exam/Review of Systems Vital Signs Vitals Vital Signs Date Time Temp Pulse Resp B/P Pulse Ox O2 Delivery O2 Flow Rate FiO2 09/16/16 08:34 99 18 95 21 09/16/16 07:51 98.6 134/75 09/13/16 12:48 1.0 09/13/16 00:00 Nasal Cannula Intake and Output 09/15/16 09/15/16 09/16/16 15:00 23:00 07:00 Intake Total 50 ml Balance 50 ml Results Result Diagram: 09/15/16 0516 09/12/162019 Results 24 hrs Laboratory Tests Test 09/15/16 17:23 09/15/16 21:54 09/16/16 08:06 09/16/16 11:58 Bedside Glucose 131 132 84 97 Medications Medications Current Medications Ondansetron HCl (Zofran Inj) 4 mg Q6H PRN IV NAUSEA AND/OR VOMITING; Start at 03:00 Metoclopramide HCl (Reglan) 10 mg Q6H PRN IV NAUSEA AND/OR VOMITING; Start at 03:00 Acetaminophen (Tylenol Tab) 650 mg Q6H PRN PO PAIN LEVEL 1-3 OR FEVER Last administered on 09/13/16t 22:22; Admin Dose 650 MG; Start 08/01/16 at 03:00 Acetaminophen (Tylenol Supp) 650 mg Q4H PRN [place] PAIN LEVEL 1-3 OR FEVER; Start 08/01/16 at 06:30 Miscellaneous Information 1 ea NOTE XX ; Start 08/02/16 at 09:00 Glucose (Glutose) 15 gm Q15M PRN PO DECREASED GLUCOSE; Start 08/02/16 at 09:00 Glucose (Glutose) 22.5 gm Q15M PRN PO DECREASED GLUCOSE; Start 08/02/16 at 09:00 Dextrose (D50w Syringe) 25 ml Q15M PRN IV DECREASED GLUCOSE Last administered on 08/16/16 06:30; Admin Dose 25 ML; Start 08/02/16 at 09:00 Dextrose (D50w Syringe) 50 ml Q15M PRN IV DECREASED GLUCOSE; Start 08/02/16 at 09:00 Glucagon (Glucagen) 1 mg Q15M PRN IM DECREASED GLUCOSE; Start 08/02/16 at 09:00 Glucose (Glutose) 15 gm Q15M PRN BUCCAL DECREASED GLUCOSE; Start 08/02/16 at 09: 00 Calcium Carbonate (Ca Carbonate) 1,250 mg Q12 NGT Last administered on 08:50; Admin Dose 1,250 MG; Start 08/11/16 at 09:00 IV Flush (NS 10 ml) 10 ml PRN PRN IV FLUSH LINE; Start 08/11/16 at 20:00 Pantoprazole (Protonix Tab) 40 mg DAILY@06 PO Last administered on 09/16/16 06 :18; Admin Dose 40 MG; Start 08/18/16 at 06:00 Lorazepam (Ativan) 0.5 mg Q8H PRN PO ANXIETY; Start 08/19/16 at 14:00 Losartan Potassium (Cozaar) 50 mg DAILY PO Last administered on 09/16/16 08:51 ; Admin Dose 50 MG; Start 08/20/16 at 09:00 Amlodipine Besylate (Norvasc) 5 mg BID PO Last administered on 09/16/16 08:51 ; Admin Dose 5 MG; Start 08/23/16 at 21:00 Furosemide (Lasix) 40 mg BID PO Last administered on 09/16/16 08:51; Admin Dose 40 MG; Start 08/25/16 at 09:00 Polyethylene Glycol (Miralax) 17 gm BID PO Last administered on 09/16/16 08:50 ; Admin Dose 17 GM; Start 08/26/16 at 09:00 Bisacodyl (Dulcolax) 10 mg DAILY PRN PO CONSTIPATION Last administered on 16:27; Admin Dose 10 MG; Start 08/26/16 at 08:00 Enoxaparin Sodium (Lovenox) 40 mg DAILY SC Last administered on 09/16/16 08:55 ; Admin Dose 40 MG; Start 6/30/17 at 09:00 Levothyroxine Sodium 200 mcg 200 mcg DAILY@06 PO Last administered on 06:17; Admin Dose 200 MCG; Start 09/09/16 at 06:00 Ceftriaxone Sodium (Rocephin) 50 ml @ 100 mls/hr Q24H IVPB ; Start 09/16/16 at 14:30; Stop 09/17/16 at 23:00 Ciprofloxacin (Cipro) 500 mg BID@06,18 PO ; Start 09/18/16 at 06:00; Stop at 23:00 Liothyronine Sodium (Cytomel) 5 mcg BID PO Last administered on 09/16/16 08:50 ; Admin Dose 5 MCG; Start 09/16/16 at 09:00 REILLY ALBERT NP Sep 16, 2016 14:04
[2016-09-16 14:07] VITALS: BP 132/73; RESP 19
[2016-09-16] MEDS ORDERED: CEFTRIAXONE 2 GM/50 ML (PMX) 50 ML IVPB SCH (14:30)
--- NOTE | 2016-09-16 15:36 | PN ---
Date/Time of Note Date/Time of Note DATE: 09/16/16 TIME: 15:34 Assessment/Plan VTE Prophylaxis VTE Prophylaxis Intervention: SCD's Lines/Catheters IV Catheter Type (from Nrs): Peripheral IV Urinary Cath still in place: No Assessment/Plan Assessment/Plan 60 M admitted in PEA arrest 2/2 severe metabolic acidosis with ROSC following CPR. Etiology of metabolic acidosis possibly from septic shock/lactic acidosis? from aspiration pna? Metabolic acidosis resolved following temporary HD. had fever 7.12, suspect 2/2 proteus UTI with hematologic spread. 0. proteus bacteremia: likely source.abx as per ID. currently rocephin, to be coverted to cipro for 14 days of total abx 1. sp PEA cardiac arrest 2/2 severe metabolic acidosis. The patient is being followed by Cardiology. As per Cardiology, there is no cardiac etiology to suggest the cardiac arrest. - monitor 2. Acute on chronic diastolic heart failure. Improved with diuresis. 3. Acute kidney injury that required temporary hemodialysis. sp HD 4. Essential hypertension. Continue antihypertensives. 5. Acute encephalopathy secondary to #1, RESOLVED 6. Acute respiratory failure with ARDS and pulmonary edema, status post mechanical ventilation, SP EXTUBATION 7. Status post sepsis, probably secondary to underlying aspiration pneumonia. RESOLVED 8. Hypothyroidism, severe. Continue Synthroid. 9. Debility. Physical therapy is recommending custodial facility versus acute rehabilitation unit for further rehabilitation. 10. Normocytic normochromic anemia. monitor 11. Elevated BGs. Hemoglobin A1c 5.0. Continue sliding scale insulin. 12. Occlusive thrombosis of the left cephalic vein - off anticoagulation for DVT tx - monitor, warm compresses prn regular diet DVT prophylaxis. Subcutaneous Lovenox. Plan. Await placement - f/u with [facility] -they are actively looking for placement; continue current management. Disability paperwork also completed pt's sister has come from [place] hopes to take him home. Subjective 24 Hr Interval Summary Free Text/Dictation Pt seen with sister at bedside. Pt has not yet tried to get out of bed today. Dw pt that the only way he is going to feel better is if he gets out of bed and starts moving Exam/Review of Systems Vital Signs Vitals Vital Signs Date Time Temp Pulse Resp B/P Pulse Ox O2 Delivery O2 Flow Rate FiO2 09/16/16 14:07 98.5 98 19 132/73 94 09/16/16 08:34 21 7/13/17 12:48 1.0 09/13/16 00:00 Nasal Cannula Intake and Output 09/15/16 09/15/16 09/16/16 15:00 23:00 07:00 Intake Total 50 ml Balance 50 ml Exam nad no mrg lungs clear abd soft no rashes Results Result Diagram: 09/15/16 0516 09/12/16 2020 Results 24 hrs Laboratory Tests Test 09/15/16 17:23 09/15/16 21:54 09/16/16 08:06 09/16/16 11:58 Bedside Glucose 131 132 84 97 Medications Medications Current Medications Ondansetron HCl (Zofran Inj) 4 mg Q6H PRN IV NAUSEA AND/OR VOMITING; Start at 03:00 Metoclopramide HCl (Reglan) 10 mg Q6H PRN IV NAUSEA AND/OR VOMITING; Start at 03:00 Acetaminophen (Tylenol Tab) 650 mg Q6H PRN PO PAIN LEVEL 1-3 OR FEVER Last administered on 09/13/16 22:22; Admin Dose 650 MG; Start 08/01/16 at 03:00 Acetaminophen (Tylenol Supp) 650 mg Q4H PRN [place] PAIN LEVEL 1-3 OR FEVER; Start 08/01/16 at 06:30 Miscellaneous Information 1 ea NOTE XX ; Start 08/02/16 at 09:00 Glucose (Glutose) 15 gm Q15M PRN PO DECREASED GLUCOSE; Start 08/02/16 at 09:00 Glucose (Glutose) 22.5 gm Q15M PRN PO DECREASED GLUCOSE; Start 08/02/16 at 09:00 Dextrose (D50w Syringe) 25 ml Q15M PRN IV DECREASED GLUCOSE Last administered on 08/16/16 06:30; Admin Dose 25 ML; Start 08/02/16 at 09:00 Dextrose (D50w Syringe) 50 ml Q15M PRN IV DECREASED GLUCOSE; Start 08/02/16 at 09:00 Glucagon (Glucagen) 1 mg Q15M PRN IM DECREASED GLUCOSE; Start 08/02/16 at 09:00 Glucose (Glutose) 15 gm Q15M PRN BUCCAL DECREASED GLUCOSE; Start 08/02/16 at 09: 00 Calcium Carbonate (Ca Carbonate) 1,250 mg Q12 NGT Last administered on 08:50; Admin Dose 1,250 MG; Start 08/11/16 at 09:00 IV Flush (NS 10 ml) 10 ml PRN PRN IV FLUSH LINE; Start 08/11/16 at 20:00 Pantoprazole (Protonix Tab) 40 mg DAILY@06 PO Last administered on 09/16/16 06 :18; Admin Dose 40 MG; Start 08/18/16 at 06:00 Lorazepam (Ativan) 0.5 mg Q8H PRN PO ANXIETY; Start 08/19/16 at 14:00 Losartan Potassium (Cozaar) 50 mg DAILY PO Last administered on 09/16/16 08:51 ; Admin Dose 50 MG; Start 08/20/16 at 09:00 Amlodipine Besylate (Norvasc) 5 mg BID PO Last administered on 09/16/16 08:51 ; Admin Dose 5 MG; Start 08/23/16 at 21:00 Furosemide (Lasix) 40 mg BID PO Last administered on 09/16/16 08:51; Admin Dose 40 MG; Start 08/25/16 at 09:00 Polyethylene Glycol (Miralax) 17 gm BID PO Last administered on 09/16/16 08:50 ; Admin Dose 17 GM; Start 08/26/16 at 09:00 Bisacodyl (Dulcolax) 10 mg DAILY PRN PO CONSTIPATION Last administered on 16:27; Admin Dose 10 MG; Start 08/26/16 at 08:00 Enoxaparin Sodium (Lovenox) 40 mg DAILY SC Last administered on 09/16/16 08:55 ; Admin Dose 40 MG; Start 08/31/16 at 09:00 Levothyroxine Sodium 200 mcg 200 mcg DAILY@06 PO Last administered on 06:17; Admin Dose 200 MCG; Start 09/09/16 at 06:00 Ceftriaxone Sodium (Rocephin) 50 ml @ 100 mls/hr Q24H IVPB ; Start 09/16/16 at 14:30; Stop 09/17/16 at 23:00 Ciprofloxacin (Cipro) 500 mg BID@,18 PO ; Start 09/18/16 at 06:00; Stop at 23:00 Liothyronine Sodium (Cytomel) 5 mcg BID PO Last administered on 09/16/16t 08:50 ; Admin Dose 5 MCG; Start 09/16/16 at 09:00 GABRIELA GONZALEZ MD Sep 16, 2016 15:35
[2016-09-16] MEDS ORDERED: VITAMIN A & D 5 GM OINT PACKET TOP ONE (18:39)
[2016-09-16 19:35] VITALS: BP 133/90; RESP 18
[2016-09-16] MEDS: VITAMIN A & D 5 GM OINT PACKET TOP SCH (20:46)
[2016-09-17 02:42] VITALS: BP 125/75; RESP 18
[2016-09-17] MEDS: PANTOPRAZOLE (EC) 40 MG TAB PO SCH (05:34)
[2016-09-17] MEDS: LEVOTHYROXINE 100 MCG TAB PO SCH (05:34)
[2016-09-17 07:46] VITALS: BP 134/91; RESP 18
[2016-09-17] MEDS: INSULIN ASPART [NOVOLOG] 3 ML PEN SC SCH ×5 (07:50→20:32)
[2016-09-17] MEDS: ALBUTEROL/IPRATROPIUM (NEB) 3 ML AMP HHN SCH ×3 (08:17→21:41)
[2016-09-17] MEDS: FUROSEMIDE 40 MG TAB PO SCH ×2 (08:25→20:31)
[2016-09-17] MEDS: LIOTHYRONINE 5 MCG TAB PO SCH ×2 (08:25→20:32)
[2016-09-17] MEDS: LOSARTAN 50 MG TAB PO SCH (08:25)
[2016-09-17] MEDS: VITAMIN A & D 5 GM OINT PACKET TOP SCH ×2 (08:25→20:32)
[2016-09-17] MEDS: AMLODIPINE 5 MG TAB PO SCH ×2 (08:25→20:32)
[2016-09-17] MEDS: CA CARBONATE (250 MG/ML) 5ML CUP NGT SCH ×2 (08:26→20:31)
[2016-09-17] MEDS: POLYETHYLENE GLYCOL 17 GM PACKET PO SCH ×2 (08:26→20:32)
[2016-09-17] MEDS: ENOXAPARIN 40 MG/0.4 ML SYG SC SCH (08:30)
--- NOTE | 2016-09-17 11:10 | PN ---
Date/Time of Note Date/Time of Note DATE: 09/17/16 TIME: 11:08 Assessment/Plan VTE Prophylaxis VTE Prophylaxis Intervention: LMWH Lines/Catheters IV Catheter Type (from Nrs): Peripheral IV Urinary Cath still in place: No Assessment/Plan Chief Complaint/Hosp Course Assessment/Plan: 60 M admitted in PEA arrest 2/2 severe metabolic acidosis with ROSC following CPR. Etiology of metabolic acidosis possibly from septic shock/ lactic acidosis? from aspiration pna? Metabolic acidosis resolved following temporary HD; had fever 7.12, suspect 2/2 proteus UTI with hematologic spread, on antibiotics now 0. proteus bacteremia: likely source.abx as per ID. currently rocephin, to be coverted to cipro for 14 days of total abx 1. sp PEA cardiac arrest 2/2 severe metabolic acidosis. The patient is being followed by Cardiology. As per Cardiology, there is no cardiac etiology to suggest the cardiac arrest. - monitor 2. Acute on chronic diastolic heart failure. Improved with diuresis. 3. Acute kidney injury that required temporary hemodialysis. sp HD 4. Essential hypertension. Continue antihypertensives. 5. Acute encephalopathy secondary to #1, RESOLVED 6. Acute respiratory failure with ARDS and pulmonary edema, status post mechanical ventilation, SP EXTUBATION 7. Status post sepsis, probably secondary to underlying aspiration pneumonia. RESOLVED 8. Hypothyroidism, severe. Continue Synthroid. 9. Debility. Physical therapy is recommending alf facility versus acute rehabilitation unit for further rehabilitation. 10. Normocytic normochromic anemia. monitor 11. Elevated BGs. Hemoglobin A1c 5.0. Continue sliding scale insulin. 12. Occlusive thrombosis of the left cephalic vein - off anticoagulation for DVT tx - monitor, warm compresses prn regular diet DVT prophylaxis. Subcutaneous Lovenox. Plan. Await placement - f/u with [facility] -they are actively looking for placement; continue current management. Disability paperwork also completed pt's sister has come from [facility] to take him home, will reconsult physical therapy as well to see if patient qualifies for wheelchair or other medical equipment, sister willing to take patient back home to [place] once medically cleared Problems: Subjective 24 Hr Interval Summary Free Text/Dictation Patient with some left lower extremity swelling, otherwise no acute events overnight. Exam/Review of Systems Vital Signs Vitals Vital Signs Date Time Temp Pulse Resp B/P Pulse Ox O2 Delivery O2 Flow Rate FiO2 09/17/16 08:19 94 18 98 21 09/17/16 07:46 97.9 134/91 09/13/16 12:48 1.0 Intake and Output 09/16/16 09/16/16 09/17/16 15:00 23:00 07:00 Intake Total 650 ml Output Total 500 ml Balance 150 ml Exam Lying in bed, Nad PERRLA, EOMI no mrg lungs clear abd soft no rashes Results Result Diagram: 09/15/16 0516 Results 24 hrs Laboratory Tests Test 09/16/16 11:58 09/16/16 17:05 09/16/16 20:42 09/17/16 07:43 Bedside Glucose 97 89 96 82 Medications Medications Current Medications Ondansetron HCl (Zofran Inj) 4 mg Q6H PRN IV NAUSEA AND/OR VOMITING; Start at 03:00 Metoclopramide HCl (Reglan) 10 mg Q6H PRN IV NAUSEA AND/OR VOMITING; Start at 03:00 Acetaminophen (Tylenol Tab) 650 mg Q6H PRN PO PAIN LEVEL 1-3 OR FEVER Last administered on 09/13/16 22:22; Admin Dose 650 MG; Start 08/01/16 at 03:00 Acetaminophen (Tylenol Supp) 650 mg Q4H PRN [place] PAIN LEVEL 1-3 OR FEVER; Start 08/01/16 at 06:30 Miscellaneous Information 1 ea NOTE XX ; Start 08/02/16 at 09:00 Glucose (Glutose) 15 gm Q15M PRN PO DECREASED GLUCOSE; Start 08/02/16 at 09:00 Glucose (Glutose) 22.5 gm Q15M PRN PO DECREASED GLUCOSE; Start 08/02/16 at 09:00 Dextrose (D50w Syringe) 25 ml Q15M PRN IV DECREASED GLUCOSE Last administered on 08/16/16 06:30; Admin Dose 25 ML; Start 08/02/16 at 09:00 Dextrose (D50w Syringe) 50 ml Q15M PRN IV DECREASED GLUCOSE; Start 08/02/16 at 09:00 Glucagon (Glucagen) 1 mg Q15M PRN IM DECREASED GLUCOSE; Start 08/02/16 at 09:00 Glucose (Glutose) 15 gm Q15M PRN BUCCAL DECREASED GLUCOSE; Start 08/02/16 at 09: 00 Calcium Carbonate (Ca Carbonate) 1,250 mg Q12 NGT Last administered on 08:26; Admin Dose 1,250 MG; Start 08/11/16 at 09:00 IV Flush (NS 10 ml) 10 ml PRN PRN IV FLUSH LINE; Start 08/11/16 at 20:00 Pantoprazole (Protonix Tab) 40 mg DAILY@06 PO Last administered on 09/17/16 05 :34; Admin Dose 40 MG; Start 08/18/16 at 06:00 Lorazepam (Ativan) 0.5 mg Q8H PRN PO ANXIETY; Start 08/19/16 at 14:00 Losartan Potassium (Cozaar) 50 mg DAILY PO Last administered on 09/17/16 08:25 ; Admin Dose 50 MG; Start 08/20/16 at 09:00 Amlodipine Besylate (Norvasc) 5 mg BID PO Last administered on 09/17/16 08:25 ; Admin Dose 5 MG; Start 08/23/16 at 21:00 Furosemide (Lasix) 40 mg BID PO Last administered on 09/17/16 08:25; Admin Dose 40 MG; Start 08/25/16 at 09:00 Polyethylene Glycol (Miralax) 17 gm BID PO Last administered on 09/17/16 08:26 ; Admin Dose 17 GM; Start 08/26/16 at 09:00 Bisacodyl (Dulcolax) 10 mg DAILY PRN PO CONSTIPATION Last administered on 16:27; Admin Dose 10 MG; Start 08/26/16 at 08:00 Enoxaparin Sodium (Lovenox) 40 mg DAILY SC Last administered on 09/17/16 08:30 ; Admin Dose 40 MG; Start 08/31/16 at 09:00 Levothyroxine Sodium 200 mcg 200 mcg DAILY@06 PO Last administered on 05:34; Admin Dose 200 MCG; Start 09/09/16 at 06:00 Ceftriaxone Sodium (Rocephin) 50 ml @ 100 mls/hr Q24H IVPB Last administered on 09/16/16 16:12; Admin Dose 100 MLS/HR; Start 09/16/16 at 14:30; Stop at 23:00 Ciprofloxacin (Cipro) 500 mg BID@18 PO ; Start 09/18/16 at 06:00; Stop at 23:00 Liothyronine Sodium (Cytomel) 5 mcg BID PO Last administered on 09/17/16 08:25 ; Admin Dose 5 MCG; Start 09/16/16 at 09:00 Vitamin A/Vitamin D (Vitamin A & D Oint) 1 applic BID TOP Last administered on 09/17/16 08:25; Admin Dose 1 APPLIC; Start 09/16/16 at 21:00 CAM COLON Sep 17, 2016 11:10
--- NOTE | 2016-09-17 13:20 | CONS ---
Date/Time of Note Date/Time of Note DATE: 09/17/16 TIME: 13:18 Assessment/Plan Assessment/Plan Chief Complaint/Hosp Course No acute changes, c looks comfortable, no fevers Antimicrobials: Rocephin Microbiology: Blood and urine culture on September 12 growing Proteus PHYSICAL EXAMINATION: GENERAL: Obese, well-developed middle-aged man in no distress. HEENT: Head atraumatic, normocephalic. Sclerae anicteric. Buccal mucosa dry. NECK: Supple, trachea midline. CHEST: Rise symmetrical. Breath sounds diminished to bases. HEART: S1, S2. ABDOMEN: Soft. Bowel tones active EXTREMITIES: Bilateral edema. ASSESSMENT: 1. Proteus mirabilis UTI with bacteremia 2. S/p acute respiratory failure and septic shock. 3. Acute kidney injury 4. Status post cardiopulmonary arrest. 5. History of ETOH abuse. 7. Morbid obesity PLAN: The patient remains stable, will change abx to oral Levaquin to complete 2 weeks course DW staff Problems: Consultation Date/Type/Reason Admit Date/Time August 01, 2016 at 00:50 Initial Consult Date 08/01/16 Type of Consultation: ID Exam/Review of Systems Vital Signs Vitals Vital Signs Date Time Temp Pulse Resp B/P Pulse Ox O2 Delivery O2 Flow Rate FiO2 09/17/16 08:19 94 18 98 21 09/17/16 07:46 97.9 134/91 09/13/16 12:48 1.0 Intake and Output 09/16/16 09/16/16 09/17/16 15:00 23:00 07:00 Intake Total 650 ml Output Total 500 ml Balance 150 ml Results Result Diagram: 09/15/16 0516 Results 24 hrs Laboratory Tests Test 09/16/16 17:05 09/16/16 20:42 09/17/16 07:43 Bedside Glucose 89 96 82 Medications Medications Current Medications Ondansetron HCl (Zofran Inj) 4 mg Q6H PRN IV NAUSEA AND/OR VOMITING; Start at 03:00 Metoclopramide HCl (Reglan) 10 mg Q6H PRN IV NAUSEA AND/OR VOMITING; Start at 03:00 Acetaminophen (Tylenol Tab) 650 mg Q6H PRN PO PAIN LEVEL 1-3 OR FEVER Last administered on 09/13/16t 22:22; Admin Dose 650 MG; Start 08/01/16 at 03:00 Acetaminophen (Tylenol Supp) 650 mg Q4H PRN [place] PAIN LEVEL 1-3 OR FEVER; Start 08/01/16 at 06:30 Miscellaneous Information 1 ea NOTE XX ; Start 08/02/16 at 09:00 Glucose (Glutose) 15 gm Q15M PRN PO DECREASED GLUCOSE; Start 08/02/16 at 09:00 Glucose (Glutose) 22.5 gm Q15M PRN PO DECREASED GLUCOSE; Start 08/02/16 at 09:00 Dextrose (D50w Syringe) 25 ml Q15M PRN IV DECREASED GLUCOSE Last administered on 08/16/16 06:30; Admin Dose 25 ML; Start 08/02/16 at 09:00 Dextrose (D50w Syringe) 50 ml Q15M PRN IV DECREASED GLUCOSE; Start 08/02/16 at 09:00 Glucagon (Glucagen) 1 mg Q15M PRN IM DECREASED GLUCOSE; Start 08/02/16 at 09:00 Glucose (Glutose) 15 gm Q15M PRN BUCCAL DECREASED GLUCOSE; Start 08/02/16 at 09: 00 Calcium Carbonate (Ca Carbonate) 1,250 mg Q12 NGT Last administered on 08:26; Admin Dose 1,250 MG; Start 08/11/16 at 09:00 IV Flush (NS 10 ml) 10 ml PRN PRN IV FLUSH LINE; Start 08/11/16 at 20:00 Pantoprazole (Protonix Tab) 40 mg DAILY@06 PO Last administered on 09/17/16 05 :34; Admin Dose 40 MG; Start 08/18/16 at 06:00 Lorazepam (Ativan) 0.5 mg Q8H PRN PO ANXIETY; Start 08/19/16 at 14:00 Losartan Potassium (Cozaar) 50 mg DAILY PO Last administered on 09/17/16 08:25 ; Admin Dose 50 MG; Start 08/20/16 at 09:00 Amlodipine Besylate (Norvasc) 5 mg BID PO Last administered on 09/17/16 08:25 ; Admin Dose 5 MG; Start 08/23/16 at 21:00 Furosemide (Lasix) 40 mg BID PO Last administered on 09/17/16 08:25; Admin Dose 40 MG; Start 08/25/16 at 09:00 Polyethylene Glycol (Miralax) 17 gm BID PO Last administered on 09/17/16 08:26 ; Admin Dose 17 GM; Start 08/26/16 at 09:00 Bisacodyl (Dulcolax) 10 mg DAILY PRN PO CONSTIPATION Last administered on 16:27; Admin Dose 10 MG; Start 08/26/16 at 08:00 Enoxaparin Sodium (Lovenox) 40 mg DAILY SC Last administered on 09/17/16 08:30 ; Admin Dose 40 MG; Start 08/31/16 at 09:00 Levothyroxine Sodium 200 mcg 200 mcg DAILY@06 PO Last administered on 05:34; Admin Dose 200 MCG; Start 09/09/16 at 06:00 Ceftriaxone Sodium (Rocephin) 50 ml @ 100 mls/hr Q24H IVPB Last administered on 09/16/16 16:12; Admin Dose 100 MLS/HR; Start 09/16/16 at 14:30; Stop at 23:00 Ciprofloxacin (Cipro) 500 mg BID@06,18 PO ; Start 09/18/16 at 06:00; Stop at 23:00 Liothyronine Sodium (Cytomel) 5 mcg BID PO Last administered on 09/17/16 08:25 ; Admin Dose 5 MCG; Start 09/16/16 at 09:00 Vitamin A/Vitamin D (Vitamin A & D Oint) 1 applic BID TOP Last administered on 09/17/16 08:25; Admin Dose 1 APPLIC; Start 09/16/16 at 21:00 RADHA ESCALANTE NP Sep 17, 2016 13:20
[2016-09-17 13:39] VITALS: BP 128/83; RESP 20
--- NOTE | 2016-09-17 14:06 | RADRPT ---
PROCEDURE: US bilateral lower extremity veins. CLINICAL INDICATION: Bilateral leg pain and swelling. TECHNIQUE: Multiple longitudinal and transverse images of the bilateral lower extremity veins were obtained with nascimento scale and color Doppler imaging. The common femoral vein, femoral vein, and popl iteal vein were evaluated. 2D grayscale measurements with compression sonography, color Doppler, and pulsed Doppler with augmentation. COMPARISON: No prior studies are available for comparison. FINDINGS: The bilateral common femoral, femoral and popliteal veins are normally compressible throughout. Col or flow demonstrates normal filling of the vessels. Normal waveforms are visualized and there is no rmal response to augmentation. There is thrombus bilaterally in the posterior tibial veins and perineal veins which are calf veins. IMPRESSION: 1. Bilateral calf vein thrombosis. 2. The common femoral, femoral, and popliteal veins are normal bilaterally. RPTAT: QQ .Chalo Tapia MD, MD Date Time Electronically viewed and signed by .Chalo Tapia MD, on 09/17/2016 14:06 .R/
[2016-09-17 20:03] VITALS: BP 123/79; RESP 20
[2016-09-18 02:13] VITALS: BP 128/68; RESP 20
[2016-09-18] MEDS: LEVOTHYROXINE 100 MCG TAB PO SCH (05:37)
[2016-09-18] MEDS: PANTOPRAZOLE (EC) 40 MG TAB PO SCH (05:37)
[2016-09-18] MEDS: LEVOFLOXACIN 500 MG TAB PO SCH (05:37)
[2016-09-18] MEDS ORDERED: CIPROFLOXACIN 500 MG TAB PO SCH (06:00)
[2016-09-18] MEDS: ALBUTEROL/IPRATROPIUM (NEB) 3 ML AMP HHN SCH ×3 (07:21→20:29)
[2016-09-18 07:48] VITALS: BP 117/73; RESP 20
[2016-09-18] MEDS: INSULIN ASPART [NOVOLOG] 3 ML PEN SC SCH ×4 (07:56→20:39)
[2016-09-18] MEDS: FUROSEMIDE 40 MG TAB PO SCH ×2 (08:18→20:35)
[2016-09-18] MEDS: CA CARBONATE (250 MG/ML) 5ML CUP NGT SCH ×2 (08:18→20:35)
[2016-09-18] MEDS: LIOTHYRONINE 5 MCG TAB PO SCH ×2 (08:18→20:35)
[2016-09-18] MEDS: LOSARTAN 50 MG TAB PO SCH (08:18)
[2016-09-18] MEDS: POLYETHYLENE GLYCOL 17 GM PACKET PO SCH ×2 (08:18→20:36)
[2016-09-18] MEDS: AMLODIPINE 5 MG TAB PO SCH ×2 (08:18→20:35)
[2016-09-18] MEDS: VITAMIN A & D 5 GM OINT PACKET TOP SCH ×2 (08:18→20:37)
[2016-09-18] MEDS: ENOXAPARIN 40 MG/0.4 ML SYG SC SCH (08:48)
--- NOTE | 2016-09-18 10:05 | PN ---
Date/Time of Note Date/Time of Note DATE: 09/18/16 TIME: 10:01 Assessment/Plan VTE Prophylaxis VTE Prophylaxis Intervention: other (Xarelto) Lines/Catheters IV Catheter Type (from Nrs): Peripheral IV Urinary Cath still in place: No Assessment/Plan Chief Complaint/Hosp Course Assessment/Plan: 60 M admitted in PEA arrest 2/2 severe metabolic acidosis with ROSC following CPR. Etiology of metabolic acidosis possibly from septic shock/ lactic acidosis? from aspiration pna? Metabolic acidosis resolved following temporary HD; had fever 7.12, suspect 2/2 proteus UTI with hematologic spread, on antibiotics now 0. proteus bacteremia: likely source.abx as per ID. currently rocephin, to be converted to cipro for 14 days of total abx 1. sp PEA cardiac arrest 2/2 severe metabolic acidosis. The patient is being followed by Cardiology. As per Cardiology, there is no cardiac etiology to suggest the cardiac arrest. - monitor 2. Acute on chronic diastolic heart failure. Improved with diuresis. 3. Acute kidney injury that required temporary hemodialysis. sp HD 4. Essential hypertension. Continue antihypertensives. 5. Acute encephalopathy secondary to #1, RESOLVED 6. Acute respiratory failure with ARDS and pulmonary edema, status post mechanical ventilation, SP EXTUBATION 7. Status post sepsis, probably secondary to underlying aspiration pneumonia. RESOLVED 8. Hypothyroidism, severe. Continue Synthroid. 9. Debility. Physical therapy is recommending [facility] facility versus acute rehabilitation unit for further rehabilitation. 10. Normocytic normochromic anemia. monitor 11. Elevated BGs. Hemoglobin A1c 5.0. Continue sliding scale insulin. 12. Occlusive thrombosis of the left cephalic vein, and now positive lower extremity DVTs-we will start Xarelto today regular diet DVT prophylaxis. Subcutaneous Lovenox. Plan-f/u with CM -we are waiting for physical therapy to make the recommendations regarding any equipment patient may need. Sister willing to take patient back to the [facility] in [place] once patient is able to be discharged and is medically cleared. Continue current management. Disability paperwork also completed. Problems: Subjective 24 Hr Interval Summary Free Text/Dictation Patient found with bilateral DVTs on ultrasound. No acute events overnight. Still waiting to be seen by physical therapy. Exam/Review of Systems Vital Signs Vitals Vital Signs Date Time Temp Pulse Resp B/P Pulse Ox O2 Delivery O2 Flow Rate FiO2 09/18/16 07:48 97.6 104 20 117/73 95 09/18/16 07:21 21 Intake and Output 09/17/16 09/17/16 09/18/16 15:00 23:00 07:00 Intake Total 840 ml Output Total 300 ml Balance 540 ml Exam Lying in bed, Jaskaran PERRLA, EOMI no mrg lungs clear abd soft no rashes Positive lower extremity edema left greater than right Results Result Diagram: 09/15/16 0516 Results 24 hrs Laboratory Tests Test 09/17/16 13:31 09/17/16 17:04 09/17/16 20:30 09/18/16 07:54 Bedside Glucose 107 102 108 86 Medications Medications Current Medications Ondansetron HCl (Zofran Inj) 4 mg Q6H PRN IV NAUSEA AND/OR VOMITING; Start at 03:00 Metoclopramide HCl (Reglan) 10 mg Q6H PRN IV NAUSEA AND/OR VOMITING; Start at 03:00 Acetaminophen (Tylenol Tab) 650 mg Q6H PRN PO PAIN LEVEL 1-3 OR FEVER Last administered on 09/13/16 22:22; Admin Dose 650 MG; Start 08/01/16 at 03:00 Acetaminophen (Tylenol Supp) 650 mg Q4H PRN [place] PAIN LEVEL 1-3 OR FEVER; Start 08/01/16 at 06:30 Miscellaneous Information 1 ea NOTE XX ; Start 08/02/16 at 09:00 Glucose (Glutose) 15 gm Q15M PRN PO DECREASED GLUCOSE; Start 08/02/16 at 09:00 Glucose (Glutose) 22.5 gm Q15M PRN PO DECREASED GLUCOSE; Start 08/02/16 at 09:00 Dextrose (D50w Syringe) 25 ml Q15M PRN IV DECREASED GLUCOSE Last administered on 08/16/16 06:30; Admin Dose 25 ML; Start 08/02/16 at 09:00 Dextrose (D50w Syringe) 50 ml Q15M PRN IV DECREASED GLUCOSE; Start 08/02/16 at 09:00 Glucagon (Glucagen) 1 mg Q15M PRN IM DECREASED GLUCOSE; Start 08/02/16 at 09:00 Glucose (Glutose) 15 gm Q15M PRN BUCCAL DECREASED GLUCOSE; Start 08/02/16 at 09: 00 Calcium Carbonate (Ca Carbonate) 1,250 mg Q12 NGT Last administered on 08:18; Admin Dose 1,250 MG; Start 08/11/16 at 09:00 IV Flush (NS 10 ml) 10 ml PRN PRN IV FLUSH LINE; Start 08/11/16 at 20:00 Pantoprazole (Protonix Tab) 40 mg DAILY@06 PO Last administered on 09/18/16 05 :37; Admin Dose 40 MG; Start 08/18/16 at 06:00 Lorazepam (Ativan) 0.5 mg Q8H PRN PO ANXIETY; Start 08/19/16 at 14:00 Losartan Potassium (Cozaar) 50 mg DAILY PO Last administered on 09/18/16 08:18 ; Admin Dose 50 MG; Start 08/20/16 at 09:00 Amlodipine Besylate (Norvasc) 5 mg BID PO Last administered on 09/18/16 08:18 ; Admin Dose 5 MG; Start 08/23/16 at 21:00 Furosemide (Lasix) 40 mg BID PO Last administered on 09/18/16 08:18; Admin Dose 40 MG; Start 08/25/16 at 09:00 Polyethylene Glycol (Miralax) 17 gm BID PO Last administered on 09/18/16 08:18 ; Admin Dose 17 GM; Start 08/26/16 at 09:00 Bisacodyl (Dulcolax) 10 mg DAILY PRN PO CONSTIPATION Last administered on 16:27; Admin Dose 10 MG; Start 08/26/16 at 08:00 Levothyroxine Sodium (Synthroid) 200 mcg DAILY@06 PO Last administered on 05:37; Admin Dose 200 MCG; Start 09/09/16 at 06:00 Liothyronine Sodium (Cytomel) 5 mcg BID PO Last administered on 09/18/16 08:18 ; Admin Dose 5 MCG; Start 09/16/16 at 09:00 Vitamin A/Vitamin D (Vitamin A & D Oint) 1 applic BID TOP Last administered on 09/18/16 08:18; Admin Dose 1 APPLIC; Start 09/16/16 at 21:00 Levofloxacin (Levaquin) 500 mg DAILY@06 PO Last administered on 09/18/16 05:37 ; Admin Dose 500 MG; Start 09/18/16 at 06:00 CAM COLON Sep 18, 2016 10:05
[2016-09-18] MEDS: RIVAROXABAN 15 MG TABLET PO SCH ×2 (11:59→17:42)
[2016-09-18 14:06] VITALS: BP 137/73; RESP 20
[2016-09-18] MEDS ORDERED: IOHEXOL 350MG/ML 50 ML BTL ONE (16:34)
[2016-09-18] MEDS ORDERED: IOHEXOL 100 ML ONE (16:34)
[2016-09-18] MEDS ORDERED: SOD CHLORIDE 0.9% 100 ML ONE (16:34)
--- NOTE | 2016-09-18 17:31 | CONS ---
Date/Time of Note Date/Time of Note DATE: 09/18/16 TIME: 17:30 Assessment/Plan Assessment/Plan Chief Complaint/Hosp Course No acute changes, sleeping looks comfortable, no fevers Antimicrobials: Levaquin PHYSICAL EXAMINATION: GENERAL: Obese, well-developed middle-aged man in no distress. HEENT: Head atraumatic, normocephalic. Sclerae anicteric. Buccal mucosa dry. NECK: Supple, trachea midline. CHEST: Rise symmetrical. Breath sounds diminished to bases. HEART: S1, S2. ABDOMEN: Soft. Bowel tones active EXTREMITIES: Bilateral edema. ASSESSMENT: 1. Proteus mirabilis UTI with bacteremia 2. S/p acute respiratory failure and septic shock. 3. Acute kidney injury 4. Status post cardiopulmonary arrest. 5. History of ETOH abuse. 7. Morbid obesity PLAN: The patient remains stable, repeat blood cultures negative, continue Levaquin to complete 2 weeks course [facility] staff Problems: Consultation Date/Type/Reason Admit Date/Time August 01, 2016 at 00:50 Initial Consult Date 08/01/16 Type of Consultation: ID Exam/Review of Systems Vital Signs Vitals Vital Signs Date Time Temp Pulse Resp B/P Pulse Ox O2 Delivery O2 Flow Rate FiO2 09/18/16 14:06 98.0 101 20 137/73 98 09/18/16 13:13 21 Intake and Output 09/17/16 09/17/16 09/18/16 15:00 23:00 07:00 Intake Total 840 ml Output Total 300 ml Balance 540 ml Results Result Diagram: 09/15/16 0516 Results 24 hrs Laboratory Tests Test 09/17/16 20:30 09/18/16 07:54 09/18/16 12:02 Bedside Glucose 108 86 87 Medications Medications Current Medications Ondansetron HCl (Zofran Inj) 4 mg Q6H PRN IV NAUSEA AND/OR VOMITING; Start at 03:00 Metoclopramide HCl (Reglan) 10 mg Q6H PRN IV NAUSEA AND/OR VOMITING; Start at 03:00 Acetaminophen (Tylenol Tab) 650 mg Q6H PRN PO PAIN LEVEL 1-3 OR FEVER Last administered on 09/13/16t 22:22; Admin Dose 650 MG; Start 08/01/16 at 03:00 Acetaminophen (Tylenol Supp) 650 mg Q4H PRN [place] PAIN LEVEL 1-3 OR FEVER; Start 08/01/16 at 06:30 Miscellaneous Information 1 ea NOTE XX ; Start 08/02/16 at 09:00 Glucose (Glutose) 15 gm Q15M PRN PO DECREASED GLUCOSE; Start 08/02/16 at 09:00 Glucose (Glutose) 22.5 gm Q15M PRN PO DECREASED GLUCOSE; Start 08/02/16 at 09:00 Dextrose (D50w Syringe) 25 ml Q15M PRN IV DECREASED GLUCOSE Last administered on 08/16/16 06:30; Admin Dose 25 ML; Start 08/02/16 at 09:00 Dextrose (D50w Syringe) 50 ml Q15M PRN IV DECREASED GLUCOSE; Start 08/02/16 at 09:00 Glucagon (Glucagen) 1 mg Q15M PRN IM DECREASED GLUCOSE; Start 08/02/16 at 09:00 Glucose (Glutose) 15 gm Q15M PRN BUCCAL DECREASED GLUCOSE; Start 08/02/16 at 09: 00 Calcium Carbonate (Ca Carbonate) 1,250 mg Q12 NGT Last administered on 08:18; Admin Dose 1,250 MG; Start 08/11/16 at 09:00 IV Flush (NS 10 ml) 10 ml PRN PRN IV FLUSH LINE; Start 08/11/16 at 20:00 Pantoprazole (Protonix Tab) 40 mg DAILY@06 PO Last administered on 09/18/16 05 :37; Admin Dose 40 MG; Start 08/18/16 at 06:00 Lorazepam (Ativan) 0.5 mg Q8H PRN PO ANXIETY; Start 08/19/16 at 14:00 Losartan Potassium (Cozaar) 50 mg DAILY PO Last administered on 09/18/16 08:18 ; Admin Dose 50 MG; Start 08/20/16 at 09:00 Amlodipine Besylate (Norvasc) 5 mg BID PO Last administered on 09/18/16 08:18 ; Admin Dose 5 MG; Start 08/23/16 at 21:00 Furosemide (Lasix) 40 mg BID PO Last administered on 09/18/16 08:18; Admin Dose 40 MG; Start 08/25/16 at 09:00 Polyethylene Glycol (Miralax) 17 gm BID PO Last administered on 09/18/16 08:18 ; Admin Dose 17 GM; Start 08/26/16 at 09:00 Bisacodyl (Dulcolax) 10 mg DAILY PRN PO CONSTIPATION Last administered on 16:27; Admin Dose 10 MG; Start 08/26/16 at 08:00 Levothyroxine Sodium (Synthroid) 200 mcg DAILY@06 PO Last administered on 05:37; Admin Dose 200 MCG; Start 09/09/16 at 06:00 Liothyronine Sodium (Cytomel) 5 mcg BID PO Last administered on 09/18/16 08:18 ; Admin Dose 5 MCG; Start 09/16/16 at 09:00 Vitamin A/Vitamin D (Vitamin A & D Oint) 1 applic BID TOP Last administered on 09/18/16 08:18; Admin Dose 1 APPLIC; Start 09/16/16 at 21:00 Levofloxacin (Levaquin) 500 mg DAILY@06 PO Last administered on 09/18/16 05:37 ; Admin Dose 500 MG; Start 09/18/16 at 06:00 RADHA ESCALANTE NP Sep 18, 2016 17:31
--- NOTE | 2016-09-18 17:48 | RADRPT ---
PROCEDURE: CT Pulmonary Angiogram. CLINICAL INDICATION: Chest pain and shortness of breath. TECHNIQUE: CT pulmonary angiogram and a CT scan of the chest with contrast was performed. The pat ient was scanned following the uncomplicated intravenous administration of 115 cc of Omnipaque-350 i ntravenous contrast. 2-D coronal reformatted images were obtained from the axial source images. In addition, 3-D post processing was performed. Total exam DLP is 776.40 mGy-cm. CTDIvol is 63.38 mG y. One or more of the following dose reduction techniques were used: Automated exposure control, ad justment of the mA and/or kV according to patient size, use of iterative reconstruction technique. COMPARISON: Bilateral lower extremity venous Doppler dated 09/17/2016 which demonstrated bilateral calf vein thrombosis. FINDINGS: The pulmonary arteries are normal with no filling defect or lack of enhancement to suggest pulmonary artery embolism. There is mild patchy air space disease in the right upper lobe consistent with pneumonia. Mild atel ectasis is present at the right lung base posteriorly. Small benign air cysts are present at the le ft lung base posteriorly. The lungs are otherwise clear with no other airspace or interstitial dise ase. There is no pulmonary nodule or mass lesion. There is no pneumothorax. There is no mediastinal or hilar lymphadenopathy or mass. There is no pleural effusion. There is no pericardial effusion. There is calcification in the aorta consistent with atherosclerosis. The thoracic aorta is otherwis e normal with no aneurysm or dissection. The heart size is normal. There is coronary artery calcification. Images through the upper abdomen demonstrate normal visualized portions of the liver, spleen, and ad renals. There are mild degenerative changes of the spine. There is no fracture or lytic lesion. IMPRESSION: 1. Normal CT pulmonary angiogram with no evidence of pulmonary artery embolism. 2. Mild patchy right upper lobe pneumonia. 3. Mild atelectasis at the right lung base posteriorly. 4. Small benign air cysts at the left lung base posteriorly. 5. Atherosclerosis. 6. Coronary artery calcification. 7. Mild degenerative changes of the spine. RPTAT: QQ .Chalo Tapia MD, MD Date Time Electronically viewed and signed by .Chalo Tapia MD, MD on 09/18/2016 17:48 .R/
[2016-09-18 19:25] VITALS: BP 144/77; RESP 20
[2016-09-19 01:29] VITALS: BP 139/79; RESP 20
[2016-09-19] MEDS: LEVOFLOXACIN 500 MG TAB PO SCH (05:38)
[2016-09-19] MEDS: PANTOPRAZOLE (EC) 40 MG TAB PO SCH (05:39)
[2016-09-19] MEDS: LEVOTHYROXINE 100 MCG TAB PO SCH (05:39)
[2016-09-19 07:29] VITALS: BP 132/72; RESP 19
[2016-09-19] MEDS: ALBUTEROL/IPRATROPIUM (NEB) 3 ML AMP HHN SCH ×3 (07:54→21:50)
[2016-09-19] MEDS: INSULIN ASPART [NOVOLOG] 3 ML PEN SC SCH ×4 (08:15→20:11)
[2016-09-19] MEDS: CA CARBONATE (250 MG/ML) 5ML CUP NGT SCH ×2 (08:50→20:10)
[2016-09-19] MEDS: RIVAROXABAN 15 MG TABLET PO SCH ×2 (08:50→17:24)
[2016-09-19] MEDS: AMLODIPINE 5 MG TAB PO SCH ×2 (08:51→20:10)
[2016-09-19] MEDS: LIOTHYRONINE 5 MCG TAB PO SCH ×2 (08:51→20:10)
[2016-09-19] MEDS: VITAMIN A & D 5 GM OINT PACKET TOP SCH ×2 (08:51→20:10)
[2016-09-19] MEDS: FUROSEMIDE 40 MG TAB PO SCH ×2 (08:52→20:09)
[2016-09-19] MEDS: LOSARTAN 50 MG TAB PO SCH (08:52)
[2016-09-19] MEDS: POLYETHYLENE GLYCOL 17 GM PACKET PO SCH ×2 (08:52→20:10)
--- NOTE | 2016-09-19 09:47 | PN ---
Date/Time of Note Date/Time of Note DATE: 09/19/16 TIME: 09:43 Assessment/Plan VTE Prophylaxis VTE Prophylaxis Intervention: other (Xarelto) Lines/Catheters IV [facility]ter [facility]from [facility]): Saline Lock Urinary Cath still in place: No Assessment/Plan Chief Complaint/Hosp Course Assessment/Plan: 60 M admitted in PEA arrest 2/2 severe metabolic acidosis with ROSC following CPR. Etiology of metabolic acidosis possibly from septic shock/ lactic acidosis? from aspiration pna? Metabolic acidosis resolved following temporary HD; had fever 7.12, suspect 2/2 proteus UTI with hematologic spread, on antibiotics 0. proteus bacteremia: likely source.abx as per ID. currently rocephin, to be converted to cipro for 14 days of total abx 1. sp PEA cardiac arrest 2/2 severe metabolic acidosis. The patient is being followed by Cardiology. As per Cardiology, there is no cardiac etiology to suggest the cardiac arrest. Patient however having positive orthostatic hypotension the last few days, especially when working with physical therapy. Also some slight desaturations. - monitor, will also reconsult cardiology today. 2. Acute on chronic diastolic heart failure. Improved with diuresis -Monitor, reconsulting cardiology as well.. 3. Acute kidney injury that required temporary hemodialysis. sp HD 4. Essential hypertension. Continue antihypertensives. 5. Acute encephalopathy secondary to #1, RESOLVED 6. Acute respiratory failure with ARDS and pulmonary edema, status post mechanical ventilation, SP EXTUBATION 7. Status post sepsis, probably secondary to underlying aspiration pneumonia. RESOLVED 8. Hypothyroidism, severe. Continue Synthroid. 9. Debility. Physical therapy is recommending fdc facility versus acute rehabilitation unit for further rehabilitation. 10. Normocytic normochromic anemia. monitor 11. Elevated BGs. Hemoglobin A1c 5.0. Continue sliding scale insulin. 12. Occlusive thrombosis of the left cephalic vein, and now positive lower extremity DVTs-we will start Xarelto today regular diet DVT prophylaxis. + DVT -Xarelto Plan-f/u with CM -per physical therapy, patient apparently not safe for discharge home at this point. We are going to have to re-evaluate for fdc facility placement. Sister otherwise has been willing to [place] once patient is able to be discharged and is medically cleared. Continue current management. Disability paperwork also completed. Problems: Subjective 24 Hr Interval Summary Free Text/Dictation Patient found with lower extremity DVTs, started on Xarelto. CTA negative for PE. Still having low blood pressure when ambulating with physical therapy, orthostatics positive. No acute events overnight otherwise. Exam/Review of Systems Vital Signs Vitals Vital Signs Date Time Temp Pulse Resp B/P Pulse Ox O2 Delivery O2 Flow Rate FiO2 09/19/16 07:53 88 16 93 21 09/19/16 07:29 98.1 132/72 Intake and Output 09/18/16 09/18/16 09/19/16 15:00 23:00 07:00 Intake Total 800 ml 720 ml 360 ml Output Total 500 ml 400 ml 600 ml Balance 300 ml 320 ml -240 ml Exam Lying in bed, Nad PERRLA, EOMI no mrg lungs clear abd soft no rashes Positive lower extremity edema left greater than right Results Result Diagram: 09/15/16 0516 Results 24 hrs Laboratory Tests Test 09/18/16 12:02 09/18/16 17:33 09/18/16 20:39 09/19/16 07:59 Bedside Glucose 87 92 106 82 Medications Medications Current Medications Ondansetron HCl (Zofran Inj) 4 mg Q6H PRN IV NAUSEA AND/OR VOMITING; Start at 03:00 Metoclopramide HCl (Reglan) 10 mg Q6H PRN IV NAUSEA AND/OR VOMITING; Start at 03:00 Acetaminophen (Tylenol Tab) 650 mg Q6H PRN PO PAIN LEVEL 1-3 OR FEVER Last administered on 09/13/16 22:22; Admin Dose 650 MG; Start 08/01/16 at 03:00 Acetaminophen (Tylenol Supp) 650 mg Q4H PRN [place] PAIN LEVEL 1-3 OR FEVER; Start 08/01/16 at 06:30 Miscellaneous Information 1 ea NOTE XX ; Start 08/02/16 at 09:00 Glucose (Glutose) 15 gm Q15M PRN PO DECREASED GLUCOSE; Start 08/02/16 at 09:00 Glucose (Glutose) 22.5 gm Q15M PRN PO DECREASED GLUCOSE; Start 08/02/16 at 09:00 Dextrose (D50w Syringe) 25 ml Q15M PRN IV DECREASED GLUCOSE Last administered on 08/16/16 06:30; Admin Dose 25 ML; Start 08/02/16 at 09:00 Dextrose (D50w Syringe) 50 ml Q15M PRN IV DECREASED GLUCOSE; Start 08/02/16 at 09:00 Glucagon (Glucagen) 1 mg Q15M PRN IM DECREASED GLUCOSE; Start 08/02/16 at 09:00 Glucose (Glutose) 15 gm Q15M PRN BUCCAL DECREASED GLUCOSE; Start 08/02/16 at 09: 00 Calcium Carbonate (Ca Carbonate) 1,250 mg Q12 NGT Last administered on 08:50; Admin Dose 1,250 MG; Start 08/11/16 at 09:00 IV Flush (NS 10 ml) 10 ml PRN PRN IV FLUSH LINE; Start 08/11/16 at 20:00 Pantoprazole (Protonix Tab) 40 mg DAILY@06 PO Last administered on 09/19/16 05 :39; Admin Dose 40 MG; Start 08/18/16 at 06:00 Lorazepam (Ativan) 0.5 mg Q8H PRN PO ANXIETY; Start 08/19/16 at 14:00 Losartan Potassium (Cozaar) 50 mg DAILY PO Last administered on 09/19/16 08:52 ; Admin Dose 50 MG; Start 08/20/16 at 09:00 Amlodipine Besylate (Norvasc) 5 mg BID PO Last administered on 09/19/16 08:51 ; Admin Dose 5 MG; Start 08/23/16 at 21:00 Furosemide (Lasix) 40 mg BID PO Last administered on 09/19/16 08:52; Admin Dose 40 MG; Start 08/25/16 at 09:00 Polyethylene Glycol (Miralax) 17 gm BID PO Last administered on 09/19/16 08:52 ; Admin Dose 17 GM; Start 08/26/16 at 09:00 Bisacodyl (Dulcolax) 10 mg DAILY PRN PO CONSTIPATION Last administered on 16:27; Admin Dose 10 MG; Start 08/26/16 at 08:00 Levothyroxine Sodium (Synthroid) 200 mcg DAILY@06 PO Last administered on 05:39; Admin Dose 200 MCG; Start 09/09/16 at 06:00 Liothyronine Sodium (Cytomel) 5 mcg BID PO Last administered on 09/19/16 08:51 ; Admin Dose 5 MCG; Start 09/16/16 at 09:00 Vitamin A/Vitamin D (Vitamin A & D Oint) 1 applic BID TOP Last administered on 09/19/16 08:51; Admin Dose 1 APPLIC; Start 09/16/16 at 21:00 Levofloxacin (Levaquin) 500 mg DAILY@06 PO Last administered on 09/19/16 05:38 ; Admin Dose 500 MG; Start 09/18/16 at 06:00 CAM COLON Sep 19, 2016 09:46
[2016-09-19 13:01] VITALS: BP 119/73; RESP 18
--- NOTE | 2016-09-19 13:13 | CONS ---
Date/Time of Note Date/Time of Note DATE: 09/19/16 TIME: 13:12 Assessment/Plan Assessment/Plan Chief Complaint/Hosp Course No acute changes, sleeping looks comfortable, no fevers Antimicrobials: Levaquin PHYSICAL EXAMINATION: GENERAL: Obese, well-developed middle-aged man in no distress. HEENT: Head atraumatic, normocephalic. Sclerae anicteric. Buccal mucosa dry. NECK: Supple, trachea midline. CHEST: Rise symmetrical. Breath sounds diminished to bases. HEART: S1, S2. ABDOMEN: Soft. Bowel tones active EXTREMITIES: Bilateral edema. ASSESSMENT: 1. Proteus mirabilis UTI with bacteremia 2. S/p acute respiratory failure and septic shock. 3. Acute kidney injury status post hemodialysis, now off 4. Right upper lobe pneumonia 4. Status post cardiopulmonary arrest. 5. History of ETOH abuse. 7. Morbid obesity PLAN: The patient remains stable, repeat blood cultures negative, continue Levaquin to complete 2 weeks course aspiration precautions, follow recommendations of storage consultant [facility] staff Problems: Consultation Date/Type/Reason Admit Date/Time August 01, 2016 at 00:50 Initial Consult Date 08/01/16 Type of Consultation: ID Exam/Review of Systems Vital Signs Vitals Vital Signs Date Time Temp Pulse Resp B/P Pulse Ox O2 Delivery O2 Flow Rate FiO2 09/19/16 13:01 98.4 18 119/73 95 09/19/16 07:53 88 21 Intake and Output 09/18/16 09/18/16 09/19/16 15:00 23:00 07:00 Intake Total 800 ml 720 ml 360 ml Output Total 500 ml 400 ml 600 ml Balance 300 ml 320 ml -240 ml Results Result Diagram: 09/15/16 0516 Results 24 hrs Laboratory Tests Test 09/18/16 17:33 09/18/16 20:39 09/19/16 07:59 09/19/16 12:01 Bedside Glucose 92 106 82 98 Medications Medications Current Medications Ondansetron HCl (Zofran Inj) 4 mg Q6H PRN IV NAUSEA AND/OR VOMITING; Start at 03:00 Metoclopramide HCl (Reglan) 10 mg Q6H PRN IV NAUSEA AND/OR VOMITING; Start at 03:00 Acetaminophen (Tylenol Tab) 650 mg Q6H PRN PO PAIN LEVEL 1-3 OR FEVER Last administered on 09/13/16 22:22; Admin Dose 650 MG; Start 08/01/16 at 03:00 Acetaminophen (Tylenol Supp) 650 mg Q4H PRN [place] PAIN LEVEL 1-3 OR FEVER; Start 08/01/16 at 06:30 Miscellaneous Information 1 ea NOTE XX ; Start 08/02/16 at 09:00 Glucose (Glutose) 15 gm Q15M PRN PO DECREASED GLUCOSE; Start 08/02/16 at 09:00 Glucose (Glutose) 22.5 gm Q15M PRN PO DECREASED GLUCOSE; Start 08/02/16 at 09:00 Dextrose (D50w Syringe) 25 ml Q15M PRN IV DECREASED GLUCOSE Last administered on 08/16/16 06:30; Admin Dose 25 ML; Start 08/02/16 at 09:00 Dextrose (D50w Syringe) 50 ml Q15M PRN IV DECREASED GLUCOSE; Start 08/02/16 at 09:00 Glucagon (Glucagen) 1 mg Q15M PRN IM DECREASED GLUCOSE; Start 08/02/16 at 09:00 Glucose (Glutose) 15 gm Q15M PRN BUCCAL DECREASED GLUCOSE; Start 08/02/16 at 09: 00 Calcium Carbonate (Ca Carbonate) 1,250 mg Q12 NGT Last administered on 08:50; Admin Dose 1,250 MG; Start 08/11/16 at 09:00 IV Flush (NS 10 ml) 10 ml PRN PRN IV FLUSH LINE; Start 08/11/16 at 20:00 Pantoprazole (Protonix Tab) 40 mg DAILY@06 PO Last administered on 09/19/16 05 :39; Admin Dose 40 MG; Start 08/18/16 at 06:00 Lorazepam (Ativan) 0.5 mg Q8H PRN PO ANXIETY; Start 08/19/16 at 14:00 Losartan Potassium (Cozaar) 50 mg DAILY PO Last administered on 09/19/16 08:52 ; Admin Dose 50 MG; Start 08/20/16 at 09:00 Amlodipine Besylate (Norvasc) 5 mg BID PO Last administered on 09/19/16 08:51 ; Admin Dose 5 MG; Start 08/23/16 at 21:00 Furosemide (Lasix) 40 mg BID PO Last administered on 09/19/16 08:52; Admin Dose 40 MG; Start 08/25/16 at 09:00 Polyethylene Glycol (Miralax) 17 gm BID PO Last administered on 09/19/16 08:52 ; Admin Dose 17 GM; Start 08/26/16 at 09:00 Bisacodyl (Dulcolax) 10 mg DAILY PRN PO CONSTIPATION Last administered on 16:27; Admin Dose 10 MG; Start 08/26/16 at 08:00 Levothyroxine Sodium (Synthroid) 200 mcg DAILY@06 PO Last administered on 05:39; Admin Dose 200 MCG; Start 09/09/16 at 06:00 Liothyronine Sodium (Cytomel) 5 mcg BID PO Last administered on 09/19/16 08:51 ; Admin Dose 5 MCG; Start 09/16/16 at 09:00 Vitamin A/Vitamin D (Vitamin A & D Oint) 1 applic BID TOP Last administered on 09/19/16 08:51; Admin Dose 1 APPLIC; Start 09/16/16 at 21:00 Levofloxacin (Levaquin) 500 mg DAILY@06 PO Last administered on 09/19/16 05:38 ; Admin Dose 500 MG; Start 09/18/16 at 06:00 RADHA ESCALANTE NP Sep 19, 2016 13:12
[2016-09-19 19:47] VITALS: BP 147/82; RESP 18
[2016-09-20 02:35] VITALS: BP 116/69; RESP 18
[2016-09-20] MEDS: PANTOPRAZOLE (EC) 40 MG TAB PO SCH (05:32)
[2016-09-20] MEDS: LEVOFLOXACIN 500 MG TAB PO SCH (05:32)
[2016-09-20] MEDS: LEVOTHYROXINE 100 MCG TAB PO SCH (05:32)
[2016-09-20 07:53] VITALS: BP 129/77; RESP 18
[2016-09-20] MEDS: ALBUTEROL/IPRATROPIUM (NEB) 3 ML AMP HHN SCH ×3 (07:55→20:05)
[2016-09-20] MEDS: INSULIN ASPART [NOVOLOG] 3 ML PEN SC SCH ×4 (08:15→20:53)
--- NOTE | 2016-09-20 08:16 | CONS ---
Date/Time of Note Date/Time of Note DATE: 09/20/16 TIME: 08:11 Assessment/Plan Assessment/Plan Chief Complaint/Hosp Course Orthostatic hypotension: suspect from volume depletion due to ongoing diuretics. Hold lasix and check labs PEA cardiac arrest: secondary to severe metabolic acidosis. No VT/VF or EKG changes to suggest primary cardiac etiology. Trops ok, EF preserved. Acute respiratory failure: intubated during code.Likely ARDS and some component of fluid overload. Now extubated 08/15 Acute diastolic heart failure: resolved with diuresis Severe metabolic acidosis: likely was the culprit for the arrest. Resolved Shock: septic.Off pressors. Resolved Acute renal failure: unclear etiology. Was on intermittent HD. Good UOP. HD stopped. Now resolved Hypoglycemia Hypothyroidism HTN -d/c lasix -check labs -may need IVF but will wait for labs -amlodipine 5mg BID -cozaar 50mg Problems: Consultation Date/Type/Reason Admit Date/Time August 01, 2016 at 00:50 Initial Consult Date 08/01/16 Type of Consultation: Cardiology 24 HR Interval Summary Free Text/Dictation Asked to see pt due to orthostatic hypotension when walking with PT., Review of chart shows that the pt has been maintained on lasix 40mg PO BID. Last labs were from one week ago. The pt has been having dizziness upon standing while working with PT. SBP drops to the 80s apparently. Resting BP has been normal or high. Exam/Review of Systems Vital Signs Vitals Vital Signs Date Time Temp Pulse Resp B/P Pulse Ox O2 Delivery O2 Flow Rate FiO2 09/20/16 07:55 89 20 98 21 09/20/16 07:53 98.2 129/77 Intake and Output 09/19/16 09/19/16 09/20/16 15:00 23:00 07:00 Intake Total 720 ml 480 ml Output Total 300 ml 850 ml Balance 420 ml -370 ml Exam Constitutional: alert, oriented Psych: no complaints Head: atraumatic, normocephalic Neck: No jvd Respiratory: clear to auscultation, No crackles/rales Cardiovascular: regular rate and rhythm, systolic murmur (2/6 MIKAL), No edema Gastrointestinal: non-tender, soft Neurological: nl mental status, nl speech Results Results 24 hrs Laboratory Tests Test 09/19/16 12:01 09/19/16 17:19 09/19/16 20:08 Bedside Glucose 98 113 133 Medications Medications Current Medications Ondansetron HCl (Zofran Inj) 4 mg Q6H PRN IV NAUSEA AND/OR VOMITING; Start at 03:00 Metoclopramide HCl (Reglan) 10 mg Q6H PRN IV NAUSEA AND/OR VOMITING; Start at 03:00 Acetaminophen (Tylenol Tab) 650 mg Q6H PRN PO PAIN LEVEL 1-3 OR FEVER Last administered on 09/13/16 22:22; Admin Dose 650 MG; Start 08/01/16 at 03:00 Acetaminophen (Tylenol Supp) 650 mg Q4H PRN [place] PAIN LEVEL 1-3 OR FEVER; Start 08/01/16 at 06:30 Miscellaneous Information 1 ea NOTE XX ; Start 08/02/16 at 09:00 Glucose (Glutose) 15 gm Q15M PRN PO DECREASED GLUCOSE; Start 08/02/16 at 09:00 Glucose (Glutose) 22.5 gm Q15M PRN PO DECREASED GLUCOSE; Start 08/02/16 at 09:00 Dextrose (D50w Syringe) 25 ml Q15M PRN IV DECREASED GLUCOSE Last administered on 08/16/16 06:30; Admin Dose 25 ML; Start 08/02/16 at 09:00 Dextrose (D50w Syringe) 50 ml Q15M PRN IV DECREASED GLUCOSE; Start 08/02/16 at 09:00 Glucagon (Glucagen) 1 mg Q15M PRN IM DECREASED GLUCOSE; Start 08/02/16 at 09:00 Glucose (Glutose) 15 gm Q15M PRN BUCCAL DECREASED GLUCOSE; Start 08/02/16 at 09: 00 Calcium Carbonate (Ca Carbonate) 1,250 mg Q12 NGT Last administered on 20:10; Admin Dose 1,250 MG; Start 08/11/16 at 09:00 IV Flush (NS 10 ml) 10 ml PRN PRN IV FLUSH LINE; Start 08/11/16 at 20:00 Pantoprazole (Protonix Tab) 40 mg DAILY@06 PO Last administered on 09/20/16 05 :32; Admin Dose 40 MG; Start 08/18/16 at 06:00 Lorazepam (Ativan) 0.5 mg Q8H PRN PO ANXIETY; Start 08/19/16 at 14:00 Losartan Potassium (Cozaar) 50 mg DAILY PO Last administered on 09/19/16 08:52 ; Admin Dose 50 MG; Start 08/20/16 at 09:00 Amlodipine Besylate (Norvasc) 5 mg BID PO Last administered on 09/19/16 20:10 ; Admin Dose 5 MG; Start 08/23/16 at 21:00 Furosemide (Lasix) 40 mg BID PO Last administered on 09/19/16 20:09; Admin Dose 40 MG; Start 08/25/16 at 09:00 Polyethylene Glycol (Miralax) 17 gm BID PO Last administered on 09/19/16 08:52 ; Admin Dose 17 GM; Start 08/26/16 at 09:00 Bisacodyl (Dulcolax) 10 mg DAILY PRN PO CONSTIPATION Last administered on 16:27; Admin Dose 10 MG; Start 08/26/16 at 08:00 Levothyroxine Sodium (Synthroid) 200 mcg DAILY@06 PO Last administered on 05:32; Admin Dose 200 MCG; Start 09/09/16 at 06:00 Liothyronine Sodium (Cytomel) 5 mcg BID PO Last administered on 09/19/16 20:10 ; Admin Dose 5 MCG; Start 09/16/16 at 09:00 Vitamin A/Vitamin D (Vitamin A & D Oint) 1 applic BID TOP Last administered on 09/19/16 20:10; Admin Dose 1 APPLIC; Start 09/16/16 at 21:00 Levofloxacin (Levaquin) 500 mg DAILY@06 PO Last administered on 09/20/16 05:32 ; Admin Dose 500 MG; Start 09/18/16 at 06:00 SEPIDEH HAN Sep 20, 2016 08:16
[2016-09-20] MEDS: RIVAROXABAN 15 MG TABLET PO SCH ×2 (08:21→17:14)
[2016-09-20] MEDS: POLYETHYLENE GLYCOL 17 GM PACKET PO SCH ×2 (08:21→20:53)
[2016-09-20] MEDS: VITAMIN A & D 5 GM OINT PACKET TOP SCH ×2 (08:21→20:53)
[2016-09-20] MEDS: LIOTHYRONINE 5 MCG TAB PO SCH ×2 (08:21→20:53)
[2016-09-20] MEDS: LOSARTAN 50 MG TAB PO SCH (08:21)
[2016-09-20] MEDS: CA CARBONATE (250 MG/ML) 5ML CUP NGT SCH ×2 (08:21→20:51)
[2016-09-20] MEDS: AMLODIPINE 5 MG TAB PO SCH ×2 (08:22→20:51)
[2016-09-20 08:56] LABS: ADD SCAN DIFF NO
[2016-09-20 09:01] LABS: BASOPHIL # 0.1 10^3/ul (0.0-0.1); BASOPHILS % 0.6 % (0.0-2.0); EOSINOPHILS # 0.8 10^3/ul (0.0-0.5); EOSINOPHILS % 5.8 % (0.0-7.0); HEMATOCRIT 28.7 % (42.0-52.0); HEMOGLOBIN 8.9 g/dl (14.0-18.0); LYMPHOCYTES # 4.7 10^3/ul (0.8-2.9); LYMPHOCYTES % 35.1 % (15.0-51.0); MEAN CORPUSCULAR HEMOGLOBIN 29.8 pg (29.0-33.0); MEAN PLATELET VOLUME 10.5 fl (7.4-10.4); MONOCYTE # 0.9 10^3/ul (0.3-0.9); MONOCYTES % 6.5 % (0.0-11.0); NEUTROPHIL # 6.9 10^3/ul (1.6-7.5); PLATELET COUNT 432 10^3/UL (140-415); RED BLOOD COUNT 2.99 10^6/ul (4.70-6.10); RED CELL DISTRIBUTION WIDTH 15.8 % (11.5-14.5); WHITE BLOOD COUNT 13.4 10^3/ul (4.8-10.8)
[2016-09-20 09:21] LABS: CREATININE 1.17 mg/dl (0.61-1.24)
--- NOTE | 2016-09-20 10:15 | PN ---
Date/Time of Note Date/Time of Note DATE: 09/20/16 TIME: 10:12 Assessment/Plan VTE Prophylaxis VTE Prophylaxis Intervention: other Lines/Catheters IV Catheter Type (from [facility]): Saline Lock Urinary Cath still in place: No Assessment/Plan Chief Complaint/Hosp Course Assessment/Plan: 60 M admitted in PEA arrest 2/2 severe metabolic acidosis with ROSC following CPR. Etiology of metabolic acidosis possibly from septic shock/ lactic acidosis? from aspiration pna? Metabolic acidosis resolved following temporary HD; had fever 7.12, suspect 2/2 proteus UTI with hematologic spread, on antibiotics 0. proteus bacteremia: likely source.abx as per ID. currently rocephin, to be converted to cipro for 14 days of total abx 1. sp PEA cardiac arrest 2/2 severe metabolic acidosis. The patient is being followed by Cardiology. As per Cardiology, there is no cardiac etiology to suggest the cardiac arrest. Patient however having positive orthostatic hypotension the last few days, especially when working with physical therapy. Lasix has been stopped now. - monitor, continue current cardiac medications, follow-up cardiology recommendations -Continue physical therapy 2. Acute on chronic diastolic heart failure. Improved with diuresis, again, because of hypotension, now off Lasix for -Monitor, follow-up cardiology recommendation as well. 3. Acute kidney injury that required temporary hemodialysis. sp HD 4. Essential hypertension. Continue antihypertensives. 5. Acute encephalopathy secondary to #1, RESOLVED 6. Acute respiratory failure with ARDS and pulmonary edema, status post mechanical ventilation, SP EXTUBATION 7. Status post sepsis, probably secondary to underlying aspiration pneumonia. RESOLVED 8. Hypothyroidism, severe. Continue Synthroid. 9. Debility. Physical therapy is recommending [facility] acute rehabilitation unit for further rehabilitation. 10. Normocytic normochromic anemia. monitor 11. Elevated BGs. Hemoglobin A1c 5.0. Continue sliding scale insulin. 12. Occlusive thrombosis of the left cephalic vein, and now positive lower extremity DVT-continue Xarelto (likely will need 6 months of treatment with this medicine) regular diet DVT prophylaxis. + DVT -Xarelto Plan-f/u with CM -per physical therapy, patient apparently not safe for discharge home at this point. We are going to have to re-evaluate for [facility] placement-case management working on placement. Sister otherwise has been willing to take patient back to the [facility] in [place] once patient is able to be discharged and is medically cleared. Continue current management. Disability paperwork also completed. Problems: Subjective 24 Hr Interval Summary Free Text/Dictation Patient is seen by cardiology team yesterday. No acute events overnight. Exam/Review of Systems Vital Signs Vitals Vital Signs Date Time Temp Pulse Resp B/P Pulse Ox O2 Delivery O2 Flow Rate FiO2 09/20/16 07:55 89 20 98 21 09/20/16 07:53 98.2 129/77 Intake and Output 09/19/16 09/19/16 09/20/16 15:00 23:00 07:00 Intake Total 720 ml 480 ml Output Total 300 ml 850 ml Balance 420 ml -370 ml Exam Lying in bed, Nad PERRLA, EOMI no mrg lungs clear abd soft no rashes Positive lower extremity edema left greater than right Results Result Diagram: 09/20/16 0835 09/20/16 0835 Results 24 hrs Laboratory Tests Test 09/19/16 12:01 09/19/16 17:19 09/19/16 20:08 09/20/16 08:20 Bedside Glucose 98 113 133 101 Test 09/20/16 08:35 White Blood Count 13.4 #H Red Blood Count 2.99 L Hemoglobin 8.9 L Hematocrit 28.7 L Mean Corpuscular Volume 96.0 Mean Corpuscular Hemoglobin 29.8 Mean Corpuscular Hemoglobin Concent 31.0 L Red Cell Distribution Width 15.8 H Platelet Count 432 H Mean Platelet Volume 10.5 H Neutrophils % 51.0 Lymphocytes % 35.1 Monocytes % 6.5 Eosinophils % 5.8 Basophils % 0.6 Nucleated Red Blood Cells % 0.0 Neutrophils # 6.9 Lymphocytes # 4.7 H Monocytes # 0.9 Eosinophils # 0.8 H Basophils # 0.1 Nucleated Red Blood Cells # 0.0 Sodium Level 144 Potassium Level 4.0 Chloride Level 106 Carbon Dioxide Level 23 Anion Gap 19 H Blood Urea Nitrogen 37 H Creatinine 1.17 Glucose Level 98 Calcium Level 11.0 H Medications Medications Current Medications Ondansetron HCl (Zofran Inj) 4 mg Q6H PRN IV NAUSEA AND/OR VOMITING; Start at 03:00 Metoclopramide HCl (Reglan) 10 mg Q6H PRN IV NAUSEA AND/OR VOMITING; Start at 03:00 Acetaminophen (Tylenol Tab) 650 mg Q6H PRN PO PAIN LEVEL 1-3 OR FEVER Last administered on 09/13/16 22:22; Admin Dose 650 MG; Start 08/01/16 at 03:00 Acetaminophen (Tylenol Supp) 650 mg Q4H PRN [place] PAIN LEVEL 1-3 OR FEVER; Start 08/01/16 at 06:30 Miscellaneous Information 1 ea NOTE XX ; Start 08/02/16 at 09:00 Glucose (Glutose) 15 gm Q15M PRN PO DECREASED GLUCOSE; Start 08/02/16 at 09:00 Glucose (Glutose) 22.5 gm Q15M PRN PO DECREASED GLUCOSE; Start 08/02/16 at 09:00 Dextrose (D50w Syringe) 25 ml Q15M PRN IV DECREASED GLUCOSE Last administered on 08/16/16 06:30; Admin Dose 25 ML; Start 08/02/16 at 09:00 Dextrose (D50w Syringe) 50 ml Q15M PRN IV DECREASED GLUCOSE; Start 08/02/16 at 09:00 Glucagon (Glucagen) 1 mg Q15M PRN IM DECREASED GLUCOSE; Start 08/02/16 at 09:00 Glucose (Glutose) 15 gm Q15M PRN BUCCAL DECREASED GLUCOSE; Start 08/02/16 at 09: 00 Calcium Carbonate (Ca Carbonate) 1,250 mg Q12 NGT Last administered on 08:21; Admin Dose 1,250 MG; Start 08/11/16 at 09:00 IV Flush (NS 10 ml) 10 ml PRN PRN IV FLUSH LINE; Start 08/11/16 at 20:00 Pantoprazole (Protonix Tab) 40 mg DAILY@06 PO Last administered on 09/20/16 05 :32; Admin Dose 40 MG; Start 08/18/16 at 06:00 Lorazepam (Ativan) 0.5 mg Q8H PRN PO ANXIETY; Start 08/19/16 at 14:00 Losartan Potassium (Cozaar) 50 mg DAILY PO Last administered on 09/20/16 08:21 ; Admin Dose 50 MG; Start 08/20/16 at 09:00 Amlodipine Besylate (Norvasc) 5 mg BID PO Last administered on 09/20/16 08:22 ; Admin Dose 5 MG; Start 08/23/16 at 21:00 Polyethylene Glycol (Miralax) 17 gm BID PO Last administered on 09/20/16 08:21 ; Admin Dose 17 GM; Start 08/26/16 at 09:00 Bisacodyl (Dulcolax) 10 mg DAILY PRN PO CONSTIPATION Last administered on 16:27; Admin Dose 10 MG; Start 08/26/16 at 08:00 Levothyroxine Sodium (Synthroid) 200 mcg DAILY@06 PO Last administered on 05:32; Admin Dose 200 MCG; Start 09/09/16 at 06:00 Liothyronine Sodium (Cytomel) 5 mcg BID PO Last administered on 09/20/16 08:21 ; Admin Dose 5 MCG; Start 09/16/16 at 09:00 Vitamin A/Vitamin D (Vitamin A & D Oint) 1 applic BID TOP Last administered on 09/20/16 08:21; Admin Dose 1 APPLIC; Start 09/16/16 at 21:00 Levofloxacin (Levaquin) 500 mg DAILY@06 PO Last administered on 09/20/16 05:32 ; Admin Dose 500 MG; Start 09/18/16 at 06:00 CAM COLON Sep 20, 2016 10:15
[2016-09-20 13:07] VITALS: BP 120/66; RESP 18
--- NOTE | 2016-09-20 14:41 | CONS ---
Date/Time of Note Date/Time of Note DATE: 09/20/16 TIME: 14:39 Assessment/Plan Assessment/Plan Chief Complaint/Hosp Course No acute changes, alert, eating lunch, denies pain discomfort, no fevers Antimicrobials: Levaquin PHYSICAL EXAMINATION: GENERAL: Obese, well-developed middle-aged man in no distress. HEENT: Head atraumatic, normocephalic. Sclerae anicteric. Buccal mucosa dry. NECK: Supple, trachea midline. CHEST: Rise symmetrical. Breath sounds diminished to bases. HEART: S1, S2. ABDOMEN: Soft. Bowel tones active EXTREMITIES: Bilateral edema. ASSESSMENT: 1. Proteus mirabilis UTI with bacteremia 2. S/p acute respiratory failure and septic shock. 3. Acute kidney injury status post hemodialysis, now off 4. Right upper lobe pneumonia 4. Status post cardiopulmonary arrest. 5. History of ETOH abuse. 7. Morbid obesity PLAN: The patient remains stable, repeat blood cultures negative, will change Levaquin to Zosyn for healthcare associated pneumonia repeat chest x-ray in a.m. , encourage incentive spirometry use DW patient Problems: Consultation Date/Type/Reason Admit Date/Time August 01, 2016 at 00:50 Initial Consult Date 08/01/16 Type of Consultation: ID Exam/Review of Systems Vital Signs Vitals Vital Signs Date Time Temp Pulse Resp B/P Pulse Ox O2 Delivery O2 Flow Rate FiO2 09/20/16 13:28 92 18 97 21 09/20/16 13:07 98.0 120/66 Intake and Output 09/19/16 09/19/16 09/20/16 15:00 23:00 07:00 Intake Total 720 ml 480 ml Output Total 300 ml 850 ml Balance 420 ml -370 ml Results Result Diagram: 09/20/16 0835 09/20/16 0835 Results 24 hrs Laboratory Tests Test 09/19/16 17:19 09/19/16 20:08 09/20/16 08:20 09/20/16 08:35 Bedside Glucose 113 133 101 White Blood Count 13.4 #H Red Blood Count 2.99 L Hemoglobin 8.9 L Hematocrit 28.7 L Mean Corpuscular Volume 96.0 Mean Corpuscular Hemoglobin 29.8 Mean Corpuscular Hemoglobin Concent 31.0 L Red Cell Distribution Width 15.8 H Platelet Count 432 H Mean Platelet Volume 10.5 H Neutrophils % 51.0 Lymphocytes % 35.1 Monocytes % 6.5 Eosinophils % 5.8 Basophils % 0.6 Nucleated Red Blood Cells % 0.0 Neutrophils # 6.9 Lymphocytes # 4.7 H Monocytes # 0.9 Eosinophils # 0.8 H Basophils # 0.1 Nucleated Red Blood Cells # 0.0 Sodium Level 144 Potassium Level 4.0 Chloride Level 106 Carbon Dioxide Level 23 Anion Gap 19 H Blood Urea Nitrogen 37 H Creatinine 1.17 Glucose Level 98 Calcium Level 11.0 H Test 09/20/16 11:53 Bedside Glucose 101 Medications Medications Current Medications Ondansetron HCl (Zofran Inj) 4 mg Q6H PRN IV NAUSEA AND/OR VOMITING; Start at 03:00 Metoclopramide HCl (Reglan) 10 mg Q6H PRN IV NAUSEA AND/OR VOMITING; Start at 03:00 Acetaminophen (Tylenol Tab) 650 mg Q6H PRN PO PAIN LEVEL 1-3 OR FEVER Last administered on 09/13/16 22:22; Admin Dose 650 MG; Start 08/01/16 at 03:00 Acetaminophen (Tylenol Supp) 650 mg Q4H PRN [place] PAIN LEVEL 1-3 OR FEVER; Start 08/01/16 at 06:30 Miscellaneous Information 1 ea NOTE XX ; Start 08/02/16 at 09:00 Glucose (Glutose) 15 gm Q15M PRN PO DECREASED GLUCOSE; Start 08/02/16 at 09:00 Glucose (Glutose) 22.5 gm Q15M PRN PO DECREASED GLUCOSE; Start 08/02/16 at 09:00 Dextrose (D50w Syringe) 25 ml Q15M PRN IV DECREASED GLUCOSE Last administered on 08/16/16 06:30; Admin Dose 25 ML; Start 08/02/16 at 09:00 Dextrose (D50w Syringe) 50 ml Q15M PRN IV DECREASED GLUCOSE; Start 08/02/16 at 09:00 Glucagon (Glucagen) 1 mg Q15M PRN IM DECREASED GLUCOSE; Start 08/02/16 at 09:00 Glucose (Glutose) 15 gm Q15M PRN BUCCAL DECREASED GLUCOSE; Start 08/02/16 at 09: 00 Calcium Carbonate (Ca Carbonate) 1,250 mg Q12 NGT Last administered on 08:21; Admin Dose 1,250 MG; Start 08/11/16 at 09:00 IV Flush (NS 10 ml) 10 ml PRN PRN IV FLUSH LINE; Start 08/11/16 at 20:00 Pantoprazole (Protonix Tab) 40 mg DAILY@06 PO Last administered on 09/20/16 05 :32; Admin Dose 40 MG; Start 08/18/16 at 06:00 Lorazepam (Ativan) 0.5 mg Q8H PRN PO ANXIETY; Start 08/19/16 at 14:00 Losartan Potassium (Cozaar) 50 mg DAILY PO Last administered on 09/20/16 08:21 ; Admin Dose 50 MG; Start 08/20/16 at 09:00 Amlodipine Besylate (Norvasc) 5 mg BID PO Last administered on 09/20/16 08:22 ; Admin Dose 5 MG; Start 08/23/16 at 21:00 Polyethylene Glycol (Miralax) 17 gm BID PO Last administered on 09/20/16 08:21 ; Admin Dose 17 GM; Start 08/26/16 at 09:00 Bisacodyl (Dulcolax) 10 mg DAILY PRN PO CONSTIPATION Last administered on 16:27; Admin Dose 10 MG; Start 08/26/16 at 08:00 Levothyroxine Sodium (Synthroid) 200 mcg DAILY@06 PO Last administered on 05:32; Admin Dose 200 MCG; Start 09/09/16 at 06:00 Liothyronine Sodium (Cytomel) 5 mcg BID PO Last administered on 09/20/16 08:21 ; Admin Dose 5 MCG; Start 09/16/16 at 09:00 Vitamin A/Vitamin D (Vitamin A & D Oint) 1 applic BID TOP Last administered on 09/20/16 08:21; Admin Dose 1 APPLIC; Start 09/16/16 at 21:00 Levofloxacin (Levaquin) 500 mg DAILY@06 PO Last administered on 09/20/16 05:32 ; Admin Dose 500 MG; Start 09/18/16 at 06:00 RADHA ESCALANTE NP Sep 20, 2016 14:40
[2016-09-20 20:25] VITALS: BP 134/80; RESP 18
[2016-09-20] MEDS: PIPER-TAZO 3.375 GM IV (PMX) 100 ML IVPB SCH (22:23)
[2016-09-21 03:12] VITALS: BP 125/76; RESP 18
[2016-09-21] MEDS: PANTOPRAZOLE (EC) 40 MG TAB PO SCH (05:33)
[2016-09-21] MEDS: LEVOTHYROXINE 100 MCG TAB PO SCH (05:33)
[2016-09-21] MEDS: PIPER-TAZO 3.375 GM IV (PMX) 100 ML IVPB SCH ×3 (05:33→22:19)
[2016-09-21 07:49] VITALS: BP 137/77; RESP 18
[2016-09-21] MEDS: INSULIN ASPART [NOVOLOG] 3 ML PEN SC SCH ×4 (07:52→21:00)
[2016-09-21] MEDS: LOSARTAN 50 MG TAB PO SCH (08:52)
--- NOTE | 2016-09-21 08:52 | RADRPT ---
PROCEDURE: XR Chest. CLINICAL INDICATION: r/o pna TECHNIQUE: Single frontal view of the chest was obtained COMPARISON: Chest x-ray 09/12/2016 FINDINGS: The cardiomediastinal silhouette is within normal limits. There are atherosclerotic calcifications of the thoracic aorta. Biapical pleural parenchymal scarring is noted. No pneumothorax, significant pleural effusion, or new parenchymal consolidation is identified. Mild diffuse prominence of interstitial markings bilaterally is stable and likely represents chronic interstitial lung disease. There is no evidence of pulmonary vascular congestion. There are degenerative changes of the visualized spine. IMPRESSION: Overall, no significant interval change as compared to prior chest x-ray of 09/12/2016. There is sta ble diffuse mild prominence of interstitial markings, possibly representing a component of chronic i nterstitial lung disease. RPTAT: PP Physician Barbie Date Time Electronically viewed and signed by Physician Barbie on 09/21/2016 08:52 MARICARMEN/
[2016-09-21] MEDS: AMLODIPINE 5 MG TAB PO SCH ×2 (08:53→21:13)
[2016-09-21] MEDS: RIVAROXABAN 15 MG TABLET PO SCH ×3 (08:53→19:46)
[2016-09-21] MEDS: LIOTHYRONINE 5 MCG TAB PO SCH ×2 (08:53→21:13)
[2016-09-21] MEDS: VITAMIN A & D 5 GM OINT PACKET TOP SCH ×2 (08:54→21:14)
[2016-09-21] MEDS: ALBUTEROL/IPRATROPIUM (NEB) 3 ML AMP HHN SCH ×3 (08:58→20:01)
[2016-09-21] MEDS: CA CARBONATE (250 MG/ML) 5ML CUP NGT SCH ×2 (08:58→21:13)
[2016-09-21] MEDS: POLYETHYLENE GLYCOL 17 GM PACKET PO SCH ×2 (08:58→21:00)
--- NOTE | 2016-09-21 09:52 | PN ---
Date/Time of Note Date/Time of Note DATE: 09/21/16 TIME: 09:49 Assessment/Plan VTE Prophylaxis VTE Prophylaxis Intervention: other (Xarelto) Lines/Catheters [facility] (from [facility] Saline Lock Urinary Cath still in place: No Assessment/Plan Chief Complaint/Hosp Course Assessment/Plan: 60 M admitted in PEA arrest 2/2 severe metabolic acidosis with ROSC following CPR. Etiology of metabolic acidosis possibly from septic shock/ lactic acidosis? from aspiration pna? Metabolic acidosis resolved following temporary HD; had fever 7.12, suspect 2/2 proteus UTI with hematologic spread, on antibiotics. 0. proteus bacteremia: likely source.abx as per ID. currently now on Zosyn, continue for now, follow-up infectious disease recommendations, this is also helping to treat upper respiratory infection 1. sp PEA cardiac arrest 2/2 severe metabolic acidosis. The patient is being followed by Cardiology. As per Cardiology, there is no cardiac etiology to suggest the cardiac arrest. Patient however having positive orthostatic hypotension the last few days, especially when working with physical therapy. Lasix has been stopped now. - monitor, continue current cardiac medications, follow-up cardiology recommendations -Continue physical therapy 2. Acute on chronic diastolic heart failure. Improved with diuresis, again, because of hypotension, now off Lasix for -Monitor, follow-up cardiology recommendation as well. 3. Acute kidney injury that required temporary hemodialysis 4. Essential hypertension. Continue antihypertensives. 5. Acute encephalopathy secondary to #1, RESOLVED 6. Acute respiratory failure with ARDS and pulmonary edema, status post mechanical ventilation, SP EXTUBATION 7. Status post sepsis, probably secondary to underlying aspiration pneumonia. RESOLVED 8. Hypothyroidism, severe. Continue Synthroid. 9. Debility. Physical therapy is recommending [facility] facility versus acute rehabilitation unit for further rehabilitation. 10. Normocytic normochromic anemia. monitor 11. Elevated BGs. Hemoglobin A1c 5.0. Continue sliding scale insulin. 12. Occlusive thrombosis of the left cephalic vein, and now positive lower extremity DVT-continue Xarelto (likely will need 6 months of treatment with this medicine) regular diet DVT prophylaxis. + DVT -Xarelto Plan-f/u with CM -per physical therapy, patient apparently not safe for discharge home at this point. Being reevaluated for [facility] facility placement-case management working on placement. Sister otherwise has been willing to take patient back to the [facility] in [place] once patient is able to be discharged and is medically cleared. Continue current management. Disability paperwork also completed. Problems: Subjective 24 Hr Interval Summary Free Text/Dictation Patient seen by cardiology team and physical therapy team yesterday. No acute events overnight. Exam/Review of Systems Vital Signs Vitals Vital Signs Date Time Temp Pulse Resp B/P Pulse Ox O2 Delivery O2 Flow Rate FiO2 09/21/16 08:58 96 18 93 21 09/21/16 07:49 98.1 137/77 Intake and Output 09/20/16 09/20/16 09/21/16 15:00 23:00 07:00 Intake Total 1220 ml Output Total 600 ml Balance 620 ml Exam Lying in bed, talking on the telephone, no acute distress PERRLA, EOMI no mrg lungs clear abd soft no rashes Positive lower extremity edema left greater than right Results Result Diagram: 09/20/16 0835 09/20/16 0835 Results 24 hrs Laboratory Tests Test 09/20/16 11:53 09/20/16 17:14 09/20/16 20:48 09/21/16 07:52 Bedside Glucose 101 99 124 83 Medications Medications Current Medications Ondansetron HCl (Zofran Inj) 4 mg Q6H PRN IV NAUSEA AND/OR VOMITING; Start at 03:00 Metoclopramide HCl (Reglan) 10 mg Q6H PRN IV NAUSEA AND/OR VOMITING; Start at 03:00 Acetaminophen (Tylenol Tab) 650 mg Q6H PRN PO PAIN LEVEL 1-3 OR FEVER Last administered on 09/13/16 22:22; Admin Dose 650 MG; Start 08/01/16 at 03:00 Acetaminophen (Tylenol Supp) 650 mg Q4H PRN [place] PAIN LEVEL 1-3 OR FEVER; Start 08/01/16 at 06:30 Miscellaneous Information 1 ea NOTE XX ; Start 08/02/16 at 09:00 Glucose (Glutose) 15 gm Q15M PRN PO DECREASED GLUCOSE; Start 08/02/16 at 09:00 Glucose (Glutose) 22.5 gm Q15M PRN PO DECREASED GLUCOSE; Start 08/02/16 at 09:00 Dextrose (D50w Syringe) 25 ml Q15M PRN IV DECREASED GLUCOSE Last administered on 08/16/16 06:30; Admin Dose 25 ML; Start 08/02/16 at 09:00 Dextrose (D50w Syringe) 50 ml Q15M PRN IV DECREASED GLUCOSE; Start 08/02/16 at 09:00 Glucagon (Glucagen) 1 mg Q15M PRN IM DECREASED GLUCOSE; Start 08/02/16 at 09:00 Glucose (Glutose) 15 gm Q15M PRN BUCCAL DECREASED GLUCOSE; Start 08/02/16 at 09: 00 Calcium Carbonate (Ca Carbonate) 1,250 mg Q12 NGT Last administered on 08:58; Admin Dose 1,250 MG; Start 08/11/16 at 09:00 IV Flush (NS 10 ml) 10 ml PRN PRN IV FLUSH LINE; Start 08/11/16 at 20:00 Pantoprazole (Protonix Tab) 40 mg DAILY@06 PO Last administered on 09/21/16 05 :33; Admin Dose 40 MG; Start 08/18/16 at 06:00 Lorazepam (Ativan) 0.5 mg Q8H PRN PO ANXIETY; Start 08/19/16 at 14:00 Losartan Potassium (Cozaar) 50 mg DAILY PO Last administered on 09/21/16 08:52 ; Admin Dose 50 MG; Start 08/20/16 at 09:00 Amlodipine Besylate (Norvasc) 5 mg BID PO Last administered on 09/21/16 08:53 ; Admin Dose 5 MG; Start 08/23/16 at 21:00 Polyethylene Glycol (Miralax) 17 gm BID PO Last administered on 09/20/16 08:21 ; Admin Dose 17 GM; Start 08/26/16 at 09:00 Bisacodyl (Dulcolax) 10 mg DAILY PRN PO CONSTIPATION Last administered on 16:27; Admin Dose 10 MG; Start 08/26/16 at 08:00 Levothyroxine Sodium (Synthroid) 200 mcg DAILY@06 PO Last administered on 05:33; Admin Dose 200 MCG; Start 09/09/16 at 06:00 Liothyronine Sodium (Cytomel) 5 mcg BID PO Last administered on 09/21/16 08:53 ; Admin Dose 5 MCG; Start 09/16/16 at 09:00 Vitamin A/Vitamin D 1 applic 1 applic BID TOP Last administered on 09/21/16 08 :54; Admin Dose 1 APPLIC; Start 09/16/16 at 21:00 Piperacillin Sod/ Tazobactam Sod (Zosyn 3.375gm/ 100 ml (Pmx)) 100 ml @ 200 mls /hr Q8 IVPB Last administered on 09/21/16 05:33; Admin Dose 200 MLS/HR; Start 09/20/16 at 22:00 CAM COLON Sep 21, 2016 09:52
--- NOTE | 2016-09-21 11:41 | CONS ---
Date/Time of Note Date/Time of Note DATE: 09/21/16 TIME: 11:40 Assessment/Plan Assessment/Plan Chief Complaint/Hosp Course Orthostatic hypotension: suspect from volume depletion due to ongoing diuretics. Resolved after holding diuretics PEA cardiac arrest: secondary to severe metabolic acidosis. No VT/VF or EKG changes to suggest primary cardiac etiology. Trops ok, EF preserved. Acute respiratory failure: intubated during code.Likely ARDS and some component of fluid overload. Now extubated 08/15 Acute diastolic heart failure: resolved with diuresis Severe metabolic acidosis: likely was the culprit for the arrest. Resolved Shock: septic.Off pressors. Resolved Acute renal failure: unclear etiology. Was on intermittent HD. Good UOP. HD stopped. Now resolved Hypoglycemia Hypothyroidism HTN -continue to hold lasix unless shows signs of volume overload -amlodipine 5mg BID -cozaar 50mg Problems: Consultation Date/Type/Reason Admit Date/Time August 01, 2016 at 00:50 Initial Consult Date 08/01/16 Type of Consultation: Cardiology 24 HR Interval Summary Free Text/Dictation Worked with PT this am. No hypotension or dizziness. Exam/Review of Systems Vital Signs Vitals Vital Signs Date Time Temp Pulse Resp B/P Pulse Ox O2 Delivery O2 Flow Rate FiO2 09/21/16 08:58 96 18 93 21 09/21/16 07:49 98.1 137/77 Intake and Output 09/20/16 09/20/16 09/21/16 15:00 23:00 07:00 Intake Total 1220 ml Output Total 600 ml Balance 620 ml Exam Constitutional: alert, oriented Psych: no complaints Head: atraumatic, normocephalic Neck: No jvd Respiratory: clear to auscultation, No crackles/rales Cardiovascular: regular rate and rhythm, No edema Gastrointestinal: non-tender, soft Neurological: nl mental status, nl speech Results Result Diagram: 09/20/16 0835 09/20/16 0835 Results 24 hrs Laboratory Tests Test 09/20/16 11:53 09/20/16 17:14 09/20/16 20:48 09/21/16 07:52 Bedside Glucose 101 99 124 83 Medications Medications Current Medications Ondansetron HCl (Zofran Inj) 4 mg Q6H PRN IV NAUSEA AND/OR VOMITING; Start at 03:00 Metoclopramide HCl (Reglan) 10 mg Q6H PRN IV NAUSEA AND/OR VOMITING; Start at 03:00 Acetaminophen (Tylenol Tab) 650 mg Q6H PRN PO PAIN LEVEL 1-3 OR FEVER Last administered on 09/13/16 22:22; Admin Dose 650 MG; Start 08/01/16 at 03:00 Acetaminophen (Tylenol Supp) 650 mg Q4H PRN [place] PAIN LEVEL 1-3 OR FEVER; Start 08/01/16 at 06:30 Miscellaneous Information 1 ea NOTE XX ; Start 08/02/16 at 09:00 Glucose (Glutose) 15 gm Q15M PRN PO DECREASED GLUCOSE; Start 08/02/16 at 09:00 Glucose (Glutose) 22.5 gm Q15M PRN PO DECREASED GLUCOSE; Start 08/02/16 at 09:00 Dextrose (D50w Syringe) 25 ml Q15M PRN IV DECREASED GLUCOSE Last administered on 08/16/16 06:30; Admin Dose 25 ML; Start 08/02/16 at 09:00 Dextrose (D50w Syringe) 50 ml Q15M PRN IV DECREASED GLUCOSE; Start 08/02/16 at 09:00 Glucagon (Glucagen) 1 mg Q15M PRN IM DECREASED GLUCOSE; Start 08/02/16 at 09:00 Glucose (Glutose) 15 gm Q15M PRN BUCCAL DECREASED GLUCOSE; Start 08/02/16 at 09: 00 Calcium Carbonate (Ca Carbonate) 1,250 mg Q12 NGT Last administered on 08:58; Admin Dose 1,250 MG; Start 08/11/16 at 09:00 IV Flush (NS 10 ml) 10 ml PRN PRN IV FLUSH LINE; Start 08/11/16 at 20:00 Pantoprazole (Protonix Tab) 40 mg DAILY@06 PO Last administered on 09/21/16 05 :33; Admin Dose 40 MG; Start 08/18/16 at 06:00 Lorazepam (Ativan) 0.5 mg Q8H PRN PO ANXIETY; Start 08/19/16 at 14:00 Losartan Potassium (Cozaar) 50 mg DAILY PO Last administered on 09/21/16 08:52 ; Admin Dose 50 MG; Start 08/20/16 at 09:00 Amlodipine Besylate (Norvasc) 5 mg BID PO Last administered on 09/21/16 08:53 ; Admin Dose 5 MG; Start 08/23/16 at 21:00 Polyethylene Glycol (Miralax) 17 gm BID PO Last administered on 09/20/16 08:21 ; Admin Dose 17 GM; Start 08/26/16 at 09:00 Bisacodyl (Dulcolax) 10 mg DAILY PRN PO CONSTIPATION Last administered on 16:27; Admin Dose 10 MG; Start 08/26/16 at 08:00 Levothyroxine Sodium (Synthroid) 200 mcg DAILY@06 PO Last administered on 05:33; Admin Dose 200 MCG; Start 09/09/16 at 06:00 Liothyronine Sodium (Cytomel) 5 mcg BID PO Last administered on 09/21/16 08:53 ; Admin Dose 5 MCG; Start 09/16/16 at 09:00 Vitamin A/Vitamin D 1 applic 1 applic BID TOP Last administered on 09/21/16 08 :54; Admin Dose 1 APPLIC; Start 09/16/16 at 21:00 Piperacillin Sod/ Tazobactam Sod (Zosyn 3.375gm/ 100 ml (Pmx)) 100 ml @ 200 mls /hr Q8 IVPB Last administered on 09/21/16 05:33; Admin Dose 200 MLS/HR; Start 09/20/16 at 22:00 SEPIDEH HAN Sep 21, 2016 11:41
[2016-09-21 14:11] VITALS: BP 121/72; RESP 18
--- NOTE | 2016-09-21 15:21 | CONS ---
Date/Time of Note Date/Time of Note DATE: 09/21/16 TIME: 15:19 Assessment/Plan Assessment/Plan Chief Complaint/Hosp Course Alert, getting respiratory treatment, family at bedside, no fevers Antimicrobials: Zosyn PHYSICAL EXAMINATION: GENERAL: Obese, well-developed middle-aged man in no distress. HEENT: Head atraumatic, normocephalic. Sclerae anicteric. Buccal mucosa dry. NECK: Supple, trachea midline. CHEST: Rise symmetrical. Breath sounds diminished to bases. HEART: S1, S2. ABDOMEN: Soft. Bowel tones active EXTREMITIES: Bilateral edema. ASSESSMENT: 1. Proteus mirabilis UTI with bacteremia 2. S/p acute respiratory failure and septic shock. 3. Acute kidney injury status post hemodialysis, now off 4. Right upper lobe pneumonia 4. Status post cardiopulmonary arrest. 5. History of ETOH abuse. 7. Morbid obesity PLAN: The patient remains stable, continue Zosyn for healthcare associated pneumonia, follow chest x-ray, encourage incentive spirometry use, pulmonary, cardiology recommendations DW patient and family at bedside Problems: Consultation Date/Type/Reason Admit Date/Time August 01, 2016 at 00:50 Initial Consult Date 08/01/16 Type of Consultation: id Exam/Review of Systems Vital Signs Vitals Vital Signs Date Time Temp Pulse Resp B/P Pulse Ox O2 Delivery O2 Flow Rate FiO2 09/21/16 14:11 98.5 91 18 121/72 93 09/21/16 08:58 21 Intake and Output 09/20/16 09/20/16 09/21/16 15:00 23:00 07:00 Intake Total 1220 ml Output Total 600 ml Balance 620 ml Results Result Diagram: 09/20/16 0835 09/20/16 0835 Results 24 hrs Laboratory Tests Test 09/20/16 17:14 09/20/16 20:48 09/21/16 07:52 09/21/16 11:52 Bedside Glucose 99 124 83 97 Medications Medications Current Medications Ondansetron HCl (Zofran Inj) 4 mg Q6H PRN IV NAUSEA AND/OR VOMITING; Start at 03:00 Metoclopramide HCl (Reglan) 10 mg Q6H PRN IV NAUSEA AND/OR VOMITING; Start at 03:00 Acetaminophen (Tylenol Tab) 650 mg Q6H PRN PO PAIN LEVEL 1-3 OR FEVER Last administered on 09/13/16 22:22; Admin Dose 650 MG; Start 08/01/16 at 03:00 Acetaminophen (Tylenol Supp) 650 mg Q4H PRN [place] PAIN LEVEL 1-3 OR FEVER; Start 08/01/16 at 06:30 Miscellaneous Information 1 ea NOTE XX ; Start 08/02/16 at 09:00 Glucose (Glutose) 15 gm Q15M PRN PO DECREASED GLUCOSE; Start 08/02/16 at 09:00 Glucose (Glutose) 22.5 gm Q15M PRN PO DECREASED GLUCOSE; Start 08/02/16 at 09:00 Dextrose (D50w Syringe) 25 ml Q15M PRN IV DECREASED GLUCOSE Last administered on 08/16/16 06:30; Admin Dose 25 ML; Start 08/02/16 at 09:00 Dextrose (D50w Syringe) 50 ml Q15M PRN IV DECREASED GLUCOSE; Start 08/02/16 at 09:00 Glucagon (Glucagen) 1 mg Q15M PRN IM DECREASED GLUCOSE; Start 08/02/16 at 09:00 Glucose (Glutose) 15 gm Q15M PRN BUCCAL DECREASED GLUCOSE; Start 08/02/16 at 09: 00 Calcium Carbonate (Ca Carbonate) 1,250 mg Q12 NGT Last administered on 08:58; Admin Dose 1,250 MG; Start 08/11/16 at 09:00 IV Flush (NS 10 ml) 10 ml PRN PRN IV FLUSH LINE; Start 08/11/16 at 20:00 Pantoprazole (Protonix Tab) 40 mg DAILY@06 PO Last administered on 09/21/16 05 :33; Admin Dose 40 MG; Start 08/18/16 at 06:00 Lorazepam (Ativan) 0.5 mg Q8H PRN PO ANXIETY; Start 08/19/16 at 14:00 Losartan Potassium (Cozaar) 50 mg DAILY PO Last administered on 09/21/16 08:52 ; Admin Dose 50 MG; Start 08/20/16 at 09:00 Amlodipine Besylate (Norvasc) 5 mg BID PO Last administered on 09/21/16 08:53 ; Admin Dose 5 MG; Start 08/23/16 at 21:00 Polyethylene Glycol (Miralax) 17 gm BID PO Last administered on 09/20/16 08:21 ; Admin Dose 17 GM; Start 08/26/16 at 09:00 Bisacodyl (Dulcolax) 10 mg DAILY PRN PO CONSTIPATION Last administered on 16:27; Admin Dose 10 MG; Start 08/26/16 at 08:00 Levothyroxine Sodium (Synthroid) 200 mcg DAILY@06 PO Last administered on 05:33; Admin Dose 200 MCG; Start 09/09/16 at 06:00 Liothyronine Sodium (Cytomel) 5 mcg BID PO Last administered on 09/21/16 08:53 ; Admin Dose 5 MCG; Start 09/16/16 at 09:00 Vitamin A/Vitamin D 1 applic 1 applic BID TOP Last administered on 09/21/16 08 :54; Admin Dose 1 APPLIC; Start 09/16/16 at 21:00 Piperacillin Sod/ Tazobactam Sod (Zosyn 3.375gm/ 100 ml (Pmx)) 100 ml @ 200 mls /hr Q8 IVPB Last administered on 09/21/16 13:36; Admin Dose 200 MLS/HR; Start 09/20/16 at 22:00 RADHA ESCALANTE NP Sep 21, 2016 15:21
[2016-09-21 20:04] VITALS: BP 130/76; RESP 18
[2016-09-22 02:08] VITALS: BP 118/73; RESP 16
[2016-09-22] MEDS: LEVOTHYROXINE 100 MCG TAB PO SCH (06:23)
[2016-09-22] MEDS: PIPER-TAZO 3.375 GM IV (PMX) 100 ML IVPB SCH ×3 (06:23→22:14)
[2016-09-22] MEDS: PANTOPRAZOLE (EC) 40 MG TAB PO SCH (06:23)
[2016-09-22 06:40] LABS: CALCIUM 10.6 mg/dl (8.4-10.2); CREATININE 1.14 mg/dl (0.61-1.24); POTASSIUM 4.6 mmol/L (3.5-5.1)
[2016-09-22 07:46] VITALS: BP 133/75; RESP 18
[2016-09-22] MEDS: INSULIN ASPART [NOVOLOG] 3 ML PEN SC SCH ×4 (07:58→21:00)
[2016-09-22] MEDS: POLYETHYLENE GLYCOL 17 GM PACKET PO SCH ×2 (09:00→21:00)
[2016-09-22] MEDS: ALBUTEROL/IPRATROPIUM (NEB) 3 ML AMP HHN SCH ×3 (09:02→20:22)
[2016-09-22] MEDS: LIOTHYRONINE 5 MCG TAB PO SCH ×2 (09:19→21:11)
[2016-09-22] MEDS: LOSARTAN 50 MG TAB PO SCH (09:19)
[2016-09-22] MEDS: RIVAROXABAN 15 MG TABLET PO SCH ×2 (09:20→18:40)
[2016-09-22] MEDS: AMLODIPINE 5 MG TAB PO SCH ×2 (09:20→21:12)
[2016-09-22] MEDS: CA CARBONATE (250 MG/ML) 5ML CUP NGT SCH ×2 (09:20→21:11)
[2016-09-22] MEDS: VITAMIN A & D 5 GM OINT PACKET TOP SCH ×2 (09:21→21:11)
--- NOTE | 2016-09-22 13:02 | PN ---
Date/Time of Note Date/Time of Note DATE: 09/22/16 TIME: 13:00 Assessment/Plan VTE Prophylaxis VTE Prophylaxis Intervention: other (Xarelto) Lines/Catheters IV [facility] ([facility] Saline Lock Urinary Cath still in place: No Assessment/Plan Chief Complaint/Hosp Course Assessment/Plan: 60 M admitted in PEA arrest 2/2 severe metabolic acidosis with ROSC following CPR. Etiology of metabolic acidosis possibly from septic shock/ lactic acidosis? from aspiration pna? Metabolic acidosis resolved following temporary HD; had fever 7.12, suspect 2/2 proteus UTI with hematologic spread, on antibiotics. 0. proteus bacteremia: likely source.abx as per ID. currently now on Zosyn, continue for now, follow-up infectious disease recommendations, this is also helping to treat upper respiratory infection 1. sp PEA cardiac arrest 2/2 severe metabolic acidosis. The patient is being followed by Cardiology. As per Cardiology, there is no cardiac etiology to suggest the cardiac arrest. Patient however having positive orthostatic hypotension the last few days, especially when working with physical therapy. Lasix has been stopped, less orthostatic smpts now. - monitor, continue current cardiac medications, follow-up cardiology recommendations -Continue physical therapy 2. Acute on chronic diastolic heart failure. Improved with diuresis, again, because of hypotension, now off Lasix for -Monitor, follow-up cardiology recommendation as well. 3. Acute kidney injury that required temporary hemodialysis 4. Essential hypertension. Continue antihypertensives. 5. Acute encephalopathy secondary to #1, RESOLVED 6. Acute respiratory failure with ARDS and pulmonary edema, status post mechanical ventilation, SP EXTUBATION 7. Status post sepsis, probably secondary to underlying aspiration pneumonia. RESOLVED 8. Hypothyroidism, severe. Continue Synthroid. 9. Debility. Physical therapy is recommending nursing home facility versus acute rehabilitation unit for further rehabilitation. 10. Normocytic normochromic anemia. monitor 11. Elevated BGs. Hemoglobin A1c 5.0. Continue sliding scale insulin. 12. Occlusive thrombosis of the left cephalic vein, and now positive lower extremity DVT-continue Xarelto (likely will need 6 months of treatment with this medicine) regular diet DVT prophylaxis. + DVT -Xarelto Plan-f/u with CM -per physical therapy, patient apparently not safe for discharge home at this point. Being reevaluated for nursing home facility placement-case management working on placement. Sister otherwise has been willing to take patient back to the [facility] in [place] once patient is able to be discharged and is medically cleared. Continue current management. Disability paperwork also completed. Problems: Subjective 24 Hr Interval Summary Free Text/Dictation No acute events overnight. Exam/Review of Systems Vital Signs Vitals Vital Signs Date Time Temp Pulse Resp B/P Pulse Ox O2 Delivery O2 Flow Rate FiO2 09/22/16 09:02 100 18 97 21 09/22/16 07:46 98.4 133/75 Intake and Output 09/21/16 09/21/16 09/22/16 15:00 23:00 07:00 Intake Total 100 ml 1700 ml 300 ml Output Total 800 ml 1000 ml Balance 100 ml 900 ml -700 ml Exam Lying in bed, talking on the telephone, no acute distress PERRLA, EOMI no mrg lungs clear abd soft no rashes Positive lower extremity edema left greater than right Results Result Diagram: 09/20/16 0835 09/22/16 0523 Results 24 hrs Laboratory Tests Test 09/21/16 17:06 09/21/16 21:12 09/22/16 05:23 09/22/16 07:54 Bedside Glucose 98 110 82 Sodium Level 144 Potassium Level 4.6 Chloride Level 106 Carbon Dioxide Level 24 Anion Gap 19 H Blood Urea Nitrogen 33 H Creatinine 1.14 Glucose Level 87 Calcium Level 10.6 H Test 09/22/16 12:04 Bedside Glucose 99 Medications Medications Current Medications Ondansetron HCl (Zofran Inj) 4 mg Q6H PRN IV NAUSEA AND/OR VOMITING; Start at 03:00 Metoclopramide HCl (Reglan) 10 mg Q6H PRN IV NAUSEA AND/OR VOMITING; Start at 03:00 Acetaminophen (Tylenol Tab) 650 mg Q6H PRN PO PAIN LEVEL 1-3 OR FEVER Last administered on 09/13/16t 22:22; Admin Dose 650 MG; Start 08/01/16 at 03:00 Acetaminophen (Tylenol Supp) 650 mg Q4H PRN [place] PAIN LEVEL 1-3 OR FEVER; Start 08/01/16 at 06:30 Miscellaneous Information 1 ea NOTE XX ; Start 08/02/16 at 09:00 Glucose (Glutose) 15 gm Q15M PRN PO DECREASED GLUCOSE; Start 08/02/16 at 09:00 Glucose (Glutose) 22.5 gm Q15M PRN PO DECREASED GLUCOSE; Start 08/02/16 at 09:00 Dextrose (D50w Syringe) 25 ml Q15M PRN IV DECREASED GLUCOSE Last administered on 08/16/16 06:30; Admin Dose 25 ML; Start 08/02/16 at 09:00 Dextrose (D50w Syringe) 50 ml Q15M PRN IV DECREASED GLUCOSE; Start 08/02/16 at 09:00 Glucagon (Glucagen) 1 mg Q15M PRN IM DECREASED GLUCOSE; Start 08/02/16 at 09:00 Glucose (Glutose) 15 gm Q15M PRN BUCCAL DECREASED GLUCOSE; Start 08/02/16 at 09: 00 Calcium Carbonate (Ca Carbonate) 1,250 mg Q12 NGT Last administered on 09:20; Admin Dose 1,250 MG; Start 08/11/16 at 09:00 IV Flush (NS 10 ml) 10 ml PRN PRN IV FLUSH LINE; Start 08/11/16 at 20:00 Pantoprazole (Protonix Tab) 40 mg DAILY@06 PO Last administered on 09/22/16 06 :23; Admin Dose 40 MG; Start 08/18/16 at 06:00 Lorazepam (Ativan) 0.5 mg Q8H PRN PO ANXIETY; Start 08/19/16 at 14:00 Losartan Potassium (Cozaar) 50 mg DAILY PO Last administered on 09/22/16 09:19 ; Admin Dose 50 MG; Start 08/20/16 at 09:00 Amlodipine Besylate (Norvasc) 5 mg BID PO Last administered on 09/22/16 09:20 ; Admin Dose 5 MG; Start 08/23/16 at 21:00 Polyethylene Glycol (Miralax) 17 gm BID PO Last administered on 09/20/16 08:21 ; Admin Dose 17 GM; Start 08/26/16 at 09:00 Bisacodyl (Dulcolax) 10 mg DAILY PRN PO CONSTIPATION Last administered on 16:27; Admin Dose 10 MG; Start 08/26/16 at 08:00 Levothyroxine Sodium (Synthroid) 200 mcg DAILY@06 PO Last administered on 06:23; Admin Dose 200 MCG; Start 09/09/16 at 06:00 Liothyronine Sodium (Cytomel) 5 mcg BID PO Last administered on 09/22/16 09:19 ; Admin Dose 5 MCG; Start 09/16/16 at 09:00 Vitamin A/Vitamin D 1 applic 1 applic BID TOP Last administered on 09/22/16 09 :21; Admin Dose 1 APPLIC; Start 09/16/16 at 21:00 Piperacillin Sod/ Tazobactam Sod (Zosyn 3.375gm/ 100 ml (Pmx)) 100 ml @ 200 mls /hr Q8 IVPB Last administered on 09/22/16 06:23; Admin Dose 200 MLS/HR; Start 09/20/16 at 22:00 CAM COLON Sep 22, 2016 13:02
--- NOTE | 2016-09-22 14:07 | CONS ---
Date/Time of Note Date/Time of Note DATE: 09/22/16 TIME: 14:07 Assessment/Plan Assessment/Plan Chief Complaint/Hosp Course Alert, looks comfortable, family at bedside, no fevers Antimicrobials: Zosyn PHYSICAL EXAMINATION: GENERAL: Obese, well-developed middle-aged man in no distress. HEENT: Head atraumatic, normocephalic. Sclerae anicteric. Buccal mucosa dry. NECK: Supple, trachea midline. CHEST: Rise symmetrical. Breath sounds diminished to bases. HEART: S1, S2. ABDOMEN: Soft. Bowel tones active EXTREMITIES: Bilateral edema. ASSESSMENT: 1. Proteus mirabilis UTI with bacteremia 2. S/p acute respiratory failure and septic shock. 3. Acute kidney injury status post hemodialysis, now off 4. Right upper lobe pneumonia 4. Status post cardiopulmonary arrest. 5. History of ETOH abuse. 7. Morbid obesity PLAN: The patient remains stable, continue Zosyn for healthcare associated pneumonia, follow chest x-ray, encourage incentive spirometry use, pulmonary, cardiology recommendations DW patient and family at bedside Problems: Consultation Date/Type/Reason Admit Date/Time August 01, 2016 at 00:50 Initial Consult Date 08/01/16 Type of Consultation: id Exam/Review of Systems Vital Signs Vitals Vital Signs Date Time Temp Pulse Resp B/P Pulse Ox O2 Delivery O2 Flow Rate FiO2 09/22/16 09:02 100 18 97 21 09/22/16 07:46 98.4 133/75 Intake and Output 09/21/16 09/21/16 09/22/16 15:00 23:00 07:00 Intake Total 100 ml 1700 ml 300 ml Output Total 800 ml 1000 ml Balance 100 ml 900 ml -700 ml Results Result Diagram: 09/20/16 0835 09/22/16 0523 Results 24 hrs Laboratory Tests Test 09/21/16 17:06 09/21/16 21:12 09/22/16 05:23 09/22/16 07:54 Bedside Glucose 98 110 82 Sodium Level 144 Potassium Level 4.6 Chloride Level 106 Carbon Dioxide Level 24 Anion Gap 19 H Blood Urea Nitrogen 33 H Creatinine 1.14 Glucose Level 87 Calcium Level 10.6 H Test 09/22/16 12:04 Bedside Glucose 99 Medications Medications Current Medications Ondansetron HCl (Zofran Inj) 4 mg Q6H PRN IV NAUSEA AND/OR VOMITING; Start at 03:00 Metoclopramide HCl (Reglan) 10 mg Q6H PRN IV NAUSEA AND/OR VOMITING; Start at 03:00 Acetaminophen (Tylenol Tab) 650 mg Q6H PRN PO PAIN LEVEL 1-3 OR FEVER Last administered on 09/13/16 22:22; Admin Dose 650 MG; Start 08/01/16 at 03:00 Acetaminophen (Tylenol Supp) 650 mg Q4H PRN [place] PAIN LEVEL 1-3 OR FEVER; Start 08/01/16 at 06:30 Miscellaneous Information 1 ea NOTE XX ; Start 08/02/16 at 09:00 Glucose (Glutose) 15 gm Q15M PRN PO DECREASED GLUCOSE; Start 08/02/16 at 09:00 Glucose (Glutose) 22.5 gm Q15M PRN PO DECREASED GLUCOSE; Start 08/02/16 at 09:00 Dextrose (D50w Syringe) 25 ml Q15M PRN IV DECREASED GLUCOSE Last administered on 08/16/16 06:30; Admin Dose 25 ML; Start 08/02/16 at 09:00 Dextrose (D50w Syringe) 50 ml Q15M PRN IV DECREASED GLUCOSE; Start 08/02/16 at 09:00 Glucagon (Glucagen) 1 mg Q15M PRN IM DECREASED GLUCOSE; Start 08/02/16 at 09:00 Glucose (Glutose) 15 gm Q15M PRN BUCCAL DECREASED GLUCOSE; Start 08/02/16 at 09: 00 Calcium Carbonate (Ca Carbonate) 1,250 mg Q12 NGT Last administered on 09:20; Admin Dose 1,250 MG; Start 08/11/16 at 09:00 IV Flush (NS 10 ml) 10 ml PRN PRN IV FLUSH LINE; Start 08/11/16 at 20:00 Pantoprazole (Protonix Tab) 40 mg DAILY@06 PO Last administered on 09/22/16 06 :23; Admin Dose 40 MG; Start 08/18/16 at 06:00 Lorazepam (Ativan) 0.5 mg Q8H PRN PO ANXIETY; Start 08/19/16 at 14:00 Losartan Potassium (Cozaar) 50 mg DAILY PO Last administered on 09/22/16 09:19 ; Admin Dose 50 MG; Start 08/20/16 at 09:00 Amlodipine Besylate (Norvasc) 5 mg BID PO Last administered on 09/22/16 09:20 ; Admin Dose 5 MG; Start 08/23/16 at 21:00 Polyethylene Glycol (Miralax) 17 gm BID PO Last administered on 09/20/16 08:21 ; Admin Dose 17 GM; Start 08/26/16 at 09:00 Bisacodyl (Dulcolax) 10 mg DAILY PRN PO CONSTIPATION Last administered on 16:27; Admin Dose 10 MG; Start 08/26/16 at 08:00 Levothyroxine Sodium (Synthroid) 200 mcg DAILY@06 PO Last administered on 06:23; Admin Dose 200 MCG; Start 09/09/16 at 06:00 Liothyronine Sodium (Cytomel) 5 mcg BID PO Last administered on 09/22/16 09:19 ; Admin Dose 5 MCG; Start 09/16/16 at 09:00 Vitamin A/Vitamin D 1 applic 1 applic BID TOP Last administered on 09/22/16 09 :21; Admin Dose 1 APPLIC; Start 09/16/16 at 21:00 Piperacillin Sod/ Tazobactam Sod (Zosyn 3.375gm/ 100 ml (Pmx)) 100 ml @ 200 mls /hr Q8 IVPB Last administered on 09/22/16 06:23; Admin Dose 200 MLS/HR; Start 09/20/16 at 22:00 RADHA ESCALANTE NP Sep 22, 2016 14:07
[2016-09-22 14:28] VITALS: BP 132/80; RESP 18
[2016-09-22 19:57] VITALS: BP 147/71; RESP 20
[2016-09-23 01:43] VITALS: BP 157/88; RESP 20
[2016-09-23] MEDS: PANTOPRAZOLE (EC) 40 MG TAB PO SCH (06:23)
[2016-09-23] MEDS: PIPER-TAZO 3.375 GM IV (PMX) 100 ML IVPB SCH ×3 (06:23→22:11)
[2016-09-23] MEDS: LEVOTHYROXINE 100 MCG TAB PO SCH (06:23)
[2016-09-23 07:37] LABS: CALCIUM 11.2 mg/dl (8.4-10.2); CREATININE 0.98 mg/dl (0.61-1.24); POTASSIUM 4.5 mmol/L (3.5-5.1)
[2016-09-23 07:50] VITALS: BP 128/74; RESP 19
[2016-09-23] MEDS: INSULIN ASPART [NOVOLOG] 3 ML PEN SC SCH ×4 (07:58→21:00)
[2016-09-23] MEDS: ALBUTEROL/IPRATROPIUM (NEB) 3 ML AMP HHN SCH ×3 (08:33→19:50)
[2016-09-23] MEDS: LIOTHYRONINE 5 MCG TAB PO SCH ×2 (08:40→21:00)
[2016-09-23] MEDS: LOSARTAN 50 MG TAB PO SCH (08:42)
[2016-09-23] MEDS: CA CARBONATE (250 MG/ML) 5ML CUP NGT SCH ×2 (08:44→21:01)
[2016-09-23] MEDS: RIVAROXABAN 15 MG TABLET PO SCH ×2 (08:44→17:42)
[2016-09-23] MEDS: AMLODIPINE 5 MG TAB PO SCH ×2 (08:44→21:00)
[2016-09-23] MEDS: VITAMIN A & D 5 GM OINT PACKET TOP SCH ×2 (08:47→21:01)
[2016-09-23] MEDS: POLYETHYLENE GLYCOL 17 GM PACKET PO SCH ×2 (08:48→21:00)
--- NOTE | 2016-09-23 10:09 | PN ---
Date/Time of Note Date/Time of Note DATE: 09/23/16 TIME: 10:03 Assessment/Plan VTE Prophylaxis VTE Prophylaxis Intervention: other (Xarelto) Lines/Catheters IV C[facility] Type (from [facility] Saline Lock Urinary Cath still in place: No Assessment/Plan Chief Complaint/Hosp Course Assessment/Plan: 60 M admitted in PEA arrest 2/2 severe metabolic acidosis with ROSC following CPR. Etiology of metabolic acidosis possibly from septic shock/ lactic acidosis? from aspiration pna? Metabolic acidosis resolved following temporary HD; had fever 7.12, suspect 2/2 proteus UTI with hematologic spread, on antibiotics. 0. proteus bacteremia: likely source.abx as per ID. currently now on Zosyn, continue for now, follow-up infectious disease recommendations regarding length of treatment, this is also helping to treat upper respiratory infection 1. sp PEA cardiac arrest 2/2 severe metabolic acidosis. The patient is being followed by Cardiology. As per Cardiology, there is no cardiac etiology to suggest the cardiac arrest. Patient however having positive orthostatic hypotension the last few days, especially when working with physical therapy. Lasix has been stopped, less orthostatic smpts now. - monitor, continue current cardiac medications, follow-up cardiology recommendations -Continue physical therapy 2. Acute on chronic diastolic heart failure. Improved with diuresis earlier this admission but, again, because of hypotension, now off Lasix medications. -Monitor, follow-up cardiology recommendation as well. 3. Acute kidney injury that required temporary hemodialysis 4. Essential hypertension. Continue antihypertensives. 5. Acute encephalopathy secondary to #1, RESOLVED 6. Acute respiratory failure with ARDS and pulmonary edema, status post mechanical ventilation, SP EXTUBATION 7. Status post sepsis, probably secondary to underlying aspiration pneumonia. RESOLVED 8. Hypothyroidism, severe. Continue Synthroid. 9. Debility. Physical therapy is recommending correction facility versus acute rehabilitation unit for further rehabilitation. 10. Normocytic normochromic anemia. monitor 11. Elevated BGs. Hemoglobin A1c 5.0. Continue sliding scale insulin. 12. Occlusive thrombosis of the left cephalic vein, and now positive lower extremity DVT-continue Xarelto (likely will need 6 months of treatment with this medicine) regular diet DVT prophylaxis. + DVT -Xarelto Plan-f/u with CM -per physical therapy, patient apparently not safe for discharge home at this point given orthostatic hypotension problems, although again this is been improving the last couple of days. Being reevaluated for correction facility placement-case management who is working on placement. Sister otherwise has been willing to take patient back to the [facility] in [place] once patient is able to be discharged and is medically cleared. Continue current management. Disability paperwork also completed. Problems: Subjective 24 Hr Interval Summary Free Text/Dictation Seen by infectious disease team yesterday, no acute events overnight. Exam/Review of Systems Vital Signs Vitals Vital Signs Date Time Temp Pulse Resp B/P Pulse Ox O2 Delivery O2 Flow Rate FiO2 09/23/16 08:34 84 18 97 21 09/23/16 07:50 97.8 128/74 Intake and Output 09/22/16 09/22/16 09/23/16 15:00 23:00 07:00 Intake Total 320 ml Output Total 550 ml Balance -230 ml Exam Lying in bed, talking on the telephone, no acute distress PERRLA, EOMI no mrg lungs clear abd soft no rashes Positive lower extremity edema left greater than right Results Result Diagram: 09/20/16 0835 09/23/16 0555 Results 24 hrs Laboratory Tests Test 09/22/16 12:04 09/22/16 17:12 09/22/16 21:11 09/23/16 05:55 Bedside Glucose 99 105 112 Sodium Level 143 Potassium Level 4.5 Chloride Level 104 Carbon Dioxide Level 25 Anion Gap 19 H Blood Urea Nitrogen 29 H Creatinine 0.98 Glucose Level 84 Calcium Level 11.2 H Test 09/23/16 07:57 Bedside Glucose 82 Medications Medications Current Medications Ondansetron HCl (Zofran Inj) 4 mg Q6H PRN IV NAUSEA AND/OR VOMITING; Start at 03:00 Metoclopramide HCl (Reglan) 10 mg Q6H PRN IV NAUSEA AND/OR VOMITING; Start at 03:00 Acetaminophen (Tylenol Tab) 650 mg Q6H PRN PO PAIN LEVEL 1-3 OR FEVER Last administered on 09/13/16 22:22; Admin Dose 650 MG; Start 08/01/16 at 03:00 Acetaminophen (Tylenol Supp) 650 mg Q4H PRN [place] PAIN LEVEL 1-3 OR FEVER; Start 08/01/16 at 06:30 Miscellaneous Information 1 ea NOTE XX ; Start 08/02/16 at 09:00 Glucose (Glutose) 15 gm Q15M PRN PO DECREASED GLUCOSE; Start 08/02/16 at 09:00 Glucose (Glutose) 22.5 gm Q15M PRN PO DECREASED GLUCOSE; Start 08/02/16 at 09:00 Dextrose (D50w Syringe) 25 ml Q15M PRN IV DECREASED GLUCOSE Last administered on 08/16/16 06:30; Admin Dose 25 ML; Start 08/02/16 at 09:00 Dextrose (D50w Syringe) 50 ml Q15M PRN IV DECREASED GLUCOSE; Start 08/02/16 at 09:00 Glucagon (Glucagen) 1 mg Q15M PRN IM DECREASED GLUCOSE; Start 08/02/16 at 09:00 Glucose (Glutose) 15 gm Q15M PRN BUCCAL DECREASED GLUCOSE; Start 08/02/16 at 09: 00 Calcium Carbonate (Ca Carbonate) 1,250 mg Q12 NGT Last administered on 08:44; Admin Dose 1,250 MG; Start 08/11/16 at 09:00 IV Flush (NS 10 ml) 10 ml PRN PRN IV FLUSH LINE; Start 08/11/16 at 20:00 Pantoprazole (Protonix Tab) 40 mg DAILY@06 PO Last administered on 09/23/16 06 :23; Admin Dose 40 MG; Start 08/18/16 at 06:00 Lorazepam (Ativan) 0.5 mg Q8H PRN PO ANXIETY; Start 08/19/16 at 14:00 Losartan Potassium (Cozaar) 50 mg DAILY PO Last administered on 09/23/16 08:42 ; Admin Dose 50 MG; Start 08/20/16 at 09:00 Amlodipine Besylate (Norvasc) 5 mg BID PO Last administered on 09/23/16 08:44 ; Admin Dose 5 MG; Start 08/23/16 at 21:00 Polyethylene Glycol (Miralax) 17 gm BID PO Last administered on 09/23/16 08:48 ; Admin Dose 17 GM; Start 08/26/16 at 09:00 Bisacodyl (Dulcolax) 10 mg DAILY PRN PO CONSTIPATION Last administered on 16:27; Admin Dose 10 MG; Start 08/26/16 at 08:00 Levothyroxine Sodium (Synthroid) 200 mcg DAILY@06 PO Last administered on 06:23; Admin Dose 200 MCG; Start 09/09/16 at 06:00 Liothyronine Sodium (Cytomel) 5 mcg BID PO Last administered on 09/23/16 08:40 ; Admin Dose 5 MCG; Start 09/16/16 at 09:00 Vitamin A/Vitamin D 1 applic 1 applic BID TOP Last administered on 09/23/16 08 :47; Admin Dose 1 APPLIC; Start 09/16/16 at 21:00 Piperacillin Sod/ Tazobactam Sod (Zosyn 3.375gm/ 100 ml (Pmx)) 100 ml @ 200 mls /hr Q8 IVPB Last administered on 09/23/16 06:23; Admin Dose 200 MLS/HR; Start 09/20/16 at 22:00 CAM COLON Sep 23, 2016 10:09
[2016-09-23 13:51] VITALS: BP 131/68; RESP 19
[2016-09-23 14:22] LABS: BASOPHIL # 0.1 10^3/ul (0.0-0.1); BASOPHILS % 0.6 % (0.0-2.0); EOSINOPHILS # 0.8 10^3/ul (0.0-0.5); EOSINOPHILS % 7.1 % (0.0-7.0); HEMATOCRIT 27.8 % (42.0-52.0); HEMOGLOBIN 8.8 g/dl (14.0-18.0); LYMPHOCYTES # 3.1 10^3/ul (0.8-2.9); LYMPHOCYTES % 27.6 % (15.0-51.0); MEAN CORPUSCULAR HEMOGLOBIN 30.7 pg (29.0-33.0); MEAN CORPUSCULAR HGB CONC 31.7 g/dl (32.0-37.0); MEAN CORPUSCULAR VOLUME 96.9 fl (82.0-101.0); MEAN PLATELET VOLUME 10.4 fl (7.4-10.4); MONOCYTE # 0.9 10^3/ul (0.3-0.9); MONOCYTES % 8.1 % (0.0-11.0); NEUTROPHIL # 6.2 10^3/ul (1.6-7.5); NEUTROPHILS % 56.1 % (39.0-77.0); PLATELET COUNT 406 10^3/UL (140-415); RED BLOOD COUNT 2.87 10^6/ul (4.70-6.10); RED CELL DISTRIBUTION WIDTH 15.6 % (11.5-14.5); WHITE BLOOD COUNT 11.1 10^3/ul (4.8-10.8)
--- NOTE | 2016-09-23 15:13 | CONS ---
Date/Time of Note Date/Time of Note DATE: 09/23/16 TIME: 15:13 Assessment/Plan Assessment/Plan Chief Complaint/Hosp Course No acute changes sleeping looks comfortable no fevers WBC 11.1 platelets 406 no shift no balance BN 29 creatinine 0.98 Antimicrobials: Zosyn PHYSICAL EXAMINATION: GENERAL: Obese, well-developed middle-aged man in no distress. HEENT: Head atraumatic, normocephalic. Sclerae anicteric. Buccal mucosa dry. NECK: Supple, trachea midline. CHEST: Rise symmetrical. Breath sounds diminished to bases. HEART: S1, S2. ABDOMEN: Soft. Bowel tones active EXTREMITIES: Bilateral edema. ASSESSMENT: 1. Proteus mirabilis UTI with bacteremia 2. S/p acute respiratory failure and septic shock. 3. Acute kidney injury status post hemodialysis, now off 4. Right upper lobe pneumonia 4. Status post cardiopulmonary arrest. 5. History of ETOH abuse. 7. Morbid obesity PLAN: The patient remains stable, continue Zosyn for healthcare associated pneumonia, follow chest x-ray in a.m., encourage incentive spirometry use, pulmonary, cardiology recommendations DAX RN Problems: Consultation Date/Type/Reason Admit Date/Time August 01, 2016 at 00:50 Initial Consult Date 08/01/16 Type of Consultation: id Exam/Review of Systems Vital Signs Vitals Vital Signs Date Time Temp Pulse Resp B/P Pulse Ox O2 Delivery O2 Flow Rate FiO2 09/23/16 14:43 91 20 95 21 09/23/16 13:51 98.1 131/68 Intake and Output 09/22/16 09/22/16 09/23/16 15:00 23:00 07:00 Intake Total 320 ml Output Total 550 ml Balance -230 ml Results Result Diagram: 09/23/16 1330 09/23/16 0555 Results 24 hrs Laboratory Tests Test 09/22/16 17:12 09/22/16 21:11 09/23/16 05:55 09/23/16 07:57 Bedside Glucose 105 112 82 Sodium Level 143 Potassium Level 4.5 Chloride Level 104 Carbon Dioxide Level 25 Anion Gap 19 H Blood Urea Nitrogen 29 H Creatinine 0.98 Glucose Level 84 Calcium Level 11.2 H Test 09/23/16 12:00 09/23/16 13:30 Bedside Glucose 91 White Blood Count 11.1 H Red Blood Count 2.87 L Hemoglobin 8.8 L Hematocrit 27.8 L Mean Corpuscular Volume 96.9 Mean Corpuscular Hemoglobin 30.7 Mean Corpuscular Hemoglobin Concent 31.7 L Red Cell Distribution Width 15.6 H Platelet Count 406 Mean Platelet Volume 10.4 Neutrophils % 56.1 Lymphocytes % 27.6 Monocytes % 8.1 Eosinophils % 7.1 H Basophils % 0.6 Nucleated Red Blood Cells % 0.0 Neutrophils # 6.2 Lymphocytes # 3.1 H Monocytes # 0.9 Eosinophils # 0.8 H Basophils # 0.1 Nucleated Red Blood Cells # 0.0 Medications Medications Current Medications Ondansetron HCl (Zofran Inj) 4 mg Q6H PRN IV NAUSEA AND/OR VOMITING; Start at 03:00 Metoclopramide HCl (Reglan) 10 mg Q6H PRN IV NAUSEA AND/OR VOMITING; Start at 03:00 Acetaminophen (Tylenol Tab) 650 mg Q6H PRN PO PAIN LEVEL 1-3 OR FEVER Last administered on 09/13/16 22:22; Admin Dose 650 MG; Start 08/01/16 at 03:00 Acetaminophen (Tylenol Supp) 650 mg Q4H PRN [place] PAIN LEVEL 1-3 OR FEVER; Start 08/01/16 at 06:30 Miscellaneous Information 1 ea NOTE XX ; Start 08/02/16 at 09:00 Glucose (Glutose) 15 gm Q15M PRN PO DECREASED GLUCOSE; Start 08/02/16 at 09:00 Glucose (Glutose) 22.5 gm Q15M PRN PO DECREASED GLUCOSE; Start 08/02/16 at 09:00 Dextrose (D50w Syringe) 25 ml Q15M PRN IV DECREASED GLUCOSE Last administered on 08/16/16 06:30; Admin Dose 25 ML; Start 08/02/16 at 09:00 Dextrose (D50w Syringe) 50 ml Q15M PRN IV DECREASED GLUCOSE; Start 08/02/16 at 09:00 Glucagon (Glucagen) 1 mg Q15M PRN IM DECREASED GLUCOSE; Start 08/02/16 at 09:00 Glucose (Glutose) 15 gm Q15M PRN BUCCAL DECREASED GLUCOSE; Start 08/02/16 at 09: 00 Calcium Carbonate (Ca Carbonate) 1,250 mg Q12 NGT Last administered on 08:44; Admin Dose 1,250 MG; Start 08/11/16 at 09:00 IV Flush (NS 10 ml) 10 ml PRN PRN IV FLUSH LINE; Start 08/11/16 at 20:00 Pantoprazole (Protonix Tab) 40 mg DAILY@06 PO Last administered on 09/23/16 06 :23; Admin Dose 40 MG; Start 08/18/16 at 06:00 Lorazepam (Ativan) 0.5 mg Q8H PRN PO ANXIETY; Start 08/19/16 at 14:00 Losartan Potassium (Cozaar) 50 mg DAILY PO Last administered on 09/23/16 08:42 ; Admin Dose 50 MG; Start 08/20/16 at 09:00 Amlodipine Besylate (Norvasc) 5 mg BID PO Last administered on 09/23/16 08:44 ; Admin Dose 5 MG; Start 08/23/16 at 21:00 Polyethylene Glycol (Miralax) 17 gm BID PO Last administered on 09/23/16 08:48 ; Admin Dose 17 GM; Start 08/26/16 at 09:00 Bisacodyl (Dulcolax) 10 mg DAILY PRN PO CONSTIPATION Last administered on 16:27; Admin Dose 10 MG; Start 08/26/16 at 08:00 Levothyroxine Sodium (Synthroid) 200 mcg DAILY@06 PO Last administered on 06:23; Admin Dose 200 MCG; Start 09/09/16 at 06:00 Liothyronine Sodium (Cytomel) 5 mcg BID PO Last administered on 09/23/16 08:40 ; Admin Dose 5 MCG; Start 09/16/16 at 09:00 Vitamin A/Vitamin D 1 applic 1 applic BID TOP Last administered on 09/23/16 08 :47; Admin Dose 1 APPLIC; Start 09/16/16 at 21:00 Piperacillin Sod/ Tazobactam Sod (Zosyn 3.375gm/ 100 ml (Pmx)) 100 ml @ 200 mls /hr Q8 IVPB Last administered on 09/23/16 06:23; Admin Dose 200 MLS/HR; Start 09/20/16 at 22:00 RADHA ESCALANTE NP Sep 23, 2016 15:13
[2016-09-23 20:04] VITALS: BP 129/77; RESP 18
[2016-09-24 02:00] VITALS: BP 135/79; RESP 18
[2016-09-24] MEDS: PANTOPRAZOLE (EC) 40 MG TAB PO SCH (05:42)
[2016-09-24] MEDS: PIPER-TAZO 3.375 GM IV (PMX) 100 ML IVPB SCH ×3 (05:42→21:30)
[2016-09-24] MEDS: LEVOTHYROXINE 100 MCG TAB PO SCH (05:42)
[2016-09-24 06:15] LABS: BASOPHIL # 0.1 10^3/ul (0.0-0.1); BASOPHILS % 0.6 % (0.0-2.0); EOSINOPHILS # 0.8 10^3/ul (0.0-0.5); EOSINOPHILS % 7.4 % (0.0-7.0); HEMATOCRIT 28.7 % (42.0-52.0); HEMOGLOBIN 9.1 g/dl (14.0-18.0); LYMPHOCYTES # 3.6 10^3/ul (0.8-2.9); LYMPHOCYTES % 33.9 % (15.0-51.0); MEAN CORPUSCULAR HEMOGLOBIN 30.5 pg (29.0-33.0); MEAN CORPUSCULAR HGB CONC 31.7 g/dl (32.0-37.0); MEAN CORPUSCULAR VOLUME 96.3 fl (82.0-101.0); MEAN PLATELET VOLUME 10.4 fl (7.4-10.4); MONOCYTE # 0.8 10^3/ul (0.3-0.9); MONOCYTES % 7.6 % (0.0-11.0); NEUTROPHIL # 5.3 10^3/ul (1.6-7.5); NEUTROPHILS % 50.1 % (39.0-77.0); PLATELET COUNT 414 10^3/UL (140-415); RED BLOOD COUNT 2.98 10^6/ul (4.70-6.10); RED CELL DISTRIBUTION WIDTH 15.4 % (11.5-14.5); WHITE BLOOD COUNT 10.7 10^3/ul (4.8-10.8)
[2016-09-24 06:34] LABS: CALCIUM 11.2 mg/dl (8.4-10.2); CREATININE 1.16 mg/dl (0.61-1.24); POTASSIUM 4.8 mmol/L (3.5-5.1)
[2016-09-24] MEDS: ALBUTEROL/IPRATROPIUM (NEB) 3 ML AMP HHN SCH ×3 (07:25→20:55)
[2016-09-24 07:48] VITALS: BP 134/80; RESP 18
[2016-09-24] MEDS: INSULIN ASPART [NOVOLOG] 3 ML PEN SC SCH ×4 (08:01→20:29)
[2016-09-24] MEDS: RIVAROXABAN 15 MG TABLET PO SCH ×2 (08:01→17:49)
[2016-09-24] MEDS: POLYETHYLENE GLYCOL 17 GM PACKET PO SCH ×2 (08:02→20:27)
[2016-09-24] MEDS: AMLODIPINE 5 MG TAB PO SCH ×2 (08:02→20:33)
[2016-09-24] MEDS: CA CARBONATE (250 MG/ML) 5ML CUP NGT SCH ×2 (08:02→20:29)
[2016-09-24] MEDS: LIOTHYRONINE 5 MCG TAB PO SCH ×2 (08:02→20:28)
[2016-09-24] MEDS: VITAMIN A & D 5 GM OINT PACKET TOP SCH ×2 (08:02→20:28)
[2016-09-24] MEDS: LOSARTAN 50 MG TAB PO SCH (08:03)
--- NOTE | 2016-09-24 09:53 | RADRPT ---
PROCEDURE: XR Chest. CLINICAL INDICATION: r/o pna TECHNIQUE: Single frontal view of the chest was obtained COMPARISON: Chest x-ray 09/21/2016 FINDINGS: There are low lung volumes with slight crowding of lung markings. The cardiomediastinal silhouette is within normal limits. There are atherosclerotic calcifications o f the thoracic aorta. Interval slight increase in left retrocardiac/basilar ill-defined opacities, suggesting worsening at electasis or pneumonia. Diffuse mild prominence of interstitial lung markings may be a least partially attributable to low l stiven volumes. No pneumothorax or significant pleural effusion is seen. There are degenerative changes of the visualized spine. IMPRESSION: 1. Low lung volumes with crowding of lung markings. 2. Interval slight increase in left retrocardiac/basilar ill-defined opacities, suggesting worsenin g atelectasis or pneumonia. RPTAT: PP Physician Barbie Date Time Electronically viewed and signed by Physician Barbie on 09/24/2016 09:53 MARICARMEN/
[2016-09-24] MEDS: HYDROCODONE/APAP (5/325) TAB PO PRN (10:52)
--- NOTE | 2016-09-24 13:21 | CONS ---
Date/Time of Note Date/Time of Note DATE: 09/24/16 TIME: 13:20 Assessment/Plan Assessment/Plan Chief Complaint/Hosp Course Alert feels good denies pain discomfort, no fevers, at bedside WBC 10.7 platelets 414, no shift BN 29 creatinine 1.16 Chest x-ray this morning revealed interval slight increase in left retrocardiac/ basilar ill-defined opacities suggesting worsening atelectasis or pneumonia Antimicrobials: Zosyn PHYSICAL EXAMINATION: GENERAL: Obese, well-developed middle-aged man in no distress. HEENT: Head atraumatic, normocephalic. Sclerae anicteric. Buccal mucosa dry. NECK: Supple, trachea midline. CHEST: Rise symmetrical. Breath sounds diminished to bases. HEART: S1, S2. ABDOMEN: Soft. Bowel tones active EXTREMITIES: Bilateral edema. ASSESSMENT: 1. Proteus mirabilis UTI with bacteremia 2. S/p acute respiratory failure and septic shock. 3. Acute kidney injury status post hemodialysis, now off 4. Right upper lobe pneumonia 4. Status post cardiopulmonary arrest. 5. History of ETOH abuse. 7. Morbid obesity PLAN: The patient remains stable, WBC decreasing, continue Zosyn, add doxycycline, encourage incentive spirometry use, pulmonary, cardiology recommendations DAX RN Problems: Consultation Date/Type/Reason Admit Date/Time August 01, 2016 at 00:50 Initial Consult Date 08/01/16 Type of Consultation: id Exam/Review of Systems Vital Signs Vitals Vital Signs Date Time Temp Pulse Resp B/P Pulse Ox O2 Delivery O2 Flow Rate FiO2 09/24/16 07:48 97.9 102 18 134/80 97 09/24/16 07:25 21 Intake and Output 09/23/16 09/23/16 09/24/16 15:00 23:00 07:00 Intake Total 1160 ml 600 ml Output Total 700 ml 1300 ml Balance 460 ml -700 ml Results Result Diagram: 09/24/16 0541 09/24/16 0541 Results 24 hrs Laboratory Tests Test 09/23/16 13:30 09/23/16 17:14 09/23/16 20:58 09/24/16 05:41 White Blood Count 11.1 H 10.7 Red Blood Count 2.87 L 2.98 L Hemoglobin 8.8 L 9.1 L Hematocrit 27.8 L 28.7 L Mean Corpuscular Volume 96.9 96.3 Mean Corpuscular Hemoglobin 30.7 30.5 Mean Corpuscular Hemoglobin Concent 31.7 L 31.7 L Red Cell Distribution Width 15.6 H 15.4 H Platelet Count 406 414 Mean Platelet Volume 10.4 10.4 Neutrophils % 56.1 50.1 Lymphocytes % 27.6 33.9 Monocytes % 8.1 7.6 Eosinophils % 7.1 H 7.4 H Basophils % 0.6 0.6 Nucleated Red Blood Cells % 0.0 0.0 Neutrophils # 6.2 5.3 Lymphocytes # 3.1 H 3.6 H Monocytes # 0.9 0.8 Eosinophils # 0.8 H 0.8 H Basophils # 0.1 0.1 Nucleated Red Blood Cells # 0.0 0.0 Bedside Glucose 79 110 Sodium Level 142 Potassium Level 4.8 Chloride Level 106 Carbon Dioxide Level 25 Anion Gap 16 Blood Urea Nitrogen 29 H Creatinine 1.16 Glucose Level 86 Calcium Level 11.2 H Test 09/24/16 08:00 09/24/16 12:19 Bedside Glucose 85 96 Medications Medications Current Medications Ondansetron HCl (Zofran Inj) 4 mg Q6H PRN IV NAUSEA AND/OR VOMITING; Start at 03:00 Metoclopramide HCl (Reglan) 10 mg Q6H PRN IV NAUSEA AND/OR VOMITING; Start at 03:00 Acetaminophen (Tylenol Tab) 650 mg Q6H PRN PO PAIN LEVEL 1-3 OR FEVER Last administered on 09/13/16 22:22; Admin Dose 650 MG; Start 08/01/16 at 03:00 Acetaminophen (Tylenol Supp) 650 mg Q4H PRN [place] PAIN LEVEL 1-3 OR FEVER; Start 08/01/16 at 06:30 Miscellaneous Information 1 ea NOTE XX ; Start 08/02/16 at 09:00 Glucose (Glutose) 15 gm Q15M PRN PO DECREASED GLUCOSE; Start 08/02/16 at 09:00 Glucose (Glutose) 22.5 gm Q15M PRN PO DECREASED GLUCOSE; Start 08/02/16 at 09:00 Dextrose (D50w Syringe) 25 ml Q15M PRN IV DECREASED GLUCOSE Last administered on 08/16/16 06:30; Admin Dose 25 ML; Start 08/02/16 at 09:00 Dextrose (D50w Syringe) 50 ml Q15M PRN IV DECREASED GLUCOSE; Start 08/02/16 at 09:00 Glucagon (Glucagen) 1 mg Q15M PRN IM DECREASED GLUCOSE; Start 08/02/16 at 09:00 Glucose (Glutose) 15 gm Q15M PRN BUCCAL DECREASED GLUCOSE; Start 08/02/16 at 09: 00 Calcium Carbonate (Ca Carbonate) 1,250 mg Q12 NGT Last administered on 08:02; Admin Dose 1,250 MG; Start 08/11/16 at 09:00 IV Flush (NS 10 ml) 10 ml PRN PRN IV FLUSH LINE; Start 08/11/16 at 20:00 Pantoprazole (Protonix Tab) 40 mg DAILY@06 PO Last administered on 09/24/16 05 :42; Admin Dose 40 MG; Start 08/18/16 at 06:00 Lorazepam (Ativan) 0.5 mg Q8H PRN PO ANXIETY; Start 08/19/16 at 14:00 Losartan Potassium (Cozaar) 50 mg DAILY PO Last administered on 09/24/16 08:03 ; Admin Dose 50 MG; Start 08/20/16 at 09:00 Amlodipine Besylate (Norvasc) 5 mg BID PO Last administered on 09/24/16 08:02 ; Admin Dose 5 MG; Start 08/23/16 at 21:00 Polyethylene Glycol (Miralax) 17 gm BID PO Last administered on 09/24/16 08:02 ; Admin Dose 17 GM; Start 08/26/16 at 09:00 Bisacodyl (Dulcolax) 10 mg DAILY PRN PO CONSTIPATION Last administered on 16:27; Admin Dose 10 MG; Start 08/26/16 at 08:00 Levothyroxine Sodium (Synthroid) 200 mcg DAILY@06 PO Last administered on 05:42; Admin Dose 200 MCG; Start 09/09/16 at 06:00 Liothyronine Sodium (Cytomel) 5 mcg BID PO Last administered on 09/24/16 08:02 ; Admin Dose 5 MCG; Start 09/16/16 at 09:00 Vitamin A/Vitamin D 1 applic 1 applic BID TOP Last administered on 09/24/16 08 :02; Admin Dose 1 APPLIC; Start 09/16/16 at 21:00 Piperacillin Sod/ Tazobactam Sod (Zosyn 3.375gm/ 100 ml (Pmx)) 100 ml @ 200 mls /hr Q8 IVPB Last administered on 09/24/16 05:42; Admin Dose 200 MLS/HR; Start 09/20/16 at 22:00 Acetaminophen/ Hydrocodone Bitart ([place] (5/325)) 1 tab DAILY PRN PO pain Last administered on 09/24/16 10:52; Admin Dose 1 TAB; Start 09/24/16 at 11:00 RADHA ESCALANTE NP Sep 24, 2016 13:21
[2016-09-24 14:18] VITALS: BP 105/66; RESP 18
--- NOTE | 2016-09-24 16:20 | PN ---
Date/Time of Note Date/Time of Note DATE: 09/24/16 TIME: 16:18 Assessment/Plan VTE Prophylaxis VTE Prophylaxis Intervention: SCD's Lines/Catheters IV [facility] Sal[place] Lock Urinary Cath still in place: No Assessment/Plan Assessment/Plan Assessment/Plan: 60 M admitted in PEA arrest 2/2 severe metabolic acidosis with ROSC following CPR. Etiology of metabolic acidosis possibly from septic shock/ lactic acidosis? from aspiration pna? Metabolic acidosis resolved following temporary HD; had fever 7.12, suspect 2/2 proteus UTI with hematologic spread, on antibiotics. 1. proteus bacteremia: likely source.abx as per ID. currently now on Zosyn, continue for now, follow-up infectious disease recommendations regarding length of treatment, this is also helping to treat upper respiratory infection pt also with ? pna. ID following. doxycycline added. 2. sp PEA cardiac arrest 2/2 severe metabolic acidosis. As per Cardiology, no cardiac etiology of cardiac arrest. Patient however having positive orthostatic hypotension the last few days, especially when working with physical therapy. Lasix/flomax stopped, less orthostatic -Continue physical therapy 3. Acute on chronic diastolic heart failure. Improved with diuresis earlier this admission but, again, because of hypotension, now off Lasix medications. 4. Acute kidney injury that required temporary hemodialysis RESOLVED 5. Essential hypertension. Continue antihypertensives. 6. Acute encephalopathy secondary to #2, RESOLVED 7. Acute respiratory failure with ARDS and pulmonary edema, status post mechanical ventilation, SP EXTUBATION 8. Hypothyroidism, severe. Continue Synthroid. 9. Debility. Physical therapy is recommending correction facility versus acute rehabilitation unit for further rehabilitation. 10. Normocytic normochromic anemia. monitor 11. Elevated BGs. Hemoglobin A1c 5.0. Continue sliding scale insulin. 12. Occlusive thrombosis of the left cephalic vein, and now positive lower extremity DVT-continue Xarelto (likely will need 6 months of treatment with this medicine) dispo: CM looking for RHIANNON Subjective 24 Hr Interval Summary Free Text/Dictation Resting. Exam/Review of Systems Vital Signs Vitals Vital Signs Date Time Temp Pulse Resp B/P Pulse Ox O2 Delivery O2 Flow Rate FiO2 09/24/16 14:18 98.3 101 18 105/66 96 09/24/16 13:44 21 Intake and Output 09/23/16 09/23/16 09/24/16 15:00 23:00 07:00 Intake Total 1160 ml 600 ml Output Total 700 ml 1300 ml Balance 460 ml -700 ml Exam nad, laying in bed no mrg lungs clear abd soft no rashes Results Result Diagram: 09/24/16 0541 09/24/16 0541 Results 24 hrs Laboratory Tests Test 09/23/16 17:14 09/23/16 20:58 09/24/16 05:41 09/24/16 08:00 Bedside Glucose 79 110 85 White Blood Count 10.7 Red Blood Count 2.98 L Hemoglobin 9.1 L Hematocrit 28.7 L Mean Corpuscular Volume 96.3 Mean Corpuscular Hemoglobin 30.5 Mean Corpuscular Hemoglobin Concent 31.7 L Red Cell Distribution Width 15.4 H Platelet Count 414 Mean Platelet Volume 10.4 Neutrophils % 50.1 Lymphocytes % 33.9 Monocytes % 7.6 Eosinophils % 7.4 H Basophils % 0.6 Nucleated Red Blood Cells % 0.0 Neutrophils # 5.3 Lymphocytes # 3.6 H Monocytes # 0.8 Eosinophils # 0.8 H Basophils # 0.1 Nucleated Red Blood Cells # 0.0 Sodium Level 142 Potassium Level 4.8 Chloride Level 106 Carbon Dioxide Level 25 Anion Gap 16 Blood Urea Nitrogen 29 H Creatinine 1.16 Glucose Level 86 Calcium Level 11.2 H Test 09/24/16 12:19 Bedside Glucose 96 Medications Medications Current Medications Ondansetron HCl (Zofran Inj) 4 mg Q6H PRN IV NAUSEA AND/OR VOMITING; Start at 03:00 Metoclopramide HCl (Reglan) 10 mg Q6H PRN IV NAUSEA AND/OR VOMITING; Start at 03:00 Acetaminophen (Tylenol Tab) 650 mg Q6H PRN PO PAIN LEVEL 1-3 OR FEVER Last administered on 09/13/16 22:22; Admin Dose 650 MG; Start 08/01/16 at 03:00 Acetaminophen (Tylenol Supp) 650 mg Q4H PRN [place] PAIN LEVEL 1-3 OR FEVER; Start 08/01/16 at 06:30 Miscellaneous Information 1 ea NOTE XX ; Start 08/02/16 at 09:00 Glucose (Glutose) 15 gm Q15M PRN PO DECREASED GLUCOSE; Start 08/02/16 at 09:00 Glucose (Glutose) 22.5 gm Q15M PRN PO DECREASED GLUCOSE; Start 08/02/16 at 09:00 Dextrose (D50w Syringe) 25 ml Q15M PRN IV DECREASED GLUCOSE Last administered on 08/16/16 06:30; Admin Dose 25 ML; Start 08/02/16 at 09:00 Dextrose (D50w Syringe) 50 ml Q15M PRN IV DECREASED GLUCOSE; Start 08/02/16 at 09:00 Glucagon (Glucagen) 1 mg Q15M PRN IM DECREASED GLUCOSE; Start 08/02/16 at 09:00 Glucose (Glutose) 15 gm Q15M PRN BUCCAL DECREASED GLUCOSE; Start 08/02/16 at 09: 00 Calcium Carbonate (Ca Carbonate) 1,250 mg Q12 NGT Last administered on 08:02; Admin Dose 1,250 MG; Start 08/11/16 at 09:00 IV Flush (NS 10 ml) 10 ml PRN PRN IV FLUSH LINE; Start 08/11/16 at 20:00 Pantoprazole (Protonix Tab) 40 mg DAILY@06 PO Last administered on 09/24/16 05 :42; Admin Dose 40 MG; Start 08/18/16 at 06:00 Lorazepam (Ativan) 0.5 mg Q8H PRN PO ANXIETY; Start 08/19/16 at 14:00 Losartan Potassium (Cozaar) 50 mg DAILY PO Last administered on 09/24/16 08:03 ; Admin Dose 50 MG; Start 08/20/16 at 09:00 Amlodipine Besylate (Norvasc) 5 mg BID PO Last administered on 09/24/16 08:02 ; Admin Dose 5 MG; Start 08/23/16 at 21:00 Polyethylene Glycol (Miralax) 17 gm BID PO Last administered on 09/24/16 08:02 ; Admin Dose 17 GM; Start 08/26/16 at 09:00 Bisacodyl (Dulcolax) 10 mg DAILY PRN PO CONSTIPATION Last administered on 16:27; Admin Dose 10 MG; Start 08/26/16 at 08:00 Levothyroxine Sodium (Synthroid) 200 mcg DAILY@06 PO Last administered on 05:42; Admin Dose 200 MCG; Start 09/09/16 at 06:00 Liothyronine Sodium (Cytomel) 5 mcg BID PO Last administered on 09/24/16 08:02 ; Admin Dose 5 MCG; Start 09/16/16 at 09:00 Vitamin A/Vitamin D 1 applic 1 applic BID TOP Last administered on 09/24/16 08 :02; Admin Dose 1 APPLIC; Start 09/16/16 at 21:00 Piperacillin Sod/ Tazobactam Sod (Zosyn 3.375gm/ 100 ml (Pmx)) 100 ml @ 200 mls /hr Q8 IVPB Last administered on 09/24/16 14:53; Admin Dose 200 MLS/HR; Start 09/20/16 at 22:00 Acetaminophen/ Hydrocodone Bitart ([place] (5/325)) 1 tab DAILY PRN PO pain Last administered on 09/24/16 10:52; Admin Dose 1 TAB; Start 09/24/16 at 11:00 Doxycycline Hyclate (Vibramycin) 100 mg BID PO ; Start 09/24/16 at 21:00 GABRIELA GONZALEZ MD Sep 24, 2016 16:20
[2016-09-24 20:00] VITALS: BP 127/75; RESP 18
[2016-09-24] MEDS: DOXYCYCLINE 100 MG TAB PO SCH (20:28)
[2016-09-25 02:55] VITALS: BP 127/72; RESP 18
[2016-09-25] MEDS: PANTOPRAZOLE (EC) 40 MG TAB PO SCH (05:24)
[2016-09-25] MEDS: LEVOTHYROXINE 100 MCG TAB PO SCH (05:24)
[2016-09-25] MEDS: PIPER-TAZO 3.375 GM IV (PMX) 100 ML IVPB SCH ×3 (05:24→21:24)
[2016-09-25 05:34] LABS: BASOPHIL # 0.1 10^3/ul (0.0-0.1); BASOPHILS % 0.7 % (0.0-2.0); EOSINOPHILS # 0.6 10^3/ul (0.0-0.5); HEMATOCRIT 29.8 % (42.0-52.0); HEMOGLOBIN 9.3 g/dl (14.0-18.0); LYMPHOCYTES # 3.4 10^3/ul (0.8-2.9); LYMPHOCYTES % 32.9 % (15.0-51.0); MEAN CORPUSCULAR HEMOGLOBIN 29.5 pg (29.0-33.0); MEAN CORPUSCULAR HGB CONC 31.2 g/dl (32.0-37.0); MEAN CORPUSCULAR VOLUME 94.6 fl (82.0-101.0); MEAN PLATELET VOLUME 10.4 fl (7.4-10.4); MONOCYTE # 0.8 10^3/ul (0.3-0.9); MONOCYTES % 7.3 % (0.0-11.0); NEUTROPHIL # 5.5 10^3/ul (1.6-7.5); NEUTROPHILS % 52.8 % (39.0-77.0); PLATELET COUNT 425 10^3/UL (140-415); RED BLOOD COUNT 3.15 10^6/ul (4.70-6.10); RED CELL DISTRIBUTION WIDTH 15.6 % (11.5-14.5); WHITE BLOOD COUNT 10.5 10^3/ul (4.8-10.8)
[2016-09-25] MEDS: ALBUTEROL/IPRATROPIUM (NEB) 3 ML AMP HHN SCH ×3 (07:35→20:50)
[2016-09-25 07:38] LABS: CALCIUM 11.3 mg/dl (8.4-10.2); CREATININE 1.12 mg/dl (0.61-1.24)
[2016-09-25 07:50] VITALS: BP 132/79; RESP 18
[2016-09-25] MEDS: INSULIN ASPART [NOVOLOG] 3 ML PEN SC SCH ×4 (08:12→20:44)
[2016-09-25] MEDS: DOXYCYCLINE 100 MG TAB PO SCH ×2 (08:21→20:43)
[2016-09-25] MEDS: LIOTHYRONINE 5 MCG TAB PO SCH ×2 (08:21→20:43)
[2016-09-25] MEDS: VITAMIN A & D 5 GM OINT PACKET TOP SCH ×2 (08:21→20:44)
[2016-09-25] MEDS: CA CARBONATE (250 MG/ML) 5ML CUP NGT SCH ×2 (08:21→20:43)
[2016-09-25] MEDS: POLYETHYLENE GLYCOL 17 GM PACKET PO SCH ×2 (08:22→20:43)
[2016-09-25] MEDS: AMLODIPINE 5 MG TAB PO SCH ×2 (08:22→20:43)
[2016-09-25] MEDS: LOSARTAN 50 MG TAB PO SCH (08:22)
[2016-09-25] MEDS: RIVAROXABAN 15 MG TABLET PO SCH ×2 (10:58→18:31)
[2016-09-25] MEDS: traMADol 50 MG TAB PO PRN (11:13)
[2016-09-25] MEDS: HYDROCODONE/APAP (5/325) TAB PO PRN (12:21)
--- NOTE | 2016-09-25 12:34 | CONS ---
Date/Time of Note Date/Time of Note DATE: 09/25/16 TIME: 12:25 Assessment/Plan Assessment/Plan Chief Complaint/Hosp Course Assessment/Plan Chief Complaint/Hosp Course Alert. Awake. Denies pain. No Acute Distress. Antimicrobials: Zosyn PHYSICAL EXAMINATION: GENERAL: Obese, well-developed middle-aged man in no distress. HEENT: Head atraumatic, normocephalic. Sclerae anicteric. Buccal mucosa dry. NECK: Supple, trachea midline. CHEST: Rise symmetrical. Breath sounds diminished to bases. HEART: S1, S2. ABDOMEN: Soft. Bowel tones active EXTREMITIES: Left Knee Edema noted. Bilateral edema. ASSESSMENT: 1. Proteus mirabilis UTI with bacteremia 2. S/p acute respiratory failure and septic shock. 3. Acute kidney injury status post hemodialysis, now off 4. Right upper lobe pneumonia 4. Status post cardiopulmonary arrest. 5. History of ETOH abuse. 7. Morbid obesity 8. History of Gout. 9. Left Knee Edema. PLAN: The patient remains stable. Continue Zosyn. Add doxycycline. Encourage incentive spirometry use. Continue with pulmonary and cardiology recommendations. Obtain XRAY of Left Knee. Pain Management. Continue with recommendations by Primary Physician. DAX RN. Problems: Consultation Date/Type/Reason Admit Date/Time August 01, 2016 at 00:50 Initial Consult Date 08/01/16 Type of Consultation: id Exam/Review of Systems Vital Signs Vitals Vital Signs Date Time Temp Pulse Resp B/P Pulse Ox O2 Delivery O2 Flow Rate FiO2 09/25/16 07:50 98.7 103 18 132/79 94 09/25/16 07:35 21 Intake and Output 09/24/16 09/24/16 09/25/16 15:00 23:00 07:00 Intake Total 1560 ml 780 ml Output Total 800 ml 750 ml Balance 760 ml 30 ml Results Result Diagram: 09/25/16 0452 09/25/16 0452 Results 24 hrs Laboratory Tests Test 09/24/16 17:14 09/24/16 20:25 09/25/16 04:52 09/25/16 08:09 Bedside Glucose 90 110 99 White Blood Count 10.5 Red Blood Count 3.15 L Hemoglobin 9.3 L Hematocrit 29.8 L Mean Corpuscular Volume 94.6 Mean Corpuscular Hemoglobin 29.5 Mean Corpuscular Hemoglobin Concent 31.2 L Red Cell Distribution Width 15.6 H Platelet Count 425 H Mean Platelet Volume 10.4 Neutrophils % 52.8 Lymphocytes % 32.9 Monocytes % 7.3 Eosinophils % 6.0 Basophils % 0.7 Nucleated Red Blood Cells % 0.0 Neutrophils # 5.5 Lymphocytes # 3.4 H Monocytes # 0.8 Eosinophils # 0.6 H Basophils # 0.1 Nucleated Red Blood Cells # 0.0 Sodium Level 142 Potassium Level 5.0 Chloride Level 105 Carbon Dioxide Level 25 Anion Gap 17 H Blood Urea Nitrogen 33 H Creatinine 1.12 Glucose Level 87 Calcium Level 11.3 H Medications Medications Current Medications Ondansetron HCl (Zofran Inj) 4 mg Q6H PRN IV NAUSEA AND/OR VOMITING; Start at 03:00 Metoclopramide HCl (Reglan) 10 mg Q6H PRN IV NAUSEA AND/OR VOMITING; Start at 03:00 Acetaminophen (Tylenol Tab) 650 mg Q6H PRN PO PAIN LEVEL 1-3 OR FEVER Last administered on 09/13/16 22:22; Admin Dose 650 MG; Start 08/01/16 at 03:00 Acetaminophen (Tylenol Supp) 650 mg Q4H PRN [place] PAIN LEVEL 1-3 OR FEVER; Start 08/01/16 at 06:30 Miscellaneous Information 1 ea NOTE XX ; Start 08/02/16 at 09:00 Glucose (Glutose) 15 gm Q15M PRN PO DECREASED GLUCOSE; Start 08/02/16 at 09:00 Glucose (Glutose) 22.5 gm Q15M PRN PO DECREASED GLUCOSE; Start 08/02/16 at 09:00 Dextrose (D50w Syringe) 25 ml Q15M PRN IV DECREASED GLUCOSE Last administered on 08/16/16 06:30; Admin Dose 25 ML; Start 08/02/16 at 09:00 Dextrose (D50w Syringe) 50 ml Q15M PRN IV DECREASED GLUCOSE; Start 08/02/16 at 09:00 Glucagon (Glucagen) 1 mg Q15M PRN IM DECREASED GLUCOSE; Start 08/02/16 at 09:00 Glucose (Glutose) 15 gm Q15M PRN BUCCAL DECREASED GLUCOSE; Start 08/02/16 at 09: 00 Calcium Carbonate (Ca Carbonate) 1,250 mg Q12 NGT Last administered on 08:21; Admin Dose 1,250 MG; Start 08/11/16 at 09:00 IV Flush (NS 10 ml) 10 ml PRN PRN IV FLUSH LINE; Start 08/11/16 at 20:00 Pantoprazole (Protonix Tab) 40 mg DAILY@06 PO Last administered on 09/25/16 05 :24; Admin Dose 40 MG; Start 08/18/16 at 06:00 Lorazepam (Ativan) 0.5 mg Q8H PRN PO ANXIETY; Start 08/19/16 at 14:00 Losartan Potassium (Cozaar) 50 mg DAILY PO Last administered on 09/25/16 08:22 ; Admin Dose 50 MG; Start 08/20/16 at 09:00 Amlodipine Besylate (Norvasc) 5 mg BID PO Last administered on 09/25/16 08:22 ; Admin Dose 5 MG; Start 08/23/16 at 21:00 Polyethylene Glycol (Miralax) 17 gm BID PO Last administered on 09/25/16 08:22 ; Admin Dose 17 GM; Start 08/26/16 at 09:00 Bisacodyl (Dulcolax) 10 mg DAILY PRN PO CONSTIPATION Last administered on 16:27; Admin Dose 10 MG; Start 08/26/16 at 08:00 Levothyroxine Sodium (Synthroid) 200 mcg DAILY@06 PO Last administered on 05:24; Admin Dose 200 MCG; Start 09/09/16 at 06:00 Liothyronine Sodium (Cytomel) 5 mcg BID PO Last administered on 09/25/16 08:21 ; Admin Dose 5 MCG; Start 09/16/16 at 09:00 Vitamin A/Vitamin D 1 applic 1 applic BID TOP Last administered on 09/25/16 08 :21; Admin Dose 1 APPLIC; Start 09/16/16 at 21:00 Piperacillin Sod/ Tazobactam Sod (Zosyn 3.375gm/ 100 ml (Pmx)) 100 ml @ 200 mls /hr Q8 IVPB Last administered on 09/25/16 05:24; Admin Dose 200 MLS/HR; Start 09/20/16 at 22:00 Acetaminophen/ Hydrocodone Bitart ([place] (5/325)) 1 tab DAILY PRN PO pain Last administered on 09/25/16 12:21; Admin Dose 1 TAB; Start 09/24/16 at 11:00 Doxycycline Hyclate (Vibramycin) 100 mg BID PO Last administered on 09/25/16 08:21; Admin Dose 100 MG; Start 09/24/16 at 21:00 Tramadol HCl ([place]am) 50 mg DAILY PRN PO Before PT Last administered on 11:13; Admin Dose 50 MG; Start 09/24/16 at 18:00 REILLY ALBERT NP Sep 25, 2016 12:34
--- NOTE | 2016-09-25 12:56 | CONS ---
Date/Time of Note Date/Time of Note DATE: 09/25/16 TIME: 12:54 Assessment/Plan Assessment/Plan Chief Complaint/Hosp Course Orthostatic hypotension: suspect from volume depletion due to ongoing diuretics. Resolved after holding diuretics DVT: on therapy PEA cardiac arrest: secondary to severe metabolic acidosis. No VT/VF or EKG changes to suggest primary cardiac etiology. Trops ok, EF preserved. Acute respiratory failure: intubated during code.Likely ARDS and some component of fluid overload. Now extubated 08/15. No issues since Acute diastolic heart failure: resolved with diuresis Severe metabolic acidosis: likely was the culprit for the arrest. Resolved Shock: septic.Off pressors. Resolved Acute renal failure: unclear etiology. Was on intermittent HD. Good UOP. HD stopped. Now resolved Hypoglycemia Hypothyroidism HTN -continue to hold lasix unless shows signs of volume overload -amlodipine 5mg BID -cozaar 50mg -Xarelto Problems: Consultation Date/Type/Reason Admit Date/Time August 01, 2016 at 00:50 Initial Consult Date 08/01/16 Type of Consultation: Cardiology 24 HR Interval Summary Free Text/Dictation No o/n events. Slow progress with PT Exam/Review of Systems Vital Signs Vitals Vital Signs Date Time Temp Pulse Resp B/P Pulse Ox O2 Delivery O2 Flow Rate FiO2 09/25/16 07:50 98.7 103 18 132/79 94 09/25/16 07:35 21 Intake and Output 09/24/16 09/24/16 09/25/16 15:00 23:00 07:00 Intake Total 1560 ml 780 ml Output Total 800 ml 750 ml Balance 760 ml 30 ml Results Result Diagram: 09/25/16 0452 09/25/16 0452 Results 24 hrs Laboratory Tests Test 09/24/16 17:14 09/24/16 20:25 09/25/16 04:52 09/25/16 08:09 Bedside Glucose 90 110 99 White Blood Count 10.5 Red Blood Count 3.15 L Hemoglobin 9.3 L Hematocrit 29.8 L Mean Corpuscular Volume 94.6 Mean Corpuscular Hemoglobin 29.5 Mean Corpuscular Hemoglobin Concent 31.2 L Red Cell Distribution Width 15.6 H Platelet Count 425 H Mean Platelet Volume 10.4 Neutrophils % 52.8 Lymphocytes % 32.9 Monocytes % 7.3 Eosinophils % 6.0 Basophils % 0.7 Nucleated Red Blood Cells % 0.0 Neutrophils # 5.5 Lymphocytes # 3.4 H Monocytes # 0.8 Eosinophils # 0.6 H Basophils # 0.1 Nucleated Red Blood Cells # 0.0 Sodium Level 142 Potassium Level 5.0 Chloride Level 105 Carbon Dioxide Level 25 Anion Gap 17 H Blood Urea Nitrogen 33 H Creatinine 1.12 Glucose Level 87 Calcium Level 11.3 H Test 09/25/16 12:23 Bedside Glucose 107 Medications Medications Current Medications Ondansetron HCl (Zofran Inj) 4 mg Q6H PRN IV NAUSEA AND/OR VOMITING; Start at 03:00 Metoclopramide HCl (Reglan) 10 mg Q6H PRN IV NAUSEA AND/OR VOMITING; Start at 03:00 Acetaminophen (Tylenol Tab) 650 mg Q6H PRN PO PAIN LEVEL 1-3 OR FEVER Last administered on 09/13/16 22:22; Admin Dose 650 MG; Start 08/01/16 at 03:00 Acetaminophen (Tylenol Supp) 650 mg Q4H PRN [place] PAIN LEVEL 1-3 OR FEVER; Start 08/01/16 at 06:30 Miscellaneous Information 1 ea NOTE XX ; Start 08/02/16 at 09:00 Glucose (Glutose) 15 gm Q15M PRN PO DECREASED GLUCOSE; Start 08/02/16 at 09:00 Glucose (Glutose) 22.5 gm Q15M PRN PO DECREASED GLUCOSE; Start 08/02/16 at 09:00 Dextrose (D50w Syringe) 25 ml Q15M PRN IV DECREASED GLUCOSE Last administered on 08/16/16 06:30; Admin Dose 25 ML; Start 08/02/16 at 09:00 Dextrose (D50w Syringe) 50 ml Q15M PRN IV DECREASED GLUCOSE; Start 08/02/16 at 09:00 Glucagon (Glucagen) 1 mg Q15M PRN IM DECREASED GLUCOSE; Start 08/02/16 at 09:00 Glucose (Glutose) 15 gm Q15M PRN BUCCAL DECREASED GLUCOSE; Start 08/02/16 at 09: 00 Calcium Carbonate (Ca Carbonate) 1,250 mg Q12 NGT Last administered on 08:21; Admin Dose 1,250 MG; Start 08/11/16 at 09:00 IV Flush (NS 10 ml) 10 ml PRN PRN IV FLUSH LINE; Start 08/11/16 at 20:00 Pantoprazole (Protonix Tab) 40 mg DAILY@06 PO Last administered on 09/25/16 05 :24; Admin Dose 40 MG; Start 08/18/16 at 06:00 Lorazepam (Ativan) 0.5 mg Q8H PRN PO ANXIETY; Start 08/19/16 at 14:00 Losartan Potassium (Cozaar) 50 mg DAILY PO Last administered on 09/25/16 08:22 ; Admin Dose 50 MG; Start 08/20/16 at 09:00 Amlodipine Besylate (Norvasc) 5 mg BID PO Last administered on 09/25/16 08:22 ; Admin Dose 5 MG; Start 08/23/16 at 21:00 Polyethylene Glycol (Miralax) 17 gm BID PO Last administered on 09/25/16 08:22 ; Admin Dose 17 GM; Start 08/26/16 at 09:00 Bisacodyl (Dulcolax) 10 mg DAILY PRN PO CONSTIPATION Last administered on 16:27; Admin Dose 10 MG; Start 08/26/16 at 08:00 Levothyroxine Sodium (Synthroid) 200 mcg DAILY@06 PO Last administered on 05:24; Admin Dose 200 MCG; Start 09/09/16 at 06:00 Liothyronine Sodium (Cytomel) 5 mcg BID PO Last administered on 09/25/16 08:21 ; Admin Dose 5 MCG; Start 09/16/16 at 09:00 Vitamin A/Vitamin D 1 applic 1 applic BID TOP Last administered on 09/25/16 08 :21; Admin Dose 1 APPLIC; Start 09/16/16 at 21:00 Piperacillin Sod/ Tazobactam Sod (Zosyn 3.375gm/ 100 ml (Pmx)) 100 ml @ 200 mls /hr Q8 IVPB Last administered on 09/25/16 05:24; Admin Dose 200 MLS/HR; Start 09/20/16 at 22:00 Acetaminophen/ Hydrocodone Bitart ([employer] (5/325)) 1 tab DAILY PRN PO pain Last administered on 09/25/16 12:21; Admin Dose 1 TAB; Start 09/24/16 at 11:00 Doxycycline Hyclate (Vibramycin) 100 mg BID PO Last administered on 09/25/16 08:21; Admin Dose 100 MG; Start 09/24/16 at 21:00 Tramadol HCl (Ultram) 50 mg DAILY PRN PO Before PT Last administered on 11:13; Admin Dose 50 MG; Start 09/24/16 at 18:00 SEPIDEH HAN Sep 25, 2016 12:55
[2016-09-25 14:38] VITALS: BP 121/71; RESP 18
--- NOTE | 2016-09-25 15:06 | RADRPT ---
PROCEDURE: XR Knee. CLINICAL INDICATION: Left knee pain. TECHNIQUE: AP and lateral of the left knee were obtained. The images reviewed on a PACS workstati on. COMPARISON: None. FINDINGS: Osteophytosis and subchondral sclerosis in the medial compartment is seen. No acute fracture or disl ocation is seen. A large suprapatellar joint effusion is seen. Prepatellar and infrapatellar soft ti ssue swelling is seen. IMPRESSION: 1. Large suprapatellar joint effusion. 2. Prepatellar and infrapatellar soft tissue swelling. RPTAT: HPNM Physician Samaria Date Time Electronically viewed and signed by Physician Smaaria on 09/25/2016 15:05 /
--- NOTE | 2016-09-25 16:05 | PN ---
Date/Time of Note Date/Time of Note DATE: 09/25/16 TIME: 15:56 Assessment/Plan VTE Prophylaxis VTE Prophylaxis Intervention: SCD's Lines/Catheters IV Catheter Type (from Nrs): Saline Lock Urinary Cath still in place: No Assessment/Plan Assessment/Plan 61 M admitted in PEA arrest 2/2 severe metabolic acidosis with ROSC following CPR. Etiology of metabolic acidosis possibly from septic shock/lactic acidosis? from aspiration pna? Metabolic acidosis resolved following temporary HD; had fever 7.12, suspect 2/2 proteus UTI with hematologic spread, on antibiotics. Also with several mos of L knee pain which is now says occ impairs ability to ambulate 1. proteus bacteremia from source and ?aspiration pna: abx and length of therapy as per ID 2. sp PEA cardiac arrest 2/2 severe metabolic acidosis. As per Cardiology, no cardiac etiology of cardiac arrest. . Lasix/flomax stopped for orthostasis -Continue physical therapy 3. Acute on chronic diastolic heart failure. Improved with diuresis earlier this admission but, again, because of hypotension, now off Lasix medications. 4. Acute kidney injury that required temporary hemodialysis RESOLVED 5. Essential hypertension. Continue antihypertensives. 6. Acute encephalopathy secondary to #2, RESOLVED 7. Acute respiratory failure with ARDS and pulmonary edema, status post mechanical ventilation, SP EXTUBATION 8. Hypothyroidism, severe. Continue Synthroid.cytomel as per endo 9. Debility. PT following 10. Normocytic normochromic anemia. monitor 11. Elevated BGs. Hemoglobin A1c 5.0. Continue sliding scale insulin. 12. Occlusive thrombosis of the left cephalic vein, and now positive lower extremity DVT-continue Xarelto (likely will need 6 months of treatment with this medicine) 13. L knee pain: XR with effusion. suspect gout v OA. IR aspiration ordered along with cell count and diff. if gout, will start prednisone cannot use NSAIDs given pt on Xarelto and this would 2x bleeding risk dispo: CM looking for RHIANNON Subjective 24 Hr Interval Summary Free Text/Dictation Pt reports several mos of intermittent L knee swelling.States it makes WB uncomfortable at times. Was possibly previously diagnosed with gout Exam/Review of Systems Vital Signs Vitals Vital Signs Date Time Temp Pulse Resp B/P Pulse Ox O2 Delivery O2 Flow Rate FiO2 09/25/16 14:38 97.7 93 18 121/71 94 09/25/16 13:47 21 Intake and Output 09/24/16 09/24/16 09/25/16 15:00 23:00 07:00 Intake Total 1560 ml 780 ml Output Total 800 ml 750 ml Balance 760 ml 30 ml Exam nad, laying in bed no mrg lungs clear abd soft +mild L knee effusion Results Result Diagram: 09/25/16 0452 09/25/16 0452 Results 24 hrs Laboratory Tests Test 09/24/16 17:14 09/24/16 20:25 09/25/16 04:52 09/25/16 08:09 Bedside Glucose 90 110 99 White Blood Count 10.5 Red Blood Count 3.15 L Hemoglobin 9.3 L Hematocrit 29.8 L Mean Corpuscular Volume 94.6 Mean Corpuscular Hemoglobin 29.5 Mean Corpuscular Hemoglobin Concent 31.2 L Red Cell Distribution Width 15.6 H Platelet Count 425 H Mean Platelet Volume 10.4 Neutrophils % 52.8 Lymphocytes % 32.9 Monocytes % 7.3 Eosinophils % 6.0 Basophils % 0.7 Nucleated Red Blood Cells % 0.0 Neutrophils # 5.5 Lymphocytes # 3.4 H Monocytes # 0.8 Eosinophils # 0.6 H Basophils # 0.1 Nucleated Red Blood Cells # 0.0 Sodium Level 142 Potassium Level 5.0 Chloride Level 105 Carbon Dioxide Level 25 Anion Gap 17 H Blood Urea Nitrogen 33 H Creatinine 1.12 Glucose Level 87 Calcium Level 11.3 H Test 09/25/16 12:23 Bedside Glucose 107 Medications Medications Current Medications Ondansetron HCl (Zofran Inj) 4 mg Q6H PRN IV NAUSEA AND/OR VOMITING; Start at 03:00 Metoclopramide HCl (Reglan) 10 mg Q6H PRN IV NAUSEA AND/OR VOMITING; Start at 03:00 Acetaminophen (Tylenol Tab) 650 mg Q6H PRN PO PAIN LEVEL 1-3 OR FEVER Last administered on 09/13/16t 22:22; Admin Dose 650 MG; Start 08/01/16 at 03:00 Acetaminophen (Tylenol Supp) 650 mg Q4H PRN [place] PAIN LEVEL 1-3 OR FEVER; Start 08/01/16 at 06:30 Miscellaneous Information 1 ea NOTE XX ; Start 08/02/16 at 09:00 Glucose (Glutose) 15 gm Q15M PRN PO DECREASED GLUCOSE; Start 08/02/16 at 09:00 Glucose (Glutose) 22.5 gm Q15M PRN PO DECREASED GLUCOSE; Start 08/02/16 at 09:00 Dextrose (D50w Syringe) 25 ml Q15M PRN IV DECREASED GLUCOSE Last administered on 08/16/16 06:30; Admin Dose 25 ML; Start 08/02/16 at 09:00 Dextrose (D50w Syringe) 50 ml Q15M PRN IV DECREASED GLUCOSE; Start 08/02/16 at 09:00 Glucagon (Glucagen) 1 mg Q15M PRN IM DECREASED GLUCOSE; Start 08/02/16 at 09:00 Glucose (Glutose) 15 gm Q15M PRN BUCCAL DECREASED GLUCOSE; Start 08/02/16 at 09: 00 Calcium Carbonate (Ca Carbonate) 1,250 mg Q12 NGT Last administered on 08:21; Admin Dose 1,250 MG; Start 08/11/16 at 09:00 IV Flush (NS 10 ml) 10 ml PRN PRN IV FLUSH LINE; Start 08/11/16 at 20:00 Pantoprazole (Protonix Tab) 40 mg DAILY@06 PO Last administered on 09/25/16 05 :24; Admin Dose 40 MG; Start 08/18/16 at 06:00 Lorazepam (Ativan) 0.5 mg Q8H PRN PO ANXIETY; Start 08/19/16 at 14:00 Losartan Potassium (Cozaar) 50 mg DAILY PO Last administered on 09/25/16 08:22 ; Admin Dose 50 MG; Start 08/20/16 at 09:00 Amlodipine Besylate (Norvasc) 5 mg BID PO Last administered on 09/25/16 08:22 ; Admin Dose 5 MG; Start 08/23/16 at 21:00 Polyethylene Glycol (Miralax) 17 gm BID PO Last administered on 09/25/16 08:22 ; Admin Dose 17 GM; Start 08/26/16 at 09:00 Bisacodyl (Dulcolax) 10 mg DAILY PRN PO CONSTIPATION Last administered on 16:27; Admin Dose 10 MG; Start 08/26/16 at 08:00 Levothyroxine Sodium (Synthroid) 200 mcg DAILY@06 PO Last administered on 05:24; Admin Dose 200 MCG; Start 09/09/16 at 06:00 Liothyronine Sodium (Cytomel) 5 mcg BID PO Last administered on 09/25/16 08:21 ; Admin Dose 5 MCG; Start 09/16/16 at 09:00 Vitamin A/Vitamin D 1 applic 1 applic BID TOP Last administered on 09/25/16 08 :21; Admin Dose 1 APPLIC; Start 09/16/16 at 21:00 Piperacillin Sod/ Tazobactam Sod (Zosyn 3.375gm/ 100 ml (Pmx)) 100 ml @ 200 mls /hr Q8 IVPB Last administered on 09/25/16 15:43; Admin Dose 200 MLS/HR; Start 09/20/16 at 22:00 Acetaminophen/ Hydrocodone Bitart ([place] (5/325)) 1 tab DAILY PRN PO pain Last administered on 09/25/16 12:21; Admin Dose 1 TAB; Start 09/24/16 at 11:00 Doxycycline Hyclate (Vibramycin) 100 mg BID PO Last administered on 09/25/16 08:21; Admin Dose 100 MG; Start 09/24/16 at 21:00 Tramadol HCl (Ultram) 50 mg DAILY PRN PO Before PT Last administered on 11:13; Admin Dose 50 MG; Start 09/24/16 at 18:00 GABRIELA GONZALEZ MD Sep 25, 2016 16:05
[2016-09-25 17:39] LABS: INR 2.44; PROTIME 26.8 Sec (12.2-14.2); PT RATIO 2.1
[2016-09-25 20:00] VITALS: BP 126/70; RESP 18
[2016-09-26 02:50] VITALS: BP 122/69; RESP 16
[2016-09-26 06:17] LABS: BASOPHIL # 0.1 10^3/ul (0.0-0.1); BASOPHILS % 0.8 % (0.0-2.0); EOSINOPHILS # 0.8 10^3/ul (0.0-0.5); EOSINOPHILS % 7.2 % (0.0-7.0); HEMATOCRIT 29.7 % (42.0-52.0); HEMOGLOBIN 9.2 g/dl (14.0-18.0); LYMPHOCYTES # 3.7 10^3/ul (0.8-2.9); LYMPHOCYTES % 34.7 % (15.0-51.0); MEAN CORPUSCULAR HEMOGLOBIN 29.4 pg (29.0-33.0); MEAN CORPUSCULAR VOLUME 94.9 fl (82.0-101.0); MEAN PLATELET VOLUME 10.4 fl (7.4-10.4); MONOCYTE # 0.7 10^3/ul (0.3-0.9); NEUTROPHIL # 5.3 10^3/ul (1.6-7.5); NEUTROPHILS % 49.9 % (39.0-77.0); PLATELET COUNT 408 10^3/UL (140-415); RED BLOOD COUNT 3.13 10^6/ul (4.70-6.10); RED CELL DISTRIBUTION WIDTH 15.8 % (11.5-14.5); WHITE BLOOD COUNT 10.5 10^3/ul (4.8-10.8)
[2016-09-26] MEDS: PANTOPRAZOLE (EC) 40 MG TAB PO SCH (06:26)
[2016-09-26] MEDS: LEVOTHYROXINE 100 MCG TAB PO SCH (06:26)
[2016-09-26] MEDS: PIPER-TAZO 3.375 GM IV (PMX) 100 ML IVPB SCH ×2 (06:26→14:46)
[2016-09-26 06:39] LABS: ALBUMIN 3.7 g/dl (3.3-4.9); ALBUMIN/GLOBULIN RATIO 0.67; CALCIUM 11.7 mg/dl (8.4-10.2); CREATININE 1.21 mg/dl (0.61-1.24); POTASSIUM 5.1 mmol/L (3.5-5.1); TOTAL PROTEIN 9.2 g/dl (6.1-8.1)
[2016-09-26 06:49] LABS: INR 2.19; PROTIME 24.6 Sec (12.2-14.2); PT RATIO 1.9
[2016-09-26 06:50] LABS: PARTIAL THROMBOPLASTIN TIME 45.4 Sec (25.0-35.0)
[2016-09-26 07:27] VITALS: BP 121/74; RESP 18
[2016-09-26] MEDS: ALBUTEROL/IPRATROPIUM (NEB) 3 ML AMP HHN SCH ×2 (07:42→14:08)
[2016-09-26] MEDS: INSULIN ASPART [NOVOLOG] 3 ML PEN SC SCH ×3 (08:11→17:46)
[2016-09-26] MEDS: CA CARBONATE (250 MG/ML) 5ML CUP NGT SCH (08:23)
[2016-09-26] MEDS: DOXYCYCLINE 100 MG TAB PO SCH (08:24)
[2016-09-26] MEDS: VITAMIN A & D 5 GM OINT PACKET TOP SCH (08:24)
[2016-09-26] MEDS: LIOTHYRONINE 5 MCG TAB PO SCH (08:24)
[2016-09-26] MEDS: AMLODIPINE 5 MG TAB PO SCH (08:25)
[2016-09-26] MEDS: LOSARTAN 50 MG TAB PO SCH (08:25)
[2016-09-26] MEDS: POLYETHYLENE GLYCOL 17 GM PACKET PO SCH (08:27)
[2016-09-26] MEDS: traMADol 50 MG TAB PO PRN (12:28)
--- NOTE | 2016-09-26 13:09 | CONS ---
Date/Time of Note Date/Time of Note DATE: 09/26/16 TIME: 13:07 Assessment/Plan Assessment/Plan Chief Complaint/Hosp Course Orthostatic hypotension: suspect from volume depletion due to ongoing diuretics. Resolved after holding diuretics DVT: on therapy PEA cardiac arrest: secondary to severe metabolic acidosis. No VT/VF or EKG changes to suggest primary cardiac etiology. Trops ok, EF preserved. Acute respiratory failure: intubated during code.Likely ARDS and some component of fluid overload. Now extubated 08/15. No issues since Acute diastolic heart failure: resolved with diuresis Severe metabolic acidosis: likely was the culprit for the arrest. Resolved Shock: septic.Off pressors. Resolved Acute renal failure: unclear etiology. Was on intermittent HD. Good UOP. HD stopped. Now resolved Hypoglycemia Hypothyroidism HTN -continue to hold lasix unless shows signs of volume overload -amlodipine 5mg BID -cozaar 50mg -Xarelto Problems: Consultation Date/Type/Reason Admit Date/Time August 01, 2016 at 00:50 Initial Consult Date 08/01/16 Type of Consultation: Cardiology 24 HR Interval Summary Free Text/Dictation Plan for knee tap today. No dizziness Exam/Review of Systems Vital Signs Vitals Vital Signs Date Time Temp Pulse Resp B/P Pulse Ox O2 Delivery O2 Flow Rate FiO2 09/26/16 07:42 83 20 96 21 09/26/16 07:27 97.8 121/74 Intake and Output 09/25/16 09/25/16 09/26/16 15:00 23:00 07:00 Intake Total 1480 ml 700 ml Output Total 900 ml 850 ml Balance 580 ml -150 ml Exam Constitutional: alert, oriented Psych: no complaints Head: atraumatic, normocephalic Neck: supple, No jvd Respiratory: clear to auscultation, diminished breath sounds, No crackles/rales Cardiovascular: regular rate and rhythm, No edema, No systolic murmur Gastrointestinal: non-tender, soft, No distended Neurological: nl mental status, nl speech Results Result Diagram: 09/26/16 0548 09/26/16 0548 Results 24 hrs Laboratory Tests Test 09/25/16 16:54 09/25/16 17:43 09/25/16 20:42 09/26/16 05:48 Prothrombin Time 26.8 #H 24.6 H Prothrombin Time Ratio 2.1 1.9 INR International Normalized Ratio 2.44 2.19 Activated Partial Thromboplast Time 44.0 H 45.4 H Bedside Glucose 116 119 White Blood Count 10.5 Red Blood Count 3.13 L Hemoglobin 9.2 L Hematocrit 29.7 L Mean Corpuscular Volume 94.9 Mean Corpuscular Hemoglobin 29.4 Mean Corpuscular Hemoglobin Concent 31.0 L Red Cell Distribution Width 15.8 H Platelet Count 408 Mean Platelet Volume 10.4 Neutrophils % 49.9 Lymphocytes % 34.7 Monocytes % 7.0 Eosinophils % 7.2 H Basophils % 0.8 Nucleated Red Blood Cells % 0.0 Neutrophils # 5.3 Lymphocytes # 3.7 H Monocytes # 0.7 Eosinophils # 0.8 H Basophils # 0.1 Nucleated Red Blood Cells # 0.0 Sodium Level 141 Potassium Level 5.1 Chloride Level 103 Carbon Dioxide Level 26 Anion Gap 17 H Blood Urea Nitrogen 37 H Creatinine 1.21 Glucose Level 88 Calcium Level 11.7 H Total Bilirubin 0.0 L Direct Bilirubin 0.00 Indirect Bilirubin 0.0 Aspartate Amino Transf (AST/SGOT) 19 Alanine Aminotransferase (ALT/SGPT) 25 Alkaline Phosphatase 165 H Total Protein 9.2 H Albumin 3.7 Globulin 5.50 H Albumin/Globulin Ratio 0.67 Parathyroid Hormone (Intact) Test 09/26/16 08:01 09/26/16 11:59 Bedside Glucose 94 137 Medications Medications Current Medications Ondansetron HCl (Zofran Inj) 4 mg Q6H PRN IV NAUSEA AND/OR VOMITING; Start at 03:00 Metoclopramide HCl (Reglan) 10 mg Q6H PRN IV NAUSEA AND/OR VOMITING; Start at 03:00 Acetaminophen (Tylenol Tab) 650 mg Q6H PRN PO PAIN LEVEL 1-3 OR FEVER Last administered on 09/13/16t 22:22; Admin Dose 650 MG; Start 08/01/16 at 03:00 Acetaminophen (Tylenol Supp) 650 mg Q4H PRN [place] PAIN LEVEL 1-3 OR FEVER; Start 08/01/16 at 06:30 Miscellaneous Information 1 ea NOTE XX ; Start 08/02/16 at 09:00 Glucose (Glutose) 15 gm Q15M PRN PO DECREASED GLUCOSE; Start 08/02/16 at 09:00 Glucose (Glutose) 22.5 gm Q15M PRN PO DECREASED GLUCOSE; Start 08/02/16 at 09:00 Dextrose (D50w Syringe) 25 ml Q15M PRN IV DECREASED GLUCOSE Last administered on 08/16/16 06:30; Admin Dose 25 ML; Start 08/02/16 at 09:00 Dextrose (D50w Syringe) 50 ml Q15M PRN IV DECREASED GLUCOSE; Start 08/02/16 at 09:00 Glucagon (Glucagen) 1 mg Q15M PRN IM DECREASED GLUCOSE; Start 08/02/16 at 09:00 Glucose (Glutose) 15 gm Q15M PRN BUCCAL DECREASED GLUCOSE; Start 08/02/16 at 09: 00 Calcium Carbonate (Ca Carbonate) 1,250 mg Q12 NGT Last administered on 08:23; Admin Dose 1,250 MG; Start 08/11/16 at 09:00 IV Flush (NS 10 ml) 10 ml PRN PRN IV FLUSH LINE; Start 08/11/16 at 20:00 Pantoprazole (Protonix Tab) 40 mg DAILY@06 PO Last administered on 09/26/16 06 :26; Admin Dose 40 MG; Start 08/18/16 at 06:00 Lorazepam (Ativan) 0.5 mg Q8H PRN PO ANXIETY; Start 08/19/16 at 14:00 Losartan Potassium (Cozaar) 50 mg DAILY PO Last administered on 09/26/16 08:25 ; Admin Dose 50 MG; Start 08/20/16 at 09:00 Amlodipine Besylate (Norvasc) 5 mg BID PO Last administered on 09/26/16 08:25 ; Admin Dose 5 MG; Start 08/23/16 at 21:00 Polyethylene Glycol (Miralax) 17 gm BID PO Last administered on 09/25/16 20:43 ; Admin Dose 17 GM; Start 08/26/16 at 09:00 Bisacodyl (Dulcolax) 10 mg DAILY PRN PO CONSTIPATION Last administered on 16:27; Admin Dose 10 MG; Start 08/26/16 at 08:00 Levothyroxine Sodium (Synthroid) 200 mcg DAILY@06 PO Last administered on 06:26; Admin Dose 200 MCG; Start 09/09/16 at 06:00 Liothyronine Sodium (Cytomel) 5 mcg BID PO Last administered on 09/26/16 08:24 ; Admin Dose 5 MCG; Start 09/16/16 at 09:00 Vitamin A/Vitamin D 1 applic 1 applic BID TOP Last administered on 09/26/16 08 :24; Admin Dose 1 APPLIC; Start 09/16/16 at 21:00 Piperacillin Sod/ Tazobactam Sod (Zosyn 3.375gm/ 100 ml (Pmx)) 100 ml @ 200 mls /hr Q8 IVPB Last administered on 09/26/16 06:26; Admin Dose 200 MLS/HR; Start 09/20/16 at 22:00 Acetaminophen/ Hydrocodone Bitart ([place] (5/325)) 1 tab DAILY PRN PO pain Last administered on 09/25/16 12:21; Admin Dose 1 TAB; Start 09/24/16 at 11:00 Doxycycline Hyclate (Vibramycin) 100 mg BID PO Last administered on 09/26/16 08:24; Admin Dose 100 MG; Start 09/24/16 at 21:00 Tramadol HCl (Ultram) 50 mg DAILY PRN PO Before PT Last administered on 12:28; Admin Dose 50 MG; Start 09/24/16 at 18:00 Miscellaneous Information (* Miscellaneous Pharmacy Order) PLEASE HOLD 0800 AM DOSE... ONCE XX ; Start 09/25/16 at 23:00; Stop 09/26/16 at 17:50 SEPIDEH HAN Sep 26, 2016 13:09
--- NOTE | 2016-09-26 13:51 | PN ---
Date/Time of Note Date/Time of Note DATE: 09/26/16 TIME: 13:48 Assessment/Plan VTE Prophylaxis VTE Prophylaxis Intervention: SCD's Lines/Catheters IV Catheter Type (from Nrs): Saline Lock Urinary Cath still in place: No Assessment/Plan Assessment/Plan 61 M admitted in PEA arrest 2/2 severe metabolic acidosis with ROSC following CPR. Etiology of metabolic acidosis possibly from septic shock/lactic acidosis? from aspiration pna? Metabolic acidosis resolved following temporary HD; had fever 7.12, suspect 2/2 proteus UTI with hematologic spread, on antibiotics. Also with several mos of L knee pain which he now says occ impairs ability to ambulate 1. proteus bacteremia from source and ?aspiration pna: abx and length of therapy as per ID 2. sp PEA cardiac arrest 2/2 severe metabolic acidosis. As per Cardiology, no cardiac etiology of cardiac arrest. . Lasix/flomax stopped for orthostasis - Continue physical therapy 3. Acute on chronic diastolic heart failure. Improved with diuresis earlier this admission. lasix held for orthostasis 4. Acute kidney injury that required temporary hemodialysis RESOLVED 5. Essential hypertension. Continue antihypertensives. 6. Acute encephalopathy secondary to #2, RESOLVED 7. Acute respiratory failure with ARDS and pulmonary edema, status post mechanical ventilation, SP EXTUBATION 8. Hypothyroidism, severe. Continue Synthroid.cytomel as per endo 9. Normocytic normochromic anemia. monitor 10. Elevated BGs. Hemoglobin A1c 5.0. Continue sliding scale insulin. 11.LE DVT diagnosed 09.17.16 -continue Xarelto (likely will need 6 months of treatment with this medicine) 13. L knee pain: XR with effusion. suspect gout v OA. IR aspiration ordered along with crystals, culture, cell count and diff. if gout, will start prednisone cannot use NSAIDs given pt on Xarelto and this would 2x bleeding risk dispo: CM looking for RHIANNON Subjective 24 Hr Interval Summary Free Text/Dictation Sister about prospect of pt's knee aspiration later today Exam/Review of Systems Vital Signs Vitals Vital Signs Date Time Temp Pulse Resp B/P Pulse Ox O2 Delivery O2 Flow Rate FiO2 09/26/16 07:42 83 20 96 21 09/26/16 07:27 97.8 121/74 Intake and Output 09/25/16 09/25/16 09/26/16 15:00 23:00 07:00 Intake Total 1480 ml 700 ml Output Total 900 ml 850 ml Balance 580 ml -150 ml Exam nad laying in bed no mrg lungs clear abd soft knee effusion unchanged, no overlying erythema Results Result Diagram: 09/26/16 0548 09/26/16 0548 Results 24 hrs Laboratory Tests Test 09/25/16 16:54 09/25/16 17:43 09/25/16 20:42 09/26/16 05:48 Prothrombin Time 26.8 #H 24.6 H Prothrombin Time Ratio 2.1 1.9 INR International Normalized Ratio 2.44 2.19 Activated Partial Thromboplast Time 44.0 H 45.4 H Bedside Glucose 116 119 White Blood Count 10.5 Red Blood Count 3.13 L Hemoglobin 9.2 L Hematocrit 29.7 L Mean Corpuscular Volume 94.9 Mean Corpuscular Hemoglobin 29.4 Mean Corpuscular Hemoglobin Concent 31.0 L Red Cell Distribution Width 15.8 H Platelet Count 408 Mean Platelet Volume 10.4 Neutrophils % 49.9 Lymphocytes % 34.7 Monocytes % 7.0 Eosinophils % 7.2 H Basophils % 0.8 Nucleated Red Blood Cells % 0.0 Neutrophils # 5.3 Lymphocytes # 3.7 H Monocytes # 0.7 Eosinophils # 0.8 H Basophils # 0.1 Nucleated Red Blood Cells # 0.0 Sodium Level 141 Potassium Level 5.1 Chloride Level 103 Carbon Dioxide Level 26 Anion Gap 17 H Blood Urea Nitrogen 37 H Creatinine 1.21 Glucose Level 88 Calcium Level 11.7 H Total Bilirubin 0.0 L Direct Bilirubin 0.00 Indirect Bilirubin 0.0 Aspartate Amino Transf (AST/SGOT) 19 Alanine Aminotransferase (ALT/SGPT) 25 Alkaline Phosphatase 165 H Total Protein 9.2 H Albumin 3.7 Globulin 5.50 H Albumin/Globulin Ratio 0.67 Parathyroid Hormone (Intact) Test 09/26/16 08:01 09/26/16 11:59 Bedside Glucose 94 137 Medications Medications Current Medications Ondansetron HCl (Zofran Inj) 4 mg Q6H PRN IV NAUSEA AND/OR VOMITING; Start at 03:00 Metoclopramide HCl (Reglan) 10 mg Q6H PRN IV NAUSEA AND/OR VOMITING; Start at 03:00 Acetaminophen (Tylenol Tab) 650 mg Q6H PRN PO PAIN LEVEL 1-3 OR FEVER Last administered on 09/13/16 22:22; Admin Dose 650 MG; Start 08/01/16 at 03:00 Acetaminophen (Tylenol Supp) 650 mg Q4H PRN SD PAIN LEVEL 1-3 OR FEVER; Start 08/01/16 at 06:30 Miscellaneous Information 1 ea NOTE XX ; Start 08/02/16 at 09:00 Glucose (Glutose) 15 gm Q15M PRN PO DECREASED GLUCOSE; Start 08/02/16 at 09:00 Glucose (Glutose) 22.5 gm Q15M PRN PO DECREASED GLUCOSE; Start 08/02/16 at 09:00 Dextrose (D50w Syringe) 25 ml Q15M PRN IV DECREASED GLUCOSE Last administered on 08/16/16 06:30; Admin Dose 25 ML; Start 08/02/16 at 09:00 Dextrose (D50w Syringe) 50 ml Q15M PRN IV DECREASED GLUCOSE; Start 08/02/16 at 09:00 Glucagon (Glucagen) 1 mg Q15M PRN IM DECREASED GLUCOSE; Start 08/02/16 at 09:00 Glucose (Glutose) 15 gm Q15M PRN BUCCAL DECREASED GLUCOSE; Start 08/02/16 at 09: 00 Calcium Carbonate (Ca Carbonate) 1,250 mg Q12 NGT Last administered on 08:23; Admin Dose 1,250 MG; Start 08/11/16 at 09:00 IV Flush (NS 10 ml) 10 ml PRN PRN IV FLUSH LINE; Start 08/11/16 at 20:00 Pantoprazole (Protonix Tab) 40 mg DAILY@06 PO Last administered on 09/26/16 06 :26; Admin Dose 40 MG; Start 08/18/16 at 06:00 Lorazepam (Ativan) 0.5 mg Q8H PRN PO ANXIETY; Start 08/19/16 at 14:00 Losartan Potassium (Cozaar) 50 mg DAILY PO Last administered on 09/26/16 08:25 ; Admin Dose 50 MG; Start 08/20/16 at 09:00 Amlodipine Besylate (Norvasc) 5 mg BID PO Last administered on 09/26/16 08:25 ; Admin Dose 5 MG; Start 08/23/16 at 21:00 Polyethylene Glycol (Miralax) 17 gm BID PO Last administered on 09/25/16 20:43 ; Admin Dose 17 GM; Start 08/26/16 at 09:00 Bisacodyl (Dulcolax) 10 mg DAILY PRN PO CONSTIPATION Last administered on 16:27; Admin Dose 10 MG; Start 08/26/16 at 08:00 Levothyroxine Sodium (Synthroid) 200 mcg DAILY@06 PO Last administered on 06:26; Admin Dose 200 MCG; Start 09/09/16 at 06:00 Liothyronine Sodium (Cytomel) 5 mcg BID PO Last administered on 09/26/16 08:24 ; Admin Dose 5 MCG; Start 09/16/16 at 09:00 Vitamin A/Vitamin D 1 applic 1 applic BID TOP Last administered on 09/26/16 08 :24; Admin Dose 1 APPLIC; Start 09/16/16 at 21:00 Piperacillin Sod/ Tazobactam Sod (Zosyn 3.375gm/ 100 ml (Pmx)) 100 ml @ 200 mls /hr Q8 IVPB Last administered on 09/26/16 06:26; Admin Dose 200 MLS/HR; Start 09/20/16 at 22:00 Acetaminophen/ Hydrocodone Bitart ([place] (5/325)) 1 tab DAILY PRN PO pain Last administered on 09/25/16 12:21; Admin Dose 1 TAB; Start 09/24/16 at 11:00 Doxycycline Hyclate (Vibramycin) 100 mg BID PO Last administered on 09/26/16 08:24; Admin Dose 100 MG; Start 09/24/16 at 21:00 Tramadol HCl (Ultram) 50 mg DAILY PRN PO Before PT Last administered on 12:28; Admin Dose 50 MG; Start 09/24/16 at 18:00 Miscellaneous Information (* Miscellaneous Pharmacy Order) PLEASE HOLD 0800 AM DOSE... ONCE XX ; Start 09/25/16 at 23:00; Stop 09/26/16 at 17:50 GABRIELA GONZALEZ MD Sep 26, 2016 13:51
[2016-09-26 14:38] VITALS: BP 144/73; RESP 18
--- NOTE | 2016-09-26 15:20 | CONS ---
Date/Time of Note Date/Time of Note DATE: 09/26/16 TIME: 15:07 Assessment/Plan Assessment/Plan Chief Complaint/Hosp Course ID PROGRESS NOTE TOTAL ABX DAY #13 => Zosyn #6 + Doxy s/p Ceftriaxone-> tapered to Levaquin 09/26/16 0548 09/26/16 0548 24H INTERVAL SUMMARY * Patient on day #13 /14 for GNR (+)BCx due to GNR UTI -> on 09/16/16 ID recommended he may TNS out on PO Cipro to complete 14 days course for urosepsis ; subsequently there was concern of ASP PNA event per CHEST CT findings of " Mild patchy right upper lobe pneumonia". Patient remained inhouse and ABX coverage was broadened to Zosyn on 09/21/15. * The patient is now pending TNS to SNF which is being held up due to IV ABX coverage. * Pt is stable, no fevers, no complaints offered, VSS, no fevers, voiding OK urinal, chart reviewed * MICRO: 09/12/16 (+)GNR UTI w/(+)BCx = urosepsis Organism 1 PROTEUS MIRABILIs P. MIRAB M.I.C. RX --------- --- AMPICILLIN <=2 S CEFAZOLIN <=4 S CEFEPIME <=1 S CEFOTAXIME S CIPROFLOXACIN <=0.25 S GENTAMICIN <=1 S LEVOFLOXACIN <=0.12 S TOBRAMYCIN <=1 S TRIMETHOPRIM/SULFAMETHOXAZOLE <=20 S PHYSICAL EXAMINATION: GENERAL: VSS, NAD, no fevers HEENT: Unremarkable, NECK: Supple, CHEST: Equal chest rise bilaterally, without dyspnea on observation HEART: Pulse RRR ABDOMEN: Soft EXTREMITIES: Warm SKIN: Warm, dry ID ASSESSMENT: 61 yo Morbid Obese M admitted with: 1. s/p Gram-negative fanta UTI -> Sepsis with bacteremia = urosepsis Organism 1 PROTEUS MIRABILIS P. MIRAB M.I.C. RX --------- --- AMPICILLIN <=2 S CEFAZOLIN <=4 S CEFEPIME <=1 S CEFOTAXIME S CIPROFLOXACIN <=0.25 S GENTAMICIN <=1 S LEVOFLOXACIN <=0.12 S TOBRAMYCIN <=1 S TRIMETHOPRIM/SULFAMETHOXAZOLE <=20 S 2. S/p acute respiratory failure and septic shock. 3. Acute kidney injury 4. Status post cardiopulmonary arrest. 5. History of ETOH abuse. 7. Mild patchy right upper lobe pneumonia=> Concern for aspiration PNA per notes INVASIVES: * PIV ABX ALLERGIES: AZITH CURRENT ABX: TOTAL ABX DAY #13 => Zosyn #6 + Doxy s/p Ceftriaxone-> tapered to Levaquin ID RECOMMENDATIONS: 1. DC Zosyn, DC Doxy 2. Levaquin 750mg po daily x 3 days 3. Patient may DC home vs TNS to SNF PO ABX Levaquin 750mg po daily x 3 days ; 09/27; 09/28 when cleared by primary * * D/W Dr. Briseno who concurs. . . . . Problems: Consultation Date/Type/Reason Admit Date/Time August 01, 2016 at 00:50 Initial Consult Date 08/01/16 Type of Consultation: ID Exam/Review of Systems Vital Signs Vitals Vital Signs Date Time Temp Pulse Resp B/P Pulse Ox O2 Delivery O2 Flow Rate FiO2 09/26/16 14:38 98.2 98 18 144/73 95 09/26/16 14:09 21 Intake and Output 09/25/16 09/25/16 09/26/16 15:00 23:00 07:00 Intake Total 1480 ml 700 ml Output Total 900 ml 850 ml Balance 580 ml -150 ml Results Result Diagram: 09/26/16 0548 09/26/16 0548 Results 24 hrs Laboratory Tests Test 09/25/16 16:54 09/25/16 17:43 09/25/16 20:42 09/26/16 05:48 Prothrombin Time 26.8 #H 24.6 H Prothrombin Time Ratio 2.1 1.9 INR International Normalized Ratio 2.44 2.19 Activated Partial Thromboplast Time 44.0 H 45.4 H Bedside Glucose 116 119 White Blood Count 10.5 Red Blood Count 3.13 L Hemoglobin 9.2 L Hematocrit 29.7 L Mean Corpuscular Volume 94.9 Mean Corpuscular Hemoglobin 29.4 Mean Corpuscular Hemoglobin Concent 31.0 L Red Cell Distribution Width 15.8 H Platelet Count 408 Mean Platelet Volume 10.4 Neutrophils % 49.9 Lymphocytes % 34.7 Monocytes % 7.0 Eosinophils % 7.2 H Basophils % 0.8 Nucleated Red Blood Cells % 0.0 Neutrophils # 5.3 Lymphocytes # 3.7 H Monocytes # 0.7 Eosinophils # 0.8 H Basophils # 0.1 Nucleated Red Blood Cells # 0.0 Sodium Level 141 Potassium Level 5.1 Chloride Level 103 Carbon Dioxide Level 26 Anion Gap 17 H Blood Urea Nitrogen 37 H Creatinine 1.21 Glucose Level 88 Calcium Level 11.7 H Total Bilirubin 0.0 L Direct Bilirubin 0.00 Indirect Bilirubin 0.0 Aspartate Amino Transf (AST/SGOT) 19 Alanine Aminotransferase (ALT/SGPT) 25 Alkaline Phosphatase 165 H Total Protein 9.2 H Albumin 3.7 Globulin 5.50 H Albumin/Globulin Ratio 0.67 Parathyroid Hormone (Intact) Test 09/26/16 08:01 09/26/16 11:59 Bedside Glucose 94 137 Medications Medications Current Medications Ondansetron HCl (Zofran Inj) 4 mg Q6H PRN IV NAUSEA AND/OR VOMITING; Start at 03:00 Metoclopramide HCl (Reglan) 10 mg Q6H PRN IV NAUSEA AND/OR VOMITING; Start at 03:00 Acetaminophen (Tylenol Tab) 650 mg Q6H PRN PO PAIN LEVEL 1-3 OR FEVER Last administered on 09/13/16 22:22; Admin Dose 650 MG; Start 08/01/16 at 03:00 Acetaminophen (Tylenol Supp) 650 mg Q4H PRN PA PAIN LEVEL 1-3 OR FEVER; Start 08/01/16 at 06:30 Miscellaneous Information 1 ea NOTE XX ; Start 08/02/16 at 09:00 Glucose (Glutose) 15 gm Q15M PRN PO DECREASED GLUCOSE; Start 08/02/16 at 09:00 Glucose (Glutose) 22.5 gm Q15M PRN PO DECREASED GLUCOSE; Start 08/02/16 at 09:00 Dextrose (D50w Syringe) 25 ml Q15M PRN IV DECREASED GLUCOSE Last administered on 08/16/16 06:30; Admin Dose 25 ML; Start 08/02/16 at 09:00 Dextrose (D50w Syringe) 50 ml Q15M PRN IV DECREASED GLUCOSE; Start 08/02/16 at 09:00 Glucagon (Glucagen) 1 mg Q15M PRN IM DECREASED GLUCOSE; Start 08/02/16 at 09:00 Glucose (Glutose) 15 gm Q15M PRN BUCCAL DECREASED GLUCOSE; Start 08/02/16 at 09: 00 Calcium Carbonate (Ca Carbonate) 1,250 mg Q12 NGT Last administered on 08:23; Admin Dose 1,250 MG; Start 08/11/16 at 09:00 IV Flush (NS 10 ml) 10 ml PRN PRN IV FLUSH LINE; Start 08/11/16 at 20:00 Pantoprazole (Protonix Tab) 40 mg DAILY@06 PO Last administered on 09/26/16 06 :26; Admin Dose 40 MG; Start 08/18/16 at 06:00 Lorazepam (Ativan) 0.5 mg Q8H PRN PO ANXIETY; Start 08/19/16 at 14:00 Losartan Potassium (Cozaar) 50 mg DAILY PO Last administered on 09/26/16 08:25 ; Admin Dose 50 MG; Start 08/20/16 at 09:00 Amlodipine Besylate (Norvasc) 5 mg BID PO Last administered on 09/26/16 08:25 ; Admin Dose 5 MG; Start 08/23/16 at 21:00 Polyethylene Glycol (Miralax) 17 gm BID PO Last administered on 09/25/16 20:43 ; Admin Dose 17 GM; Start 08/26/16 at 09:00 Bisacodyl (Dulcolax) 10 mg DAILY PRN PO CONSTIPATION Last administered on 16:27; Admin Dose 10 MG; Start 08/26/16 at 08:00 Levothyroxine Sodium (Synthroid) 200 mcg DAILY@06 PO Last administered on 06:26; Admin Dose 200 MCG; Start 09/09/16 at 06:00 Liothyronine Sodium (Cytomel) 5 mcg BID PO Last administered on 09/26/16 08:24 ; Admin Dose 5 MCG; Start 09/16/16 at 09:00 Vitamin A/Vitamin D 1 applic 1 applic BID TOP Last administered on 09/26/16 08 :24; Admin Dose 1 APPLIC; Start 09/16/16 at 21:00 Piperacillin Sod/ Tazobactam Sod (Zosyn 3.375gm/ 100 ml (Pmx)) 100 ml @ 200 mls /hr Q8 IVPB Last administered on 09/26/16 14:46; Admin Dose 200 MLS/HR; Start 09/20/16 at 22:00 Acetaminophen/ Hydrocodone Bitart ([place] (5/325)) 1 tab DAILY PRN PO pain Last administered on 09/25/16 12:21; Admin Dose 1 TAB; Start 09/24/16 at 11:00 Doxycycline Hyclate (Vibramycin) 100 mg BID PO Last administered on 09/26/16 08:24; Admin Dose 100 MG; Start 09/24/16 at 21:00 Tramadol HCl (Ultram) 50 mg DAILY PRN PO Before PT Last administered on 12:28; Admin Dose 50 MG; Start 09/24/16 at 18:00 Miscellaneous Information (* Miscellaneous Pharmacy Order) PLEASE HOLD 0800 AM DOSE... ONCE XX ; Start 09/25/16 at 23:00; Stop 09/26/16 at 17:50 LUCY BRANDON NP Sep 26, 2016 15:17
[2016-09-26] MEDS ORDERED: LEVOFLOXACIN 750 MG TABLET PO SCH (15:30)
[2016-09-26] MEDS ORDERED: AMLO-145 PO (15:38)
[2016-09-26] MEDS ORDERED: ACET325T40 PO (15:38)
[2016-09-26] MEDS ORDERED: CYTO5 PO (15:38)
[2016-09-26] MEDS ORDERED: LOSA50TA2 PO (15:38)
[2016-09-26] MEDS ORDERED: IPRA3AMP HHN (15:38)
[2016-09-26] MEDS ORDERED: POLY17PO6 PO (15:38)
[2016-09-26] MEDS ORDERED: SYN1 PO (15:38)
[2016-09-26] MEDS ORDERED: VIT5OINT2 TOP (15:38)
[2016-09-26] MEDS ORDERED: PANT40TA4 PO (15:38)
[2016-09-26] MEDS ORDERED: LEVO750T25 PO (15:38)
[2016-09-26] MEDS ORDERED: TRAM50TA2 PO (15:38)
[2016-09-26] MEDS ORDERED: RIVA15TA PO (15:41)
[2016-09-26] MEDS ORDERED: RIVA20TA PO (15:41)
--- NOTE | 2016-09-26 15:42 | DS ---
Date/Time of Note Date/Time of Note DATE: 09/26/16 TIME: 15:41 Discharge Summary Admission/Discharge Info Admit Date/Time August 01, 2016 at 00:50 Discharge Date/Time Discharge Diagnosis cardiac arrest and renal failure from metabolic acidosis, resolved LE DVT proteus bacteremia likely from urinary source Patient Condition: Stable Consults cardiology, pulmonology, endocrine, ID Procedures 5.31 HD line placed 6.1 TTE Conclusions 1. Technically difficult study with poor endocardial visualization. 2. Normal left ventricular systolic function. Normal left ventricular cavity size. Mild concentric left ventricular hypertrophy. Ejection fraction is visually estimated at 60 %. Tissue Doppler/Mitral Doppler indices are consistent with impaired relaxation (Stage I diastolic dysfunction). 3. No significant valvular stenosis or regurgitation seen. 4. Unable to obtain RVSP due to minimal presence of tricuspid regurgitation. Inferior vena cava without respiratory collapse, however, patient on ventilator. LE dopplers 09.17.16 IMPRESSION: 1. Bilateral calf vein thrombosis. 2. The common femoral, femoral, and popliteal veins are normal bilaterally. Hx of Present Illness Chief complaint: Diarrhea 10 days, vomiting 1 day The patient is a 60-year-old male, presenting to the ER because of nausea, diarrhea for the last 10 days and vomiting 1 day, denies abdominal pain. He denies any hematemesis or hematochezia. Denies fever, chills, neck pain, chest pain, dyspnea, abdominal pain, dyspnea, diarrhea. The EMS gave him Zofran IV for nausea then check his glucose that was only 42, he was treated with glucose gel. He denies any recent travel or sick contacts. Allergies: NKDA Medications: Patient currently does not remember his medications. Hospital Course 61 M admitted in PEA arrest 2/2 severe metabolic acidosis with ROSC following CPR. Etiology of metabolic acidosis possibly from septic shock/lactic acidosis? from aspiration pna? Metabolic acidosis resolved following temporary HD; had fever 7.12, suspect 2/2 proteus UTI with hematologic spread, on antibiotics (pt transitioned from IV abx to PO levo at discharge). Also with several mos of L knee pain which he now says occ impairs ability to ambulate. Etio of pt's severe metabolic acidosis never fully elucidated. Regardless, renal function returned to normal and HD was stopped. Pt was on flomax/lasix for DD and presumed BPH however these were causing orthostatic hypotension and thus were stopped. Pt noted to have hypothyroid during his stay, started on both t3 and t4. Unclear if primary thyroid d/o v sick thyroid. PCP should recheck TFTs and re eval need for thyroid meds. Hospital stay cb LE DVT diagnosed 09.17.16, for which pt was started on Xarelto, pt should remain on until March 2017. Pt with L knee effusion which was aspirated by IR on 09.26. The results of this aspiration were pending at time of discharge Primary Care Provider Not On Staff Doctor Time spent on discharge: > 30 minutes Pending Labs Laboratory Tests Test 09/25/16 16:54 09/25/16 17:43 09/25/16 20:42 09/26/16 05:48 Prothrombin Time 26.8Sec (12.2-14.2) 24.6Sec (12.2-14.2) Prothrombin Time Ratio 2.1 1.9 INR International Normalized Ratio 2.44 2.19 Activated Partial Thromboplast Time 44.0Sec (25.0-35.0) 45.4Sec (25.0-35.0) Bedside Glucose 116mg/dL (70-220) 119mg/dL (70-220) White Blood Count 10.510^3/ul (4.8-10.8) Red Blood Count 3.1310^6/ul (4.70-6.10) Hemoglobin 9.2g/dl (14.0-18.0) Hematocrit 29.7% (42.0-52.0) Mean Corpuscular Volume 94.9fl (82.0-101.0) Mean Corpuscular Hemoglobin 29.4pg (29.0-33.0) Mean Corpuscular Hemoglobin Concent 31.0g/dl (32.0-37.0) Red Cell Distribution Width 15.8% (11.5-14.5) Platelet Count 16742^3/UL (140-415) Mean Platelet Volume 10.4fl (7.4-10.4) Neutrophils % 49.9% (39.0-77.0) Lymphocytes % 34.7% (15.0-51.0) Monocytes % 7.0% (0.0-11.0) Eosinophils % 7.2% (0.0-7.0) Basophils % 0.8% (0.0-2.0) Nucleated Red Blood Cells % 0.0/100WBC (0.0-0.0) Neutrophils # 5.310^3/ul (1.6-7.5) Lymphocytes # 3.710^3/ul (0.8-2.9) Monocytes # 0.710^3/ul (0.3-0.9) Eosinophils # 0.810^3/ul (0.0-0.5) Basophils # 0.110^3/ul (0.0-0.1) Nucleated Red Blood Cells # 0.010^3/ul (0.0-0.0) Sodium Level 141mmol/L (135-144) Potassium Level 5.1mmol/L (3.5-5.1) Chloride Level 103mmol/L (97-110) Carbon Dioxide Level 26mmol/L (21-31) Anion Gap 17 (8-16) Blood Urea Nitrogen 37mg/dl (7-20) Creatinine 1.21mg/dl (0.61-1.24) Glucose Level 88mg/dl (70-220) Calcium Level 11.7mg/dl (8.4-10.2) Total Bilirubin 0.0mg/dl (0.2-1.3) Direct Bilirubin 0.00mg/dl (0.00-0.20) Indirect Bilirubin 0.0mg/dl (0-1.1) Aspartate Amino Transf (AST/SGOT) 19IU/L (15-46) Alanine Aminotransferase (ALT/SGPT) 25IU/L (13-69) Alkaline Phosphatase 165IU/L (42-121) Total Protein 9.2g/dl (6.1-8.1) Albumin 3.7g/dl (3.3-4.9) Globulin 5.50g/dl (1.3-3.2) Albumin/Globulin Ratio 0.67 Parathyroid Hormone (Intact) pg/ml (7.5-53.5) Test 09/26/16 08:01 09/26/16 11:59 Bedside Glucose 94mg/dL (70-220) 137mg/dL (70-220) GABRIELA GONZALEZ MD Sep 26, 2016 15:42
--- NOTE | 2016-09-26 16:01 | RADRPT ---
PROCEDURE: Ultrasound guided left knee joint aspiration. CLINICAL INDICATION: Left knee pain and swelling. TECHNIQUE: Prior to the procedure, informed consent was obtained. Risks including bleeding and in fection were explained to the patient. The patient understood was willing to proceed. A procedural pause was performed. The patient's name, date of , and procedure to be performed were vermarianneie d. Using local anesthetic, sterile technique and ultrasound guidance, a 22-gauge needle was advanced in to the left knee joint suprapatellar bursa. Approximately 3 ml of serosanguineous fluid was aspirat ed and sent for laboratory analysis. The patient tolerated the procedure well. COMPARISON: None. FINDINGS: Images demonstrate the needle within the left knee joint suprapatellar bursa. IMPRESSION: 1. Satisfactory ultrasound-guided left knee joint aspiration. RPTAT: QQ .Chalo Tapia MD, Date Time Electronically viewed and signed by .Chalo Tapia MD, on 09/26/2016 16:01 .R/
[2016-09-26 16:48] LABS: FLD MN% 43.6 %; FLD PMN% 56.4 %; FLD RBC 384 /uL; FLD WBC 2975 /cmm
[2016-09-26 17:03] LABS: FLD CLARITY BLOODY; FLD COLOR RED; FLD TYPE OTHERS
[2016-09-26 17:04] LABS: FLD VOLUME 0.8 ml
[2016-09-26] MEDS ORDERED: LIDOCAINE 1% (MPF) 5 ML VIAL ONE (18:03)
--- NOTE | 2016-09-27 09:51 | QN ---
Documentation Comment Post discharge follow up Knee aspirate from yesterday: negative for crystals (spoke to the lab), gram stain negative, PMN % low. Suspect OA as origin I spoke with patient's sister Elle [phone] and relayed these test results [facility] and informed [facility] of these test results GABRIELA GONZALEZ MD Sep 27, 2016 09:51
[2016-10-10] MEDS ORDERED: RIVAROXABAN 20 MG TABLET PO SCH (18:00)
== END 2016-09-26 18:55 | DRG 870 ==
LOC: E/R 21:44 → MS4 08-01 00:50 → ICU 08-01 03:31 → MS4 08-16 14:02 → MS2 08-19 15:35
PROVIDERS: ADMIT Family Medicine; ATTEND Family Medicine
PROC: 06HN33Z Insertion of Infusion Device into Left Femoral Vein, Percutaneous Approach (ICD-10-PCS; principal; 2016-08-01)
PROC: 5A1955Z Respiratory Ventilation, Greater than 96 Consecutive Hours (ICD-10-PCS; 2016-08-01)
PROC: 5A1D60Z (ICD-10-PCS; 2016-08-01)
PROC: 0BH17EZ Insertion of Endotracheal Airway into Trachea, Via Natural or Artificial Opening (ICD-10-PCS; 2016-08-01)
PROC: 06HM33Z Insertion of Infusion Device into Right Femoral Vein, Percutaneous Approach (ICD-10-PCS; 2016-08-01)
PROC: 30233N1 Transfusion of Nonautologous Red Blood Cells into Peripheral Vein, Percutaneous Approach (ICD-10-PCS; 2016-08-06)
PROC: 02HV33Z Insertion of Infusion Device into Superior Vena Cava, Percutaneous Approach (ICD-10-PCS; 2016-08-11)
PROC: 0S9D3ZZ Drainage of Left Knee Joint, Percutaneous Approach (ICD-10-PCS; 2016-09-26)
DX: A41.9 Sepsis, unspecified organism (principal); J96.00 Acute respiratory failure, unspecified whether with hypoxia or hypercapnia; N17.0 Acute kidney failure with tubular necrosis; G92 Toxic encephalopathy; J69.0 Pneumonitis due to inhalation of food and vomit; I50.41 Acute combined systolic (congestive) and diastolic (congestive) heart failure; R65.21 Severe sepsis with septic shock; R57.0 Cardiogenic shock; J80 Acute respiratory distress syndrome; J81.1 Chronic pulmonary edema; I46.9 Cardiac arrest, cause unspecified; E87.2 Acidosis; N39.0 Urinary tract infection, site not specified; I82.612 Acute embolism and thrombosis of superficial veins of left upper extremity; E87.1 Hypo-osmolality and hyponatremia; E46 Unspecified protein-calorie malnutrition; I11.0 Hypertensive heart disease with heart failure; E87.6 Hypokalemia; F10.10 Alcohol abuse, uncomplicated; D64.9 Anemia, unspecified; E03.9 Hypothyroidism, unspecified; M10.9 Gout, unspecified; E83.9 Disorder of mineral metabolism, unspecified; D63.8 Anemia in other chronic diseases classified elsewhere; K76.0 Fatty (change of) liver, not elsewhere classified; E16.2 Hypoglycemia, unspecified; K52.9 Noninfective gastroenteritis and colitis, unspecified; R40.2433 Glasgow coma scale score 3-8, at hospital admission; E83.42 Hypomagnesemia; M25.462 Effusion, left knee; E83.51 Hypocalcemia; E66.9 Obesity, unspecified; Z68.36 Body mass index [BMI] 36.0-36.9, adult; R19.5 Other fecal abnormalities; E09.9 Drug or chemical induced diabetes mellitus without complications; T38.0X5A Adverse effect of glucocorticoids and synthetic analogues, initial encounter; Y92.239 Unspecified place in hospital as the place of occurrence of the external cause; Y90.6 Blood alcohol level of 120-199 mg/100 ml; B35.1 Tinea unguium; B96.4 Proteus (mirabilis) (morganii) as the cause of diseases classified elsewhere
CPT/HCPCS: 31500; 36415; 36430; 36569; 36600; 71010; 71275; 73560; 74176; 76705; 76775; 76937; 80048; 80053; 80061; 80076; 80202; 80306; 80307; 81001; 81003; 82043; 82140; 82270; 82330; 82533; 82565; 82607; 82746; 82803; 82962; 83036; 83525; 83605; 83690; 83735; 83970; 84100; 84155; 84300; 84425; 84436; 84439; 84443; 84479; 84484; 84520; 84681; 85025; 85610; 85730; 86022; 86337; 86674; 86803; 86850; 86900; 86901; 86920; 87040; 87045; 87070; 87075; 87081; 87086; 87177; 87205; 87340; 89051; 89060; 90935; 92526; 92610; 92950; 93005; 93306; 93970; 93971; 94002; 94003; 94640; 94664; 94770; 96374; 97110; 97116; 97162; 97166; 97530; 97542; J1940; C1751; C1769; C9113; J0171; J0360; J0610; J0692; J0696; J0885; J1170; J1644; J1650; J1815; J2060; J2250; J2370; J2405; J2543; J2920; J2930; J3010; J3370; J3411; J3475; J3480; J7030; J7040; J7050; J7060; J7070; P9016; P9047; Q9967

== ENCOUNTER 2016-09-29 05:23 | Emergency (ER) | payer OTHER, MEDICAID ==
[~2016-09-29] VITALS: Ht 182.9 cm; Wt 90.0 kg
[~2016-09-29 05:23] MED LIST: ACET325T40 PO; AMLO-145 PO; CYTO5 PO; IPRA3AMP HHN; LEVO750T25 PO; LOSA50TA2 PO; PANT40TA4 PO; POLY17PO6 PO; RIVA15TA PO; RIVA20TA PO; SYN1 PO; TRAM50TA2 PO; VIT5OINT2 TOP
[2016-09-29 05:30] VITALS: Ht 182.9 cm; Wt 90.0 kg
--- NOTE | 2016-09-29 05:47 | ERD ---
ER Documentation Chief Complaint Date/Time DATE: 09/29/16 TIME: 05:41 Chief Complaint Nose bleed woken up from it HPI This is a 61-year-old male who presents to the emergency room from his [facility] for evaluation of a nosebleed. The patient states that he woke up and noticed that his nose is bleeding. The patient does state he is on an unknown blood thinner. He denies any trauma. He states that he has a history of a previous cardiac arrest, and high blood pressure. EMS was called and the patient was transported to the emergency room. The patient denying active pain right now ROS All systems reviewed and are negative except as per history of present illness. Medications Home Meds Active Scripts Rivaroxaban* (Xarelto*) 15 Mg Tablet, 15 MG PO BID WITH MEALS for 30 Days, #60 TAB DO NOT START TAKING THESE UNTIL OCTOBER 10 Prov:GABRIELA GONZALEZ MD 09/26/16 Rivaroxaban* (Xarelto*) 20 Mg Tablet, 20 MG PO WITH DINNER for 13 Days, #13 TAB finish taking these before moving on to the high dose pills on october 10 Prov:GABRIELA GONZALEZ MD 09/26/16 Losartan Potassium* (Cozaar*) 50 Mg Tablet, 50 MG PO DAILY for 30 Days, #60 TAB Prov:GABRIELA GONZALEZ MD 09/26/16 Amlodipine Besylate* (Amlodipine Besylate*) 5 Mg Tablet, 5 MG PO BID for 30 Days , #60 TAB Prov:GABRIELA GONZALEZ MD 09/26/16 Polyethylene Glycol* (Miralax*) 17 Gm Powd.pack, 17 GM PO BID for 30 Days, #30 Prov:GABRIELA GONZALEZ MD 09/26/16 Pantoprazole* (Pantoprazole*) 40 Mg Tablet.dr, 40 MG PO DAILY@06 for 30 Days, # 30 Prov:GABRIELA GONZALEZ MD 09/26/16 Vits A & D/White Pet/Lanolin (Vitamin A & D Grx) 5 Gm Oint.pack, 1 APPLIC TOP BID for 30 Days, #30 Prov:GABRIELA GONZALEZ MD 09/26/16 Liothyronine Sodium (Cytomel) 5 Mcg Tab, 5 MCG PO BID for 30 Days, #60 TAB Prov:GABRIELA GONZALEZ MD 09/26/16 Levothyroxine Sodium (Levothroid) 100 Mcg Tablet, 200 MCG PO DAILY@06 for 30 Days, #30 TAB Prov:GABRIELA GONZALEZ MD 09/26/16 Tramadol HCl (Tramadol HCl) 50 Mg Tablet, 50 MG PO DAILY Y for Before PT for 30 Days, #30 TAB Prov:GABRIELA GONZALEZ MD 09/26/16 Acetaminophen (MAPAP) 325 Mg Tablet, 650 MG PO Q6H Y for PAIN LEVEL 1-3 OR FEVER for 30 Days, #30 TAB Prov:GABRIELA GONZALEZ MD 09/26/16 Ipratropium-Albuterol (Ipratropium-Albuterol) 0.5-3 Mg/3 Ml Ampul.neb, 3 ML HHN Q6HWA RESP THERAPY for 30 Days, #30 Prov:GABRIELA GONZALEZ MD 09/26/16 Levofloxacin* (Levaquin*) 750 Mg Tablet, 750 MG PO DAILY@06 for 3 Days, #3 TAB Prov:GABRIELA GONZALEZ MD 09/26/16 Allergies Allergies: Coded Allergies: No Known Drug Allergies (Verified Allergy, Unknown, 08/18/16) PMhx/Soc History of Surgery: No Anesthesia Reaction: No Hx Neurological Disorder: No Hx Respiratory Disorders: No Hx Cardiac Disorders: Yes (HTN) Hx Psychiatric Problems: No Hx Miscellaneous Medical Probl: Yes (extended hosp stay, cardiac arrest, hypoglycemia, intubated/extubated, HTN,) Hx Alcohol Use: No Hx Substance Use: No Hx Tobacco Use: No Smoking Status: Never smoker Physical Exam Vitals Vital Signs Date Time Temp Pulse Resp B/P Pulse Ox O2 Delivery O2 Flow Rate FiO2 09/29/16 05:30 98.1 114 20 127/81 96 Physical Exam INITIAL VITAL SIGNS: Reviewed by me GENERAL: The patient is well developed and appropriate for usual state of health in no apparent distress HEENT: Right nare with mild drainage of blood, no septal hematoma noted, left nare and nasal passages clear, pupils equal, round, and reactive to light. EOMI. There is no scleral icterus. NECK: C-spine is soft and supple, there is no meningismus. There is no cervical lymphadenopathy. LUNGS: Clear to auscultation bilaterally. There are no rales, wheezes or rhonchi. HEART: Regular rate and rhythm, no murmurs, clicks, rubs or gallops. ABDOMEN: Soft, non-tender, non-distended. There are bowel sounds in all four quadrants. No rebound or guarding. EXTREMITIES: There is no peripheral cyanosis or edema. No focal swelling or erythema. NEUROLOGICAL: The patient moves all four extremities with 5/5 strength. Cranial nerves II - XII are intact. Normal gait. Alert and oriented SKIN: There is no apparent rash or petechiae. HEME/LYMPHATIC: There is no evidence of excessive bruising or lymphedema. PSYCHIATRIC: The patient does not appear anxious or depressed. Procedures/MDM This 61-year-old male presents to the ER for evaluation of a nosebleed. When I evaluated this patient he was dynamically stable, nontoxic appearing. The patient did have minor bleeding from the anterior portion of the right nare. Pressure was applied however this patient continued to bleed. The patient is on Plavix. I did pack this patient's nose with a Rhino Rocket. The patient was advised to return to the emergency room in 48 hours for removal of the packing and he verbalized understanding. He tolerated the procedure well, no active bleeding. No signs of posterior bleeding. Departure Diagnosis: Primary Impression: Epistaxis Condition: Stable MILAGROS SAHU DO Sep 29, 2016 05:47
[2016-09-29 06:19] VITALS: BP 119/68; PULSE 77; RESP 20
== END 2016-09-29 06:20 | disposition home or self-care (01) ==
LOC: FTE 05:23 → E/R 06:20
DX: R04.0 Epistaxis (principal); I10 Essential (primary) hypertension; Z79.01 Long term (current) use of anticoagulants
CPT/HCPCS: 82962; 99282